=== PATIENT | male | born 1940 | race Caucasian/White ===

== ENCOUNTER 2016-05-30 20:07 | Inpatient (IN) | payer MEDICARE, MEDICAID ==
[~2016-05-30] VITALS: Ht 182.9 cm; Wt 91.2 kg
[~2016-05-30 20:07] MED LIST: ACHYD1T PO; ALPR.25T PO; ALPR0.25 PO; ASP81CT PO; ASP81TEC PO; ASPI-587 PO; ASPI-86; ATOR10TA66 PO; ATRV10T PO; Acetaminophen PO; Aspirin PO; Atorvastatin Calcium PO; BACL10TA PO; CILO100T PO; CLAR-19 PO; CLOP75TA; CLOP75TA PO; CLOP75TA28 PO; CLOP75TA69 PO; CLPD75T PO; DGX.125T PO; DICL100G13 TOP; DIGO-8 PO; DIGO125T PO; DIGO125T91 PO; DIGO250T PO; DIGO250T15 PO; DIGOX PO; ENAL10TA PO; ENAL20TA; ENAL20TA PO; ENAL5TAB PO; ENLP10T; ENLP5T PO; ESOM40SU; EZET10TA5; EZET10TA5 PO; FAMO20TA5 PO; FENO134C PO; FENO134C2 PO; FEXO180T PO; FLUT16SP22 NSEACH; Famotidine PO; GABA-488 PO; GBPN100C PO; GI COCKTAIL; GLIP10TA13 PO; GLIP5TAB13; GLIP5TAB13 PO; GLPZ5T; Glipizide PO; HYDR-1231 PO; HYDR-34 PO; HYDR-3714 PO; HYDR-3812 PO; HYDR-3816 PO; HYDR-707 PO; HYDR-757 PO; HYDR1TAB PO; HYDR1TAB85 PO; HYOS0.1216 PO; HYOS0.3710 PO; IBP800T PO; IBUP200C PO; INSR1U SC; INSU100I29 SQ; INSU100I5 SC; INSU100I5 SQ; INSU100V5 SQ; LEVE1U SQ; LORA10TA7 PO; LOSA25TA15; METF-380 PO; METF500T PO; METO-310 PO; METO-333 PO; METO25TA PO; METO25TA2 PO; METO25TA6 PO; MNTL10T PO; MONT10TA21 PO; MONT10TA24 PO; MTF500T; MTF500T PO; MTP25TSR; MTP25TSR PO; Montelukast Sodium PO; NAPR250T2 PO; NF-ESOM40C; NF-ESOM40C PO; NF-SKEL800 PO; NFPRILOC40 PO; NITR0.4T SL; NITR0.4T50; NTR.4SL; NTR.4SL PO; NTR.4SL SL; OMEG1CAP51 PO; OMEG1CAP74 PO; OMEP40CA36 PO; OMG1KC; ONDA4TAB11 PO; ONDA8TAB9 PO; Omega 3 Polyunsat Fatty Acids PO; PANT40SU PO; PANT40TA PO; PANT40TA2 PO; PANT40TA3 PO; PENT400T2 PO; PNT40TEC PO; PRAV80TA2 PO; PRD20T PO; PRED-501 PO; PROM25SU10 RC; PROP1TAB77 PO; ROPI1TAB PO; ROPI1TAB2 PO; RT-ALBUINH IH; SCR1T1 PO; SITA100T PO; SITA100T12 PO; SITAGLIPTIN PHOSPHATE PO; SUCR1ORA5 PO; TAMS0.4C2 PO; TICA90TA PO; TRAM50TA2 PO; TRAZ-28 PO; TRIA16.5 NS; TRM50T PO; [UNRECOGNIZED DRUG - REMARK]; [UNRECOGNIZED DRUG - REMARK] PO; aspirin
--- OUTSIDE RECORDS SUMMARY | 2016-05-30 20:13 | XMS REPORT | Continuity of Care Document ---
Author Author [facility] Organization [facility] Address Unknown Phone Unavailable Support Name Relationship Address Phone HERONLLUVIA KIM Gabe RIVERA Caregiver [address] [place] [address] DMITRY MEZA MD Caregiver [address] [facility] [place] [address] TYLER TOLENTINO Next Of Kin [address] [place] [address] Insurance Providers Payer Name Policy Number Subscriber Name Relationship Wps Medicare [id number] Castro Tolentino 20 Self / Same As Patient [facility] [employer] [id number] Castro Tolentino Self / Same As Patient Advance Directives Directive Response Recorded Date/Time Advance Directives No 03/19/14 7:42am Health Care Power of Creeler No 03/19/14 7:42am Organ Donor No 03/19/14 7:42am Resuscitation Status Full Code 03/19/14 7:42am Chief Complaint and Reason for Visit Chief Complaint PAD,CAD,DIABETES,HTN Reason for Visit PAD (peripheral artery disease) Problems Medical Problems Problem Onset Date Status Diarrhea Unknown Active Epigastric pain Unknown Active Reflux Unknown Active PAD (peripheral artery disease) Unknown Active Medications Medication Dose Route Sig Days/Qty Instructions Order Date Discontinued Date Status Nitroglycerin 08/14/08 06/17/09 Discontinued [aspirin] 08/14/08 06/17/09 Discontinued Clopidogrel Bisulfate 75 Mg PO SUNDAY, SUNDAY, Sunday08/14/08 Discontinued Metformin HCl 08/14/08 06/17/09 Discontinued Glipizide (Glucotrol) 08/14/08 06/17/09 Discontinued Enalapril Maleate 08/14/08 06/17/09 Discontinued Metoprolol Succinate 08/14/08 06/17/09 Discontinued Ezetimibe 08/14/08 06/17/09 Discontinued Esomeprazole Mag Trihydrate 08/14/08 07/03/09 Discontinued Tramadol HCl 50 - 100 Mg PO FOUR TIMES DAILY 40 Qty 08/14/08 06/17/09 Discontinued Metaxalone 800 Mg PO THREE TIMES A DAY 30 Qty 08/14/08 06/17/09 Discontinued Nitroglycerin 09/15/08 06/17/09 Discontinued Aspirin 09/15/08 06/17/09 Discontinued Clopidogrel Bisulfate 09/15/08 06/17/09 Discontinued Metformin HCl 09/15/08 06/17/09 Discontinued Glipizide 09/15/08 06/17/09 Discontinued Enalapril Maleate 09/15/08 06/17/09 Discontinued Metoprolol Succinate 09/15/08 06/17/09 Discontinued Ezetimibe 09/15/08 06/17/09 Discontinued Esomeprazole Magnesium 09/15/08 06/17/09 Discontinued Fish Oil 09/15/08 03/08/10 Discontinued Acetaminophen/Hydrocodone Bitart 1 - 2 Each PO Q4HR PRN 20 Qty 06/17/09 Discontinued Acetaminophen/Hydrocodone Bitart 1 Each PO Q 4 - 6 HR PRN 30 Qty 06/17/09 Discontinued Nitroglycerin 0.4 Mg PO NEEDED 11/12/08 05/31/10 Discontinued Aspirin 81 Mg PO DAILY 11/12/08 11/03/13 Discontinued Clopidogrel Bisulfate 11/12/08 06/17/09 Discontinued Metformin HCl (Glucophage) 500 Mg PO TWICE A DAY 11/12/08 12/18/12 Discontinued Glipizide (Glucotrol) 5 Mg PO DAILY 11/12/08 05/31/10 Discontinued Enalapril Maleate 20 Mg PO TWICE A DAY 11/12/08 11/03/13 Discontinued Metoprolol Succinate 11/12/08 03/08/10 Discontinued Ezetimibe 10 Mg PO BEDTIME 11/12/08 06/21/11 Discontinued Esomeprazole Magnesium 11/12/08 06/17/09 Discontinued Insulin Determir 25 Unit SQ BEDTIME 07/03/09 11/03/13 Discontinued Omeprazole 40 Mg PO DAILY 07/03/09 03/09/10 Discontinued Losartan Potassium 07/03/09 08/31/09 Discontinued Hyoscyamine Sulfate 1 Each PO GIVE EVERY 6 HR ON SCHEDULE 20 Qty 08/31/09 Discontinued Propoxyphene HCl/Acetaminophen 1 Each PO Q 4 - 6 HRS PRN 60 Qty 08/31/09 Discontinued Ibuprofen 800 Mg PO THREE TIMES A DAY 11/11/09 03/08/10 Discontinued Acetaminophen/Hydrocodone Bitart (Vicodin Hp) 1 Each PO Q 4 - 6 HRS PRN 11/11/09 03/08/10 Discontinued Gabapentin 100 Mg PO BID PRN 11/11/09 03/08/10 Discontinued Clarithromycin 1,000 Mg PO DAILY 02/16/10 03/08/10 Discontinued Fexofenadine HCl 180 Mg PO DAILY 02/16/10 03/08/10 Discontinued Promethazine HCl 1 Supp RC FOUR TIMES DAILY 6 Qty 02/17/10 03/08/10 Discontinued Acetaminophen/Hydrocodone Bitart 1 Each PO Q4HR PRN 20 Qty 02/17/10 Discontinued Ondansetron 4 Mg PO EVERY 6 HOURS PRN 14 Qty 02/18/10 03/08/10 Discontinued Mcfarland-3/Dha/Epa/Fish Oil 2,000 Mg PO TWICE A DAY 03/08/10 03/08/10 Discontinued Fenofibrate (Lofibra) 134 Mg PO DAILY 03/08/10 11/03/13 Discontinued Metoprolol Succinate (Toprol Xl) 1 Each PO DAILY 03/09/10 04/17/12 Discontinued Nitroglycerin 1 Tab PO NEEDED 05/27/10 12/18/12 Discontinued Clopidogrel Bisulfate 75 Mg PO DAILY 05/27/10 06/03/11 Discontinued Ezetimibe 10 Mg PO BEDTIME 05/27/10 06/03/11 Discontinued Alprazolam 0.5 Tab PO DAILY TAKES 1/2 (0.25MG) TABLET DAILY 05/27/10 04/23/13 Discontinued Acetaminophen/Hydrocodone Bitart 1 - 2 Each PO Q4HR PRN 10 Qty 06/21/11 Discontinued Glipizide (Glucotrol) 2.5 - 5 Mg PO DAILY PRN 06/21/11 12/24/12 Discontinued [Gi Cocktail] PRN 11/29/11 04/17/12 Discontinued Montelukast Sodium 10 Mg PO DAILY 30 Qty 03/15/12 12/18/12 Discontinued Triamcinolone Acetonide 16.5 Gm NS TWICE A DAY 03/15/12 12/18/12 Discontinued Pantoprazole Sodium 40 Mg PO DAILY 04/19/12 12/18/12 Discontinued Atorvastatin Calcium 10 Mg PO DAILY 04/19/12 12/18/12 Discontinued Clopidogrel Bisulfate 75 Mg PO DAILY 04/19/12 11/03/13 Discontinued Digoxin (Lanoxin) 250 Mcg PO DAILY 04/19/12 11/03/13 Discontinued Metoprolol Succinate 25 Mg PO DAILY 04/19/12 04/23/13 Discontinued Metformin HCl (Glucophage) 1,000 Mg PO TWICE A DAY TAKES 2 (500MG) TABLETS TWICE DAILY 12/18/12 09/28/13 Discontinued Nitroglycerin 0 SL NEEDED 12/18/12 03/19/14 Discontinued Esomeprazole Magnesium 40 Mg PO DAILY 12/18/12 12/24/12 Discontinued Fluticasone Propionate 1 Spr NSEACH TWICE A DAY 12/18/12 04/23/13 Discontinued [place]farland-3 Fatty Acids/Fish Oil 2,000 Mg PO TWICE A DAY TAKES 2 (1000MG) CAPSULES TWICE DAILY 12/18/12 03/20/14 Discontinued [Green Lizard] NEEDED 12/18/12 04/23/13 Discontinued Hydrocodone Bit/Acetaminophen 1 Tab PO EVERY 6 HOURS PRN PAIN NEEDED FOR PAIN 12/24/12 08/05/13 Discontinued Pantoprazole Sodium 40 Mg PO DAILY 04/23/13 08/05/13 Discontinued Sitagliptin Phosphate 100 Mg PO DAILY 04/23/13 09/28/13 Discontinued Atorvastatin Calcium 10 Mg PO BEDTIME 04/23/13 08/05/13 Discontinued Montelukast Sodium 10 Mg PO DAILY 04/23/13 08/05/13 Discontinued Glipizide (Glucotrol) 5 Mg PO TWICE A DAY 04/23/13 03/20/14 Discontinued Sucralfate 1 Gm PO BEFORE MEALS AND AT BEDTIME 04/23/13 08/05/13 Discontinued Pantoprazole Sodium 40 Mg PO 04/23/13 08/05/13 Discontinued Hyoscyamine Sulfate (Levbid) 1 Each PO THREE TIMES A DAY 04/23/13 Discontinued Famotidine (Pepcid) 1 Each PO TWICE A DAY 60 Qty 07/19/13 08/05/13 Discontinued Ondansetron HCl 8 Mg PO EVERY 6 HOURS PRN NAUSEA/VOMITING 10 Qty 08/05/13 Discontinued Alprazolam 0.125 Mg PO DAILY 08/05/13 11/03/13 Discontinued [Green Lizard] 15 Ml PO DAILY PRN HEARTBURN PRN HEARTBURN 08/05/13 Discontinued Metoprolol Succinate 25 Mg PO DAILY 08/05/13 11/03/13 Discontinued Acetaminophen/Hydrocodone Bitart 1 Each PO Q 4 - 6 HRS PRN 60 Qty CALLED IN TO [facility] 08/12/13 11/03/13 Discontinued Famotidine (Pepcid) 1 Each PO TWICE A DAY 30 Qty 09/14/13 11/03/13 Discontinued Omeprazole 40 Mg PO DAILY 30 Qty 09/14/13 11/03/13 Discontinued Prednisone 40 Mg PO DAILY 8 Qty 09/28/13 11/03/13 Discontinued Hydrocodone Bit/Acetaminophen 1 Tab PO EVERY 4HRS PRN PAIN 10 Qty 09/2811/03/13 Discontinued Famotidine (Pepcid) 20 Mg PO TWICE A DAY 11/03/13 03/20/14 Discontinued Pantoprazole Sodium 40 Mg PO DAILY 11/03/13 03/20/14 Discontinued Metformin HCl 1,000 Mg PO TWICE A DAY 11/03/13 03/19/14 Discontinued Ropinirole Hcl 2 Mg PO BEDTIME TAKES 2 (1MG) TABLETS AT BEDTIME 03/20/14 Discontinued Insulin Determir 27 Units SC BEDTIME 11/03/13 03/20/14 Discontinued Montelukast Sodium 10 Mg PO DAILY 11/03/13 03/20/14 Discontinued Fenofibrate,Micronized 134 Mg PO BEDTIME 11/03/13 03/20/14 Discontinued Digoxin 250 Mcg PO DAILY 11/03/13 02/26/14 Discontinued Atorvastatin Calcium 10 Mg PO DAILY 11/03/13 03/20/14 Discontinued Diclofenac Sod TOP TWICE A DAY PRN BACK PAIN 11/03/13 02/26/14 Discontinued Sitagliptin Phosphate 100 Mg PO DAILY 11/03/13 03/20/14 Discontinued Enalapril Maleate 5 Mg PO TWICE A DAY 11/03/13 03/20/14 Discontinued Metoprolol Tartrate 25 Mg PO DAILY 11/03/13 03/20/14 Discontinued Clopidogrel Bisulfate 75 Mg PO DAILY 11/03/13 11/03/13 Discontinued [digox] 125 Mcg PO DAILY 02/26/14 03/19/14 Discontinued Clopidogrel Bisulfate 75 Mg PO DAILY 02/26/14 03/20/14 Discontinued Aspirin 81 Mg PO DAILY 02/26/14 Active Ibuprofen (Motrin) 400 Mg PO EVERY 6 HOURS PRN PAIN 02/26/14 Active Nitroglycerin 0.4 Mg SL DIRECTED PRN CHEST PAIN TAKE 1 TABLET EVERY 5 MINUTES X 3 DOSES NEEDED FOR CHEST PAIN 03/19/14 03/20/14 Discontinued Digoxin (Lanoxin) 125 Mcg PO DAILY 03/19/14 03/20/14 Discontinued [Acetaminophen] 500 Mg PO FOUR TIMES DAILY PRN MILD PAIN 03/20/14 Active [Aspirin] 81 Mg PO DAILY 03/20/14 Active [Atorvastatin Calcium] 10 Mg PO DAILY@2100 03/20/14 Active Clopidogrel Bisulfate 75 Mg PO DAILY 30 Qty 03/20/14 Active Digoxin 0.125 Mg PO DAILY 30 Qty 03/20/14 Active Enalapril Maleate 5 Mg PO TWICE A DAY 60 Qty 03/20/14 Active [Famotidine] 20 Mg PO TWICE A DAY 03/20/14 Active Fenofibrate 134 Mg PO BEDTIME 30 Qty 03/20/14 Active [Glipizide] 5 Mg PO TWICE A DAY WITH MEALS 03/20/14 Active Insulin Human Regular 0 Unit SC BEFORE MEALS AND AT BEDTIME 1 Qty 03/20 Active Insulin Detemir 27 Unit SQ BEDTIME 1 Qty 03/20/14 Active Metoprolol Tartrate 25 Mg PO DAILY 30 Qty 03/20/14 Active [Montelukast Sodium] 10 Mg PO DAILY 03/20/14 Active Nitroglycerin 0.4 Mg SL DIRECTED PRN CHEST PAIN 20 Qty 03/20/14 Active [[place] 3 Polyunsat Fatty Acids] 2,000 Mg PO TWICE A DAY WITH MEALS Active Pantoprazole Sod 40 Mg PO DAILY 60 Qty 03/20/14 Active Ropinirole Hcl 2 Mg PO BEDTIME 30 Qty 03/20/14 Active [Sitagliptin Phosphate] 100 Mg PO DAILY 03/20/14 Active Social History Social History Problem Response Recorded Date/Time Alcohol Use Denies Use 11/03/2013 9:55am Recreational Drug Use No 11/03/2013 9:55am Recent Foreign Travel No 11/03/2013 9:55am Recent Infectious Disease Exposure No 11/03/2013 9:55am Hospitalization with Isolation Contact 11/24/2013 4:11pm Sexually Transmitted Disease No 11/03/2013 9:55am HIV/AIDS No 11/03/2013 9:55am Smoking Status Former Smoker 03/19/2014 7:42am Do you dip or chew tobacco? No 03/19/2014 7:42am Query Response Start Date Stop Date Smoking Status Former Smoker 03/19/1997 Hospital Discharge Instructions Patient Instructions Physician Instructions New, Converted or Re-Newed RX: Other Patient Instructions: follow-up with Dr. 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 Stiles Goal: turned to normal activities and usual health. Return to [facility]: if there is any bleeding from the groin Discharge Diet: ADA Diet, Cardiac Diet Drink 6-8 Glasses/Fluids/Day: Yes Activity as Tolerated: Yes Appt. to Start Cardiac Rehab: No Plan of Care Discharge Date 03/20/14 3:03pm Disposition 01 HOME, SELF-CARE Instructions/Education Provided CARDIAC CATH DISCHARGE INSTRUC Forms Provided Follow-Up Fax PDI Cardiac Cath Prescriptions See Medications Section Functional Status Query Response Date Recorded Patient Orientation Person Place Time Situation March 20, 2014 3:14pm Comprehension Ability Understands Concepts March 20, 2014 12:00pm Allergies, Adverse Reactions, Alerts Allergen Type Severity Reaction Status Last Updated Penicillins ([id number]) Allergy Unknown Active 08/03/05 morphine Allergy Unknown Active 08/03/05 naproxen ([id number]) Allergy Mild Active 08/14/08 Amoxicillin ([id number]) Allergy Unknown Active 08/03/05 Diclofenac ([id number]) Allergy Mild Active 09/15/08 celecoxib Allergy Mild Active 08/14/08 Rosuvastatin Allergy Mild Active 08/14/08 Immunizations Name Given Type Date of Pneumonia Vaccine 02/22/12 Historical Date of Influenza Vaccine 03/19/13 Historical Hepatitis A No Historical Hepatitis B No Historical Tetanus Booster (TDap) Less than 5yrs Historical pneumococcal polysaccharide PPV23 03/20/14 Administered influenza, split (incl. purified surface antigen) 03/20/14 Administered pneumococcal polysaccharide PPV23 03/20/14 Administered influenza, split (incl. purified surface antigen) 03/20/14 Administered Vital Signs Acute Vital Signs Vital Response Date/Time Temperature (Fahrenheit) 97.1 degrees F (97.6 - 99.5) Temperature (Calculated Celsius) 36.34183 degrees C (36.4 - 37.5) Temperature Source Tympanic Pulse Rate (adult) 66 bpm (60 - 90) Respiratory Rate 20 bpm (12 - 24) O2 Sat by Pulse Oximetry 98 % (88 - 100) Blood Pressure 172/82 mm Hg Pain Pain Intensity 1 Height (Feet) 6 feet Height (Inches) 2.00 inches Height (Calculated Centimeters) 187.632515 cm Weight (Pounds) 187 pounds Weight (Calculated Grams) 92260.774 gm Weight (Calculated Kilograms) 84.393823 kilograms Calculated BMI 24.01 Results Test Source Date Result Interp. Ref. Range Comments Acetaminophen Screen February 18, 2010 7:25am NEGATIVE - APAP= ACETAMINOPHEN/PARACETAMOL Activated Partial Thromboplast Time November 03, 2013 5:18am 24 SEC N 24-35 Has specimen been collected/obtained? Y Alanine Aminotransferase (ALT/SGPT) November 03, 2013 5:18am 44 U/L N 30-65 Has specimen been collected/obtained? Y Albumin November 03, 2013 5:18am 3.8 G/DL N 3.4-5.0 Has specimen been collected/obtained? Y Alkaline Phosphatase November 03, 2013 5:18am 86 U/L N 50-136 Has specimen been collected/obtained? Y Amylase Level September 14, 2013 5:00pm 59 U/L N 25-115 Anisocytosis October 06, 2008 1:49am SLIGHT - Aspartate Amino Transf (AST/SGOT) November 03, 2013 5:18am 24 U/L N 15-37 Has specimen been collected/obtained? Y B-Type Natriuretic Peptide December 18, 2011 5:36am 7.1 PG/ML N 5.0-100.0 BUN/Creatinine Ratio November 03, 2013 5:18am 6 - Has specimen been collected/obtained? Y Band Neutrophils June 17, 2009 2:10am 0 % - Basophils # (Auto) November 03, 2013 5:18am 0.1 10^3/uL N 0.0-0.1 Has specimen been collected/obtained? Y Basophils % (Manual) June 17, 2009 2:10am 0 % - Basophils (%) (Auto) November 03, 2013 5:18am 1 % N 0-10 Has specimen been collected/obtained? Y Blood Urea Nitrogen November 03, 2013 5:18am 9 MG/DL N 7-18 Has specimen been collected/obtained? Y Calcium Level November 03, 2013 5:18am 9.3 MG/DL N 8.5-10.1 Has specimen been collected/obtained? Y Carbon Dioxide Level November 03, 2013 5:18am 22 MMOL/L N 21-32 Has specimen been collected/obtained? Y Chloride Level November 03, 2013 5:18am 100 MMOL/L L 101-110 Has specimen been collected/obtained? Y Cholesterol Level November 04, 2013 5:19am 107 MG/DL N -200 Has specimen been collected/obtained? Y Creatine Kinase MB November 03, 2013 5:18am 0.9 NG/ML N 0.0-3.6 Has specimen been collected/obtained? Y Creatinine November 03, 2013 5:18am 1.6 MG/DL H 0.6-1.3 Has specimen been collected/obtained? Y Digoxin Level August 05, 2013 10:35am 1.1 NG/ML N 0.9-2.0 Direct Bilirubin April 17, 2011 11:55am 0.1 MG/DL N 0.0-0.30 Eosinophils # (Auto) November 03, 2013 5:18am 0.3 10^3/uL N 0.0-0.3 Has specimen been collected/obtained? Y Eosinophils % (Manual) June 17, 2009 2:10am 0 % - Eosinophils (%) (Auto) November 03, 2013 5:18am 3 % N 0-10 Has specimen been collected/obtained? Y Erythrocyte Sedimentation Rate August 26, 2010 12:40pm 6 MM/HR N 0-30 Gamma Glutamyl Transpeptidase October 15, 2005 8:53am 75 U/L N 5.0-85.0 Has specimen been collected/obtained? Y Glucose Level November 03, 2013 5:18am 327 MG/DL H 74-106 Has specimen been collected/obtained? Y HDL Cholesterol November 04, 2013 5:19am 23 MG/DL L 35-60 Has specimen been collected/obtained? Y Hematocrit November 03, 2013 5:18am 42 % N 40-54 Has specimen been collected/obtained? Y Hemoglobin November 03, 2013 5:18am 13.8 G/DL N 13.3-17.7 Has specimen been collected/obtained? Y Hemoglobin A1c November 12, 2008 4:35am 7.1 H % - Indirect Bilirubin April 17, 2011 11:55am 0.1 MG/DL - LDL Cholesterol November 04, 2013 5:19am 53 MG/DL N 0-129 Has specimen been collected/obtained? Y Lipase November 04, 2013 5:19am 405 U/L H 73-393 Lymphocytes # (Auto) November 03, 2013 5:18am 3.7 X 10^3 N 1.0-4.0 Has specimen been collected/obtained? Y Lymphocytes % (Manual) June 17, 2009 2:10am 11 % - Lymphocytes (%) (Auto) November 03, 2013 5:18am 36 % N 12-44 Has specimen been collected/obtained? Y Macrocytosis October 06, 2008 1:49am SLIGHT - Magnesium Level November 03, 2013 5:18am 1.8 MG/DL N 1.8-2.4 Has specimen been collected/obtained? Y Mean Corpuscular Hemoglobin November 03, 2013 5:18am 29 PG N 25-34 Has specimen been collected/obtained? Y Mean Corpuscular Hemoglobin Concent November 03, 2013 5:18am 33 G/DL N 32- 36 Has specimen been collected/obtained? Y Mean Corpuscular Volume November 03, 2013 5:18am 88 FL N 80-99 Has specimen been collected/obtained? Y Mean Platelet Volume November 03, 2013 5:18am 10.1 FL N 7.4-10.4 Has specimen been collected/obtained? Y Monocytes # (Auto) November 03, 2013 5:18am 0.7 X 10^3 N 0.0-1.0 Has specimen been collected/obtained? Y Monocytes % (Manual) June 17, 2009 2:10am 1 % - Monocytes (%) (Auto) November 03, 2013 5:18am 7 % N 0-12 Has specimen been collected/obtained? Y Myoglobin November 03, 2013 5:18am 44 UG/L N 10-92 Has specimen been collected/obtained? Y Neutrophils # (Auto) November 03, 2013 5:18am 5.6 X 10^3 N 1.8-7.8 Has specimen been collected/obtained? Y Neutrophils % (Manual) June 17, 2009 2:10am 88 % - Neutrophils (%) (Auto) November 03, 2013 5:18am 54 % N 42-75 Has specimen been collected/obtained? Y Platelet Count November 03, 2013 5:18am 312 10^3/uL N 130-400 Has specimen been collected/obtained? Y Potassium Level November 03, 2013 5:18am 3.8 MMOL/L N 3.6-5.0 Has specimen been collected/obtained? Y Prostate Specific Antigen July 11, 2007 11:48am 0.85 NG/ML - Prothromb Time International Ratio April 16, 2012 8:15pm 0.9 N 0.8- 1.4 INTERPRETIVE DATASUGGESTED THERAPEUTIC RANGE FOR INR'S : VENOUS THROMBOSIS, PULMONARY EMBOLISM, OR PREVENTION OF SYSTEMIC EMBOLISM (EG. IN ATRIAL FIBRILLATION): 2.0 - 3.0 MECHANICAL PROSTHETIC HEART VALVES: 2.5 - 3.5* *NOTE: INR'S UP TO 4.5 MAY BE NECESSARY IN SELECTED GROUPS OF HIGH RISK PATIENTS. [employer] CONSENSUS CONFERENCE ON ANTITHROMBOTIC THERAPY (2000). Prothrombin Time November 03, 2013 5:18am 13.3 SEC N 12.2-14.7 Has specimen been collected/obtained? Y Red Blood Count November 03, 2013 5:18am 4.73 10^6/uL N 4.35-5.85 Has specimen been collected/obtained? Y Red Cell Distribution Width November 03, 2013 5:18am 14.2 % N 10.0-14.5 Has specimen been collected/obtained? Y Sodium Level November 03, 2013 5:18am 136 MMOL/L N 135-145 Has specimen been collected/obtained? Y Thyroid Stimulating Hormone (TSH) February 18, 2010 7:10am 2.23 UIU/ML N 0.34-5.60 Thyroxine (T4) June 10, 2008 3:30pm 8.8 UG/DL - Total Bilirubin November 03, 2013 5:18am 0.2 MG/DL N 0.0-1.0 Has specimen been collected/obtained? Y Total Creatine Kinase November 03, 2013 5:18am 141 U/L N 1-205 Has specimen been collected/obtained? Y Total Protein November 03, 2013 5:18am 7.7 G/DL N 6.4-8.2 Has specimen been collected/obtained? Y Triglycerides Level November 04, 2013 5:19am 155 MG/DL H 30.0-150.0 Has specimen been collected/obtained? Y Troponin I November 03, 2013 5:18am < 0.10 NG/ML 0.00-0.10 Any elevation of troponin above the limit of the reference range is indicative of myocardial injury from any cause. Significant interval decrease or increase between elevated troponin values at 0 and 6 hours (> 20%) would, in the context of related clinical and EKG findings favor ischemic myocardial injury. Ur Tricyclic Antidepressants Screen February 18, 2010 7:25am NEGATIVE - Urine Amorphous Sediment May 28, 2010 11:13pm RARE DEYVI PHOSPHATE H - Has specimen been collected/obtained? YSpecimen Description CLEAN CATCH Urine Amphetamines Screen February 18, 2010 7:25am NEGATIVE - Urine Bacteria September 14, 2013 5:11pm NEGATIVE /HPF - Has specimen been collected/obtained? YSpecimen Description CLEAN CATCH Urine Barbiturates Screen February 18, 2010 7:25am NEGATIVE - Urine Benzodiazepines Screen February 18, 2010 7:25am NEGATIVE - Urine Bilirubin September 14, 2013 5:11pm NEGATIVE - Has specimen been collected/obtained? YSpecimen Description CLEAN CATCH Urine Casts September 14, 2013 5:11pm NONE /LPF - Has specimen been collected/obtained? YSpecimen Description CLEAN CATCH Urine Clarity September 14, 2013 5:11pm CLEAR - Has specimen been collected /obtained? YSpecimen Description CLEAN CATCH Urine Cocaine Screen February 18, 2010 7:25am NEGATIVE - Urine Color September 14, 2013 5:11pm YELLOW - Has specimen been collected/ obtained? YSpecimen Description CLEAN CATCH Urine Crystals September 14, 2013 5:11pm NONE /LPF - Has specimen been collected/obtained? YSpecimen Description CLEAN CATCH Urine Culture Indicated September 14, 2013 5:11pm NO - Has specimen been collected/obtained? YSpecimen Description CLEAN CATCH Urine Glucose (UA) September 14, 2013 5:11pm 3+ H - Has specimen been collected/obtained? YSpecimen Description CLEAN CATCH Urine Ketones September 14, 2013 5:11pm NEGATIVE - Has specimen been collected/obtained? YSpecimen Description CLEAN CATCH Urine Leukocyte Esterase September 14, 2013 5:11pm 1+ H - Has specimen been collected/obtained? YSpecimen Description CLEAN CATCH Urine Methamphetamines Screen February 18, 2010 7:25am NEGATIVE - Urine Mucus September 14, 2013 5:11pm NEGATIVE /LPF - Has specimen been collected/obtained? YSpecimen Description CLEAN CATCH Urine Nitrate February 18, 2007 2:55pm Negative - Has specimen been collected/obtained? YSpecimen Description CLEAN CATCH Urine Nitrite September 14, 2013 5:11pm NEGATIVE - Has specimen been collected/obtained? YSpecimen Description CLEAN CATCH Urine Opiates Screen February 18, 2010 7:25am NEGATIVE - Urine Phencyclidine Screen February 18, 2010 7:25am NEGATIVE - Phencyclidine testing by this method can showcross-reactivity with several common medications such as venlafaxine, dextromethorphan, and diphenhydramine. Submission of any positive sample for confirmatory testing is recommended. Urine Protein September 14, 2013 5:11pm NEGATIVE - Has specimen been collected/obtained? YSpecimen Description CLEAN CATCH Urine RBC September 14, 2013 5:11pm NONE /HPF - Has specimen been collected /obtained? YSpecimen Description CLEAN CATCH Urine Specific [place] September 14, 2013 5:11pm 1.010 L - Has specimen been collected/obtained? YSpecimen Description CLEAN CATCH Urine Squamous Epithelial Cells March 14, 2011 6:00pm RARE - Has specimen been collected/obtained? YSpecimen Description CLEAN CATCH Urine Urobilinogen September 14, 2013 5:11pm NORMAL MG/DL - Has specimen been collected/obtained? YSpecimen Description CLEAN CATCH Urine WBC September 14, 2013 5:11pm 0-2 /HPF - Has specimen been collected/ obtained? YSpecimen Description CLEAN CATCH Urine pH September 14, 2013 5:11pm 6 - Has specimen been collected/obtained ? YSpecimen Description CLEAN CATCH VLDL Cholesterol November 04, 2013 5:19am 31 MG/DL N 5-40 Has specimen been collected/obtained? Y White Blood Count November 03, 2013 5:18am 10.4 10^3/uL N 4.3-11.0 Has specimen been collected/obtained? Y Pathology Consult Specimen November 22, 2007 1:24pm See report - Has specimen been collected/obtained? YComments to Dispersion Mixer: Y Serum Alcohol February 18, 2010 7:10am < 5 MG/DL -5 Glucometer November 05, 2013 5:57am 130 MG/DL H 70-110 Lab Scanned Report April 16, 2012 9:07pm LAB Reports [id number] - Estimat Glomerular Filtration Rate November 03, 2013 5:18am 43 - GFR INTERPRETIVE DATA UNITS FOR ESTIMATED GFR (eGFR): mL/min/1.73 M2 REFERENCE RANGE FOR ESTIMATED GFR (eGFR) eGFR NORMAL eGFR >60 MODERATELY DECREASED eGFR 30-59 SEVERLY DECREASED eGFR 15-29 KIDNEY FAILURE <15 (OR DIALYSIS) Blood Morphology Comment June 17, 2009 2:10am NORMAL - Urine Methadone Screen February 18, 2010 7:25am NEGATIVE - Creatine Kinase April 17, 2012 7:28am 152 U/L N 1-205 Urine Cannabinoids Screen February 18, 2010 7:25am NEGATIVE - Cardiac Panel Pathologist Review April 16, 2012 8:15pm SEE CARDIAC PATH REV - Urine RBC (Auto) September 14, 2013 5:11pm NEGATIVE - Has specimen been collected/obtained? YSpecimen Description CLEAN CATCH INR Comment November 03, 2013 5:18am 1.0 N 0.8-1.4 INTERPRETIVE DATASUGGESTED THERAPEUTIC RANGE FOR INR'S: VENOUS THROMBOSIS, PULMONARY EMBOLISM, OR PREVENTION OF SYSTEMIC EMBOLISM (EG. IN ATRIAL FIBRILLATION): 2.0 - 3.0 MECHANICAL PROSTHETIC HEART VALVES: 2.5 - 3.5* *NOTE: INR'S UP TO 4.5 MAY BE NECESSARY IN SELECTED GROUPS OF HIGH RISK PATIENTS. [employer] CONSENSUS CONFERENCE ON ANTITHROMBOTIC THERAPY (2000). MRSA Screen Nasal August 05, 2013 10:35am Gram Stain Cyst/Abscess-Bursa September 28, 2013 6:45pm Procedures Procedure Status Date Provider(s) Tracing only of electrocardiogram completed 03/19/14 DMITRY MEZA MD Encounters Encounter Location Date/Time Discharged Inpatient Via [facility] 03/19/14 9:12am Registered Clinic Via [facility] 03/12/14 3:08pm Recent Diagnosis PAD (peripheral artery disease)
[2016-05-30] MEDS ORDERED: ASPIRIN 81 MG CHEW (CHILDREN'S ASA) PO ONE (20:30)
[2016-05-30] MEDS ORDERED: RX-NITROGLYCERIN 0.4 MG TAB BTL 25'S SL PRN (20:30)
[2016-05-30] MEDS ORDERED: NS IV 1000 ML 1,000 ML IV ONE ×2 (20:35→21:03)
[2016-05-30 20:39] LABS: BASOPHILS % (AUTO) 0 % (0-10); EOSINOPHILS # (AUTO) 0.1 10^3/uL (0.0-0.3); EOSINOPHILS % (AUTO) 1 % (0-10); LYMPHOCYTES # (AUTO) 1.4 X 10^3 (1.0-4.0); LYMPHOCYTES % (AUTO) 10 % (12-44); MEAN CORPUSCULAR HEMOGLOBIN 30 PG (25-34); MEAN CORPUSCULAR HGB CONC 34 G/DL (32-36); MEAN CORPUSCULAR VOLUME 89 FL (80-99); MEAN PLATELET VOLUME 10.4 FL (7.4-10.4); MONOCYTES # (AUTO) 0.8 X 10^3 (0.0-1.0); MONOCYTES % (AUTO) 6 % (0-12); NEUTROPHILS % (AUTO) 83 % (42-75); PLATELET COUNT 257 10^3/uL (130-400); RED CELL DISTRIBUTION WIDTH 13.5 % (10.0-14.5); WHITE BLOOD COUNT 13.2 10^3/uL (4.3-11.0)
[2016-05-30 20:50] LABS: INR 1.1 (0.8-1.4); PROTHROMBIN TIME PATIENT 13.6 SEC (12.2-14.7)
--- NOTE | 2016-05-30 20:56 | Diagnostic Imaging Report ---
INDICATION: Chest pain. Comparison with 03/22/2016. FINDINGS: Median sternotomy changes are present. The heart is not enlarged. There is mild obstructive interstitial lung disease. There are no acute infiltrates. No pleural effusion. No pulmonary edema. There is embedded cardiac monitor technician noted over the left chest. IMPRESSION: Postoperative residue with no changes to suggest congestive failure or pneumonia. Dictated by: Dictated on workstation # [id number]
[2016-05-30 21:01] LABS: ALANINE AMINOTRANSFERASE 20 U/L (0-55); ALBUMIN 4.1 G/DL (3.2-4.5); AMYLASE 100 U/L (25-125); ANION GAP 11 MMOL/L (5-14); ASPARTATE AMINO TRANSFERASE 17 U/L (5-34); BILIRUBIN,TOTAL 0.6 MG/DL (0.1-1.0); BLOOD UREA NITROGEN 24 MG/DL (7-18); BUN/CREATININE RATIO 10; CALCIUM 9.5 MG/DL (8.5-10.1); CARBON DIOXIDE 16 MMOL/L (21-32); CHLORIDE 108 MMOL/L (98-107); CREATINE KINASE 125 U/L (30-200); CREATININE SERUM 2.43 MG/DL (0.60-1.30); GFR ESTIMATED 26; LIPASE 162 U/L (8-78); MAGNESIUM 1.8 MG/DL (1.8-2.4); POTASSIUM 4.8 MMOL/L (3.6-5.0); SODIUM 135 MMOL/L (135-145)
[2016-05-30 21:03] LABS: GLUCOSE 486 MG/DL (70-105)
[2016-05-30 21:05] LABS: TROPONIN I < 0.30 NG/ML (<0.30)
[2016-05-30] MEDS ORDERED: inSUlin (REGULAR) HUMAN 1 UNIT/0.01 ML (CHARGE PER UNIT) IV ONE (21:15)
[2016-05-30 21:31] LABS: ABG BASE EXCESS -6.9 MMOL/L (-2.5-2.5); ABG HCO3 18 MMOL/L (23-27); ABG OXYGEN SATURATION 96 % (94-100); ABG PCO2 34 MMHG (35-45); ABG PO2 79 MMHG (79-93); ABG TCO2 19.1 MMOL/L (21.0-31.0)
[2016-05-30 21:32] LABS: ABG PH 7.34 (7.37-7.43)
[2016-05-30 21:33] LABS: ALLENS TEST YES-POS; PATIENT TEMP 97.8
[2016-05-30 22:33] VITALS: BP 123/73
[2016-05-30 22:45] VITALS: BP 105/78
[2016-05-30 23:00] VITALS: BP 111/79
[2016-05-30 23:15] VITALS: BP 122/78
[2016-05-30] MEDS: DEXTROSE 10% IV SOLUTION 1,000 ML IV SCH (23:15)
[2016-05-30] MEDS ORDERED: POTASSIUM CL 10MEQ/50ML IVPB X 4 (TOTAL 40 MEQ) IV SCH (23:15)
[2016-05-30] MEDS: 1/2 NS W/KCL 20 MEQ/L 1,000 ML IV SCH (23:15)
[2016-05-30] MEDS ORDERED: REGULAR inSUlin DRIP 250 UNITS/NS 250 ML IV SCH ×2 (23:15)
[2016-05-30] MEDS ORDERED: ONDANSETRON 4 MG/2 ML (SDV) Z0FRAN IV PRN (23:15)
[2016-05-30] MEDS: D5 1/2 NS W/KCL 20 MEQ/L 1,000 ML IV SCH (23:15)
[2016-05-30] MEDS ORDERED: NS IV 1000 ML X 1 WIDE OPEN IV ONE (23:15)
[2016-05-30] MEDS ORDERED: NITROGLYCERIN SUBLINGUAL 0.4 MG TAB (NITROSTAT) SL PRN (23:15)
[2016-05-30 23:30] VITALS: BP 133/86
[2016-05-30 23:34] LABS: CALCIUM 8.9 MG/DL (8.5-10.1); CREATININE SERUM 2.05 MG/DL (0.60-1.30); POTASSIUM 4.5 MMOL/L (3.6-5.0)
[2016-05-31] VITALS (20 sets, daily range): BP systolic 100–188; BP diastolic 61–102
[2016-05-31] MEDS ORDERED: inSUlin DETERMIR 1 UNIT/0.01 ML (LEVEMIR) CHARGE PER UNIT SQ ONE (00:45)
[2016-05-31 00:52] LABS: BILIRUBIN,URINE NEGATIVE (NEGATIVE); KETONES,URINE NEGATIVE (NEGATIVE); LEUKOCYTE ESTERASE ,URINE NEGATIVE (NEGATIVE); NITRITE,URINE NEGATIVE (NEGATIVE); PH,URINE 5 (5-9); PROTEIN,URINE NEGATIVE (NEGATIVE); UROBILINOGEN,URINE NORMAL (NORMAL)
[2016-05-31 02:28] LABS: BASOPHILS % (AUTO) 0 % (0-10); EOSINOPHILS # (AUTO) 0.2 10^3/uL (0.0-0.3); EOSINOPHILS % (AUTO) 2 % (0-10); LYMPHOCYTES # (AUTO) 1.8 X 10^3 (1.0-4.0); LYMPHOCYTES % (AUTO) 21 % (12-44); MEAN CORPUSCULAR HEMOGLOBIN 30 PG (25-34); MEAN CORPUSCULAR HGB CONC 33 G/DL (32-36); MEAN CORPUSCULAR VOLUME 90 FL (80-99); MEAN PLATELET VOLUME 10.2 FL (7.4-10.4); MONOCYTES # (AUTO) 0.8 X 10^3 (0.0-1.0); MONOCYTES % (AUTO) 9 % (0-12); NEUTROPHILS # (AUTO) 5.9 X 10^3 (1.8-7.8); NEUTROPHILS % (AUTO) 68 % (42-75); PLATELET COUNT 217 10^3/uL (130-400); RED BLOOD COUNT 4.47 10^6/uL (4.35-5.85); RED CELL DISTRIBUTION WIDTH 13.4 % (10.0-14.5); WHITE BLOOD COUNT 8.7 10^3/uL (4.3-11.0)
[2016-05-31 02:50] LABS: ALBUMIN 3.5 G/DL (3.2-4.5); BILIRUBIN,TOTAL 0.4 MG/DL (0.1-1.0); CALCIUM 8.5 MG/DL (8.5-10.1); CREATININE SERUM 1.97 MG/DL (0.60-1.30); MAGNESIUM 1.7 MG/DL (1.8-2.4); PHOSPHORUS 2.5 MG/DL (2.3-4.7); TOTAL PROTEIN 5.8 G/DL (6.4-8.2)
--- NOTE | 2016-05-31 02:52 | ED Chest Pain ---
General Chief Complaint: Chest Pain Stated Complaint: CHEST PAIN, DEHYDRATION W/ ACUTE ON CHRONIC RENAL Nursing Triage Note: PT C/O CP SINCE 1300 TODAY. HE DENIES ANY N/V OR SOA. Nursing Sepsis Screen: No Definite Risk Source: patient History of Present Illness Time seen by provider: 20:17 Initial Comments PT ARRIVES VIA POV FROM HOME PT C/O CHEST PAIN SINCE 1300 TODAY PAIN COMES AND GOES AND IS NOT PRESENT NOW HAS NTG AT HOME BUT HAS NOT TAKEN ANY TODAY NOTHING WORSENS OR IMPROVES PAIN HAS HAD SLIGHT SHORTNESS OF BREATH + SWEATS NO NAUSEA CHRONIC ANKLE SWELLING IS UNCHANGED. NO CALF PAIN HEART FELT LIKE IT WAS BEATING HARD, BUT NOT RACING OR SKIPPING PT HAS EXTENSIVE CARDIOVASCULAR HISTORY PT HAS HAD CA X 3 WITH CABG, CORONARY STENT X 1, BALLOON ANGIOPLASTY X 1 PT HAS PVD WITH RIGHT LEG STENT X 1 PT ALSO HAS A :"REVEAL" DEVICE/ RECORDER IN PLACE PT HAS BEEN ILL ALL DAY WITH DIARRHEA--STATES HE HAS HAD BETWEEN 5 AND 10 STOOLS TODAY. NO BLACK/BLOODY/TARRY STOOLS NO NAUSEA/VOMITING NO FEVER NO ABDOMINAL PAIN HAS HAD DIARRHEA FOR THE LAST 3 WEEKS NO SUSPICIOUS FOODS PCP: DR. ROUSE ACTUARIAL ANALYST: DR. GARCIA Allergies and Home Medications Allergies Coded Allergies: celecoxib (Unverified Allergy, Mild, TAKES ASPIRIN AT HOME, 12/21/14) diclofenac (Unverified Allergy, Mild, TAKES ASPIRIN AT HOME, 12/21/14) naproxen (Unverified Allergy, Mild, TAKES ASPIRIN AT HOME, 12/21/14) rosuvastatin (Unverified Allergy, Mild, 08/14/08) Penicillins (Verified Allergy, Unknown, 08/03/05) amoxicillin (Verified Allergy, Unknown, 08/03/05) morphine (Verified Allergy, Unknown, TAKES HYDROCODONE AT HOME, 07/17/14) Home Medications Albuterol Sulfate 8.5 Gm Hfa.aer.ad #1 1-2 PUFF IH Q4H PRN PRN SHORTNESS OF BREATH Prescribed by: CHARO SCHNEIDER on 03/09/16 180 Aspirin 81 Mg Tablet. 81 MG PO DAILY (Reported) Baclofen 10 Mg Tablet 10 MG PO TID PRN PRN MUSCLE SPASMS (Reported) Cilostazol 100 Mg Tablet 100 MG PO BID (Reported) Clopidogrel Bisulfate 75 Mg Tablet 75 MG PO DAILY (Reported) Digoxin 125 Mcg Tablet 125 MCG PO DAILY (Reported) Enalapril Maleate 10 Mg Tablet 10 MG PO BID (Reported) Fenofibrate,Micronized 134 Mg Capsule 134 MG PO DAILY (Reported) Gabapentin 300 Mg Capsule 300 MG PO HS (Reported) Glipizide 10 Mg Tablet 10 MG PO DAILY (Reported) Hydrocodone/Acetaminophen 1 Each Tablet 1 TAB PO TID PRN PRN PAIN (Reported) Insulin Detemir 100 Unit/1 Ml Insuln.pen 43 UNIT SQ HS (Reported) Metoprolol Tartrate 25 Mg Tablet 12.5 MG PO DAILY (Reported) TAKES 1/2 OF A (25 MG) Montelukast Sodium 10 Mg Tablet 10 MG PO DAILY (Reported) Naproxen 250 Mg Tablet 250 MG PO BID PRN PRN PAIN (Reported) Nitroglycerin 0.4 Mg Tab.subl 0.4 MG SL UD PRN PRN CHEST PAIN (Reported) [place]-3/Dha/Epa/Fish Oil 1,000 Mg Capsule 2,000 MG PO BID (Reported) TAKES 2 (1000MG) CAPSULE Pantoprazole Sodium 40 Mg Tablet.dr 40 MG PO DAILY (Reported) Pentoxifylline 400 Mg Tablet.er 400 MG PO TID (Reported) Pravastatin Sodium 80 Mg Tablet 80 MG PO HS (Reported) Sitagliptin Phosphate 100 Mg Tablet 100 MG PO DAILY (Reported) Tamsulosin HCl 0.4 Mg Cap.er.24h 0.4 MG PO 1730 (Reported) Trazodone HCl 50 Mg Tablet 50 MG PO HS (Reported) Review of Systems Constitutional: no symptoms reportedNo chills, diaphoresisNo dizziness, No fever, malaise EENTM: No Symptoms Reported Respiratory: See HPI Shortness of Air Cardiovascular: See HPI EdemaDenies Irregular Heart Rate, Denies Lightheadedness, PalpitationsDenies Syncope Gastrointestinal: See HPIDenies Abdominal Pain, DiarrheaDenies Nausea, Denies Poor Appetite, Denies Vomiting Genitourinary: No Symptoms Reported Musculoskeletal: no symptoms reported Skin: no symptoms reported Psychiatric/Neurological: No Symptoms Reported Endocrine: No Symptoms Reported Hematologic/Lymphatic: No Symptoms Reported Past Gyaszko-Abjwpk-Tvadkf Hx Patient Social History Alcohol Use: Denies Use Recreational Drug Use: No Smoking Status: Former Smoker (3 PPD, QUIT A FEW YEARS AGO) Type Used: Cigarettes Former Smoker/When Quit: May 31, 1999 Recent Foreign Travel: No Contact w/Someone Who Travel: No Recent Infectious Disease Expo: No Recent Hopitalizations: Yes (03/2016) Physical Abuse Screen: No Sexual Abuse: No Immunizations Up To Date Tetanus Booster (TDap): More than 5yrs PED Vaccines UTD: No Date of Pneumonia Vaccine: Jun 14, 2015 Date of Influenza Vaccine: Feb 12, 2016 Seasonal Allergies Seasonal Allergies: Yes Surgeries HX Surgeries: Yes (CARDIAC CATHS; 4 VESSEL CABG 1999; CORONARY STENT X1, CORONARY BALLOON ANGIOPLASTY X 2; RIGHT LEG STENT X 1 AND ANGIOPLASTY ; HERNIA REPAIR AND HIATAL HERNIA REPAIR; BACK SURGERY; LEFT SHOULDER SURGERY; BILATERAL CARPAL TUNNEL;COLONOSCOPY/POLYPECTOMY; CATARACTS; "REVEAL" DEVICE /RECORDER IMPLANTED ) Surgeries: Abdominal, Cardiac, CABG, Coronary Stent, Eye Surgery, Gallbladder, Open Heart Surgery, Orthopedic, Vascular Surgery Respiratory Hx Respiratory Disorders: Yes (CHRONIC DYSPNEA ON EXERTION) Respiratory Disorders: Sleep Apnea, COPD Cardiovascular Hx Cardiac Disorders: Yes (4 VESSEL CABG 1999, PLUS CORONARY STENT X 1 AND ANNGIOPLASTY X 2; RIGHT LEG STENT X 1 AND ANGIOPLASTY; CAROTID DISEASE-NO INTERVENTION) Cardiac Disorders: Atrial Fibrillation, Coronary Artery Disease, Heart Attack, High Cholesterol, Hypertension, Peripheral Vascular Neurological Hx Neurological Disorders: Yes (POSSIBLE STROKE/ TIA) Neurological Disorders: Stroke, TIA Reproductive System Hx Reproductive Disorders: No Sexually Transmitted Disease: No HIV/AIDS: No Genitourinary Hx Genitourinary Disorders: Yes (RENAL INSUFFICIENCY) Genitourinary Disorders: Benign Prostatic Hyperpl, Prostate Problems, Renal Failure Gastrointestinal Hx Gastrointestinal Disorders: Yes (GASTROPARESIS; GASTRITIS; DUODENITIS; COLON POLYPECTOMY) Gastrointestinal Disorders: Gastroesophageal Reflux, Pancreatitis, Polyps Musculoskeletal Hx Musculoskeletal Disorders: Yes (OLECRANON BURSITIS, CHRONIC NECK PAIN, DISH SYNDROME) Musculoskeletal Disorders: Arthritis, Chronic Back Pain Endocrine Hx Endocrine Disorders: Yes Endocrine Disorders: Diabetes, Insulin dep HEENT HX ENT Disorders: Yes (SINUS PROBLEMS) HEENT Disorders: Cataract Loss of Vision: Denies Hearing Impairment: Denies Cancer Hx Cancer: No Psychosocial Hx Psychiatric Problems: Yes Behavioral Health Disorders: Anxiety Integumentary HX Skin/Integumentary Disorder: No Blood Transfusions Hx Blood Disorders: No Adverse Reaction to a Blood Tr: No Family Medical History Family Medial History: Cancer G8 BROTHER Cataract 19 FATHER 19 MOTHER G8 BROTHER G8 BROTHER G8 SISTER Congestive heart failure 19 FATHER 19 MOTHER Family history: Arthritis 19 FATHER 19 MOTHER G8 BROTHER G8 BROTHER G8 SISTER G8 SISTER DAUGHTER SON Family history: Breast disease DAUGHTER Family history: Cardiovascular disease 19 FATHER Family history: Diabetes mellitus 19 FATHER G8 BROTHER G8 SISTER Family history: Hypertension 19 FATHER 19 MOTHER G8 BROTHER G8 BROTHER G8 SISTER G8 SISTER DAUGHTER SON Family history: Thyroid disorder DAUGHTER Heart disease 19 FATHER 19 MOTHER G8 BROTHER Hypercholesterolemia 19 FATHER 19 MOTHER G8 BROTHER G8 BROTHER G8 SISTER Myocardial infarction 19 FATHER 19 MOTHER G8 BROTHER No Family History of: Abdominal aortic aneurysm [place]'s disease Alcoholism Aphasia Cancer of colon Chest pain Congenital heart disease Cystic fibrosis Dementia Dysphagia Family history: Allergy Family history: Alzheimer's disease Family history: Asthma Family history: Coronary thrombosis Family history: Gastrointestinal disease Family history: Glaucoma Family history: Osteoporosis Headache Hearing loss Hereditary disease History of - anemia History of - disorder History of - respiratory disease History of drug abuse Human immunodeficiency virus (HIV) seropositivity Infertile Kidney disease Malignant neoplasm of lung Parkinson's disease Prostate cancer Psychotic disorder Seizure disorder Stroke Tuberculosis Visual impairment Physical Exam Vital Signs Vital Sign - Last 12Hours 05/30/16 20:20 Temp 98.1 Pulse 102 Resp 14 B/P 105/72 Pulse Ox 96 O2 Delivery Room Air Capillary Refill : Less Than 3 Seconds General Appearance: No Apparent Distress WD/WN Other (DOES NOT APPEAR TO BE IN ANY DISCOMFORT OR DISTRESS AND DOES NOT APPEAR ILL) HEENT: PERRL/EOMI Neck: Full Range of Motion Normal Inspection Non Tender Supple Respiratory: Chest Non Tender Normal Breath Sounds No Accessory Muscle Use No Respiratory Distress Cardiovascular: Regular Rate, Rhythm No Edema No JVD No Murmur Normal Peripheral Pulses Gastrointestinal: Normal Bowel Sounds No Organomegaly No Pulsatile Mass Non Tender Soft Extremity: Normal Capillary Refill Normal Inspection Normal Range of Motion Non Tender No Calf Tenderness No Pedal Edema Neurologic/Psychiatric: Alert Oriented x3 No Motor/Sensory Deficits Normal Mood/Affect 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 Norm as Tested Skin: Normal Color Warm/Dry Tattoos/Piercings (TATTOOS) Progress/Results/Core Measures Results/Orders Lab Results Laboratory Tests Test 05/30/16 00:07 05/30/16 20:34 Range/Units Lactic Acid Level 0.8 0.5-2.0 MMOL/L Activated Partial Thromboplast Time 26 24-35 SEC Alanine Aminotransferase (ALT/SGPT) 20 0-55 U/L Albumin 4.1 3.2-4.5 G/DL Alkaline Phosphatase 64 40-136 U/L Amylase Level 100 25-125 U/L Anion Gap 11 5-14 MMOL/L Aspartate Amino Transf (AST/SGOT) 17 5-34 U/L B-Type Natriuretic Peptide 26.2 <100.0 PG/ML BUN/Creatinine Ratio 10 Basophils # (Auto) 0.0 0.0-0.1 10^3/uL Basophils (%) (Auto) 0 0-10 % Blood Urea Nitrogen 24 H 7-18 MG/DL Calcium Level 9.5 8.5-10.1 MG/DL Carbon Dioxide Level 16 L 21-32 MMOL/L Chloride Level 108 H 98-107 MMOL/L Creatine Kinase MB 3.7 <6.6 NG/ML Creatinine 2.43 H 0.60-1.30 MG/DL Eosinophils # (Auto) 0.1 0.0-0.3 10^3/uL Eosinophils (%) (Auto) 1 0-10 % Estimat Glomerular Filtration Rate 26 Glucose Level 486 *H 70-105 MG/DL Hematocrit 45 40-54 % Hemoglobin 15.2 13.3-17.7 G/DL INR Comment 1.1 0.8-1.4 Lipase 162 H 8-78 U/L Lymphocytes # (Auto) 1.4 1.0-4.0 X 10^3 Lymphocytes (%) (Auto) 10 L 12-44 % Magnesium Level 1.8 1.8-2.4 MG/DL Mean Corpuscular Hemoglobin 30 25-34 PG Mean Corpuscular Hemoglobin Concent 34 32-36 G/DL Mean Corpuscular Volume 89 80-99 FL Mean Platelet Volume 10.4 7.4-10.4 FL Monocytes # (Auto) 0.8 0.0-1.0 X 10^3 Monocytes (%) (Auto) 6 0-12 % Neutrophils # (Auto) 11.0 H 1.8-7.8 X 10^3 Neutrophils (%) (Auto) 83 H 42-75 % Platelet Count 257 130-400 10^3/uL Potassium Level 4.8 3.6-5.0 MMOL/L Prothrombin Time 13.6 12.2-14.7 SEC Red Blood Count 5.10 4.35-5.85 10^6/uL Red Cell Distribution Width 13.5 10.0-14.5 % Sodium Level 135 135-145 MMOL/L Total Bilirubin 0.6 0.1-1.0 MG/DL Total Creatine Kinase 125 30-200 U/L Total Protein 7.0 6.4-8.2 G/DL Troponin I < 0.30 <0.30 NG/ML White Blood Count 13.2 H 4.3-11.0 10^3/uL My Orders Orders-ROMAIN KNIGHT DO Amylase (05/30/16 20:20) Cbc With Automated Diff (05/30/16 20:20) Comprehensive Metabolic Panel (05/30/16 20:20) Creatine Kinase (05/30/16 20:20) Creatine Kinase Mb (05/30/16 20:20) Lipase (05/30/16 20:20) Partial Thromboplastin Time (05/30/16 20:20) Protime With Inr (05/30/16 20:20) Troponin I (05/30/16 20:20) Chest 1 View, Ap/Pa Only (05/30/16 20:20) O2 (05/30/16 20:20) Ekg Tracing (05/30/16 20:20) Aspirin Chewable Tablet (Baby Aspirin Ch (05/30/16 20:30) Rx-Nitroglycerin Sl Tabs (Rx-Nitrostat S (05/30/16 20:30) BNP (05/30/16 20:20) Monitor-Rhythm Ecg Trace Only (05/30/16 20:20) Magnesium (05/30/16 20:20) Saline Lock/Iv-Start (05/30/16 20:35) Ns Iv 1000 Ml (Sodium Chloride 0.9%) (05/30/16 20:35) Ns Iv 1000 Ml (Sodium Chloride 0.9%) (05/30/16 21:03) Insulin (Regular) Human (Humulin R (Per (05/30/16 21:15) Medications Given in ED Current Medications Medications Dose Ordered Sig/Alka Route Start Time Stop Time Status Last Admin Dose Admin Aspirin 324 mg 324 mg ONCE ONCE PO 05/30/16 20:30 05/30/16 20:31 DC 05/30/16 20:43 324 MG Insulin Human Regular 20 unit ONCE ONCE IV 05/30/16 21:15 05/30/16 21:16 DC 05/30/16 21:20 20 UNIT Sodium Chloride 1,000 ml @ 0 mls/hr Q0M ONCE IV 05/30/16 20:35 05/30/16 20:36 DC 05/30/16 20:43 0 MLS/HR Sodium Chloride 1,000 ml @ 0 mls/hr Q0M ONCE IV 05/30/16 21:03 05/30/16 21:04 DC 05/30/16 21:20 0 MLS/HR Vital Signs/I&O Vital Sign - Last 12Hours 05/30/16 05/30/16 20:20 20:20 Temp 98.1 Pulse 102 Resp 14 B/P 105/72 Pulse Ox 96 O2 Delivery Room Air Room Air Blood Pressure Mean: 74 Point of Care Testing Finger Stick Blood Glucose: 170 Blood Glucose Action Taken: USED VALUE FROM LABS DRAWN Progress Note : Progress Note NO CHEST PAIN DURING ENTIRE ER STAY NO SHORTNESS OF BREATH DURING ER STAY NO SWEATS DURING ER STAY ECG Initial ECG Impression Time: 20:25 Initial ECG Rate: 103 Initial ECG Rhythm: S.Tach Initial ECG Comparisson: Unchanged Diagnostic Imaging Comments CXR--NO ACUTE PROCESS, PENDING RADIOLOGIST REVIEW Reviewed: Reviewed by Me Departure Communication Progress Notes 2109--SPOKE WITH DR. ROUSE, ACCEPTS PT FOR ADMIT. Impression Impression: Primary Impression: Chest pain Additional Impressions: DKA (diabetic ketoacidoses) IDDM (insulin dependent diabetes mellitus) Acute on chronic renal failure Dehydration Enteritis Hx of coronary artery disease Disposition: ADMITTED INPATIENT Condition: Improved Decision to Admit Reason: Admit from ER (General) Decision to Admit/Date: May 30, 2016 Time/Decision to Admit Time: 21:10 Departure-Patient Inst. Referrals: LLUVIA ROUSE DO (PCP) Primary Care Physician ROMAIN KNIGHT DO May 31, 2016 02:52
[2016-05-31 02:57] LABS: MYOGLOBIN SERUM 155.6 NG/ML (10.0-92.0)
[2016-05-31] MEDS: D5 1/2 NS W/KCL 20 MEQ/L 1,000 ML IV SCH ×3 (02:59→12:46)
[2016-05-31] MEDS: 1/2 NS W/KCL 20 MEQ/L 1,000 ML IV SCH ×3 (02:59→12:46)
[2016-05-31] MEDS: fentaNYL INJECTION 100 MCG/2 ML AMP IV PRN ×2 (04:04→11:48)
[2016-05-31] MEDS: MAGNESIUM 1 GM/100 ML IVPB 100 ML IV SCH ×2 (04:05→05:06)
[2016-05-31] MEDS: NS IV 1000 ML 1,000 ML IV SCH ×4 (05:07→15:56)
[2016-05-31] MEDS ORDERED: POTASSIUM CL 10MEQ/50ML IVPB 50 ML IV SCH (06:00)
[2016-05-31] MEDS ORDERED: KCL 20 MEQ TAB (K-DUR) PO SCH (06:00)
[2016-05-31] MEDS ORDERED: MAGNESIUM 1 GM/100 ML IVPB 100 ML IV SCH (06:00)
--- NOTE | 2016-05-31 07:42 | Progress Note (SOAP) ---
Subjective Subjective/Events-last exam patient came out to the emergency room. Patient said that just got sick. Patient states he had chest pain. Patient sees delivery associate Dr. Salazar. Patient also had diarrhea 10 times. Chest pain was for one hour no radiation. Patient recently had diarrhea when she was in hospital and had C. difficile. Patient diabetes out of control. Patient has renal insufficiency now. Patient has leukocytosis and hypomagnesemia. Family history has diabetes and heart disease Objective Exam Vital Signs Date Time Temp Pulse Resp B/P Pulse Ox O2 Delivery O2 Flow Rate FiO2 05/31/16 06:00 71 27 129/88 98 Room Air 05/31/16 05:00 69 8 104/64 94 Room Air 05/31/16 04:00 96 Room Air 05/31/16 04:00 96.8 66 12 107/71 94 Room Air 05/31/16 03:00 61 9 101/63 96 Room Air 05/31/16 02:00 78 10 101/61 96 Room Air 05/31/16 01:30 78 11 110/65 95 Room Air 05/31/16 01:00 76 8 113/68 97 Room Air 05/31/16 01:00 76 05/31/16 00:30 74 9 111/68 97 Room Air 05/31/16 00:00 96.9 74 18 100/69 97 Room Air 05/31/16 00:00 96 Room Air 05/30/16 23:30 72 11 133/86 97 Room Air 05/30/16 23:15 69 12 122/78 98 Room Air 05/30/16 23:13 69 05/30/16 23:00 72 35 111/79 96 Room Air 05/30/16 22:45 70 13 105/78 98 Room Air 05/30/16 22:33 96.8 76 13 123/73 98 Room Air 05/30/16 22:30 97 Room Air 05/30/16 22:25 98.1 90 14 96 Room Air 05/30/16 20:20 98.1 102 14 105/72 96 Room Air 05/30/16 20:20 Room Air I & O 05/31/16 07:00 Intake Total 3490 ml Balance 3490 ml Capillary Refill : Less Than 3 Seconds General Appearance: No Apparent Distress WD/WN HEENT: Normal ENT Inspection Neck: Full Range of Motion Normal Inspection Respiratory: Chest Non Tender Lungs Clear Normal Breath Sounds No Accessory Muscle Use No Respiratory Distress Cardiovascular: Regular Rate, Rhythm No Murmur Gastrointestinal: non tender soft Results Lab Laboratory Tests 05/30/16 20:34: Activated Partial Thromboplast Time 26, Alanine Aminotransferase (ALT/SGPT) 20, Albumin 4.1, Alkaline Phosphatase 64, Amylase Level 100, Anion Gap 11, Aspartate Amino Transf (AST/SGOT) 17, B-Type Natriuretic Peptide 26.2, BUN/ Creatinine Ratio 10, Basophils # (Auto) 0.0, Basophils (%) (Auto) 0, Blood Urea Nitrogen 24H, Calcium Level 9.5, Carbon Dioxide Level 16L, Chloride Level 108H, Creatine Kinase MB 3.7, Creatinine 2.43H, Eosinophils # (Auto) 0.1, Eosinophils (%) (Auto) 1, Estimat Glomerular Filtration Rate 26, Glucose Level 486*H, Hematocrit 45, Hemoglobin 15.2, INR Comment 1.1, Lipase 162H, Lymphocytes # ( Auto) 1.4, Lymphocytes (%) (Auto) 10L, Magnesium Level 1.8, Mean Corpuscular Hemoglobin 30, Mean Corpuscular Hemoglobin Concent 34, Mean Corpuscular Volume 89, Mean Platelet Volume 10.4, Monocytes # (Auto) 0.8, Monocytes (%) (Auto) 6, Neutrophils # (Auto) 11.0H, Neutrophils (%) (Auto) 83H, Platelet Count 257, Potassium Level 4.8, Prothrombin Time 13.6, Red Blood Count 5.10, Red Cell Distribution Width 13.5, Sodium Level 135, Total Bilirubin 0.6, Total Creatine Kinase 125, Total Protein 7.0, Troponin I < 0.30, White Blood Count 13.2H 05/30/16 21:20: Sujit Test YES-POS, Arterial Blood Base Excess -6.9L, Arterial Blood HCO3 18L, Arterial Blood Oxygen Saturation 96, Arterial Blood Partial Pressure CO2 34L, Arterial Blood Partial Pressure O2 79, Arterial Blood Total CO2 19.1L, Arterial Blood pH 7.34*L, Blood Gas Inspired Oxygen ROOM AIR, Blood Gas Patient Temperature 97.8, Blood Gas Puncture Site LT RAD, Blood Gas Ventilator Setting NO 05/30/16 22:38: Glucometer 275H 05/30/16 23:10: Anion Gap 9, BUN/Creatinine Ratio 12, Blood Urea Nitrogen 24H, Calcium Level 8.9 , Carbon Dioxide Level 19L, Chloride Level 110H, Creatinine 2.05H, Estimat Glomerular Filtration Rate 32, Glucose Level 231H, Potassium Level 4.5, Sodium Level 138 05/31/16 00:12: Glucometer 184H 05/31/16 00:47: Urine Bacteria NEGATIVE, Urine Bilirubin NEGATIVE, Urine Casts PRESENT, Urine Clarity CLEAR, Urine Color YELLOW, Urine Crystals NONE, Urine Culture Indicated NO, Urine Glucose (UA) 4+H, Urine Hyaline Casts 5-10H, Urine Ketones NEGATIVE, Urine Leukocyte Esterase NEGATIVE, Urine Mucus NEGATIVE, Urine Nitrite NEGATIVE , Urine Protein NEGATIVE, Urine RBC NONE, Urine RBC (Auto) NEGATIVE, Urine Specific [place] 1.015L, Urine Squamous Epithelial Cells 2-5, Urine Urobilinogen NORMAL, Urine WBC NONE, Urine pH 5 05/31/16 01:13: Glucometer 170H 05/31/16 02:18: Alanine Aminotransferase (ALT/SGPT) 15, Albumin 3.5, Alkaline Phosphatase 53, Amylase Level 65, Anion Gap 8, Aspartate Amino Transf (AST/SGOT) 15, BUN/ Creatinine Ratio 11, Basophils # (Auto) 0.0, Basophils (%) (Auto) 0, Blood Urea Nitrogen 22H, Calcium Level 8.5, Carbon Dioxide Level 18L, Chloride Level 113H, Cholesterol Level 103, Creatinine 1.97H, Eosinophils # (Auto) 0.2, Eosinophils ( %) (Auto) 2, Estimat Glomerular Filtration Rate 33, Glucose Level 180H, HDL Cholesterol 26L, Hematocrit 40, Hemoglobin 13.3, LDL Cholesterol Direct 62, Lipase 77, Lymphocytes # (Auto) 1.8, Lymphocytes (%) (Auto) 21, Magnesium Level 1.7L, Mean Corpuscular Hemoglobin 30, Mean Corpuscular Hemoglobin Concent 33, Mean Corpuscular Volume 90, Mean Platelet Volume 10.2, Monocytes # (Auto) 0.8, Monocytes (%) (Auto) 9, Myoglobin 155.6H, Neutrophils # (Auto) 5.9, Neutrophils (%) (Auto) 68, Phosphorus Level 2.5, Platelet Count 217, Potassium Level 5.0, Red Blood Count 4.47, Red Cell Distribution Width 13.4, Sodium Level 139, Total Bilirubin 0.4, Total Protein 5.8L, Triglycerides Level 126, Troponin I < 0.30, VLDL Cholesterol 25, White Blood Count 8.7 05/31/16 02:19: Glucometer 157H 05/31/16 03:45: Glucometer 139H 05/31/16 04:41: Glucometer 123H 05/31/16 06:24: Glucometer 124H Assessment/Plan Assessment/Plan Assess & Plan/Chief Complaint chest pain. Uncontrolled diabetes. Diarrhea. Dehydration. Acute and chronic renal insufficiency. Patient feeling better today. GFR getting better Diagnosis/Problems: Clinical Quality Measures AMI/AHF: ASA po Prior to arrival: No DVT/VTE Risk/Contraindication: Risk Factor Score Per Nursin RFS Level Per Nursing on Admit: 3=High LLUVIA ROUSE DO May 31, 2016 07:42
--- NOTE | 2016-05-31 08:32 | Diagnostic Imaging Report ---
INDICATION: Renal failure. Portable chest at 05:07 a.m. FINDINGS: Heart size and pulmonary vascularity are normal. Lungs are clear. There are no effusions or pneumothoraces. There are postop changes from CABG surgery. IMPRESSION: No acute abnormalities in the chest. Dictated by: Dictated on workstation # [id number]
--- NOTE | 2016-05-31 08:42 | Consultation-Cardiology ---
HPI-Cardiology Cardiology Consultation Date of Consultation 05/31/16 Date of Admission Indication: CP HPI Patient is a 76 y/o male with history of atrial flutter s/p LINq implantation, CAD, PVD. Presented to the ER with complaints of diarrhea x 3 days with 5-10 stools per day, CP, dyspnea. Patient report CP occurred prior to arrival to the ER and lasted approx 5 minutes. Denies any dizziness, lightheadedness, nausea or diaphoresis. Reports had recently been sick with diarrhea x 3 weeks after being on antibiotics. Denies any active CP at this time. Workup done in the ER revealed dehydration with acute on chronic renal failure and blood glucose >400. patient was seen and evaluated, he is a 76-year-old gentleman with history of atrial flutter, had history of Reveal implant, peripheral arterial disease. Has been having lower extremity cramps. Had abdominal pain and diarrhea. Had an episode of chest pain and palpitation where he felt irregular heartbeat or palpitation, came into the emergency room, no arrhythmia was detected, noted to be in acute renal failure and having hyperglycemia. Denied any syncope or near syncopal episodes. Has been feeling better. Home Medications & Allergies Allergies: Coded Allergies: celecoxib (Unverified Allergy, Mild, TAKES ASPIRIN AT HOME, 12/21/14) diclofenac (Unverified Allergy, Mild, TAKES ASPIRIN AT HOME, 12/21/14) naproxen (Unverified Allergy, Mild, TAKES ASPIRIN AT HOME, 12/21/14) rosuvastatin (Unverified Allergy, Mild, 08/14/08) Penicillins (Verified Allergy, Unknown, 08/03/05) amoxicillin (Verified Allergy, Unknown, 08/03/05) morphine (Verified Allergy, Unknown, TAKES HYDROCODONE AT HOME, 07/17/14) Home Medication List Reviewed: Yes [id number] Hx Patient Social History Marital Status: Employed/Student: retired Alcohol Use: Denies Use Recreational Drug Use: No Smoking Status: Former Smoker (3 PPD, QUIT A FEW YEARS AGO) Former smoker/When Quit: May 31, 1999 Type Used: Cigarettes Recent Foreign Travel: No Recent Infectious Disease Expo: No Recent Hopitalizations: Yes (03/2016) Physical Abuse Screen: No Sexual Abuse: No Immunizations Up To Date Tetanus Booster (TDap): More than 5yrs Date of Pneumonia Vaccine: Jun 14, 2015 Date of Influenza Vaccine: Feb 12, 2016 Past Medical History CAD, PVD, HTN, PAF Family Medical History Family History: Cancer G8 BROTHER Cataract 19 FATHER 19 MOTHER G8 BROTHER G8 BROTHER G8 SISTER Congestive heart failure 19 FATHER 19 MOTHER Family history: Arthritis 19 FATHER 19 MOTHER G8 BROTHER G8 BROTHER G8 SISTER G8 SISTER DAUGHTER SON Family history: Breast disease DAUGHTER Family history: Cardiovascular disease 19 FATHER Family history: Diabetes mellitus 19 FATHER G8 BROTHER G8 SISTER Family history: Hypertension 19 FATHER 19 MOTHER G8 BROTHER G8 BROTHER G8 SISTER G8 SISTER DAUGHTER SON Family history: Thyroid disorder DAUGHTER Heart disease 19 FATHER 19 MOTHER G8 BROTHER Hypercholesterolemia 19 FATHER 19 MOTHER G8 BROTHER G8 BROTHER G8 SISTER Myocardial infarction 19 FATHER 19 MOTHER G8 BROTHER No Family History of: Abdominal aortic aneurysm Fisher's disease Alcoholism Aphasia Cancer of colon Chest pain Congenital heart disease Cystic fibrosis Dementia Dysphagia Family history: Allergy Family history: Alzheimer's disease Family history: Asthma Family history: Coronary thrombosis Family history: Gastrointestinal disease Family history: Glaucoma Family history: Osteoporosis Headache Hearing loss Hereditary disease History of - anemia History of - disorder History of - respiratory disease History of drug abuse Human immunodeficiency virus (HIV) seropositivity Infertile Kidney disease Malignant neoplasm of lung Parkinson's disease Prostate cancer Psychotic disorder Seizure disorder Stroke Tuberculosis Visual impairment Constitutional: No chills, No diaphoresis, No fever, malaise weakness EENTM: No blurred vision, No double vision Respiratory: No cough, dyspnea on exertion Cardiovascular: chest pain edemaNo Hx of Intervention, No palpitations Gastrointestinal: abdominal pain diarrhea Genitourinary: No discharge, No dysuria, No frequency Musculoskeletal: No back pain, No joint pain Psychiatric/Neurological: Denies Anxiety, Denies Depressed Reviewed Test Results Reviewed Test Results Lab Laboratory Tests 05/30/16 20:34: Activated Partial Thromboplast Time 26, Alanine Aminotransferase (ALT/SGPT) 20, Albumin 4.1, Alkaline Phosphatase 64, Amylase Level 100, Anion Gap 11, Aspartate Amino Transf (AST/SGOT) 17, B-Type Natriuretic Peptide 26.2, BUN/ Creatinine Ratio 10, Basophils # (Auto) 0.0, Basophils (%) (Auto) 0, Blood Urea Nitrogen 24H, Calcium Level 9.5, Carbon Dioxide Level 16L, Chloride Level 108H, Creatine Kinase MB 3.7, Creatinine 2.43H, Eosinophils # (Auto) 0.1, Eosinophils (%) (Auto) 1, Estimat Glomerular Filtration Rate 26, Glucose Level 486*H, Hematocrit 45, Hemoglobin 15.2, INR Comment 1.1, Lipase 162H, Lymphocytes # ( Auto) 1.4, Lymphocytes (%) (Auto) 10L, Magnesium Level 1.8, Mean Corpuscular Hemoglobin 30, Mean Corpuscular Hemoglobin Concent 34, Mean Corpuscular Volume 89, Mean Platelet Volume 10.4, Monocytes # (Auto) 0.8, Monocytes (%) (Auto) 6, Neutrophils # (Auto) 11.0H, Neutrophils (%) (Auto) 83H, Platelet Count 257, Potassium Level 4.8, Prothrombin Time 13.6, Red Blood Count 5.10, Red Cell Distribution Width 13.5, Sodium Level 135, Total Bilirubin 0.6, Total Creatine Kinase 125, Total Protein 7.0, Troponin I < 0.30, White Blood Count 13.2H 05/30/16 21:20: Sujit Test YES-POS, Arterial Blood Base Excess -6.9L, Arterial Blood HCO3 18L, Arterial Blood Oxygen Saturation 96, Arterial Blood Partial Pressure CO2 34L, Arterial Blood Partial Pressure O2 79, Arterial Blood Total CO2 19.1L, Arterial Blood pH 7.34*L, Blood Gas Inspired Oxygen ROOM AIR, Blood Gas Patient Temperature 97.8, Blood Gas Puncture Site LT RAD, Blood Gas Ventilator Setting NO 05/30/16 22:38: Glucometer 275H 05/30/16 23:10: Anion Gap 9, BUN/Creatinine Ratio 12, Blood Urea Nitrogen 24H, Calcium Level 8.9 , Carbon Dioxide Level 19L, Chloride Level 110H, Creatinine 2.05H, Estimat Glomerular Filtration Rate 32, Glucose Level 231H, Potassium Level 4.5, Sodium Level 138 05/31/16 00:12: Glucometer 184H 05/31/16 00:47: Urine Bacteria NEGATIVE, Urine Bilirubin NEGATIVE, Urine Casts PRESENT, Urine Clarity CLEAR, Urine Color YELLOW, Urine Crystals NONE, Urine Culture Indicated NO, Urine Glucose (UA) 4+H, Urine Hyaline Casts 5-10H, Urine Ketones NEGATIVE, Urine Leukocyte Esterase NEGATIVE, Urine Mucus NEGATIVE, Urine Nitrite NEGATIVE , Urine Protein NEGATIVE, Urine RBC NONE, Urine RBC (Auto) NEGATIVE, Urine Specific [place] 1.015L, Urine Squamous Epithelial Cells 2-5, Urine Urobilinogen NORMAL, Urine WBC NONE, Urine pH 5 05/31/16 01:13: Glucometer 170H 05/31/16 02:18: Alanine Aminotransferase (ALT/SGPT) 15, Albumin 3.5, Alkaline Phosphatase 53, Amylase Level 65, Anion Gap 8, Aspartate Amino Transf (AST/SGOT) 15, BUN/ Creatinine Ratio 11, Basophils # (Auto) 0.0, Basophils (%) (Auto) 0, Blood Urea Nitrogen 22H, Calcium Level 8.5, Carbon Dioxide Level 18L, Chloride Level 113H, Cholesterol Level 103, Creatinine 1.97H, Eosinophils # (Auto) 0.2, Eosinophils ( %) (Auto) 2, Estimat Glomerular Filtration Rate 33, Glucose Level 180H, HDL Cholesterol 26L, Hematocrit 40, Hemoglobin 13.3, LDL Cholesterol Direct 62, Lipase 77, Lymphocytes # (Auto) 1.8, Lymphocytes (%) (Auto) 21, Magnesium Level 1.7L, Mean Corpuscular Hemoglobin 30, Mean Corpuscular Hemoglobin Concent 33, Mean Corpuscular Volume 90, Mean Platelet Volume 10.2, Monocytes # (Auto) 0.8, Monocytes (%) (Auto) 9, Myoglobin 155.6H, Neutrophils # (Auto) 5.9, Neutrophils (%) (Auto) 68, Phosphorus Level 2.5, Platelet Count 217, Potassium Level 5.0, Red Blood Count 4.47, Red Cell Distribution Width 13.4, Sodium Level 139, Total Bilirubin 0.4, Total Protein 5.8L, Triglycerides Level 126, Troponin I < 0.30, VLDL Cholesterol 25, White Blood Count 8.7 05/31/16 02:19: Glucometer 157H 05/31/16 03:45: Glucometer 139H 05/31/16 04:41: Glucometer 123H 05/31/16 06:24: Glucometer 124H ECG Impression ECG Initial ECG Rhythm: Normal Sinus Physical Exam Vital Signs Vital Sign - Last 12Hours 05/30/16 20:20 Temp 98.1 Pulse 102 Resp 14 B/P 105/72 Pulse Ox 96 O2 Delivery Room Air Capillary Refill : Less Than 3 Seconds General Appearance: No Apparent Distress WD/WN HEENT: PERRL/EOMI TMs Normal Normal ENT Inspection Neck: Full Range of Motion Normal Inspection Non Tender Respiratory: Chest Non Tender Lungs Clear Normal Breath Sounds No Accessory Muscle Use Cardiovascular: Regular Rate, Rhythm No Edema No Gallop No JVD No Murmur Gastrointestinal: Non Tender Soft Rectal: Deferred Back: No CVA Tenderness Extremity: No Calf Tenderness Neurologic/Psychiatric: Alert 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 Possibly related to tachycardia. Patient had brief episode of sinus tachycardia on LINq monitor. Cardiac enzymes are negative. No acute ST changes. Continue to monitor. Paroxysmal Atrial fibrillation/flutter- s/p LINq implantation. No recent episodes of afib/flutter. Restart home medications and continue to monitor telemetry. [id number] score of 3, yearly risk of stroke without oral anticoagulation is 3.2%. S/p LINq implantation. Will continue to monitor closely for any further episodes of atrial flutter. Coronary artery disease,2001 history of CABG x4 04/18/2012 PTCA and stent placement using bare-metal stent 4.0 x 18 mm integrity to the vein graft to the OM. 03/01/2016 cardiac catheterization showing severe instent restenosis in the vein graft to the obtuse marginal branch successful balloon angioplasty using 4.020 mm M or balloon expanded to 4.35 with excellent results. Patent vein graft to the right coronary artery, vein graft to the diagonal artery, AMANDA to the LAD with occluded [place] vessel proximally. Continue maximizing medical therapy Enteritis- patient complains of diarrhea for the last 3-4 days. Continue IVF and continue to monitor DKA- managed by PCP DM- managed by PCP Dehydration- continue IV fluids Acute on chronic renal failure- continue to monitor renal function closely. Dizziness/lightheadedness, reporting improvement. Continue to monitor. History of PAT History of carotid stenosis, last carotid ultrasound done in May 2015 revealed nonobstructive disease bilaterally. Continue to monitor. Hypertension, controlled. I will hold enalapril at this time secondary to renal function. Restart other home BP medications and continue to monitor BP/ HR. Hyperlipidemia,well controlled. Monitored as outpatient. Peripheral vascular disease- intervention in March [address] Mckeon, ABIs done May 2015 revealed mild left peripheral artery disease, severe right disease with LISA 0.48. Angiogram in February 2016 showed total occlusion of the posterior tibial artery and peroneal artery at the trifurcation level reconstructed by collateral down at the ankle with occlusion of the anterior tibial artery at the ankle level, moderate peripheral arterial disease on the left lower extremity down to the trifurcation. We discussed the management plan , I recommend maximizing medical therapy with conservative management unless patient has significant symptoms or nonhealing wound. History of pancreatitis Degenerative joint disease Thank you for allowing us to participate in the management of Mr. Tolentino. This is Varsha Guerrero PA-C as a scribe for Dr. Stiles. Patient was seen and evaluated with Varsha, I interviewed the patient perform physical examination, currently feeling better. Started receiving aggressive hydration. Monitoring renal function, reporting lower extremity cramps. Had peripheral arterial disease as described above. On examination lungs were clear to auscultation bilaterally, heart is regular rate and rhythm. Patient did not have any further episode of atrial fibrillation or flutter that justify the use of oral anticoagulation, I'll continue monitoring him at this time, regarding his peripheral arterial disease, patient had total occlusion of the posterior tibial artery and peroneal artery at the trifurcation reconstructed by collateral at the ankle. I recommended exercise program which will improve his collaterals. I'll continue maximizing medical therapy and monitoring him, I reviewed the note and agree with the current scribe, made few minor adjustment using Italic Font Clinical Quality Measures AMI/AHF: ASA po Prior to arrival: No DVT/VTE Risk/Contraindication: Risk Factor Score Per Nursin RFS Level Per Nursing on Admit: 3=High Contraindications-Pharm: Other *list below* VARSHA KAT May 31, 2016 08:42 BISI STILES MD May 31, 2016 17:16
[2016-05-31] MEDS ORDERED: ASPIRIN E.C. 325 MG (ECOTRIN) TABLET PO SCH (09:00)
[2016-05-31] MEDS: DEXTROSE 10% IV SOLUTION 1,000 ML IV SCH (09:15)
[2016-05-31] MEDS ORDERED: CALCIUM CARBONATE 500 MG (TUMS) TAB.CHEW PO PRN (11:45)
[2016-05-31 12:55] LABS: CALCIUM 8.7 MG/DL (8.5-10.1); CREATININE SERUM 1.64 MG/DL (0.60-1.30); POTASSIUM 5.2 MMOL/L (3.6-5.0)
[2016-05-31] MEDS ORDERED: PENT400T2 PO (13:33)
[2016-05-31] MEDS ORDERED: UMEC1BLS IH (13:33)
[2016-05-31] MEDS ORDERED: AMOX-358 PO (13:33)
[2016-05-31] MEDS ORDERED: LORA10TA7 PO (13:33)
[2016-05-31] MEDS ORDERED: CILO100T PO (13:33)
[2016-05-31] MEDS ORDERED: NITROGLYCERIN SUBLINGUAL 0.4 MG TAB (NITROSTAT) SL PRN (14:00)
--- NOTE | 2016-05-31 14:15 | Physician Query-General Query ---
Physician Query-General Query to Physician: Is this patient's diabetes type one or type two? PHYSICIAN RESPONSE: Based on the clinical findings in the record, please respond to the query above on this document as an addendum. Possible, probable, or questionable diagnosis can be coded for INPATIENTS ONLY. Physician Response: Physician Response 2 If you have questions please contact: Electrical Machine Builder:Suma Peterson [facility],CCDS Ext:[phone] Thank you for your time and cooperation. Clinical Retort Setter/Electrical Machine Builder This is a permanent part of the medical record SUMA PETERSON May 31, 2016 14:15 LLUVIA ROUSE DO Jun 01, 2016 07:13
[2016-05-31] MEDS: inSUlin (REGULAR) HUMAN 1 UNIT/0.01 ML (CHARGE PER UNIT) SC SCH ×2 (16:00→21:00)
[2016-05-31] MEDS: OMEGA 3 (FISH OIL) 1000 MG CAP PO SCH (17:00)
[2016-05-31] MEDS ORDERED: EPA PO SCH (21:00)
[2016-05-31] MEDS ORDERED: ENALAPRIL 10 MG (VASOTEC) TAB PO ONE (21:00)
[2016-05-31] MEDS ORDERED: traZODone 50 MG (DESYREL) TAB PO SCH (21:00)
[2016-05-31] MEDS ORDERED: OMEGA PO SCH (21:00)
[2016-05-31] MEDS ORDERED: DHA PO SCH (21:00)
[2016-05-31] MEDS ORDERED: NON-FORMULARY MEDICATION 1 EA EA (Cilostazol 100 MG) PO SCH (21:00)
[2016-05-31] MEDS ORDERED: ENALAPRIL 10 MG (VASOTEC) TAB PO SCH (21:00)
[2016-05-31] MEDS ORDERED: inSUlin DETERMIR 1 UNIT/0.01 ML (LEVEMIR) CHARGE PER UNIT SQ SCH (21:00)
[2016-05-31] MEDS ORDERED: FISH OIL PO SCH (21:00)
[2016-05-31] MEDS ORDERED: meTOprolol TARTRATE 25 MG (LOPRESSOR) TABLET PO ONE (21:00)
[2016-05-31] MEDS ORDERED: GABAPENTIN 300 MG (NEURONTIN) CAP PO SCH (21:00)
[2016-05-31] MEDS ORDERED: [UNRECOGNIZED DRUG - OTHER] PO SCH (21:00)
[2016-05-31] MEDS ORDERED: INSULIN DETEMIR SQ SCH (21:00)
[2016-05-31] MEDS: PENTOXIFYLLINE 400 MG (TRENtal) TAB PO SCH (21:23)
[2016-06-01] VITALS: BP 151/71
[2016-06-01 04:00] VITALS: BP 153/80
[2016-06-01] MEDS: NS IV 1000 ML 1,000 ML IV SCH (05:11)
[2016-06-01] MEDS: inSUlin (REGULAR) HUMAN 1 UNIT/0.01 ML (CHARGE PER UNIT) SC SCH ×2 (06:00→11:00)
[2016-06-01] MEDS: OMEGA 3 (FISH OIL) 1000 MG CAP PO SCH (06:42)
[2016-06-01 08:00] VITALS: BP 175/88
--- NOTE | 2016-06-01 08:10 | Progress Note (SOAP) ---
Subjective Subjective/Events-last exam she states she's feeling much better today. Patient would like to go home. Patient has no diarrhea. Patient having have a chest pain. Waiting for lab results. Nurse to call at 11 a.m. to see how patient is doing. Diagnosis diarrhea, chest pain. Dyspnea. Coronary artery disease. Dehydration. Renal insufficiency. Diabetic Objective Exam Vital Signs Date Time Temp Pulse Resp B/P Pulse Ox O2 Delivery O2 Flow Rate FiO2 06/01/16 04:00 97.9 56 18 153/80 96 Room Air 06/01/16 01:00 75 06/01/16 00:00 97.9 57 18 151/71 94 Room Air 05/31/16 21:00 Room Air 05/31/16 20:30 97.6 70 20 188/90 97 Room Air 05/31/16 19:00 67 05/31/16 18:43 Room Air 05/31/16 17:00 70 19 150/102 96 Room Air 05/31/16 16:00 77 11 174/86 96 Room Air 05/31/16 16:00 97.6 05/31/16 16:00 95 Room Air 05/31/16 15:00 70 8 148/89 98 Room Air 05/31/16 14:00 71 14 143/90 100 Room Air 05/31/16 13:00 66 05/31/16 13:00 73 96 Room Air 05/31/16 12:00 80 25 143/85 94 Room Air 05/31/16 12:00 97.2 05/31/16 12:00 97 Room Air 05/31/16 11:00 58 9 126/73 97 Room Air 05/31/16 10:00 72 13 152/85 97 Room Air 05/31/16 09:00 68 8 135/76 98 Room Air I & O 06/01/16 07:00 Intake Total 3860 ml Output Total 500 ml Balance 3360 ml Capillary Refill : Less Than 3 SecondsLess Than 3 Seconds General Appearance: No Apparent Distress WD/WN HEENT: Normal ENT Inspection Neck: Normal Inspection Non Tender Respiratory: Chest Non Tender Lungs Clear Normal Breath Sounds No Accessory Muscle Use No Respiratory Distress Cardiovascular: Regular Rate, Rhythm No Murmur Gastrointestinal: non tender soft Results Lab Laboratory Tests 05/31/16 08:40: Glucometer 95 05/31/16 11:51: Glucometer 92 05/31/16 12:34: Anion Gap 7, BUN/Creatinine Ratio 10, Blood Urea Nitrogen 16, Calcium Level 8.7 , Carbon Dioxide Level 20L, Chloride Level 113H, Creatinine 1.64H, Digoxin Level 0.41L, Estimat Glomerular Filtration Rate 41, Glucose Level 104, Potassium Level 5.2H, Sodium Level 140 05/31/16 16:51: Glucometer 109 05/31/16 20:41: Glucometer 140H 06/01/16 03:35: Glucometer 78 06/01/16 04:10: Glucometer 101 06/01/16 06:00: Glucometer 191H Assessment/Plan Assessment/Plan Assess & Plan/Chief Complaint chest pain. Uncontrolled diabetes. Diarrhea. Dehydration. Acute and chronic renal insufficiency. Patient feeling better today. GFR getting better. . 06/01/16 Diarrhea resolved. Chest pain resolved. Dyspnea better. Dehydration improved. Coronary artery disease. Diabetes. Patient states she's feeling better 100 percent the wants to go home. Waiting on blood tests. Nurse to call me at 11 a.m. Diagnosis/Problems: Clinical Quality Measures AMI/AHF: ASA po Prior to arrival: No DVT/VTE Risk/Contraindication: Risk Factor Score Per Nursin RFS Level Per Nursing on Admit: 3=High Contraindications-Pharm: Other *list below* LLUVIA ROUSE DO Jun 01, 2016 08:10
[2016-06-01 08:25] LABS: MEAN PLATELET VOLUME 10.3 FL (7.4-10.4); RED BLOOD COUNT 4.36 10^6/uL (4.35-5.85); RED CELL DISTRIBUTION WIDTH 13.4 % (10.0-14.5); WHITE BLOOD COUNT 6.4 10^3/uL (4.3-11.0)
--- NOTE | 2016-06-01 08:35 | Cardiology Progress Note ---
Subjective Subjective/Events-last exam Patient walking around in room. No new complaints. States he is ready to go home. Denies any CP or dyspnea. No further episode of diarrhea. Review of Systems General: No Night Sweats, No Fatigue, No Malaise HEENT: No Visual Changes, No Dysphasia Pulmonary: No Dyspnea, No Cough Cardiovascular: No: Chest Pain, Palpitations Gastrointestinal: No: Abdominal Pain, Nausea, Vomiting Genitourinary: No Dysuria, No Frequency Musculoskeletal: No: back pain, neck pain Neurological: No: Change in speech, Confusion, Numbness, Weakness Objective-Cardiology Exam Last Set of Vital Signs Vital Signs 06/01/16 06/01/16 08:00 14:15 Temp 97.6 Pulse 58 Resp 20 B/P 155/80 Pulse Ox 97 O2 Delivery Room Air Capillary Refill : Less Than 3 SecondsLess Than 3 Seconds I&O Intake and Output 06/01/16 00:00 Intake Total 5050 ml Balance 5050 ml Intake Oral 1850 ml IV Total 3200 ml # Voids 11 # Bowel Movements 2 General: Alert, Oriented X3, Cooperative HEENT: Atraumatic, PERRLA Neck: Supple, No JVD, No Thyromegaly Lungs: Clear to Auscultation, Normal Air Movement Heart: Regular Rate, Normal S1, Normal S2, No Murmurs Abdomen: Normal Bowel Sounds, Soft, No Tenderness, No Hepatosplenomegaly, No Masses Extremities: No Clubbing Skin: No Rashes, No Breakdown, No Significant Lesion Neuro: Normal Gait, Normal Speech, Strength at 5/5 X4 Ext, Normal Tone, Sensation Intact Psych/Mental Status: Mental Status NL, Mood NL Results Lab Laboratory Tests 06/01/16 08:15 A/P-Cardiology Admission Diagnosis CP CAD PAF Enteritis Assessment/Plan Chest pain, nonspecific etiology, reporting improvement at this time. Possibly related to tachycardia. Patient had brief episode of sinus tachycardia on LINq monitor. Cardiac enzymes are negative. No acute ST changes. Continue to monitor. Paroxysmal Atrial fibrillation/flutter- s/p LINq implantation. No recent episodes of afib/flutter. Restart home medications and continue to monitor telemetry. [id number] score of 3, yearly risk of stroke without oral anticoagulation is 3.2%. S/p LINq implantation. Will continue to monitor closely for any further episodes of atrial flutter. Coronary artery disease,2001 history of CABG x4 04/18/2012 PTCA and stent placement using bare-metal stent 4.0 x 18 mm integrity to the vein graft to the OM. 03/01/2016 cardiac catheterization showing severe in-stent restenosis in the vein graft to the obtuse marginal branch successful balloon angioplasty using 4.020 mm M or balloon expanded to 4.35 with excellent results. Patent vein graft to the right coronary artery, vein graft to the diagonal artery, AMANDA to the LAD with occluded [place] vessel proximally. Continue maximizing medical therapy Enteritis- patient complains of diarrhea for the last 3-4 days. Now resolved. DKA- managed by PCP. Improved. DM- managed by PCP Dehydration- improved. Acute on chronic renal failure- renal function improving. Continue to monitor. Dizziness/lightheadedness, reporting improvement. Continue to monitor. History of PAT History of carotid stenosis, last carotid ultrasound done in May 2015 revealed nonobstructive disease bilaterally. Continue to monitor. Hypertension, controlled. I will hold enalapril at this time secondary to renal function. Restart other home BP medications and continue to monitor BP/ HR. Hyperlipidemia,well controlled. Monitored as outpatient. Peripheral vascular disease- intervention in March [address] Mckeon, ABIs done May 2015 revealed mild left peripheral artery disease, severe right disease with LISA 0.48. Angiogram in February 2016 showed total occlusion of the posterior tibial artery and peroneal artery at the trifurcation level reconstructed by collateral down at the ankle with occlusion of the anterior tibial artery at the ankle level, moderate peripheral arterial disease on the left lower extremity down to the trifurcation. We discussed the management plan , I recommend maximizing medical therapy with conservative management unless patient has significant symptoms or nonhealing wound. History of pancreatitis Degenerative joint disease OK for discharge from cardiology standpoint. Follow up in our office in [address] Stiles, I have seen and evaluated the patient with Varsha, he is feeling better, being discharged home today. Denied any chest pain or shortness of breath. Denied any palpitation, I will continue monitoring him. Examination showed lungs were clear to auscultation bilaterally, heart is regular rate and rhythm Clinical Quality Measures AMI/AHF: ASA po Prior to arrival: No DVT/VTE Risk/Contraindication: Risk Factor Score Per Nursin RFS Level Per Nursing on Admit: 3=High Contraindications-Pharm: Other *list below* VARSHA KAT Jun 01, 2016 08:35 BISI STILES MD Jun 01, 2016 15:24
[2016-06-01 08:38] LABS: CALCIUM 9.3 MG/DL (8.5-10.1); CREATININE SERUM 1.55 MG/DL (0.60-1.30); POTASSIUM 4.3 MMOL/L (3.6-5.0)
[2016-06-01] MEDS ORDERED: ASPIRIN 81 MG CHEW (CHILDREN'S ASA) PO SCH (09:00)
[2016-06-01] MEDS ORDERED: DIGOXIN 0.125 MG (LANOXIN) TAB PO SCH (09:00)
[2016-06-01] MEDS ORDERED: MONTELUKAST 10 MG (SINGULAIR) TAB PO SCH (09:00)
[2016-06-01] MEDS ORDERED: LORATADINE (CLARITIN) 10 MG TAB PO SCH (09:00)
[2016-06-01] MEDS ORDERED: CLOPIDOGREL 75 MG (PLAVIX) TABLET PO SCH (09:00)
[2016-06-01] MEDS ORDERED: meTOprolol TARTRATE 25 MG (LOPRESSOR) TABLET PO SCH (09:00)
[2016-06-01] MEDS: PENTOXIFYLLINE 400 MG (TRENtal) TAB PO SCH (10:04)
[2016-06-01 14:15] VITALS: BP 155/80
--- NOTE | 2016-06-02 16:33 | Physician Query-Final Dx ---
ROCCO MARR 06/02/16 1633: Final Diagnosis Give Final Diagnosis Please give Final Diagnosis LLUVIA ROUSE DO 06/05/16 0831: Final Diagnosis Give Final Diagnosis i DID DISCHARGE SUMMARY THIS MORNING ALREADY DONE ROCCO MARR Jun 02, 2016 16:33 LLUVIA ROUSE DO Jun 05, 2016 08:31
--- NOTE | 2016-06-05 07:23 | Discharge Summary ---
Diagnosis/Chief Complaint Date of Admission May 30, 2016 at 21:15 Date of Discharge Jun 01, 2016 at 12:30 Discharge Date: Discharge Diagnosis acute kidney failure. Diabetes mellitus not controlled. Dehydration. Chest pain. Coronary artery disease. Previous myocardial infarction. Type II diabetes area Hypertension. History of atrial fibrillation. Acute gastroenteritis. COPD. GERD. Sleep apnea history Discharge Summary Consultations consult with cardiology Discharge Physical Examination Allergies: Coded Allergies: celecoxib (Unverified Allergy, Mild, TAKES ASPIRIN AT HOME, 12/21/14) diclofenac (Unverified Allergy, Mild, TAKES ASPIRIN AT HOME, 12/21/14) naproxen (Unverified Allergy, Mild, TAKES ASPIRIN AT HOME, 12/21/14) rosuvastatin (Unverified Allergy, Mild, 08/14/08) Penicillins (Verified Allergy, Unknown, 08/03/05) amoxicillin (Verified Allergy, Unknown, 08/03/05) morphine (Verified Allergy, Unknown, TAKES HYDROCODONE AT HOME, 07/17/14) Vitals & I&Os Vital Signs Date Time Temp Pulse Resp B/P Pulse Ox O2 Delivery O2 Flow Rate FiO2 06/01/16 14:15 58 20 155/80 97 Room Air 06/01/16 08:00 97.6 Hospital Course patient hospital felt better and wanted to go home. Kidney failure improved. Chest pain resolved. Diabetes under better control Gastroenteritis resolved Labs (last 24 hrs) Laboratory Tests 05/30/16 00:07: Lactic Acid Level 0.8 05/30/16 20:34: Activated Partial Thromboplast Time 26, Alanine Aminotransferase (ALT/SGPT) 20, Albumin 4.1, Alkaline Phosphatase 64, Amylase Level 100, Anion Gap 11, Aspartate Amino Transf (AST/SGOT) 17, B-Type Natriuretic Peptide 26.2, BUN/ Creatinine Ratio 10, Basophils # (Auto) 0.0, Basophils (%) (Auto) 0, Blood Urea Nitrogen 24H, Calcium Level 9.5, Carbon Dioxide Level 16L, Chloride Level 108H, Creatine Kinase MB 3.7, Creatinine 2.43H, Eosinophils # (Auto) 0.1, Eosinophils (%) (Auto) 1, Estimat Glomerular Filtration Rate 26, Glucose Level 486*H, Hematocrit 45, Hemoglobin 15.2, INR Comment 1.1, Lipase 162H, Lymphocytes # ( Auto) 1.4, Lymphocytes (%) (Auto) 10L, Magnesium Level 1.8, Mean Corpuscular Hemoglobin 30, Mean Corpuscular Hemoglobin Concent 34, Mean Corpuscular Volume 89, Mean Platelet Volume 10.4, Monocytes # (Auto) 0.8, Monocytes (%) (Auto) 6, Neutrophils # (Auto) 11.0H, Neutrophils (%) (Auto) 83H, Platelet Count 257, Potassium Level 4.8, Prothrombin Time 13.6, Red Blood Count 5.10, Red Cell Distribution Width 13.5, Sodium Level 135, Total Bilirubin 0.6, Total Creatine Kinase 125, Total Protein 7.0, Troponin I < 0.30, White Blood Count 13.2H 05/30/16 21:20: Sujit Test YES-POS, Arterial Blood Base Excess -6.9L, Arterial Blood HCO3 18L, Arterial Blood Oxygen Saturation 96, Arterial Blood Partial Pressure CO2 34L, Arterial Blood Partial Pressure O2 79, Arterial Blood Total CO2 19.1L, Arterial Blood pH 7.34*L, Blood Gas Inspired Oxygen ROOM AIR, Blood Gas Patient Temperature 97.8, Blood Gas Puncture Site LT RAD, Blood Gas Ventilator Setting NO 05/30/16 22:38: Glucometer 275H 05/30/16 23:10: Anion Gap 9, BUN/Creatinine Ratio 12, Blood Urea Nitrogen 24H, Calcium Level 8.9 , Carbon Dioxide Level 19L, Chloride Level 110H, Creatinine 2.05H, Estimat Glomerular Filtration Rate 32, Glucose Level 231H, Potassium Level 4.5, Sodium Level 138 05/31/16 00:12: Glucometer 184H 05/31/16 00:47: Urine Bacteria NEGATIVE, Urine Bilirubin NEGATIVE, Urine Casts PRESENT, Urine Clarity CLEAR, Urine Color YELLOW, Urine Crystals NONE, Urine Culture Indicated NO, Urine Glucose (UA) 4+H, Urine Hyaline Casts 5-10H, Urine Ketones NEGATIVE, Urine Leukocyte Esterase NEGATIVE, Urine Mucus NEGATIVE, Urine Nitrite NEGATIVE , Urine Protein NEGATIVE, Urine RBC NONE, Urine RBC (Auto) NEGATIVE, Urine Specific [place] 1.015L, Urine Squamous Epithelial Cells 2-5, Urine Urobilinogen NORMAL, Urine WBC NONE, Urine pH 5 05/31/16 01:13: Glucometer 170H 05/31/16 02:18: Alanine Aminotransferase (ALT/SGPT) 15, Albumin 3.5, Alkaline Phosphatase 53, Amylase Level 65, Anion Gap 8, Aspartate Amino Transf (AST/SGOT) 15, BUN/ Creatinine Ratio 11, Basophils # (Auto) 0.0, Basophils (%) (Auto) 0, Blood Urea Nitrogen 22H, Calcium Level 8.5, Carbon Dioxide Level 18L, Chloride Level 113H, Cholesterol Level 103, Creatinine 1.97H, Eosinophils # (Auto) 0.2, Eosinophils ( %) (Auto) 2, Estimat Glomerular Filtration Rate 33, Glucose Level 180H, HDL Cholesterol 26L, Hematocrit 40, Hemoglobin 13.3, LDL Cholesterol Direct 62, Lipase 77, Lymphocytes # (Auto) 1.8, Lymphocytes (%) (Auto) 21, Magnesium Level 1.7L, Mean Corpuscular Hemoglobin 30, Mean Corpuscular Hemoglobin Concent 33, Mean Corpuscular Volume 90, Mean Platelet Volume 10.2, Monocytes # (Auto) 0.8, Monocytes (%) (Auto) 9, Myoglobin 155.6H, Neutrophils # (Auto) 5.9, Neutrophils (%) (Auto) 68, Phosphorus Level 2.5, Platelet Count 217, Potassium Level 5.0, Red Blood Count 4.47, Red Cell Distribution Width 13.4, Sodium Level 139, Total Bilirubin 0.4, Total Protein 5.8L, Triglycerides Level 126, Troponin I < 0.30, VLDL Cholesterol 25, White Blood Count 8.7 05/31/16 02:19: Glucometer 157H 05/31/16 03:45: Glucometer 139H 05/31/16 04:41: Glucometer 123H 05/31/16 06:24: Glucometer 124H 05/31/16 08:40: Glucometer 95 05/31/16 11:51: Glucometer 92 05/31/16 12:34: Anion Gap 7, BUN/Creatinine Ratio 10, Blood Urea Nitrogen 16, Calcium Level 8.7 , Carbon Dioxide Level 20L, Chloride Level 113H, Creatinine 1.64H, Digoxin Level 0.41L, Estimat Glomerular Filtration Rate 41, Glucose Level 104, Potassium Level 5.2H, Sodium Level 140 05/31/16 16:51: Glucometer 109 05/31/16 20:41: Glucometer 140H 06/01/16 03:35: Glucometer 78 06/01/16 04:10: Glucometer 101 06/01/16 06:00: Glucometer 191H 06/01/16 08:15: Anion Gap 10, BUN/Creatinine Ratio 9, Blood Urea Nitrogen 14, Calcium Level 9.3 , Carbon Dioxide Level 19L, Chloride Level 112H, Creatinine 1.55H, Estimat Glomerular Filtration Rate 44, Glucose Level 210H, Hematocrit 39L, Hemoglobin 13.0L, Mean Corpuscular Hemoglobin 30, Mean Corpuscular Hemoglobin Concent 33, Mean Corpuscular Volume 90, Mean Platelet Volume 10.3, Platelet Count 214, Potassium Level 4.3, Red Blood Count 4.36, Red Cell Distribution Width 13.4, Sodium Level 141, White Blood Count 6.4 06/01/16 11:17: Glucometer 171H Microbiology 05/30/16 MRSA Screen - Final, Complete MRSA not isolated Laboratory Tests 05/30/16 20:34 05/30/16 23:10 05/31/16 02:18 05/31/16 12:34 06/01/16 08:15 Pending Labs Microbiology Date/Time Source Procedure Growth Status 05/30/16 23:05 Nasal MRSA Screen - Final MRSA not isolated Complete Laboratory Tests 05/30/16 00:07: Lactic Acid Level 0.8 05/30/16 20:34: Activated Partial Thromboplast Time 26, Alanine Aminotransferase (ALT/SGPT) 20, Albumin 4.1, Alkaline Phosphatase 64, Amylase Level 100, Anion Gap 11, Aspartate Amino Transf (AST/SGOT) 17, B-Type Natriuretic Peptide 26.2, BUN/ Creatinine Ratio 10, Basophils # (Auto) 0.0, Basophils (%) (Auto) 0, Blood Urea Nitrogen 24, Calcium Level 9.5, Carbon Dioxide Level 16, Chloride Level 108, Creatine Kinase MB 3.7, Creatinine 2.43, Eosinophils # (Auto) 0.1, Eosinophils ( %) (Auto) 1, Estimat Glomerular Filtration Rate 26, Glucose Level 486, Hematocrit 45, Hemoglobin 15.2, INR Comment 1.1, Lipase 162, Lymphocytes # (Auto ) 1.4, Lymphocytes (%) (Auto) 10, Magnesium Level 1.8, Mean Corpuscular Hemoglobin 30, Mean Corpuscular Hemoglobin Concent 34, Mean Corpuscular Volume 89, Mean Platelet Volume 10.4, Monocytes # (Auto) 0.8, Monocytes (%) (Auto) 6, Neutrophils # (Auto) 11.0, Neutrophils (%) (Auto) 83, Platelet Count 257, Potassium Level 4.8, Prothrombin Time 13.6, Red Blood Count 5.10, Red Cell Distribution Width 13.5, Sodium Level 135, Total Bilirubin 0.6, Total Creatine Kinase 125, Total Protein 7.0, Troponin I < 0.30, White Blood Count 13.2 05/30/16 21:20: Sujit Test YES-POS, Arterial Blood Base Excess -6.9, Arterial Blood HCO3 18, Arterial Blood Oxygen Saturation 96, Arterial Blood Partial Pressure CO2 34, Arterial Blood Partial Pressure O2 79, Arterial Blood Total CO2 19.1, Arterial Blood pH 7.34, Blood Gas Inspired Oxygen ROOM AIR, Blood Gas Patient Temperature 97.8, Blood Gas Puncture Site LT RAD, Blood Gas Ventilator Setting NO 05/30/16 22:38: Glucometer 275 05/30/16 23:10: Anion Gap 9, BUN/Creatinine Ratio 12, Blood Urea Nitrogen 24, Calcium Level 8.9 , Carbon Dioxide Level 19, Chloride Level 110, Creatinine 2.05, Estimat Glomerular Filtration Rate 32, Glucose Level 231, Potassium Level 4.5, Sodium Level 138 05/31/16 00:12: Glucometer 184 05/31/16 00:47: Urine Bacteria NEGATIVE, Urine Bilirubin NEGATIVE, Urine Casts PRESENT, Urine Clarity CLEAR, Urine Color YELLOW, Urine Crystals NONE, Urine Culture Indicated NO, Urine Glucose (UA) 4+, Urine Hyaline Casts 5-10, Urine Ketones NEGATIVE, Urine Leukocyte Esterase NEGATIVE, Urine Mucus NEGATIVE, Urine Nitrite NEGATIVE , Urine Protein NEGATIVE, Urine RBC NONE, Urine RBC (Auto) NEGATIVE, Urine Specific [place] 1.015, Urine Squamous Epithelial Cells 2-5, Urine Urobilinogen NORMAL, Urine WBC NONE, Urine pH 5 05/31/16 01:13: Glucometer 170 05/31/16 02:18: Alanine Aminotransferase (ALT/SGPT) 15, Albumin 3.5, Alkaline Phosphatase 53, Amylase Level 65, Anion Gap 8, Aspartate Amino Transf (AST/SGOT) 15, BUN/ Creatinine Ratio 11, Basophils # (Auto) 0.0, Basophils (%) (Auto) 0, Blood Urea Nitrogen 22, Calcium Level 8.5, Carbon Dioxide Level 18, Chloride Level 113, Cholesterol Level 103, Creatinine 1.97, Eosinophils # (Auto) 0.2, Eosinophils (% ) (Auto) 2, Estimat Glomerular Filtration Rate 33, Glucose Level 180, HDL Cholesterol 26, Hematocrit 40, Hemoglobin 13.3, LDL Cholesterol Direct 62, Lipase 77, Lymphocytes # (Auto) 1.8, Lymphocytes (%) (Auto) 21, Magnesium Level 1.7, Mean Corpuscular Hemoglobin 30, Mean Corpuscular Hemoglobin Concent 33, Mean Corpuscular Volume 90, Mean Platelet Volume 10.2, Monocytes # (Auto) 0.8, Monocytes (%) (Auto) 9, Myoglobin 155.6, Neutrophils # (Auto) 5.9, Neutrophils ( %) (Auto) 68, Phosphorus Level 2.5, Platelet Count 217, Potassium Level 5.0, Red Blood Count 4.47, Red Cell Distribution Width 13.4, Sodium Level 139, Total Bilirubin 0.4, Total Protein 5.8, Triglycerides Level 126, Troponin I < 0.30, VLDL Cholesterol 25, White Blood Count 8.7 05/31/16 02:19: Glucometer 157 05/31/16 03:45: Glucometer 139 05/31/16 04:41: Glucometer 123 05/31/16 06:24: Glucometer 124 05/31/16 08:40: Glucometer 95 05/31/16 11:51: Glucometer 92 05/31/16 12:34: Anion Gap 7, BUN/Creatinine Ratio 10, Blood Urea Nitrogen 16, Calcium Level 8.7 , Carbon Dioxide Level 20, Chloride Level 113, Creatinine 1.64, Digoxin Level 0.41, Estimat Glomerular Filtration Rate 41, Glucose Level 104, Potassium Level 5.2, Sodium Level 140 05/31/16 16:51: Glucometer 109 05/31/16 20:41: Glucometer 140 06/01/16 03:35: Glucometer 78 06/01/16 04:10: Glucometer 101 06/01/16 06:00: Glucometer 191 06/01/16 08:15: Anion Gap 10, BUN/Creatinine Ratio 9, Blood Urea Nitrogen 14, Calcium Level 9.3 , Carbon Dioxide Level 19, Chloride Level 112, Creatinine 1.55, Estimat Glomerular Filtration Rate 44, Glucose Level 210, Hematocrit 39, Hemoglobin 13.0 , Mean Corpuscular Hemoglobin 30, Mean Corpuscular Hemoglobin Concent 33, Mean Corpuscular Volume 90, Mean Platelet Volume 10.3, Platelet Count 214, Potassium Level 4.3, Red Blood Count 4.36, Red Cell Distribution Width 13.4, Sodium Level 141, White Blood Count 6.4 06/01/16 11:17: Glucometer 171 Radiology Reviewed chest x-ray no acute process Discharge Home Medications: Active Scripts Active Reported Anoro Ellipta 62.5-25 Mcg INH (Umeclidinium Brm/Vilanterol Tr) 1 Each Blst.w.dev 1 Puff IH DAILY Loratadine 10 Mg Tablet 10 Mg PO DAILY Pentoxifylline 400 Mg Tablet.er 400 Mg PO TID Cilostazol 100 Mg Tablet 100 Mg PO BID Nitrostat (Nitroglycerin) 0.4 Mg Tab.subl 0.4 Mg SL UD PRN Clopidogrel (Clopidogrel Bisulfate) 75 Mg Tablet 75 Mg PO DAILY Montelukast Sodium 10 Mg Tablet 10 Mg PO DAILY Metoprolol Tartrate 25 Mg Tablet 12.5 Mg PO DAILY TAKES 1/2 OF A (25 MG) Digoxin 125 Mcg Tablet 125 Mcg PO DAILY Glipizide 10 Mg Tablet 10 Mg PO DAILY Gabapentin 300 Mg Capsule 600 Mg PO HS TAKES 2 (300 MG) CAPSULES Trazodone HCl 50 Mg Tablet 50 Mg PO HS Enalapril Maleate 10 Mg Tablet 10 Mg PO BID Levemir Flextouch (Insulin Detemir) 100 Unit/1 Ml Insuln.pen 43 Unit SQ HS Fish Oil 1,000 Mg Softgel ([place]-3/Dha/Epa/Fish Oil) 1,000 Mg Capsule 1,000 Mg PO BID Aspir 81 (Aspirin) 81 Mg Tablet.dr 81 Mg PO DAILY Instructions to patient/family Please see electonic discharge instructions given to patient. Clinical Quality Measures AMI/AHF: ASA po Prior to arrival: No DVT/VTE Risk/Contraindication: Risk Factor Score Per Nursin RFS Level Per Nursing on Admit: 3=High Contraindications-Pharm: Other *list below* LLUVIA ROUSE DO Jun 05, 2016 07:23
--- NOTE | 2016-06-07 07:44 | Physician Query-General Query ---
Physician Query-General Query to Physician: 1) The diagnosis of DKA was given by the ER physician. Please clarify if you agree or disagree with this diagnosis 2) There is conflicting documentation regarding acute renal failure and acute renal insufficiency. Please clarify if the patient has acute renal failure or acute renal insufficiency thank you PHYSICIAN RESPONSE: Based on the clinical findings in the record, please respond to the query above on this document as an addendum. Possible, probable, or questionable diagnosis can be coded for INPATIENTS ONLY. Physician Response: Physician Response number 1 is no.. Acute renal insufficiency If you have questions please contact: Supervisor [employer]: Ext: Thank you for your time and cooperation. 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
[2016-09-22] MEDS ORDERED: DRON400T2 PO (10:13)
[2016-09-22] MEDS ORDERED: FLUT16SP22 NS (10:13)
[2016-09-22] MEDS ORDERED: METO-333 PO (10:13)
[2016-09-22] MEDS ORDERED: ENAL5TAB PO (10:13)
== END 2016-06-01 12:30 | disposition home or self-care (01) | DRG 641 ==
LOC: EDUNIT# 20:07 → ER 20:08 → ICU 21:15 → 4TH 05-31 19:47
PROVIDERS: ADMIT Family Medicine; ATTEND Family Medicine
DX: E86.0 Dehydration (principal); K52.9 Noninfective gastroenteritis and colitis, unspecified; E11.65 Type 2 diabetes mellitus with hyperglycemia; R07.9 Chest pain, unspecified; I25.10 Atherosclerotic heart disease of native coronary artery without angina pectoris; I25.2 Old myocardial infarction; E11.43 Type 2 diabetes mellitus with diabetic autonomic (poly)neuropathy; I12.9 Hypertensive chronic kidney disease with stage 1 through stage 4 chronic kidney disease, or unspecified chronic kidney disease; I48.91 Unspecified atrial fibrillation; J44.9 Chronic obstructive pulmonary disease, unspecified; I70.203 Unspecified atherosclerosis of native arteries of extremities, bilateral legs; G47.30 Sleep apnea, unspecified; K21.9 Gastro-esophageal reflux disease without esophagitis; Z79.4 Long term (current) use of insulin; Z95.1 Presence of aortocoronary bypass graft; Z95.5 Presence of coronary angioplasty implant and graft; Z95.820 Peripheral vascular angioplasty status with implants and grafts; Z87.891 Personal history of nicotine dependence
CPT/HCPCS: 36415; 71010; 80048; 80053; 80061; 80162; 81000; 82150; 82550; 82553; 82805; 82962; 83605; 83690; 83735; 83874; 83880; 84100; 84484; 85025; 85027; 85610; 85730; 87081; 93005; 93041; 96361; 96374

== ENCOUNTER 2016-06-05 11:39 | Emergency (ER) | payer MEDICARE, MEDICAID ==
[~2016-06-05] VITALS: Ht 182.9 cm; Wt 88.0 kg
[~2016-06-05 11:39] MED LIST changes: +AMOX-358 PO; +UMEC1BLS IH
--- OUTSIDE RECORDS SUMMARY | 2016-06-05 11:46 | XMS REPORT | Continuity of Care Document ---
Author Author [facility] Organization [facility] Address Unknown Phone Unavailable Support Name Relationship Address Phone HERONLLUVIA KIM Gabe RIVERA Caregiver [address] [place] [address] DMITRY MEZA MD Caregiver [address] [facility] [place] [address] TYLER TOLENTINO Next Of Kin [address] [place] [address] Insurance Providers Payer Name Policy Number Subscriber Name Relationship [employer] Medicare [id number] Castro Tolentino 20 Self / Same As Patient [facility] Amerigrp [id number] Castro Tolentino Self / Same As Patient Advance Directives Directive Response Recorded Date/Time Advance Directives No 03/19/14 7:42am Health Care Power of Server Developer No 03/19/14 7:42am Organ Donor No 03/19/14 [...] HOURS PRN 14 Qty 02/18/10 03/08/10 Discontinued [place]-3/Dha/Epa/Fish Oil 2,000 Mg PO TWICE A DAY [...] NSEACH TWICE A DAY 12/18/12 04/23/13 Discontinued [place]-3 Fatty Acids/Fish Oil 2,000 Mg PO TWICE [...] PRN CHEST PAIN 20 Qty 03/20/14 Active [[place] 3 Polyunsat Fatty Acids] 2,000 Mg PO [...] Instructions: 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 No heavy lifting for [...] Type Severity Reaction Status Last Updated Penicillins ([id number]) Allergy Unknown Active 08/03/05 morphine Allergy Unknown Active 08/03/05 naproxen ([id number]) Allergy Mild Active 08/14/08 Amoxicillin ([id number]) Allergy Unknown Active 08/03/05 Diclofenac ([id number]) Allergy Mild Active 09/15/08 celecoxib Allergy Mild [...] F (97.6 - 99.5) Temperature (Calculated Celsius) 36.54489 degrees C (36.4 - 37.5) Temperature Source Tympanic Pulse Rate (adult) 66 bpm (60 - 90) Respiratory Rate 20 bpm (12 - 24) O2 Sat by Pulse Oximetry 98 % (88 - 100) Blood Pressure 172/82 mm Hg Pain Pain Intensity 1 Height (Feet) 6 feet Height (Inches) 2.00 inches Height (Calculated Centimeters) 187.845846 cm Weight (Pounds) 187 pounds Weight (Calculated Grams) 99508.774 gm Weight (Calculated Kilograms) 84.773972 kilograms Calculated BMI 24.01 Results Test Source [...] SELECTED GROUPS OF HIGH RISK PATIENTS. [employer] CONSENSUS CONFERENCE ON [...] /obtained? YSpecimen Description CLEAN CATCH Urine Specific [place] September 14, 2013 5:11pm 1.010 L - [...] - Has specimen been collected/obtained? YComments to Hospital Pharmacy Technician: Y Serum Alcohol February 18, 2010 7:10am < 5 MG/DL -5 Glucometer November 05, 2013 5:57am 130 MG/DL H 70-110 Lab Scanned Report April 16, 2012 9:07pm LAB Reports [id number] - Estimat Glomerular Filtration Rate November 03, [...] SELECTED GROUPS OF HIGH RISK PATIENTS. [employer] CONSENSUS CONFERENCE ON ANTITHROMBOTIC THERAPY (2000). MRSA Screen Nasal August 05, 2013 10:35am Gram Stain Cyst/Abscess-Bursa September 28, 2013 6:45pm Procedures Procedure Status Date Provider(s) Tracing only of electrocardiogram completed 03/19/14 DMITRY MEZA MD Encounters Encounter Location Date/Time Discharged Inpatient [facility] 03/19/14 9:12am Registered Clinic [facility] 03/12/14 3:08pm Recent Diagnosis PAD (peripheral artery disease)
--- NOTE | 2016-06-05 12:22 | ED GU-Male ---
General Chief Complaint: -Male Stated Complaint: RIGHT SIDE PAIN/UNABLE TO URINATE Nursing Triage Note: PT REPORTS R SIDED PAIN X 1 MONTH. PT REPROTS WORSE TODAY AND RADIATES TO GROIN TODAY. PT ALSO REPORTS HE FEELS LIKE HE CANNOT COMPLETELY EMPTY HIS BLADDER. Source: patient Exam Limitations: no limitations History of Present Illness Time seen by provider: 12:20 Initial Comments To ER for Dr. Dr. Rouse's office with reports of right-sided abdominal pain and sensation of incomplete bladder emptying. Symptoms of the present intermittently for one month. No fevers or chills. Pain starts in the right flank and radiates to the right groin. No nausea vomiting or diarrhea. Last bowel movement was this morning and was normal. Timing/Duration: intermittent Severity/Quality: moderate Location: right flank Radiation: groin Activities at Onset: none Prior Genitourinary Problems: none Associated Symptoms: denies symptoms Allergies and Home Medications Allergies Coded Allergies: celecoxib (Unverified Allergy, Mild, TAKES ASPIRIN AT HOME, 12/21/14) diclofenac (Unverified Allergy, Mild, TAKES ASPIRIN AT HOME, 12/21/14) naproxen (Unverified Allergy, Mild, TAKES ASPIRIN AT HOME, 12/21/14) rosuvastatin (Unverified Allergy, Mild, 08/14/08) Penicillins (Verified Allergy, Unknown, 08/03/05) amoxicillin (Verified Allergy, Unknown, 08/03/05) fenofibrate (Unverified Allergy, Unknown, 06/05/16) morphine (Verified Allergy, Unknown, TAKES HYDROCODONE AT HOME, 07/17/14) simvastatin (Unverified Allergy, Unknown, 06/05/16) Uncoded Allergies: GEMIFIBOROZIL (Allergy, Unknown, 06/05/16) Home Medications Aspirin 81 Mg Tablet.dr 81 MG PO DAILY (Reported) Cilostazol 100 Mg Tablet 100 MG PO BID (Reported) Clopidogrel Bisulfate 75 Mg Tablet 75 MG PO DAILY (Reported) Digoxin 125 Mcg Tablet 125 MCG PO DAILY (Reported) Enalapril Maleate 10 Mg Tablet 10 MG PO BID (Reported) Gabapentin 300 Mg Capsule 600 MG PO HS (Reported) TAKES 2 (300 MG) CAPSULES Glipizide 10 Mg Tablet 10 MG PO DAILY (Reported) Insulin Detemir 100 Unit/1 Ml Insuln.pen 43 UNIT SQ HS (Reported) Loratadine 10 Mg Tablet 10 MG PO DAILY (Reported) Metoprolol Tartrate 25 Mg Tablet 12.5 MG PO DAILY (Reported) TAKES 1/2 OF A (25 MG) Montelukast Sodium 10 Mg Tablet 10 MG PO DAILY (Reported) Nitroglycerin 0.4 Mg Tab.subl 0.4 MG SL UD PRN PRN CHEST PAIN (Reported) [place]-3/Dha/Epa/Fish Oil 1,000 Mg Capsule 1,000 MG PO BID (Reported) Pentoxifylline 400 Mg Tablet.er 400 MG PO TID (Reported) Trazodone HCl 50 Mg Tablet 50 MG PO HS (Reported) Umeclidinium Brm/Vilanterol Tr 1 Each Blst.w.dev 1 PUFF IH DAILY (Reported) Constitutional: see HPINo chills, No fever EENTM: see HPI Respiratory: no symptoms reported Cardiovascular: no symptoms reported Genitourinary: see HPI dysuria Musculoskeletal: no symptoms reported Skin: no symptoms reported Psychiatric/Neurological: No Symptoms Reported Endocrine: No Symptoms Reported Past Ykowcwr-Ihcjug-Survch Hx Patient Social History Alcohol Use: Denies Use Recreational Drug Use: No Smoking Status: Former Smoker Type Used: Cigarettes Former Smoker/When Quit: May 31, 1999 Recent Foreign Travel: No Contact w/Someone Who Travel: No Recent Infectious Disease Expo: No Recent Hopitalizations: Yes (03/2016) Physical Abuse Screen: No Sexual Abuse: No Immunizations Up To Date Tetanus Booster (TDap): More than 5yrs PED Vaccines UTD: No Date of Pneumonia Vaccine: Jun 14, 2015 Date of Influenza Vaccine: Feb 12, 2016 Seasonal Allergies Seasonal Allergies: Yes Surgeries HX Surgeries: Yes (r knee, back surgery, CABGX4, ANGIO SEAL R LEG, HERNIA REPIAR, ) Surgeries: Abdominal, Cardiac, CABG, Coronary Stent, Eye Surgery, Gallbladder, Open Heart Surgery, Orthopedic, Vascular Surgery Respiratory Hx Respiratory Disorders: Yes (CHRONIC DYSPNEA ON EXERTION) Respiratory Disorders: Sleep Apnea, COPD Cardiovascular Hx Cardiac Disorders: Yes Cardiac Disorders: Atrial Fibrillation, Coronary Artery Disease, Heart Attack, High Cholesterol, Hypertension, Peripheral Vascular Neurological Hx Neurological Disorders: Yes (POSSIBLE STROKE/ TIA) Neurological Disorders: Stroke, TIA Reproductive System Hx Reproductive Disorders: No Sexually Transmitted Disease: No HIV/AIDS: No Genitourinary Hx Genitourinary Disorders: Yes (RENAL INSUFFICIENCY) Genitourinary Disorders: Benign Prostatic Hyperpl, Prostate Problems, Renal Failure Gastrointestinal Hx Gastrointestinal Disorders: Yes (GASTROPARESIS; GASTRITIS; DUODENITIS; COLON POLYPECTOMY) Gastrointestinal Disorders: Gastroesophageal Reflux, Pancreatitis, Polyps Musculoskeletal Hx Musculoskeletal Disorders: Yes (OLECRANON BURSITIS, CHRONIC NECK PAIN, DISH SYNDROME) Musculoskeletal Disorders: Arthritis, Chronic Back Pain Endocrine Hx Endocrine Disorders: Yes Endocrine Disorders: Diabetes, Insulin dep HEENT HX ENT Disorders: Yes (SINUS PROBLEMS) HEENT Disorders: Cataract Loss of Vision: Denies Hearing Impairment: Denies Cancer Hx Cancer: No Psychosocial Hx Psychiatric Problems: Yes Behavioral Health Disorders: Anxiety Integumentary HX Skin/Integumentary Disorder: No Blood Transfusions Hx Blood Disorders: No Adverse Reaction to a Blood Tr: No Family Medical History Family Medial History: Cancer G8 BROTHER Cataract 19 FATHER 19 MOTHER G8 BROTHER G8 BROTHER G8 SISTER Congestive heart failure 19 FATHER 19 MOTHER Family history: Arthritis 19 FATHER 19 MOTHER G8 BROTHER G8 BROTHER G8 SISTER G8 SISTER DAUGHTER SON Family history: Breast disease DAUGHTER Family history: Cardiovascular disease 19 FATHER Family history: Diabetes mellitus 19 FATHER G8 BROTHER G8 SISTER Family history: Hypertension 19 FATHER 19 MOTHER G8 BROTHER G8 BROTHER G8 SISTER G8 SISTER DAUGHTER SON Family history: Thyroid disorder DAUGHTER Heart disease 19 FATHER 19 MOTHER G8 BROTHER Hypercholesterolemia 19 FATHER 19 MOTHER G8 BROTHER G8 BROTHER G8 SISTER Myocardial infarction 19 FATHER 19 MOTHER G8 BROTHER No Family History of: Abdominal aortic aneurysm Lewis's disease Alcoholism Aphasia Cancer of colon Chest pain Congenital heart disease Cystic fibrosis Dementia Dysphagia Family history: Allergy Family history: Alzheimer's disease Family history: Asthma Family history: Coronary thrombosis Family history: Gastrointestinal disease Family history: Glaucoma Family history: Osteoporosis Headache Hearing loss Hereditary disease History of - anemia History of - disorder History of - respiratory disease History of drug abuse Human immunodeficiency virus (HIV) seropositivity Infertile Kidney disease Malignant neoplasm of lung Parkinson's disease Prostate cancer Psychotic disorder Seizure disorder Stroke Tuberculosis Visual impairment Physical Exam Vital Signs Vital Sign - Last 12Hours 06/05/16 12:04 Temp 98.2 Pulse 80 Resp 16 B/P 121/81 Pulse Ox 96 O2 Delivery Room Air Capillary Refill : Less Than 3 Seconds General Appearance: WD/WN no apparent distress HEENT: PERRL/EOMI normal ENT inspection Neck: non-tender full range of motion Respiratory: normal breath sounds no respiratory distress no accessory muscle use Gastrointestinal: normal bowel sounds non tender soft Neurologic/Psychiatric: alert normal mood/affect oriented x 3 Skin: normal color warm/dry Progress/Results/Core Measures Results/Orders Lab Results Laboratory Tests Test 06/05/16 12:11 06/05/16 12:21 Range/Units Urine Bacteria NEGATIVE /HPF Urine Bilirubin NEGATIVE NEGATIVE Urine Casts NONE /LPF Urine Clarity CLEAR Urine Color YELLOW Urine Crystals NONE /LPF Urine Culture Indicated NO Urine Glucose (UA) 1+ H NEGATIVE Urine Ketones NEGATIVE NEGATIVE Urine Leukocyte Esterase NEGATIVE NEGATIVE Urine Mucus NEGATIVE /LPF Urine Nitrite NEGATIVE NEGATIVE Urine Protein NEGATIVE NEGATIVE Urine RBC NONE /HPF Urine RBC (Auto) NEGATIVE NEGATIVE Urine Specific [place] 1.010 L 1.016-1.022 Urine Squamous Epithelial Cells 5-10 /HPF Urine Urobilinogen NORMAL NORMAL MG/DL Urine WBC NONE /HPF Urine pH 6 5-9 Anion Gap 9 5-14 MMOL/L BUN/Creatinine Ratio 10 Basophils # (Auto) 0.0 0.0-0.1 10^3/uL Basophils (%) (Auto) 0 0-10 % Blood Urea Nitrogen 16 7-18 MG/DL Calcium Level 10.2 H 8.5-10.1 MG/DL Carbon Dioxide Level 21 21-32 MMOL/L Chloride Level 103 98-107 MMOL/L Creatinine 1.59 H 0.60-1.30 MG/DL Eosinophils # (Auto) 0.3 0.0-0.3 10^3/uL Eosinophils (%) (Auto) 3 0-10 % Estimat Glomerular Filtration Rate 43 Glucose Level 204 H 70-105 MG/DL Hematocrit 46 40-54 % Hemoglobin 15.5 13.3-17.7 G/DL Lymphocytes # (Auto) 2.1 1.0-4.0 X 10^3 Lymphocytes (%) (Auto) 23 12-44 % Mean Corpuscular Hemoglobin 30 25-34 PG Mean Corpuscular Hemoglobin Concent 34 32-36 G/DL Mean Corpuscular Volume 88 80-99 FL Mean Platelet Volume 10.1 7.4-10.4 FL Monocytes # (Auto) 0.7 0.0-1.0 X 10^3 Monocytes (%) (Auto) 8 0-12 % Neutrophils # (Auto) 5.8 1.8-7.8 X 10^3 Neutrophils (%) (Auto) 65 42-75 % Platelet Count 279 130-400 10^3/uL Potassium Level 4.3 3.6-5.0 MMOL/L Red Blood Count 5.20 4.35-5.85 10^6/uL Red Cell Distribution Width 13.4 10.0-14.5 % Sodium Level 133 L 135-145 MMOL/L White Blood Count 8.9 4.3-11.0 10^3/uL My Orders Orders-LEONARDO SALGADO APRN Cbc With Automated Diff (06/05/16 12:11) Basic Metabolic Panel (06/05/16 12:11) Ua Culture If Indicated (06/05/16 12:11) Ct Abd/Pelvis Wo(Kidney Stone) (06/05/16 12:14) Vital Signs/I&O Vital Sign - Last 12Hours 06/05/16 12:04 Temp 98.2 Pulse 80 Resp 16 B/P 121/81 Pulse Ox 96 O2 Delivery Room Air Blood Pressure Mean: 94 Diagnostic Imaging Diagonstic Imaging: CT Comments NAME: CASTRO PADRON [facility] REC#: [id number] PT STATUS: REG ER : 1940 PHYSICIAN: LEONARDO SALGADO APRN ADMIT DATE: 06/05/16/ER Draft Date of Exam:06/05/16 CT ABD/PELVIS WO(KIDNEY STONE) PROCEDURE: CT urinary tract, rule out kidney stone. TECHNIQUE: Multiple contiguous axial images were obtained through the abdomen and pelvis without the use of intravenous contrast. INDICATION: Right-sided abdominal pain. COMPARISON: 01/08/2015. FINDINGS: Included views of the lung bases are clear. Note is made of bulky calcification of the mitral and aortic valves. CT ABDOMEN: Single punctate nonobstructive left renal calculus is noted (image 68, series 2). No renal calculi seen on the right. Additionally, no calculi are seen along the course of either ureter. There is no hydroureteronephrosis or other evidence of obstruction. No focal renal mass type lesions are identified on this noncontrast exam. The liver, spleen, pancreas, and adrenal glands have an unremarkable noncontrast CT appearance as well. There is no loculated fluid collection or free air. There is small amount of free fluid within the pelvis. No abnormal mesenteric or retroperitoneal adenopathy is seen. There is diffuse calcified aortic and arterial calcified atherosclerosis. Normal appendix is identified. There is colonic diverticulosis, but no CT evidence of acute diverticulitis. Multiple slightly prominent fluid filled loops of small bowel are noted in the right hemiabdomen. At its widest, the small bowel measures approximately 2.2 cm. This is considered within normal limits. Bony structures show age-related degenerative changes. No acute appearing bony abnormalities are seen. CT PELVIS: There is small amount of free fluid within the pelvis. There is no loculated fluid collection is or free air. No abnormal adenopathy is seen. Bony structures show no acute abnormalities. IMPRESSION: 1. Multiple prominent, yet nondistended fluid-filled loops of small bowel within the right hemiabdomen. The overall appearance is not diagnostic for obstruction, but does raise suspicion for possible underlying enteritis. Clinical correlation recommended. 2. Colonic diverticulosis, but no CT evidence of acute diverticulitis. 3. Normal appendix. 4. Small amount of free fluid within the lower pelvis. Exact etiology is indeterminate, but should be considered abnormal in the male patient. 5. Single nonobstructive punctate left renal calculus. Dictated on workstation # [id number] Dict: 06/05/16 1248 Trans: 06/05/16 1303 [facility] [id number] Interpreted by: FIDE CANTU Electronically signed by: Departure Impression Impression: Primary Impression: Right-sided abdominal pain of unknown cause Additional Impression: Enteritis Disposition: 01 HOME, SELF-CARE Condition: Stable Departure-Patient Inst. Decision time for Depature: 13:11 Referrals: MARLA COHN BRETT D DO GELLENDER, RICHARD A DO (PCP/Family) Primary Care Physician LEN SCHERER MD, TAKAAKI MD Patient Instructions: Acute Abdomen (Belly Pain), Adult (DC) Add. Discharge Instructions: 1. Follow-up with a surgeon of your choosing to further evaluate the cause of your abdominal pain. 2. Return to ER for any concerns 3. Clear liquids only for the next 24 hours All discharge instructions reviewed with patient and/or family. Voiced understanding. Copy Copies To 1: LLUVIA ROUSE DO Copies To 2: LEN SCHERER MD, PETER J APRN Jun 05, 2016 12:22
[2016-06-05 12:23] LABS: BILIRUBIN,URINE NEGATIVE (NEGATIVE); KETONES,URINE NEGATIVE (NEGATIVE); LEUKOCYTE ESTERASE ,URINE NEGATIVE (NEGATIVE); NITRITE,URINE NEGATIVE (NEGATIVE); PH,URINE 6 (5-9); PROTEIN,URINE NEGATIVE (NEGATIVE); UROBILINOGEN,URINE NORMAL (NORMAL)
[2016-06-05 12:29] LABS: BASOPHILS % (AUTO) 0 % (0-10); EOSINOPHILS # (AUTO) 0.3 10^3/uL (0.0-0.3); EOSINOPHILS % (AUTO) 3 % (0-10); LYMPHOCYTES # (AUTO) 2.1 X 10^3 (1.0-4.0); LYMPHOCYTES % (AUTO) 23 % (12-44); MEAN CORPUSCULAR HEMOGLOBIN 30 PG (25-34); MEAN CORPUSCULAR HGB CONC 34 G/DL (32-36); MEAN CORPUSCULAR VOLUME 88 FL (80-99); MEAN PLATELET VOLUME 10.1 FL (7.4-10.4); MONOCYTES # (AUTO) 0.7 X 10^3 (0.0-1.0); MONOCYTES % (AUTO) 8 % (0-12); NEUTROPHILS # (AUTO) 5.8 X 10^3 (1.8-7.8); NEUTROPHILS % (AUTO) 65 % (42-75); PLATELET COUNT 279 10^3/uL (130-400); RED CELL DISTRIBUTION WIDTH 13.4 % (10.0-14.5); WHITE BLOOD COUNT 8.9 10^3/uL (4.3-11.0)
[2016-06-05 12:46] LABS: CALCIUM 10.2 MG/DL (8.5-10.1); CREATININE SERUM 1.59 MG/DL (0.60-1.30); POTASSIUM 4.3 MMOL/L (3.6-5.0)
--- NOTE | 2016-06-05 13:04 | Diagnostic Imaging Report ---
PROCEDURE: CT urinary tract, rule out kidney stone. TECHNIQUE: Multiple contiguous axial images were obtained through the abdomen and pelvis without the use of intravenous contrast. INDICATION: Right-sided abdominal pain. COMPARISON: 01/08/2015. FINDINGS: Included views of the lung bases are clear. Note is made of bulky calcification of the mitral and aortic valves. CT ABDOMEN: Single punctate nonobstructive left renal calculus is noted (image 68, series 2). No renal calculi seen on the right. Additionally, no calculi are seen along the course of either ureter. There is no hydroureteronephrosis or other evidence of obstruction. No focal renal mass type lesions are identified on this noncontrast exam. The liver, spleen, pancreas, and adrenal glands have an unremarkable noncontrast CT appearance as well. There is no loculated fluid collection or free air. There is small amount of free fluid within the pelvis. No abnormal mesenteric or retroperitoneal adenopathy is seen. There is diffuse calcified aortic and arterial calcified atherosclerosis. Normal appendix is identified. There is colonic diverticulosis, but no CT evidence of acute diverticulitis. Multiple slightly prominent fluid filled loops of small bowel are noted in the right hemiabdomen. At its widest, the small bowel measures approximately 2.2 cm. This is considered within normal limits. Bony structures show age-related degenerative changes. No acute appearing bony abnormalities are seen. CT PELVIS: There is small amount of free fluid within the pelvis. There is no loculated fluid collection is or free air. No abnormal adenopathy is seen. Bony structures show no acute abnormalities. IMPRESSION: 1. Multiple prominent, yet nondistended fluid-filled loops of small bowel within the right hemiabdomen. The overall appearance is not diagnostic for obstruction, but does raise suspicion for possible underlying enteritis. Clinical correlation recommended. 2. Colonic diverticulosis, but no CT evidence of acute diverticulitis. 3. Normal appendix. 4. Small amount of free fluid within the lower pelvis. Exact etiology is indeterminate, but should be considered abnormal in the male patient. 5. Single nonobstructive punctate left renal calculus. Dictated by: Dictated on workstation # [id number]
[2016-06-05 13:25] VITALS: BP 122/84
[2016-09-22] MEDS ORDERED: METO-333 PO (10:13)
[2016-09-22] MEDS ORDERED: DRON400T2 PO (10:13)
[2016-09-22] MEDS ORDERED: FLUT16SP22 NS (10:13)
[2016-09-22] MEDS ORDERED: ENAL5TAB PO (10:13)
== END 2016-06-05 13:24 | disposition home or self-care (01) ==
LOC: EDUNIT# 11:39 → ER 11:41
DX: R10.31 Right lower quadrant pain (principal); K57.30 Diverticulosis of large intestine without perforation or abscess without bleeding; N20.0 Calculus of kidney; I10 Essential (primary) hypertension; J44.9 Chronic obstructive pulmonary disease, unspecified; E11.9 Type 2 diabetes mellitus without complications; Z79.84 Long term (current) use of oral hypoglycemic drugs; Z79.02 Long term (current) use of antithrombotics/antiplatelets; Z79.82 Long term (current) use of aspirin; Z79.899 Other long term (current) drug therapy; Z95.1 Presence of aortocoronary bypass graft; Z95.5 Presence of coronary angioplasty implant and graft
CPT/HCPCS: 36415; 74176; 80048; 81000; 85025

== ENCOUNTER 2016-06-20 14:40 | Emergency (ER) | payer MEDICARE, MEDICAID ==
[~2016-06-20] VITALS: Ht 182.9 cm; Wt 88.0 kg
--- OUTSIDE RECORDS SUMMARY | 2016-06-20 14:49 | XMS REPORT | Continuity of Care Document ---
Author Author [facility] Organization [facility] Address Unknown Phone Unavailable Support Name Relationship Address Phone HERONLLUVIA KIM Gabe RIVERA Caregiver [address] [place] [address] DMITRY MEZA MD Caregiver [address] [facility] [place] [address] TYLER TOLENTINO Next Of Kin [address] [place] [address] Insurance Providers Payer Name Policy Number Subscriber Name Relationship [employer]ps Medicare [id number] Castro Tolentino 20 Self / Same As Patient [facility] Amerigrp [id number] Castro Tolentino Self / Same As Patient Advance Directives Directive Response Recorded Date/Time Advance Directives No 03/19/14 7:42am Health Care Power of Engraver [place] No 03/19/14 7:42am Organ Donor No 03/19/14 [...] HOURS PRN 14 Qty 02/18/10 03/08/10 Discontinued [place]-3/Dha/Epa/Fish Oil 2,000 Mg PO TWICE A DAY [...] NSEACH TWICE A DAY 12/18/12 04/23/13 Discontinued [place]-3 Fatty Acids/Fish Oil 2,000 Mg PO TWICE [...] PRN CHEST PAIN 20 Qty 03/20/14 Active [[place] 3 Polyunsat Fatty Acids] 2,000 Mg PO [...] Instructions: follow-up with Dr. Stiles patient's primary fountain jerk for follow-up appointment No heavy lifting for [...] Type Severity Reaction Status Last Updated Penicillins ([id number]) Allergy Unknown Active 08/03/05 morphine Allergy Unknown Active 08/03/05 naproxen ([id number]) Allergy Mild Active 08/14/08 Amoxicillin ([id number]) Allergy Unknown Active 08/03/05 Diclofenac ([id number]) Allergy Mild Active 09/15/08 celecoxib Allergy Mild [...] F (97.6 - 99.5) Temperature (Calculated Celsius) 36.79340 degrees C (36.4 - 37.5) Temperature Source Tympanic Pulse Rate (adult) 66 bpm (60 - 90) Respiratory Rate 20 bpm (12 - 24) O2 Sat by Pulse Oximetry 98 % (88 - 100) Blood Pressure 172/82 mm Hg Pain Pain Intensity 1 Height (Feet) 6 feet Height (Inches) 2.00 inches Height (Calculated Centimeters) 187.548187 cm Weight (Pounds) 187 pounds Weight (Calculated Grams) 68118.774 gm Weight (Calculated Kilograms) 84.537505 kilograms Calculated BMI 24.01 Results Test Source [...] SELECTED GROUPS OF HIGH RISK PATIENTS. [employer] CONSENSUS CONFERENCE ON [...] /obtained? YSpecimen Description CLEAN CATCH Urine Specific [place] September 14, 2013 5:11pm 1.010 L - [...] - Has specimen been collected/obtained? YComments to Healthcare Facility Administrator: Y Serum Alcohol February 18, 2010 7:10am < 5 MG/DL -5 Glucometer November 05, 2013 5:57am 130 MG/DL H 70-110 Lab Scanned Report April 16, 2012 9:07pm LAB Reports [id number] - Estimat Glomerular Filtration Rate November 03, [...] SELECTED GROUPS OF HIGH RISK PATIENTS. [employer] CONSENSUS CONFERENCE ON ANTITHROMBOTIC THERAPY (2000). MRSA Screen Nasal August 05, 2013 10:35am Gram Stain Cyst/Abscess-Bursa September 28, 2013 6:45pm Procedures Procedure Status Date Provider(s) Tracing only of electrocardiogram completed 03/19/14 DMITRY MEZA MD Encounters Encounter Location Date/Time Discharged Inpatient Via [facility] 03/19/14 9:12am Registered Clinic [facility] 03/12/14 3:08pm Recent Diagnosis PAD (peripheral artery disease)
[2016-06-20] MEDS ORDERED: DRON400T2 (14:55)
--- NOTE | 2016-06-20 15:54 | ED Upper Extremity ---
General Chief Complaint: Laceration Stated Complaint: LEFT ARM LAC Nursing Triage Note: AMB TO ROOM REPORTS FELL ON L ARM ONTO LOG WHILE OUT [employer]. SKIN TEAR NOTED TO L UPPER ARM. Nursing Sepsis Screen: No Definite Risk Source: patient, spouse Exam Limitations: no limitations History of Present Illness Time seen by provider: 15:20 Initial Comments 76 yo male patient presents to the ED with c/o left arm skin tear. patient states he fell while out fishing. left arm landed on a log. denies headache, dizziness, LOC, confusion, neck pain or back pain. Onset: this afternoon Pain/Injury Location: left arm Method of Injury: fell, incised ((skin tear)) Modifying Factors: Worse With Other (palpation) Allergies and Home Medications Allergies Coded Allergies: celecoxib (Unverified Allergy, Mild, TAKES ASPIRIN AT HOME, 12/21/14) diclofenac (Unverified Allergy, Mild, TAKES ASPIRIN AT HOME, 12/21/14) naproxen (Unverified Allergy, Mild, TAKES ASPIRIN AT HOME, 12/21/14) rosuvastatin (Unverified Allergy, Mild, 08/14/08) Penicillins (Verified Allergy, Unknown, 08/03/05) amoxicillin (Verified Allergy, Unknown, 08/03/05) fenofibrate (Unverified Allergy, Unknown, 06/05/16) morphine (Verified Allergy, Unknown, TAKES HYDROCODONE AT HOME, 07/17/14) simvastatin (Unverified Allergy, Unknown, 06/05/16) Uncoded Allergies: GEMIFIBOROZIL (Allergy, Unknown, 06/05/16) Home Medications Aspirin 81 Mg Tablet.dr 81 MG PO DAILY (Reported) Clopidogrel Bisulfate 75 Mg Tablet 75 MG PO DAILY (Reported) Digoxin 125 Mcg Tablet 125 MCG PO DAILY (Reported) Dronedarone HCl 400 Mg Tablet #60 (Reported) Enalapril Maleate 10 Mg Tablet 10 MG PO BID (Reported) Gabapentin 300 Mg Capsule 600 MG PO HS (Reported) TAKES 2 (300 MG) CAPSULES Glipizide 10 Mg Tablet 10 MG PO DAILY (Reported) Insulin Detemir 100 Unit/1 Ml Insuln.pen 43 UNIT SQ HS (Reported) Loratadine 10 Mg Tablet 10 MG PO DAILY (Reported) Metoprolol Tartrate 25 Mg Tablet 12.5 MG PO DAILY (Reported) TAKES 1/2 OF A (25 MG) Montelukast Sodium 10 Mg Tablet 10 MG PO DAILY (Reported) Nitroglycerin 0.4 Mg Tab.subl 0.4 MG SL UD PRN PRN CHEST PAIN (Reported) [place]-3/Dha/Epa/Fish Oil 1,000 Mg Capsule 1,000 MG PO BID (Reported) Pentoxifylline 400 Mg Tablet.er 400 MG PO TID (Reported) Trazodone HCl 50 Mg Tablet 50 MG PO HS (Reported) Umeclidinium Brm/Vilanterol Tr 1 Each Blst.w.dev 1 PUFF IH DAILY (Reported) Constitutional: No diaphoresis, No dizziness, No weakness EENTM: no symptoms reported Respiratory: no symptoms reported Cardiovascular: no symptoms reported Gastrointestinal: no symptoms reported Musculoskeletal: No joint pain, No joint swelling Skin: see HPI other (skin tear of the left arm.) Psychiatric/Neurological: Denies Headache, Denies Numbness, Denies Paresthesia , Denies Seizure, Denies Tingling, Denies Weakness All Other Systems Reviewed Negative Unless Noted: Yes (Negative excepted noted.) Past [id number]-[id number] Hx Patient Social History Alcohol Use: Denies Use Recreational Drug Use: No Smoking Status: Never a Smoker Type Used: Cigarettes Former Smoker/When Quit: May 31, 1999 Recent Foreign Travel: No Contact w/Someone Who Travel: No Recent Infectious Disease Expo: No Recent Hopitalizations: Yes (03/2016) Immunizations Up To Date Tetanus Booster (TDap): Less than 5yrs (2 months ago.) PED Vaccines UTD: No Date of Pneumonia Vaccine: Jun 14, 2015 Date of Influenza Vaccine: Feb 12, 2016 Seasonal Allergies Seasonal Allergies: Yes Surgeries HX Surgeries: Yes (r knee, back surgery, CABGX4, ANGIO SEAL R LEG, HERNIA REPIAR, ) Surgeries: Abdominal, Cardiac, CABG, Coronary Stent, Eye Surgery, Gallbladder, Open Heart Surgery, Orthopedic, Vascular Surgery Respiratory Hx Respiratory Disorders: Yes (CHRONIC DYSPNEA ON EXERTION) Respiratory Disorders: Sleep Apnea, COPD Cardiovascular Hx Cardiac Disorders: Yes Cardiac Disorders: Atrial Fibrillation, Coronary Artery Disease, Heart Attack, High Cholesterol, Hypertension, Peripheral Vascular Neurological Hx Neurological Disorders: Yes (POSSIBLE STROKE/ TIA) Neurological Disorders: Stroke, TIA Reproductive System Hx Reproductive Disorders: No Sexually Transmitted Disease: No HIV/AIDS: No Genitourinary Hx Genitourinary Disorders: Yes (RENAL INSUFFICIENCY) Genitourinary Disorders: Benign Prostatic Hyperpl, Prostate Problems, Renal Failure Gastrointestinal Hx Gastrointestinal Disorders: Yes (GASTROPARESIS; GASTRITIS; DUODENITIS; COLON POLYPECTOMY) Gastrointestinal Disorders: Gastroesophageal Reflux, Pancreatitis, Polyps Musculoskeletal Hx Musculoskeletal Disorders: Yes (OLECRANON BURSITIS, CHRONIC NECK PAIN, DISH SYNDROME) Musculoskeletal Disorders: Arthritis, Chronic Back Pain Endocrine Hx Endocrine Disorders: Yes Endocrine Disorders: Diabetes, Insulin dep HEENT HX ENT Disorders: Yes (SINUS PROBLEMS) HEENT Disorders: Cataract Loss of Vision: Denies Hearing Impairment: Denies Cancer Hx Cancer: No Psychosocial Hx Psychiatric Problems: Yes Behavioral Health Disorders: Anxiety Integumentary HX Skin/Integumentary Disorder: No Blood Transfusions Hx Blood Disorders: No Adverse Reaction to a Blood Tr: No Reviewed Nursing Assessment Reviewed/Agree w Nursing PMH: Yes Family Medical History Significant Family History: No Pertinent Family Hx Family Medial History: Cancer G8 BROTHER Cataract 19 FATHER 19 MOTHER G8 BROTHER G8 BROTHER G8 SISTER Congestive heart failure 19 FATHER 19 MOTHER Family history: Arthritis 19 FATHER 19 MOTHER G8 BROTHER G8 BROTHER G8 SISTER G8 SISTER DAUGHTER SON Family history: Breast disease DAUGHTER Family history: Cardiovascular disease 19 FATHER Family history: Diabetes mellitus 19 FATHER G8 BROTHER G8 SISTER Family history: Hypertension 19 FATHER 19 MOTHER G8 BROTHER G8 BROTHER G8 SISTER G8 SISTER DAUGHTER SON Family history: Thyroid disorder DAUGHTER Heart disease 19 FATHER 19 MOTHER G8 BROTHER Hypercholesterolemia 19 FATHER 19 MOTHER G8 BROTHER G8 BROTHER G8 SISTER Myocardial infarction 19 FATHER 19 MOTHER G8 BROTHER No Family History of: Abdominal aortic aneurysm Robel's disease Alcoholism Aphasia Cancer of colon Chest pain Congenital heart disease Cystic fibrosis Dementia Dysphagia Family history: Allergy Family history: Alzheimer's disease Family history: Asthma Family history: Coronary thrombosis Family history: Gastrointestinal disease Family history: Glaucoma Family history: Osteoporosis Headache Hearing loss Hereditary disease History of - anemia History of - disorder History of - respiratory disease History of drug abuse Human immunodeficiency virus (HIV) seropositivity Infertile Kidney disease Malignant neoplasm of lung Parkinson's disease Prostate cancer Psychotic disorder Seizure disorder Stroke Tuberculosis Visual impairment Physical Exam Vital Signs Vital Sign - Last 12Hours 06/20/16 14:45 Temp 98.7 Pulse 75 Resp 18 B/P 111/75 Pulse Ox 95 O2 Delivery Room Air Capillary Refill : Less Than 3 Seconds General Appearance: WD/WN no apparent distress HEENT: PERRL/EOMI pharynx normal Neck: non-tender full range of motion supple normal inspection Cardiovascular: regular rate, rhythm no murmur Respiratory: lungs clear normal breath sounds no respiratory distress Shoulder: normal inspection non-tender no evidence of injury normal ROM Elbow/Forearm: non-tender (unable to reproduce tenderness on exam.), normal ROM , Left (6 cm partial thickness laceration/skin tear. no active bleeding or foreign body noted.) Wrist: Yes normal inspection, Yes non-tender, Yes no evidence of injury, Yes normal ROM Hand: normal inspection, non-tender, no evidence of injury, normal ROM, Left Neurologic/Tendon: normal sensation normal motor functions normal tendon functions responds to pain no evidence tendon injury Neurologic/Psychiatric: work counselor II-XII nml as tested no motor/sensory deficits alert normal mood/affect oriented x 3 Skin: normal color warm/dry other (6 cm partial thickness laceration/skin tear. no active bleeding or foreign body noted.) Laceration Repair : Wound Location: Upper Extremities (left lateral arm) Wound Length (cm): 6 Wound's Depth, Shape: superficial, irregular (partial thickness laceration/ skin tear) Wound Explored: clean Betadine Prep?: No (wound scrubbed with chlorhexadine and sterile saline. ) Other Closure Supply: Wound Adhesive Progress blood loss minimal. patient tolerated the procedure well. Progress/Results/Core Measures Results/Orders Vital Signs/I&O Vital Sign - Last 12Hours 06/20/16 06/20/16 14:45 16:45 Temp 98.7 Pulse 75 75 Resp 18 18 B/P 111/75 Pulse Ox 95 95 O2 Delivery Room Air Blood Pressure Mean: 87 Departure Communication Progress Notes Patient seen and evaluated. Wound repair performed. Patient refuses CT scan of the head. I discussed all risks, benefits, and possible complications associated with not to performing the CT scan versus proceeding with the diagnostic study. I have also discussed with the patient that he is at a much greater risk of head bleed due to plavix use. All questions answered at the time of exam. Patient voices understanding and continues to refuse CT scan of the head. Dr. Chandler notified of patient's refusal for CT head. Impression Impression: Primary Impression: Superficial laceration Additional Impression: Fall Disposition: 01 HOME, SELF-CARE Condition: Improved Departure-Patient Inst. Decision time for Depature: 15:52 Referrals: LLUVIA ROUSE DO (PCP/Family) Primary Care Physician Patient Instructions: Laceration Repair With Glue (DC) Add. Discharge Instructions: All discharge instructions reviewed with patient and/or family. Voiced understanding. Continue usual home medications. Tylenol Extra Strength over- the-counter as directed for pain. Ice pack for 20 minute intervals as needed for pain. Tomorrow morning you may begin showering with antibacterial soap. Follow-up with your family practitioner for recheck if needed. Return to the emergency department for worsened pain, redness, drainage, swelling, fever, or any other concerns. JENN WADE Jun 20, 2016 15:53
[2016-06-20 16:45] VITALS: BP 111/75
[2016-09-22] MEDS ORDERED: DRON400T2 PO (10:13)
[2016-09-22] MEDS ORDERED: ENAL5TAB PO (10:13)
[2016-09-22] MEDS ORDERED: METO-333 PO (10:13)
[2016-09-22] MEDS ORDERED: FLUT16SP22 NS (10:13)
== END 2016-06-20 16:45 | disposition home or self-care (01) ==
LOC: EDUNIT# 14:40 → ER 14:43
DX: S41.112A Laceration without foreign body of left upper arm, initial encounter (principal); I10 Essential (primary) hypertension; E11.9 Type 2 diabetes mellitus without complications; I48.2 Chronic atrial fibrillation; Z79.84 Long term (current) use of oral hypoglycemic drugs; Z79.4 Long term (current) use of insulin; Z79.82 Long term (current) use of aspirin; Z79.02 Long term (current) use of antithrombotics/antiplatelets; Z79.899 Other long term (current) drug therapy; Z95.1 Presence of aortocoronary bypass graft; Z95.5 Presence of coronary angioplasty implant and graft; W19.XXXA Unspecified fall, initial encounter; Y99.8 Other external cause status

== ENCOUNTER 2016-07-01 23:32 | Emergency (ER) | payer MEDICARE, MEDICAID ==
[~2016-07-01] VITALS: Ht 182.9 cm; Wt 88.0 kg
[~2016-07-01 23:32] MED LIST changes: +DRON400T2
--- OUTSIDE RECORDS SUMMARY | 2016-07-01 23:42 | XMS REPORT | Continuity of Care Document ---
Author Author [facility] Organization [facility] Address Unknown Phone Unavailable Care Team Providers Care Remote Sensing Scientist Name Role Phone LLUVIA ROUSE DO PCP Insurance Providers Payer Name Policy Number Subscriber Name Relationship s Medicare [id number] Castro Tolentino Self / Same As Patient [employer] [facility] [employer] [id number] Castro Tolentino Self / Same As Patient Advance Directives Directive Response Recorded Date/Time Advance Directives No 06/20/16 2:55pm Health Care Power of Blower Room Attendant No 06/20/16 2:55pm Organ Donor No 06/20/16 2:55pm Resuscitation Status Full Code 06/20/16 2:55pm Chief Complaint and Reason for Visit Chief Complaint Laceration Reason for Visit Superficial laceration Problems Active Problems Medical Problem Onset Date Status Abdominal bloating Unknown Acute Acute gastritis Unknown Acute Acute on chronic renal failure Unknown Acute Atrial flutter with rapid ventricular response Unknown Acute Chest pain Unknown Acute Chest wall contusion Unknown Acute Chronic hypertension Unknown Acute DISH (diffuse idiopathic skeletal hyperostosis) Unknown Acute DKA (diabetic ketoacidoses) Unknown Acute Dehydration Unknown Acute Diarrhea Unknown Acute Dyspnea Unknown Acute Enteritis Unknown Acute Epigastric abdominal pain Unknown Acute Epigastric pain Unknown Acute Exacerbation of chronic back pain Unknown Acute Hx of coronary artery disease Unknown Acute Hyperglycemia Unknown Acute IDDM (insulin dependent diabetes mellitus) Unknown Acute Lumbar radiculopathy Unknown Acute Myalgia Unknown Acute PAD (peripheral artery disease) Unknown Acute Paroxysmal atrial flutter Unknown Acute Partial small bowel obstruction Unknown Acute Reflux Unknown Acute Reflux esophagitis Unknown Acute Right-sided abdominal pain of unknown cause Unknown Acute Sprain of knee Unknown Acute Superficial laceration Unknown Acute Upper abdominal pain Unknown Acute Medications Current Home Medications Medication Dose Units Route Directions Days/Qty Instructions Start Date Aspirin 81 Mg 81 Mg Oral Daily 02/26/14 [place]-3/Dha/Epa/Fish Oil 1,000 Mg 1,000 Mg Oral Twice A Day 07/17/14 Insulin Detemir 100 Unit/1 Ml 43 Unit Sub-Q Bedtime 12/21/14 Enalapril Maleate 10 Mg 10 Mg Oral Twice A Day 06/30/15 Trazodone Hcl 50 Mg 50 Mg Oral Bedtime 09/08/15 Gabapentin 300 Mg 600 Mg Oral Bedtime TAKES 2 (300 MG) CAPSULES Glipizide 10 Mg 10 Mg Oral Daily 03/01/16 Digoxin 125 Mcg 125 Mcg Oral Daily 03/01/16 Metoprolol Tartrate 25 Mg 12.5 Mg Oral Daily TAKES 1/2 OF A (25 MG) Montelukast Sodium 10 Mg 10 Mg Oral Daily 03/01/16 Clopidogrel Bisulfate 75 Mg 75 Mg Oral Daily 03/22/16 Nitroglycerin 0.4 Mg 0.4 Mg Sublingual As Directed as needed for Chest Pain 03/22/16 Pentoxifylline 400 Mg 400 Mg Oral Three Times A Day 05/31/16 Loratadine 10 Mg 10 Mg Oral Daily 05/31/16 Umeclidinium Brm/Vilanterol Tr 1 Each 1 Puff Inhalation Daily Dronedarone Hcl 400 Mg 60 06/20/16 Past Home Medications Medication Directions Ordered Status Nitroglycerin 0.4 Mg Btl, 08/14/08 Discontinued [Aspirin] , 08/14/08 Discontinued Clopidogrel Bisulfate 75 Mg Tab, 75 Mg Oral 08/14/08 Discontinued Metformin Hcl 500 Mg Tab, 08/14/08 Discontinued Glipizide (Glucotrol) 5 Mg Tablet, 08/14/08 Discontinued Enalapril Maleate 10 Mg Tab, 08/14/08 Discontinued Metoprolol Succinate (Metoprolol Er 25MG) 25 Mg Tab, 08/14/08 Discontinued Ezetimibe 10 Mg Tablet, 08/14/08 Discontinued Esomeprazole Mag Trihydrate 40 Mg Suspdr.pkt, 08/14/08 Discontinued Tramadol Hcl 50 Mg Tab, 50 - 100 Mg Oral Four Times Daily 08/14/08 Discontinued Metaxalone 800 Mg Tab, 800 Mg Oral Three Times A Day 08/14/08 Discontinued Nitroglycerin 0.4 Mg Tab, 09/15/08 Discontinued Aspirin 81 Mg Tab.chew, 09/15/08 Discontinued Clopidogrel Bisulfate 75 Mg Tablet, 09/15/08 Discontinued Metformin Hcl 500 Mg Tab, 09/15/08 Discontinued Glipizide 5 Mg Tab, 09/15/08 Discontinued Enalapril Maleate 20 Mg Tablet, 09/15/08 Discontinued Metoprolol Succinate (Metoprolol Er 25MG) 25 Mg Tab, 09/15/08 Discontinued Ezetimibe 10 Mg Tablet, 09/15/08 Discontinued Esomeprazole Magnesium 40 Mg Capsule., 09/15/08 Discontinued Fish Oil 1,000 Mg Cap, 09/15/08 Discontinued Acetaminophen/Hydrocodone Bitart 1 Each Tablet, 1 - 2 Each Oral Q4hr Prn 09/19 Discontinued Acetaminophen/Hydrocodone Bitart 1 Each Tablet, 1 Each Oral Q 4 - 6 Hr Prn Discontinued Nitroglycerin 0.4 Mg Subl, 0.4 Mg Oral As Needed 11/12/08 Discontinued Aspirin 81 Mg Chew, 81 Mg Oral Daily 11/12/08 Discontinued Clopidogrel Bisulfate 75 Mg Tablet, 11/12/08 Discontinued Metformin Hcl (Glucophage) 1,000 Mg Tablet, 500 Mg Oral Twice A Day 11/12/08 Discontinued Glipizide (Glucotrol) 5 Mg Tablet, 5 Mg Oral Daily 11/12/08 Discontinued Enalapril Maleate 20 Mg Tablet, 20 Mg Oral Twice A Day 11/12/08 Discontinued Metoprolol Succinate (Metoprolol Er 25MG) 25 Mg Tab, 11/12/08 Discontinued Ezetimibe 10 Mg Tablet, 10 Mg Oral Bedtime 11/12/08 Discontinued Esomeprazole Magnesium 40 Mg Capsule., 11/12/08 Discontinued Insulin Determir 100 Unit/1 Ml Insuln.pen, 25 Unit Sub-Q Bedtime 07/03/09 Discontinued Omeprazole 40 Mg Capsule., 40 Mg Oral Daily 07/03/09 Discontinued Losartan Potassium 25 Mg Tablet, 07/03/09 Discontinued Hyoscyamine Sulfate 0.125 Mg Tab, 1 Each Oral Give Every 6 Hr On Schedule 02/03 Discontinued Propoxyphene Hcl/Acetaminophen 1 Tab Tablet, 1 Each Oral Q 4 - 6 Hrs Prn 05/03 Discontinued Ibuprofen 800 Mg Tab, 800 Mg Oral Three Times A Day 11/11/09 Discontinued Acetaminophen/Hydrocodone Bitart (Vicodin Hp) 1 Each Tablet, 1 Each Oral Q 4 - 6 Hrs Prn 11/11/09 Discontinued Gabapentin 100 Mg Cap, 100 Mg Oral Twice Daily And Prn 11/11/09 Discontinued Clarithromycin 500 Mg Tab, 1000 Mg Oral Daily 02/16/10 Discontinued Fexofenadine Hcl 180 Mg Tablet, 180 Mg Oral Daily 02/16/10 Discontinued Promethazine Hcl 25 Mg/Supp.rect Supp.rect, 1 Supp Rectal Four Times Daily Discontinued Acetaminophen/Hydrocodone Bitart 1 Each Tablet, 1 Each Oral Q4hr Prn Discontinued Ondansetron 4 Mg Tab.rapdis, 4 Mg Oral Every 6 Hours as needed 02/18/10 Discontinued [place]-3/Dha/Epa/Fish Oil 1,000 Mg Capsule, 2000 Mg Oral Twice A Day 03/08/10 Discontinued Fenofibrate (Lofibra) 134 Mg Capsule, 134 Mg Oral Daily 03/08/10 Discontinued Metoprolol Succinate (Toprol Xl) 25 Mg Tab.sr.24h, 1 Each Oral Daily Discontinued Nitroglycerin 0.4 Mg Subl, 1 Tab Oral As Needed 05/27/10 Discontinued Clopidogrel Bisulfate 75 Mg Tablet, 75 Mg Oral Daily 05/27/10 Discontinued Ezetimibe 10 Mg Tablet, 10 Mg Oral Bedtime 05/27/10 Discontinued Alprazolam 0.25 Mg Tablet, 0.5 Tab Oral Daily 05/27/10 Discontinued Acetaminophen/Hydrocodone Bitart 1 Each Tablet, 1 - 2 Each Oral Q4hr Prn 06/24 Discontinued Glipizide (Glucotrol) 5 Mg Tablet, 2.5 - 5 Mg Oral Daily as needed 06/21/11 Discontinued [Gi Cocktail] , as needed 11/29/11 Discontinued Montelukast Sodium 10 Mg Tablet, 10 Mg Oral Daily 03/15/12 Discontinued Triamcinolone Acetonide 16.5 Gm Fine, 16.5 Gm Nasal Twice A Day 11/02/12 Discontinued Pantoprazole Sodium 40 Mg Suspdr.pkt, 40 Mg Oral Daily 04/19/12 Discontinued Atorvastatin Calcium 10 Mg Tablet, 10 Mg Oral Daily 04/19/12 Discontinued Clopidogrel Bisulfate 75 Mg Tablet, 75 Mg Oral Daily 04/19/12 Discontinued Digoxin (Lanoxin) 250 Mcg Tablet, 250 Mcg Oral Daily 04/19/12 Discontinued Metoprolol Succinate (Metoprolol Er 25MG) 25 Mg Tab, 25 Mg Oral Daily Discontinued Metformin Hcl (Glucophage) 500 Mg Tablet, 1000 Mg Oral Twice A Day 12/18/12 Discontinued Nitroglycerin 0.4 Mg Tab, 0 Sublingual As Needed 12/18/12 Discontinued Esomeprazole Magnesium 40 Mg Capsule.dr, 40 Mg Oral Daily 12/18/12 Discontinued Fluticasone Propionate 16 Gm Naspr, 1 Spr Each Nostril Twice A Day 12/18/12 Discontinued [place]-3 Fatty Acids/Fish Oil 1 Each Capsule, 2000 Mg Oral Twice A Day Discontinued [Green Lizard] , As Needed 12/18/12 Discontinued Hydrocodone Bit/Acetaminophen 1 Ea Tab, 1 Tab Oral Every 6 Hours as needed for Pain 12/24/12 Discontinued Pantoprazole Sodium 40 Mg Tablet.dr, 40 Mg Oral Daily 04/23/13 Discontinued Sitagliptin Phosphate 100 Mg Tablet, 100 Mg Oral Daily 04/23/13 Discontinued Atorvastatin Calcium 10 Mg Tablet, 10 Mg Oral Bedtime 04/23/13 Discontinued Montelukast Sodium 10 Mg Tablet, 10 Mg Oral Daily 04/23/13 Discontinued Glipizide (Glucotrol) 5 Mg Tablet, 5 Mg Oral Twice A Day 04/23/13 Discontinued Sucralfate 1 Gm Tab, 1 Gm Oral Before Meals And At Bedtime 04/23/13 Discontinued Pantoprazole Sodium 40 Mg Tablet.dr, 40 Mg Oral 04/23/13 Discontinued Hyoscyamine Sulfate (Levbid) 0.375 Mg Tab.sr.12h, 1 Each Oral Three Times A Day 04/23/13 Discontinued Famotidine (Pepcid) 20 Mg Tablet, 1 Each Oral Twice A Day 07/19/13 Discontinued Ondansetron Hcl 8 Mg/Tab Tab.rapdis, 8 Mg Oral Every 6 Hours as needed for Nausea/Vomiting 07/19/13 Discontinued Alprazolam 0.25 Mg Tablet, 0.125 Mg Oral Daily 08/05/13 Discontinued [Green Lizard] , 15 Ml Oral Daily as needed for Heartburn 08/05/13 Discontinued Metoprolol Succinate (Metoprolol Er 25MG) 25 Mg Tab, 25 Mg Oral Daily Discontinued Acetaminophen/Hydrocodone Bitart 1 Each Tablet, 1 Each Oral Q 4 - 6 Hrs Prn 08/12/13 Discontinued Famotidine (Pepcid) 20 Mg Tablet, 1 Each Oral Twice A Day 09/14/13 Discontinued Omeprazole 40 Mg Capsule.dr, 40 Mg Oral Daily 09/14/13 Discontinued Prednisone 20 Mg Tab, 40 Mg Oral Daily 09/28/13 Discontinued Hydrocodone Bit/Acetaminophen 1 Tab Tablet, 1 Tab Oral Every 4HRS as needed for Pain 09/28/13 Discontinued Famotidine (Pepcid) 20 Mg Tablet, 20 Mg Oral Twice A Day 11/03/13 Discontinued Pantoprazole Sodium 40 Mg Tablet.dr, 40 Mg Oral Daily 11/03/13 Discontinued Metformin Hcl 500 Mg Tablet, 1000 Mg Oral Twice A Day 11/03/13 Discontinued Ropinirole Hcl 1 Mg Tablet, 2 Mg Oral Bedtime 11/03/13 Discontinued Insulin Determir 300 Units/3 Ml Soln, 27 Units Subcutaneously Bedtime Discontinued Montelukast Sodium 10 Mg Tablet, 10 Mg Oral Daily 11/03/13 Discontinued Fenofibrate,Micronized 134 Mg Capsule, 134 Mg Oral Bedtime 11/03/13 Discontinued Digoxin 250 Mcg Tablet, 250 Mcg Oral Daily 11/03/13 Discontinued Atorvastatin Calcium 10 Mg Tablet, 10 Mg Oral Daily 11/03/13 Discontinued Diclofenac Sod 100 Gm Gel, Topically Twice A Day as needed for Back Pain Discontinued Sitagliptin Phosphate 100 Mg Tablet, 100 Mg Oral Daily 11/03/13 Discontinued Enalapril Maleate 5 Mg Tablet, 5 Mg Oral Twice A Day 11/03/13 Discontinued Metoprolol Tartrate 25 Mg Tablet, 25 Mg Oral Daily 11/03/13 Discontinued Clopidogrel Bisulfate 75 Mg Tablet, 75 Mg Oral Daily 11/03/13 Discontinued [Digox] , 125 Mcg Oral Daily 02/26/14 Discontinued Clopidogrel Bisulfate 75 Mg Tablet, 75 Mg Oral Daily 02/26/14 Discontinued Ibuprofen (Motrin) 200 Mg Capsule, 400 Mg Oral Every 6 Hours as needed for Pain 02/26/14 Discontinued Nitroglycerin 0.4 Mg Tab.subl, 0.4 Mg Sublingual As Directed as needed for Chest Pain 03/19/14 Discontinued Digoxin (Lanoxin) 125 Mcg Tablet, 125 Mcg Oral Daily 03/19/14 Discontinued [Acetaminophen] 500 Mg Tab, 500 Mg Oral Four Times Daily as needed for Mild Pain 03/20/14 Discontinued [Aspirin] 81 Mg Tabec, 81 Mg Oral Daily 03/20/14 Discontinued [Atorvastatin Calcium] 10 Mg Tablet, 10 Mg Oral Daily@2100 03/20/14 Discontinued Clopidogrel Bisulfate 75 Mg Tab, 75 Mg Oral Daily 03/20/14 Discontinued Digoxin 0.125 Mg Tab, 0.125 Mg Oral Daily 03/20/14 Discontinued Enalapril Maleate 5 Mg Tab, 5 Mg Oral Twice A Day 03/20/14 Discontinued [Famotidine] 20 Mg Tablet, 20 Mg Oral Twice A Day 03/20/14 Discontinued Fenofibrate 134 Mg Capsule, 134 Mg Oral Bedtime 03/20/14 Discontinued [Glipizide] 5 Mg Tab, 5 Mg Oral Twice A Day With Meals 03/20/14 Discontinued Insulin Human Regular 1 Unit/0.01 Ml Soln, 0 Unit Subcutaneously Before Meals And At Bedtime 03/20/14 Discontinued Insulin Detemir 1 Unit/0.01 Ml Soln, 27 Unit Sub-Q Bedtime 03/20/14 Discontinued Metoprolol Tartrate 25 Mg Tablet, 25 Mg Oral Daily 03/20/14 Discontinued [Montelukast Sodium] 10 Mg Tab, 10 Mg Oral Daily 03/20/14 Discontinued Nitroglycerin 0.4 Mg Subl, 0.4 Mg Sublingual As Directed as needed for Chest Pain 03/20/14 Discontinued [[place] 3 Polyunsat Fatty Acids] 1,000 Mg Cap, 2000 Mg Oral Twice A Day With Meals 03/20/14 Discontinued Pantoprazole Sod 40 Mg Tab, 40 Mg Oral Daily 03/20/14 Discontinued Ropinirole Hcl 1 Mg Tablet, 2 Mg Oral Bedtime 03/20/14 Discontinued [Sitagliptin Phosphate] 50 Mg Tablet, 100 Mg Oral Daily 03/20/14 Discontinued Hydrocodone Bit/Acetaminophen 1 Tab Tablet, 1-2 Tab Oral Every 4HRS as needed for Pain 05/13/14 Discontinued Nitroglycerin 0.4 Mg Tab.subl, 0.4 Mg Sublingual Every 15 Minutes as needed for Chest Pain 07/17/14 Discontinued Atorvastatin Calcium 10 Mg Tablet, 10 Mg Oral Bedtime 07/17/14 Discontinued Clopidogrel Bisulfate 75 Mg Tablet, 75 Mg Oral Daily 07/17/14 Discontinued Digoxin 0.125 Mg Tab, 0.125 Mg Oral Daily 07/17/14 Discontinued Enalapril Maleate 5 Mg Tablet, 5 Mg Oral Twice A Day 07/17/14 Discontinued Famotidine (Pepcid) 20 Mg Tablet, 20 Mg Oral Twice A Day 07/17/14 Discontinued Insulin Detemir 100 U/Ml Insuln.pen, 27 Unit Sub-Q Bedtime 07/17/14 Discontinued Metoprolol Tartrate 25 Mg Tablet, 25 Mg Oral Daily 07/17/14 Discontinued Montelukast Sodium 10 Mg Tablet, 10 Mg Oral Daily as needed for Allergies 10/26 Discontinued Ropinirole Hcl 1 Mg Tablet, 2 Mg Oral Bedtime 07/17/14 Discontinued Glipizide (Glucotrol) 5 Mg Tablet, 10 Mg Oral Twice A Day 07/17/14 Discontinued Sitagliptin Phosphate 100 Mg Tablet, 100 Mg Oral Daily 07/17/14 Discontinued Pantoprazole Sodium 40 Mg Tablet.dr, 40 Mg Oral Daily 07/17/14 Discontinued Fenofibrate,Micronized 134 Mg Capsule, 134 Mg Oral Daily 07/17/14 Discontinued Acetaminophen/Hydrocodone Bitart 1 Each Tablet, 1-2 Tab Oral Q4 -6H as needed for Pain 07/17/14 Discontinued Gabapentin 300 Mg Capsule, 300 Mg Oral Twice A Day 07/17/14 Discontinued Glipizide (Glucotrol) 10 Mg Tablet, 20 Mg Oral Twice A Day 07/17/14 Discontinued Sucralfate 1 Gm Tab, 1 Gm Oral Before Meals And At Bedtime 12/14/14 Discontinued Pravastatin Sodium 80 Mg Tablet, 80 Mg Oral Bedtime 12/21/14 Discontinued Glipizide 10 Mg Tablet, 10 Mg Oral Daily 12/21/14 Discontinued Loratadine 10 Mg Tablet, 10 Mg Oral Daily as needed for Allergies 12/21/14 Discontinued Tamsulosin Hcl 0.4 Mg Cap.er.24h, 1 Cap Oral Daily 12/21/14 Discontinued Hydrocodone/Acetaminophen 1 Each Tablet, 1 Tab Oral Three Times A Day as needed for Pain 12/21/14 Discontinued Digoxin 125 Mcg Tablet, 125 Mcg Oral Daily 12/21/14 Discontinued Gabapentin 300 Mg Capsule, 300 Mg Oral Twice A Day 12/21/14 Discontinued Clopidogrel Bisulfate 75 Mg Tablet, 75 Mg Oral Daily 12/21/14 Discontinued Tamsulosin Hcl 0.4 Mg Cap.er.24h, 0.4 Mg Oral Daily 12/21/14 Discontinued Metoclopramide Hcl 10 Mg Tablet, 10 Mg Oral Before Meals 12/23/14 Discontinued Hydrocodone/Acetaminophen 1 Each Tablet, 1 Each Oral Every 4HRS 01/08/15 Discontinued Sucralfate 1 Gm/10 Ml Oral.susp, 1 Gm Oral Every 6 Hours 04/02/15 Discontinued Fenofibrate,Micronized 134 Mg Capsule, 134 Mg Oral Daily 06/30/15 Discontinued Baclofen 10 Mg Tablet, 10 Oral As Needed 06/30/15 Discontinued Sitagliptin Phosphate 100 Mg Tablet, 100 Mg Oral Daily 06/30/15 Discontinued Tramadol Hcl 50 Mg Tablet, 50 Mg Oral Every 6 Hours as needed for Pain Discontinued Prednisone 20 Mg Tablet, 20 Mg Oral Daily 08/14/15 Discontinued Hydrocodone/Acetaminophen 1 Each Tablet, 1-2 Each Oral Every 6 Hours as needed for Pain 08/14/15 Discontinued Glipizide 10 Mg Tablet, 10 Mg Oral Daily 09/08/15 Discontinued Sitagliptin Phosphate 100 Mg Tablet, 50 Mg Oral Daily 03/01/16 Discontinued Pravastatin Sodium 80 Mg Tablet, 80 Mg Oral Bedtime 03/01/16 Discontinued Hydrocodone/Acetaminophen 1 Each Tablet, 1 Tab Oral Three Times A Day as needed for Pain 03/01/16 Discontinued Naproxen 250 Mg Tablet, 250 Mg Oral Twice A Day as needed for Pain 03/01/16 Discontinued Baclofen 10 Mg Tablet, 10 Mg Oral Three Times A Day as needed for Muscle Spasms 03/01/16 Discontinued Tamsulosin Hcl 0.4 Mg Cap.er.24h, 0.4 Mg Oral 1730 03/01/16 Discontinued Pantoprazole Sodium 40 Mg Tablet.dr, 40 Mg Oral Daily 03/01/16 Discontinued Ticagrelor 90 Mg Tablet, 90 Mg Oral Twice A Day 03/02/16 Discontinued Cilostazol 100 Mg Tablet, 100 Mg Oral Twice A Day 03/02/16 Discontinued Pantoprazole Sodium 40 Mg Tablet.dr, 40 Mg Oral Daily 03/04/16 Discontinued Albuterol Sulfate 8.5 Gm Hfa.aer.ad, 1-2 Puff Inhalation Every 4HRS as needed for Shortness Of Breath 03/09/16 Discontinued Clopidogrel Bisulfate 75 Mg Tablet, 75 Mg Oral Daily 03/21/16 Discontinued Pentoxifylline 400 Mg Tablet.er, 400 Mg Oral Three Times A Day 03/22/16 Discontinued Cilostazol 100 Mg Tablet, 100 Mg Oral Twice A Day 03/22/16 Discontinued Hydrocodone/Acetaminophen 1 Each Tablet, 1 Tab Oral Three Times A Day as needed for Pain 03/22/16 Discontinued Cilostazol 100 Mg Tablet, 100 Mg Oral Twice A Day 05/31/16 Discontinued Amoxicillin/Potassium Clav 1 Each Tablet, 1 Tab Oral Twice A Day 05/31/16 Discontinued Social History Social History Problem Response Recorded Date/Time Alcohol Use Denies Use 11/08/2015 8:27pm Recreational Drug Use No 11/08/2015 8:27pm Recent Foreign Travel No 11/03/2013 9:55am Recent Infectious Disease Exposure No 11/03/2013 9:55am Hospitalization with Isolation Contact 11/24/2013 4:11pm Sexually Transmitted Disease No 06/20/2016 2:55pm HIV/AIDS No 06/20/2016 2:55pm Smoking Status Never a Smoker 06/20/2016 2:55pm Do you dip or chew tobacco? No 11/08/2015 8:27pm Type Used Cigarettes 06/20/2016 2:55pm Recent Hopitalizations Y 03/201606/20/2016 2:55pm Sexually Transmitted Disease No 06/20/2016 2:55pm Hospitalization with Isolation Contact 11/24/2013 4:11pm Query Response Start Date Stop Date Smoking Status Never a Smoker 05/31/1999 Hospital Discharge Instructions No hospital discharge instructions. Plan of Care Discharge Date 06/20/16 4:45pm Disposition 01 HOME, SELF-CARE Condition at Discharge Improved Instructions/Education Provided Laceration Repair With Glue (DC) Prescriptions See Medication Section Referrals LLUVIA ROUSE DO - Primary Care Physician Additional Instructions/Education All discharge instructions reviewed with patient and/or family. Voiced understanding. Continue usual home medications. Tylenol Extra Strength [id number] as directed for pain. Ice pack for 20 minute intervals as needed for pain. Tomorrow morning you may begin showering with antibacterial soap. Follow-up with your family practitioner for recheck if needed. Return to the emergency department for worsened pain, redness, drainage, swelling, fever, or any other concerns. Functional Status No functional status results. Allergies, Adverse Reactions, Alerts Allergen Type Severity Reaction Status Last Updated Penicillins ([id number]) Allergy Unknown Active 08/03/05 Morphine Allergy Unknown TAKES HYDROCODONE AT HOME Active 07/17/14 naproxen ([id number]) Allergy Mild TAKES ASPIRIN AT HOME Active 12/21/14 simvastatin ([id number]) Allergy Unknown Active 06/05/16 amoxicillin ([id number]) Allergy Unknown Active 08/03/05 fenofibrate ([id number]) Allergy Unknown Active 06/05/16 diclofenac ([id number]) Allergy Mild TAKES ASPIRIN AT HOME Active 12/21/14 Celecoxib Allergy Mild TAKES ASPIRIN AT HOME Active 12/21/14 Rosuvastatin Allergy Mild Active 08/14/08 GEMIFIBOROZIL Allergy Unknown Active 06/05/16 Immunizations No immunization records. Vital Signs Acute Vital Signs Vital Response Date/Time Temperature (Fahrenheit) 98.7 degrees F (97.6 - 99.5) 06/20/2016 2:45pm Temperature (Calculated Celsius) 37.38334 degrees C (36.4 - 37.5) 06/20/2016 2:45pm Temperature Source Temporal 06/20/2016 2:45pm Pulse Rate (adult) 75 bpm (60 - 90) 06/20/2016 2:45pm Respiratory Rate 18 bpm (12 - 24) 06/20/2016 2:45pm O2 Sat by Pulse Oximetry 95 % (88 - 100) 06/20/2016 2:45pm Blood Pressure 111/75 mm Hg 06/20/2016 2:45pm Blood Pressure Mean 87 mm Hg 06/20/2016 2:45pm Pain Numeric Pain Scale 7 06/20/2016 2:45pm Height (Feet) 6 feet 06/20/2016 2:45pm Height (Inches) 0.00 inches 05/30/2016 11:20pm Height (Calculated Centimeters) 182.709397 cm 06/20/2016 2:45pm Weight (Pounds) 194 pounds 06/20/2016 2:45pm Weight (Ounces) 1.0 oz 05/31/2016 6:00am Weight (Calculated Grams) 59810.417 gm 05/31/2016 6:00am Weight (Calculated Kilograms) 87.100788 kilograms 06/20/2016 2:45pm Calculated BMI 26.7 05/30/2016 11:20pm Capillary Refill Capillary Refill Less Than 3 Seconds 06/20/2016 2:45pm Results Laboratory Results Test Name Result Units Flags Reference Collection Date/Time Result Date/ Time Comments White Blood Count 6.4 10^3/uL 4.3-11.0 06/01/2016 8:15am 06/01/2016 8: 26am Red Blood Count 4.36 10^6/uL 4.35-5.85 06/01/2016 8:1506/01/2016 8: 26am Hemoglobin 13.0 G/DL L 13.3-17.7 06/01/2016 8:1506/01/2016 8:26am Hematocrit 39 % L 40-54 06/01/2016 8:1506/01/2016 8:26am Mean Corpuscular Volume 90 FL 80-99 06/01/2016 8:1506/01/2016 8: 26am Mean Corpuscular Hemoglobin 30 PG 25-34 06/01/2016 8:15am 06/01/2016 8: 26am Mean Corpuscular Hemoglobin Concent 33 G/DL 32-36 06/01/2016 8:15 8:26am Red Cell Distribution Width 13.4 % 10.0-14.5 06/01/2016 8:15am 2016 8:26am Platelet Count 214 10^3/uL 130-400 06/01/2016 8:1506/01/2016 8:26am Mean Platelet Volume 10.3 FL 7.4-10.4 06/01/2016 8:15am 06/01/2016 8: 26am Neutrophils (%) (Auto) 68 % 42-75 05/31/2016 2:05/31/2016 2:29am Lymphocytes (%) (Auto) 21 % 12-44 05/31/2016 2:am 05/31/2016 2:29am Monocytes (%) (Auto) 9 % 0-12 05/31/2016 2:am 05/31/2016 2:29am Eosinophils (%) (Auto) 2 % 0-10 05/31/2016 2:18am 05/31/2016 2:29am Basophils (%) (Auto) 0 % 0-10 05/31/2016 2:18am 05/31/2016 2:29am Neutrophils # (Auto) 5.9 X 10^3 1.8-7.8 05/31/2016 2:18am 05/31/2016 2: 29am Lymphocytes # (Auto) 1.8 X 10^3 1.0-4.0 05/31/2016 2:18am 05/31/2016 2: 29am Monocytes # (Auto) 0.8 X 10^3 0.0-1.0 05/31/2016 2:18am 05/31/2016 2: 29am Eosinophils # (Auto) 0.2 10^3/uL 0.0-0.3 05/31/2016 2:18am 05/31/2016 2 :29am Basophils # (Auto) 0.0 10^3/uL 0.0-0.1 05/31/2016 2:18am 05/31/2016 2: 29am Prothrombin Time 13.6 SEC 12.2-14.7 05/30/2016 8:34pm 05/30/2016 8: 54pm INR Comment 1.1 0.8-1.4 05/30/2016 8:34pm 05/30/2016 8:54pm INTERPRETIVE DATA SUGGESTED THERAPEUTIC RANGE FOR INR'S: VENOUS THROMBOSIS, PULMONARY EMBOLISM, OR PREVENTION OF SYSTEMIC EMBOLISM (EG. IN ATRIAL FIBRILLATION): 2.0 - 3.0 MECHANICAL PROSTHETIC HEART VALVES: 2.5 - 3.5* *NOTE: INR'S UP TO 4.5 MAY BE NECESSARY IN SELECTED GROUPS OF HIGH RISK PATIENTS. [employer] CONSENSUS CONFERENCE ON ANTITHROMBOTIC THERAPY (2000). Activated Partial Thromboplast Time 26 SEC 24-35 05/30/2016 8:34pm 8:54pm Urine Color YELLOW 05/31/2016 12:47am 05/31/2016 1:05am Urine Clarity CLEAR 05/31/2016 12:47am 05/31/2016 1:05am Urine pH 5 5-9 05/31/2016 12:47am 05/31/2016 1:05am Urine Specific [place] 1.015 * 1.016-1.022 05/31/2016 12:47am 2016 1:05am Urine Protein NEGATIVE NEGATIVE 05/31/2016 12:47am 05/31/2016 1:05am Urine Glucose (UA) 4+ * NEGATIVE 05/31/2016 12:47am 05/31/2016 1:05am Urine RBC (Auto) NEGATIVE NEGATIVE 05/31/2016 12:47am 05/31/2016 1: 05am Urine Ketones NEGATIVE NEGATIVE 05/31/2016 12:47am 05/31/2016 1:05am Urine Nitrite NEGATIVE NEGATIVE 05/31/2016 12:47am 05/31/2016 1:05am Urine Bilirubin NEGATIVE NEGATIVE 05/31/2016 12:47am 05/31/2016 1: 05am Urine Urobilinogen NORMAL MG/DL NORMAL 05/31/2016 12:47am 05/31/2016 1: 05am Urine Leukocyte Esterase NEGATIVE NEGATIVE 05/31/2016 12:47am 2016 1:05am Urine RBC NONE /HPF 05/31/2016 12:47am 05/31/2016 1:05am Urine WBC NONE /HPF 05/31/2016 12:47am 05/31/2016 1:05am Urine Bacteria NEGATIVE /HPF 05/31/2016 12:47am 05/31/2016 1:05am Urine Squamous Epithelial Cells 2-5 /HPF 05/31/2016 12:47am 2016 1:05am Urine Crystals NONE /LPF 05/31/2016 12:47am 05/31/2016 1:05am Urine Casts PRESENT /LPF 05/31/2016 12:47am 05/31/2016 1:05am Urine Hyaline Casts 5-10 /LPF * 05/31/2016 12:47am 05/31/2016 1:05am Urine Mucus NEGATIVE /LPF 05/31/2016 12:47am 05/31/2016 1:05am Urine Culture Indicated NO 05/31/2016 12:47am 05/31/2016 1:05am Sodium Level 141 MMOL/L 135-145 06/01/2016 8:15am 06/01/2016 8:42am Potassium Level 4.3 MMOL/L 3.6-5.0 06/01/2016 8:15am 06/01/2016 8:42am Chloride Level 112 MMOL/L H 98-107 06/01/2016 8:15am 06/01/2016 8:42am Carbon Dioxide Level 19 MMOL/L L 21-32 06/01/2016 8:15am 06/01/2016 8: 42am Anion Gap 10 MMOL/L 5-14 06/01/2016 8:1506/01/2016 8:42am Blood Urea Nitrogen 14 MG/DL 7-18 06/01/2016 8:1506/01/2016 8:42am Creatinine 1.55 MG/DL H 0.60-1.30 06/01/2016 8:1506/01/2016 8:42am BUN/Creatinine Ratio 9 06/01/2016 8:1506/01/2016 8:42am Estimat Glomerular Filtration Rate 44 06/01/2016 8:1506/01/2016 8:42am GFR INTERPRETIVE DATA UNITS FOR ESTIMATED GFR (eGFR): mL/min/1.73 M2 REFERENCE RANGE FOR ESTIMATED GFR (eGFR) eGFR NORMAL eGFR >60 MODERATELY DECREASED eGFR 30-59 SEVERLY DECREASED eGFR 15-29 KIDNEY FAILURE <15 (OR DIALYSIS) Glucose Level 210 MG/DL H 70-105 06/01/2016 8:1506/01/2016 8:42am Glucometer 171 MG/DL H 70-110 06/01/2016 11:17am 06/01/2016 11:26am Calcium Level 9.3 MG/DL 8.5-10.1 06/01/2016 8:1506/01/2016 8:42am Phosphorus Level 2.5 MG/DL 2.3-4.7 05/31/2016 2:1805/31/2016 2:52am Magnesium Level 1.7 MG/DL L 1.8-2.4 05/31/2016 2:1805/31/2016 2:52am Total Bilirubin 0.4 MG/DL 0.1-1.0 05/31/2016 2:1805/31/2016 2:52am Alkaline Phosphatase 53 U/L 40-136 05/31/2016 2:1805/31/2016 2:52am Aspartate Amino Transf (AST/SGOT) 15 U/L 5-34 05/31/2016 2:18am 2016 2:52am Alanine Aminotransferase (ALT/SGPT) 15 U/L 0-55 05/31/2016 2:18am 05/31 2:52am Total Creatine Kinase 125 U/L 30-200 05/30/2016 8:34pm 05/30/2016 9: 03pm Creatine Kinase MB 3.7 NG/ML <6.6 05/30/2016 8:34pm 05/30/2016 9:07pm Troponin I < 0.30 NG/ML <0.30 05/30/2016 8:34pm 05/30/2016 9:07pm Troponin I < 0.30 NG/ML <0.30 05/31/2016 2:1805/31/2016 3:09am Myoglobin 155.6 NG/ML H 10.0-92.0 05/31/2016 2:1805/31/2016 3:09am B-Type Natriuretic Peptide 26.2 PG/ML <100.0 05/30/2016 8:34pm 2016 9:14pm Total Protein 5.8 G/DL L 6.4-8.2 05/31/2016 2:1805/31/2016 2:52am Albumin 3.5 G/DL 3.2-4.5 05/31/2016 2:1805/31/2016 2:52am Triglycerides Level 126 MG/DL <150 05/31/2016 2:1805/31/2016 2:52am Cholesterol Level 103 MG/DL < 200 05/31/2016 2:1805/31/2016 2:52am HDL Cholesterol 26 MG/DL L 40-60 05/31/2016 2:1805/31/2016 2:52am LDL Cholesterol Direct 62 MG/DL 1-129 05/31/2016 2:1805/31/2016 2: 52am VLDL Cholesterol 25 MG/DL 5-40 05/31/2016 2:1805/31/2016 2:52am Amylase Level 65 U/L 25-125 05/31/2016 2:1805/31/2016 2:52am Lipase 77 U/L 8-78 05/31/2016 2:1805/31/2016 2:52am Lactic Acid Level 0.8 MMOL/L 0.5-2.0 05/30/2016 12:07am 05/31/2016 12: 29am Lactic acid levels can appear lower than actual values in patients receiving NAC (N-Acetyl Cysteine). Digoxin Level 0.41 NG/ML L 0.80-2.00 05/31/2016 12:34pm 05/31/2016 2: 35pm Arterial Blood pH 7.34 CL 7.37-7.43 05/30/2016 9:20pm 05/30/2016 9: 33pm RESULTS CALLED TO [id number] AT 2132. RESULTS READ BACK: YES. Arterial Blood Partial Pressure CO2 34 MMHG L 35-45 05/30/2016 9:20pm 9:33pm Arterial Blood Partial Pressure O2 79 MMHG 79-93 05/30/2016 9:20pm 9:33pm Arterial Blood HCO3 18 MMOL/L L 23-27 05/30/2016 9:20pm 05/30/2016 9: 33pm Arterial Blood Total CO2 19.1 MMOL/L L 21.0-31.0 05/30/2016 9:20pm 2016 9:33pm Arterial Blood Base Excess -6.9 MMOL/L L -2.5-2.5 05/30/2016 9:20pm 05/30 9:33pm Arterial Blood Oxygen Saturation 96 % 94-100 05/30/2016 9:20pm 2016 9:33pm Blood Gas Puncture Site LT RAD 05/30/2016 9:20pm 05/30/2016 9:33pm Sujit Test YES-POS 05/30/2016 9:20pm 05/30/2016 9:33pm Blood Gas Inspired Oxygen ROOM AIR 05/30/2016 9:20pm 05/30/2016 9: 33pm Blood Gas Ventilator Setting NO 05/30/2016 9:20pm 05/30/2016 9: 33pm Blood Gas Patient Temperature 97.8 05/30/2016 9:20pm 05/30/2016 9: 33pm Pending Laboratory Results Test Name Collection Date/Time Microbiology Results Procedure Source Result Collection Date/Time Result Date/Time MRSA Screen Nasal MRSA not isolated 05/30/2016 11:05pm 06/01/2016 1:18pm Procedures Procedure Status Date Provider(s) Tracing only of electrocardiogram Completed 05/30/16 ROMAIN KNIGHT DO Tracing only of electrocardiogram Completed 05/31/16 LLUVIA ROUSE DO Tracing only of electrocardiogram Completed 05/31/16 LLUVIA ROUSE DO Tracing only of electrocardiogram Completed 06/01/16 LLUVIA ROUSE DO Encounters Encounter Location Arrival/Admit Date Discharge/Depart Date Attending Provider Departed Emergency Room [facility] 06/20/16 2:43pm 06/20 4:45pm JENN WADE Departed Emergency Room [facility] 06/05/16 11:41am 1:24pm LEONARDO SALGADO APRN Discharged Inpatient [facility] 05/30/16 9:15pm 12:30pm LLUVIA ROUSE DO Recent Diagnosis
[2016-07-01] MEDS ORDERED: BACL10TA PO (23:44)
[2016-07-01] MEDS ORDERED: CILO100T PO (23:44)
[2016-07-02] MEDS ORDERED: NS IV 1000 ML 1,000 ML IV ONE
[2016-07-02 00:47] LABS: BASOPHILS % (AUTO) 1 % (0-10); EOSINOPHILS # (AUTO) 0.4 10^3/uL (0.0-0.3); EOSINOPHILS % (AUTO) 5 % (0-10); LYMPHOCYTES # (AUTO) 2.3 X 10^3 (1.0-4.0); LYMPHOCYTES % (AUTO) 29 % (12-44); MEAN CORPUSCULAR HEMOGLOBIN 29 PG (25-34); MEAN CORPUSCULAR HGB CONC 34 G/DL (32-36); MEAN CORPUSCULAR VOLUME 87 FL (80-99); MONOCYTES # (AUTO) 0.7 X 10^3 (0.0-1.0); MONOCYTES % (AUTO) 9 % (0-12); NEUTROPHILS # (AUTO) 4.5 X 10^3 (1.8-7.8); NEUTROPHILS % (AUTO) 57 % (42-75); PLATELET COUNT 226 10^3/uL (130-400); RED BLOOD COUNT 4.49 10^6/uL (4.35-5.85); RED CELL DISTRIBUTION WIDTH 13.3 % (10.0-14.5); WHITE BLOOD COUNT 7.9 10^3/uL (4.3-11.0)
[2016-07-02 01:02] LABS: ALANINE AMINOTRANSFERASE 19 U/L (0-55); ALBUMIN 3.9 G/DL (3.2-4.5); ANION GAP 11 MMOL/L (5-14); ASPARTATE AMINO TRANSFERASE 18 U/L (5-34); BILIRUBIN,TOTAL 0.3 MG/DL (0.1-1.0); BLOOD UREA NITROGEN 21 MG/DL (7-18); BUN/CREATININE RATIO 10; CALCIUM 9.6 MG/DL (8.5-10.1); CARBON DIOXIDE 21 MMOL/L (21-32); CHLORIDE 106 MMOL/L (98-107); CREATININE SERUM 2.05 MG/DL (0.60-1.30); GFR ESTIMATED 32; GLUCOSE 357 MG/DL (70-105); SODIUM 138 MMOL/L (135-145); TOTAL PROTEIN 6.7 G/DL (6.4-8.2)
[2016-07-02 01:08] LABS: TROPONIN I < 0.30 NG/ML (<0.30)
[2016-07-02 02:01] LABS: BILIRUBIN,URINE NEGATIVE (NEGATIVE); KETONES,URINE NEGATIVE (NEGATIVE); LEUKOCYTE ESTERASE ,URINE NEGATIVE (NEGATIVE); NITRITE,URINE NEGATIVE (NEGATIVE); PH,URINE 5 (5-9); PROTEIN,URINE 1+ (NEGATIVE); UROBILINOGEN,URINE NORMAL (NORMAL)
[2016-07-02 02:11] LABS: WBC,URINE 0-2 /HPF
[2016-07-02 02:12] LABS: HYALINE CASTS, URINE 0-2 /LPF; SQUAMOUS EPITHELIAL CELL,UR RARE /HPF
--- NOTE | 2016-07-02 02:30 | ED General ---
General Chief Complaint: Cardiac/General Problems Stated Complaint: HIGH BP DIZZY Nursing Triage Note: C/O LOW BLOOD PRESSURE AT HOME (94/60) WITH DIZZINESS Nursing Sepsis Screen: No Definite Risk Source of Information: Patient Exam Limitations: No Limitations History of Present Illness Time Seen by Provider: 00:00 Initial Comments This 76-year-old gentleman presents to the emergency room with complaints of dizziness described primarily as a lightheadedness. It seems to be worse upon rising. He denies any other significant symptoms such as cough, shortness of air, chest pain, nausea, vomiting, diarrhea, fever, etc. He is diabetic and hyperglycemic. He admits to poor diet management with high carb intake. He has history of atrial fibrillation but is dizziness despite being in sinus rhythm at present. He does have an orthostatic standing blood pressure. Allergies and Home Medications Allergies Coded Allergies: celecoxib (Unverified Allergy, Mild, TAKES ASPIRIN AT HOME, 12/21/14) diclofenac (Unverified Allergy, Mild, TAKES ASPIRIN AT HOME, 12/21/14) naproxen (Unverified Allergy, Mild, TAKES ASPIRIN AT HOME, 12/21/14) rosuvastatin (Unverified Allergy, Mild, 08/14/08) Penicillins (Verified Allergy, Unknown, 08/03/05) amoxicillin (Verified Allergy, Unknown, 08/03/05) fenofibrate (Unverified Allergy, Unknown, 06/05/16) morphine (Verified Allergy, Unknown, TAKES HYDROCODONE AT HOME, 07/17/14) simvastatin (Unverified Allergy, Unknown, 06/05/16) Uncoded Allergies: GEMIFIBOROZIL (Allergy, Unknown, 06/05/16) Home Medications Aspirin 81 Mg Tablet.dr 81 MG PO DAILY (Reported) Baclofen 10 Mg Tablet #270 1 TAB PO UD (Reported) Cilostazol 100 Mg Tablet #60 1 TAB PO UD (Reported) Clopidogrel Bisulfate 75 Mg Tablet 75 MG PO DAILY (Reported) Digoxin 125 Mcg Tablet 125 MCG PO DAILY (Reported) Dronedarone HCl 400 Mg Tablet #60 (Reported) Enalapril Maleate 10 Mg Tablet 10 MG PO BID (Reported) Gabapentin 300 Mg Capsule 600 MG PO HS (Reported) TAKES 2 (300 MG) CAPSULES Glipizide 10 Mg Tablet 10 MG PO DAILY (Reported) Insulin Detemir 100 Unit/1 Ml Insuln.pen 43 UNIT SQ HS (Reported) Loratadine 10 Mg Tablet 10 MG PO DAILY (Reported) Metoprolol Tartrate 25 Mg Tablet 12.5 MG PO DAILY (Reported) TAKES 1/2 OF A (25 MG) Montelukast Sodium 10 Mg Tablet 10 MG PO DAILY (Reported) Nitroglycerin 0.4 Mg Tab.subl 0.4 MG SL UD PRN PRN CHEST PAIN (Reported) [place]-3/Dha/Epa/Fish Oil 1,000 Mg Capsule 1,000 MG PO BID (Reported) Pentoxifylline 400 Mg Tablet.er 400 MG PO TID (Reported) Trazodone HCl 50 Mg Tablet 50 MG PO HS (Reported) Umeclidinium Brm/Vilanterol Tr 1 Each Blst.w.dev 1 PUFF IH DAILY (Reported) Constitutional: no symptoms reported EENTM: no symptoms reported Respiratory: no symptoms reported Cardiovascular: see HPI Gastrointestinal: no symptoms reported Genitourinary: no symptoms reported Musculoskeletal: no symptoms reported Skin: no symptoms reported Psychiatric/Neurological: See HPI Hematologic/Lymphatic: No Symptoms Reported Past Wnrxymw-Ewpdtm-Scfvju Hx Patient Social History Alcohol Use: Denies Use Recreational Drug Use: No Smoking Status: Former Smoker Type Used: Cigarettes Former Smoker/When Quit: May 31, 1999 2nd Hand Smoke Exposure: Yes Recent Foreign Travel: No Contact w/Someone Who Travel: No Recent Infectious Disease Expo: No Recent Hopitalizations: No Immunizations Up To Date Tetanus Booster (TDap): Less than 5yrs PED Vaccines UTD: No Date of Pneumonia Vaccine: Jun 14, 2015 Date of Influenza Vaccine: Feb 12, 2016 Seasonal Allergies Seasonal Allergies: Yes Surgeries HX Surgeries: Yes (r knee, back surgery, CABGX4, ANGIO SEAL R LEG, HERNIA REPIAR, ) Surgeries: Abdominal, Cardiac, CABG, Coronary Stent, Eye Surgery, Gallbladder, Open Heart Surgery, Orthopedic, Vascular Surgery Respiratory Hx Respiratory Disorders: Yes (CHRONIC DYSPNEA ON EXERTION) Respiratory Disorders: Sleep Apnea, COPD Cardiovascular Hx Cardiac Disorders: Yes Cardiac Disorders: Atrial Fibrillation, Coronary Artery Disease, Heart Attack, High Cholesterol, Hypertension, Peripheral Vascular Neurological Hx Neurological Disorders: Yes (POSSIBLE STROKE/ TIA) Neurological Disorders: Stroke, TIA Reproductive System Hx Reproductive Disorders: No Sexually Transmitted Disease: No HIV/AIDS: No Genitourinary Hx Genitourinary Disorders: Yes (RENAL INSUFFICIENCY) Genitourinary Disorders: Benign Prostatic Hyperpl, Prostate Problems, Renal Failure Gastrointestinal Hx Gastrointestinal Disorders: Yes (GASTROPARESIS; GASTRITIS; DUODENITIS; COLON POLYPECTOMY) Gastrointestinal Disorders: Gastroesophageal Reflux, Pancreatitis, Polyps Musculoskeletal Hx Musculoskeletal Disorders: Yes (OLECRANON BURSITIS, CHRONIC NECK PAIN, DISH SYNDROME) Musculoskeletal Disorders: Arthritis, Chronic Back Pain Endocrine Hx Endocrine Disorders: Yes Endocrine Disorders: Diabetes, Insulin dep HEENT HX ENT Disorders: Yes (SINUS PROBLEMS) HEENT Disorders: Cataract Loss of Vision: Denies Hearing Impairment: Denies Cancer Hx Cancer: No Psychosocial Hx Psychiatric Problems: Yes Behavioral Health Disorders: Anxiety Integumentary HX Skin/Integumentary Disorder: No Blood Transfusions Hx Blood Disorders: No Adverse Reaction to a Blood Tr: No Family Medical History Significant Family History: No Pertinent Family Hx Family Medial History: Cancer G8 BROTHER Cataract 19 FATHER 19 MOTHER G8 BROTHER G8 BROTHER G8 SISTER Congestive heart failure 19 FATHER 19 MOTHER Family history: Arthritis 19 FATHER 19 MOTHER G8 BROTHER G8 BROTHER G8 SISTER G8 SISTER DAUGHTER SON Family history: Breast disease DAUGHTER Family history: Cardiovascular disease 19 FATHER Family history: Diabetes mellitus 19 FATHER G8 BROTHER G8 SISTER Family history: Hypertension 19 FATHER 19 MOTHER G8 BROTHER G8 BROTHER G8 SISTER G8 SISTER DAUGHTER SON Family history: Thyroid disorder DAUGHTER Heart disease 19 FATHER 19 MOTHER G8 BROTHER Hypercholesterolemia 19 FATHER 19 MOTHER G8 BROTHER G8 BROTHER G8 SISTER Myocardial infarction 19 FATHER 19 MOTHER G8 BROTHER No Family History of: Abdominal aortic aneurysm Clallam's disease Alcoholism Aphasia Cancer of colon Chest pain Congenital heart disease Cystic fibrosis Dementia Dysphagia Family history: Allergy Family history: Alzheimer's disease Family history: Asthma Family history: Coronary thrombosis Family history: Gastrointestinal disease Family history: Glaucoma Family history: Osteoporosis Headache Hearing loss Hereditary disease History of - anemia History of - disorder History of - respiratory disease History of drug abuse Human immunodeficiency virus (HIV) seropositivity Infertile Kidney disease Malignant neoplasm of lung Parkinson's disease Prostate cancer Psychotic disorder Seizure disorder Stroke Tuberculosis Visual impairment Physical Exam Vital Signs Vital Sign - Last 12Hours 07/01/16 23:45 Temp 97.9 Pulse 88 Resp 15 B/P 130/68 Pulse Ox 95 O2 Delivery Room Air Capillary Refill : Less Than 3 Seconds General Appearance: No Apparent Distress WD/WN HEENT: PERRL/EOMI Normal ENT Inspection Neck: Normal Inspection Respiratory: Lungs Clear Normal Breath Sounds No Accessory Muscle Use No Respiratory Distress Cardiovascular: Regular Rate, Rhythm No Edema No Murmur Gastrointestinal: Non Tender Soft Extremity: Normal Inspection No Pedal Edema Neurologic/Psychiatric: Alert Oriented x3 No Motor/Sensory Deficits Normal Mood/Affect chart clerk II-XII Norm as Tested Skin: Normal Color Warm/Dry Progress/Results/Core Measures Results/Orders Lab Results My Orders Medications Given in ED Vital Signs/I&O Blood Pressure Mean: 88 Point of Care Testing Finger Stick Blood Glucose: 297 Progress Note : Progress Note Patient was found to have an orthostatic standing blood pressure. He was hydrated with 1 L of IV fluids. Blood sugar was checked again and improved. Patient was educated on the importance of tight blood sugar control to avoid diuresis. His digoxin level was also low and he was advised to discuss this with his prescribing provider. ECG Initial ECG Impression Date: Jul 01, 2016 Initial ECG Impression Time: 23:46 Initial ECG Rate: 87 Initial ECG Rhythm: Normal Sinus Comment Normal sinus rhythm with borderline QT prolongation. No ST elevation or depression. Diagnostic Imaging Diagonstic Imaging: Xray Plain Films/CT/US/NM/MRI: chest Comments Chest x-ray viewed by me. Report not yet available. No acute abnormalities appreciated. Departure Impression Impression: Primary Impression: Hypovolemia Additional Impressions: Orthostatic hypotension Hyperglycemia Lightheadedness Disposition: 01 HOME, SELF-CARE Condition: Improved Departure-Patient Inst. Decision time for Depature: 02:26 Referrals: LLUVIA ROUSE DO (PCP/Family) Primary Care Physician Patient Instructions: Orthostatic Hypotension Add. Discharge Instructions: Drink plenty of water. Try to drink at least 16 ounces of water before sleeping tonight/this morning. Use your insulin as prescribed. Monitor your blood sugars closely, preferably fasting in the morning and 2 hours after each meal. Record your blood sugars and bring them to your doctor for review. Eat a low sugar, low carbohydrate diet. Your symptoms today are likely due to elevated blood sugars causing you to become dry. Return to care if symptoms worsen. Please note your digoxin level is also low and your digoxin dosing may need to be adjusted. Discuss with the physician prescribing digoxin. Follow- up with your primary care provider as soon as possible. All discharge instructions reviewed with patient and/or family. Voiced understanding. Copy Copies To 1: LLUVIA ROUSE JOSHUA T MD Jul 02, 2016 02:29 Platelet Count 226 130-400 10^3/uL Potassium Level 4.0 3.6-5.0 MMOL/L Red Blood Count 4.49 4.35-5.85 10^6/uL Red Cell Distribution Width 13.3 10.0-14.5 % Sodium Level 138 135-145 MMOL/L Total Bilirubin 0.3 0.1-1.0 MG/DL Total Protein 6.7 6.4-8.2 G/DL Troponin I < 0.30 <0.30 NG/ML White Blood Count 7.9 4.3-11.0 10^3/uL Glucometer 297 H 70-110 MG/DL Urine Amorphous Sediment FEW DEYVI URATES H /LPF Urine Bacteria TRACE /HPF Urine Bilirubin NEGATIVE NEGATIVE Urine Casts PRESENT /LPF Urine Clarity CLEAR Urine Color YELLOW Urine Crystals PRESENT H /LPF Urine Culture Indicated NO Urine Glucose (UA) 4+ H NEGATIVE Urine Granular Casts 2-5 H /LPF Urine Hyaline Casts 0-2 H /LPF Urine Ketones NEGATIVE NEGATIVE Urine Leukocyte Esterase NEGATIVE NEGATIVE Urine Mucus SMALL H /LPF Urine Nitrite NEGATIVE NEGATIVE Urine Protein 1+ H NEGATIVE Urine RBC RARE /HPF Urine RBC (Auto) NEGATIVE NEGATIVE Urine Specific [place] 1.015 L 1.016-1.022 Urine Squamous Epithelial Cells RARE /HPF Urine Urobilinogen NORMAL NORMAL MG/DL Urine WBC 0-2 /HPF Urine pH 5 5-9 My Orders Orders-RODOLFO CUELLO MD Ns Iv 1000 Ml (Sodium Chloride 0.9%) (07/02/16 00:00) Orthostatic Vital Signs (07/02/16 00:00) Saline Lock/Iv-Start (07/02/16 00:00) Cbc With Automated Diff (07/02/16 00:31) Comprehensive Metabolic Panel (07/02/16 00:31) Troponin I (07/02/16 00:31) Ua Culture If Indicated (07/02/16 00:31) Chest 1 View, Ap/Pa Only (07/02/16 00:31) Ekg Tracing (07/02/16 00:31) Accucheck Stat ONCE (07/02/16 01:12) Digoxin (07/02/16 01:12) Medications Given in ED Current Medications Medications Dose Ordered Sig/Alka Route Start Time Stop Time Status Last Admin Dose Admin Sodium Chloride 1,000 ml @ 100 mls/hr Q10H ONCE IV 07/02/16 00:00 07/02/16 02:32 DC 07/02/16 00:09 100 MLS/HR Vital Signs/I&O Vital Sign - Last 12Hours 07/01/16 07/01/16 07/02/16 07/02/16 23:45 23:59 01:21 02:31 Temp 97.9 Pulse 88 84 94 71 93 101 Resp 15 15 B/P 130/68 Pulse Ox 95 95 O2 Delivery Room Air Blood Pressure Mean: 88 Point of Care Testing Finger Stick Blood Glucose: 297 ECG Initial ECG Impression Date: Jul 01, 2016 Initial ECG Impression Time: 23:46 Initial ECG Rate: 87 Initial ECG Rhythm: Normal Sinus Comment Normal sinus rhythm with borderline QT prolongation. No ST elevation or depression. Departure Impression Impression: Primary Impression: Hypovolemia Additional Impressions: Orthostatic hypotension Hyperglycemia Lightheadedness Disposition: 01 HOME, SELF-CARE Condition: Improved Departure-Patient Inst. Decision time for Depature: 02:26 Referrals: LLUVIA ROUSE DO (PCP/Family) Primary Care Physician Patient Instructions: Orthostatic Hypotension Add. Discharge Instructions: Drink plenty of water. Try to drink at least 16 ounces of water before sleeping tonight/this morning. Use your insulin as prescribed. Monitor your blood sugars closely, preferably fasting in the morning and 2 hours after each meal. Record your blood sugars and bring them to your doctor for review. Eat a low sugar, low carbohydrate diet. Your symptoms today are likely due to elevated blood sugars causing you to become dry. Return to care if symptoms worsen. Please note your digoxin level is also low and your digoxin dosing may need to be adjusted. Discuss with the physician prescribing digoxin. Follow- up with your primary care provider as soon as possible. All discharge instructions reviewed with patient and/or family. Voiced understanding. Copy Copies To 1: LLUVIA ROUSE JOSHUA T MD Jul 02, 2016 02:29
[2016-07-02 02:31] VITALS: BP 126/62
--- NOTE | 2016-07-02 07:21 | Diagnostic Imaging Report ---
INDICATION: Weakness. Comparison with 05/31/2016. FINDINGS: Lungs are well-aerated. There are no infiltrates present. The heart is not enlarged. Median sternotomy changes are present. lunchroom monitor noted overlying the left chest. No pneumothorax or pleural effusion. IMPRESSION: No acute changes when compared with previous exam. Dictated by: Dictated on workstation # [id number]
[2016-09-22] MEDS ORDERED: DRON400T2 PO (10:13)
[2016-09-22] MEDS ORDERED: FLUT16SP22 NS (10:13)
[2016-09-22] MEDS ORDERED: METO-333 PO (10:13)
[2016-09-22] MEDS ORDERED: ENAL5TAB PO (10:13)
== END 2016-07-02 02:32 | disposition home or self-care (01) ==
LOC: EDUNIT# 23:32 → ER 23:36
DX: E86.1 Hypovolemia (principal); I95.1 Orthostatic hypotension; E11.65 Type 2 diabetes mellitus with hyperglycemia; R42 Dizziness and giddiness; I10 Essential (primary) hypertension; I48.2 Chronic atrial fibrillation; I25.10 Atherosclerotic heart disease of native coronary artery without angina pectoris; Z79.82 Long term (current) use of aspirin; Z79.84 Long term (current) use of oral hypoglycemic drugs; Z79.4 Long term (current) use of insulin; Z79.899 Other long term (current) drug therapy; Z79.02 Long term (current) use of antithrombotics/antiplatelets; Z87.891 Personal history of nicotine dependence; Z95.1 Presence of aortocoronary bypass graft; Z95.5 Presence of coronary angioplasty implant and graft
CPT/HCPCS: 36415; 71010; 80053; 80162; 81000; 82962; 84484; 85025; 93005; 96360

== ENCOUNTER 2016-07-23 18:28 | Emergency (ER) | payer MEDICARE, MEDICAID ==
[~2016-07-23] VITALS: Ht 182.9 cm; Wt 88.0 kg
--- OUTSIDE RECORDS SUMMARY | 2016-07-23 18:36 | XMS REPORT | Continuity of Care Document ---
Author Author [facility] Organization [facility] Address Unknown Phone Unavailable Care Team Providers Care Child Care Attendant School Name Role Phone LLUVIA ROUSE DO PCP Insurance Providers Payer Name Policy Number Subscriber Name Relationship s Medicare [id number] Castro Tolentino Self / Same As Patient [facility] [employer] [id number] Castro Tolentino Self / Same As Patient Advance Directives Directive Response Recorded Date/Time Advance Directives No 06/20/16 2:55pm Health Care Power of Senior Java Programmer Analyst No 06/20/16 2:55pm Organ Donor No 06/20/16 [...] 81 Mg 81 Mg Oral Daily 02/26/14 [place]-3/Dha/Epa/Fish Oil 1,000 Mg 1,000 Mg Oral [...] Every 6 Hours as needed 02/18/10 Discontinued [place]-3/Dha/Epa/Fish Oil 1,000 Mg Capsule, 2000 Mg [...] Daily 03/15/12 Discontinued Triamcinolone Acetonide 16.5 Gm Volin, 16.5 Gm Nasal Twice A Day 11/02/12 [...] Each Nostril Twice A Day 12/18/12 Discontinued [place]-3 Fatty Acids/Fish Oil 1 Each Capsule, [...] as needed for Chest Pain 03/20/14 Discontinued [[place] 3 Polyunsat Fatty Acids] 1,000 Mg [...] Continue usual home medications. Tylenol Extra Strength [id number] as directed for pain. Ice pack for [...] Type Severity Reaction Status Last Updated Penicillins ([id number]) Allergy Unknown Active 08/03/05 Morphine Allergy Unknown TAKES HYDROCODONE AT HOME Active 07/17/14 naproxen ([id number]) Allergy Mild TAKES ASPIRIN AT HOME Active 12/21/14 simvastatin ([id number]) Allergy Unknown Active 06/05/16 amoxicillin ([id number]) Allergy Unknown Active 08/03/05 fenofibrate ([id number]) Allergy Unknown Active 06/05/16 diclofenac ([id number]) Allergy Mild TAKES ASPIRIN AT HOME Active 12/21/14 Celecoxib Allergy Mild TAKES ASPIRIN AT HOME Active 12/21/14 Rosuvastatin Allergy Mild Active 08/14/08 GEMIFIBOROZIL Allergy Unknown Active 06/05/16 Immunizations No immunization records. Vital Signs Acute Vital Signs Vital Response Date/Time Temperature (Fahrenheit) 98.7 degrees F (97.6 - 99.5) 06/20/2016 2:45pm Temperature (Calculated Celsius) 37.37123 degrees C (36.4 - 37.5) 06/20/2016 2:45pm [...] 0.00 inches 05/30/2016 11:20pm Height (Calculated Centimeters) 182.291344 cm 06/20/2016 2:45pm Weight (Pounds) 194 pounds 06/20/2016 2:45pm Weight (Ounces) 1.0 oz 05/31/2016 6:00am Weight (Calculated Grams) 20921.417 gm 05/31/2016 6:00am Weight (Calculated Kilograms) 87.638409 kilograms 06/20/2016 2:45pm Calculated BMI 26.7 05/30/2016 [...] SELECTED GROUPS OF HIGH RISK PATIENTS. [employer] [place] [employer] CONSENSUS CONFERENCE ON ANTITHROMBOTIC THERAPY (2000). Activated Partial Thromboplast Time 26 SEC 24-35 05/30/2016 8:34pm 8:54pm Urine Color YELLOW 05/31/2016 12:47am 05/31/2016 1:05am Urine Clarity CLEAR 05/31/2016 12:47am 05/31/2016 1:05am Urine pH 5 5-9 05/31/2016 12:47am 05/31/2016 1:05am Urine Specific [place] 1.015 * 1.016-1.022 05/31/2016 12:47am 2016 1:05am [...] 9:20pm 05/30/2016 9: 33pm RESULTS CALLED TO [id number] AT 2132. RESULTS READ BACK: YES. Arterial [...] Date Attending Provider Departed Emergency Room [facility] 06/20/16 2:43pm 06/20 4:45pm JENN WADE Departed Emergency Room [facility] 06/05/16 11:41am 1:24pm LEONARDO SALGADO APRN Discharged Inpatient [facility] 05/30/16 9:15pm 12:30pm LLUVIA ROUSE DO Recent Diagnosis
[2016-07-23] MEDS ORDERED: NS IV 1000 ML 1,000 ML IV SCH (18:45)
[2016-07-23] MEDS ORDERED: SITA100T12 PO (18:55)
[2016-07-23] MEDS ORDERED: APIX5TAB PO (18:55)
[2016-07-23] MEDS ORDERED: FENO134C PO (18:55)
[2016-07-23] MEDS ORDERED: PANT40TA3 PO (18:55)
[2016-07-23] MEDS ORDERED: TAMS0.4C2 PO (18:55)
[2016-07-23 19:05] LABS: BILIRUBIN,URINE NEGATIVE (NEGATIVE); KETONES,URINE NEGATIVE (NEGATIVE); LEUKOCYTE ESTERASE ,URINE NEGATIVE (NEGATIVE); NITRITE,URINE NEGATIVE (NEGATIVE); PH,URINE 6 (5-9); PROTEIN,URINE 2+ (NEGATIVE); UROBILINOGEN,URINE NORMAL (NORMAL)
[2016-07-23 19:17] LABS: BASOPHILS % (AUTO) 1 % (0-10); EOSINOPHILS # (AUTO) 0.2 10^3/uL (0.0-0.3); EOSINOPHILS % (AUTO) 2 % (0-10); LYMPHOCYTES # (AUTO) 1.8 X 10^3 (1.0-4.0); LYMPHOCYTES % (AUTO) 22 % (12-44); MEAN CORPUSCULAR HEMOGLOBIN 29 PG (25-34); MEAN CORPUSCULAR HGB CONC 34 G/DL (32-36); MEAN CORPUSCULAR VOLUME 86 FL (80-99); MEAN PLATELET VOLUME 10.6 FL (7.4-10.4); MONOCYTES # (AUTO) 0.5 X 10^3 (0.0-1.0); MONOCYTES % (AUTO) 6 % (0-12); NEUTROPHILS # (AUTO) 5.6 X 10^3 (1.8-7.8); NEUTROPHILS % (AUTO) 70 % (42-75); PLATELET COUNT 249 10^3/uL (130-400); RED BLOOD COUNT 4.93 10^6/uL (4.35-5.85); RED CELL DISTRIBUTION WIDTH 13.8 % (10.0-14.5); WHITE BLOOD COUNT 8.1 10^3/uL (4.3-11.0)
[2016-07-23 19:19] LABS: WBC,URINE 0-2 /HPF
--- NOTE | 2016-07-23 19:29 | ED General ---
General Chief Complaint: Cardiac/General Problems Stated Complaint: LOW BP Nursing Triage Note: C/O LABILE BP FOR MONTHS, INTERMITTANT DIZZINESS LAST "FEW"DAYS. Nursing Sepsis Screen: No Definite Risk Source of Information: Patient Exam Limitations: No Limitations History of Present Illness Time Seen by Provider: 19:25 Initial Comments Patient complains of intermittent lightheadedness and dizziness for the past 2 weeks to months. Symptoms are worse with upright position. He became dizzy after eating supper tonight and came here. He was in the emergency department last month for similar symptoms and was found to be orthostatic. Patient claims compliance with medication. Allergies and Home Medications Allergies Coded Allergies: celecoxib (Unverified Allergy, Mild, TAKES ASPIRIN AT HOME, 12/21/14) diclofenac (Unverified Allergy, Mild, TAKES ASPIRIN AT HOME, 12/21/14) naproxen (Unverified Allergy, Mild, TAKES ASPIRIN AT HOME, 12/21/14) rosuvastatin (Unverified Allergy, Mild, 08/14/08) Penicillins (Verified Allergy, Unknown, 08/03/05) amoxicillin (Verified Allergy, Unknown, 08/03/05) fenofibrate (Unverified Allergy, Unknown, 06/05/16) morphine (Verified Allergy, Unknown, TAKES HYDROCODONE AT HOME, 07/17/14) simvastatin (Unverified Allergy, Unknown, 06/05/16) Uncoded Allergies: GEMIFIBOROZIL (Allergy, Unknown, 06/05/16) Home Medications Apixaban 5 Mg Tablet #60 1 TAB PO BID (Reported) Aspirin 81 Mg Tablet.dr 81 MG PO DAILY (Reported) Baclofen 10 Mg Tablet #270 1 TAB PO UD (Reported) Cilostazol 100 Mg Tablet #60 1 TAB PO UD (Reported) Digoxin 125 Mcg Tablet 125 MCG PO DAILY (Reported) Enalapril Maleate 10 Mg Tablet 10 MG PO BID (Reported) Fenofibrate,Micronized 134 Mg Capsule 134 MG PO UD (Reported) Gabapentin 300 Mg Capsule 600 MG PO HS (Reported) TAKES 2 (300 MG) CAPSULES Glipizide 10 Mg Tablet 10 MG PO DAILY (Reported) Insulin Detemir 100 Unit/1 Ml Insuln.pen 43 UNIT SQ HS (Reported) Loratadine 10 Mg Tablet 10 MG PO DAILY (Reported) Metoprolol Tartrate 25 Mg Tablet 12.5 MG PO DAILY (Reported) TAKES 1/2 OF A (25 MG) Montelukast Sodium 10 Mg Tablet 10 MG PO DAILY (Reported) Nitroglycerin 0.4 Mg Tab.subl 0.4 MG SL UD PRN PRN CHEST PAIN (Reported) [place]-3/Dha/Epa/Fish Oil 1,000 Mg Capsule 1,000 MG PO BID (Reported) Pantoprazole Sodium 40 Mg Tablet.dr #90 1 TAB PC UD (Reported) Pentoxifylline 400 Mg Tablet.er 400 MG PO TID (Reported) Sitagliptin Phosphate 100 Mg Tablet #90 1 TAB PO UD (Reported) Tamsulosin HCl 0.4 Mg Cap.er.24h #90 1 TAB PO UD (Reported) Trazodone HCl 50 Mg Tablet 50 MG PO HS (Reported) Umeclidinium Brm/Vilanterol Tr 1 Each Blst.w.dev 1 PUFF IH DAILY (Reported) Constitutional: dizziness malaise weakness EENTM: no symptoms reported Respiratory: no symptoms reported Cardiovascular: no symptoms reportedNo chest pain Gastrointestinal: no symptoms reported Musculoskeletal: no symptoms reported see HPI Skin: no symptoms reported All Other Systems Reviewed Negative Unless Noted: Yes Past Djdibbe-Jmywgm-Gaweha Hx Patient Social History Alcohol Use: Denies Use Recreational Drug Use: No Smoking Status: Former Smoker Type Used: Cigarettes Former Smoker/When Quit: May 31, 1999 2nd Hand Smoke Exposure: Yes Recent Foreign Travel: No Contact w/Someone Who Travel: No Recent Infectious Disease Expo: No Recent Hopitalizations: No Immunizations Up To Date Tetanus Booster (TDap): Less than 5yrs PED Vaccines UTD: No Date of Pneumonia Vaccine: Jun 14, 2015 Date of Influenza Vaccine: Feb 12, 2016 Seasonal Allergies Seasonal Allergies: Yes Surgeries HX Surgeries: Yes (r knee, back surgery, CABGX4, ANGIO SEAL R LEG, HERNIA REPIAR, ) Surgeries: Abdominal, Cardiac, CABG, Coronary Stent, Eye Surgery, Gallbladder, Open Heart Surgery, Orthopedic, Vascular Surgery Respiratory Hx Respiratory Disorders: Yes (CHRONIC DYSPNEA ON EXERTION) Respiratory Disorders: Sleep Apnea, COPD Cardiovascular Hx Cardiac Disorders: Yes (LABILE BP) Cardiac Disorders: Atrial Fibrillation, Coronary Artery Disease, Heart Attack, High Cholesterol, Hypertension, Peripheral Vascular Neurological Hx Neurological Disorders: Yes (POSSIBLE STROKE/ TIA) Neurological Disorders: Stroke, TIA Reproductive System Hx Reproductive Disorders: No Sexually Transmitted Disease: No HIV/AIDS: No Genitourinary Hx Genitourinary Disorders: Yes (RENAL INSUFFICIENCY) Genitourinary Disorders: Benign Prostatic Hyperpl, Prostate Problems, Renal Failure Gastrointestinal Hx Gastrointestinal Disorders: Yes (GASTROPARESIS; GASTRITIS; DUODENITIS; COLON POLYPECTOMY) Gastrointestinal Disorders: Gastroesophageal Reflux, Pancreatitis, Polyps Musculoskeletal Hx Musculoskeletal Disorders: Yes (OLECRANON BURSITIS, CHRONIC NECK PAIN, DISH SYNDROME) Musculoskeletal Disorders: Arthritis, Chronic Back Pain Endocrine Hx Endocrine Disorders: Yes Endocrine Disorders: Diabetes, Insulin dep HEENT HX ENT Disorders: Yes (SINUS PROBLEMS) HEENT Disorders: Cataract Loss of Vision: Denies Hearing Impairment: Denies Cancer Hx Cancer: No Psychosocial Hx Psychiatric Problems: Yes Behavioral Health Disorders: Anxiety Integumentary HX Skin/Integumentary Disorder: No Blood Transfusions Hx Blood Disorders: No Adverse Reaction to a Blood Tr: No Reviewed Nursing Assessment Reviewed/Agree w Nursing PMH: Yes Family Medical History Significant Family History: No Pertinent Family Hx Family Medial History: Cancer G8 BROTHER Cataract 19 FATHER 19 MOTHER G8 BROTHER G8 BROTHER G8 SISTER Congestive heart failure 19 FATHER 19 MOTHER Family history: Arthritis 19 FATHER 19 MOTHER G8 BROTHER G8 BROTHER G8 SISTER G8 SISTER DAUGHTER SON Family history: Breast disease DAUGHTER Family history: Cardiovascular disease 19 FATHER Family history: Diabetes mellitus 19 FATHER G8 BROTHER G8 SISTER Family history: Hypertension 19 FATHER 19 MOTHER G8 BROTHER G8 BROTHER G8 SISTER G8 SISTER DAUGHTER SON Family history: Thyroid disorder DAUGHTER Heart disease 19 FATHER 19 MOTHER G8 BROTHER Hypercholesterolemia 19 FATHER 19 MOTHER G8 BROTHER G8 BROTHER G8 SISTER Myocardial infarction 19 FATHER 19 MOTHER G8 BROTHER No Family History of: Abdominal aortic aneurysm Robel's disease Alcoholism Aphasia Cancer of colon Chest pain Congenital heart disease Cystic fibrosis Dementia Dysphagia Family history: Allergy Family history: Alzheimer's disease Family history: Asthma Family history: Coronary thrombosis Family history: Gastrointestinal disease Family history: Glaucoma Family history: Osteoporosis Headache Hearing loss Hereditary disease History of - anemia History of - disorder History of - respiratory disease History of drug abuse Human immunodeficiency virus (HIV) seropositivity Infertile Kidney disease Malignant neoplasm of lung Parkinson's disease Prostate cancer Psychotic disorder Seizure disorder Stroke Tuberculosis Visual impairment Physical Exam Vital Signs Vital Sign - Last 12Hours 07/23/16 18:56 Temp 98.3 Pulse 93 Resp 18 B/P 104/65 Pulse Ox 95 O2 Delivery Room Air Capillary Refill : Less Than 3 Seconds General Appearance: No Apparent Distress WD/WN HEENT: PERRL/EOMI Pharynx Normal Neck: Supple Respiratory: Lungs Clear Normal Breath Sounds Cardiovascular: Regular Rate, Rhythm No Edema Gastrointestinal: Soft Extremity: Normal Inspection Normal Range of Motion No Pedal Edema Neurologic/Psychiatric: Alert No Motor/Sensory Deficits Skin: Normal Color Warm/Dry Progress/Results/Core Measures Results/Orders Lab Results Laboratory Tests Test 07/23/16 19:00 Range/Units Alanine Aminotransferase (ALT/SGPT) 27 0-55 U/L Albumin 4.3 3.2-4.5 G/DL Alkaline Phosphatase 64 40-136 U/L Anion Gap 13 5-14 MMOL/L Aspartate Amino Transf (AST/SGOT) 26 5-34 U/L BUN/Creatinine Ratio 10 Basophils # (Auto) 0.0 0.0-0.1 10^3/uL Basophils (%) (Auto) 1 0-10 % Blood Urea Nitrogen 22 H 7-18 MG/DL Calcium Level 9.8 8.5-10.1 MG/DL Carbon Dioxide Level 20 L 21-32 MMOL/L Chloride Level 103 98-107 MMOL/L Creatinine 2.29 H 0.60-1.30 MG/DL Eosinophils # (Auto) 0.2 0.0-0.3 10^3/uL Eosinophils (%) (Auto) 2 0-10 % Estimat Glomerular Filtration Rate 28 Glucose Level 379 H 70-105 MG/DL Hematocrit 42 40-54 % Hemoglobin 14.4 13.3-17.7 G/DL Lymphocytes # (Auto) 1.8 1.0-4.0 X 10^3 Lymphocytes (%) (Auto) 22 12-44 % Mean Corpuscular Hemoglobin 29 25-34 PG Mean Corpuscular Hemoglobin Concent 34 32-36 G/DL Mean Corpuscular Volume 86 80-99 FL Mean Platelet Volume 10.6 H 7.4-10.4 FL Monocytes # (Auto) 0.5 0.0-1.0 X 10^3 Monocytes (%) (Auto) 6 0-12 % Neutrophils # (Auto) 5.6 1.8-7.8 X 10^3 Neutrophils (%) (Auto) 70 42-75 % Platelet Count 249 130-400 10^3/uL Potassium Level 4.9 3.6-5.0 MMOL/L Red Blood Count 4.93 4.35-5.85 10^6/uL Red Cell Distribution Width 13.8 10.0-14.5 % Sodium Level 136 135-145 MMOL/L Total Bilirubin 0.5 0.1-1.0 MG/DL Total Protein 7.4 6.4-8.2 G/DL Urine Bacteria NEGATIVE /HPF Urine Bilirubin NEGATIVE NEGATIVE Urine Casts NONE /LPF Urine Clarity CLEAR Urine Color YELLOW Urine Crystals NONE /LPF Urine Culture Indicated NO Urine Glucose (UA) 4+ H NEGATIVE Urine Ketones NEGATIVE NEGATIVE Urine Leukocyte Esterase NEGATIVE NEGATIVE Urine Mucus NEGATIVE /LPF Urine Nitrite NEGATIVE NEGATIVE Urine Protein 2+ H NEGATIVE Urine RBC NONE /HPF Urine RBC (Auto) NEGATIVE NEGATIVE Urine Specific [place] 1.020 1.016-1.022 Urine Squamous Epithelial Cells 2-5 /HPF Urine Urobilinogen NORMAL NORMAL MG/DL Urine WBC 0-2 /HPF Urine pH 6 5-9 White Blood Count 8.1 4.3-11.0 10^3/uL My Orders Orders-TRELL STARKEY MD Cbc With Automated Diff (07/23/16 18:42) Comprehensive Metabolic Panel (07/23/16 18:42) Ua Culture If Indicated (07/23/16 18:42) Ns Iv 1000 Ml (Sodium Chloride 0.9%) (07/23/16 18:45) Saline Lock/Iv-Start (07/23/16 19:00) Orthostatic Vital Signs (07/23/16 19:03) Vital Signs/I&O Vital Sign - Last 12Hours 07/23/16 07/23/16 18:56 19:24 Temp 98.3 Pulse 93 74 81 86 Resp 18 B/P 104/65 Pulse Ox 95 O2 Delivery Room Air Blood Pressure Mean: 78 Progress Note : Time: 20:00 Progress Note Patient feels better after IV fluids. Tore findings specifically elevated creatinine and glucose discussed the patient. He states he is compliant with medications. I encouraged him to follow-up with his primary care physician for medication adjustment and that her control of diabetes. Departure Impression Impression: Primary Impression: Lightheadedness Additional Impressions: Orthostatic hypotension Hypovolemia Disposition: 01 HOME, SELF-CARE Condition: Stable Departure-Patient Inst. Decision time for Depature: 19:28 Referrals: LLUVIA ROUSE DO (PCP/Family) Primary Care Physician Patient Instructions: Orthostatic Hypotension TRELL STARKEY MD Jul 23, 2016 19:28
[2016-07-23 19:39] LABS: ALBUMIN 4.3 G/DL (3.2-4.5); BILIRUBIN,TOTAL 0.5 MG/DL (0.1-1.0); CALCIUM 9.8 MG/DL (8.5-10.1); CREATININE SERUM 2.29 MG/DL (0.60-1.30); POTASSIUM 4.9 MMOL/L (3.6-5.0); TOTAL PROTEIN 7.4 G/DL (6.4-8.2)
[2016-07-23 20:08] VITALS: BP 114/68
[2016-09-22] MEDS ORDERED: DRON400T2 PO (10:13)
[2016-09-22] MEDS ORDERED: FLUT16SP22 NS (10:13)
[2016-09-22] MEDS ORDERED: METO-333 PO (10:13)
[2016-09-22] MEDS ORDERED: ENAL5TAB PO (10:13)
== END 2016-07-23 20:07 | disposition home or self-care (01) ==
LOC: EDUNIT# 18:28 → ER 18:30
DX: I95.1 Orthostatic hypotension (principal); E86.1 Hypovolemia; I10 Essential (primary) hypertension; I25.10 Atherosclerotic heart disease of native coronary artery without angina pectoris; I48.2 Chronic atrial fibrillation; E11.9 Type 2 diabetes mellitus without complications; Z79.4 Long term (current) use of insulin; Z79.84 Long term (current) use of oral hypoglycemic drugs; Z79.899 Other long term (current) drug therapy; Z79.82 Long term (current) use of aspirin; Z95.1 Presence of aortocoronary bypass graft; Z95.5 Presence of coronary angioplasty implant and graft
CPT/HCPCS: 36415; 80053; 81000; 85025; 96360

== ENCOUNTER 2016-08-09 04:32 | Emergency (ER) | payer MEDICARE, MEDICAID ==
[~2016-08-09] VITALS: Ht 182.9 cm; Wt 88.0 kg
[~2016-08-09 04:32] MED LIST changes: +APIX5TAB PO
--- NOTE | 2016-08-09 04:49 | ED Fall/Injury ---
General Stated Complaint: FELL OUT OF CHAIR,NECK PAIN Source: patient, old records, spouse Exam Limitations: other (PT AND BOTH VERY DIFFICULT AND LIMITED HISTORIANS --NORMAL FOR THEM, THEY ARE WELL-KNOWN TO ER STAFF) History of Present Illness Time seen by provider: 04:37 Initial Comments PT ARRIVES VIA POV FROM HOME STATES THAT AROUND 1999 THIS EVENING HE WAS STARTING TO SIT DOWN IN A CHAIR ( HAD ROLLERS ON CHAIR) AND IT WENT OUT FROM UNDER HIM AND HE FELL--HAS NO IDEA HOW HE LANDED HAS NO IDEA IF HE HIT HIS HEAD OR NOT-- THINKS HE BUMPED THE BACK OF HIS HEAD ON A PLASTIC BIN, BUT IT WAS ALSO ON ROLLERS AND IT ROLLED BACK ALSO NO LOSS OF CONSCIOUSNESS PT C/O NECK AND UPPER BACK PAIN--ONLY WHEN HE MOVED HIS NECK. PT HAS CHRONIC NECK AND BACK PAIN PT HAS CHRONIC LOWER BACK PAIN AND HAS HAD PRIOR BACK SURGERY AND THIS PAIN IS NO DIFFERENT IN ANY WAY NO HIP/LEG, SHOULDER/ARM PAIN NO PARESTHESIAS OR MOTOR DEFICITS NO DIZZINESS NO VISION CHANGES NO NAUSEA/VOMITING STATES HE TOOK AN UNKNOWN PAIN PILL SOMETIME SINCE THIS HAPPENED, BUT HAS NO IDEA WHAT KIND OF PILL HE TOOK-OR EVEN IF IT WAS OVER THE COUNTER OR PRESCRIPTION PCP: DR. ROUSE Allergies and Home Medications Allergies Coded Allergies: celecoxib (Unverified Allergy, Mild, TAKES ASPIRIN AT HOME, 12/21/14) diclofenac (Unverified Allergy, Mild, TAKES ASPIRIN AT HOME, 12/21/14) naproxen (Unverified Allergy, Mild, TAKES ASPIRIN AT HOME, 12/21/14) rosuvastatin (Unverified Allergy, Mild, 08/14/08) Penicillins (Verified Allergy, Unknown, 08/03/05) amoxicillin (Verified Allergy, Unknown, 08/03/05) fenofibrate (Unverified Allergy, Unknown, 06/05/16) morphine (Verified Allergy, Unknown, TAKES HYDROCODONE AT HOME, 07/17/14) simvastatin (Unverified Allergy, Unknown, 06/05/16) Uncoded Allergies: GEMIFIBOROZIL (Allergy, Unknown, 06/05/16) Home Medications Apixaban 5 Mg Tablet, 1 TAB PO BID, #60 (Reported) Aspirin 81 Mg Tablet., 81 MG PO DAILY, (Reported) Baclofen 10 Mg Tablet, 1 TAB PO UD, #270 (Reported) Cilostazol 100 Mg Tablet, 1 TAB PO UD, #60 (Reported) Digoxin 125 Mcg Tablet, 125 MCG PO DAILY, (Reported) Enalapril Maleate 10 Mg Tablet, 10 MG PO BID, (Reported) Fenofibrate,Micronized 134 Mg Capsule, 134 MG PO UD, (Reported) Gabapentin 300 Mg Capsule, 600 MG PO HS, (Reported) TAKES 2 (300 MG) CAPSULES Glipizide 10 Mg Tablet, 10 MG PO DAILY, (Reported) Insulin Detemir 100 Unit/1 Ml Insuln.pen, 43 UNIT SQ HS, (Reported) Loratadine 10 Mg Tablet, 10 MG PO DAILY, (Reported) Metoprolol Tartrate 25 Mg Tablet, 12.5 MG PO DAILY, (Reported) TAKES 1/2 OF A (25 MG) Montelukast Sodium 10 Mg Tablet, 10 MG PO DAILY, (Reported) Nitroglycerin 0.4 Mg Tab.subl, 0.4 MG SL UD PRN for CHEST PAIN, (Reported) [place]-3/Dha/Epa/Fish Oil 1,000 Mg Capsule, 1,000 MG PO BID, (Reported) Pantoprazole Sodium 40 Mg Tablet.dr, 1 TAB PC UD, #90 (Reported) Pentoxifylline 400 Mg Tablet.er, 400 MG PO TID, (Reported) Pravastatin Sodium 80 Mg Tablet, #90 (Reported) Prednisolone Acetate 5 Ml Drops.susp, #10 (Reported) Sitagliptin Phosphate 100 Mg Tablet, 1 TAB PO UD, #90 (Reported) Tamsulosin HCl 0.4 Mg Cap.er.24h, 1 TAB PO UD, #90 (Reported) Trazodone HCl 50 Mg Tablet, 50 MG PO HS, (Reported) Umeclidinium Brm/Vilanterol Tr 1 Each Blst.w.dev, 1 PUFF IH DAILY, (Reported) Constitutional: no symptoms reported Eyes: No Symptoms Reported Ears, Nose, Mouth, Throat: no symptoms reported Respiratory: no symptoms reported Cardiovascular: no symptoms reported Gastrointestinal: no symptoms reported Genitourinary: no symptoms reported Musculoskeletal: see HPI, neck pain Skin: no symptoms reported Psychiatric/Neurological: No Symptoms Reported Past Hogqnda-Jbkhyl-Ujxknp Hx Patient Social History Alcohol Use: Rarely Uses Recreational Drug Use: No Smoking Status: Former Smoker (3 PPD, QUIT 200) Type Used: Cigarettes Former Smoker/When Quit: May 31, 1999 2nd Hand Smoke Exposure: Yes Recent Foreign Travel: No Contact w/Someone Who Travel: No Recent Hopitalizations: No Immunizations Up To Date Tetanus Booster (TDap): Less than 5yrs PED Vaccines UTD: No Date of Pneumonia Vaccine: Jun 14, 2015 Date of Influenza Vaccine: Feb 12, 2016 Seasonal Allergies Seasonal Allergies: Yes Surgeries HX Surgeries: Yes (RIGHT KNEE REPLACEMENT; ANGIO SEAL R LEG, HERNIA REPAIR, CARDIAC CATHS; 4 VESSEL CABG 1999; CORONARY STENT X 1; CORONARY BALLOON ANGIOPLASTY X 2; RIGHT LEG STENT X 1 AND ANGIOPLASTY; HERNIA REPAIR AND HIATAL HERNIA REPAIR; BACK SURGERY; LEFT SHOULDER SURGERY; BILATERAL CARPAL TUNNEL; COLONOSCOPY/POLYPECTOMY; CATARACTS; "REVEAL" DEVICE / RECORDER IMPLANTED) Surgeries: Abdominal, Cardiac, CABG, Coronary Stent, Eye Surgery, Gallbladder, Joint Replacement, Open Heart Surgery, Orthopedic, Vascular Surgery Respiratory Hx Respiratory Disorders: Yes (CHRONIC DYSPNEA ON EXERTION) Respiratory Disorders: Sleep Apnea, COPD Cardiovascular Hx Cardiac Disorders: Yes (LABILE BP; 4 VESSEL CABG 1999, CORONARY STENT X 1 AND ANGIOPLASTY X 2; RIGHT LEG STENT X 1 AND ANGIOPLASTY; CAROTID DISEASE--NO INTERVENTION) Cardiac Disorders: Atrial Fibrillation, Coronary Artery Disease, Heart Attack, High Cholesterol, Hypertension, Peripheral Vascular Neurological Hx Neurological Disorders: Yes (POSSIBLE STROKE/ TIA) Neurological Disorders: Stroke, TIA Reproductive System Hx Reproductive Disorders: No Sexually Transmitted Disease: No HIV/AIDS: No Genitourinary Hx Genitourinary Disorders: Yes (RENAL INSUFFICIENCY) Genitourinary Disorders: Benign Prostatic Hyperpl, Prostate Problems, Renal Failure Gastrointestinal Hx Gastrointestinal Disorders: Yes (GASTROPARESIS; GASTRITIS; DUODENITIS; COLON POLYPECTOMY) Gastrointestinal Disorders: Gastroesophageal Reflux, Pancreatitis, Polyps Musculoskeletal Hx Musculoskeletal Disorders: Yes (OLECRANON BURSITIS, CHRONIC NECK PAIN, DISH SYNDROME) Musculoskeletal Disorders: Degenerate Disk Disease, Arthritis, Chronic Back Pain Endocrine Hx Endocrine Disorders: Yes Endocrine Disorders: Diabetes, Insulin dep HEENT HX ENT Disorders: Yes (SINUS PROBLEMS) HEENT Disorders: Cataract Loss of Vision: Denies Hearing Impairment: Denies Cancer Hx Cancer: No Psychosocial Hx Psychiatric Problems: Yes Behavioral Health Disorders: Anxiety Integumentary HX Skin/Integumentary Disorder: No Blood Transfusions Hx Blood Disorders: No Adverse Reaction to a Blood Tr: No Family Medical History Significant Family History: No Pertinent Family Hx Family Medial History: Cancer G8 BROTHER Cataract 19 FATHER 19 MOTHER G8 BROTHER G8 BROTHER G8 SISTER Congestive heart failure 19 FATHER 19 MOTHER Family history: Arthritis 19 FATHER 19 MOTHER G8 BROTHER G8 BROTHER G8 SISTER G8 SISTER DAUGHTER SON Family history: Breast disease DAUGHTER Family history: Cardiovascular disease 19 FATHER Family history: Diabetes mellitus 19 FATHER G8 BROTHER G8 SISTER Family history: Hypertension 19 FATHER 19 MOTHER G8 BROTHER G8 BROTHER G8 SISTER G8 SISTER DAUGHTER SON Family history: Thyroid disorder DAUGHTER Heart disease 19 FATHER 19 MOTHER G8 BROTHER Hypercholesterolemia 19 FATHER 19 MOTHER G8 BROTHER G8 BROTHER G8 SISTER Myocardial infarction 19 FATHER 19 MOTHER G8 BROTHER No Family History of: Abdominal aortic aneurysm Otoe's disease Alcoholism Aphasia Cancer of colon Chest pain Congenital heart disease Cystic fibrosis Dementia Dysphagia Family history: Allergy Family history: Alzheimer's disease Family history: Asthma Family history: Coronary thrombosis Family history: Gastrointestinal disease Family history: Glaucoma Family history: Osteoporosis Headache Hearing loss Hereditary disease History of - anemia History of - disorder History of - respiratory disease History of drug abuse Human immunodeficiency virus (HIV) seropositivity Infertile Kidney disease Malignant neoplasm of lung Parkinson's disease Prostate cancer Psychotic disorder Seizure disorder Stroke Tuberculosis Visual impairment Physical Exam Vital Signs Vital Sign - Last 12Hours 08/09/16 04:36 Temp 98.0 Pulse 73 Resp 18 B/P (MAP) 148/75 Pulse Ox 97 O2 Delivery Room Air Capillary Refill : General Appearance: WD/WN, no apparent distress, other (DOES NOT APPEAR TO BE IN ANY DISCOMFORT, WALKS AND MOVES WITHOUT DIFFICULTY) HEENT: PERRL/EOMI Neck: non-tender, full range of motion, supple, normal inspection, other ( THERE IS NO TENDERNESS OF ANY KIND TO NECK, HAS FULL ROM WITHOUT DIFFICULTY, STATES IT JUST HURTS TO MOVE IT. 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, no motor/sensory deficits, alert, oriented x 3 Skin: normal color, warm/dry, tattoos/piercings (TATTOOS), other (NO EXTERNAL EVIDENCE OF TRAUMA ANYWHERE) [place] Coma Score Best Eye Response: (4) Open Spontaneously Best Verbal Response: (5) Oriented Best Motor Response: (6) Obeys Commands [place] Total: 15 Progress/Results/Core Measures Results/Orders My Orders Orders - ROMAIN KNIGHT DO Ct Head/Cervical Spine Wo (08/09/16 04:43) Ct Thoracic/Lumbar Spine Wo (08/09/16 04:43) Methylprednisolone Sod Succ (Solu-Medrol (08/09/16 06:00) Orphenadrine Injection (Norflex Injectio (08/09/16 06:00) Vital Signs/I&O Vital Sign - Last 12Hours 08/09/16 04:36 Temp 98.0 Pulse 73 Resp 18 B/P (MAP) 148/75 Pulse Ox 97 O2 Delivery Room Air Diagnostic Imaging Comments CT HEAD/ CERVICAL SPINE--CHRONIC CHANGES, NO ACUTE PROCESS PER [facility] VIA FAX @ 3907 CT THORACIC AND LUMBAR SPINE--CHRONIC CHANGES, NO ACUTE PROCESS, PER [facility] VIA FAX @ [id number] Reviewed: Reviewed by Me Departure Impression Impression: Primary Impression: Status post fall Additional Impression: EXACERBATION OF CHRONIC NECK AND BACK PAIN Disposition: HOME, SELF-CARE Condition: Stable Departure-Patient Inst. Referrals: LLUVIA ROUSE DO (PCP/Family) Primary Care Physician Patient Instructions: Cervical Muscle Strain (DC), Chronic Neck Pain (DC), Low Back Pain (DC), MANAGING YOUR CHRONIC PAIN, Upper Back Pain (DC) Add. Discharge Instructions: ALTERNATE ICE AND HEAT TO SORE AREAS AT 20 MINUTE INTERVALS CONTINUE YOUR CURRENT MEDICATIONS PRESCRIBED FOLLOW UP WITH DR. ROUSE IN 3-4 DAYS IF NO BETTER Scripts Methylprednisolone (Medrol) 4 Mg Tab.ds.pk 4 MG PO UD, #1 PKG Prov: ROMAIN KNIGHT DO 08/09/16 ROMAIN KNIGHT DO Aug 09, 2016 04:49
[2016-08-09] MEDS ORDERED: PRED5DRO17 (04:59)
[2016-08-09] MEDS ORDERED: PRAV80TA2 PO (04:59)
[2016-08-09] MEDS ORDERED: ORPHENADRINE 60 MG/2 ML (NORFLEX) AMP IM ONE (06:00)
[2016-08-09] MEDS ORDERED: methylPREDNISolone 125 MG (Solu-MEDROL) VIAL IM ONE (06:00)
[2016-08-09] MEDS ORDERED: METH4TAB PO (06:03)
[2016-08-09 06:11] VITALS: BP 148/75
--- NOTE | 2016-08-09 07:37 | Diagnostic Imaging Report ---
INDICATION: Fell backwards into a plastic bend complaining of back pain. Comparison studies: Lateral chest radiograph from March 21. Technique: Noncontrast CT scanning of the thoracic lumbar spine was obtained with sagittal and coronal reformats. Findings: CT imaging of the thoracic spine demonstrates mild compression defects of T3-T4 and T6 which are probably chronic. No subluxation is present. Visualized portions of the lungs are clear. No rib fractures are identified. Multiple anterior osteophytes are present. No osseous stenosis is seen. Lumbar spine: There is an L1 compression fracture which is probably old. L4-S1 laminectomies are present. No surrounding hematomas are identified. Spinal stenosis present at L3-4. IMPRESSION: 1. There are compression fractures at T3, T4, T6 and L1 which are probably old. 2. Diffuse degenerative changes are present. Findings agree with [facility] report. Dictated by: Dictated on workstation # [id number]
--- NOTE | 2016-08-09 09:32 | Diagnostic Imaging Report ---
PROCEDURE: CT head and CT cervical spine without contrast. TECHNIQUE: Multiple contiguous axial images were obtained through the brain and cervical spine without the use of intravenous contrast. Sagittal and coronal reformations through the cervical spine were then performed. INDICATION: Patient fell backwards into a plastic bend, complaining of posterior neck and upper back pain. Comparison study: CT of the head from 07/17-. FINDINGS: Noncontrast CT scan of the head demonstrates no mass effect, midline shift, hemorrhage or extra-axial fluid collections. No focal areas of ischemia are present. Atrophy and periventricular white matter disease is not significantly change. Bone windows demonstrate no evidence of a fracture. Paranasal sinuses and mastoid air cells are clear. CERVICAL SPINE: Diffuse degenerative changes are present. Anterior ankylosis is seen throughout the cervical spine. Small nodule is present in the right lobe of the thyroid. The lung apices are clear. The C3-4 level demonstrates mild osseous narrowing of the neural foramina bilaterally. C4-5 level demonstrates mild/moderate central stenosis and left foraminal stenosis. C5-6 level demonstrates mild central stenosis and moderate right foraminal stenosis. C6-7 level demonstrates moderate narrowing of the neural foramina bilaterally and mild central stenosis. IMPRESSION: 1. Atrophy and macrovascular disease with no acute intracranial findings appear stable. 2. Degenerative changes are seen in the cervical spine with no acute findings. Dictated by: Dictated on workstation # [id number]
--- OUTSIDE RECORDS SUMMARY | 2016-08-27 05:32 | XMS REPORT | Continuity of Care Document ---
Author Author [facility] Organization [facility] Address Unknown Phone Unavailable Allergies Active Description Code Type Severity Reaction Onset Reported/Identified Relationship to Patient Clinical Status Yes amoxicillin [id number] Drug Allergy Unknown N/A 08/03/2005 Yes morphine [id number] Drug Allergy Unknown N/A 08/03/2005 Yes Penicillins [id number] Drug Allergy Unknown N/A 08/03/2005 Yes celecoxib [id number] Drug Allergy Mild N/A 08/14/2008 Yes naproxen [id number] Drug Allergy Mild N/A 08/14/2008 Yes rosuvastatin [id number] Drug Allergy Mild N/A 08/14/2008 Yes diclofenac [id number] Drug Allergy Mild N/A 09/15/2008 Yes morphine [id number] Drug Allergy Unknown TAKES HYDROCODO 07/17/2014 Yes celecoxib [id number] Drug Allergy Mild TAKES ASPIRIN A 12/21/2014 Yes diclofenac [id number] Drug Allergy Mild TAKES ASPIRIN A 12/21/2014 Yes naproxen [id number] Drug Allergy Mild TAKES ASPIRIN A 12/21/2014 Yes fenofibrate [id number] Drug Allergy Unknown N/A 06/05/2016 Yes GEMIFIBOROZIL GEMIFIBOROZIL Unknown N/A 06/05/2016 Yes simvastatin [id number] Drug Allergy Unknown N/A 06/05/2016 Medications Problems Date Dx Coded Attending Type Code Diagnosis Diagnosed By 02/17/2010 Ot 401.9 02/17/2010 Ot 553.3 02/17/2010 Ot 789.06 02/17/2010 Ot V58.69 02/18/2010 Ot 250.00 02/18/2010 Ot 276.51 02/18/2010 Ot 298.9 02/18/2010 Ot 308.1 02/18/2010 Ot 401.9 02/18/2010 Ot 429.9 02/18/2010 Ot 780.79 02/18/2010 Ot 789.00 02/18/2010 Ot 791.9 03/09/2010 Ot 250.00 03/09/2010 Ot 272.4 03/09/2010 Ot 401.9 03/09/2010 Ot 414.00 03/09/2010 Ot 530.81 03/09/2010 Ot 715.90 03/09/2010 Ot 786.05 03/09/2010 Ot 786.50 03/09/2010 Ot V45.81 03/09/2010 Ot V58.63 03/09/2010 Ot V58.66 03/09/2010 Ot V58.69 04/25/2010 Ot 531.90 STOMACH ULCER NOS 05/27/2010 Ot 530.81 ESOPHAGEAL REFLUX 05/27/2010 Ot 789.06 ABDOMINAL PAIN, EPIGASTRIC 05/31/2010 Ot 250.00 DIAB NAIDA WO COMPL, TYPE II OR UNSPEC TY 05/31/2010 Ot 272.4 HYPERLIPIDEMIA NEC/NOS 05/31/2010 Ot 401.9 HYPERTENSION NOS 05/31/2010 Ot 414.00 CORON ATHEROSCLER NOS TYPE VESSEL, NATIV 05/31/2010 Ot 577.0 ACUTE PANCREATITIS 05/31/2010 Ot V45.81 AORTOCORONARY BYPASS 10/19/2010 Ot 989.5 TOXIC EFFECT VENOM 10/19/2010 Ot E000.8 OTHER EXTERNAL CAUSE STATUS 10/19/2010 Ot E849.0 ACCIDENT IN HOME 10/19/2010 Ot E905.3 HORNET/WASP/BEE STING 11/12/2010 Ot 250.00 DIAB NAIDA WO COMPL, TYPE II OR UNSPEC TY 11/12/2010 Ot 272.4 HYPERLIPIDEMIA NEC/NOS 11/12/2010 Ot 401.9 HYPERTENSION NOS 11/12/2010 Ot 727.05 TENOSYNOV HAND/WRIST NEC 11/12/2010 Ot 729.5 PAIN IN LIMB 03/14/2011 Ot 922.2 CONTUSION ABDOMINAL WALL 03/14/2011 Ot 959.12 OTH INJURY OF ABDOMEN 03/14/2011 Ot E000.8 OTHER EXTERNAL CAUSE STATUS 03/14/2011 Ot E029.9 OTHER ACTIVITY 03/14/2011 Ot E849.0 ACCIDENT IN HOME 03/14/2011 Ot E917.9 STRUCK BY OBJ/PERSON NEC 06/03/2011 Ot 518.0 PULMONARY COLLAPSE 06/03/2011 Ot 530.81 ESOPHAGEAL REFLUX 06/03/2011 Ot 789.06 ABDOMINAL PAIN, EPIGASTRIC 06/22/2011 Ot 530.11 REFLUX ESOPHAGITIS 06/22/2011 Ot 535.50 UNSP GASTRITIS GASTRODUODENITIS W/O ME 06/22/2011 Ot 553.3 DIAPHRAGMATIC HERNIA 11/29/2011 Ot 530.81 ESOPHAGEAL REFLUX 11/29/2011 Ot 789.00 ABDOMINAL PAIN, UNSPECIFIED SITE 12/18/2011 Ot 729.5 PAIN IN LIMB 12/18/2011 Ot 786.50 CHEST PAIN NOS 01/30/2012 Ot 530.81 ESOPHAGEAL REFLUX 01/30/2012 Ot 536.3 GASTROPARESIS 04/19/2012 Ot 250.00 DIAB NAIDA WO COMPL, TYPE II OR UNSPEC TY 04/19/2012 Ot 272.4 HYPERLIPIDEMIA NEC/NOS 04/19/2012 Ot 403.90 HYPTNSV CHR KID DIS, UNSPEC, W CHR KD ST 04/19/2012 Ot 410.71 AC MYOCARDIAL INFARCT,SUBENDO INFARCT,IN 04/19/2012 Ot 414.01 CORONARY ATHEROSCLEROSIS OF [place] CORON 04/19/2012 Ot 414.02 CORON ATHEROSCLEROSIS AUTOLOG VEIN BYPAS 04/19/2012 Ot 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 04/19/2012 Ot 427.32 ATRIAL FLUTTER 04/19/2012 Ot 530.81 ESOPHAGEAL REFLUX 04/19/2012 Ot 585.9 CHRONIC KIDNEY DISEASE, UNSPECIFIED 04/19/2012 Ot 715.90 OSTEOARTHROS NOS-UNSPEC 04/19/2012 Ot V15.82 HISTORY OF TOBACCO USE 10/26/2012 TRELL STARKEY MD Ot 536.8 STOMACH FUNCTION DIS NEC 10/26/2012 TRELL STARKEY MD Ot 789.06 ABDOMINAL PAIN, EPIGASTRIC 12/24/2012 ELENI VILLEDA DO Ot 715.31 LOC OSTEOARTH NOS-SHLDER 12/24/2012 ELENI VILLEDA DO Ot 726.12 BICIPITAL TENOSYNOVITIS 12/24/2012 ELENI VILLEDA DO Ot 726.13 PARTIAL TEAR OF ROTATOR CUFF 12/24/2012 ELENI VILLEDA DO Ot 727.89 SYNOV/TEND/BURSA DIS NEC 12/24/2012 ELENI VILLEDA DO Ot V58.69 OTH MED,LT,CURRENT USE 04/23/2013 SARAH CALLAWAY MD Ot 530.11 REFLUX ESOPHAGITIS 04/23/2013 KIDO MD, TAKAAKI Ot 535.50 UNSP GASTRITIS GASTRODUODENITIS W/O ME 07/19/2013 JENN CARBAJAL Ot 530.81 ESOPHAGEAL REFLUX 07/19/2013 JENN CARBAJAL Ot 787.91 DIARRHEA 07/19/2013 JENN CARBAJAL Ot 789.06 ABDOMINAL PAIN, EPIGASTRIC 08/12/2013 ELENI VILLEDA DO Ot 726.91 EXOSTOSIS, SITE NOS 09/13/2013 JAKY DOUGHERTY, TRELL Bernal Ot 577.0 ACUTE PANCREATITIS 09/13/2013 TRELL STARKEY MD Ot 786.50 CHEST PAIN NOS 09/14/2013 JENN CARBAJAL Ot 535.50 UNSP GASTRITIS GASTRODUODENITIS W/O ME 09/14/2013 JENN CARBAJAL Ot 577.0 ACUTE PANCREATITIS 09/14/2013 JENN CARBAJAL Ot 789.06 ABDOMINAL PAIN, EPIGASTRIC 09/28/2013 JENN CARBAJAL Ot 719.42 JOINT PAIN-UP/ARM 09/28/2013 JENN CARBAJAL Ot 726.33 OLECRANON BURSITIS 11/05/2013 PARIS DOUGHERTY, SONIA R Ot 250.00 DIAB NAIDA WO COMPL, TYPE II OR UNSPEC TY 11/05/2013 SONIA TOLEDO MD R Ot 272.0 PURE HYPERCHOLESTEROLEM 11/05/2013 PARIS DOUGHERTY, SONIA R Ot 403.90 HYPTNSV CHR KID DIS, UNSPEC, W CHR KD ST 11/05/2013 PARIS DOUGHERTY, SONIA R Ot 412 OLD MYOCARDIAL INFARCT 11/05/2013 PARIS DOUGHERTY, SONIA R Ot 414.00 CORON ATHEROSCLER NOS TYPE VESSEL, NATIV 11/05/2013 SONIA TOLEDO MD R Ot 427.31 ATRIAL FIBRILLATION 11/05/2013 SONIA TOLEDO MD R Ot 530.81 ESOPHAGEAL REFLUX 11/05/2013 SONIA TOLEDO MD R Ot 560.9 INTESTINAL OBSTRUCT NOS 11/05/2013 SONIA TOLEDO MD R Ot 577.0 ACUTE PANCREATITIS 11/05/2013 SONIA TOLEDO MD R Ot 585.9 CHRONIC KIDNEY DISEASE, UNSPECIFIED 11/05/2013 SONIA TOLEDO MD R Ot 715.90 OSTEOARTHROS NOS-UNSPEC 11/05/2013 SONIA TOLEDO MD Ot V15.82 HISTORY OF TOBACCO USE 11/05/2013 SONIA TOLEDO MD Ot V45.81 AORTOCORONARY BYPASS 11/05/2013 SONIA TOLEDO MD Ot V45.82 PERCUTANEOUS TRANSLUM CORON ANGIOPLASTY 11/24/2013 NIESHA DOUGHERTY, LEN Sanchez Ot 211.3 BENIGN NEOPLASM LG BOWEL 11/24/2013 NIESHA DOUGHERTY, LEN Sanchez Ot 562.10 DIVERTICULOSIS COLON (W/O MENT OF HEMORR 02/26/2014 DMITRY MEZA MD Ot 250.00 DIAB NAIDA WO COMPL, TYPE II OR UNSPEC TY 02/26/2014 DMITRY MEZA MD Ot 272.4 HYPERLIPIDEMIA NEC/NOS 02/26/2014 DMITRY MEZA MD Ot 401.9 HYPERTENSION NOS 02/26/2014 DMITRY MEZA MD Ot 414.00 CORON ATHEROSCLER NOS TYPE VESSEL, NATIV 02/26/2014 DMITRY MEZA MD Ot 440.21 ATHEROSCL [place] ARTER EXTREM W INTERMIT 02/26/2014 DMITRY MEZA MD Ot V58.61 ANTICOAGULANTS,LT,CURRENT USE 02/26/2014 DMITRY MEZA MD, Ot V58.69 OTH MED,LT,CURRENT USE 02/26/2014 DMITRY MEZA MD Ot V64.1 NO PROC/CONTRAINDICATION 03/20/2014 DMITRY MEZA MD Ot 250.00 DIAB NAIDA WO COMPL, TYPE II OR UNSPEC TY 03/20/2014 DMITRY MEZA MD Ot 272.4 HYPERLIPIDEMIA NEC/NOS 03/20/2014 DMITRY MEZA MD Ot 401.9 HYPERTENSION NOS 03/20/2014 DMITRY MEZA MD Ot 412 OLD MYOCARDIAL INFARCT 03/20/2014 DMITRY MEZA MD Ot 414.01 CORONARY ATHEROSCLEROSIS OF [place] CORON 03/20/2014 DMITRY MEZA MD Ot 433.10 CAROTID ARTERY OCCLUSION W O CEREBRAL IN 03/20/2014 DMITRY MEZA MD Ot 440.21 ATHEROSCL [place] ARTER EXTREM W INTERMIT 03/20/2014 DMITRY MEZA MD Ot 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 03/20/2014 DMITRY MEZA MD Ot V15.82 HISTORY OF TOBACCO USE 03/20/2014 DERRICK DOUGHERTY, DMITRY Dsouza Ot V45.81 AORTOCORONARY BYPASS 03/20/2014 DERRICK DOUGHERTY, DMITRY Dsouza Ot V58.69 OT MED,LT,CURRENT USE 04/08/2014 MICHAELLENDER LLUVIA RIVERA Ot 272.4 04/08/2014 GELLENDER , LLUVIA Bernal Ot 789.00 04/20/2014 GELLENDER , LLUVIA Bernal Ot 272.4 04/20/2014 GELLENDER , LLUVIA Bernal Ot 789.00 05/13/2014 JENN CARBAJAL Ot 719.46 JOINT PAIN-L/LEG 05/13/2014 JENN CARBAJAL Ot 844.9 SPRAIN OF KNEE LEG NOS 05/13/2014 JENN CARBAJAL Ot E000.8 OTHER EXTERNAL CAUSE STATUS 05/13/2014 JENN CARBAJAL Ot E849.6 ACCIDENT IN PUBLIC BLDG 05/13/2014 JENN CARBAJAL Ot E928.9 ACCIDENT NOS 06/12/2014 RONAL DO, ELENI F Ot 715.36 06/12/2014 RONAL DO, ELENI F Ot 717.3 06/12/2014 RONAL DO, ELENI F Ot 719.06 06/12/2014 RONAL DO, ELENI F Ot 726.65 07/07/2014 RONAL DO, ELENI F Ot 715.36 07/07/2014 RONAL DO, ELENI F Ot 717.3 07/07/2014 RONAL DO, ELENI F Ot 719.06 07/07/2014 RONAL DO, ELENI F Ot 726.65 07/07/2014 RONAL DO, ELENI F Ot 715.36 07/07/2014 RONAL DO, ELENI F Ot 717.3 07/07/2014 RONAL DO, ELENI F Ot 719.06 07/07/2014 RONAL DO, ELENI F Ot 726.65 07/18/2014 Ot 250.00 DIAB NAIDA WO COMPL, TYPE II OR UNSPEC TY 07/18/2014 Ot 272.4 HYPERLIPIDEMIA NEC/NOS 07/18/2014 Ot 401.9 HYPERTENSION NOS 07/18/2014 Ot 414.01 CORONARY ATHEROSCLEROSIS OF [place] CORON 07/18/2014 Ot 435.9 TRANS CEREB ISCHEMIA NOS 07/18/2014 Ot 477.9 ALLERGIC RHINITIS NOS 07/18/2014 Ot 530.81 ESOPHAGEAL REFLUX 07/18/2014 Ot V15.82 HISTORY OF TOBACCO USE 07/18/2014 Ot V45.81 AORTOCORONARY BYPASS 07/18/2014 Ot V58.67 LONG-TERM (CURRENT) USE OF INSULIN 12/14/2014 TRELL STARKEY MD Ot 530.11 REFLUX ESOPHAGITIS 12/14/2014 TRELL STARKEY MD Ot 789.06 ABDOMINAL PAIN, EPIGASTRIC 12/23/2014 GELLENDER DO, LLUVIA Bernal Ot 250.00 12/23/2014 GELLENDER DO, LLUVIA Bernal Ot 250.60 DIAB W NEURO MANIFEST, TYPE II OR UNSPEC 12/23/2014 GELLENDER DO, LLUIVA Bernal Ot 272.0 PURE HYPERCHOLESTEROLEM 12/23/2014 GELLENDER DO, LLUVIA Bernal Ot 338.29 OTHER CHRONIC PAIN 12/23/2014 GELLENDER DO, LLUVIA Bernal Ot 403.90 HYPTNSV CHR KID DIS, UNSPEC, W CHR KD ST 12/23/2014 GELLENDER DO, LLUVIA Bernal Ot 412 OLD MYOCARDIAL INFARCT 12/23/2014 GELLENDER DO, LLUVIA Bernal Ot 414.01 CORONARY ATHEROSCLEROSIS OF [place] CORON 12/23/2014 GELLENDER DO, LLUVIA Bernal Ot 427.31 ATRIAL FIBRILLATION 12/23/2014 GELLENDER DO, LLUVIA Bernal Ot 447.9 ARTERIAL DISEASE NOS 12/23/2014 GELLENDER DOLLUVIA Ot 477.9 ALLERGIC RHINITIS NOS 12/23/2014 GELLENDER DOLLUVIA Ot 530.81 ESOPHAGEAL REFLUX 12/23/2014 GELLENDER DOLLUVIA Ot 536.1 AC DILATION OF STOMACH 12/23/2014 GELLENDER DOLLUVIA Ot 536.3 GASTROPARESIS 12/23/2014 GELLENDER DOLLUVIA Ot 553.3 DIAPHRAGMATIC HERNIA 12/23/2014 GELLENDER DOLLUVIA Ot 560.9 12/23/2014 GELLENDER DOLLUVIA Ot 584.9 ACUTE RENAL FAILURE, UNSPECIFIED 12/23/2014 GELLENDER DOLLUVIA Ot 585.9 CHRONIC KIDNEY DISEASE, UNSPECIFIED 12/23/2014 GELLENDER DOLLUVIA Ot 602.9 PROSTATIC DISORDER NOS 12/23/2014 GELLENDER DOLLUVIA Ot 716.90 ARTHROPATHY NOS-UNSPEC 12/23/2014 GELLENDER DOLLUVIA Ot 724.5 BACKACHE NOS 12/23/2014 LLUVIA ROUSE DO Ot 786.59 CHEST PAIN NEC 12/23/2014 LLUVIA ROUSE DO Ot V12.54 PERSONAL HX OF TIA, CEREBRAL INFARCTION 12/23/2014 LLUVIA ROUSE DO Ot V45.81 AORTOCORONARY BYPASS 12/23/2014 LLUVIA ROUSE DO Ot V45.82 PERCUTANEOUS TRANSLUM CORON ANGIOPLASTY 01/08/2015 LEONARDO SALGADO APRN Ot 922.1 CONTUSION OF CHEST WALL 01/08/2015 LEONARDO SALGADO LEAFLET OR NEWSPAPER DELIVERER Ot 959.11 OTH INJURY OF CHEST WALL 01/08/2015 LEONARDO SALGADO LEAFLET OR NEWSPAPER DELIVERER Ot E000.8 OTHER EXTERNAL CAUSE STATUS 01/08/2015 LEONARDO SALGADO APRN Ot E029.9 OTHER ACTIVITY 01/08/2015 LEONARDO SALGADO APRN Ot E849.0 ACCIDENT IN HOME 01/08/2015 LEONARDO SALGADO APRN Ot E888.1 FALL STRIKING OBJECT NEC 01/12/2015 CHARO SCHNEIDER MD Ot 401.9 HYPERTENSION NOS 01/21/2015 RONAL DO, ELENI F Ot 715.36 01/21/2015 RONAL DO, ELENI F Ot 717.3 01/27/2015 RONAL DO, ELENI F Ot 715.36 01/27/2015 RONAL DO, ELENI F Ot 717.3 03/12/2015 RONAL DO, ELENI F Ot 715.36 03/12/2015 RONAL DO, ELENI F Ot 717.3 04/02/2015 JENN CARBAJAL Ot E11.9 TYPE 2 DIABETES MELLITUS WITHOUT COMPLIC 04/02/2015 JENN CARBAJAL Ot K29.00 ACUTE GASTRITIS WITHOUT BLEEDING 04/02/2015 JENN CARBAJAL Ot Z79.4 CARE HOME (CURRENT) USE OF INSULIN 04/02/2015 JENN CARBAJAL Ot Z79.82 CARE HOME (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 06/30/2015 CHARO SCHNEIDER MD Ot F17.210 NICOTINE DEPENDENCE, CIGARETTES, UNCOMPL 06/30/2015 CHARO SCHNEIDER MD Ot M79.1 MYALGIA 06/30/2015 CHARO SCHNEIDER MD Ot Z95.1 PRESENCE OF AORTOCORONARY BYPASS GRAFT 07/15/2015 JOSE DOUGHERTY, BISI Colon Ot E78.2 07/15/2015 JOSE DOUGHERTY, BISI Colon Ot I10 07/15/2015 JOSE DOUGHERTY, BISI Colon Ot I25.10 07/15/2015 JOSE DOUGHERTY, BISI Colon Ot I65.23 07/19/2015 JOSE DOUGHERTY, BISI Colon Ot E78.2 07/19/2015 JOSE DOUGHERTY, BISI Colon Ot I10 07/19/2015 JOSE DOUGHERTY, BISI Colon Ot I25.10 07/19/2015 JOSE DOUGHERTY, BISI Colon Ot I65.23 07/30/2015 Ot 562.10 07/30/2015 Ot 571.8 07/30/2015 Ot 789.00 07/30/2015 Ot 272.4 07/30/2015 Ot 401.9 07/30/2015 Ot 414.00 07/30/2015 Ot 272.4 07/30/2015 Ot V72.84 07/30/2015 Ot 397.0 07/30/2015 Ot 401.9 07/30/2015 Ot 414.00 07/30/2015 Ot 424.0 07/30/2015 Ot 429.3 07/30/2015 Ot 401.9 07/30/2015 Ot 414.00 07/30/2015 RONAL DO, ELENI F Ot 726.2 07/30/2015 RONAL DO, ELENI F Ot 727.61 07/30/2015 RONAL DO, ELENI F Ot V72.84 07/30/2015 RONAL DO, ELENI F Ot V74.8 07/30/2015 CESIA DOUGHERTY, SARAH Ot V72.84 07/30/2015 RONAL DO, ELENI F Ot 726.33 07/30/2015 RONAL DO, ELENI F Ot V72.63 07/30/2015 RONAL DO, ELENI F Ot V72.84 07/30/2015 RNOAL DO, ELENI F Ot V74.8 07/30/2015 JOSE DOUGHERTY, BISI Colon Ot 401.9 07/30/2015 JOSE DOUGHERTY, BISI Colon Ot 414.00 07/30/2015 JOSE DOUGHERTY, BISI Colon Ot 429.3 07/30/2015 JOSE DOUGHERTY, BISI Colon Ot V12.59 07/30/2015 NIESHA DOUGHERTY, LEN Sanchez Ot V72.84 07/30/2015 LLUVIA ROUSE DO Ot 272.4 07/30/2015 LLUVIA ROUSE DO Ot 789.00 07/30/2015 RONAL DO, ELENI Gonzalez Ot 715.36 07/30/2015 RONAL DO, ELENI Gonzalez Ot 717.3 07/30/2015 RONAL DO, ELENI Gonzalez Ot 719.06 07/30/2015 RONAL DO, ELENI Gonzalez Ot 726.65 07/30/2015 RONAL DO, ELENI Gonzalez Ot 715.36 07/30/2015 RONAL DO, ELENI Gonzalez Ot 717.3 07/30/2015 JOSE DOUGHERTY, BISI Colon Ot E78.2 07/30/2015 JOSE DOUGHERTY, BISI Colon Ot I10 07/30/2015 JOSE DOUGHERTY, BISI Colon Ot I25.10 07/30/2015 JOSE DOUGHERTY, BISI Colon Ot I65.23 07/30/2015 CHARO SCHNEIDER MD Ot E11.9 TYPE 2 DIABETES MELLITUS WITHOUT COMPLIC 07/30/2015 CHARO SCHNEIDER MD Ot R14.0 ABDOMINAL DISTENSION (GASEOUS) 08/14/2015 Ot G89.29 OTHER CHRONIC PAIN 08/14/2015 Ot M48.16 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], LUM 08/14/2015 Ot M54.16 RADICULOPATHY, LUMBAR REGION 08/14/2015 Ot Z87.891 PERSONAL HISTORY OF NICOTINE DEPENDENCE 09/02/2015 CHARO SCHNEIDER MD Ot R10.13 EPIGASTRIC PAIN 09/02/2015 CHARO SCHNEIDER MD Ot R14.0 ABDOMINAL DISTENSION (GASEOUS) 09/02/2015 CHARO SCHNEIDER MD Ot Z79.82 CARE HOME (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 09/02/2015 CHARO SCHNEIDER MD Ot Z79.899 OTHER MARKET RESEARCH COORDINATOR (CURRENT) DRUG THERAPY 09/02/2015 CHARO SCHNEIDER MD Ot Z87.891 PERSONAL HISTORY OF NICOTINE DEPENDENCE 09/04/2015 CHARO SCHNEIDER MD Ot R10.13 EPIGASTRIC PAIN 09/04/2015 CHARO SCHNEIDER MD Ot R14.0 ABDOMINAL DISTENSION (GASEOUS) 09/04/2015 CHARO SCHNEIDER MD Ot Z79.82 MARKET RESEARCH COORDINATOR (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 09/04/2015 JENNIE DOUGHERTY, CHARO Fletcher Ot Z79.899 OTHER MARKET RESEARCH COORDINATOR (CURRENT) DRUG THERAPY 09/04/2015 JENNIE DOUGHERTY, CHARO Fletcher Ot Z87.891 PERSONAL HISTORY OF NICOTINE DEPENDENCE 09/08/2015 NIESHA DOUGHERTY, LEN Sanchez Ot K29.70 GASTRITIS, UNSPECIFIED, WITHOUT BLEEDING 09/08/2015 NIESHA DOUGHERTY, LEN Sanchez Ot K29.80 DUODENITIS WITHOUT BLEEDING 09/09/2015 NIESHA DOUGHERTY, LEN Sanchez Ot K29.70 GASTRITIS, UNSPECIFIED, WITHOUT BLEEDING 09/09/2015 NIESHA DOUGHERTY, LEN Sanchez Ot K29.80 DUODENITIS WITHOUT BLEEDING 09/14/2015 Ot 562.10 DIVERTICULOSIS COLON (W/O MENT OF HEMORR 09/14/2015 Ot 571.8 CHRONIC LIVER DIS NEC 09/14/2015 Ot 789.00 ABDOMINAL PAIN, UNSPECIFIED SITE 09/14/2015 Ot 272.4 HYPERLIPIDEMIA NEC/NOS 09/14/2015 Ot 401.9 HYPERTENSION NOS 09/14/2015 Ot 414.00 CORON ATHEROSCLER NOS TYPE VESSEL, NATIV 09/14/2015 Ot 272.4 HYPERLIPIDEMIA NEC/NOS 09/14/2015 Ot V72.84 EXAM PRE-OPERATIVE NOS 09/14/2015 Ot 397.0 TRICUSPID VALVE DISEASE 09/14/2015 Ot 401.9 HYPERTENSION NOS 09/14/2015 Ot 414.00 CORON ATHEROSCLER NOS TYPE VESSEL, NATIV 09/14/2015 Ot 424.0 MITRAL VALVE DISORDER 09/14/2015 Ot 429.3 CARDIOMEGALY 09/14/2015 Ot 401.9 HYPERTENSION NOS 09/14/2015 Ot 414.00 CORON ATHEROSCLER NOS TYPE VESSEL, NATIV 09/14/2015 ELENI VILLEDA DO Ot 726.2 SHOULDER REGION DIS NEC 09/14/2015 ELENI VILLEDA DO Ot 727.61 ROTATOR CUFF RUPTURE 09/14/2015 ELENI VILLEDA DO Ot V72.84 EXAM PRE-OPERATIVE NOS 09/14/2015 ELENI VILLEDA DO Ot V74.8 SCREEN-BACTERIAL DIS NEC 09/14/2015 SARAH CALLAWAY MD Ot V72.84 EXAM PRE-OPERATIVE NOS 09/14/2015 ELENI VILLEDA DO Ot 726.33 OLECRANON BURSITIS 09/14/2015 ELENI VILLEDA DO Ot V72.63 PRE-PROCEDURAL LABORATORY EXAMINATION 09/14/2015 RONAL RIVERA ELENI Gonzalez Ot V72.84 EXAM PRE-OPERATIVE NOS 09/14/2015 RONAL RIVERA ELENI Carlos Ot V74.8 SCREEN-BACTERIAL DIS NEC 09/14/2015 BISI GARCIA MD Ot 401.9 HYPERTENSION NOS 09/14/2015 BISI GARCIA MD Ot 414.00 CORON ATHEROSCLER NOS TYPE VESSEL, NATIV 09/14/2015 BISI GARCIA MD Ot 429.3 CARDIOMEGALY 09/14/2015 BISI GARCIA MD Ot V12.59 HX-CIRCULATORY SYST DIS,NEC 09/14/2015 NIESHA DOUGHERTY, LEN Sanchez Ot V72.84 EXAM PRE-OPERATIVE NOS 09/14/2015 LLUVIA ROUSE DO Ot 272.4 HYPERLIPIDEMIA NEC/NOS 09/14/2015 HERONJULIO LLUVIA RIVERA Ot 789.00 ABDOMINAL PAIN, UNSPECIFIED SITE 09/14/2015 RONAL RIVERA ELENI Carlos Ot 715.36 LOC OSTEOARTH NOS-L/LEG 09/14/2015 ELENI VILLEDA DO Ot 717.3 DERANG MED MENISCUS NEC 09/14/2015 RONAL RIVERA ELENI Carlos Ot 719.06 JOINT EFFUSION-L/LEG 09/14/2015 RONAL RIVERA ELENI Carlos Ot 726.65 PREPATELLAR BURSITIS 09/14/2015 ELENI VILLEDA DO Ot 715.36 LOC OSTEOARTH NOS-L/LEG 09/14/2015 ELENI VILLEDA DO Ot 717.3 DERANG MED MENISCUS NEC 09/14/2015 BISI GARCIA MD Ot E78.2 MIXED HYPERLIPIDEMIA 09/14/2015 BISI GARCIA MD Ot I10 ESSENTIAL (PRIMARY) HYPERTENSION 09/14/2015 BISI GARCIA MD Ot I25.10 ATHSCL HEART DISEASE OF [place] CORONARY 09/14/2015 BISI GARCIA MD Ot I65.23 OCCLUSION AND STENOSIS OF BILATERAL [place] 09/14/2015 LEN SCHERER MD Ot R13.10 DYSPHAGIA, UNSPECIFIED 09/14/2015 LEN SCHERER MD Ot Z01.818 ENCOUNTER FOR OTHER PREPROCEDURAL EXAMIN 09/15/2015 LEN SCHERER MD Ot K29.80 DUODENITIS WITHOUT BLEEDING 09/15/2015 LEN SCHERER MD Ot K29.80 DUODENITIS WITHOUT BLEEDING 09/16/2015 NIESHA DOUGHERTY, LEN M Ot K29.70 GASTRITIS, UNSPECIFIED, WITHOUT BLEEDING 09/16/2015 NIESHA DOUGHERTY, LEN M Ot K29.80 DUODENITIS WITHOUT BLEEDING 09/24/2015 CHARO SCHNEIDER MD, Ot I48.92 UNSPECIFIED ATRIAL FLUTTER 09/24/2015 CHARO SCHNEIDER MD Ot R00.0 TACHYCARDIA, UNSPECIFIED 09/24/2015 CHARO SCHNEIDER MD Ot R42 DIZZINESS AND GIDDINESS 09/24/2015 CHARO SCHNEIDER MD, Ot Z79.82 CARE HOME (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 09/27/2015 CHARO SCHNEIDER MD Ot I48.92 UNSPECIFIED ATRIAL FLUTTER 09/27/2015 CHARO SCHNEIDER MD Ot R00.0 TACHYCARDIA, UNSPECIFIED 09/27/2015 CHARO SCHNEIDER MD, Ot R42 DIZZINESS AND GIDDINESS 09/27/2015 CHARO SCHNEIDER MD, Ot Z79.82 MARKET RESEARCH COORDINATOR (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 10/05/2015 NIESHA DOUGHERTY, LEN Sanchez Ot K29.80 DUODENITIS WITHOUT BLEEDING 10/12/2015 LEN SCHERER MD M Ot K29.80 DUODENITIS WITHOUT BLEEDING 10/23/2015 CHARO SCHNEIDER MD Ot I48.92 UNSPECIFIED ATRIAL FLUTTER 10/23/2015 CHARO SCHNEIDER MD Ot R00.0 TACHYCARDIA, UNSPECIFIED 10/23/2015 CHARO SCHNEIDER MD Ot R42 DIZZINESS AND GIDDINESS 10/23/2015 CHARO SCHNEIDER MD, Ot Z79.82 CARE HOME (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 11/08/2015 JUSTINE TABARES DO, Ot E11.65 TYPE 2 DIABETES MELLITUS WITH HYPERGLYCE 11/08/2015 JUSTINE TABARES DO, Ot I10 ESSENTIAL (PRIMARY) HYPERTENSION 11/08/2015 JUSTINE TABARES DO, Ot Z79.4 MARKET 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 COORDINATOR (CURRENT) USE OF INSULIN 11/08/2015 JUSTINE TABARES DO, Ot Z79.82 MARKET RESEARCH COORDINATOR (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 11/08/2015 JUSTINE TABAERS DO, Ot Z79.899 OTHER CARE HOME (CURRENT) DRUG THERAPY 11/09/2015 RAYSHAWN DO, JUSTINE D Ot E11.65 TYPE 2 DIABETES MELLITUS WITH HYPERGLYCE 11/09/2015 JUSTINE TABARES DO Ot I10 ESSENTIAL (PRIMARY) HYPERTENSION 11/09/2015 JUSTINE TABARES DO Ot Z79.4 CARE HOME (CURRENT) USE OF INSULIN 11/09/2015 JUSTINE TABARES DO Ot Z79.82 CARE HOME (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 11/09/2015 JUSTINE TABARES DO Ot Z79.899 OTHER CARE HOME (CURRENT) DRUG THERAPY 11/12/2015 Ot 530.81 ESOPHAGEAL REFLUX 11/12/2015 Ot 789.06 ABDOMINAL PAIN, EPIGASTRIC 11/30/2015 GELLENDER DO, LLUVIA A Ot M54.5 LOW BACK PAIN 12/02/2015 GELLENDER DO, LLUVIA Bernal Ot M54.5 LOW BACK PAIN 12/24/2015 GELLENDER DO, LLUVIA A Ot M54.5 LOW BACK PAIN 01/21/2016 GELLENDER DO, LLUVIA Bernal Ot M54.5 LOW BACK PAIN 03/01/2016 Ot 272.4 HYPERLIPIDEMIA NEC/NOS 03/01/2016 Ot 401.9 HYPERTENSION NOS 03/01/2016 Ot 414.00 CORON ATHEROSCLER NOS TYPE VESSEL, NATIV 03/01/2016 Ot 272.4 HYPERLIPIDEMIA NEC/NOS 03/01/2016 Ot V72.84 EXAM PRE-OPERATIVE NOS 03/01/2016 Ot 397.0 TRICUSPID VALVE DISEASE 03/01/2016 Ot 401.9 HYPERTENSION NOS 03/01/2016 Ot 414.00 CORON ATHEROSCLER NOS TYPE VESSEL, NATIV 03/01/2016 Ot 424.0 MITRAL VALVE DISORDER 03/01/2016 Ot 429.3 CARDIOMEGALY 03/01/2016 Ot 401.9 HYPERTENSION NOS 03/01/2016 Ot 414.00 CORON ATHEROSCLER NOS TYPE VESSEL, NATIV 03/01/2016 ELENI VILLEDA DO Ot 726.2 SHOULDER REGION DIS NEC 03/01/2016 ELENI VILLEDA DO Ot 727.61 ROTATOR CUFF RUPTURE 03/01/2016 ELENI VILLEDA DO Ot V72.84 EXAM PRE-OPERATIVE NOS 03/01/2016 ELENI VILLEDA DO Ot V74.8 SCREEN-BACTERIAL DIS NEC 03/01/2016 SARAH CALLAWAY MD Ot V72.84 EXAM PRE-OPERATIVE NOS 03/01/2016 ELENI VILLEDA DO Ot 726.33 OLECRANON BURSITIS 03/01/2016 ELENI VILLEDA DO Ot V72.63 PRE-PROCEDURAL LABORATORY EXAMINATION 03/01/2016 RONAL RIVERA ELENI Gonzalez Ot V72.84 EXAM PRE-OPERATIVE NOS 03/01/2016 RONAL RIVERA ELENI Gonzalez Ot V74.8 SCREEN-BACTERIAL DIS NEC 03/01/2016 BISI GARCIA MD Ot 401.9 HYPERTENSION NOS 03/01/2016 BISI GARCIA MD Ot 414.00 CORON ATHEROSCLER NOS TYPE VESSEL, NATIV 03/01/2016 BISI GARCIA MD Ot 429.3 CARDIOMEGALY 03/01/2016 BISI GARCIA MD Ot V12.59 HX-CIRCULATORY SYST DIS,NEC 03/01/2016 NIESHA DOUGHERTY, LEN Sanchez Ot V72.84 EXAM PRE-OPERATIVE NOS 03/01/2016 HERONJULIO DO LLUVIA Bernal Ot 272.4 HYPERLIPIDEMIA NEC/NOS 03/01/2016 PADMA RIVERA LLUVIA Bernal Ot 789.00 ABDOMINAL PAIN, UNSPECIFIED SITE 03/01/2016 RONAL DO ELENI Gonzalez Ot 715.36 LOC OSTEOARTH NOS-L/LEG 03/01/2016 RONAL DO ELENI Gonzalez Ot 717.3 DERANG MED MENISCUS NEC 03/01/2016 RONAL RIVERA ELENI Gonzalez Ot 719.06 JOINT EFFUSION-L/LEG 03/01/2016 RONAL RIVERA ELENI Gonzalez Ot 726.65 PREPATELLAR BURSITIS 03/01/2016 RONAL DO ELNEI Gonzalez Ot 715.36 LOC OSTEOARTH NOS-L/LEG 03/01/2016 RONAL RIVERA ELENI Gonzalez Ot 717.3 DERANG MED MENISCUS NEC 03/01/2016 BISI GARCIA MD Ot E78.2 MIXED HYPERLIPIDEMIA 03/01/2016 BISI GARCIA MD Ot I10 ESSENTIAL (PRIMARY) HYPERTENSION 03/01/2016 BISI GARCIA MD Ot I25.10 ATHSCL HEART DISEASE OF [place] CORONARY 03/01/2016 BISI GARCIA MD Ot I65.23 OCCLUSION AND STENOSIS OF BILATERAL [place] 03/01/2016 NIESHA DOUGHERTY, LEN Sanchez Ot R13.10 DYSPHAGIA, UNSPECIFIED 03/01/2016 NIESHA DOUGHERTY, LEN Sanchez Ot Z01.818 ENCOUNTER FOR OTHER PREPROCEDURAL EXAMIN 03/01/2016 NIESHA DOUGHERTY, LEN Sanchez Ot K29.80 DUODENITIS WITHOUT BLEEDING 03/01/2016 MICHAELSHARRONLLUVIA KIM DO Ot M54.5 LOW BACK PAIN 03/02/2016 BISI GARCIA MD Ot E11.9 TYPE 2 DIABETES MELLITUS WITHOUT COMPLIC 03/02/2016 BISI GARCIA MD, Ot E78.5 HYPERLIPIDEMIA, UNSPECIFIED 03/02/2016 BISI GARCIA MD, Ot I10 ESSENTIAL (PRIMARY) HYPERTENSION 03/02/2016 BISI GARCIA MD, Ot I25.10 ATHSCL HEART DISEASE OF [place] CORONARY 03/02/2016 BISI GARCIA MD, Ot 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 03/02/2016 BISI GARCIA MD, Ot I47.1 SUPRAVENTRICULAR TACHYCARDIA 03/02/2016 BISI GARCIA MD, Ot 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 03/02/2016 BISI GARCIA MD, Ot 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 03/02/2016 BISI GARCIA MD, Ot 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 03/04/2016 RODOLFO CUELLO MD, Ot E11.9 TYPE 2 DIABETES MELLITUS WITHOUT COMPLIC 03/04/2016 RODOLFO CUELLO MD, Ot I10 ESSENTIAL (PRIMARY) HYPERTENSION 03/04/2016 RODOLFO CUELLO MD Ot R10.13 EPIGASTRIC PAIN 03/04/2016 RODOLFO CUELLO MD, Ot Z79.4 CARE HOME (CURRENT) USE OF INSULIN 03/04/2016 RODOLFO CUELLO MD, Ot Z79.84 CARE HOME (CURRENT) USE OF ORAL HYPOGLYC 03/04/2016 RODOLFO CUELLO MD, Ot Z79.899 OTHER MARKET RESEARCH COORDINATOR (CURRENT) DRUG THERAPY 03/04/2016 RODOLFO CUELLO MD, Ot Z95.1 PRESENCE OF AORTOCORONARY BYPASS GRAFT 03/04/2016 RODOLFO CUELLO MD, Ot 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 IMPLANT 03/06/2016 RODOLFO CUELLO MD, Ot E11.9 TYPE 2 DIABETES MELLITUS WITHOUT COMPLIC 03/06/2016 RODOLFO CUELLO MD, Ot I10 ESSENTIAL (PRIMARY) HYPERTENSION 03/06/2016 RODOLFO CUELLO MD Ot R10.13 EPIGASTRIC PAIN 03/06/2016 RODOLFO CUELLO MD Ot Z79.4 MARKET RESEARCH COORDINATOR (CURRENT) USE OF INSULIN 03/06/2016 RODOLFO CUELLO MD Ot Z79.84 CARE HOME (CURRENT) USE OF ORAL HYPOGLYC 03/06/2016 RODOLFO CUELLO MD Ot Z79.899 OTHER CARE HOME (CURRENT) DRUG THERAPY 03/06/2016 RODOLFO CUELLO MD Ot Z95.1 PRESENCE OF AORTOCORONARY BYPASS GRAFT 03/06/2016 RODOLFO CUELLO MD Ot 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 IMPLANT 03/07/2016 RODOLFO CUELLO MD Ot E11.9 TYPE 2 DIABETES MELLITUS WITHOUT COMPLIC 03/07/2016 RODOLFO CUELLO MD Ot I10 ESSENTIAL (PRIMARY) HYPERTENSION 03/07/2016 RODOLFO CUELLO MD Ot R10.13 EPIGASTRIC PAIN 03/07/2016 RODOLFO CUELLO MD Ot Z79.4 MARKET RESEARCH COORDINATOR (CURRENT) USE OF INSULIN 03/07/2016 RODOLFO CUELLO MD Ot Z79.84 MARKET RESEARCH COORDINATOR (CURRENT) USE OF ORAL HYPOGLYC 03/07/2016 RODOLFO CUELLO MD Ot Z79.899 OTHER MARKET RESEARCH COORDINATOR (CURRENT) DRUG THERAPY 03/07/2016 RODOLFO CUELLO MD Ot Z95.1 PRESENCE OF AORTOCORONARY BYPASS GRAFT 03/07/2016 RODOLFO CUELLO MD Ot 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 IMPLANT 03/07/2016 LLUVIA ROUSE DO Ot R14.0 ABDOMINAL DISTENSION (GASEOUS) 03/09/2016 CHARO SCHNEIDER MD Ot E11.9 TYPE 2 DIABETES MELLITUS WITHOUT COMPLIC 03/09/2016 CHARO SCHNEIDER MD Ot I10 ESSENTIAL (PRIMARY) HYPERTENSION 03/09/2016 CHARO SCHNEIDER MD Ot J44.9 CHRONIC OBSTRUCTIVE PULMONARY DISEASE, U 03/09/2016 CHARO SCHNEIDER MD Ot R06.00 DYSPNEA, UNSPECIFIED 03/09/2016 CHARO SCHNEIDER MD Ot R06.02 SHORTNESS OF BREATH 03/09/2016 CHARO SCHNEIDER MD Ot Z79.4 MARKET RESEARCH COORDINATOR (CURRENT) USE OF INSULIN 03/09/2016 CHARO SCHNEIDER MD Ot Z79.84 MARKET RESEARCH COORDINATOR (CURRENT) USE OF ORAL HYPOGLYC 03/09/2016 CHARO SCHNEIDER MD Ot Z79.899 OTHER MARKET RESEARCH COORDINATOR (CURRENT) DRUG THERAPY 03/09/2016 CHARO SCHNEIDER MD Ot Z95.1 PRESENCE OF AORTOCORONARY BYPASS GRAFT 03/09/2016 CHARO SCHNEIDER MD Ot 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 IMPLANT 03/10/2016 CHARO SCHNEIDER MD Ot E11.9 TYPE 2 DIABETES MELLITUS WITHOUT COMPLIC 03/10/2016 CHARO SCHNEIDER MD Ot I10 ESSENTIAL (PRIMARY) HYPERTENSION 03/10/2016 CHARO SCHNEIDER MD, Ot J44.9 CHRONIC OBSTRUCTIVE PULMONARY DISEASE, U 03/10/2016 CHARO SCHNEIDER MD Ot R06.00 DYSPNEA, UNSPECIFIED 03/10/2016 CHARO SCHNEIDER MD Ot R06.02 SHORTNESS OF BREATH 03/10/2016 CHARO SCHNEIDER MD Ot Z79.4 CARE HOME (CURRENT) USE OF INSULIN 03/10/2016 CHARO SCHNEIDER MD Ot Z79.84 CARE HOME (CURRENT) USE OF ORAL HYPOGLYC 03/10/2016 CHARO SCHNEIDER MD Ot Z79.899 OTHER CARE HOME (CURRENT) DRUG THERAPY 03/10/2016 CHARO SCHNEIDER MD Ot Z95.1 PRESENCE OF AORTOCORONARY BYPASS GRAFT 03/10/2016 CHARO SCHNEIDER MD Ot 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 IMPLANT 03/10/2016 LLUVIA ROUSE DO Ot R14.0 ABDOMINAL DISTENSION (GASEOUS) 03/11/2016 CHARO SCHNEIDER MD Ot E11.9 TYPE 2 DIABETES MELLITUS WITHOUT COMPLIC 03/11/2016 CHARO SCHNEIDER MD Ot I10 ESSENTIAL (PRIMARY) HYPERTENSION 03/11/2016 CHARO SCHNEIDER MD, Ot J44.9 CHRONIC OBSTRUCTIVE PULMONARY DISEASE, U 03/11/2016 CHARO SCHNEIDER MD Ot R06.00 DYSPNEA, UNSPECIFIED 03/11/2016 CHARO SCHNEIDER MD Ot R06.02 SHORTNESS OF BREATH 03/11/2016 CHARO SCHNIEDER MD Ot Z79.4 MARKET RESEARCH COORDINATOR (CURRENT) USE OF INSULIN 03/11/2016 CHARO SCHNEIDER MD Ot Z79.84 MARKET RESEARCH COORDINATOR (CURRENT) USE OF ORAL HYPOGLYC 03/11/2016 CHARO SCHNEIDER MD Ot Z79.899 OTHER MARKET RESEARCH COORDINATOR (CURRENT) DRUG THERAPY 03/11/2016 CHARO SCHNEIDER MD, Ot Z95.1 PRESENCE OF AORTOCORONARY BYPASS GRAFT 03/11/2016 CHARO SCHNEIDER MD Ot 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 IMPLANT 03/14/2016 CHARO SCHNEIDER MD Ot E11.9 TYPE 2 DIABETES MELLITUS WITHOUT COMPLIC 03/14/2016 CHARO SCHNEIDER MD Ot I10 ESSENTIAL (PRIMARY) HYPERTENSION 03/14/2016 CHARO SCHENIDER MD, Ot J44.9 CHRONIC OBSTRUCTIVE PULMONARY DISEASE, U 03/14/2016 CHARO SCHNEIDER MD Ot R06.00 DYSPNEA, UNSPECIFIED 03/14/2016 CHARO SCHNEIDER MD Ot R06.02 SHORTNESS OF BREATH 03/14/2016 CHARO SCHNEIDER MD Ot Z79.4 CARE HOME (CURRENT) USE OF INSULIN 03/14/2016 CHARO SCHNEIDER MD Ot Z79.84 CARE HOME (CURRENT) USE OF ORAL HYPOGLYC 03/14/2016 CHARO SCHNEIDER MD, Ot Z79.899 OTHER MARKET RESEARCH COORDINATOR (CURRENT) DRUG THERAPY 03/14/2016 CHARO SCHNEIDER MD Ot Z95.1 PRESENCE OF AORTOCORONARY BYPASS GRAFT 03/14/2016 CHARO SCHNEIDER MD Ot 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 IMPLANT 03/22/2016 LLUVIA ROUSE DO Ot E11.43 TYPE 2 DIABETES W DIABETIC AUTONOMIC (PO 03/22/2016 LLUVIA ROUSE DO Ot E11.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 W DIABETIC PERIPHERAL AN 03/22/2016 LLUVIA ROUSE DO Ot E78.5 HYPERLIPIDEMIA, UNSPECIFIED 03/22/2016 LLUVIA ROUSE DO Ot I10 ESSENTIAL (PRIMARY) HYPERTENSION 03/22/2016 LLUVIA ROUSE DO Ot I25.10 ATHSCL HEART DISEASE OF [place] CORONARY 03/22/2016 PADMA RIVERALLUVIA Ot I25.2 OLD MYOCARDIAL INFARCTION 03/22/2016 PADMA LLUVIA RIVERA Ot I48.0 PAROXYSMAL ATRIAL FIBRILLATION 03/22/2016 MICHAELFRANKLYN LLUVIA RIVERA Ot J44.9 CHRONIC OBSTRUCTIVE PULMONARY DISEASE , U 03/22/2016 PADMA LLUVIA RIVERA Ot K21.9 GASTRO-ESOPHAGEAL REFLUX DISEASE WITHOUT 03/22/2016 MICHAELFRANKLYN LLUVIA RIVERA Ot M48.10 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], SIT 03/22/2016 PADMA RIVERALLUVIA Ot R07.9 CHEST PAIN, UNSPECIFIED 03/22/2016 PADMA RIVERALLUVIA Ot Z79.02 CARE HOME (CURRENT) USE OF ANTITHROMBOTI 03/22/2016 PADMA RIVERALLUVIA Ot Z79.4 CARE HOME (CURRENT) USE OF INSULIN 03/22/2016 PADMA RIVERALLUVIA Ot Z86.73 PRSNL HX OF TIA (TIA), AND CEREB INFRC W 03/22/2016 PADMA RIVERALLUVIA Ot Z87.891 PERSONAL HISTORY OF NICOTINE DEPENDENCE 03/22/2016 PADMA RIVERALLUVIA Ot Z95.1 PRESENCE OF AORTOCORONARY BYPASS GRAFT 03/22/2016 LLUVIA ROUSE DO Ot 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 IMPLANT 03/22/2016 BISI GARCIA MD Ot E11.9 TYPE 2 DIABETES MELLITUS WITHOUT COMPLIC 03/22/2016 BISI GARCIA MD, Ot E78.5 HYPERLIPIDEMIA, UNSPECIFIED 03/22/2016 BISI GARCIA MD Ot I10 ESSENTIAL (PRIMARY) HYPERTENSION 03/22/2016 BISI GARCIA MD, Ot I25.10 ATHSCL HEART DISEASE OF [place] CORONARY 03/22/2016 BISI GARCIA MD Ot 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 03/22/2016 BISI GARCIA MD Ot I47.1 SUPRAVENTRICULAR TACHYCARDIA 03/22/2016 BISI GARCIA MD, Ot 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 03/22/2016 BISI GARCIA MD, Ot 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 03/22/2016 BISI GARCIA MD Ot E11.9 TYPE 2 DIABETES MELLITUS WITHOUT COMPLIC 03/22/2016 BISI GARCIA MD, Ot E78.5 HYPERLIPIDEMIA, UNSPECIFIED 03/22/2016 BISI GARCIA MD Ot I10 ESSENTIAL (PRIMARY) HYPERTENSION 03/22/2016 BISI GARCIA MD, Ot I25.10 ATHSCL HEART DISEASE OF [place] CORONARY 03/22/2016 BISI GARCIA MD, Ot 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 03/22/2016 BISI GARCIA MD, Ot I47.1 SUPRAVENTRICULAR TACHYCARDIA 03/22/2016 BISI GARCIA MD Ot 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 03/22/2016 BISI GARCIA MD, Ot 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 03/22/2016 BISI GARCIA MD, Ot 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 03/28/2016 LLUVIA ROUSE DO Ot R14.0 ABDOMINAL DISTENSION (GASEOUS) 03/30/2016 LLUVIA ROUSE DO Ot R14.0 ABDOMINAL DISTENSION (GASEOUS) 05/31/2016 LLUVIA ROUSE DO Ot E11.43 TYPE 2 DIABETES W DIABETIC AUTONOMIC (PO 05/31/2016 LLUVIA ROUSE DO Ot E13.10 OTH DIABETES MELLITUS WITH KETOACIDOSIS 05/31/2016 LLUVIA ROUSE DO Ot E86.0 DEHYDRATION 05/31/2016 LLUVIA ROUSE DO Ot G47.30 SLEEP APNEA, UNSPECIFIED 05/31/2016 LLUVIA ROUSE DO, Ot I12.9 HYPERTENSIVE CHRONIC KIDNEY DISEASE W ST 05/31/2016 LLUVIA ROUSE DO, Ot I25.10 ATHSCL HEART DISEASE OF [place] CORONARY 05/31/2016 LLUVIA ROUSE DO Ot I25.2 OLD MYOCARDIAL INFARCTION 05/31/2016 LLUVIA ROUSE DO, Ot I48.91 UNSPECIFIED ATRIAL FIBRILLATION 05/31/2016 LLUVIA ROUSE DO, Ot I70.203 UNSP ATHSCL [place] ARTERIES OF EXTREMITI 05/31/2016 LLUVIA ROUSE DO, Ot J44.9 CHRONIC OBSTRUCTIVE PULMONARY DISEASE , U 05/31/2016 LLUVIA ROUSE DO, Ot K21.9 GASTRO-ESOPHAGEAL REFLUX DISEASE WITHOUT 05/31/2016 HERONDER LLUVIA Ot K52.9 NONINFECTIVE GASTROENTERITIS AND COLITIS 05/31/2016 PADMA LLUVIA RIVERA Ot N17.9 ACUTE KIDNEY FAILURE, UNSPECIFIED 05/31/2016 PADMA RIVERALLUVIA Ot N18.9 CHRONIC KIDNEY DISEASE, UNSPECIFIED 05/31/2016 PADMA RIVERALLUVIA Ot R07.9 CHEST PAIN, UNSPECIFIED 05/31/2016 PADMA RIVERALLUVIA Ot R19.7 DIARRHEA, UNSPECIFIED 05/31/2016 PADAM RIVERALLUVIA Ot Z79.4 CARE HOME (CURRENT) USE OF INSULIN 05/31/2016 PADMA RIVERALLUVIA Ot Z87.891 PERSONAL HISTORY OF NICOTINE DEPENDENCE 05/31/2016 PADMA RIVERALLUVIA Ot Z95.1 PRESENCE OF AORTOCORONARY BYPASS GRAFT 05/31/2016 PADMA RIVERALLUVIA Ot 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 IMPLANT 05/31/2016 PADMA RIVERALLUVIA Ot 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 05/31/2016 PADMA LLUVIA RIVERA Ot E11.43 TYPE 2 DIABETES W DIABETIC AUTONOMIC (PO 05/31/2016 PADMA RIVERALLUVIA Ot E13.10 OTH DIABETES MELLITUS WITH KETOACIDOSIS 05/31/2016 MICHAELFRANKLYN [place] Ot E86.0 DEHYDRATION 05/31/2016 PADMA RIVERALLUVIA Ot G47.30 SLEEP APNEA, UNSPECIFIED 05/31/2016 PADMA LLUVIA RIVERA Ot I12.9 HYPERTENSIVE CHRONIC KIDNEY DISEASE W ST 05/31/2016 MICHAELFRANKLYN [place] RIVERA Ot I25.10 ATHSCL HEART DISEASE OF [place] CORONARY 05/31/2016 PADMA RIVERALLUVIA Ot I25.2 OLD MYOCARDIAL INFARCTION 05/31/2016 PADMA LLUVIA RIVERA Ot I48.91 UNSPECIFIED ATRIAL FIBRILLATION 05/31/2016 PADMA LLUVIA RIVERA Ot I70.203 UNSP ATHSCL [place] ARTERIES OF EXTREMITI 05/31/2016 PADMA RIVERALLUVIA Ot J44.9 CHRONIC OBSTRUCTIVE PULMONARY DISEASE , U 05/31/2016 MICHAELFRANKLYN [place] Ot K21.9 GASTRO-ESOPHAGEAL REFLUX DISEASE WITHOUT 05/31/2016 PADMA RIVERALLUVIA Ot K52.9 NONINFECTIVE GASTROENTERITIS AND COLITIS 05/31/2016 PADMA RIVERA, LLUVIA Bernal Ot N17.9 ACUTE KIDNEY FAILURE, UNSPECIFIED 05/31/2016 PADMA RIVERALLUVIA Ot N18.9 CHRONIC KIDNEY DISEASE, UNSPECIFIED 05/31/2016 PADMA RIVERA, LLUVIA Bernal Ot R07.9 CHEST PAIN, UNSPECIFIED 05/31/2016 PADMA RIVERALLUVIA Ot R19.7 DIARRHEA, UNSPECIFIED 05/31/2016 PADMA RIVERA, LLUVIA Bernal Ot Z79.4 CARE HOME (CURRENT) USE OF INSULIN 05/31/2016 PADMA RIVERALLUVIA Ot Z87.891 PERSONAL HISTORY OF NICOTINE DEPENDENCE 05/31/2016 PADMA RIVERALLUVIA Ot Z95.1 PRESENCE OF AORTOCORONARY BYPASS GRAFT 05/31/2016 PADMA RIVERALLUVIA Ot 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 IMPLANT 05/31/2016 PADMA RIVERALLUVIA Ot 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 06/01/2016 PADMA RIVERALLUVIA Ot E11.43 TYPE 2 DIABETES W DIABETIC AUTONOMIC (PO 06/01/2016 PADMA RIVERALLUVIA Ot E11.65 TYPE 2 DIABETES MELLITUS WITH HYPERGLYCE 06/01/2016 PADMA RIVERALLUVIA Ot E13.10 OTH DIABETES MELLITUS WITH KETOACIDOSIS 06/01/2016 PADMA RIVERALLUVIA Ot E86.0 DEHYDRATION 06/01/2016 PADMA RIVERALLUVIA Ot G47.30 SLEEP APNEA, UNSPECIFIED 06/01/2016 PADMA LLUVIA RIVERA Ot I12.9 HYPERTENSIVE CHRONIC KIDNEY DISEASE W ST 06/01/2016 PADMA RIVERALLUVIA Ot I25.10 ATHSCL HEART DISEASE OF [place] CORONARY 06/01/2016 PADMA RIVERALLUVIA Ot I25.2 OLD MYOCARDIAL INFARCTION 06/01/2016 PADMA RIVERALLUVIA Ot I48.91 UNSPECIFIED ATRIAL FIBRILLATION 06/01/2016 PADMA RIVERALLUVIA Ot I70.203 UNSP ATHSCL [place] ARTERIES OF EXTREMITI 06/01/2016 MICHAELFRANKLYN RIVERALLUVIA Ot J44.9 CHRONIC OBSTRUCTIVE PULMONARY DISEASE , U 06/01/2016 MICHAELFRANKLYN [place]IA RIVERA Ot K21.9 GASTRO-ESOPHAGEAL REFLUX DISEASE WITHOUT 06/01/2016 PADMA RIVERALLUVIA Ot K52.9 NONINFECTIVE GASTROENTERITIS AND COLITIS 06/01/2016 LLUIVA ROUSE DO Gabe Ot N17.9 ACUTE KIDNEY FAILURE, UNSPECIFIED 06/01/2016 LLUVIA ROUSE DO Ot N18.9 CHRONIC KIDNEY DISEASE, UNSPECIFIED 06/01/2016 LLUVIA ROUSE DO Ot R07.9 CHEST PAIN, UNSPECIFIED 06/01/2016 PADMA RIVERALLUVIA Ot Z79.4 MARKET RESEARCH COORDINATOR (CURRENT) USE OF INSULIN 06/01/2016 PADMA RIVERA LLUVIA Bernal Ot Z87.891 PERSONAL HISTORY OF NICOTINE DEPENDENCE 06/01/2016 PADMA RIVERALLUVIA Ot Z95.1 PRESENCE OF AORTOCORONARY BYPASS GRAFT 06/01/2016 PADMA RIVERALLUVIA Ot 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 IMPLANT 06/01/2016 PADMA RIVERALLUVIA Ot 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 06/05/2016 LEONARDO SALGADO APRN Ot E11.9 TYPE 2 DIABETES MELLITUS WITHOUT COMPLIC 06/05/2016 LEONARDO SALGADO APRN Ot I10 ESSENTIAL (PRIMARY) HYPERTENSION 06/05/2016 LEONARDO SALGADO APRN Ot J44.9 CHRONIC OBSTRUCTIVE PULMONARY DISEASE, U 06/05/2016 LEONARDO SALGADO APRN Ot K57.30 DVRTCLOS OF LG INT W/O PERFORATION OR AB 06/05/2016 LEONARDO SALGADO APRN Ot N20.0 CALCULUS OF KIDNEY 06/05/2016 LEONARDO SALGADO APRN Ot R10.31 RIGHT LOWER QUADRANT PAIN 06/05/2016 LEONARDO SALGADO APRN Ot Z79.02 CARE HOME (CURRENT) USE OF ANTITHROMBOTI 06/05/2016 LEONARDO SALGADO APRN Ot Z79.82 CARE HOME (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 06/05/2016 LEONARDO SALGADO APRN Ot Z79.84 MARKET RESEARCH COORDINATOR (CURRENT) USE OF ORAL HYPOGLYC 06/05/2016 LEONARDO SALGADO APRN Ot Z79.899 OTHER CARE HOME (CURRENT) DRUG THERAPY 06/05/2016 LEONARDO SALGADO APRN Ot Z95.1 PRESENCE OF AORTOCORONARY BYPASS GRAFT 06/05/2016 LEONARDO SALGADO APRN Ot 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 IMPLANT 06/06/2016 LEONARDO SALGADO APRN Ot E11.9 TYPE 2 DIABETES MELLITUS WITHOUT COMPLIC 06/06/2016 LEONARDO SALGADO APRN Ot I10 ESSENTIAL (PRIMARY) HYPERTENSION 06/06/2016 LEONARDO SALGADO APRN Ot J44.9 CHRONIC OBSTRUCTIVE PULMONARY DISEASE, U 06/06/2016 LEONARDO SALGADO APRN Ot K57.30 DVRTCLOS OF LG INT W/O PERFORATION OR AB 06/06/2016 LEONARDO SALGADO APRN Ot N20.0 CALCULUS OF KIDNEY 06/06/2016 LEONARDO SALGADO APRN Ot R10.31 RIGHT LOWER QUADRANT PAIN 06/06/2016 LEONARDO SALGADO APRN Ot Z79.02 CARE HOME (CURRENT) USE OF ANTITHROMBOTI 06/06/2016 LEONARDO SALGADO APRN Ot Z79.82 CARE HOME (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 06/06/2016 LEONARDO SALGADO APRN Ot Z79.84 MARKET RESEARCH COORDINATOR (CURRENT) USE OF ORAL HYPOGLYC 06/06/2016 LEONARDO SALGADO APRN Ot Z79.899 OTHER CARE HOME (CURRENT) DRUG THERAPY 06/06/2016 LEONARDO SALGADO APRN Ot Z95.1 PRESENCE OF AORTOCORONARY BYPASS GRAFT 06/06/2016 LEONARDO SALGADO APRN Ot 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 IMPLANT 06/20/2016 JENN CARBAJAL Ot E11.9 TYPE 2 DIABETES MELLITUS WITHOUT COMPLIC 06/20/2016 JENN CARBAJAL Ot I10 ESSENTIAL (PRIMARY) HYPERTENSION 06/20/2016 JENN CARBAJAL Ot I48.2 CHRONIC ATRIAL FIBRILLATION 06/20/2016 JENN CARBAJAL Ot S41.112A LACERATION W/O FOREIGN BODY OF LEFT UPPE 06/20/2016 JENN CARBAJAL Ot W19.XXXA UNSPECIFIED FALL, INITIAL ENCOUNTER 06/20/2016 JENN CARBAJAL Ot Y99.8 OTHER EXTERNAL CAUSE STATUS 06/20/2016 JENN CARBAJAL Ot Z79.02 MARKET RESEARCH COORDINATOR (CURRENT) USE OF ANTITHROMBOTI 06/20/2016 JENN CARBAJAL Ot Z79.4 CARE HOME (CURRENT) USE OF INSULIN 06/20/2016 JENN CARBAJAL Ot Z79.82 CARE HOME (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 06/20/2016 JENN CARBAJAL Ot Z79.84 CARE HOME (CURRENT) USE OF ORAL HYPOGLYC 06/20/2016 JENN CARBAJAL Ot Z79.899 OTHER CARE HOME (CURRENT) DRUG THERAPY 06/20/2016 JENN CARBAJAL Ot Z95.1 PRESENCE OF AORTOCORONARY BYPASS GRAFT 06/20/2016 JENN CARBAJAL Ot 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 IMPLANT 06/21/2016 JENN CARBAJAL Ot E11.9 TYPE 2 DIABETES MELLITUS WITHOUT COMPLIC 06/21/2016 JENN CARBAJAL Ot I10 ESSENTIAL (PRIMARY) HYPERTENSION 06/21/2016 JENN CARBAJAL Ot I48.2 CHRONIC ATRIAL FIBRILLATION 06/21/2016 JENN CARBAJAL Ot S41.112A LACERATION W/O FOREIGN BODY OF LEFT UPPE 06/21/2016 JNEN CARBAJAL Ot W19.XXXA UNSPECIFIED FALL, INITIAL ENCOUNTER 06/21/2016 JENN CARBAJAL Ot Y99.8 OTHER EXTERNAL CAUSE STATUS 06/21/2016 JENN CARBAJAL Ot Z79.02 MARKET RESEARCH COORDINATOR (CURRENT) USE OF ANTITHROMBOTI 06/21/2016 JENN CARBAJAL Ot Z79.4 MARKET RESEARCH COORDINATOR (CURRENT) USE OF INSULIN 06/21/2016 JENN CARBAJAL Ot Z79.82 CARE HOME (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 06/21/2016 JENN CARBAJAL Ot Z79.84 CARE HOME (CURRENT) USE OF ORAL HYPOGLYC 06/21/2016 JENN CARBAJAL Ot Z79.899 OTHER MARKET RESEARCH COORDINATOR (CURRENT) DRUG THERAPY 06/21/2016 JENN CARBAJAL Ot Z95.1 PRESENCE OF AORTOCORONARY BYPASS GRAFT 06/21/2016 JENN CARBAJAL Ot 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 IMPLANT 07/02/2016 RODOLFO CUELLO MD Ot E11.65 TYPE 2 DIABETES MELLITUS WITH HYPERGLYCE 07/02/2016 RODOLFO CUELLO MD Ot E86.1 HYPOVOLEMIA 07/02/2016 RODOLFO CUELLO MD Ot I10 ESSENTIAL (PRIMARY) HYPERTENSION 07/02/2016 RODOLFO CUELLO MD Ot I25.10 ATHSCL HEART DISEASE OF [place] CORONARY 07/02/2016 RODOLFO CUELLO MD Ot I48.2 CHRONIC ATRIAL FIBRILLATION 07/02/2016 RODOLFO CUELLO MD Ot I95.1 ORTHOSTATIC HYPOTENSION 07/02/2016 RODOLFO CUELLO MD Ot R42 DIZZINESS AND GIDDINESS 07/02/2016 RODOLFO CUELLO MD Ot Z79.02 MARKET RESEARCH COORDINATOR (CURRENT) USE OF ANTITHROMBOTI 07/02/2016 RODOLFO CUELLO MD Ot Z79.4 MARKET RESEARCH COORDINATOR (CURRENT) USE OF INSULIN 07/02/2016 RODOLFO CUELLO MD Ot Z79.82 MARKET RESEARCH COORDINATOR (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 07/02/2016 RODOLFO CUELLO MD Ot Z79.84 CARE HOME (CURRENT) USE OF ORAL HYPOGLYC 07/02/2016 RODOLFO CUELLO MD Ot Z79.899 OTHER MARKET RESEARCH COORDINATOR (CURRENT) DRUG THERAPY 07/02/2016 RODOLFO CUELLO MD Ot Z87.891 PERSONAL HISTORY OF NICOTINE DEPENDENCE 07/02/2016 RODOLFO CUELLO MD Ot Z95.1 PRESENCE OF AORTOCORONARY BYPASS GRAFT 07/02/2016 RODOLFO CUELLO MD Ot 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 IMPLANT 07/23/2016 TRELL STARKEY MD Ot E11.9 TYPE 2 DIABETES MELLITUS WITHOUT COMPLIC 07/23/2016 TRELL STARKEY MD Ot E86.1 HYPOVOLEMIA 07/23/2016 TRELL STARKEY MD Ot I10 ESSENTIAL (PRIMARY) HYPERTENSION 07/23/2016 TRELL STARKEY MD Ot I25.10 ATHSCL HEART DISEASE OF [place] CORONARY 07/23/2016 TRELL STARKEY MD Ot I48.2 CHRONIC ATRIAL FIBRILLATION 07/23/2016 TRELL STARKEY MD Ot I95.1 ORTHOSTATIC HYPOTENSION 07/23/2016 TRELL STARKEY MD Ot R42 DIZZINESS AND GIDDINESS 07/23/2016 TRELL STARKEY MD Ot Z79.4 MARKET RESEARCH COORDINATOR (CURRENT) USE OF INSULIN 07/23/2016 TRELL STARKEY MD Ot Z79.82 MARKET RESEARCH COORDINATOR (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 07/23/2016 TRELL STARKEY MD A Ot Z79.84 CARE HOME (CURRENT) USE OF ORAL HYPOGLYC 07/23/2016 TRELL STARKEY MD A Ot Z79.899 OTHER CARE HOME (CURRENT) DRUG THERAPY 07/23/2016 TRELL STARKEY MD A Ot Z95.1 PRESENCE OF AORTOCORONARY BYPASS GRAFT 07/23/2016 TRELL STARKEY MD A Ot 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 IMPLANT 07/25/2016 TRELL STARKEY MD Ot E11.9 TYPE 2 DIABETES MELLITUS WITHOUT COMPLIC 07/25/2016 TRELL STARKEY MD Ot E86.1 HYPOVOLEMIA 07/25/2016 TRELL STARKEY MD Ot I10 ESSENTIAL (PRIMARY) HYPERTENSION 07/25/2016 TRELL STARKEY MD A Ot I25.10 ATHSCL HEART DISEASE OF [place] CORONARY 07/25/2016 TRELL STARKEY MD Ot I48.2 CHRONIC ATRIAL FIBRILLATION 07/25/2016 TRELL STARKEY MD Ot I95.1 ORTHOSTATIC HYPOTENSION 07/25/2016 TRELL STARKEY MD Ot R42 DIZZINESS AND GIDDINESS 07/25/2016 TRELL STARKEY MD A Ot Z79.4 MARKET RESEARCH COORDINATOR (CURRENT) USE OF INSULIN 07/25/2016 TRELL STARKEY MD A Ot Z79.82 CARE HOME (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 07/25/2016 TRELL STARKEY MD A Ot Z79.84 MARKET RESEARCH COORDINATOR (CURRENT) USE OF ORAL HYPOGLYC 07/25/2016 TRELL STARKEY MD A Ot Z79.899 OTHER CARE HOME (CURRENT) DRUG THERAPY 07/25/2016 TRELL STARKEY MD A Ot Z95.1 PRESENCE OF AORTOCORONARY BYPASS GRAFT 07/25/2016 TRELL STARKEY MD A Ot 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 IMPLANT 08/09/2016 EUGENE DO, ROMAIN K Ot E04.1 NONTOXIC SINGLE THYROID NODULE 08/09/2016 EUGENE DO, ROMAIN K Ot E11.9 TYPE 2 DIABETES MELLITUS WITHOUT COMPLIC 08/09/2016 EUGENE DO, ROMAIN K Ot F17.210 NICOTINE DEPENDENCE, CIGARETTES, UNCOMPL 08/09/2016 EUGENE DO, ROMAIN K Ot G89.29 OTHER CHRONIC PAIN 08/09/2016 EUGENE DO, ROMAIN K Ot I10 ESSENTIAL (PRIMARY) HYPERTENSION 08/09/2016 EUGENE DO, ROMAIN K Ot I25.10 ATHSCL HEART DISEASE OF [place] CORONARY 08/09/2016 ROMAIN KNIGHT DO Ot I48.2 CHRONIC ATRIAL FIBRILLATION 08/09/2016 ROMAIN KNIGHT DO Ot M43.22 FUSION OF SPINE, CERVICAL REGION 08/09/2016 ROMAIN KNIGHT DO Ot M47.812 SPONDYLOSIS W/O MYELOPATHY OR RADICULOPA 08/09/2016 ROMAIN KNIGHT DO Ot M47.814 SPONDYLOSIS W/O MYELOPATHY OR RADICULOPA 08/09/2016 ROMAIN KNIGHT DO Ot S19.9XXA UNSPECIFIED INJURY OF NECK, INITIAL ENCO 08/09/2016 ROMAIN KNIGHT DO Ot Z79.01 CARE HOME (CURRENT) USE OF ANTICOAGULANT 08/09/2016 ROMAIN KNIGHT DO Ot Z79.82 CARE HOME (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 08/09/2016 ROMAIN KNIGHT DO Ot Z79.899 OTHER MARKET 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 COORDINATOR (CURRENT) DRUG THERAPY 08/09/2016 ROMAIN KNIGHT DO Ot 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 IMPLANT 08/11/2016 ROMAIN KNIGHT DO Ot E04.1 NONTOXIC SINGLE THYROID NODULE 08/11/2016 ROMAIN KNIGHT DO Ot E11.9 TYPE 2 DIABETES MELLITUS WITHOUT COMPLIC 08/11/2016 ROMAIN KNIGHT DO Ot F17.210 NICOTINE DEPENDENCE, CIGARETTES, UNCOMPL 08/11/2016 ROMAIN KNIGHT DO Ot G89.29 OTHER CHRONIC PAIN 08/11/2016 ROMAIN KNIGHT DO Ot I10 ESSENTIAL (PRIMARY) HYPERTENSION 08/11/2016 ROMAIN KNIGHT DO Ot I25.10 ATHSCL HEART DISEASE OF [place] CORONARY 08/11/2016 ROMAIN KNIGHT DO Ot I48.2 CHRONIC ATRIAL FIBRILLATION 08/11/2016 ROMAIN KNIGHT DO Ot M43.22 FUSION OF SPINE, CERVICAL REGION 08/11/2016 ROMAIN KNIGHT DO Ot M47.812 SPONDYLOSIS W/O MYELOPATHY OR RADICULOPA 08/11/2016 ROMAIN KNIGHT DO Ot M47.814 SPONDYLOSIS W/O MYELOPATHY OR RADICULOPA 08/11/2016 ROMAIN KNIGHT DO Ot S19.9XXA UNSPECIFIED INJURY OF NECK, INITIAL ENCO 08/11/2016 ROMAIN KNIGHT DO Ot Z79.01 CARE HOME (CURRENT) USE OF ANTICOAGULANT 08/11/2016 ROMAIN KNIGHT DO Ot Z79.82 MARKET RESEARCH COORDINATOR (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 08/11/2016 ROMAIN KNIGHT DO Ot Z79.899 OTHER CARE HOME (CURRENT) DRUG THERAPY 08/11/2016 ROMAIN KNIGHT DO Ot 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 IMPLANT Procedures Code Description Performed By Performed On 00.40 04/18/2012 00.45 04/18/2012 00.66 04/18/2012 36.06 04/18/2012 37.22 04/18/2012 88.53 04/18/2012 88.56 04/18/2012 99.10 04/18/2012 [id number] INSERT OF MONITOR DEV INTO CHEST SUBCU/F 03/22/2016 Results Test Result Range Complete urinalysis with reflex to culture - 03/01/16 07:45 Urine color determination YELLOW NRG Urine clarity determination CLEAR NRG Urine pH measurement by test strip 6 5- 9 Specific gravity of urine by test strip 1.015 1.016-1.022 Urine protein assay by test strip, semi-quantitative NEGATIVE NEGATIVE Urine glucose detection by automated test strip NEGATIVE NEGATIVE Erythrocytes detection in urine sediment by light microscopy NEGATIVE NEGATIVE Urine ketones detection by automated test strip NEGATIVE NEGATIVE Urine nitrite detection by test strip NEGATIVE NEGATIVE Urine total bilirubin detection by test strip NEGATIVE NEGATIVE Urine urobilinogen measurement by automated test strip (mass/volume) NORMAL NORMAL Urine leukocyte esterase detection by dipstick 1+ NEGATIVE Automated urine sediment erythrocyte count by microscopy (number/high power field) NONE NRG Automated urine sediment leukocyte count by microscopy (number/high power field ) [HPF] NRG Bacteria detection in urine sediment by light microscopy NEGATIVE NRG Squamous epithelial cells detection in urine sediment by light microscopy RARE NRG Crystals detection in urine sediment by light microscopy NONE NRG Casts detection in urine sediment by light microscopy NONE NRG Mucus detection in urine sediment by light microscopy NEGATIVE NRG Complete urinalysis with reflex to culture NO NRG Automated blood complete blood count (hemogram) panel - 03/01/16 08:04 Blood leukocytes automated count (number/volume) 6.9 10*3/ uL 4.3-11.0 Blood erythrocytes automated count (number/volume) 4.77 10*6 /uL 4.35-5.85 Venous blood hemoglobin measurement (mass/volume) 14.4 g/dL 13.3-17.7 Blood hematocrit (volume fraction) 43 % 40-54 Automated erythrocyte mean corpuscular volume 90 [foz_us] 80-99 Automated erythrocyte mean corpuscular hemoglobin (mass per erythrocyte) 30 pg 25-34 Automated erythrocyte mean corpuscular hemoglobin concentration measurement ( mass/volume) 34 g/dL 32-36 Automated erythrocyte distribution width ratio 13.8 % 10.0-14.5 Automated blood platelet count (count/volume) 193 10*3/uL 130-400 Automated blood platelet mean volume measurement 11.1 [foz_ us] 7.4-10.4 PT panel in platelet poor plasma by coagulation assay - 03/01/16 08:04 Prothrombin time (PT) in platelet poor plasma by coagulation assay 13.5 s 12.2-14.7 INR in platelet poor plasma or blood by coagulation assay 1.1 0.8-1.4 Activated partial thromboplastin time (aPTT) in platelet poor plasma bycoagulation assay - 03/01/16 08:04 Activated partial thromboplastin time (aPTT) in platelet poor plasma bycoagulation assay 27 s 24-35 Comprehensive metabolic panel - 03/01/16 08:04 Serum or plasma sodium measurement (moles/volume) 141 mmol/ L 135-145 Serum or plasma potassium measurement (moles/volume) 4.3 mmol/L 3.6-5.0 Serum or plasma chloride measurement (moles/volume) 108 mmol /L 98-107 Carbon dioxide 26 mmol/L 21-32 Serum or plasma anion gap determination (moles/volume) 7 mmol/L 5-14 Serum or plasma urea nitrogen measurement (mass/volume) 24 mg/dL 7-18 Serum or plasma creatinine measurement (mass/volume) 1.76 mg /dL 0.60-1.30 Serum or plasma urea nitrogen/creatinine mass ratio 14 NRG Serum or plasma creatinine measurement with calculation of estimated glomerular filtration rate 38 NRG Serum or plasma glucose measurement (mass/volume) 179 mg/dL 70-105 Serum or plasma calcium measurement (mass/volume) 9.9 mg/dL 8.5-10.1 Serum or plasma total bilirubin measurement (mass/volume) 0.4 mg/dL 0.1-1.0 Serum or plasma alkaline phosphatase measurement (enzymatic activity/volume) 60 U/L 40-136 Serum or plasma aspartate aminotransferase measurement (enzymatic activity/ volume) 23 U/L 5-34 Serum or plasma alanine aminotransferase measurement (enzymatic activity/volume ) 26 U/L 0-55 Serum or plasma protein measurement (mass/volume) 7.3 g/dL 6.4-8.2 Serum or plasma albumin measurement (mass/volume) 4.3 g/dL 3.2-4.5 Lipid 1996 panel - 03/01/16 08:04 Serum or plasma triglyceride measurement (mass/volume) 213 mg/dL <150 Serum or plasma cholesterol measurement (mass/volume) 141 mg /dL < 200 Serum or plasma cholesterol in HDL measurement (mass/volume) 28 mg/dL 40-60 Cholesterol in LDL [mass/volume] in serum or plasma by direct assay 86 mg/dL 1-129 Serum or plasma cholesterol in VLDL measurement (mass/volume) 43 mg/dL 5-40 Methicillin resistant Staphylococcus aureus (MRSA) screening culture - 08:04 Methicillin resistant Staphylococcus aureus (MRSA) screening culture NEG NRG Capillary blood glucose measurement by glucometer (mass/volume) - 03/01/16 19: 40 Capillary blood glucose measurement by glucometer (mass/volume) 234 mg/dL 70-110 Whole blood basic metabolic panel - 03/02/16 03:49 Serum or plasma sodium measurement (moles/volume) 141 mmol/ L 135-145 Serum or plasma potassium measurement (moles/volume) 3.9 mmol/L 3.6-5.0 Serum or plasma chloride measurement (moles/volume) 111 mmol /L 98-107 Carbon dioxide 21 mmol/L 21-32 Serum or plasma anion gap determination (moles/volume) 9 mmol/L 5-14 Serum or plasma urea nitrogen measurement (mass/volume) 20 mg/dL 7-18 Serum or plasma creatinine measurement (mass/volume) 1.32 mg /dL 0.60-1.30 Serum or plasma urea nitrogen/creatinine mass ratio 15 NRG Serum or plasma creatinine measurement with calculation of estimated glomerular filtration rate 53 NRG Serum or plasma glucose measurement (mass/volume) 94 mg/dL 70-105 Serum or plasma calcium measurement (mass/volume) 9.1 mg/dL 8.5-10.1 Complete blood count (CBC) with automated white blood cell (WBC) differential - 03/04/16 21:30 Blood leukocytes automated count (number/volume) 8.3 10*3/ uL 4.3-11.0 Blood erythrocytes automated count (number/volume) 4.50 10*6 /uL 4.35-5.85 Venous blood hemoglobin measurement (mass/volume) 13.6 g/dL 13.3-17.7 Blood hematocrit (volume fraction) 40 % 40-54 Automated erythrocyte mean corpuscular volume 89 [foz_us] 80-99 Automated erythrocyte mean corpuscular hemoglobin (mass per erythrocyte) 30 pg 25-34 Automated erythrocyte mean corpuscular hemoglobin concentration measurement ( mass/volume) 34 g/dL 32-36 Automated erythrocyte distribution width ratio 13.8 % 10.0-14.5 Automated blood platelet count (count/volume) 217 10*3/uL 130-400 Automated blood platelet mean volume measurement 10.7 [foz_ us] 7.4-10.4 Automated blood neutrophils/100 leukocytes 72 % 42-75 Automated blood lymphocytes/100 leukocytes 19 % 12-44 Blood monocytes/100 leukocytes 6 % 0-12 Automated blood eosinophils/100 leukocytes 2 % 0-10 Automated blood basophils/100 leukocytes 0 % 0-10 Blood neutrophils automated count (number/volume) 6.0 10*3 1.8-7.8 Blood lymphocytes automated count (number/volume) 1.6 10*3 1.0-4.0 Blood monocytes automated count (number/volume) 0.5 10*3 0.0-1.0 Automated eosinophil count 0.2 10*3/uL 0.0-0.3 Automated blood basophil count (count/volume) 0.0 10*3/uL 0.0-0.1 Comprehensive metabolic panel - 03/04/16 21:30 Serum or plasma sodium measurement (moles/volume) 139 mmol/ L 135-145 Serum or plasma potassium measurement (moles/volume) 3.9 mmol/L 3.6-5.0 Serum or plasma chloride measurement (moles/volume) 105 mmol /L 98-107 Carbon dioxide 23 mmol/L 21-32 Serum or plasma anion gap determination (moles/volume) 11 mmol/L 5-14 Serum or plasma urea nitrogen measurement (mass/volume) 19 mg/dL 7-18 Serum or plasma creatinine measurement (mass/volume) 1.63 mg /dL 0.60-1.30 Serum or plasma urea nitrogen/creatinine mass ratio 12 NRG Serum or plasma creatinine measurement with calculation of estimated glomerular filtration rate 42 NRG Serum or plasma glucose measurement (mass/volume) 228 mg/dL 70-105 Serum or plasma calcium measurement (mass/volume) 9.8 mg/dL 8.5-10.1 Serum or plasma total bilirubin measurement (mass/volume) 0.5 mg/dL 0.1-1.0 Serum or plasma alkaline phosphatase measurement (enzymatic activity/volume) 67 U/L 40-136 Serum or plasma aspartate aminotransferase measurement (enzymatic activity/ volume) 19 U/L 5-34 Serum or plasma alanine aminotransferase measurement (enzymatic activity/volume ) 23 U/L 0-55 Serum or plasma protein measurement (mass/volume) 7.1 g/dL 6.4-8.2 Serum or plasma albumin measurement (mass/volume) 4.2 g/dL 3.2-4.5 Serum or plasma troponin i.cardiac measurement (mass/volume) - 03/04/16 21:30 Serum or plasma troponin i.cardiac measurement (mass/volume) < ng/mL <0.30 Lipase - 03/04/16 21:30 Lipase 60 U/L 8-78 Complete blood count (CBC) with automated white blood cell (WBC) differential - 03/09/16 17:10 Blood leukocytes automated count (number/volume) 7.0 10*3/ uL 4.3-11.0 Blood erythrocytes automated count (number/volume) 4.36 10*6 /uL 4.35-5.85 Venous blood hemoglobin measurement (mass/volume) 13.2 g/dL 13.3-17.7 Blood hematocrit (volume fraction) 39 % 40-54 Automated erythrocyte mean corpuscular volume 89 [foz_us] 80-99 Automated erythrocyte mean corpuscular hemoglobin (mass per erythrocyte) 30 pg 25-34 Automated erythrocyte mean corpuscular hemoglobin concentration measurement ( mass/volume) 34 g/dL 32-36 Automated erythrocyte distribution width ratio 13.6 % 10.0-14.5 Automated blood platelet count (count/volume) 223 10*3/uL 130-400 Automated blood platelet mean volume measurement 10.7 [foz_ us] 7.4-10.4 Automated blood neutrophils/100 leukocytes 73 % 42-75 Automated blood lymphocytes/100 leukocytes 17 % 12-44 Blood monocytes/100 leukocytes 8 % 0-12 Automated blood eosinophils/100 leukocytes 2 % 0-10 Automated blood basophils/100 leukocytes 0 % 0-10 Blood neutrophils automated count (number/volume) 5.1 10*3 1.8-7.8 Blood lymphocytes automated count (number/volume) 1.2 10*3 1.0-4.0 Blood monocytes automated count (number/volume) 0.5 10*3 0.0-1.0 Automated eosinophil count 0.2 10*3/uL 0.0-0.3 Automated blood basophil count (count/volume) 0.0 10*3/uL 0.0-0.1 Comprehensive metabolic panel - 03/09/16 17:10 Serum or plasma sodium measurement (moles/volume) 135 mmol/ L 135-145 Serum or plasma potassium measurement (moles/volume) 4.4 mmol/L 3.6-5.0 Serum or plasma chloride measurement (moles/volume) 104 mmol /L 98-107 Carbon dioxide 26 mmol/L 21-32 Serum or plasma anion gap determination (moles/volume) 5 mmol/L 5-14 Serum or plasma urea nitrogen measurement (mass/volume) 21 mg/dL 7-18 Serum or plasma creatinine measurement (mass/volume) 1.92 mg /dL 0.60-1.30 Serum or plasma urea nitrogen/creatinine mass ratio 11 NRG Serum or plasma creatinine measurement with calculation of estimated glomerular filtration rate 35 NRG Serum or plasma glucose measurement (mass/volume) 348 mg/dL 70-105 Serum or plasma calcium measurement (mass/volume) 9.6 mg/dL 8.5-10.1 Serum or plasma total bilirubin measurement (mass/volume) 0.6 mg/dL 0.1-1.0 Serum or plasma alkaline phosphatase measurement (enzymatic activity/volume) 58 U/L 40-136 Serum or plasma aspartate aminotransferase measurement (enzymatic activity/ volume) 28 U/L 5-34 Serum or plasma alanine aminotransferase measurement (enzymatic activity/volume ) 38 U/L 0-55 Serum or plasma protein measurement (mass/volume) 6.9 g/dL 6.4-8.2 Serum or plasma albumin measurement (mass/volume) 4.1 g/dL 3.2-4.5 Serum or plasma troponin i.cardiac measurement (mass/volume) - 03/09/16 17:10 Serum or plasma troponin i.cardiac measurement (mass/volume) < ng/mL <0.30 Complete blood count (CBC) with automated white blood cell (WBC) differential - 03/21/16 18:00 Blood leukocytes automated count (number/volume) 7.9 10*3/ uL 4.3-11.0 Blood erythrocytes automated count (number/volume) 4.54 10*6 /uL 4.35-5.85 Venous blood hemoglobin measurement (mass/volume) 13.5 g/dL 13.3-17.7 Blood hematocrit (volume fraction) 40 % 40-54 Automated erythrocyte mean corpuscular volume 88 [foz_us] 80-99 Automated erythrocyte mean corpuscular hemoglobin (mass per erythrocyte) 30 pg 25-34 Automated erythrocyte mean corpuscular hemoglobin concentration measurement ( mass/volume) 34 g/dL 32-36 Automated erythrocyte distribution width ratio 13.7 % 10.0-14.5 Automated blood platelet count (count/volume) 246 10*3/uL 130-400 Automated blood platelet mean volume measurement 10.6 [foz_ us] 7.4-10.4 Automated blood neutrophils/100 leukocytes 65 % 42-75 Automated blood lymphocytes/100 leukocytes 24 % 12-44 Blood monocytes/100 leukocytes 8 % 0-12 Automated blood eosinophils/100 leukocytes 3 % 0-10 Automated blood basophils/100 leukocytes 1 % 0-10 Blood neutrophils automated count (number/volume) 5.1 10*3 1.8-7.8 Blood lymphocytes automated count (number/volume) 1.9 10*3 1.0-4.0 Blood monocytes automated count (number/volume) 0.6 10*3 0.0-1.0 Automated eosinophil count 0.2 10*3/uL 0.0-0.3 Automated blood basophil count (count/volume) 0.0 10*3/uL 0.0-0.1 Serum or plasma troponin i.cardiac measurement (mass/volume) - 03/21/16 18:00 Serum or plasma troponin i.cardiac measurement (mass/volume) < ng/mL <0.30 PT panel in platelet poor plasma by coagulation assay - 03/21/16 18:00 Prothrombin time (PT) in platelet poor plasma by coagulation assay 13.2 s 12.2-14.7 INR in platelet poor plasma or blood by coagulation assay 1.0 0.8-1.4 Fibrin D-dimer FEU measurement in platelet poor plasma (mass/volume) - 18:00 Fibrin D-dimer FEU measurement in platelet poor plasma (mass/volume) 0.42 ug/mL 0.00-0.49 Comprehensive metabolic panel - 03/21/16 18:00 Serum or plasma sodium measurement (moles/volume) 137 mmol/ L 135-145 Serum or plasma potassium measurement (moles/volume) 4.6 mmol/L 3.6-5.0 Serum or plasma chloride measurement (moles/volume) 106 mmol /L 98-107 Carbon dioxide 20 mmol/L 21-32 Serum or plasma anion gap determination (moles/volume) 11 mmol/L 5-14 Serum or plasma urea nitrogen measurement (mass/volume) 19 mg/dL 7-18 Serum or plasma creatinine measurement (mass/volume) 1.83 mg /dL 0.60-1.30 Serum or plasma urea nitrogen/creatinine mass ratio 10 NRG Serum or plasma creatinine measurement with calculation of estimated glomerular filtration rate 36 NRG Serum or plasma glucose measurement (mass/volume) 316 mg/dL 70-105 Serum or plasma calcium measurement (mass/volume) 9.6 mg/dL 8.5-10.1 Serum or plasma total bilirubin measurement (mass/volume) 0.4 mg/dL 0.1-1.0 Serum or plasma alkaline phosphatase measurement (enzymatic activity/volume) 63 U/L 40-136 Serum or plasma aspartate aminotransferase measurement (enzymatic activity/ volume) 18 U/L 5-34 Serum or plasma alanine aminotransferase measurement (enzymatic activity/volume ) 30 U/L 0-55 Serum or plasma protein measurement (mass/volume) 6.9 g/dL 6.4-8.2 Serum or plasma albumin measurement (mass/volume) 4.2 g/dL 3.2-4.5 Magnesium - 03/21/16 18:00 Magnesium 1.9 mg/dL 1.8-2.4 Lipase - 03/21/16 18:00 Lipase 84 U/L 8-78 Methicillin resistant Staphylococcus aureus (MRSA) screening culture - 21:30 Methicillin resistant Staphylococcus aureus (MRSA) screening culture NEG NRG Blood lactic acid measurement (moles/volume) - 05/30/16 00:07 Blood lactic acid measurement (moles/volume) 0.8 mmol/L 0.5-2.0 Complete blood count (CBC) with automated white blood cell (WBC) differential - 05/30/16 20:34 Blood leukocytes automated count (number/volume) 13.2 10*3/ uL 4.3-11.0 Blood erythrocytes automated count (number/volume) 5.10 10*6 /uL 4.35-5.85 Venous blood hemoglobin measurement (mass/volume) 15.2 g/dL 13.3-17.7 Blood hematocrit (volume fraction) 45 % 40-54 Automated erythrocyte mean corpuscular volume 89 [foz_us] 80-99 Automated erythrocyte mean corpuscular hemoglobin (mass per erythrocyte) 30 pg 25-34 Automated erythrocyte mean corpuscular hemoglobin concentration measurement ( mass/volume) 34 g/dL 32-36 Automated erythrocyte distribution width ratio 13.5 % 10.0-14.5 Automated blood platelet count (count/volume) 257 10*3/uL 130-400 Automated blood platelet mean volume measurement 10.4 [foz_ us] 7.4-10.4 Automated blood neutrophils/100 leukocytes 83 % 42-75 Automated blood lymphocytes/100 leukocytes 10 % 12-44 Blood monocytes/100 leukocytes 6 % 0-12 Automated blood eosinophils/100 leukocytes 1 % 0-10 Automated blood basophils/100 leukocytes 0 % 0-10 Blood neutrophils automated count (number/volume) 11.0 10*3 1.8-7.8 Blood lymphocytes automated count (number/volume) 1.4 10*3 1.0-4.0 Blood monocytes automated count (number/volume) 0.8 10*3 0.0-1.0 Automated eosinophil count 0.1 10*3/uL 0.0-0.3 Automated blood basophil count (count/volume) 0.0 10*3/uL 0.0-0.1 PT panel in platelet poor plasma by coagulation assay - 05/30/16 20:34 Prothrombin time (PT) in platelet poor plasma by coagulation assay 13.6 s 12.2-14.7 INR in platelet poor plasma or blood by coagulation assay 1.1 0.8-1.4 Activated partial thromboplastin time (aPTT) in platelet poor plasma bycoagulation assay - 05/30/16 20:34 Activated partial thromboplastin time (aPTT) in platelet poor plasma bycoagulation assay 26 s 24-35 Comprehensive metabolic panel - 05/30/16 20:34 Serum or plasma sodium measurement (moles/volume) 135 mmol/ L 135-145 Serum or plasma potassium measurement (moles/volume) 4.8 mmol/L 3.6-5.0 Serum or plasma chloride measurement (moles/volume) 108 mmol /L 98-107 Carbon dioxide 16 mmol/L 21-32 Serum or plasma anion gap determination (moles/volume) 11 mmol/L 5-14 Serum or plasma urea nitrogen measurement (mass/volume) 24 mg/dL 7-18 Serum or plasma creatinine measurement (mass/volume) 2.43 mg /dL 0.60-1.30 Serum or plasma urea nitrogen/creatinine mass ratio 10 NRG Serum or plasma creatinine measurement with calculation of estimated glomerular filtration rate 26 NRG Serum or plasma glucose measurement (mass/volume) 486 mg/dL 70-105 Serum or plasma calcium measurement (mass/volume) 9.5 mg/dL 8.5-10.1 Serum or plasma total bilirubin measurement (mass/volume) 0.6 mg/dL 0.1-1.0 Serum or plasma alkaline phosphatase measurement (enzymatic activity/volume) 64 U/L 40-136 Serum or plasma aspartate aminotransferase measurement (enzymatic activity/ volume) 17 U/L 5-34 Serum or plasma alanine aminotransferase measurement (enzymatic activity/volume ) 20 U/L 0-55 Serum or plasma protein measurement (mass/volume) 7.0 g/dL 6.4-8.2 Serum or plasma albumin measurement (mass/volume) 4.1 g/dL 3.2-4.5 Magnesium - 05/30/16 20:34 Magnesium 1.8 mg/dL 1.8-2.4 Serum or plasma creatine kinase measurement (enzymatic activity/volume) - 05/30 20:34 Serum or plasma creatine kinase measurement (enzymatic activity/volume) 125 U/L 30-200 Serum or plasma creatine kinase MB measurement (enzymatic activity/volume) - 20:34 Serum or plasma creatine kinase MB measurement (enzymatic activity/volume) 3.7 ng/mL <6.6 Serum or plasma troponin i.cardiac measurement (mass/volume) - 05/30/16 20:34 Serum or plasma troponin i.cardiac measurement (mass/volume) < ng/mL <0.30 Serum or plasma amylase measurement (enzymatic activity/volume) - 05/30/16 20: 34 Serum or plasma amylase measurement (enzymatic activity/volume) 100 U/L 25-125 Lipase - 05/30/16 20:34 Lipase 162 U/L 8-78 Serum or plasma lithium measurement (moles/volume) - 05/30/16 20:34 BNP level 26.2 pg/mL <100.0 Arterial blood gas measurement - 05/30/16 21:20 Blood pCO2 34 mm[Hg] 35-45 Blood pO2 79 mm[Hg] 79-93 Arterial blood bicarbonate measurement (moles/volume) 18 mmol/L 23-27 Arterial blood base excess by calculation -6.9 mmol/L -2.5-2.5 Arterial blood oxygen saturation measurement 96 % 94-100 * Inhaled oxygen flow rate ROOM AIR NRG Arterial blood pH measurement with patient temperature correction 7.34 7.37-7.43 Arterial blood carbon dioxide, total measurement (moles/volume) 19.1 mmol/L 21.0-31.0 Body site LT RAD NRG Assessment of wrist artery patency prior to arterial puncture YES-POS NRG Setting of ventilation mode NO NRG Measurement of body temperature 97.8 NRG Capillary blood glucose measurement by glucometer (mass/volume) - 05/30/16 22: 38 Capillary blood glucose measurement by glucometer (mass/volume) 275 mg/dL 70-110 Methicillin resistant Staphylococcus aureus (MRSA) screening culture - 23:05 Methicillin resistant Staphylococcus aureus (MRSA) screening culture NEG NRG Whole blood basic metabolic panel - 05/30/16 23:10 Serum or plasma sodium measurement (moles/volume) 138 mmol/ L 135-145 Serum or plasma potassium measurement (moles/volume) 4.5 mmol/L 3.6-5.0 Serum or plasma chloride measurement (moles/volume) 110 mmol /L 98-107 Carbon dioxide 19 mmol/L 21-32 Serum or plasma anion gap determination (moles/volume) 9 mmol/L 5-14 Serum or plasma urea nitrogen measurement (mass/volume) 24 mg/dL 7-18 Serum or plasma creatinine measurement (mass/volume) 2.05 mg /dL 0.60-1.30 Serum or plasma urea nitrogen/creatinine mass ratio 12 NRG Serum or plasma creatinine measurement with calculation of estimated glomerular filtration rate 32 NRG Serum or plasma glucose measurement (mass/volume) 231 mg/dL 70-105 Serum or plasma calcium measurement (mass/volume) 8.9 mg/dL 8.5-10.1 Capillary blood glucose measurement by glucometer (mass/volume) - 05/31/16 00: 12 Capillary blood glucose measurement by glucometer (mass/volume) 184 mg/dL 70-110 Complete urinalysis with reflex to culture - 05/31/16 00:47 Urine color determination YELLOW NRG Urine clarity determination CLEAR NRG Urine pH measurement by test strip 5 5- 9 Specific gravity of urine by test strip 1.015 1.016-1.022 Urine protein assay by test strip, semi-quantitative NEGATIVE NEGATIVE Urine glucose detection by automated test strip 4+ NEGATIVE Erythrocytes detection in urine sediment by light microscopy NEGATIVE NEGATIVE Urine ketones detection by automated test strip NEGATIVE NEGATIVE Urine nitrite detection by test strip NEGATIVE NEGATIVE Urine total bilirubin detection by test strip NEGATIVE NEGATIVE Urine urobilinogen measurement by automated test strip (mass/volume) NORMAL NORMAL Urine leukocyte esterase detection by dipstick NEGATIVE NEGATIVE Automated urine sediment erythrocyte count by microscopy (number/high power field) NONE NRG Automated urine sediment leukocyte count by microscopy (number/high power field ) NONE NRG Bacteria detection in urine sediment by light microscopy NEGATIVE NRG Squamous epithelial cells detection in urine sediment by light microscopy 2-5 NRG Crystals detection in urine sediment by light microscopy NONE NRG Casts detection in urine sediment by light microscopy PRESENT NRG Mucus detection in urine sediment by light microscopy NEGATIVE NRG Complete urinalysis with reflex to culture NO NRG Hyaline casts detection in urine sediment by light microscopy 5-10 NRG Capillary blood glucose measurement by glucometer (mass/volume) - 05/31/16 01: 13 Capillary blood glucose measurement by glucometer (mass/volume) 170 mg/dL 70-110 Complete blood count (CBC) with automated white blood cell (WBC) differential - 05/31/16 02:18 Blood leukocytes automated count (number/volume) 8.7 10*3/ uL 4.3-11.0 Blood erythrocytes automated count (number/volume) 4.47 10*6 /uL 4.35-5.85 Venous blood hemoglobin measurement (mass/volume) 13.3 g/dL 13.3-17.7 Blood hematocrit (volume fraction) 40 % 40-54 Automated erythrocyte mean corpuscular volume 90 [foz_us] 80-99 Automated erythrocyte mean corpuscular hemoglobin (mass per erythrocyte) 30 pg 25-34 Automated erythrocyte mean corpuscular hemoglobin concentration measurement ( mass/volume) 33 g/dL 32-36 Automated erythrocyte distribution width ratio 13.4 % 10.0-14.5 Automated blood platelet count (count/volume) 217 10*3/uL 130-400 Automated blood platelet mean volume measurement 10.2 [foz_ us] 7.4-10.4 Automated blood neutrophils/100 leukocytes 68 % 42-75 Automated blood lymphocytes/100 leukocytes 21 % 12-44 Blood monocytes/100 leukocytes 9 % 0-12 Automated blood eosinophils/100 leukocytes 2 % 0-10 Automated blood basophils/100 leukocytes 0 % 0-10 Blood neutrophils automated count (number/volume) 5.9 10*3 1.8-7.8 Blood lymphocytes automated count (number/volume) 1.8 10*3 1.0-4.0 Blood monocytes automated count (number/volume) 0.8 10*3 0.0-1.0 Automated eosinophil count 0.2 10*3/uL 0.0-0.3 Automated blood basophil count (count/volume) 0.0 10*3/uL 0.0-0.1 Comprehensive metabolic panel - 05/31/16 02:18 Serum or plasma sodium measurement (moles/volume) 139 mmol/ L 135-145 Serum or plasma potassium measurement (moles/volume) 5.0 mmol/L 3.6-5.0 Serum or plasma chloride measurement (moles/volume) 113 mmol /L 98-107 Carbon dioxide 18 mmol/L 21-32 Serum or plasma anion gap determination (moles/volume) 8 mmol/L 5-14 Serum or plasma urea nitrogen measurement (mass/volume) 22 mg/dL 7-18 Serum or plasma creatinine measurement (mass/volume) 1.97 mg /dL 0.60-1.30 Serum or plasma urea nitrogen/creatinine mass ratio 11 NRG Serum or plasma creatinine measurement with calculation of estimated glomerular filtration rate 33 NRG Serum or plasma glucose measurement (mass/volume) 180 mg/dL 70-105 Serum or plasma calcium measurement (mass/volume) 8.5 mg/dL 8.5-10.1 Serum or plasma total bilirubin measurement (mass/volume) 0.4 mg/dL 0.1-1.0 Serum or plasma alkaline phosphatase measurement (enzymatic activity/volume) 53 U/L 40-136 Serum or plasma aspartate aminotransferase measurement (enzymatic activity/ volume) 15 U/L 5-34 Serum or plasma alanine aminotransferase measurement (enzymatic activity/volume ) 15 U/L 0-55 Serum or plasma protein measurement (mass/volume) 5.8 g/dL 6.4-8.2 Serum or plasma albumin measurement (mass/volume) 3.5 g/dL 3.2-4.5 Serum or plasma phosphate measurement (mass/volume) - 05/31/16 02:18 Serum or plasma phosphate measurement (mass/volume) 2.5 mg/ dL 2.3-4.7 Magnesium - 05/31/16 02:18 Magnesium 1.7 mg/dL 1.8-2.4 Lipid 1996 panel - 05/31/16 02:18 Serum or plasma triglyceride measurement (mass/volume) 126 mg/dL <150 Serum or plasma cholesterol measurement (mass/volume) 103 mg /dL < 200 Serum or plasma cholesterol in HDL measurement (mass/volume) 26 mg/dL 40-60 Cholesterol in LDL [mass/volume] in serum or plasma by direct assay 62 mg/dL 1-129 Serum or plasma cholesterol in VLDL measurement (mass/volume) 25 mg/dL 5-40 Serum or plasma amylase measurement (enzymatic activity/volume) - 05/31/16 02: 18 Serum or plasma amylase measurement (enzymatic activity/volume) 65 U/L 25-125 Lipase - 05/31/16 02:18 Lipase 77 U/L 8-78 Serum or plasma troponin i.cardiac measurement (mass/volume) - 05/31/16 02:18 Serum or plasma troponin i.cardiac measurement (mass/volume) < ng/mL <0.30 Myoglobin, serum - 05/31/16 02:18 Myoglobin, serum 155.6 ng/mL 10.0-92.0 Capillary blood glucose measurement by glucometer (mass/volume) - 05/31/16 02: 19 Capillary blood glucose measurement by glucometer (mass/volume) 157 mg/dL 70-110 Capillary blood glucose measurement by glucometer (mass/volume) - 05/31/16 03: 45 Capillary blood glucose measurement by glucometer (mass/volume) 139 mg/dL 70-110 Capillary blood glucose measurement by glucometer (mass/volume) - 05/31/16 04: 41 Capillary blood glucose measurement by glucometer (mass/volume) 123 mg/dL 70-110 Capillary blood glucose measurement by glucometer (mass/volume) - 05/31/16 06: 24 Capillary blood glucose measurement by glucometer (mass/volume) 124 mg/dL 70-110 Capillary blood glucose measurement by glucometer (mass/volume) - 05/31/16 08: 40 Capillary blood glucose measurement by glucometer (mass/volume) 95 mg/dL 70-110 Capillary blood glucose measurement by glucometer (mass/volume) - 05/31/16 11: 51 Capillary blood glucose measurement by glucometer (mass/volume) 92 mg/dL 70-110 Whole blood basic metabolic panel - 05/31/16 12:34 Serum or plasma sodium measurement (moles/volume) 140 mmol/ L 135-145 Serum or plasma potassium measurement (moles/volume) 5.2 mmol/L 3.6-5.0 Serum or plasma chloride measurement (moles/volume) 113 mmol /L 98-107 Carbon dioxide 20 mmol/L 21-32 Serum or plasma anion gap determination (moles/volume) 7 mmol/L 5-14 Serum or plasma urea nitrogen measurement (mass/volume) 16 mg/dL 7-18 Serum or plasma creatinine measurement (mass/volume) 1.64 mg /dL 0.60-1.30 Serum or plasma urea nitrogen/creatinine mass ratio 10 NRG Serum or plasma creatinine measurement with calculation of estimated glomerular filtration rate 41 NRG Serum or plasma glucose measurement (mass/volume) 104 mg/dL 70-105 Serum or plasma calcium measurement (mass/volume) 8.7 mg/dL 8.5-10.1 Digoxin - 05/31/16 12:34 Digoxin 0.41 ng/mL 0.80-2.00 Capillary blood glucose measurement by glucometer (mass/volume) - 05/31/16 16: 51 Capillary blood glucose measurement by glucometer (mass/volume) 109 mg/dL 70-110 Capillary blood glucose measurement by glucometer (mass/volume) - 05/31/16 20: 41 Capillary blood glucose measurement by glucometer (mass/volume) 140 mg/dL 70-110 Capillary blood glucose measurement by glucometer (mass/volume) - 06/01/16 03: 35 Capillary blood glucose measurement by glucometer (mass/volume) 78 mg/dL 70-110 Capillary blood glucose measurement by glucometer (mass/volume) - 06/01/16 04: 10 Capillary blood glucose measurement by glucometer (mass/volume) 101 mg/dL 70-110 Capillary blood glucose measurement by glucometer (mass/volume) - 06/01/16 06: 00 Capillary blood glucose measurement by glucometer (mass/volume) 191 mg/dL 70-110 Automated blood complete blood count (hemogram) panel - 06/01/16 08:15 Blood leukocytes automated count (number/volume) 6.4 10*3/ uL 4.3-11.0 Blood erythrocytes automated count (number/volume) 4.36 10*6 /uL 4.35-5.85 Venous blood hemoglobin measurement (mass/volume) 13.0 g/dL 13.3-17.7 Blood hematocrit (volume fraction) 39 % 40-54 Automated erythrocyte mean corpuscular volume 90 [foz_us] 80-99 Automated erythrocyte mean corpuscular hemoglobin (mass per erythrocyte) 30 pg 25-34 Automated erythrocyte mean corpuscular hemoglobin concentration measurement ( mass/volume) 33 g/dL 32-36 Automated erythrocyte distribution width ratio 13.4 % 10.0-14.5 Automated blood platelet count (count/volume) 214 10*3/uL 130-400 Automated blood platelet mean volume measurement 10.3 [foz_ us] 7.4-10.4 Whole blood basic metabolic panel - 06/01/16 08:15 Serum or plasma sodium measurement (moles/volume) 141 mmol/ L 135-145 Serum or plasma potassium measurement (moles/volume) 4.3 mmol/L 3.6-5.0 Serum or plasma chloride measurement (moles/volume) 112 mmol /L 98-107 Carbon dioxide 19 mmol/L 21-32 Serum or plasma anion gap determination (moles/volume) 10 mmol/L 5-14 Serum or plasma urea nitrogen measurement (mass/volume) 14 mg/dL 7-18 Serum or plasma creatinine measurement (mass/volume) 1.55 mg /dL 0.60-1.30 Serum or plasma urea nitrogen/creatinine mass ratio 9 NRG Serum or plasma creatinine measurement with calculation of estimated glomerular filtration rate 44 NRG Serum or plasma glucose measurement (mass/volume) 210 mg/dL 70-105 Serum or plasma calcium measurement (mass/volume) 9.3 mg/dL 8.5-10.1 Capillary blood glucose measurement by glucometer (mass/volume) - 06/01/16 11: 17 Capillary blood glucose measurement by glucometer (mass/volume) 171 mg/dL 70-110 Complete urinalysis with reflex to culture - 06/05/16 12:11 Urine color determination YELLOW NRG Urine clarity determination CLEAR NRG Urine pH measurement by test strip 6 5- 9 Specific gravity of urine by test strip 1.010 1.016-1.022 Urine protein assay by test strip, semi-quantitative NEGATIVE NEGATIVE Urine glucose detection by automated test strip 1+ NEGATIVE Erythrocytes detection in urine sediment by light microscopy NEGATIVE NEGATIVE Urine ketones detection by automated test strip NEGATIVE NEGATIVE Urine nitrite detection by test strip NEGATIVE NEGATIVE Urine total bilirubin detection by test strip NEGATIVE NEGATIVE Urine urobilinogen measurement by automated test strip (mass/volume) NORMAL NORMAL Urine leukocyte esterase detection by dipstick NEGATIVE NEGATIVE Automated urine sediment erythrocyte count by microscopy (number/high power field) NONE NRG Automated urine sediment leukocyte count by microscopy (number/high power field ) NONE NRG Bacteria detection in urine sediment by light microscopy NEGATIVE NRG Squamous epithelial cells detection in urine sediment by light microscopy 5-10 NRG Crystals detection in urine sediment by light microscopy NONE NRG Casts detection in urine sediment by light microscopy NONE NRG Mucus detection in urine sediment by light microscopy NEGATIVE NRG Complete urinalysis with reflex to culture NO NRG Complete blood count (CBC) with automated white blood cell (WBC) differential - 06/05/16 12:21 Blood leukocytes automated count (number/volume) 8.9 10*3/ uL 4.3-11.0 Blood erythrocytes automated count (number/volume) 5.20 10*6 /uL 4.35-5.85 Venous blood hemoglobin measurement (mass/volume) 15.5 g/dL 13.3-17.7 Blood hematocrit (volume fraction) 46 % 40-54 Automated erythrocyte mean corpuscular volume 88 [foz_us] 80-99 Automated erythrocyte mean corpuscular hemoglobin (mass per erythrocyte) 30 pg 25-34 Automated erythrocyte mean corpuscular hemoglobin concentration measurement ( mass/volume) 34 g/dL 32-36 Automated erythrocyte distribution width ratio 13.4 % 10.0-14.5 Automated blood platelet count (count/volume) 279 10*3/uL 130-400 Automated blood platelet mean volume measurement 10.1 [foz_ us] 7.4-10.4 Automated blood neutrophils/100 leukocytes 65 % 42-75 Automated blood lymphocytes/100 leukocytes 23 % 12-44 Blood monocytes/100 leukocytes 8 % 0-12 Automated blood eosinophils/100 leukocytes 3 % 0-10 Automated blood basophils/100 leukocytes 0 % 0-10 Blood neutrophils automated count (number/volume) 5.8 10*3 1.8-7.8 Blood lymphocytes automated count (number/volume) 2.1 10*3 1.0-4.0 Blood monocytes automated count (number/volume) 0.7 10*3 0.0-1.0 Automated eosinophil count 0.3 10*3/uL 0.0-0.3 Automated blood basophil count (count/volume) 0.0 10*3/uL 0.0-0.1 Whole blood basic metabolic panel - 06/05/16 12:21 Serum or plasma sodium measurement (moles/volume) 133 mmol/ L 135-145 Serum or plasma potassium measurement (moles/volume) 4.3 mmol/L 3.6-5.0 Serum or plasma chloride measurement (moles/volume) 103 mmol /L 98-107 Carbon dioxide 21 mmol/L 21-32 Serum or plasma anion gap determination (moles/volume) 9 mmol/L 5-14 Serum or plasma urea nitrogen measurement (mass/volume) 16 mg/dL 7-18 Serum or plasma creatinine measurement (mass/volume) 1.59 mg /dL 0.60-1.30 Serum or plasma urea nitrogen/creatinine mass ratio 10 NRG Serum or plasma creatinine measurement with calculation of estimated glomerular filtration rate 43 NRG Serum or plasma glucose measurement (mass/volume) 204 mg/dL 70-105 Serum or plasma calcium measurement (mass/volume) 10.2 mg/ dL 8.5-10.1 Complete blood count (CBC) with automated white blood cell (WBC) differential - 07/02/16 00:10 Blood leukocytes automated count (number/volume) 7.9 10*3/ uL 4.3-11.0 Blood erythrocytes automated count (number/volume) 4.49 10*6 /uL 4.35-5.85 Venous blood hemoglobin measurement (mass/volume) 13.1 g/dL 13.3-17.7 Blood hematocrit (volume fraction) 39 % 40-54 Automated erythrocyte mean corpuscular volume 87 [foz_us] 80-99 Automated erythrocyte mean corpuscular hemoglobin (mass per erythrocyte) 29 pg 25-34 Automated erythrocyte mean corpuscular hemoglobin concentration measurement ( mass/volume) 34 g/dL 32-36 Automated erythrocyte distribution width ratio 13.3 % 10.0-14.5 Automated blood platelet count (count/volume) 226 10*3/uL 130-400 Automated blood platelet mean volume measurement 11.0 [foz_ us] 7.4-10.4 Automated blood neutrophils/100 leukocytes 57 % 42-75 Automated blood lymphocytes/100 leukocytes 29 % 12-44 Blood monocytes/100 leukocytes 9 % 0-12 Automated blood eosinophils/100 leukocytes 5 % 0-10 Automated blood basophils/100 leukocytes 1 % 0-10 Blood neutrophils automated count (number/volume) 4.5 10*3 1.8-7.8 Blood lymphocytes automated count (number/volume) 2.3 10*3 1.0-4.0 Blood monocytes automated count (number/volume) 0.7 10*3 0.0-1.0 Automated eosinophil count 0.4 10*3/uL 0.0-0.3 Automated blood basophil count (count/volume) 0.0 10*3/uL 0.0-0.1 Comprehensive metabolic panel - 07/02/16 00:10 Serum or plasma sodium measurement (moles/volume) 138 mmol/ L 135-145 Serum or plasma potassium measurement (moles/volume) 4.0 mmol/L 3.6-5.0 Serum or plasma chloride measurement (moles/volume) 106 mmol /L 98-107 Carbon dioxide 21 mmol/L 21-32 Serum or plasma anion gap determination (moles/volume) 11 mmol/L 5-14 Serum or plasma urea nitrogen measurement (mass/volume) 21 mg/dL 7-18 Serum or plasma creatinine measurement (mass/volume) 2.05 mg /dL 0.60-1.30 Serum or plasma urea nitrogen/creatinine mass ratio 10 NRG Serum or plasma creatinine measurement with calculation of estimated glomerular filtration rate 32 NRG Serum or plasma glucose measurement (mass/volume) 357 mg/dL 70-105 Serum or plasma calcium measurement (mass/volume) 9.6 mg/dL 8.5-10.1 Serum or plasma total bilirubin measurement (mass/volume) 0.3 mg/dL 0.1-1.0 Serum or plasma alkaline phosphatase measurement (enzymatic activity/volume) 60 U/L 40-136 Serum or plasma aspartate aminotransferase measurement (enzymatic activity/ volume) 18 U/L 5-34 Serum or plasma alanine aminotransferase measurement (enzymatic activity/volume ) 19 U/L 0-55 Serum or plasma protein measurement (mass/volume) 6.7 g/dL 6.4-8.2 Serum or plasma albumin measurement (mass/volume) 3.9 g/dL 3.2-4.5 Serum or plasma troponin i.cardiac measurement (mass/volume) - 07/02/16 00:10 Serum or plasma troponin i.cardiac measurement (mass/volume) < ng/mL <0.30 Digoxin - 07/02/16 00:10 Digoxin 0.62 ng/mL 0.80-2.00 Capillary blood glucose measurement by glucometer (mass/volume) - 07/02/16 01: 19 Capillary blood glucose measurement by glucometer (mass/volume) 297 mg/dL 70-110 Complete urinalysis with reflex to culture - 07/02/16 01:55 Urine color determination YELLOW NRG Urine clarity determination CLEAR NRG Urine pH measurement by test strip 5 5- 9 Specific gravity of urine by test strip 1.015 1.016-1.022 Urine protein assay by test strip, semi-quantitative 1+ NEGATIVE Urine glucose detection by automated test strip 4+ NEGATIVE Erythrocytes detection in urine sediment by light microscopy NEGATIVE NEGATIVE Urine ketones detection by automated test strip NEGATIVE NEGATIVE Urine nitrite detection by test strip NEGATIVE NEGATIVE Urine total bilirubin detection by test strip NEGATIVE NEGATIVE Urine urobilinogen measurement by automated test strip (mass/volume) NORMAL NORMAL Urine leukocyte esterase detection by dipstick NEGATIVE NEGATIVE Automated urine sediment erythrocyte count by microscopy (number/high power field) RARE NRG Automated urine sediment leukocyte count by microscopy (number/high power field ) [HPF] NRG Bacteria detection in urine sediment by light microscopy TRACE NRG Squamous epithelial cells detection in urine sediment by light microscopy RARE NRG Crystals detection in urine sediment by light microscopy PRESENT NRG Casts detection in urine sediment by light microscopy PRESENT NRG Mucus detection in urine sediment by light microscopy SMALL NRG Complete urinalysis with reflex to culture NO NRG Amorphous sediment detection in urine sediment by light microscopy FEW DEYVI URATES NRG Hyaline casts detection in urine sediment by light microscopy 0-2 NRG Granular casts detection in urine sediment by light microscopy 2-5 NRG Complete urinalysis with reflex to culture - 07/23/16 19:00 Urine color determination YELLOW NRG Urine clarity determination CLEAR NRG Urine pH measurement by test strip 6 5- 9 Specific gravity of urine by test strip 1.020 1.016-1.022 Urine protein assay by test strip, semi-quantitative 2+ NEGATIVE Urine glucose detection by automated test strip 4+ NEGATIVE Erythrocytes detection in urine sediment by light microscopy NEGATIVE NEGATIVE Urine ketones detection by automated test strip NEGATIVE NEGATIVE Urine nitrite detection by test strip NEGATIVE NEGATIVE Urine total bilirubin detection by test strip NEGATIVE NEGATIVE Urine urobilinogen measurement by automated test strip (mass/volume) NORMAL NORMAL Urine leukocyte esterase detection by dipstick NEGATIVE NEGATIVE Automated urine sediment erythrocyte count by microscopy (number/high power field) NONE NRG Automated urine sediment leukocyte count by microscopy (number/high power field ) [HPF] NRG Bacteria detection in urine sediment by light microscopy NEGATIVE NRG Squamous epithelial cells detection in urine sediment by light microscopy 2-5 NRG Crystals detection in urine sediment by light microscopy NONE NRG Casts detection in urine sediment by light microscopy NONE NRG Mucus detection in urine sediment by light microscopy NEGATIVE NRG Complete urinalysis with reflex to culture NO NRG Complete blood count (CBC) with automated white blood cell (WBC) differential - 07/23/16 19:00 Blood leukocytes automated count (number/volume) 8.1 10*3/ uL 4.3-11.0 Blood erythrocytes automated count (number/volume) 4.93 10*6 /uL 4.35-5.85 Venous blood hemoglobin measurement (mass/volume) 14.4 g/dL 13.3-17.7 Blood hematocrit (volume fraction) 42 % 40-54 Automated erythrocyte mean corpuscular volume 86 [foz_us] 80-99 Automated erythrocyte mean corpuscular hemoglobin (mass per erythrocyte) 29 pg 25-34 Automated erythrocyte mean corpuscular hemoglobin concentration measurement ( mass/volume) 34 g/dL 32-36 Automated erythrocyte distribution width ratio 13.8 % 10.0-14.5 Automated blood platelet count (count/volume) 249 10*3/uL 130-400 Automated blood platelet mean volume measurement 10.6 [foz_ us] 7.4-10.4 Automated blood neutrophils/100 leukocytes 70 % 42-75 Automated blood lymphocytes/100 leukocytes 22 % 12-44 Blood monocytes/100 leukocytes 6 % 0-12 Automated blood eosinophils/100 leukocytes 2 % 0-10 Automated blood basophils/100 leukocytes 1 % 0-10 Blood neutrophils automated count (number/volume) 5.6 10*3 1.8-7.8 Blood lymphocytes automated count (number/volume) 1.8 10*3 1.0-4.0 Blood monocytes automated count (number/volume) 0.5 10*3 0.0-1.0 Automated eosinophil count 0.2 10*3/uL 0.0-0.3 Automated blood basophil count (count/volume) 0.0 10*3/uL 0.0-0.1 Comprehensive metabolic panel - 07/23/16 19:00 Serum or plasma sodium measurement (moles/volume) 136 mmol/ L 135-145 Serum or plasma potassium measurement (moles/volume) 4.9 mmol/L 3.6-5.0 Serum or plasma chloride measurement (moles/volume) 103 mmol /L 98-107 Carbon dioxide 20 mmol/L 21-32 Serum or plasma anion gap determination (moles/volume) 13 mmol/L 5-14 Serum or plasma urea nitrogen measurement (mass/volume) 22 mg/dL 7-18 Serum or plasma creatinine measurement (mass/volume) 2.29 mg /dL 0.60-1.30 Serum or plasma urea nitrogen/creatinine mass ratio 10 NRG Serum or plasma creatinine measurement with calculation of estimated glomerular filtration rate 28 NRG Serum or plasma glucose measurement (mass/volume) 379 mg/dL 70-105 Serum or plasma calcium measurement (mass/volume) 9.8 mg/dL 8.5-10.1 Serum or plasma total bilirubin measurement (mass/volume) 0.5 mg/dL 0.1-1.0 Serum or plasma alkaline phosphatase measurement (enzymatic activity/volume) 64 U/L 40-136 Serum or plasma aspartate aminotransferase measurement (enzymatic activity/ volume) 26 U/L 5-34 Serum or plasma alanine aminotransferase measurement (enzymatic activity/volume ) 27 U/L 0-55 Serum or plasma protein measurement (mass/volume) 7.4 g/dL 6.4-8.2 Serum or plasma albumin measurement (mass/volume) 4.3 g/dL 3.2-4.5 Encounters ACCT No. Visit Date/Time Discharge Status Pt. Type Provider Facility Loc./Unit Complaint [id number] 08/09/2016 04:34:00 2016 06:11:00 DIS Outpatient EUGENE DO, ROMAIN K [facility] ER FELL OUT OF CHAIR,NECK PAIN [id number] 07/23/2016 18:30:00 2016 20:07:00 DIS Emergency TRELL STARKEY MD [facility] ER LOW BP [id number] 07/01/2016 23:36:00 2016 02:32:00 DIS Emergency KHUSHBOO DOUGHERTY, RODOLFO Mendieta [facility] ER HIGH BP DIZZY [id number] 06/20/2016 14:43:00 2016 16:45:00 DIS Emergency JENN CARBAJAL [facility] ER LEFT ARM LAC [id number] 06/05/2016 11:41:00 2016 13:24:00 DIS Emergency LEONARDO SALGADO APRN [facility] ER RIGHT SIDE PAIN/UNABLE TO URINATE [id number] 05/30/2016 21:15:00 2016 12:30:00 DIS Inpatient LLUVIA ROUSE DO [facility] 4TH CHEST PAIN, DEHYDRATION W/ ACUTE ON CHRONIC RENAL [id number] 03/21/2016 19:47:00 2015 13:45:00 DIS Inpatient MICHAELLLUVIA ESTES DO [facility] ICU A-FLUTTER RVR [id number] 03/09/2016 16:19:00 2015 18:19:00 DIS Emergency CHARO SCHNEIDER MD [facility] ER SOA [id number] 03/04/2016 20:52:00 2015 23:05:00 DIS Emergency KHUSHBOO DOUGHERTY, RODOLFO Mendieta [facility] ER STOMACH PAIN [id number] 03/01/2016 07:22:00 2015 09:45:00 DIS Outpatient JOSE DOUGHERTY, BISI Colon [facility] CATH CP,DYSPNEA,CAD,PVD,CLAUDICATION [id number] 11/08/2015 20:08:00 2015 21:08:00 DIS Emergency JUSTINE TABARES DO [facility] ER ELEVATED BLOOD SUGAR [id number] 09/24/2015 18:07:00 2015 21:00:00 DIS Emergency CHARO SCHNEIDER MD [facility] ER DIZZINESS [id number] 09/08/2015 07:00:00 2015 09:05:00 DIS Outpatient LEN SCHERER MD [facility] SDC DYSPHAGIA, GERD, UPPER GASTRIC PAIN [id number] 09/02/2015 18:42:00 2015 19:17:00 DIS Emergency CHARO SCHNEIDER MD [facility] ER STOMACH PROBLEMS [id number] 07/30/2015 23:18:00 2015 23:52:00 DIS Emergency CHARO SCHNEIDER MD [facility] ER ABD PAIN,GASSY [id number] 06/30/2015 10:52:00 2015 12:37:00 DIS Emergency CHARO SCHNEIDER MD [facility] ER CHEST PAIN [id number] 04/02/2015 17:35:00 2014 20:18:00 DIS Emergency JENN CARBAJAL [facility] ER ABD PAIN [id number] 01/12/2015 11:08:00 2014 13:03:00 DIS Emergency CHARO SCHNEIDER MD [facility] ER ELEVATED BP, NAUSEA [id number] 01/08/2015 18:17:00 2014 21:39:00 DIS Emergency LEONARDO SALGADO APRN [facility] ER FELL [id number] 01/01/2015 14:49:00 2014 23:59:59 CLS Outpatient ELENI VILLEDA DO F [facility] RAD DJD,PAIN [id number] 12/25/2014 07:00:00 2014 07:00:00 CAN Preadmit LEN SCHERER MD [facility] CARD [id number] 12/21/2014 05:48:00 2014 14:35:00 DIS Inpatient LLUVIA ROUSE DO [facility] CSD SMALL BOWEL OBSTRUCTION, CP [id number] 12/14/2014 16:14:00 2014 16:37:00 DIS Emergency TRELL STARKEY MD [facility] ER ABD PAIN [id number] 06/11/2014 12:17:00 2014 23:59:59 CLS Outpatient ELENI VILLEDA DO [facility] RAD RT KNEE DJD [id number] 05/13/2014 12:35:00 2013 15:13:00 DIS Emergency JENN CARBAJAL [facility] ER RIGHT KNEE PAIN [id number] 03/19/2014 07:28:00 2013 15:03:00 DIS Outpatient DMITRY MEZA MD [facility] CATH PAD,CAD,DIABETES,HTN [id number] 03/12/2014 15:08:00 2013 23:59:59 CLS Outpatient LLUVIA ROUSE DO [facility] LAB ABD PAIN ONSET ONE WEEK AGO [id number] 02/26/2014 06:52:00 2013 14:02:00 DIS Outpatient DMITRY MEZA MD [facility] CATH PAD,CAD,DIABETES,HTN [id number] 11/24/2013 10:07:00 2013 13:20:00 DIS Outpatient LEN SCHERER MD [facility] SDC HISTORY OF POLYPS [id number] 11/19/2013 07:30:00 2013 23:59:59 CLS Outpatient LEN SCHERER MD [facility] PREOP HISTORY OF POLYPS [id number] 11/03/2013 07:17:00 2013 08:45:00 DIS Inpatient PARIS DOUGHERTY, SONIA Joseph [facility] 4TH ILEUS ATYPICAL CHEST PAIN N/V PANCREATITIS [id number] 09/28/2013 17:25:00 2013 19:05:00 DIS Emergency JENN CARBAJAL [facility] ER RIGHT ELBOW PAIN [id number] 09/22/2013 12:53:00 2013 23:59:59 CLS Outpatient BISI GARCIA MD [facility] CARD CAD [id number] 09/14/2013 16:46:00 2013 20:10:00 DIS Emergency JENN CARBAJAL [facility] ER ABD PAIN [id number] 09/13/2013 19:21:00 2013 20:35:00 DIS Emergency TRELL STARKEY MD [facility] ER CHEST PAIN [id number] 08/12/2013 11:35:00 2013 16:15:00 DIS Outpatient ELENI VILLEDA DO [facility] OLECRANON SURSITIS AND SPUR RIGHT ELBOW [id number] 08/05/2013 10:06:00 2013 23:59:59 CLS Outpatient ELENI VILLEDA DO [facility] PREOP OLECRANON SURSITIS AND SPUR RIGHT ELBOW [id number] 07/19/2013 13:03:00 2013 16:03:00 DIS Emergency JENN CARBAJAL [facility] ER ABD PAIN [id number] 04/23/2013 08:19:00 2012 13:25:00 DIS Outpatient SARAH CALLAWAY MD [facility] DYSPHAGIA [id number] 04/17/2013 07:26:00 2012 23:59:59 CLS Outpatient SARAH CALLAWAY MD [facility] PREOP DYSPHAGIA [id number] 12/24/2012 12:05:00 2012 17:25:00 DIS Outpatient ELENI VILLEDA DO [facility] RIGHT TORN ROTATOR CUFF [id number] 12/18/2012 11:40:00 2012 23:59:59 CLS Outpatient ELENI VILLEDA DO [facility] PREOP RIGHT TORN ROTATOR CUFF [id number] 10/29/2012 10:02:00 2012 23:59:59 CLS Outpatient ELENI VILLEDA DO [facility] RAD RT SHOULDER IMPINGMENT SYNDROME [id number] 10/26/2012 20:46:00 2012 22:12:00 DIS Emergency JAKY DOUGHERTY, TRELL Bernal [facility] ER INDIGESTION [id number] 03/06/2016 15:48:00 ACT Outpatient LLUVIA ROUSE DO [facility] RAD ABD DIST [id number] 11/29/2015 15:30:00 ACT Outpatient LLUVIA ROUSE DO [facility] RAD BACK PAIN 1 MONTH [id number] 09/14/2015 09:09:00 ACT Outpatient LEN SCHERER MD [facility] CARD GASTROPARESIS [id number] 09/07/2015 05:43:00 ACT Outpatient LEN SCHERER MD [facility] PREOP DYSPHAGIA, GERD, UPPER GASTRIC PAIN [id number] 08/14/2015 11:24:00 Document Registration [id number] 06/24/2015 12:53:00 ACT Outpatient JOSE DOUGHERTY, BISI Colon [facility] CARD CAD,GABI,HTN,HLP [id number] 12/21/2014 10:21:00 Document Registration [id number] 07/17/2014 10:49:00 Document Registration [id number] 04/16/2012 21:07:00 Document Registration [id number] 03/18/2012 06:44:00 Document Registration [id number] 03/14/2012 10:29:00 Document Registration [id number] 01/30/2012 06:19:00 Document Registration [id number] 01/29/2012 07:52:00 Document Registration [id number] 12/18/2011 05:25:00 Document Registration [id number] 11/29/2011 12:48:00 Document Registration [id number] 06/22/2011 10:47:00 Document Registration [id number] 06/03/2011 21:22:00 Document Registration [id number] 04/17/2011 11:44:00 Document Registration [id number] 03/14/2011 16:51:00 Document Registration [id number] 12/12/2010 14:47:00 Document Registration [id number] 11/12/2010 03:05:00 Document Registration [id number] 10/19/2010 13:21:00 Document Registration [id number] 08/26/2010 11:59:00 Document Registration [id number] 05/30/2010 12:31:00 Document Registration [id number] 05/27/2010 22:21:00 Document Registration [id number] 04/25/2010 05:48:00 Document Registration [id number] 03/08/2010 14:10:00 Document Registration [id number] 02/18/2010 07:02:00 Document Registration [id number] 02/16/2010 22:09:00 Document Registration
[2016-09-22] MEDS ORDERED: FLUT16SP22 NS (10:13)
[2016-09-22] MEDS ORDERED: ENAL5TAB PO (10:13)
[2016-09-22] MEDS ORDERED: DRON400T2 PO (10:13)
[2016-09-22] MEDS ORDERED: METO-333 PO (10:13)
== END 2016-08-09 06:11 | disposition home or self-care (01) ==
LOC: EDUNIT# 04:32 → ER 04:34
DX: M47.812 Spondylosis without myelopathy or radiculopathy, cervical region (principal); M47.814 Spondylosis without myelopathy or radiculopathy, thoracic region; G89.29 Other chronic pain; M43.22 Fusion of spine, cervical region; E04.1 Nontoxic single thyroid nodule; E11.9 Type 2 diabetes mellitus without complications; I10 Essential (primary) hypertension; I25.10 Atherosclerotic heart disease of native coronary artery without angina pectoris; I48.2 Chronic atrial fibrillation; F17.210 Nicotine dependence, cigarettes, uncomplicated; Z79.01 Long term (current) use of anticoagulants; Z79.82 Long term (current) use of aspirin; Z79.899 Other long term (current) drug therapy; Z95.5 Presence of coronary angioplasty implant and graft
CPT/HCPCS: 70450; 72125; 72128; 72131; 96372; 99285

== ENCOUNTER → 2016-08-29 | Outpatient (CLI) | payer MEDICARE, MEDICAID ==
[~2016-08-29] MED LIST changes: +CEPH-507 PO; +DRON400T2 PO; +FLUT16SP22 NS; +METH4TAB PO; +PRED5DRO17
--- NOTE | 2016-08-29 15:16 | Diagnostic Imaging Report ---
PROCEDURE: CT abdomen and pelvis without contrast. TECHNIQUE: Multiple contiguous axial images were obtained through the abdomen and pelvis without the use of intravenous contrast. INDICATION: Right flank pain. FINDINGS: The lung bases appear clear. The kidneys, ureters and bladder demonstrates no stones. There is no hydronephrosis. The urinary bladder however is moderately distended with mild diffuse wall thickening. This could be secondary to chronic obstructive changes from the prostate which is significantly enlarged with median lobe projecting into the base of the bladder. Transverse dimension of the prostate is 5.6 cm and demonstrates asymmetric calcifications prominent along the right posterolateral aspect. There is numerous diverticulosis within the sigmoid colon. No diverticulitis. There is moderate to large amounts of fecal material seen in the colon. The appendix is normal. No significant free fluid or fluid collection in the abdomen or pelvis is seen. The abdominal aorta demonstrates mild ectasia distally measuring 2.6 cm in caliber. There is mild ectasia of the common iliac arteries also bilaterally with prominent calcified atherosclerotic plaque. No para-aortic significantly enlarged lymph node is seen. The liver, spleen and adrenals appear unremarkable. There is mild stranding seen adjacent to the pancreas. Correlate for possible mild pancreatitis. No significant pseudocyst, free fluid or fluid collections however are seen. Alternatively, and perhaps more likely, inflammation from the adjacent duodenum and distal stomach potentially related to peptic ulcer disease could be the underlying abnormality. There is no free air seen. Also, a duodenal diverticulum appears to be present from the first portion of the duodenum that appears slightly thickened and could be involved in the inflammation. The osseous structures demonstrate prominent degenerative changes. IMPRESSION: 1. Inflammatory changes seen around the proximal duodenum and suggestion of a small duodenal diverticulum from the first part of the duodenum seen suggestive of duodenitis, such as peptic ulcer disease with no donte perforation. No abscess. The inflammation is also abutting the proximal aspects of the pancreas. Correlate with pancreatic enzymes to rule out pancreatitis. 2. Moderate to large amounts of fecal material in the colon. No bowel obstruction. 3. Mild dilatation of the urinary bladder with wall thickening probably related to obstructive changes from the enlarged prostate. Dr. Ward was called and informed about the findings at time of dictation. Dictated by: Dictated on workstation # [id number]
== END ==
LOC: RAD 12:45
PROVIDERS: ATTEND Family Medicine
DX: R10.9 Unspecified abdominal pain (principal)
CPT/HCPCS: 74176

== ENCOUNTER → 2016-08-30 | Outpatient (CLI) | payer MEDICARE, MEDICAID ==
[2016-08-30 16:43] LABS: AMYLASE 77 U/L (25-125); LIPASE 110 U/L (8-78)
== END ==
LOC: LAB 16:01
PROVIDERS: ATTEND Family Medicine
DX: K85.90 Acute pancreatitis without necrosis or infection, unspecified (principal); K29.80 Duodenitis without bleeding
CPT/HCPCS: 36415; 82150; 83690

== ENCOUNTER 2016-09-05 16:02 | Emergency (ER) | payer MEDICARE, MEDICAID ==
[~2016-09-05] VITALS: Ht 182.9 cm; Wt 86.6 kg
[~2016-09-05 16:02] MED LIST changes: -CEPH-507 PO; -DRON400T2 PO; -FLUT16SP22 NS
--- NOTE | 2016-09-05 16:37 | ED Cardiac General ---
History of Present Illness General Chief Complaint: Cardiac/General Problems Stated Complaint: LOW BP Nursing Triage Note: patient reports checking his BP and it was low. patient then began to feel dizzy Source: patient, RN notes reviewed Exam Limitations: no limitations History of Present Illness Time seen by provider: 16:30 Initial Comments As above and below. 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 Associated Systoms: Other (dizzy) Allergies and Home Medications Allergies Coded Allergies: celecoxib (Unverified Allergy, Mild, TAKES ASPIRIN AT HOME, 12/21/14) diclofenac (Unverified Allergy, Mild, TAKES ASPIRIN AT HOME, 12/21/14) naproxen (Unverified Allergy, Mild, TAKES ASPIRIN AT HOME, 12/21/14) rosuvastatin (Unverified Allergy, Mild, 08/14/08) Penicillins (Verified Allergy, Unknown, 08/03/05) amoxicillin (Verified Allergy, Unknown, 08/03/05) fenofibrate (Unverified Allergy, Unknown, 06/05/16) morphine (Verified Allergy, Unknown, TAKES HYDROCODONE AT HOME, 07/17/14) simvastatin (Unverified Allergy, Unknown, 06/05/16) Uncoded Allergies: GEMIFIBOROZIL (Allergy, Unknown, 06/05/16) Home Medications Apixaban 5 Mg Tablet, 1 TAB PO BID, #60 (Reported) Aspirin 81 Mg Tablet.dr, 81 MG PO DAILY, (Reported) Baclofen 10 Mg Tablet, 1 TAB PO UD, #270 (Reported) Cephalexin 500 Mg Capsule, 1,000 MG PO BID, #40 Ref 0 Prescribed by: JUSTINE TABARES on 09/05/16 1800 Cilostazol 100 Mg Tablet, 1 TAB PO UD, #60 (Reported) Digoxin 125 Mcg Tablet, 125 MCG PO DAILY, (Reported) Enalapril Maleate 10 Mg Tablet, 10 MG PO BID, (Reported) Fenofibrate,Micronized 134 Mg Capsule, 134 MG PO UD, (Reported) Gabapentin 300 Mg Capsule, 600 MG PO HS, (Reported) TAKES 2 (300 MG) CAPSULES Glipizide 10 Mg Tablet, 10 MG PO DAILY, (Reported) Insulin Detemir 100 Unit/1 Ml Insuln.pen, 43 UNIT SQ HS, (Reported) Loratadine 10 Mg Tablet, 10 MG PO DAILY, (Reported) Methylprednisolone 4 Mg Tab.ds.pk, 4 MG PO UD, #1 Prescribed by: ROMAIN KNIGHT on 08/09/16 0603 Metoprolol Tartrate 25 Mg Tablet, 12.5 MG PO DAILY, (Reported) TAKES 1/2 OF A (25 MG) Montelukast Sodium 10 Mg Tablet, 10 MG PO DAILY, (Reported) Nitroglycerin 0.4 Mg Tab.subl, 0.4 MG SL UD PRN for CHEST PAIN, (Reported) [place]-3/Dha/Epa/Fish Oil 1,000 Mg Capsule, 1,000 MG PO BID, (Reported) Pantoprazole Sodium 40 Mg Tablet.dr, 1 TAB PC UD, #90 (Reported) Pentoxifylline 400 Mg Tablet.er, 400 MG PO TID, (Reported) Pravastatin Sodium 80 Mg Tablet, #90 (Reported) Prednisolone Acetate 5 Ml Drops.susp, #10 (Reported) Sitagliptin Phosphate 100 Mg Tablet, 1 TAB PO UD, #90 (Reported) Tamsulosin HCl 0.4 Mg Cap.er.24h, 1 TAB PO UD, #90 (Reported) Trazodone HCl 50 Mg Tablet, 50 MG PO HS, (Reported) Umeclidinium Brm/Vilanterol Tr 1 Each Blst.w.dev, 1 PUFF IH DAILY, (Reported) Review of Systems Constitutional: see HPI, dizziness All Other Systems Reviewed Negative Unless Noted: Yes (Negative excepted noted.) Past Jdlkdnk-Xxpexv-Rhyepg Hx Patient Social History Alcohol Use: Denies Use Recreational Drug Use: No Smoking Status: Former Smoker Type Used: Cigarettes Former Smoker/When Quit: May 31, 1999 2nd Hand Smoke Exposure: Yes Recent Foreign Travel: No Contact w/Someone Who Travel: No Recent Infectious Disease Expo: No Recent Hopitalizations: No Immunizations Up To Date Tetanus Booster (TDap): Less than 5yrs PED Vaccines UTD: No Date of Pneumonia Vaccine: Jun 14, 2015 Date of Influenza Vaccine: Feb 12, 2016 Seasonal Allergies Seasonal Allergies: Yes Surgeries HX Surgeries: Yes Surgeries: Abdominal, Cardiac, CABG, Coronary Stent, Eye Surgery, Gallbladder, Joint Replacement, Open Heart Surgery, Orthopedic, Vascular Surgery Respiratory Hx Respiratory Disorders: Yes (CHRONIC DYSPNEA ON EXERTION) Respiratory Disorders: Sleep Apnea, COPD Cardiovascular Hx Cardiac Disorders: Yes Cardiac Disorders: Atrial Fibrillation, Coronary Artery Disease, Heart Attack, High Cholesterol, Hypertension, Peripheral Vascular Neurological Hx Neurological Disorders: Yes (POSSIBLE STROKE/ TIA) Neurological Disorders: Stroke, TIA Reproductive System Hx Reproductive Disorders: No Sexually Transmitted Disease: No HIV/AIDS: No Genitourinary Hx Genitourinary Disorders: Yes (RENAL INSUFFICIENCY) Genitourinary Disorders: Benign Prostatic Hyperpl, Prostate Problems, Renal Failure Gastrointestinal Hx Gastrointestinal Disorders: Yes (GASTROPARESIS; GASTRITIS; DUODENITIS; COLON POLYPECTOMY) Gastrointestinal Disorders: Gastroesophageal Reflux, Pancreatitis, Polyps Musculoskeletal Hx Musculoskeletal Disorders: Yes (OLECRANON BURSITIS, CHRONIC NECK PAIN, DISH SYNDROME) Musculoskeletal Disorders: Degenerate Disk Disease, Arthritis, Chronic Back Pain Endocrine Hx Endocrine Disorders: Yes Endocrine Disorders: Diabetes, Insulin dep HEENT HX ENT Disorders: Yes (SINUS PROBLEMS) HEENT Disorders: Cataract Loss of Vision: Denies Hearing Impairment: Denies Cancer Hx Cancer: No Psychosocial Hx Psychiatric Problems: Yes Behavioral Health Disorders: Anxiety Integumentary HX Skin/Integumentary Disorder: No Blood Transfusions Hx Blood Disorders: No Adverse Reaction to a Blood Tr: No Family Medical History Significant Family History: No Pertinent Family Hx Family Medial History: Cancer G8 BROTHER Cataract 19 FATHER 19 MOTHER G8 BROTHER G8 BROTHER G8 SISTER Congestive heart failure 19 FATHER 19 MOTHER Family history: Arthritis 19 FATHER 19 MOTHER G8 BROTHER G8 BROTHER G8 SISTER G8 SISTER DAUGHTER SON Family history: Breast disease DAUGHTER Family history: Cardiovascular disease 19 FATHER Family history: Diabetes mellitus 19 FATHER G8 BROTHER G8 SISTER Family history: Hypertension 19 FATHER 19 MOTHER G8 BROTHER G8 BROTHER G8 SISTER G8 SISTER DAUGHTER SON Family history: Thyroid disorder DAUGHTER Heart disease 19 FATHER 19 MOTHER G8 BROTHER Hypercholesterolemia 19 FATHER 19 MOTHER G8 BROTHER G8 BROTHER G8 SISTER Myocardial infarction 19 FATHER 19 MOTHER G8 BROTHER No Family History of: Abdominal aortic aneurysm Robel's disease Alcoholism Aphasia Cancer of colon Chest pain Congenital heart disease Cystic fibrosis Dementia Dysphagia Family history: Allergy Family history: Alzheimer's disease Family history: Asthma Family history: Coronary thrombosis Family history: Gastrointestinal disease Family history: Glaucoma Family history: Osteoporosis Headache Hearing loss Hereditary disease History of - anemia History of - disorder History of - respiratory disease History of drug abuse Human immunodeficiency virus (HIV) seropositivity Infertile Kidney disease Malignant neoplasm of lung Parkinson's disease Prostate cancer Psychotic disorder Seizure disorder Stroke Tuberculosis Visual impairment Physical Exam Vital Signs Capillary Refill : Less Than 3 Seconds General Appearance: No Apparent Distress, WD/WN HEENT: Normal ENT Inspection Neck: Normal Inspection Respiratory: No Respiratory Distress Cardiovascular: Regular Rate, Rhythm Rectal: Deferred Neurologic/Psychiatric: Alert, Oriented x3, No Motor/Sensory Deficits Skin: Warm/Dry Progress/Results/Core Measures Results/Orders Lab Results Laboratory Tests Test 09/05/16 16:55 09/05/16 17:50 Range/Units White Blood Count 7.8 4.3-11.0 10^3/uL Red Blood Count 4.32 L 4.35-5.85 10^6/uL Hemoglobin 12.7 L 13.3-17.7 G/DL Hematocrit 38 L 40-54 % Mean Corpuscular Volume 88 80-99 FL Mean Corpuscular Hemoglobin 29 25-34 PG Mean Corpuscular Hemoglobin Concent 33 32-36 G/DL Red Cell Distribution Width 14.6 H 10.0-14.5 % Platelet Count 253 130-400 10^3/uL Mean Platelet Volume 10.0 7.4-10.4 FL Neutrophils (%) (Auto) 66 42-75 % Lymphocytes (%) (Auto) 24 12-44 % Monocytes (%) (Auto) 8 0-12 % Eosinophils (%) (Auto) 2 0-10 % Basophils (%) (Auto) 1 0-10 % Neutrophils # (Auto) 5.2 1.8-7.8 X 10^3 Lymphocytes # (Auto) 1.8 1.0-4.0 X 10^3 Monocytes # (Auto) 0.6 0.0-1.0 X 10^3 Eosinophils # (Auto) 0.2 0.0-0.3 10^3/uL Basophils # (Auto) 0.0 0.0-0.1 10^3/uL Sodium Level 137 135-145 MMOL/L Potassium Level 4.2 3.6-5.0 MMOL/L Chloride Level 105 98-107 MMOL/L Carbon Dioxide Level 22 21-32 MMOL/L Anion Gap 10 5-14 MMOL/L Blood Urea Nitrogen 17 7-18 MG/DL Creatinine 1.83 H 0.60-1.30 MG/DL Estimat Glomerular Filtration Rate 36 BUN/Creatinine Ratio 9 Glucose Level 235 H 70-105 MG/DL Calcium Level 9.7 8.5-10.1 MG/DL Magnesium Level 1.7 L 1.8-2.4 MG/DL Total Bilirubin 0.3 0.1-1.0 MG/DL Aspartate Amino Transf (AST/SGOT) 17 5-34 U/L Alanine Aminotransferase (ALT/SGPT) 18 0-55 U/L Alkaline Phosphatase 51 40-136 U/L B-Type Natriuretic Peptide 24.1 <100.0 PG/ML Total Protein 6.5 6.4-8.2 G/DL Albumin 3.9 3.2-4.5 G/DL Digoxin Level 0.49 L 0.80-2.00 NG/ML Urine Color YELLOW Urine Clarity CLEAR Urine pH 5 5-9 Urine Specific Comfort 1.020 1.016-1.022 Urine Protein NEGATIVE NEGATIVE Urine Glucose (UA) 2+ H NEGATIVE Urine Ketones NEGATIVE NEGATIVE Urine Nitrite NEGATIVE NEGATIVE Urine Bilirubin NEGATIVE NEGATIVE Urine Urobilinogen NORMAL NORMAL MG/DL Urine Leukocyte Esterase 1+ H NEGATIVE Urine RBC (Auto) NEGATIVE NEGATIVE Urine RBC NONE /HPF Urine WBC 2-5 /HPF Urine Squamous Epithelial Cells 10-25 H /HPF Urine Crystals PRESENT H /LPF Urine Amorphous Sediment FEW DEYVI URATES H /LPF Urine Bacteria NONE /HPF Urine Casts NONE /LPF Urine Mucus NEGATIVE /LPF Urine Culture Indicated NO My Orders Orders - JUSTINE TABARES DO BNP (09/05/16 16:35) Cbc With Automated Diff (09/05/16 16:35) Comprehensive Metabolic Panel (09/05/16 16:35) Magnesium (09/05/16 16:35) Ua Culture If Indicated (09/05/16 16:35) Saline Lock/Iv-Start (09/05/16 16:35) Orthostatic Vital Signs (09/05/16 16:35) Ns Iv 1000 Ml (Sodium Chloride 0.9%) (09/05/16 16:57) Digoxin (09/05/16 17:06) Medications Given in ED Vital Signs/I&O Blood Pressure Mean: 81 Departure Impression Impression: Primary Impression: Orthostatic hypotension Additional Impressions: Dehydration Mild cellulitis RLE Disposition: 01 HOME, SELF-CARE Condition: Improved Departure-Patient Inst. Decision time for Depature: 17:57 Referrals: LLUVIA ROUSE DO (PCP/Family) Primary Care Physician Patient Instructions: Cellulitis (Skin Infection), Adult (DC), Dehydration, Adult (DC), Orthostatic Hypotension (DC) Add. Discharge Instructions: All discharge instructions reviewed with patient and/or family. Voiced understanding. NEED TO INCREASE YOUR DAILY WATER INTAKE! Scripts Cephalexin (Keflex) 500 Mg Capsule 1000 MG PO BID for CELLULITIS, #40 CAP 0 Refills Prov: JUSTINE TABARES DO 09/05/16 JUSTINE TABARES DO Sep 05, 2016 16:37
[2016-09-05] MEDS ORDERED: NS IV 1000 ML 1,000 ML IV ONE (16:57)
[2016-09-05 17:12] LABS: BASOPHILS % (AUTO) 1 % (0-10); EOSINOPHILS # (AUTO) 0.2 10^3/uL (0.0-0.3); EOSINOPHILS % (AUTO) 2 % (0-10); LYMPHOCYTES # (AUTO) 1.8 X 10^3 (1.0-4.0); LYMPHOCYTES % (AUTO) 24 % (12-44); MEAN CORPUSCULAR HEMOGLOBIN 29 PG (25-34); MEAN CORPUSCULAR HGB CONC 33 G/DL (32-36); MEAN CORPUSCULAR VOLUME 88 FL (80-99); MONOCYTES # (AUTO) 0.6 X 10^3 (0.0-1.0); MONOCYTES % (AUTO) 8 % (0-12); NEUTROPHILS # (AUTO) 5.2 X 10^3 (1.8-7.8); NEUTROPHILS % (AUTO) 66 % (42-75); PLATELET COUNT 253 10^3/uL (130-400); RED BLOOD COUNT 4.32 10^6/uL (4.35-5.85); RED CELL DISTRIBUTION WIDTH 14.6 % (10.0-14.5); WHITE BLOOD COUNT 7.8 10^3/uL (4.3-11.0)
[2016-09-05 17:37] LABS: ALBUMIN 3.9 G/DL (3.2-4.5); BILIRUBIN,TOTAL 0.3 MG/DL (0.1-1.0); CALCIUM 9.7 MG/DL (8.5-10.1); CREATININE SERUM 1.83 MG/DL (0.60-1.30); MAGNESIUM 1.7 MG/DL (1.8-2.4); POTASSIUM 4.2 MMOL/L (3.6-5.0); TOTAL PROTEIN 6.5 G/DL (6.4-8.2)
[2016-09-05 17:45] LABS: DIGOXIN 0.49 NG/ML (0.80-2.00)
[2016-09-05 17:59] LABS: BILIRUBIN,URINE NEGATIVE (NEGATIVE); KETONES,URINE NEGATIVE (NEGATIVE); LEUKOCYTE ESTERASE ,URINE 1+ (NEGATIVE); NITRITE,URINE NEGATIVE (NEGATIVE); PH,URINE 5 (5-9); PROTEIN,URINE NEGATIVE (NEGATIVE); UROBILINOGEN,URINE NORMAL (NORMAL)
[2016-09-05] MEDS ORDERED: CEPH-507 PO (18:00)
[2016-09-05 18:08] VITALS: BP 121/69
[2016-09-22] MEDS ORDERED: METO-333 PO (10:13)
[2016-09-22] MEDS ORDERED: DRON400T2 PO (10:13)
[2016-09-22] MEDS ORDERED: FLUT16SP22 NS (10:13)
[2016-09-22] MEDS ORDERED: ENAL5TAB PO (10:13)
== END 2016-09-05 18:08 | disposition home or self-care (01) ==
LOC: EDUNIT# 16:02 → ER 16:03
DX: I95.9 Hypotension, unspecified (principal); E86.0 Dehydration; E11.9 Type 2 diabetes mellitus without complications; J44.9 Chronic obstructive pulmonary disease, unspecified; I25.10 Atherosclerotic heart disease of native coronary artery without angina pectoris; I10 Essential (primary) hypertension; Z87.891 Personal history of nicotine dependence; Z79.899 Other long term (current) drug therapy; Z79.84 Long term (current) use of oral hypoglycemic drugs; Z95.1 Presence of aortocoronary bypass graft; Z95.5 Presence of coronary angioplasty implant and graft
CPT/HCPCS: 36415; 80053; 80162; 81000; 83735; 83880; 85025; 96360

== ENCOUNTER → 2016-09-17 | Emergency (ER) | payer MEDICARE, MEDICAID ==
[~2016-09-17] VITALS: Ht 182.9 cm; Wt 87.5 kg
[~2016-09-17] MED LIST changes: +ANTACID SUSP 30 ML UDC (MYLANTA) PO ONE; +CEPH-507 PO; +DRON400T2 PO; +FLUT16SP22 NS; +HYOSCYAMINE 0.125 MG (LEVSIN) TAB SL ONE; +LIDOCAINE 2% VISCOUS 15 ML UDC PO ONE
--- NOTE | 2016-09-17 22:16 | ED GI ---
General Chief Complaint: Abdominal/GI Problems Stated Complaint: STOMACH ISSUES Nursing Triage Note: ABD/EPIGASTRIC PAIN, RATES 8-9 ON 0-10 SCALE. STATES THIS HAPPENS ONCE A MONTH. TO SEE DR. MADISON THIS COMING SUNDAY. TOOK [facility] 1-2H BODY SANDER. Sepsis Screen: No Definite Risk Source of Information: Patient Exam Limitations: No Limitations History of Present Illness Time Seen By Provider: 22:05 Initial Comments here with complaint of his typical epigastric pain that has been going on for a few hours. Home therapy treatments did not help. He usually receives GI cocktail and this completely resolves his pain. Denies vomiting or black stools. Has endoscopy set up for Sunday in [place], [place]. Denies chest pain or breathing problems. Denies fever or chills. Timing/Duration: 4-6 Hours Severity/Quality: Moderate Location: Epigastric Radiation: No Radiation Activities at Onset: None Modifying Factors: Worsens With Eating Associated Symptoms: No Back Pain, No Chest Pain, No Fever/Chills, No Nausea/ Vomiting, No Shortness of Air, No Weakness Allergies and Home Medications Allergies Coded Allergies: celecoxib (Unverified Allergy, Mild, TAKES ASPIRIN AT HOME, 12/21/14) diclofenac (Unverified Allergy, Mild, TAKES ASPIRIN AT HOME, 12/21/14) naproxen (Unverified Allergy, Mild, TAKES ASPIRIN AT HOME, 12/21/14) rosuvastatin (Unverified Allergy, Mild, 08/14/08) Penicillins (Verified Allergy, Unknown, 08/03/05) amoxicillin (Verified Allergy, Unknown, 08/03/05) fenofibrate (Unverified Allergy, Unknown, 06/05/16) morphine (Verified Allergy, Unknown, TAKES HYDROCODONE AT HOME, 07/17/14) simvastatin (Unverified Allergy, Unknown, 06/05/16) Uncoded Allergies: GEMIFIBOROZIL (Allergy, Unknown, 06/05/16) Home Medications Apixaban 5 Mg Tablet, 1 TAB PO BID, #60 (Reported) Aspirin 81 Mg Tablet., 81 MG PO DAILY, (Reported) Baclofen 10 Mg Tablet, 1 TAB PO UD, #270 (Reported) Cephalexin 500 Mg Capsule, 1,000 MG PO BID, #40 Ref 0 Prescribed by: JUSTINE TABARES on 09/05/16 1800 Cilostazol 100 Mg Tablet, 1 TAB PO UD, #60 (Reported) Digoxin 125 Mcg Tablet, 125 MCG PO DAILY, (Reported) Enalapril Maleate 10 Mg Tablet, 10 MG PO BID, (Reported) Fenofibrate,Micronized 134 Mg Capsule, 134 MG PO UD, (Reported) Gabapentin 300 Mg Capsule, 600 MG PO HS, (Reported) TAKES 2 (300 MG) CAPSULES Glipizide 10 Mg Tablet, 10 MG PO DAILY, (Reported) Insulin Detemir 100 Unit/1 Ml Insuln.pen, 43 UNIT SQ HS, (Reported) Loratadine 10 Mg Tablet, 10 MG PO DAILY, (Reported) Methylprednisolone 4 Mg Tab.ds.pk, 4 MG PO UD, #1 Prescribed by: ROMAIN KNIGHT on 08/09/16 0603 Metoprolol Tartrate 25 Mg Tablet, 12.5 MG PO DAILY, (Reported) TAKES 1/2 OF A (25 MG) Montelukast Sodium 10 Mg Tablet, 10 MG PO DAILY, (Reported) Nitroglycerin 0.4 Mg Tab.subl, 0.4 MG SL UD PRN for CHEST PAIN, (Reported) [place]-3/Dha/Epa/Fish Oil 1,000 Mg Capsule, 1,000 MG PO BID, (Reported) Pantoprazole Sodium 40 Mg Tablet.dr, 1 TAB PC UD, #90 (Reported) Pentoxifylline 400 Mg Tablet.er, 400 MG PO TID, (Reported) Pravastatin Sodium 80 Mg Tablet, #90 (Reported) Prednisolone Acetate 5 Ml Drops.susp, #10 (Reported) Sitagliptin Phosphate 100 Mg Tablet, 1 TAB PO UD, #90 (Reported) Tamsulosin HCl 0.4 Mg Cap.er.24h, 1 TAB PO UD, #90 (Reported) Trazodone HCl 50 Mg Tablet, 50 MG PO HS, (Reported) Umeclidinium Brm/Vilanterol Tr 1 Each Blst.w.dev, 1 PUFF IH DAILY, (Reported) Review of Systems Constitutional: see HPI, No chills, No fever Respiratory: No Symptoms Reported, See HPI Cardiovascular: No Symptoms Reported, See HPI Gastrointestinal: See HPI, Abdominal Pain, Denies Diarrhea, Denies Nausea, Denies Vomiting Musculoskeletal: no symptoms reported Past Eniibhz-Ufrimz-Asmsjy Hx Patient Social History Alcohol Use: Rarely Uses Recreational Drug Use: No Type Used: Cigarettes Former Smoker/When Quit: May 31, 1999 2nd Hand Smoke Exposure: Yes Recent Foreign Travel: No Contact w/Someone Who Travel: No Recent Infectious Disease Expo: No Recent Hopitalizations: No Immunizations Up To Date Tetanus Booster (TDap): Less than 5yrs PED Vaccines UTD: No Date of Pneumonia Vaccine: Jun 14, 2015 Date of Influenza Vaccine: Feb 12, 2016 Seasonal Allergies Seasonal Allergies: Yes Surgeries HX Surgeries: Yes Surgeries: Abdominal, Cardiac, CABG, Coronary Stent, Eye Surgery, Gallbladder, Joint Replacement, Open Heart Surgery, Orthopedic, Vascular Surgery Respiratory Hx Respiratory Disorders: Yes (CHRONIC DYSPNEA ON EXERTION) Respiratory Disorders: Sleep Apnea, COPD Cardiovascular Hx Cardiac Disorders: Yes Cardiac Disorders: Atrial Fibrillation, Coronary Artery Disease, Heart Attack, High Cholesterol, Hypertension, Peripheral Vascular Neurological Hx Neurological Disorders: Yes (POSSIBLE STROKE/ TIA) Neurological Disorders: Stroke, TIA Reproductive System Hx Reproductive Disorders: No Sexually Transmitted Disease: No HIV/AIDS: No Genitourinary Hx Genitourinary Disorders: Yes (RENAL INSUFFICIENCY) Genitourinary Disorders: Benign Prostatic Hyperpl, Prostate Problems, Renal Failure Gastrointestinal Hx Gastrointestinal Disorders: Yes (GASTROPARESIS; GASTRITIS; DUODENITIS; COLON POLYPECTOMY) Gastrointestinal Disorders: Gastroesophageal Reflux, Pancreatitis, Polyps Musculoskeletal Hx Musculoskeletal Disorders: Yes (OLECRANON BURSITIS, CHRONIC NECK PAIN, DISH SYNDROME) Musculoskeletal Disorders: Degenerate Disk Disease, Arthritis, Chronic Back Pain Endocrine Hx Endocrine Disorders: Yes Endocrine Disorders: Diabetes, Insulin dep HEENT HX ENT Disorders: Yes (SINUS PROBLEMS) HEENT Disorders: Cataract Loss of Vision: Denies Hearing Impairment: Denies Psychosocial Hx Psychiatric Problems: Yes Behavioral Health Disorders: Anxiety Integumentary HX Skin/Integumentary Disorder: No Blood Transfusions Hx Blood Disorders: No Adverse Reaction to a Blood Tr: No Reviewed Nursing Assessment Reviewed/Agree w Nursing PMH: Yes Family Medical History Significant Family History: No Pertinent Family Hx Family Medial History: Cancer G8 BROTHER Cataract 19 FATHER 19 MOTHER G8 BROTHER G8 BROTHER G8 SISTER Congestive heart failure 19 FATHER 19 MOTHER Family history: Arthritis 19 FATHER 19 MOTHER G8 BROTHER G8 BROTHER G8 SISTER G8 SISTER DAUGHTER SON Family history: Breast disease DAUGHTER Family history: Cardiovascular disease 19 FATHER Family history: Diabetes mellitus 19 FATHER G8 BROTHER G8 SISTER Family history: Hypertension 19 FATHER 19 MOTHER G8 BROTHER G8 BROTHER G8 SISTER G8 SISTER DAUGHTER SON Family history: Thyroid disorder DAUGHTER Heart disease 19 FATHER 19 MOTHER G8 BROTHER Hypercholesterolemia 19 FATHER 19 MOTHER G8 BROTHER G8 BROTHER G8 SISTER Myocardial infarction 19 FATHER 19 MOTHER G8 BROTHER Physical Exam Vital Signs VS - Last 72 Hours, by Label 09/17/16 21:38 Temp 98.0 B/P (MAP) 114/78 O2 Delivery Room Air Capillary Refill : Less Than 3 Seconds General Appearance: WD/WN, no apparent distress HEENT: PERRL/EOMI, pharynx normal Neck: full range of motion, supple Respiratory: lungs clear, normal breath sounds Cardiovascular: regular rate, rhythm, no murmur Gastrointestinal: soft, No guarding, No rebound, tenderness (mild epigastric) Progress/Results/Core Measures Results/Orders My Orders Orders - CHARO SCHNEIDER MD Lidocaine 2% Viscous 15 Ml (Xylocaine Vi (09/17/16 22:15) Antacid Suspension (Mylanta Suspension (09/17/16 22:15) Hyoscyamine Sl Tablet (Levsin Sl Tablet) (09/17/16 22:15) Vital Signs/I&O Vital Sign - Last 12Hours 09/17/16 21:38 Temp 98.0 B/P (MAP) 114/78 O2 Delivery Room Air Blood Pressure Mean: 90 Progress Note : Progress Note seen and evaluated. GI cocktail and Levsin 0.125 mg by mouth. Monitor patient. Departure Impression Impression: Primary Impression: Epigastric abdominal pain Disposition: 01 HOME, SELF-CARE Condition: Improved Departure-Patient Inst. Decision time for Depature: 22:26 Referrals: LLUVIA ROUSE DO (PCP/Family) Primary Care Physician Patient Instructions: Acute Abdomen (Belly Pain), Adult (DC) Add. Discharge Instructions: All discharge instructions reviewed with patient and/or family. Voiced understanding. continue home medications as directed. Keep appointment as scheduled with the surgeon for endoscopy. Return for worse pain, fever, vomiting, weakness, breathing problems or other concerns as needed. CHARO SCHNEIDER MD September 17, 2016 22:15
[2016-09-17 22:47] VITALS: BP 114/78
== END | disposition home or self-care (01) ==
LOC: EDUNIT# 21:26 → ER 21:29
DX: R10.13 Epigastric pain (principal); E11.9 Type 2 diabetes mellitus without complications; I25.10 Atherosclerotic heart disease of native coronary artery without angina pectoris; J44.9 Chronic obstructive pulmonary disease, unspecified; I10 Essential (primary) hypertension; Z79.82 Long term (current) use of aspirin; Z79.4 Long term (current) use of insulin; Z79.84 Long term (current) use of oral hypoglycemic drugs; Z79.899 Other long term (current) drug therapy; Z95.5 Presence of coronary angioplasty implant and graft; Z95.1 Presence of aortocoronary bypass graft
CPT/HCPCS: 99285

== ENCOUNTER 2016-09-19 20:50 | Inpatient (IN) | payer MEDICARE, MEDICAID ==
[~2016-09-19] VITALS: Ht 182.9 cm; Wt 86.6 kg
[~2016-09-19 20:50] MED LIST changes: -ANTACID SUSP 30 ML UDC (MYLANTA) PO ONE; -DRON400T2 PO; -FLUT16SP22 NS; -HYOSCYAMINE 0.125 MG (LEVSIN) TAB SL ONE; -LIDOCAINE 2% VISCOUS 15 ML UDC PO ONE
[2016-09-19] MEDS ORDERED: ADENOSINE 6 MG/2 ML (ADENOCARD) VIAL IV ONE ×3 (20:59→21:00)
[2016-09-19] MEDS ORDERED: NS IV 1000 ML 1,000 ML IV ONE (21:04)
[2016-09-19 21:15] LABS: BASOPHILS % (AUTO) 1 % (0-10); EOSINOPHILS # (AUTO) 0.1 10^3/uL (0.0-0.3); EOSINOPHILS % (AUTO) 2 % (0-10); LYMPHOCYTES # (AUTO) 1.7 X 10^3 (1.0-4.0); LYMPHOCYTES % (AUTO) 21 % (12-44); MEAN CORPUSCULAR HEMOGLOBIN 29 PG (25-34); MEAN CORPUSCULAR HGB CONC 33 G/DL (32-36); MEAN CORPUSCULAR VOLUME 89 FL (80-99); MEAN PLATELET VOLUME 10.4 FL (7.4-10.4); MONOCYTES # (AUTO) 0.7 X 10^3 (0.0-1.0); MONOCYTES % (AUTO) 8 % (0-12); NEUTROPHILS # (AUTO) 5.7 X 10^3 (1.8-7.8); NEUTROPHILS % (AUTO) 69 % (42-75); PLATELET COUNT 264 10^3/uL (130-400); RED BLOOD COUNT 4.41 10^6/uL (4.35-5.85); RED CELL DISTRIBUTION WIDTH 14.4 % (10.0-14.5); WHITE BLOOD COUNT 8.2 10^3/uL (4.3-11.0)
[2016-09-19] MEDS ORDERED: DILTIAZEM 25 MG/5 ML INJ (CARDIZEM) VIAL ONE (21:21)
[2016-09-19] MEDS ORDERED: DILTIAZEM 100 MG/VIAL (CARDIZEM) ADD-VANTAGE IV ONE (21:21)
[2016-09-19] MEDS ORDERED: SODIUM CHLORIDE (ADD-VANTAGE) 100 ML IV ONE (21:21)
[2016-09-19 21:25] LABS: INR 1.4 (0.8-1.4); PROTHROMBIN TIME PATIENT 17.2 SEC (12.2-14.7)
[2016-09-19] MEDS ORDERED: DILTIAZEM 25 MG/5 ML INJ (CARDIZEM) VIAL IVP ONE (21:30)
[2016-09-19] MEDS ORDERED: DILTIAZEM DRIP 100 MG in SODIUM CHLORIDE (ADD-VANTAGE) 100 ML IV SCH (21:30)
[2016-09-19 21:39] LABS: ALANINE AMINOTRANSFERASE 19 U/L (0-55); ALBUMIN 4.2 G/DL (3.2-4.5); ANION GAP 12 MMOL/L (5-14); ASPARTATE AMINO TRANSFERASE 16 U/L (5-34); BILIRUBIN,TOTAL 0.4 MG/DL (0.1-1.0); BLOOD UREA NITROGEN 22 MG/DL (7-18); BUN/CREATININE RATIO 11; CALCIUM 9.8 MG/DL (8.5-10.1); CARBON DIOXIDE 21 MMOL/L (21-32); CHLORIDE 104 MMOL/L (98-107); CREATININE SERUM 1.94 MG/DL (0.60-1.30); GFR ESTIMATED 34; GLUCOSE 345 MG/DL (70-105); POTASSIUM 3.8 MMOL/L (3.6-5.0); SODIUM 137 MMOL/L (135-145); TOTAL PROTEIN 7.1 G/DL (6.4-8.2)
--- NOTE | 2016-09-19 21:39 | Diagnostic Imaging Report ---
INDICATION: Hypotension, tachycardia and chest pain. Comparison is made with prior examination 07/02/16. FINDINGS: There has been previous median sternotomy and coronary bypass graft. Heart size is normal. Lungs are clear. There is no pleural effusion or pneumothorax. Mediastinum is unremarkable. IMPRESSION: No acute cardiopulmonary abnormality. Dictated by: Dictated on workstation # [id number]
[2016-09-19 21:48] LABS: MYOGLOBIN SERUM 79.4 NG/ML (10.0-92.0)
--- NOTE | 2016-09-19 22:49 | ED Chest Pain ---
General Chief Complaint: Cardiac/General Problems Stated Complaint: CP/LOW BP/ELEV HR Nursing Triage Note: Pt. advised he began experiencing chest pain earlier this evening that became progressively worse. Nursing Sepsis Screen: No Definite Risk Source: patient Exam Limitations: no limitations History of Present Illness Time seen by provider: 20:55 Initial Comments This 76-year-old gentleman presents to the emergency room with complaints of chest pain. Pain started about one hour ago and has diminished somewhat no. Patient reports having upper endoscopy performed earlier in the day. He was instructed to return home and rest. However, he went out and planted his garden instead. He started feeling ill with the chest pain and went inside. There he found his blood pressure to be 80/60 and his blood sugar to be 62. He then presented to the emergency room. Patient is found to have a regular narrow complex tachycardia in the 130s. He does have a history of paroxysmal atrial fibrillation for which she is to be seen in [place] for possible ablation. Atrial flutter with rapid conduction was suspected. Blood pressure was stable. Fingerstick blood sugar was 314. Allergies and Home Medications Allergies Coded Allergies: celecoxib (Unverified Allergy, Mild, TAKES ASPIRIN AT HOME, 12/21/14) diclofenac (Unverified Allergy, Mild, TAKES ASPIRIN AT HOME, 12/21/14) naproxen (Unverified Allergy, Mild, TAKES ASPIRIN AT HOME, 12/21/14) rosuvastatin (Unverified Allergy, Mild, 08/14/08) Penicillins (Verified Allergy, Unknown, 08/03/05) amoxicillin (Verified Allergy, Unknown, 08/03/05) fenofibrate (Unverified Allergy, Unknown, 06/05/16) morphine (Verified Allergy, Unknown, TAKES HYDROCODONE AT HOME, 07/17/14) simvastatin (Unverified Allergy, Unknown, 06/05/16) Uncoded Allergies: GEMIFIBOROZIL (Allergy, Unknown, 06/05/16) Home Medications Apixaban 5 Mg Tablet, 1 TAB PO BID, #60 (Reported) Aspirin 81 Mg Tablet.dr, 81 MG PO DAILY, (Reported) Baclofen 10 Mg Tablet, 1 TAB PO UD, #270 (Reported) Cephalexin 500 Mg Capsule, 1,000 MG PO BID, #40 Ref 0 Prescribed by: JUSTINE TABARES on 09/05/16 1800 Cilostazol 100 Mg Tablet, 1 TAB PO UD, #60 (Reported) Digoxin 125 Mcg Tablet, 125 MCG PO DAILY, (Reported) Enalapril Maleate 10 Mg Tablet, 10 MG PO BID, (Reported) Fenofibrate,Micronized 134 Mg Capsule, 134 MG PO UD, (Reported) Gabapentin 300 Mg Capsule, 600 MG PO HS, (Reported) TAKES 2 (300 MG) CAPSULES Glipizide 10 Mg Tablet, 10 MG PO DAILY, (Reported) Insulin Detemir 100 Unit/1 Ml Insuln.pen, 43 UNIT SQ HS, (Reported) Loratadine 10 Mg Tablet, 10 MG PO DAILY, (Reported) Methylprednisolone 4 Mg Tab.ds.pk, 4 MG PO UD, #1 Prescribed by: ROMAIN KNIGHT on 08/09/16 0603 Metoprolol Tartrate 25 Mg Tablet, 12.5 MG PO DAILY, (Reported) TAKES 1/2 OF A (25 MG) Montelukast Sodium 10 Mg Tablet, 10 MG PO DAILY, (Reported) Nitroglycerin 0.4 Mg Tab.subl, 0.4 MG SL UD PRN for CHEST PAIN, (Reported) [place]-3/Dha/Epa/Fish Oil 1,000 Mg Capsule, 1,000 MG PO BID, (Reported) Pantoprazole Sodium 40 Mg Tablet.dr, 1 TAB PC UD, #90 (Reported) Pentoxifylline 400 Mg Tablet.er, 400 MG PO TID, (Reported) Pravastatin Sodium 80 Mg Tablet, #90 (Reported) Prednisolone Acetate 5 Ml Drops.susp, #10 (Reported) Sitagliptin Phosphate 100 Mg Tablet, 1 TAB PO UD, #90 (Reported) Tamsulosin HCl 0.4 Mg Cap.er.24h, 1 TAB PO UD, #90 (Reported) Trazodone HCl 50 Mg Tablet, 50 MG PO HS, (Reported) Umeclidinium Brm/Vilanterol Tr 1 Each Blst.w.dev, 1 PUFF IH DAILY, (Reported) Review of Systems Constitutional: no symptoms reported EENTM: No Symptoms Reported Respiratory: No Symptoms Reported Cardiovascular: See HPI Gastrointestinal: See HPI Genitourinary: No Symptoms Reported Musculoskeletal: no symptoms reported Skin: no symptoms reported Psychiatric/Neurological: No Symptoms Reported Endocrine: No Symptoms Reported Past Lazyahg-Npvlgt-Gsxxmy Hx Patient Social History Alcohol Use: Denies Use Recreational Drug Use: No Type Used: Cigarettes Former Smoker/When Quit: May 31, 1999 2nd Hand Smoke Exposure: Yes Recent Foreign Travel: No Contact w/Someone Who Travel: No Recent Infectious Disease Expo: No Recent Hopitalizations: No Immunizations Up To Date Tetanus Booster (TDap): Less than 5yrs PED Vaccines UTD: No Date of Pneumonia Vaccine: Jun 14, 2015 Date of Influenza Vaccine: Feb 12, 2016 Seasonal Allergies Seasonal Allergies: Yes Surgeries HX Surgeries: Yes Surgeries: Abdominal, Cardiac, CABG, Coronary Stent, Eye Surgery, Gallbladder, Joint Replacement, Open Heart Surgery, Orthopedic, Vascular Surgery Respiratory Hx Respiratory Disorders: Yes (CHRONIC DYSPNEA ON EXERTION) Respiratory Disorders: Sleep Apnea, COPD Cardiovascular Hx Cardiac Disorders: Yes Cardiac Disorders: Atrial Fibrillation, Coronary Artery Disease, Heart Attack, High Cholesterol, Hypertension, Peripheral Vascular Neurological Hx Neurological Disorders: Yes (POSSIBLE STROKE/ TIA) Neurological Disorders: Stroke, TIA Reproductive System Hx Reproductive Disorders: No Sexually Transmitted Disease: No HIV/AIDS: No Genitourinary Hx Genitourinary Disorders: Yes (RENAL INSUFFICIENCY) Genitourinary Disorders: Benign Prostatic Hyperpl, Prostate Problems, Renal Failure Gastrointestinal Hx Gastrointestinal Disorders: Yes (GASTROPARESIS; GASTRITIS; DUODENITIS; COLON POLYPECTOMY) Gastrointestinal Disorders: Gastroesophageal Reflux, Pancreatitis, Polyps Musculoskeletal Hx Musculoskeletal Disorders: Yes (OLECRANON BURSITIS, CHRONIC NECK PAIN, DISH SYNDROME) Musculoskeletal Disorders: Degenerate Disk Disease, Arthritis, Chronic Back Pain Endocrine Hx Endocrine Disorders: Yes Endocrine Disorders: Diabetes, Insulin dep HEENT HX ENT Disorders: Yes (SINUS PROBLEMS) HEENT Disorders: Cataract Loss of Vision: Denies Hearing Impairment: Denies Psychosocial Hx Psychiatric Problems: Yes Behavioral Health Disorders: Anxiety Integumentary HX Skin/Integumentary Disorder: No Blood Transfusions Hx Blood Disorders: No Adverse Reaction to a Blood Tr: No Family Medical History Significant Family History: No Pertinent Family Hx Family Medial History: Cancer G8 BROTHER Cataract 19 FATHER 19 MOTHER G8 BROTHER G8 BROTHER G8 SISTER Congestive heart failure 19 FATHER 19 MOTHER Family history: Arthritis 19 FATHER 19 MOTHER G8 BROTHER G8 BROTHER G8 SISTER G8 SISTER DAUGHTER SON Family history: Breast disease DAUGHTER Family history: Cardiovascular disease 19 FATHER Family history: Diabetes mellitus 19 FATHER G8 BROTHER G8 SISTER Family history: Hypertension 19 FATHER 19 MOTHER G8 BROTHER G8 BROTHER G8 SISTER G8 SISTER DAUGHTER SON Family history: Thyroid disorder DAUGHTER Heart disease 19 FATHER 19 MOTHER G8 BROTHER Hypercholesterolemia 19 FATHER 19 MOTHER G8 BROTHER G8 BROTHER G8 SISTER Myocardial infarction 19 FATHER 19 MOTHER G8 BROTHER No Family History of: Abdominal aortic aneurysm [place]'s disease Alcoholism Aphasia Cancer of colon Chest pain Congenital heart disease Cystic fibrosis Dementia Dysphagia Family history: Allergy Family history: Alzheimer's disease Family history: Asthma Family history: Coronary thrombosis Family history: Gastrointestinal disease Family history: Glaucoma Family history: Osteoporosis Headache Hearing loss Hereditary disease History of - anemia History of - disorder History of - respiratory disease History of drug abuse Human immunodeficiency virus (HIV) seropositivity Infertile Kidney disease Malignant neoplasm of lung Parkinson's disease Prostate cancer Psychotic disorder Seizure disorder Stroke Tuberculosis Visual impairment Physical Exam Vital Signs Vital Sign - Last 12Hours 09/19/16 20:52 Temp 98.6 Pulse 138 Resp 14 B/P (MAP) 120/81 Pulse Ox 99 O2 Delivery Nasal Cannula O2 Flow Rate 2.00 FiO2 100 Capillary Refill : Less Than 3 Seconds General Appearance: No Apparent Distress, WD/WN HEENT: PERRL/EOMI, Normal ENT Inspection, Pharynx Normal Neck: Normal Inspection Respiratory: Lungs Clear, Normal Breath Sounds, No Accessory Muscle Use, No Respiratory Distress Cardiovascular: No Edema, No Murmur, Tachycardia (regular) Gastrointestinal: Normal Bowel Sounds, Non Tender, Soft Extremity: Normal Inspection, No Pedal Edema Neurologic/Psychiatric: Alert, Oriented x3, No Motor/Sensory Deficits, Normal Mood/Affect, 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-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 Norm as Tested Skin: Normal Color, Warm/Dry Progress/Results/Core Measures Results/Orders Lab Results Laboratory Tests Test 09/19/16 21:08 09/19/16 21:12 Range/Units White Blood Count 8.2 4.3-11.0 10^3/uL Red Blood Count 4.41 4.35-5.85 10^6/uL Hemoglobin 12.9 L 13.3-17.7 G/DL Hematocrit 39 L 40-54 % Mean Corpuscular Volume 89 80-99 FL Mean Corpuscular Hemoglobin 29 25-34 PG Mean Corpuscular Hemoglobin Concent 33 32-36 G/DL Red Cell Distribution Width 14.4 10.0-14.5 % Platelet Count 264 130-400 10^3/uL Mean Platelet Volume 10.4 7.4-10.4 FL Neutrophils (%) (Auto) 69 42-75 % Lymphocytes (%) (Auto) 21 12-44 % Monocytes (%) (Auto) 8 0-12 % Eosinophils (%) (Auto) 2 0-10 % Basophils (%) (Auto) 1 0-10 % Neutrophils # (Auto) 5.7 1.8-7.8 X 10^3 Lymphocytes # (Auto) 1.7 1.0-4.0 X 10^3 Monocytes # (Auto) 0.7 0.0-1.0 X 10^3 Eosinophils # (Auto) 0.1 0.0-0.3 10^3/uL Basophils # (Auto) 0.0 0.0-0.1 10^3/uL Prothrombin Time 17.2 H 12.2-14.7 SEC INR Comment 1.4 0.8-1.4 Activated Partial Thromboplast Time 31 24-35 SEC Sodium Level 137 135-145 MMOL/L Potassium Level 3.8 3.6-5.0 MMOL/L Chloride Level 104 98-107 MMOL/L Carbon Dioxide Level 21 21-32 MMOL/L Anion Gap 12 5-14 MMOL/L Blood Urea Nitrogen 22 H 7-18 MG/DL Creatinine 1.94 H 0.60-1.30 MG/DL Estimat Glomerular Filtration Rate 34 BUN/Creatinine Ratio 11 Glucose Level 345 H 70-105 MG/DL Calcium Level 9.8 8.5-10.1 MG/DL Magnesium Level 2.0 1.8-2.4 MG/DL Total Bilirubin 0.4 0.1-1.0 MG/DL Aspartate Amino Transf (AST/SGOT) 16 5-34 U/L Alanine Aminotransferase (ALT/SGPT) 19 0-55 U/L Alkaline Phosphatase 57 40-136 U/L Myoglobin 79.4 10.0-92.0 NG/ML Troponin I < 0.30 <0.30 NG/ML Total Protein 7.1 6.4-8.2 G/DL Albumin 4.2 3.2-4.5 G/DL Digoxin Level 0.49 L 0.80-2.00 NG/ML Glucometer 314 H 70-110 MG/DL My Orders Orders - RODOLFO CUELLO MD Cbc With Automated Diff (09/19/16 21:00) Magnesium (09/19/16 21:00) Chest 1 View, Ap/Pa Only (09/19/16 21:00) Ekg Tracing (09/19/16 21:00) Cardiac Profile 1 (09/19/16 21:00) Comprehensive Metabolic Panel (09/19/16 21:00) Myoglobin Serum (09/19/16 21:00) Protime With Inr (09/19/16 21:00) Partial Thromboplastin Time (09/19/16 21:00) O2 (09/19/16 21:00) Monitor-Rhythm Ecg Trace Only (09/19/16 21:00) Lipid Panel (09/20/16 06:00) Saline Lock/Iv-Start (09/19/16 21:00) Adenosine Injection (Adenocard Injection (09/19/16 21:00) Adenosine Injection (Adenocard Injection (09/19/16 21:00) Adenosine Injection (Adenocard Injection (09/19/16 20:59) Accucheck Stat ONCE (09/19/16 21:04) Ns Iv 1000 Ml (Sodium Chloride 0.9%) (09/19/16 21:04) Diltiazem Injection (Cardizem Injection) (09/19/16 21:30) Sodium Chloride (Ad... W/Diltiazem Drip (09/19/16 21:30) Sodium Chloride (Add-[place]) (Ns (Add-V (09/19/16 21:21) Diltiazem Drip (Cardizem Drip) (09/19/16 21:21) Diltiazem Injection (Cardizem Injection) (09/19/16 21:21) Digoxin (09/19/16 22:37) Medications Given in ED Current Medications Medications Dose Ordered Sig/Alka Route Start Time Stop Time Status Last Admin Dose Admin Adenosine 6 mg STK-MED ONCE IV 09/19/16 20:59 09/19/16 21:03 DC 09/19/16 21:16 6 MG Diltiazem HCl 10 mg ONCE ONCE IVP 09/19/16 21:30 09/19/16 21:31 DC 09/19/16 21:29 10 MG Sodium Chloride 1,000 ml @ 0 mls/hr Q0M ONCE IV 09/19/16 21:04 09/19/16 21:05 DC 09/19/16 21:15 0 MLS/HR Vital Signs/I&O Vital Sign - Last 12Hours 09/19/16 09/19/16 09/19/16 20:52 20:52 21:31 Temp 98.6 Pulse 138 137 Resp 14 14 B/P (MAP) 120/81 123/99 Pulse Ox 99 99 100 O2 Delivery Nasal Cannula Nasal Cannula O2 Flow Rate 2.00 2.00 FiO2 100 Blood Pressure Mean: 94 Point of Care Testing Finger Stick Blood Glucose: 314 Progress Note #1: Time: 21:20 Progress Note Patient was given adenosine 6 mg IV push at 21:17. This slowed the ventricular rate to unmask a underlying atrial flutter. Cardizem drip was ordered. Progress Note #2: Time: 22:57 Progress Note EKG now shows sinus tachycardia with a rate of 100. ECG Initial ECG Impression Date: September 19, 2016 Initial ECG Impression Time: 20:56 Initial ECG Rate: 138 Initial ECG Rhythm: A Fib/Flutter Comment Atrial flutter with 2:[address] depression. EKG : EKG Time: 22:54 Rate: 100 Rhythm: S.Tach Intervals: Normal Comment Sinus tachycardia with no ST elevation or depression. No abnormal intervals or axis deviation. Diagnostic Imaging Diagonstic Imaging: Xray Plain Films/CT/US/NM/MRI: chest Comments Chest x-ray viewed by me and report reviewed. See report below: NAME: CASTRO PADRON [facility] REC#: [id number] PT STATUS: REG ER : 1940 PHYSICIAN: RODOLFO CUELLO MD ADMIT DATE: 09/19/16/ER Draft Date of Exam:09/19/16 CHEST 1 VIEW, AP/PA ONLY INDICATION: Hypotension, tachycardia and chest pain. Comparison is made with prior examination 07/02/16. FINDINGS: There has been previous median sternotomy and coronary bypass graft. Heart size is normal. Lungs are clear. There is no pleural effusion or pneumothorax. Mediastinum is unremarkable. IMPRESSION: No acute cardiopulmonary abnormality. Dict: 09/19/162134 Trans: [id number]/[id number] Interpreted by: MARCUS SUMMERS Communication Communication Dr. Rouse Communication/Consulting Dr. Khalid Impression Impression: Primary Impression: Atrial flutter with rapid ventricular response Additional Impressions: Chest pain Qualified Codes: R07.9 - Chest pain, unspecified Acute renal insufficiency Disposition: ADMITTED INPATIENT Condition: Improved Decision to Admit Reason: Admit from ER (General) Decision to Admit/Date: September 19, 2016 Time/Decision to Admit Time: 21:17 Departure-Patient Inst. Referrals: LLUVIA ROUSE DO (PCP/Family) Primary Care Physician RODOLFO CUELLO MD September 19, 2016 22:49
[2016-09-19 23:20] VITALS: BP 128/83
[2016-09-19] MEDS ORDERED: NS IV 1000 ML 1,000 ML ONE (23:24)
[2016-09-19 23:38] VITALS: BP 124/77
[2016-09-19 23:45] VITALS: BP 106/70
[2016-09-19] MEDS ORDERED: DILTIAZEM DRIP 100 MG/NS 100 ML IV SCH ×2 (23:45)
[2016-09-19] MEDS: NS IV 1000 ML 1,000 ML IV SCH (23:56)
[2016-09-20] VITALS (35 sets, daily range): BP systolic 85–143; BP diastolic 47–94
[2016-09-20 04:41] LABS: ALBUMIN 3.7 G/DL (3.2-4.5); BASOPHILS % (AUTO) 0 % (0-10); BILIRUBIN,TOTAL 0.4 MG/DL (0.1-1.0); CREATININE SERUM 1.58 MG/DL (0.60-1.30); EOSINOPHILS # (AUTO) 0.2 10^3/uL (0.0-0.3); EOSINOPHILS % (AUTO) 2 % (0-10); LYMPHOCYTES # (AUTO) 1.9 X 10^3 (1.0-4.0); LYMPHOCYTES % (AUTO) 25 % (12-44); MEAN CORPUSCULAR HEMOGLOBIN 30 PG (25-34); MEAN CORPUSCULAR HGB CONC 33 G/DL (32-36); MEAN CORPUSCULAR VOLUME 89 FL (80-99); MEAN PLATELET VOLUME 10.6 FL (7.4-10.4); MONOCYTES # (AUTO) 0.6 X 10^3 (0.0-1.0); MONOCYTES % (AUTO) 8 % (0-12); NEUTROPHILS # (AUTO) 4.9 X 10^3 (1.8-7.8); NEUTROPHILS % (AUTO) 65 % (42-75); PLATELET COUNT 250 10^3/uL (130-400); POTASSIUM 3.8 MMOL/L (3.6-5.0); RED BLOOD COUNT 4.12 10^6/uL (4.35-5.85); RED CELL DISTRIBUTION WIDTH 14.4 % (10.0-14.5); TOTAL PROTEIN 6.1 G/DL (6.4-8.2); WHITE BLOOD COUNT 7.6 10^3/uL (4.3-11.0)
[2016-09-20 04:42] LABS: CHOLESTEROL 107 MG/DL (< 200); DIRECT LDL 58 MG/DL (1-129); TRIGLYCERIDES 90 MG/DL (<150); VLDL CHOLESTEROL 18 MG/DL (5-40)
[2016-09-20] MEDS: inSUlin (REGULAR) HUMAN 1 UNIT/0.01 ML (CHARGE PER UNIT) SC SCH ×2 (06:15→11:19)
--- NOTE | 2016-09-20 06:42 | History & Physicial ---
History of Present Illness History of Present Illness Reason for visit/HPI chest pain, blood sugar 62, low blood pressure hypotensive, and heart racing. Patient had upper endoscopy done yesterday at the hospital. Patient told to go home and rest. Instead patient went into the garden and planted A Garden. In the ER EKG shows a flutter with RVR. Patient transferred to ICU. Patient and known diabetic with renal insufficiency area Surgeries back, hernia, and 2 coronary stents. Family history diabetes and heart disease Date of Admission September 19, 2016 at 22:45 I consulted on this patient on 09/20/16 06:37 Attending Physician Chance Ward DO Admitting Physician Chance Ward DO Consult Allergies and Home Medications Allergies Coded Allergies: celecoxib (Unverified Allergy, Mild, TAKES ASPIRIN AT HOME, 12/21/14) diclofenac (Unverified Allergy, Mild, TAKES ASPIRIN AT HOME, 12/21/14) naproxen (Unverified Allergy, Mild, TAKES ASPIRIN AT HOME, 12/21/14) rosuvastatin (Unverified Allergy, Mild, 08/14/08) Penicillins (Verified Allergy, Unknown, 08/03/05) amoxicillin (Verified Allergy, Unknown, 08/03/05) fenofibrate (Unverified Allergy, Unknown, 06/05/16) morphine (Verified Allergy, Unknown, TAKES HYDROCODONE AT HOME, 07/17/14) simvastatin (Unverified Allergy, Unknown, 06/05/16) Uncoded Allergies: GEMIFIBOROZIL (Allergy, Unknown, 06/05/16) Home Medications Apixaban 5 Mg Tablet, 1 TAB PO BID, #60 (Reported) Aspirin 81 Mg Tablet.dr, 81 MG PO DAILY, (Reported) Baclofen 10 Mg Tablet, 1 TAB PO UD, #270 (Reported) Cephalexin 500 Mg Capsule, 1,000 MG PO BID, #40 Ref 0 Prescribed by: JUSTINE TABARES on 09/05/16 1800 Cilostazol 100 Mg Tablet, 1 TAB PO UD, #60 (Reported) Digoxin 125 Mcg Tablet, 125 MCG PO DAILY, (Reported) Enalapril Maleate 10 Mg Tablet, 10 MG PO BID, (Reported) Fenofibrate,Micronized 134 Mg Capsule, 134 MG PO UD, (Reported) Gabapentin 300 Mg Capsule, 600 MG PO HS, (Reported) TAKES 2 (300 MG) CAPSULES Glipizide 10 Mg Tablet, 10 MG PO DAILY, (Reported) Insulin Detemir 100 Unit/1 Ml Insuln.pen, 43 UNIT SQ HS, (Reported) Loratadine 10 Mg Tablet, 10 MG PO DAILY, (Reported) Methylprednisolone 4 Mg Tab.ds.pk, 4 MG PO UD, #1 Prescribed by: ROMAIN KNIGHT on 08/09/16 0603 Metoprolol Tartrate 25 Mg Tablet, 12.5 MG PO DAILY, (Reported) TAKES 1/2 OF A (25 MG) Montelukast Sodium 10 Mg Tablet, 10 MG PO DAILY, (Reported) Nitroglycerin 0.4 Mg Tab.subl, 0.4 MG SL UD PRN for CHEST PAIN, (Reported) [place]-3/Dha/Epa/Fish Oil 1,000 Mg Capsule, 1,000 MG PO BID, (Reported) Pantoprazole Sodium 40 Mg Tablet.dr, 1 TAB PC UD, #90 (Reported) Pentoxifylline 400 Mg Tablet.er, 400 MG PO TID, (Reported) Pravastatin Sodium 80 Mg Tablet, #90 (Reported) Prednisolone Acetate 5 Ml Drops.susp, #10 (Reported) Sitagliptin Phosphate 100 Mg Tablet, 1 TAB PO UD, #90 (Reported) Tamsulosin HCl 0.4 Mg Cap.er.24h, 1 TAB PO UD, #90 (Reported) Trazodone HCl 50 Mg Tablet, 50 MG PO HS, (Reported) Umeclidinium Brm/Vilanterol Tr 1 Each Blst.w.dev, 1 PUFF IH DAILY, (Reported) Past Hbooxhw-Mwosva-Upfkft Hx Patient Social History Marrital Status: Employed/Student: unemployed Alcohol Use: Denies Use Recreational Drug Use: No Former smoker/When Quit: May 31, 1999 Type Used: Cigarettes 2nd Hand Smoke Exposure: Yes Physical Abuse Screen: No Sexual Abuse: No Recent Foreign Travel: No Contact w/other who traveled: No Recent Hopitalizations: No Recent Infectious Disease Expo: No Immunizations Up To Date Tetanus Booster (TDap): Less than 5yrs Date of Pneumonia Vaccine: Jun 14, 2015 Date of Influenza Vaccine: Feb 12, 2016 Seasonal Allergies Seasonal Allergies: Yes Surgeries HX Surgeries: Yes Surgeries: Abdominal, Cardiac, CABG, Coronary Stent, Eye Surgery, Gallbladder, Joint Replacement, Open Heart Surgery, Orthopedic, Vascular Surgery Respiratory Hx Respiratory Disorders: Yes (CHRONIC DYSPNEA ON EXERTION) Cardiovascular Hx Cardiovascular Disorders: Yes Cardiac Disorders: Atrial Fibrillation, Coronary Artery Disease, Heart Attack, High Cholesterol, Hypertension, Peripheral Vascular Neurological Hx Neurological Disorders: Yes (POSSIBLE STROKE/ TIA) Neurological Disorders: Stroke, TIA Reproductive System Hx Reproductive Disorders: No Sexually Transmitted Disease: No HIV/AIDS: No Genitourinary Hx Genitourinary Disorders: Yes (RENAL INSUFFICIENCY) Genitourinary Disorders: Benign Prostatic Hyperpl, Prostate Problems, Renal Failure Gastrointestinal Hx Gastrointestinal Disorders: Yes (GASTROPARESIS; GASTRITIS; DUODENITIS; COLON POLYPECTOMY) Gastrointestinal Disorders: Gastroesophageal Reflux, Pancreatitis, Polyps Musculoskeletal Hx Musculoskeletal Disorders: Yes (OLECRANON BURSITIS, CHRONIC NECK PAIN, DISH SYNDROME) Musculoskeletal Disorders: Degenerate Disk Disease, Arthritis, Chronic Back Pain Endocrine Hx Endocrine Disorders: Yes Endocrine Disorders: Diabetes, Insulin dep HEENT HX ENT Disorders: Yes (SINUS PROBLEMS) HEENT Disorders: Cataract Loss of Vision: Denies Hearing Impairment: Denies Psychosocial Hx Psychiatric Problems: Yes Behavioral Health Disorders: Anxiety Integumentary HX Skin/Integumentary Disorder: No Blood Transfusions Hx Blood Disorders: No Adverse Reaction to a Blood Tr: No Family Medical History Significant Family History: No Pertinent Family Hx Family Hx: Cancer G8 BROTHER Cataract 19 FATHER 19 MOTHER G8 BROTHER G8 BROTHER G8 SISTER Congestive heart failure 19 FATHER 19 MOTHER Family history: Arthritis 19 FATHER 19 MOTHER G8 BROTHER G8 BROTHER G8 SISTER G8 SISTER DAUGHTER SON Family history: Breast disease DAUGHTER Family history: Cardiovascular disease 19 FATHER Family history: Diabetes mellitus 19 FATHER G8 BROTHER G8 SISTER Family history: Hypertension 19 FATHER 19 MOTHER G8 BROTHER G8 BROTHER G8 SISTER G8 SISTER DAUGHTER SON Family history: Thyroid disorder DAUGHTER Heart disease 19 FATHER 19 MOTHER G8 BROTHER Hypercholesterolemia 19 FATHER 19 MOTHER G8 BROTHER G8 BROTHER G8 SISTER Myocardial infarction 19 FATHER 19 MOTHER G8 BROTHER No Family History of: Abdominal aortic aneurysm [place]'s disease Alcoholism Aphasia Cancer of colon Chest pain Congenital heart disease Cystic fibrosis Dementia Dysphagia Family history: Allergy Family history: Alzheimer's disease Family history: Asthma Family history: Coronary thrombosis Family history: Gastrointestinal disease Family history: Glaucoma Family history: Osteoporosis Headache Hearing loss Hereditary disease History of - anemia History of - disorder History of - respiratory disease History of drug abuse Human immunodeficiency virus (HIV) seropositivity Infertile Kidney disease Malignant neoplasm of lung Parkinson's disease Prostate cancer Psychotic disorder Seizure disorder Stroke Tuberculosis Visual impairment Constitutional: weakness EENTM: no symptoms reported Respiratory: no symptoms reported Cardiovascular: chest pain, palpitations Gastrointestinal: no symptoms reported Genitourinary: no symptoms reported Physical Exam Vital Signs Vital Sign - Last 12Hours 09/19/16 20:52 Temp 98.6 Pulse 138 Resp 14 B/P (MAP) 120/81 Pulse Ox 99 O2 Delivery Nasal Cannula O2 Flow Rate 2.00 FiO2 100 Capillary Refill : Less Than 3 Seconds General Appearance: No Apparent Distress, WD/WN Eyes: Bilateral Eye Normal Inspection HEENT: Normal ENT Inspection Neck: Full Range of Motion, Normal Inspection Respiratory: Chest Non Tender, Lungs Clear, Normal Breath Sounds, No Accessory Muscle Use, No Respiratory Distress, Decreased Breath Sounds Cardiovascular: Regular Rate, Rhythm, No Murmur Gastrointestinal: Non Tender, Soft Assessment/Plan Assessment and Plan a flutter with RVR. Hypoglycemia. Diabetes. Hypotension. Noncompliance. Coronary artery disease. Renal insufficiency. Hyperlipidemia Problems: Clinical Quality Measures DVT/VTE Risk/Contraindication: Risk Factor Score Per Nursin RFS Level Per Nursing on Admit: 4+=Very High CHANCE WARD DO September 20, 2016 06:42
[2016-09-20] MEDS ORDERED: meTOprolol TARTRATE 25 MG (LOPRESSOR) TABLET PO SCH (09:00)
[2016-09-20] MEDS ORDERED: APIXABAN 5 MG (ELIQUIS) TABLET PO SCH (09:00)
[2016-09-20] MEDS ORDERED: ASPIRIN 81 MG CHEW (CHILDREN'S ASA) PO SCH (09:00)
[2016-09-20] MEDS ORDERED: DIGOXIN 0.125 MG (LANOXIN) TAB PO SCH (09:00)
[2016-09-20] MEDS: NS IV 1000 ML 1,000 ML IV SCH (09:49)
[2016-09-20] MEDS ORDERED: meTOprolol TARTRATE 25 MG (LOPRESSOR) TABLET PO ONE (10:30)
--- NOTE | 2016-09-20 10:32 | Consultation-Cardiology ---
HPI-Cardiology Cardiology Consultation Date of Consultation 09/20/16 Date of Admission Indication: Aflutter with RVR HPI Patient is a very pleasant 76 y/o male who presented to the ER yesterday with complaints of increased dyspnea and palpitations. Noted his HR to be fast. Underwent EGD yesterday morning and worked in his garden in the afternoon. Began having dyspnea while gardening. Denies any CP. Has history of paroxysmal atrial flutter and has appt with Dr. Grover in in November to discuss possible ablation. Was started on Cardizem in the ER and currently in SR. States he feels better and is asking to go home. next Patient was seen and evaluated with Varsha, a 76-year-old gentleman who underwent EGD yesterday, return to the emergency room with palpitation was in atrial flutter with rapid ventricular response, started on Cardizem drip, by the time he arrived to the ICU he is rhythm was converted to sinus rhythm, has been doing well, feeling well, receiving IV fluid and maintain on low dose Cardizem. Denied any chest pain admit having fatigue and shortness of breath, he is scheduled for EP evaluation for mid-November, I discussed the management plan with Dr. Grover previously, we were able to make him an earlier appointment for this month. Home Medications & Allergies Allergies: Coded Allergies: celecoxib (Unverified Allergy, Mild, TAKES ASPIRIN AT HOME, 12/21/14) diclofenac (Unverified Allergy, Mild, TAKES ASPIRIN AT HOME, 12/21/14) naproxen (Unverified Allergy, Mild, TAKES ASPIRIN AT HOME, 12/21/14) rosuvastatin (Unverified Allergy, Mild, 08/14/08) Penicillins (Verified Allergy, Unknown, 08/03/05) amoxicillin (Verified Allergy, Unknown, 08/03/05) fenofibrate (Unverified Allergy, Unknown, 06/05/16) morphine (Verified Allergy, Unknown, TAKES HYDROCODONE AT HOME, 07/17/14) simvastatin (Unverified Allergy, Unknown, 06/05/16) Uncoded Allergies: GEMIFIBOROZIL (Allergy, Unknown, 06/05/16) Home Medication List Reviewed: Yes medication list reviewed QGJ-Fozcxo-Yajocn Hx Patient Social History Marital Status: Employed/Student: unemployed Alcohol Use: Denies Use Recreational Drug Use: No Former smoker/When Quit: May 31, 1999 Type Used: Cigarettes 2nd Hand Smoke Exposure: Yes Recent Foreign Travel: No Recent Infectious Disease Expo: No Recent Hopitalizations: No Physical Abuse Screen: No Sexual Abuse: No Immunizations Up To Date Tetanus Booster (TDap): Less than 5yrs Date of Pneumonia Vaccine: Jun 14, 2015 Date of Influenza Vaccine: Feb 12, 2016 Past Medical History CAD, PVD, PAF, HTN Family Medical History Significant Family History: No Pertinent Family Hx Family History: Cancer G8 BROTHER Cataract 19 FATHER 19 MOTHER G8 BROTHER G8 BROTHER G8 SISTER Congestive heart failure 19 FATHER 19 MOTHER Family history: Arthritis 19 FATHER 19 MOTHER G8 BROTHER G8 BROTHER G8 SISTER G8 SISTER DAUGHTER SON Family history: Breast disease DAUGHTER Family history: Cardiovascular disease 19 FATHER Family history: Diabetes mellitus 19 FATHER G8 BROTHER G8 SISTER Family history: Hypertension 19 FATHER 19 MOTHER G8 BROTHER G8 BROTHER G8 SISTER G8 SISTER DAUGHTER SON Family history: Thyroid disorder DAUGHTER Heart disease 19 FATHER 19 MOTHER G8 BROTHER Hypercholesterolemia 19 FATHER 19 MOTHER G8 BROTHER G8 BROTHER G8 SISTER Myocardial infarction 19 FATHER 19 MOTHER G8 BROTHER No Family History of: Abdominal aortic aneurysm Fulton's disease Alcoholism Aphasia Cancer of colon Chest pain Congenital heart disease Cystic fibrosis Dementia Dysphagia Family history: Allergy Family history: Alzheimer's disease Family history: Asthma Family history: Coronary thrombosis Family history: Gastrointestinal disease Family history: Glaucoma Family history: Osteoporosis Headache Hearing loss Hereditary disease History of - anemia History of - disorder History of - respiratory disease History of drug abuse Human immunodeficiency virus (HIV) seropositivity Infertile Kidney disease Malignant neoplasm of lung Parkinson's disease Prostate cancer Psychotic disorder Seizure disorder Stroke Tuberculosis Visual impairment Constitutional: No chills, No diaphoresis, No fever, No malaise, No weakness EENTM: No blurred vision, No double vision, No epistaxis, No hearing loss, No nose pain, No throat pain, No vision loss Respiratory: No cough, No dyspnea on exertion, short of breath Cardiovascular: No chest pain, No edema, Hx of Intervention, palpitations, No syncope, vascular heart diseas Gastrointestinal: No abdominal pain, No constipation, No diarrhea Genitourinary: No dysuria, No frequency Musculoskeletal: No back pain Skin: No lesions, No lumps Psychiatric/Neurological: Denies Anxiety, Denies Depressed Reviewed Test Results Reviewed Test Results Lab Laboratory Tests 09/19/16 21:08: White Blood Count 8.2, Red Blood Count 4.41, Hemoglobin 12.9L, Hematocrit 39L, Mean Corpuscular Volume 89, Mean Corpuscular Hemoglobin 29, Mean Corpuscular Hemoglobin Concent 33, Red Cell Distribution Width 14.4, Platelet Count 264, Mean Platelet Volume 10.4, Neutrophils (%) (Auto) 69, Lymphocytes (%) (Auto) 21 , Monocytes (%) (Auto) 8, Eosinophils (%) (Auto) 2, Basophils (%) (Auto) 1, Neutrophils # (Auto) 5.7, Lymphocytes # (Auto) 1.7, Monocytes # (Auto) 0.7, Eosinophils # (Auto) 0.1, Basophils # (Auto) 0.0, Prothrombin Time 17.2H, INR Comment 1.4, Activated Partial Thromboplast Time 31, Sodium Level 137, Potassium Level 3.8, Chloride Level 104, Carbon Dioxide Level 21, Anion Gap 12, Blood Urea Nitrogen 22H, Creatinine 1.94H, Estimat Glomerular Filtration Rate 34 , BUN/Creatinine Ratio 11, Glucose Level 345H, Calcium Level 9.8, Magnesium Level 2.0, Total Bilirubin 0.4, Aspartate Amino Transf (AST/SGOT) 16, Alanine Aminotransferase (ALT/SGPT) 19, Alkaline Phosphatase 57, Myoglobin 79.4, Troponin I < 0.30, Total Protein 7.1, Albumin 4.2, Digoxin Level 0.49L 09/19/16 21:12: Glucometer 314H 09/20/16 03:50: White Blood Count 7.6, Red Blood Count 4.12L, Hemoglobin 12.2L, Hematocrit 37L, Mean Corpuscular Volume 89, Mean Corpuscular Hemoglobin 30, Mean Corpuscular Hemoglobin Concent 33, Red Cell Distribution Width 14.4, Platelet Count 250, Mean Platelet Volume 10.6H, Neutrophils (%) (Auto) 65, Lymphocytes (%) (Auto) 25 , Monocytes (%) (Auto) 8, Eosinophils (%) (Auto) 2, Basophils (%) (Auto) 0, Neutrophils # (Auto) 4.9, Lymphocytes # (Auto) 1.9, Monocytes # (Auto) 0.6, Eosinophils # (Auto) 0.2, Basophils # (Auto) 0.0, Sodium Level 139, Potassium Level 3.8, Chloride Level 109H, Carbon Dioxide Level 21, Anion Gap 9, Blood Urea Nitrogen 19H, Creatinine 1.58H, Estimat Glomerular Filtration Rate 43, BUN/ Creatinine Ratio 12, Glucose Level 174H, Calcium Level 9.0, Total Bilirubin 0.4 , Aspartate Amino Transf (AST/SGOT) 12, Alanine Aminotransferase (ALT/SGPT) 15, Alkaline Phosphatase 50, Total Protein 6.1L, Albumin 3.7, Triglycerides Level 90 , Cholesterol Level 107, LDL Cholesterol Direct 58, VLDL Cholesterol 18, HDL Cholesterol 32L ECG Impression ECG Initial ECG Rhythm: A Fib/Flutter Physical Exam Vital Signs Vital Sign - Last 12Hours 09/19/16 20:52 Temp 98.6 Pulse 138 Resp 14 B/P (MAP) 120/81 Pulse Ox 99 O2 Delivery Nasal Cannula O2 Flow Rate 2.00 FiO2 100 Capillary Refill : Less Than 3 Seconds General Appearance: No Apparent Distress, WD/WN HEENT: PERRL/EOMI, TMs Normal, Pharynx Normal Neck: Full Range of Motion, Normal Inspection, Non Tender, Supple Respiratory: Chest Non Tender, Lungs Clear, Normal Breath Sounds, No Accessory Muscle Use, No Respiratory Distress Cardiovascular: Regular Rate, Rhythm, No Edema, No Gallop, No JVD, No Murmur Gastrointestinal: No Pulsatile Mass, Non Tender, Soft Rectal: Deferred Back: No CVA Tenderness Extremity: No Calf Tenderness Neurologic/Psychiatric: Alert, Oriented x3, registration specialist II-XII Norm as Tested Skin: Normal Color, Warm/Dry Lymphatic: No Adenopathy A/P-Cardiology Admission Diagnosis Paroxysmal atrial flutter CAD PVD HTN Assessment/Plan Paroxysmal atrial flutter-status post Linq implantation. Maintained on Lopressor, digoxin, Multaq, Eliquis. Came in to the ER with Aflutter with RVR. Started on Cardizem drip and converted to sinus rhythm. I will increase Lopressor and continue to monitor. Patient has an appointment with Dr. Grover in November 2016, we will try to get his appt moved to a closer date. Coronary artery disease-2001 history of CABG x4. 04/18/2012 PTCA and stent placement using bare-metal stent 4.0 x 18 mm integrity to the vein graft to the OM..03/01/2016 cardiac catheterization showing severe instent restenosis in the vein graft to the obtuse marginal branch successful balloon angioplasty using 4.020 mm M or balloon expanded to 4.35 with excellent results. Patent vein graft to the right coronary artery, vein graft to the diagonal artery, AMANDA to the LAD with occluded bad [place] band vessel proximally. Continue maximizing medical therapy. History of intolerance to Brilinta causing increased dyspnea. [id number] score of 5, yearly risk of stroke without oral anticoagulation is 6.7 percent. Maintained on Eliquis History of PAT History of carotid stenosis, monitored by heart and vascular. Hypertension, controlled. Continue to monitor blood pressure/heart rate. No changes medications recommended at this time. Hyperlipidemia, lipid profile showed total cholesterol 141, triglyceride 213, HDL 28, LDL 86. Continue on current medications and monitor. Peripheral vascular disease- intervention in March [address] Mckeon, ABIs done May 2015 revealed mild left peripheral artery disease, severe right disease with LISA 0.48. Angiogram in February 2016 showed total occlusion of the posterior tibial artery and peroneal artery at the trifurcation level reconstructed by collateral down at the ankle with occlusion of the anterior tibial artery at the ankle level, moderate peripheral arterial disease on the left lower extremity down to the trifurcation. Continue medical management. Maintained on [place]. History of pancreatitis Degenerative joint disease Diabetes mellitus, followed and managed by primary care physician Thank you for allowing us to participate in the management of Mr. Tolentino. This is Varsha Guerrero PA-C as a scribe for Dr. Stiles. Patient was seen and evaluated with Varsha, I interviewed the patient perform physical examination, and quick summary he is a 76-year-old gentleman with paroxysmal atrial fibrillation/flutter admitted with atrial flutter with rapid ventricular response, converted to sinus rhythm on Cardizem drip, he is feeling better, on examination lungs were clear to auscultation bilaterally, heart is regular rate and rhythm. I instructed him to increase metoprolol from 12.5 mg once a day to 25 mg twice a day, continue on all other medication, continue on oral anticoagulation, I was able to arrange an earlier appointment with EP for evaluation. I discussed with Wilma the management, agree with the current scribe , I made minor modification and use Italic Font Clinical Quality Measures DVT/VTE Risk/Contraindication: Risk Factor Score Per Nursin RFS Level Per Nursing on Admit: 4+=Very High Contraindications-Pharm: Other *list below* VARSHA KAT September 20, 2016 10:32 BISI STILES MD September 20, 2016 11:18
[2016-09-20] MEDS ORDERED: METO-333 PO (11:01)
[2016-09-20] MEDS ORDERED: inSUlin DETERMIR 1 UNIT/0.01 ML (LEVEMIR) CHARGE PER UNIT SQ SCH (21:00)
--- NOTE | 2016-09-22 06:57 | Discharge Summary ---
Diagnosis/Chief Complaint Date of Admission September 19, 2016 at 22:45 Date of Discharge September 20, 2016 at 12:02 Admission Diagnosis Admission Diagnosis a flutter with RVR. Hypoglycemia. Diabetes. Hypotension. Noncompliance. Coronary artery disease. Renal insufficiency. Hyperlipidemia Discharge Diagnosis Chest pain. A. fib flutter with RVR. Hypotension. Hypoglycemia. Diabetes. Noncompliance. Coronary artery disease. Renal insufficiency. Hyperlipidemia. Chronic obstructive pulmonary disease. Reason Hospital Visit chest pain, blood sugar 62, low blood pressure hypotensive, and heart racing. Patient had upper endoscopy done yesterday at the hospital. Patient told to go home and rest. Instead patient went into the garden and planted A Garden. In the ER EKG shows a flutter with RVR. Patient transferred to ICU. Patient and known diabetic with renal insufficiency area Surgeries back, hernia, and 2 coronary stents. Family history diabetes and heart disease Discharge Summary Consultations Cardiology Discharge Physical Examination Allergies: Coded Allergies: celecoxib (Unverified Allergy, Mild, TAKES ASPIRIN AT HOME, 12/21/14) diclofenac (Unverified Allergy, Mild, TAKES ASPIRIN AT HOME, 12/21/14) naproxen (Unverified Allergy, Mild, TAKES ASPIRIN AT HOME, 12/21/14) rosuvastatin (Unverified Allergy, Mild, 08/14/08) Penicillins (Verified Allergy, Unknown, 08/03/05) amoxicillin (Verified Allergy, Unknown, 08/03/05) fenofibrate (Unverified Allergy, Unknown, 06/05/16) morphine (Verified Allergy, Unknown, TAKES HYDROCODONE AT HOME, 07/17/14) simvastatin (Unverified Allergy, Unknown, 06/05/16) Uncoded Allergies: GEMIFIBOROZIL (Allergy, Unknown, 06/05/16) Vitals & I&Os Vital Signs Date Time Temp Pulse Resp B/P (MAP) Pulse Ox O2 Delivery O2 Flow Rate FiO2 09/20/16 12:02 57 10 130/86 97 95 09/20/16 11:30 Room Air 09/20/16 09:46 96.3 09/20/16 09:15 2.00 Hospital Course Patient consulted by cardiology. Patient converted to sinus rhythm. Okay with cardiology for discharge today Labs (last 24 hrs) Laboratory Tests 09/19/16 21:08: White Blood Count 8.2, Red Blood Count 4.41, Hemoglobin 12.9L, Hematocrit 39L, Mean Corpuscular Volume 89, Mean Corpuscular Hemoglobin 29, Mean Corpuscular Hemoglobin Concent 33, Red Cell Distribution Width 14.4, Platelet Count 264, Mean Platelet Volume 10.4, Neutrophils (%) (Auto) 69, Lymphocytes (%) (Auto) 21 , Monocytes (%) (Auto) 8, Eosinophils (%) (Auto) 2, Basophils (%) (Auto) 1, Neutrophils # (Auto) 5.7, Lymphocytes # (Auto) 1.7, Monocytes # (Auto) 0.7, Eosinophils # (Auto) 0.1, Basophils # (Auto) 0.0, Prothrombin Time 17.2H, INR Comment 1.4, Activated Partial Thromboplast Time 31, Sodium Level 137, Potassium Level 3.8, Chloride Level 104, Carbon Dioxide Level 21, Anion Gap 12, Blood Urea Nitrogen 22H, Creatinine 1.94H, Estimat Glomerular Filtration Rate 34 , BUN/Creatinine Ratio 11, Glucose Level 345H, Calcium Level 9.8, Magnesium Level 2.0, Total Bilirubin 0.4, Aspartate Amino Transf (AST/SGOT) 16, Alanine Aminotransferase (ALT/SGPT) 19, Alkaline Phosphatase 57, Myoglobin 79.4, Troponin I < 0.30, Total Protein 7.1, Albumin 4.2, Digoxin Level 0.49L 09/19/16 21:12: Glucometer 314H 09/20/16 03:50: White Blood Count 7.6, Red Blood Count 4.12L, Hemoglobin 12.2L, Hematocrit 37L, Mean Corpuscular Volume 89, Mean Corpuscular Hemoglobin 30, Mean Corpuscular Hemoglobin Concent 33, Red Cell Distribution Width 14.4, Platelet Count 250, Mean Platelet Volume 10.6H, Neutrophils (%) (Auto) 65, Lymphocytes (%) (Auto) 25 , Monocytes (%) (Auto) 8, Eosinophils (%) (Auto) 2, Basophils (%) (Auto) 0, Neutrophils # (Auto) 4.9, Lymphocytes # (Auto) 1.9, Monocytes # (Auto) 0.6, Eosinophils # (Auto) 0.2, Basophils # (Auto) 0.0, Sodium Level 139, Potassium Level 3.8, Chloride Level 109H, Carbon Dioxide Level 21, Anion Gap 9, Blood Urea Nitrogen 19H, Creatinine 1.58H, Estimat Glomerular Filtration Rate 43, BUN/ Creatinine Ratio 12, Glucose Level 174H, Calcium Level 9.0, Total Bilirubin 0.4 , Aspartate Amino Transf (AST/SGOT) 12, Alanine Aminotransferase (ALT/SGPT) 15, Alkaline Phosphatase 50, Total Protein 6.1L, Albumin 3.7, Triglycerides Level 90 , Cholesterol Level 107, LDL Cholesterol Direct 58, VLDL Cholesterol 18, HDL Cholesterol 32L Microbiology 09/19/16 MRSA Screen - Final, Complete MRSA not isolated Laboratory Tests 09/19/16 21:08 09/20/16 03:50 Pending Labs Microbiology Date/Time Source Procedure Growth Status 09/19/16 00:00 Nasal MRSA Screen - Final MRSA not isolated Complete Laboratory Tests 09/19/16 21:08: White Blood Count 8.2, Red Blood Count 4.41, Hemoglobin 12.9, Hematocrit 39, Mean Corpuscular Volume 89, Mean Corpuscular Hemoglobin 29, Mean Corpuscular Hemoglobin Concent 33, Red Cell Distribution Width 14.4, Platelet Count 264, Mean Platelet Volume 10.4, Neutrophils (%) (Auto) 69, Lymphocytes (%) (Auto) 21 , Monocytes (%) (Auto) 8, Eosinophils (%) (Auto) 2, Basophils (%) (Auto) 1, Neutrophils # (Auto) 5.7, Lymphocytes # (Auto) 1.7, Monocytes # (Auto) 0.7, Eosinophils # (Auto) 0.1, Basophils # (Auto) 0.0, Prothrombin Time 17.2, INR Comment 1.4, Activated Partial Thromboplast Time 31, Sodium Level 137, Potassium Level 3.8, Chloride Level 104, Carbon Dioxide Level 21, Anion Gap 12, Blood Urea Nitrogen 22, Creatinine 1.94, Estimat Glomerular Filtration Rate 34, BUN/Creatinine Ratio 11, Glucose Level 345, Calcium Level 9.8, Magnesium Level 2.0, Total Bilirubin 0.4, Aspartate Amino Transf (AST/SGOT) 16, Alanine Aminotransferase (ALT/SGPT) 19, Alkaline Phosphatase 57, Myoglobin 79.4, Troponin I < 0.30, Total Protein 7.1, Albumin 4.2, Digoxin Level 0.49 09/19/16 21:12: Glucometer 314 09/20/16 03:50: White Blood Count 7.6, Red Blood Count 4.12, Hemoglobin 12.2, Hematocrit 37, Mean Corpuscular Volume 89, Mean Corpuscular Hemoglobin 30, Mean Corpuscular Hemoglobin Concent 33, Red Cell Distribution Width 14.4, Platelet Count 250, Mean Platelet Volume 10.6, Neutrophils (%) (Auto) 65, Lymphocytes (%) (Auto) 25 , Monocytes (%) (Auto) 8, Eosinophils (%) (Auto) 2, Basophils (%) (Auto) 0, Neutrophils # (Auto) 4.9, Lymphocytes # (Auto) 1.9, Monocytes # (Auto) 0.6, Eosinophils # (Auto) 0.2, Basophils # (Auto) 0.0, Sodium Level 139, Potassium Level 3.8, Chloride Level 109, Carbon Dioxide Level 21, Anion Gap 9, Blood Urea Nitrogen 19, Creatinine 1.58, Estimat Glomerular Filtration Rate 43, BUN/ Creatinine Ratio 12, Glucose Level 174, Calcium Level 9.0, Total Bilirubin 0.4, Aspartate Amino Transf (AST/SGOT) 12, Alanine Aminotransferase (ALT/SGPT) 15, Alkaline Phosphatase 50, Total Protein 6.1, Albumin 3.7, Triglycerides Level 90 , Cholesterol Level 107, LDL Cholesterol Direct 58, VLDL Cholesterol 18, HDL Cholesterol 32 Radiology Reviewed Chest x-ray no acute cardiopulmonary disease Discharge Home Medications: Active Scripts Active Metoprolol Tartrate 25 Mg Tablet 25 Mg PO BID 30 Days Keflex (Cephalexin) 500 Mg Capsule 1,000 Mg PO BID Medrol (Methylprednisolone) 4 Mg Tab.ds.pk 4 Mg PO UD Reported Prednisolone Acetate 5 Ml Drops.susp Pravastatin Sodium 80 Mg Tablet Januvia (Sitagliptin Phosphate) 100 Mg Tablet 1 Tab PO UD Eliquis (Apixaban) 5 Mg Tablet 1 Tab PO BID Tamsulosin HCl 0.4 Mg Cap.er.24h 1 Tab PO UD Pantoprazole Sodium 40 Mg Tablet.dr 1 Tab PC UD Fenofibrate (Fenofibrate,Micronized) 134 Mg Capsule 134 Mg PO UD Baclofen 10 Mg Tablet 1 Tab PO UD Cilostazol 100 Mg Tablet 1 Tab PO UD Anoro Ellipta 62.5-25 Mcg INH (Umeclidinium Brm/Vilanterol Tr) 1 Each Blst.w.dev 1 Puff IH DAILY Loratadine 10 Mg Tablet 10 Mg PO DAILY Pentoxifylline 400 Mg Tablet.er 400 Mg PO TID Nitrostat (Nitroglycerin) 0.4 Mg Tab.subl 0.4 Mg SL UD PRN Montelukast Sodium 10 Mg Tablet 10 Mg PO DAILY Digoxin 125 Mcg Tablet 125 Mcg PO DAILY Glipizide 10 Mg Tablet 10 Mg PO DAILY Gabapentin 300 Mg Capsule 600 Mg PO HS TAKES 2 (300 MG) CAPSULES Trazodone HCl 50 Mg Tablet 50 Mg PO HS Enalapril Maleate 10 Mg Tablet 10 Mg PO BID Levemir Flextouch (Insulin Detemir) 100 Unit/1 Ml Insuln.pen 43 Unit SQ HS Fish Oil 1,000 Mg Softgel ([place]-3/Dha/Epa/Fish Oil) 1,000 Mg Capsule 1,000 Mg PO BID Aspir 81 (Aspirin) 81 Mg Tablet.dr 81 Mg PO DAILY Instructions to patient/family Please see electonic discharge instructions given to patient. Clinical Quality Measures DVT/VTE Risk/Contraindication: Risk Factor Score Per Nursin RFS Level Per Nursing on Admit: 4+=Very High Contraindications-Pharm: Other *list below* LLUVIA ROUSE DO September 22, 2016 06:57
[2016-09-22] MEDS ORDERED: ENAL5TAB PO (10:13)
[2016-09-22] MEDS ORDERED: METO-333 PO (10:13)
[2016-09-22] MEDS ORDERED: FLUT16SP22 NS (10:13)
[2016-09-22] MEDS ORDERED: DRON400T2 PO (10:13)
== END 2016-09-20 12:02 | disposition home or self-care (01) | DRG 310 ==
LOC: EDUNIT# 20:50 → ER 20:52 → ICU 22:45
PROVIDERS: ADMIT Family Medicine; ATTEND Family Medicine
DX: I48.92 Unspecified atrial flutter (principal); R07.9 Chest pain, unspecified; I48.0 Paroxysmal atrial fibrillation; E11.649 Type 2 diabetes mellitus with hypoglycemia without coma; I95.9 Hypotension, unspecified; I25.10 Atherosclerotic heart disease of native coronary artery without angina pectoris; N28.9 Disorder of kidney and ureter, unspecified; E78.5 Hyperlipidemia, unspecified; J44.9 Chronic obstructive pulmonary disease, unspecified; G47.30 Sleep apnea, unspecified; I10 Essential (primary) hypertension; E11.51 Type 2 diabetes mellitus with diabetic peripheral angiopathy without gangrene; F41.9 Anxiety disorder, unspecified; E11.43 Type 2 diabetes mellitus with diabetic autonomic (poly)neuropathy; M48.10 Ankylosing hyperostosis [Forestier], site unspecified; M19.91 Primary osteoarthritis, unspecified site; K21.9 Gastro-esophageal reflux disease without esophagitis; I73.9 Peripheral vascular disease, unspecified; I77.9 Disorder of arteries and arterioles, unspecified; I25.2 Old myocardial infarction; Z91.19 Patient's noncompliance with other medical treatment and regimen; Z98.890 Other specified postprocedural states; Z95.1 Presence of aortocoronary bypass graft; Z95.5 Presence of coronary angioplasty implant and graft; Z79.4 Long term (current) use of insulin; Z86.73 Personal history of transient ischemic attack (TIA), and cerebral infarction without residual deficits; Z87.891 Personal history of nicotine dependence
CPT/HCPCS: 36415; 71010; 80053; 80061; 80162; 82962; 83735; 83874; 84484; 85025; 85610; 85730; 87081; 93005; 93041

== ENCOUNTER 2016-09-22 05:16 | Day surgery (SDC) | payer MEDICARE, MEDICAID ==
[~2016-09-22] VITALS: Ht 182.9 cm; Wt 87.8 kg
[2016-09-22] VITALS (12 sets, daily range): BP systolic 99–180; BP diastolic 65–119
[2016-09-22 05:36] LABS: BASOPHILS % (AUTO) 0 % (0-10); EOSINOPHILS # (AUTO) 0.2 10^3/uL (0.0-0.3); EOSINOPHILS % (AUTO) 3 % (0-10); LYMPHOCYTES # (AUTO) 2.8 X 10^3 (1.0-4.0); LYMPHOCYTES % (AUTO) 34 % (12-44); MEAN CORPUSCULAR HEMOGLOBIN 29 PG (25-34); MEAN CORPUSCULAR HGB CONC 33 G/DL (32-36); MEAN CORPUSCULAR VOLUME 88 FL (80-99); MEAN PLATELET VOLUME 10.4 FL (7.4-10.4); MONOCYTES # (AUTO) 0.8 X 10^3 (0.0-1.0); MONOCYTES % (AUTO) 10 % (0-12); NEUTROPHILS # (AUTO) 4.3 X 10^3 (1.8-7.8); NEUTROPHILS % (AUTO) 53 % (42-75); PLATELET COUNT 273 10^3/uL (130-400); RED BLOOD COUNT 4.58 10^6/uL (4.35-5.85); RED CELL DISTRIBUTION WIDTH 14.3 % (10.0-14.5); WHITE BLOOD COUNT 8.1 10^3/uL (4.3-11.0)
[2016-09-22 05:53] LABS: INR 1.2 (0.8-1.4); PROTHROMBIN TIME PATIENT 14.4 SEC (12.2-14.7)
[2016-09-22 06:07] LABS: ALANINE AMINOTRANSFERASE 17 U/L (0-55); ALBUMIN 4.1 G/DL (3.2-4.5); ANION GAP 10 MMOL/L (5-14); ASPARTATE AMINO TRANSFERASE 14 U/L (5-34); BILIRUBIN,TOTAL 0.4 MG/DL (0.1-1.0); BLOOD UREA NITROGEN 18 MG/DL (7-18); BUN/CREATININE RATIO 11; CALCIUM 10.2 MG/DL (8.5-10.1); CARBON DIOXIDE 23 MMOL/L (21-32); CHLORIDE 105 MMOL/L (98-107); CREATININE SERUM 1.67 MG/DL (0.60-1.30); GFR ESTIMATED 40; GLUCOSE 209 MG/DL (70-105); MAGNESIUM 1.9 MG/DL (1.8-2.4); POTASSIUM 3.7 MMOL/L (3.6-5.0); SODIUM 138 MMOL/L (135-145)
--- NOTE | 2016-09-22 06:08 | ED Chest Pain ---
General Chief Complaint: Chest Pain Stated Complaint: CHEST PAIN Nursing Triage Note: woke up with substernal/epigastric pain approx. 0400. brought in by [facility]. Nursing Sepsis Screen: No Definite Risk Source: patient Exam Limitations: no limitations History of Present Illness Time seen by provider: 05:18 Initial Comments This 72 for a gentleman presents to the emergency room with complaints of chest pain and racing/fluttering heart that woke him at about 04:00. He reports pain is described as a chest pressure of about 7/10. EMS administered aspirin 324 mg and nitroglycerin 3. Patient appeared to have an irregular heart rhythm. He does have a history of atrial fibrillation and in fact was recently admitted for atrial flutter with rapid conduction and RVR. During that admission he rapidly converted to sinus rhythm on a Cardizem drip. He has a pending consultation with Dr. Clayton for possible ablation therapy. Patient reported pain improved to 2/10 with EMS interventions. By the time of arrival and my assessment, he was in sinus rhythm and had no complaints. Pain had completely resolved. ASA po DOLL WIG MAKER: Yes NTG SL DOLL WIG MAKER: Yes Allergies and Home Medications Allergies Coded Allergies: celecoxib (Unverified Allergy, Mild, TAKES ASPIRIN AT HOME, 12/21/14) diclofenac (Unverified Allergy, Mild, TAKES ASPIRIN AT HOME, 12/21/14) naproxen (Unverified Allergy, Mild, TAKES ASPIRIN AT HOME, 12/21/14) rosuvastatin (Unverified Allergy, Mild, 08/14/08) Penicillins (Verified Allergy, Unknown, 08/03/05) amoxicillin (Verified Allergy, Unknown, 08/03/05) fenofibrate (Unverified Allergy, Unknown, 06/05/16) morphine (Verified Allergy, Unknown, TAKES HYDROCODONE AT HOME, 07/17/14) simvastatin (Unverified Allergy, Unknown, 06/05/16) Uncoded Allergies: GEMIFIBOROZIL (Allergy, Unknown, 06/05/16) Home Medications Apixaban 5 Mg Tablet, 1 TAB PO BID, #60 (Reported) Aspirin 81 Mg Tablet., 81 MG PO DAILY, (Reported) Baclofen 10 Mg Tablet, 1 TAB PO UD, #270 (Reported) Cephalexin 500 Mg Capsule, 1,000 MG PO BID, #40 Ref 0 Prescribed by: JUSTINE TABARES on 09/05/16 1800 Cilostazol 100 Mg Tablet, 1 TAB PO UD, #60 (Reported) Digoxin 125 Mcg Tablet, 125 MCG PO DAILY, (Reported) Enalapril Maleate 10 Mg Tablet, 10 MG PO BID, (Reported) Fenofibrate,Micronized 134 Mg Capsule, 134 MG PO UD, (Reported) Gabapentin 300 Mg Capsule, 600 MG PO HS, (Reported) TAKES 2 (300 MG) CAPSULES Glipizide 10 Mg Tablet, 10 MG PO DAILY, (Reported) Insulin Detemir 100 Unit/1 Ml Insuln.pen, 43 UNIT SQ HS, (Reported) Loratadine 10 Mg Tablet, 10 MG PO DAILY, (Reported) Methylprednisolone 4 Mg Tab.ds.pk, 4 MG PO UD, #1 Prescribed by: ROMAIN KNIGHT on 08/09/16 0603 Metoprolol Tartrate 25 Mg Tablet, 25 MG PO BID for 30 Days, #60 Ref 5 Prescribed by: RADHA GARCÍA on 09/20/16 1101 Montelukast Sodium 10 Mg Tablet, 10 MG PO DAILY, (Reported) Nitroglycerin 0.4 Mg Tab.subl, 0.4 MG SL UD PRN for CHEST PAIN, (Reported) [place]-3/Dha/Epa/Fish Oil 1,000 Mg Capsule, 1,000 MG PO BID, (Reported) Pantoprazole Sodium 40 Mg Tablet.dr, 1 TAB PC UD, #90 (Reported) Pentoxifylline 400 Mg Tablet.er, 400 MG PO TID, (Reported) Pravastatin Sodium 80 Mg Tablet, #90 (Reported) Prednisolone Acetate 5 Ml Drops.susp, #10 (Reported) Sitagliptin Phosphate 100 Mg Tablet, 1 TAB PO UD, #90 (Reported) Tamsulosin HCl 0.4 Mg Cap.er.24h, 1 TAB PO UD, #90 (Reported) Trazodone HCl 50 Mg Tablet, 50 MG PO HS, (Reported) Umeclidinium Brm/Vilanterol Tr 1 Each Blst.w.dev, 1 PUFF IH DAILY, (Reported) Review of Systems Constitutional: no symptoms reported EENTM: No Symptoms Reported Respiratory: No Symptoms Reported Cardiovascular: See HPI Gastrointestinal: No Symptoms Reported Genitourinary: No Symptoms Reported Musculoskeletal: no symptoms reported Skin: no symptoms reported Psychiatric/Neurological: No Symptoms Reported Endocrine: No Symptoms Reported Hematologic/Lymphatic: No Symptoms Reported Past Wwiacmw-Ikgksy-Fjmhkb Hx Patient Social History Alcohol Use: Occasionally Uses Recreational Drug Use: No Smoking Status: Former Smoker Type Used: Cigarettes Former Smoker/When Quit: May 31, 1999 2nd Hand Smoke Exposure: Yes Recent Foreign Travel: No Contact w/Someone Who Travel: No Recent Infectious Disease Expo: No Recent Hopitalizations: No Immunizations Up To Date Tetanus Booster (TDap): Less than 5yrs PED Vaccines UTD: No Date of Pneumonia Vaccine: Jun 14, 2015 Date of Influenza Vaccine: Feb 12, 2016 Seasonal Allergies Seasonal Allergies: Yes Surgeries HX Surgeries: Yes Surgeries: Abdominal, Cardiac, CABG, Coronary Stent, Eye Surgery, Gallbladder, Joint Replacement, Open Heart Surgery, Orthopedic, Vascular Surgery Respiratory Hx Respiratory Disorders: Yes (CHRONIC DYSPNEA ON EXERTION) Respiratory Disorders: Sleep Apnea, COPD Cardiovascular Hx Cardiac Disorders: Yes Cardiac Disorders: Atrial Fibrillation, Coronary Artery Disease, Heart Attack, High Cholesterol, Hypertension, Peripheral Vascular Neurological Hx Neurological Disorders: Yes (POSSIBLE STROKE/ TIA) Neurological Disorders: Stroke, TIA Reproductive System Hx Reproductive Disorders: No Sexually Transmitted Disease: No HIV/AIDS: No Genitourinary Hx Genitourinary Disorders: Yes (RENAL INSUFFICIENCY) Genitourinary Disorders: Benign Prostatic Hyperpl, Prostate Problems, Renal Failure Gastrointestinal Hx Gastrointestinal Disorders: Yes (GASTROPARESIS; GASTRITIS; DUODENITIS; COLON POLYPECTOMY) Gastrointestinal Disorders: Gastroesophageal Reflux, Pancreatitis, Polyps Musculoskeletal Hx Musculoskeletal Disorders: Yes (OLECRANON BURSITIS, CHRONIC NECK PAIN, DISH SYNDROME) Musculoskeletal Disorders: Degenerate Disk Disease, Arthritis, Chronic Back Pain Endocrine Hx Endocrine Disorders: Yes Endocrine Disorders: Diabetes, Insulin dep HEENT HX ENT Disorders: Yes (SINUS PROBLEMS) HEENT Disorders: Cataract Loss of Vision: Denies Hearing Impairment: Denies Psychosocial Hx Psychiatric Problems: Yes Behavioral Health Disorders: Anxiety Integumentary HX Skin/Integumentary Disorder: No Blood Transfusions Hx Blood Disorders: No Adverse Reaction to a Blood Tr: No Family Medical History Significant Family History: No Pertinent Family Hx Family Medial History: Cancer G8 BROTHER Cataract 19 FATHER 19 MOTHER G8 BROTHER G8 BROTHER G8 SISTER Congestive heart failure 19 FATHER 19 MOTHER Family history: Arthritis 19 FATHER 19 MOTHER G8 BROTHER G8 BROTHER G8 SISTER G8 SISTER DAUGHTER SON Family history: Breast disease DAUGHTER Family history: Cardiovascular disease 19 FATHER Family history: Diabetes mellitus 19 FATHER G8 BROTHER G8 SISTER Family history: Hypertension 19 FATHER 19 MOTHER G8 BROTHER G8 BROTHER G8 SISTER G8 SISTER DAUGHTER SON Family history: Thyroid disorder DAUGHTER Heart disease 19 FATHER 19 MOTHER G8 BROTHER Hypercholesterolemia 19 FATHER 19 MOTHER G8 BROTHER G8 BROTHER G8 SISTER Myocardial infarction 19 FATHER 19 MOTHER G8 BROTHER No Family History of: Abdominal aortic aneurysm Robel's disease Alcoholism Aphasia Cancer of colon Chest pain Congenital heart disease Cystic fibrosis Dementia Dysphagia Family history: Allergy Family history: Alzheimer's disease Family history: Asthma Family history: Coronary thrombosis Family history: Gastrointestinal disease Family history: Glaucoma Family history: Osteoporosis Headache Hearing loss Hereditary disease History of - anemia History of - disorder History of - respiratory disease History of drug abuse Human immunodeficiency virus (HIV) seropositivity Infertile Kidney disease Malignant neoplasm of lung Parkinson's disease Prostate cancer Psychotic disorder Seizure disorder Stroke Tuberculosis Visual impairment Physical Exam Vital Signs Vital Sign - Last 12Hours Capillary Refill : Less Than 3 Seconds General Appearance: No Apparent Distress, WD/WN HEENT: PERRL/EOMI, Normal ENT Inspection Neck: Normal Inspection Respiratory: Lungs Clear, Normal Breath Sounds, No Accessory Muscle Use, No Respiratory Distress Cardiovascular: Regular Rate, Rhythm, No Edema, No Murmur Gastrointestinal: Normal Bowel Sounds, Non Tender, Soft Extremity: Normal Inspection, No Pedal Edema Neurologic/Psychiatric: Alert, Oriented x3, No Motor/Sensory Deficits, Normal Mood/Affect, porter bath II-XII Norm as Tested Skin: Normal Color, Warm/Dry Progress/Results/Core Measures Results/Orders Lab Results Laboratory Tests Test 09/22/16 05:20 Range/Units White Blood Count 8.1 4.3-11.0 10^3/uL Red Blood Count 4.58 4.35-5.85 10^6/uL Hemoglobin 13.4 13.3-17.7 G/DL Hematocrit 41 40-54 % Mean Corpuscular Volume 88 80-99 FL Mean Corpuscular Hemoglobin 29 25-34 PG Mean Corpuscular Hemoglobin Concent 33 32-36 G/DL Red Cell Distribution Width 14.3 10.0-14.5 % Platelet Count 273 130-400 10^3/uL Mean Platelet Volume 10.4 7.4-10.4 FL Neutrophils (%) (Auto) 53 42-75 % Lymphocytes (%) (Auto) 34 12-44 % Monocytes (%) (Auto) 10 0-12 % Eosinophils (%) (Auto) 3 0-10 % Basophils (%) (Auto) 0 0-10 % Neutrophils # (Auto) 4.3 1.8-7.8 X 10^3 Lymphocytes # (Auto) 2.8 1.0-4.0 X 10^3 Monocytes # (Auto) 0.8 0.0-1.0 X 10^3 Eosinophils # (Auto) 0.2 0.0-0.3 10^3/uL Basophils # (Auto) 0.0 0.0-0.1 10^3/uL Prothrombin Time 14.4 12.2-14.7 SEC INR Comment 1.2 0.8-1.4 Activated Partial Thromboplast Time 30 24-35 SEC Sodium Level 138 135-145 MMOL/L Potassium Level 3.7 3.6-5.0 MMOL/L Chloride Level 105 98-107 MMOL/L Carbon Dioxide Level 23 21-32 MMOL/L Anion Gap 10 5-14 MMOL/L Blood Urea Nitrogen 18 7-18 MG/DL Creatinine 1.67 H 0.60-1.30 MG/DL Estimat Glomerular Filtration Rate 40 BUN/Creatinine Ratio 11 Glucose Level 209 H 70-105 MG/DL Calcium Level 10.2 H 8.5-10.1 MG/DL Magnesium Level 1.9 1.8-2.4 MG/DL Total Bilirubin 0.4 0.1-1.0 MG/DL Aspartate Amino Transf (AST/SGOT) 14 5-34 U/L Alanine Aminotransferase (ALT/SGPT) 17 0-55 U/L Alkaline Phosphatase 59 40-136 U/L Myoglobin 57.0 10.0-92.0 NG/ML Troponin I < 0.30 <0.30 NG/ML Total Protein 7.0 6.4-8.2 G/DL Albumin 4.1 3.2-4.5 G/DL My Orders Orders - RODOLFO CUELLO MD Cbc With Automated Diff (09/22/16 05:26) Magnesium (09/22/16 05:26) Chest 1 View, Ap/Pa Only (09/22/16 05:26) Ekg Tracing (09/22/16 05:26) Cardiac Profile 1 (09/22/16 05:26) Comprehensive Metabolic Panel (09/22/16 05:26) Myoglobin Serum (09/22/16 05:26) Protime With Inr (09/22/16 05:26) Partial Thromboplastin Time (09/22/16 05:26) O2 (09/22/16 05:26) Monitor-Rhythm Ecg Trace Only (09/22/16 05:26) Lipid Panel (09/23/16 06:00) Saline Lock/Iv-Start (09/22/16 05:26) Vital Signs/I&O Vital Sign - Last 12Hours 09/22/16 09/22/16 09/22/16 09/22/16 05:29 05:29 05:29 06:23 Temp 97.9 Pulse 98 90 Resp 19 12 B/P (MAP) 113/68 99/68 Pulse Ox 93 95 95 O2 Delivery Room Air Nasal Cannula Room Air Room Air Blood Pressure Mean: 83 Progress Note : Time: 07:24 Progress Note Patient remained pain free. I discussed the case with Dr. Stiles. Although patient has had recurrent episodes of A. fib, this time he had arrhythmia with chest pain. This is concerning given the prior heart catheter he had in which angioplasty was required in the vein graft. Dr. Stiles requests that the patient be admitted for cardiac rule out and possibly repeat catheterization. Dr. Tilley was consulted and case reviewed. ECG Initial ECG Impression Date: September 22, 2016 Initial ECG Impression Time: 05:29 Initial ECG Rate: 93 Initial ECG Rhythm: Normal Sinus Comment Sinus rhythm with no ST elevation or depression. Pre-atrial complexes. No abnormal intervals or axis deviation. Departure Communication Time/Spoke to Admitting Phy: 07:[address] Rouse Time/Spoke to Consulting Physi: 07:10 Communication/Consulting Dr. Tilley Impression Impression: Primary Impression: Chest pain Qualified Codes: R07.9 - Chest pain, unspecified Additional Impression: Paroxysmal atrial fibrillation Disposition: ADMITTED INPATIENT Condition: Improved Time/Decision to Admit Time: 07:00 Departure-Patient Inst. Referrals: LLUVIA ROUSE DO (PCP/Family) Primary Care Physician RODOLFO CUELLO MD September 22, 2016 06:07
--- NOTE | 2016-09-22 06:31 | Diagnostic Imaging Report ---
INDICATION: Chest pain new onset 2 hours ago. COMPARISON STUDY: Chest from September 19. FINDINGS: Portable view of the chest demonstrates previous sternotomy changes with a cardiac rehabilitation program director in place. Heart size and vascularity are normal. The lungs are clear. IMPRESSION: There are no acute findings. Dictated by: Dictated on workstation # [id number]
--- NOTE | 2016-09-22 08:37 | History & Physicial ---
History of Present Illness History of Present Illness Reason for visit/HPI Patient woke up at 4 a.m. with chest pain. Patient felt his heart was fluttering. Patient was released yesterday from hospital in sinus rhythm. Patient yesterday had a flutter with RVR. When patient was discharged he felt good. Patient has a history of renal insufficiency and diabetes and coronary artery disease and stents. Patient admitted to ICU Date of Admission September 22, 2016 at 07:10 I consulted on this patient on 09/22/16 08:34 Attending Physician Lluvia Rouse DO Admitting Physician Lluvia Rouse DO Consult Allergies and Home Medications Allergies Coded Allergies: celecoxib (Unverified Allergy, Mild, TAKES ASPIRIN AT HOME, 12/21/14) diclofenac (Unverified Allergy, Mild, TAKES ASPIRIN AT HOME, 12/21/14) naproxen (Unverified Allergy, Mild, TAKES ASPIRIN AT HOME, 12/21/14) rosuvastatin (Unverified Allergy, Mild, 08/14/08) Penicillins (Verified Allergy, Unknown, 08/03/05) amoxicillin (Verified Allergy, Unknown, 08/03/05) fenofibrate (Unverified Allergy, Unknown, 06/05/16) morphine (Verified Allergy, Unknown, TAKES HYDROCODONE AT HOME, 07/17/14) simvastatin (Unverified Allergy, Unknown, 06/05/16) Uncoded Allergies: GEMIFIBOROZIL (Allergy, Unknown, 06/05/16) Home Medications Apixaban 5 Mg Tablet, 1 TAB PO BID, #60 (Reported) Aspirin 81 Mg Tablet.dr, 81 MG PO DAILY, (Reported) Baclofen 10 Mg Tablet, 1 TAB PO UD, #270 (Reported) Cephalexin 500 Mg Capsule, 1,000 MG PO BID, #40 Ref 0 Prescribed by: JUSTINE TABARES on 09/05/16 1800 Cilostazol 100 Mg Tablet, 1 TAB PO UD, #60 (Reported) Digoxin 125 Mcg Tablet, 125 MCG PO DAILY, (Reported) Enalapril Maleate 10 Mg Tablet, 10 MG PO BID, (Reported) Fenofibrate,Micronized 134 Mg Capsule, 134 MG PO UD, (Reported) Gabapentin 300 Mg Capsule, 600 MG PO HS, (Reported) TAKES 2 (300 MG) CAPSULES Glipizide 10 Mg Tablet, 10 MG PO DAILY, (Reported) Insulin Detemir 100 Unit/1 Ml Insuln.pen, 43 UNIT SQ HS, (Reported) Loratadine 10 Mg Tablet, 10 MG PO DAILY, (Reported) Methylprednisolone 4 Mg Tab.ds.pk, 4 MG PO UD, #1 Prescribed by: ROMAIN KNIGHT on 08/09/16 0603 Metoprolol Tartrate 25 Mg Tablet, 25 MG PO BID for 30 Days, #60 Ref 5 Prescribed by: RADHA GARCÍA on 09/20/16 1101 Montelukast Sodium 10 Mg Tablet, 10 MG PO DAILY, (Reported) Nitroglycerin 0.4 Mg Tab.subl, 0.4 MG SL UD PRN for CHEST PAIN, (Reported) [place]-3/Dha/Epa/Fish Oil 1,000 Mg Capsule, 1,000 MG PO BID, (Reported) Pantoprazole Sodium 40 Mg Tablet.dr, 1 TAB PC UD, #90 (Reported) Pentoxifylline 400 Mg Tablet.er, 400 MG PO TID, (Reported) Pravastatin Sodium 80 Mg Tablet, #90 (Reported) Prednisolone Acetate 5 Ml Drops.susp, #10 (Reported) Sitagliptin Phosphate 100 Mg Tablet, 1 TAB PO UD, #90 (Reported) Tamsulosin HCl 0.4 Mg Cap.er.24h, 1 TAB PO UD, #90 (Reported) Trazodone HCl 50 Mg Tablet, 50 MG PO HS, (Reported) Umeclidinium Brm/Vilanterol Tr 1 Each Blst.w.dev, 1 PUFF IH DAILY, (Reported) Past Gexeado-[id number] Hx Patient Social History Marrital Status: Employed/Student: unemployed Alcohol Use: Occasionally Uses Recreational Drug Use: No Smoking Status: Former Smoker Former smoker/When Quit: May 31, 1999 Type Used: Cigarettes 2nd Hand Smoke Exposure: Yes Recent Foreign Travel: No Contact w/other who traveled: No Recent Hopitalizations: No Recent Infectious Disease Expo: No Immunizations Up To Date Tetanus Booster (TDap): Less than 5yrs Date of Pneumonia Vaccine: Jun 14, 2015 Date of Influenza Vaccine: Feb 12, 2016 Seasonal Allergies Seasonal Allergies: Yes Surgeries HX Surgeries: Yes Surgeries: Abdominal, Cardiac, CABG, Coronary Stent, Eye Surgery, Gallbladder, Joint Replacement, Open Heart Surgery, Orthopedic, Vascular Surgery Respiratory Hx Respiratory Disorders: Yes (CHRONIC DYSPNEA ON EXERTION) Cardiovascular Hx Cardiovascular Disorders: Yes Cardiac Disorders: Atrial Fibrillation, Coronary Artery Disease, Heart Attack, High Cholesterol, Hypertension, Peripheral Vascular Neurological Hx Neurological Disorders: Yes (POSSIBLE STROKE/ TIA) Neurological Disorders: Stroke, TIA Reproductive System Hx Reproductive Disorders: No Sexually Transmitted Disease: No HIV/AIDS: No Genitourinary Hx Genitourinary Disorders: Yes (RENAL INSUFFICIENCY) Genitourinary Disorders: Benign Prostatic Hyperpl, Prostate Problems, Renal Failure Gastrointestinal Hx Gastrointestinal Disorders: Yes (GASTROPARESIS; GASTRITIS; DUODENITIS; COLON POLYPECTOMY) Gastrointestinal Disorders: Gastroesophageal Reflux, Pancreatitis, Polyps Musculoskeletal Hx Musculoskeletal Disorders: Yes (OLECRANON BURSITIS, CHRONIC NECK PAIN, DISH SYNDROME) Musculoskeletal Disorders: Degenerate Disk Disease, Arthritis, Chronic Back Pain Endocrine Hx Endocrine Disorders: Yes Endocrine Disorders: Diabetes, Insulin dep HEENT HX ENT Disorders: Yes (SINUS PROBLEMS) HEENT Disorders: Cataract Loss of Vision: Denies Hearing Impairment: Denies Psychosocial Hx Psychiatric Problems: Yes Behavioral Health Disorders: Anxiety Integumentary HX Skin/Integumentary Disorder: No Blood Transfusions Hx Blood Disorders: No Adverse Reaction to a Blood Tr: No Family Medical History Significant Family History: No Pertinent Family Hx Family Hx: Cancer G8 BROTHER Cataract 19 FATHER 19 MOTHER G8 BROTHER G8 BROTHER G8 SISTER Congestive heart failure 19 FATHER 19 MOTHER Family history: Arthritis 19 FATHER 19 MOTHER G8 BROTHER G8 BROTHER G8 SISTER G8 SISTER DAUGHTER SON Family history: Breast disease DAUGHTER Family history: Cardiovascular disease 19 FATHER Family history: Diabetes mellitus 19 FATHER G8 BROTHER G8 SISTER Family history: Hypertension 19 FATHER 19 MOTHER G8 BROTHER G8 BROTHER G8 SISTER G8 SISTER DAUGHTER SON Family history: Thyroid disorder DAUGHTER Heart disease 19 FATHER 19 MOTHER G8 BROTHER Hypercholesterolemia 19 FATHER 19 MOTHER G8 BROTHER G8 BROTHER G8 SISTER Myocardial infarction 19 FATHER 19 MOTHER G8 BROTHER No Family History of: Abdominal aortic aneurysm [place]'s disease Alcoholism Aphasia Cancer of colon Chest pain Congenital heart disease Cystic fibrosis Dementia Dysphagia Family history: Allergy Family history: Alzheimer's disease Family history: Asthma Family history: Coronary thrombosis Family history: Gastrointestinal disease Family history: Glaucoma Family history: Osteoporosis Headache Hearing loss Hereditary disease History of - anemia History of - disorder History of - respiratory disease History of drug abuse Human immunodeficiency virus (HIV) seropositivity Infertile Kidney disease Malignant neoplasm of lung Parkinson's disease Prostate cancer Psychotic disorder Seizure disorder Stroke Tuberculosis Visual impairment Constitutional: weakness EENTM: no symptoms reported Respiratory: no symptoms reported Cardiovascular: chest pain Gastrointestinal: no symptoms reported Genitourinary: no symptoms reported Physical Exam Vital Signs Vital Sign - Last 12Hours Capillary Refill : Less Than 3 Seconds General Appearance: No Apparent Distress, WD/WN Eyes: Bilateral Eye Normal Inspection HEENT: Normal ENT Inspection Neck: Full Range of Motion, Normal Inspection Respiratory: Chest Non Tender, No Accessory Muscle Use, No Respiratory Distress Cardiovascular: Irregularly Irregular Gastrointestinal: Non Tender, Soft Assessment/Plan Assessment and Plan Chest pain. Atrial fibrillation. Coronary artery disease. Diabetes. Renal insufficiency. Hyperlipidemia Problems: Clinical Quality Measures AMI/AHF: ASA po Prior to arrival: Yes LLUVIA ROUSE DO September 22, 2016 08:37
[2016-09-22] MEDS: morphine INJ 4 MG/ML 1 ML (VIAL/SYRINGE) IVP PRN ×2 (09:41→14:30)
[2016-09-22] MEDS: NITROGLYCERIN SUBLINGUAL 0.4 MG TAB (NITROSTAT) SL PRN ×3 (09:41→13:56)
[2016-09-22] MEDS ORDERED: FLUT16SP22 NS ×2 (10:13)
[2016-09-22] MEDS ORDERED: METO-333 PO ×2 (10:13)
[2016-09-22] MEDS ORDERED: DRON400T2 PO ×2 (10:13)
[2016-09-22] MEDS ORDERED: ENAL5TAB PO ×2 (10:13)
--- NOTE | 2016-09-22 14:35 | Consultation-Cardiology ---
HPI-Cardiology Cardiology Consultation: Date of Consultation 09/22/16 Date of Admission Attending Physician Chance Ward DO Admitting Physician Chance Ward DO Consulting Physician Daniel TILLEY MD HPI: Chief Complaint: chest pain This is a 76 year old male patient of Dr Stiles and Dr Ward who has history of CABG in 1999. He had a cath in 2011 and had a stent in the vein graft to OM. Another cath in 2015 resulted in balloon angioplasty of the same stent. previously patent AMANDA to the LAD and patent graft to the RCA. He presents with chest pain since 4am which is not resolving despite numerous NTG s/l and morphine. He is already on aspirin and on eliquis for AFib. Review of Systems-Cardiology Review of Systems Constitutional: No As described under HPI, No no symptoms reported, No chills, No fever, No lightheadedness, No malaise, No tiredness, No weight loss, No weight gain, No other Eyes: No As described under HPI, No no symptoms reported, No blindness, No blurred vision, No contact lenses, No drainage, No decreased acuity, No foreign body sensation, No glasses, No inflammation, No pain, No photophobia, No previous injury, No shadows, No tunnel vision, No other, No vision change Ears/Nose/Throat: No As described under HPI, No no symptoms reported, No chronic hearing loss, No epistaxis, No ear discharge, No ear pain, No loose teeth, No mouth pain, No mouth swelling, No nasal drainage, No nose pain, No recent hearing loss, No throat pain, No throat swelling, No ulcerations, No other Respiratory: No no symptoms reported, No As described under HPI, No cough, No orthopnea, No shortness of breath, No SOB with excertion, No SOB at rest, No stridor, No wheezing, No other Cardiovascular: chest pain Gastrointestinal: No no symptoms reported, No As described under HPI, No abdomen distended, No abdominal pain, No blood streaked bowels, No constipation , No diarrhea, No difficulty swallowing, No nausea, No poor appetite, No poor fluid intake, No rectal bleeding, No vomiting, No other, No nausea/vomiting/ diarrhea, No stool coloration changes Genitourinary: No no symptoms reported, No As described under HPI, No burning, No dysuria, No discharge, No frequency, No flank pain, No hematuria, No incontinence, No pain, No urgency, No other, No urine frequency changes, No urine coloration changes Musculoskeletal: No no symptoms reported, No As describe under HPI, No back pain, No gout, No joint pain, No joint swelling, No muscle pain, No muscle stiffness, No neck pain, No other Skin: No no symptoms reported, No As described under HPI, No change in color, No change in hair/nails, No dryness, No lesions, No lumps, No rash, No other, No skin related problems, No ulcerations, No rash on exposed areas, No ulcerations on exposed areas Psychiatric/Neurological: No As described under HPI, No anxiety, No depression , No emotional problems, No focal weakness, No headache, No no symptoms reported , No numbness, No other, No pre-existing deficit, No seizure, No syncope, No tingling, No tremors, No weakness Hematologic: No no symptoms reported, No As described under HPI, No anemia, No blood clots, No easy bleeding, No easy bruising, No swollen glands, No other, No bleeding abnormalities CHR-Druybu-Bxakxb Hx Patient Social History Marrital Status: Employed/Student: unemployed Alcohol Use: Occasionally Uses Recreational Drug Use: No Smoking Status: Former Smoker Former smoker/When Quit: May 31, 1999 Type Used: Cigarettes 2nd Hand Smoke Exposure: Yes Recent Foreign Travel: No Recent Infectious Disease Expo: No Hospitalization with Isolation: Denies Physical Abuse Screen: No Sexual Abuse: No Immunizations Up To Date Tetanus Booster (TDap): Less than 5yrs Date of Pneumonia Vaccine: Jun 14, 2015 Date of Influenza Vaccine: Feb 12, 2016 Past Medical History PMH As described under Assessment. Family Medical History Family History: Cancer G8 BROTHER Cataract 19 FATHER 19 MOTHER G8 BROTHER G8 BROTHER G8 SISTER Congestive heart failure 19 FATHER 19 MOTHER Family history: Arthritis 19 FATHER 19 MOTHER G8 BROTHER G8 BROTHER G8 SISTER G8 SISTER DAUGHTER SON Family history: Breast disease DAUGHTER Family history: Cardiovascular disease 19 FATHER Family history: Diabetes mellitus 19 FATHER G8 BROTHER G8 SISTER Family history: Hypertension 19 FATHER 19 MOTHER G8 BROTHER G8 BROTHER G8 SISTER G8 SISTER DAUGHTER SON Family history: Thyroid disorder DAUGHTER Heart disease 19 FATHER 19 MOTHER G8 BROTHER Hypercholesterolemia 19 FATHER 19 MOTHER G8 BROTHER G8 BROTHER G8 SISTER Myocardial infarction 19 FATHER 19 MOTHER G8 BROTHER No Family History of: Abdominal aortic aneurysm Oneida's disease Alcoholism Aphasia Cancer of colon Chest pain Congenital heart disease Cystic fibrosis Dementia Dysphagia Family history: Allergy Family history: Alzheimer's disease Family history: Asthma Family history: Coronary thrombosis Family history: Gastrointestinal disease Family history: Glaucoma Family history: Osteoporosis Headache Hearing loss Hereditary disease History of - anemia History of - disorder History of - respiratory disease History of drug abuse Human immunodeficiency virus (HIV) seropositivity Infertile Kidney disease Malignant neoplasm of lung Parkinson's disease Prostate cancer Psychotic disorder Seizure disorder Stroke Tuberculosis Visual impairment Allergies and Home Medications Allergies Coded Allergies: celecoxib (Unverified Allergy, Mild, TAKES ASPIRIN AT HOME, 12/21/14) diclofenac (Unverified Allergy, Mild, TAKES ASPIRIN AT HOME, 12/21/14) naproxen (Unverified Allergy, Mild, TAKES ASPIRIN AT HOME, 12/21/14) rosuvastatin (Unverified Allergy, Mild, 08/14/08) Penicillins (Verified Allergy, Unknown, 08/03/05) amoxicillin (Verified Allergy, Unknown, 08/03/05) fenofibrate (Unverified Allergy, Unknown, 06/05/16) morphine (Verified Allergy, Unknown, TAKES HYDROCODONE AT HOME, 07/17/14) simvastatin (Unverified Allergy, Unknown, 06/05/16) Uncoded Allergies: GEMIFIBOROZIL (Allergy, Unknown, 06/05/16) Home Medications Apixaban 5 Mg Tablet, 5 MG PO BID, (Reported) Aspirin 81 Mg Tablet.dr, 81 MG PO DAILY, (Reported) Baclofen 10 Mg Tablet, 10 MG PO TID PRN for MUSCLE SPASMS, (Reported) Cephalexin 500 Mg Capsule, 1,000 MG PO BID, #40 Ref 0 Prescribed by: JUSTINE TABARES on 09/05/16 1800 Cilostazol 100 Mg Tablet, 100 MG PO BID, (Reported) Digoxin 125 Mcg Tablet, 125 MCG PO DAILY, (Reported) Dronedarone HCl 400 Mg Tablet, 400 MG PO BID, (Reported) Enalapril Maleate 5 Mg Tablet, 5 MG PO DAILY, (Reported) Fenofibrate,Micronized 134 Mg Capsule, 134 MG PO DAILY, (Reported) Fluticasone Propionate 16 Gm [place].susp, 2 SPRAYS NS DAILY PRN for CONGESTION, ( Reported) Gabapentin 300 Mg Capsule, 600 MG PO HS, (Reported) TAKES 2 (300 MG) CAPSULES Glipizide 10 Mg Tablet, 10 MG PO DAILY, (Reported) Insulin Detemir 100 Unit/1 Ml Insuln.pen, 43 UNIT SQ HS, (Reported) Metoprolol Tartrate 25 Mg Tablet, 25 MG PO BID, (Reported) Montelukast Sodium 10 Mg Tablet, 10 MG PO DAILY, (Reported) Nitroglycerin 0.4 Mg Tab.subl, 0.4 MG SL UD PRN for CHEST PAIN, (Reported) Pantoprazole Sodium 40 Mg Tablet.dr, 40 MG PO BID, (Reported) Pentoxifylline 400 Mg Tablet.er, 400 MG PO TID, (Reported) Pravastatin Sodium 80 Mg Tablet, 80 MG PO HS, (Reported) Sitagliptin Phosphate 100 Mg Tablet, 100 MG PO DAILY, (Reported) Tamsulosin HCl 0.4 Mg Cap.er.24h, 0.4 MG PO 1730, (Reported) Trazodone HCl 50 Mg Tablet, 50 MG PO HS, (Reported) Umeclidinium Brm/Vilanterol Tr 1 Each Blst.w.dev, 1 PUFF IH DAILY, (Reported) Physical Exam-Cardiology Physical Exam Vital Signs/I&O Vital Sign - Last 12Hours 09/22/16 09/22/16 09/22/16 09/22/16 05:29 05:29 05:29 06:23 Temp 97.9 Pulse 98 90 Resp 19 12 B/P (MAP) 113/68 99/68 Pulse Ox 93 95 95 O2 Delivery Room Air Nasal Cannula Room Air Room Air 09/22/16 09/22/16 09/22/16 09/22/16 09:01 09:10 09:31 10:56 Temp 98.4 Pulse 78 79 74 Resp 11 20 B/P (MAP) 116/65 Pulse Ox 95 98 09/22/16 09/22/16 12:32 13:00 Temp 98.4 Pulse 84 80 Resp 18 B/P (MAP) 123/71 Pulse Ox 100 Capillary Refill : Less Than 3 SecondsLess Than 3 Seconds Constitutional: No appears stated age, No AAO x 3, No apparent distress, No PERRL, No well-developed, No well-nourished, No other HEENT: No PERRL, No normal ENT inspection, No TMs normal, No pharynx normal, No scleral icterus (R), No scleral icterus (L), No pale conjunctivae (R), No pale conjunctivae (L), No photophobia, No TM abnormal (R), No TM abnormal (L), No pharyngeal erythema, No tonsillar exudate, No other, No discharge, No EOMI, No hearing is well preserved, No hard of hearing, No oral hygience is good, No ulceration, No xanthelasmas are seen Neck: No non-tender, No full range of motion, No supple, No normal inspection, No carotid bruit, No limited range of motion, No lymphadenopathy (R), No lymphadenopathy (L), No tender lateral, No tender midline, No thyromegaly, No other, No carotid pulses are 2 + bilaterally, No with good upstrokes Respiratory: No accessory muscle use, No respiratory distress, No chest tender , chest expansion is symmetric, chest is bilaterally symmetric, lungs clear to percussion, lungs clear to auscultation, No crackles, No rhonchi, No rales, No stridor, No wheezing, No pleural rub, No other Cardiovascular: regular rate-rhythm, irregularly irregular, S1 and S2 Gastrointestinal: No tender, No soft, No round, No distended, No pulsatile mass , No organomegaly, No guarding, No rebound, No tenderness, No hernia, No mass, No audible bowel sounds, No abnormal bowel sounds, No abdominal bruits, No spleenomegaly, No other Rectal: deferred Extremities: No normal range of motion, No non-tender, No normal inspection, No pedal edema, No calf tenderness, No normal capillary refill, No pelvis stable , No calf tenderness, No inflammation, No pedal edema, No slow capillary refill , No swelling, No other, No abrasion, No clubbing, No cyanosis, No ecchymosis, No laceration, No no lower extremity edema bilateral, No significant edema, No tenderness, No wound Neurologic/Psychiatric: No director of advertising sales II-XII nml as tested, No no motor/sensory deficits, No alert, No normal mood/affect, No oriented x 3, No abnormal cerebellar tests, No abnormal director of advertising sales II-XII, No abnormal gait, No aphasia, No EOM palsy, No facial droop, No motor weakness, No sensory deficit, No depressed affect, No disoriented x 3, No other, No grossly intact, No power is 5/5 both on sides Skin: No normal color, No warm/dry, No cyanosis, No cool, No diaphoresis, No damp, No ecchymosis, No jaundice, No mottled, No pallor, No rash, No tattoos/ piercings, No ulcerations, No rash on exposed areas, No ulcerations on exposed areas, No other Data Review Labs Laboratory Tests 09/22/16 05:20: White Blood Count 8.1, Red Blood Count 4.58, Hemoglobin 13.4, Hematocrit 41, Mean Corpuscular Volume 88, Mean Corpuscular Hemoglobin 29, Mean Corpuscular Hemoglobin Concent 33, Red Cell Distribution Width 14.3, Platelet Count 273, Mean Platelet Volume 10.4, Neutrophils (%) (Auto) 53, Lymphocytes (%) (Auto) 34 , Monocytes (%) (Auto) 10, Eosinophils (%) (Auto) 3, Basophils (%) (Auto) 0, Neutrophils # (Auto) 4.3, Lymphocytes # (Auto) 2.8, Monocytes # (Auto) 0.8, Eosinophils # (Auto) 0.2, Basophils # (Auto) 0.0, Prothrombin Time 14.4, INR Comment 1.2, Activated Partial Thromboplast Time 30, Sodium Level 138, Potassium Level 3.7, Chloride Level 105, Carbon Dioxide Level 23, Anion Gap 10, Blood Urea Nitrogen 18, Creatinine 1.67H, Estimat Glomerular Filtration Rate 40 , BUN/Creatinine Ratio 11, Glucose Level 209H, Calcium Level 10.2H, Magnesium Level 1.9, Total Bilirubin 0.4, Aspartate Amino Transf (AST/SGOT) 14, Alanine Aminotransferase (ALT/SGPT) 17, Alkaline Phosphatase 59, Myoglobin 57.0, Troponin I < 0.30, Total Protein 7.0, Albumin 4.1 09/22/16 09:39: Troponin I < 0.30 09/22/16 13:25: Glucometer 154H ECG Impression ECG Initial ECG Rhythm: Normal Sinus Initial ECG Impression: Nonspecific Changes A/P-Cardiology Assessment/Admission Diagnosis Unstable angina, refractory to medical therapy. History of CABG, History of PCI and PTCA to vein graft to OM. DM. Plan Coronary angiography is recommended. all risks and complications explained in details including vascular damage, bleeding, stroke, [place] and even . Informed consent taken. CKD - IV fluids, will need renal referral as outpatient. AF: continue eliquis and multaq. Thank you for your consultation. Please call me if you have any questions. Lynda Tilley MD, FACP, FACC, FSCAI, FHRS, CCDS Interventional Cardiology Cardiac Electrophysiology Vascular Medicine and Endovascular Interventions Clinical Quality Measures AMI/AHF: ASA po Prior to arrival: Yes DVT/VTE Risk/Contraindication: Risk Factor Score Per Nursin RFS Level Per Nursing on Admit: 2=Moderate Daniel TILLEY MD September 22, 2016 2:35 pm
[2016-09-22] MEDS ORDERED: NS IV 1000 ML 1,000 ML ONE (14:55)
[2016-09-22] MEDS ORDERED: NS IV 1000 ML 1,000 ML IV SCH (15:00)
[2016-09-22] MEDS ORDERED: LIDOCAINE 1% INJ 20 ML (XYLOCAINE) VIAL ONE (15:05)
[2016-09-22] MEDS ORDERED: NS IV 1000 ML 0 ML ONE (15:05)
[2016-09-22] MEDS ORDERED: HEParin (CATH LAB) 2,000 ML IV ONE (15:05)
[2016-09-22] MEDS ORDERED: fentaNYL INJECTION 100 MCG/2 ML AMP ONE (15:10)
[2016-09-22] MEDS ORDERED: diphenhydrAMINE 50 MG/ML INJ (BENADRYL) ONE (15:10)
[2016-09-22] MEDS ORDERED: MIDAZOLAM 5 MG/5 ML (VERSED) VIAL ONE (15:10)
[2016-09-22] MEDS ORDERED: HEParin 1000 UNIT/ML (10ML VIAL) FOR BOLUS ONE ×2 (15:38→16:38)
[2016-09-22] MEDS ORDERED: VERAPAMIL 5 MG/2 ML (CALAN) VIAL IV ONE ×2 (15:38→16:38)
[2016-09-22] MEDS ORDERED: NITROGLYCERIN DRIP 25 MG/D5W 250 ML IV ONE (15:38)
--- NOTE | 2016-09-22 15:49 | Cardiac Procedure Note-CS/ASA ---
Pre-Procedure Note Pre-Op Procedure Note H&P Reviewed The H&P was reviewed, patient examined and no changes noted. Date H&P Reviewed: September 22, 2016 Time H&P Reviewed: 15:49 Conscious Sedation Pre-Proced Time Reviewed: 15:49 ASA Class: 3 Airway Mallampati Classification: (nightmute appropriate class) I. II. III, IV Lungs Heart ASA score ASA 1: a normal healthy patient ASA 2: a patient with a mild systemic disease (mid diabetes, controlled hypertension, obesity ASA 3: a patient with a severe systemic disease that limits activity (angina , COPD, prior Myocardial infarction) ASA 4: a patient with an incapacitating disease that is a constant threat to life (CHF, renal failure) ASA 5: a moribund patient not expected to survive 24 hrs. (ruptured aneurysm) ASA 6: a declared brain patient whose organs are being harvested. For emergent operations, add the letter E after the classification Grade 1 Sedation Plan: Analgesia, Amnesia, Plan communicated to team members, Discussed options with patient/fam, Discussed risks with patient/fam Note The patient is an appropriate candidate to undergo the planned procedure, sedation, and anesthesia. The patient immediately re-assessed prior to indication. Daniel CASTILLO MD September 22, 2016 3:49 pm
--- NOTE | 2016-09-22 17:07 | Cardiology Post Procedure Note ---
Post-Procedure Note Post-Op Procedure Note Procedure Start Date: September 22, 2016 Procedure Start Time: 15:30 Name of Procedure: Coronary angiography, LHC, Graft angiography, AMANDA angiography, aortic arch angiography Findings/Procedure Note Occluded LM and RCA. Patent SVG to RCA. Patent SVG to diagonal artery. The diagonal artery is small sized (<1.5mm) and has severe stenosis in the mid segment. Occluded SVG to OM. Patent AMANDA to the LAD, LAD after the distal anastomosis is diffusely diseased. Anesthesia Type: Conscious Sedation Estimated blood loss (mL): 20 ml Contrast Amount: 160 ml Post-Operative Diagnosis Post-operative diagnosis: Severe [place] disease. Occluded graft to OM. Other grafts are patent Daniel CASTILLO MD September 22, 2016 5:07 pm
[2016-09-22] MEDS ORDERED: PATIENT MAY USE OWN MEDS, ALL PO SCH (17:15)
[2016-09-22] MEDS: NS IV 1000 ML 1,000 ML IV SCH (17:49)
[2016-09-23] VITALS: BP 124/83
[2016-09-23] MEDS: NS IV 1000 ML 1,000 ML IV SCH (03:55)
[2016-09-23 04:00] VITALS: BP 102/65
[2016-09-23 04:40] LABS: MEAN PLATELET VOLUME 10.5 FL (7.4-10.4); RED BLOOD COUNT 4.39 10^6/uL (4.35-5.85); RED CELL DISTRIBUTION WIDTH 14.6 % (10.0-14.5); WHITE BLOOD COUNT 7.8 10^3/uL (4.3-11.0)
[2016-09-23 04:54] LABS: CHOLESTEROL 112 MG/DL (< 200); DIRECT LDL 62 MG/DL (1-129); TRIGLYCERIDES 139 MG/DL (<150); VLDL CHOLESTEROL 28 MG/DL (5-40)
[2016-09-23 05:00] LABS: CALCIUM 9.3 MG/DL (8.5-10.1); CREATININE SERUM 1.43 MG/DL (0.60-1.30); POTASSIUM 3.8 MMOL/L (3.6-5.0)
[2016-09-23 08:05] VITALS: BP 123/68
[2016-09-23] MEDS ORDERED: ASPIRIN E.C. 325 MG (ECOTRIN) TABLET PO SCH (09:00)
--- NOTE | 2016-09-23 11:25 | Cardiology Progress Note ---
Cardiology SOAP Progress Note Subjective: No chest pain Objective: I&O/Vital Signs Vital Sign - Last 12Hours 09/23/16 09/23/16 09/23/16 09/23/16 00:00 00:00 01:21 04:00 Temp 97.7 98.3 Pulse 73 59 75 Resp 16 16 B/P (MAP) 124/83 102/65 Pulse Ox 97 97 95 09/23/16 09/23/16 09/23/16 09/23/16 04:00 07:00 08:02 08:05 Temp 98.6 Pulse 80 81 Resp 20 B/P (MAP) 123/68 Pulse Ox 97 97 09/23/16 09:10 Pulse Ox 97 Intake and Output 09/23/16 00:00 Intake Total 330 ml Output Total 750 ml Balance -420 ml Weight (Pounds): 193 Weight (Ounces): 9.6 Weight (Calculated Kilograms): [id number] Constitutional: No appears stated age, No AAO x 3, No apparent distress, No PERRL, No well-developed, No well-nourished, No other Respiratory: No accessory muscle use, No respiratory distress, No chest tender , chest expansion is symmetric, chest is bilaterally symmetric, lungs clear to percussion, lungs clear to auscultation, No crackles, No rhonchi, No rales, No stridor, No wheezing, No pleural rub, No other Cardiovascular: regular rate-rhythm, S1 and S2 Gastrointestional: No tender, No soft, No round, No distended, No pulsatile mass, No organomegaly, No guarding, No rebound, No tenderness, No hernia, No mass, No audible bowel sounds, No abnormal bowel sounds, No abdominal bruits, No spleenomegaly, No other Extremities: No normal range of motion, No non-tender, No normal inspection, No pedal edema, No calf tenderness, No normal capillary refill, No pelvis stable , No calf tenderness, No inflammation, No pedal edema, No slow capillary refill , No swelling, other (Stable right groin with no bruit), No abrasion, No clubbing, No cyanosis, No ecchymosis, No laceration, No no lower extremity edema bilateral, No significant edema, No tenderness, No wound Neurologic/Psychiatric: No cardiac cath lab radiology technologist II-XII nml as tested, No no motor/sensory deficits, No alert, No normal mood/affect, No oriented x 3, No abnormal cerebellar tests, No abnormal cardiac cath lab radiology technologist II-XII, No abnormal gait, No aphasia, No EOM palsy, No facial droop, No motor weakness, No sensory deficit, No depressed affect, No disoriented x 3, No other, No grossly intact, No power is 5/5 both on sides Skin: No normal color, No warm/dry, No cyanosis, No cool, No diaphoresis, No damp, No ecchymosis, No jaundice, No mottled, No pallor, No rash, No tattoos/ piercings, No ulcerations, No rash on exposed areas, No ulcerations on exposed areas, No other Results/Procedures: Labs Laboratory Tests 09/22/16 13:25: Glucometer 154H 09/22/16 19:20: Troponin I < 0.30 09/22/16 22:50: Glucometer 161H 09/23/16 03:40: White Blood Count 7.8, Red Blood Count 4.39, Hemoglobin 13.0L, Hematocrit 39L, Mean Corpuscular Volume 88, Mean Corpuscular Hemoglobin 30, Mean Corpuscular Hemoglobin Concent 34, Red Cell Distribution Width 14.6H, Platelet Count 283, Mean Platelet Volume 10.5H, Sodium Level 141, Potassium Level 3.8, Chloride Level 108H, Carbon Dioxide Level 21, Anion Gap 12, Blood Urea Nitrogen 16, Creatinine 1.43H, Estimat Glomerular Filtration Rate 48, BUN/Creatinine Ratio 11 , Glucose Level 102, Calcium Level 9.3, Triglycerides Level 139, Cholesterol Level 112, LDL Cholesterol Direct 62, VLDL Cholesterol 28, HDL Cholesterol 28L A/P: Assessment/Dx: Unstable angina, refractory to medical therapy. History of CABG, History of PCI and PTCA to vein graft to OM. DM. Plan: Coronary angiography revealed patent AMANDA to the LAD, patent saphenous vein graft to the first diagonal artery, patent saphenous vein graft to the RCA. Even after numerous attempts we could not find the saphenous vein graft to the first obtuse marginal artery which was previously intervened on by Dr. Stiles in February 2016. There is a chance that it is occluded. However, the patient has 3 sets of troponin which are negative. EKG does not show any acute ST-T wave abnormalities. Therefore, the patient will be continued on medical therapy and follow-up with Dr. Stiles as an outpatient. CKD - IV fluids. Stable creatinine. Will need renal referral as an outpatient. AF: continue eliquis and multaq. Okay to discharge to follow-up with Dr. Stiles and nephrology as an outpatient. Thank you for your consultation. Please call me if you have any questions. Lynda Tilley MD, FACP, FACC, FSCAI, FHRS, CCDS Interventional Cardiology Cardiac Electrophysiology Vascular Medicine and Endovascular Interventions Clinical Quality Measures AMI/AHF: ASA po Prior to arrival: Yes Daniel TILLEY MD September 23, 2016 11:25 am
[2016-09-23 12:02] VITALS: BP 118/68
--- NOTE | 2016-09-23 16:39 | Progress Note (SOAP) ---
Subjective Subjective/Events-last exam Fwup CP with history of CAD, atrial fibrillation, chronic kidney disease. Feeling good. No further pain. Cardiac cath by Dr. Tilley yesterday and no interventions done. Objective Exam Vital Signs Date Time Temp Pulse Resp B/P (MAP) Pulse Ox O2 Delivery O2 Flow Rate FiO2 09/23/16 12:02 84 18 118/68 98 09/23/16 09:10 97 09/23/16 08:05 98.6 81 20 123/68 09/23/16 08:02 97 09/23/16 07:00 80 09/23/16 04:00 97 09/23/16 04:00 98.3 75 16 102/65 95 09/23/16 01:21 59 09/23/16 00:00 97.7 73 16 124/83 97 09/23/16 00:00 97 09/22/16 23:00 66 17 158/92 97 09/22/16 22:00 65 16 155/93 97 09/22/16 21:00 97 09/22/16 21:00 71 18 165/90 97 09/22/16 20:00 97.4 74 18 161/95 99 09/22/16 20:00 99 09/22/16 19:30 80 17 178/94 96 09/22/16 19:00 72 09/22/16 19:00 82 18 175/92 98 09/22/16 17:51 175/101 09/22/16 17:48 180/113 09/22/16 17:28 179/119 I & O 09/23/16 07:00 Intake Total 1400 ml Output Total 1250 ml Balance 150 ml Capillary Refill : Less Than 3 SecondsLess Than 3 Seconds General Appearance: No Apparent Distress Neck: Supple Respiratory: Lungs Clear Cardiovascular: Systolic Murmur, Irregularly Irregular Gastrointestinal: normal bowel sounds, non tender, soft Extremity: Non Tender, No Calf Tenderness, No Pedal Edema Neurologic/Psychiatric: Alert, Oriented x3 Skin: Other (right groin soft with no hematoma) Results Lab Laboratory Tests 09/22/16 19:20: Troponin I < 0.30 09/22/16 22:50: Glucometer 161H 09/23/16 03:40: White Blood Count 7.8, Red Blood Count 4.39, Hemoglobin 13.0L, Hematocrit 39L, Mean Corpuscular Volume 88, Mean Corpuscular Hemoglobin 30, Mean Corpuscular Hemoglobin Concent 34, Red Cell Distribution Width 14.6H, Platelet Count 283, Mean Platelet Volume 10.5H, Sodium Level 141, Potassium Level 3.8, Chloride Level 108H, Carbon Dioxide Level 21, Anion Gap 12, Blood Urea Nitrogen 16, Creatinine 1.43H, Estimat Glomerular Filtration Rate 48, BUN/Creatinine Ratio 11 , Glucose Level 102, Calcium Level 9.3, Triglycerides Level 139, Cholesterol Level 112, LDL Cholesterol Direct 62, VLDL Cholesterol 28, HDL Cholesterol 28L Assessment/Plan Assessment/Plan Assess & Plan/Chief Complaint 1. Chest Pain/CAD--S/P cardiac cath, continue medical management 2. Atrial Fibrillation--rate controlled 3. Chronic Kidney Disease--fwup with nephrology Clinical Quality Measures AMI/AHF: ASA po Prior to arrival: Yes DVT/VTE Risk/Contraindication: Risk Factor Score Per Nursin RFS Level Per Nursing on Admit: 2=Moderate NICOLE ZURITA DO September 23, 2016 4:39 pm
--- NOTE | 2016-09-24 07:14 | CARDIAC CATHETERIZATION ---
DATE OF SERVICE: 09/22/2016 CORONARY ANGIOGRAPHY REFERRING PHYSICIAN: Cari Stiles MD INDICATION: Unstable angina, previous history of CABG and PCI. PREOPERATIVE DIAGNOSES: Unstable angina, previous history of coronary artery bypass graft and percutaneous vein graft intervention. POSTOPERATIVE DIAGNOSES: Severe standing rock coronary artery disease, occluded graft to the obtuse marginal. HISTORY: The patient is a 76-year-old gentleman with history of diabetes. He had CABG in 1999. He had stent graft placed to the OM vessel in 2011. Another angiography was performed in 02/2016, which showed severely diseased graft to the OM with in-stent restenosis of the previous stent. Therefore, balloon angioplasty was performed successfully. He presents again with unresolving chest pain. Chest pain is refractory to frequent nitroglycerin as well as morphine. Two sets of troponin were negative. EKG did not reveal any significant ST-T wave abnormalities. The working diagnosis, unstable angina, therefore, he was consented for coronary angiography. PROCEDURE PERFORMED: 1. Coronary angiography. 2. Left heart catheterization. 3. Aortic arch angiography. 4. AMANDA angiography. 5. Saphenous vein graft angiography. COMPLICATIONS: None. SPECIMEN: None. ESTIMATED BLOOD LOSS: 20 mL. ANTICOAGULATION: None. CONTRAST DOSE: 160 mL of Omnipaque. FLUOROSCOPY TIME: 34.4 minutes. FLUOROSCOPY DOSE: 738 mGy. PROCEDURE DETAILS: The patient was brought to the mill labor supervisor after informed consent was taken. All the risks and complications were explained in detail. He was draped and prepped in the usual sterile fashion. Access was gained in the right femoral artery with a 5-Kiswahili sheath. The following catheters were used for graft and coronary angiography including JL4, JR4, AMANDA catheter, pigtail catheter. FINDINGS: 1. Left main: Occluded. Known from previous angiogram. 2. RCA: Occluded. Known from previous angiogram. 3. SVG to RCA is patent. anastomosis in the distal RCA with no significant disease distally. 4. Patent graft to the first diagonal artery. It has mild disease in the proximal and mid segment, which is no different from his previous angiogram. The mid segment of the diagonal artery has severe disease; however, this is a small vessel with diameter of less than 1.5 mm. 5. Occluded graft to the OM. This is the graft that was previously intervened on with the stent and balloon 8 months ago. We tried numerous catheters including arch aortogram, which did not reveal a patent graft. 6. AMANDA to the LAD: Very torturous arch, was difficult to get into the AMANDA; however, we were able to get into the subclavian vessel and performed AMANDA angiography, which showed patent proximal and distal anastomotic site. The LAD is diffusely diseased after the distal anastomotic site. There is no focal stenosis seen. 7. Arch aortogram was performed, which did not show any aneurysm or dissection. 8. Left heart catheterization: Aortic pressure 150/87 mmHg. LV pressure 153/2 mmHg. LVEDP 5 mmHg. No gradient across the aortic valve. LV gram was not performed due to elevated creatinine. IMPRESSION/CONCLUSION: 1. Severe standing rock disease. Patent graft to the right coronary artery, diagonal, left anterior descending. Probably occluded graft to obtuse marginal, which is the reason for his chest pain. 2. Aggressive IV hydration for renal insufficiency. 3. Continue aggressive medical therapy for coronary artery disease. Job ID: [id number] DocumentID: [id number] Dictated Date: 09/22/2016 17:20:00 Boiler Maker Date: 09/24/2016 03:53:47 Dictated By: DEANNE CASTILLO MD MTDD
--- NOTE | 2016-09-26 07:21 | Discharge Summary ---
Diagnosis/Chief Complaint Date of Admission Date of Discharge Admission Diagnosis Admission Diagnosis Chest pain. Atrial fibrillation. Coronary artery disease. Diabetes. Renal insufficiency. Hyperlipidemia Discharge Diagnosis Unstable angina refractory to medical therapy. history of CABG. Diabetes. Renal insufficiency. Atrial fibrillation Reason Hospital Visit Patient woke up at 4 a.m. with chest pain. Patient felt his heart was fluttering. Patient was released yesterday from hospital in sinus rhythm. Patient yesterday had a flutter with RVR. When patient was discharged he felt good. Patient has a history of renal insufficiency and diabetes and coronary artery disease and stents. Patient admitted to ICU Discharge Summary Procedures Coronary angiography Consultations Cardiology Discharge Physical Examination Allergies: Coded Allergies: celecoxib (Unverified Allergy, Mild, TAKES ASPIRIN AT HOME, 12/21/14) diclofenac (Unverified Allergy, Mild, TAKES ASPIRIN AT HOME, 12/21/14) naproxen (Unverified Allergy, Mild, TAKES ASPIRIN AT HOME, 12/21/14) rosuvastatin (Unverified Allergy, Mild, 08/14/08) Penicillins (Verified Allergy, Unknown, 08/03/05) amoxicillin (Verified Allergy, Unknown, 08/03/05) fenofibrate (Unverified Allergy, Unknown, 06/05/16) morphine (Verified Allergy, Unknown, TAKES HYDROCODONE AT HOME, 07/17/14) simvastatin (Unverified Allergy, Unknown, 06/05/16) Uncoded Allergies: GEMIFIBOROZIL (Allergy, Unknown, 06/05/16) Vitals & I&Os Vital Signs Date Time Temp Pulse Resp B/P (MAP) Pulse Ox O2 Delivery O2 Flow Rate FiO2 09/23/16 12:02 84 18 118/68 98 09/23/16 08:05 98.6 09/22/16 06:23 Room Air Hospital Course Patient had coronary artery angiography Labs (last 24 hrs) Laboratory Tests 09/22/16 05:20: White Blood Count 8.1, Red Blood Count 4.58, Hemoglobin 13.4, Hematocrit 41, Mean Corpuscular Volume 88, Mean Corpuscular Hemoglobin 29, Mean Corpuscular Hemoglobin Concent 33, Red Cell Distribution Width 14.3, Platelet Count 273, Mean Platelet Volume 10.4, Neutrophils (%) (Auto) 53, Lymphocytes (%) (Auto) 34 , Monocytes (%) (Auto) 10, Eosinophils (%) (Auto) 3, Basophils (%) (Auto) 0, Neutrophils # (Auto) 4.3, Lymphocytes # (Auto) 2.8, Monocytes # (Auto) 0.8, Eosinophils # (Auto) 0.2, Basophils # (Auto) 0.0, Prothrombin Time 14.4, INR Comment 1.2, Activated Partial Thromboplast Time 30, Sodium Level 138, Potassium Level 3.7, Chloride Level 105, Carbon Dioxide Level 23, Anion Gap 10, Blood Urea Nitrogen 18, Creatinine 1.67H, Estimat Glomerular Filtration Rate 40 , BUN/Creatinine Ratio 11, Glucose Level 209H, Calcium Level 10.2H, Magnesium Level 1.9, Total Bilirubin 0.4, Aspartate Amino Transf (AST/SGOT) 14, Alanine Aminotransferase (ALT/SGPT) 17, Alkaline Phosphatase 59, Myoglobin 57.0, Troponin I < 0.30, Total Protein 7.0, Albumin 4.1 09/22/16 09:39: Troponin I < 0.30 09/22/16 13:25: Glucometer 154H 09/22/16 19:20: Troponin I < 0.30 09/22/16 22:50: Glucometer 161H 09/23/16 03:40: White Blood Count 7.8, Red Blood Count 4.39, Hemoglobin 13.0L, Hematocrit 39L, Mean Corpuscular Volume 88, Mean Corpuscular Hemoglobin 30, Mean Corpuscular Hemoglobin Concent 34, Red Cell Distribution Width 14.6H, Platelet Count 283, Mean Platelet Volume 10.5H, Sodium Level 141, Potassium Level 3.8, Chloride Level 108H, Carbon Dioxide Level 21, Anion Gap 12, Blood Urea Nitrogen 16, Creatinine 1.43H, Estimat Glomerular Filtration Rate 48, BUN/Creatinine Ratio 11 , Glucose Level 102, Calcium Level 9.3, Triglycerides Level 139, Cholesterol Level 112, LDL Cholesterol Direct 62, VLDL Cholesterol 28, HDL Cholesterol 28L Laboratory Tests 09/22/16 05:20 09/23/16 03:40 Pending Labs Laboratory Tests 09/22/16 05:20: White Blood Count 8.1, Red Blood Count 4.58, Hemoglobin 13.4, Hematocrit 41, Mean Corpuscular Volume 88, Mean Corpuscular Hemoglobin 29, Mean Corpuscular Hemoglobin Concent 33, Red Cell Distribution Width 14.3, Platelet Count 273, Mean Platelet Volume 10.4, Neutrophils (%) (Auto) 53, Lymphocytes (%) (Auto) 34 , Monocytes (%) (Auto) 10, Eosinophils (%) (Auto) 3, Basophils (%) (Auto) 0, Neutrophils # (Auto) 4.3, Lymphocytes # (Auto) 2.8, Monocytes # (Auto) 0.8, Eosinophils # (Auto) 0.2, Basophils # (Auto) 0.0, Prothrombin Time 14.4, INR Comment 1.2, Activated Partial Thromboplast Time 30, Sodium Level 138, Potassium Level 3.7, Chloride Level 105, Carbon Dioxide Level 23, Anion Gap 10, Blood Urea Nitrogen 18, Creatinine 1.67, Estimat Glomerular Filtration Rate 40, BUN/Creatinine Ratio 11, Glucose Level 209, Calcium Level 10.2, Magnesium Level 1.9, Total Bilirubin 0.4, Aspartate Amino Transf (AST/SGOT) 14, Alanine Aminotransferase (ALT/SGPT) 17, Alkaline Phosphatase 59, Myoglobin 57.0, Troponin I < 0.30, Total Protein 7.0, Albumin 4.1 09/22/16 09:39: Troponin I < 0.30 09/22/16 13:25: Glucometer 154 09/22/16 19:20: Troponin I < 0.30 09/22/16 22:50: Glucometer 161 09/23/16 03:40: White Blood Count 7.8, Red Blood Count 4.39, Hemoglobin 13.0, Hematocrit 39, Mean Corpuscular Volume 88, Mean Corpuscular Hemoglobin 30, Mean Corpuscular Hemoglobin Concent 34, Red Cell Distribution Width 14.6, Platelet Count 283, Mean Platelet Volume 10.5, Sodium Level 141, Potassium Level 3.8, Chloride Level 108, Carbon Dioxide Level 21, Anion Gap 12, Blood Urea Nitrogen 16, Creatinine 1.43, Estimat Glomerular Filtration Rate 48, BUN/Creatinine Ratio 11 , Glucose Level 102, Calcium Level 9.3, Triglycerides Level 139, Cholesterol Level 112, LDL Cholesterol Direct 62, VLDL Cholesterol 28, HDL Cholesterol 28 Discharge Home Medications: Active Scripts Active Keflex (Cephalexin) 500 Mg Capsule 1,000 Mg PO BID Reported Enalapril Maleate 5 Mg Tablet 5 Mg PO DAILY Fluticasone Propionate 16 Gm [place].susp 2 Sprays NS DAILY PRN Multaq (Dronedarone HCl) 400 Mg Tablet 400 Mg PO BID Metoprolol Tartrate 25 Mg Tablet 25 Mg PO BID Pravastatin Sodium 80 Mg Tablet 80 Mg PO HS Januvia (Sitagliptin Phosphate) 100 Mg Tablet 100 Mg PO DAILY Eliquis (Apixaban) 5 Mg Tablet 5 Mg PO BID Tamsulosin HCl 0.4 Mg Cap.er.24h 0.4 Mg PO 1730 Pantoprazole Sodium 40 Mg Tablet.dr 40 Mg PO BID Fenofibrate (Fenofibrate,Micronized) 134 Mg Capsule 134 Mg PO DAILY Baclofen 10 Mg Tablet 10 Mg PO TID PRN Cilostazol 100 Mg Tablet 100 Mg PO BID Anoro Ellipta 62.5-25 Mcg INH (Umeclidinium Brm/Vilanterol Tr) 1 Each Blst.w.dev 1 Puff IH DAILY Pentoxifylline 400 Mg Tablet.er 400 Mg PO TID Nitrostat (Nitroglycerin) 0.4 Mg Tab.subl 0.4 Mg SL UD PRN Montelukast Sodium 10 Mg Tablet 10 Mg PO DAILY Digoxin 125 Mcg Tablet 125 Mcg PO DAILY Glipizide 10 Mg Tablet 10 Mg PO DAILY Gabapentin 300 Mg Capsule 600 Mg PO HS TAKES 2 (300 MG) CAPSULES Trazodone HCl 50 Mg Tablet 50 Mg PO HS Levemir Flextouch (Insulin Detemir) 100 Unit/1 Ml Insuln.pen 43 Unit SQ HS Aspir 81 (Aspirin) 81 Mg Tablet.dr 81 Mg PO DAILY Instructions to patient/family Please see electonic discharge instructions given to patient. Clinical Quality Measures AMI/AHF: ASA po Prior to arrival: Yes DVT/VTE Risk/Contraindication: Risk Factor Score Per Nursin RFS Level Per Nursing on Admit: 2=Moderate LLUVIA ROUSE DO September 26, 2016 07:21
== END 2016-09-23 11:50 | disposition home or self-care (01) ==
LOC: EDUNIT# 05:16 → ER 05:18 → UNDOADMOB 07:10 → ICU 07:10 → CATH 07:10 → ICU 09:10 → UNDODISOB 09-23 11:50 → CATH 09-23 11:50
PROVIDERS: ATTEND Internal Medicine Interventional Cardiology
DX: I25.110 Atherosclerotic heart disease of native coronary artery with unstable angina pectoris (principal); I25.82 Chronic total occlusion of coronary artery; T82.857D Stenosis of other cardiac prosthetic devices, implants and grafts, subsequent encounter; N18.9 Chronic kidney disease, unspecified; E11.22 Type 2 diabetes mellitus with diabetic chronic kidney disease; I48.91 Unspecified atrial fibrillation; Z95.5 Presence of coronary angioplasty implant and graft; Z79.899 Other long term (current) drug therapy; Z79.84 Long term (current) use of oral hypoglycemic drugs; Z87.891 Personal history of nicotine dependence; Z79.01 Long term (current) use of anticoagulants
CPT/HCPCS: 36221; 36415; 71010; 80048; 80053; 80061; 82962; 83735; 83874; 84484; 85025; 85027; 85610; 85730; 93005; 93041; 93459

== ENCOUNTER 2016-09-27 15:40 | Emergency (ER) | payer MEDICARE, MEDICAID ==
[~2016-09-27] VITALS: Ht 182.9 cm; Wt 90.7 kg
[~2016-09-27 15:40] MED LIST changes: +DRON400T2 PO; +FLUT16SP22 NS
[2016-09-27 16:06] VITALS: BP 114/76
--- NOTE | 2016-09-27 16:17 | ED Cardiac General ---
History of Present Illness General Chief Complaint: Cardiac/General Problems Stated Complaint: LOW BLOOD PRESSURE Nursing Triage Note: AMB TO ROOM WITH REPORTS THAT HIS TOOK HIS BLOOD PRESSUE GUARD IMMIGRATION AND IT WAS IN THE 70'S NO C/O ON ADMIT REPORTS HE DROVE TO HOSPITAL. 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 HEART RATE WAS IN MID 50'S DID NOT ATTEMPT TO CONTACT DR. GARCIA PRIOR TO COMING TO ER PT HAS HISTORY OF A FIB WITH RVR AND WAS JUST DISMISSED FROM HOSPITAL ON Sunday09/23/16 FOR ANOTHER FLARE UP, ALONG WITH CHEST PAIN CARDIAC CATH WAS DONE AND NO INTERVENTION WAS REQUIRED ONLY MEDICATION CHANGE WAS THAT METOPROLOL 25 MG WAS INCREASED FROM 1/2 PILL BID TO A FULL PILL BID PT HAS NOT HAD ANY PROBLEMS BEFORE TODAY WITH LOW BLOOD PRESSURE PT HAS AN APPOINTMENT AT IN OCTOBER FOR CARDIAC ABLATION SAND ANALYST: DR. GARCIA Allergies and Home Medications Allergies Coded Allergies: celecoxib (Unverified Allergy, Mild, TAKES ASPIRIN AT HOME, 12/21/14) diclofenac (Unverified Allergy, Mild, TAKES ASPIRIN AT HOME, 12/21/14) naproxen (Unverified Allergy, Mild, TAKES ASPIRIN AT HOME, 12/21/14) rosuvastatin (Unverified Allergy, Mild, 08/14/08) Penicillins (Verified Allergy, Unknown, 08/03/05) amoxicillin (Verified Allergy, Unknown, 08/03/05) fenofibrate (Unverified Allergy, Unknown, 06/05/16) morphine (Verified Allergy, Unknown, TAKES HYDROCODONE AT HOME, 07/17/14) simvastatin (Unverified Allergy, Unknown, 06/05/16) Uncoded Allergies: GEMIFIBOROZIL (Allergy, Unknown, 06/05/16) Home Medications Apixaban 5 Mg Tablet, 5 MG PO BID, (Reported) Aspirin 81 Mg Tablet.dr, 81 MG PO DAILY, (Reported) Baclofen 10 Mg Tablet, 10 MG PO TID PRN for MUSCLE SPASMS, (Reported) Cilostazol 100 Mg Tablet, 100 MG PO BID, (Reported) Digoxin 125 Mcg Tablet, 125 MCG PO DAILY, (Reported) Dronedarone HCl 400 Mg Tablet, 400 MG PO BID, (Reported) Enalapril Maleate 5 Mg Tablet, 5 MG PO DAILY, (Reported) Fenofibrate,Micronized 134 Mg Capsule, 134 MG PO DAILY, (Reported) Fluticasone Propionate 16 Gm [place].susp, 2 SPRAYS NS DAILY PRN for CONGESTION, ( Reported) Gabapentin 300 Mg Capsule, 600 MG PO HS, (Reported) TAKES 2 (300 MG) CAPSULES Glipizide 10 Mg Tablet, 10 MG PO DAILY, (Reported) Insulin Detemir 100 Unit/1 Ml Insuln.pen, 43 UNIT SQ HS, (Reported) Metoprolol Tartrate 25 Mg Tablet, 25 MG PO BID, (Reported) Montelukast Sodium 10 Mg Tablet, 10 MG PO DAILY, (Reported) Nitroglycerin 0.4 Mg Tab.subl, 0.4 MG SL UD PRN for CHEST PAIN, (Reported) Pantoprazole Sodium 40 Mg Tablet.dr, 40 MG PO BID, (Reported) Pentoxifylline 400 Mg Tablet.er, 400 MG PO TID, (Reported) Pravastatin Sodium 80 Mg Tablet, 80 MG PO HS, (Reported) Sitagliptin Phosphate 100 Mg Tablet, 100 MG PO DAILY, (Reported) Tamsulosin HCl 0.4 Mg Cap.er.24h, 0.4 MG PO 1730, (Reported) Trazodone HCl 50 Mg Tablet, 50 MG PO HS, (Reported) Umeclidinium Brm/Vilanterol Tr 1 Each Blst.w.dev, 1 PUFF IH DAILY, (Reported) Review of Systems Constitutional: no symptoms reported, No diaphoresis, No dizziness, No malaise , No weakness EENTM: No Symptoms Reported Respiratory: No Symptoms Reported, Denies Shortness of Air Cardiovascular: See HPI, Denies Chest Pain, Denies Edema, Denies Irregular Heart Rate, Denies Lightheadedness, Denies Palpitations, Denies Syncope Gastrointestinal: No Symptoms Reported Genitourinary: No Symptoms Reported Musculoskeletal: no symptoms reported Skin: no symptoms reported Psychiatric/Neurological: No Symptoms Reported Endocrine: No Symptoms Reported Hematologic/Lymphatic: No Symptoms Reported Past [id number] Hx Patient Social History Alcohol Use: Denies Use Recreational Drug Use: No Smoking Status: Former Smoker Type Used: Cigarettes Former Smoker/When Quit: May 31, 1999 2nd Hand Smoke Exposure: Yes Recent Foreign Travel: No Contact w/Someone Who Travel: No Recent Infectious Disease Expo: No Recent Hopitalizations: No Immunizations Up To Date Tetanus Booster (TDap): Less than 5yrs PED Vaccines UTD: No Date of Pneumonia Vaccine: Jun 14, 2015 Date of Influenza Vaccine: Feb 12, 2016 Seasonal Allergies Seasonal Allergies: Yes Surgeries HX Surgeries: Yes Surgeries: Abdominal, Cardiac, CABG, Coronary Stent, Eye Surgery, Gallbladder, Joint Replacement, Open Heart Surgery, Orthopedic, Vascular Surgery Respiratory Hx Respiratory Disorders: Yes (CHRONIC DYSPNEA ON EXERTION) Respiratory Disorders: Sleep Apnea, COPD Cardiovascular Hx Cardiac Disorders: Yes Cardiac Disorders: Atrial Fibrillation, Coronary Artery Disease, Heart Attack, High Cholesterol, Hypertension, Peripheral Vascular Neurological Hx Neurological Disorders: Yes (POSSIBLE STROKE/ TIA) Neurological Disorders: Stroke, TIA Reproductive System Hx Reproductive Disorders: No Sexually Transmitted Disease: No HIV/AIDS: No Genitourinary Hx Genitourinary Disorders: Yes (RENAL INSUFFICIENCY) Genitourinary Disorders: Benign Prostatic Hyperpl, Prostate Problems, Renal Failure Gastrointestinal Hx Gastrointestinal Disorders: Yes (GASTROPARESIS; GASTRITIS; DUODENITIS; COLON POLYPECTOMY) Gastrointestinal Disorders: Gastroesophageal Reflux, Pancreatitis, Polyps Musculoskeletal Hx Musculoskeletal Disorders: Yes (OLECRANON BURSITIS, CHRONIC NECK PAIN, DISH SYNDROME) Musculoskeletal Disorders: Degenerate Disk Disease, Arthritis, Chronic Back Pain Endocrine Hx Endocrine Disorders: Yes Endocrine Disorders: Diabetes, Insulin dep HEENT HX ENT Disorders: Yes (SINUS PROBLEMS) HEENT Disorders: Cataract Loss of Vision: Denies Hearing Impairment: Denies Psychosocial Hx Psychiatric Problems: Yes Behavioral Health Disorders: Anxiety Integumentary HX Skin/Integumentary Disorder: No Blood Transfusions Hx Blood Disorders: No Adverse Reaction to a Blood Tr: No Family Medical History Significant Family History: No Pertinent Family Hx Family Medial History: Cancer G8 BROTHER Cataract 19 FATHER 19 MOTHER G8 BROTHER G8 BROTHER G8 SISTER Congestive heart failure 19 FATHER 19 MOTHER Family history: Arthritis 19 FATHER 19 MOTHER G8 BROTHER G8 BROTHER G8 SISTER G8 SISTER DAUGHTER SON Family history: Breast disease DAUGHTER Family history: Cardiovascular disease 19 FATHER Family history: Diabetes mellitus 19 FATHER G8 BROTHER G8 SISTER Family history: Hypertension 19 FATHER 19 MOTHER G8 BROTHER G8 BROTHER G8 SISTER G8 SISTER DAUGHTER SON Family history: Thyroid disorder DAUGHTER Heart disease 19 FATHER 19 MOTHER G8 BROTHER Hypercholesterolemia 19 FATHER 19 MOTHER G8 BROTHER G8 BROTHER G8 SISTER Myocardial infarction 19 FATHER 19 MOTHER G8 BROTHER No Family History of: Abdominal aortic aneurysm Holt's disease Alcoholism Aphasia Cancer of colon Chest pain Congenital heart disease Cystic fibrosis Dementia Dysphagia Family history: Allergy Family history: Alzheimer's disease Family history: Asthma Family history: Coronary thrombosis Family history: Gastrointestinal disease Family history: Glaucoma Family history: Osteoporosis Headache Hearing loss Hereditary disease History of - anemia History of - disorder History of - respiratory disease History of drug abuse Human immunodeficiency virus (HIV) seropositivity Infertile Kidney disease Malignant neoplasm of lung Parkinson's disease Prostate cancer Psychotic disorder Seizure disorder Stroke Tuberculosis Visual impairment Physical Exam Vital Signs Vital Sign - Last 12Hours 09/27/16 09/27/16 15:44 16:06 Temp 98.2 Pulse 76 Resp 18 B/P (MAP) 122/70 Pulse Ox 95 O2 Delivery Room Air Capillary Refill : Less Than 3 Seconds General Appearance: No Apparent Distress, WD/WN, Other (FREQUENT MOUTH AND FOOT MOVEMENTS) HEENT: PERRL/EOMI, Other (EDENTULOUS, FREQUENT MOUTH MOVEMENTS/LIP LICKING) Respiratory: Normal Breath Sounds, No Accessory Muscle Use, No Respiratory Distress Cardiovascular: Regular Rate, Rhythm, No Edema, No JVD, No Murmur, Normal Peripheral Pulses Extremity: Normal Inspection, No Calf Tenderness, No Pedal Edema Neurologic/Psychiatric: Alert, Oriented x3, No Motor/Sensory Deficits, Normal Mood/Affect, field marketing manager II-XII Norm as Tested Skin: Normal Color, Warm/Dry Progress/Results/Core Measures Results/Orders Vital Signs/I&O Vital Sign - Last 12Hours 09/27/16 09/27/16 09/27/16 15:44 16:06 17:03 Temp 98.2 Pulse 76 72 73 Resp 18 18 18 B/P (MAP) 122/70 114/76 Pulse Ox 95 95 O2 Delivery Room Air Blood Pressure Mean: 89 Progress Note : Progress Note MONITOR SHOWS NSR RATE IN 60'S -70'S BP REMAINED STABLE, AND PT AMBULATED ALL AROUND ER AND VITALS IMMEDIATELY AFTERWARD WERE STABLE PT REMAINED ASYMPTOMATIC DURING ENTIRE ER STAY Departure Impression Impression: Primary Impression: REPORTED EPISODE OF HYPOTENSION Disposition: 01 HOME, SELF-CARE Condition: Stable Departure-Patient Inst. Referrals: LLUVIA ROUSE DO (PCP/Family) Primary Care Physician BISI GARCIA MD Patient Instructions: Orthostatic Hypotension (DC) Add. Discharge Instructions: CONTINUE YOUR MEDICATIONS PRESCRIBED FOLLOW UP WITH DR. GARCIA TOMORROW FOR FURTHER CARE RETURN TO ER IF SYMPTOMS WORSEN All discharge instructions reviewed with patient and/or family. Voiced understanding. ROMAIN KNIGHT DO September 27, 2016 16:17
[2016-09-27 17:03] VITALS: BP 105/69
== END 2016-09-27 17:02 | disposition home or self-care (01) ==
LOC: EDUNIT# 15:40 → ER 15:42
DX: I95.9 Hypotension, unspecified (principal); J44.9 Chronic obstructive pulmonary disease, unspecified; E11.9 Type 2 diabetes mellitus without complications; I48.2 Chronic atrial fibrillation; Z79.82 Long term (current) use of aspirin; Z79.01 Long term (current) use of anticoagulants; Z79.4 Long term (current) use of insulin; Z79.899 Other long term (current) drug therapy; Z98.890 Other specified postprocedural states; Z95.5 Presence of coronary angioplasty implant and graft; Z95.1 Presence of aortocoronary bypass graft; Z87.891 Personal history of nicotine dependence
CPT/HCPCS: 99283

== ENCOUNTER 2016-11-27 17:42 | Emergency (ER) | payer MEDICARE, MEDICAID ==
[~2016-11-27] VITALS: Ht 182.9 cm; Wt 86.6 kg
[~2016-11-27 17:42] MED LIST changes: -NAPR250T2 PO; +NAPR250T6 PO
[2016-11-27] MEDS ORDERED: NS IV 1000 ML 1,000 ML IV ONE ×2 (18:06→19:38)
--- NOTE | 2016-11-27 18:06 | ED Cardiac General ---
History of Present Illness General Chief Complaint: Cardiac/General Problems Stated Complaint: LOW BLOOD PRESSURE Source: patient, spouse Exam Limitations: no limitations History of Present Illness Time seen by provider: 18:00 Initial Comments patient presents with his to the [facility] conveyance with a chief complaint of low blood pressure. He states that he checks his blood pressure and his blood sugar anytime she feels off. For the past few days he has felt a little dizzy at times motion afternoon and when he checks his blood pressure get down in the 80s over 60s. he saw Dr. Stiles, cardiology Sunday and they stop the enalapril 5 mg. Since that time has continued to have the symptoms. He states his sugars never been low however use to they run in the mid 100s. The last few days to weeks they have actually been running high in the 2 to 300s range. This afternoon they were 325. He states he has noted the increased frequency but no burning or discharge. 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 He's had no falls. No syncope. Allergies and Home Medications Allergies Coded Allergies: celecoxib (Unverified Allergy, Mild, TAKES ASPIRIN AT HOME, 12/21/14) diclofenac (Unverified Allergy, Mild, TAKES ASPIRIN AT HOME, 12/21/14) naproxen (Unverified Allergy, Mild, TAKES ASPIRIN AT HOME, 12/21/14) rosuvastatin (Unverified Allergy, Mild, 08/14/08) Penicillins (Verified Allergy, Unknown, 08/03/05) amoxicillin (Verified Allergy, Unknown, 08/03/05) fenofibrate (Unverified Allergy, Unknown, 06/05/16) morphine (Verified Allergy, Unknown, TAKES HYDROCODONE AT HOME, 07/17/14) simvastatin (Unverified Allergy, Unknown, 06/05/16) Uncoded Allergies: GEMIFIBOROZIL (Allergy, Unknown, 06/05/16) Home Medications Apixaban 5 Mg Tablet, 5 MG PO BID, (Reported) Aspirin 81 Mg Tablet.dr 81 MG PO DAILY, (Reported) Baclofen 10 Mg Tablet, 10 MG PO TID PRN for MUSCLE SPASMS, (Reported) Cilostazol 100 Mg Tablet, 100 MG PO BID, (Reported) Digoxin 125 Mcg Tablet, 125 MCG PO DAILY, (Reported) Dronedarone HCl 400 Mg Tablet, 400 MG PO BID, (Reported) Fenofibrate,Micronized 134 Mg Capsule, 134 MG PO DAILY, (Reported) Fluticasone Propionate 16 Gm [place].susp, 2 SPRAYS NS DAILY PRN for CONGESTION, ( Reported) Gabapentin 300 Mg Capsule, 600 MG PO HS, (Reported) TAKES 2 (300 MG) CAPSULES Glipizide 10 Mg Tablet, 10 MG PO DAILY, (Reported) Insulin Detemir 100 Unit/1 Ml Insuln.pen, 43 UNIT SQ HS, (Reported) Metoprolol Tartrate 25 Mg Tablet, 25 MG PO BID, (Reported) Montelukast Sodium 10 Mg Tablet, 10 MG PO DAILY, (Reported) Nitroglycerin 0.4 Mg Tab.subl, 0.4 MG SL UD PRN for CHEST PAIN, (Reported) Pantoprazole Sodium 40 Mg Tablet.dr, 40 MG PO BID, (Reported) Pentoxifylline 400 Mg Tablet.er, 400 MG PO TID, (Reported) Pravastatin Sodium 80 Mg Tablet, 80 MG PO HS, (Reported) Sitagliptin Phosphate 100 Mg Tablet, 100 MG PO DAILY, (Reported) Tamsulosin HCl 0.4 Mg Cap.er.24h, 0.4 MG PO 1730, (Reported) Trazodone HCl 50 Mg Tablet, 50 MG PO HS, (Reported) Umeclidinium Brm/Vilanterol Tr 1 Each Blst.w.dev, 1 PUFF IH DAILY, (Reported) Review of Systems Constitutional: No chills, No diaphoresis, dizziness, No fever, No malaise, No weakness EENTM: No Blurred Vision, No Double Vision Respiratory: Denies Cough, Denies Shortness of Air Cardiovascular: Denies Chest Pain, Denies Edema, Irregular Heart Rate (history of atrial fibrillation), Denies Palpitations, Denies Syncope Gastrointestinal: Denies Abdominal Pain, Denies Constipated, Denies Diarrhea, Denies Nausea Genitourinary: Denies Burning, Denies Discharge, Frequency, Denies Flank Pain Musculoskeletal: No back pain, No joint pain Skin: No pruritus, No rash Psychiatric/Neurological: Denies Headache, Denies Numbness Endocrine: Increased Thrist, Increased Urine Past Gincxae-Mrfiff-Xmgtxr Hx Patient Social History Alcohol Use: Denies Use Recreational Drug Use: No Smoking Status: Current Everyday Smoker Type Used: Cigarettes Former Smoker/When Quit: May 31, 1999 2nd Hand Smoke Exposure: Yes Recent Foreign Travel: No Contact w/Someone Who Travel: No Recent Hopitalizations: No Immunizations Up To Date Tetanus Booster (TDap): Less than 5yrs PED Vaccines UTD: No Date of Pneumonia Vaccine: Jun 14, 2015 Date of Influenza Vaccine: Feb 12, 2016 Seasonal Allergies Seasonal Allergies: Yes Surgeries HX Surgeries: Yes Surgeries: Abdominal, Cardiac, CABG, Coronary Stent, Eye Surgery, Gallbladder, Joint Replacement, Open Heart Surgery, Orthopedic, Vascular Surgery Respiratory Hx Respiratory Disorders: Yes (CHRONIC DYSPNEA ON EXERTION) Respiratory Disorders: Sleep Apnea, COPD Cardiovascular Hx Cardiac Disorders: Yes Cardiac Disorders: Atrial Fibrillation, Coronary Artery Disease, Heart Attack, High Cholesterol, Hypertension, Peripheral Vascular Neurological Hx Neurological Disorders: Yes (POSSIBLE STROKE/ TIA) Neurological Disorders: Stroke, TIA Reproductive System Hx Reproductive Disorders: No Sexually Transmitted Disease: No HIV/AIDS: No Genitourinary Hx Genitourinary Disorders: Yes (RENAL INSUFFICIENCY) Genitourinary Disorders: Benign Prostatic Hyperpl, Prostate Problems, Renal Failure Gastrointestinal Hx Gastrointestinal Disorders: Yes (GASTROPARESIS; GASTRITIS; DUODENITIS; COLON POLYPECTOMY) Gastrointestinal Disorders: Gastroesophageal Reflux, Pancreatitis, Polyps Musculoskeletal Hx Musculoskeletal Disorders: Yes (OLECRANON BURSITIS, CHRONIC NECK PAIN, DISH SYNDROME) Musculoskeletal Disorders: Degenerate Disk Disease, Arthritis, Chronic Back Pain Endocrine Hx Endocrine Disorders: Yes Endocrine Disorders: Diabetes, Insulin dep HEENT HX ENT Disorders: Yes (SINUS PROBLEMS) HEENT Disorders: Cataract Loss of Vision: Denies Hearing Impairment: Denies Psychosocial Hx Psychiatric Problems: Yes Behavioral Health Disorders: Anxiety Integumentary HX Skin/Integumentary Disorder: No Blood Transfusions Hx Blood Disorders: No Adverse Reaction to a Blood Tr: No Family Medical History Significant Family History: No Pertinent Family Hx Family Medial History: Cancer G8 BROTHER Cataract 19 FATHER 19 MOTHER G8 BROTHER G8 BROTHER G8 SISTER Congestive heart failure 19 FATHER 19 MOTHER Family history: Arthritis 19 FATHER 19 MOTHER G8 BROTHER G8 BROTHER G8 SISTER G8 SISTER DAUGHTER SON Family history: Breast disease DAUGHTER Family history: Cardiovascular disease 19 FATHER Family history: Diabetes mellitus 19 FATHER G8 BROTHER G8 SISTER Family history: Hypertension 19 FATHER 19 MOTHER G8 BROTHER G8 BROTHER G8 SISTER G8 SISTER DAUGHTER SON Family history: Thyroid disorder DAUGHTER Heart disease 19 FATHER 19 MOTHER G8 BROTHER Hypercholesterolemia 19 FATHER 19 MOTHER G8 BROTHER G8 BROTHER G8 SISTER Myocardial infarction 19 FATHER 19 MOTHER G8 BROTHER No Family History of: Abdominal aortic aneurysm Robel's disease Alcoholism Aphasia Cancer of colon Chest pain Congenital heart disease Cystic fibrosis Dementia Dysphagia Family history: Allergy Family history: Alzheimer's disease Family history: Asthma Family history: Coronary thrombosis Family history: Gastrointestinal disease Family history: Glaucoma Family history: Osteoporosis Headache Hearing loss Hereditary disease History of - anemia History of - disorder History of - respiratory disease History of drug abuse Human immunodeficiency virus (HIV) seropositivity Infertile Kidney disease Malignant neoplasm of lung Parkinson's disease Prostate cancer Psychotic disorder Seizure disorder Stroke Tuberculosis Visual impairment Physical Exam Vital Signs Vital Sign - Last 12Hours 11/27/16 17:55 Temp 98.6 Pulse 76 Resp 18 B/P (MAP) 105/63 Pulse Ox 96 Capillary Refill : General Appearance: No Apparent Distress, WD/WN HEENT: PERRL/EOMI, Pharynx Normal Neck: Normal Inspection, Supple Respiratory: Lungs Clear, Normal Breath Sounds Cardiovascular: No Edema, No Gallop, No JVD, Normal Peripheral Pulses, Irregularly Irregular Gastrointestinal: Normal Bowel Sounds, Non Tender, Soft Extremity: Normal Capillary Refill, No Pedal Edema Neurologic/Psychiatric: Alert, Oriented x3 Skin: Normal Color, Warm/Dry Lymphatic: No Adenopathy Progress/Results/Core Measures Results/Orders Lab Results Laboratory Tests Test 11/27/16 18:10 11/27/16 18:32 Range/Units White Blood Count 8.7 4.3-11.0 10^3/uL Red Blood Count 4.58 4.35-5.85 10^6/uL Hemoglobin 13.6 13.3-17.7 G/DL Hematocrit 41 40-54 % Mean Corpuscular Volume 89 80-99 FL Mean Corpuscular Hemoglobin 30 25-34 PG Mean Corpuscular Hemoglobin Concent 34 32-36 G/DL Red Cell Distribution Width 13.4 10.0-14.5 % Platelet Count 300 130-400 10^3/uL Mean Platelet Volume 10.2 7.4-10.4 FL Neutrophils (%) (Auto) 65 42-75 % Lymphocytes (%) (Auto) 25 12-44 % Monocytes (%) (Auto) 8 0-12 % Eosinophils (%) (Auto) 2 0-10 % Basophils (%) (Auto) 0 0-10 % Neutrophils # (Auto) 5.6 1.8-7.8 X 10^3 Lymphocytes # (Auto) 2.2 1.0-4.0 X 10^3 Monocytes # (Auto) 0.7 0.0-1.0 X 10^3 Eosinophils # (Auto) 0.2 0.0-0.3 10^3/uL Basophils # (Auto) 0.0 0.0-0.1 10^3/uL Sodium Level 133 L 135-145 MMOL/L Potassium Level 4.5 3.6-5.0 MMOL/L Chloride Level 103 98-107 MMOL/L Carbon Dioxide Level 22 21-32 MMOL/L Anion Gap 8 5-14 MMOL/L Blood Urea Nitrogen 14 7-18 MG/DL Creatinine 2.11 H 0.60-1.30 MG/DL Estimat Glomerular Filtration Rate 31 BUN/Creatinine Ratio 7 Glucose Level 192 H 70-105 MG/DL Calcium Level 9.8 8.5-10.1 MG/DL Magnesium Level 1.7 L 1.8-2.4 MG/DL Total Bilirubin 0.6 0.1-1.0 MG/DL Aspartate Amino Transf (AST/SGOT) 15 5-34 U/L Alanine Aminotransferase (ALT/SGPT) 18 0-55 U/L Alkaline Phosphatase 58 40-136 U/L Troponin I < 0.30 <0.30 NG/ML B-Type Natriuretic Peptide 22.0 <100.0 PG/ML Total Protein 7.5 6.4-8.2 GM/DL Albumin 4.3 3.2-4.5 GM/DL Urine Color YELLOW Urine Clarity CLEAR Urine pH 5 5-9 Urine Specific [place] 1.020 1.016-1.022 Urine Protein 1+ H NEGATIVE Urine Glucose (UA) 3+ H NEGATIVE Urine Ketones NEGATIVE NEGATIVE Urine Nitrite NEGATIVE NEGATIVE Urine Bilirubin NEGATIVE NEGATIVE Urine Urobilinogen NORMAL NORMAL MG/DL Urine Leukocyte Esterase NEGATIVE NEGATIVE Urine RBC (Auto) NEGATIVE NEGATIVE Urine RBC NONE /HPF Urine WBC NONE /HPF Urine Crystals NONE /LPF Urine Bacteria NONE /HPF Urine Casts PRESENT /LPF Urine Hyaline Casts 5-10 H /LPF Urine Granular Casts 0-2 H /LPF Urine Mucus NEGATIVE /LPF Urine Culture Indicated NO My Orders Orders - WENDY SARMIENTO BNP (11/27/16 18:06) Cbc With Automated Diff (11/27/16 18:06) Comprehensive Metabolic Panel (11/27/16 18:06) Magnesium (11/27/16 18:06) Troponin I (11/27/16 18:06) Ua Culture If Indicated (11/27/16 18:06) Saline Lock/Iv-Start (11/27/16 18:06) Ns Iv 1000 Ml (Sodium Chloride 0.9%) (11/27/16 18:06) Ns Iv 1000 Ml (Sodium Chloride 0.9%) (11/27/16 19:38) Medications Given in ED Current Medications Medications Dose Ordered Sig/Alka Route Start Time Stop Time Status Last Admin Dose Admin Sodium Chloride 1,000 ml @ 0 mls/hr Q0M ONCE IV 11/27/16 18:06 11/27/16 18:09 DC 11/27/16 18:28 1,000 MLS/HR Sodium Chloride 1,000 ml @ 0 mls/hr Q0M ONCE IV 11/27/16 19:38 11/27/16 19:39 DC 11/27/16 19:45 1,000 MLS/HR Vital Signs/I&O Vital Sign - Last 12Hours 11/27/16 11/27/16 17:55 18:45 Temp 98.6 Pulse 76 62 71 78 Resp 18 B/P (MAP) 105/63 Pulse Ox 96 Progress Note #1: Time: 19:19 Progress Note Orthostatics were definitely positive with a systolic 75 on standing. His creatinine is also elevated which could've been from the recent enalapril as well as dehydration which could be secondary to blood sugars being out of control. We'll get some fluids back and him and reevaluate his orthostatics as well as His beta blockers severely down. He will then probably be okay to follow up outpatient. Progress Note #2: Time: 20:39 Progress Note Repeat orthostatics were much improved however on standing he still had a drop of 19 mmHg still given a second liter fluids and allow him to go home and follow up with his PCP. We will cut his Toprol in half. Departure Impression Impression: Primary Impression: Orthostatic hypotension Additional Impression: Hyperglycemia Disposition: 01 HOME, SELF-CARE Condition: Improved Departure-Patient Inst. Decision time for Depature: 20:39 Referrals: LLUVIA ROUES DO (PCP/Family) Primary Care Physician Patient Instructions: Orthostatic Hypotension (DC) Add. Discharge Instructions: Cut your metoprolol tablets in half until you see your primary doctor or your consumer credit counselor. Take your blood pressure daily in the morning minimally or if you start feeling dizzy or lightheaded. You should also check your blood sugar at that time. Drink plenty of fluids and make sure you're slow to get up from a laying down position with your legs dangling over the side of the bed for 15-20 seconds. Then when you stand up and spray stainer place for 5-10 seconds before taking off. This will reduce your chances of a fall. If you have any new or worrisome symptoms such as chest pain or shortness of breath he should return to the ER immediately. Otherwise follow up this week with your primary care physician. All discharge instructions reviewed with patient and/or family. Voiced understanding. Copy Copies To 1: LLUVIA ROUSE DO Copies To 2: BISI STILES MD, TITUS J Nov 27, 2016 18:06
[2016-11-27 18:14] LABS: BASOPHILS % (AUTO) 0 % (0-10); EOSINOPHILS # (AUTO) 0.2 10^3/uL (0.0-0.3); EOSINOPHILS % (AUTO) 2 % (0-10); LYMPHOCYTES # (AUTO) 2.2 X 10^3 (1.0-4.0); LYMPHOCYTES % (AUTO) 25 % (12-44); MEAN CORPUSCULAR HEMOGLOBIN 30 PG (25-34); MEAN CORPUSCULAR HGB CONC 34 G/DL (32-36); MEAN CORPUSCULAR VOLUME 89 FL (80-99); MEAN PLATELET VOLUME 10.2 FL (7.4-10.4); MONOCYTES # (AUTO) 0.7 X 10^3 (0.0-1.0); MONOCYTES % (AUTO) 8 % (0-12); NEUTROPHILS # (AUTO) 5.6 X 10^3 (1.8-7.8); NEUTROPHILS % (AUTO) 65 % (42-75); PLATELET COUNT 300 10^3/uL (130-400); RED BLOOD COUNT 4.58 10^6/uL (4.35-5.85); RED CELL DISTRIBUTION WIDTH 13.4 % (10.0-14.5); WHITE BLOOD COUNT 8.7 10^3/uL (4.3-11.0)
[2016-11-27 18:34] LABS: ALANINE AMINOTRANSFERASE 18 U/L (0-55); ALBUMIN 4.3 GM/DL (3.2-4.5); ANION GAP 8 MMOL/L (5-14); ASPARTATE AMINO TRANSFERASE 15 U/L (5-34); BILIRUBIN,TOTAL 0.6 MG/DL (0.1-1.0); BLOOD UREA NITROGEN 14 MG/DL (7-18); BUN/CREATININE RATIO 7; CALCIUM 9.8 MG/DL (8.5-10.1); CARBON DIOXIDE 22 MMOL/L (21-32); CHLORIDE 103 MMOL/L (98-107); CREATININE SERUM 2.11 MG/DL (0.60-1.30); GFR ESTIMATED 31; GLUCOSE 192 MG/DL (70-105); MAGNESIUM 1.7 MG/DL (1.8-2.4); POTASSIUM 4.5 MMOL/L (3.6-5.0); SODIUM 133 MMOL/L (135-145); TOTAL PROTEIN 7.5 GM/DL (6.4-8.2)
[2016-11-27 18:38] LABS: BILIRUBIN,URINE NEGATIVE (NEGATIVE); KETONES,URINE NEGATIVE (NEGATIVE); LEUKOCYTE ESTERASE ,URINE NEGATIVE (NEGATIVE); NITRITE,URINE NEGATIVE (NEGATIVE); PH,URINE 5 (5-9); PROTEIN,URINE 1+ (NEGATIVE); UROBILINOGEN,URINE NORMAL (NORMAL)
[2016-11-27 18:40] LABS: TROPONIN I < 0.30 NG/ML (<0.30)
[2016-11-27 18:45] LABS: GRANULAR CASTS,URINE 0-2 /LPF
[2016-11-27 21:06] VITALS: BP 136/86
--- OUTSIDE RECORDS SUMMARY | 2016-12-06 18:40 | XMS REPORT | Clinical Summary ---
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 If you do not see the information that you expected, contact Release of Information in the Health Information Management department at [phone] for further assistance in locating additional records.[facility] Allergies Not on File Current Medications Prescription Sig. Disp. Refills Start End Date Status Date pravastatin (PRAVACHOL) Take 80 mg by mouth at Active 80 mg tablet bedtime daily. pentoxifylline ER Take 400 mg by mouth Active (TRENTAL) 400 mg tablet three times daily. Take with food. montelukast (SINGULAIR) Take 10 mg by mouth at Active 10 mg tablet bedtime daily. cilostazol(+) (PLETAL) Take 100 mg by mouth Active 100 mg tablet twice daily. Take on an empty stomach at least 30 minutes before or 2 hours after food. aspirin EC 81 mg tablet Take 81 mg by mouth Active daily. Take with food. apixaban (ELIQUIS) 5 mg Take 5 mg by mouth twice Active tablet daily. enalapril (VASOTEC) 5 mg Take 5 mg by mouth daily. Active tablet fenofibrate (FENOGLIDE) Take 134 mg by mouth Active 120 mg tablet daily. Take with food. metoprolol tartrate Take 25 mg by mouth twice Active (LOPRESSOR) 25 mg tablet daily. dronedarone (MULTAQ) 400 Take 400 mg by mouth Active mg tablet twice daily with meals. glipiZIDE (GLUCOTROL) 10 Take 10 mg by mouth Active mg tablet daily. digoxin (LANOXIN) 125 mcg Take 125 mcg by mouth Active tablet daily. traZODone (DESYREL) 50 mg Take 50 mg by mouth at Active tablet bedtime as needed for Sleep. naproxen (NAPROSYN) 250 Take 250 mg by mouth Active mg tablet twice daily with meals. Take with food. baclofen (LIORESAL) 10 mg Take 10 mg by mouth three Active tablet times daily. nitroglycerin (NITRODUR) Apply 1 Patch to top of Active 0.1 mg/hr patch skin as directed daily. nitroglycerin (NITROSTAT) Place 0.4 mg under tongue Active 0.4 mg tablet every 5 minutes as needed for Chest Pain. Max of 3 tablets, call 911. gabapentin (NEURONTIN) Take 300 mg by mouth Active 300 mg capsule every 8 hours. insulin aspart (NOVOLOG) Inject 5 Units under the Active 100 unit/mL injection skin three times daily with meals. Active Problems Problem Noted Date Coronary artery disease involving [place] coronary artery 10/24/2016 Overview: 2000 CABG x 4 02/17/12 PTCA BMS to vein graft to the OM 03/02/16 severe in-stent restenosis in the SVG to the OM with successful PCI, no residual stenosis, patent VG to RCA VG to the diag artery and AMANDA to the LAD occluded [place] vessels proximally, small vessel disease distally 09/25/16 [facility] - severe [place] disease, patent graft to RCA, diagonal LAD, probably occluded graft to OM - felt to be reason for chest pain in stent severe restenosis in the SVG to OM with successfull PCI, no residual disease PVD (peripheral vascular disease) ([facility]) 10/24/2016 Overview: 03/02/16 peripheral angio: severe PAD with total occlusion of the post tibial and peroneal artery at the trifurcation, level reconstructed by collateral down at the ankle with occlusion at the ant tibial artery at the ankle level. Mod PAD on LLE down to the trifurcation Carotid artery disease ([facility]) 10/24/2016 Overview: 10/19/16 carotid US - mild stenosis, nonobstructive disease bilaterally PAF (paroxysmal atrial fibrillation) ([facility]) 10/24/2016 Overview: 03/24/16 LINQ implantation Essential hypertension 10/24/2016 Hyperlipidemia 10/24/2016 DJD (degenerative joint disease) 10/24/2016 Cardiac device in situ 10/24/2016 Encounters Date Type Specialty Care Team Description 10/24/2016 Hospital Cardiology Ricardo Grover MD Encounter 10/24/2016 Office Visit Cardiology Ricardo Grover MD New Patient ( Atrial Fibrillation) 10/24/2016 Ancillary Cardiology Ricarod Grover MD Palpitations ( Primary Dx) Orders 09/25/2016 Telephone Cardiology Devang Anaya Records Request ( Called Dr. Chance Ward MD clinic and spoke with Pooja. She told me that their office does not have the information I need and I should request records from the pts administrator health care facility Dr. Cari Stiles MD. Records have been received from administrator health care facility.) 09/22/2016 Documentation Cardiology Devang Anaya Records Request (2nd attempt Chance Ward DO) 09/20/2016 Patient Profile Cardiology Devang Anaya New Patient ( req. MPE for EP eval and poss ablation ) 09/20/2016 Documentation Cardiology Devang Anaya Records Request (Cari Stiles MD/ [address] [place], [place] (f) [phone]) 09/20/2016 Documentation Cardiology Devang Anaya Records Request (Chance Ward DO) from Last 3 Months Social History Tobacco Use Types Packs/Day Years Used Date Former Smoker 3 Quit: 10/25/1999 Alcohol Use Drinks/Week oz/Week Comments No Sex Assigned at Date Recorded Not on file Last Filed Vital Signs Vital Sign Reading Time Taken Blood Pressure 106/60 10/24/2016 1:05 PM CDT Pulse 60 10/24/2016 1:05 PM CDT Temperature - - Respiratory Rate - - Oxygen Saturation - - Inhaled Oxygen - - Concentration Weight 90.3 kg (199 lb) 10/24/2016 1:05 PM CDT Height 182.9 cm (6') 10/24/2016 1:05 PM CDT Body Mass Index 26.99 10/24/2016 1:05 PM CDT Plan of Treatment Health Maintenance Due Date Last Done Comments PHYSICAL (COMPREHENSIVE) 1947 EXAM PERTUSSIS VACCINE 1953 TETANUS VACCINE 1959 COLORECTAL CANCER 1992 SCREENING SHINGLES VACCINE 2002 ABDOMINAL AORTIC ANEURYSM 2007 SCREENING PREVNAR/PNEUMOVAX (#1) 2007 INFLUENZA VACCINE 01/12/2017 Results * DEVICE EVALUATION - ILR (10/24/2016 2:18 PM) Component Value Ref Range ILR Current Monitoring Period ILR Date of Last Daily Connection Permanent Comments Permanent Comments 2 ILR History of Afib ILR Date AF Diagnosed On AntiCoag Date 10/2016 Generator Implnat Date 04/01/16 Generator Model # Device Implanted By Dr Stiles Generator Serial # [id number] EP Device Followed by Dr Sampson Name Device [place] Transmitter ILR Lifetime Events as of 10/24/16 Datetion ILR Symptom Events Since 0 Last Interrogation ILR Symptom Lifetime 0 Events as of ILR Symptom Duration ILR Tachy Events Since 0 Last Interrogation ILR Tachy Lifetime Events 0 as of ILR Tachy Rate ILR Tachy Duration ILR Pause Events Since 0 Last Interrogation ILR Pause Lifetime Events 0 as of ILR Pause Duration ILR Viral Events Since 0 Last Interrogation ILR Viral Lifetime Events 0 as of ILR Viral Rate ILR Viral Duration ILR AT Events Since Last 0 Interrogation ILR AT Lifetime Events as 0 of ILR AT Rate ILR AT Duration ILR AF Events Since Last 110 Interrogation ILR AF Lifetime Events as 0.5% of ILR Percent Time in AT/AF Events Since Last Interrogation ILR Percent Time in AT/AF Lifetime of Events as of ILR Percent Time in AT/AF Duration ILR Battery Status good ILR Presenting ECG Strip SR 70bpm 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 Interrogated to evaluate for AT/ AFLutter. Report/strips to MPE in clinic. brief but relatively frequent episodes of AFIB, although some of the recordings suggest potential small flutter waves. 2 min to 34 min since 10-05-16 events. 110 total events. Max HR 88-143bpm, ave 77-128bpm. Longest by episode list1 hr 4minOn August 31 ave HR 98bpm, MHR 154bpm. Routed MPE for co sign- review. from Last 3 Months
[2017-03-18] MEDS ORDERED: PRD20T PO (19:17)
[2017-03-18] MEDS ORDERED: BACL20TA PO (19:17)
== END 2016-11-27 21:06 | disposition home or self-care (01) ==
LOC: EDUNIT# 17:42 → ER 17:44
DX: I95.1 Orthostatic hypotension (principal); E11.65 Type 2 diabetes mellitus with hyperglycemia; F41.9 Anxiety disorder, unspecified; M47.9 Spondylosis, unspecified; K21.9 Gastro-esophageal reflux disease without esophagitis; I10 Essential (primary) hypertension; N28.9 Disorder of kidney and ureter, unspecified; N40.0 Benign prostatic hyperplasia without lower urinary tract symptoms; I48.91 Unspecified atrial fibrillation; I25.10 Atherosclerotic heart disease of native coronary artery without angina pectoris; I25.2 Old myocardial infarction; E78.00 Pure hypercholesterolemia, unspecified; F17.210 Nicotine dependence, cigarettes, uncomplicated; Z79.82 Long term (current) use of aspirin; Z79.84 Long term (current) use of oral hypoglycemic drugs; Z79.4 Long term (current) use of insulin; Z95.5 Presence of coronary angioplasty implant and graft; Z95.1 Presence of aortocoronary bypass graft
CPT/HCPCS: 36415; 80053; 81000; 83735; 83880; 84484; 85025; 96360; 96361

== ENCOUNTER 2016-12-05 03:32 | Observation (INO) | payer MEDICARE, MEDICAID ==
[~2016-12-05] VITALS: Ht 182.9 cm; Wt 87.4 kg
[2016-12-05] MEDS ORDERED: fentaNYL INJECTION 100 MCG/2 ML AMP IVP STA (03:50)
[2016-12-05] MEDS ORDERED: NS IV 500 ML 500 ML IV ONE (03:50)
--- NOTE | 2016-12-05 03:50 | ED Chest Pain ---
General Chief Complaint: Chest Wall/Rib Pain Stated Complaint: CP Source: patient, EMS Exam Limitations: no limitations History of Present Illness Time seen by provider: 03:43 Initial Comments Patient presents by EMS to the ER with chief complaint of 3 days chest pain substernal and midline but feels like pain all over 5 out of 10 right now. He is received aspirin 324 mg by EMS. He has a history of four-vessel bypass in early and a few years ago he had a catheter by Dr. Stiles. He does not have any thyroid problems any still smokes about half pack a day. He does have blood pressure problems and is not aware of what all meds he takes. He is an incomplete historian. He denies any nausea, chills, fevers, sweats, weakness, numbness, paresthesia. The pain is progressively gotten worse when he can stand day and has taken 2 nitroglycerin himself and EMS is given him 3 nitroglycerin en route. Patient points to his epigastric region and indicates the pain wraps around both sides towards his back. He has not drank in many decades however he does have diabetes and he feels that the last to 3 weeks his sugars have been extremely hard to get under control. Allergies and Home Medications Allergies Coded Allergies: celecoxib (Unverified Allergy, Mild, TAKES ASPIRIN AT HOME, 12/21/14) diclofenac (Unverified Allergy, Mild, TAKES ASPIRIN AT HOME, 12/21/14) naproxen (Unverified Allergy, Mild, TAKES ASPIRIN AT HOME, 12/21/14) rosuvastatin (Unverified Allergy, Mild, 08/14/08) Penicillins (Verified Allergy, Unknown, 08/03/05) amoxicillin (Verified Allergy, Unknown, 08/03/05) fenofibrate (Unverified Allergy, Unknown, 06/05/16) morphine (Verified Allergy, Unknown, TAKES HYDROCODONE AT HOME, 07/17/14) simvastatin (Unverified Allergy, Unknown, 06/05/16) Uncoded Allergies: GEMIFIBOROZIL (Allergy, Unknown, 06/05/16) Home Medications Apixaban 5 Mg Tablet, 5 MG PO BID, (Reported) Aspirin 81 Mg Tablet.dr, 81 MG PO DAILY, (Reported) Baclofen 10 Mg Tablet, 10 MG PO TID PRN for MUSCLE SPASMS, (Reported) Cilostazol 100 Mg Tablet, 100 MG PO BID, (Reported) Digoxin 125 Mcg Tablet, 125 MCG PO DAILY, (Reported) Dronedarone HCl 400 Mg Tablet, 400 MG PO BID, (Reported) Fenofibrate,Micronized 134 Mg Capsule, 134 MG PO DAILY, (Reported) Fluticasone Propionate 16 Gm [place].susp, 2 SPRAYS NS DAILY PRN for CONGESTION, ( Reported) Gabapentin 300 Mg Capsule, 600 MG PO HS, (Reported) TAKES 2 (300 MG) CAPSULES Glipizide 10 Mg Tablet, 10 MG PO DAILY, (Reported) Insulin Detemir 100 Unit/1 Ml Insuln.pen, 43 UNIT SQ HS, (Reported) Metoprolol Tartrate 25 Mg Tablet, 25 MG PO BID, (Reported) Montelukast Sodium 10 Mg Tablet, 10 MG PO DAILY, (Reported) Nitroglycerin 0.4 Mg Tab.subl, 0.4 MG SL UD PRN for CHEST PAIN, (Reported) Pantoprazole Sodium 40 Mg Tablet.dr, 40 MG PO BID, (Reported) Pentoxifylline 400 Mg Tablet.er, 400 MG PO TID, (Reported) Pravastatin Sodium 80 Mg Tablet, 80 MG PO HS, (Reported) Sitagliptin Phosphate 100 Mg Tablet, 100 MG PO DAILY, (Reported) Tamsulosin HCl 0.4 Mg Cap.er.24h, 0.4 MG PO 1730, (Reported) Trazodone HCl 50 Mg Tablet, 50 MG PO HS, (Reported) Umeclidinium Brm/Vilanterol Tr 1 Each Blst.w.dev, 1 PUFF IH DAILY, (Reported) Review of Systems Constitutional: No chills, No diaphoresis, No fever, No malaise EENTM: No Blurred Vision, No Eye Pain Respiratory: Denies Cough, Shortness of Air Cardiovascular: See HPI, Chest Pain, Denies Edema, Denies Irregular Heart Rate , Denies Syncope Gastrointestinal: Denies Constipated, Denies Diarrhea, Denies Nausea Genitourinary: Denies Burning, Denies Discharge Musculoskeletal: No back pain, No joint pain Skin: No pruritus, No rash Psychiatric/Neurological: Denies Numbness, Denies Paresthesia Past Ywrrchr-Ttcyoa-Sueqco Hx Patient Social History Alcohol Use: Denies Use Recreational Drug Use: No Smoking Status: Current Everyday Smoker Type Used: Cigarettes Former Smoker/When Quit: May 31, 1999 2nd Hand Smoke Exposure: Yes Recent Foreign Travel: No Contact w/Someone Who Travel: No Recent Hopitalizations: No Immunizations Up To Date Tetanus Booster (TDap): Less than 5yrs PED Vaccines UTD: No Date of Pneumonia Vaccine: Jun 14, 2015 Date of Influenza Vaccine: Feb 12, 2016 Seasonal Allergies Seasonal Allergies: Yes Surgeries HX Surgeries: Yes Surgeries: Abdominal, Cardiac, CABG, Coronary Stent, Eye Surgery, Gallbladder, Joint Replacement, Open Heart Surgery, Orthopedic, Vascular Surgery Respiratory Hx Respiratory Disorders: Yes (CHRONIC DYSPNEA ON EXERTION) Respiratory Disorders: Sleep Apnea, COPD Cardiovascular Hx Cardiac Disorders: Yes Cardiac Disorders: Atrial Fibrillation, Coronary Artery Disease, Heart Attack, High Cholesterol, Hypertension, Peripheral Vascular Neurological Hx Neurological Disorders: Yes (POSSIBLE STROKE/ TIA) Neurological Disorders: Stroke, TIA Reproductive System Hx Reproductive Disorders: No Sexually Transmitted Disease: No HIV/AIDS: No Genitourinary Hx Genitourinary Disorders: Yes (RENAL INSUFFICIENCY) Genitourinary Disorders: Benign Prostatic Hyperpl, Prostate Problems, Renal Failure Gastrointestinal Hx Gastrointestinal Disorders: Yes (GASTROPARESIS; GASTRITIS; DUODENITIS; COLON POLYPECTOMY) Gastrointestinal Disorders: Gastroesophageal Reflux, Pancreatitis, Polyps Musculoskeletal Hx Musculoskeletal Disorders: Yes (OLECRANON BURSITIS, CHRONIC NECK PAIN, DISH SYNDROME) Musculoskeletal Disorders: Degenerate Disk Disease, Arthritis, Chronic Back Pain Endocrine Hx Endocrine Disorders: Yes Endocrine Disorders: Diabetes, Insulin dep HEENT HX ENT Disorders: Yes (SINUS PROBLEMS) HEENT Disorders: Cataract Loss of Vision: Denies Hearing Impairment: Denies Psychosocial Hx Psychiatric Problems: Yes Behavioral Health Disorders: Anxiety Integumentary HX Skin/Integumentary Disorder: No Blood Transfusions Hx Blood Disorders: No Adverse Reaction to a Blood Tr: No Family Medical History Significant Family History: No Pertinent Family Hx Family Medial History: Cancer G8 BROTHER Cataract 19 FATHER 19 MOTHER G8 BROTHER G8 BROTHER G8 SISTER Congestive heart failure 19 FATHER 19 MOTHER Family history: Arthritis 19 FATHER 19 MOTHER G8 BROTHER G8 BROTHER G8 SISTER G8 SISTER DAUGHTER SON Family history: Breast disease DAUGHTER Family history: Cardiovascular disease 19 FATHER Family history: Diabetes mellitus 19 FATHER G8 BROTHER G8 SISTER Family history: Hypertension 19 FATHER 19 MOTHER G8 BROTHER G8 BROTHER G8 SISTER G8 SISTER DAUGHTER SON Family history: Thyroid disorder DAUGHTER Heart disease 19 FATHER 19 MOTHER G8 BROTHER Hypercholesterolemia 19 FATHER 19 MOTHER G8 BROTHER G8 BROTHER G8 SISTER Myocardial infarction 19 FATHER 19 MOTHER G8 BROTHER No Family History of: Abdominal aortic aneurysm Sargent's disease Alcoholism Aphasia Cancer of colon Chest pain Congenital heart disease Cystic fibrosis Dementia Dysphagia Family history: Allergy Family history: Alzheimer's disease Family history: Asthma Family history: Coronary thrombosis Family history: Gastrointestinal disease Family history: Glaucoma Family history: Osteoporosis Headache Hearing loss Hereditary disease History of - anemia History of - disorder History of - respiratory disease History of drug abuse Human immunodeficiency virus (HIV) seropositivity Infertile Kidney disease Malignant neoplasm of lung Parkinson's disease Prostate cancer Psychotic disorder Seizure disorder Stroke Tuberculosis Visual impairment Physical Exam Vital Signs Vital Sign - Last 12Hours 12/05/16 12/05/16 03:43 03:47 Temp 98.5 Pulse 77 Resp 16 B/P (MAP) 122/74 Pulse Ox 97 O2 Delivery Nasal Cannula O2 Flow Rate 2.00 Capillary Refill : General Appearance: WD/WN, Anxious, Mild Distress HEENT: PERRL/EOMI, Pharynx Normal Neck: Normal Inspection, Supple Respiratory: Chest Non Tender, Lungs Clear, Normal Breath Sounds, No Respiratory Distress Cardiovascular: Regular Rate, Rhythm, No Edema, No JVD, Normal Peripheral Pulses Gastrointestinal: Normal Bowel Sounds, Non Tender, Soft Extremity: Normal Capillary Refill, Normal Inspection, No Pedal Edema Neurologic/Psychiatric: Alert, Oriented x3 Skin: Normal Color, Warm/Dry Progress/Results/Core Measures Results/Orders Lab Results Laboratory Tests Test 12/05/16 03:46 Range/Units White Blood Count 6.7 4.3-11.0 10^3/uL Red Blood Count 4.24 L 4.35-5.85 10^6/uL Hemoglobin 12.4 L 13.3-17.7 G/DL Hematocrit 37 L 40-54 % Mean Corpuscular Volume 88 80-99 FL Mean Corpuscular Hemoglobin 29 25-34 PG Mean Corpuscular Hemoglobin Concent 33 32-36 G/DL Red Cell Distribution Width 13.5 10.0-14.5 % Platelet Count 256 130-400 10^3/uL Mean Platelet Volume 10.1 7.4-10.4 FL Neutrophils (%) (Auto) 57 42-75 % Lymphocytes (%) (Auto) 31 12-44 % Monocytes (%) (Auto) 10 0-12 % Eosinophils (%) (Auto) 2 0-10 % Basophils (%) (Auto) 0 0-10 % Neutrophils # (Auto) 3.8 1.8-7.8 X 10^3 Lymphocytes # (Auto) 2.1 1.0-4.0 X 10^3 Monocytes # (Auto) 0.7 0.0-1.0 X 10^3 Eosinophils # (Auto) 0.2 0.0-0.3 10^3/uL Basophils # (Auto) 0.0 0.0-0.1 10^3/uL Prothrombin Time 15.6 H 12.2-14.7 SEC INR Comment 1.3 0.8-1.4 Activated Partial Thromboplast Time 30 24-35 SEC Sodium Level 141 135-145 MMOL/L Potassium Level 3.6 3.6-5.0 MMOL/L Chloride Level 105 98-107 MMOL/L Carbon Dioxide Level 23 21-32 MMOL/L Anion Gap 13 5-14 MMOL/L Blood Urea Nitrogen 12 7-18 MG/DL Creatinine 1.54 H 0.60-1.30 MG/DL Estimat Glomerular Filtration Rate 44 BUN/Creatinine Ratio 8 Glucose Level 161 H 70-105 MG/DL Calcium Level 9.4 8.5-10.1 MG/DL Magnesium Level 2.2 1.8-2.4 MG/DL Total Bilirubin 0.4 0.1-1.0 MG/DL Aspartate Amino Transf (AST/SGOT) 14 5-34 U/L Alanine Aminotransferase (ALT/SGPT) 18 0-55 U/L Alkaline Phosphatase 53 40-136 U/L Myoglobin 56.1 10.0-92.0 NG/ML Troponin I < 0.30 <0.30 NG/ML B-Type Natriuretic Peptide 19.1 <100.0 PG/ML Total Protein 6.8 6.4-8.2 GM/DL Albumin 3.9 3.2-4.5 GM/DL Amylase Level 188 H 25-125 U/L Lipase 535 H 8-78 U/L My Orders Orders - WENDY SARMIENTO Cbc With Automated Diff (12/05/16 03:50) Magnesium (12/05/16 03:50) Chest 1 View, Ap/Pa Only (12/05/16 03:50) Ekg Tracing (12/05/16 03:50) Cardiac Profile 1 (12/05/16 03:50) Comprehensive Metabolic Panel (12/05/16 03:50) Myoglobin Serum (12/05/16 03:50) Protime With Inr (12/05/16 03:50) Partial Thromboplastin Time (12/05/16 03:50) O2 (12/05/16 03:50) Monitor-Rhythm Ecg Trace Only (12/05/16 03:50) Lipid Panel (12/06/16 06:00) Saline Lock/Iv-Start (12/05/16 03:50) Amylase (12/05/16 03:50) BNP (12/05/16 03:50) Saline Lock/Iv-Start (12/05/16 03:50) Ns Iv 500 Ml (Sodium Chloride 0.9%) (12/05/16 03:50) Fentanyl Injection (Sublimaze Injection (12/05/16 03:50) Ondansetron Injection (Zofran Injectio (12/05/16 04:00) Amylase (12/05/16 04:44) Us Pancreas [id number] (12/05/16 04:52) Lipase (12/05/16 04:53) Fentanyl Injection (Sublimaze Injection (12/05/16 05:00) Medications Given in ED Current Medications Medications Dose Ordered Sig/Alka Route Start Time Stop Time Status Last Admin Dose Admin Fentanyl Citrate 50 mcg ONCE ONCE IVP 12/05/16 05:00 12/05/16 05:01 DC 12/05/16 05:13 50 MCG Ondansetron HCl 4 mg ONCE ONCE IVP 12/05/16 04:00 12/05/16 04:01 DC 12/05/16 03:58 4 MG Sodium Chloride 500 ml @ 0 mls/hr Q0M ONCE IV 12/05/16 03:50 12/05/16 03:53 DC 12/05/16 05:14 0 MLS/HR Vital Signs/I&O Vital Sign - Last 12Hours 12/05/16 12/05/16 03:43 03:47 Temp 98.5 Pulse 77 Resp 16 B/P (MAP) 122/74 Pulse Ox 97 96 O2 Delivery Nasal Cannula Nasal Cannula O2 Flow Rate 2.00 2.00 Progress Note #1: Time: 04:11 Progress Note Chest pain with significant heart history. He's gotten several doses nitroglycerin with minimal improvement. He started gotten aspirin will start working him up and he'll probably need to stay on observation. Progress Note #2: Time: 04:34 Progress Note Patient's pain is better with some fluids he's received a liter from the time EMS got him and has another 500 bolus to follow after the BNP is back. His amylase is elevated which goes along with his epigastric pain. He states he has not drank in 30 years however he has had pancreatitis in the past. We'll go ahead and get a CT scan of his belly without contrast given he has CKD. Progress Note #3: Time: 04:54 Progress Note Review the CT scan from August 2016 when the patient was noted to have inflammation in the area of the duodenum and pancreas. It was duodenitis versus diverticulitis versus pancreatitis. I would opt for a CT scan with contrast but his GFR of low 40s is not making this a very safe option today so instead we will get an ultrasound of the pancreas and add a lipase. ECG Initial ECG Impression Date: Dec 05, 2016 Initial ECG Impression Time: 03:43 Initial ECG Rate: 78 Initial ECG Rhythm: Normal Sinus Initial ECG Intervals: Normal Initial ECG Impression: Normal, Nonspecific Changes Initial ECG Comparisson: Unchanged Comment No ST elevation or depression. Diagnostic Imaging Diagonstic Imaging: Xray Plain Films/CT/US/NM/MRI: chest Comments No acute cardiopulmonary processes noted. Reviewed: Reviewed by Me Diagonstic Imaging: Ultrasound Plain Films/CT/US/NM/MRI: abdomen (pancreas) Comments Unable to identify pancreas Reviewed: Reviewed [facility] Study, Reviewed by Me Departure Impression Impression: Primary Impression: Chest pain Qualified Codes: R07.9 - Chest pain, unspecified Additional Impression: ACS (acute coronary syndrome) Disposition: ADMITTED INPATIENT (obs) Condition: Stable Decision to Admit Reason: Admit from ER (General) Decision to Admit/Date: Dec 05, 2016 Time/Decision to Admit Time: 05:28 Departure-Patient Inst. Referrals: LLUVIA ROUSE DO (PCP/Family) Primary Care Physician Copy Copies To 1: LLUVIA ROUSE TITUS J Dec 05, 2016 03:49
[2016-12-05] MEDS ORDERED: ONDANSETRON 4 MG/2 ML (SDV) Z0FRAN IVP ONE (04:00)
[2016-12-05 04:01] LABS: BASOPHILS % (AUTO) 0 % (0-10); EOSINOPHILS # (AUTO) 0.2 10^3/uL (0.0-0.3); EOSINOPHILS % (AUTO) 2 % (0-10); LYMPHOCYTES # (AUTO) 2.1 X 10^3 (1.0-4.0); LYMPHOCYTES % (AUTO) 31 % (12-44); MEAN CORPUSCULAR HEMOGLOBIN 29 PG (25-34); MEAN CORPUSCULAR HGB CONC 33 G/DL (32-36); MEAN CORPUSCULAR VOLUME 88 FL (80-99); MEAN PLATELET VOLUME 10.1 FL (7.4-10.4); MONOCYTES # (AUTO) 0.7 X 10^3 (0.0-1.0); MONOCYTES % (AUTO) 10 % (0-12); NEUTROPHILS # (AUTO) 3.8 X 10^3 (1.8-7.8); NEUTROPHILS % (AUTO) 57 % (42-75); PLATELET COUNT 256 10^3/uL (130-400); RED BLOOD COUNT 4.24 10^6/uL (4.35-5.85); RED CELL DISTRIBUTION WIDTH 13.5 % (10.0-14.5); WHITE BLOOD COUNT 6.7 10^3/uL (4.3-11.0)
[2016-12-05 04:15] LABS: INR 1.3 (0.8-1.4); PROTHROMBIN TIME PATIENT 15.6 SEC (12.2-14.7)
[2016-12-05 04:27] LABS: ALANINE AMINOTRANSFERASE 18 U/L (0-55); ALBUMIN 3.9 GM/DL (3.2-4.5); AMYLASE 188 U/L (25-125); ANION GAP 13 MMOL/L (5-14); ASPARTATE AMINO TRANSFERASE 14 U/L (5-34); BILIRUBIN,TOTAL 0.4 MG/DL (0.1-1.0); BLOOD UREA NITROGEN 12 MG/DL (7-18); BUN/CREATININE RATIO 8; CALCIUM 9.4 MG/DL (8.5-10.1); CARBON DIOXIDE 23 MMOL/L (21-32); CHLORIDE 105 MMOL/L (98-107); CREATININE SERUM 1.54 MG/DL (0.60-1.30); GFR ESTIMATED 44; GLUCOSE 161 MG/DL (70-105); MAGNESIUM 2.2 MG/DL (1.8-2.4); POTASSIUM 3.6 MMOL/L (3.6-5.0); SODIUM 141 MMOL/L (135-145); TOTAL PROTEIN 6.8 GM/DL (6.4-8.2)
[2016-12-05 04:40] LABS: MYOGLOBIN SERUM 56.1 NG/ML (10.0-92.0)
[2016-12-05] MEDS ORDERED: fentaNYL INJECTION 100 MCG/2 ML AMP IVP ONE (05:00)
[2016-12-05 06:00] VITALS: BP 153/82
[2016-12-05] MEDS: NS IV 1000 ML 1,000 ML IV SCH ×2 (06:27→17:06)
--- NOTE | 2016-12-05 07:07 | History & Physicial ---
History of Present Illness History of Present Illness Reason for visit/HPI chief complaint chest pain started 3 days ago. Patient went around the back. No sweating. Patient had history of pancreatitis before and feels like this. Patient did receive nitroglycerin and helped the pain. Patient has history of heart disease with CABG. Patient has history of pancreatitis previously. Surgeries heart, back, elbow,. Family history of diabetes and heart disease. Denies asthma TB lung disease cancer Date of Admission Dec 05, 2016 at 05:30 Time Seen by Provider: 06:50 I consulted on this patient on 12/05/16 07:03 Attending Physician Chance Rouse DO Admitting Physician Chance Rouse DO Consult Allergies and Home Medications Allergies Coded Allergies: celecoxib (Unverified Allergy, Mild, TAKES ASPIRIN AT HOME, 12/21/14) diclofenac (Unverified Allergy, Mild, TAKES ASPIRIN AT HOME, 12/21/14) naproxen (Unverified Allergy, Mild, TAKES ASPIRIN AT HOME, 12/21/14) rosuvastatin (Unverified Allergy, Mild, 08/14/08) Penicillins (Verified Allergy, Unknown, 08/03/05) amoxicillin (Verified Allergy, Unknown, 08/03/05) fenofibrate (Unverified Allergy, Unknown, 06/05/16) morphine (Verified Allergy, Unknown, TAKES HYDROCODONE AT HOME, 07/17/14) simvastatin (Unverified Allergy, Unknown, 06/05/16) Uncoded Allergies: GEMIFIBOROZIL (Allergy, Unknown, 06/05/16) Home Medications Apixaban 5 Mg Tablet, 5 MG PO BID, (Reported) Aspirin 81 Mg Tablet.dr, 81 MG PO DAILY, (Reported) Baclofen 10 Mg Tablet, 10 MG PO TID PRN for MUSCLE SPASMS, (Reported) Cilostazol 100 Mg Tablet, 100 MG PO BID, (Reported) Digoxin 125 Mcg Tablet, 125 MCG PO DAILY, (Reported) Dronedarone HCl 400 Mg Tablet, 400 MG PO BID, (Reported) Fenofibrate,Micronized 134 Mg Capsule, 134 MG PO DAILY, (Reported) Fluticasone Propionate 16 Gm [place].susp, 2 SPRAYS NS DAILY PRN for CONGESTION, ( Reported) Gabapentin 300 Mg Capsule, 600 MG PO HS, (Reported) TAKES 2 (300 MG) CAPSULES Glipizide 10 Mg Tablet, 10 MG PO DAILY, (Reported) Insulin Detemir 100 Unit/1 Ml Insul[place].pen, 43 UNIT SQ HS, (Reported) Metoprolol Tartrate 25 Mg Tablet, 25 MG PO BID, (Reported) Montelukast Sodium 10 Mg Tablet, 10 MG PO DAILY, (Reported) Nitroglycerin 0.4 Mg Tab.subl, 0.4 MG SL UD PRN for CHEST PAIN, (Reported) Pantoprazole Sodium 40 Mg Tablet.dr, 40 MG PO BID, (Reported) Pentoxifylline 400 Mg Tablet.er, 400 MG PO TID, (Reported) Pravastatin Sodium 80 Mg Tablet, 80 MG PO HS, (Reported) Sitagliptin Phosphate 100 Mg Tablet, 100 MG PO DAILY, (Reported) Tamsulosin HCl 0.4 Mg Cap.er.24h, 0.4 MG PO 1730, (Reported) Trazodone HCl 50 Mg Tablet, 50 MG PO HS, (Reported) Umeclidinium Brm/Vilanterol Tr 1 Each Blst.w.dev, 1 PUFF IH DAILY, (Reported) Past Lbrxwji-Vurizd-Dacxph Hx Patient Social History Marrital Status: Employed/Student: unemployed Alcohol Use: Denies Use Recreational Drug Use: No Smoking Status: Former Smoker Former smoker/When Quit: May 31, 1999 Type Used: Cigarettes 2nd Hand Smoke Exposure: Yes Physical Abuse Screen: No Sexual Abuse: No Recent Foreign Travel: No Contact w/other who traveled: No Recent Hopitalizations: No Recent Infectious Disease Expo: No Immunizations Up To Date Tetanus Booster (TDap): Less than 5yrs Date of Pneumonia Vaccine: Jun 14, 2015 Date of Influenza Vaccine: Feb 12, 2016 Seasonal Allergies Seasonal Allergies: Yes Surgeries HX Surgeries: Yes Surgeries: Abdominal, Cardiac, CABG, Coronary Stent, Eye Surgery, Gallbladder, Joint Replacement, Open Heart Surgery, Orthopedic, Vascular Surgery Respiratory Hx Respiratory Disorders: Yes (CHRONIC DYSPNEA ON EXERTION) Respiratory Disorders: COPD Cardiovascular Hx Cardiovascular Disorders: Yes Cardiac Disorders: Atrial Fibrillation, Coronary Artery Disease, Heart Attack, High Cholesterol, Hypertension, Peripheral Vascular Neurological Hx Neurological Disorders: Yes (POSSIBLE STROKE/ TIA) Neurological Disorders: Stroke, TIA Reproductive System Hx Reproductive Disorders: No Sexually Transmitted Disease: No HIV/AIDS: No Genitourinary Hx Genitourinary Disorders: Yes (RENAL INSUFFICIENCY) Genitourinary Disorders: Benign Prostatic Hyperpl, Prostate Problems, Renal Failure Gastrointestinal Hx Gastrointestinal Disorders: Yes (GASTROPARESIS; GASTRITIS; DUODENITIS; COLON POLYPECTOMY) Gastrointestinal Disorders: Gastroesophageal Reflux, Pancreatitis, Polyps Musculoskeletal Hx Musculoskeletal Disorders: Yes (OLECRANON BURSITIS, CHRONIC NECK PAIN, DISH SYNDROME) Musculoskeletal Disorders: Degenerate Disk Disease, Arthritis, Chronic Back Pain Endocrine Hx Endocrine Disorders: Yes Endocrine Disorders: Diabetes, Insulin dep HEENT HX ENT Disorders: Yes (SINUS PROBLEMS) HEENT Disorders: Cataract Loss of Vision: Denies Hearing Impairment: Denies Psychosocial Hx Psychiatric Problems: Yes Behavioral Health Disorders: Anxiety Integumentary HX Skin/Integumentary Disorder: No Blood Transfusions Hx Blood Disorders: No Adverse Reaction to a Blood Tr: No Family Medical History Significant Family History: No Pertinent Family Hx Family Hx: Cancer G8 BROTHER Cataract 19 FATHER 19 MOTHER G8 BROTHER G8 BROTHER G8 SISTER Congestive heart failure 19 FATHER 19 MOTHER Family history: Arthritis 19 FATHER 19 MOTHER G8 BROTHER G8 BROTHER G8 SISTER G8 SISTER DAUGHTER SON Family history: Breast disease DAUGHTER Family history: Cardiovascular disease 19 FATHER Family history: Diabetes mellitus 19 FATHER G8 BROTHER G8 SISTER Family history: Hypertension 19 FATHER 19 MOTHER G8 BROTHER G8 BROTHER G8 SISTER G8 SISTER DAUGHTER SON Family history: Thyroid disorder DAUGHTER Heart disease 19 FATHER 19 MOTHER G8 BROTHER Hypercholesterolemia 19 FATHER 19 MOTHER G8 BROTHER G8 BROTHER G8 SISTER Myocardial infarction 19 FATHER 19 MOTHER G8 BROTHER No Family History of: Abdominal aortic aneurysm [place]'s disease Alcoholism Aphasia Cancer of colon Chest pain Congenital heart disease Cystic fibrosis Dementia Dysphagia Family history: Allergy Family history: Alzheimer's disease Family history: Asthma Family history: Coronary thrombosis Family history: Gastrointestinal disease Family history: Glaucoma Family history: Osteoporosis Headache Hearing loss Hereditary disease History of - anemia History of - disorder History of - respiratory disease History of drug abuse Human immunodeficiency virus (HIV) seropositivity Infertile Kidney disease Malignant neoplasm of lung Parkinson's disease Prostate cancer Psychotic disorder Seizure disorder Stroke Tuberculosis Visual impairment Constitutional: no symptoms reported EENTM: no symptoms reported Respiratory: no symptoms reported Cardiovascular: chest pain Gastrointestinal: abdominal pain (LUQ) Genitourinary: no symptoms reported Physical Exam Vital Signs Vital Sign - Last 12Hours 12/05/16 12/05/16 03:43 03:47 Temp 98.5 Pulse 77 Resp 16 B/P (MAP) 122/74 Pulse Ox 97 O2 Delivery Nasal Cannula O2 Flow Rate 2.00 Capillary Refill : Less Than 3 Seconds General Appearance: No Apparent Distress, WD/WN Eyes: Bilateral Eye Normal Inspection HEENT: Normal ENT Inspection Neck: Full Range of Motion, Normal Inspection, Non Tender Respiratory: Chest Non Tender, No Accessory Muscle Use, No Respiratory Distress , Decreased Breath Sounds Cardiovascular: Regular Rate, Rhythm, No Murmur Gastrointestinal: Non Tender, Soft Assessment/Plan Assessment and Plan chest pain. Acute pancreatitis. Coronary artery disease. Diabetes. Hyperlipidemia. Renal insufficiency Problems: Clinical Quality Measures DVT/VTE Risk/Contraindication: Risk Factor Score Per Nursin RFS Level Per Nursing on Admit: 2=Moderate CHANCE ROUSE DO Dec 05, 2016 07:07
[2016-12-05] MEDS ORDERED: fentaNYL INJECTION 100 MCG/2 ML AMP IV PRN (07:15)
[2016-12-05] MEDS ORDERED: ONDANSETRON 4 MG/2 ML (SDV) Z0FRAN IVP PRN (07:15)
[2016-12-05] MEDS ORDERED: ONDANSETRON 4 MG/2 ML (SDV) Z0FRAN IV PRN (07:15)
[2016-12-05 08:00] VITALS: BP 140/68
--- NOTE | 2016-12-05 08:29 | Consultation ---
History of Present Illness History of Present Illness Patient Consulted On(alberto/time) 12/05/16 08:26 Date Seen by Provider: Dec 05, 2016 Time Seen by Provider: 08:26 Reason for Visit: chest pain and upper abdominal pain History of Present Illness Acute onset of right-sided abdominal pain and substernal discomfort with nausea and vomiting. Cardiac event being ruled out by serial troponin assay and monitoring. Amylase and lipase are elevated, raising the possibility of recurrent, idiopathic pancreatitis. Previous cholecystectomy more than 10 years ago. Allergies and Home Medications Allergies Coded Allergies: celecoxib (Unverified Allergy, Mild, TAKES ASPIRIN AT HOME, 12/21/14) diclofenac (Unverified Allergy, Mild, TAKES ASPIRIN AT HOME, 12/21/14) naproxen (Unverified Allergy, Mild, TAKES ASPIRIN AT HOME, 12/21/14) rosuvastatin (Unverified Allergy, Mild, 08/14/08) Penicillins (Verified Allergy, Unknown, 08/03/05) amoxicillin (Verified Allergy, Unknown, 08/03/05) fenofibrate (Unverified Allergy, Unknown, 06/05/16) morphine (Verified Allergy, Unknown, TAKES HYDROCODONE AT HOME, 07/17/14) simvastatin (Unverified Allergy, Unknown, 06/05/16) Uncoded Allergies: GEMIFIBOROZIL (Allergy, Unknown, 06/05/16) Home Medications Apixaban 5 Mg Tablet, 5 MG PO BID, (Reported) Aspirin 81 Mg Tablet.dr, 81 MG PO DAILY, (Reported) Baclofen 10 Mg Tablet, 10 MG PO TID PRN for MUSCLE SPASMS, (Reported) Cilostazol 100 Mg Tablet, 100 MG PO BID, (Reported) Digoxin 125 Mcg Tablet, 125 MCG PO DAILY, (Reported) Dronedarone HCl 400 Mg Tablet, 400 MG PO BID, (Reported) Fenofibrate,Micronized 134 Mg Capsule, 134 MG PO DAILY, (Reported) Fluticasone Propionate 16 Gm [place].susp, 2 SPRAYS NS DAILY PRN for CONGESTION, ( Reported) Gabapentin 300 Mg Capsule, 600 MG PO HS, (Reported) TAKES 2 (300 MG) CAPSULES Glipizide 10 Mg Tablet, 10 MG PO DAILY, (Reported) Insulin Detemir 100 Unit/1 Ml Insuln.pen, 43 UNIT SQ HS, (Reported) Metoprolol Tartrate 25 Mg Tablet, 25 MG PO BID, (Reported) Montelukast Sodium 10 Mg Tablet, 10 MG PO DAILY, (Reported) Nitroglycerin 0.4 Mg Tab.subl, 0.4 MG SL UD PRN for CHEST PAIN, (Reported) Pantoprazole Sodium 40 Mg Tablet.dr, 40 MG PO BID, (Reported) Pentoxifylline 400 Mg Tablet.er, 400 MG PO TID, (Reported) Pravastatin Sodium 80 Mg Tablet, 80 MG PO HS, (Reported) Sitagliptin Phosphate 100 Mg Tablet, 100 MG PO DAILY, (Reported) Tamsulosin HCl 0.4 Mg Cap.er.24h, 0.4 MG PO 1730, (Reported) Trazodone HCl 50 Mg Tablet, 50 MG PO HS, (Reported) Umeclidinium Brm/Vilanterol Tr 1 Each Blst.w.dev, 1 PUFF IH DAILY, (Reported) Past Borjvbz-Snhnua-Bbzufv Hx Patient Social History Alcohol Use: Denies Use Recreational Drug Use: No Smoking Status: Former Smoker Type Used: Cigarettes Former Smoker/When Quit: May 31, 1999 2nd Hand Smoke Exposure: Yes Recent Foreign Travel: No Contact w/Someone Who Travel: No Recent Infectious Disease Expo: No Recent Hopitalizations: No Physical Abuse Screen: No Sexual Abuse: No Immunizations Up To Date Tetanus Booster (TDap): Less than 5yrs PED Vaccines UTD: No Date of Pneumonia Vaccine: Jun 14, 2015 Date of Influenza Vaccine: Feb 12, 2016 Seasonal Allergies Seasonal Allergies: Yes Surgeries HX Surgeries: Yes Surgeries: Abdominal, Cardiac, CABG, Coronary Stent, Eye Surgery, Gallbladder, Joint Replacement, Open Heart Surgery, Orthopedic, Vascular Surgery Respiratory Hx Respiratory Disorders: Yes (CHRONIC DYSPNEA ON EXERTION) Respiratory Disorders: Sleep Apnea, COPD Cardiovascular Hx Cardiac Disorders: Yes Cardiac Disorders: Atrial Fibrillation, Coronary Artery Disease, Heart Attack, High Cholesterol, Hypertension, Peripheral Vascular Neurological Hx Neurological Disorders: Yes (POSSIBLE STROKE/ TIA) Neurological Disorders: Stroke, TIA Reproductive System Hx Reproductive Disorders: No Sexually Transmitted Disease: No HIV/AIDS: No Genitourinary Hx Genitourinary Disorders: Yes (RENAL INSUFFICIENCY) Genitourinary Disorders: Benign Prostatic Hyperpl, Prostate Problems, Renal Failure Gastrointestinal Hx Gastrointestinal Disorders: Yes (GASTROPARESIS; GASTRITIS; DUODENITIS; COLON POLYPECTOMY) Gastrointestinal Disorders: Gastroesophageal Reflux, Pancreatitis, Polyps Musculoskeletal Hx Musculoskeletal Disorders: Yes (OLECRANON BURSITIS, CHRONIC NECK PAIN, DISH SYNDROME) Musculoskeletal Disorders: Degenerate Disk Disease, Arthritis, Chronic Back Pain Endocrine Hx Endocrine Disorders: Yes Endocrine Disorders: Diabetes, Insulin dep HEENT HX ENT Disorders: Yes (SINUS PROBLEMS) HEENT Disorders: Cataract Loss of Vision: Denies Hearing Impairment: Denies Psychosocial Hx Psychiatric Problems: Yes Behavioral Health Disorders: Anxiety Integumentary HX Skin/Integumentary Disorder: No Blood Transfusions Hx Blood Disorders: No Adverse Reaction to a Blood Tr: No Family Medical History Significant Family History: No Pertinent Family Hx Family Medial History: Cancer G8 BROTHER Cataract 19 FATHER 19 MOTHER G8 BROTHER G8 BROTHER G8 SISTER Congestive heart failure 19 FATHER 19 MOTHER Family history: Arthritis 19 FATHER 19 MOTHER G8 BROTHER G8 BROTHER G8 SISTER G8 SISTER DAUGHTER SON Family history: Breast disease DAUGHTER Family history: Cardiovascular disease 19 FATHER Family history: Diabetes mellitus 19 FATHER G8 BROTHER G8 SISTER Family history: Hypertension 19 FATHER 19 MOTHER G8 BROTHER G8 BROTHER G8 SISTER G8 SISTER DAUGHTER SON Family history: Thyroid disorder DAUGHTER Heart disease 19 FATHER 19 MOTHER G8 BROTHER Hypercholesterolemia 19 FATHER 19 MOTHER G8 BROTHER G8 BROTHER G8 SISTER Myocardial infarction 19 FATHER 19 MOTHER G8 BROTHER No Family History of: Abdominal aortic aneurysm Dowling's disease Alcoholism Aphasia Cancer of colon Chest pain Congenital heart disease Cystic fibrosis Dementia Dysphagia Family history: Allergy Family history: Alzheimer's disease Family history: Asthma Family history: Coronary thrombosis Family history: Gastrointestinal disease Family history: Glaucoma Family history: Osteoporosis Headache Hearing loss Hereditary disease History of - anemia History of - disorder History of - respiratory disease History of drug abuse Human immunodeficiency virus (HIV) seropositivity Infertile Kidney disease Malignant neoplasm of lung Parkinson's disease Prostate cancer Psychotic disorder Seizure disorder Stroke Tuberculosis Visual impairment Review of Systems-General Constitutional: malaise, weakness EENTM: no symptoms reported Respiratory: no symptoms reported Cardiovascular: chest pain Gastrointestinal: RUQ, abdominal pain (RUQ) Genitourinary: no symptoms reported Musculoskeletal: back pain Skin: no symptoms reported Psychiatric/Neurological: No Symptoms Reported Physical Exam-General Problems Physical Exam Vital Signs Vital Sign - Last 12Hours 12/05/16 12/05/16 03:43 03:47 Temp 98.5 Pulse 77 Resp 16 B/P (MAP) 122/74 Pulse Ox 97 O2 Delivery Nasal Cannula O2 Flow Rate 2.00 Capillary Refill : Less Than 3 Seconds General Appearance: mild distress HEENT: normal ENT inspection Neck: normal inspection Respiratory: lungs clear Cardiovascular: no JVD, no murmur Gastrointestinal: non tender, soft Back: normal inspection Neurologic/Psychiatric: alert Skin: warm/dry Assessment/Plan Assessment/Plan Admission Diagnosis/Plan gentleman with recurrent idiopathic pancreatitis. Coronary artery disease. We' ll continue monitoring. Reasonable to allow clear liquids. Clinical Quality Measures DVT/VTE Risk/Contraindication: Risk Factor Score Per Nursin RFS Level Per Nursing on Admit: 2=Moderate Contraindications-Pharm: Other *list below* LEN SCHERER MD Dec 05, 2016 8:29 am
--- NOTE | 2016-12-05 08:42 | Diagnostic Imaging Report ---
INDICATION: Epigastric pain. COMPARISON: 09/22/2016. FINDINGS: The lungs are well-aerated. There are no infiltrates or masses. The heart is not enlarged. Median sternotomy changes are present. The implanted cardiac monitor technician is again noted over the left chest. No pleural effusion or pericardial effusion. IMPRESSION: Post operative residue with no acute changes. Dictated by: Dictated on workstation # [id number]
[2016-12-05] MEDS ORDERED: DOCU100C37 PO (09:48)
--- NOTE | 2016-12-05 11:30 | Diagnostic Imaging Report ---
INDICATION: Pancreatitis. TECHNIQUE: Limited Real-time grayscale images were obtained over the abdomen in various projections. FINDINGS: Limited evaluation of the upper abdomen with attention to the pancreas was performed upon request of the ordering physician. The region of the pancreas is completely obscured by bowel gas. There is no obvious ascites or abnormal fluid collection. IMPRESSION: Markedly limited exam due to extensive bowel gas. The pancreas is obscured. There is no evidence of ascites or abnormal fluid collection. Dictated by: Dictated on workstation # [id number]
[2016-12-05 12:00] VITALS: BP 136/80
--- NOTE | 2016-12-05 13:15 | Diagnostic Imaging Report ---
PROCEDURE: CT abdomen and pelvis without contrast. TECHNIQUE: Multiple contiguous axial images were obtained through the abdomen and pelvis without the use of intravenous contrast. INDICATION: Pancreatitis with renal insufficiency. Previous hernia repair and appendectomy. COMPARISON: Comparison with 08/29/2016. FINDINGS: The edema within the mesentery surrounding the pancreatic head and duodenum has resolved. Pancreas appears normal. Liver appears normal. The gallbladder is absent. Bile ducts are not dilated. The spleen is normal. The adrenal glands are normal. The kidneys show no evidence of obstruction or calculi. Aorta again shows atherosclerosis with mild dilatation of the aorta unchanged since the previous study. The stomach, small bowel and colon are all fluid-filled suggesting generalized adynamic ileus. There is diverticulosis of the descending and sigmoid colon without evidence of acute diverticulitis. There is no free air or free fluid. The lung bases are clear. IMPRESSION: 1. Fluid-filled loops of small and large bowel consistent with generalized adynamic ileus. 2. There has been clearing of peripancreatic edema with normal-appearing pancreas now. 3. Diffuse diverticulosis of the sigmoid colon without findings to indicate acute diverticulitis at this time. Dictated by: Dictated on workstation # [id number]
--- NOTE | 2016-12-05 13:20 | Consultation-Cardiology ---
HPI-Cardiology Cardiology Consultation: Date of Consultation 12/05/16 Date of Admission Attending Physician Chance Ward DO Admitting Physician Chance Ward DO Consulting Physician Daniel TILLEY MD HPI: Time Seen by Provider: 09:45 Chief Complaint: Chest pain, abdominal pain This is a 76-year-old gentleman who has history of active smoking. He presents with abdominal pain and was diagnosed with pancreatitis. He also complained of an episode of chest discomfort. On my interview he does not have any significant chest pain. He denies other cardiac symptoms including shortness of breath, palpitations, lower extremity swelling, syncope or near syncope. Review of Systems-Cardiology Review of Systems Constitutional: No As described under HPI, No no symptoms reported, No chills, No fever, No lightheadedness, No malaise, No tiredness, No weight loss, No weight gain, No other Eyes: No As described under HPI, No no symptoms reported, No blindness, No blurred vision, No contact lenses, No drainage, No decreased acuity, No foreign body sensation, No glasses, No inflammation, No pain, No photophobia, No previous injury, No shadows, No tunnel vision, No other, No vision change Ears/Nose/Throat: No As described under HPI, No no symptoms reported, No chronic hearing loss, No epistaxis, No ear discharge, No ear pain, No loose teeth, No mouth pain, No mouth swelling, No nasal drainage, No nose pain, No recent hearing loss, No throat pain, No throat swelling, No ulcerations, No other Respiratory: No no symptoms reported, No As described under HPI, No cough, No orthopnea, No shortness of breath, No SOB with excertion, No SOB at rest, No stridor, No wheezing, No other Cardiovascular: chest pain Gastrointestinal: abdominal pain Genitourinary: No no symptoms reported, No As described under HPI, No burning, No dysuria, No discharge, No frequency, No flank pain, No hematuria, No incontinence, No pain, No urgency, No other, No urine frequency changes, No urine coloration changes Musculoskeletal: No no symptoms reported, No As describe under HPI, No back pain, No gout, No joint pain, No joint swelling, No muscle pain, No muscle stiffness, No neck pain, No other Skin: No no symptoms reported, No As described under HPI, No change in color, No change in hair/nails, No dryness, No lesions, No lumps, No rash, No other, No skin related problems, No ulcerations, No rash on exposed areas, No ulcerations on exposed areas Psychiatric/Neurological: No As described under HPI, No anxiety, No depression , No emotional problems, No focal weakness, No headache, No no symptoms reported , No numbness, No other, No pre-existing deficit, No seizure, No syncope, No tingling, No tremors, No weakness Hematologic: No no symptoms reported, No As described under HPI, No anemia, No blood clots, No easy bleeding, No easy bruising, No swollen glands, No other, No bleeding abnormalities SXU-[id number]-Apafxq Hx Patient Social History Marrital Status: Employed/Student: unemployed Alcohol Use: Denies Use Recreational Drug Use: No Smoking Status: Former Smoker Former smoker/When Quit: May 31, 1999 Type Used: Cigarettes 2nd Hand Smoke Exposure: Yes Recent Foreign Travel: No Recent Infectious Disease Expo: No Physical Abuse Screen: No Sexual Abuse: No Immunizations Up To Date Tetanus Booster (TDap): Less than 5yrs Date of Pneumonia Vaccine: Jun 14, 2015 Date of Influenza Vaccine: Feb 12, 2016 Past Medical History PMH As described under Assessment. Family Medical History Family History: Cancer G8 BROTHER Cataract 19 FATHER 19 MOTHER G8 BROTHER G8 BROTHER G8 SISTER Congestive heart failure 19 FATHER 19 MOTHER Family history: Arthritis 19 FATHER 19 MOTHER G8 BROTHER G8 BROTHER G8 SISTER G8 SISTER DAUGHTER SON Family history: Breast disease DAUGHTER Family history: Cardiovascular disease 19 FATHER Family history: Diabetes mellitus 19 FATHER G8 BROTHER G8 SISTER Family history: Hypertension 19 FATHER 19 MOTHER G8 BROTHER G8 BROTHER G8 SISTER G8 SISTER DAUGHTER SON Family history: Thyroid disorder DAUGHTER Heart disease 19 FATHER 19 MOTHER G8 BROTHER Hypercholesterolemia 19 FATHER 19 MOTHER G8 BROTHER G8 BROTHER G8 SISTER Myocardial infarction 19 FATHER 19 MOTHER G8 BROTHER No Family History of: Abdominal aortic aneurysm Robel's disease Alcoholism Aphasia Cancer of colon Chest pain Congenital heart disease Cystic fibrosis Dementia Dysphagia Family history: Allergy Family history: Alzheimer's disease Family history: Asthma Family history: Coronary thrombosis Family history: Gastrointestinal disease Family history: Glaucoma Family history: Osteoporosis Headache Hearing loss Hereditary disease History of - anemia History of - disorder History of - respiratory disease History of drug abuse Human immunodeficiency virus (HIV) seropositivity Infertile Kidney disease Malignant neoplasm of lung Parkinson's disease Prostate cancer Psychotic disorder Seizure disorder Stroke Tuberculosis Visual impairment Allergies and Home Medications Allergies Coded Allergies: celecoxib (Unverified Allergy, Mild, TAKES ASPIRIN AT HOME, 12/21/14) diclofenac (Unverified Allergy, Mild, TAKES ASPIRIN AT HOME, 12/21/14) naproxen (Unverified Allergy, Mild, TAKES ASPIRIN AT HOME, 12/21/14) rosuvastatin (Unverified Allergy, Mild, 08/14/08) Penicillins (Verified Allergy, Unknown, 08/03/05) amoxicillin (Verified Allergy, Unknown, 08/03/05) fenofibrate (Unverified Allergy, Unknown, 06/05/16) morphine (Verified Allergy, Unknown, TAKES HYDROCODONE AT HOME, 07/17/14) simvastatin (Unverified Allergy, Unknown, 06/05/16) Uncoded Allergies: GEMIFIBOROZIL (Allergy, Unknown, 06/05/16) Home Medications Apixaban 5 Mg Tablet, 5 MG PO BID, (Reported) Aspirin 81 Mg Tablet.dr, 81 MG PO DAILY, (Reported) Baclofen 10 Mg Tablet, 10 MG PO TID PRN for MUSCLE SPASMS, (Reported) Cilostazol 100 Mg Tablet, 100 MG PO BID, (Reported) Digoxin 125 Mcg Tablet, 125 MCG PO DAILY, (Reported) Docusate Sodium 100 Mg Capsule, 100 MG PO DAILY PRN for CONSTIPATION-1ST LINE, ( Reported) Dronedarone HCl 400 Mg Tablet, 400 MG PO BID, (Reported) Fenofibrate,Micronized 134 Mg Capsule, 134 MG PO DAILY, (Reported) Gabapentin 300 Mg Capsule, 600 MG PO HS, (Reported) TAKES 2 (300 MG) CAPSULES Glipizide 10 Mg Tablet, 10 MG PO DAILY, (Reported) Insulin Detemir 100 Unit/1 Ml Insuln.pen, 43 UNIT SQ HS, (Reported) Metoprolol Tartrate 25 Mg Tablet, 12.5 MG PO BID, (Reported) TAKES 1/2 OF A (25 MG) TABLET Montelukast Sodium 10 Mg Tablet, 10 MG PO DAILY, (Reported) Nitroglycerin 0.4 Mg Tab.subl, 0.4 MG SL UD PRN for CHEST PAIN, (Reported) MAX OF 3 TABS IN 15 MINUTES / CALL 911 IF PAIN REMAINS AFTER 5 MINUTES Pentoxifylline 400 Mg Tablet.er, 400 MG PO BID, (Reported) Pravastatin Sodium 80 Mg Tablet, 80 MG PO HS, (Reported) Trazodone HCl 50 Mg Tablet, 50 MG PO HS, (Reported) Umeclidinium Brm/Vilanterol Tr 1 Each Blst.w.dev, 1 PUFF IH DAILY, (Reported) Physical Exam-Cardiology Physical Exam Vital Signs/I&O Vital Sign - Last 12Hours 12/05/16 12/05/16 12/05/16 12/05/16 03:43 03:47 04:20 05:45 Temp 98.5 98.5 Pulse 77 74 Resp 16 16 B/P (MAP) 122/74 Pulse Ox 97 96 95 95 O2 Delivery Nasal Cannula Nasal Cannula Room Air Room Air O2 Flow Rate 2.00 2.00 12/05/16 12/05/16 12/05/16 12/05/16 06:00 07:00 08:00 08:00 Temp 97.1 97.4 Pulse 66 58 58 Resp 18 16 B/P (MAP) 153/82 140/68 Pulse Ox 95 96 O2 Delivery Room Air Room Air Room Air Capillary Refill : Less Than 3 Seconds Constitutional: No appears stated age, No AAO x 3, No apparent distress, No PERRL, No well-developed, No well-nourished, No other HEENT: No PERRL, No normal ENT inspection, No TMs normal, No pharynx normal, No scleral icterus (R), No scleral icterus (L), No pale conjunctivae (R), No pale conjunctivae (L), No photophobia, No TM abnormal (R), No TM abnormal (L), No pharyngeal erythema, No tonsillar exudate, No other, No discharge, No EOMI, No hearing is well preserved, No hard of hearing, No oral hygience is good, No ulceration, No xanthelasmas are seen Neck: No non-tender, No full range of motion, No supple, No normal inspection, No carotid bruit, No limited range of motion, No lymphadenopathy (R), No lymphadenopathy (L), No tender lateral, No tender midline, No thyromegaly, No other, No carotid pulses are 2 + bilaterally, No with good upstrokes Respiratory: No accessory muscle use, No respiratory distress, No chest tender , No chest expansion is symmetric, No chest is bilaterally symmetric, No lungs clear to percussion, No lungs clear to auscultation, No crackles, No rhonchi, No rales, No stridor, No wheezing, No pleural rub, No other Cardiovascular: No regular rate-rhythm, No irregularly irregular, No extra beats, No parasternal heave is noted, No JVD, No edema, No bradycardia, No tachycardia, No point of maximal impulse, No cardiac thrills are palpable, No S1 and S2, No gallop/S3, No gallop/S4, No diastolic murmur, No systolic murmur, No friction rub, No click, No other Gastrointestinal: tender Rectal: deferred Extremities: No normal range of motion, No non-tender, No normal inspection, No pedal edema, No calf tenderness, No normal capillary refill, No pelvis stable , No calf tenderness, No inflammation, No pedal edema, No slow capillary refill , No swelling, No other, No abrasion, No clubbing, No cyanosis, No ecchymosis, No laceration, No no lower extremity edema bilateral, No significant edema, No tenderness, No wound Neurologic/Psychiatric: No asbestos wire finisher II-XII nml as tested, No no motor/sensory deficits, No alert, No normal mood/affect, No oriented x 3, No abnormal cerebellar tests, No abnormal asbestos wire finisher II-XII, No abnormal gait, No aphasia, No EOM palsy, No facial droop, No motor weakness, No sensory deficit, No depressed affect, No disoriented x 3, No other, No grossly intact, No power is 5/5 both on sides Skin: No normal color, No warm/dry, No cyanosis, No cool, No diaphoresis, No damp, No ecchymosis, No jaundice, No mottled, No pallor, No rash, No tattoos/ piercings, No ulcerations, No rash on exposed areas, No ulcerations on exposed areas, No other Data Review Labs Laboratory Tests 12/05/16 03:46: White Blood Count 6.7, Red Blood Count 4.24L, Hemoglobin 12.4L, Hematocrit 37L, Mean Corpuscular Volume 88, Mean Corpuscular Hemoglobin 29, Mean Corpuscular Hemoglobin Concent 33, Red Cell Distribution Width 13.5, Platelet Count 256, Mean Platelet Volume 10.1, Neutrophils (%) (Auto) 57, Lymphocytes (%) (Auto) 31 , Monocytes (%) (Auto) 10, Eosinophils (%) (Auto) 2, Basophils (%) (Auto) 0, Neutrophils # (Auto) 3.8, Lymphocytes # (Auto) 2.1, Monocytes # (Auto) 0.7, Eosinophils # (Auto) 0.2, Basophils # (Auto) 0.0, Prothrombin Time 15.6H, INR Comment 1.3, Activated Partial Thromboplast Time 30, Sodium Level 141, Potassium Level 3.6, Chloride Level 105, Carbon Dioxide Level 23, Anion Gap 13, Blood Urea Nitrogen 12, Creatinine 1.54H, Estimat Glomerular Filtration Rate 44 , BUN/Creatinine Ratio 8, Glucose Level 161H, Calcium Level 9.4, Magnesium Level 2.2, Total Bilirubin 0.4, Aspartate Amino Transf (AST/SGOT) 14, Alanine Aminotransferase (ALT/SGPT) 18, Alkaline Phosphatase 53, Myoglobin 56.1, Troponin I < 0.30, B-Type Natriuretic Peptide 19.1, Total Protein 6.8, Albumin 3.9, Amylase Level 188H, Lipase 535H 12/05/16 09:40: Troponin I < 0.30 ECG Impression ECG Initial ECG Rhythm: Normal Sinus A/P-Cardiology Assessment/Admission Diagnosis Pancreatitis, chest pain Plan Pancreatitis: Deferred treatment to the primary team. Chest pain: Serial troponin is negative. EKG is negative for any acute ST-T wave abnormalities. Chest pain could be secondary to pericarditis associated with pancreatitis. However he may be a candidate for a stress test as an outpatient. Dr. Olivares is covering for me from tomorrow. Thank you for your consultation. Please call me if you have any questions. Lynda Tilley MD, FACP, FACC, FSCAI, FHRS, CCDS Interventional Cardiology Cardiac Electrophysiology Vascular Medicine and Endovascular Interventions Clinical Quality Measures DVT/VTE Risk/Contraindication: Risk Factor Score Per Nursin RFS Level Per Nursing on Admit: 2=Moderate Contraindications-Pharm: Other *list below* Daniel TILLEY MD Dec 05, 2016 13:20
[2016-12-05 16:00] VITALS: BP 145/70
--- NOTE | 2016-12-07 07:07 | Clinic Account Progress/Dx ---
Clinic Account Progress/Dx DIAGNOSIS: Time Seen by Provider: 07:05 Diagnosis acute pancreatitis without necrosis or infection. Coronary artery disease. Chest pain. Chronic kidney disease. COPD. Hyperlipidemia. Hypertension. Nicotine dependence. Diabetes. Renal insufficiency. Patient left LLUVIA HAYNES DO Dec 07, 2016 07:07
[2017-03-18] MEDS ORDERED: PRD20T PO (19:17)
[2017-03-18] MEDS ORDERED: BACL20TA PO (19:17)
== END 2016-12-05 17:35 | disposition left against medical advice (07) ==
LOC: EDUNIT# 03:32 → ER 03:34 → ICU 05:30 → UNDOADMOB 05:30 → ICU 06:00 → UNDODISOB 17:35
PROVIDERS: ADMIT Family Medicine; ATTEND Family Medicine
DX: R07.9 Chest pain, unspecified (principal); K85.90 Acute pancreatitis without necrosis or infection, unspecified; I25.10 Atherosclerotic heart disease of native coronary artery without angina pectoris; E11.9 Type 2 diabetes mellitus without complications; E78.5 Hyperlipidemia, unspecified; I12.9 Hypertensive chronic kidney disease with stage 1 through stage 4 chronic kidney disease, or unspecified chronic kidney disease; N18.9 Chronic kidney disease, unspecified; I48.1 Persistent atrial fibrillation; J44.9 Chronic obstructive pulmonary disease, unspecified; F17.210 Nicotine dependence, cigarettes, uncomplicated; Z79.4 Long term (current) use of insulin; Z79.82 Long term (current) use of aspirin; Z79.84 Long term (current) use of oral hypoglycemic drugs; Z79.899 Other long term (current) drug therapy; Z95.1 Presence of aortocoronary bypass graft; Z95.5 Presence of coronary angioplasty implant and graft
CPT/HCPCS: 36415; 71010; 74176; 76705; 80053; 82150; 83690; 83735; 83874; 83880; 84484; 85025; 85610; 85730; 93005; 93041; 96361; 96374; 96375; 96376

== ENCOUNTER 2016-12-16 16:38 | Emergency (ER) | payer MEDICARE, MEDICAID ==
[~2016-12-16] VITALS: Ht 182.9 cm; Wt 87.4 kg
[~2016-12-16 16:38] MED LIST changes: +DOCU100C37 PO; +NAPR250T2 PO; -NAPR250T6 PO
--- NOTE | 2016-12-16 17:16 | ED Abdominal Pain ---
General Chief Complaint: Abdominal/GI Problems Stated Complaint: STOMACH PAIN Nursing Triage Note: pt reports chronic abdominal pain that is worse the past three days. pt denies n/v/d. Sepsis Screen: No Definite Risk Source of Information: Patient, Spouse Exam Limitations: No Limitations History of Present Illness Time Seen By Provider: 17:01 Initial Comments Patient and spouse present c/ c/o worsening chronic abdominal pain and bloating x 3 days. Denies any N/V/D, or constipation. No symptoms. No fever. States he has been told his stomach empties slowly. Is diabetic. Timing/Duration: 2-3 Days, Constant, Getting Worse Severity/Quality: Moderate (7/10), Full Location: Generalized Abdomen Radiation: No Radiation Activities at Onset: None Modifying Factors: Improves With Other (nothing) Associated Symptoms: Swelling/Mass in Abdomen Allergies and Home Medications Allergies Coded Allergies: celecoxib (Unverified Allergy, Mild, TAKES ASPIRIN AT HOME, 12/21/14) diclofenac (Unverified Allergy, Mild, TAKES ASPIRIN AT HOME, 12/21/14) naproxen (Unverified Allergy, Mild, TAKES ASPIRIN AT HOME, 12/21/14) rosuvastatin (Unverified Allergy, Mild, 08/14/08) Penicillins (Verified Allergy, Unknown, 08/03/05) amoxicillin (Verified Allergy, Unknown, 08/03/05) fenofibrate (Unverified Allergy, Unknown, 06/05/16) morphine (Verified Allergy, Unknown, TAKES HYDROCODONE AT HOME, 07/17/14) simvastatin (Unverified Allergy, Unknown, 06/05/16) Uncoded Allergies: GEMIFIBOROZIL (Allergy, Unknown, 06/05/16) Home Medications Apixaban 5 Mg Tablet, 5 MG PO BID, (Reported) Aspirin 81 Mg Tablet.dr, 81 MG PO DAILY, (Reported) Baclofen 10 Mg Tablet, 10 MG PO TID PRN for MUSCLE SPASMS, (Reported) Cilostazol 100 Mg Tablet, 100 MG PO BID, (Reported) Digoxin 125 Mcg Tablet, 125 MCG PO DAILY, (Reported) Docusate Sodium 100 Mg Capsule, 100 MG PO DAILY PRN for CONSTIPATION-1ST LINE, ( Reported) Dronedarone HCl 400 Mg Tablet, 400 MG PO BID, (Reported) Fenofibrate,Micronized 134 Mg Capsule, 134 MG PO DAILY, (Reported) Gabapentin 300 Mg Capsule, 600 MG PO HS, (Reported) TAKES 2 (300 MG) CAPSULES Glipizide 10 Mg Tablet, 10 MG PO DAILY, (Reported) Insulin Detemir 100 Unit/1 Ml Insuln.pen, 43 UNIT SQ HS, (Reported) Metoclopramide HCl 5 Mg Tablet, 5 MG PO ACHS, #120 Ref 0 Prescribed by: JUSTINE TABARES on 12/16/16 1831 Metoprolol Tartrate 25 Mg Tablet, 12.5 MG PO BID, (Reported) TAKES 1/2 OF A (25 MG) TABLET Montelukast Sodium 10 Mg Tablet, 10 MG PO DAILY, (Reported) Nitroglycerin 0.4 Mg Tab.subl, 0.4 MG SL UD PRN for CHEST PAIN, (Reported) MAX OF 3 TABS IN 15 MINUTES / CALL 911 IF PAIN REMAINS AFTER 5 MINUTES Pentoxifylline 400 Mg Tablet.er, 400 MG PO BID, (Reported) Pravastatin Sodium 80 Mg Tablet, 80 MG PO HS, (Reported) Trazodone HCl 50 Mg Tablet, 50 MG PO HS, (Reported) Umeclidinium Brm/Vilanterol Tr 1 Each Blst.w.dev, 1 PUFF IH DAILY, (Reported) Review of Systems Constitutional: see HPI Gastrointestinal: See HPI, Abdomen Distended, Abdominal Pain, Denies Constipated, Denies Diarrhea, Denies Nausea, Denies Vomiting All Other Systems Reviewed Negative Unless Noted: Yes Past Mbzpwqg-Nelrld-Rpxpwi Hx Patient Social History Alcohol Use: Denies Use Recreational Drug Use: No Smoking Status: Former Smoker Type Used: Cigarettes Former Smoker/When Quit: May 31, 1999 2nd Hand Smoke Exposure: Yes Recent Foreign Travel: No Contact w/Someone Who Travel: No Recent Infectious Disease Expo: No Recent Hopitalizations: No Immunizations Up To Date Tetanus Booster (TDap): Less than 5yrs PED Vaccines UTD: No Date of Pneumonia Vaccine: Jun 14, 2015 Date of Influenza Vaccine: Feb 12, 2016 Seasonal Allergies Seasonal Allergies: Yes Surgeries HX Surgeries: Yes Surgeries: Abdominal, Cardiac, CABG, Coronary Stent, Eye Surgery, Gallbladder, Joint Replacement, Open Heart Surgery, Orthopedic, Vascular Surgery Respiratory Hx Respiratory Disorders: Yes (CHRONIC DYSPNEA ON EXERTION) Respiratory Disorders: Sleep Apnea, COPD Cardiovascular Hx Cardiac Disorders: Yes Cardiac Disorders: Atrial Fibrillation, Coronary Artery Disease, Heart Attack, High Cholesterol, Hypertension, Peripheral Vascular Neurological Hx Neurological Disorders: Yes (POSSIBLE STROKE/ TIA) Neurological Disorders: Stroke, TIA Reproductive System Hx Reproductive Disorders: No Sexually Transmitted Disease: No HIV/AIDS: No Genitourinary Hx Genitourinary Disorders: Yes (RENAL INSUFFICIENCY) Genitourinary Disorders: Benign Prostatic Hyperpl, Prostate Problems, Renal Failure Gastrointestinal Hx Gastrointestinal Disorders: Yes (GASTROPARESIS; GASTRITIS; DUODENITIS; COLON POLYPECTOMY) Gastrointestinal Disorders: Gastroesophageal Reflux, Pancreatitis, Polyps Musculoskeletal Hx Musculoskeletal Disorders: Yes (OLECRANON BURSITIS, CHRONIC NECK PAIN, DISH SYNDROME) Musculoskeletal Disorders: Degenerate Disk Disease, Arthritis, Chronic Back Pain Endocrine Hx Endocrine Disorders: Yes Endocrine Disorders: Diabetes, Insulin dep HEENT HX ENT Disorders: Yes (SINUS PROBLEMS) HEENT Disorders: Cataract Loss of Vision: Denies Hearing Impairment: Denies Psychosocial Hx Psychiatric Problems: Yes Behavioral Health Disorders: Anxiety Integumentary HX Skin/Integumentary Disorder: No Blood Transfusions Hx Blood Disorders: No Adverse Reaction to a Blood Tr: No Family Medical History Significant Family History: No Pertinent Family Hx Family Medial History: Cancer G8 BROTHER Cataract 19 FATHER 19 MOTHER G8 BROTHER G8 BROTHER G8 SISTER Congestive heart failure 19 FATHER 19 MOTHER Family history: Arthritis 19 FATHER 19 MOTHER G8 BROTHER G8 BROTHER G8 SISTER G8 SISTER DAUGHTER SON Family history: Breast disease DAUGHTER Family history: Cardiovascular disease 19 FATHER Family history: Diabetes mellitus 19 FATHER G8 BROTHER G8 SISTER Family history: Hypertension 19 FATHER 19 MOTHER G8 BROTHER G8 BROTHER G8 SISTER G8 SISTER DAUGHTER SON Family history: Thyroid disorder DAUGHTER Heart disease 19 FATHER 19 MOTHER G8 BROTHER Hypercholesterolemia 19 FATHER 19 MOTHER G8 BROTHER G8 BROTHER G8 SISTER Myocardial infarction 19 FATHER 19 MOTHER G8 BROTHER No Family History of: Abdominal aortic aneurysm [place]'s disease Alcoholism Aphasia Cancer of colon Chest pain Congenital heart disease Cystic fibrosis Dementia Dysphagia Family history: Allergy Family history: Alzheimer's disease Family history: Asthma Family history: Coronary thrombosis Family history: Gastrointestinal disease Family history: Glaucoma Family history: Osteoporosis Headache Hearing loss Hereditary disease History of - anemia History of - disorder History of - respiratory disease History of drug abuse Human immunodeficiency virus (HIV) seropositivity Infertile Kidney disease Malignant neoplasm of lung Parkinson's disease Prostate cancer Psychotic disorder Seizure disorder Stroke Tuberculosis Visual impairment Physical Exam Vital Signs VS - Last 72 Hours, by Label 12/16/16 12/16/16 17:02 18:53 Temp 98.0 98.0 Pulse 70 70 Resp 18 18 B/P (MAP) 151/93 Pulse Ox 97 95 O2 Delivery Room Air Capillary Refill : Less Than 3 Seconds General Appearance: WD/WN, no apparent distress HEENT: normal ENT inspection Neck: normal inspection Respiratory: no respiratory distress Cardiovascular: regular rate, rhythm Gastrointestinal: distended, No guarding, No rebound, tenderness Rectal: deferred Neurologic/Psychiatric: no motor/sensory deficits, alert, oriented x 3 Skin: warm/dry Progress/Results/Core Measures Results/Orders Lab Results Laboratory Tests Test 12/16/16 17:26 12/16/16 17:41 12/16/16 18:05 Range/Units White Blood Count 7.7 4.3-11.0 10^3/uL Red Blood Count 4.90 4.35-5.85 10^6/uL Hemoglobin 14.3 13.3-17.7 G/DL Hematocrit 43 40-54 % Mean Corpuscular Volume 88 80-99 FL Mean Corpuscular Hemoglobin 29 25-34 PG Mean Corpuscular Hemoglobin Concent 33 32-36 G/DL Red Cell Distribution Width 13.7 10.0-14.5 % Platelet Count 303 130-400 10^3/uL Mean Platelet Volume 9.8 7.4-10.4 FL Neutrophils (%) (Auto) 57 42-75 % Lymphocytes (%) (Auto) 32 12-44 % Monocytes (%) (Auto) 9 0-12 % Eosinophils (%) (Auto) 2 0-10 % Basophils (%) (Auto) 0 0-10 % Neutrophils # (Auto) 4.4 1.8-7.8 X 10^3 Lymphocytes # (Auto) 2.4 1.0-4.0 X 10^3 Monocytes # (Auto) 0.7 0.0-1.0 X 10^3 Eosinophils # (Auto) 0.1 0.0-0.3 10^3/uL Basophils # (Auto) 0.0 0.0-0.1 10^3/uL Sodium Level 139 135-145 MMOL/L Potassium Level 4.1 3.6-5.0 MMOL/L Chloride Level 108 H 98-107 MMOL/L Carbon Dioxide Level 21 21-32 MMOL/L Anion Gap 10 5-14 MMOL/L Blood Urea Nitrogen 15 7-18 MG/DL Creatinine 1.47 H 0.60-1.30 MG/DL Estimat Glomerular Filtration Rate 47 BUN/Creatinine Ratio 10 Glucose Level 83 70-105 MG/DL Calcium Level 10.1 8.5-10.1 MG/DL Magnesium Level 2.0 1.8-2.4 MG/DL Total Bilirubin 0.6 0.1-1.0 MG/DL Aspartate Amino Transf (AST/SGOT) 19 5-34 U/L Alanine Aminotransferase (ALT/SGPT) 20 0-55 U/L Alkaline Phosphatase 73 40-136 U/L Troponin I < 0.30 <0.30 NG/ML Total Protein 7.8 6.4-8.2 GM/DL Albumin 4.4 3.2-4.5 GM/DL Lipase 114 H 8-78 U/L Digoxin Level 0.55 L 0.80-2.00 NG/ML Urine Color YELLOW Urine Clarity CLEAR Urine pH 6 5-9 Urine Specific [place] 1.015 L 1.016-1.022 Urine Protein 1+ H NEGATIVE Urine Glucose (UA) 2+ H NEGATIVE Urine Ketones NEGATIVE NEGATIVE Urine Nitrite NEGATIVE NEGATIVE Urine Bilirubin NEGATIVE NEGATIVE Urine Urobilinogen NORMAL NORMAL MG/DL Urine Leukocyte Esterase NEGATIVE NEGATIVE Urine RBC (Auto) NEGATIVE NEGATIVE Urine RBC NONE /HPF Urine WBC NONE /HPF Urine Squamous Epithelial Cells NONE /HPF Urine Crystals NONE /LPF Urine Bacteria NEGATIVE /HPF Urine Casts NONE /LPF Urine Mucus NEGATIVE /LPF Urine Culture Indicated NO Glucometer 60 *L 70-110 MG/DL My Orders Orders - JUSTINE TABARES DO Cbc With Automated Diff (12/16/16 17:13) Comprehensive Metabolic Panel (12/16/16 17:13) Lipase (12/16/16 17:13) Magnesium (12/16/16 17:13) Troponin I (12/16/16 17:13) Ua Culture If Indicated (12/16/16 17:13) Digoxin (12/16/16 17:13) Acute Abd Series (12/16/16 17:15) Vital Signs/I&O Vital Sign - Last 12Hours 12/16/16 12/16/16 17:02 18:53 Temp 98.0 98.0 Pulse 70 70 Resp 18 18 B/P (MAP) 151/93 Pulse Ox 97 95 O2 Delivery Room Air Blood Pressure Mean: 112 Diagnostic Imaging Diagonstic Imaging: CT Plain Films/CT/US/NM/MRI: abdomen, pelvis Reviewed: Reviewed [place] Hawk Study (nothing acute ) Departure Impression Impression: Primary Impression: Abdominal bloating Additional Impression: NIDDM Disposition: HOME, SELF-CARE Condition: Stable Departure-Patient Inst. Decision time for Depature: 18:29 Referrals: NO,LOCAL PHYSICIAN (PCP/Family) Primary Care Physician Patient Instructions: Gastroparesis (Delayed Gastric Emptying) (DC) Scripts Metoclopramide HCl (Reglan) 5 Mg Tablet 5 MG PO ACHS, #120 TAB 0 Refills Prov: JUSTINE TABARES DO 12/16/16 JUSTINE TABARES DO Dec 16, 2016 17:16
[2016-12-16 17:42] LABS: BASOPHILS % (AUTO) 0 % (0-10); EOSINOPHILS # (AUTO) 0.1 10^3/uL (0.0-0.3); EOSINOPHILS % (AUTO) 2 % (0-10); LYMPHOCYTES # (AUTO) 2.4 X 10^3 (1.0-4.0); LYMPHOCYTES % (AUTO) 32 % (12-44); MEAN CORPUSCULAR HEMOGLOBIN 29 PG (25-34); MEAN CORPUSCULAR HGB CONC 33 G/DL (32-36); MEAN CORPUSCULAR VOLUME 88 FL (80-99); MEAN PLATELET VOLUME 9.8 FL (7.4-10.4); MONOCYTES # (AUTO) 0.7 X 10^3 (0.0-1.0); MONOCYTES % (AUTO) 9 % (0-12); NEUTROPHILS # (AUTO) 4.4 X 10^3 (1.8-7.8); NEUTROPHILS % (AUTO) 57 % (42-75); PLATELET COUNT 303 10^3/uL (130-400); RED CELL DISTRIBUTION WIDTH 13.7 % (10.0-14.5); WHITE BLOOD COUNT 7.7 10^3/uL (4.3-11.0)
[2016-12-16 17:50] LABS: BILIRUBIN,URINE NEGATIVE (NEGATIVE); KETONES,URINE NEGATIVE (NEGATIVE); LEUKOCYTE ESTERASE ,URINE NEGATIVE (NEGATIVE); NITRITE,URINE NEGATIVE (NEGATIVE); PH,URINE 6 (5-9); PROTEIN,URINE 1+ (NEGATIVE); UROBILINOGEN,URINE NORMAL (NORMAL)
[2016-12-16 18:03] LABS: ALANINE AMINOTRANSFERASE 20 U/L (0-55); ALBUMIN 4.4 GM/DL (3.2-4.5); ANION GAP 10 MMOL/L (5-14); ASPARTATE AMINO TRANSFERASE 19 U/L (5-34); BILIRUBIN,TOTAL 0.6 MG/DL (0.1-1.0); BLOOD UREA NITROGEN 15 MG/DL (7-18); BUN/CREATININE RATIO 10; CALCIUM 10.1 MG/DL (8.5-10.1); CARBON DIOXIDE 21 MMOL/L (21-32); CHLORIDE 108 MMOL/L (98-107); CREATININE SERUM 1.47 MG/DL (0.60-1.30); GFR ESTIMATED 47; GLUCOSE 83 MG/DL (70-105); LIPASE 114 U/L (8-78); POTASSIUM 4.1 MMOL/L (3.6-5.0); SODIUM 139 MMOL/L (135-145); TOTAL PROTEIN 7.8 GM/DL (6.4-8.2)
--- NOTE | 2016-12-16 18:04 | Diagnostic Imaging Report ---
INDICATION: Difficulty digesting food. EXAMINATION: Acute abdomen series. FINDINGS: The upright chest shows no acute abnormality. Supine and upright views of the abdomen show the bowel gas pattern to be within normal limits with no obstruction or perforation evident. No mass or calculus is seen. There are degenerative changes of the spine with no acute bony abnormality seen. IMPRESSION: No acute abnormality is seen. Dictated by: Dictated on workstation # [id number]
[2016-12-16 18:09] LABS: DIGOXIN 0.55 NG/ML (0.80-2.00); TROPONIN I < 0.30 NG/ML (<0.30)
[2016-12-16] MEDS ORDERED: METO5TAB75 PO (18:31)
[2016-12-16 18:53] VITALS: BP 149/99
== END 2016-12-16 18:53 | disposition home or self-care (01) ==
LOC: EDUNIT# 16:38 → ER 16:40
DX: R14.0 Abdominal distension (gaseous) (principal); E11.9 Type 2 diabetes mellitus without complications; J44.9 Chronic obstructive pulmonary disease, unspecified; I25.10 Atherosclerotic heart disease of native coronary artery without angina pectoris; I25.2 Old myocardial infarction; E78.00 Pure hypercholesterolemia, unspecified; I10 Essential (primary) hypertension; N40.0 Benign prostatic hyperplasia without lower urinary tract symptoms; K21.9 Gastro-esophageal reflux disease without esophagitis; M47.9 Spondylosis, unspecified; I48.91 Unspecified atrial fibrillation; Z79.82 Long term (current) use of aspirin; Z79.4 Long term (current) use of insulin; Z87.891 Personal history of nicotine dependence; Z95.5 Presence of coronary angioplasty implant and graft; Z95.1 Presence of aortocoronary bypass graft; Z96.60 Presence of unspecified orthopedic joint implant; Z86.73 Personal history of transient ischemic attack (TIA), and cerebral infarction without residual deficits; Z82.49 Family history of ischemic heart disease and other diseases of the circulatory system
CPT/HCPCS: 36415; 74022; 80053; 80162; 81000; 82962; 83690; 83735; 84484; 85025; 99283

== ENCOUNTER 2017-01-14 01:20 | Emergency (ER) | payer MEDICARE, MEDICAID ==
[~2017-01-14] VITALS: Ht 182.9 cm; Wt 88.3 kg
[~2017-01-14 01:20] MED LIST changes: +METO5TAB75 PO
[2017-01-14] MEDS ORDERED: ONDANSETRON 4 MG/2 ML (SDV) Z0FRAN IVP ONE (01:30)
[2017-01-14] MEDS ORDERED: ACETAMINOPHEN 500 MG TAB (TYLENOL) PO ONE (01:30)
--- OUTSIDE RECORDS SUMMARY | 2017-01-14 01:31 | XMS REPORT | Encounter Summary ---
Author Author [facility] Organization [facility] Address Unknown Phone Unavailable Care Team Providers Care Room Maid Name Role Phone PCP Unavailable Encounter Details Date Type Department Care Team Description 10/24/2016 [facility] Cardiology Ricardo Grover MD Encounter [id number] [place] [address] [address] [place], [place] [id number] Social History Tobacco Use Types Packs/Day Years Used Date Former Smoker 3 Quit: 10/25/1999 Alcohol Use Drinks/Week oz/Week Comments No Sex Assigned at Date Recorded Not on file as of this encounter Medications at Time of Discharge Medication Sig. Disp. Refills Start Date End Date apixaban (ELIQUIS) 5 mg Take 5 mg by mouth twice tablet daily. aspirin EC 81 mg tablet Take 81 mg by mouth daily. Take with food. baclofen (LIORESAL) 10 mg Take 10 mg by mouth three tablet times daily. cilostazol(+) (PLETAL) Take 100 mg by mouth 100 mg tablet twice daily. Take on an empty stomach at least 30 minutes before or 2 hours after food. digoxin (LANOXIN) 125 mcg Take 125 mcg by mouth tablet daily. dronedarone (MULTAQ) 400 Take 400 mg by mouth mg tablet twice daily with meals. enalapril (VASOTEC) 5 mg Take 5 mg by mouth daily. tablet fenofibrate (FENOGLIDE) Take 134 mg by mouth 120 mg tablet daily. Take with food. gabapentin (NEURONTIN) Take 300 mg by mouth 300 mg capsule every 8 hours. glipiZIDE (GLUCOTROL) 10 Take 10 mg by mouth mg tablet daily. insulin aspart (NOVOLOG) Inject 5 Units under the 100 unit/mL injection skin three times daily with meals. metoprolol tartrate Take 25 mg by mouth twice (LOPRESSOR) 25 mg tablet daily. montelukast (SINGULAIR) Take 10 mg by mouth at 10 mg tablet bedtime daily. naproxen (NAPROSYN) 250 Take 250 mg by mouth mg tablet twice daily with meals. Take with food. nitroglycerin (NITRODUR) Apply 1 Patch to top of 0.1 mg/hr patch skin as directed daily. nitroglycerin (NITROSTAT) Place 0.4 mg under tongue 0.4 mg tablet every 5 minutes as needed for Chest Pain. Max of 3 tablets, call 911. pentoxifylline ER Take 400 mg by mouth (TRENTAL) 400 mg tablet three times daily. Take with food. pravastatin (PRAVACHOL) Take 80 mg by mouth at 80 mg tablet bedtime daily. traZODone (DESYREL) 50 mg Take 50 mg by mouth at tablet bedtime as needed for Sleep. 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 Routed MPE for co sign- review. in this encounter Visit Diagnoses Diagnosis Palpitations in this encounter
--- OUTSIDE RECORDS SUMMARY | 2017-01-14 01:31 | XMS REPORT | Encounter Summary ---
Author Author [facility] Organization [facility] Address Unknown Phone Unavailable Care Team Providers Care Validation Specialist Name Role Phone PCP Unavailable Encounter Details Date Type Department Care Team Description 10/24/2016 Ancillary [facility] Cardiology Ricardo Grover MD Palpitations (Primary Dx) Orders [address] [place] [address] [place] [address] [phone] Social History Tobacco Use Types Packs/Day Years Used Date Former Smoker 3 Quit: 10/25/1999 Alcohol Use Drinks/Week oz/Week Comments No Sex Assigned at Date Recorded Not on file as of this encounter Plan of Treatment [...] Implanted By Dr Stiles Generator Serial # [id number] EP Device Followed by Dr Sampson Name Device Adin Transmitter ILR Lifetime Events as of 10/24/16 [...] ILR Presenting ECG Strip SR 70bpm Generator Length Control Tester Other Remote Monitor Serial# Generator Location Other Research Comments Research Comments 2 Generator Length Control Tester Medtronic Generator Investigational Generator Location Precordial Wireless Generator Yes Device Type ILR EP Device Followed By Other ILR AF Rate AF only ILR AF Duration Device Adin [employer] Express Transmitter Compatible Adin Transmitter Check Known Diagnosed AFib Yes On Anticoagulation Yes Specimen Performing Laboratory OTHER OUTSIDE LAB Narrative clinic [10/24/2016 4:16:54 PM - LEILA DRISCOLL] [facility] Interrogated to evaluate for AT/ AFLutter. Report/strips to MPE in clinic. brief but relatively frequent episodes of AFIB, although some of the recordings suggest potential small flutter waves. 2 min to 34 min since 5-25-17 events. 110 total events. Max HR 88-143bpm, ave 77-128bpm. Longest by episode list1 hr 4minOn August 31 ave HR 98bpm, MHR 154bpm. Routed MPE for co sign- review. in this encounter Visit Diagnoses Diagnosis Palpitations - Primary in this encounter
--- OUTSIDE RECORDS SUMMARY | 2017-01-14 01:31 | XMS REPORT | Encounter Summary ---
Author Author [facility] Organization [facility] Address Unknown Phone Unavailable Care Team Providers Care Internet Application Developer Name Role Phone PCP Unavailable Reason for Visit * Reason Comments New Patient Atrial Fibrillation Encounter Details Date Type Department Care Team Description 10/24/2016 Office Visit [facility] Cardiology Ricardo Grover MD New Patient (Atrial [address] Fibrillation) [address] [place] [address] [place] [address] [phone] Social History Tobacco Use Types Packs/Day Years Used Date Former Smoker 3 Quit: 10/25/1999 Alcohol Use Drinks/Week oz/Week Comments No Sex Assigned at Date Recorded Not on file as of this encounter Last Filed Vital Signs Vital Sign Reading Time Taken Blood Pressure 106/60 10/24/2016 1:05 PM CDT Pulse 60 10/24/2016 1:05 PM CDT Temperature - - Respiratory Rate - - Oxygen Saturation - - Inhaled Oxygen - - Concentration Weight 90.3 kg (199 lb) 10/24/2016 1:05 PM CDT Height 182.9 cm (6') 10/24/2016 1:05 PM CDT Body Mass Index 26.99 10/24/2016 1:05 PM CDT in this encounter Instructions * Patient Instructions - Wandy Blanco RN - 10/24/2016 2:45 PM CDT Call with decision about the procedure or different medication EP nurse triage nurse - [phone] Grover with device check in 2 months in this encounter Progress Notes * Ricardo Grover MD - 10/24/2016 1:29 PM CDT Formatting of this note may be different from the original. Date of Service: 10/24/2016 Amos Tolentino is a 76 y.o. male. HPI I had the pleasure of seeing your patient Amos Tolentino ("reannamaria eugenia") in the [facility] as a part of the [facility] Cardiology [facility] office today for initial Electrophysiolgy Consultation regarding his Atrial Arrhythmias. He was referred by my friend and colleague, Dr. Cari Stiles, his Primary Diagnostics Sales Developer. Mr. Tolentino is an exceptionally pleasant 76 y.o. male, who is accompanied by his equally pleasant spouse. All data in this note, including the past medical history, was newly collected today. His PMHx briefly includes: Paroxysmal Atrial Arrhythmias S/P Medtronic Reveal LinQ Implantable Looping Monitor (03/2016, Dr. Stiles); First-Degree AV Block; CAD with Prior CABG x4 (~2000) --> PCI(s) of Grafts (2011, 2015) --> Severe [place] Disease, Patent Grafts to RCA, Diagonal, LAD, with "Nearly Occluded SVG to OM" --> Successful PCI at time of Cardiac Cath (09/25/16, Dr. Stiles); PVD; Mild Carotid Artery Disease; Hypertension; Hyperlipidemia; DM-2; GERD. He has a [id number] score of 5: Age, HTN, DM, CAD/PVD. NOTE: Intolerance to Brilinta causing increasing dyspnea. ~08/2015: Initiated Multaq 400 mg BID for atrial arrhythmias documented via his Medtronic Reveal LinQ Implantable Looping Monitor. His ILR has continued to document recurrent atrial arrhythmias and so he was referred for EP Consultation. He STATES he "feels great" today because he is not in AFIB. But other days he has tachypalpitations with associated dyspnea on exertion and fatigue. He denies any bleeding issues on Anticoagulation. He denies any chest discomfort, lightheadedness, dizziness, near syncope or syncope, PND or orthopnea. FHx, SHx and ROS documented and I have reviewed, with some pertinent features to include: FHx is Non-Contributory. He is a Former-Smoker (Quit 1999). Most pertinent ROS is included/discussed throughout the note, e.g. HPI and A/P. ASSESSMENT AND PLAN: -- Paroxysmal Atrial Arrhythmias-- AFIB/AFL: His Medtronic Reveal LinQ Implantable Looping Monitor has documented brief but relatively frequent episodes of AFIB, although some of the recordings suggest potential small flutter waves. We had a lengthy discussion regarding Atrial Fibrillation and Atrial Flutter, their respective pathophysiologies, mechanisms, and therapeutic options. We discussed what I call the 3 R's: The Rhythm being abnormal; the Rate being Rapid; and the Risk of stroke. Regarding Risk of Stroke: He remains on Eliquis without bleeding issues-- I recommended he continue this indefinitely given his [id number] score of 4. Regarding Rate: We will continue Lopressor 25 mg BID without change for now since he appears to have reasonable V-rate control. Regarding Rhythm: He states he has been on Multaq 400 mg BID for the past 1- 2 months-- over the past 1-2 months, his AFIB burden appears to be only slightly less. Therefore, we discussed alternative rhythm control strategies includin) Continuing Multaq 400 mg BID without change (which I did not recommend) 2) Changing Antiarrhythmic Therapy to Tikosyn, Sotalol, or Amiodarone. 3) Pursuing an AFIB Ablation procedure, recognizing the 5-year cure rate for him is approximately ~50-60% at best given his age, although likelihood for better rhythm control is ~70%. We discussed the procedure and risks of an AFIB Ablation procedure to include, but not limited to, , [place], stroke, cardiac perforation, PV stenosis, diaphragmatic paralysis via phrenic nerve injury, catheter entrapment in the mitral valve or other location, bleeding, infection, DVT, vascular injury, or worsening atrial arrhythmias. There is also a low risk of possible esophageal ulceration, atrial esophageal fistula or atrial bronchial fistula or even possible need for major surgery to address a complication. After extensive discussion regarding all of the above options, he wishes to go home and "think it over." He will contact our office to let us know what he wants to do. -- S/P Kaesu Reveal LinQ Implantable Looping Monitor (03/2016, Dr. Stiles): His device is functioning well. We have not made any programming changes at today's visit. -- CAD with Prior CABG x4 (~2000) and PCI(s) of Grafts (2011, 2015, 2016): He denies any symptoms suggestive of angina. The results from his Cardiac Cath on via Dr. Stiles's office results are noted above. -- PVD: Remains asymptomatic. Followed by Dr. Stiles -- Mild Carotid Artery Disease: Followed by Dr. Stiles. -- Hypertension: His blood pressure is under good control. -- Hyperlipidemia: Followed by Dr. Stiles and his Primary Care Physician. -- DM-2: Followed by his Primary Care Physician. Mr. Tolentino was educated regarding plan of care. He was instructed to call our office with any questions or concerns, as well as to notify us of any new or worsening symptoms. He verbalized understanding. I appreciate the opportunity to participate in the care of your patient. Please do not hesitate to contact me directly if you have any questions or further insights into his care. I have scheduled his follow-up with me in 2 month(s). Filed Vitals: 10/24/16 1305 BP: 106/60 Pulse: 60 Height: 1.829 m (6') Weight: 90.266 kg (199 lb) Body mass index is 26.98 kg/(m^2). Past Medical History Patient Active Problem List Diagnosis Date Noted Coronary artery disease involving [place] coronary artery 10/24/20162000 CABG x 4 02/17/12 PTCA BMS to vein graft to the OM 03/02/16 severe in-stent restenosis in the SVG to the OM with successful PCI, no residual stenosis, patent VG to RCA VG to the diag artery and AMANDA to the LAD occluded [place] vessels proximally, small vessel disease distally 09/25/16 [facility] - severe [place] disease, patent graft to RCA, diagonal LAD, probably occluded graft to OM - felt to be reason for chest pain in stent severe restenosis in the SVG to OM with successfull PCI, no residual disease PVD (peripheral vascular disease) ([facility]) 10/24/2016 03/02/16 peripheral angio: severe PAD with total occlusion of the post tibial and peroneal artery at the trifurcation, level reconstructed by collateral down at the ankle with occlusion at the ant tibial artery at the ankle level. Mod PAD on LLE down to the trifurcation Carotid artery disease ([facility]) 10/24/2016 10/19/16 carotid US - mild stenosis, nonobstructive disease bilaterally PAF (paroxysmal atrial fibrillation) ([facility]) 10/24/2016 03/24/16 LINQ implantation Essential hypertension 10/24/2016 Hyperlipidemia 10/24/2016 DJD (degenerative joint disease) 10/24/2016 Cardiac device in situ 10/24/2016 Review of Systems Constitution: Positive for weight loss. HENT: Negative. Eyes: Positive for photophobia. Cardiovascular: Positive for claudication, irregular heartbeat and leg swelling. Respiratory: Positive for wheezing. Endocrine: Negative. Hematologic/Lymphatic: Negative. Skin: Negative. Musculoskeletal: Positive for arthritis, back pain, joint pain, joint swelling, muscle cramps, muscle weakness, myalgias, neck pain and stiffness. Gastrointestinal: Positive for abdominal pain and flatus. Genitourinary: Positive for decreased libido. Neurological: Negative. Psychiatric/Behavioral: Negative. Allergic/Immunologic: Positive for environmental allergies. Physical Exam Constitutional: He is in no acute distress, resting comfortably. Skin/Integument: Warm and dry Eyes: PERRL, sclera are non-icteric and no xanthelasmas noted. ENT : Hearing is intact, Oropharynx is clear and moist. Heme/Lym/Immun: Supple neck, without thyromegaly Respiratory-Pulmonary/Chest: Effort normal and breath sounds normal. No respiratory distress or accessory muscle use. No obvious tracheal deviation. Clear to auscultation bilaterally. Cardiovascular: No evidence of increased jugular venous pressure, carotids are 2+/4+ equal bilaterally, without obvious bruit. Regular rhythm, S1, S2. Soft 1 -2/6 systolic murmur noted at the apex. No heaves, thrills or rubs. GI: + Bowel sounds, soft and non-tender Musc/Skeletal-Extremities: Without significant peripheral edema and with what appears to be full ROM. Device Site: Medtronic Reveal LinQ Implantable Looping Monitor site well- healed. Neuro: Patient is alert and oriented to person, place, and time. Psych: Patient does not appear anxious, he appears appropriate, with normal non -pressured speech and what appears to be appropriate judgement. Cardiovascular Studies ECG today demonstrates sinus rhythm at 60 bpm with sinus arrhythmia and First- Degree AV Block at 216 msec. Medtronic Reveal LinQ Implantable Looping Monitor Full device check performed with reprogramming which I have extensively reviewed. Changes, if done, as discussed below and is detailed in other dictation/note. Since 03/22/16, 110 AFIB events for a burden of 0.5%. Longest episode appears to be 1 hour. 78 of the episodes are 2-10 minutes in duration. Most recent episode was 10/16/16, lasting 4 minutes. Some of the event recordings suggest potential P- waves or flutter waves present, albeit small, while others appear to be more clearly AFIB. There are some transmission that document sinus rhythm with short bursts of PACs or atrial bigeminy. Problems Addressed Today Encounter Diagnoses Name Primary? PAF (paroxysmal atrial fibrillation) (HCC) Yes Cardiac device in situ Current Medications (including today's revisions) apixaban (ELIQUIS) 5 mg tablet Take 5 mg by mouth twice daily. aspirin EC 81 mg tablet Take 81 mg by mouth daily. Take with food. baclofen (LIORESAL) 10 mg tablet Take 10 mg by mouth three times daily. cilostazol(+) (PLETAL) 100 mg tablet Take 100 mg by mouth twice daily. Take on an empty stomach at least 30 minutes before or 2 hours after food. digoxin (LANOXIN) 125 mcg tablet Take 125 mcg by mouth daily. dronedarone (MULTAQ) 400 mg tablet Take 400 mg by mouth twice daily with meals. enalapril (VASOTEC) 5 mg tablet Take 5 mg by mouth daily. fenofibrate (FENOGLIDE) 120 mg tablet Take 134 mg by mouth daily. Take with food. gabapentin (NEURONTIN) 300 mg capsule Take 300 mg by mouth every 8 hours. glipiZIDE (GLUCOTROL) 10 mg tablet Take 10 mg by mouth daily. insulin aspart (NOVOLOG) 100 unit/mL injection Inject 5 Units under the skin three times daily with meals. metoprolol tartrate (LOPRESSOR) 25 mg tablet Take 25 mg by mouth twice daily. montelukast (SINGULAIR) 10 mg tablet Take 10 mg by mouth at bedtime daily. naproxen (NAPROSYN) 250 mg tablet Take 250 mg by mouth twice daily with meals. Take with food. nitroglycerin (NITRODUR) 0.1 mg/hr patch Apply 1 Patch to top of skin as directed daily. nitroglycerin (NITROSTAT) 0.[address] 0.4 mg under tongue every 5 minutes as needed for Chest Pain. Max of 3 tablets, call 911. pentoxifylline ER (TRENTAL) 400 mg tablet Take 400 mg by mouth three times daily. Take with food. pravastatin (PRAVACHOL) 80 mg tablet Take 80 mg by mouth at bedtime daily. traZODone (DESYREL) 50 mg tablet Take 50 mg by mouth at bedtime as needed for Sleep. Documentation recorded by Chantel Stiles, acting as scribe for Ricardo Grover M.D. in this encounter Plan of Treatment Name Priority Associated Diagnoses Order Schedule ECG 12-LEAD Routine PAF (paroxysmal atrial Ordered: 10/24/2016 fibrillation) ([facility]) Cardiac device in situ as of this encounter Visit Diagnoses Diagnosis PAF (paroxysmal atrial fibrillation) ([facility]) - Primary Atrial fibrillation Cardiac device in situ Unspecified cardiac device in situ in this encounter
--- OUTSIDE RECORDS SUMMARY | 2017-01-14 01:31 | XMS REPORT | Clinical Summary ---
Author Author [facility] Organization [facility] Address Unknown Phone Unavailable Care Team Providers Care Outside Repairer Special Name Role Phone PCP Unavailable Source Comments Some departments are not documenting in the electronic medical record. If you do not see the information that you expected, contact Release of Information in the Health Information Management department at [phone] for further assistance in locating additional records.[facility] Allergies Not on File Current Medications [...] Problem Noted Date Coronary artery disease involving [place] coronary artery 10/24/2016 Overview: 2000 CABG x 4 02/17/12 PTCA BMS to vein graft to the OM 03/02/16 severe in-stent restenosis in the SVG to the OM with successful PCI, no residual stenosis, patent VG to RCA VG to the diag artery and AMANDA to the LAD occluded [place] vessels proximally, small vessel disease distally 09/25/16 [facility] - severe [place] disease, patent graft to RCA, diagonal LAD, probably occluded graft to OM - felt to be reason for chest pain in stent severe restenosis in the SVG to OM with successfull PCI, no residual disease PVD (peripheral vascular disease) ([facility]) 10/24/2016 Overview: 03/02/16 peripheral angio: severe PAD with total occlusion of the post tibial and peroneal artery at the trifurcation, level reconstructed by collateral down at the ankle with occlusion at the ant tibial artery at the ankle level. Mod PAD on LLE down to the trifurcation Carotid artery disease ([facility]) 10/24/2016 Overview: 10/19/16 carotid US - mild stenosis, nonobstructive disease bilaterally PAF (paroxysmal atrial fibrillation) ([facility]) 10/24/2016 Overview: 03/24/16 LINQ implantation Essential hypertension 10/24/2016 Hyperlipidemia 10/24/2016 DJD (degenerative joint disease) 10/24/2016 Cardiac device in situ 10/24/2016 Encounters Date Type Specialty Care Team Description 10/24/2016 Hospital Cardiology Ricardo Grover MD Encounter 10/24/2016 Office Visit Cardiology Ricardo Grover MD New Patient ( Atrial Fibrillation) 10/24/2016 Ancillary Cardiology Ricardo Grover MD Palpitations ( Primary Dx) Orders from Last 3 Months Social History Tobacco [...] Implanted By Dr Stiles Generator Serial # [id number] EP Device Followed by Dr Sampson Name Device [place] Transmitter ILR Lifetime Events as of 10/24/16 [...] ILR Presenting ECG Strip SR 70bpm Generator Car Mechanic Helper Other Remote Monitor Serial# Generator Location Other Research Comments Research Comments 2 Generator Car Mechanic Helper Medtronic Generator Investigational Generator Location Precordial Wireless Generator Yes Device Type ILR EP Device Followed By Other ILR AF Rate AF only ILR AF Duration Device [place] Care[employer] Express Transmitter Compatible [place] Transmitter Check Known Diagnosed AFib Yes On [...]
--- NOTE | 2017-01-14 01:36 | ED General ---
General Stated Complaint: N/D/ FLU Source of Information: Patient, EMS Exam Limitations: No Limitations History of Present Illness Time Seen by Provider: 01:26 Initial Comments Patient presents to ER with a chief complaint of body aches, fatigue, nausea without vomiting, loose stools starting this evening. He says he was out about all day shopping with the who was sick just 2 days ago with similar symptoms and diagnosed with a virus. This evening he started feeling poorly and EMS reports they gave him 4 mg Zofran on route. He has no sore throat or nasal congestion or ear popping however he feels that he cannot vomit because she's had a hernia surgery in the past. He took Motrin 3 or 4 hours ago. He feels these Aches all over his body. He does have an occasional dry cough but no shortness of breath. No rash. Allergies and Home Medications Allergies Coded Allergies: celecoxib (Unverified Allergy, Mild, TAKES ASPIRIN AT HOME, 12/21/14) diclofenac (Unverified Allergy, Mild, TAKES ASPIRIN AT HOME, 12/21/14) naproxen (Unverified Allergy, Mild, TAKES ASPIRIN AT HOME, 12/21/14) rosuvastatin (Unverified Allergy, Mild, 08/14/08) Penicillins (Verified Allergy, Unknown, 08/03/05) amoxicillin (Verified Allergy, Unknown, 08/03/05) fenofibrate (Unverified Allergy, Unknown, 06/05/16) morphine (Verified Allergy, Unknown, TAKES HYDROCODONE AT HOME, 07/17/14) simvastatin (Unverified Allergy, Unknown, 06/05/16) Uncoded Allergies: GEMIFIBOROZIL (Allergy, Unknown, 06/05/16) Home Medications Apixaban 5 Mg Tablet, 5 MG PO BID, (Reported) Aspirin 81 Mg Tablet.dr, 81 MG PO DAILY, (Reported) Baclofen 10 Mg Tablet, 10 MG PO TID PRN for MUSCLE SPASMS, (Reported) Cilostazol 100 Mg Tablet, 100 MG PO BID, (Reported) Digoxin 125 Mcg Tablet, 125 MCG PO DAILY, (Reported) Docusate Sodium 100 Mg Capsule, 100 MG PO DAILY PRN for CONSTIPATION-1ST LINE, ( Reported) Dronedarone HCl 400 Mg Tablet, 400 MG PO BID, (Reported) Fenofibrate,Micronized 134 Mg Capsule, 134 MG PO DAILY, (Reported) Gabapentin 300 Mg Capsule, 600 MG PO HS, (Reported) TAKES 2 (300 MG) CAPSULES Glipizide 10 Mg Tablet, 10 MG PO DAILY, (Reported) Insulin Detemir 100 Unit/1 Ml Insuln.pen, 43 UNIT SQ HS, (Reported) Metoclopramide HCl 5 Mg Tablet, 5 MG PO ACHS, #120 Ref 0 Prescribed by: JUSTINE TABARES on 12/16/16 1831 Metoprolol Tartrate 25 Mg Tablet, 12.5 MG PO BID, (Reported) TAKES 1/2 OF A (25 MG) TABLET Montelukast Sodium 10 Mg Tablet, 10 MG PO DAILY, (Reported) Nitroglycerin 0.4 Mg Tab.subl, 0.4 MG SL UD PRN for CHEST PAIN, (Reported) MAX OF 3 TABS IN 15 MINUTES / CALL 911 IF PAIN REMAINS AFTER 5 MINUTES Ondansetron 4 Mg Tab.rapdis, 4 MG PO Q6H PRN for NAUSEA/VOMITING, #8 Ref 0 Prescribed by: WENDY SARMIENTO on 01/14/17 0140 Pentoxifylline 400 Mg Tablet.er, 400 MG PO BID, (Reported) Pravastatin Sodium 80 Mg Tablet, 80 MG PO HS, (Reported) Trazodone HCl 50 Mg Tablet, 50 MG PO HS, (Reported) Umeclidinium Brm/Vilanterol Tr 1 Each Blst.w.dev, 1 PUFF IH DAILY, (Reported) Constitutional: No chills, No diaphoresis, No fever, malaise, weakness EENTM: No ear discharge, No ear pain, No eye pain Respiratory: cough, No hemoptysis, No phlegm, No short of breath, No wheezing Cardiovascular: No chest pain, Hx of Intervention, No palpitations, No syncope , vascular heart diseas Gastrointestinal: No abdominal pain, No constipation, No diarrhea, nausea, No vomiting, other (distended) Genitourinary: No discharge, No dysuria Musculoskeletal: No back pain, No joint pain, No joint swelling Skin: No pruritus, No rash Psychiatric/Neurological: Denies Headache, Denies Numbness, Denies Paresthesia Hematologic/Lymphatic: Denies Blood Clots, Easy Bleeding, Easy Bruising ( Eliquis) Past Vkezzkn-Znovcr-Yyfoyv Hx Patient Social History Alcohol Use: Denies Use Alcohol Beverage of Choice: Beer Recreational Drug Use: No Smoking Status: Current Everyday Smoker Type Used: Cigarettes Former Smoker, Quit: Mar 01, 2000 2nd Hand Smoke Exposure: Yes Recent Foreign Travel: No Contact w/Someone Who Travel: No Recent Hopitalizations: No Immunizations Up To Date Tetanus Booster (TDap): Less than 5yrs PED Vaccines UTD: No Date of Pneumonia Vaccine: Jun 14, 2015 Date of Influenza Vaccine: Feb 12, 2016 Seasonal Allergies Seasonal Allergies: Yes Surgeries History of Surgeries: Yes (GALL BLADDER, HERNIA, OPEN HEART, BACK) Surgeries: Abdominal, Cardiac, CABG, Coronary Stent, Eye Surgery, Gallbladder, Joint Replacement, Open Heart Surgery, Orthopedic, Vascular Surgery Respiratory History of Respiratory Disorde: Yes (CHRONIC DYSPNEA ON EXERTION) Respiratory Disorders: Sleep Apnea, COPD Currently Using CPAP: No Currently Using BIPAP: No Cardiovascular History of Cardiac Disorders: Yes Cardiac Disorders: Atrial Fibrillation, Coronary Artery Disease, Heart Attack, High Cholesterol, Hypertension, Peripheral Vascular Neurological History of Neurological Disord: Yes (POSSIBLE STROKE/ TIA) Neurological Disorders: Stroke, TIA Reproductive System Hx Reproductive Disorders: No Sexually Transmitted Disease: No HIV/AIDS: No Genitourinary History of Genitourinary Disor: Yes Genitourinary Disorders: Benign Prostatic Hyperpl, Prostate Problems, Renal Failure Gastrointestinal History of Gastrointestinal Di: Yes (GASTROPARESIS; GASTRITIS; DUODENITIS; COLON POLYPECTOMY) Gastrointestinal Disorders: Gastroesophageal Reflux, Pancreatitis, Polyps Musculoskeletal History of Musculoskeletal Dis: Yes (OLECRANON BURSITIS, CHRONIC NECK PAIN, DISH SYNDROME) Musculoskeletal Disorders: Degenerate Disk Disease, Arthritis, Chronic Back Pain Endocrine History of Endocrine Disorders: Yes Endocrine Disorders: Diabetes, Insulin dep HEENT History of HEENT Disorders: Yes HEENT Disorders: Cataract Loss of Vision: Denies Hearing Impairment: Denies Cancer History of Cancer: No Psychosocial History of Psychiatric Problem: Yes Behavioral Health Disorders: Anxiety Integumentary History of Skin or Integumenta: No Blood Transfusions History of Blood Disorders: No Adverse Reaction to a Blood Tr: No Family Medical History Significant Family History: No Pertinent Family Hx Family Medial History: Cancer G8 BROTHER Cataract 19 FATHER 19 MOTHER G8 BROTHER G8 BROTHER G8 SISTER Congestive heart failure 19 FATHER 19 MOTHER Family history: Arthritis 19 FATHER 19 MOTHER G8 BROTHER G8 BROTHER G8 SISTER G8 SISTER DAUGHTER SON Family history: Breast disease DAUGHTER Family history: Cardiovascular disease 19 FATHER Family history: Diabetes mellitus 19 FATHER G8 BROTHER G8 SISTER Family history: Hypertension 19 FATHER 19 MOTHER G8 BROTHER G8 BROTHER G8 SISTER G8 SISTER DAUGHTER SON Family history: Thyroid disorder DAUGHTER Heart disease 19 FATHER 19 MOTHER G8 BROTHER Hypercholesterolemia 19 FATHER 19 MOTHER G8 BROTHER G8 BROTHER G8 SISTER Myocardial infarction 19 FATHER 19 MOTHER G8 BROTHER No Family History of: Abdominal aortic aneurysm Ranger's disease Alcoholism Aphasia Cancer of colon Chest pain Congenital heart disease Cystic fibrosis Dementia Dysphagia Family history: Allergy Family history: Alzheimer's disease Family history: Asthma Family history: Coronary thrombosis Family history: Gastrointestinal disease Family history: Glaucoma Family history: Osteoporosis Headache Hearing loss Hereditary disease History of - anemia History of - disorder History of - respiratory disease History of drug abuse Human immunodeficiency virus (HIV) seropositivity Infertile Kidney disease Malignant neoplasm of lung Parkinson's disease Prostate cancer Psychotic disorder Seizure disorder Stroke Tuberculosis Visual impairment Physical Exam Vital Signs Vital Sign - Last 12Hours 01/14/17 01:20 Temp 99.0 Pulse 93 Resp 22 B/P (MAP) 133/92 Pulse Ox 99 O2 Delivery Room Air Capillary Refill : General Appearance: WD/WN, Mild Distress Eyes: Bilateral Eye Normal Inspection, Bilateral Eye PERRL, Bilateral Eye EOMI HEENT: PERRL/EOMI, Normal ENT Inspection, Pharynx Normal Neck: Full Range of Motion, Non Tender, Supple Respiratory: Chest Non Tender, Lungs Clear, Normal Breath Sounds Cardiovascular: Regular Rate, Rhythm, No Edema, No Murmur, Normal Peripheral Pulses Gastrointestinal: Normal Bowel Sounds, No Organomegaly, Non Tender, Soft, Distended, No Guarding Back: Normal Inspection, CVA Tenderness (L) (mild) Extremity: Normal Capillary Refill, No Pedal Edema Neurologic/Psychiatric: Alert, Oriented x3, No Motor/Sensory Deficits Skin: Normal Color, Warm/Dry Lymphatic: No Adenopathy Progress/Results/Core Measures Results/Orders Lab Results Laboratory Tests Test 01/14/17 01:25 01/14/17 01:55 Range/Units White Blood Count 12.3 H 4.3-11.0 10^3/uL Red Blood Count 4.44 4.35-5.85 10^6/uL Hemoglobin 12.8 L 13.3-17.7 G/DL Hematocrit 40 40-54 % Mean Corpuscular Volume 89 80-99 FL Mean Corpuscular Hemoglobin 29 25-34 PG Mean Corpuscular Hemoglobin Concent 32 32-36 G/DL Red Cell Distribution Width 14.0 10.0-14.5 % Platelet Count 305 130-400 10^3/uL Mean Platelet Volume 10.2 7.4-10.4 FL Neutrophils (%) (Auto) 86 H 42-75 % Lymphocytes (%) (Auto) 4 L 12-44 % Monocytes (%) (Auto) 8 0-12 % Eosinophils (%) (Auto) 2 0-10 % Basophils (%) (Auto) 0 0-10 % Neutrophils # (Auto) 10.6 H 1.8-7.8 X 10^3 Lymphocytes # (Auto) 0.5 L 1.0-4.0 X 10^3 Monocytes # (Auto) 0.9 0.0-1.0 X 10^3 Eosinophils # (Auto) 0.2 0.0-0.3 10^3/uL Basophils # (Auto) 0.0 0.0-0.1 10^3/uL Neutrophils % (Manual) 91 % Lymphocytes % (Manual) 3 % Monocytes % (Manual) 6 % Eosinophils % (Manual) 0 % Basophils % (Manual) 0 % Band Neutrophils 0 % Anisocytosis SLIGHT Sodium Level 141 135-145 MMOL/L Potassium Level 4.2 3.6-5.0 MMOL/L Chloride Level 104 98-107 MMOL/L Carbon Dioxide Level 23 21-32 MMOL/L Anion Gap 14 5-14 MMOL/L Blood Urea Nitrogen 18 7-18 MG/DL Creatinine 1.64 H 0.60-1.30 MG/DL Estimat Glomerular Filtration Rate 41 BUN/Creatinine Ratio 11 Glucose Level 93 70-105 MG/DL Calcium Level 10.0 8.5-10.1 MG/DL Total Bilirubin 0.5 0.1-1.0 MG/DL Aspartate Amino Transf (AST/SGOT) 24 5-34 U/L Alanine Aminotransferase (ALT/SGPT) 20 0-55 U/L Alkaline Phosphatase 68 40-136 U/L B-Type Natriuretic Peptide 35.1 <100.0 PG/ML Total Protein 7.8 6.4-8.2 GM/DL Albumin 4.2 3.2-4.5 GM/DL Urine Color YELLOW Urine Clarity CLEAR Urine pH 7 5-9 Urine Specific [place] 1.010 L 1.016-1.022 Urine Protein NEGATIVE NEGATIVE Urine Glucose (UA) NEGATIVE NEGATIVE Urine Ketones NEGATIVE NEGATIVE Urine Nitrite NEGATIVE NEGATIVE Urine Bilirubin NEGATIVE NEGATIVE Urine Urobilinogen NORMAL NORMAL MG/DL Urine Leukocyte Esterase 1+ H NEGATIVE Urine RBC (Auto) NEGATIVE NEGATIVE Urine RBC NONE /HPF Urine WBC RARE /HPF Urine Squamous Epithelial Cells RARE /HPF Urine Crystals NONE /LPF Urine Bacteria NEGATIVE /HPF Urine Casts PRESENT /LPF Urine Hyaline Casts RARE /LPF Urine Mucus NEGATIVE /LPF Urine Culture Indicated NO My Orders Orders - WENDY SARMIENTO BNP (01/14/17 01:27) Cbc With Automated Diff (01/14/17 01:27) Comprehensive Metabolic Panel (01/14/17 01:27) Ua Culture If Indicated (01/14/17 01:27) Chest 1 View, Ap/Pa Only (01/14/17 01:27) Ondansetron Injection (Zofran Injectio (01/14/17 01:30) Acetaminophen Tablet (Tylenol Tablet) (01/14/17 01:30) Manual Differential (01/14/17 01:25) Promethazine Injection (Phenergan Injec (01/14/17 02:00) Medications Given in ED Current Medications Medications Dose Ordered Sig/Alka Route Start Time Stop Time Status Last Admin Dose Admin Acetaminophen 1,000 mg ONCE ONCE PO 01/14/17 01:30 01/14/17 01:31 DC 01/14/17 01:37 1,000 MG Ondansetron HCl 4 mg ONCE ONCE IVP 01/14/17 01:30 01/14/17 01:31 DC 01/14/17 01:36 4 MG Promethazine HCl 25 mg ONCE ONCE IM 01/14/17 02:00 01/14/17 02:01 DC 01/14/17 02:06 25 MG Vital Signs/I&O Vital Sign - Last 12Hours 01/14/17 01/14/17 01:20 02:06 Temp 99.0 99.0 Pulse 93 Resp 22 B/P (MAP) 133/92 Pulse Ox 99 O2 Delivery Room Air Progress Note #1: Time: 01:35 Progress Note Recent exposure to viral gastroenteritis. Patient has bodyaches which would be consistent with a virus. We'll do some lab and urine to rule out other common maladies. He is not short of breath nor is he having any wheezing or other respiratory compromise. However since she's having a cough we will get a chest x -ray to compare the last x-rays. Progress Note #2: Time: 02:17 Progress Note Patient's feeling marginally better after some Zofran, Phenergan and Tylenol. His labs are consistent with his clinical history of exposure to viral gastroenteritis. His is here now and she looks much better than she did a few days ago. We will allow him to go home with conservative care. Diagnostic Imaging Diagonstic Imaging: Xray Plain Films/CT/US/NM/MRI: chest Comments No acute cardiopulmonary processes noted. Reviewed: Reviewed by Me Departure Impression Impression: Primary Impression: Gastroenteritis and colitis, viral Disposition: HOME, SELF-CARE Condition: Stable Departure-Patient Inst. Decision time for Depature: 02:17 Referrals: IRAJ HERRERA MD (PCP/Family) Primary Care Physician Patient Instructions: Viral Gastroenteritis, Adult (DC) Add. Discharge Instructions: Place one tablet of Zofran under your tongue and allowed to dissolve and absorb or your mouth every 6 hours as needed to control the nausea. Get plenty of fluids down. Eating is not so important however if you're having loose stools you can eat foods that are high in fiber such as bananas, rice, applesauce and toast. A fever is not unusual with a viral gastroenteritis and can typically be treated with Tylenol 1000 mg every 8 hours. You may also use cool washcloths. If you're having body aches is also reasonable use Tylenol. Because of your use of Eliquis you should avoid using ibuprofen very often. 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 If you have new or worrisome symptoms or is lasting longer than that should present yourself to your primary care physician. Scripts Ondansetron (Ondansetron Odt) 4 Mg Tab.rapdis 4 MG PO Q6H Y for NAUSEA/VOMITING, #8 TAB 0 Refills Prov: WENDY SARMIENTO 01/14/17 Copy Copies To 1: IRAJ HERRERA MD, TITUS J Jan 14, 2017 01:36
[2017-01-14 01:38] LABS: BASOPHILS % (AUTO) 0 % (0-10); EOSINOPHILS # (AUTO) 0.2 10^3/uL (0.0-0.3); EOSINOPHILS % (AUTO) 2 % (0-10); LYMPHOCYTES # (AUTO) 0.5 X 10^3 (1.0-4.0); LYMPHOCYTES % (AUTO) 4 % (12-44); MEAN CORPUSCULAR HEMOGLOBIN 29 PG (25-34); MEAN CORPUSCULAR HGB CONC 32 G/DL (32-36); MEAN CORPUSCULAR VOLUME 89 FL (80-99); MEAN PLATELET VOLUME 10.2 FL (7.4-10.4); MONOCYTES # (AUTO) 0.9 X 10^3 (0.0-1.0); MONOCYTES % (AUTO) 8 % (0-12); NEUTROPHILS # (AUTO) 10.6 X 10^3 (1.8-7.8); NEUTROPHILS % (AUTO) 86 % (42-75); PLATELET COUNT 305 10^3/uL (130-400); RED BLOOD COUNT 4.44 10^6/uL (4.35-5.85); WHITE BLOOD COUNT 12.3 10^3/uL (4.3-11.0)
[2017-01-14] MEDS ORDERED: ONDA4TAB11 PO (01:40)
[2017-01-14 01:55] LABS: ANISOCYTOSIS SLIGHT; BAND NEUTROPHILS 0 %; BASOPHILS % (MANUAL) 0 %; EOSINOPHILS % (MANUAL) 0 %; LYMPHOCYTES % (MANUAL) 3 %; NEUTROPHILS % (MANUAL) 91 %
[2017-01-14] MEDS ORDERED: PROMETHAZINE INJ 25 MG/ML (PHENERGAN) AMP IM ONE (02:00)
[2017-01-14 02:02] LABS: BILIRUBIN,URINE NEGATIVE (NEGATIVE); KETONES,URINE NEGATIVE (NEGATIVE); LEUKOCYTE ESTERASE ,URINE 1+ (NEGATIVE); NITRITE,URINE NEGATIVE (NEGATIVE); PH,URINE 7 (5-9); PROTEIN,URINE NEGATIVE (NEGATIVE); UROBILINOGEN,URINE NORMAL (NORMAL)
[2017-01-14 02:04] LABS: ALBUMIN 4.2 GM/DL (3.2-4.5); BILIRUBIN,TOTAL 0.5 MG/DL (0.1-1.0); CREATININE SERUM 1.64 MG/DL (0.60-1.30); POTASSIUM 4.2 MMOL/L (3.6-5.0); TOTAL PROTEIN 7.8 GM/DL (6.4-8.2)
[2017-01-14 02:09] LABS: HYALINE CASTS, URINE RARE /LPF; SQUAMOUS EPITHELIAL CELL,UR RARE /HPF; WBC,URINE RARE /HPF
[2017-01-14] MEDS ORDERED: RX-ONDANSETRON 4 MG ODT (ZOFRAN) PPK #4 PO STA (02:18)
[2017-01-14 02:28] VITALS: BP 117/60
--- NOTE | 2017-01-14 06:52 | Diagnostic Imaging Report ---
Clinical indication: Patient complains of weakness, nausea, and diarrhea. Exam: Portable chest x-ray upright view. Comparisons: Chest x-ray dated 12/05/2016. Findings: Lungs/pleura: There is mild bibasilar atelectasis. Otherwise, the lungs are clear. There is no pneumothorax. There is no pleural effusion. Mediastinum: Unremarkable. Pulmonary vasculature: Unremarkable. Heart: Heart size within normal limits. Again seen electronic device overlying the left chest region. Postop changes consistent with CABG with sternotomy wires and mediastinal clips are seen. Bones/extrathoracic soft tissue: There are degenerative spurs seen throughout the thoracic spine. Impression: There is mild bibasilar atelectasis. Otherwise, stable chest x-ray exam with no interval radiographic evidence of acute cardiopulmonary process. Dictated by: Dictated on workstation # [id number]
== END 2017-01-14 02:28 | disposition home or self-care (01) ==
LOC: EDUNIT# 01:23 → ER 01:26
DX: A08.4 Viral intestinal infection, unspecified (principal); G47.30 Sleep apnea, unspecified; J44.9 Chronic obstructive pulmonary disease, unspecified; I48.91 Unspecified atrial fibrillation; I25.10 Atherosclerotic heart disease of native coronary artery without angina pectoris; I25.2 Old myocardial infarction; E78.00 Pure hypercholesterolemia, unspecified; I10 Essential (primary) hypertension; K21.9 Gastro-esophageal reflux disease without esophagitis; F41.9 Anxiety disorder, unspecified; N40.0 Benign prostatic hyperplasia without lower urinary tract symptoms; E11.51 Type 2 diabetes mellitus with diabetic peripheral angiopathy without gangrene; I73.9 Peripheral vascular disease, unspecified; F17.210 Nicotine dependence, cigarettes, uncomplicated; Z86.73 Personal history of transient ischemic attack (TIA), and cerebral infarction without residual deficits; Z87.19 Personal history of other diseases of the digestive system; Z86.010 Personal history of colon polyps; Z82.49 Family history of ischemic heart disease and other diseases of the circulatory system; Z95.1 Presence of aortocoronary bypass graft; Z95.5 Presence of coronary angioplasty implant and graft; Z79.82 Long term (current) use of aspirin; Z79.84 Long term (current) use of oral hypoglycemic drugs; Z79.4 Long term (current) use of insulin
CPT/HCPCS: 36415; 71010; 80053; 81000; 83880; 85007; 85027; 96372; 96374

== ENCOUNTER 2017-02-03 13:39 | Emergency (ER) | payer MEDICARE, MEDICAID ==
[~2017-02-03] VITALS: Ht 182.9 cm; Wt 88.0 kg
--- OUTSIDE RECORDS SUMMARY | 2017-02-03 13:56 | XMS REPORT | Clinical Summary ---
Author Author [facility] Organization [facility] Address Unknown Phone Unavailable Care Team Providers Care Director [facility] Name Role Phone PCP Unavailable Source Comments Some departments are not documenting in the electronic medical record. If you do not see the information that you expected, contact Release of Information in the Health Information Management department at [phone] for further assistance in locating additional records.[facility] Allergies Not on File Current Medications [...] Problem Noted Date Coronary artery disease involving [place] coronary artery 10/24/2016 Overview: 2000 CABG x 4 02/17/12 PTCA BMS to vein graft to the OM 03/02/16 severe in-stent restenosis in the SVG to the OM with successful PCI, no residual stenosis, patent VG to RCA VG to the diag artery and AMANDA to the LAD occluded [place] vessels proximally, small vessel disease distally 09/25/16 [facility] - severe [place] disease, patent graft to RCA, diagonal LAD, probably occluded graft to OM - felt to be reason for chest pain in stent severe restenosis in the SVG to OM with successfull PCI, no residual disease PVD (peripheral vascular disease) ([facility]) 10/24/2016 Overview: 03/02/16 peripheral angio: severe PAD with total occlusion of the post tibial and peroneal artery at the trifurcation, level reconstructed by collateral down at the ankle with occlusion at the ant tibial artery at the ankle level. Mod PAD on LLE down to the trifurcation Carotid artery disease ([facility]) 10/24/2016 Overview: 10/19/16 carotid US - mild stenosis, nonobstructive disease bilaterally PAF (paroxysmal atrial fibrillation) ([facility]) 10/24/2016 Overview: 03/24/16 LINQ implantation Essential hypertension 10/24/2016 Hyperlipidemia 10/24/2016 DJD (degenerative joint disease) 10/24/2016 Cardiac device in situ 10/24/2016 Social History Tobacco Use Types Packs/Day Years [...] 2007 SCREENING PREVNAR/PNEUMOVAX (#1) 2007 INFLUENZA VACCINE 02/11/2017 Results Not on filefrom Last 3 Months
[2017-02-03 15:33] VITALS: BP 168/90
== END 2017-02-03 16:04 | disposition left against medical advice (07) ==
LOC: EDUNIT# 13:39 → ER 13:40
DX: M79.89 Other specified soft tissue disorders (principal)
CPT/HCPCS: 99281

== ENCOUNTER → 2017-03-12 | Outpatient (CLI) | payer MEDICARE, MEDICAID ==
--- NOTE | 2017-03-12 19:48 | Diagnostic Imaging Report ---
Three views of the thoracic spine. INDICATION: Back pain. FINDINGS: There are prominent anterior osteophytes and ossification of the anterior longitudinal ligament around mid thoracic spine levels. The alignment of the posterior spinal line is satisfactory. No compression fracture. The disc heights appear also preserved. The paraspinal soft tissues demonstrate post CABG changes and sternotomy wires. IMPRESSION: Prominent anterior longitudinal ligament ossification and anterior osteophytes around the midthoracic spine levels. Dictated by: Dictated on workstation # [id number]
--- NOTE | 2017-03-12 19:51 | Diagnostic Imaging Report ---
Three views of lumbar spine. INDICATION: Back pain. FINDINGS: There is satisfactory alignment of the lumbar spine at the posterior spinal line. There is a 40% compression fracture of L1 vertebral body. This is stable from 08/09/16 CT scan. No acute compression fracture is identified. Prominent anterior osteophytes at multiple levels seen. There is prominent facet arthropathy at the lower lumbar spine. Surgical clips in the upper right abdomen seen. IMPRESSION: Chronic compression fracture of L1 vertebral body. Degenerative changes. Dictated by: Dictated on workstation # [id number]
== END ==
LOC: RAD 14:34
PROVIDERS: ATTEND Family Medicine
DX: M47.814 Spondylosis without myelopathy or radiculopathy, thoracic region (principal); M47.816 Spondylosis without myelopathy or radiculopathy, lumbar region; M48.56XA Collapsed vertebra, not elsewhere classified, lumbar region, initial encounter for fracture
CPT/HCPCS: 72072; 72100

== ENCOUNTER 2017-04-22 21:18 | Emergency (ER) | payer MEDICARE, MEDICAID ==
[~2017-04-22] VITALS: Ht 182.9 cm; Wt 88.5 kg
[~2017-04-22 21:18] MED LIST changes: +BACL20TA PO; -NAPR250T2 PO; +NAPR250T6 PO
--- OUTSIDE RECORDS SUMMARY | 2017-04-22 21:24 | XMS REPORT | Clinical Summary ---
Author Author [facility] Organization [facility] Address Unknown Phone Unavailable Care Team Providers Care Signal Worker Name Role Phone PCP Unavailable Source Comments Some departments are not documenting in the electronic medical record. If you do not see the information that you expected, contact Release of Information in the Health Information Management department at [phone] for further assistance in locating additional records.[facility] Allergies Not on File Current Medications Prescription [...] Problem Noted Date Coronary artery disease involving [place] coronary artery 10/24/2016 Overview: 2000 CABG x 4 02/17/12 PTCA BMS to vein graft to the OM 03/02/16 severe in-stent restenosis in the SVG to the OM with successful PCI, no residual stenosis, patent VG to RCA VG to the diag artery and AMANDA to the LAD occluded [place] vessels proximally, small vessel disease distally 09/25/16 [facility] - severe [place] disease, patent graft to RCA, diagonal LAD, probably occluded graft to OM - felt to be reason for chest pain in stent severe restenosis in the SVG to OM with successfull PCI, no residual disease PVD (peripheral vascular disease) ([facility]) 10/24/2016 Overview: 03/02/16 peripheral angio: severe PAD with total occlusion of the post tibial and peroneal artery at the trifurcation, level reconstructed by collateral down at the ankle with occlusion at the ant tibial artery at the ankle level. Mod PAD on LLE down to the trifurcation Carotid artery disease ([facility]) 10/24/2016 Overview: 10/19/16 carotid US - mild stenosis, nonobstructive disease bilaterally PAF (paroxysmal atrial fibrillation) ([facility]) 10/24/2016 Overview: 03/24/16 LINQ implantation Essential [...] 2007 SCREENING PREVNAR/PNEUMOVAX (#1) 2007 INFLUENZA VACCINE 12/12/2016 Results Not on filefrom Last 3 Months
[2017-04-22] MEDS ORDERED: ENAL5TAB (21:34)
[2017-04-22] MEDS ORDERED: SITA100T12 (21:34)
[2017-04-22] MEDS ORDERED: PANT40TA3 (21:34)
[2017-04-22] MEDS ORDERED: NS IV 1000 ML 1,000 ML IV ONE (22:01)
--- NOTE | 2017-04-22 22:07 | ED Cardiac General ---
History of Present Illness General Chief Complaint: Cardiac/General Problems Stated Complaint: BLOOD PRESSURE Nursing Triage Note: C/O ANXIETY, HIGH BLOOD PRESSURE, HAS NOT TAKEN PM MEDICATIONS Source: patient, spouse Exam Limitations: no limitations History of Present Illness Time seen by provider: 21:56 Initial Comments Patient presents ER by private conveyance with chief complaint of high blood pressure. He has a history of about 10 years ago a CABG and since then been followed by Dr. Stiles, cardiology and has had a stent placed but is not sure when the last one was done. He says he has been having no trouble tonight except he was sitting in his chair doing his routine blood pressure check was machine and the blood pressure was 160- systolic over 110. He's had no chest pain, chills, sweats, nausea, arm pain, neck pain, jaw pain, numbness, tingling , shortness of breath, cough him a weakness, palpitations. He says he has a history of atrial fibrillation for which she uses Eliquis, digoxin, metoprolol tartrate, enalapril, and multiple back. He has not taken his evening pills as he usually takes was about 9:30 at night. He says his atrial fibrillation comes and goes. He has not had his blood pressure cuff validated at the clinic. Quit smoking in 1999. Allergies and Home Medications Allergies Coded Allergies: celecoxib (Unverified Allergy, Mild, TAKES ASPIRIN AT HOME, 12/21/14) diclofenac (Unverified Allergy, Mild, TAKES ASPIRIN AT HOME, 12/21/14) naproxen (Unverified Allergy, Mild, TAKES ASPIRIN AT HOME, 12/21/14) rosuvastatin (Unverified Allergy, Mild, 08/14/08) Penicillins (Verified Allergy, Unknown, 08/03/05) amoxicillin (Verified Allergy, Unknown, 08/03/05) fenofibrate (Unverified Allergy, Unknown, 06/05/16) morphine (Verified Allergy, Unknown, TAKES HYDROCODONE AT HOME, 07/17/14) simvastatin (Unverified Allergy, Unknown, 06/05/16) Uncoded Allergies: GEMIFIBOROZIL (Allergy, Unknown, 06/05/16) Home Medications Apixaban 5 Mg Tablet, 5 MG PO BID, (Reported) Aspirin 81 Mg Tablet., 81 MG PO DAILY, (Reported) Baclofen 10 Mg Tablet, 10 MG PO TID PRN for MUSCLE SPASMS, (Reported) Baclofen 20 Mg Tablet, 20 MG PO TID PRN for SPASMS, #12 Ref 0 Prescribed by: JENN WADE on 03/18/171916 Cilostazol 100 Mg Tablet, 100 MG PO BID, (Reported) Digoxin 125 Mcg Tablet, 125 MCG PO DAILY, (Reported) Docusate Sodium 100 Mg Capsule, 100 MG PO DAILY PRN for CONSTIPATION-1ST LINE, ( Reported) Dronedarone HCl 400 Mg Tablet, 400 MG PO BID, (Reported) Enalapril Maleate 5 Mg Tablet, (Reported) Fenofibrate,Micronized 134 Mg Capsule, 134 MG PO DAILY, (Reported) Gabapentin 300 Mg Capsule, 600 MG PO HS, (Reported) TAKES 2 (300 MG) CAPSULES Glipizide 10 Mg Tablet, 10 MG PO DAILY, (Reported) Insulin Detemir 100 Unit/1 Ml Insuln.pen, 43 UNIT SQ HS, (Reported) Metoclopramide HCl 5 Mg Tablet, 5 MG PO ACHS, #120 Ref 0 Prescribed by: JUSTINE TABARES on 12/16/161830 Metoprolol Tartrate 25 Mg Tablet, 12.5 MG PO BID, (Reported) TAKES 1/2 OF A (25 MG) TABLET Montelukast Sodium 10 Mg Tablet, 10 MG PO DAILY, (Reported) Nitroglycerin 0.4 Mg Tab.subl, 0.4 MG SL UD PRN for CHEST PAIN, (Reported) MAX OF 3 TABS IN 15 MINUTES / CALL 911 IF PAIN REMAINS AFTER 5 MINUTES Ondansetron 4 Mg Tab.rapdis, 4 MG PO Q6H PRN for NAUSEA/VOMITING, #8 Ref 0 Prescribed by: WENDY SARMIENTO on 01/14/17 0140 Pantoprazole Sodium 40 Mg Tablet., (Reported) Pentoxifylline 400 Mg Tablet.er, 400 MG PO BID, (Reported) Pravastatin Sodium 80 Mg Tablet, 80 MG PO HS, (Reported) Prednisone 20 Mg Tab, 40 MG PO DAILY, #10 Ref 0 Prescribed by: JENN WADE on 03/18/171916 Sitagliptin Phosphate 100 Mg Tablet, (Reported) Trazodone HCl 50 Mg Tablet, 50 MG PO HS, (Reported) Umeclidinium Brm/Vilanterol Tr 1 Each Blst.w.dev, 1 PUFF IH DAILY, (Reported) Review of Systems Constitutional: No chills, No diaphoresis, No fever, No malaise EENTM: No Symptoms Reported Respiratory: Denies Cough, Denies Shortness of Air Cardiovascular: Denies Edema, Irregular Heart Rate, Palpitations Gastrointestinal: Denies Abdomen Distended, Denies Abdominal Pain, Denies Diarrhea, Denies Nausea Genitourinary: Denies Burning, Denies Discharge Musculoskeletal: No back pain, No joint pain Psychiatric/Neurological: Denies Headache, Denies Numbness, Denies Paresthesia Past Gtjkvjj-Irpewr-Fedoog Hx Patient Social History Alcohol Use: Occasionally Uses Number of Drinks Today: AA Alcohol Beverage of Choice: Beer Recreational Drug Use: No Smoking Status: Former Smoker Type Used: Cigarettes Former Smoker, Quit: Mar 01, 2000 2nd Hand Smoke Exposure: Yes Recent Foreign Travel: No Contact w/Someone Who Travel: No Recent Infectious Disease Expo: No Recent Hopitalizations: No Immunizations Up To Date Tetanus Booster (TDap): Less than 5yrs PED Vaccines UTD: No Date of Pneumonia Vaccine: Jun 14, 2015 Date of Influenza Vaccine: Feb 12, 2016 Seasonal Allergies Seasonal Allergies: Yes Surgeries History of Surgeries: Yes (GALL BLADDER, HERNIA, OPEN HEART, BACK) Surgeries: Abdominal, Cardiac, CABG, Coronary Stent, Eye Surgery, Gallbladder, Joint Replacement, Open Heart Surgery, Orthopedic, Vascular Surgery Respiratory History of Respiratory Disorde: Yes (CHRONIC DYSPNEA ON EXERTION) Respiratory Disorders: Sleep Apnea, COPD Currently Using CPAP: No Currently Using BIPAP: No Cardiovascular History of Cardiac Disorders: Yes Cardiac Disorders: Atrial Fibrillation, Coronary Artery Disease, Heart Attack, High Cholesterol, Hypertension, Peripheral Vascular Neurological History of Neurological Disord: Yes (POSSIBLE STROKE/ TIA) Neurological Disorders: Stroke, TIA Reproductive System Hx Reproductive Disorders: No Sexually Transmitted Disease: No HIV/AIDS: No Genitourinary History of Genitourinary Disor: Yes Genitourinary Disorders: Benign Prostatic Hyperpl, Prostate Problems, Renal Failure Gastrointestinal History of Gastrointestinal Di: Yes (GASTROPARESIS; GASTRITIS; DUODENITIS; COLON POLYPECTOMY) Gastrointestinal Disorders: Gastroesophageal Reflux, Pancreatitis, Polyps Musculoskeletal History of Musculoskeletal Dis: Yes (OLECRANON BURSITIS, CHRONIC NECK PAIN, DISH SYNDROME) Musculoskeletal Disorders: Degenerate Disk Disease, Arthritis, Chronic Back Pain Endocrine History of Endocrine Disorders: Yes Endocrine Disorders: Diabetes, Insulin dep HEENT History of HEENT Disorders: Yes HEENT Disorders: Cataract Loss of Vision: Denies Hearing Impairment: Denies Cancer History of Cancer: No Psychosocial History of Psychiatric Problem: Yes Behavioral Health Disorders: Anxiety Integumentary History of Skin or Integumenta: No Blood Transfusions History of Blood Disorders: No Adverse Reaction to a Blood Tr: No Family Medical History Significant Family History: No Pertinent Family Hx Family Medial History: Cancer G8 BROTHER Cataract 19 FATHER 19 MOTHER G8 BROTHER G8 BROTHER G8 SISTER Congestive heart failure 19 FATHER 19 MOTHER Family history: Arthritis 19 FATHER 19 MOTHER G8 BROTHER G8 BROTHER G8 SISTER G8 SISTER DAUGHTER SON Family history: Breast disease DAUGHTER Family history: Cardiovascular disease 19 FATHER Family history: Diabetes mellitus 19 FATHER G8 BROTHER G8 SISTER Family history: Hypertension 19 FATHER 19 MOTHER G8 BROTHER G8 BROTHER G8 SISTER G8 SISTER DAUGHTER SON Family history: Thyroid disorder DAUGHTER Heart disease 19 FATHER 19 MOTHER G8 BROTHER Hypercholesterolemia 19 FATHER 19 MOTHER G8 BROTHER G8 BROTHER G8 SISTER Myocardial infarction 19 FATHER 19 MOTHER G8 BROTHER No Family History of: Abdominal aortic aneurysm Greenup's disease Alcoholism Aphasia Cancer of colon Chest pain Congenital heart disease Cystic fibrosis Dementia Dysphagia Family history: Allergy Family history: Alzheimer's disease Family history: Asthma Family history: Coronary thrombosis Family history: Gastrointestinal disease Family history: Glaucoma Family history: Osteoporosis Headache Hearing loss Hereditary disease History of - anemia History of - disorder History of - respiratory disease History of drug abuse Human immunodeficiency virus (HIV) seropositivity Infertile Kidney disease Malignant neoplasm of lung Parkinson's disease Prostate cancer Psychotic disorder Seizure disorder Stroke Tuberculosis Visual impairment Physical Exam Vital Signs Vital Sign - Last 12Hours 04/22/17 21:34 Temp 97.1 Pulse 132 Resp 20 B/P (MAP) 141/108 (119) Pulse Ox 96 O2 Delivery Room Air Capillary Refill : Less Than 3 Seconds General Appearance: No Apparent Distress, WD/WN HEENT: PERRL/EOMI, Pharynx Normal Neck: Full Range of Motion, Non Tender, Supple Respiratory: Chest Non Tender, Lungs Clear, Normal Breath Sounds Cardiovascular: No Edema, No JVD, Normal Peripheral Pulses, Irregularly Irregular, Tachycardia Gastrointestinal: Non Tender, Soft Extremity: Normal Capillary Refill, Normal Inspection, Non Tender, No Calf Tenderness Neurologic/Psychiatric: Alert, Oriented x3, Normal Mood/Affect Skin: Normal Color, Warm/Dry Progress/Results/Core Measures Results/Orders Lab Results Laboratory Tests Test 04/22/17 21:20 Range/Units White Blood Count 6.6 4.3-11.0 10^3/uL Red Blood Count 4.75 4.35-5.85 10^6/uL Hemoglobin 13.8 13.3-17.7 G/DL Hematocrit 41 40-54 % Mean Corpuscular Volume 86 80-99 FL Mean Corpuscular Hemoglobin 29 25-34 PG Mean Corpuscular Hemoglobin Concent 34 32-36 G/DL Red Cell Distribution Width 14.6 H 10.0-14.5 % Platelet Count 254 130-400 10^3/uL Mean Platelet Volume 10.8 H 7.4-10.4 FL Neutrophils (%) (Auto) 59 42-75 % Lymphocytes (%) (Auto) 30 12-44 % Monocytes (%) (Auto) 8 0-12 % Eosinophils (%) (Auto) 2 0-10 % Basophils (%) (Auto) 1 0-10 % Neutrophils # (Auto) 3.9 1.8-7.8 X 10^3 Lymphocytes # (Auto) 2.0 1.0-4.0 X 10^3 Monocytes # (Auto) 0.5 0.0-1.0 X 10^3 Eosinophils # (Auto) 0.2 0.0-0.3 10^3/uL Basophils # (Auto) 0.0 0.0-0.1 10^3/uL Sodium Level 138 135-145 MMOL/L Potassium Level 4.5 3.6-5.0 MMOL/L Chloride Level 105 98-107 MMOL/L Carbon Dioxide Level 21 21-32 MMOL/L Anion Gap 12 5-14 MMOL/L Blood Urea Nitrogen 16 7-18 MG/DL Creatinine 1.42 H 0.60-1.30 MG/DL Estimat Glomerular Filtration Rate 49 BUN/Creatinine Ratio 11 Glucose Level 310 H 70-105 MG/DL Calcium Level 9.7 8.5-10.1 MG/DL Total Bilirubin 0.3 0.1-1.0 MG/DL Aspartate Amino Transf (AST/SGOT) 18 5-34 U/L Alanine Aminotransferase (ALT/SGPT) 19 0-55 U/L Alkaline Phosphatase 66 40-136 U/L Troponin I < 0.30 <0.30 NG/ML Total Protein 7.5 6.4-8.2 GM/DL Albumin 4.2 3.2-4.5 GM/DL Digoxin Level 0.46 L 0.80-2.00 NG/ML My Orders Orders - WENDY SARMIENTO Chest Pa/Lat (2 View) (04/22/17 22:01) Troponin I (04/22/17 22:01) Ekg Tracing (04/22/17 22:) Saline Lock/Iv-Start (04/22/17 22:) Monitor-Rhythm Ecg Trace Only (04/22/17 22:) Ns Iv 1000 Ml (Sodium Chloride 0.9%) (04/22/17 22:) Digoxin (04/22/17 22:) Metoprolol Tartrate (Ir) Tab (Lopressor (04/22/17 22:15) Cbc With Automated Diff (04/22/17 22:38) Comprehensive Metabolic Panel (04/22/17 22:38) Medications Given in ED Current Medications Medications Dose Ordered Sig/Alka Route Start Time Stop Time Status Last Admin Dose Admin Metoprolol Tartrate 50 mg ONCE ONCE PO 04/22/17 22:15 04/22/17 22:16 DC 04/22/17 22:25 50 MG Sodium Chloride 1,000 ml @ 0 mls/hr Q0M ONCE IV 04/22/17 22:01 04/22/17 22:05 DC 04/22/17 22:25 0 MLS/HR Vital Signs/I&O Vital Sign - Last 12Hours 04/22/17 04/22/17 21:34 22:41 Temp 97.1 Pulse 132 92 Resp 20 21 B/P (MAP) 141/108 (119) 138/83 (101) Pulse Ox 96 97 O2 Delivery Room Air Room Air Intake and Output 04/23/17 00:00 Intake Total 1000 ml Balance 1000 ml Blood Pressure Mean: 119 Progress Note #1: Time: 22:35 Progress Note Patient is asymptomatic and not in any distress at probably be treated by orals. We'll check his digoxin level check a chest x-ray and a troponin just to make sure there is not a occult issues going on that could be pushing him into A. fib with RVR. We'll give him some fluids IV. Probably initially give him a larger dose of 50 mg metoprolol by mouth. Progress Note #2: Time: 23:37 Progress Note After the 50 mg of metoprolol and liter fluids the patient's back in sinus rhythm with a heart rate of 80s. He is also noted to be low on his digoxin level. 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 Stiles outpatient. ECG Initial ECG Impression Date: Apr 22, 2017 Initial ECG Impression Time: 22:01 Initial ECG Rate: 136 Initial ECG Rhythm: A Fib/Flutter Initial ECG Impression: Atrial Fibrillation w/RVR Initial ECG Comparisson: Unchanged Comment No significant T-wave elevation or depression. A. fib with RVR. Diagnostic Imaging Diagonstic Imaging: Xray Plain Films/CT/US/NM/MRI: chest (2v) Comments No acute cardiopulmonary processes noted. Reviewed: Reviewed by Me Departure Impression Impression: Primary Impression: Paroxysmal atrial fibrillation with RVR Additional Impressions: Asymptomatic hypertension Encounter for monitoring digoxin therapy Disposition: HOME, SELF-CARE Condition: Improved Departure-Patient Inst. Decision time for Depature: 23:39 Referrals: IRAJ HERRERA MD (PCP/Family) Primary Care Physician Patient Instructions: Digoxin Add. Discharge Instructions: Go home and resume your normal medications tomorrow morning. If you have high blood pressure like this again you might take an extra dose of metoprolol 1. Please call and follow-up with either your primary care physician or your die casting machine maintainer to manage your subtherapeutic digoxin levels. All discharge instructions reviewed with patient and/or family. Voiced understanding. Copy Copies To 1: IRAJ HERRERA MD Copies To 2: BISI STILES MD, TITUS J Apr 22, 2017 22:07
[2017-04-22] MEDS ORDERED: meTOprolol TARTRATE 50 MG (LOPRESSOR) TAB PO ONE (22:15)
[2017-04-22 22:41] VITALS: BP 138/83
[2017-04-22 23:35] LABS: BASOPHILS % (AUTO) 1 % (0-10); EOSINOPHILS # (AUTO) 0.2 10^3/uL (0.0-0.3); EOSINOPHILS % (AUTO) 2 % (0-10); LYMPHOCYTES % (AUTO) 30 % (12-44); MEAN CORPUSCULAR HEMOGLOBIN 29 PG (25-34); MEAN CORPUSCULAR HGB CONC 34 G/DL (32-36); MEAN CORPUSCULAR VOLUME 86 FL (80-99); MEAN PLATELET VOLUME 10.8 FL (7.4-10.4); MONOCYTES # (AUTO) 0.5 X 10^3 (0.0-1.0); MONOCYTES % (AUTO) 8 % (0-12); NEUTROPHILS # (AUTO) 3.9 X 10^3 (1.8-7.8); NEUTROPHILS % (AUTO) 59 % (42-75); PLATELET COUNT 254 10^3/uL (130-400); RED BLOOD COUNT 4.75 10^6/uL (4.35-5.85); RED CELL DISTRIBUTION WIDTH 14.6 % (10.0-14.5); WHITE BLOOD COUNT 6.6 10^3/uL (4.3-11.0)
[2017-04-22 23:49] LABS: ALBUMIN 4.2 GM/DL (3.2-4.5); BILIRUBIN,TOTAL 0.3 MG/DL (0.1-1.0); CALCIUM 9.7 MG/DL (8.5-10.1); CREATININE SERUM 1.42 MG/DL (0.60-1.30); POTASSIUM 4.5 MMOL/L (3.6-5.0); TOTAL PROTEIN 7.5 GM/DL (6.4-8.2)
[2017-04-23 01:21] VITALS: BP 151/94
--- NOTE | 2017-04-23 06:55 | Diagnostic Imaging Report ---
INDICATION: Weakness, nausea, diarrhea. FINDINGS: Loop recorder and post sternotomy changes stable. Lungs clear. The heart and vessels within normal limits. Air trapping and COPD chronic. IMPRESSION: Stable chronic findings. Dictated by: Dictated on workstation # [id number]
== END 2017-04-23 01:21 | disposition home or self-care (01) ==
LOC: EDUNIT# 21:18 → ER 21:20
DX: I48.0 Paroxysmal atrial fibrillation (principal); I10 Essential (primary) hypertension; G47.30 Sleep apnea, unspecified; J44.9 Chronic obstructive pulmonary disease, unspecified; I25.10 Atherosclerotic heart disease of native coronary artery without angina pectoris; I25.2 Old myocardial infarction; E78.00 Pure hypercholesterolemia, unspecified; I73.9 Peripheral vascular disease, unspecified; N40.0 Benign prostatic hyperplasia without lower urinary tract symptoms; K21.9 Gastro-esophageal reflux disease without esophagitis; E11.9 Type 2 diabetes mellitus without complications; F41.9 Anxiety disorder, unspecified; Z82.49 Family history of ischemic heart disease and other diseases of the circulatory system; Z79.899 Other long term (current) drug therapy; Z86.010 Personal history of colon polyps; Z87.19 Personal history of other diseases of the digestive system; Z87.891 Personal history of nicotine dependence; Z86.73 Personal history of transient ischemic attack (TIA), and cerebral infarction without residual deficits; Z95.5 Presence of coronary angioplasty implant and graft; Z79.01 Long term (current) use of anticoagulants; Z95.1 Presence of aortocoronary bypass graft; Z79.82 Long term (current) use of aspirin; Z79.4 Long term (current) use of insulin
CPT/HCPCS: 36415; 71020; 80053; 80162; 84484; 85025; 93005; 93041

== ENCOUNTER 2017-06-21 20:50 | Emergency (ER) | payer MEDICARE, MEDICAID ==
[~2017-06-21] VITALS: Ht 182.9 cm; Wt 87.5 kg
[~2017-06-21 20:50] MED LIST changes: +ACHD5005 PO; +ENAL5TAB; -HYDR-3812 PO; -HYDR-3816 PO; +PANT40TA3; +SITA100T12
[2017-06-21] MEDS ORDERED: APIX5TAB PO (21:33)
[2017-06-21] MEDS ORDERED: TAMS0.4C2 PO (21:33)
--- NOTE | 2017-06-21 21:58 | Diagnostic Imaging Report ---
PROCEDURE: CT head and CT cervical spine without contrast. TECHNIQUE: Multiple contiguous axial images were obtained through the brain and cervical spine without the use of intravenous contrast. Sagittal and coronal reformations through the cervical spine were then performed. INDICATION: Fall with head injury and neck pain CT head: Comparison is made to the study of 08/09/2016. Ventricles and sulci remain prominent. There is no evidence of hemorrhage. There is no abnormal mass effect or shift of midline structures. There is atherosclerotic calcination present within distal internal carotid arteries, bilaterally. The calvarium is intact and the visualized paranasal sinuses are clear. IMPRESSION: Senescent findings in the brain without CT evidence of acute intracranial abnormality. CT cervical spine: Comparison is made to study of 08/09/2016. Cervical spinal curvature and alignment are stable when compared to previous study. Extensive anterior bridging osteophytes extend throughout the cervical spine similar to the previous study. This does limit evaluation, however, no acute fracture or subluxation is identified. There is no evidence of paraspinous hematoma. There is mild bilateral carotid atherosclerotic calcification present. 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 There is no CT evidence of acute cervical spinal abnormality. Dictated by: Dictated on workstation # [id number]
--- NOTE | 2017-06-21 22:03 | ED Fall/Injury ---
General Chief Complaint: Trauma-Non Activation Stated Complaint: FALL - HIT HEAD ON BLOOD THINNERS Nursing Triage Note: PT REPORTS FALLING OVER LIMB AT HOME APPROX 2-3 HRS AGO. HIT RIGHT FOREHEAD AND NOW C/O NECK PAIN. C-COLLAR APPLIED AT 2121. PT AMB TO EXAM ROOM WITHOUT ASSISTANCE. Source: patient Exam Limitations: no limitations History of Present Illness Date Seen by Provider: Jun 21, 2017 Time Seen by Provider: 21:10 Initial Comments This 77-year-old gentleman presents to the emergency room after tripping over a tree limb in his yard and striking his right forehead and face. He complains of right posterior neck pain. He denies loss of consciousness or any symptoms of concussion. He is also concerned because he takes Eliquis. c-collar was staff during initial assessment. Allergies and Home Medications Allergies Coded Allergies: celecoxib (Unverified Allergy, Mild, TAKES ASPIRIN AT HOME, 12/21/14) diclofenac (Unverified Allergy, Mild, TAKES ASPIRIN AT HOME, 12/21/14) naproxen (Unverified Allergy, Mild, TAKES ASPIRIN AT HOME, 12/21/14) rosuvastatin (Unverified Allergy, Mild, 08/14/08) Penicillins (Verified Allergy, Unknown, 08/03/05) amoxicillin (Verified Allergy, Unknown, 08/03/05) fenofibrate (Unverified Allergy, Unknown, 06/05/16) morphine (Verified Allergy, Unknown, TAKES HYDROCODONE AT HOME, 07/17/14) simvastatin (Unverified Allergy, Unknown, 06/05/16) Uncoded Allergies: GEMIFIBOROZIL (Allergy, Unknown, 06/05/16) Home Medications Apixaban 5 Mg Tablet, 5 MG PO BID, (Reported) Apixaban 5 Mg Tablet, 5 MG PO BID, (Reported) Aspirin 81 Mg Tablet.dr, 81 MG PO DAILY, (Reported) Baclofen 10 Mg Tablet, 10 MG PO TID PRN for MUSCLE SPASMS, (Reported) Baclofen 20 Mg Tablet, 20 MG PO TID PRN for SPASMS, #12 Ref 0 Prescribed by: JENN WADE on 03/18/171916 Cilostazol 100 Mg Tablet, 100 MG PO BID, (Reported) Digoxin 125 Mcg Tablet, 125 MCG PO DAILY, (Reported) Docusate Sodium 100 Mg Capsule, 100 MG PO DAILY PRN for CONSTIPATION-1ST LINE, ( Reported) Dronedarone HCl 400 Mg Tablet, 400 MG PO BID, (Reported) Enalapril Maleate 5 Mg Tablet, (Reported) Fenofibrate,Micronized 134 Mg Capsule, 134 MG PO DAILY, (Reported) Gabapentin 300 Mg Capsule, 600 MG PO HS, (Reported) TAKES 2 (300 MG) CAPSULES Glipizide 10 Mg Tablet, 10 MG PO DAILY, (Reported) Insulin Detemir 100 Unit/1 Ml Insuln.pen, 25 UNIT SQ BID, (Reported) Metoclopramide HCl 5 Mg Tablet, 5 MG PO ACHS, #120 Ref 0 Prescribed by: JUSTINE TABARES on 12/16/16 1831 Metoprolol Tartrate 25 Mg Tablet, 12.5 MG PO BID, (Reported) TAKES 1/2 OF A (25 MG) TABLET Montelukast Sodium 10 Mg Tablet, 10 MG PO DAILY, (Reported) Nitroglycerin 0.4 Mg Tab.subl, 0.4 MG SL UD PRN for CHEST PAIN, (Reported) MAX OF 3 TABS IN 15 MINUTES / CALL 911 IF PAIN REMAINS AFTER 5 MINUTES Ondansetron 4 Mg Tab.rapdis, 4 MG PO Q6H PRN for NAUSEA/VOMITING, #8 Ref 0 Prescribed by: WENDY SARMIENTO on 01/14/17 0140 Pantoprazole Sodium 40 Mg Tablet., (Reported) Pentoxifylline 400 Mg Tablet.er, 400 MG PO BID, (Reported) Pravastatin Sodium 80 Mg Tablet, 80 MG PO HS, (Reported) Tamsulosin HCl 0.4 Mg Cap.er.24h, 0.4 MG PO DAILY, (Reported) Trazodone HCl 50 Mg Tablet, 50 MG PO HS, (Reported) Constitutional: no symptoms reported Eyes: No Symptoms Reported Ears, Nose, Mouth, Throat: no symptoms reported Respiratory: no symptoms reported Cardiovascular: no symptoms reported Gastrointestinal: no symptoms reported Genitourinary: no symptoms reported Musculoskeletal: no symptoms reported Skin: see HPI Psychiatric/Neurological: No Symptoms Reported Past Nobgits-Nknflq-Pjyezf Hx Patient Social History Alcohol Beverage of Choice: Beer Type Used: Cigarettes Former Smoker, Quit: Mar 01, 2000 2nd Hand Smoke Exposure: Yes Recent Foreign Travel: No Contact w/Someone Who Travel: No Recent Infectious Disease Expo: No Recent Hopitalizations: No Immunizations Up To Date Tetanus Booster (TDap): Less than 5yrs PED Vaccines UTD: No Date of Pneumonia Vaccine: Jun 14, 2015 Date of Influenza Vaccine: Feb 12, 2016 Seasonal Allergies Seasonal Allergies: Yes Surgeries History of Surgeries: Yes (GALL BLADDER, HERNIA, OPEN HEART, BACK) Surgeries: Abdominal, Cardiac, CABG, Coronary Stent, Eye Surgery, Gallbladder, Joint Replacement, Open Heart Surgery, Orthopedic, Vascular Surgery Respiratory History of Respiratory Disorde: Yes (CHRONIC DYSPNEA ON EXERTION) Respiratory Disorders: Sleep Apnea, COPD Currently Using CPAP: No Currently Using BIPAP: No Cardiovascular History of Cardiac Disorders: Yes Cardiac Disorders: Atrial Fibrillation, Coronary Artery Disease, Heart Attack, High Cholesterol, Hypertension, Peripheral Vascular Neurological History of Neurological Disord: Yes (POSSIBLE STROKE/ TIA) Neurological Disorders: Stroke, TIA Reproductive System Hx Reproductive Disorders: No Sexually Transmitted Disease: No HIV/AIDS: No Genitourinary History of Genitourinary Disor: Yes Genitourinary Disorders: Benign Prostatic Hyperpl, Prostate Problems, Renal Failure Gastrointestinal History of Gastrointestinal Di: Yes (GASTROPARESIS; GASTRITIS; DUODENITIS; COLON POLYPECTOMY) Gastrointestinal Disorders: Gastroesophageal Reflux, Pancreatitis, Polyps Musculoskeletal History of Musculoskeletal Dis: Yes (OLECRANON BURSITIS, CHRONIC NECK PAIN, DISH SYNDROME) Musculoskeletal Disorders: Degenerate Disk Disease, Arthritis, Chronic Back Pain Endocrine History of Endocrine Disorders: Yes Endocrine Disorders: Diabetes, Insulin dep HEENT History of HEENT Disorders: Yes HEENT Disorders: Cataract Loss of Vision: Denies Hearing Impairment: Denies Cancer History of Cancer: No Psychosocial History of Psychiatric Problem: Yes Behavioral Health Disorders: Anxiety Integumentary History of Skin or Integumenta: No Blood Transfusions History of Blood Disorders: No Adverse Reaction to a Blood Tr: No Family Medical History Significant Family History: No Pertinent Family Hx Family Medial History: Cancer G8 BROTHER Cataract 19 FATHER 19 MOTHER G8 BROTHER G8 BROTHER G8 SISTER Congestive heart failure 19 FATHER 19 MOTHER Family history: Arthritis 19 FATHER 19 MOTHER G8 BROTHER G8 BROTHER G8 SISTER G8 SISTER DAUGHTER SON Family history: Breast disease DAUGHTER Family history: Cardiovascular disease 19 FATHER Family history: Diabetes mellitus 19 FATHER G8 BROTHER G8 SISTER Family history: Hypertension 19 FATHER 19 MOTHER G8 BROTHER G8 BROTHER G8 SISTER G8 SISTER DAUGHTER SON Family history: Thyroid disorder DAUGHTER Heart disease 19 FATHER 19 MOTHER G8 BROTHER Hypercholesterolemia 19 FATHER 19 MOTHER G8 BROTHER G8 BROTHER G8 SISTER Myocardial infarction 19 FATHER 19 MOTHER G8 BROTHER No Family History of: Abdominal aortic aneurysm Robel's disease Alcoholism Aphasia Cancer of colon Chest pain Congenital heart disease Cystic fibrosis Dementia Dysphagia Family history: Allergy Family history: Alzheimer's disease Family history: Asthma Family history: Coronary thrombosis Family history: Gastrointestinal disease Family history: Glaucoma Family history: Osteoporosis Headache Hearing loss Hereditary disease History of - anemia History of - disorder History of - respiratory disease History of drug abuse Human immunodeficiency virus (HIV) seropositivity Infertile Kidney disease Malignant neoplasm of lung Parkinson's disease Prostate cancer Psychotic disorder Seizure disorder Stroke Tuberculosis Visual impairment Physical Exam Vital Signs Vital Signs - First Documented 06/21/17 21:22 Pulse 69 Resp 18 B/P (MAP) 170/95 (120) Pulse Ox 96 Capillary Refill : Less Than 3 Seconds General Appearance: WD/WN, no apparent distress HEENT: PERRL/EOMI, pharynx normal, other (Minor abrasions and contusions to the right brow and face) Neck: normal inspection, other (Minor tenderness on the right posterior neck) Cardiovascular: regular rate, rhythm, no edema, no murmur Respiratory: lungs clear, normal breath sounds, no respiratory distress, no accessory muscle use Gastrointestinal: normal bowel sounds, non tender, soft Extremities: normal inspection, no pedal edema 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, no motor/sensory deficits, alert, normal mood/affect, oriented x 3 Skin: normal color, warm/dry, other (Mild contusion/abrasion on the right brow and face) [place] Coma Score Best Eye Response: (4) Open Spontaneously Best Verbal Response: (5) Oriented Best Motor Response: (6) Obeys Commands [place] Total: 15 Progress/Results/Core Measures Results/Orders My Orders Orders - RODOLFO CUELLO MD Ct Head/Cervical Spine Wo (06/21/17 21:10) Vital Signs/I&O Vital Sign - Last 12Hours 06/21/17 06/21/17 21:22 22:50 Pulse 69 69 Resp 18 18 B/P (MAP) 170/95 (120) Pulse Ox 96 96 Blood Pressure Mean: 120 Progress Note : Progress Note c-collar was removed after review of imaging. Imaging revealed no acute injuries. Diagnostic Imaging Diagonstic Imaging: CT Plain Films/CT/US/NM/MRI: c-spine, head Comments CT head and cervical spine viewed by me and report reviewed. See report below: NAME: CASTRO PADRON [facility] REC#: [id number] PT STATUS: REG ER : 1940 PHYSICIAN: RODOLFO CUELLO MD ADMIT DATE: 06/21/17/ER Signed Date of Exam: 06/21/17 CT HEAD/CERVICAL SPINE WO PROCEDURE: CT head and CT cervical spine without contrast. TECHNIQUE: Multiple contiguous axial images were obtained through the brain and cervical spine without the use of intravenous contrast. Sagittal and coronal reformations through the cervical spine were then performed. INDICATION: Fall with head injury and neck pain CT head: Comparison is made to the study of 08/09/2016. Ventricles and sulci remain prominent. There is no evidence of hemorrhage. There is no abnormal mass effect or shift of midline structures. There is atherosclerotic calcination present within distal internal carotid arteries, bilaterally. The calvarium is intact and the visualized paranasal sinuses are clear. IMPRESSION: Senescent findings in the brain without CT evidence of acute intracranial abnormality. CT cervical spine: Comparison is made to study of 08/09/2016. Cervical spinal curvature and alignment are stable when compared to previous study. Extensive anterior bridging osteophytes extend throughout the cervical spine similar to the previous study. This does limit evaluation, however, no acute fracture or subluxation is identified. There is no evidence of paraspinous hematoma. There is mild bilateral carotid atherosclerotic calcification present. 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 There is no CT evidence of acute cervical spinal abnormality. Dictated by: Dictated on workstation # [id number] Dict: 06/21/172149 Trans: 06/21/172157 Interpreted by: PRINCESS CARRERA MD Electronically signed by: PRINCESS CARRERA MD 06/21/172157 Departure Impression Impression: Primary Impression: Fall on same level from tripping as cause of accidental injury Additional Impressions: Facial contusion Qualified Codes: S00.83XA - Contusion of other part of head, initial encounter Neck pain Anticoagulated Disposition: 01 HOME, SELF-CARE Condition: Improved Departure-Patient Inst. Decision time for Depature: 22:41 Referrals: IRAJ HERRERA MD (PCP/Family) Primary Care Physician Patient Instructions: Minor Head Injury Add. Discharge Instructions: If you have any worsening of symptoms or development of new symptoms such as confusion, changes in vision, headache, numbness or weakness of any part of the body, difficulty with speech, etc. please return to the emergency room immediately. All discharge instructions reviewed with patient and/or family. Voiced understanding. RODOLFO CUELLO MD Jun 21, 2017 22:03
[2017-06-21 22:50] VITALS: BP 170/95
--- OUTSIDE RECORDS SUMMARY | 2017-06-24 07:25 | XMS REPORT | Clinical Summary ---
Author Author [facility] Organization [facility] Address Unknown Phone Unavailable Care Team Providers Care Latex Dipper Name Role Phone Chance Ward PCP Source Comments Some departments are not documenting in the electronic medical record. If you do not see the information that you expected, contact Release of Information in the Health Information Management department at [phone] for further assistance in locating additional records.[facility] Allergies Not on File Current Medications [...] Problem Noted Date Coronary artery disease involving [place] coronary artery 10/24/2016 Overview: 2000 CABG x 4 02/17/12 PTCA BMS to vein graft to the OM 03/02/16 severe in-stent restenosis in the SVG to the OM with successful PCI, no residual stenosis, patent VG to RCA VG to the diag artery and AMANDA to the LAD occluded [place] vessels proximally, small vessel disease distally 09/25/[address] [facility] - severe karuk disease, patent graft to RCA, diagonal LAD, probably occluded graft to OM - felt to be reason for chest pain in stent severe restenosis in the SVG to OM with successfull PCI, no residual disease PVD (peripheral vascular disease) ([facility]) 10/24/2016 Overview: 03/02/16 peripheral angio: severe PAD with total occlusion of the post tibial and peroneal artery at the trifurcation, level reconstructed by collateral down at the ankle with occlusion at the ant tibial artery at the ankle level. Mod PAD on LLE down to the trifurcation Carotid artery disease ([facility]) 10/24/2016 Overview: 10/19/16 carotid US - mild stenosis, nonobstructive disease bilaterally PAF (paroxysmal atrial fibrillation) ([facility]) 10/24/2016 Overview: 03/24/16 LINQ implantation Essential hypertension [...]
== END 2017-06-21 22:50 | disposition home or self-care (01) ==
LOC: EDUNIT# 20:50 → ER 20:51
DX: S00.83XA Contusion of other part of head, initial encounter (principal); M54.2 Cervicalgia; J44.9 Chronic obstructive pulmonary disease, unspecified; G47.30 Sleep apnea, unspecified; I48.91 Unspecified atrial fibrillation; I25.10 Atherosclerotic heart disease of native coronary artery without angina pectoris; I25.2 Old myocardial infarction; I10 Essential (primary) hypertension; I73.9 Peripheral vascular disease, unspecified; N40.0 Benign prostatic hyperplasia without lower urinary tract symptoms; K21.9 Gastro-esophageal reflux disease without esophagitis; E11.9 Type 2 diabetes mellitus without complications; F41.9 Anxiety disorder, unspecified; Z82.49 Family history of ischemic heart disease and other diseases of the circulatory system; Z86.010 Personal history of colon polyps; Z87.19 Personal history of other diseases of the digestive system; Z88.0 Allergy status to penicillin; Z88.1 Allergy status to other antibiotic agents; Z86.73 Personal history of transient ischemic attack (TIA), and cerebral infarction without residual deficits; Z88.8 Allergy status to other drugs, medicaments and biological substances; Z88.5 Allergy status to narcotic agent; Z79.01 Long term (current) use of anticoagulants; Z79.52 Long term (current) use of systemic steroids; Z79.4 Long term (current) use of insulin; Z77.22 Contact with and (suspected) exposure to environmental tobacco smoke (acute) (chronic); Z95.5 Presence of coronary angioplasty implant and graft; Z95.1 Presence of aortocoronary bypass graft; W01.198A Fall on same level from slipping, tripping and stumbling with subsequent striking against other object, initial encounter
CPT/HCPCS: 70450; 72125; 99282

== ENCOUNTER 2017-07-15 12:42 | Emergency (ER) | payer MEDICARE, MEDICAID ==
[~2017-07-15] VITALS: Ht 182.9 cm; Wt 95.3 kg
--- OUTSIDE RECORDS SUMMARY | 2017-07-15 12:48 | XMS REPORT | Clinical Summary ---
Author Author [facility] Organization [facility] Address Unknown Phone Unavailable Care Team Providers Care Hr Consultant Name Role Phone Chance Ward PCP Source Comments Some departments are not documenting in the electronic medical record. If you do not see the information that you expected, contact Release of Information in the Health Information Management department at [phone] for further assistance in locating additional records.[facility] Allergies Not on File Current Medications [...] Problem Noted Date Coronary artery disease involving [place] coronary artery 10/24/2016 Overview: 2000 CABG x 4 02/17/12 PTCA BMS to vein graft to the OM 03/02/16 severe in-stent restenosis in the SVG to the OM with successful PCI, no residual stenosis, patent VG to RCA VG to the diag artery and AMANDA to the LAD occluded [place] vessels proximally, small vessel disease distally 09/25/16 [facility] - severe apache disease, patent graft to RCA, diagonal LAD, probably occluded graft to OM - felt to be reason for chest pain in stent severe restenosis in the SVG to OM with successfull PCI, no residual disease PVD (peripheral vascular disease) ([facility]) 10/24/2016 Overview: 03/02/16 peripheral angio: severe PAD with total occlusion of the post tibial and peroneal artery at the trifurcation, level reconstructed by collateral down at the ankle with occlusion at the ant tibial artery at the ankle level. Mod PAD on LLE down to the trifurcation Carotid artery disease ([facility]) 10/24/2016 Overview: 10/19/16 carotid US - mild stenosis, nonobstructive disease bilaterally PAF (paroxysmal atrial fibrillation) ([facility]) 10/24/2016 Overview: 03/24/16 LINQ implantation Essential [...] 2007 SCREENING PREVNAR/PNEUMOVAX (#1) 2007 INFLUENZA VACCINE 12/12/2017 Results Not on filefrom Last 3 Months
--- NOTE | 2017-07-15 13:49 | ED Cough/URI ---
General Chief Complaint: Cough/Cold/Flu Symptoms Stated Complaint: COLD SYMPTOMS/CHEST CONGESTION Nursing Triage Note: AMB TO ROOM REPORTS HAS HAD COUGH CONGESTION FOR ALMOST 2 MONTHS. WAS SEEEN BY CHERYL HYDE ON FRI STARTED ON 2 INHALERS VENTOLIN,BEVESP REPORTS NOT ANY BETTER. History of Present Illness Date Seen by Provider: Jul 15, 2017 Time Seen by Provider: 13:25 Initial Comments 77-year-old male reports several weeks of coughing and congestion. He was evaluated [address] Herrera and started on doxycycline, taking Bevespi as directed 2 puffs twice daily, and using Ventolin twice daily, 1 puff. Timing/Duration: intermittent Severity/Quality: productive cough Prior Episodes/Possible Cause: frequent episodes Associated Symptoms: cough, nasal congestion, nasal drainage, sinus infection Allergies and Home Medications Allergies Coded Allergies: celecoxib (Unverified Allergy, Mild, TAKES ASPIRIN AT HOME, 12/21/14) diclofenac (Unverified Allergy, Mild, TAKES ASPIRIN AT HOME, 12/21/14) naproxen (Unverified Allergy, Mild, TAKES ASPIRIN AT HOME, 12/21/14) rosuvastatin (Unverified Allergy, Mild, 08/14/08) Penicillins (Verified Allergy, Unknown, 08/03/05) amoxicillin (Verified Allergy, Unknown, 08/03/05) fenofibrate (Unverified Allergy, Unknown, 06/05/16) morphine (Verified Allergy, Unknown, TAKES HYDROCODONE AT HOME, 07/17/14) simvastatin (Unverified Allergy, Unknown, 06/05/16) Uncoded Allergies: GEMIFIBOROZIL (Allergy, Unknown, 06/05/16) Home Medications Apixaban 5 Mg Tablet, 5 MG PO BID, (Reported) Apixaban 5 Mg Tablet, 5 MG PO BID, (Reported) Aspirin 81 Mg Tablet., 81 MG PO DAILY, (Reported) Baclofen 10 Mg Tablet, 10 MG PO TID PRN for MUSCLE SPASMS, (Reported) Baclofen 20 Mg Tablet, 20 MG PO TID PRN for SPASMS Prescribed by: JENN WADE on 03/18/171916 Cilostazol 100 Mg Tablet, 100 MG PO BID, (Reported) Digoxin 125 Mcg Tablet, 125 MCG PO DAILY, (Reported) Docusate Sodium 100 Mg Capsule, 100 MG PO DAILY PRN for CONSTIPATION-1ST LINE, ( Reported) Dronedarone HCl 400 Mg Tablet, 400 MG PO BID, (Reported) Fenofibrate,Micronized 134 Mg Capsule, 134 MG PO DAILY, (Reported) Gabapentin 300 Mg Capsule, 600 MG PO HS, (Reported) TAKES 2 (300 MG) CAPSULES Glipizide 10 Mg Tablet, 10 MG PO DAILY, (Reported) Insulin Detemir 100 Unit/1 Ml Insuln.pen, 25 UNIT SQ BID, (Reported) Metoclopramide HCl 5 Mg Tablet, 5 MG PO ACHS Prescribed by: JUSTINE TABARES on 12/16/16 1831 Metoprolol Tartrate 25 Mg Tablet, 12.5 MG PO BID, (Reported) TAKES 1/2 OF A (25 MG) TABLET Montelukast Sodium 10 Mg Tablet, 10 MG PO DAILY, (Reported) Nitroglycerin 0.4 Mg Tab.subl, 0.4 MG SL UD PRN for CHEST PAIN, (Reported) MAX OF 3 TABS IN 15 MINUTES / CALL 911 IF PAIN REMAINS AFTER 5 MINUTES Ondansetron 4 Mg Tab.rapdis, 4 MG PO Q6H PRN for NAUSEA/VOMITING Prescribed by: WENDY SARMIENTO on 01/14/17 0140 Pentoxifylline 400 Mg Tablet.er, 400 MG PO BID, (Reported) Pravastatin Sodium 80 Mg Tablet, 80 MG PO HS, (Reported) Tamsulosin HCl 0.4 Mg Cap.er.24h, 0.4 MG PO DAILY, (Reported) Trazodone HCl 50 Mg Tablet, 50 MG PO HS, (Reported) Patient Home Medication List Home Medication List Reviewed: Yes Constitutional: no symptoms reported, see HPI EENTM: see HPI, no symptoms reported Respiratory: see HPI, cough, phlegm Cardiovascular: no symptoms reported, see HPI Gastrointestinal: no symptoms reported, see HPI Genitourinary: no symptoms reported, see HPI Musculoskeletal: no symptoms reported, see HPI Skin: no symptoms reported, see HPI All Other Systems Reviewed Negative Unless Noted: Yes Past Tjjgsoa-Hkussz-Txokco Hx Patient Social History Alcohol Use: Denies Use Number of Drinks Today: AA Alcohol Beverage of Choice: Beer Recreational Drug Use: No Smoking Status: Former Smoker Type Used: Cigarettes Former Smoker, Quit: Mar 01, 2000 2nd Hand Smoke Exposure: Yes Recent Foreign Travel: No Contact w/Someone Who Travel: No Recent Infectious Disease Expo: No Recent Hopitalizations: No Immunizations Up To Date Tetanus Booster (TDap): Less than 5yrs PED Vaccines UTD: No Date of Pneumonia Vaccine: Jun 14, 2015 Date of Influenza Vaccine: Feb 12, 2016 Seasonal Allergies Seasonal Allergies: Yes Surgeries History of Surgeries: Yes (GALL BLADDER, HERNIA, OPEN HEART, BACK) Surgeries: Abdominal, Cardiac, CABG, Coronary Stent, Eye Surgery, Gallbladder, Joint Replacement, Open Heart Surgery, Orthopedic, Vascular Surgery Respiratory History of Respiratory Disorde: Yes (CHRONIC DYSPNEA ON EXERTION) Respiratory Disorders: Sleep Apnea, COPD Currently Using CPAP: No Currently Using BIPAP: No Cardiovascular History of Cardiac Disorders: Yes Cardiac Disorders: Atrial Fibrillation, Coronary Artery Disease, Heart Attack, High Cholesterol, Hypertension, Peripheral Vascular Neurological History of Neurological Disord: Yes (POSSIBLE STROKE/ TIA) Neurological Disorders: Stroke, TIA Reproductive System Hx Reproductive Disorders: No Sexually Transmitted Disease: No HIV/AIDS: No Genitourinary History of Genitourinary Disor: Yes Genitourinary Disorders: Benign Prostatic Hyperpl, Prostate Problems, Renal Failure Gastrointestinal History of Gastrointestinal Di: Yes (GASTROPARESIS; GASTRITIS; DUODENITIS; COLON POLYPECTOMY) Gastrointestinal Disorders: Gastroesophageal Reflux, Pancreatitis, Polyps Musculoskeletal History of Musculoskeletal Dis: Yes (OLECRANON BURSITIS, CHRONIC NECK PAIN, DISH SYNDROME) Musculoskeletal Disorders: Degenerate Disk Disease, Arthritis, Chronic Back Pain Endocrine History of Endocrine Disorders: Yes Endocrine Disorders: Diabetes, Insulin dep HEENT History of HEENT Disorders: Yes HEENT Disorders: Cataract Loss of Vision: Denies Hearing Impairment: Denies Cancer History of Cancer: No Psychosocial History of Psychiatric Problem: Yes Behavioral Health Disorders: Anxiety Integumentary History of Skin or Integumenta: No Blood Transfusions History of Blood Disorders: No Adverse Reaction to a Blood Tr: No Reviewed Nursing Assessment Reviewed/Agree w Nursing PMH: Yes Family Medical History Significant Family History: No Pertinent Family Hx Family Medial History: Cancer G8 BROTHER Cataract 19 FATHER 19 MOTHER G8 BROTHER G8 BROTHER G8 SISTER Congestive heart failure 19 FATHER 19 MOTHER Family history: Arthritis 19 FATHER 19 MOTHER G8 BROTHER G8 BROTHER G8 SISTER G8 SISTER DAUGHTER SON Family history: Breast disease DAUGHTER Family history: Cardiovascular disease 19 FATHER Family history: Diabetes mellitus 19 FATHER G8 BROTHER G8 SISTER Family history: Hypertension 19 FATHER 19 MOTHER G8 BROTHER G8 BROTHER G8 SISTER G8 SISTER DAUGHTER SON Family history: Thyroid disorder DAUGHTER Heart disease 19 FATHER 19 MOTHER G8 BROTHER Hypercholesterolemia 19 FATHER 19 MOTHER G8 BROTHER G8 BROTHER G8 SISTER Myocardial infarction 19 FATHER 19 MOTHER G8 BROTHER No Family History of: Abdominal aortic aneurysm Robel's disease Alcoholism Aphasia Cancer of colon Chest pain Congenital heart disease Cystic fibrosis Dementia Dysphagia Family history: Allergy Family history: Alzheimer's disease Family history: Asthma Family history: Coronary thrombosis Family history: Gastrointestinal disease Family history: Glaucoma Family history: Osteoporosis Headache Hearing loss Hereditary disease History of - anemia History of - disorder History of - respiratory disease History of drug abuse Human immunodeficiency virus (HIV) seropositivity Infertile Kidney disease Malignant neoplasm of lung Parkinson's disease Prostate cancer Psychotic disorder Seizure disorder Stroke Tuberculosis Visual impairment Physical Exam Vital Signs Vital Signs - First Documented 07/15/17 12:47 Temp 98.0 Pulse 48 Resp 18 B/P (MAP) 148/75 (99) Pulse Ox 98 O2 Delivery Room Air Capillary Refill : Less Than 3 Seconds General Appearance: WD/WN, no apparent distress Eyes: Bilateral Eye Normal Inspection, Bilateral Eye PERRL, Bilateral Eye EOMI HEENT: PERRL/EOMI, normal ENT inspection, TMs normal, pharynx normal Neck: non-tender, full range of motion, supple, normal inspection Respiratory: chest non-tender, lungs clear, normal breath sounds Cardiovascular: normal peripheral pulses, regular rate, rhythm Gastrointestinal: normal bowel sounds, non tender, soft Extremities: normal range of motion, non-tender, normal inspection, no calf tenderness, normal capillary refill, pedal edema (1+) Neurologic/Psychiatric: no motor/sensory deficits, alert, normal mood/affect, oriented x 3 Skin: normal color, warm/dry, other (skin turgor less than 2 seconds) Progress/Results/Core Measures Suspected Sepsis Recent Fever Within 48 Hours: No Infection Criteria Present: None New/Unexplained Altered Menta: No Sepsis Screen: No Definite Risk Sepsis Diagnosis: SIRS Temperature:98.0 Pulse: 48 Respiratory Rate: 18 Blood Pressure 148 /75 Mean: 99 Results/Orders My Orders Orders - MARY MENDEZ Chest Pa/Lat (2 View) (07/15/17 13:35) Vital Signs/I&O Vital Sign - Last 12Hours 07/15/17 07/15/17 12:47 14:29 Temp 98.0 98.0 Pulse 48 48 Resp 18 18 B/P (MAP) 148/75 (99) 148/75 (99) Pulse Ox 98 98 O2 Delivery Room Air Capillary Refill : Less Than 3 Seconds Blood Pressure Mean: 99 Diagnostic Imaging Diagonstic Imaging: Xray Plain Films/CT/US/NM/MRI: chest Comments NAME: CASTRO PADRON [facility] REC#: [id number] PT STATUS: REG ER : 1940 PHYSICIAN: MARY MENDEZ ADMIT DATE: 07/15/17/ER Draft Date of Exam:07/15/17 CHEST PA/LAT (2 VIEW) INDICATION: Productive cough. Chest pain and wheezing. COMPARISON: 04/22/2017. FINDINGS: PA and lateral chest shows mild obstructive pulmonary disease. There are no acute infiltrates. Heart is not enlarged. No pulmonary edema. No hilar adenopathy. No pneumothorax or pleural effusion. Median sternotomy changes are noted. IMPRESSION: 1. Postoperative residue without acute changes. 2. Obstructive interstitial lung disease. Dictated on workstation # [id number] Dict: 07/15/17 1351 Trans: 07/15/17 1353 [id number] Interpreted by: MARLA HENDERSON MD Electronically signed by: Departure Impression Impression: Primary Impression: Cough Additional Impression: COPD (chronic obstructive pulmonary disease) Qualified Codes: J41.0 - Simple chronic bronchitis Disposition: 01 HOME, SELF-CARE Condition: Stable Departure-Patient Inst. Decision time for Depature: 14:15 Referrals: IRAJ HERRERA MD (PCP/Family) Primary Care Physician Patient Instructions: Cough, Adult (DC), Exacerbation of COPD (DC) Add. Discharge Instructions: Increase water intake. Continue to use the new inhalers, Bevespi 2 puffs twice daily. Ventolin 2 puffs , 5 min between puffs, every 4 hours. Use cool mist vaporizer in the bedroom. Follow-up with Dr. Herrera if symptoms are not improving in 2-3 days. Return to emergency department for shortness of breath, fever greater than 101 , new problems or concerns. All discharge instructions reviewed with patient and/or family. Voiced understanding. Copy Copies To 1: IRAJ HERRERA MD, AMY ARNP Jul 15, 2017 13:49
--- NOTE | 2017-07-15 13:54 | Diagnostic Imaging Report ---
INDICATION: Productive cough. Chest pain and wheezing. COMPARISON: 04/22/2017. FINDINGS: PA and lateral chest shows mild obstructive pulmonary disease. There are no acute infiltrates. Heart is not enlarged. No pulmonary edema. No hilar adenopathy. No pneumothorax or pleural effusion. Median sternotomy changes are noted. IMPRESSION: 1. Postoperative residue without acute changes. 2. Obstructive interstitial lung disease. Dictated by: Dictated on workstation # [id number]
[2017-07-15 14:29] VITALS: BP 148/75
== END 2017-07-15 14:25 | disposition home or self-care (01) ==
LOC: EDUNIT# 12:42 → ER 12:44
DX: J44.9 Chronic obstructive pulmonary disease, unspecified (principal); G47.30 Sleep apnea, unspecified; I48.91 Unspecified atrial fibrillation; I25.10 Atherosclerotic heart disease of native coronary artery without angina pectoris; I25.2 Old myocardial infarction; E78.00 Pure hypercholesterolemia, unspecified; I10 Essential (primary) hypertension; E11.59 Type 2 diabetes mellitus with other circulatory complications; I73.9 Peripheral vascular disease, unspecified; K21.9 Gastro-esophageal reflux disease without esophagitis; F41.9 Anxiety disorder, unspecified; Z82.49 Family history of ischemic heart disease and other diseases of the circulatory system; Z86.010 Personal history of colon polyps; Z86.73 Personal history of transient ischemic attack (TIA), and cerebral infarction without residual deficits; Z88.0 Allergy status to penicillin; Z88.5 Allergy status to narcotic agent; Z88.1 Allergy status to other antibiotic agents; Z88.8 Allergy status to other drugs, medicaments and biological substances; Z79.01 Long term (current) use of anticoagulants; Z79.52 Long term (current) use of systemic steroids; Z79.4 Long term (current) use of insulin; Z87.891 Personal history of nicotine dependence; Z87.19 Personal history of other diseases of the digestive system; Z95.1 Presence of aortocoronary bypass graft; Z95.5 Presence of coronary angioplasty implant and graft
CPT/HCPCS: 71046

== ENCOUNTER 2017-07-19 03:45 | Emergency (ER) | payer MEDICARE, MEDICAID ==
[~2017-07-19] VITALS: Ht 182.9 cm; Wt 83.9 kg
--- OUTSIDE RECORDS SUMMARY | 2017-07-19 03:51 | XMS REPORT | Clinical Summary ---
Author Author [facility] Organization [facility] Address Unknown Phone Unavailable Care Team Providers Care Rag Washer Name Role Phone Chance Ward PCP Source Comments Some departments are not documenting in the electronic medical record. If you do not see the information that you expected, contact Release of Information in the Health Information Management department at [phone] for further assistance in locating additional records.[facility] Allergies Not on File Current [...] Problem Noted Date Coronary artery disease involving duckwater coronary artery 10/24/2016 Overview: 2000 CABG x 4 02/17/12 PTCA BMS to vein graft to the OM 03/02/16 severe in-stent restenosis in the SVG to the OM with successful PCI, no residual stenosis, patent VG to RCA VG to the diag artery and AMANDA to the LAD occluded duckwater vessels proximally, small vessel disease distally 09/25/16 [facility] - severe duckwater disease, patent graft to RCA, diagonal LAD, probably occluded graft to OM - felt to be reason for chest pain in stent severe restenosis in the SVG to OM with successfull PCI, no residual disease PVD (peripheral vascular disease) ([facility]) 10/24/2016 Overview: 03/02/16 peripheral angio: severe PAD with total occlusion of the post tibial and peroneal artery at the trifurcation, level reconstructed by collateral down at the ankle with occlusion at the ant tibial artery at the ankle level. Mod PAD on LLE down to the trifurcation Carotid artery disease ([facility]) 10/24/2016 Overview: 10/19/16 carotid US - mild stenosis, nonobstructive disease bilaterally PAF (paroxysmal atrial fibrillation) ([facility]) 10/24/2016 Overview: 03/24/16 LINQ implantation Essential hypertension [...]
[2017-07-19 04:03] LABS: BASOPHILS % (AUTO) 1 % (0-10); EOSINOPHILS # (AUTO) 0.1 10^3/uL (0.0-0.3); EOSINOPHILS % (AUTO) 2 % (0-10); HEMATOCRIT 33 % (40-54); HEMOGLOBIN 10.7 G/DL (13.3-17.7); LYMPHOCYTES # (AUTO) 1.9 X 10^3 (1.0-4.0); LYMPHOCYTES % (AUTO) 30 % (12-44); MEAN CORPUSCULAR HEMOGLOBIN 27 PG (25-34); MEAN CORPUSCULAR HGB CONC 32 G/DL (32-36); MEAN CORPUSCULAR VOLUME 85 FL (80-99); MEAN PLATELET VOLUME 10.8 FL (7.4-10.4); MONOCYTES # (AUTO) 0.6 X 10^3 (0.0-1.0); MONOCYTES % (AUTO) 9 % (0-12); NEUTROPHILS # (AUTO) 3.6 X 10^3 (1.8-7.8); NEUTROPHILS % (AUTO) 58 % (42-75); PLATELET COUNT 279 10^3/uL (130-400); RED BLOOD COUNT 3.91 10^6/uL (4.35-5.85); WHITE BLOOD COUNT 6.2 10^3/uL (4.3-11.0)
[2017-07-19 04:07] LABS: INR 1.2 (0.8-1.4); PROTHROMBIN TIME PATIENT 15.6 SEC (12.2-14.7)
[2017-07-19 04:27] LABS: ALANINE AMINOTRANSFERASE 16 U/L (0-55); ALBUMIN 3.9 GM/DL (3.2-4.5); ALKALINE PHOSPHATASE 53 U/L (40-136); AMYLASE 70 U/L (25-125); BILIRUBIN,TOTAL 0.3 MG/DL (0.1-1.0); BUN/CREATININE RATIO 11; CALCIUM 9.6 MG/DL (8.5-10.1); CARBON DIOXIDE 26 MMOL/L (21-32); CHLORIDE 102 MMOL/L (98-107); CREATINE KINASE 188 U/L (30-200); CREATININE SERUM 1.87 MG/DL (0.60-1.30); GFR ESTIMATED 35; GLUCOSE 252 MG/DL (70-105); LIPASE 87 U/L (8-78); MAGNESIUM 2.4 MG/DL (1.8-2.4); POTASSIUM 3.9 MMOL/L (3.6-5.0); SODIUM 138 MMOL/L (135-145)
[2017-07-19 04:34] LABS: CREATINE KINASE MB 1.2 NG/ML (<6.6); DIGOXIN 0.43 NG/ML (0.80-2.00)
[2017-07-19] MEDS ORDERED: morphine INJ 10 MG/ML 1ML (SYR OR VIAL) IVP STA (04:51)
--- NOTE | 2017-07-19 05:05 | ED Chest Pain ---
General Chief Complaint: Chest Pain Stated Complaint: CP Nursing Triage Note: pt reports he was awakened with chest pain at 0145. denies other symptoms. he took 2 nitro at home with no relief. he was given asa 324mg et nitro x 1 by ems. Nursing Sepsis Screen: No Definite Risk Source: patient, EMS, old records History of Present Illness Date Seen by Provider: Jul 19, 2017 Time Seen by Provider: 03:40 Initial Comments PT ARRIVES VIA EMS FROM HOME. PT STATES HE WOKE UP WITH CHEST PAIN AT 0145 THIS AM STATES PAIN WAS 10/10 AND IS IN CENTER OF CHEST PT TOOK NTG X 2 AT HOME WITHOUT RELIEF EMS GAVE NTG X 1, WHICH PT REPORTED CAUSED INCREASE IN CHEST PAIN NTG ALSO DROPPED BP TO 94/66. INITIAL VITALS FOR EMS WERE 130/78, PULSE 68, O2 SATS 91-93 ON ROOM AIR-UP TO 97 % ON 2L/NC. GIVEN A FLUID BOLUS AFTER NTG. AND BP UP TO 111/57 PAIN IS WORSE WITH WALKING AND IMPROVED WITH REST PT HAS COPD AND DENIES ANY INCREASE IN CHRONIC SHORTNESS OF BREATH NO SWEATS NO NAUSEA/VOMITING PT HAS CHRONIC RIGHT LEG SWELLING POST-CABG AND IS NO DIFFERENT TODAY. NO CALF PAIN PT HAS HISTORY OF CAD AND HAS HAD 4 VESSEL CABG, PLUS STENTS X 2 AND ANGIOPLASTY. LAST CARDIAC CATH WAS 09/22/16-NO INTERVENTION, PATENT STENTS, AND PROBABLE OCCLUDED OBTUSE MARGINAL GRAFT. PT WITH MULTITUDE OF VISITS FOR VARIOUS COMPLAINTS 21 VISITS SINCE 05/30/16 LAST VISIT HERE WAS 07/15/17 FOR COUGH AND CONGESTION X 2 MONTHS. HAD REPORTED AT THAT TIME THAT HE HAD JUST SEEN DR. Kamari HERRERA ON 07/13/17 FOR SAME AND WAS PRESCRIBED DOXYCYCLINE ( PT DID NOT RELATE THIS INFORMATION TO ME, AND HAS NO COMPLAINTS OF RESPIRATORY ILLNESS TO ME ) PT ALSO SEEN BY DR. GARCIA YESTERDAY , AND ALSO DOES NOT RELATE THIS INFORMATION TO ME. LATER VERIFIES THAT PT WAS SEEN BY DR. GARCIA ON 07/17/17 AND ONLY MEDICATION CHANGE WAS THAT HIS METOPROLOL WAS INCREASED BACK UP TO 1 PILL BID, HE HAD PREVIOUSLY BEEN ON ( HAD BEEN DECREASED TO 1/2 PILL BID AT SOME POINT- -THIS MEDICATION HAS BEEN ADJUSTED UP AND DOWN SEVERAL TIMES) PCP: DR. Kamari HERRERA NEUROLOGY PHYSICIAN: DR. GARCIA Allergies and Home Medications Allergies Coded Allergies: celecoxib (Unverified Allergy, Mild, TAKES ASPIRIN AT HOME, 12/21/14) diclofenac (Unverified Allergy, Mild, TAKES ASPIRIN AT HOME, 12/21/14) naproxen (Unverified Allergy, Mild, TAKES ASPIRIN AT HOME, 12/21/14) rosuvastatin (Unverified Allergy, Mild, 08/14/08) Penicillins (Verified Allergy, Unknown, 08/03/05) amoxicillin (Verified Allergy, Unknown, 08/03/05) fenofibrate (Unverified Allergy, Unknown, 06/05/16) simvastatin (Unverified Allergy, Unknown, 06/05/16) Uncoded Allergies: GEMIFIBOROZIL (Allergy, Unknown, 06/05/16) Home Medications Apixaban 5 Mg Tablet, 5 MG PO BID, (Reported) Apixaban 5 Mg Tablet, 5 MG PO BID, (Reported) Aspirin 81 Mg Tablet.dr, 81 MG PO DAILY, (Reported) Baclofen 10 Mg Tablet, 10 MG PO TID PRN for MUSCLE SPASMS, (Reported) Cilostazol 100 Mg Tablet, 100 MG PO BID, (Reported) Digoxin 125 Mcg Tablet, 125 MCG PO DAILY, (Reported) Dronedarone HCl 400 Mg Tablet, 400 MG PO BID, (Reported) Fenofibrate,Micronized 134 Mg Capsule, 134 MG PO DAILY, (Reported) Gabapentin 300 Mg Capsule, 600 MG PO HS, (Reported) TAKES 2 (300 MG) CAPSULES Insulin Detemir 100 Unit/1 Ml Insuln.pen, 25 UNIT SQ BID, (Reported) Metoprolol Tartrate 25 Mg Tablet, 12.5 MG PO BID, (Reported) TAKES 1/2 OF A (25 MG) TABLET Montelukast Sodium 10 Mg Tablet, 10 MG PO DAILY, (Reported) Nitroglycerin 0.4 Mg Tab.subl, 0.4 MG SL UD PRN for CHEST PAIN, (Reported) MAX OF 3 TABS IN 15 MINUTES / CALL 911 IF PAIN REMAINS AFTER 5 MINUTES Pentoxifylline 400 Mg Tablet.er, 400 MG PO BID, (Reported) Pravastatin Sodium 80 Mg Tablet, 80 MG PO HS, (Reported) Tamsulosin HCl 0.4 Mg Cap.er.24h, 0.4 MG PO DAILY, (Reported) Trazodone HCl 50 Mg Tablet, 50 MG PO HS, (Reported) Patient Home Medication List Home Medication List Reviewed: Yes Review of Systems Constitutional: no symptoms reported Respiratory: See HPI Cardiovascular: See HPI, Chest Pain, Edema, Irregular Heart Rate, Denies Lightheadedness, Denies Palpitations, Denies Syncope Gastrointestinal: No Symptoms Reported Genitourinary: No Symptoms Reported Musculoskeletal: no symptoms reported Skin: no symptoms reported Psychiatric/Neurological: No Symptoms Reported Endocrine: No Symptoms Reported Hematologic/Lymphatic: No Symptoms Reported Past Ldgiszv-Vevkov-Nbliat Hx Patient Social History Alcohol Use: Occasionally Uses Number of Drinks Today: AA Alcohol Beverage of Choice: Beer Recreational Drug Use: No Smoking Status: Former Smoker (05/15 PPD--QUIT IN 1999) Type Used: Cigarettes Former Smoker, Quit: Mar 01, 2000 2nd Hand Smoke Exposure: Yes Recent Foreign Travel: No Contact w/Someone Who Travel: No Recent Infectious Disease Expo: No Recent Hopitalizations: No Immunizations Up To Date Tetanus Booster (TDap): Less than 5yrs PED Vaccines UTD: No Date of Pneumonia Vaccine: Jun 14, 2015 Date of Influenza Vaccine: Feb 12, 2016 Seasonal Allergies Seasonal Allergies: Yes Surgeries History of Surgeries: Yes ( HERNIA, BACK SURGERY; 4 VESSEL CABG; CARDIAC CATHS- -STENTS X 2. PLUS ANGIOPLASTY; LAST CATH 09/22/16--NO INTERVENTION; EGD'S/ COLOLONSCOPIES/POLYPECTOMY; CATARACTS) Surgeries: Abdominal, Cardiac, CABG, Coronary Stent, Eye Surgery, Gallbladder, Joint Replacement, Open Heart Surgery, Orthopedic, Vascular Surgery Respiratory History of Respiratory Disorde: Yes (CHRONIC DYSPNEA ON EXERTION) Respiratory Disorders: Sleep Apnea, COPD Currently Using CPAP: No Currently Using BIPAP: No Cardiovascular History of Cardiac Disorders: Yes (LAST CARDIAC CATH 09/22/16--NO INTERVENTION , PATENT STENTS, PROBABLE OCCLUDED GRAFT TO OBTUSE MARGINAL. CHRONIC MILD RIGHT LOWER LEG SWELLING POST CABG) Cardiac Disorders: Atrial Fibrillation, Chronic Edema/Swelling, Coronary Artery Disease, Heart Attack, High Cholesterol, Hypertension, Peripheral Vascular Neurological History of Neurological Disord: Yes (POSSIBLE STROKE/ TIA) Neurological Disorders: Stroke, TIA Reproductive System Hx Reproductive Disorders: No Sexually Transmitted Disease: No HIV/AIDS: No Genitourinary History of Genitourinary Disor: Yes (RENAL INSUFFICIENCY) Genitourinary Disorders: Benign Prostatic Hyperpl, Prostate Problems, Renal Failure Gastrointestinal History of Gastrointestinal Di: Yes (GASTROPARESIS; GASTRITIS; DUODENITIS; COLON POLYPECTOMY; S/P ROSA AND HERNIA REPAIR) Gastrointestinal Disorders: Abdominal Hernia, Gastroesophageal Reflux, Pancreatitis, Polyps, Gall Bladder Disease Musculoskeletal History of Musculoskeletal Dis: Yes (OLECRANON BURSITIS, CHRONIC NECK PAIN, DISH SYNDROME) Musculoskeletal Disorders: Degenerate Disk Disease, Arthritis, Chronic Back Pain Endocrine History of Endocrine Disorders: Yes Endocrine Disorders: Diabetes, Insulin dep HEENT History of HEENT Disorders: Yes HEENT Disorders: Cataract Loss of Vision: Denies Hearing Impairment: Denies Cancer History of Cancer: No Psychosocial History of Psychiatric Problem: Yes Behavioral Health Disorders: Anxiety Integumentary History of Skin or Integumenta: No Blood Transfusions History of Blood Disorders: No Adverse Reaction to a Blood Tr: No Family Medical History Family Medial History: Cancer G8 BROTHER Cataract 19 FATHER 19 MOTHER G8 BROTHER G8 BROTHER G8 SISTER Congestive heart failure 19 FATHER 19 MOTHER Family history: Arthritis 19 FATHER 19 MOTHER G8 BROTHER G8 BROTHER G8 SISTER G8 SISTER DAUGHTER SON Family history: Breast disease DAUGHTER Family history: Cardiovascular disease 19 FATHER Family history: Diabetes mellitus 19 FATHER G8 BROTHER G8 SISTER Family history: Hypertension 19 FATHER 19 MOTHER G8 BROTHER G8 BROTHER G8 SISTER G8 SISTER DAUGHTER SON Family history: Thyroid disorder DAUGHTER Heart disease 19 FATHER 19 MOTHER G8 BROTHER Hypercholesterolemia 19 FATHER 19 MOTHER G8 BROTHER G8 BROTHER G8 SISTER Myocardial infarction 19 FATHER 19 MOTHER G8 BROTHER No Family History of: Abdominal aortic aneurysm Pembina's disease Alcoholism Aphasia Cancer of colon Chest pain Congenital heart disease Cystic fibrosis Dementia Dysphagia Family history: Allergy Family history: Alzheimer's disease Family history: Asthma Family history: Coronary thrombosis Family history: Gastrointestinal disease Family history: Glaucoma Family history: Osteoporosis Headache Hearing loss Hereditary disease History of - anemia History of - disorder History of - respiratory disease History of drug abuse Human immunodeficiency virus (HIV) seropositivity Infertile Kidney disease Malignant neoplasm of lung Parkinson's disease Prostate cancer Psychotic disorder Seizure disorder Stroke Tuberculosis Visual impairment Physical Exam Vital Signs Vital Signs - First Documented 07/19/17 07/19/17 03:45 03:52 Temp 97.4 Pulse 67 Resp 16 B/P (MAP) 124/74 (91) Pulse Ox 97 O2 Delivery Room Air O2 Flow Rate 2.00 Capillary Refill : Less Than 3 Seconds General Appearance: No Apparent Distress, WD/WN HEENT: PERRL/EOMI, Other (EDENTULOUS. CONSTANT LIP LICKING AND MOUTH MOVEMENTS. DOES NOT APPEAR TO BE IN ANY DISCOMFORT OR DISTRESS WHATSOEVER) Neck: Full Range of Motion, Normal Inspection, Non Tender, Supple, No Carotid Bruit, No JVD Respiratory: Chest Non Tender, Normal Breath Sounds, No Accessory Muscle Use, No Respiratory Distress Cardiovascular: Regular Rate, Rhythm, No JVD, Normal Peripheral Pulses, Systolic Murmur (1-2/6) Gastrointestinal: Normal Bowel Sounds, No Organomegaly, No Pulsatile Mass, Non Tender, Soft Extremity: Normal Capillary Refill, Normal Range of Motion, Non Tender, No Calf Tenderness, Pedal Edema (TRACE EDEMA TO RIGHT ANKLE) Neurologic/Psychiatric: Alert, Oriented x3, No Motor/Sensory Deficits, Normal Mood/Affect, lining ironer II-XII Norm as Tested Skin: Normal Color, Warm/Dry, Tattoos/Piercings (TATTOOS) Progress/Results/Core Measures Results/Orders Lab Results Laboratory Tests Test 07/19/17 03:50 07/19/17 06:34 Range/Units White Blood Count 6.2 4.3-11.0 10^3/uL Red Blood Count 3.91 L 4.35-5.85 10^6/uL Hemoglobin 10.7 L 13.3-17.7 G/DL Hematocrit 33 L 40-54 % Mean Corpuscular Volume 85 80-99 FL Mean Corpuscular Hemoglobin 27 25-34 PG Mean Corpuscular Hemoglobin Concent 32 32-36 G/DL Red Cell Distribution Width 14.0 10.0-14.5 % Platelet Count 279 130-400 10^3/uL Mean Platelet Volume 10.8 H 7.4-10.4 FL Neutrophils (%) (Auto) 58 42-75 % Lymphocytes (%) (Auto) 30 12-44 % Monocytes (%) (Auto) 9 0-12 % Eosinophils (%) (Auto) 2 0-10 % Basophils (%) (Auto) 1 0-10 % Neutrophils # (Auto) 3.6 1.8-7.8 X 10^3 Lymphocytes # (Auto) 1.9 1.0-4.0 X 10^3 Monocytes # (Auto) 0.6 0.0-1.0 X 10^3 Eosinophils # (Auto) 0.1 0.0-0.3 10^3/uL Basophils # (Auto) 0.0 0.0-0.1 10^3/uL Prothrombin Time 15.6 H 12.2-14.7 SEC INR Comment 1.2 0.8-1.4 Activated Partial Thromboplast Time 31 24-35 SEC Sodium Level 138 135-145 MMOL/L Potassium Level 3.9 3.6-5.0 MMOL/L Chloride Level 102 98-107 MMOL/L Carbon Dioxide Level 26 21-32 MMOL/L Anion Gap 10 5-14 MMOL/L Blood Urea Nitrogen 20 H 7-18 MG/DL Creatinine 1.87 H 0.60-1.30 MG/DL Estimat Glomerular Filtration Rate 35 BUN/Creatinine Ratio 11 Glucose Level 252 H 70-105 MG/DL Calcium Level 9.6 8.5-10.1 MG/DL Magnesium Level 2.4 1.8-2.4 MG/DL Total Bilirubin 0.3 0.1-1.0 MG/DL Aspartate Amino Transf (AST/SGOT) 17 5-34 U/L Alanine Aminotransferase (ALT/SGPT) 16 0-55 U/L Alkaline Phosphatase 53 40-136 U/L Total Creatine Kinase 188 30-200 U/L Creatine Kinase MB 1.2 <6.6 NG/ML Troponin I < 0.30 < 0.30 <0.30 NG/ML B-Type Natriuretic Peptide 37.9 <100.0 PG/ML Total Protein 7.0 6.4-8.2 GM/DL Albumin 3.9 3.2-4.5 GM/DL Amylase Level 70 25-125 U/L Lipase 87 H 8-78 U/L Digoxin Level 0.43 L 0.80-2.00 NG/ML My Orders Orders - ROMAIN KNIGHT DO Amylase (07/19/17 03:56) Cbc With Automated Diff (07/19/17 03:56) Comprehensive Metabolic Panel (07/19/17 03:56) Creatine Kinase (07/19/17 03:56) Creatine Kinase Mb (07/19/17 03:56) Lipase (07/19/17 03:56) Partial Thromboplastin Time (07/19/17 03:56) Protime With Inr (07/19/17 03:56) Troponin I (07/19/17 03:56) Chest 1 View, Ap/Pa Only (07/19/17 03:56) O2 (07/19/17 03:56) Ekg Tracing (07/19/17 03:56) BNP (07/19/17 03:56) Monitor-Rhythm Ecg Trace Only (07/19/17 03:56) Digoxin (07/19/17 03:56) Magnesium (07/19/17 03:56) Morphine Injection (Morphine Injection (07/19/17 04:51) Troponin I (07/19/17 06:25) Ekg Tracing (07/19/17 06:37) Vital Signs/I&O Vital Sign - Last 12Hours 07/19/17 07/19/17 07/19/17 03:45 03:52 04:08 Temp 97.4 Pulse 67 Resp 16 B/P (MAP) 124/74 (91) Pulse Ox 97 97 O2 Delivery Room Air Nasal Cannula Nasal Cannula O2 Flow Rate 2.00 2.0 Blood Pressure Mean: 91 Progress Note : Progress Note PT SLEPT THROUGH MOST OF ER STAY AT 0500, PT STILL RATES PAIN 6/10, YET HAD TO WAKE PT UP FROM SOUND SLEEP. DOES NOT APPEAR TO BE IN ANY DISCOMFORT WHATSOEVER. WILL GIVE MORPHINE AND RE-ASSESS. PT BACK TO SLEEP AND SLEPT FOR REMAINDER OF ER STAY PAIN EASED AT DISMISSAL ECG Initial ECG Impression Date: Jul 19, 2017 Initial ECG Impression Time: 03:52 Initial ECG Rate: 66 Initial ECG Rhythm: Normal Sinus Initial ECG Impression: 1st Degree AV Block Initial ECG Comparisson: Unchanged EKG : EKG Time: 06:39 Rate: 65 Rhythm: Normal Sinus (PAC'S) ECG Comparisson: Unchanged ECG Impression: 1st Degree AV Block Diagnostic Imaging Comments CXR--NO ACUTE PROCESS, PENDING RADIOLOGIST REVIEW Reviewed: Reviewed by Me Departure Communication (Admissions) Progress Notes 8780--SPOKE WITH DR. Kamari HERRERA, HE IS VERY FAMILIAR WITH PT AND STATES THAT HE HAS AN APPOINTMENT TODAY, AND JUST SAW DR. GARCIA YESTERDAY. WILL REPEAT TROPONIN AT 3 HOURS, AND IF NEGATIVE WILL SEND HOME AND HE WILL SEE PT IN OFFICE TODAY. PT AND AGREEABLE TO THIS PLAN WELL Impression Impression: Primary Impression: Chest pain Disposition: 01 HOME, SELF-CARE Condition: Improved Departure-Patient Inst. Referrals: BISI GARCIA MD, CHAD C MD (PCP/Family) Primary Care Physician Patient Instructions: Chest Pain (DC), Heart Healthy Diet Add. Discharge Instructions: HOME, REST TAKE YOUR MEDICATIONS PRESCRIBED FOLLOW UP WITH DR. HERRERA TODAY FOR FURTHER CARE, RETURN TO ER IF WORSE All discharge instructions reviewed with patient and/or family. Voiced understanding. ROMAIN KNIGHT DO Jul 19, 2017 05:05
--- NOTE | 2017-07-19 05:17 | Diagnostic Imaging Report ---
INDICATION: Chest pain COMPARISON: 07/15/2017 FINDINGS: Single frontal view of the chest demonstrates normal heart size and pulmonary vascularity. The lungs are well aerated and clear. No large pleural effusion or pneumothorax is seen. The visualized osseous structures show no acute abnormalities. Sternotomy wires are noted. IMPRESSION: 1. No acute cardiopulmonary process. Dictated by: Dictated on workstation # [id number]
[2017-07-19 07:22] VITALS: BP 124/74
== END 2017-07-19 07:23 | disposition home or self-care (01) ==
LOC: EDUNIT# 03:45 → ER 03:47
DX: R07.89 Other chest pain (principal); G47.30 Sleep apnea, unspecified; I48.91 Unspecified atrial fibrillation; I25.10 Atherosclerotic heart disease of native coronary artery without angina pectoris; I25.2 Old myocardial infarction; E78.00 Pure hypercholesterolemia, unspecified; I10 Essential (primary) hypertension; I73.9 Peripheral vascular disease, unspecified; E11.9 Type 2 diabetes mellitus without complications; F41.9 Anxiety disorder, unspecified; J44.9 Chronic obstructive pulmonary disease, unspecified; K21.9 Gastro-esophageal reflux disease without esophagitis; Z86.010 Personal history of colon polyps; Z88.0 Allergy status to penicillin; Z82.49 Family history of ischemic heart disease and other diseases of the circulatory system; Z86.73 Personal history of transient ischemic attack (TIA), and cerebral infarction without residual deficits; Z88.8 Allergy status to other drugs, medicaments and biological substances; Z88.6 Allergy status to analgesic agent; Z88.1 Allergy status to other antibiotic agents; Z79.01 Long term (current) use of anticoagulants; Z79.82 Long term (current) use of aspirin; Z79.4 Long term (current) use of insulin; Z87.891 Personal history of nicotine dependence; Z87.19 Personal history of other diseases of the digestive system; Z95.1 Presence of aortocoronary bypass graft; Z95.5 Presence of coronary angioplasty implant and graft
CPT/HCPCS: 36415; 71045; 80053; 80162; 82150; 82550; 82553; 83690; 83735; 83880; 84484; 85025; 85610; 85730; 93005; 93041; 96374

== ENCOUNTER 2017-07-28 14:12 | Emergency (ER) | payer MEDICARE, MEDICAID ==
[~2017-07-28] VITALS: Ht 177.8 cm; Wt 77.1 kg
--- OUTSIDE RECORDS SUMMARY | 2017-07-28 14:17 | XMS REPORT | Clinical Summary ---
Author Author [facility] Organization [facility] Address Unknown Phone Unavailable Care Team Providers Care Tooth Inspector Name Role Phone Chance Ward PCP Source Comments Some departments are not documenting in the electronic medical record. If you do not see the information that you expected, contact Release of Information in the Health Information Management department at [phone] for further assistance in locating additional records.[facility] Allergies Not on File Current Medications [...] Problem Noted Date Coronary artery disease involving [place] coronary artery 10/24/2016 Overview: 2000 CABG x 4 02/17/12 PTCA BMS to vein graft to the OM 03/02/16 severe in-stent restenosis in the SVG to the OM with successful PCI, no residual stenosis, patent VG to RCA VG to the diag artery and AMANDA to the LAD occluded [place] vessels proximally, small vessel disease distally 09/25/16 [facility] - severe [place] disease, patent graft to RCA, diagonal LAD, probably occluded graft to OM - felt to be reason for chest pain in stent severe restenosis in the SVG to OM with successfull PCI, no residual disease PVD (peripheral vascular disease) ([facility]) 10/24/2016 Overview: 03/02/16 peripheral angio: severe PAD with total occlusion of the post tibial and peroneal artery at the trifurcation, level reconstructed by collateral down at the ankle with occlusion at the ant tibial artery at the ankle level. Mod PAD on LLE down to the trifurcation Carotid artery disease ([facility]) 10/24/2016 Overview: 10/19/16 carotid US - mild stenosis, nonobstructive disease bilaterally PAF (paroxysmal atrial fibrillation) ([facility]) 10/24/2016 Overview: 03/24/16 LINQ implantation [...] 2007 SCREENING PREVNAR/PNEUMOVAX (#1) 2007 INFLUENZA VACCINE 02/11/2018 Results Not on filefrom Last 3 Months
--- NOTE | 2017-07-28 14:52 | ED Back Pain ---
General Chief Complaint: Back Problems Stated Complaint: BACK PAIN Nursing Triage Note: ARRIVED VIA AMB TO ROOM 10. STATES HE STEPPED IN A HOLE YESTERDAY CAUSING LOW BACK PAIN THAT IS RADIATING UP THE RIGHT SIDE OF HIS NECK. Nursing Sepsis Screen: No Definite Risk Source of Information: Patient Exam Limitations: No Limitations History of Present Illness Date Seen by Provider: Jul 28, 2017 Time Seen by Provider: 14:51 Initial Comments To ER with reports of low back pain that radiates up the back into the right side of the base of his neck. He was fishing yesterday when he stepped in a hole. He did not actually fall but this did caused him to twist Location: Lumbar Spine, Paraspinous Muscles Timing/Duration: 1-2 Days Severity: Moderate Allergies and Home Medications Allergies Coded Allergies: celecoxib (Unverified Allergy, Mild, TAKES ASPIRIN AT HOME, 12/21/14) diclofenac (Unverified Allergy, Mild, TAKES ASPIRIN AT HOME, 12/21/14) naproxen (Unverified Allergy, Mild, TAKES ASPIRIN AT HOME, 12/21/14) rosuvastatin (Unverified Allergy, Mild, 08/14/08) Penicillins (Verified Allergy, Unknown, 08/03/05) amoxicillin (Verified Allergy, Unknown, 08/03/05) fenofibrate (Unverified Allergy, Unknown, 06/05/16) simvastatin (Unverified Allergy, Unknown, 06/05/16) Uncoded Allergies: GEMIFIBOROZIL (Allergy, Unknown, 06/05/16) Home Medications Apixaban 5 Mg Tablet, 5 MG PO BID, (Reported) Apixaban 5 Mg Tablet, 5 MG PO BID, (Reported) Aspirin 81 Mg Tablet.dr, 81 MG PO DAILY, (Reported) Baclofen 10 Mg Tablet, 10 MG PO TID PRN for MUSCLE SPASMS, (Reported) Cilostazol 100 Mg Tablet, 100 MG PO BID, (Reported) Cyclobenzaprine HCl 5 Mg Tablet, 5 MG PO TID PRN for PAIN-MODERATE TO SEVERE Prescribed by: LEONARDO SALGADO on 07/28/17 1500 Digoxin 125 Mcg Tablet, 125 MCG PO DAILY, (Reported) Dronedarone HCl 400 Mg Tablet, 400 MG PO BID, (Reported) Fenofibrate,Micronized 134 Mg Capsule, 134 MG PO DAILY, (Reported) Gabapentin 300 Mg Capsule, 600 MG PO HS, (Reported) TAKES 2 (300 MG) CAPSULES Insulin Detemir 100 Unit/1 Ml Insuln.pen, 25 UNIT SQ BID, (Reported) Metoprolol Tartrate 25 Mg Tablet, 12.5 MG PO BID, (Reported) TAKES 1/2 OF A (25 MG) TABLET Montelukast Sodium 10 Mg Tablet, 10 MG PO DAILY, (Reported) Nitroglycerin 0.4 Mg Tab.subl, 0.4 MG SL UD PRN for CHEST PAIN, (Reported) MAX OF 3 TABS IN 15 MINUTES / CALL 911 IF PAIN REMAINS AFTER 5 MINUTES Pentoxifylline 400 Mg Tablet.er, 400 MG PO BID, (Reported) Pravastatin Sodium 80 Mg Tablet, 80 MG PO HS, (Reported) Tamsulosin HCl 0.4 Mg Cap.er.24h, 0.4 MG PO DAILY, (Reported) Trazodone HCl 50 Mg Tablet, 50 MG PO HS, (Reported) Patient Home Medication List Home Medication List Reviewed: Yes Constitutional: see HPI EENTM: see HPI Respiratory: no symptoms reported Cardiovascular: no symptoms reported Genitourinary: no symptoms reported Musculoskeletal: see HPI, back pain Skin: no symptoms reported Psychiatric/Neurological: No Symptoms Reported Past [id number] Hx Patient Social History Alcohol Use: Occasionally Uses Number of Drinks Today: AA Alcohol Beverage of Choice: Beer Recreational Drug Use: No Type Used: Cigarettes Former Smoker, Quit: Mar 01, 2000 2nd Hand Smoke Exposure: Yes Recent Foreign Travel: No Contact w/Someone Who Travel: No Recent Infectious Disease Expo: No Recent Hopitalizations: No Immunizations Up To Date Tetanus Booster (TDap): Less than 5yrs PED Vaccines UTD: No Date of Pneumonia Vaccine: Jun 14, 2015 Date of Influenza Vaccine: Feb 12, 2016 Seasonal Allergies Seasonal Allergies: Yes Surgeries History of Surgeries: Yes Surgeries: Abdominal, Cardiac, CABG, Coronary Stent, Eye Surgery, Gallbladder, Joint Replacement, Open Heart Surgery, Orthopedic, Vascular Surgery Respiratory History of Respiratory Disorde: Yes (CHRONIC DYSPNEA ON EXERTION) Respiratory Disorders: Sleep Apnea, COPD Currently Using CPAP: No Currently Using BIPAP: No Cardiovascular History of Cardiac Disorders: Yes Cardiac Disorders: Atrial Fibrillation, Chronic Edema/Swelling, Coronary Artery Disease, Heart Attack, High Cholesterol, Hypertension, Peripheral Vascular Neurological History of Neurological Disord: Yes (POSSIBLE STROKE/ TIA) Neurological Disorders: Stroke, TIA Reproductive System Hx Reproductive Disorders: No Sexually Transmitted Disease: No HIV/AIDS: No Genitourinary History of Genitourinary Disor: Yes (RENAL INSUFFICIENCY) Genitourinary Disorders: Benign Prostatic Hyperpl, Prostate Problems, Renal Failure Gastrointestinal History of Gastrointestinal Di: Yes Gastrointestinal Disorders: Abdominal Hernia, Gastroesophageal Reflux, Pancreatitis, Polyps, Gall Bladder Disease Musculoskeletal History of Musculoskeletal Dis: Yes (OLECRANON BURSITIS, CHRONIC NECK PAIN, DISH SYNDROME) Musculoskeletal Disorders: Degenerate Disk Disease, Arthritis, Chronic Back Pain Endocrine History of Endocrine Disorders: Yes Endocrine Disorders: Diabetes, Insulin dep HEENT History of HEENT Disorders: Yes HEENT Disorders: Cataract Loss of Vision: Denies Hearing Impairment: Denies Cancer History of Cancer: No Psychosocial History of Psychiatric Problem: Yes Behavioral Health Disorders: Anxiety Integumentary History of Skin or Integumenta: No Blood Transfusions History of Blood Disorders: No Adverse Reaction to a Blood Tr: No Family Medical History Family Medial History: Cancer G8 BROTHER Cataract 19 FATHER 19 MOTHER G8 BROTHER G8 BROTHER G8 SISTER Congestive heart failure 19 FATHER 19 MOTHER Family history: Arthritis 19 FATHER 19 MOTHER G8 BROTHER G8 BROTHER G8 SISTER G8 SISTER DAUGHTER SON Family history: Breast disease DAUGHTER Family history: Cardiovascular disease 19 FATHER Family history: Diabetes mellitus 19 FATHER G8 BROTHER G8 SISTER Family history: Hypertension 19 FATHER 19 MOTHER G8 BROTHER G8 BROTHER G8 SISTER G8 SISTER DAUGHTER SON Family history: Thyroid disorder DAUGHTER Heart disease 19 FATHER 19 MOTHER G8 BROTHER Hypercholesterolemia 19 FATHER 19 MOTHER G8 BROTHER G8 BROTHER G8 SISTER Myocardial infarction 19 FATHER 19 MOTHER G8 BROTHER No Family History of: Abdominal aortic aneurysm Randall's disease Alcoholism Aphasia Cancer of colon Chest pain Congenital heart disease Cystic fibrosis Dementia Dysphagia Family history: Allergy Family history: Alzheimer's disease Family history: Asthma Family history: Coronary thrombosis Family history: Gastrointestinal disease Family history: Glaucoma Family history: Osteoporosis Headache Hearing loss Hereditary disease History of - anemia History of - disorder History of - respiratory disease History of drug abuse Human immunodeficiency virus (HIV) seropositivity Infertile Kidney disease Malignant neoplasm of lung Parkinson's disease Prostate cancer Psychotic disorder Seizure disorder Stroke Tuberculosis Visual impairment Physical Exam Vital Signs Vital Signs - First Documented 07/28/17 14:30 Temp 96.1 Pulse 59 Resp 18 B/P (MAP) 107/81 (90) Pulse Ox 96 Capillary Refill : Less Than 3 Seconds General Appearance: No Apparent Distress, WD/WN HEENT: PERRL/EOMI, TMs Normal Neck: Full Range of Motion, Normal Inspection Respiratory: No Accessory Muscle Use, No Respiratory Distress Gastrointestinal: Normal Bowel Sounds, Non Tender, Soft Extremity: Normal Capillary Refill, Normal Inspection Neurologic/Psychiatric: Alert, Oriented x3 Skin: Normal Color, Warm/Dry Progress/Results/Core Measures Results/Orders My Orders Orders - LEONARDO SALGADO APRN Orphenadrine Injection (Norflex Injectio (07/28/17 15:00) Lumbar Spine - 2-3 Views (07/28/17 14:46) Medications Given in ED Current Medications Medications Dose Ordered Sig/Alka Route Start Time Stop Time Status Last Admin Dose Admin Orphenadrine Citrate 60 mg ONCE ONCE IM 07/28/17 15:00 07/28/17 15:01 DC 07/28/17 14:56 60 MG Vital Signs/I&O Vital Sign - Last 12Hours 07/28/17 07/28/17 14:30 15:46 Temp 96.1 Pulse 59 78 Resp 18 18 B/P (MAP) 107/81 (90) 111/48 Pulse Ox 96 98 Blood Pressure Mean: 90 Departure Impression Impression: Primary Impression: Muscle strain Disposition: 01 HOME, SELF-CARE Condition: Stable Departure-Patient Inst. Decision time for Depature: 14:59 Referrals: IRAJ HERRERA MD (PCP/Family) Primary Care Physician Patient Instructions: Lumbar Muscle Strain (DC) Add. Discharge Instructions: 1. Use heat to your back being careful not to burn yourself. Return to the emergency room for worsening pain. Scripts Cyclobenzaprine HCl (Cyclobenzaprine HCl) 5 Mg Tablet 5 MG PO TID Y for PAIN-MODERATE TO SEVERE, #9 TAB Prov: LEONARDO SALGADO APRN 07/28/17 LEONARDO SALGADO APRN Jul 28, 2017 14:52
[2017-07-28] MEDS ORDERED: ORPHENADRINE 60 MG/2 ML (NORFLEX) AMP IM ONE (15:00)
[2017-07-28] MEDS ORDERED: CYCL5TAB PO (15:00)
--- NOTE | 2017-07-28 15:23 | Diagnostic Imaging Report ---
INDICATION: Back pain following a fall. The exam compared with study performed 03/12/2017. FINDINGS: A mild wedging anteriorly owing to mid to anterior third superior endplate concavity at the L1 level is identical in appearance to the previous, stable and chronic. L2-L5 maintain a normal stature and showed no acute or suspicious endplate irregularity. There is apparent laminectomy of the lower lumbar spine stable. There is a hypertrophic facet arthrosis most notably at the L4-L5 and L5-S1 level stable. Bulky endplate osteophytes anteriorly are present with disc space narrowing greatest at the L5-S1 level and the L1-L2 level stable. No acute-appearing abnormality and no appreciable change is found. There are aortoiliac atherosclerotic vascular calcifications chronic. IMPRESSION: Stable old L1 endplate compression. Stable spondylosis, facet arthrosis and postoperative sequelae. Stable atherosclerosis. No acute finding or change can be identified. Dictated by: Dictated on workstation # [id number]
[2017-07-28 15:46] VITALS: BP 111/48
== END 2017-07-28 15:46 | disposition home or self-care (01) ==
LOC: EDUNIT# 14:12 → ER 14:13
DX: S39.012A Strain of muscle, fascia and tendon of lower back, initial encounter (principal); J44.9 Chronic obstructive pulmonary disease, unspecified; G47.30 Sleep apnea, unspecified; I48.91 Unspecified atrial fibrillation; I25.2 Old myocardial infarction; E78.00 Pure hypercholesterolemia, unspecified; I25.10 Atherosclerotic heart disease of native coronary artery without angina pectoris; I10 Essential (primary) hypertension; E11.59 Type 2 diabetes mellitus with other circulatory complications; I73.9 Peripheral vascular disease, unspecified; F41.9 Anxiety disorder, unspecified; K21.9 Gastro-esophageal reflux disease without esophagitis; Z86.73 Personal history of transient ischemic attack (TIA), and cerebral infarction without residual deficits; Z82.49 Family history of ischemic heart disease and other diseases of the circulatory system; Z88.0 Allergy status to penicillin; Z87.19 Personal history of other diseases of the digestive system; Z88.1 Allergy status to other antibiotic agents; Z88.6 Allergy status to analgesic agent; Z88.8 Allergy status to other drugs, medicaments and biological substances; Z79.82 Long term (current) use of aspirin; Z79.01 Long term (current) use of anticoagulants; Z79.4 Long term (current) use of insulin; Z87.891 Personal history of nicotine dependence; Z95.1 Presence of aortocoronary bypass graft; Z95.5 Presence of coronary angioplasty implant and graft; X50.0XXA Overexertion from strenuous movement or load, initial encounter
CPT/HCPCS: 72100; 96372

== ENCOUNTER 2017-07-29 01:03 | Emergency (ER) | payer MEDICARE, MEDICAID ==
[~2017-07-29] VITALS: Ht 177.8 cm; Wt 77.4 kg
[~2017-07-29 01:03] MED LIST changes: +CYCL5TAB PO
--- OUTSIDE RECORDS SUMMARY | 2017-07-29 01:08 | XMS REPORT | Clinical Summary ---
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 If you do not see the information that you expected, contact Release of Information in the Health Information Management department at [phone] for further assistance in locating additional records.[facility] Allergies Not on File Current Medications [...] Problem Noted Date Coronary artery disease involving [place] coronary artery 10/24/2016 Overview: 2000 CABG x 4 02/17/12 PTCA BMS to vein graft to the OM 03/02/16 severe in-stent restenosis in the SVG to the OM with successful PCI, no residual stenosis, patent VG to RCA VG to the diag artery and AMANDA to the LAD occluded [place] vessels proximally, small vessel disease distally 09/25/16 [facility] - severe [place] disease, patent graft to RCA, diagonal LAD, probably occluded graft to OM - felt to be reason for chest pain in stent severe restenosis in the SVG to OM with successfull PCI, no residual disease PVD (peripheral vascular disease) ([facility]) 10/24/2016 Overview: 03/02/16 peripheral angio: severe PAD with total occlusion of the post tibial and peroneal artery at the trifurcation, level reconstructed by collateral down at the ankle with occlusion at the ant tibial artery at the ankle level. Mod PAD on LLE down to the trifurcation Carotid artery disease ([facility]) 10/24/2016 Overview: 10/19/16 carotid US - mild stenosis, nonobstructive disease bilaterally PAF (paroxysmal atrial fibrillation) ([facility]) 10/24/2016 Overview: 03/24/16 LINQ implantation [...]
[2017-07-29] MEDS ORDERED: NS IV 1000 ML 1,000 ML IV ONE ×2 (01:15→02:44)
[2017-07-29 01:26] LABS: BASOPHILS % (AUTO) 1 % (0-10); EOSINOPHILS # (AUTO) 0.1 10^3/uL (0.0-0.3); EOSINOPHILS % (AUTO) 2 % (0-10); HEMATOCRIT 30 % (40-54); HEMOGLOBIN 10.2 G/DL (13.3-17.7); LYMPHOCYTES % (AUTO) 28 % (12-44); MEAN CORPUSCULAR HEMOGLOBIN 27 PG (25-34); MEAN CORPUSCULAR HGB CONC 34 G/DL (32-36); MEAN CORPUSCULAR VOLUME 81 FL (80-99); MEAN PLATELET VOLUME 9.7 FL (7.4-10.4); MONOCYTES # (AUTO) 0.7 X 10^3 (0.0-1.0); MONOCYTES % (AUTO) 10 % (0-12); NEUTROPHILS # (AUTO) 4.1 X 10^3 (1.8-7.8); NEUTROPHILS % (AUTO) 59 % (42-75); PLATELET COUNT 245 10^3/uL (130-400); RED BLOOD COUNT 3.75 10^6/uL (4.35-5.85); RED CELL DISTRIBUTION WIDTH 14.1 % (10.0-14.5); WHITE BLOOD COUNT 6.9 10^3/uL (4.3-11.0)
--- NOTE | 2017-07-29 01:28 | ED General ---
General Chief Complaint: Cardiac/General Problems Stated Complaint: DIZZY Nursing Triage Note: PATIENT REPORTS HYPOTENSION Nursing Sepsis Screen: No Definite Risk Source of Information: Patient (VERY LIMITED HISTORIAN--HAS NO IDEA WHAT MEDICATIONS HE TAKES, WHAT HE TAKES THEM FOR, OR ANY OF HIS DIAGNOSES. ), EMS, Old Records History of Present Illness Date Seen by Provider: Jul 29, 2017 Time Seen by Provider: 01:03 Initial Comments PT ARRIVES VIA EMS FROM HOME PT STATES HE HAS BEEN DIZZY SINCE 1600 TODAY HAS BEEN CHECKING HIS BP MULTIPLE TIMES A DAY--STATES "DOCTOR TOLD ME TO" TOLD EMS THAT LOWEST BP WAS 80/40. EMS REPORT BP READINGS 98/59 UP TO 120 SYSTOLIC ACCUCHECK 165 FOR EMS PT THINKS HIS BLOOD SUGARS RUN 160-180 NO CHEST PAIN NO SHORTNESS OF BREATH NO SWEATS NO PALPITATIONS THIS IS A FREQUENT COMPLAINT FOR PT--HAS BEEN IN ER MULTIPLE TIMES FOR SAME PT STATES HE SAW DR. GARCIA 2 DAYS AGO 07/26/17 FOR ROUTINE EXAM DOES NOT KNOW IF MEDICATIONS WERE CHANGED OR NOT--THINKS HE IS ON A NEW MEDICATION, AND/OR HAD OTHER MEDICATIONS ADJUSTED UP AND DOWN, BUT HAS NO IDEA WHAT MEDICATIONS, OR HOW THEY WERE ADJUSTED PT STATES HE TOOK MORNING MEDICATIONS BUT HAS NOT TAKEN ANY EVENING / NIGHTTIME MEDICATIONS STATES HE HAD EGGS AND TOAST FOR BREAKFAST AND HAMBURGER FOR LUNCH, NO SUPPER. DRANK "1/2 GALLON" OF WATER TODAY PT WITH MULTITUDE OF VISITS--5 IN 2017, 23 SINCE MAY 2016-VARIOUS COMPLAINTS WAS IN ER THIS AFTER NOON AROUND 1500 FOR C/O BACK PAIN --TWISTED HIS BACK THE DAY BEFORE--GOT SHOT OF NORFLEX AND RX FOR FLEXERIL 5 MG--PT DOES NOT KNOW IF HE HAS TAKEN ANY OR NOT. ARRIVES LATER, SHE STATES THAT PT SAW DR. GARCIA OVER A WEEK AGO, AND SAW DR. CASTILLO THIS PAST WEEK--? SUSPECT VISIT WAS FOR HISTORY OF ATRIAL FIBRILLATION ? ALSO STATES PT DOES NOT DRINK VERY MUCH WATER, BUT DRINKS AT LEAST 2 POTS OF COFFEE A DAY, AND LITTLE ELSE TO DRINK PCP: DR. Kamari HERRERA CARDIOLOGY: DR. GARCIA Allergies and Home Medications Allergies Coded Allergies: celecoxib (Unverified Allergy, Mild, TAKES ASPIRIN AT HOME, 12/21/14) diclofenac (Unverified Allergy, Mild, TAKES ASPIRIN AT HOME, 12/21/14) naproxen (Unverified Allergy, Mild, TAKES ASPIRIN AT HOME, 12/21/14) rosuvastatin (Unverified Allergy, Mild, 08/14/08) Penicillins (Verified Allergy, Unknown, 08/03/05) amoxicillin (Verified Allergy, Unknown, 08/03/05) fenofibrate (Unverified Allergy, Unknown, 06/05/16) simvastatin (Unverified Allergy, Unknown, 06/05/16) Uncoded Allergies: GEMIFIBOROZIL (Allergy, Unknown, 06/05/16) Home Medications Apixaban 5 Mg Tablet, 5 MG PO BID, (Reported) Apixaban 5 Mg Tablet, 5 MG PO BID, (Reported) Aspirin 81 Mg Tablet.dr, 81 MG PO DAILY, (Reported) Baclofen 10 Mg Tablet, 10 MG PO TID PRN for MUSCLE SPASMS, (Reported) Cilostazol 100 Mg Tablet, 100 MG PO BID, (Reported) Cyclobenzaprine HCl 5 Mg Tablet, 5 MG PO TID PRN for PAIN-MODERATE TO SEVERE Prescribed by: LEONARDO SALGADO on 07/28/17 1500 Digoxin 125 Mcg Tablet, 125 MCG PO DAILY, (Reported) Dronedarone HCl 400 Mg Tablet, 400 MG PO BID, (Reported) Fenofibrate,Micronized 134 Mg Capsule, 134 MG PO DAILY, (Reported) Gabapentin 300 Mg Capsule, 600 MG PO HS, (Reported) TAKES 2 (300 MG) CAPSULES Insulin Detemir 100 Unit/1 Ml Insuln.pen, 25 UNIT SQ BID, (Reported) Metoprolol Tartrate 25 Mg Tablet, 12.5 MG PO BID, (Reported) TAKES 1/2 OF A (25 MG) TABLET Montelukast Sodium 10 Mg Tablet, 10 MG PO DAILY, (Reported) Nitroglycerin 0.4 Mg Tab.subl, 0.4 MG SL UD PRN for CHEST PAIN, (Reported) MAX OF 3 TABS IN 15 MINUTES / CALL 911 IF PAIN REMAINS AFTER 5 MINUTES Pentoxifylline 400 Mg Tablet.er, 400 MG PO BID, (Reported) Pravastatin Sodium 80 Mg Tablet, 80 MG PO HS, (Reported) Tamsulosin HCl 0.4 Mg Cap.er.24h, 0.4 MG PO DAILY, (Reported) Trazodone HCl 50 Mg Tablet, 50 MG PO HS, (Reported) Patient Home Medication List Home Medication List Reviewed: Yes Constitutional: see HPI, dizziness EENTM: no symptoms reported Respiratory: no symptoms reported Cardiovascular: see HPI, No chest pain, edema (CHRONIC RIGHT LEG SWELLING POST CABG AND IS NO DIFFERENT TODAY), No palpitations, No syncope Gastrointestinal: no symptoms reported, No abdominal pain, No diarrhea, No hematemesis, No melena, No nausea, No vomiting, other (NO BLACK/BLOODY/TARRY STOOLS) Genitourinary: no symptoms reported Musculoskeletal: see HPI, back pain Skin: no symptoms reported Psychiatric/Neurological: No Symptoms Reported Hematologic/Lymphatic: No Symptoms Reported Immunological/Allergic: no symptoms reported Past [id number]-[id number]-Nbriwl Hx Patient Social History Alcohol Use: Occasionally Uses Number of Drinks Today: AA Alcohol Beverage of Choice: Beer Recreational Drug Use: No Smoking Status: Former Smoker (05/15--QUIT IN 1999) Type Used: Cigarettes Former Smoker, Quit: Mar 01, 2000 2nd Hand Smoke Exposure: Yes Recent Foreign Travel: No Contact w/Someone Who Travel: No Recent Infectious Disease Expo: No Recent Hopitalizations: No Immunizations Up To Date Tetanus Booster (TDap): Less than 5yrs PED Vaccines UTD: No Date of Pneumonia Vaccine: Jun 14, 2015 Date of Influenza Vaccine: Feb 12, 2016 Seasonal Allergies Seasonal Allergies: Yes Surgeries History of Surgeries: Yes (HERNIA REPAIR; BACK SURGERY: 4 VESSEL CABG; CARDIAC CATHS--STENTS X 2 PLUS ANGIOPLASTY; LAST CATH 09/22/16--NO INTERVENTION; EGD'S/ COLONOSCOPIES/POLYPECTOMY; CATARACTS) Surgeries: Abdominal, Angioplasty, Cardiac, CABG, Coronary Stent, Eye Surgery, Gallbladder, Joint Replacement, Open Heart Surgery, Orthopedic, Vascular Surgery Respiratory History of Respiratory Disorde: Yes (CHRONIC DYSPNEA ON EXERTION) Respiratory Disorders: Sleep Apnea, COPD Currently Using CPAP: No Currently Using BIPAP: No Cardiovascular History of Cardiac Disorders: Yes (LAST CARDIAC CATH 09/22/16--NO INTERVENTION , PATENT STENTS, PROBABLE OCCLUDED GRAFT TO OBTUSE MARGINAL; CHRONIC RIGHT LOWER LEG SWELLING POST CABG) Cardiac Disorders: Atrial Fibrillation, Chronic Edema/Swelling, Coronary Artery Disease, Heart Attack, High Cholesterol, Hypertension, Peripheral Vascular Neurological History of Neurological Disord: Yes (POSSIBLE STROKE/ TIA) Neurological Disorders: Stroke, TIA Reproductive System Hx Reproductive Disorders: No Sexually Transmitted Disease: No HIV/AIDS: No Genitourinary History of Genitourinary Disor: Yes (RENAL INSUFFICIENCY) Genitourinary Disorders: Benign Prostatic Hyperpl, Prostate Problems, Renal Failure Gastrointestinal History of Gastrointestinal Di: Yes (GASTROPARESIS; GASTRITIS; DUODENITIS; COLON POLYPECTOMY; S/P ROSA AND HERNIA REPAIR) Gastrointestinal Disorders: Abdominal Hernia, Gastroesophageal Reflux, Pancreatitis, Polyps, Gall Bladder Disease Musculoskeletal History of Musculoskeletal Dis: Yes (OLECRANON BURSITIS, CHRONIC NECK PAIN, DISH SYNDROME) Musculoskeletal Disorders: Degenerate Disk Disease, Arthritis, Chronic Back Pain Endocrine History of Endocrine Disorders: Yes Endocrine Disorders: Diabetes, Insulin dep HEENT History of HEENT Disorders: Yes HEENT Disorders: Cataract Loss of Vision: Denies Hearing Impairment: Denies Cancer History of Cancer: No Psychosocial History of Psychiatric Problem: Yes Behavioral Health Disorders: Anxiety Integumentary History of Skin or Integumenta: No Blood Transfusions History of Blood Disorders: No Adverse Reaction to a Blood Tr: No Family Medical History Family Medial History: Cancer G8 BROTHER Cataract 19 FATHER 19 MOTHER G8 BROTHER G8 BROTHER G8 SISTER Congestive heart failure 19 FATHER 19 MOTHER Family history: Arthritis 19 FATHER 19 MOTHER G8 BROTHER G8 BROTHER G8 SISTER G8 SISTER DAUGHTER SON Family history: Breast disease DAUGHTER Family history: Cardiovascular disease 19 FATHER Family history: Diabetes mellitus 19 FATHER G8 BROTHER G8 SISTER Family history: Hypertension 19 FATHER 19 MOTHER G8 BROTHER G8 BROTHER G8 SISTER G8 SISTER DAUGHTER SON Family history: Thyroid disorder DAUGHTER Heart disease 19 FATHER 19 MOTHER G8 BROTHER Hypercholesterolemia 19 FATHER 19 MOTHER G8 BROTHER G8 BROTHER G8 SISTER Myocardial infarction 19 FATHER 19 MOTHER G8 BROTHER No Family History of: Abdominal aortic aneurysm Borger's disease Alcoholism Aphasia Cancer of colon Chest pain Congenital heart disease Cystic fibrosis Dementia Dysphagia Family history: Allergy Family history: Alzheimer's disease Family history: Asthma Family history: Coronary thrombosis Family history: Gastrointestinal disease Family history: Glaucoma Family history: Osteoporosis Headache Hearing loss Hereditary disease History of - anemia History of - disorder History of - respiratory disease History of drug abuse Human immunodeficiency virus (HIV) seropositivity Infertile Kidney disease Malignant neoplasm of lung Parkinson's disease Prostate cancer Psychotic disorder Seizure disorder Stroke Tuberculosis Visual impairment Physical Exam Vital Signs Vital Signs - First Documented 07/29/17 01:13 Temp 98.2 Pulse 65 Resp 15 B/P (MAP) 115/66 (82) Pulse Ox 95 Capillary Refill : Less Than 3 Seconds General Appearance: No Apparent Distress, WD/WN HEENT: PERRL/EOMI, Other (EDENTULOUS. CONSTANT LIP LICKING; DOES NOT APPEAR TO BE IN ANY DISCOMFORT OR DISTRESS) Neck: Full Range of Motion, Normal Inspection, Non Tender, Supple Respiratory: Normal Breath Sounds, No Accessory Muscle Use, No Respiratory Distress Cardiovascular: Regular Rate, Rhythm, No JVD, Normal Peripheral Pulses, Systolic Murmur (05/19) Gastrointestinal: Non Tender, Soft Back: Normal Inspection, No CVA Tenderness, No Vertebral Tenderness Extremity: Normal Capillary Refill, Normal Range of Motion, Non Tender, No Calf Tenderness, Pedal Edema (TRACE EDEMA TO RIGHT ANKLE) Neurologic/Psychiatric: Alert, Oriented x3 (BUT POOR HISTORIAN), No Motor/ Sensory Deficits, Normal Mood/Affect, 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 Norm as Tested Skin: Normal Color, Warm/Dry, Tattoos/Piercings (TATTOOS) Progress/Results/Core Measures Suspected Sepsis Recent Fever Within 48 Hours: No Infection Criteria Present: None New/Unexplained Altered Menta: No Sepsis Screen: No Definite Risk Sepsis Diagnosis: SIRS Temperature:98.2 Pulse: 65 Respiratory Rate: 15 Laboratory Tests 07/29/17 01:15: White Blood Count 6.9 Blood Pressure 115 /66 Mean: 82 Laboratory Tests 07/29/17 01:15: Creatinine 2.67H, INR Comment 1.6H, Platelet Count 245, Total Bilirubin 0.2 Results/Orders Lab Results Laboratory Tests Test 07/29/17 01:15 07/29/17 03:00 Range/Units White Blood Count 6.9 4.3-11.0 10^3/uL Red Blood Count 3.75 L 4.35-5.85 10^6/uL Hemoglobin 10.2 L 13.3-17.7 G/DL Hematocrit 30 L 40-54 % Mean Corpuscular Volume 81 80-99 FL Mean Corpuscular Hemoglobin 27 25-34 PG Mean Corpuscular Hemoglobin Concent 34 32-36 G/DL Red Cell Distribution Width 14.1 10.0-14.5 % Platelet Count 245 130-400 10^3/uL Mean Platelet Volume 9.7 7.4-10.4 FL Neutrophils (%) (Auto) 59 42-75 % Lymphocytes (%) (Auto) 28 12-44 % Monocytes (%) (Auto) 10 0-12 % Eosinophils (%) (Auto) 2 0-10 % Basophils (%) (Auto) 1 0-10 % Neutrophils # (Auto) 4.1 1.8-7.8 X 10^3 Lymphocytes # (Auto) 2.0 1.0-4.0 X 10^3 Monocytes # (Auto) 0.7 0.0-1.0 X 10^3 Eosinophils # (Auto) 0.1 0.0-0.3 10^3/uL Basophils # (Auto) 0.0 0.0-0.1 10^3/uL Prothrombin Time 18.9 H 12.2-14.7 SEC INR Comment 1.6 H 0.8-1.4 Activated Partial Thromboplast Time 32 24-35 SEC Sodium Level 138 135-145 MMOL/L Potassium Level 4.0 3.6-5.0 MMOL/L Chloride Level 106 98-107 MMOL/L Carbon Dioxide Level 21 21-32 MMOL/L Anion Gap 11 5-14 MMOL/L Blood Urea Nitrogen 29 H 7-18 MG/DL Creatinine 2.67 H 0.60-1.30 MG/DL Estimat Glomerular Filtration Rate 23 BUN/Creatinine Ratio 11 Glucose Level 209 H 70-105 MG/DL Calcium Level 9.5 8.5-10.1 MG/DL Magnesium Level 1.8 1.8-2.4 MG/DL Total Bilirubin 0.2 0.1-1.0 MG/DL Aspartate Amino Transf (AST/SGOT) 32 5-34 U/L Alanine Aminotransferase (ALT/SGPT) 20 0-55 U/L Alkaline Phosphatase 53 40-136 U/L Troponin I < 0.30 <0.30 NG/ML Total Protein 6.3 L 6.4-8.2 GM/DL Albumin 3.8 3.2-4.5 GM/DL Digoxin Level 0.41 L 0.80-2.00 NG/ML Urine Color YELLOW Urine Clarity CLEAR Urine pH 5 5-9 Urine Specific [place] 1.020 1.016-1.022 Urine Protein NEGATIVE NEGATIVE Urine Glucose (UA) NEGATIVE NEGATIVE Urine Ketones NEGATIVE NEGATIVE Urine Nitrite NEGATIVE NEGATIVE Urine Bilirubin NEGATIVE NEGATIVE Urine Urobilinogen NORMAL NORMAL MG/DL Urine Leukocyte Esterase 1+ H NEGATIVE Urine RBC (Auto) NEGATIVE NEGATIVE Urine RBC NONE /HPF Urine WBC RARE /HPF Urine Squamous Epithelial Cells 0-2 /HPF Urine Crystals NONE /LPF Urine Bacteria NEGATIVE /HPF Urine Casts PRESENT /LPF Urine Hyaline Casts 10-25 H /LPF Urine Mucus NEGATIVE /LPF Urine Culture Indicated NO My Orders Orders - ROMAIN KINGHT DO Accucheck Stat ONCE (07/29/17 01:09) Ekg Tracing (07/29/17 01:09) Monitor-Rhythm Ecg Trace Only (07/29/17 01:09) Cbc With Automated Diff (07/29/17 01:09) Comprehensive Metabolic Panel (07/29/17 01:09) Magnesium (07/29/17 01:09) Protime With Inr (07/29/17 01:09) Partial Thromboplastin Time (07/29/17 01:09) Troponin I (07/29/17 01:09) Ua Culture If Indicated (07/29/17 01:09) Saline Lock/Iv-Start (07/29/17 01:09) Saline Lock/Iv-Start (07/29/17 01:15) Ns Iv 1000 Ml (Sodium Chloride 0.9%) (07/29/17 01:15) Digoxin (07/29/17 01:20) Acetaminophen Tablet (Tylenol Tablet) (07/29/17 02:15) Saline Lock/Iv-Start (07/29/17 02:44) Ns Iv 1000 Ml (Sodium Chloride 0.9%) (07/29/17 02:44) Acetaminophen Tablet (Tylenol Tablet) (07/29/17 02:11) Medications Given in ED Current Medications Medications Dose Ordered Sig/Alka Route Start Time Stop Time Status Last Admin Dose Admin Acetaminophen 1,000 mg ONCE ONCE PO 07/29/17 02:15 07/29/17 03:55 DC 07/29/17 02:22 1,000 MG Sodium Chloride 1,000 ml @ 0 mls/hr Q0M ONCE IV 07/29/17 01:15 07/29/17 01:16 DC 07/29/17 01:48 0 MLS/HR Sodium Chloride 1,000 ml @ 0 mls/hr Q0M ONCE IV 07/29/17 02:44 07/29/17 02:45 DC 07/29/17 03:06 0 MLS/HR Vital Signs/I&O Vital Sign - Last 12Hours 07/29/17 07/29/17 01:13 03:47 Temp 98.2 Pulse 65 62 Resp 15 12 B/P (MAP) 115/66 (82) 115/70 Pulse Ox 95 96 Capillary Refill : Less Than 3 Seconds Blood Pressure Mean: 82 Progress Note : Progress Note ARRIVES SOMETIME AFTER PT ARRIVES VIA EMS, AND IS CONSTANTLY WRITING DOWN EVERY SINGLE VITAL SIGN THAT IS TAKEN FOR ENTIRE ER STAY NO DETERIORATION IN PT'S CONDITION DURING ER STAY BP HIGH 137/86 DURING ER STAY, AND 115/70 AT TIME OF DISMISSAL PT HAD NO COMPLAINTS OF DIZZINESS OR ANY OTHER SYMPTOMS OTHER THAN HIS CHRONIC BACK PAIN, GIVEN TYLENOL AND PT HAD NO MORE COMPLAINTS OF PAIN PT AMBULATED OUT OF ER WITHOUT DIFFICULTY STRESSED IMPORTANCE OF FOLLOW UP WITH DR. HERRERA IN 1-2 DAYS FOR FOLLOW UP / FURTHER EVALUATION OF ANEMIA AND RECHECK OF LAB/RENAL FUNCTION AND BLOOD PRESSURE ECG Initial ECG Impression Date: Jul 29, 2017 Initial ECG Impression Time: 01:24 Initial ECG Rate: 64 Initial ECG Rhythm: Normal Sinus Initial ECG Impression: Nonspecific Changes, 1st Degree AV Block Initial ECG Comparisson: Unchanged Departure Impression Impression: Primary Impression: Dehydration Additional Impressions: Acute on chronic renal insufficiency Hypotension Mild anemia ANTICOAGULATION THERAPY Disposition: HOME, SELF-CARE Condition: Improved Departure-Patient Inst. Referrals: IRAJ HERRERA MD (PCP/Family) Primary Care Physician Patient Instructions: Chronic Kidney Disease (DC), Dehydration, Adult (DC), Low Blood Pressure (DC), Normocytic Normochromic Anemia (DC) Add. Discharge Instructions: HOME, REST TAKE YOUR MEDICATIONS PRESCRIBED INCREASE YOUR FLUID INTAKE, DECREASE YOUR COFFEE INTAKE FOLLOW UP WITH DR. HERRERA IN 1-2 DAYS FOR FURTHER CARE RETURN TO ER IF WORSE All discharge instructions reviewed with patient and/or family. Voiced understanding. ROMAIN KNIGHT DO Jul 29, 2017 01:28
[2017-07-29 01:34] LABS: INR 1.6 (0.8-1.4); PROTHROMBIN TIME PATIENT 18.9 SEC (12.2-14.7)
[2017-07-29 01:45] LABS: ALANINE AMINOTRANSFERASE 20 U/L (0-55); ALBUMIN 3.8 GM/DL (3.2-4.5); ALKALINE PHOSPHATASE 53 U/L (40-136); BILIRUBIN,TOTAL 0.2 MG/DL (0.1-1.0); BUN/CREATININE RATIO 11; CALCIUM 9.5 MG/DL (8.5-10.1); CARBON DIOXIDE 21 MMOL/L (21-32); CHLORIDE 106 MMOL/L (98-107); CREATININE SERUM 2.67 MG/DL (0.60-1.30); GFR ESTIMATED 23; GLUCOSE 209 MG/DL (70-105); MAGNESIUM 1.8 MG/DL (1.8-2.4); SODIUM 138 MMOL/L (135-145); TOTAL PROTEIN 6.3 GM/DL (6.4-8.2)
[2017-07-29 01:51] LABS: DIGOXIN 0.41 NG/ML (0.80-2.00)
[2017-07-29] MEDS ORDERED: ACETAMINOPHEN 500 MG TAB (TYLENOL) ONE (02:11)
[2017-07-29] MEDS ORDERED: ACETAMINOPHEN 500 MG TAB (TYLENOL) PO ONE (02:15)
[2017-07-29 03:10] LABS: BILIRUBIN,URINE NEGATIVE (NEGATIVE); CLARITY,URINE CLEAR; COLOR,URINE YELLOW; GLUCOSE, URINE (UA) NEGATIVE (NEGATIVE); KETONES,URINE NEGATIVE (NEGATIVE); LEUKOCYTE ESTERASE ,URINE 1+ (NEGATIVE); NITRITE,URINE NEGATIVE (NEGATIVE); PH,URINE 5 (5-9); PROTEIN,URINE NEGATIVE (NEGATIVE); UROBILINOGEN,URINE NORMAL (NORMAL)
[2017-07-29 03:18] LABS: BACTERIA,URINE NEGATIVE /HPF; SQUAMOUS EPITHELIAL CELL,UR 0-2 /HPF; WBC,URINE RARE /HPF
[2017-07-29 03:47] VITALS: BP 115/70
== END 2017-07-29 03:55 | disposition home or self-care (01) ==
LOC: EDUNIT# 01:03 → ER 01:04
DX: E86.0 Dehydration (principal); N17.9 Acute kidney failure, unspecified; E11.22 Type 2 diabetes mellitus with diabetic chronic kidney disease; I12.9 Hypertensive chronic kidney disease with stage 1 through stage 4 chronic kidney disease, or unspecified chronic kidney disease; N18.9 Chronic kidney disease, unspecified; I73.9 Peripheral vascular disease, unspecified; I48.91 Unspecified atrial fibrillation; I95.9 Hypotension, unspecified; R60.0 Localized edema; D64.9 Anemia, unspecified; K21.9 Gastro-esophageal reflux disease without esophagitis; N40.1 Benign prostatic hyperplasia with lower urinary tract symptoms; I25.10 Atherosclerotic heart disease of native coronary artery without angina pectoris; I25.2 Old myocardial infarction; F41.9 Anxiety disorder, unspecified; Z87.891 Personal history of nicotine dependence; Z79.01 Long term (current) use of anticoagulants; Z90.49 Acquired absence of other specified parts of digestive tract; Z86.73 Personal history of transient ischemic attack (TIA), and cerebral infarction without residual deficits; Z95.1 Presence of aortocoronary bypass graft; Z95.5 Presence of coronary angioplasty implant and graft; Z98.890 Other specified postprocedural states; Z96.659 Presence of unspecified artificial knee joint; Z79.82 Long term (current) use of aspirin; Z79.4 Long term (current) use of insulin; Z88.0 Allergy status to penicillin; Z88.1 Allergy status to other antibiotic agents; Z88.6 Allergy status to analgesic agent; Z88.8 Allergy status to other drugs, medicaments and biological substances
CPT/HCPCS: 36415; 80053; 80162; 81000; 83735; 84484; 85025; 85610; 85730; 93005; 93041; 96360; 96361

== ENCOUNTER 2017-08-31 14:57 | Emergency (ER) | payer MEDICARE, MEDICAID ==
[~2017-08-31] VITALS: Ht 182.9 cm; Wt 87.5 kg
[~2017-08-31 14:57] MED LIST changes: -PENT400T2 PO; +PENT400T9 PO
--- NOTE | 2017-08-31 15:48 | ED GU-Male ---
General Chief Complaint: -Male Stated Complaint: PAIN IN SCROTUM Nursing Triage Note: PT AMBULATED TO RM 6 W/O DIFFICULTIES. PT IS ACCOMPANIED BY . PT STATES HIS L TESTICLE HAS BEEN SWOLLEN FOR APPROXIMATELY 1 MONTH, BUT STARTED HURTING MORE RECENTLY. PT C/O LOWER PELVIC PAIN WITH PALPATION. Source: patient Exam Limitations: no limitations History of Present Illness Date Seen by Provider: Aug 31, 2017 Time Seen by Provider: 15:07 Initial Comments Here with report of left scrotal swelling onset over the last month that worsened today. Not exactly sure what happened. Denies any recent injury. Denies dysuria or fever. Never has had anything like this before. Timing/Duration: getting worse Severity/Quality: mild, moderate, aching, other (swelling) Location: scrotal (left) Radiation: suprapubic Activities at Onset: none Prior Genitourinary Problems: none Associated Symptoms: No dysuria, No fever/chills, No nausea/vomiting; swelling ; No urinary frequency Allergies and Home Medications Allergies Coded Allergies: celecoxib (Unverified Allergy, Mild, TAKES ASPIRIN AT HOME, 12/21/14) diclofenac (Unverified Allergy, Mild, TAKES ASPIRIN AT HOME, 12/21/14) naproxen (Unverified Allergy, Mild, TAKES ASPIRIN AT HOME, 12/21/14) rosuvastatin (Unverified Allergy, Mild, 08/14/08) Penicillins (Verified Allergy, Unknown, 08/03/05) amoxicillin (Verified Allergy, Unknown, 08/03/05) fenofibrate (Unverified Allergy, Unknown, 06/05/16) simvastatin (Unverified Allergy, Unknown, 06/05/16) Uncoded Allergies: GEMIFIBOROZIL (Allergy, Unknown, 06/05/16) Home Medications Apixaban 5 Mg Tablet, 5 MG PO BID, (Reported) Apixaban 5 Mg Tablet, 5 MG PO BID, (Reported) Aspirin 81 Mg Tablet.dr, 81 MG PO DAILY, (Reported) Baclofen 10 Mg Tablet, 10 MG PO TID PRN for MUSCLE SPASMS, (Reported) Cilostazol 100 Mg Tablet, 100 MG PO BID, (Reported) Cyclobenzaprine HCl 5 Mg Tablet, 5 MG PO TID PRN for PAIN-MODERATE TO SEVERE Prescribed by: LEONARDO SALGADO on 07/28/17 1500 Digoxin 125 Mcg Tablet, 125 MCG PO DAILY, (Reported) Dronedarone HCl 400 Mg Tablet, 400 MG PO BID, (Reported) Fenofibrate,Micronized 134 Mg Capsule, 134 MG PO DAILY, (Reported) Gabapentin 300 Mg Capsule, 600 MG PO HS, (Reported) TAKES 2 (300 MG) CAPSULES Insulin Detemir 100 Unit/1 Ml Insuln.pen, 25 UNIT SQ BID, (Reported) Metoprolol Tartrate 25 Mg Tablet, 12.5 MG PO BID, (Reported) TAKES 1/2 OF A (25 MG) TABLET Montelukast Sodium 10 Mg Tablet, 10 MG PO DAILY, (Reported) Nitroglycerin 0.4 Mg Tab.subl, 0.4 MG SL UD PRN for CHEST PAIN, (Reported) MAX OF 3 TABS IN 15 MINUTES / CALL 911 IF PAIN REMAINS AFTER 5 MINUTES Pentoxifylline 400 Mg Tablet.er, 400 MG PO BID, (Reported) Pravastatin Sodium 80 Mg Tablet, 80 MG PO HS, (Reported) Tamsulosin HCl 0.4 Mg Cap.er.24h, 0.4 MG PO DAILY, (Reported) Trazodone HCl 50 Mg Tablet, 50 MG PO HS, (Reported) Patient Home Medication List Home Medication List Reviewed: Yes Review of Systems Constitutional: see HPI; No chills, No fever Respiratory: no symptoms reported Cardiovascular: no symptoms reported Gastrointestinal: No abdominal pain, No nausea, No vomiting Genitourinary: see HPI, pain Musculoskeletal: No back pain, No muscle pain Skin: no symptoms reported Past Xagnvfx-Wizqnj-Oiwnqa Hx Past Med/Social Hx: Reviewed Nursing Past Med/Soc Hx Patient Social History Alcohol Use: Occasionally Uses Number of Drinks Today: AA Alcohol Beverage of Choice: Beer Recreational Drug Use: No Type Used: Cigarettes Former Smoker, Quit: Mar 01, 2000 2nd Hand Smoke Exposure: Yes Recent Foreign Travel: No Contact w/Someone Who Travel: No Recent Infectious Disease Expo: No Recent Hopitalizations: No Physical Abuse: No Sexual Abuse: No Immunizations Up To Date Tetanus Booster (TDap): Less than 5yrs PED Vaccines UTD: No Date of Pneumonia Vaccine: Jun 14, 2015 Date of Influenza Vaccine: Feb 12, 2016 Seasonal Allergies Seasonal Allergies: Yes Past Medical History Surgeries: Yes Abdominal, Angioplasty, Cardiac, CABG, Coronary Stent, Eye Surgery, Gallbladder , Joint Replacement, Open Heart Surgery, Orthopedic, Vascular Surgery Respiratory: Yes (CHRONIC DYSPNEA ON EXERTION) Sleep Apnea, COPD Currently Using CPAP: No Currently Using BIPAP: No Cardiac: Yes Atrial Fibrillation, Chronic Edema/Swelling, Coronary Artery Disease, Heart Attack, High Cholesterol, Hypertension, Peripheral Vascular Neurological: Yes (POSSIBLE STROKE/ TIA) Stroke, TIA Reproductive Disorders: No Sexually Transmitted Disease: No HIV/AIDS: No Genitourinary: Yes (RENAL INSUFFICIENCY) Benign Prostatic Hyperpl, Prostate Problems, Renal Failure Gastrointestinal: Yes Abdominal Hernia, Gastroesophageal Reflux, Pancreatitis, Polyps, Gall Bladder Disease Musculoskeletal: Yes (OLECRANON BURSITIS, CHRONIC NECK PAIN, DISH SYNDROME) Degenerate Disk Disease, Arthritis, Chronic Back Pain Endocrine: Yes Diabetes, Insulin dep HEENT: Yes Cataract Loss of Vision: Denies Hearing Impairment: Denies Cancer: No Psychosocial: Yes Anxiety Nursing Suicide Risk Score: 0 Integumentary: No Blood Disorders: No Adverse Reaction/Blood Tranf: No Family Medical History Reviewed Nursing Family Hx Cancer G8 BROTHER Cataract 19 FATHER 19 MOTHER G8 BROTHER G8 BROTHER G8 SISTER Congestive heart failure 19 FATHER 19 MOTHER Family history: Arthritis 19 FATHER 19 MOTHER G8 BROTHER G8 BROTHER G8 SISTER G8 SISTER DAUGHTER SON Family history: Breast disease DAUGHTER Family history: Cardiovascular disease 19 FATHER Family history: Diabetes mellitus 19 FATHER G8 BROTHER G8 SISTER Family history: Hypertension 19 FATHER 19 MOTHER G8 BROTHER G8 BROTHER G8 SISTER G8 SISTER DAUGHTER SON Family history: Thyroid disorder DAUGHTER Heart disease 19 FATHER 19 MOTHER G8 BROTHER Hypercholesterolemia 19 FATHER 19 MOTHER G8 BROTHER G8 BROTHER G8 SISTER Myocardial infarction 19 FATHER 19 MOTHER G8 BROTHER No Family History of: Abdominal aortic aneurysm Robel's disease Alcoholism Aphasia Cancer of colon Chest pain Congenital heart disease Cystic fibrosis Dementia Dysphagia Family history: Allergy Family history: Alzheimer's disease Family history: Asthma Family history: Coronary thrombosis Family history: Gastrointestinal disease Family history: Glaucoma Family history: Osteoporosis Headache Hearing loss Hereditary disease History of - anemia History of - disorder History of - respiratory disease History of drug abuse Human immunodeficiency virus (HIV) seropositivity Infertile Kidney disease Malignant neoplasm of lung Parkinson's disease Prostate cancer Psychotic disorder Seizure disorder Stroke Tuberculosis Visual impairment Physical Exam Vital Signs Vital Signs - First Documented 08/31/17 15:01 Temp 99.1 Pulse 90 Resp 14 B/P (MAP) 157/85 (109) O2 Delivery Room Air Capillary Refill : Less Than 3 Seconds General Appearance: WD/WN, no apparent distress Cardiovascular: regular rate, rhythm, no murmur Respiratory: lungs clear, normal breath sounds Gastrointestinal: non tender, soft Male: inguinal tenderness (left greater than right), testicular tenderness ( left-sided), other (noted swelling within the left scrotal area that appears to be proximal to the testicle.) Extremities: normal range of motion, non-tender, pedal edema (1+ bilateral to the level of mid tibia) Neurologic/Psychiatric: alert, oriented x 3 Skin: normal color, warm/dry Progress/Results/Core Measures Suspected Sepsis Recent Fever Within 48 Hours: No Infection Criteria Present: None New/Unexplained Altered Menta: No Sepsis Screen: No Definite Risk SIRS Temperature:99.1 Pulse: 90 Respiratory Rate: 14 Blood Pressure 157 /85 Mean: 109 Results/Orders Lab Results Laboratory Tests Test 08/31/17 15:50 Range/Units Urine Color YELLOW Urine Clarity CLEAR Urine pH 7 5-9 Urine Specific [place] 1.010 L 1.016-1.022 Urine Protein 1+ H NEGATIVE Urine Glucose (UA) 4+ H NEGATIVE Urine Ketones NEGATIVE NEGATIVE Urine Nitrite NEGATIVE NEGATIVE Urine Bilirubin NEGATIVE NEGATIVE Urine Urobilinogen NORMAL NORMAL MG/DL Urine Leukocyte Esterase NEGATIVE NEGATIVE Urine RBC (Auto) NEGATIVE NEGATIVE Urine RBC NONE /HPF Urine WBC RARE /HPF Urine Crystals NONE /LPF Urine Bacteria NEGATIVE /HPF Urine Casts NONE /LPF Urine Mucus NEGATIVE /LPF Urine Culture Indicated NO My Orders Orders - CHARO SCHNEIDER MD Us Scrotum (Testicle) [id number] (08/31/17 15:11) Ua Culture If Indicated (08/31/17 15:11) Vital Signs/I&O 08/31/17 15:01 Temp 99.1 Pulse 90 Resp 14 B/P (MAP) 157/85 (109) O2 Delivery Room Air Capillary Refill : Less Than 3 Seconds Blood Pressure Mean: 109 Progress Note : Progress Note Seen and evaluated. Ultrasound scrotum ordered. UA ordered. Monitor patient. Ultrasound completed. Results reviewed with the patient. UA complete as well. We will try a course of antibiotics and have him follow-up with his primary doctor on Sunday for referral to urology as needed. Discharged home with return precautions. Patient verbalize understanding instructions and agreement with plan. Diagnostic Imaging Diagonstic Imaging: Ultrasound Plain Films/CT/US/NM/MRI: other Comments NAME: CASTRO PADRON [facility] REC#: [id number] PT STATUS: REG ER : 1940 PHYSICIAN: CHARO SCHNEIDER MD ADMIT DATE: 08/31/17/ER Signed Date of Exam: 08/31/17 US SCROTUM (Testicle) [id number] INDICATION: Testicular pain and lump. FINDINGS: The right testicle measures 3.5 x 1.9 x 2.5 cm, and the left testicle measures 3.4 x 1.5 x 2.1 cm. Both testes demonstrate a homogeneous echotexture. No discrete testicular mass is seen. There is blood flow to both testes. There is a large extratesticular cyst on the left side located cephalad and lateral to the testicle, perhaps epididymal in location. This measures 6.1 x 2.8 x 3.4 cm. There is also a hydrocele on the left side. Right epididymis is unremarkable. No right hydrocele is seen. IMPRESSION: 1. No evidence of testicular mass or vascular compromise. 2. Large left scrotal cyst, likely an epididymal cyst. There is also a small left hydrocele. Dictated by: Dictated on workstation # [id number] Dict: 08/31/171551 Trans: 08/31/171556 Interpreted by: DANIELLE MARR MD Electronically signed by: DANIELLE MARR MD 08/31/171556 Departure Impression Primary Impression: Epididymal cyst Additional Impression: Hydrocele in adult Disposition: 01 HOME, SELF-CARE Condition: Stable Departure-Patient Inst. Decision time for Depature: 16:33 Referrals: IRAJ HERRERA MD (PCP/Family) Primary Care Physician Patient Instructions: Epididymitis (DC), Hydrocele Add. Discharge Instructions: All discharge instructions reviewed with patient and/or family. Voiced understanding. Take medications as directed. Follow-up with your doctor on Sunday for recheck and further evaluation including referral to urology as needed. Return for worse pain, fever, vomiting, weakness, breathing problems or other concerns as needed. Scripts Doxycycline Hyclate (Doxycycline Hyclate) 100 Mg Tablet 100 MG PO BID, #20 TAB 0 Refills Prov: CHARO SCHNEIDER MD 08/31/17 Copy Copies To 1: IRAJ HERRERA MD, TIMOTHY D MD Aug 31, 2017 15:48
--- NOTE | 2017-08-31 15:56 | Diagnostic Imaging Report ---
INDICATION: Testicular pain and lump. FINDINGS: The right testicle measures 3.5 x 1.9 x 2.5 cm, and the left testicle measures 3.4 x 1.5 x 2.1 cm. Both testes demonstrate a homogeneous echotexture. No discrete testicular mass is seen. There is blood flow to both testes. There is a large extratesticular cyst on the left side located cephalad and lateral to the testicle, perhaps epididymal in location. This measures 6.1 x 2.8 x 3.4 cm. There is also a hydrocele on the left side. Right epididymis is unremarkable. No right hydrocele is seen. IMPRESSION: 1. No evidence of testicular mass or vascular compromise. 2. Large left scrotal cyst, likely an epididymal cyst. There is also a small left hydrocele. Dictated by: Dictated on workstation # [id number]
[2017-08-31 16:04] LABS: BILIRUBIN,URINE NEGATIVE (NEGATIVE); CLARITY,URINE CLEAR; COLOR,URINE YELLOW; GLUCOSE, URINE (UA) 4+ (NEGATIVE); KETONES,URINE NEGATIVE (NEGATIVE); LEUKOCYTE ESTERASE ,URINE NEGATIVE (NEGATIVE); NITRITE,URINE NEGATIVE (NEGATIVE); PH,URINE 7 (5-9); PROTEIN,URINE 1+ (NEGATIVE); UROBILINOGEN,URINE NORMAL (NORMAL)
[2017-08-31 16:19] LABS: BACTERIA,URINE NEGATIVE /HPF; WBC,URINE RARE /HPF
[2017-08-31] MEDS ORDERED: DOXY100T2 PO (16:35)
[2017-08-31 16:39] VITALS: BP 135/88
== END 2017-08-31 16:39 | disposition home or self-care (01) ==
LOC: EDUNIT# 14:57 → ER 14:59
DX: N50.3 Cyst of epididymis (principal); N43.3 Hydrocele, unspecified; J44.9 Chronic obstructive pulmonary disease, unspecified; G47.30 Sleep apnea, unspecified; I48.91 Unspecified atrial fibrillation; R60.0 Localized edema; I25.10 Atherosclerotic heart disease of native coronary artery without angina pectoris; I25.2 Old myocardial infarction; E78.00 Pure hypercholesterolemia, unspecified; I10 Essential (primary) hypertension; I73.9 Peripheral vascular disease, unspecified; N40.0 Benign prostatic hyperplasia without lower urinary tract symptoms; K21.9 Gastro-esophageal reflux disease without esophagitis; E11.9 Type 2 diabetes mellitus without complications; F41.9 Anxiety disorder, unspecified; Z98.890 Other specified postprocedural states; Z87.19 Personal history of other diseases of the digestive system; Z86.73 Personal history of transient ischemic attack (TIA), and cerebral infarction without residual deficits; Z95.5 Presence of coronary angioplasty implant and graft; Z95.1 Presence of aortocoronary bypass graft; Z87.891 Personal history of nicotine dependence; Z87.448 Personal history of other diseases of urinary system; Z79.82 Long term (current) use of aspirin; Z79.4 Long term (current) use of insulin; Z82.49 Family history of ischemic heart disease and other diseases of the circulatory system; Z88.0 Allergy status to penicillin; Z88.1 Allergy status to other antibiotic agents; Z88.6 Allergy status to analgesic agent; Z88.8 Allergy status to other drugs, medicaments and biological substances
CPT/HCPCS: 76870; 81000

== ENCOUNTER 2017-09-06 14:47 | Emergency (ER) | payer MEDICARE, MEDICAID ==
[~2017-09-06] VITALS: Ht 182.9 cm; Wt 88.0 kg
[~2017-09-06 14:47] MED LIST changes: +DOXY100T2 PO
--- OUTSIDE RECORDS SUMMARY | 2017-09-06 14:53 | XMS REPORT | Clinical Summary ---
Author Author [facility] Organization [facility] Address Unknown Phone Unavailable Care Team Providers Care [facility] Name Role Phone Chance aWrd PCP Source Comments Some departments are not documenting in the electronic medical record. If you do not see the information that you expected, contact Release of Information in the Health Information Management department at [phone] for further assistance in locating additional records.[facility] Allergies Not on File Current [...] Problem Noted Date Coronary artery disease involving [place] coronary artery 10/24/2016 Overview: 2000 CABG x 4 02/17/12 PTCA BMS to vein graft to the OM 03/02/16 severe in-stent restenosis in the SVG to the OM with successful PCI, no residual stenosis, patent VG to RCA VG to the diag artery and AMANDA to the LAD occluded [place] vessels proximally, small vessel disease distally 09/25/16 [facility] - severe [place] disease, patent graft to RCA, diagonal LAD, [...]
[2017-09-06 15:40] LABS: BASOPHILS % (AUTO) 0 % (0-10); EOSINOPHILS # (AUTO) 0.1 10^3/uL (0.0-0.3); EOSINOPHILS % (AUTO) 1 % (0-10); HEMATOCRIT 40 % (40-54); HEMOGLOBIN 12.9 G/DL (13.3-17.7); LYMPHOCYTES # (AUTO) 1.2 X 10^3 (1.0-4.0); LYMPHOCYTES % (AUTO) 23 % (12-44); MEAN CORPUSCULAR HEMOGLOBIN 26 PG (25-34); MEAN CORPUSCULAR HGB CONC 32 G/DL (32-36); MEAN CORPUSCULAR VOLUME 82 FL (80-99); MEAN PLATELET VOLUME 9.6 FL (7.4-10.4); MONOCYTES # (AUTO) 0.4 X 10^3 (0.0-1.0); MONOCYTES % (AUTO) 8 % (0-12); NEUTROPHILS # (AUTO) 3.6 X 10^3 (1.8-7.8); NEUTROPHILS % (AUTO) 68 % (42-75); PLATELET COUNT 321 10^3/uL (130-400); RED BLOOD COUNT 4.87 10^6/uL (4.35-5.85); RED CELL DISTRIBUTION WIDTH 15.7 % (10.0-14.5); WHITE BLOOD COUNT 5.3 10^3/uL (4.3-11.0)
[2017-09-06 15:53] LABS: ALBUMIN 4.6 GM/DL (3.2-4.5); BILIRUBIN,TOTAL 0.5 MG/DL (0.1-1.0); CALCIUM 10.5 MG/DL (8.5-10.1); CREATININE SERUM 1.56 MG/DL (0.60-1.30); POTASSIUM 4.1 MMOL/L (3.6-5.0); TOTAL PROTEIN 8.4 GM/DL (6.4-8.2)
[2017-09-06 15:56] LABS: BILIRUBIN,URINE NEGATIVE (NEGATIVE); CLARITY,URINE CLEAR; COLOR,URINE YELLOW; GLUCOSE, URINE (UA) NEGATIVE (NEGATIVE); KETONES,URINE NEGATIVE (NEGATIVE); LEUKOCYTE ESTERASE ,URINE NEGATIVE (NEGATIVE); NITRITE,URINE NEGATIVE (NEGATIVE); PH,URINE 6 (5-9); PROTEIN,URINE 2+ (NEGATIVE); UROBILINOGEN,URINE NORMAL (NORMAL)
[2017-09-06 16:05] LABS: BACTERIA,URINE NEGATIVE /HPF; WBC,URINE RARE /HPF
--- NOTE | 2017-09-06 17:00 | Diagnostic Imaging Report ---
PROCEDURE: CT abdomen and pelvis without contrast. TECHNIQUE: Multiple contiguous axial images were obtained through the abdomen and pelvis without the use of intravenous contrast. INDICATION: Epigastric pain. FINDINGS: The previous CT abdomen/pelvis on 12/05/2016 noted fluid-filled segments of small bowel suggesting an adynamic ileus. There is also extensive diverticulosis of the sigmoid and descending colon but there is no sign of acute diverticulitis. On this study, the fluid-filled segments of small bowel seen previously are not nearly as conspicuous. There is no sign of an ileus at this time. There are still numerous diverticuli involving the sigmoid and descending colon but there is no evidence for acute diverticulitis. A fair amount of fecal material has developed in the rectosigmoid portion of the colon, however. There is no pelvic mass or free fluid collection noted. The urinary bladder and prostate gland are similar in appearance to the prior study. The appendix was visualized and is not abnormally thickened. The liver, spleen, pancreas, adrenals, kidneys, aorta, and inferior vena cava are unremarkable for an acute abnormality. As noted on the prior exam, the gallbladder is surgically absent. The stomach is partially filled with gas and fluid and consequently difficult to assess. The lung bases are clear. The bone windows show no evidence for a fracture or for a destructive lesion. There is fairly severe degenerative disease involving the lower thoracic and lower lumbar spine, however. IMPRESSION: 1. There is no acute abnormality in the abdomen or pelvis. 2. There is diverticulosis of the sigmoid and descending colon but there is no sign of acute diverticulitis. 3. There is a fair amount of fecal material in the rectosigmoid portion of the colon. Dictated by: Dictated on workstation # [id number]
--- NOTE | 2017-09-06 17:31 | ED Abdominal Pain ---
General Chief Complaint: Abdominal/GI Problems Stated Complaint: ABD PAIN Nursing Triage Note: PT CO OF UPPER ABD PAIN POINTS TO EPIGASTRIC AREA Sepsis Screen: No Definite Risk Source of Information: Patient, Family Exam Limitations: No Limitations History of Present Illness Date Seen by Provider: Sep 06, 2017 Time Seen by Provider: 16:00 Initial Comments The patient is a 77-year-old white male known to me for many years. This is his sixth ER visit since July 12. He was here on 08/31 with the concerns about what proved to be a an apparent epididymal cyst on a testicle. Today he reports that today he developed epigastric discomfort at about noon. He reports he had a bowel movement yesterday. He has not vomited. There has been no fever Timing/Duration: 4-6 Hours Severity/Quality: Moderate Location: Epigastric Radiation: No Radiation Modifying Factors: Improves With Analgesics Associated Symptoms: Denies Symptoms Allergies and Home Medications Allergies Coded Allergies: celecoxib (Unverified Allergy, Mild, TAKES ASPIRIN AT HOME, 12/21/14) diclofenac (Unverified Allergy, Mild, TAKES ASPIRIN AT HOME, 12/21/14) naproxen (Unverified Allergy, Mild, TAKES ASPIRIN AT HOME, 12/21/14) rosuvastatin (Unverified Allergy, Mild, 08/14/08) Penicillins (Verified Allergy, Unknown, 08/03/05) amoxicillin (Verified Allergy, Unknown, 08/03/05) fenofibrate (Unverified Allergy, Unknown, 06/05/16) simvastatin (Unverified Allergy, Unknown, 06/05/16) Uncoded Allergies: GEMIFIBOROZIL (Allergy, Unknown, 06/05/16) Home Medications Apixaban 5 Mg Tablet, 5 MG PO BID, (Reported) Apixaban 5 Mg Tablet, 5 MG PO BID, (Reported) Aspirin 81 Mg Tablet.dr, 81 MG PO DAILY, (Reported) Baclofen 10 Mg Tablet, 10 MG PO TID PRN for MUSCLE SPASMS, (Reported) Cilostazol 100 Mg Tablet, 100 MG PO BID, (Reported) Cyclobenzaprine HCl 5 Mg Tablet, 5 MG PO TID PRN for PAIN-MODERATE TO SEVERE Prescribed by: LEONARDO SALGADO on 07/28/17 1500 Digoxin 125 Mcg Tablet, 125 MCG PO DAILY, (Reported) Doxycycline Hyclate 100 Mg Tablet, 100 MG PO BID Prescribed by: CHARO SCHNEIDER on 08/31/17 1635 Dronedarone HCl 400 Mg Tablet, 400 MG PO BID, (Reported) Fenofibrate,Micronized 134 Mg Capsule, 134 MG PO DAILY, (Reported) Gabapentin 300 Mg Capsule, 600 MG PO HS, (Reported) TAKES 2 (300 MG) CAPSULES Insulin Detemir 100 Unit/1 Ml Insuln.pen, 25 UNIT SQ BID, (Reported) Metoprolol Tartrate 25 Mg Tablet, 12.5 MG PO BID, (Reported) TAKES 1/2 OF A (25 MG) TABLET Montelukast Sodium 10 Mg Tablet, 10 MG PO DAILY, (Reported) Nitroglycerin 0.4 Mg Tab.subl, 0.4 MG SL UD PRN for CHEST PAIN, (Reported) MAX OF 3 TABS IN 15 MINUTES / CALL 911 IF PAIN REMAINS AFTER 5 MINUTES Pentoxifylline 400 Mg Tablet.er, 400 MG PO BID, (Reported) Pravastatin Sodium 80 Mg Tablet, 80 MG PO HS, (Reported) Tamsulosin HCl 0.4 Mg Cap.er.24h, 0.4 MG PO DAILY, (Reported) Trazodone HCl 50 Mg Tablet, 50 MG PO HS, (Reported) Patient Home Medication List Home Medication List Reviewed: Yes Review of Systems Constitutional: see HPI EENTM: No Symptoms Reported Respiratory: No Symptoms Reported Cardiovascular: No Symptoms Reported Gastrointestinal: See HPI, Abdomen Distended Genitourinary: No Symptoms Reported Musculoskeletal: no symptoms reported Skin: no symptoms reported Psychiatric/Neurological: No Symptoms Reported Endocrine: No Symptoms Reported Hematologic/Lymphatic: No Symptoms Reported Past Prmcpsr-Saderd-Esedkb Hx Patient Social History Alcohol Use: Denies Use Number of Drinks Today: AA Alcohol Beverage of Choice: Beer Recreational Drug Use: No Smoking Status: Former Smoker Type Used: Cigarettes Former Smoker, Quit: Mar 01, 2000 2nd Hand Smoke Exposure: Yes Recent Foreign Travel: No Contact w/Someone Who Travel: No Recent Infectious Disease Expo: No Recent Hopitalizations: No Physical Abuse: No Sexual Abuse: No Immunizations Up To Date Tetanus Booster (TDap): Less than 5yrs PED Vaccines UTD: No Date of Pneumonia Vaccine: Jun 14, 2015 Date of Influenza Vaccine: Feb 12, 2016 Seasonal Allergies Seasonal Allergies: Yes Past Medical History Surgeries: Yes Abdominal, Angioplasty, Cardiac, CABG, Coronary Stent, Eye Surgery, Gallbladder , Joint Replacement, Open Heart Surgery, Orthopedic, Vascular Surgery Respiratory: Yes (CHRONIC DYSPNEA ON EXERTION) Sleep Apnea, COPD Currently Using CPAP: No Currently Using BIPAP: No Cardiac: Yes Atrial Fibrillation, Chronic Edema/Swelling, Coronary Artery Disease, Heart Attack, High Cholesterol, Hypertension, Peripheral Vascular Neurological: Yes (POSSIBLE STROKE/ TIA) Stroke, TIA Reproductive Disorders: No Sexually Transmitted Disease: No HIV/AIDS: No Genitourinary: Yes (RENAL INSUFFICIENCY) Benign Prostatic Hyperpl, Prostate Problems, Renal Failure Gastrointestinal: Yes Abdominal Hernia, Gastroesophageal Reflux, Pancreatitis, Polyps, Gall Bladder Disease Musculoskeletal: Yes (OLECRANON BURSITIS, CHRONIC NECK PAIN, DISH SYNDROME) Degenerate Disk Disease, Arthritis, Chronic Back Pain Endocrine: Yes Diabetes, Insulin dep HEENT: Yes Cataract Loss of Vision: Denies Hearing Impairment: Denies Cancer: No Psychosocial: Yes Anxiety Nursing Suicide Risk Score: 0 Integumentary: No Blood Disorders: No Adverse Reaction/Blood Tranf: No Family Medical History Cancer G8 BROTHER Cataract 19 FATHER 19 MOTHER G8 BROTHER G8 BROTHER G8 SISTER Congestive heart failure 19 FATHER 19 MOTHER Family history: Arthritis 19 FATHER 19 MOTHER G8 BROTHER G8 BROTHER G8 SISTER G8 SISTER DAUGHTER SON Family history: Breast disease DAUGHTER Family history: Cardiovascular disease 19 FATHER Family history: Diabetes mellitus 19 FATHER G8 BROTHER G8 SISTER Family history: Hypertension 19 FATHER 19 MOTHER G8 BROTHER G8 BROTHER G8 SISTER G8 SISTER DAUGHTER SON Family history: Thyroid disorder DAUGHTER Heart disease 19 FATHER 19 MOTHER G8 BROTHER Hypercholesterolemia 19 FATHER 19 MOTHER G8 BROTHER G8 BROTHER G8 SISTER Myocardial infarction 19 FATHER 19 MOTHER G8 BROTHER No Family History of: Abdominal aortic aneurysm [place]'s disease Alcoholism Aphasia Cancer of colon Chest pain Congenital heart disease Cystic fibrosis Dementia Dysphagia Family history: Allergy Family history: Alzheimer's disease Family history: Asthma Family history: Coronary thrombosis Family history: Gastrointestinal disease Family history: Glaucoma Family history: Osteoporosis Headache Hearing loss Hereditary disease History of - anemia History of - disorder History of - respiratory disease History of drug abuse Human immunodeficiency virus (HIV) seropositivity Infertile Kidney disease Malignant neoplasm of lung Parkinson's disease Prostate cancer Psychotic disorder Seizure disorder Stroke Tuberculosis Visual impairment Physical Exam Vital Signs Vital Signs - First Documented 09/06/17 15:04 Temp 97.4 Pulse 81 Resp 18 B/P (MAP) 169/104 (125) Pulse Ox 96 Capillary Refill : Less Than 3 Seconds General Appearance: mild distress HEENT: normal ENT inspection Neck: full range of motion Respiratory: chest non-tender, lungs clear, normal breath sounds, no respiratory distress, no accessory muscle use Cardiovascular: normal peripheral pulses, regular rate, rhythm, no edema, no gallop, no JVD, no murmur Gastrointestinal: abnormal bowel sounds (hypoactive bowel sounds), distended Extremities: normal range of motion, non-tender, normal inspection, no pedal edema, no calf tenderness, normal capillary refill, pelvis stable Progress/Results/Core Measures Lab Results Laboratory Tests Test 09/06/17 15:00 09/06/17 15:48 Range/Units White Blood Count 5.3 4.3-11.0 10^3/uL Red Blood Count 4.87 4.35-5.85 10^6/uL Hemoglobin 12.9 L 13.3-17.7 G/DL Hematocrit 40 40-54 % Mean Corpuscular Volume 82 80-99 FL Mean Corpuscular Hemoglobin 26 25-34 PG Mean Corpuscular Hemoglobin Concent 32 32-36 G/DL Red Cell Distribution Width 15.7 H 10.0-14.5 % Platelet Count 321 130-400 10^3/uL Mean Platelet Volume 9.6 7.4-10.4 FL Neutrophils (%) (Auto) 68 42-75 % Lymphocytes (%) (Auto) 23 12-44 % Monocytes (%) (Auto) 8 0-12 % Eosinophils (%) (Auto) 1 0-10 % Basophils (%) (Auto) 0 0-10 % Neutrophils # (Auto) 3.6 1.8-7.8 X 10^3 Lymphocytes # (Auto) 1.2 1.0-4.0 X 10^3 Monocytes # (Auto) 0.4 0.0-1.0 X 10^3 Eosinophils # (Auto) 0.1 0.0-0.3 10^3/uL Basophils # (Auto) 0.0 0.0-0.1 10^3/uL Sodium Level 138 135-145 MMOL/L Potassium Level 4.1 3.6-5.0 MMOL/L Chloride Level 105 98-107 MMOL/L Carbon Dioxide Level 26 21-32 MMOL/L Anion Gap 7 5-14 MMOL/L Blood Urea Nitrogen 15 7-18 MG/DL Creatinine 1.56 H 0.60-1.30 MG/DL Estimat Glomerular Filtration Rate 44 BUN/Creatinine Ratio 10 Glucose Level 191 H 70-105 MG/DL Calcium Level 10.5 H 8.5-10.1 MG/DL Total Bilirubin 0.5 0.1-1.0 MG/DL Aspartate Amino Transf (AST/SGOT) 35 H 5-34 U/L Alanine Aminotransferase (ALT/SGPT) 36 0-55 U/L Alkaline Phosphatase 59 40-136 U/L Total Protein 8.4 H 6.4-8.2 GM/DL Albumin 4.6 H 3.2-4.5 GM/DL Lipase 68 8-78 U/L Urine Color YELLOW Urine Clarity CLEAR Urine pH 6 5-9 Urine Specific [place] 1.015 L 1.016-1.022 Urine Protein 2+ H NEGATIVE Urine Glucose (UA) NEGATIVE NEGATIVE Urine Ketones NEGATIVE NEGATIVE Urine Nitrite NEGATIVE NEGATIVE Urine Bilirubin NEGATIVE NEGATIVE Urine Urobilinogen NORMAL NORMAL MG/DL Urine Leukocyte Esterase NEGATIVE NEGATIVE Urine RBC (Auto) 2+ H NEGATIVE Urine RBC 2-5 H /HPF Urine WBC RARE /HPF Urine Crystals NONE /LPF Urine Bacteria NEGATIVE /HPF Urine Casts NONE /LPF Urine Mucus NEGATIVE /LPF Urine Culture Indicated NO My Orders Orders - DEEDEE CUBA MD Cbc With Automated Diff (09/06/17 15:31) Comprehensive Metabolic Panel (09/06/17 15:31) Lipase (09/06/17 15:31) Ua Culture If Indicated (09/06/17 15:31) Ct Abdomen/Pelvis Wo (09/06/17 16:21) Vital Signs/I&O 09/06/17 15:04 Temp 97.4 Pulse 81 Resp 18 B/P (MAP) 169/104 (125) Pulse Ox 96 Blood Pressure Mean: 125 Departure Communication (Admissions) CT scan shows stool throughout the small and large intestine. Impression Primary Impression: Epigastric abdominal pain Additional Impression: constipation Disposition: 01 HOME, SELF-CARE Condition: Stable/Unchanged Departure-Patient Inst. Decision time for Depature: 17:29 Referrals: IRAJ HERRERA MD (PCP/Family) Primary Care Physician Patient Instructions: No Instuctions Given Add. Discharge Instructions: All discharge instructions reviewed with patient and/or family. Voiced understanding. Acquire MiraLAX and take 17 g after supper. If no bowel movement in the morning and repeat the dose. DEEDEE CUBA MD Sep 06, 2017 17:31
[2017-09-06 17:37] VITALS: BP 169/104
== END 2017-09-06 17:37 | disposition home or self-care (01) ==
LOC: EDUNIT# 14:47 → ER 14:48
DX: K59.00 Constipation, unspecified (principal); J44.9 Chronic obstructive pulmonary disease, unspecified; G47.30 Sleep apnea, unspecified; I25.10 Atherosclerotic heart disease of native coronary artery without angina pectoris; E78.00 Pure hypercholesterolemia, unspecified; I10 Essential (primary) hypertension; I73.9 Peripheral vascular disease, unspecified; I25.2 Old myocardial infarction; I48.91 Unspecified atrial fibrillation; E11.9 Type 2 diabetes mellitus without complications; F41.9 Anxiety disorder, unspecified; K21.9 Gastro-esophageal reflux disease without esophagitis; Z86.010 Personal history of colon polyps; Z88.0 Allergy status to penicillin; Z88.8 Allergy status to other drugs, medicaments and biological substances; Z82.49 Family history of ischemic heart disease and other diseases of the circulatory system; Z88.6 Allergy status to analgesic agent; Z86.73 Personal history of transient ischemic attack (TIA), and cerebral infarction without residual deficits; Z87.19 Personal history of other diseases of the digestive system; Z79.01 Long term (current) use of anticoagulants; Z79.82 Long term (current) use of aspirin; Z79.4 Long term (current) use of insulin; Z87.891 Personal history of nicotine dependence; Z95.1 Presence of aortocoronary bypass graft; Z95.5 Presence of coronary angioplasty implant and graft
CPT/HCPCS: 36415; 74176; 80053; 81000; 83690; 85025

== ENCOUNTER 2017-10-12 14:55 | Emergency (ER) | payer MEDICARE, MEDICAID ==
[~2017-10-12] VITALS: Ht 182.9 cm; Wt 87.5 kg
--- OUTSIDE RECORDS SUMMARY | 2017-10-12 15:00 | XMS REPORT | Clinical Summary ---
Author Author [facility] Organization [facility] Address Unknown Phone Unavailable Care Team Providers Care Circuit Recorder Name Role Phone Chance Ward PCP Source Comments Some departments are not documenting in the electronic medical record. If you do not see the information that you expected, contact Release of Information in the Health Information Management department at [phone] for further assistance in locating additional records.[employer] [...] Problem Noted Date Coronary artery disease involving [place] coronary artery 10/24/2016 Overview: 2000 CABG x 4 02/17/12 PTCA BMS to vein graft to the OM 03/02/16 severe in-stent restenosis in the SVG to the OM with successful PCI, no residual stenosis, patent VG to RCA VG to the diag artery and AMANDA to the LAD occluded [place] vessels proximally, small vessel disease distally 09/25/16 [facility] - severe skull valley disease, patent graft to RCA, diagonal LAD, probably occluded graft to OM - felt to be reason for chest pain in stent severe restenosis in the SVG to OM with successfull PCI, no residual disease PVD (peripheral vascular disease) ([facility]) 10/24/2016 Overview: 03/02/16 peripheral angio: severe PAD with total occlusion of the post tibial and peroneal artery at the trifurcation, level reconstructed by collateral down at the ankle with occlusion at the ant tibial artery at the ankle level. Mod PAD on LLE down to the trifurcation Carotid artery disease ([facility]) 10/24/2016 Overview: 10/19/16 carotid US - mild stenosis, nonobstructive disease bilaterally PAF (paroxysmal atrial fibrillation) ([facility]) 10/24/2016 Overview: 03/24/16 LINQ implantation Essential [...] VACCINE 2002 ABDOMINAL AORTIC ANEURYSM 2007 SCREENING PNEUMONIA (PCV13/PPSV23) 2007 VACCINES (1 of 2 - PCV13) INFLUENZA VACCINE 02/11/2018 Results Not on filefrom Last 3 Months
[2017-10-12] MEDS ORDERED: LIDOCAINE 2% VISCOUS 15 ML UDC PO ONE (15:15)
[2017-10-12] MEDS ORDERED: ANTACID SUSP 30 ML UDC (MYLANTA) PO ONE (15:15)
[2017-10-12 15:25] LABS: BASOPHILS % (AUTO) 0 % (0-10); BILIRUBIN,URINE NEGATIVE (NEGATIVE); CLARITY,URINE SLIGHTLY CLOUDY; COLOR,URINE YELLOW; EOSINOPHILS # (AUTO) 0.1 10^3/uL (0.0-0.3); EOSINOPHILS % (AUTO) 2 % (0-10); GLUCOSE, URINE (UA) 2+ (NEGATIVE); HEMATOCRIT 35 % (40-54); KETONES,URINE NEGATIVE (NEGATIVE); LEUKOCYTE ESTERASE ,URINE 1+ (NEGATIVE); LYMPHOCYTES # (AUTO) 1.4 X 10^3 (1.0-4.0); LYMPHOCYTES % (AUTO) 30 % (12-44); MEAN CORPUSCULAR HEMOGLOBIN 27 PG (25-34); MEAN CORPUSCULAR HGB CONC 32 G/DL (32-36); MEAN CORPUSCULAR VOLUME 85 FL (80-99); MEAN PLATELET VOLUME 10.2 FL (7.4-10.4); MONOCYTES # (AUTO) 0.4 X 10^3 (0.0-1.0); MONOCYTES % (AUTO) 8 % (0-12); NEUTROPHILS # (AUTO) 2.9 X 10^3 (1.8-7.8); NEUTROPHILS % (AUTO) 61 % (42-75); NITRITE,URINE NEGATIVE (NEGATIVE); PH,URINE 8 (5-9); PLATELET COUNT 255 10^3/uL (130-400); PROTEIN,URINE 1+ (NEGATIVE); RED BLOOD COUNT 4.12 10^6/uL (4.35-5.85); RED CELL DISTRIBUTION WIDTH 16.3 % (10.0-14.5); UROBILINOGEN,URINE NORMAL (NORMAL); WHITE BLOOD COUNT 4.7 10^3/uL (4.3-11.0)
--- NOTE | 2017-10-12 15:25 | ED GI ---
General Chief Complaint: Abdominal/GI Problems Stated Complaint: ABD PAIN Nursing Triage Note: PATIENT STATES THAT HE IS HAVING "STOMACH PAINS." POINTS TO EPIGASTRIC REGION. STATES THAT HE HAS THIS A FEW TIMES A YEAR AND NEEDS HIS GI COCKTAIL. Sepsis Screen: No Definite Risk Source of Information: Patient Exam Limitations: No Limitations History of Present Illness Date Seen by Provider: Oct 12, 2017 Time Seen by Provider: 15:24 Initial Comments to ER with complaints of epigastric abdominal pain, nausea without vomiting, loose stools for about 3 days. States that he gets this a few times a year. No fevers or chills. Timing/Duration: 1-2 Days Severity/Quality: Moderate Location: Epigastric Radiation: No Radiation Activities at Onset: None Associated Symptoms: Nausea/Vomiting Allergies and Home Medications Allergies Coded Allergies: celecoxib (Unverified Allergy, Mild, TAKES ASPIRIN AT HOME, 12/21/14) diclofenac (Unverified Allergy, Mild, TAKES ASPIRIN AT HOME, 12/21/14) naproxen (Unverified Allergy, Mild, TAKES ASPIRIN AT HOME, 12/21/14) rosuvastatin (Unverified Allergy, Mild, 08/14/08) Penicillins (Verified Allergy, Unknown, 08/03/05) amoxicillin (Verified Allergy, Unknown, 08/03/05) fenofibrate (Unverified Allergy, Unknown, 06/05/16) simvastatin (Unverified Allergy, Unknown, 06/05/16) Uncoded Allergies: GEMIFIBOROZIL (Allergy, Unknown, 06/05/16) Home Medications Apixaban 5 Mg Tablet, 5 MG PO BID, (Reported) Apixaban 5 Mg Tablet, 5 MG PO BID, (Reported) Aspirin 81 Mg Tablet.dr, 81 MG PO DAILY, (Reported) Baclofen 10 Mg Tablet, 10 MG PO TID PRN for MUSCLE SPASMS, (Reported) Cilostazol 100 Mg Tablet, 100 MG PO BID, (Reported) Cyclobenzaprine HCl 5 Mg Tablet, 5 MG PO TID PRN for PAIN-MODERATE TO SEVERE Prescribed by: LEONARDO SALGADO on 07/28/17 1500 Digoxin 125 Mcg Tablet, 125 MCG PO DAILY, (Reported) Doxycycline Hyclate 100 Mg Tablet, 100 MG PO BID Prescribed by: CHARO SCHNEIDER on 08/31/17 1635 Dronedarone HCl 400 Mg Tablet, 400 MG PO BID, (Reported) Fenofibrate,Micronized 134 Mg Capsule, 134 MG PO DAILY, (Reported) Gabapentin 300 Mg Capsule, 600 MG PO HS, (Reported) TAKES 2 (300 MG) CAPSULES Insulin Detemir 100 Unit/1 Ml Insuln.pen, 25 UNIT SQ BID, (Reported) Metoprolol Tartrate 25 Mg Tablet, 12.5 MG PO BID, (Reported) TAKES 1/2 OF A (25 MG) TABLET Montelukast Sodium 10 Mg Tablet, 10 MG PO DAILY, (Reported) Nitroglycerin 0.4 Mg Tab.subl, 0.4 MG SL UD PRN for CHEST PAIN, (Reported) MAX OF 3 TABS IN 15 MINUTES / CALL 911 IF PAIN REMAINS AFTER 5 MINUTES Pentoxifylline 400 Mg Tablet.er, 400 MG PO BID, (Reported) Pravastatin Sodium 80 Mg Tablet, 80 MG PO HS, (Reported) Tamsulosin HCl 0.4 Mg Cap.er.24h, 0.4 MG PO DAILY, (Reported) Trazodone HCl 50 Mg Tablet, 50 MG PO HS, (Reported) Patient Home Medication List Home Medication List Reviewed: Yes Review of Systems Constitutional: see HPI EENTM: No Symptoms Reported Respiratory: No Symptoms Reported Cardiovascular: No Symptoms Reported Gastrointestinal: See HPI, Abdominal Pain; Denies Diarrhea; Nausea; Denies Vomiting Genitourinary: No Symptoms Reported Musculoskeletal: no symptoms reported Skin: no symptoms reported Psychiatric/Neurological: No Symptoms Reported Endocrine: No Symptoms Reported Past Rldhrlw-Xeucvr-Kowygl Hx Patient Social History Alcohol Use: Denies Use Alcohol Beverage of Choice: Beer Recreational Drug Use: No Smoking Status: Never a Smoker Type Used: Cigarettes Former Smoker, Quit: Mar 01, 2000 2nd Hand Smoke Exposure: No Recent Foreign Travel: No Contact w/Someone Who Travel: No Recent Infectious Disease Expo: No Recent Hopitalizations: No Immunizations Up To Date Tetanus Booster (TDap): Less than 5yrs PED Vaccines UTD: No Date of Pneumonia Vaccine: Jun 14, 2015 Date of Influenza Vaccine: Feb 12, 2016 Seasonal Allergies Seasonal Allergies: Yes Past Medical History Surgeries: Yes Abdominal, Angioplasty, Cardiac, CABG, Coronary Stent, Eye Surgery, Gallbladder , Joint Replacement, Open Heart Surgery, Orthopedic, Vascular Surgery Respiratory: Yes (CHRONIC DYSPNEA ON EXERTION) Sleep Apnea, COPD Currently Using CPAP: No Currently Using BIPAP: No Cardiac: Yes Atrial Fibrillation, Chronic Edema/Swelling, Coronary Artery Disease, Heart Attack, High Cholesterol, Hypertension, Peripheral Vascular Neurological: Yes (POSSIBLE STROKE/ TIA) Stroke, TIA Reproductive Disorders: No Sexually Transmitted Disease: No HIV/AIDS: No Genitourinary: Yes (RENAL INSUFFICIENCY) Benign Prostatic Hyperpl, Prostate Problems, Renal Failure Gastrointestinal: Yes Abdominal Hernia, Gastroesophageal Reflux, Pancreatitis, Polyps, Gall Bladder Disease Musculoskeletal: Yes (OLECRANON BURSITIS, CHRONIC NECK PAIN, DISH SYNDROME) Degenerate Disk Disease, Arthritis, Chronic Back Pain Endocrine: Yes Diabetes, Insulin dep HEENT: Yes Cataract Loss of Vision: Denies Hearing Impairment: Denies Cancer: No Psychosocial: Yes Anxiety Integumentary: No Blood Disorders: No Adverse Reaction/Blood Tranf: No Family Medical History Cancer G8 BROTHER Cataract 19 FATHER 19 MOTHER G8 BROTHER G8 BROTHER G8 SISTER Congestive heart failure 19 FATHER 19 MOTHER Family history: Arthritis 19 FATHER 19 MOTHER G8 BROTHER G8 BROTHER G8 SISTER G8 SISTER DAUGHTER SON Family history: Breast disease DAUGHTER Family history: Cardiovascular disease 19 FATHER Family history: Diabetes mellitus 19 FATHER G8 BROTHER G8 SISTER Family history: Hypertension 19 FATHER 19 MOTHER G8 BROTHER G8 BROTHER G8 SISTER G8 SISTER DAUGHTER SON Family history: Thyroid disorder DAUGHTER Heart disease 19 FATHER 19 MOTHER G8 BROTHER Hypercholesterolemia 19 FATHER 19 MOTHER G8 BROTHER G8 BROTHER G8 SISTER Myocardial infarction 19 FATHER 19 MOTHER G8 BROTHER No Family History of: Abdominal aortic aneurysm [place]'s disease Alcoholism Aphasia Cancer of colon Chest pain Congenital heart disease Cystic fibrosis Dementia Dysphagia Family history: Allergy Family history: Alzheimer's disease Family history: Asthma Family history: Coronary thrombosis Family history: Gastrointestinal disease Family history: Glaucoma Family history: Osteoporosis Headache Hearing loss Hereditary disease History of - anemia History of - disorder History of - respiratory disease History of drug abuse Human immunodeficiency virus (HIV) seropositivity Infertile Kidney disease Malignant neoplasm of lung Parkinson's disease Prostate cancer Psychotic disorder Seizure disorder Stroke Tuberculosis Visual impairment Physical Exam Vital Signs Vital Signs - First Documented 10/12/17 15:05 Temp 96.8 Pulse 56 Resp 18 B/P (MAP) 103/66 (78) Pulse Ox 98 Capillary Refill : Less Than 3 Seconds General Appearance: WD/WN, no apparent distress HEENT: PERRL/EOMI, normal ENT inspection Neck: non-tender, full range of motion Respiratory: no respiratory distress, no accessory muscle use Cardiovascular: regular rate, rhythm, no murmur Gastrointestinal: normal bowel sounds, soft, tenderness (epigastric) Extremities: normal range of motion, non-tender Neurologic/Psychiatric: alert, normal mood/affect Skin: normal color, warm/dry Progress/Results/Core Measures Results/Orders Lab Results Laboratory Tests Test 10/12/17 15:15 Range/Units White Blood Count 4.7 4.3-11.0 10^3/uL Red Blood Count 4.12 L 4.35-5.85 10^6/uL Hemoglobin 11.0 L 13.3-17.7 G/DL Hematocrit 35 L 40-54 % Mean Corpuscular Volume 85 80-99 FL Mean Corpuscular Hemoglobin 27 25-34 PG Mean Corpuscular Hemoglobin Concent 32 32-36 G/DL Red Cell Distribution Width 16.3 H 10.0-14.5 % Platelet Count 255 130-400 10^3/uL Mean Platelet Volume 10.2 7.4-10.4 FL Neutrophils (%) (Auto) 61 42-75 % Lymphocytes (%) (Auto) 30 12-44 % Monocytes (%) (Auto) 8 0-12 % Eosinophils (%) (Auto) 2 0-10 % Basophils (%) (Auto) 0 0-10 % Neutrophils # (Auto) 2.9 1.8-7.8 X 10^3 Lymphocytes # (Auto) 1.4 1.0-4.0 X 10^3 Monocytes # (Auto) 0.4 0.0-1.0 X 10^3 Eosinophils # (Auto) 0.1 0.0-0.3 10^3/uL Basophils # (Auto) 0.0 0.0-0.1 10^3/uL Urine Color YELLOW Urine Clarity SLIGHTLY CLOUDY Urine pH 8 5-9 Urine Specific [place] 1.010 L 1.016-1.022 Urine Protein 1+ H NEGATIVE Urine Glucose (UA) 2+ H NEGATIVE Urine Ketones NEGATIVE NEGATIVE Urine Nitrite NEGATIVE NEGATIVE Urine Bilirubin NEGATIVE NEGATIVE Urine Urobilinogen NORMAL NORMAL MG/DL Urine Leukocyte Esterase 1+ H NEGATIVE Urine RBC (Auto) NEGATIVE NEGATIVE Urine RBC NONE /HPF Urine WBC 0-2 /HPF Urine Squamous Epithelial Cells 0-2 /HPF Urine Crystals PRESENT H /LPF Urine Amorphous Sediment LARGE DEYVI PHOSPHATE H /LPF Urine Bacteria NEGATIVE /HPF Urine Casts NONE /LPF Urine Mucus SMALL H /LPF Urine Culture Indicated NO Sodium Level 142 135-145 MMOL/L Potassium Level 4.5 3.6-5.0 MMOL/L Chloride Level 110 H 98-107 MMOL/L Carbon Dioxide Level 24 21-32 MMOL/L Anion Gap 8 5-14 MMOL/L Blood Urea Nitrogen 9 7-18 MG/DL Creatinine 1.41 H 0.60-1.30 MG/DL Estimat Glomerular Filtration Rate 49 BUN/Creatinine Ratio 6 Glucose Level 133 H 70-105 MG/DL Calcium Level 9.4 8.5-10.1 MG/DL Total Bilirubin 0.4 0.1-1.0 MG/DL Aspartate Amino Transf (AST/SGOT) 30 5-34 U/L Alanine Aminotransferase (ALT/SGPT) 30 0-55 U/L Alkaline Phosphatase 45 40-136 U/L Total Protein 6.7 6.4-8.2 GM/DL Albumin 4.0 3.2-4.5 GM/DL Lipase 60 8-78 U/L My Orders Orders - LEONARDO SALGADO APRN Cbc With Automated Diff (10/12/17 14:57) Ua Culture If Indicated (10/12/17 14:57) Comprehensive Metabolic Panel (10/12/17 14:57) Lipase (10/12/17 14:57) Iv Heplock-Insert (Order) (10/12/17 14:57) Lidocaine 2% Viscous 15 Ml (Xylocaine Vi (10/12/17 15:15) Antacid Suspension (Mylanta Suspension (10/12/17 15:15) Acute Abd Series (10/12/17 15:25) Medications Given in ED Current Medications Medications Dose Ordered Sig/Alka Route Start Time Stop Time Status Last Admin Dose Admin Al Hydrox/Mg Hydrox/Simethicone 30 ml ONCE ONCE PO 10/12/17 15:15 10/12/17 15:16 DC 10/12/17 15:29 30 ML Lidocaine HCl 15 ml ONCE ONCE PO 10/12/17 15:15 10/12/17 15:16 DC 10/12/17 15:29 15 ML Vital Signs/I&O 10/12/17 15:05 Temp 96.8 Pulse 56 Resp 18 B/P (MAP) 103/66 (78) Pulse Ox 98 Blood Pressure Mean: 78 Departure Communication (Admissions) 1619- his epigastric abdominal pain has completely resolved after the GI cocktail. We will discharge to home. I'll give him a prescription for Carafate Impression Primary Impression: Epigastric abdominal pain Disposition: HOME, SELF-CARE Condition: Improved Departure-Patient Inst. Decision time for Depature: 16:19 Referrals: IRAJ HERRERA MD (PCP/Family) Primary Care Physician Patient Instructions: No Instuctions Given Add. Discharge Instructions: 1. Dissolve the new pills in a medicine cup full of water take this 30 minutes before meals 3 times a day and once again at bedtime.All discharge instructions reviewed with patient and/or family. Voiced understanding. Scripts Sucralfate (Sucralfate) 1 Gm Tablet 1 GM PO ACHS, #40 TAB Prov: LEONARDO SALGADO APRN 10/12/17 LEONARDO SALGADO APRN Oct 12, 2017 15:25
[2017-10-12 15:43] LABS: BACTERIA,URINE NEGATIVE /HPF; SQUAMOUS EPITHELIAL CELL,UR 0-2 /HPF; WBC,URINE 0-2 /HPF
[2017-10-12 15:44] LABS: AMORPHOUS SEDIMENT,UR LARGE AMOR PHOSPHATE /LPF
[2017-10-12 15:48] LABS: BILIRUBIN,TOTAL 0.4 MG/DL (0.1-1.0); CALCIUM 9.4 MG/DL (8.5-10.1); CREATININE SERUM 1.41 MG/DL (0.60-1.30); POTASSIUM 4.5 MMOL/L (3.6-5.0); TOTAL PROTEIN 6.7 GM/DL (6.4-8.2)
--- NOTE | 2017-10-12 16:05 | Diagnostic Imaging Report ---
PATIENT HISTORY: Pain in the upper abdomen. TECHNIQUE: Frontal view of the chest, supine and upright frontal views of the abdomen. COMPARISON: CT from 09/06/2017. FINDINGS: Lung volumes are normal. No focal consolidation is seen. There is no pleural effusion or pneumothorax. The cardiac silhouette is normal in size. Sternotomy wires and post CABG changes are noted. The laboratory monitor device is seen. Gas is seen in both large and small bowel, with no significant distention to suggest obstruction. No large collection of free air seen. Advanced degenerative changes are seen at multiple levels in the lumbar spine. IMPRESSION: 1. No evidence of bowel obstruction or large collection of free air. 2. No acute pulmonary abnormality. Dictated by: Dictated on workstation # [id number]
[2017-10-12] MEDS ORDERED: SUCR1TAB PO (16:22)
[2017-10-12 16:36] VITALS: BP 103/66
== END 2017-10-12 16:40 | disposition home or self-care (01) ==
LOC: EDUNIT# 14:55 → ER 14:56
DX: R10.13 Epigastric pain (principal); G47.30 Sleep apnea, unspecified; J44.9 Chronic obstructive pulmonary disease, unspecified; I48.91 Unspecified atrial fibrillation; I10 Essential (primary) hypertension; I73.9 Peripheral vascular disease, unspecified; E78.00 Pure hypercholesterolemia, unspecified; E11.9 Type 2 diabetes mellitus without complications; F41.9 Anxiety disorder, unspecified; I25.2 Old myocardial infarction; K21.9 Gastro-esophageal reflux disease without esophagitis; I25.10 Atherosclerotic heart disease of native coronary artery without angina pectoris; Z87.19 Personal history of other diseases of the digestive system; Z86.010 Personal history of colon polyps; Z88.0 Allergy status to penicillin; Z82.49 Family history of ischemic heart disease and other diseases of the circulatory system; Z88.1 Allergy status to other antibiotic agents; Z88.8 Allergy status to other drugs, medicaments and biological substances; Z86.73 Personal history of transient ischemic attack (TIA), and cerebral infarction without residual deficits; Z79.01 Long term (current) use of anticoagulants; Z79.82 Long term (current) use of aspirin; Z79.4 Long term (current) use of insulin; Z87.891 Personal history of nicotine dependence; Z95.1 Presence of aortocoronary bypass graft; Z95.5 Presence of coronary angioplasty implant and graft
CPT/HCPCS: 36415; 74022; 80053; 81000; 83690; 85025

== ENCOUNTER 2017-11-11 14:42 | Emergency (ER) | payer MEDICARE, MEDICAID ==
[~2017-11-11] VITALS: Ht 182.9 cm; Wt 85.7 kg
[~2017-11-11 14:42] MED LIST changes: +SUCR1TAB PO; +TRAZ-189 PO; -TRAZ-28 PO
[2017-11-11] MEDS ORDERED: DOXY100C2 (15:25)
--- NOTE | 2017-11-11 16:49 | Diagnostic Imaging Report ---
INDICATION: Cough and congestion x1 week. TECHNIQUE: Two view chest at 4:48 PM CORRELATION STUDY: 10/12/2017 FINDINGS: Poststernotomy and coronary artery bypass changes. Heart size, mediastinum and vasculature within normal limits. Loop recorder over the left heart border. Chronic-type change about the lung parenchyma. No focal infiltrate. Lungs are somewhat hyperinflated. Degenerative changes of bridging osteophytes of the thoracic spine. IMPRESSION: 1. Negative for acute abnormality of the chest. Chronic-type change about the lung parenchyma. Dictated by: Dictated on workstation # [id number]
--- NOTE | 2017-11-11 17:05 | ED Cough/URI ---
General Chief Complaint: Cough/Cold/Flu Symptoms Stated Complaint: CHEST CONGESTION,COUGH,FEVER Nursing Triage Note: AMBULATED TO ROOM 01 WITH COMPLAINTS OF COUGH AND CONGESTION X1 WEEK. WENT TO [facility] ON SUNDAY AND GIVEN DOXY AND GUAIFENESIN. Source: patient Exam Limitations: no limitations History of Present Illness Date Seen by Provider: Nov 11, 2017 Time Seen by Provider: 17:03 Initial Comments cough and congestion for 1 week. Went to [facility] and given doxycyclineand guaifenesin. Timing/Duration: just prior to arrival Severity/Quality: productive cough Associated Symptoms: cough, nasal congestion Allergies and Home Medications Allergies Coded Allergies: celecoxib (Unverified Allergy, Mild, TAKES ASPIRIN AT HOME, 12/21/14) diclofenac (Unverified Allergy, Mild, TAKES ASPIRIN AT HOME, 12/21/14) naproxen (Unverified Allergy, Mild, TAKES ASPIRIN AT HOME, 12/21/14) rosuvastatin (Unverified Allergy, Mild, 08/14/08) Penicillins (Verified Allergy, Unknown, 08/03/05) amoxicillin (Verified Allergy, Unknown, 08/03/05) fenofibrate (Unverified Allergy, Unknown, 06/05/16) simvastatin (Unverified Allergy, Unknown, 06/05/16) Uncoded Allergies: GEMIFIBOROZIL (Allergy, Unknown, 06/05/16) Home Medications Apixaban 5 Mg Tablet, 5 MG PO BID, (Reported) Apixaban 5 Mg Tablet, 5 MG PO BID, (Reported) Aspirin 81 Mg Tablet.dr, 81 MG PO DAILY, (Reported) Baclofen 10 Mg Tablet, 10 MG PO TID PRN for MUSCLE SPASMS, (Reported) Cilostazol 100 Mg Tablet, 100 MG PO BID, (Reported) Cyclobenzaprine HCl 5 Mg Tablet, 5 MG PO TID PRN for PAIN-MODERATE TO SEVERE Prescribed by: LEONARDO SALGADO on 07/28/17 1500 Digoxin 125 Mcg Tablet, 125 MCG PO DAILY, (Reported) Doxycycline Hyclate 100 Mg Tablet, 100 MG PO BID Prescribed by: CHARO SCHNEIDER on 08/31/17 1635 Dronedarone HCl 400 Mg Tablet, 400 MG PO BID, (Reported) Fenofibrate,Micronized 134 Mg Capsule, 134 MG PO DAILY, (Reported) Gabapentin 300 Mg Capsule, 600 MG PO HS, (Reported) TAKES 2 (300 MG) CAPSULES Insulin Detemir 100 Unit/1 Ml Insuln.pen, 25 UNIT SQ BID, (Reported) Metoprolol Tartrate 25 Mg Tablet, 12.5 MG PO BID, (Reported) TAKES 1/2 OF A (25 MG) TABLET Montelukast Sodium 10 Mg Tablet, 10 MG PO DAILY, (Reported) Nitroglycerin 0.4 Mg Tab.subl, 0.4 MG SL UD PRN for CHEST PAIN, (Reported) MAX OF 3 TABS IN 15 MINUTES / CALL 911 IF PAIN REMAINS AFTER 5 MINUTES Pentoxifylline 400 Mg Tablet.er, 400 MG PO BID, (Reported) Pravastatin Sodium 80 Mg Tablet, 80 MG PO HS, (Reported) Sucralfate 1 Gm Tablet, 1 GM PO ACHS Prescribed by: LEONARDO SALGADO on 10/12/17 1622 Tamsulosin HCl 0.4 Mg Cap.er.24h, 0.4 MG PO DAILY, (Reported) Trazodone HCl 50 Mg Tablet, 50 MG PO HS, (Reported) Patient Home Medication List Home Medication List Reviewed: Yes Review of Systems Constitutional: see HPI; No chills, No fever EENTM: see HPI Respiratory: see HPI, cough Cardiovascular: no symptoms reported Genitourinary: no symptoms reported Musculoskeletal: no symptoms reported Skin: no symptoms reported Psychiatric/Neurological: No Symptoms Reported Hematologic/Lymphatic: No Symptoms Reported Past Rtfimje-Kgewkv-Wismsr Hx Patient Social History Alcohol Beverage of Choice: Beer Type Used: Cigarettes Former Smoker, Quit: Mar 01, 2000 2nd Hand Smoke Exposure: No Recent Foreign Travel: No Contact w/Someone Who Travel: No Recent Infectious Disease Expo: No Recent Hopitalizations: No Immunizations Up To Date Tetanus Booster (TDap): Less than 5yrs PED Vaccines UTD: No Date of Pneumonia Vaccine: Jun 14, 2015 Date of Influenza Vaccine: Feb 12, 2016 Seasonal Allergies Seasonal Allergies: Yes Past Medical History Surgeries: Yes Abdominal, Angioplasty, Cardiac, CABG, Coronary Stent, Eye Surgery, Gallbladder , Joint Replacement, Open Heart Surgery, Orthopedic, Vascular Surgery Respiratory: Yes (CHRONIC DYSPNEA ON EXERTION) Sleep Apnea, COPD Currently Using CPAP: No Currently Using BIPAP: No Cardiac: Yes Atrial Fibrillation, Chronic Edema/Swelling, Coronary Artery Disease, Heart Attack, High Cholesterol, Hypertension, Peripheral Vascular Neurological: Yes (POSSIBLE STROKE/ TIA) Stroke, TIA Reproductive Disorders: No Sexually Transmitted Disease: No HIV/AIDS: No Genitourinary: Yes (RENAL INSUFFICIENCY) Benign Prostatic Hyperpl, Prostate Problems, Renal Failure Gastrointestinal: Yes Abdominal Hernia, Gastroesophageal Reflux, Pancreatitis, Polyps, Gall Bladder Disease Musculoskeletal: Yes (OLECRANON BURSITIS, CHRONIC NECK PAIN, DISH SYNDROME) Degenerate Disk Disease, Arthritis, Chronic Back Pain Endocrine: Yes Diabetes, Insulin dep HEENT: Yes Cataract Loss of Vision: Denies Hearing Impairment: Denies Cancer: No Psychosocial: Yes Anxiety Integumentary: No Blood Disorders: No Adverse Reaction/Blood Tranf: No Family Medical History Cancer G8 BROTHER Cataract 19 FATHER 19 MOTHER G8 BROTHER G8 BROTHER G8 SISTER Congestive heart failure 19 FATHER 19 MOTHER Family history: Arthritis 19 FATHER 19 MOTHER G8 BROTHER G8 BROTHER G8 SISTER G8 SISTER DAUGHTER SON Family history: Breast disease DAUGHTER Family history: Cardiovascular disease 19 FATHER Family history: Diabetes mellitus 19 FATHER G8 BROTHER G8 SISTER Family history: Hypertension 19 FATHER 19 MOTHER G8 BROTHER G8 BROTHER G8 SISTER G8 SISTER DAUGHTER SON Family history: Thyroid disorder DAUGHTER Heart disease 19 FATHER 19 MOTHER G8 BROTHER Hypercholesterolemia 19 FATHER 19 MOTHER G8 BROTHER G8 BROTHER G8 SISTER Myocardial infarction 19 FATHER 19 MOTHER G8 BROTHER No Family History of: Abdominal aortic aneurysm Robel's disease Alcoholism Aphasia Cancer of colon Chest pain Congenital heart disease Cystic fibrosis Dementia Dysphagia Family history: Allergy Family history: Alzheimer's disease Family history: Asthma Family history: Coronary thrombosis Family history: Gastrointestinal disease Family history: Glaucoma Family history: Osteoporosis Headache Hearing loss Hereditary disease History of - anemia History of - disorder History of - respiratory disease History of drug abuse Human immunodeficiency virus (HIV) seropositivity Infertile Kidney disease Malignant neoplasm of lung Parkinson's disease Prostate cancer Psychotic disorder Seizure disorder Stroke Tuberculosis Visual impairment Physical Exam Vital Signs Vital Signs - First Documented 11/11/17 15:12 Temp 97.5 Pulse 70 Resp 16 B/P (MAP) 94/71 (79) Pulse Ox 97 O2 Delivery Room Air Capillary Refill : Less Than 3 Seconds General Appearance: WD/WN, no apparent distress Eyes: Bilateral Eye Normal Inspection, Bilateral Eye PERRL, Bilateral Eye EOMI HEENT: PERRL/EOMI, normal ENT inspection Neck: non-tender, full range of motion Respiratory: lungs clear, normal breath sounds, no respiratory distress, no accessory muscle use Cardiovascular: regular rate, rhythm, no murmur Gastrointestinal: normal bowel sounds, non tender, soft Neurologic/Psychiatric: alert, normal mood/affect, oriented x 3 Skin: normal color, warm/dry Progress/Results/Core Measures Suspected Sepsis Recent Fever Within 48 Hours: No Infection Criteria Present: Documented Infection New/Unexplained Altered Menta: No Sepsis Screen: No Definite Risk SIRS Temperature:97.5 Pulse: 70 Respiratory Rate: 16 Blood Pressure 94 /71 Mean: 79 Results/Orders My Orders Orders - LEONARDO SALGADO APRN Ekg Tracing (11/11/17 16:08) Chest Pa/Lat (2 View) (11/11/17 16:15) Vital Signs/I&O 11/11/17 15:12 Temp 97.5 Pulse 70 Resp 16 B/P (MAP) 94/71 (79) Pulse Ox 97 O2 Delivery Room Air Capillary Refill : Less Than 3 Seconds Blood Pressure Mean: 79 Departure Impression Primary Impression: Upper respiratory infection Disposition: 01 HOME, SELF-CARE Condition: Stable Departure-Patient Inst. Decision time for Depature: 17:05 Referrals: IRAJ HERRERA MD (PCP/Family) Primary Care Physician Patient Instructions: Cough, Adult (DC) Add. Discharge Instructions: All discharge instructions reviewed with patient and/or family. Voiced understanding. Scripts Methylprednisolone (Medrol) 4 Mg Tab.ds.pk 4 MG PO UD, #1 PKG Prov: LEONARDO SALGADO APRN 11/11/17 LEONARDO SALGADO APRN Nov 11, 2017 17:05
[2017-11-11 17:10] VITALS: BP 94/71
[2017-11-11] MEDS ORDERED: METH4TAB PO (17:13)
== END 2017-11-11 17:10 | disposition home or self-care (01) ==
LOC: EDUNIT# 14:42 → ER 14:44
DX: J06.9 Acute upper respiratory infection, unspecified (principal); G47.30 Sleep apnea, unspecified; J44.9 Chronic obstructive pulmonary disease, unspecified; E11.59 Type 2 diabetes mellitus with other circulatory complications; I73.9 Peripheral vascular disease, unspecified; I10 Essential (primary) hypertension; E78.00 Pure hypercholesterolemia, unspecified; I25.2 Old myocardial infarction; I25.10 Atherosclerotic heart disease of native coronary artery without angina pectoris; F41.9 Anxiety disorder, unspecified; I48.91 Unspecified atrial fibrillation; Z88.0 Allergy status to penicillin; Z88.8 Allergy status to other drugs, medicaments and biological substances; Z88.1 Allergy status to other antibiotic agents; Z86.73 Personal history of transient ischemic attack (TIA), and cerebral infarction without residual deficits; Z82.49 Family history of ischemic heart disease and other diseases of the circulatory system; Z87.448 Personal history of other diseases of urinary system; Z79.01 Long term (current) use of anticoagulants; Z79.82 Long term (current) use of aspirin; Z79.4 Long term (current) use of insulin; Z87.891 Personal history of nicotine dependence; Z95.1 Presence of aortocoronary bypass graft; Z95.5 Presence of coronary angioplasty implant and graft
CPT/HCPCS: 71046; 93005

== ENCOUNTER → 2017-12-21 | Outpatient (CLI) | payer MEDICARE, MEDICAID ==
[~2017-12-21] MED LIST changes: +CEFU250T80 PO; +DOXY100C2; +RT-ALBUTEROL SULF 2.5 MG/3 ML PRE-MIX VIAL INH ONE; +RT-ALBUTEROL SULF 2.5 MG/3 ML PRE-MIX VIAL INH SCH
--- NOTE | 2017-12-21 15:19 | Diagnostic Imaging Report ---
PROCEDURE: CT chest without contrast. TECHNIQUE: Multiple contiguous axial images were obtained through the chest without the use of intravenous contrast. INDICATION: Shortness of air and cough for three months. COMPARISON: No prior CT chest study is available for comparison. FINDINGS: Changes of median sternotomy are noted. No axillary lymphadenopathy is identified. No definite hilar or mediastinal lymphadenopathy is detected. There are coronary arterial calcifications present. No pericardial or pleural fluid is identified. The central airways are patent. The lungs are clear. No pulmonary nodules, infiltrates or masses are seen. Bony structures are nonacute. The upper abdomen is unremarkable. IMPRESSION: Unremarkable noncontrast CT of the chest. Dictated by: Dictated on workstation # [id number]
== END ==
LOC: RT 13:33
PROVIDERS: ATTEND Family Medicine
DX: R05 Cough (principal)
CPT/HCPCS: 71250; 94060; 94726; 94729

== ENCOUNTER 2017-12-27 17:39 | Emergency (ER) | payer MEDICARE, MEDICAID ==
[~2017-12-27] VITALS: Ht 180.3 cm; Wt 85.3 kg
[~2017-12-27 17:39] MED LIST changes: -CEFU250T80 PO; -RT-ALBUTEROL SULF 2.5 MG/3 ML PRE-MIX VIAL INH ONE; -RT-ALBUTEROL SULF 2.5 MG/3 ML PRE-MIX VIAL INH SCH
--- NOTE | 2017-12-27 17:50 | ED Chest Pain ---
General Stated Complaint: R SHOULDER PAIN Source: patient Exam Limitations: no limitations History of Present Illness Date Seen by Provider: Dec 27, 2017 Time Seen by Provider: 17:48 Initial Comments To ER with reports of right lateral upper abdominal pain radiating to the right shoulder and across to the left shoulder. He denies any shortness of breath. He has had a cough for about 2 months. No fevers or chills. This particular pain is been present for 3-4 days. No known preceding injury Timing/Duration: 3-4 days Severity/Quality: moderate Radiation: no radiation Activities at Onset: none ASA po TECHNICAL SUPPORT SPECIALIST: No NTG SL TECHNICAL SUPPORT SPECIALIST: No Allergies and Home Medications Allergies Coded Allergies: celecoxib (Unverified Allergy, Mild, TAKES ASPIRIN AT HOME, 12/21/14) diclofenac (Unverified Allergy, Mild, TAKES ASPIRIN AT HOME, 12/21/14) naproxen (Unverified Allergy, Mild, TAKES ASPIRIN AT HOME, 12/21/14) rosuvastatin (Unverified Allergy, Mild, 08/14/08) Penicillins (Verified Allergy, Unknown, 08/03/05) amoxicillin (Verified Allergy, Unknown, 08/03/05) fenofibrate (Unverified Allergy, Unknown, 06/05/16) simvastatin (Unverified Allergy, Unknown, 06/05/16) Uncoded Allergies: GEMIFIBOROZIL (Allergy, Unknown, 06/05/16) Home Medications Apixaban 5 Mg Tablet, 5 MG PO BID, (Reported) Apixaban 5 Mg Tablet, 5 MG PO BID, (Reported) Aspirin 81 Mg Tablet.dr, 81 MG PO DAILY, (Reported) Baclofen 10 Mg Tablet, 10 MG PO TID PRN for MUSCLE SPASMS, (Reported) Cilostazol 100 Mg Tablet, 100 MG PO BID, (Reported) Cyclobenzaprine HCl 5 Mg Tablet, 5 MG PO TID PRN for PAIN-MODERATE TO SEVERE Prescribed by: LEONARDO SALGADO on 07/28/17 1500 Digoxin 125 Mcg Tablet, 125 MCG PO DAILY, (Reported) Doxycycline Hyclate 100 Mg Tablet, 100 MG PO BID Prescribed by: CHARO SCHNEIDER on 08/31/17 1635 Dronedarone HCl 400 Mg Tablet, 400 MG PO BID, (Reported) Fenofibrate,Micronized 134 Mg Capsule, 134 MG PO DAILY, (Reported) Gabapentin 300 Mg Capsule, 600 MG PO HS, (Reported) TAKES 2 (300 MG) CAPSULES Insulin Detemir 100 Unit/1 Ml Insuln.pen, 25 UNIT SQ BID, (Reported) Methylprednisolone 4 Mg Tab.ds.pk, 4 MG PO UD Prescribed by: LEONARDO SALGADO on 11/11/17 1713 Metoprolol Tartrate 25 Mg Tablet, 12.5 MG PO BID, (Reported) TAKES 1/2 OF A (25 MG) TABLET Montelukast Sodium 10 Mg Tablet, 10 MG PO DAILY, (Reported) Nitroglycerin 0.4 Mg Tab.subl, 0.4 MG SL UD PRN for CHEST PAIN, (Reported) MAX OF 3 TABS IN 15 MINUTES / CALL 911 IF PAIN REMAINS AFTER 5 MINUTES Pentoxifylline 400 Mg Tablet.er, 400 MG PO BID, (Reported) Pravastatin Sodium 80 Mg Tablet, 80 MG PO HS, (Reported) Sucralfate 1 Gm Tablet, 1 GM PO ACHS Prescribed by: LEONARDO SALGADO on 10/12/17 1622 Tamsulosin HCl 0.4 Mg Cap.er.24h, 0.4 MG PO DAILY, (Reported) Trazodone HCl 50 Mg Tablet, 50 MG PO HS, (Reported) Patient Home Medication List Home Medication List Reviewed: Yes Review of Systems Constitutional: see HPI; No chills, No fever EENTM: No Symptoms Reported Respiratory: See HPI, Cough Cardiovascular: See HPI, Chest Pain Gastrointestinal: See HPI Genitourinary: No Symptoms Reported Musculoskeletal: no symptoms reported Skin: no symptoms reported Psychiatric/Neurological: No Symptoms Reported Endocrine: No Symptoms Reported Past Mdbmnmw-Dgzvmr-Afrhfh Hx Patient Social History Alcohol Beverage of Choice: Beer Type Used: Cigarettes Former Smoker, Quit: Mar 01, 2000 2nd Hand Smoke Exposure: No Recent Hopitalizations: No Immunizations Up To Date Tetanus Booster (TDap): Less than 5yrs PED Vaccines UTD: No Date of Pneumonia Vaccine: Jun 14, 2015 Date of Influenza Vaccine: Feb 12, 2016 Seasonal Allergies Seasonal Allergies: Yes Past Medical History Surgeries: Yes Abdominal, Angioplasty, Cardiac, CABG, Coronary Stent, Eye Surgery, Gallbladder , Joint Replacement, Open Heart Surgery, Orthopedic, Vascular Surgery Respiratory: Yes (CHRONIC DYSPNEA ON EXERTION) Sleep Apnea, COPD Currently Using CPAP: No Currently Using BIPAP: No Cardiac: Yes Atrial Fibrillation, Chronic Edema/Swelling, Coronary Artery Disease, Heart Attack, High Cholesterol, Hypertension, Peripheral Vascular Neurological: Yes (POSSIBLE STROKE/ TIA) Stroke, TIA Reproductive Disorders: No Sexually Transmitted Disease: No HIV/AIDS: No Genitourinary: Yes (RENAL INSUFFICIENCY) Benign Prostatic Hyperpl, Prostate Problems, Renal Failure Gastrointestinal: Yes Abdominal Hernia, Gastroesophageal Reflux, Pancreatitis, Polyps, Gall Bladder Disease Musculoskeletal: Yes (OLECRANON BURSITIS, CHRONIC NECK PAIN, DISH SYNDROME) Degenerate Disk Disease, Arthritis, Chronic Back Pain Endocrine: Yes Diabetes, Insulin dep HEENT: Yes Cataract Loss of Vision: Denies Hearing Impairment: Denies Cancer: No Psychosocial: Yes Anxiety Integumentary: No Blood Disorders: No Adverse Reaction/Blood Tranf: No Family Medical History Cancer G8 BROTHER Cataract 19 FATHER 19 MOTHER G8 BROTHER G8 BROTHER G8 SISTER Congestive heart failure 19 FATHER 19 MOTHER Family history: Arthritis 19 FATHER 19 MOTHER G8 BROTHER G8 BROTHER G8 SISTER G8 SISTER DAUGHTER SON Family history: Breast disease DAUGHTER Family history: Cardiovascular disease 19 FATHER Family history: Diabetes mellitus 19 FATHER G8 BROTHER G8 SISTER Family history: Hypertension 19 FATHER 19 MOTHER G8 BROTHER G8 BROTHER G8 SISTER G8 SISTER DAUGHTER SON Family history: Thyroid disorder DAUGHTER Heart disease 19 FATHER 19 MOTHER G8 BROTHER Hypercholesterolemia 19 FATHER 19 MOTHER G8 BROTHER G8 BROTHER G8 SISTER Myocardial infarction 19 FATHER 19 MOTHER G8 BROTHER No Family History of: Abdominal aortic aneurysm Patillas's disease Alcoholism Aphasia Cancer of colon Chest pain Congenital heart disease Cystic fibrosis Dementia Dysphagia Family history: Allergy Family history: Alzheimer's disease Family history: Asthma Family history: Coronary thrombosis Family history: Gastrointestinal disease Family history: Glaucoma Family history: Osteoporosis Headache Hearing loss Hereditary disease History of - anemia History of - disorder History of - respiratory disease History of drug abuse Human immunodeficiency virus (HIV) seropositivity Infertile Kidney disease Malignant neoplasm of lung Parkinson's disease Prostate cancer Psychotic disorder Seizure disorder Stroke Tuberculosis Visual impairment Physical Exam Vital Signs Vital Signs - First Documented 12/27/17 17:57 Temp 97.4 Pulse 67 Resp 20 B/P (MAP) 128/64 (85) Pulse Ox 97 Capillary Refill : Height, Weight, BMI Height: 6'0" Weight: 189lbs. 0oz. 85.398471hb; 26.1 BMI Method:Stated General Appearance: No Apparent Distress, WD/WN HEENT: PERRL/EOMI, TMs Normal Neck: Full Range of Motion, Normal Inspection Respiratory: Lungs Clear, Normal Breath Sounds, No Accessory Muscle Use, No Respiratory Distress Cardiovascular: Regular Rate, Rhythm, No Edema Gastrointestinal: Non Tender, Soft Extremity: Normal Capillary Refill, Normal Inspection Neurologic/Psychiatric: Alert, Oriented x3 Skin: Normal Color, Warm/Dry Progress/Results/Core Measures Results/Orders Lab Results Laboratory Tests Test 12/27/17 17:53 Range/Units White Blood Count 6.5 4.3-11.0 10^3/uL Red Blood Count 3.78 L 4.35-5.85 10^6/uL Hemoglobin 10.6 L 13.3-17.7 G/DL Hematocrit 33 L 40-54 % Mean Corpuscular Volume 88 80-99 FL Mean Corpuscular Hemoglobin 28 25-34 PG Mean Corpuscular Hemoglobin Concent 32 32-36 G/DL Red Cell Distribution Width 14.9 H 10.0-14.5 % Platelet Count 303 130-400 10^3/uL Mean Platelet Volume 9.5 7.4-10.4 FL Neutrophils (%) (Auto) 69 42-75 % Lymphocytes (%) (Auto) 22 12-44 % Monocytes (%) (Auto) 8 0-12 % Eosinophils (%) (Auto) 1 0-10 % Basophils (%) (Auto) 0 0-10 % Neutrophils # (Auto) 4.5 1.8-7.8 X 10^3 Lymphocytes # (Auto) 1.4 1.0-4.0 X 10^3 Monocytes # (Auto) 0.5 0.0-1.0 X 10^3 Eosinophils # (Auto) 0.1 0.0-0.3 10^3/uL Basophils # (Auto) 0.0 0.0-0.1 10^3/uL Sodium Level 139 135-145 MMOL/L Potassium Level 4.0 3.6-5.0 MMOL/L Chloride Level 109 H 98-107 MMOL/L Carbon Dioxide Level 23 21-32 MMOL/L Anion Gap 7 5-14 MMOL/L Blood Urea Nitrogen 12 7-18 MG/DL Creatinine 1.63 H 0.60-1.30 MG/DL Estimat Glomerular Filtration Rate 41 BUN/Creatinine Ratio 7 Glucose Level 97 70-105 MG/DL Calcium Level 9.8 8.5-10.1 MG/DL Corrected Calcium 9.6 8.5-10.1 MG/DL Total Bilirubin 0.5 0.1-1.0 MG/DL Aspartate Amino Transf (AST/SGOT) 29 5-34 U/L Alanine Aminotransferase (ALT/SGPT) 24 0-55 U/L Alkaline Phosphatase 50 40-136 U/L Troponin I < 0.30 <0.30 NG/ML Total Protein 7.2 6.4-8.2 GM/DL Albumin 4.3 3.2-4.5 GM/DL Lipase 43 8-78 U/L My Orders Orders - LEONARDO SALGADO APRN Cbc With Automated Diff (12/27/17 17:47) Troponin I (12/27/17 17:47) Chest Pa/Lat (2 View) (12/27/17 17:47) Comprehensive Metabolic Panel (12/27/17 17:47) Ekg Tracing (12/27/17 17:47) Iv Heplock-Insert (Order) (12/27/17 17:47) Lipase (12/27/17 17:47) Vital Signs/I&O 12/27/17 17:57 Temp 97.4 Pulse 67 Resp 20 B/P (MAP) 128/64 (85) Pulse Ox 97 Departure Communication (Admissions) Family Conversation 1846- despite 3-4 days of constant pain in his troponin remains negative. There are no ischemic changes on EKG. His cough of 2 months duration with smoking history up with him on a course of Ceftin antibiotics. NAME: CASTRO PADRON [facility] REC#: [id number] PT STATUS: REG ER : 1940 PHYSICIAN: LEONARDO SALGADO APRN ADMIT DATE: 12/27/17/ER Draft Date of Exam:12/27/17 CHEST PA/LAT (2 VIEW) INDICATION: Chest and shoulder pain. COMPARISON: 11/11/2017. EXAMINATION: Two views of the chest were obtained. FINDINGS: PA and lateral views of the chest show the lungs to be well-aerated with mild air trapping. Median sternotomy changes are present. Heart is not enlarged. There are no infiltrates or masses. No evidence of pneumothorax or pleural effusion. No bony abnormality. child monitor again noted overlying the chest. IMPRESSION: Mild obstructive pulmonary disease with postoperative changes. No acute abnormality. Dictated on workstation # [id number] Dict: 12/27/17 1833 Trans: 12/27/17 1841 [facility] [id number] Interpreted by: MARLA HENDERSON MD Electronically signed by: Impression Primary Impression: Chest wall pain Disposition: 01 HOME, SELF-CARE Condition: Stable Departure-Patient Inst. Decision time for Depature: 18:45 Referrals: IRAJ HERRERA MD (PCP/Family) Primary Care Physician Patient Instructions: Chest Pain (DC) Add. Discharge Instructions: 1. Return to ER for any concerns 2. Follow-up with your doctor next week 3. Scripts Cefuroxime Axetil (Cefuroxime) 250 Mg Tablet 250 MG PO BID, #10 TAB Prov: LEONARDO SALGADO APRN 12/27/17 Images Torso/Trunk 1 - Other-See Progress Note 2 - Other-See Progress Note LEONARDO SALGADO APRN Dec 27, 2017 17:50
[2017-12-27 18:00] LABS: BASOPHILS % (AUTO) 0 % (0-10); EOSINOPHILS # (AUTO) 0.1 10^3/uL (0.0-0.3); EOSINOPHILS % (AUTO) 1 % (0-10); HEMATOCRIT 33 % (40-54); HEMOGLOBIN 10.6 G/DL (13.3-17.7); LYMPHOCYTES # (AUTO) 1.4 X 10^3 (1.0-4.0); LYMPHOCYTES % (AUTO) 22 % (12-44); MEAN CORPUSCULAR HEMOGLOBIN 28 PG (25-34); MEAN CORPUSCULAR HGB CONC 32 G/DL (32-36); MEAN CORPUSCULAR VOLUME 88 FL (80-99); MEAN PLATELET VOLUME 9.5 FL (7.4-10.4); MONOCYTES # (AUTO) 0.5 X 10^3 (0.0-1.0); MONOCYTES % (AUTO) 8 % (0-12); NEUTROPHILS # (AUTO) 4.5 X 10^3 (1.8-7.8); NEUTROPHILS % (AUTO) 69 % (42-75); PLATELET COUNT 303 10^3/uL (130-400); RED BLOOD COUNT 3.78 10^6/uL (4.35-5.85); RED CELL DISTRIBUTION WIDTH 14.9 % (10.0-14.5); WHITE BLOOD COUNT 6.5 10^3/uL (4.3-11.0)
[2017-12-27 18:21] LABS: ALANINE AMINOTRANSFERASE 24 U/L (0-55); ALBUMIN 4.3 GM/DL (3.2-4.5); ALKALINE PHOSPHATASE 50 U/L (40-136); BILIRUBIN,TOTAL 0.5 MG/DL (0.1-1.0); BUN/CREATININE RATIO 7; CALCIUM 9.8 MG/DL (8.5-10.1); CARBON DIOXIDE 23 MMOL/L (21-32); CHLORIDE 109 MMOL/L (98-107); CREATININE SERUM 1.63 MG/DL (0.60-1.30); GFR ESTIMATED 41; GLUCOSE 97 MG/DL (70-105); LIPASE 43 U/L (8-78); SODIUM 139 MMOL/L (135-145); TOTAL PROTEIN 7.2 GM/DL (6.4-8.2)
--- NOTE | 2017-12-27 18:42 | Diagnostic Imaging Report ---
INDICATION: Chest and shoulder pain. COMPARISON: 11/11/2017. EXAMINATION: Two views of the chest were obtained. FINDINGS: PA and lateral views of the chest show the lungs to be well-aerated with mild air trapping. Median sternotomy changes are present. Heart is not enlarged. There are no infiltrates or masses. No evidence of pneumothorax or pleural effusion. No bony abnormality. clinical research monitor again noted overlying the chest. IMPRESSION: Mild obstructive pulmonary disease with postoperative changes. No acute abnormality. Dictated by: Dictated on workstation # [id number]
[2017-12-27] MEDS ORDERED: CEFU250T80 PO (18:46)
[2017-12-27 18:59] VITALS: BP 121/84
--- OUTSIDE RECORDS SUMMARY | 2017-12-28 11:39 | XMS REPORT | Clinical Summary ---
Author Author [facility] Organization [facility] Address Unknown Phone Unavailable Care Team Providers Care Chemistry Intern Name Role Phone Chance Ward PCP Source Comments Some departments are not documenting in the electronic medical record. If you do not see the information that you expected, contact Release of Information in the Health Information Management department at [phone] for further assistance in locating additional records.[facility] Allergies Not on File Current Medications [...] Problem Noted Date Coronary artery disease involving knik coronary artery 10/24/2016 Overview: 2000 CABG x 4 02/17/12 PTCA BMS to vein graft to the OM 03/02/16 severe in-stent restenosis in the SVG to the OM with successful PCI, no residual stenosis, patent VG to RCA VG to the diag artery and AMANDA to the LAD occluded knik vessels proximally, small vessel disease distally 09/25/16 [facility] - severe knik disease, patent graft to RCA, diagonal LAD, probably occluded graft to OM - felt to be reason for chest pain in stent severe restenosis in the SVG to OM with successfull PCI, no residual disease PVD (peripheral vascular disease) ([facility]) 10/24/2016 Overview: 03/02/16 peripheral angio: severe PAD with total occlusion of the post tibial and peroneal artery at the trifurcation, level reconstructed by collateral down at the ankle with occlusion at the ant tibial artery at the ankle level. Mod PAD on LLE down to the trifurcation Carotid artery disease ([facility]) 10/24/2016 Overview: 10/19/16 carotid US - mild stenosis, nonobstructive disease bilaterally PAF (paroxysmal atrial fibrillation) ([facility]) 10/24/2016 Overview: 03/24/16 LINQ implantation Essential [...] VACCINE 1959 COLORECTAL CANCER 1992 SCREENING SHINGLES RECOMBINANT 1992 VACCINE (1 of 2) ABDOMINAL AORTIC ANEURYSM 2007 SCREENING PNEUMONIA (PCV13/PPSV23) 2007 VACCINES (1 of 2 - PCV13) INFLUENZA VACCINE 02/11/2018 Results Not on filefrom Last 3 Months
== END 2017-12-27 18:59 | disposition home or self-care (01) ==
LOC: EDUNIT# 17:39 → ER 17:41
DX: R07.89 Other chest pain (principal); G47.30 Sleep apnea, unspecified; J44.9 Chronic obstructive pulmonary disease, unspecified; I48.91 Unspecified atrial fibrillation; I25.10 Atherosclerotic heart disease of native coronary artery without angina pectoris; I25.2 Old myocardial infarction; E78.00 Pure hypercholesterolemia, unspecified; I10 Essential (primary) hypertension; E11.51 Type 2 diabetes mellitus with diabetic peripheral angiopathy without gangrene; I73.9 Peripheral vascular disease, unspecified; F41.9 Anxiety disorder, unspecified; K21.9 Gastro-esophageal reflux disease without esophagitis; Z87.19 Personal history of other diseases of the digestive system; Z86.73 Personal history of transient ischemic attack (TIA), and cerebral infarction without residual deficits; Z82.49 Family history of ischemic heart disease and other diseases of the circulatory system; Z98.61 Coronary angioplasty status; Z95.1 Presence of aortocoronary bypass graft; Z95.5 Presence of coronary angioplasty implant and graft; Z88.1 Allergy status to other antibiotic agents; Z88.0 Allergy status to penicillin; Z88.8 Allergy status to other drugs, medicaments and biological substances; Z79.01 Long term (current) use of anticoagulants; Z79.82 Long term (current) use of aspirin; Z79.4 Long term (current) use of insulin; Z87.891 Personal history of nicotine dependence
CPT/HCPCS: 36415; 71046; 80053; 83690; 84484; 85025; 93005

== ENCOUNTER 2018-01-13 21:51 | Emergency (ER) | payer MEDICARE, MEDICAID ==
[~2018-01-13] VITALS: Ht 182.9 cm; Wt 85.3 kg
[~2018-01-13 21:51] MED LIST changes: +CEFU250T80 PO; +HYDR-4226 PO; -HYDR-757 PO
--- OUTSIDE RECORDS SUMMARY | 2018-01-13 22:01 | XMS REPORT | Clinical Summary ---
Author Author [facility] Organization [facility] Address Unknown Phone Unavailable Care Team Providers Care Infrastructure Manager Name Role Phone Chance Ward PCP Source Comments Some departments are not documenting in the electronic medical record. If you do not see the information that you expected, contact Release of Information in the Health Information Management department at [phone] for further assistance in locating additional records.[facility] Allergies Not on File Current [...] Problem Noted Date Coronary artery disease involving [place] coronary artery 10/24/2016 Overview: 2000 CABG x 4 02/17/12 PTCA BMS to vein graft to the OM 03/02/16 severe in-stent restenosis in the SVG to the OM with successful PCI, no residual stenosis, patent VG to RCA VG to the diag artery and AMANDA to the LAD occluded [place] vessels proximally, small vessel disease distally 09/25/16 [facility] - severe [place] disease, patent graft to RCA, diagonal LAD, probably occluded graft to OM - felt to be reason for chest pain in stent severe restenosis in the SVG to OM with successfull PCI, no residual disease PVD (peripheral vascular disease) ([facility]) 10/24/2016 Overview: 03/02/16 peripheral angio: severe PAD with total occlusion of the post tibial and peroneal artery at the trifurcation, level reconstructed by collateral down at the ankle with occlusion at the ant tibial artery at the ankle level. Mod PAD on LLE down to the trifurcation Carotid artery disease ([facility]) 10/24/2016 Overview: 10/19/16 carotid US - mild stenosis, nonobstructive disease bilaterally PAF (paroxysmal atrial fibrillation) ([facility]) 10/24/2016 Overview: 03/24/16 LINQ implantation Essential [...]
--- NOTE | 2018-01-13 22:18 | ED Cough/URI ---
General Chief Complaint: Cough/Cold/Flu Symptoms Stated Complaint: UPPER ABD PAIN Source: patient Exam Limitations: no limitations History of Present Illness Date Seen by Provider: Jan 13, 2018 Time Seen by Provider: 22:16 Initial Comments Patient is a 77-year-old male who presents to the emergency room with his with complaints of a productive cough for 3 months. He reports seeing his primary care provider Dr. 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 He is in no acute distress tonight he just was looking for answers and would like some relief coughing. Denies shortness of breath, chest pain, dizziness, fevers. Timing/Duration: other (3 months) Severity/Quality: productive cough, sputum Prior Episodes/Possible Cause: chronic episodes Modifying Factors: Worse With Albuterol Inhaler, Worse With Albuterol Nebulizer , Worse With Antibiotics; Improves With Coughing Associated Symptoms: cough Allergies and Home Medications Allergies Coded Allergies: celecoxib (Unverified Allergy, Mild, TAKES ASPIRIN AT HOME, 12/21/14) diclofenac (Unverified Allergy, Mild, TAKES ASPIRIN AT HOME, 12/21/14) naproxen (Unverified Allergy, Mild, TAKES ASPIRIN AT HOME, 12/21/14) rosuvastatin (Unverified Allergy, Mild, 08/14/08) Penicillins (Verified Allergy, Unknown, 08/03/05) amoxicillin (Verified Allergy, Unknown, 08/03/05) fenofibrate (Unverified Allergy, Unknown, 06/05/16) simvastatin (Unverified Allergy, Unknown, 06/05/16) Uncoded Allergies: GEMIFIBOROZIL (Allergy, Unknown, 06/05/16) Home Medications Apixaban 5 Mg Tablet, 5 MG PO BID, (Reported) Apixaban 5 Mg Tablet, 5 MG PO BID, (Reported) Aspirin 81 Mg Tablet.dr, 81 MG PO DAILY, (Reported) Baclofen 10 Mg Tablet, 10 MG PO TID PRN for MUSCLE SPASMS, (Reported) Benzonatate 100 Mg Capsule, 100 MG PO Q8H Prescribed by: JOSEE REICH on 01/13/182257 Cefuroxime Axetil 250 Mg Tablet, 250 MG PO BID Prescribed by: LEONARDO SALGADO on 12/27/17 184 Cilostazol 100 Mg Tablet, 100 MG PO BID, (Reported) Cyclobenzaprine HCl 5 Mg Tablet, 5 MG PO TID PRN for PAIN-MODERATE TO SEVERE Prescribed by: LEONARDO SALGADO on 07/28/17 1500 Digoxin 125 Mcg Tablet, 125 MCG PO DAILY, (Reported) Doxycycline Hyclate 100 Mg Tablet, 100 MG PO BID Prescribed by: CHARO SCHNEIDER on 08/31/17 1635 Dronedarone HCl 400 Mg Tablet, 400 MG PO BID, (Reported) Fenofibrate,Micronized 134 Mg Capsule, 134 MG PO DAILY, (Reported) Gabapentin 300 Mg Capsule, 600 MG PO HS, (Reported) TAKES 2 (300 MG) CAPSULES Insulin Detemir 100 Unit/1 Ml Insuln.pen, 25 UNIT SQ BID, (Reported) Methylprednisolone 4 Mg Tab.ds.pk, 4 MG PO UD Prescribed by: LEONARDO SALGADO on 11/11/17 1713 Metoprolol Tartrate 25 Mg Tablet, 12.5 MG PO BID, (Reported) TAKES 1/2 OF A (25 MG) TABLET Montelukast Sodium 10 Mg Tablet, 10 MG PO DAILY, (Reported) Nitroglycerin 0.4 Mg Tab.subl, 0.4 MG SL UD PRN for CHEST PAIN, (Reported) MAX OF 3 TABS IN 15 MINUTES / CALL 911 IF PAIN REMAINS AFTER 5 MINUTES Pentoxifylline 400 Mg Tablet.er, 400 MG PO BID, (Reported) Pravastatin Sodium 80 Mg Tablet, 80 MG PO HS, (Reported) Sucralfate 1 Gm Tablet, 1 GM PO ACHS Prescribed by: LEONARDO SALGADO on 10/12/17 1622 Tamsulosin HCl 0.4 Mg Cap.er.24h, 0.4 MG PO DAILY, (Reported) Trazodone HCl 50 Mg Tablet, 50 MG PO HS, (Reported) Patient Home Medication List Home Medication List Reviewed: Yes Review of Systems Review of Systems Constitutional: see HPI; No chills, No fever Respiratory: see HPI, cough, phlegm All Other Systems Reviewed Negative Unless Noted: Yes Past Zrhmxpr-Qemzzf-Fovmgh Hx Past Med/Social Hx: Reviewed Nursing Past Med/Soc Hx Patient Social History Alcohol Beverage of Choice: Beer Type Used: Cigarettes Former Smoker, Quit: Mar 01, 2000 2nd Hand Smoke Exposure: No Recent Foreign Travel: No Contact w/Someone Who Travel: No Recent Hopitalizations: No Immunizations Up To Date Tetanus Booster (TDap): Less than 5yrs PED Vaccines UTD: No Date of Pneumonia Vaccine: Jun 14, 2015 Date of Influenza Vaccine: Feb 12, 2016 Seasonal Allergies Seasonal Allergies: Yes Past Medical History Surgeries: Yes Abdominal, Angioplasty, Cardiac, CABG, Coronary Stent, Eye Surgery, Gallbladder , Joint Replacement, Open Heart Surgery, Orthopedic, Vascular Surgery Respiratory: Yes (CHRONIC DYSPNEA ON EXERTION) Sleep Apnea, COPD Currently Using CPAP: No Currently Using BIPAP: No Cardiac: Yes Atrial Fibrillation, Chronic Edema/Swelling, Coronary Artery Disease, Heart Attack, High Cholesterol, Hypertension, Peripheral Vascular Neurological: Yes (POSSIBLE STROKE/ TIA) Stroke, TIA Reproductive Disorders: No Sexually Transmitted Disease: No HIV/AIDS: No Genitourinary: Yes (RENAL INSUFFICIENCY) Benign Prostatic Hyperpl, Prostate Problems, Renal Failure Gastrointestinal: Yes Abdominal Hernia, Gastroesophageal Reflux, Pancreatitis, Polyps, Gall Bladder Disease Musculoskeletal: Yes (OLECRANON BURSITIS, CHRONIC NECK PAIN, DISH SYNDROME) Degenerate Disk Disease, Arthritis, Chronic Back Pain Endocrine: Yes Diabetes, Insulin dep HEENT: Yes Cataract Loss of Vision: Denies Hearing Impairment: Denies Cancer: No Psychosocial: Yes Anxiety Integumentary: No Blood Disorders: No Adverse Reaction/Blood Tranf: No Family Medical History Reviewed Nursing Family Hx Cancer G8 BROTHER Cataract 19 FATHER 19 MOTHER G8 BROTHER G8 BROTHER G8 SISTER Congestive heart failure 19 FATHER 19 MOTHER Family history: Arthritis 19 FATHER 19 MOTHER G8 BROTHER G8 BROTHER G8 SISTER G8 SISTER DAUGHTER SON Family history: Breast disease DAUGHTER Family history: Cardiovascular disease 19 FATHER Family history: Diabetes mellitus 19 FATHER G8 BROTHER G8 SISTER Family history: Hypertension 19 FATHER 19 MOTHER G8 BROTHER G8 BROTHER G8 SISTER G8 SISTER DAUGHTER SON Family history: Thyroid disorder DAUGHTER Heart disease 19 FATHER 19 MOTHER G8 BROTHER Hypercholesterolemia 19 FATHER 19 MOTHER G8 BROTHER G8 BROTHER G8 SISTER Myocardial infarction 19 FATHER 19 MOTHER G8 BROTHER No Family History of: Abdominal aortic aneurysm Grafton's disease Alcoholism Aphasia Cancer of colon Chest pain Congenital heart disease Cystic fibrosis Dementia Dysphagia Family history: Allergy Family history: Alzheimer's disease Family history: Asthma Family history: Coronary thrombosis Family history: Gastrointestinal disease Family history: Glaucoma Family history: Osteoporosis Headache Hearing loss Hereditary disease History of - anemia History of - disorder History of - respiratory disease History of drug abuse Human immunodeficiency virus (HIV) seropositivity Infertile Kidney disease Malignant neoplasm of lung Parkinson's disease Prostate cancer Psychotic disorder Seizure disorder Stroke Tuberculosis Visual impairment Physical Exam Vital Signs - First Documented 01/13/18 22:20 Temp 98.5 Pulse 76 Resp 14 B/P (MAP) 103/68 (80) Pulse Ox 96 O2 Delivery Room Air O2 Flow Rate 2.00 100.00 Capillary Refill : Height: 5'11.00" Weight: 188lbs. 0oz. [id number]; 26.1 BMI Method:Stated General Appearance: WD/WN, no apparent distress HEENT: PERRL/EOMI, normal ENT inspection, TMs normal, pharynx normal Neck: non-tender, full range of motion, supple, normal inspection, carotid bruit Respiratory: chest non-tender, lungs clear, normal breath sounds, no respiratory distress, no accessory muscle use Cardiovascular: normal peripheral pulses, regular rate, rhythm, no edema, no gallop, no JVD, no murmur Gastrointestinal: normal bowel sounds, non tender, soft, no organomegaly, no pulsatile mass Neurologic/Psychiatric: alert, normal mood/affect, oriented x 3 Skin: normal color, warm/dry Progress/Results/Core Measures Suspected Sepsis SIRS Temperature: Pulse: Respiratory Rate: Laboratory Tests 01/13/18 22:49: White Blood Count 6.9 Blood Pressure / Mean: Laboratory Tests 01/13/18 22:49: Creatinine 1.92H, Platelet Count 336, Total Bilirubin 0.3 Results/Orders Lab Results Laboratory Tests Test 01/13/18 22:49 Range/Units White Blood Count 6.9 4.3-11.0 10^3/uL Red Blood Count 3.89 L 4.35-5.85 10^6/uL Hemoglobin 10.9 L 13.3-17.7 G/DL Hematocrit 33 L 40-54 % Mean Corpuscular Volume 85 80-99 FL Mean Corpuscular Hemoglobin 28 25-34 PG Mean Corpuscular Hemoglobin Concent 33 32-36 G/DL Red Cell Distribution Width 14.2 10.0-14.5 % Platelet Count 336 130-400 10^3/uL Mean Platelet Volume 9.2 7.4-10.4 FL Neutrophils (%) (Auto) 62 42-75 % Lymphocytes (%) (Auto) 29 12-44 % Monocytes (%) (Auto) 8 0-12 % Eosinophils (%) (Auto) 1 0-10 % Basophils (%) (Auto) 0 0-10 % Neutrophils # (Auto) 4.2 1.8-7.8 X 10^3 Lymphocytes # (Auto) 2.0 1.0-4.0 X 10^3 Monocytes # (Auto) 0.5 0.0-1.0 X 10^3 Eosinophils # (Auto) 0.1 0.0-0.3 10^3/uL Basophils # (Auto) 0.0 0.0-0.1 10^3/uL Sodium Level 141 135-145 MMOL/L Potassium Level 3.9 3.6-5.0 MMOL/L Chloride Level 108 H 98-107 MMOL/L Carbon Dioxide Level 21 21-32 MMOL/L Anion Gap 12 5-14 MMOL/L Blood Urea Nitrogen 12 7-18 MG/DL Creatinine 1.92 H 0.60-1.30 MG/DL Estimat Glomerular Filtration Rate 34 BUN/Creatinine Ratio 6 Glucose Level 74 70-105 MG/DL Calcium Level 10.3 H 8.5-10.1 MG/DL Corrected Calcium 9.9 8.5-10.1 MG/DL Total Bilirubin 0.3 0.1-1.0 MG/DL Aspartate Amino Transf (AST/SGOT) 24 5-34 U/L Alanine Aminotransferase (ALT/SGPT) 21 0-55 U/L Alkaline Phosphatase 54 40-136 U/L Total Protein 7.5 6.4-8.2 GM/DL Albumin 4.5 3.2-4.5 GM/DL Micro Results Microbiology 01/13/18 Gram Stain - Final, Complete 01/13/18 Sputum Culture - Final, Complete Usual upper respiratory cathie My Orders Orders - JOSEE REICH Comprehensive Metabolic Panel (01/13/18 22:09) Saline Lock/Iv-Start (01/13/18 22:09) Cbc With Automated Diff (01/13/18 22:09) Chest Pa/Lat (2 View) (01/13/18 22:11) Sputum Culture (01/13/18 22:19) Benzonatate Capsule (Tessalon Perles) (01/14/18 09:00) Benzonatate Capsule (Tessalon Perles) (01/13/18 23:04) Vital Signs/I&O 9/07/0101/13/18 01/13/18 22:20 22:20 23:15 Temp 98.5 Pulse 76 80 Resp 14 14 B/P (MAP) 103/68 (80) 103/68 Pulse Ox 96 96 O2 Delivery Room Air Room Air Room Air O2 Flow Rate 2.00 100.00 Capillary Refill : Progress Note : Time: 22:50 Progress Note I have seen and evaluated the patient. I have informed him of normal laboratory studies and x-ray report. I will be prescribing a cough suppressant. He agrees with plan of care and close follow up with primary care provider. Return precautions were given. Diagnostic Imaging Diagonstic Imaging: Xray Plain Films/CT/US/NM/MRI: chest Comments [facility] report: no acute cardiopulmonary process Reviewed: Reviewed by Me Departure Impression Primary Impression: Cough Disposition: HOME, SELF-CARE Condition: Stable/Unchanged Departure-Patient Inst. Decision time for Depature: 23:00 Referrals: IRAJ HERRERA MD (PCP/Family) Primary Care Physician Patient Instructions: Cough, Adult (DC) Add. Discharge Instructions: Take medications as previously prescribed. He may use the Tessalon Perles as directed for cough suppressant. Return back to the emergency room for any shortness of breath, wheezing, fevers, worsening symptoms, or any other concerns as needed. Follow-up with Dr. Herrera within 1 week for recheck. All discharge instructions reviewed with patient and/or family. Voiced understanding. Scripts Benzonatate (Tessalon Perle) 100 Mg Capsule 100 MG PO Q8H, #14 CAP Prov: JOSEE REICH 01/13/18 JOSEE REICH Jan 13, 2018 22:18
[2018-01-13 22:56] LABS: BASOPHILS % (AUTO) 0 % (0-10); EOSINOPHILS # (AUTO) 0.1 10^3/uL (0.0-0.3); EOSINOPHILS % (AUTO) 1 % (0-10); HEMATOCRIT 33 % (40-54); HEMOGLOBIN 10.9 G/DL (13.3-17.7); LYMPHOCYTES % (AUTO) 29 % (12-44); MEAN CORPUSCULAR HEMOGLOBIN 28 PG (25-34); MEAN CORPUSCULAR HGB CONC 33 G/DL (32-36); MEAN CORPUSCULAR VOLUME 85 FL (80-99); MEAN PLATELET VOLUME 9.2 FL (7.4-10.4); MONOCYTES # (AUTO) 0.5 X 10^3 (0.0-1.0); MONOCYTES % (AUTO) 8 % (0-12); NEUTROPHILS # (AUTO) 4.2 X 10^3 (1.8-7.8); NEUTROPHILS % (AUTO) 62 % (42-75); PLATELET COUNT 336 10^3/uL (130-400); RED BLOOD COUNT 3.89 10^6/uL (4.35-5.85); RED CELL DISTRIBUTION WIDTH 14.2 % (10.0-14.5); WHITE BLOOD COUNT 6.9 10^3/uL (4.3-11.0)
[2018-01-13] MEDS ORDERED: BENZ100C18 PO (22:58)
[2018-01-13] MEDS ORDERED: BENZONATATE 100 MG (TESSALON) CAPSULE PO ONE (23:04)
[2018-01-13 23:14] LABS: ALBUMIN 4.5 GM/DL (3.2-4.5); BILIRUBIN,TOTAL 0.3 MG/DL (0.1-1.0); CALCIUM 10.3 MG/DL (8.5-10.1); CREATININE SERUM 1.92 MG/DL (0.60-1.30); POTASSIUM 3.9 MMOL/L (3.6-5.0); TOTAL PROTEIN 7.5 GM/DL (6.4-8.2)
[2018-01-13 23:15] VITALS: BP 103/68
--- NOTE | 2018-01-14 07:30 | Diagnostic Imaging Report ---
INDICATION: Cough and congestion. Comparison with 12/27/2017. FINDINGS: PA and lateral chest shows median sternotomy changes. The cardiac implanted monitor overlies the left chest. The heart is not enlarged. There is no evidence of pulmonary edema. No hilar adenopathy. No pneumothorax or pleural effusion. There is mild hyperaeration noted with some flattening of the diaphragm. Hypertrophic degenerative changes noted throughout the thoracic spine. IMPRESSION: Postoperative residue with mild hyperaeration. No acute changes are demonstrated. Dictated by: Dictated on workstation # [id number]
[2018-01-14] MEDS ORDERED: BENZONATATE 100 MG (TESSALON) CAPSULE PO SCH (09:00)
== END 2018-01-13 23:37 | disposition home or self-care (01) ==
LOC: EDUNIT# 21:51 → ER 21:53
DX: R05 Cough (principal); G47.30 Sleep apnea, unspecified; J44.9 Chronic obstructive pulmonary disease, unspecified; I48.91 Unspecified atrial fibrillation; I25.10 Atherosclerotic heart disease of native coronary artery without angina pectoris; I25.2 Old myocardial infarction; E78.00 Pure hypercholesterolemia, unspecified; I10 Essential (primary) hypertension; I73.9 Peripheral vascular disease, unspecified; K21.9 Gastro-esophageal reflux disease without esophagitis; E11.9 Type 2 diabetes mellitus without complications; F41.9 Anxiety disorder, unspecified; Z82.49 Family history of ischemic heart disease and other diseases of the circulatory system; Z86.73 Personal history of transient ischemic attack (TIA), and cerebral infarction without residual deficits; Z87.19 Personal history of other diseases of the digestive system; Z86.010 Personal history of colon polyps; Z88.0 Allergy status to penicillin; Z88.8 Allergy status to other drugs, medicaments and biological substances; Z79.01 Long term (current) use of anticoagulants; Z79.82 Long term (current) use of aspirin; Z79.4 Long term (current) use of insulin; Z87.891 Personal history of nicotine dependence; Z95.1 Presence of aortocoronary bypass graft; Z95.5 Presence of coronary angioplasty implant and graft; Z98.61 Coronary angioplasty status
CPT/HCPCS: 36415; 71046; 80053; 85025; 87070; 87205

== ENCOUNTER 2018-01-24 17:00 | Emergency (ER) | payer MEDICARE, MEDICAID ==
[~2018-01-24] VITALS: Ht 180.3 cm; Wt 83.5 kg
[~2018-01-24 17:00] MED LIST changes: +BENZ100C18 PO
[2018-01-24 18:25] LABS: BASOPHILS % (AUTO) 1 % (0-10); EOSINOPHILS # (AUTO) 0.1 10^3/uL (0.0-0.3); EOSINOPHILS % (AUTO) 1 % (0-10); HEMATOCRIT 33 % (40-54); HEMOGLOBIN 10.8 G/DL (13.3-17.7); LYMPHOCYTES # (AUTO) 1.4 X 10^3 (1.0-4.0); LYMPHOCYTES % (AUTO) 25 % (12-44); MEAN CORPUSCULAR HEMOGLOBIN 28 PG (25-34); MEAN CORPUSCULAR HGB CONC 32 G/DL (32-36); MEAN CORPUSCULAR VOLUME 85 FL (80-99); MEAN PLATELET VOLUME 9.6 FL (7.4-10.4); MONOCYTES # (AUTO) 0.5 X 10^3 (0.0-1.0); MONOCYTES % (AUTO) 9 % (0-12); NEUTROPHILS # (AUTO) 3.8 X 10^3 (1.8-7.8); NEUTROPHILS % (AUTO) 65 % (42-75); PLATELET COUNT 346 10^3/uL (130-400); RED CELL DISTRIBUTION WIDTH 14.2 % (10.0-14.5); WHITE BLOOD COUNT 5.9 10^3/uL (4.3-11.0)
--- NOTE | 2018-01-24 18:25 | ED General ---
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 Pt reports feeling dizzy for past couple hours. Pt reports cough x3 months. Nursing Sepsis Screen: No Definite Risk Source of Information: Patient ( LIMITED HISTORIAN), Family ( GIVES MOST INFORMATION) History of Present Illness Date Seen by Provider: Jan 24, 2018 Time Seen by Provider: 18:00 Initial Comments PT ARRIVES VIA POV FROM HOME-- AMBULATES INTO ER WITH OUT DIFFICULTY PT STATES " BLOOD PRESSURE" --PT STATES "UP AND DOWN" -- STATES IS HERE BECAUSE HIS BLOOD PRESSURE IS LOW PT CHECKS BLOOD PRESSURE MULTIPLE TIMES A DAY TODAY READINGS HAVE BEEN: BP 90/60, HR 78 BP 194/61, HR 86 BP 74/54, HR 94 BP ON 01/13 WITH 73/43 OTHER READINGS: ON 12/24--BP 101/59, 119/76 ON 12/25--BP 240/238, 205/72, 197/97, 107/57, 99/53 ON 12/27--BP 100/56, 97/53 HEART RATE ANYWHERE FROM 50-100 THIS IS A CHRONIC/ONGOING PROBLEM FOR PT--MULTIPLE ER VISITS FOR THESE SAME COMPLAINTS STATES HE HAS BEEN DIZZY THE LAST COUPLE OF HOURS, OTHERWISE HAS BEEN ASYMPTOMATIC, AND IS NOT DIZZY NOW. NO CHEST PAIN NO SHORTNESS OF BREATH NO SWEATS NO PALPITATIONS NO SYNCOPE PT HAS BEEN ON MULTIPLE BP MEDICATIONS CALLED DR. GARCIA'S OFFICE TODAY AND WAS TOLD TO HOLD HIS METOPROLOL TODAY PT WAS SEEN BY DR. Kamari HERRERA ON Sunday01/22/18 FOR ROUTINE EXAM HAS NO IDEA WHAT BP AND HR READINGS WERE AT THAT TIME PT WAS STARTED ON LISINOPRIL 5 MG DAILY PT WAS ALSO TOLD TO STOP GLIPIZIDE PT STARTED ON CEFDINIR FOR EAR PAIN, NECK PAIN, HEADACHE AND COUGH X 3 MONTHS-- HAS BEEN SEEN MULTIPLE TIMES FOR COUGH--WORK UP'S NEGATIVE. LATER PT STATES HIS COUGH IS GETTING BETTER--"NOT DEEP" PT WITH MULTITUDE OF ER VISITS--12 VISITS IN 2018, VARIOUS COMPLAINTS PT HAD CT OF CHEST 12/21/17, WHICH WAS READ NO ACUTE PROCESS PT HAS HAD MULTIPLE CXR'S--LAST ONE 12/27/17--READ NO ACUTE PROCESS PT HAS HAD MULTIPLE CT'S OF ABDOMEN AND PELVIS--LAST ONE 08/2017--NO ACUTE PROCESS, DIVERTICULAR DISEASE PT HAS HAD A MULTITUDE OF CT SCANS OF VARIOUS AREAS OVER THE YEARS PCP: DR. 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 GARCIA Allergies and Home Medications Allergies Coded Allergies: celecoxib (Unverified Allergy, Mild, TAKES ASPIRIN AT HOME, 12/21/14) diclofenac (Unverified Allergy, Mild, TAKES ASPIRIN AT HOME, 12/21/14) naproxen (Unverified Allergy, Mild, TAKES ASPIRIN AT HOME, 12/21/14) rosuvastatin (Unverified Allergy, Mild, 08/14/08) Penicillins (Verified Allergy, Unknown, 08/03/05) amoxicillin (Verified Allergy, Unknown, 08/03/05) fenofibrate (Unverified Allergy, Unknown, 06/05/16) simvastatin (Unverified Allergy, Unknown, 06/05/16) Uncoded Allergies: GEMIFIBOROZIL (Allergy, Unknown, 06/05/16) Home Medications Apixaban 5 Mg Tablet, 5 MG PO BID, (Reported) Apixaban 5 Mg Tablet, 5 MG PO BID, (Reported) Aspirin 81 Mg Tablet.dr, 81 MG PO DAILY, (Reported) Baclofen 10 Mg Tablet, 10 MG PO TID PRN for MUSCLE SPASMS, (Reported) Benzonatate 100 Mg Capsule, 100 MG PO Q8H Prescribed by: JOSEE REICH on 01/13/18 225 Cefuroxime Axetil 250 Mg Tablet, 250 MG PO BID Prescribed by: LEONARDO SALGADO on 12/27/17 1846 Cilostazol 100 Mg Tablet, 100 MG PO BID, (Reported) Cyclobenzaprine HCl 5 Mg Tablet, 5 MG PO TID PRN for PAIN-MODERATE TO SEVERE Prescribed by: LEONARDO SALGADO on 07/28/17 1500 Digoxin 125 Mcg Tablet, 125 MCG PO DAILY, (Reported) Doxycycline Hyclate 100 Mg Tablet, 100 MG PO BID Prescribed by: CHARO SCHNEIDER on 08/31/17 1635 Dronedarone HCl 400 Mg Tablet, 400 MG PO BID, (Reported) Fenofibrate,Micronized 134 Mg Capsule, 134 MG PO DAILY, (Reported) Gabapentin 300 Mg Capsule, 600 MG PO HS, (Reported) TAKES 2 (300 MG) CAPSULES Insulin Detemir 100 Unit/1 Ml Insuln.pen, 25 UNIT SQ BID, (Reported) Methylprednisolone 4 Mg Tab.ds.pk, 4 MG PO UD Prescribed by: LEONARDO SALGADO on 11/11/17 1713 Metoprolol Tartrate 25 Mg Tablet, 12.5 MG PO BID, (Reported) TAKES 1/2 OF A (25 MG) TABLET Montelukast Sodium 10 Mg Tablet, 10 MG PO DAILY, (Reported) Nitroglycerin 0.4 Mg Tab.subl, 0.4 MG SL UD PRN for CHEST PAIN, (Reported) MAX OF 3 TABS IN 15 MINUTES / CALL 911 IF PAIN REMAINS AFTER 5 MINUTES Pentoxifylline 400 Mg Tablet.er, 400 MG PO BID, (Reported) Pravastatin Sodium 80 Mg Tablet, 80 MG PO HS, (Reported) Sucralfate 1 Gm Tablet, 1 GM PO ACHS Prescribed by: LEONARDO SALGADO on 10/12/17 1622 Tamsulosin HCl 0.4 Mg Cap.er.24h, 0.4 MG PO DAILY, (Reported) Trazodone HCl 50 Mg Tablet, 50 MG PO HS, (Reported) Patient Home Medication List Home Medication List Reviewed: Yes Review of Systems Review of Systems Constitutional: see HPI, dizziness EENTM: ear pain Respiratory: cough, phlegm (OCCASIONAL COLORED SPUTUM,); No short of breath, No wheezing Cardiovascular: see HPI; No chest pain, No edema, No palpitations, No syncope Gastrointestinal: no symptoms reported; No loss of appetite, No nausea, No vomiting Genitourinary: no symptoms reported Musculoskeletal: see HPI, neck pain (CHRONIC) Skin: no symptoms reported Psychiatric/Neurological: See HPI, Headache (NOT NOW); Denies Numbness, Denies Paresthesia, Denies Tingling, Denies Weakness Hematologic/Lymphatic: No Symptoms Reported Immunological/Allergic: no symptoms reported Past Hewmimp-Cgskxl-Rpvdtq Hx Patient Social History Alcohol Use: Denies Use Number of Drinks Today: AA Alcohol Beverage of Choice: Beer Recreational Drug Use: No Smoking Status: Former Smoker Type Used: Cigarettes Former Smoker, Quit: Mar 01, 2000 2nd Hand Smoke Exposure: No Recent Foreign Travel: No Contact w/Someone Who Travel: No Recent Infectious Disease Expo: No Recent Hopitalizations: No Immunizations Up To Date Tetanus Booster (TDap): Less than 5yrs PED Vaccines UTD: No Date of Pneumonia Vaccine: Jun 14, 2015 Date of Influenza Vaccine: Feb 12, 2016 Seasonal Allergies Seasonal Allergies: No Past Medical History Surgeries: Yes (HERNIA REPAIR; BACK SURGERY; 4 VESSEL CABG; CARDIAC CATHS-- STENTS X 2 PLUS ANGIOPLASTY; LAST CATH 09/22/16--NO INTERVENTION; EGD/ COLONOSCOPIES/POLYPECTOMY; CATARACTS. ) Abdominal, Angioplasty, Cardiac, CABG, Coronary Stent, Eye Surgery, Gallbladder , Joint Replacement, Open Heart Surgery, Orthopedic, Vascular Surgery Respiratory: Yes (CHRONIC DYSPNEA ON EXERTION) Sleep Apnea, COPD Currently Using CPAP: No Currently Using BIPAP: No Cardiac: Yes (CHRONIC EDEMA RIGHT LEG POST CABG; LAST CARDIAC CATH 09/22/16-NO INTERVENTION, PATENT STENTS. PROBABLE OCCLUDED GRAFT TO OBTUSE MARGINAL ) Atrial Fibrillation, Chronic Edema/Swelling, Coronary Artery Disease, Heart Attack, High Cholesterol, Hypertension, Peripheral Vascular Neurological: Yes (POSSIBLE STROKE/ TIA) Stroke, TIA Reproductive Disorders: No Sexually Transmitted Disease: No HIV/AIDS: No Genitourinary: Yes (RENAL INSUFFICIENCY) Benign Prostatic Hyperpl, Prostate Problems, Renal Failure Gastrointestinal: Yes (GASTROPARESIS; GASTRITIS; DUODENITIS; COLON POLYPECTOMY ; S/P ROSA AND HERNIA REPAIR) Abdominal Hernia, Gastroesophageal Reflux, Pancreatitis, Polyps, Gall Bladder Disease Musculoskeletal: Yes (OLECRANON BURSITIS, CHRONIC NECK PAIN, DISH SYNDROME) Degenerate Disk Disease, Arthritis, Chronic Back Pain Endocrine: Yes Diabetes, Insulin dep HEENT: Yes Cataract Loss of Vision: Denies Hearing Impairment: Denies Cancer: No Psychosocial: Yes Anxiety Integumentary: No Blood Disorders: No Adverse Reaction/Blood Tranf: No Family Medical History Cancer G8 BROTHER Cataract 19 FATHER 19 MOTHER G8 BROTHER G8 BROTHER G8 SISTER Congestive heart failure 19 FATHER 19 MOTHER Family history: Arthritis 19 FATHER 19 MOTHER G8 BROTHER G8 BROTHER G8 SISTER G8 SISTER DAUGHTER SON Family history: Breast disease DAUGHTER Family history: Cardiovascular disease 19 FATHER Family history: Diabetes mellitus 19 FATHER G8 BROTHER G8 SISTER Family history: Hypertension 19 FATHER 19 MOTHER G8 BROTHER G8 BROTHER G8 SISTER G8 SISTER DAUGHTER SON Family history: Thyroid disorder DAUGHTER Heart disease 19 FATHER 19 MOTHER G8 BROTHER Hypercholesterolemia 19 FATHER 19 MOTHER G8 BROTHER G8 BROTHER G8 SISTER Myocardial infarction 19 FATHER 19 MOTHER G8 BROTHER No Family History of: Abdominal aortic aneurysm [place]'s disease Alcoholism Aphasia Cancer of colon Chest pain Congenital heart disease Cystic fibrosis Dementia Dysphagia Family history: Allergy Family history: Alzheimer's disease Family history: Asthma Family history: Coronary thrombosis Family history: Gastrointestinal disease Family history: Glaucoma Family history: Osteoporosis Headache Hearing loss Hereditary disease History of - anemia History of - disorder History of - respiratory disease History of drug abuse Human immunodeficiency virus (HIV) seropositivity Infertile Kidney disease Malignant neoplasm of lung Parkinson's disease Prostate cancer Psychotic disorder Seizure disorder Stroke Tuberculosis Visual impairment Physical Exam Vital Signs Vital Signs - First Documented 01/24/18 17:24 Temp 98.0 Pulse 88 Resp 18 B/P (MAP) 91/60 (70) Pulse Ox 98 O2 Delivery Room Air Capillary Refill : Less Than 3 Seconds Height, Weight, BMI Height: 5'11.00" Weight: 184lbs. 0oz. 83.591861ip; 26.1 BMI Method:Stated General Appearance: No Apparent Distress, WD/WN HEENT: Other (CLEAR POST NASAL DRAINAGE, EDENTULOUS. CONSTANT LIP LICKING) Neck: No JVD Respiratory: Normal Breath Sounds, No Accessory Muscle Use, No Respiratory Distress Cardiovascular: Regular Rate, Rhythm, No JVD, Normal Peripheral Pulses, Systolic Murmur (1/6) Gastrointestinal: Non Tender, Soft Extremity: Normal Capillary Refill, Normal Range of Motion, Non Tender, No Calf Tenderness, Pedal Edema (TRACE EDEMA TO RIGHT ANKLE) Neurologic/Psychiatric: Alert, Oriented x3 (BUT POOR HISTORIAN), No Motor/ Sensory Deficits, Normal Mood/Affect, skimmer reverberatory II-XII Norm as Tested Skin: Tattoos/Piercings (TATTOOS) Progress/Results/Core Measures Suspected Sepsis Recent Fever Within 48 Hours: No Infection Criteria Present: Suspected New Infection New/Unexplained Altered Menta: No Sepsis Screen: No Definite Risk SIRS Temperature:98.0 Pulse: 88 Respiratory Rate: 18 Laboratory Tests 01/24/18 17:42: White Blood Count 5.9 Blood Pressure 91 /60 Mean: 70 Laboratory Tests 01/24/18 17:42: Creatinine 1.95H, INR Comment 1.5H, Platelet Count 346, Total Bilirubin 0.5 Results/Orders Lab Results Laboratory Tests Test 01/24/18 17:42 01/24/18 18:44 Range/Units White Blood Count 5.9 4.3-11.0 10^3/uL Red Blood Count 3.90 L 4.35-5.85 10^6/uL Hemoglobin 10.8 L 13.3-17.7 G/DL Hematocrit 33 L 40-54 % Mean Corpuscular Volume 85 80-99 FL Mean Corpuscular Hemoglobin 28 25-34 PG Mean Corpuscular Hemoglobin Concent 32 32-36 G/DL Red Cell Distribution Width 14.2 10.0-14.5 % Platelet Count 346 130-400 10^3/uL Mean Platelet Volume 9.6 7.4-10.4 FL Neutrophils (%) (Auto) 65 42-75 % Lymphocytes (%) (Auto) 25 12-44 % Monocytes (%) (Auto) 9 0-12 % Eosinophils (%) (Auto) 1 0-10 % Basophils (%) (Auto) 1 0-10 % Neutrophils # (Auto) 3.8 1.8-7.8 X 10^3 Lymphocytes # (Auto) 1.4 1.0-4.0 X 10^3 Monocytes # (Auto) 0.5 0.0-1.0 X 10^3 Eosinophils # (Auto) 0.1 0.0-0.3 10^3/uL Basophils # (Auto) 0.0 0.0-0.1 10^3/uL Prothrombin Time 17.9 H 12.2-14.7 SEC INR Comment 1.5 H 0.8-1.4 Activated Partial Thromboplast Time 34 24-35 SEC Sodium Level 135 135-145 MMOL/L Potassium Level 3.9 3.6-5.0 MMOL/L Chloride Level 106 98-107 MMOL/L Carbon Dioxide Level 19 L 21-32 MMOL/L Anion Gap 10 5-14 MMOL/L Blood Urea Nitrogen 15 7-18 MG/DL Creatinine 1.95 H 0.60-1.30 MG/DL Estimat Glomerular Filtration Rate 34 BUN/Creatinine Ratio 8 Glucose Level 149 H 70-105 MG/DL Calcium Level 9.8 8.5-10.1 MG/DL Corrected Calcium 9.6 8.5-10.1 MG/DL Magnesium Level 2.2 1.8-2.4 MG/DL Total Bilirubin 0.5 0.1-1.0 MG/DL Aspartate Amino Transf (AST/SGOT) 40 H 5-34 U/L Alanine Aminotransferase (ALT/SGPT) 26 0-55 U/L Alkaline Phosphatase 50 40-136 U/L Troponin I < 0.30 <0.30 NG/ML Total Protein 7.0 6.4-8.2 GM/DL Albumin 4.3 3.2-4.5 GM/DL TSH [place] Testing 3.22 0.35-4.94 UIU/ML Digoxin Level 1.13 0.80-2.00 NG/ML Urine Color YELLOW Urine Clarity CLEAR Urine pH 6 5-9 Urine Specific [place] 1.010 L 1.016-1.022 Urine Protein NEGATIVE NEGATIVE Urine Glucose (UA) NEGATIVE NEGATIVE Urine Ketones NEGATIVE NEGATIVE Urine Nitrite NEGATIVE NEGATIVE Urine Bilirubin NEGATIVE NEGATIVE Urine Urobilinogen NORMAL NORMAL MG/DL Urine Leukocyte Esterase 1+ H NEGATIVE Urine RBC (Auto) NEGATIVE NEGATIVE Urine RBC NONE /HPF Urine WBC 0-2 /HPF Urine Crystals NONE /LPF Urine Bacteria TRACE /HPF Urine Casts NONE /LPF Urine Mucus NEGATIVE /LPF Urine Culture Indicated NO My Orders Orders - ROMAIN KNIGHT DO Saline Lock/Iv-Start (01/24/18 18:15) Ekg Tracing (01/24/18 18:15) Monitor-Rhythm Ecg Trace Only (01/24/18 18:15) Orthostatic Vital Signs (Adult (01/24/18 18:15) Cbc With Automated Diff (01/24/18 18:15) Comprehensive Metabolic Panel (01/24/18 18:15) Magnesium (01/24/18 18:15) Protime With Inr (01/24/18 18:15) Partial Thromboplastin Time (01/24/18 18:15) Thyroid Analyzer (01/24/18 18:15) Troponin I (01/24/18 18:15) Ua Culture If Indicated (01/24/18 18:15) Chest Pa/Lat (2 View) (01/24/18 18:34) Saline Lock/Iv-Start (01/24/18 18:53) Ns Iv 1000 Ml (Sodium Chloride 0.9%) (01/24/18 18:53) Digoxin (01/24/18 19:03) Medications Given in ED Vital Signs/I&O 01/24/18 20:08 Temp 97.9 Pulse 76 Resp 16 B/P (MAP) 105/79 (63) Pulse Ox 100 O2 Delivery Room Air 01/25/18 00:00 Intake Total 1000 ml Balance 1000 ml Capillary Refill : Less Than 3 Seconds Blood Pressure Mean: 70 Progress Note : Progress Note ORTHOSTATICS + ON ARRIVAL--SEE NURSING NOTES/VITALS SIGNS FOR READINGS. PT COMPLETELY ASYMPTOMATIC DURING ENTIRE ER STAY BP > 100 SYSTOLIC FOR MOST OF ER STAY AND AT DISMISSAL AND PT IS SITTING UP ON SIDE OF BED, AND PRESSURE IS STILL > 100 SYSTOLIC, AND HR IN 70'S ECG Initial ECG Impression Date: Jan 24, 2018 Initial ECG Impression Time: 18:24 Initial ECG Rate: 77 Initial ECG Rhythm: Normal Sinus Initial ECG Comparisson: Unchanged Diagnostic Imaging Comments CXR--NO ACUTE PROCESS, CHRONIC / STABLE INTERSTITIAL CHANGES--PER RADIOLOGIST REPORT @ 1958 Reviewed: Reviewed by Me Departure Communication (Admissions) 1929--SPOKE WITH DR. Kamari HERRERA --WILL HYDRATE, AND HE WILL SEE PT IN OFFICE TOMORROW OR SUNDAY FOR FURTHER CARE ( CURRENTLY NO BEDS IN HOSPITAL/ON COMPLETE DIVERSION FOR ADMITS AT THIS TIME) THIS IS NOT A NEW PROBLEM FOR PT. DR. HERRERA HAS ALSO RECENTLY BEEN MADE AWARE THAT PT IS CONSTANTLY SELF-MEDICATING WITH A NUMBER OF HIS MEDICATIONS--WILL TAKE HIS GLIPIZIDE 5 OR 6 TIMES A DAY BECAUSE HE HAD AN ELEVATED BLOOD GLUCOSE READING, AND THEN HE WILL BECOME HYPOGLYCEMIC AND THEN HE WILL DRINK LARGE AMOUNTS OF [place] WITH LARGE AMOUNTS OF SUGAR TO GET HIS BLOOD SUGAR BACK UP, AND THEN WILL HOLD HIS GLIPIZIDE, THEN BLOOD GLUCOSE GOES UP AGAIN--AND THE CYCLE CONTINUES.. IT APPEARS THAT PT IS DOING THE SAME THING WITH HIS BLOOD PRESSURE MEDICATIONS, ADVISES TO HOLD METOPROLOL AND CONTINUE LISINOPRIL ( WAS PRESCRIBED TO HELP WITH RENAL FUNCTION ) Impression Primary Impression: Orthostatic hypotension Additional Impressions: Chronic renal insufficiency Mild anemia Chronic cough HX OF HTN AND A FIB--ON MULTIPLE MEDICATIONS Chronic anticoagulation IDDM (insulin dependent diabetes mellitus) History of medication noncompliance Disposition: HOME, SELF-CARE Condition: Improved Departure-Patient Inst. Referrals: IRAJ HERRERA MD (PCP/Family) Primary Care Physician Patient Instructions: Blood Glucose Monitoring, Controlling Your Blood Pressure Through Lifestyle, DIABETES, Diabetes Diet , Diabetes Type 2 (DC), High Blood Pressure (DC), Low Blood Pressure (DC) Add. Discharge Instructions: TAKE ALL OF YOUR MEDICATIONS EXACTLY PRESCRIBED BY YOUR DR. HOLD METOPROLOL UNTIL YOU ARE RECHECKED BY YOUR DR CONTINUE LISINOPRIL FOLLOW UP WITH DR. HERRERA TOMORROW OR SUNDAY FOR FURTHER CARE All discharge instructions reviewed with patient and/or family. Voiced understanding. ROMAIN KNIGHT DO Jan 24, 2018 18:25
[2018-01-24 18:37] LABS: ALANINE AMINOTRANSFERASE 26 U/L (0-55); ALBUMIN 4.3 GM/DL (3.2-4.5); ALKALINE PHOSPHATASE 50 U/L (40-136); BILIRUBIN,TOTAL 0.5 MG/DL (0.1-1.0); BUN/CREATININE RATIO 8; CALCIUM 9.8 MG/DL (8.5-10.1); CARBON DIOXIDE 19 MMOL/L (21-32); CHLORIDE 106 MMOL/L (98-107); CREATININE SERUM 1.95 MG/DL (0.60-1.30); GFR ESTIMATED 34; GLUCOSE 149 MG/DL (70-105); MAGNESIUM 2.2 MG/DL (1.8-2.4); POTASSIUM 3.9 MMOL/L (3.6-5.0); SODIUM 135 MMOL/L (135-145)
[2018-01-24 18:40] LABS: INR 1.5 (0.8-1.4); PROTHROMBIN TIME PATIENT 17.9 SEC (12.2-14.7)
[2018-01-24 18:52] VITALS: BP_SYST 74; BP_SYST 85; BP_SYST 98; BP_DIAS 58; BP_DIAS 63; BP_DIAS 64
[2018-01-24] MEDS ORDERED: NS IV 1000 ML 1,000 ML IV ONE (18:53)
[2018-01-24 18:54] LABS: BILIRUBIN,URINE NEGATIVE (NEGATIVE); CLARITY,URINE CLEAR; COLOR,URINE YELLOW; GLUCOSE, URINE (UA) NEGATIVE (NEGATIVE); KETONES,URINE NEGATIVE (NEGATIVE); LEUKOCYTE ESTERASE ,URINE 1+ (NEGATIVE); NITRITE,URINE NEGATIVE (NEGATIVE); PH,URINE 6 (5-9); PROTEIN,URINE NEGATIVE (NEGATIVE); UROBILINOGEN,URINE NORMAL (NORMAL)
[2018-01-24 18:57] LABS: TSH (THYROID ANALYZER) 3.22 UIU/ML (0.35-4.94)
[2018-01-24 19:08] LABS: BACTERIA,URINE TRACE /HPF; WBC,URINE 0-2 /HPF
--- NOTE | 2018-01-24 19:53 | Diagnostic Imaging Report ---
EXAMINATION: PA and lateral chest compared to prior study from January 13, 2018. INDICATION: Low blood pressure with productive cough. FINDINGS: Appearance of the chest is stable. There are chronic interstitial changes within the lungs with pulmonary hyperinflation. Heart size is stable. Pulmonary vascularity appears normal without evidence of failure. There is no focal alveolar consolidation or effusion. There is no pneumothorax. Patient is status post previous bypass grafting. A subcutaneous vehicle monitor technician also noted. IMPRESSION: 1. Stable appearance of the chest. Interstitial changes with pulmonary hyperinflation present suggesting underlying COPD. No new superimposed process evident. Dictated by: Dictated on workstation # [id number]
[2018-01-24 20:08] VITALS: BP 105/79
== END 2018-01-24 20:09 | disposition home or self-care (01) ==
LOC: EDUNIT# 17:00 → ER 17:01
DX: I95.1 Orthostatic hypotension (principal); E11.22 Type 2 diabetes mellitus with diabetic chronic kidney disease; I12.9 Hypertensive chronic kidney disease with stage 1 through stage 4 chronic kidney disease, or unspecified chronic kidney disease; N18.9 Chronic kidney disease, unspecified; D64.9 Anemia, unspecified; G47.30 Sleep apnea, unspecified; J44.9 Chronic obstructive pulmonary disease, unspecified; I48.91 Unspecified atrial fibrillation; I25.10 Atherosclerotic heart disease of native coronary artery without angina pectoris; E11.51 Type 2 diabetes mellitus with diabetic peripheral angiopathy without gangrene; I73.9 Peripheral vascular disease, unspecified; E78.00 Pure hypercholesterolemia, unspecified; F41.9 Anxiety disorder, unspecified; I25.2 Old myocardial infarction; Z88.0 Allergy status to penicillin; Z87.19 Personal history of other diseases of the digestive system; Z86.010 Personal history of colon polyps; Z91.19 Patient's noncompliance with other medical treatment and regimen; Z88.8 Allergy status to other drugs, medicaments and biological substances; Z82.49 Family history of ischemic heart disease and other diseases of the circulatory system; Z86.73 Personal history of transient ischemic attack (TIA), and cerebral infarction without residual deficits; Z88.6 Allergy status to analgesic agent; Z79.01 Long term (current) use of anticoagulants; Z79.82 Long term (current) use of aspirin; Z79.4 Long term (current) use of insulin; Z79.52 Long term (current) use of systemic steroids; Z87.891 Personal history of nicotine dependence; Z98.890 Other specified postprocedural states; Z95.5 Presence of coronary angioplasty implant and graft; Z95.1 Presence of aortocoronary bypass graft
CPT/HCPCS: 36415; 71046; 80053; 80162; 81000; 83735; 84443; 84484; 85025; 85610; 85730; 93005; 93041; 96360

== ENCOUNTER 2018-01-25 14:26 | Outpatient (RCR) | payer MEDICARE, MEDICAID ==
[~2018-01-25] VITALS: Ht 180.3 cm; Wt 83.5 kg
[2018-01-25 14:40] VITALS: BP 86/64
[2018-01-25] MEDS ORDERED: IRON SUCROSE 200 MG/10 ML (VENOFER) VIAL IV ONE (15:00)
== END 2018-01-25 15:50 | disposition home or self-care (01) ==
LOC: SDC 14:26
PROVIDERS: ATTEND Family Medicine
DX: D50.8 Other iron deficiency anemias (principal); R53.83 Other fatigue; I95.89 Other hypotension
CPT/HCPCS: 96365

== ENCOUNTER → 2018-02-14 | Outpatient (CLI) | payer MEDICARE, MEDICAID ==
--- NOTE | 2018-02-14 16:11 | Diagnostic Imaging Report ---
INDICATION: Neck pain. COMPARISON: None available. TECHNIQUE: 3 views of cervical spine were obtained. FINDINGS: There are large flowing and bridging osteophytes throughout the entire cervical spine. Intervertebral disc space heights are not substantially decreased. No fracture through the ankylosed vertebral bodies by radiography. No abnormal widening of the facets. No spondylolisthesis. IMPRESSION: Diffuse idiopathic skeletal hyperostosis (DISH) of the cervical spine with solid osseous bridging along the anterior aspect of all the cervical vertebrae. Dictated by: Dictated on workstation # [id number]
== END ==
LOC: RAD 12:15
PROVIDERS: ATTEND Family Medicine
DX: M48.12 Ankylosing hyperostosis [Forestier], cervical region (principal); M89.9 Disorder of bone, unspecified
CPT/HCPCS: 72040

== ENCOUNTER 2018-03-08 20:24 | Emergency (ER) | payer MEDICARE, MEDICAID ==
[~2018-03-08] VITALS: Ht 180.3 cm; Wt 82.1 kg
--- OUTSIDE RECORDS SUMMARY | 2018-03-08 20:29 | XMS REPORT | Clinical Summary ---
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 If you do not see the information that you expected, contact Release of Information in the Health Information Management department at [phone] for further assistance in locating additional records.[facility] Allergies Not on File Current Medications Prescription [...] Problem Noted Date Coronary artery disease involving venetie coronary artery 10/24/2016 Overview: 2000 CABG x 4 02/17/12 PTCA BMS to vein graft to the OM 03/02/16 severe in-stent restenosis in the SVG to the OM with successful PCI, no residual stenosis, patent VG to RCA VG to the diag artery and AMANDA to the LAD occluded venetie vessels proximally, small vessel disease distally 09/25/16 [facility] - severe venetie disease, patent graft to RCA, diagonal LAD, probably occluded graft to OM - felt to be reason for chest pain in stent severe restenosis in the SVG to OM with successfull PCI, no residual disease PVD (peripheral vascular disease) ([facility]) 10/24/2016 Overview: 03/02/16 peripheral angio: severe PAD with total occlusion of the post tibial and peroneal artery at the trifurcation, level reconstructed by collateral down at the ankle with occlusion at the ant tibial artery at the ankle level. Mod PAD on LLE down to the trifurcation Carotid artery disease ([facility]) 10/24/2016 Overview: 10/19/16 carotid US - mild stenosis, nonobstructive disease bilaterally PAF (paroxysmal atrial fibrillation) ([facility]) 10/24/2016 Overview: 03/24/16 LINQ implantation Essential hypertension [...] (1 of 2 - PCV13) INFLUENZA VACCINE 12/12/2017 Results Not on filefrom Last 3 Months
[2018-03-08] MEDS ORDERED: NS IV 1000 ML 1,000 ML IV SCH (20:45)
[2018-03-08 20:51] VITALS: BP_SYST 100; BP_SYST 104; BP_SYST 72; BP_DIAS 54; BP_DIAS 58; BP_DIAS 66
[2018-03-08 20:52] LABS: BASOPHILS % (AUTO) 1 % (0-10); EOSINOPHILS # (AUTO) 0.1 10^3/uL (0.0-0.3); EOSINOPHILS % (AUTO) 2 % (0-10); HEMATOCRIT 35 % (40-54); HEMOGLOBIN 11.1 G/DL (13.3-17.7); LYMPHOCYTES # (AUTO) 1.5 X 10^3 (1.0-4.0); LYMPHOCYTES % (AUTO) 24 % (12-44); MEAN CORPUSCULAR HEMOGLOBIN 27 PG (25-34); MEAN CORPUSCULAR HGB CONC 32 G/DL (32-36); MEAN CORPUSCULAR VOLUME 84 FL (80-99); MEAN PLATELET VOLUME 9.1 FL (7.4-10.4); MONOCYTES # (AUTO) 0.4 X 10^3 (0.0-1.0); MONOCYTES % (AUTO) 7 % (0-12); NEUTROPHILS % (AUTO) 67 % (42-75); PLATELET COUNT 358 10^3/uL (130-400); RED BLOOD COUNT 4.18 10^6/uL (4.35-5.85); RED CELL DISTRIBUTION WIDTH 14.8 % (10.0-14.5)
--- NOTE | 2018-03-08 20:58 | ED Cardiac General ---
History of Present Illness General Chief Complaint: Cardiac/General Problems Stated Complaint: BACK PAIN Nursing Triage Note: PATIENT STATES THAT HE IS HERE BECAUSE HE IS HAVING PROBLEMS WITH LOW BP. THIS STARTED TODAY AT 1600. PATIENT HAS ALREADY BEEN TAKEN OFF ALL BP MEDS. STATES HE WAS DIZZY BUT CURRENTLY ASYMPTOMATIC. Source: patient Exam Limitations: no limitations History of Present Illness Date Seen by Provider: Mar 08, 2018 Time Seen by Provider: 20:28 Initial Comments Patient is a 77-year-old male who presents to emergency room with reports of low blood pressure. He has had low blood pressure over the past couple of months and has been taken off blood pressure medication but he reports that today at 1600 and became low with systolic pressure getting into the 80s and becoming dizzy when it was low. He is no longer on any of his blood pressure medications. He denies shortness of breath, nausea, chest pain. Timing/Duration: 4-6 hours, changing over time Modifying Factors: worse with other (standing) Associated Systoms: Syncope Allergies and Home Medications Allergies Coded Allergies: celecoxib (Unverified Allergy, Mild, TAKES ASPIRIN AT HOME, 12/21/14) diclofenac (Unverified Allergy, Mild, TAKES ASPIRIN AT HOME, 12/21/14) naproxen (Unverified Allergy, Mild, TAKES ASPIRIN AT HOME, 12/21/14) rosuvastatin (Unverified Allergy, Mild, 08/14/08) Penicillins (Verified Allergy, Unknown, 08/03/05) amoxicillin (Verified Allergy, Unknown, 08/03/05) fenofibrate (Unverified Allergy, Unknown, 06/05/16) simvastatin (Unverified Allergy, Unknown, 06/05/16) Uncoded Allergies: GEMIFIBOROZIL (Allergy, Unknown, 06/05/16) Home Medications Apixaban 5 Mg Tablet, 5 MG PO BID, (Reported) Aspirin 81 Mg Tablet.dr, 81 MG PO DAILY, (Reported) Baclofen 10 Mg Tablet, 10 MG PO TID PRN for MUSCLE SPASMS, (Reported) Benzonatate 100 Mg Capsule, 100 MG PO Q8H Prescribed by: JOSEE REICH on 01/13/182257 Cefuroxime Axetil 250 Mg Tablet, 250 MG PO BID Prescribed by: LEONARDO SALGADO on 12/27/171845 Cilostazol 100 Mg Tablet, 100 MG PO BID, (Reported) Cyclobenzaprine HCl 5 Mg Tablet, 5 MG PO TID PRN for PAIN-MODERATE TO SEVERE Prescribed by: LEONARDO SALGADO on 07/28/17 1500 Digoxin 125 Mcg Tablet, 125 MCG PO DAILY, (Reported) Doxycycline Hyclate 100 Mg Tablet, 100 MG PO BID Prescribed by: CHARO SCHNEIDER on 08/31/17 1635 Fenofibrate,Micronized 134 Mg Capsule, 134 MG PO DAILY, (Reported) Gabapentin 300 Mg Capsule, 600 MG PO HS, (Reported) TAKES 2 (300 MG) CAPSULES Insulin Detemir 100 Unit/1 Ml Insuln.pen, 25 UNIT SQ BID, (Reported) Methylprednisolone 4 Mg Tab.ds.pk, 4 MG PO UD Prescribed by: LEONARDO SALGADO on 11/11/17 1713 Montelukast Sodium 10 Mg Tablet, 10 MG PO DAILY, (Reported) Nitroglycerin 0.4 Mg Tab.subl, 0.4 MG SL UD PRN for CHEST PAIN, (Reported) MAX OF 3 TABS IN 15 MINUTES / CALL 911 IF PAIN REMAINS AFTER 5 MINUTES Pentoxifylline 400 Mg Tablet.er, 400 MG PO BID, (Reported) Pravastatin Sodium 80 Mg Tablet, 80 MG PO HS, (Reported) Sucralfate 1 Gm Tablet, 1 GM PO ACHS Prescribed by: LEONARDO SALGADO on 10/12/17 1622 Tamsulosin HCl 0.4 Mg Cap.er.24h, 0.4 MG PO DAILY, (Reported) Trazodone HCl 50 Mg Tablet, 50 MG PO HS, (Reported) Patient Home Medication List Home Medication List Reviewed: Yes Review of Systems Review of Systems Constitutional: see HPI, dizziness Cardiovascular: See HPI, Lightheadedness, Other (hypertension) All Other Systems Reviewed Negative Unless Noted: Yes Past [place]-Jeonwf-Sdnrls Hx Past Med/Social Hx: Reviewed Nursing Past Med/Soc Hx Patient Social History Alcohol Beverage of Choice: Beer Type Used: Cigarettes Former Smoker, Quit: Mar 01, 2000 2nd Hand Smoke Exposure: No Recent Foreign Travel: No Contact w/Someone Who Travel: No Recent Infectious Disease Expo: No Recent Hopitalizations: No Immunizations Up To Date Tetanus Booster (TDap): Less than 5yrs PED Vaccines UTD: No Date of Pneumonia Vaccine: Jun 14, 2015 Date of Influenza Vaccine: Feb 12, 2016 Seasonal Allergies Seasonal Allergies: No Past Medical History Surgeries: Yes Abdominal, Angioplasty, Cardiac, CABG, Coronary Stent, Eye Surgery, Gallbladder , Joint Replacement, Open Heart Surgery, Orthopedic, Vascular Surgery Respiratory: Yes (CHRONIC DYSPNEA ON EXERTION) Sleep Apnea, COPD Currently Using CPAP: No Currently Using BIPAP: No Cardiac: Yes Atrial Fibrillation, Chronic Edema/Swelling, Coronary Artery Disease, Heart Attack, High Cholesterol, Hypertension, Peripheral Vascular Neurological: Yes (POSSIBLE STROKE/ TIA) Stroke, TIA Reproductive Disorders: No Sexually Transmitted Disease: No HIV/AIDS: No Genitourinary: Yes (RENAL INSUFFICIENCY) Benign Prostatic Hyperpl, Prostate Problems, Renal Failure Gastrointestinal: Yes Abdominal Hernia, Gastroesophageal Reflux, Pancreatitis, Polyps, Gall Bladder Disease Musculoskeletal: Yes (OLECRANON BURSITIS, CHRONIC NECK PAIN, DISH SYNDROME) Degenerate Disk Disease, Arthritis, Chronic Back Pain Endocrine: Yes Diabetes, Insulin dep HEENT: Yes Cataract Loss of Vision: Denies Hearing Impairment: Denies Cancer: No Psychosocial: Yes Anxiety Integumentary: No Blood Disorders: No Adverse Reaction/Blood Tranf: No Family Medical History Reviewed Nursing Family Hx Cancer G8 BROTHER Cataract 19 FATHER 19 MOTHER G8 BROTHER G8 BROTHER G8 SISTER Congestive heart failure 19 FATHER 19 MOTHER Family history: Arthritis 19 FATHER 19 MOTHER G8 BROTHER G8 BROTHER G8 SISTER G8 SISTER DAUGHTER SON Family history: Breast disease DAUGHTER Family history: Cardiovascular disease 19 FATHER Family history: Diabetes mellitus 19 FATHER G8 BROTHER G8 SISTER Family history: Hypertension 19 FATHER 19 MOTHER G8 BROTHER G8 BROTHER G8 SISTER G8 SISTER DAUGHTER SON Family history: Thyroid disorder DAUGHTER Heart disease 19 FATHER 19 MOTHER G8 BROTHER Hypercholesterolemia 19 FATHER 19 MOTHER G8 BROTHER G8 BROTHER G8 SISTER Myocardial infarction 19 FATHER 19 MOTHER G8 BROTHER No Family History of: Abdominal aortic aneurysm [place]oshone's disease Alcoholism Aphasia Cancer of colon Chest pain Congenital heart disease Cystic fibrosis Dementia Dysphagia Family history: Allergy Family history: Alzheimer's disease Family history: Asthma Family history: Coronary thrombosis Family history: Gastrointestinal disease Family history: Glaucoma Family history: Osteoporosis Headache Hearing loss Hereditary disease History of - anemia History of - disorder History of - respiratory disease History of drug abuse Human immunodeficiency virus (HIV) seropositivity Infertile Kidney disease Malignant neoplasm of lung Parkinson's disease Prostate cancer Psychotic disorder Seizure disorder Stroke Tuberculosis Visual impairment Physical Exam Vital Signs Vital Signs - First Documented 03/08/18 20:28 Temp 97.0 Pulse 110 Resp 20 B/P (MAP) 118/82 (94) Pulse Ox 99 O2 Delivery Room Air Capillary Refill : Less Than 3 Seconds Height, Weight, BMI Height: 5'11.00" Weight: 181lbs. 0oz. 82.037439bl; 26.1 BMI Method:Stated General Appearance: No Apparent Distress, WD/WN Neck: Full Range of Motion, Normal Inspection, Non Tender Respiratory: Chest Non Tender, Lungs Clear, Normal Breath Sounds, No Accessory Muscle Use, No Respiratory Distress Cardiovascular: Regular Rate, Rhythm, No Edema, No Gallop, No JVD, No Murmur, Normal Peripheral Pulses Neurologic/Psychiatric: Alert, Oriented x3, Normal Mood/Affect Skin: Normal Color, Warm/Dry Progress/Results/Core Measures Results/Orders Lab Results Laboratory Tests Test 03/08/18 20:45 03/08/18 20:50 Range/Units White Blood Count 6.0 4.3-11.0 10^3/uL Red Blood Count 4.18 L 4.35-5.85 10^6/uL Hemoglobin 11.1 L 13.3-17.7 G/DL Hematocrit 35 L 40-54 % Mean Corpuscular Volume 84 80-99 FL Mean Corpuscular Hemoglobin 27 25-34 PG Mean Corpuscular Hemoglobin Concent 32 32-36 G/DL Red Cell Distribution Width 14.8 H 10.0-14.5 % Platelet Count 358 130-400 10^3/uL Mean Platelet Volume 9.1 7.4-10.4 FL Neutrophils (%) (Auto) 67 42-75 % Lymphocytes (%) (Auto) 24 12-44 % Monocytes (%) (Auto) 7 0-12 % Eosinophils (%) (Auto) 2 0-10 % Basophils (%) (Auto) 1 0-10 % Neutrophils # (Auto) 4.0 1.8-7.8 X 10^3 Lymphocytes # (Auto) 1.5 1.0-4.0 X 10^3 Monocytes # (Auto) 0.4 0.0-1.0 X 10^3 Eosinophils # (Auto) 0.1 0.0-0.3 10^3/uL Basophils # (Auto) 0.0 0.0-0.1 10^3/uL Sodium Level 137 135-145 MMOL/L Potassium Level 4.1 3.6-5.0 MMOL/L Chloride Level 108 H 98-107 MMOL/L Carbon Dioxide Level 17 L 21-32 MMOL/L Anion Gap 12 5-14 MMOL/L Blood Urea Nitrogen 12 7-18 MG/DL Creatinine 1.90 H 0.60-1.30 MG/DL Estimat Glomerular Filtration Rate 35 BUN/Creatinine Ratio 6 Glucose Level 313 H 70-105 MG/DL Calcium Level 9.7 8.5-10.1 MG/DL Corrected Calcium 9.3 8.5-10.1 MG/DL Total Bilirubin 0.3 0.1-1.0 MG/DL Aspartate Amino Transf (AST/SGOT) 19 5-34 U/L Alanine Aminotransferase (ALT/SGPT) 15 0-55 U/L Alkaline Phosphatase 62 40-136 U/L Total Protein 7.8 6.4-8.2 GM/DL Albumin 4.5 3.2-4.5 GM/DL Troponin I < 0.30 <0.30 NG/ML My Orders Orders - JOSEE REICH Iv 1000 Ml (Sodium Chloride 0.9%) (03/08/18 20:45) Saline Lock/Iv-Start (03/08/18 20:35) Cbc With Automated Diff (03/08/18 20:35) Comprehensive Metabolic Panel (03/08/18 20:35) Orthostatic Vital Signs (Adult (03/08/18 20:40) Troponin I (03/08/18 21:02) Ekg Tracing (03/08/18 21:02) Vital Signs/I&O 03/08/18 03/08/18 03/08/18 20:28 20:51 22:10 Temp 97.0 97.0 Pulse 110 88 Resp 20 20 B/P (MAP) 118/82 (94) 104/66 (79) 135/81 (99) 100/58 (72) 72/54 (60) Pulse Ox 99 99 O2 Delivery Room Air Blood Pressure Mean: 60 Progress Progress Note : Time: 19:50 Progress Note I have seen and evaluated the patient. His IV fluids are complete at this time. He was reevaluated for orthostatic hypotension and his blood pressure remained greater that 120 systolic at all time. He agrees with plans for discharge, plans for follow up, return precautions were given. Voices no questions or concerns. EKG : EKG Time: 21:04 Rate: 91 Rhythm: Normal Sinus Intervals: Normal ECG Comparisson: Unchanged ECG Impression: Normal Departure Impression Primary Impression: Orthostatic hypotension Disposition: HOME, SELF-CARE Condition: Stable/Unchanged Departure-Patient Inst. Decision time for Depature: 22:00 Referrals: IRAJ HERRERA MD (PCP/Family) Primary Care Physician Patient Instructions: Orthostatic Hypotension (DC) Add. Discharge Instructions: Monitor blood pressure at home should you becomes symptomatic such as lightheaded, dizziness, feeling like you're going to pass out. Drink plenty of fluids like water at home. Call Dr. Herrera's office first thing Sunday for an appointment time. Return back to the emergency room for any worsening symptoms or concerns as needed. All discharge instructions reviewed with patient and/or family. Voiced understanding. JOSEE REICH Mar 08, 2018 20:57
[2018-03-08 21:08] LABS: ALBUMIN 4.5 GM/DL (3.2-4.5); BILIRUBIN,TOTAL 0.3 MG/DL (0.1-1.0); CALCIUM 9.7 MG/DL (8.5-10.1); CREATININE SERUM 1.9 MG/DL (0.60-1.30); POTASSIUM 4.1 MMOL/L (3.6-5.0); TOTAL PROTEIN 7.8 GM/DL (6.4-8.2)
[2018-03-08 22:10] VITALS: BP 135/81
== END 2018-03-08 22:05 | disposition home or self-care (01) ==
LOC: EDUNIT# 20:24 → ER 20:25
DX: I95.1 Orthostatic hypotension (principal); G47.30 Sleep apnea, unspecified; J44.9 Chronic obstructive pulmonary disease, unspecified; I48.91 Unspecified atrial fibrillation; I25.10 Atherosclerotic heart disease of native coronary artery without angina pectoris; I25.2 Old myocardial infarction; E78.00 Pure hypercholesterolemia, unspecified; I10 Essential (primary) hypertension; E11.9 Type 2 diabetes mellitus without complications; F41.9 Anxiety disorder, unspecified; I73.9 Peripheral vascular disease, unspecified; Z86.010 Personal history of colon polyps; Z87.19 Personal history of other diseases of the digestive system; Z82.49 Family history of ischemic heart disease and other diseases of the circulatory system; Z87.448 Personal history of other diseases of urinary system; Z86.73 Personal history of transient ischemic attack (TIA), and cerebral infarction without residual deficits; Z88.8 Allergy status to other drugs, medicaments and biological substances; Z88.0 Allergy status to penicillin; Z88.6 Allergy status to analgesic agent; Z79.01 Long term (current) use of anticoagulants; Z79.82 Long term (current) use of aspirin; Z79.4 Long term (current) use of insulin; Z87.891 Personal history of nicotine dependence; Z95.1 Presence of aortocoronary bypass graft; Z95.5 Presence of coronary angioplasty implant and graft; Z98.890 Other specified postprocedural states
CPT/HCPCS: 36415; 80053; 84484; 85025; 93005; 96360

== ENCOUNTER 2018-03-17 19:43 | Emergency (ER) | payer MEDICARE, MEDICAID ==
[~2018-03-17] VITALS: Ht 180.3 cm; Wt 82.1 kg
--- OUTSIDE RECORDS SUMMARY | 2018-03-17 19:48 | XMS REPORT | Clinical Summary ---
Author Author [facility] Organization [facility] Address Unknown Phone Unavailable Care Team Providers Care Carbon Rod Inserter Name Role Phone Chance Ward PCP Source Comments Some departments are not documenting in the electronic medical record. If you do not see the information that you expected, contact Release of Information in the Health Information Management department at [phone] for further assistance in locating additional records.[facility] Allergies Not on File Current Medications [...] Problem Noted Date Coronary artery disease involving [place] coronary artery 10/24/2016 Overview: 2000 CABG x 4 02/17/12 PTCA BMS to vein graft to the OM 03/02/16 severe in-stent restenosis in the SVG to the OM with successful PCI, no residual stenosis, patent VG to RCA VG to the diag artery and AMANDA to the LAD occluded [place] vessels proximally, small vessel disease distally 09/25/16 [facility] - severe [place] disease, patent graft to RCA, diagonal LAD, probably occluded graft to OM - felt to be reason for chest pain in stent severe restenosis in the SVG to OM with successfull PCI, no residual disease PVD (peripheral vascular disease) ([facility]) 10/24/2016 Overview: 03/02/16 peripheral angio: severe PAD with total occlusion of the post tibial and peroneal artery at the trifurcation, level reconstructed by collateral down at the ankle with occlusion at the ant tibial artery at the ankle level. Mod PAD on LLE down to the trifurcation Carotid artery disease ([facility]) 10/24/2016 Overview: 10/19/16 carotid US - mild stenosis, nonobstructive disease bilaterally PAF (paroxysmal atrial fibrillation) ([facility]) 10/24/2016 Overview: 03/24/16 LINQ implantation [...] of 2 - PCV13) INFLUENZA VACCINE 12/12/2017 Implants Implanted Type Area Sustainability Director Device Expiration Model / Identifier Date Serial / Lot Loop Recorder Loop Recorder Results Not on filefrom Last 3 Months
--- NOTE | 2018-03-17 20:02 | ED Cardiac General ---
History of Present Illness General Chief Complaint: Cardiac/General Problems Stated Complaint: LOW B/P Source: patient Exam Limitations: no limitations History of Present Illness Date Seen by Provider: Mar 17, 2018 Time Seen by Provider: 19:59 Initial Comments To ER per EMS from his home in [place] with reports of hypotension. He states that he stood up and immediately felt very lightheaded as if he was going to fall forward. Blood pressure was checked and found to be 84 over 50s. He's had several episodes of hypotension over the past several months. In fact, all of his blood pressure medications have been stopped. Despite stopping his antihypertensives the hypotensive episodes persist frequently. He states "I just don't want to do nothin'" EMS administered 350 mL bolus of normal saline and rechecked his blood pressure and found him to be 114/50 and much better at this time.. Timing/Duration: changing over time Severity: moderate Activities at Onset: none Prior CP/Workup: no prior chest pain NTG SL FIRE OPERATIONS FORESTER: No ASA po FIRE OPERATIONS FORESTER: No Associated Systoms: No Headaches, No Nausea/Vomiting Allergies and Home Medications Allergies Coded Allergies: celecoxib (Unverified Allergy, Mild, TAKES ASPIRIN AT HOME, 12/21/14) diclofenac (Unverified Allergy, Mild, TAKES ASPIRIN AT HOME, 12/21/14) naproxen (Unverified Allergy, Mild, TAKES ASPIRIN AT HOME, 12/21/14) rosuvastatin (Unverified Allergy, Mild, 08/14/08) Penicillins (Verified Allergy, Unknown, 08/03/05) amoxicillin (Verified Allergy, Unknown, 08/03/05) fenofibrate (Unverified Allergy, Unknown, 06/05/16) simvastatin (Unverified Allergy, Unknown, 06/05/16) Uncoded Allergies: GEMIFIBOROZIL (Allergy, Unknown, 06/05/16) Home Medications Amiodarone HCl 200 Mg Tablet, 200 MG PO BID, (Reported) Apixaban 5 Mg Tablet, 5 MG PO BID, (Reported) Baclofen 10 Mg Tablet, 10 MG PO TID PRN for MUSCLE SPASMS, (Reported) Benzonatate 100 Mg Capsule, 100 MG PO Q8H Prescribed by: JOSEE REICH on 01/13/18 0495 Digoxin 125 Mcg Tablet, 125 MCG PO DAILY, (Reported) Fenofibrate,Micronized 134 Mg Capsule, 134 MG PO DAILY, (Reported) Gabapentin 300 Mg Capsule, 600 MG PO HS, (Reported) TAKES 2 (300 MG) CAPSULES Insulin Detemir 100 Unit/1 Ml Insuln.pen, 25 UNIT SQ BID, (Reported) Metoclopramide HCl 5 Mg Tab.rapdis, 5 MG PO ACHS, (Reported) Nitroglycerin 0.4 Mg Tab.subl, 0.4 MG SL UD PRN for CHEST PAIN, (Reported) MAX OF 3 TABS IN 15 MINUTES / CALL 911 IF PAIN REMAINS AFTER 5 MINUTES Pentoxifylline 400 Mg Tablet.er, 400 MG PO BID, (Reported) Pravastatin Sodium 80 Mg Tablet, 80 MG PO HS, (Reported) Tamsulosin HCl 0.4 Mg Cap.er.24h, 0.4 MG PO DAILY, (Reported) Trazodone HCl 50 Mg Tablet, 50 MG PO HS, (Reported) Patient Home Medication List Home Medication List Reviewed: Yes Review of Systems Review of Systems Constitutional: see HPI EENTM: No Symptoms Reported Respiratory: No Symptoms Reported Cardiovascular: See HPI; Denies Chest Pain; Lightheadedness Gastrointestinal: No Symptoms Reported Genitourinary: No Symptoms Reported Musculoskeletal: no symptoms reported Skin: no symptoms reported Psychiatric/Neurological: No Symptoms Reported Endocrine: No Symptoms Reported Hematologic/Lymphatic: No Symptoms Reported Past Mleelvs-Xmpvgs-Nlulnq Hx Patient Social History Alcohol Beverage of Choice: Beer Type Used: Cigarettes Former Smoker, Quit: Mar 01, 2000 2nd Hand Smoke Exposure: No Recent Foreign Travel: No Contact w/Someone Who Travel: No Recent Hopitalizations: No Immunizations Up To Date Tetanus Booster (TDap): Less than 5yrs PED Vaccines UTD: No Date of Pneumonia Vaccine: Jun 14, 2015 Date of Influenza Vaccine: Feb 12, 2016 Seasonal Allergies Seasonal Allergies: No Past Medical History Surgeries: Yes Abdominal, Angioplasty, Cardiac, CABG, Coronary Stent, Eye Surgery, Gallbladder , Joint Replacement, Open Heart Surgery, Orthopedic, Vascular Surgery Respiratory: Yes (CHRONIC DYSPNEA ON EXERTION) Sleep Apnea, COPD Currently Using CPAP: No Currently Using BIPAP: No Cardiac: Yes Atrial Fibrillation, Chronic Edema/Swelling, Coronary Artery Disease, Heart Attack, High Cholesterol, Hypertension, Peripheral Vascular Neurological: Yes (POSSIBLE STROKE/ TIA) Stroke, TIA Reproductive Disorders: No Sexually Transmitted Disease: No HIV/AIDS: No Genitourinary: Yes (RENAL INSUFFICIENCY) Benign Prostatic Hyperpl, Prostate Problems, Renal Failure Gastrointestinal: Yes Abdominal Hernia, Gastroesophageal Reflux, Pancreatitis, Polyps, Gall Bladder Disease Musculoskeletal: Yes (OLECRANON BURSITIS, CHRONIC NECK PAIN, DISH SYNDROME) Degenerate Disk Disease, Arthritis, Chronic Back Pain Endocrine: Yes Diabetes, Insulin dep HEENT: Yes Cataract Loss of Vision: Denies Hearing Impairment: Denies Cancer: No Psychosocial: Yes Anxiety Integumentary: No Blood Disorders: No Adverse Reaction/Blood Tranf: No Family Medical History Cancer G8 BROTHER Cataract 19 FATHER 19 MOTHER G8 BROTHER G8 BROTHER G8 SISTER Congestive heart failure 19 FATHER 19 MOTHER Family history: Arthritis 19 FATHER 19 MOTHER G8 BROTHER G8 BROTHER G8 SISTER G8 SISTER DAUGHTER SON Family history: Breast disease DAUGHTER Family history: Cardiovascular disease 19 FATHER Family history: Diabetes mellitus 19 FATHER G8 BROTHER G8 SISTER Family history: Hypertension 19 FATHER 19 MOTHER G8 BROTHER G8 BROTHER G8 SISTER G8 SISTER DAUGHTER SON Family history: Thyroid disorder DAUGHTER Heart disease 19 FATHER 19 MOTHER G8 BROTHER Hypercholesterolemia 19 FATHER 19 MOTHER G8 BROTHER G8 BROTHER G8 SISTER Myocardial infarction 19 FATHER 19 MOTHER G8 BROTHER No Family History of: Abdominal aortic aneurysm [place]'s disease Alcoholism Aphasia Cancer of colon Chest pain Congenital heart disease Cystic fibrosis Dementia Dysphagia Family history: Allergy Family history: Alzheimer's disease Family history: Asthma Family history: Coronary thrombosis Family history: Gastrointestinal disease Family history: Glaucoma Family history: Osteoporosis Headache Hearing loss Hereditary disease History of - anemia History of - disorder History of - respiratory disease History of drug abuse Human immunodeficiency virus (HIV) seropositivity Infertile Kidney disease Malignant neoplasm of lung Parkinson's disease Prostate cancer Psychotic disorder Seizure disorder Stroke Tuberculosis Visual impairment Physical Exam Vital Signs Vital Signs - First Documented 03/17/18 19:45 Temp 97.7 Pulse 99 Resp 16 B/P (MAP) 122/87 (99) Capillary Refill : Height, Weight, BMI Height: 5'11.00" Weight: 181lbs. 0oz. 82.587713yv; 26.1 BMI Method:Stated General Appearance: No Apparent Distress, WD/WN HEENT: PERRL/EOMI, TMs Normal Neck: Full Range of Motion, Normal Inspection Respiratory: Lungs Clear, Normal Breath Sounds, No Accessory Muscle Use, No Respiratory Distress Cardiovascular: Regular Rate, Rhythm, Normal Peripheral Pulses Gastrointestinal: Normal Bowel Sounds, Non Tender, Soft Neurologic/Psychiatric: Alert, Oriented x3, No Motor/Sensory Deficits Skin: Normal Color, Warm/Dry Progress/Results/Core Measures Results/Orders Lab Results Laboratory Tests Test 03/17/18 19:54 Range/Units White Blood Count 4.8 4.3-11.0 10^3/uL Red Blood Count 3.74 L 4.35-5.85 10^6/uL Hemoglobin 9.8 L 13.3-17.7 G/DL Hematocrit 31 L 40-54 % Mean Corpuscular Volume 84 80-99 FL Mean Corpuscular Hemoglobin 26 25-34 PG Mean Corpuscular Hemoglobin Concent 31 L 32-36 G/DL Red Cell Distribution Width 14.3 10.0-14.5 % Platelet Count 295 130-400 10^3/uL Mean Platelet Volume 9.4 7.4-10.4 FL Neutrophils (%) (Auto) 58 42-75 % Lymphocytes (%) (Auto) 29 12-44 % Monocytes (%) (Auto) 11 0-12 % Eosinophils (%) (Auto) 3 0-10 % Basophils (%) (Auto) 1 0-10 % Neutrophils # (Auto) 2.8 1.8-7.8 X 10^3 Lymphocytes # (Auto) 1.4 1.0-4.0 X 10^3 Monocytes # (Auto) 0.5 0.0-1.0 X 10^3 Eosinophils # (Auto) 0.1 0.0-0.3 10^3/uL Basophils # (Auto) 0.0 0.0-0.1 10^3/uL Sodium Level 139 135-145 MMOL/L Potassium Level 3.6 3.6-5.0 MMOL/L Chloride Level 110 H 98-107 MMOL/L Carbon Dioxide Level 19 L 21-32 MMOL/L Anion Gap 10 5-14 MMOL/L Blood Urea Nitrogen 13 7-18 MG/DL Creatinine 1.67 H 0.60-1.30 MG/DL Estimat Glomerular Filtration Rate 40 BUN/Creatinine Ratio 8 Glucose Level 251 H 70-105 MG/DL Calcium Level 9.3 8.5-10.1 MG/DL Corrected Calcium 9.4 8.5-10.1 MG/DL Total Bilirubin 0.3 0.1-1.0 MG/DL Aspartate Amino Transf (AST/SGOT) 17 5-34 U/L Alanine Aminotransferase (ALT/SGPT) 10 0-55 U/L Alkaline Phosphatase 58 40-136 U/L Troponin I < 0.30 <0.30 NG/ML B-Type Natriuretic Peptide 13.1 <100.0 PG/ML Total Protein 6.6 6.4-8.2 GM/DL Albumin 3.9 3.2-4.5 GM/DL My Orders Orders - LEONARDO SALGADO APRN Cbc With Automated Diff (03/17/18 19:53) Comprehensive Metabolic Panel (03/17/18 19:53) Ua Culture If Indicated (03/17/18 19:53) Ekg Tracing (03/17/18 19:53) Troponin I (03/17/18 19:53) BNP (03/17/18 19:53) Vital Signs/I&O 03/17/18 19:45 Temp 97.7 Pulse 99 Resp 16 B/P (MAP) 122/87 (99) Departure Communication (Admissions) He may benefit from Gertrudef but he is diabetic so that would create some potential issues with glucose control. Impression Primary Impression: Orthostatic hypotension Disposition: HOME, SELF-CARE Condition: Stable Departure-Patient Inst. Decision time for Depature: 20:48 Referrals: IRAJ CULP MD (PCP/Family) Primary Care Physician Patient Instructions: Orthostatic Hypotension Add. Discharge Instructions: 1. Try to increase the salt intake in your diet to help retain fluids. If this fails you may discuss medication called Tanya with Dr. Culp. All discharge instructions reviewed with patient and/or family. Voiced understanding. Copy Copies To 1: IRAJ CULP MD, PETER J APRN Mar 17, 2018 20:02
[2018-03-17 20:04] LABS: BASOPHILS % (AUTO) 1 % (0-10); EOSINOPHILS # (AUTO) 0.1 10^3/uL (0.0-0.3); EOSINOPHILS % (AUTO) 3 % (0-10); HEMATOCRIT 31 % (40-54); HEMOGLOBIN 9.8 G/DL (13.3-17.7); LYMPHOCYTES # (AUTO) 1.4 X 10^3 (1.0-4.0); LYMPHOCYTES % (AUTO) 29 % (12-44); MEAN CORPUSCULAR HEMOGLOBIN 26 PG (25-34); MEAN CORPUSCULAR HGB CONC 31 G/DL (32-36); MEAN CORPUSCULAR VOLUME 84 FL (80-99); MEAN PLATELET VOLUME 9.4 FL (7.4-10.4); MONOCYTES # (AUTO) 0.5 X 10^3 (0.0-1.0); MONOCYTES % (AUTO) 11 % (0-12); NEUTROPHILS # (AUTO) 2.8 X 10^3 (1.8-7.8); NEUTROPHILS % (AUTO) 58 % (42-75); PLATELET COUNT 295 10^3/uL (130-400); RED BLOOD COUNT 3.74 10^6/uL (4.35-5.85); RED CELL DISTRIBUTION WIDTH 14.3 % (10.0-14.5); WHITE BLOOD COUNT 4.8 10^3/uL (4.3-11.0)
[2018-03-17 20:26] LABS: ALANINE AMINOTRANSFERASE 10 U/L (0-55); ALBUMIN 3.9 GM/DL (3.2-4.5); ALKALINE PHOSPHATASE 58 U/L (40-136); BILIRUBIN,TOTAL 0.3 MG/DL (0.1-1.0); BUN/CREATININE RATIO 8; CALCIUM 9.3 MG/DL (8.5-10.1); CARBON DIOXIDE 19 MMOL/L (21-32); CHLORIDE 110 MMOL/L (98-107); CREATININE SERUM 1.67 MG/DL (0.60-1.30); GFR ESTIMATED 40; GLUCOSE 251 MG/DL (70-105); POTASSIUM 3.6 MMOL/L (3.6-5.0); SODIUM 139 MMOL/L (135-145); TOTAL PROTEIN 6.6 GM/DL (6.4-8.2)
[2018-03-17] MEDS ORDERED: TOPI25TA10 (20:29)
[2018-03-17] MEDS ORDERED: FLUT16SP22 (20:29)
[2018-03-17] MEDS ORDERED: METO5TAB PO (20:31)
[2018-03-17] MEDS ORDERED: AMIO200T4 PO (20:32)
[2018-03-17 21:09] VITALS: BP 119/73
== END 2018-03-17 21:13 | disposition home or self-care (01) ==
LOC: EDUNIT# 19:43 → ER 19:44
DX: I95.1 Orthostatic hypotension (principal); J44.9 Chronic obstructive pulmonary disease, unspecified; I48.91 Unspecified atrial fibrillation; I25.10 Atherosclerotic heart disease of native coronary artery without angina pectoris; I25.2 Old myocardial infarction; E78.00 Pure hypercholesterolemia, unspecified; K21.9 Gastro-esophageal reflux disease without esophagitis; E11.9 Type 2 diabetes mellitus without complications; F41.9 Anxiety disorder, unspecified; N40.1 Benign prostatic hyperplasia with lower urinary tract symptoms; I10 Essential (primary) hypertension; Z86.73 Personal history of transient ischemic attack (TIA), and cerebral infarction without residual deficits; Z88.6 Allergy status to analgesic agent; Z88.0 Allergy status to penicillin; Z88.1 Allergy status to other antibiotic agents; Z88.8 Allergy status to other drugs, medicaments and biological substances; Z79.4 Long term (current) use of insulin; Z95.1 Presence of aortocoronary bypass graft
CPT/HCPCS: 36415; 80053; 83880; 84484; 85025; 93005

== ENCOUNTER → 2018-05-20 | Outpatient (CLI) | payer MEDICARE, MEDICAID ==
[~2018-05-20] MED LIST changes: +AMIO200T4 PO; +FLUT16SP22; +METO5TAB PO; +TOPI25TA10
--- NOTE | 2018-05-20 10:21 | Diagnostic Imaging Report ---
INDICATION: Chronic renal disease. Bilateral renal sonography performed in the routine fashion. FINDINGS: The right kidney measured 10.9 x 6.0 x 5.1 cm. The left kidney measured 11.7 x 5.9 x 5.6 cm. Both kidneys showed normal cortical echogenicity and thickness with no hydronephrosis or mass. The urinary bladder was partially filled and therefore its evaluation is limited. There are bilateral ureteral jets visualized. There is some questionable bladder wall thickening versus artifact underdistention. IMPRESSION: Normal size kidneys bilaterally with no hydronephrosis or mass. Bladder evaluation is limited because the bladder is not fully distended, there is questionable bladder wall thickening versus artifact from under distention. There are bilateral ureteral jets. Dictated by: Dictated on workstation # [id number]
== END ==
LOC: RAD 08:53
PROVIDERS: ATTEND Internal Medicine Nephrology
DX: I12.9 Hypertensive chronic kidney disease with stage 1 through stage 4 chronic kidney disease, or unspecified chronic kidney disease (principal); N18.3 Chronic kidney disease, stage 3 (moderate)
CPT/HCPCS: 76770

== ENCOUNTER → 2018-05-22 | Outpatient (CLI) | payer MEDICARE, MEDICAID ==
--- NOTE | 2018-05-22 17:47 | Diagnostic Imaging Report ---
INDICATION: Low back pain. Lumbar spine. FINDINGS: AP and lateral views of the lumbar spine show ossification of L5-S1 disc. There are large anterior osteophytes at each level of the lumbar spine. There is slight narrowing of the L4-5 disc space posteriorly. There is some anterior wedging of the L1 vertebral body. IMPRESSION: Severe spondylosis deformans. No acute abnormality seen. Dictated by: Dictated on workstation # [id number]
--- NOTE | 2018-05-22 19:10 | Diagnostic Imaging Report ---
INDICATION: Back pain. Thoracic spine. FINDINGS: AP and lateral views of the thoracic spine show spondylosis with large bridging osteophytes forming at multiple levels. There are no compression fractures seen in the thoracic spine. There appears to be some anterior wedging of L1. IMPRESSION: [id number] spondylosis deformans. No acute abnormalities seen. Dictated by: Dictated on workstation # [id number]
== END ==
LOC: RAD 16:09
PROVIDERS: ATTEND Family Medicine
DX: M47.816 Spondylosis without myelopathy or radiculopathy, lumbar region (principal); M47.814 Spondylosis without myelopathy or radiculopathy, thoracic region; Z87.81 Personal history of (healed) traumatic fracture
CPT/HCPCS: 72072; 72100

== ENCOUNTER 2018-06-07 12:43 | Outpatient (RCR) | payer MEDICARE, MEDICAID ==
[2018-05-24 12:58] VITALS: BP 115/73
--- NOTE | 2018-05-27 13:01 | NUR ---
PATIENT ARRIVED FOR VENOFER INJECTION TODAY AND NOT SCHEDULED UNTIL SUNDAY.THIS RN PHONED DR. HERRERA AND INFORMED AND HE SAID MAY GET INFUSION TODAY BUT AFTER THAT THEN WEEKLY. THIS RN INFORMED JUST RECEIVED ON May AND HE SAID TO GIVE TODAY
[2018-05-27] MEDS: IRON SUCROSE 200 MG/10 ML (VENOFER) VIAL IV SCH (13:15)
[2018-05-27 13:16] VITALS: BP 137/86
[~2018-06-07] VITALS: Ht 180.3 cm; Wt 82.1 kg
[~2018-06-07 12:43] MED LIST changes: +IRON SUCROSE 200 MG/10 ML (VENOFER) VIAL IV SCH
[2018-06-07] MEDS: IRON SUCROSE 200 MG/10 ML (VENOFER) VIAL IV SCH ×2 (12:54→12:55)
[2018-06-07 13:20] VITALS: BP 139/86
[2018-07-24] MEDS ORDERED: PANT40TA2 PO (18:43)
[2018-07-31] MEDS ORDERED: HYOS0.1283 SL (04:11)
== END 2018-08-22 | disposition home or self-care (01) ==
LOC: SDC 12:43
PROVIDERS: ATTEND Family Medicine
DX: D50.8 Other iron deficiency anemias (principal); R53.83 Other fatigue; I95.89 Other hypotension
CPT/HCPCS: 96365

== ENCOUNTER 2018-06-23 09:29 | Emergency (ER) | payer MEDICARE, MEDICAID ==
[~2018-06-23] VITALS: Ht 182.9 cm; Wt 83.5 kg
[~2018-06-23 09:29] MED LIST changes: -IRON SUCROSE 200 MG/10 ML (VENOFER) VIAL IV SCH
[2018-06-23 10:59] LABS: ALANINE AMINOTRANSFERASE 16 U/L (0-55); ALBUMIN 4.1 GM/DL (3.2-4.5); ALKALINE PHOSPHATASE 64 U/L (40-136); BILIRUBIN,TOTAL 0.4 MG/DL (0.1-1.0); BUN/CREATININE RATIO 7; CALCIUM 9.9 MG/DL (8.5-10.1); CARBON DIOXIDE 24 MMOL/L (21-32); CHLORIDE 109 MMOL/L (98-107); GFR ESTIMATED 46; GLUCOSE 129 MG/DL (70-105); POTASSIUM 3.7 MMOL/L (3.6-5.0); SODIUM 141 MMOL/L (135-145); TOTAL PROTEIN 7.1 GM/DL (6.4-8.2)
--- NOTE | 2018-06-23 11:08 | ED Cardiac General ---
History of Present Illness General Chief Complaint: Cardiac/General Problems Stated Complaint: HIGH BLOOD PRESSURE, SOA Nursing Triage Note: PT AMBULATES TO ROOM 4 PT CO OF HAVING DIZZINESS EARLIER TODAY DENIES DIZZINESS AT THIS X, AND HAVING HTN, PT STATES DR TOOK HIM OFF OF HTN MEDS. STATES HAS HAD COLD FOR A COUPLE WEEKS Source: patient, family Exam Limitations: no limitations History of Present Illness Date Seen by Provider: Jun 23, 2018 Time Seen by Provider: 10:30 Initial Comments This 78-year-old white male presents with a complaint of headache that began last night dizziness, and a concern that he has elevated blood pressure. Patient has a history of cardiac disease. He is in the care of Dr. Salazar. At this juncture patient is complaining of a headache that Tylenol does not relieve last night. He has no dizziness. He has no associated chest pain or palpitations. He's had no shortness of breath, fever, or chill. The patient is primarily concerned that he may be at risk for stroke or heart attack. Allergies and Home Medications Allergies Coded Allergies: celecoxib (Unverified Allergy, Mild, TAKES ASPIRIN AT HOME, 12/21/14) diclofenac (Unverified Allergy, Mild, TAKES ASPIRIN AT HOME, 12/21/14) naproxen (Unverified Allergy, Mild, TAKES ASPIRIN AT HOME, 12/21/14) rosuvastatin (Unverified Allergy, Mild, 08/14/08) Penicillins (Verified Allergy, Unknown, 08/03/05) amoxicillin (Verified Allergy, Unknown, 08/03/05) fenofibrate (Unverified Allergy, Unknown, 06/05/16) simvastatin (Unverified Allergy, Unknown, 06/05/16) Uncoded Allergies: GEMIFIBOROZIL (Allergy, Unknown, 06/05/16) Home Medications Amiodarone HCl 200 Mg Tablet, 200 MG PO BID, (Reported) Apixaban 5 Mg Tablet, 5 MG PO BID, (Reported) Baclofen 10 Mg Tablet, 10 MG PO TID PRN for MUSCLE SPASMS, (Reported) Benzonatate 100 Mg Capsule, 100 MG PO Q8H Prescribed by: JOSEE REICH on 01/13/18 3398 Digoxin 125 Mcg Tablet, 125 MCG PO DAILY, (Reported) Fenofibrate,Micronized 134 Mg Capsule, 134 MG PO DAILY, (Reported) Gabapentin 300 Mg Capsule, 600 MG PO HS, (Reported) TAKES 2 (300 MG) CAPSULES Insulin Detemir 100 Unit/1 Ml Insuln.pen, 25 UNIT SQ BID, (Reported) Metoclopramide HCl 5 Mg Tab.rapdis, 5 MG PO ACHS, (Reported) Nitroglycerin 0.4 Mg Tab.subl, 0.4 MG SL UD PRN for CHEST PAIN, (Reported) MAX OF 3 TABS IN 15 MINUTES / CALL 911 IF PAIN REMAINS AFTER 5 MINUTES Pentoxifylline 400 Mg Tablet.er, 400 MG PO BID, (Reported) Pravastatin Sodium 80 Mg Tablet, 80 MG PO HS, (Reported) Tamsulosin HCl 0.4 Mg Cap.er.24h, 0.4 MG PO DAILY, (Reported) Trazodone HCl 50 Mg Tablet, 50 MG PO HS, (Reported) Patient Home Medication List Home Medication List Reviewed: Yes Review of Systems Review of Systems Constitutional: No chills; dizziness; No fever EENTM: No Blurred Vision; Other Respiratory: Denies Cough Gastrointestinal: Denies Abdominal Pain, Denies Difficulty Swallowing Genitourinary: Denies Burning, Denies Frequency Musculoskeletal: No back pain Skin: No change in color, No rash Psychiatric/Neurological: No Symptoms Reported Endocrine: No Symptoms Reported Hematologic/Lymphatic: No Symptoms Reported Past [id number] Hx Patient Social History Alcohol Use: Denies Use Alcohol Beverage of Choice: Beer Recreational Drug Use: No Smoking Status: Former Smoker Type Used: Cigarettes Former Smoker, Quit: Apr 12, 2000 2nd Hand Smoke Exposure: No Recent Foreign Travel: No Contact w/Someone Who Travel: No Recent Infectious Disease Expo: No Recent Hopitalizations: No Immunizations Up To Date Tetanus Booster (TDap): Less than 5yrs PED Vaccines UTD: No Date of Pneumonia Vaccine: Mar 08, 2018 Date of Influenza Vaccine: Mar 08, 2018 Seasonal Allergies Seasonal Allergies: No Past Medical History Surgeries: Yes Abdominal, Angioplasty, Cardiac, CABG, Coronary Stent, Eye Surgery, Gallbladder , Joint Replacement, Open Heart Surgery, Orthopedic, Vascular Surgery Respiratory: Yes (CHRONIC DYSPNEA ON EXERTION) Sleep Apnea, COPD Currently Using CPAP: No Currently Using BIPAP: No Cardiac: Yes Atrial Fibrillation, Chronic Edema/Swelling, Coronary Artery Disease, Heart Attack, High Cholesterol, Hypertension, Peripheral Vascular Neurological: Yes (POSSIBLE STROKE/ TIA) Stroke, TIA Reproductive Disorders: No Sexually Transmitted Disease: No HIV/AIDS: No Genitourinary: Yes (RENAL INSUFFICIENCY) Benign Prostatic Hyperpl, Prostate Problems, Renal Failure Gastrointestinal: Yes Abdominal Hernia, Gastroesophageal Reflux, Pancreatitis, Polyps, Gall Bladder Disease Musculoskeletal: Yes (OLECRANON BURSITIS, CHRONIC NECK PAIN, DISH SYNDROME) Degenerate Disk Disease, Arthritis, Chronic Back Pain Endocrine: Yes Diabetes, Insulin dep HEENT: Yes Cataract Loss of Vision: Denies Hearing Impairment: Denies Cancer: No Psychosocial: Yes Anxiety Integumentary: No Blood Disorders: No Adverse Reaction/Blood Tranf: No Family Medical History Cancer G8 BROTHER Cataract 19 FATHER 19 MOTHER G8 BROTHER G8 BROTHER G8 SISTER Congestive heart failure 19 FATHER 19 MOTHER Family history: Arthritis 19 FATHER 19 MOTHER G8 BROTHER G8 BROTHER G8 SISTER G8 SISTER DAUGHTER SON Family history: Breast disease DAUGHTER Family history: Cardiovascular disease 19 FATHER Family history: Diabetes mellitus 19 FATHER G8 BROTHER G8 SISTER Family history: Hypertension 19 FATHER 19 MOTHER G8 BROTHER G8 BROTHER G8 SISTER G8 SISTER DAUGHTER SON Family history: Thyroid disorder DAUGHTER Heart disease 19 FATHER 19 MOTHER G8 BROTHER Hypercholesterolemia 19 FATHER 19 MOTHER G8 BROTHER G8 BROTHER G8 SISTER Myocardial infarction 19 FATHER 19 MOTHER G8 BROTHER No Family History of: Abdominal aortic aneurysm Pickaway's disease Alcoholism Aphasia Cancer of colon Chest pain Congenital heart disease Cystic fibrosis Dementia Dysphagia Family history: Allergy Family history: Alzheimer's disease Family history: Asthma Family history: Coronary thrombosis Family history: Gastrointestinal disease Family history: Glaucoma Family history: Osteoporosis Headache Hearing loss Hereditary disease History of - anemia History of - disorder History of - respiratory disease History of drug abuse Human immunodeficiency virus (HIV) seropositivity Infertile Kidney disease Malignant neoplasm of lung Parkinson's disease Prostate cancer Psychotic disorder Seizure disorder Stroke Tuberculosis Visual impairment Physical Exam Vital Signs Vital Signs - First Documented 06/23/18 09:46 Temp 97.6 Pulse 86 Resp 12 B/P (MAP) 167/91 (116) Pulse Ox 98 O2 Delivery Room Air Capillary Refill : Less Than 3 Seconds Height, Weight, BMI Height: 6'0" Weight: 184lbs. 0.0oz. 83.840965ux; 26.1 BMI Method:Stated General Appearance: No Apparent Distress, WD/WN HEENT: Normal ENT Inspection Neck: Normal Inspection Respiratory: Lungs Clear Cardiovascular: Regular Rate, Rhythm Gastrointestinal: Normal Bowel Sounds Extremity: Normal Inspection Neurologic/Psychiatric: Alert, Oriented x3, No Motor/Sensory Deficits Skin: Normal Color, Warm/Dry Progress/Results/Core Measures Results/Orders Lab Results Laboratory Tests Test 06/23/18 09:40 Range/Units Sodium Level 141 135-145 MMOL/L Potassium Level 3.7 3.6-5.0 MMOL/L Chloride Level 109 H 98-107 MMOL/L Carbon Dioxide Level 24 21-32 MMOL/L Anion Gap 8 5-14 MMOL/L Blood Urea Nitrogen 10 7-18 MG/DL Creatinine 1.50 H 0.60-1.30 MG/DL Estimat Glomerular Filtration Rate 46 BUN/Creatinine Ratio 7 Glucose Level 129 H 70-105 MG/DL Calcium Level 9.9 8.5-10.1 MG/DL Corrected Calcium 9.8 8.5-10.1 MG/DL Total Bilirubin 0.4 0.1-1.0 MG/DL Aspartate Amino Transf (AST/SGOT) 21 5-34 U/L Alanine Aminotransferase (ALT/SGPT) 16 0-55 U/L Alkaline Phosphatase 64 40-136 U/L Troponin I < 0.028 <0.028 NG/ML B-Type Natriuretic Peptide 21.8 <100.0 PG/ML Total Protein 7.1 6.4-8.2 GM/DL Albumin 4.1 3.2-4.5 GM/DL My Orders Orders - FAMILIA JIMENES MD Ct Head Wo (06/23/18 10:36) Ekg Tracing (06/23/18 10:36) Troponin I (06/23/18 10:36) Comprehensive Metabolic Panel (06/23/18 10:36) BNP (06/23/18 10:36) Hydrocodone/Apap 5/325 Tablet (Lortab 5 (06/23/18 11:15) Medications Given in ED Current Medications Medications Dose Ordered Sig/Alka Route Start Time Stop Time Status Last Admin Dose Admin Acetaminophen/ Hydrocodone Bitart 1 tab ONCE ONCE PO 06/23/18 11:15 06/23/18 11:16 DC 06/23/18 11:12 1 TAB Vital Signs/I&O 06/23/18 09:46 Temp 97.6 Pulse 86 Resp 12 B/P (MAP) 167/91 (116) Pulse Ox 98 O2 Delivery Room Air Blood Pressure Mean: 116 Progress Progress Note : Time: 11:56 Progress Note The patient's EKG demonstrated normal sinus rhythm without any acute current of injury or dysrhythmia. The patient's laboratory evaluation was similarly benign with a normal troponin and d-dimer. The patient's CT of the head demonstrated evidence of no acute pathology. The patient's headache abated while he was in the emergency department and he was ready to be discharged. Next I discussed the findings with the patient and his . They will follow up with her primary care physician tomorrow. I sent a small prescription for Vicodin should the patient have further headache. I see return if any problems or questions. Departure Impression Primary Impression: Head ache Qualified Codes: R51 - Headache Disposition: 01 HOME, SELF-CARE Condition: Improved Departure-Patient Inst. Decision time for Depature: 11:59 Referrals: IRAJ HERRERA MD (PCP/Family) Primary Care Physician Patient Instructions: HEADACHE Add. Discharge Instructions: Vicodin should your headache recur. Follow up with your doctor tomorrow. Return of any problems or questions. All discharge instructions reviewed with patient and/or family. Voiced understanding. FAMILIA JIMENES MD Jun 23, 2018 11:07
[2018-06-23] MEDS ORDERED: HYDROcodone/APAP 5 MG/325 MG (LORTAB) TAB PO ONE (11:15)
--- NOTE | 2018-06-23 11:51 | Diagnostic Imaging Report ---
PROCEDURE: CT head without contrast. TECHNIQUE: Multiple contiguous axial images were obtained through the brain without the use of intravenous contrast. INDICATION: Dizziness and hypertension. Comparison is made with prior head CT from 06/21/2017. FINDINGS: Ventricles and sulci are stable in appearance. There is no sulcal effacement. There is no midline shift. No acute intra-axial or extra-axial hemorrhage is detected. Cisterns are patent. Visualized paranasal sinuses are clear. IMPRESSION: No acute intracranial process is detected. Dictated by: Dictated on workstation # [id number]
[2018-06-23 12:13] VITALS: BP 157/99
== END 2018-06-23 12:12 | disposition home or self-care (01) ==
LOC: EDUNIT# 09:29 → ER 09:31
DX: R51 Headache (principal); G47.30 Sleep apnea, unspecified; J44.9 Chronic obstructive pulmonary disease, unspecified; I48.91 Unspecified atrial fibrillation; I25.10 Atherosclerotic heart disease of native coronary artery without angina pectoris; I25.2 Old myocardial infarction; E78.00 Pure hypercholesterolemia, unspecified; I10 Essential (primary) hypertension; I73.9 Peripheral vascular disease, unspecified; K21.9 Gastro-esophageal reflux disease without esophagitis; E11.9 Type 2 diabetes mellitus without complications; F41.9 Anxiety disorder, unspecified; Z82.49 Family history of ischemic heart disease and other diseases of the circulatory system; Z86.010 Personal history of colon polyps; Z87.448 Personal history of other diseases of urinary system; Z86.73 Personal history of transient ischemic attack (TIA), and cerebral infarction without residual deficits; Z88.8 Allergy status to other drugs, medicaments and biological substances; Z88.0 Allergy status to penicillin; Z88.6 Allergy status to analgesic agent; Z79.01 Long term (current) use of anticoagulants; Z79.4 Long term (current) use of insulin; Z87.891 Personal history of nicotine dependence; Z98.61 Coronary angioplasty status; Z95.5 Presence of coronary angioplasty implant and graft; Z95.1 Presence of aortocoronary bypass graft; Z98.890 Other specified postprocedural states
CPT/HCPCS: 36415; 70450; 80053; 83880; 84484; 93005

== ENCOUNTER → 2018-07-17 | Outpatient (CLI) | payer MEDICARE, MEDICAID | LOC: CARD 12:42 | PROVIDERS: ATTEND Internal Medicine Cardiovascular Disease | DX: I25.10 Atherosclerotic heart disease of native coronary artery without angina pectoris (principal); I73.9 Peripheral vascular disease, unspecified; E78.5 Hyperlipidemia, unspecified; I48.0 Paroxysmal atrial fibrillation; K21.9 Gastro-esophageal reflux disease without esophagitis; I07.1 Rheumatic tricuspid insufficiency | CPT/HCPCS: 93306 ==

== ENCOUNTER 2018-07-24 16:36 | Emergency (ER) | payer MEDICARE, MEDICAID ==
[~2018-07-24] VITALS: Ht 193 cm; Wt 83.5 kg
--- OUTSIDE RECORDS SUMMARY | 2018-07-24 16:42 | XMS REPORT | Clinical Summary ---
Author Author [facility] Organization [facility] Address Unknown Phone Unavailable Care Team Providers Care Knocker Off Name Role Phone Chance Ward PCP Source Comments Some departments are not documenting in the electronic medical record. If you do not see the information that you expected, contact Release of Information in the Health Information Management department at [phone] for further assistance in locating additional records.[facility] Allergies Not on File Medications End Date Status Medication Sig Dispensed Refills Start Date Active pravastatin (PRAVACHOL) Take 80 mg by 0 80 mg tablet mouth at bedtime daily. Active pentoxifylline ER Take 400 mg 0 (TRENTAL) 400 mg tablet by mouth three times daily. Take with food. Active montelukast (SINGULAIR) Take 10 mg by 0 10 mg tablet mouth at bedtime daily. Active cilostazol(+) (PLETAL) Take 100 mg 0 100 mg tablet by mouth twice daily. Take on an empty stomach at least 30 minutes before or 2 hours after food. Active aspirin EC 81 mg tablet Take 81 mg by 0 mouth daily. Take with food. Active apixaban (ELIQUIS) 5 mg Take 5 mg by 0 tablet mouth twice daily. Active enalapril (VASOTEC) 5 mg Take 5 mg by 0 tablet mouth daily. Active fenofibrate (FENOGLIDE) Take 134 mg 0 120 mg tablet by mouth daily. Take with food. Active metoprolol tartrate Take 25 mg by 0 (LOPRESSOR) 25 mg tablet mouth twice daily. Active dronedarone (MULTAQ) 400 Take 400 mg 0 mg tablet by mouth twice daily with meals. Active glipiZIDE (GLUCOTROL) 10 Take 10 mg by 0 mg tablet mouth daily. Active digoxin (LANOXIN) 125 mcg Take 125 mcg 0 tablet by mouth daily. Active traZODone (DESYREL) 50 mg Take 50 mg by 0 tablet mouth at bedtime as needed for Sleep. Active naproxen (NAPROSYN) 250 Take 250 mg 0 mg tablet by mouth twice daily with meals. Take with food. Active baclofen (LIORESAL) 10 mg Take 10 mg by 0 tablet mouth three times daily. Active nitroglycerin (NITRODUR) Apply 1 Patch 0 0.1 mg/hr patch to top of skin as directed daily. Active nitroglycerin (NITROSTAT) Place 0.4 mg 0 0.4 mg tablet under tongue every 5 minutes as needed for Chest Pain. Max of 3 tablets, call 911. Active gabapentin (NEURONTIN) Take 300 mg 0 300 mg capsule by mouth every 8 hours. Active insulin aspart (NOVOLOG) Inject 5 0 100 unit/mL injection Units under the skin three times daily with meals. Active Problems Problem Noted Date Coronary artery disease involving [place] coronary artery 10/24/2016 Overview: 2000 CABG x 4 02/17/12 PTCA BMS to vein graft to the OM 03/02/16 severe in-stent restenosis in the SVG to the OM with successful PCI, no residual stenosis, patent VG to RCA VG to the diag artery and AMANDA to the LAD occluded [place] vessels proximally, small vessel disease distally 09/25/16 [facility] - severe [place] disease, patent graft to RCA, diagonal LAD, probably occluded graft to OM - felt to be reason for chest pain in stent severe restenosis in the SVG to OM with successfull PCI, no residual disease PVD (peripheral vascular disease) 10/24/2016 Overview: 03/02/16 peripheral angio: severe PAD with total occlusion of the post tibial and peroneal artery at the trifurcation, level reconstructed by collateral down at the ankle with occlusion at the ant tibial artery at the ankle level. Mod PAD on LLE down to the trifurcation Carotid artery disease 10/24/2016 Overview: 10/19/16 carotid US - mild stenosis, nonobstructive disease bilaterally PAF (paroxysmal atrial fibrillation) 10/24/2016 Overview: 03/24/16 LINQ implantation Essential hypertension 10/24/2016 Hyperlipidemia 10/24/2016 DJD (degenerative joint disease) 10/24/2016 Cardiac device in situ 10/24/2016 Social History Date Tobacco Use Types Packs/Day Years Used Quit: 10/25/1999 Former Smoker 3 Alcohol Use Drinks/Week oz/Week Comments No Sex Assigned at Date Recorded Not on file Industry Job Start Date Occupation Not on file Not on file Not on file Travel End Travel History Travel Start No recent travel history available. Last Filed Vital Signs Time Taken Vital Sign Reading 10/24/2016 1:05 PM CDT Blood Pressure 106/60 10/24/2016 1:05 PM CDT Pulse 60 - Temperature - - Respiratory Rate - - Oxygen Saturation - - Inhaled Oxygen - Concentration 10/24/2016 1:05 PM CDT Weight 90.3 kg (199 lb) 10/24/2016 1:05 PM CDT Height 182.9 cm (6') 10/24/2016 1:05 PM CDT Body Mass Index 26.99 Plan of Treatment Health Maintenance Due Date Last Done Comments PHYSICAL (COMPREHENSIVE) 1949 EXAM DTAP/TDAP VACCINES (1 - 1960 Tdap) SHINGLES RECOMBINANT 1992 VACCINE (1 of 2) PNEUMONIA (PCV13/PPSV23) 2007 VACCINES (1 of 2 - PCV13) INFLUENZA VACCINE 12/12/2017 Implants Device Identifier Shelf Expiration Date Model / Serial / Lot Implanted Type Area Manufactur er Loop Recorder Loop Recorder Results Not on filefrom Last 3 Months Insurance Payer Benefit Subscriber ID Type Phone Address Plan / Group MEDICARE MEDICARE xxxxxxxxxx Medicare PART A AND B Advance Directives Patient has advance care planning documents on file. For more information, please contact: [facility] [address] [place] [address]
[2018-07-24] MEDS ORDERED: NS IV 1000 ML 1,000 ML IV ONE (17:37)
[2018-07-24] MEDS ORDERED: ANTACID SUSP 30 ML UDC (MYLANTA) PO ONE (17:45)
[2018-07-24] MEDS ORDERED: LIDOCAINE 2% VISCOUS 15 ML UDC PO ONE (17:45)
[2018-07-24 17:48] LABS: BASOPHILS % (AUTO) 0 % (0-10); EOSINOPHILS # (AUTO) 0.1 10^3/uL (0.0-0.3); EOSINOPHILS % (AUTO) 2 % (0-10); HEMATOCRIT 36 % (40-54); HEMOGLOBIN 11.7 G/DL (13.3-17.7); LYMPHOCYTES # (AUTO) 1.7 X 10^3 (1.0-4.0); LYMPHOCYTES % (AUTO) 24 % (12-44); MEAN CORPUSCULAR HEMOGLOBIN 26 PG (25-34); MEAN CORPUSCULAR HGB CONC 32 G/DL (32-36); MEAN CORPUSCULAR VOLUME 82 FL (80-99); MEAN PLATELET VOLUME 10.5 FL (7.4-10.4); MONOCYTES # (AUTO) 0.5 X 10^3 (0.0-1.0); MONOCYTES % (AUTO) 8 % (0-12); NEUTROPHILS # (AUTO) 4.6 X 10^3 (1.8-7.8); NEUTROPHILS % (AUTO) 67 % (42-75); PLATELET COUNT 264 10^3/uL (130-400); RED CELL DISTRIBUTION WIDTH 18.2 % (10.0-14.5); WHITE BLOOD COUNT 6.9 10^3/uL (4.3-11.0)
[2018-07-24 18:02] LABS: ALBUMIN 4.1 GM/DL (3.2-4.5); BILIRUBIN,TOTAL 0.4 MG/DL (0.1-1.0); CALCIUM 9.5 MG/DL (8.5-10.1); CREATININE SERUM 1.37 MG/DL (0.60-1.30); MAGNESIUM 1.7 MG/DL (1.8-2.4); POTASSIUM 3.8 MMOL/L (3.6-5.0); TOTAL PROTEIN 6.9 GM/DL (6.4-8.2)
[2018-07-24] MEDS ORDERED: PANT40TA2 PO (18:43)
--- NOTE | 2018-07-24 18:44 | ED Abdominal Pain ---
General Chief Complaint: Abdominal/GI Problems Stated Complaint: ABD PAIN,BLOOD PRESSURE HIGH Nursing Triage Note: PT REPORTS ABDOMINAL PAIN THAT STARTED THIS AFTERNOON. PT TOOK BLOOD PRESSURE AND REPORTS THAT BLOOD PRESSURE WAS HIGH AND HIS PULSE WAS HIGH IN THE 140'S. Sepsis Screen: Possible Sepsis Risk Source of Information: Patient, Family Exam Limitations: No Limitations History of Present Illness Date Seen by Provider: Jul 24, 2018 Time Seen by Provider: 17:27 Initial Comments This 78 gentleman presents to the emergency room with complaints of epigastric pain and tachycardia. He developed the symptoms this afternoon. Patient does have a history of paroxysmal atrial fibrillation. He is presently on Eliquis and digoxin. Pain is in the epigastrium and not his chest. During my assessment, atrial fibrillation with tachycardia spontaneously converted into sinus rhythm. Patient reports he does have a history of stomach problems and has been treated with GI cocktail in the past with success. He is not presently on an antacid medication. Allergies and Home Medications Allergies Coded Allergies: celecoxib (Unverified Allergy, Mild, TAKES ASPIRIN AT HOME, 12/21/14) diclofenac (Unverified Allergy, Mild, TAKES ASPIRIN AT HOME, 12/21/14) naproxen (Unverified Allergy, Mild, TAKES ASPIRIN AT HOME, 12/21/14) rosuvastatin (Unverified Allergy, Mild, 08/14/08) Penicillins (Verified Allergy, Unknown, 08/03/05) amoxicillin (Verified Allergy, Unknown, 08/03/05) fenofibrate (Unverified Allergy, Unknown, 06/05/16) simvastatin (Unverified Allergy, Unknown, 06/05/16) Uncoded Allergies: GEMIFIBOROZIL (Allergy, Unknown, 06/05/16) Home Medications Amiodarone HCl 200 Mg Tablet, 200 MG PO BID, (Reported) Apixaban 5 Mg Tablet, 5 MG PO BID, (Reported) Baclofen 10 Mg Tablet, 10 MG PO TID PRN for MUSCLE SPASMS, (Reported) Benzonatate 100 Mg Capsule, 100 MG PO Q8H Prescribed by: JOSEE REICH on 01/13/18 3840 Digoxin 125 Mcg Tablet, 125 MCG PO DAILY, (Reported) Fenofibrate,Micronized 134 Mg Capsule, 134 MG PO DAILY, (Reported) Gabapentin 300 Mg Capsule, 600 MG PO HS, (Reported) TAKES 2 (300 MG) CAPSULES Insulin Detemir 100 Unit/1 Ml Insuln.pen, 25 UNIT SQ BID, (Reported) Metoclopramide HCl 5 Mg Tab.rapdis, 5 MG PO ACHS, (Reported) Nitroglycerin 0.4 Mg Tab.subl, 0.4 MG SL UD PRN for CHEST PAIN, (Reported) MAX OF 3 TABS IN 15 MINUTES / CALL 911 IF PAIN REMAINS AFTER 5 MINUTES Pantoprazole Sodium 40 Mg Tablet.dr, 40 MG PO DAILY Prescribed by: RODOLFO GODWIN on 07/24/18 3362 Pentoxifylline 400 Mg Tablet.er, 400 MG PO BID, (Reported) Pravastatin Sodium 80 Mg Tablet, 80 MG PO HS, (Reported) Tamsulosin HCl 0.4 Mg Cap.er.24h, 0.4 MG PO DAILY, (Reported) Trazodone HCl 50 Mg Tablet, 50 MG PO HS, (Reported) Patient Home Medication List Home Medication List Reviewed: Yes Review of Systems Review of Systems Constitutional: no symptoms reported EENTM: No Symptoms Reported Respiratory: No Symptoms Reported Cardiovascular: See HPI Gastrointestinal: See HPI Genitourinary: No Symptoms Reported Musculoskeletal: no symptoms reported Skin: no symptoms reported Psychiatric/Neurological: No Symptoms Reported Endocrine: No Symptoms Reported Past Ecjitnl-Eckqrp-Pfnxun Hx Patient Social History Alcohol Use: Denies Use Alcohol Beverage of Choice: Beer Recreational Drug Use: No Smoking Status: Never a Smoker Type Used: Cigarettes Former Smoker, Quit: Apr 12, 2000 2nd Hand Smoke Exposure: No Recent Foreign Travel: No Contact w/Someone Who Travel: No Recent Infectious Disease Expo: No Recent Hopitalizations: No Immunizations Up To Date Tetanus Booster (TDap): Less than 5yrs PED Vaccines UTD: No Date of Pneumonia Vaccine: Mar 08, 2018 Date of Influenza Vaccine: Mar 08, 2018 Seasonal Allergies Seasonal Allergies: No Past Medical History Surgeries: Yes Abdominal, Angioplasty, Cardiac, CABG, Coronary Stent, Eye Surgery, Gallbladder , Joint Replacement, Open Heart Surgery, Orthopedic, Vascular Surgery Respiratory: Yes (CHRONIC DYSPNEA ON EXERTION) Sleep Apnea, COPD Currently Using CPAP: No Currently Using BIPAP: No Cardiac: Yes Atrial Fibrillation, Chronic Edema/Swelling, Coronary Artery Disease, Heart Attack, High Cholesterol, Hypertension, Peripheral Vascular Neurological: Yes (POSSIBLE STROKE/ TIA) Stroke, TIA Reproductive Disorders: No Sexually Transmitted Disease: No HIV/AIDS: No Genitourinary: Yes (RENAL INSUFFICIENCY) Benign Prostatic Hyperpl, Prostate Problems, Renal Failure Gastrointestinal: Yes Abdominal Hernia, Gastroesophageal Reflux, Pancreatitis, Polyps, Gall Bladder Disease Musculoskeletal: Yes (OLECRANON BURSITIS, CHRONIC NECK PAIN, DISH SYNDROME) Degenerate Disk Disease, Arthritis, Chronic Back Pain Endocrine: Yes Diabetes, Insulin dep HEENT: Yes Cataract Loss of Vision: Denies Hearing Impairment: Denies Cancer: No Psychosocial: Yes Anxiety Integumentary: No Blood Disorders: No Adverse Reaction/Blood Tranf: No Family Medical History Cancer G8 BROTHER Cataract 19 FATHER 19 MOTHER G8 BROTHER G8 BROTHER G8 SISTER Congestive heart failure 19 FATHER 19 MOTHER Family history: Arthritis 19 FATHER 19 MOTHER G8 BROTHER G8 BROTHER G8 SISTER G8 SISTER DAUGHTER SON Family history: Breast disease DAUGHTER Family history: Cardiovascular disease 19 FATHER Family history: Diabetes mellitus 19 FATHER G8 BROTHER G8 SISTER Family history: Hypertension 19 FATHER 19 MOTHER G8 BROTHER G8 BROTHER G8 SISTER G8 SISTER DAUGHTER SON Family history: Thyroid disorder DAUGHTER Heart disease 19 FATHER 19 MOTHER G8 BROTHER Hypercholesterolemia 19 FATHER 19 MOTHER G8 BROTHER G8 BROTHER G8 SISTER Myocardial infarction 19 FATHER 19 MOTHER G8 BROTHER No Family History of: Abdominal aortic aneurysm Tyler's disease Alcoholism Aphasia Cancer of colon Chest pain Congenital heart disease Cystic fibrosis Dementia Dysphagia Family history: Allergy Family history: Alzheimer's disease Family history: Asthma Family history: Coronary thrombosis Family history: Gastrointestinal disease Family history: Glaucoma Family history: Osteoporosis Headache Hearing loss Hereditary disease History of - anemia History of - disorder History of - respiratory disease History of drug abuse Human immunodeficiency virus (HIV) seropositivity Infertile Kidney disease Malignant neoplasm of lung Parkinson's disease Prostate cancer Psychotic disorder Seizure disorder Stroke Tuberculosis Visual impairment Physical Exam Vital Signs Vital Signs - First Documented 07/24/18 07/24/18 17:04 18:49 Temp 99.3 Pulse 151 Resp 20 B/P (MAP) 134/101 (112) Pulse Ox 97 O2 Delivery Room Air Capillary Refill : Less Than 3 Seconds Height/Weight/BMI Height: 6'4.00" Weight: 184lbs. 0.0oz. 83.225329ln; 26.1 BMI Method:Stated General Appearance: WD/WN, no apparent distress HEENT: PERRL/EOMI, normal ENT inspection Neck: normal inspection Respiratory: lungs clear, normal breath sounds, no respiratory distress, no accessory muscle use Cardiovascular: no edema, tachycardia, systolic murmur, irregularly irregular Gastrointestinal: normal bowel sounds, soft, tenderness (Epigastrium) Extremities: normal inspection, no pedal edema Neurologic/Psychiatric: glue maker II-XII nml as tested, no motor/sensory deficits, alert, normal mood/affect, oriented x 3 Skin: normal color, warm/dry Progress/Results/Core Measures Results/Orders Lab Results Laboratory Tests Test 07/24/18 17:16 Range/Units White Blood Count 6.9 4.3-11.0 10^3/uL Red Blood Count 4.44 4.35-5.85 10^6/uL Hemoglobin 11.7 L 13.3-17.7 G/DL Hematocrit 36 L 40-54 % Mean Corpuscular Volume 82 80-99 FL Mean Corpuscular Hemoglobin 26 25-34 PG Mean Corpuscular Hemoglobin Concent 32 32-36 G/DL Red Cell Distribution Width 18.2 H 10.0-14.5 % Platelet Count 264 130-400 10^3/uL Mean Platelet Volume 10.5 H 7.4-10.4 FL Neutrophils (%) (Auto) 67 42-75 % Lymphocytes (%) (Auto) 24 12-44 % Monocytes (%) (Auto) 8 0-12 % Eosinophils (%) (Auto) 2 0-10 % Basophils (%) (Auto) 0 0-10 % Neutrophils # (Auto) 4.6 1.8-7.8 X 10^3 Lymphocytes # (Auto) 1.7 1.0-4.0 X 10^3 Monocytes # (Auto) 0.5 0.0-1.0 X 10^3 Eosinophils # (Auto) 0.1 0.0-0.3 10^3/uL Basophils # (Auto) 0.0 0.0-0.1 10^3/uL Sodium Level 139 135-145 MMOL/L Potassium Level 3.8 3.6-5.0 MMOL/L Chloride Level 108 H 98-107 MMOL/L Carbon Dioxide Level 24 21-32 MMOL/L Anion Gap 7 5-14 MMOL/L Blood Urea Nitrogen 9 7-18 MG/DL Creatinine 1.37 H 0.60-1.30 MG/DL Estimat Glomerular Filtration Rate 51 BUN/Creatinine Ratio 7 Glucose Level 212 H 70-105 MG/DL Calcium Level 9.5 8.5-10.1 MG/DL Corrected Calcium 9.4 8.5-10.1 MG/DL Magnesium Level 1.7 L 1.8-2.4 MG/DL Total Bilirubin 0.4 0.1-1.0 MG/DL Aspartate Amino Transf (AST/SGOT) 19 5-34 U/L Alanine Aminotransferase (ALT/SGPT) 12 0-55 U/L Alkaline Phosphatase 64 40-136 U/L Total Protein 6.9 6.4-8.2 GM/DL Albumin 4.1 3.2-4.5 GM/DL Lipase 64 8-78 U/L Digoxin Level 0.53 L 0.80-2.00 NG/ML My Orders Orders - RODOLFO CUELLO MD Cbc With Automated Diff (07/24/18 17:37) Comprehensive Metabolic Panel (07/24/18 17:37) Magnesium (07/24/18 17:37) Saline Lock/Iv-Start (07/24/18 17:37) Ns Iv 1000 Ml (Sodium Chloride 0.9%) (07/24/18 17:37) Lidocaine 2% Viscous 15 Ml (Xylocaine Vi (07/24/18 17:45) Antacid Suspension (Mylanta Suspension (07/24/18 17:45) Lipase (07/24/18 17:38) Digoxin (07/24/18 17:44) Ekg Tracing (07/24/18 19:25) Monitor-Rhythm Ecg Trace Only (07/24/18 19:25) Medications Given in ED Current Medications Medications Dose Ordered Sig/Alka Route Start Time Stop Time Status Last Admin Dose Admin Al Hydrox/Mg Hydrox/Simethicone 30 ml ONCE ONCE PO 07/24/18 17:45 07/24/18 17:46 DC 07/24/18 17:59 30 ML Lidocaine HCl 15 ml ONCE ONCE PO 07/24/18 17:45 07/24/18 17:46 DC 07/24/18 17:59 15 ML Sodium Chloride 1,000 ml @ 0 mls/hr Q0M ONCE IV 07/24/18 17:37 07/24/18 17:39 DC 07/24/18 17:58 1,000 MLS/HR Vital Signs/I&O 07/24/18 07/24/18 17:04 18:49 Temp 99.3 Pulse 151 92 Resp 20 16 B/P (MAP) 134/101 (112) 150/109 (123) Pulse Ox 97 97 O2 Delivery Room Air Blood Pressure Mean: 112 Progress Progress Note : Progress Note During assessment atrial fibrillation with RVR spontaneously converted to sinus rhythm with no intervention. Rhythm remained normal sinus throughout the remainder of his ER stay. GI cocktail resolved his epigastric pain and tenderness on reexamination. Labs were unremarkable. Patient was started on Protonix and dismissed to outpatient follow-up. Digoxin level was obtained. A liter of IV fluid was administered. Initial ECG Impression Date: Jul 24, 2018 Initial ECG Impression Time: 17:27 Initial ECG Rate: 116 Initial ECG Rhythm: A Fib/Flutter Initial ECG Impression: Atrial Fibrillation w/RVR Comment Atrial fibrillation with rapid response. No ST elevation or depression. Departure Impression Primary Impression: Epigastric abdominal pain Additional Impression: Paroxysmal atrial fibrillation Disposition: HOME, SELF-CARE Condition: Improved Departure-Patient Inst. Decision time for Depature: 18:42 Referrals: IRAJ HERRERA MD (PCP/Family) Primary Care Physician Patient Instructions: Acute Abdomen (Belly Pain), Adult (DC), Gastritis (DC) Add. Discharge Instructions: Start Protonix and continue until instructed otherwise. Follow-up with your primary care provider and her filler in as soon as possible. Avoid the following: Eating large meals, eating close to bedtime, caffeine, carbonation, citrus fruits and juices, chocolate, alcohol, tobacco, tomato products, spicy foods, and some medications such as ibuprofen or naproxen, mints , or anything else you know irritates your stomach. All discharge instructions reviewed with patient and/or family. Voiced understanding. Scripts Pantoprazole Sodium (Protonix) 40 Mg Tablet. 40 MG PO DAILY, #30 TAB Prov: RODOLFO CUELLO MD 07/24/18 Copy Copies To 1: ISIDRO HOANG MD [facility] CCDS Copies To 2: IRAJ HERRERA MD, JOSHUA T MD Jul 24, 2018 18:44
[2018-07-24 18:49] VITALS: BP 150/109
== END 2018-07-24 18:54 | disposition home or self-care (01) ==
LOC: EDUNIT# 16:36 → ER 16:38
DX: R10.13 Epigastric pain (principal); I48.0 Paroxysmal atrial fibrillation; G47.30 Sleep apnea, unspecified; J44.9 Chronic obstructive pulmonary disease, unspecified; I25.10 Atherosclerotic heart disease of native coronary artery without angina pectoris; E78.00 Pure hypercholesterolemia, unspecified; I25.2 Old myocardial infarction; I10 Essential (primary) hypertension; E11.51 Type 2 diabetes mellitus with diabetic peripheral angiopathy without gangrene; I73.9 Peripheral vascular disease, unspecified; F41.9 Anxiety disorder, unspecified; K21.9 Gastro-esophageal reflux disease without esophagitis; Z87.19 Personal history of other diseases of the digestive system; Z86.010 Personal history of colon polyps; Z87.448 Personal history of other diseases of urinary system; Z82.49 Family history of ischemic heart disease and other diseases of the circulatory system; Z80.3 Family history of malignant neoplasm of breast; Z86.73 Personal history of transient ischemic attack (TIA), and cerebral infarction without residual deficits; Z88.8 Allergy status to other drugs, medicaments and biological substances; Z88.0 Allergy status to penicillin; Z79.01 Long term (current) use of anticoagulants; Z79.4 Long term (current) use of insulin; Z87.891 Personal history of nicotine dependence; Z95.5 Presence of coronary angioplasty implant and graft; Z95.1 Presence of aortocoronary bypass graft; Z98.890 Other specified postprocedural states
CPT/HCPCS: 36415; 80053; 80162; 83690; 83735; 85025; 93005

== ENCOUNTER 2018-07-31 00:40 | Emergency (ER) | payer MEDICARE, MEDICAID ==
[~2018-07-31] VITALS: Ht 182.9 cm; Wt 83.5 kg
--- OUTSIDE RECORDS SUMMARY | 2018-07-31 00:46 | XMS REPORT | Clinical Summary ---
Author Author [facility] Organization [facility] Address Unknown Phone Unavailable Care Team Providers Care Berry Planter Name Role Phone Chance Ward PCP Source Comments Some departments are not documenting in the electronic medical record. If you do not see the information that you expected, contact Release of Information in the Health Information Management department at [phone] for further assistance in locating additional records.[facility] Allergies Not on File Medications End Date [...] Problem Noted Date Coronary artery disease involving chinik coronary artery 10/24/2016 Overview: 2000 CABG x 4 02/17/12 PTCA BMS to vein graft to the OM 03/02/16 severe in-stent restenosis in the SVG to the OM with successful PCI, no residual stenosis, patent VG to RCA VG to the diag artery and AMANDA to the LAD occluded chinik vessels proximally, small vessel disease distally 09/25/16 [facility] - severe chinik disease, patent graft to RCA, diagonal LAD, [...] on file. For more information, please contact: [facility] [address] [place] [address]
[2018-07-31] MEDS ORDERED: PANTOPRAZOLE 40 MG (PROTONIX) VIAL IV STA (00:48)
[2018-07-31] MEDS ORDERED: NS IV 1000 ML 1,000 ML IV ONE (00:48)
[2018-07-31 00:55] LABS: BASOPHILS % (AUTO) 0 % (0-10); EOSINOPHILS # (AUTO) 0.2 10^3/uL (0.0-0.3); EOSINOPHILS % (AUTO) 2 % (0-10); HEMATOCRIT 35 % (40-54); HEMOGLOBIN 11.2 G/DL (13.3-17.7); LYMPHOCYTES # (AUTO) 2.6 X 10^3 (1.0-4.0); LYMPHOCYTES % (AUTO) 36 % (12-44); MEAN CORPUSCULAR HEMOGLOBIN 26 PG (25-34); MEAN CORPUSCULAR HGB CONC 32 G/DL (32-36); MEAN CORPUSCULAR VOLUME 83 FL (80-99); MEAN PLATELET VOLUME 9.9 FL (7.4-10.4); MONOCYTES # (AUTO) 0.6 X 10^3 (0.0-1.0); MONOCYTES % (AUTO) 8 % (0-12); NEUTROPHILS % (AUTO) 54 % (42-75); PLATELET COUNT 296 10^3/uL (130-400); WHITE BLOOD COUNT 7.4 10^3/uL (4.3-11.0)
[2018-07-31] MEDS ORDERED: HYOSCYAMINE 0.125 MG (LEVSIN) TAB PO ONE (01:00)
[2018-07-31 01:03] LABS: INR 1.3 (0.8-1.4)
[2018-07-31 01:14] LABS: ALBUMIN 4.1 GM/DL (3.2-4.5); BILIRUBIN,TOTAL 0.3 MG/DL (0.1-1.0); CALCIUM 9.6 MG/DL (8.5-10.1); CREATININE SERUM 1.61 MG/DL (0.60-1.30); POTASSIUM 3.3 MMOL/L (3.6-5.0)
[2018-07-31 02:21] LABS: BILIRUBIN,URINE NEGATIVE (NEGATIVE); CLARITY,URINE CLEAR; COLOR,URINE YELLOW; GLUCOSE, URINE (UA) NEGATIVE (NEGATIVE); KETONES,URINE NEGATIVE (NEGATIVE); LEUKOCYTE ESTERASE ,URINE NEGATIVE (NEGATIVE); NITRITE,URINE NEGATIVE (NEGATIVE); PH,URINE 7 (5-9); PROTEIN,URINE 1+ (NEGATIVE); UROBILINOGEN,URINE NORMAL (NORMAL)
[2018-07-31 02:28] LABS: AMORPHOUS SEDIMENT,UR FEW AMOR PHOSPHATE /LPF; BACTERIA,URINE TRACE /HPF; RBC,URINE 25-50 /HPF; SQUAMOUS EPITHELIAL CELL,UR RARE /HPF
[2018-07-31] MEDS ORDERED: HURRICAINE EXT TUBE (BENZOCAINE) ONE (02:49)
[2018-07-31] MEDS ORDERED: LIDOCAINE 2% VISCOUS 15 ML UDC PO ONE (03:30)
--- NOTE | 2018-07-31 04:00 | NUR ---
AFTER MULTIPLE ATTEMPTS BY MULTIPLE RN'S AND DR. KNIGHT, UNABLE TO OBTAIN NG TUBE PLACEMENT.
[2018-07-31] MEDS ORDERED: HYOS0.1283 SL (04:11)
--- NOTE | 2018-07-31 04:11 | ED Abdominal Pain ---
General Chief Complaint: Abdominal/GI Problems Stated Complaint: ILLNESS Nursing Triage Note: PT TO ROOM #6 [facility]IA [facility] CART FROM HOME WITH C/O ABD PAIN AND CONSTIPATION. [facility] ACCESSED 18G IV TO LT AC STEEL HANGER. UPON ARRIVAL PT A&OX4. PT REPORTS MEDIAL ABD PAIN THAT BEGAN YESTERAY AFTERNOON. PT REPORTS HE HAS NOT PASSED A BOWEL MOVEMENT IN APPROX X1 WK. REPORTS HX GASTROPERESIS. DENIES NAUSEA OR VOMITING. Sepsis Screen: No Definite Risk Allergies and Home Medications Allergies Coded Allergies: celecoxib (Unverified Allergy, Mild, TAKES ASPIRIN AT HOME, 12/21/14) diclofenac (Unverified Allergy, Mild, TAKES ASPIRIN AT HOME, 12/21/14) naproxen (Unverified Allergy, Mild, TAKES ASPIRIN AT HOME, 12/21/14) rosuvastatin (Unverified Allergy, Mild, 08/14/08) Penicillins (Verified Allergy, Unknown, 08/03/05) amoxicillin (Verified Allergy, Unknown, 08/03/05) fenofibrate (Unverified Allergy, Unknown, 06/05/16) simvastatin (Unverified Allergy, Unknown, 06/05/16) Uncoded Allergies: GEMIFIBOROZIL (Allergy, Unknown, 06/05/16) Home Medications Amiodarone HCl 200 Mg Tablet, 200 MG PO BID, (Reported) Apixaban 5 Mg Tablet, 5 MG PO BID, (Reported) Baclofen 10 Mg Tablet, 10 MG PO TID PRN for MUSCLE SPASMS, (Reported) Benzonatate 100 Mg Capsule, 100 MG PO Q8H Prescribed by: JOSEE REICH on 01/13/18 2655 Digoxin 125 Mcg Tablet, 125 MCG PO DAILY, (Reported) Fenofibrate,Micronized 134 Mg Capsule, 134 MG PO DAILY, (Reported) Gabapentin 300 Mg Capsule, 600 MG PO HS, (Reported) TAKES 2 (300 MG) CAPSULES Insulin Detemir 100 Unit/1 Ml Insuln.pen, 25 UNIT SQ BID, (Reported) Metoclopramide HCl 5 Mg Tab.rapdis, 5 MG PO ACHS, (Reported) Nitroglycerin 0.4 Mg Tab.subl, 0.4 MG SL UD PRN for CHEST PAIN, (Reported) MAX OF 3 TABS IN 15 MINUTES / CALL 911 IF PAIN REMAINS AFTER 5 MINUTES Pantoprazole Sodium 40 Mg Tablet.dr, 40 MG PO DAILY Prescribed by: RODOLFO GODWIN on 07/24/18 1843 Pentoxifylline 400 Mg Tablet.er, 400 MG PO BID, (Reported) Pravastatin Sodium 80 Mg Tablet, 80 MG PO HS, (Reported) Tamsulosin HCl 0.4 Mg Cap.er.24h, 0.4 MG PO DAILY, (Reported) Trazodone HCl 50 Mg Tablet, 50 MG PO HS, (Reported) Past Mtifkzq-Sfoman-Kiqthb Hx Patient Social History Alcohol Use: Rarely Uses Number of Drinks Today: AA Alcohol Beverage of Choice: Beer Recreational Drug Use: No Smoking Status: Former Smoker Type Used: Cigarettes Former Smoker, Quit: Apr 12, 2000 2nd Hand Smoke Exposure: No Recent Foreign Travel: No Contact w/Someone Who Travel: No Recent Infectious Disease Expo: No Recent Hopitalizations: No Immunizations Up To Date Tetanus Booster (TDap): Less than 5yrs PED Vaccines UTD: No Date of Pneumonia Vaccine: Mar 08, 2018 Date of Influenza Vaccine: Mar 08, 2018 Seasonal Allergies Seasonal Allergies: No Past Medical History Surgeries: Yes Abdominal, Angioplasty, Cardiac, CABG, Coronary Stent, Eye Surgery, Gallbladder , Joint Replacement, Open Heart Surgery, Orthopedic, Vascular Surgery Respiratory: Yes (CHRONIC DYSPNEA ON EXERTION) Sleep Apnea, COPD Currently Using CPAP: No Currently Using BIPAP: No Cardiac: Yes Atrial Fibrillation, Chronic Edema/Swelling, Coronary Artery Disease, Heart Attack, High Cholesterol, Hypertension, Peripheral Vascular Neurological: Yes (POSSIBLE STROKE/ TIA) Stroke, TIA Reproductive Disorders: No Sexually Transmitted Disease: No HIV/AIDS: No Genitourinary: Yes (RENAL INSUFFICIENCY) Benign Prostatic Hyperpl, Prostate Problems, Renal Failure Gastrointestinal: Yes Abdominal Hernia, Gastroesophageal Reflux, Pancreatitis, Polyps, Gall Bladder Disease Musculoskeletal: Yes (OLECRANON BURSITIS, CHRONIC NECK PAIN, DISH SYNDROME) Degenerate Disk Disease, Arthritis, Chronic Back Pain Endocrine: Yes Diabetes, Insulin dep HEENT: Yes Cataract Loss of Vision: Denies Hearing Impairment: Denies Cancer: No Psychosocial: Yes Anxiety Integumentary: No Blood Disorders: No Adverse Reaction/Blood Tranf: No Family Medical History Cancer G8 BROTHER Cataract 19 FATHER 19 MOTHER G8 BROTHER G8 BROTHER G8 SISTER Congestive heart failure 19 FATHER 19 MOTHER Family history: Arthritis 19 FATHER 19 MOTHER G8 BROTHER G8 BROTHER G8 SISTER G8 SISTER DAUGHTER SON Family history: Breast disease DAUGHTER Family history: Cardiovascular disease 19 FATHER Family history: Diabetes mellitus 19 FATHER G8 BROTHER G8 SISTER Family history: Hypertension 19 FATHER 19 MOTHER G8 BROTHER G8 BROTHER G8 SISTER G8 SISTER DAUGHTER SON Family history: Thyroid disorder DAUGHTER Heart disease 19 FATHER 19 MOTHER G8 BROTHER Hypercholesterolemia 19 FATHER 19 MOTHER G8 BROTHER G8 BROTHER G8 SISTER Myocardial infarction 19 FATHER 19 MOTHER G8 BROTHER No Family History of: Abdominal aortic aneurysm Robel's disease Alcoholism Aphasia Cancer of colon Chest pain Congenital heart disease Cystic fibrosis Dementia Dysphagia Family history: Allergy Family history: Alzheimer's disease Family history: Asthma Family history: Coronary thrombosis Family history: Gastrointestinal disease Family history: Glaucoma Family history: Osteoporosis Headache Hearing loss Hereditary disease History of - anemia History of - disorder History of - respiratory disease History of drug abuse Human immunodeficiency virus (HIV) seropositivity Infertile Kidney disease Malignant neoplasm of lung Parkinson's disease Prostate cancer Psychotic disorder Seizure disorder Stroke Tuberculosis Visual impairment Physical Exam Vital Signs Vital Signs - First Documented 07/31/18 00:45 Temp 98.0 Pulse 75 Resp 16 B/P (MAP) 140/96 (111) Pulse Ox 96 O2 Delivery Room Air Capillary Refill : Less Than 3 Seconds Height/Weight/BMI Height: 6'0" Weight: 184lbs. 0.0oz. 83.374767ov; 26.1 BMI Method:Stated Progress/Results/Core Measures Results/Orders Lab Results Laboratory Tests Test 07/31/18 00:45 07/31/18 02:17 Range/Units White Blood Count 7.4 4.3-11.0 10^3/uL Red Blood Count 4.24 L 4.35-5.85 10^6/uL Hemoglobin 11.2 L 13.3-17.7 G/DL Hematocrit 35 L 40-54 % Mean Corpuscular Volume 83 80-99 FL Mean Corpuscular Hemoglobin 26 25-34 PG Mean Corpuscular Hemoglobin Concent 32 32-36 G/DL Red Cell Distribution Width 17.0 H 10.0-14.5 % Platelet Count 296 130-400 10^3/uL Mean Platelet Volume 9.9 7.4-10.4 FL Neutrophils (%) (Auto) 54 42-75 % Lymphocytes (%) (Auto) 36 12-44 % Monocytes (%) (Auto) 8 0-12 % Eosinophils (%) (Auto) 2 0-10 % Basophils (%) (Auto) 0 0-10 % Neutrophils # (Auto) 4.0 1.8-7.8 X 10^3 Lymphocytes # (Auto) 2.6 1.0-4.0 X 10^3 Monocytes # (Auto) 0.6 0.0-1.0 X 10^3 Eosinophils # (Auto) 0.2 0.0-0.3 10^3/uL Basophils # (Auto) 0.0 0.0-0.1 10^3/uL Prothrombin Time 16.0 H 12.2-14.7 SEC INR Comment 1.3 0.8-1.4 Activated Partial Thromboplast Time 34 24-35 SEC Sodium Level 143 135-145 MMOL/L Potassium Level 3.3 L 3.6-5.0 MMOL/L Chloride Level 106 98-107 MMOL/L Carbon Dioxide Level 24 21-32 MMOL/L Anion Gap 13 5-14 MMOL/L Blood Urea Nitrogen 11 7-18 MG/DL Creatinine 1.61 H 0.60-1.30 MG/DL Estimat Glomerular Filtration Rate 42 BUN/Creatinine Ratio 7 Glucose Level 153 H 70-105 MG/DL Calcium Level 9.6 8.5-10.1 MG/DL Corrected Calcium 9.5 8.5-10.1 MG/DL Total Bilirubin 0.3 0.1-1.0 MG/DL Aspartate Amino Transf (AST/SGOT) 14 5-34 U/L Alanine Aminotransferase (ALT/SGPT) 9 0-55 U/L Alkaline Phosphatase 65 40-136 U/L Total Protein 7.0 6.4-8.2 GM/DL Albumin 4.1 3.2-4.5 GM/DL Amylase Level 52 25-125 U/L Lipase 55 8-78 U/L Urine Color YELLOW Urine Clarity CLEAR Urine pH 7 5-9 Urine Specific [place] 1.010 L 1.016-1.022 Urine Protein 1+ H NEGATIVE Urine Glucose (UA) NEGATIVE NEGATIVE Urine Ketones NEGATIVE NEGATIVE Urine Nitrite NEGATIVE NEGATIVE Urine Bilirubin NEGATIVE NEGATIVE Urine Urobilinogen NORMAL NORMAL MG/DL Urine Leukocyte Esterase NEGATIVE NEGATIVE Urine RBC (Auto) 5+ H NEGATIVE Urine RBC 25-50 H /HPF Urine WBC NONE /HPF Urine Squamous Epithelial Cells RARE /HPF Urine Crystals PRESENT H /LPF Urine Amorphous Sediment FEW DEYVI PHOSPHATE H /LPF Urine Bacteria TRACE /HPF Urine Casts NONE /LPF Urine Mucus NEGATIVE /LPF Urine Culture Indicated NO My Orders Orders - ROMAIN KNIGHT DO Saline Lock/Iv-Start (07/31/18 00:48) Monitor-Rhythm Ecg Trace Only (07/31/18 00:48) Ct Abd/Pelvis Wo(Kidney Stone) (07/31/18 00:48) Amylase (07/31/18 00:48) Cbc With Automated Diff (07/31/18 00:48) Comprehensive Metabolic Panel (07/31/18 00:48) Lipase (07/31/18 00:48) Protime With Inr (07/31/18 00:48) Partial Thromboplastin Time (07/31/18 00:48) Ua Culture If Indicated (07/31/18 00:48) Acute Abd Series (07/31/18 00:48) Saline Lock/Iv-Start (07/31/18 00:48) Ns Iv 1000 Ml (Sodium Chloride 0.9%) (07/31/18 00:48) Pantoprazole Injection (Protonix Injecti (07/31/18 00:48) Hyoscyamine Sl Tablet (Levsin Sl Tablet) (07/31/18 01:00) Ng Tube Insert & Assessment (07/31/18 02:45) Benzocaine Extension Tube (Hurricaine Ex (07/31/18 02:49) Lidocaine 2% Viscous 15 Ml (Xylocaine Vi (07/31/18 03:30) Medications Given in ED Current Medications Medications Dose Ordered Sig/Alka Route Start Time Stop Time Status Last Admin Dose Admin Benzocaine 1 ea STK-MED ONCE .ROUTE 07/31/18 02:49 07/31/18 02:51 DC 07/31/18 03:00 1 EA Hyoscyamine Sulfate 0.25 mg ONCE ONCE PO 07/31/18 01:00 07/31/18 01:01 DC 07/31/18 00:58 0.25 MG Sodium Chloride 1,000 ml @ 0 mls/hr Q0M ONCE IV 07/31/18 00:48 07/31/18 00:51 DC 07/31/18 00:58 0 MLS/HR Vital Signs/I&O 07/31/18 00:45 Temp 98.0 Pulse 75 Resp 16 B/P (MAP) 140/96 (111) Pulse Ox 96 O2 Delivery Room Air Blood Pressure Mean: 111 Departure Impression Primary Impression: Gastroparesis Additional Impression: Gastric dilatation Disposition: HOME, SELF-CARE Condition: Stable Departure-Patient Inst. Referrals: IRAJ HERRERA MD (PCP/Family) Primary Care Physician GRICELDA Patient Instructions: Gastroparesis (Delayed Gastric Emptying) (DC) Add. Discharge Instructions: CONTINUE YOUR MEDICATIONS PRESCRIBED FOLLOW UP WITH DR. MADISON FOR GI THIS WEEK FOR FURTHER CARE RETURN TO ER IF WORSE All discharge instructions reviewed with patient and/or family. Voiced understanding. Scripts Hyoscyamine Sulfate (Levsin-Sl) 0.125 Mg Tab.subl 1-2 TAB SL Q4H for Abdominal Pain, #15 TAB Prov: ROMAIN KNIGHT DO 07/31/18 ROMAIN KNIGHT DO Jul 31, 2018 04:11
[2018-07-31 04:25] VITALS: BP 179/98
--- NOTE | 2018-07-31 04:25 | NUR ---
@ TIME OF DC, PT VERBALIZED UNDERSTANDING OF IMPORTANCE REGARDING FOLLOW UP CARE.
--- NOTE | 2018-07-31 07:38 | Diagnostic Imaging Report ---
INDICATION: Constipation. Abdominal distention. Comparison with 01/24/2018. FINDINGS: There is again noted obstructive interstitial lung disease with flattening of the diaphragm. Heart is mildly enlarged without evidence of pulmonary edema. Median sternotomy changes again noted. No pneumothorax or pleural effusion. Upright and supine abdomen shows distended stomach with air-fluid levels scattered throughout the small bowel and colon. There is gas to the rectum. There does appear to be only a small amount of stool within the colon. No evidence of impacted stool. IMPRESSION: 1. Distended stomach small bowel and colon with air-fluid levels most likely representing adynamic ileus. Dictated by: Dictated on workstation # [id number]
--- NOTE | 2018-07-31 07:42 | Diagnostic Imaging Report ---
PROCEDURE: CT urinary tract, rule out kidney stone. TECHNIQUE: Multiple contiguous axial images were obtained through the abdomen and pelvis without the use of intravenous contrast. Elevated lab values. INDICATION: Abdominal pain and constipation. History of hernia repair, cholecystectomy and appendectomy. FINDINGS: There is hyperaeration of the lungs with some interstitial lung disease. There is marked distention of the stomach with air-fluid level. The small bowel is not dilated. The colon shows normal stool and gas pattern. There does appear to be a normal-appearing appendix. There is diverticulosis of the sigmoid colon without diverticulitis. The bladder is nondistended. There are no pelvic masses. Liver appears normal. Bile ducts are not dilated. Gallbladder absent. Pancreas and spleen are normal. Adrenal glands and kidneys appear normal without contrast. No blastic or lytic bony lesion. IMPRESSION: 1. Rather marked distention of the stomach containing a large amount of fluid and food. 2. Normal-appearing small bowel and colon as well as appendix. Diverticulosis without evidence of diverticulitis. Dictated by: Dictated on workstation # [id number]
== END 2018-07-31 04:25 | disposition home or self-care (01) ==
LOC: EDUNIT# 00:40 → ER 00:41
DX: E11.43 Type 2 diabetes mellitus with diabetic autonomic (poly)neuropathy (principal); K31.84 Gastroparesis; K31.89 Other diseases of stomach and duodenum; G47.30 Sleep apnea, unspecified; J44.9 Chronic obstructive pulmonary disease, unspecified; I48.91 Unspecified atrial fibrillation; I25.10 Atherosclerotic heart disease of native coronary artery without angina pectoris; I25.2 Old myocardial infarction; E78.00 Pure hypercholesterolemia, unspecified; I10 Essential (primary) hypertension; E11.51 Type 2 diabetes mellitus with diabetic peripheral angiopathy without gangrene; I73.9 Peripheral vascular disease, unspecified; K21.9 Gastro-esophageal reflux disease without esophagitis; F41.9 Anxiety disorder, unspecified; Z87.19 Personal history of other diseases of the digestive system; Z86.010 Personal history of colon polyps; Z82.49 Family history of ischemic heart disease and other diseases of the circulatory system; Z87.448 Personal history of other diseases of urinary system; Z86.73 Personal history of transient ischemic attack (TIA), and cerebral infarction without residual deficits; Z88.1 Allergy status to other antibiotic agents; Z88.0 Allergy status to penicillin; Z88.8 Allergy status to other drugs, medicaments and biological substances; Z79.01 Long term (current) use of anticoagulants; Z79.4 Long term (current) use of insulin; Z87.891 Personal history of nicotine dependence; Z95.1 Presence of aortocoronary bypass graft; Z95.5 Presence of coronary angioplasty implant and graft; Z98.890 Other specified postprocedural states
CPT/HCPCS: 36415; 74022; 74176; 80053; 81000; 82150; 83690; 85025; 85610; 85730; 93041; 96361; 96374

== ENCOUNTER 2018-08-13 14:41 | Emergency (ER) | payer MEDICARE, MEDICAID ==
[~2018-08-13] VITALS: Ht 182.9 cm; Wt 83.5 kg
[~2018-08-13 14:41] MED LIST changes: +HYOS0.1283 SL
--- NOTE | 2018-08-13 15:56 | ED General ---
General Chief Complaint: General Problems/Pain Stated Complaint: LOW BP Nursing Triage Note: AMB TO ROOM WITH PATIENT REPORTS THAT THIS AM IT TOOK HIS B/P LIKE HE IS SUPPOSE TO . IF IT IS HIGH HE IS SUPPOSE TO TAKE B/P UNSURE OF NAME. THIS AFTERNOON BECAME CONCERN BECAUSE HIS SYSTOLIC WAS 70. NO C/O PAIN Nursing Sepsis Screen: No Definite Risk History of Present Illness Date Seen by Provider: Aug 13, 2018 Time Seen by Provider: 15:05 Initial Comments Here with report of low blood pressure at home. Apparently he had blood pressure at 160 systolic this morning and took his pill that he is supposed to take when his blood pressure is high. He had no symptoms at the time but took the pill. He is unsure what that is although it appears it may have been clonidine. A few hours later he had blood pressure that was low and noted that it went from the 90s to the 80s to the 70s systolic. Arrives with a pressure 121 systolic. Throughout this time he denies any weakness, dizziness, chest pressure, pain or other concerns. Timing/Duration: 1-3 Hours Severity: Mild Associated Systoms: No Chest Pain, No Nausea/Vomiting, No Shortness of Air, No Weakness Allergies and Home Medications Allergies Coded Allergies: celecoxib (Unverified Allergy, Mild, TAKES ASPIRIN AT HOME, 12/21/14) diclofenac (Unverified Allergy, Mild, TAKES ASPIRIN AT HOME, 12/21/14) naproxen (Unverified Allergy, Mild, TAKES ASPIRIN AT HOME, 12/21/14) rosuvastatin (Unverified Allergy, Mild, 08/14/08) Penicillins (Verified Allergy, Unknown, 08/03/05) amoxicillin (Verified Allergy, Unknown, 08/03/05) fenofibrate (Unverified Allergy, Unknown, 06/05/16) simvastatin (Unverified Allergy, Unknown, 06/05/16) Uncoded Allergies: GEMIFIBOROZIL (Allergy, Unknown, 06/05/16) Home Medications Amiodarone HCl 200 Mg Tablet, 200 MG PO BID, (Reported) Apixaban 5 Mg Tablet, 5 MG PO BID, (Reported) Baclofen 10 Mg Tablet, 10 MG PO TID PRN for MUSCLE SPASMS, (Reported) Benzonatate 100 Mg Capsule, 100 MG PO Q8H Prescribed by: JOSEE REICH on 9/07/01 2257 Digoxin 125 Mcg Tablet, 125 MCG PO DAILY, (Reported) Fenofibrate,Micronized 134 Mg Capsule, 134 MG PO DAILY, (Reported) Gabapentin 300 Mg Capsule, 600 MG PO HS, (Reported) TAKES 2 (300 MG) CAPSULES Hyoscyamine Sulfate 0.125 Mg Tab.subl, 1-2 TAB SL Q4H Prescribed by: ROMAIN KNIGHT on 07/31/18 0411 Insulin Detemir 100 Unit/1 Ml Insuln.pen, 25 UNIT SQ BID, (Reported) Metoclopramide HCl 5 Mg Tab.rapdis, 5 MG PO ACHS, (Reported) Nitroglycerin 0.4 Mg Tab.subl, 0.4 MG SL UD PRN for CHEST PAIN, (Reported) MAX OF 3 TABS IN 15 MINUTES / CALL 911 IF PAIN REMAINS AFTER 5 MINUTES Pantoprazole Sodium 40 Mg Tablet.dr, 40 MG PO DAILY Prescribed by: RODOLFO GODWIN on 07/24/18 1843 Pentoxifylline 400 Mg Tablet.er, 400 MG PO BID, (Reported) Pravastatin Sodium 80 Mg Tablet, 80 MG PO HS, (Reported) Tamsulosin HCl 0.4 Mg Cap.er.24h, 0.4 MG PO DAILY, (Reported) Trazodone HCl 50 Mg Tablet, 50 MG PO HS, (Reported) Patient Home Medication List Home Medication List Reviewed: Yes Review of Systems Review of Systems Constitutional: no symptoms reported Respiratory: no symptoms reported Cardiovascular: no symptoms reported Gastrointestinal: no symptoms reported Psychiatric/Neurological: No Symptoms Reported All Other Systems Reviewed Negative Unless Noted: Yes Past Oacfmlg-Irsuyi-Yehnov Hx Past Med/Social Hx: Reviewed Nursing Past Med/Soc Hx Patient Social History Alcohol Use: Denies Use Number of Drinks Today: AA Alcohol Beverage of Choice: Beer Recreational Drug Use: No Smoking Status: Former Smoker Type Used: Cigarettes Former Smoker, Quit: Apr 12, 2000 2nd Hand Smoke Exposure: No Recent Foreign Travel: No Contact w/Someone Who Travel: No Recent Infectious Disease Expo: No Recent Hopitalizations: No Immunizations Up To Date Tetanus Booster (TDap): Less than 5yrs PED Vaccines UTD: No Date of Pneumonia Vaccine: Mar 08, 2018 Date of Influenza Vaccine: Mar 08, 2018 Seasonal Allergies Seasonal Allergies: No Past Medical History Surgeries: Yes (LUMBAR LAMINECTOMY) Abdominal, Angioplasty, Cardiac, CABG, Coronary Stent, Eye Surgery, Gallbladder , Joint Replacement, Open Heart Surgery, Orthopedic, Vascular Surgery Respiratory: Yes (CHRONIC DYSPNEA ON EXERTION) Sleep Apnea, COPD Currently Using CPAP: No Currently Using BIPAP: No Cardiac: Yes Atrial Fibrillation, Chronic Edema/Swelling, Coronary Artery Disease, Heart Attack, High Cholesterol, Hypertension, Peripheral Vascular Neurological: Yes (POSSIBLE STROKE/ TIA) Stroke, TIA Reproductive Disorders: No Sexually Transmitted Disease: No HIV/AIDS: No Genitourinary: Yes (RENAL INSUFFICIENCY) Benign Prostatic Hyperpl, Prostate Problems, Renal Failure Gastrointestinal: Yes (GASTROPARESIS) Abdominal Hernia, Gastroesophageal Reflux, Chronic Constipation, Diverticulosis , Pancreatitis, Polyps, Gall Bladder Disease Musculoskeletal: Yes (OLECRANON BURSITIS, CHRONIC NECK PAIN, DISH SYNDROME) Degenerate Disk Disease, Arthritis, Chronic Back Pain Endocrine: Yes Diabetes, Insulin dep HEENT: Yes Cataract Loss of Vision: Denies Hearing Impairment: Denies Cancer: No Psychosocial: Yes Anxiety Integumentary: No Blood Disorders: No Adverse Reaction/Blood Tranf: No Family Medical History Reviewed Nursing Family Hx Cancer G8 BROTHER Cataract 19 FATHER 19 MOTHER G8 BROTHER G8 BROTHER G8 SISTER Congestive heart failure 19 FATHER 19 MOTHER Family history: Arthritis 19 FATHER 19 MOTHER G8 BROTHER G8 BROTHER G8 SISTER G8 SISTER DAUGHTER SON Family history: Breast disease DAUGHTER Family history: Cardiovascular disease 19 FATHER Family history: Diabetes mellitus 19 FATHER G8 BROTHER G8 SISTER Family history: Hypertension 19 FATHER 19 MOTHER G8 BROTHER G8 BROTHER G8 SISTER G8 SISTER DAUGHTER SON Family history: Thyroid disorder DAUGHTER Heart disease 19 FATHER 19 MOTHER G8 BROTHER Hypercholesterolemia 19 FATHER 19 MOTHER G8 BROTHER G8 BROTHER G8 SISTER Myocardial infarction 19 FATHER 19 MOTHER G8 BROTHER No Family History of: Abdominal aortic aneurysm Robel's disease Alcoholism Aphasia Cancer of colon Chest pain Congenital heart disease Cystic fibrosis Dementia Dysphagia Family history: Allergy Family history: Alzheimer's disease Family history: Asthma Family history: Coronary thrombosis Family history: Gastrointestinal disease Family history: Glaucoma Family history: Osteoporosis Headache Hearing loss Hereditary disease History of - anemia History of - disorder History of - respiratory disease History of drug abuse Human immunodeficiency virus (HIV) seropositivity Infertile Kidney disease Malignant neoplasm of lung Parkinson's disease Prostate cancer Psychotic disorder Seizure disorder Stroke Tuberculosis Visual impairment Physical Exam Vital Signs Vital Signs - First Documented 08/13/18 14:54 Temp 97.8 Pulse 92 Resp 18 B/P (MAP) 121/79 (93) Pulse Ox 97 O2 Delivery Room Air Capillary Refill : Less Than 3 Seconds Height, Weight, BMI Height: 6'0" Weight: 184lbs. 0.0oz. [id number]; 26.1 BMI Method:Stated General Appearance: No Apparent Distress, WD/WN HEENT: PERRL/EOMI, Pharynx Normal Neck: Non Tender, Supple Respiratory: Lungs Clear, Normal Breath Sounds Cardiovascular: Regular Rate, Rhythm, No Murmur Neurologic/Psychiatric: Alert, Oriented x3 Skin: Normal Color, Warm/Dry Progress/Results/Core Measures Suspected Sepsis Recent Fever Within 48 Hours: No Infection Criteria Present: None New/Unexplained Altered Menta: No Sepsis Screen: No Definite Risk SIRS Temperature:97.8 Pulse: 92 Respiratory Rate: 18 Blood Pressure 121 /79 Mean: 93 Results/Orders Vital Signs/I&O 08/13/18 14:54 Temp 97.8 Pulse 92 Resp 18 B/P (MAP) 121/79 (93) Pulse Ox 97 O2 Delivery Room Air Capillary Refill : Less Than 3 Seconds Blood Pressure Mean: 93 Progress Note : Progress Note Seen and evaluated. Blood pressure monitored and noted to be mid 90s systolic to 121 systolic. His son happened to come by and he also visited with the patient. We do believe that the clonidine is what he is taking although the patient does have some confusion about his meds. I did discuss with him about taking his clonidine and only take it if his systolic blood pressure greater than 180 areas haven't symptoms. He and his agree that they can do that. 1554: Overall is feeling better right now on blood pressure is 118/80 with heart rate of 85 and O2 sat at 95% on room air. At this point patient to be discharged home with return precautions. Patient and family verbalize understanding instructions and agreement with plan. Departure Impression Primary Impression: Labile blood pressure Disposition: 01 HOME, SELF-CARE Condition: Improved Departure-Patient Inst. Decision time for Depature: 15:56 Referrals: IRAJ HERRERA MD (PCP/Family) Primary Care Physician Patient Instructions: High Blood Pressure (DC), Low Blood Pressure (DC) Add. Discharge Instructions: All discharge instructions reviewed with patient and/or family. Voiced understanding. You may check your blood pressure in the morning and take the clonidine if your blood pressure is greater than 180 systolic (top number. Do not take it if is less and that unless you're having symptoms such as chest pain, headache or breathing problems. Follow-up with your doctor this week for recheck and further evaluation. Return for worse pain, fever, vomiting, weakness, breathing problems or other concerns as needed. CHARO SCHNEIDER MD Aug 13, 2018 15:56
[2018-08-13 16:03] VITALS: BP 118/80
== END 2018-08-13 16:03 | disposition home or self-care (01) ==
LOC: EDUNIT# 14:41 → ER 14:43
DX: I10 Essential (primary) hypertension (principal); J44.9 Chronic obstructive pulmonary disease, unspecified; G47.30 Sleep apnea, unspecified; I48.91 Unspecified atrial fibrillation; I25.10 Atherosclerotic heart disease of native coronary artery without angina pectoris; E78.00 Pure hypercholesterolemia, unspecified; E11.43 Type 2 diabetes mellitus with diabetic autonomic (poly)neuropathy; K31.84 Gastroparesis; K21.9 Gastro-esophageal reflux disease without esophagitis; F41.9 Anxiety disorder, unspecified; I73.9 Peripheral vascular disease, unspecified; I25.2 Old myocardial infarction; Z88.1 Allergy status to other antibiotic agents; Z88.0 Allergy status to penicillin; Z82.49 Family history of ischemic heart disease and other diseases of the circulatory system; Z87.448 Personal history of other diseases of urinary system; Z86.73 Personal history of transient ischemic attack (TIA), and cerebral infarction without residual deficits; Z86.010 Personal history of colon polyps; Z87.19 Personal history of other diseases of the digestive system; Z88.8 Allergy status to other drugs, medicaments and biological substances; Z79.01 Long term (current) use of anticoagulants; Z79.4 Long term (current) use of insulin; Z87.891 Personal history of nicotine dependence; Z98.1 Arthrodesis status; Z95.5 Presence of coronary angioplasty implant and graft; Z95.1 Presence of aortocoronary bypass graft; Z98.890 Other specified postprocedural states
CPT/HCPCS: 99281

== ENCOUNTER 2018-09-21 20:56 | Emergency (ER) | payer MEDICARE, MEDICAID ==
--- OUTSIDE RECORDS SUMMARY | 2018-09-21 21:01 | XMS REPORT | Clinical Summary ---
Author Author [facility] Organization [facility] Address Unknown Phone Unavailable Care Team Providers Care Director Of Marketing [employer] Name Role Phone Chance Ward PCP Source Comments Some departments are not documenting in the electronic medical record. If you do not see the information that you expected, contact Release of Information in the Health Information Management department at [phone] for further assistance in locating additional records.[facility] Allergies Not on File Medications End Date [...] Problem Noted Date Coronary artery disease involving [place] coronary artery 10/24/2016 Overview: 2000 CABG x 4 02/17/12 PTCA BMS to vein graft to the OM 03/02/16 severe in-stent restenosis in the SVG to the OM with successful PCI, no residual stenosis, patent VG to RCA VG to the diag artery and AMANDA to the LAD occluded [place] vessels proximally, small vessel disease distally 09/25/16 [facility] - severe [place] disease, patent graft to RCA, diagonal LAD, [...] (1 of 2 - PCV13) INFLUENZA VACCINE 02/11/2019 Implants Device Identifier Shelf Expiration Date Model / Serial / Lot Implanted Type Area Manufactur er Loop Recorder Loop Recorder Results Not on filefrom Last 3 Months Insurance Type Payer Benefit Subscriber ID Effective Phone Address Plan / Dates Group Medicare MEDICARE MEDICARE xxxxxxxxxx 1995- PART A AND Present B Advance Directives Patient has advance care planning documents on file. For more information, please contact: [facility] [address] [place] [address]
--- NOTE | 2018-09-21 21:15 | NUR ---
PT'S NAME CALLED THREE TIMES IN WAITING ROOM, CHECKED BATHROOM, CHECKED OUTSIDE, PT ABSENT IN THE ED. REGISTRAITION STAFF ADVISE THIS NURSE THAT THE PT BECAME UPSET AND GATHERED HIS THINGS AND LEFT AMBULATORY 2-3 MINUTES EARLIER.
== END 2018-09-21 21:15 | disposition left against medical advice (07) ==
LOC: EDUNIT# 20:56 → ER 20:57
DX: R69 Illness, unspecified (principal)

== ENCOUNTER 2018-10-27 20:40 | Emergency (ER) | payer MEDICAID, MEDICARE ==
[~2018-10-27] VITALS: Ht 182.9 cm; Wt 80.7 kg
[~2018-10-27 20:40] MED LIST changes: -TRAZ-189 PO; +TRAZ-222 PO
[2018-10-27 21:03] LABS: BASOPHILS % (AUTO) 1 % (0-10); EOSINOPHILS # (AUTO) 0.1 10^3/uL (0.0-0.3); EOSINOPHILS % (AUTO) 2 % (0-10); HEMATOCRIT 36 % (40-54); HEMOGLOBIN 11.4 G/DL (13.3-17.7); LYMPHOCYTES # (AUTO) 1.7 X 10^3 (1.0-4.0); LYMPHOCYTES % (AUTO) 27 % (12-44); MEAN CORPUSCULAR HEMOGLOBIN 26 PG (25-34); MEAN CORPUSCULAR HGB CONC 32 G/DL (32-36); MEAN CORPUSCULAR VOLUME 82 FL (80-99); MEAN PLATELET VOLUME 10.2 FL (7.4-10.4); MONOCYTES # (AUTO) 0.6 X 10^3 (0.0-1.0); MONOCYTES % (AUTO) 9 % (0-12); NEUTROPHILS # (AUTO) 3.9 X 10^3 (1.8-7.8); NEUTROPHILS % (AUTO) 61 % (42-75); PLATELET COUNT 284 10^3/uL (130-400); RED CELL DISTRIBUTION WIDTH 15.1 % (10.0-14.5); WHITE BLOOD COUNT 6.3 10^3/uL (4.3-11.0)
[2018-10-27] MEDS ORDERED: cilostazol (21:06)
[2018-10-27] MEDS ORDERED: clonidine (21:06)
--- NOTE | 2018-10-27 21:06 | ED Chest Pain ---
General Chief Complaint: Chest Pain Stated Complaint: CHEST PAIN Nursing Triage Note: Patient activated EMS this evening secondary to c/o chest pain rating at a 6/10 that began around 0. Patient self administered 1 nitro prior to EMS arrival and has been chest pain free since. Patient is resting comfortably at this time. Nursing Sepsis Screen: No Definite Risk History of Present Illness Date Seen by Provider: Oct 27, 2018 Time Seen by Provider: 20:55 Initial Comments 78-year-old male presents for chest pain. Patient reports he was walking his dog at approximately 7:15 this evening, he began having chest pain and was able to return home and take a nitroglycerin. He called EMS and when they presented 10 minutes later his pain was gone. He denies any diaphoresis or nausea at the time of this chest pain. He currently reports no chest pain. He takes Eliquis but no aspirin. He denies any other complaints at this time. Timing/Duration: 1 hour Severity/Quality: mild Location: substernal Radiation: no radiation Activities at Onset: activity Prior CP/Workup: angina, cardiac cath, echocardiography ASA po ROAD SERVICE LOCKSMITH: No NTG SL ROAD SERVICE LOCKSMITH: Yes Associated Symptoms: denies symptoms Allergies and Home Medications Allergies Coded Allergies: celecoxib (Unverified Allergy, Mild, TAKES ASPIRIN AT HOME, 12/21/14) diclofenac (Unverified Allergy, Mild, TAKES ASPIRIN AT HOME, 12/21/14) naproxen (Unverified Allergy, Mild, TAKES ASPIRIN AT HOME, 12/21/14) rosuvastatin (Unverified Allergy, Mild, 08/14/08) Penicillins (Verified Allergy, Unknown, 08/03/05) amoxicillin (Verified Allergy, Unknown, 08/03/05) fenofibrate (Unverified Allergy, Unknown, 06/05/16) simvastatin (Unverified Allergy, Unknown, 06/05/16) Uncoded Allergies: GEMIFIBOROZIL (Allergy, Unknown, 06/05/16) Home Medications Amiodarone HCl 200 Mg Tablet, 200 MG PO BID, (Reported) Apixaban 5 Mg Tablet, 5 MG PO BID, (Reported) Baclofen 10 Mg Tablet, 10 MG PO TID PRN for MUSCLE SPASMS, (Reported) Benzonatate 100 Mg Capsule, 100 MG PO Q8H Prescribed by: JOSEE REICH on 01/13/18 4003 Digoxin 125 Mcg Tablet, 125 MCG PO DAILY, (Reported) Fenofibrate,Micronized 134 Mg Capsule, 134 MG PO DAILY, (Reported) Gabapentin 300 Mg Capsule, 600 MG PO HS, (Reported) TAKES 2 (300 MG) CAPSULES Hyoscyamine Sulfate 0.125 Mg Tab.subl, 1-2 TAB SL Q4H Prescribed by: ROMAIN KNIGHT on 07/31/18 0411 Insulin Detemir 100 Unit/1 Ml Insuln.pen, 25 UNIT SQ BID, (Reported) Metoclopramide HCl 5 Mg Tab.rapdis, 5 MG PO ACHS, (Reported) Nitroglycerin 0.4 Mg Tab.subl, 0.4 MG SL UD PRN for CHEST PAIN, (Reported) MAX OF 3 TABS IN 15 MINUTES / CALL 911 IF PAIN REMAINS AFTER 5 MINUTES Pantoprazole Sodium 40 Mg Tablet.dr, 40 MG PO DAILY Prescribed by: RODOLFO GODWIN on 07/24/18 1843 Pentoxifylline 400 Mg Tablet.er, 400 MG PO BID, (Reported) Pravastatin Sodium 80 Mg Tablet, 80 MG PO HS, (Reported) Tamsulosin HCl 0.4 Mg Cap.er.24h, 0.4 MG PO DAILY, (Reported) Trazodone HCl 50 Mg Tablet, 50 MG PO HS, (Reported) Patient Home Medication List Home Medication List Reviewed: Yes Review of Systems Review of Systems Constitutional: no symptoms reported, see HPI Respiratory: No Symptoms Reported, See HPI; Denies Cough Cardiovascular: See HPI, Chest Pain (resolved after 1 dose of nitroglycerin) Gastrointestinal: No Symptoms Reported, See HPI All Other Systems Reviewed Negative Unless Noted: Yes Past Dlufsbg-Njjfmg-Txgtbj Hx Past Med/Social Hx: Reviewed Nursing Past Med/Soc Hx Patient Social History Alcohol Use: Denies Use Number of Drinks Today: AA Alcohol Beverage of Choice: Beer Recreational Drug Use: No Smoking Status: Former Smoker Type Used: Cigarettes Former Smoker, Quit: Apr 12, 2000 2nd Hand Smoke Exposure: No Recent Foreign Travel: No Contact w/Someone Who Travel: No Recent Infectious Disease Expo: No Recent Hopitalizations: No Immunizations Up To Date Tetanus Booster (TDap): Less than 5yrs PED Vaccines UTD: No Date of Pneumonia Vaccine: Mar 08, 2018 Date of Influenza Vaccine: Mar 08, 2018 Seasonal Allergies Seasonal Allergies: No Past Medical History Surgeries: Yes (LUMBAR LAMINECTOMY) Abdominal, Angioplasty, Cardiac, CABG, Coronary Stent, Eye Surgery, Gallbladder, Joint Replacement, Open Heart Surgery, Orthopedic, Vascular Surgery Respiratory: Yes (CHRONIC DYSPNEA ON EXERTION) Sleep Apnea, COPD Currently Using CPAP: No Currently Using BIPAP: No Cardiac: Yes Atrial Fibrillation, Chronic Edema/Swelling, Coronary Artery Disease, Heart Attack, High Cholesterol, Hypertension, Peripheral Vascular Neurological: Yes (POSSIBLE STROKE/ TIA) Stroke, TIA Reproductive Disorders: No Sexually Transmitted Disease: No HIV/AIDS: No Genitourinary: Yes (RENAL INSUFFICIENCY) Benign Prostatic Hyperpl, Prostate Problems, Renal Failure Gastrointestinal: Yes (GASTROPARESIS) Abdominal Hernia, Gastroesophageal Reflux, Chronic Constipation, Diverticulosis, Pancreatitis, Polyps, Gall Bladder Disease Musculoskeletal: Yes (OLECRANON BURSITIS, CHRONIC NECK PAIN, DISH SYNDROME) Degenerate Disk Disease, Arthritis, Chronic Back Pain Endocrine: Yes Diabetes, Insulin dep HEENT: Yes Cataract Loss of Vision: Denies Hearing Impairment: Denies Cancer: No Psychosocial: Yes Anxiety Integumentary: No Blood Disorders: No Adverse Reaction/Blood Tranf: No Family Medical History Cancer G8 BROTHER Cataract 19 FATHER 19 MOTHER G8 BROTHER G8 BROTHER G8 SISTER Congestive heart failure 19 FATHER 19 MOTHER Family history: Arthritis 19 FATHER 19 MOTHER G8 BROTHER G8 BROTHER G8 SISTER G8 SISTER DAUGHTER SON Family history: Breast disease DAUGHTER Family history: Cardiovascular disease 19 FATHER Family history: Diabetes mellitus 19 FATHER G8 BROTHER G8 SISTER Family history: Hypertension 19 FATHER 19 MOTHER G8 BROTHER G8 BROTHER G8 SISTER G8 SISTER DAUGHTER SON Family history: Thyroid disorder DAUGHTER Heart disease 19 FATHER 19 MOTHER G8 BROTHER Hypercholesterolemia 19 FATHER 19 MOTHER G8 BROTHER G8 BROTHER G8 SISTER Myocardial infarction 19 FATHER 19 MOTHER G8 BROTHER No Family History of: Abdominal aortic aneurysm [place]'s disease Alcoholism Aphasia Cancer of colon Chest pain Congenital heart disease Cystic fibrosis Dementia Dysphagia Family history: Allergy Family history: Alzheimer's disease Family history: Asthma Family history: Coronary thrombosis Family history: Gastrointestinal disease Family history: Glaucoma Family history: Osteoporosis Headache Hearing loss Hereditary disease History of - anemia History of - disorder History of - respiratory disease History of drug abuse Human immunodeficiency virus (HIV) seropositivity Infertile Kidney disease Malignant neoplasm of lung Parkinson's disease Prostate cancer Psychotic disorder Seizure disorder Stroke Tuberculosis Visual impairment Physical Exam Vital Signs Vital Signs - First Documented 10/27/18 20:54 Pulse 94 Resp 14 B/P (MAP) 139/92 (108) Pulse Ox 94 O2 Delivery Room Air Capillary Refill : Less Than 3 Seconds Height, Weight, BMI Height: 6'0" Weight: 178lbs. 0.0oz. 80.952933tz; 26.1 BMI Method:Stated General Appearance: No Apparent Distress HEENT: PERRL/EOMI, TMs Normal, Normal ENT Inspection, Pharynx Normal Neck: Full Range of Motion, Normal Inspection, Non Tender, Supple Respiratory: Chest Non Tender, Lungs Clear, Normal Breath Sounds Cardiovascular: Regular Rate, Rhythm, No Edema, Normal Peripheral Pulses Gastrointestinal: Normal Bowel Sounds, Non Tender, Soft Neurologic/Psychiatric: Alert, Oriented x3, No Motor/Sensory Deficits, Normal Mood/Affect Skin: Normal Color, Warm/Dry Progress/Results/Core Measures Results/Orders Lab Results Laboratory Tests Test 10/27/18 20:52 Range/Units White Blood Count 6.3 4.3-11.0 10^3/uL Red Blood Count 4.33 L 4.35-5.85 10^6/uL Hemoglobin 11.4 L 13.3-17.7 G/DL Hematocrit 36 L 40-54 % Mean Corpuscular Volume 82 80-99 FL Mean Corpuscular Hemoglobin 26 25-34 PG Mean Corpuscular Hemoglobin Concent 32 32-36 G/DL Red Cell Distribution Width 15.1 H 10.0-14.5 % Platelet Count 284 130-400 10^3/uL Mean Platelet Volume 10.2 7.4-10.4 FL Neutrophils (%) (Auto) 61 42-75 % Lymphocytes (%) (Auto) 27 12-44 % Monocytes (%) (Auto) 9 0-12 % Eosinophils (%) (Auto) 2 0-10 % Basophils (%) (Auto) 1 0-10 % Neutrophils # (Auto) 3.9 1.8-7.8 X 10^3 Lymphocytes # (Auto) 1.7 1.0-4.0 X 10^3 Monocytes # (Auto) 0.6 0.0-1.0 X 10^3 Eosinophils # (Auto) 0.1 0.0-0.3 10^3/uL Basophils # (Auto) 0.0 0.0-0.1 10^3/uL Prothrombin Time 15.3 H 12.2-14.7 SEC INR Comment 1.2 0.8-1.4 Activated Partial Thromboplast Time 36 H 24-35 SEC Sodium Level 138 135-145 MMOL/L Potassium Level 4.0 3.6-5.0 MMOL/L Chloride Level 111 H 98-107 MMOL/L Carbon Dioxide Level 15 L 21-32 MMOL/L Anion Gap 12 5-14 MMOL/L Blood Urea Nitrogen 11 7-18 MG/DL Creatinine 1.55 H 0.60-1.30 MG/DL Estimat Glomerular Filtration Rate 44 BUN/Creatinine Ratio 7 Glucose Level 312 H 70-105 MG/DL Calcium Level 9.1 8.5-10.1 MG/DL Corrected Calcium 9.3 8.5-10.1 MG/DL Magnesium Level 2.0 1.8-2.4 MG/DL Total Bilirubin 0.2 0.1-1.0 MG/DL Aspartate Amino Transf (AST/SGOT) 18 5-34 U/L Alanine Aminotransferase (ALT/SGPT) 14 0-55 U/L Alkaline Phosphatase 63 40-136 U/L Myoglobin 53.6 10.0-92.0 NG/ML Troponin I < 0.028 <0.028 NG/ML Total Protein 6.7 6.4-8.2 GM/DL Albumin 3.8 3.2-4.5 GM/DL My Orders Orders - MARY MENDEZ Cbc With Automated Diff (10/27/18 20:56) Magnesium (10/27/18 20:56) Chest 1 View, Ap/Pa Only (10/27/18 20:56) Cardiac Profile 1 (10/27/18 20:56) Comprehensive Metabolic Panel (10/27/18 20:56) Myoglobin Serum (10/27/18 20:56) Protime With Inr (10/27/18 20:56) Partial Thromboplastin Time (10/27/18 20:56) O2 (10/27/18 20:56) Ed Iv/Invasive Line Start (10/27/18 20:56) Aspirin Chewable Tablet (Baby Aspirin Ch (10/27/18 21:15) Medications Given in ED Current Medications Medications Dose Ordered Sig/Alka Route Start Time Stop Time Status Last Admin Dose Admin Aspirin 324 mg ONCE ONCE PO 10/27/18 21:15 6/16/19 21:16 DC 10/27/18 21:17 324 MG Vital Signs/I&O 10/27/18 10/27/18 10/27/18 10/27/18 20:54 20:54 21:01 22:00 Pulse 94 76 Resp 14 14 B/P (MAP) 139/92 (108) 131/101 (111) Pulse Ox 94 94 98 O2 Delivery Room Air Room Air Room Air Room Air Blood Pressure Mean: 108 Progress Progress Note : Time: 20:55 Progress Note Patient seen and evaluated, will start chest pain workup including EKG, chest x- ray, labs and aspirin. Will continue to monitor. 2129 labs all essentially normal, chest x-ray normal. Glucose elevated at 325. Discussed this with the patient. He takes his Levemir at night. He does report eating biscuits and gravy for dinner approximately 3 hours ago. Offered to give regular insulin and recheck Accu-Chek, patient prefers to return home and use his home insulin. Encouraged she track is glucose and follow-up with Dr. Herrera if he continues to be elevated. His reports it's very labile as he does not adhere to a low-carb diet. Discussed with a negative troponin and normal chest x-ray, his symptoms were probably angina, especially with the improvement after Nitro. 2200 discharge instructions and return precautions reviewed with the patient. A ll questions answered. Initial ECG Impression Date: Oct 27, 2018 Initial ECG Impression Time: 20:51 Initial ECG Rate: 99 Initial ECG Rhythm: Normal Sinus Initial ECG Intervals: Normal Initial ECG Intervals RI 188, QRSD 92, QT 368, QTC 473. [place] P 58, QRS -16, T 45. Initial ECG Impression: Normal Initial ECG Comparisson: Unchanged Comment Review reviewed with Dr. Regalado along with previous EKG, agreed with interpretation. Diagnostic Imaging Diagonstic Imaging: Xray Plain Films/CT/US/NM/MRI: chest Comments NAME: CASTRO PADRON [place] MED REC#: [id number] PT STATUS: REG ER : 1940 PHYSICIAN: MARY MENDEZ ADMIT DATE: 10/27/18/ER Draft Date of Exam:10/27/18 CHEST 1 VIEW, AP/PA ONLY INDICATION: Chest pain, coronary artery disease Portable chest 9:06 PM There are postop changes from CABG surgery. There is a loop recorder projecting over the left side of the chest. Heart size and pulmonary vascularity are normal. Lungs are clear. IMPRESSION: Postsurgical changes. No acute abnormality seen. Dictated on workstation # [id number] Dict: 10/27/182118 Trans: 10/27/182122 EDA [id number] Interpreted by: CHARO SOTO MD Electronically signed by: Reviewed: Reviewed by Me Departure Impression Primary Impression: Stable angina Additional Impression: Hyperglycemia Disposition: HOME, SELF-CARE Condition: Improved Departure-Patient Inst. Decision time for Depature: 21:40 Referrals: BISI STILES MD, CHAD C MD (PCP/Family) Primary Care Physician Patient Instructions: Angina (DC), Chest Pain That Is Not Caused by the Heart (DC) Add. Discharge Instructions: Continue to take her home medication as directed. Monitor your glucose 2-3 times daily and document to take to Dr. Herrera next appointment. Check your glucose at approximately 9 PM for the next few evenings. Take your Levemir as soon as she returned home. Increase water intake and decreased carb loads. Using her nitroglycerin as soon issue have any angina. Schedule follow-up appointment with Dr. Stiles. Return to emergency department for chest pain not relieved by nitroglycerin, difficulty breathing, or new concerns. All discharge instructions reviewed with patient and/or family. Voiced understanding. Copy Copies To 1: IRAJ HERRERA MD Copies To 2: BISI STILES MD, AMY ARNP Oct 27, 2018 21:06
[2018-10-27 21:10] LABS: INR 1.2 (0.8-1.4); PROTHROMBIN TIME PATIENT 15.3 SEC (12.2-14.7)
[2018-10-27] MEDS ORDERED: ASPIRIN 81 MG CHEW (CHILDREN'S ASA) PO ONE (21:15)
[2018-10-27 21:18] LABS: ALANINE AMINOTRANSFERASE 14 U/L (0-55); ALBUMIN 3.8 GM/DL (3.2-4.5); ALKALINE PHOSPHATASE 63 U/L (40-136); BILIRUBIN,TOTAL 0.2 MG/DL (0.1-1.0); BUN/CREATININE RATIO 7; CALCIUM 9.1 MG/DL (8.5-10.1); CARBON DIOXIDE 15 MMOL/L (21-32); CHLORIDE 111 MMOL/L (98-107); CREATININE SERUM 1.55 MG/DL (0.60-1.30); GFR ESTIMATED 44; GLUCOSE 312 MG/DL (70-105); SODIUM 138 MMOL/L (135-145); TOTAL PROTEIN 6.7 GM/DL (6.4-8.2)
--- NOTE | 2018-10-27 21:24 | Diagnostic Imaging Report ---
INDICATION: Chest pain, coronary artery disease Portable chest 9:06 PM There are postop changes from CABG surgery. There is a loop recorder projecting over the left side of the chest. Heart size and pulmonary vascularity are normal. Lungs are clear. IMPRESSION: Postsurgical changes. No acute abnormality seen. Dictated by: Dictated on workstation # [id number]
[2018-10-27 22:00] VITALS: BP 131/101
== END 2018-10-27 21:59 | disposition home or self-care (01) ==
LOC: EDUNIT# 20:40 → ER 20:42
DX: I20.8 Other forms of angina pectoris (principal); E11.65 Type 2 diabetes mellitus with hyperglycemia; G47.30 Sleep apnea, unspecified; J44.9 Chronic obstructive pulmonary disease, unspecified; I48.91 Unspecified atrial fibrillation; I25.10 Atherosclerotic heart disease of native coronary artery without angina pectoris; I25.2 Old myocardial infarction; E78.00 Pure hypercholesterolemia, unspecified; E11.51 Type 2 diabetes mellitus with diabetic peripheral angiopathy without gangrene; I73.9 Peripheral vascular disease, unspecified; I10 Essential (primary) hypertension; F41.9 Anxiety disorder, unspecified; K21.9 Gastro-esophageal reflux disease without esophagitis; Z86.010 Personal history of colon polyps; Z87.448 Personal history of other diseases of urinary system; Z82.49 Family history of ischemic heart disease and other diseases of the circulatory system; Z86.73 Personal history of transient ischemic attack (TIA), and cerebral infarction without residual deficits; Z88.1 Allergy status to other antibiotic agents; Z88.8 Allergy status to other drugs, medicaments and biological substances; Z88.0 Allergy status to penicillin; Z79.01 Long term (current) use of anticoagulants; Z79.4 Long term (current) use of insulin; Z87.891 Personal history of nicotine dependence; Z95.1 Presence of aortocoronary bypass graft; Z98.1 Arthrodesis status; Z95.5 Presence of coronary angioplasty implant and graft; Z98.890 Other specified postprocedural states
CPT/HCPCS: 36415; 71045; 80053; 83735; 83874; 84484; 85025; 85610; 85730; 93005

== ENCOUNTER 2018-11-05 17:35 | Emergency (ER) | payer MEDICARE ==
[~2018-11-05] VITALS: Ht 182.9 cm; Wt 80.7 kg
[~2018-11-05 17:35] MED LIST changes: +cilostazol; +clonidine
--- NOTE | 2018-11-05 18:07 | NUR ---
TO ROOM NO CHANGE FROM TRIAGE. Addendum: 11/05/18 at 1824 by PMCCLURE PATIENT STATES THAT HE WAS STARTED ON MULTAQ 2 DAYS AGO HAS HAD DIARRHEA SINCE.
[2018-11-05] MEDS ORDERED: NS IV 1000 ML 1,000 ML IV ONE (18:10)
[2018-11-05 18:25] LABS: BASOPHILS % (AUTO) 1 % (0-10); EOSINOPHILS % (AUTO) 1 % (0-10); HEMATOCRIT 38 % (40-54); LYMPHOCYTES # (AUTO) 1.3 X 10^3 (1.0-4.0); LYMPHOCYTES % (AUTO) 24 % (12-44); MEAN CORPUSCULAR HEMOGLOBIN 26 PG (25-34); MEAN CORPUSCULAR HGB CONC 32 G/DL (32-36); MEAN CORPUSCULAR VOLUME 82 FL (80-99); MEAN PLATELET VOLUME 9.5 FL (7.4-10.4); MONOCYTES # (AUTO) 0.4 X 10^3 (0.0-1.0); MONOCYTES % (AUTO) 8 % (0-12); NEUTROPHILS # (AUTO) 3.7 X 10^3 (1.8-7.8); NEUTROPHILS % (AUTO) 67 % (42-75); PLATELET COUNT 287 10^3/uL (130-400); RED CELL DISTRIBUTION WIDTH 15.5 % (10.0-14.5); WHITE BLOOD COUNT 5.5 10^3/uL (4.3-11.0)
--- NOTE | 2018-11-05 18:47 | NUR ---
REPORT TO MALU VELASCO
[2018-11-05 18:48] LABS: ALANINE AMINOTRANSFERASE 12 U/L (0-55); ALBUMIN 4.2 GM/DL (3.2-4.5); ALKALINE PHOSPHATASE 68 U/L (40-136); BILIRUBIN,TOTAL 0.4 MG/DL (0.1-1.0); BUN/CREATININE RATIO 10; CALCIUM 9.5 MG/DL (8.5-10.1); CARBON DIOXIDE 17 MMOL/L (21-32); CHLORIDE 112 MMOL/L (98-107); CREATININE SERUM 1.55 MG/DL (0.60-1.30); GFR ESTIMATED 44; GLUCOSE 239 MG/DL (70-105); POTASSIUM 3.7 MMOL/L (3.6-5.0); SODIUM 141 MMOL/L (135-145); TOTAL PROTEIN 7.3 GM/DL (6.4-8.2)
[2018-11-05] MEDS ORDERED: LACTATED RINGERS 1,000 ML IV ONE (19:01)
[2018-11-05 20:48] VITALS: BP 111/90
--- NOTE | 2018-11-06 06:11 | ED General ---
General Chief Complaint: Abdominal/GI Problems Stated Complaint: DIARRHEA,HYPOTENSION Nursing Triage Note: PT HAS HISTORY OF AFIB. PT STATES HAVING DIARRHEA FOR 2 DAYS. PT STATES PRIOR TO ARRIVAL HE HAD HYPOTENSION. PT DENIES DARK TARRY STOOLS. PT DENIES N/V/FEVER Nursing Sepsis Screen: No Definite Risk Source of Information: Patient, Old Records Exam Limitations: No Limitations History of Present Illness Date Seen by Provider: Nov 05, 2018 Time Seen by Provider: 18:10 Initial Comments This 78-year-old gentleman presents to the emergency room complaining of rather intense diarrhea for the past 2 days. It is watery in nature and associated with mild cramping. He has felt lightheaded and short of breath associated with this. He is noted to be tachycardic with a heart rate around 150. Patient states he started Multaq 3 days ago and the diarrhea started the day after. He believes the diarrhea may be associated with the Multaq. Allergies and Home Medications Allergies Coded Allergies: celecoxib (Unverified Allergy, Mild, TAKES ASPIRIN AT HOME, 12/21/14) diclofenac (Unverified Allergy, Mild, TAKES ASPIRIN AT HOME, 12/21/14) naproxen (Unverified Allergy, Mild, TAKES ASPIRIN AT HOME, 12/21/14) rosuvastatin (Unverified Allergy, Mild, 08/14/08) Penicillins (Verified Allergy, Unknown, 08/03/05) amoxicillin (Verified Allergy, Unknown, 08/03/05) fenofibrate (Unverified Allergy, Unknown, 06/05/16) simvastatin (Unverified Allergy, Unknown, 06/05/16) Uncoded Allergies: GEMIFIBOROZIL (Allergy, Unknown, 06/05/16) Home Medications Amiodarone HCl 200 Mg Tablet, 200 MG PO BID, (Reported) Apixaban 5 Mg Tablet, 5 MG PO BID, (Reported) Baclofen 10 Mg Tablet, 10 MG PO TID PRN for MUSCLE SPASMS, (Reported) Benzonatate 100 Mg Capsule, 100 MG PO Q8H Prescribed by: JOSEE REICH on 01/13/18 5038 Digoxin 125 Mcg Tablet, 125 MCG PO DAILY, (Reported) Fenofibrate,Micronized 134 Mg Capsule, 134 MG PO DAILY, (Reported) Gabapentin 300 Mg Capsule, 600 MG PO HS, (Reported) TAKES 2 (300 MG) CAPSULES Hyoscyamine Sulfate 0.125 Mg Tab.subl, 1-2 TAB SL Q4H Prescribed by: ROMAIN KNIGHT on 07/31/18 0411 Insulin Detemir 100 Unit/1 Ml Insuln.pen, 25 UNIT SQ BID, (Reported) Metoclopramide HCl 5 Mg Tab.rapdis, 5 MG PO ACHS, (Reported) Nitroglycerin 0.4 Mg Tab.subl, 0.4 MG SL UD PRN for CHEST PAIN, (Reported) MAX OF 3 TABS IN 15 MINUTES / CALL 911 IF PAIN REMAINS AFTER 5 MINUTES Pantoprazole Sodium 40 Mg Tablet.dr, 40 MG PO DAILY Prescribed by: RODOLFO GODWIN on 07/24/18 1843 Pentoxifylline 400 Mg Tablet.er, 400 MG PO BID, (Reported) Pravastatin Sodium 80 Mg Tablet, 80 MG PO HS, (Reported) Tamsulosin HCl 0.4 Mg Cap.er.24h, 0.4 MG PO DAILY, (Reported) Trazodone HCl 50 Mg Tablet, 50 MG PO HS, (Reported) Patient Home Medication List Home Medication List Reviewed: Yes Review of Systems Review of Systems Constitutional: no symptoms reported EENTM: no symptoms reported Respiratory: no symptoms reported Cardiovascular: see HPI Gastrointestinal: see HPI Genitourinary: no symptoms reported Musculoskeletal: no symptoms reported Skin: no symptoms reported Psychiatric/Neurological: No Symptoms Reported Hematologic/Lymphatic: No Symptoms Reported Immunological/Allergic: no symptoms reported Past Pdkgumn-Fkhcxf-Pwslqj Hx Past Med/Social Hx: Reviewed Nursing Past Med/Soc Hx Patient Social History Alcohol Use: Denies Use Alcohol Beverage of Choice: Beer Recreational Drug Use: No Type Used: Cigarettes Former Smoker, Quit: Apr 12, 2000 2nd Hand Smoke Exposure: No Recent Foreign Travel: No Contact w/Someone Who Travel: No Recent Infectious Disease Expo: No Recent Hopitalizations: No Immunizations Up To Date Tetanus Booster (TDap): Less than 5yrs PED Vaccines UTD: No Date of Pneumonia Vaccine: Mar 08, 2018 Date of Influenza Vaccine: Mar 08, 2018 Seasonal Allergies Seasonal Allergies: No Past Medical History Surgeries: Yes (LUMBAR LAMINECTOMY) Abdominal, Angioplasty, Cardiac, CABG, Coronary Stent, Eye Surgery, Gallbladder, Joint Replacement, Open Heart Surgery, Orthopedic, Vascular Surgery Respiratory: Yes (CHRONIC DYSPNEA ON EXERTION) Sleep Apnea, COPD Currently Using CPAP: No Currently Using BIPAP: No Cardiac: Yes Atrial Fibrillation, Chronic Edema/Swelling, Coronary Artery Disease, Heart Attack, High Cholesterol, Hypertension, Peripheral Vascular Neurological: Yes (POSSIBLE STROKE/ TIA) Stroke, TIA Reproductive Disorders: No Sexually Transmitted Disease: No HIV/AIDS: No Genitourinary: Yes (RENAL INSUFFICIENCY) Benign Prostatic Hyperpl, Prostate Problems, Renal Failure Gastrointestinal: Yes (GASTROPARESIS) Abdominal Hernia, Gastroesophageal Reflux, Chronic Constipation, Diverticulosis, Pancreatitis, Polyps, Gall Bladder Disease Musculoskeletal: Yes (OLECRANON BURSITIS, CHRONIC NECK PAIN, DISH SYNDROME) Degenerate Disk Disease, Arthritis, Chronic Back Pain Endocrine: Yes Diabetes, Insulin dep HEENT: Yes Cataract Loss of Vision: Denies Hearing Impairment: Denies Cancer: No Psychosocial: Yes Anxiety Integumentary: No Blood Disorders: No Adverse Reaction/Blood Tranf: No Family Medical History Cancer G8 BROTHER Cataract 19 FATHER 19 MOTHER G8 BROTHER G8 BROTHER G8 SISTER Congestive heart failure 19 FATHER 19 MOTHER Family history: Arthritis 19 FATHER 19 MOTHER G8 BROTHER G8 BROTHER G8 SISTER G8 SISTER DAUGHTER SON Family history: Breast disease DAUGHTER Family history: Cardiovascular disease 19 FATHER Family history: Diabetes mellitus 19 FATHER G8 BROTHER G8 SISTER Family history: Hypertension 19 FATHER 19 MOTHER G8 BROTHER G8 BROTHER G8 SISTER G8 SISTER DAUGHTER SON Family history: Thyroid disorder DAUGHTER Heart disease 19 FATHER 19 MOTHER G8 BROTHER Hypercholesterolemia 19 FATHER 19 MOTHER G8 BROTHER G8 BROTHER G8 SISTER Myocardial infarction 19 FATHER 19 MOTHER G8 BROTHER No Family History of: Abdominal aortic aneurysm Natick's disease Alcoholism Aphasia Cancer of colon Chest pain Congenital heart disease Cystic fibrosis Dementia Dysphagia Family history: Allergy Family history: Alzheimer's disease Family history: Asthma Family history: Coronary thrombosis Family history: Gastrointestinal disease Family history: Glaucoma Family history: Osteoporosis Headache Hearing loss Hereditary disease History of - anemia History of - disorder History of - respiratory disease History of drug abuse Human immunodeficiency virus (HIV) seropositivity Infertile Kidney disease Malignant neoplasm of lung Parkinson's disease Prostate cancer Psychotic disorder Seizure disorder Stroke Tuberculosis Visual impairment Physical Exam Vital Signs Vital Signs - First Documented 11/05/18 17:47 Temp 97.6 Pulse 151 Resp 18 B/P (MAP) 111/90 (97) Pulse Ox 98 Capillary Refill : Less Than 3 Seconds Height, Weight, BMI Height: 6'0" Weight: 178lbs. 0.0oz. 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 Norm as Tested Reflexes: 0 Ankle (R) Skin: Normal Color, Warm/Dry Progress/Results/Core Measures Suspected Sepsis Recent Fever Within 48 Hours: No Infection Criteria Present: None New/Unexplained Altered Menta: No Sepsis Screen: No Definite Risk SIRS Temperature:97.6 Pulse: 151 Respiratory Rate: 18 Laboratory Tests 11/05/18 18:17: White Blood Count 5.5 Blood Pressure 111 /90 Mean: 97 Laboratory Tests 11/05/18 18:17: Creatinine 1.55H, Platelet Count 287, Total Bilirubin 0.4 Results/Orders Lab Results Laboratory Tests Test 11/05/18 18:17 Range/Units White Blood Count 5.5 4.3-11.0 10^3/uL Red Blood Count 4.65 4.35-5.85 10^6/uL Hemoglobin 12.0 L 13.3-17.7 G/DL Hematocrit 38 L 40-54 % Mean Corpuscular Volume 82 80-99 FL Mean Corpuscular Hemoglobin 26 25-34 PG Mean Corpuscular Hemoglobin Concent 32 32-36 G/DL Red Cell Distribution Width 15.5 H 10.0-14.5 % Platelet Count 287 130-400 10^3/uL Mean Platelet Volume 9.5 7.4-10.4 FL Neutrophils (%) (Auto) 67 42-75 % Lymphocytes (%) (Auto) 24 12-44 % Monocytes (%) (Auto) 8 0-12 % Eosinophils (%) (Auto) 1 0-10 % Basophils (%) (Auto) 1 0-10 % Neutrophils # (Auto) 3.7 1.8-7.8 X 10^3 Lymphocytes # (Auto) 1.3 1.0-4.0 X 10^3 Monocytes # (Auto) 0.4 0.0-1.0 X 10^3 Eosinophils # (Auto) 0.0 0.0-0.3 10^3/uL Basophils # (Auto) 0.0 0.0-0.1 10^3/uL Sodium Level 141 135-145 MMOL/L Potassium Level 3.7 3.6-5.0 MMOL/L Chloride Level 112 H 98-107 MMOL/L Carbon Dioxide Level 17 L 21-32 MMOL/L Anion Gap 12 5-14 MMOL/L Blood Urea Nitrogen 16 7-18 MG/DL Creatinine 1.55 H 0.60-1.30 MG/DL Estimat Glomerular Filtration Rate 44 BUN/Creatinine Ratio 10 Glucose Level 239 H 70-105 MG/DL Calcium Level 9.5 8.5-10.1 MG/DL Corrected Calcium 9.3 8.5-10.1 MG/DL Magnesium Level 2.0 1.8-2.4 MG/DL Total Bilirubin 0.4 0.1-1.0 MG/DL Aspartate Amino Transf (AST/SGOT) 11 5-34 U/L Alanine Aminotransferase (ALT/SGPT) 12 0-55 U/L Alkaline Phosphatase 68 40-136 U/L Total Protein 7.3 6.4-8.2 GM/DL Albumin 4.2 3.2-4.5 GM/DL Digoxin Level < 0.30 L 0.80-2.00 NG/ML My Orders Orders - RODOLFO CUELLO MD Cbc With Automated Diff (11/05/18 18:10) Comprehensive Metabolic Panel (11/05/18 18:10) Ed Iv/Invasive Line Start (11/05/18 18:10) Ns Iv 1000 Ml (Sodium Chloride 0.9%) (11/05/18 18:10) Ekg Tracing (11/05/18 18:10) Monitor-Rhythm Ecg Trace Only (11/05/18 18:10) Digoxin (11/05/18 18:17) Magnesium (11/05/18 18:17) Lactated Ringers (Lr 1000 Ml Iv Solution (11/05/18 19:01) Medications Given in ED Current Medications Medications Dose Ordered Sig/Alka Route Start Time Stop Time Status Last Admin Dose Admin Lactated Ringer's 1,000 ml @ 0 mls/hr Q0M ONCE IV 11/05/18 19:01 11/05/18 19:02 DC 11/05/18 19:45 1,000 MLS/HR Sodium Chloride 1,000 ml @ 0 mls/hr Q0M ONCE IV 11/05/18 18:10 11/05/18 18:12 DC 11/05/18 19:10 1,000 MLS/HR Vital Signs/I&O 11/05/18 20:48 Temp 97.6 Pulse 151 Resp 18 B/P (MAP) 111/90 (97) Pulse Ox 98 Capillary Refill : Less Than 3 Seconds Blood Pressure Mean: 97 Progress Note : Progress Note Patient's heart rate dropped down into the 80s after 1 L of IV fluid. He was in sinus rhythm. His initial rhythm could have been atrial flutter or extreme sinus tachycardia. The EKG machine read it as a wide complex tachycardia which does not seem correct by my interpretation. Orthostatic measurements were negative. Case was discussed with Dr. Olivares who recommended the patient be admitted for observation and for review of medications by Dr. Stiles. Patient declined admission stating he had a very important business meeting in the morning he could not miss. He elected to leave AGAINST MEDICAL ADVICE. ECG Initial ECG Impression Date: Nov 05, 2018 Initial ECG Impression Time: 18:26 Initial ECG Rate: 154 Initial ECG Rhythm: S.Tach Comment Regular tachycardic rhythm, possibly extreme sinus tachycardia versus atrial flutter. Departure Impression Primary Impression: Diarrhea Qualified Codes: R19.7 - Diarrhea, unspecified Additional Impression: Tachycardia Disposition: 07 AGAINST MEDICAL ADVICE Condition: Improved Departure-Patient Inst. Referrals: IRAJ HERRERA MD (PCP) Primary Care Physician Copy Copies To 1: BISI STILES MD Copies To 2: IRAJ HERRERA MD, JOSHUA T MD Nov 06, 2018 06:10
== END 2018-11-05 20:48 | disposition left against medical advice (07) ==
LOC: EDUNIT# 17:35 → ER 17:36
DX: R19.7 Diarrhea, unspecified (principal); R00.0 Tachycardia, unspecified; I48.91 Unspecified atrial fibrillation; J44.9 Chronic obstructive pulmonary disease, unspecified; G47.30 Sleep apnea, unspecified; I25.10 Atherosclerotic heart disease of native coronary artery without angina pectoris; I25.2 Old myocardial infarction; E78.00 Pure hypercholesterolemia, unspecified; I10 Essential (primary) hypertension; E11.51 Type 2 diabetes mellitus with diabetic peripheral angiopathy without gangrene; F41.9 Anxiety disorder, unspecified; N40.0 Benign prostatic hyperplasia without lower urinary tract symptoms; Z86.73 Personal history of transient ischemic attack (TIA), and cerebral infarction without residual deficits; Z88.1 Allergy status to other antibiotic agents; Z88.5 Allergy status to narcotic agent; Z88.0 Allergy status to penicillin; Z88.8 Allergy status to other drugs, medicaments and biological substances; Z79.4 Long term (current) use of insulin; Z87.891 Personal history of nicotine dependence; Z95.1 Presence of aortocoronary bypass graft; Z87.19 Personal history of other diseases of the digestive system; Z82.49 Family history of ischemic heart disease and other diseases of the circulatory system
CPT/HCPCS: 36415; 80053; 80162; 83735; 85025; 93005; 93041; 96360

== ENCOUNTER 2018-11-08 14:45 | Emergency (ER) | payer MEDICARE ==
[~2018-11-08] VITALS: Ht 182.9 cm; Wt 80.7 kg
--- OUTSIDE RECORDS SUMMARY | 2018-11-08 14:52 | XMS REPORT | Clinical Summary ---
Author Author [facility] Organization [facility] Address Unknown Phone Unavailable Care Team Providers Care Security Supervisor Name Role Phone Chance Ward PCP Source Comments Some departments are not documenting in the electronic medical record. If you d o not see the information that you expected, contact Release of Information in [facility] [employer] Information Management department at [phone] for further assistan ce in locating additional records.[facility] Allergies Not on File Medications End [...] Problem Noted Date Coronary artery disease involving [place] coronary artery 10/24/2016 Overview: 2000 CABG x 4 02/17/12 PTCA BMS to vein graft to the OM 03/02/16 severe in-stent restenosis in the SVG to the OM with successful PCI, no residual stenosis, patent VG to RCA VG to the diag artery and AMANDA to the LAD occluded [place] vessels proximally, small vessel disease distally 09/25/16 [facility] - severe [place] disease, patent graft to RCA, diagonal LAD, [...] Years Used Quit: 10/25/1999 Former Smoker 3 Drinks/Week oz/Week Comments Alcohol Use No Sex Assigned at Date Recorded Not on file Industry Job Start Date Occupation Not on file Not on file Not on file Travel End Travel History Travel Start No recent travel history available. 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
[2018-11-08] MEDS ORDERED: meTOprolol 5 MG/5 ML (LOPRESSOR) VIAL IV ONE (15:15)
[2018-11-08] MEDS ORDERED: meTOproloL SUCCINATE 50 MG (TOPROL XL) TAB PO SCH (15:15)
[2018-11-08 15:17] LABS: BASOPHILS % (AUTO) 1 % (0-10); EOSINOPHILS # (AUTO) 0.1 10^3/uL (0.0-0.3); EOSINOPHILS % (AUTO) 1 % (0-10); HEMATOCRIT 37 % (40-54); HEMOGLOBIN 11.8 G/DL (13.3-17.7); LYMPHOCYTES # (AUTO) 1.4 X 10^3 (1.0-4.0); LYMPHOCYTES % (AUTO) 25 % (12-44); MEAN CORPUSCULAR HEMOGLOBIN 26 PG (25-34); MEAN CORPUSCULAR HGB CONC 32 G/DL (32-36); MEAN CORPUSCULAR VOLUME 81 FL (80-99); MEAN PLATELET VOLUME 9.8 FL (7.4-10.4); MONOCYTES # (AUTO) 0.4 X 10^3 (0.0-1.0); MONOCYTES % (AUTO) 6 % (0-12); NEUTROPHILS # (AUTO) 3.9 X 10^3 (1.8-7.8); NEUTROPHILS % (AUTO) 68 % (42-75); PLATELET COUNT 313 10^3/uL (130-400); RED CELL DISTRIBUTION WIDTH 15.4 % (10.0-14.5); WHITE BLOOD COUNT 5.8 10^3/uL (4.3-11.0)
--- NOTE | 2018-11-08 15:26 | ED Cardiac General ---
History of Present Illness General Chief Complaint: Cardiac/General Problems Stated Complaint: A-FIB Nursing Triage Note: PT BROUGHT IN BY EMS WITH COMPLAINT OF AFIB. PT HAS HX OF AFIB, CONTROLLED WITH DIGOXIN, STATES PRIOR TO CALLING EMS, PT BEGAN TO FEEL HEART JUMPING, WEAKNESS, SOA, AND FULL EARS. PT WAS SINUS TACH FOR EMS ON ARRIVAL. DENIES CHEST PAIN. Source: patient Exam Limitations: no limitations (SHASHANK VILLALBA MEDICAL STUDENT) History of Present Illness Date Seen by Provider: Nov 08, 2018 Time Seen by Provider: 03:00 Initial Comments Pt presents to ED by EMS after experiencing racing heart and palpitations x1hr. He reports that four days ago he stopped his new A-fib medication, [place]z, due to an allergic reaction that made him itchy. He then restarted his old A-fib medication, Digoxin. Pt is no longer having palpitations or SOB, but his heart is still racing. Denies chest pain. Admits to new onset diarrhea since coming to the ED. Pt sees Dr. Stiles for his care. Timing/Duration: 1 hour Severity: moderate Activities at Onset: none Associated Systoms: No Chest Pain; Shortness of Air (SHASHANK VILLALBA MEDICAL STUDENT) Prior CP/Workup: cardiac cath, echocardiography, stress test Modifying Factors: improves with rest NTG SL MEDICAL SERVICES MANAGER: No ASA po MEDICAL SERVICES MANAGER: No (CHARO SCHNEIDER MD) Allergies and Home Medications Allergies Coded Allergies: celecoxib (Unverified Allergy, Mild, TAKES ASPIRIN AT HOME, 12/21/14) diclofenac (Unverified Allergy, Mild, TAKES ASPIRIN AT HOME, 12/21/14) naproxen (Unverified Allergy, Mild, TAKES ASPIRIN AT HOME, 12/21/14) rosuvastatin (Unverified Allergy, Mild, 08/14/08) Penicillins (Verified Allergy, Unknown, 08/03/05) amoxicillin (Verified Allergy, Unknown, 08/03/05) fenofibrate (Unverified Allergy, Unknown, 06/05/16) simvastatin (Unverified Allergy, Unknown, 06/05/16) Uncoded Allergies: GEMIFIBOROZIL (Allergy, Unknown, 06/05/16) Home Medications Amiodarone HCl 200 Mg Tablet, 200 MG PO BID, (Reported) Apixaban 5 Mg Tablet, 5 MG PO BID, (Reported) Baclofen 10 Mg Tablet, 10 MG PO TID PRN for MUSCLE SPASMS, (Reported) Benzonatate 100 Mg Capsule, 100 MG PO Q8H Prescribed by: JOSEE REICH on 01/13/182257 Digoxin 125 Mcg Tablet, 125 MCG PO DAILY, (Reported) Fenofibrate,Micronized 134 Mg Capsule, 134 MG PO DAILY, (Reported) Gabapentin 300 Mg Capsule, 600 MG PO HS, (Reported) TAKES 2 (300 MG) CAPSULES Hyoscyamine Sulfate 0.125 Mg Tab.subl, 1-2 TAB SL Q4H Prescribed by: ROMAIN KNIGHT on 07/31/18 0411 Insulin Detemir 100 Unit/1 Ml Insuln.pen, 25 UNIT SQ BID, (Reported) Metoclopramide HCl 5 Mg Tab.rapdis, 5 MG PO ACHS, (Reported) Nitroglycerin 0.4 Mg Tab.subl, 0.4 MG SL UD PRN for CHEST PAIN, (Reported) MAX OF 3 TABS IN 15 MINUTES / CALL 911 IF PAIN REMAINS AFTER 5 MINUTES Pantoprazole Sodium 40 Mg Tablet.dr, 40 MG PO DAILY Prescribed by: RODOLFO GODWIN on 07/24/18 1843 Pentoxifylline 400 Mg Tablet.er, 400 MG PO BID, (Reported) Pravastatin Sodium 80 Mg Tablet, 80 MG PO HS, (Reported) Tamsulosin HCl 0.4 Mg Cap.er.24h, 0.4 MG PO DAILY, (Reported) Trazodone HCl 50 Mg Tablet, 50 MG PO HS, (Reported) Patient Home Medication List Home Medication List Reviewed: Yes (SHASHANK VILLALBA MEDICAL STUDENT) Home Medication List Reviewed: Yes (CHARO SCHNEIDER MD) Review of Systems Review of Systems Constitutional: weakness EENTM: Other (ear fullness) Respiratory: No Symptoms Reported Cardiovascular: Denies Chest Pain; Irregular Heart Rate, Palpitations Gastrointestinal: Diarrhea Genitourinary: No Symptoms Reported Musculoskeletal: no symptoms reported Skin: no symptoms reported Psychiatric/Neurological: No Symptoms Reported Endocrine: No Symptoms Reported Hematologic/Lymphatic: No Symptoms Reported (SHASHANK VILLALBA MEDICAL STUDENT) All Other Systems Reviewed Negative Unless Noted: Yes (CHARO SCHNEIDER MD) Past Xrraqvn-[id number]-Znbbgd Hx Past Med/Social Hx: Reviewed Nursing Past Med/Soc Hx (CHARO SCHNEIDER MD) Patient Social History Alcohol Use: Denies Use Number of Drinks Today: AA Alcohol Beverage of Choice: Beer Recreational Drug Use: No Smoking Status: Former Smoker Type Used: Cigarettes Former Smoker, Quit: Apr 12, 2000 2nd Hand Smoke Exposure: No Recent Foreign Travel: No Contact w/Someone Who Travel: No Recent Infectious Disease Expo: No Recent Hopitalizations: No (SHASAHNK VILLALBA MEDICAL STUDENT) Immunizations Up To Date Tetanus Booster (TDap): Less than 5yrs PED Vaccines UTD: No Date of Pneumonia Vaccine: Mar 08, 2018 Date of Influenza Vaccine: Mar 08, 2018 (SHASHANK VILLALBA MEDICAL STUDENT) Seasonal Allergies Seasonal Allergies: No (SHASHANK VILLALBA MEDICAL STUDENT) Past Medical History Surgeries: Yes (LUMBAR LAMINECTOMY) Abdominal, Angioplasty, Cardiac, CABG, Coronary Stent, Eye Surgery, Gallbladder, Joint Replacement, Open Heart Surgery, Orthopedic, Vascular Surgery Respiratory: Yes (CHRONIC DYSPNEA ON EXERTION) Sleep Apnea, COPD Currently Using CPAP: No Currently Using BIPAP: No Cardiac: Yes Atrial Fibrillation, Chronic Edema/Swelling, Coronary Artery Disease, Heart Attack, High Cholesterol, Hypertension, Peripheral Vascular Neurological: Yes (POSSIBLE STROKE/ TIA) Stroke, TIA Reproductive Disorders: No Sexually Transmitted Disease: No HIV/AIDS: No Genitourinary: Yes (RENAL INSUFFICIENCY) Benign Prostatic Hyperpl, Prostate Problems, Renal Failure Gastrointestinal: Yes (GASTROPARESIS) Abdominal Hernia, Gastroesophageal Reflux, Chronic Constipation, Diverticulosis, Pancreatitis, Polyps, Gall Bladder Disease Musculoskeletal: Yes (OLECRANON BURSITIS, CHRONIC NECK PAIN, DISH SYNDROME) Degenerate Disk Disease, Arthritis, Chronic Back Pain Endocrine: Yes Diabetes, Insulin dep HEENT: Yes Cataract Loss of Vision: Denies Hearing Impairment: Denies Cancer: No Psychosocial: Yes Anxiety Integumentary: No Blood Disorders: No Adverse Reaction/Blood Tranf: No (SHASHANK VILLALBA MEDICAL STUDENT) Family Medical History Reviewed Nursing Family Hx (CHARO SCHNEIDER MD) Cancer G8 BROTHER Cataract 19 FATHER 19 MOTHER G8 BROTHER G8 BROTHER G8 SISTER Congestive heart failure 19 FATHER 19 MOTHER Family history: Arthritis 19 FATHER 19 MOTHER G8 BROTHER G8 BROTHER G8 SISTER G8 SISTER DAUGHTER SON Family history: Breast disease DAUGHTER Family history: Cardiovascular disease 19 FATHER Family history: Diabetes mellitus 19 FATHER G8 BROTHER G8 SISTER Family history: Hypertension 19 FATHER 19 MOTHER G8 BROTHER G8 BROTHER G8 SISTER G8 SISTER DAUGHTER SON Family history: Thyroid disorder DAUGHTER Heart disease 19 FATHER 19 MOTHER G8 BROTHER Hypercholesterolemia 19 FATHER 19 MOTHER G8 BROTHER G8 BROTHER G8 SISTER Myocardial infarction 19 FATHER 19 MOTHER G8 BROTHER No Family History of: Abdominal aortic aneurysm [place]'s disease Alcoholism Aphasia Cancer of colon Chest pain Congenital heart disease Cystic fibrosis Dementia Dysphagia Family history: Allergy Family history: Alzheimer's disease Family history: Asthma Family history: Coronary thrombosis Family history: Gastrointestinal disease Family history: Glaucoma Family history: Osteoporosis Headache Hearing loss Hereditary disease History of - anemia History of - disorder History of - respiratory disease History of drug abuse Human immunodeficiency virus (HIV) seropositivity Infertile Kidney disease Malignant neoplasm of lung Parkinson's disease Prostate cancer Psychotic disorder Seizure disorder Stroke Tuberculosis Visual impairment Physical Exam Vital Signs Vital Signs - First Documented 11/08/18 14:45 Pulse 107 Resp 13 B/P (MAP) 168/105 (126) Pulse Ox 99 O2 Delivery Room Air (CHARO SCHNEIDER MD) Vital Signs Capillary Refill : Less Than 3 Seconds (SHASHANK VILLALBA MEDICAL STUDENT) Height, Weight, BMI Height: 6'0" Weight: 178lbs. 0.0oz. [id number]; 26.1 BMI Method:Stated General Appearance: No Apparent Distress, WD/WN HEENT: PERRL/EOMI, Pharynx Normal Neck: Full Range of Motion, Normal Inspection Respiratory: Lungs Clear, No Respiratory Distress Cardiovascular: Systolic Murmur (mitral regurgitation), Tachycardia, Other (regular rhythm) Gastrointestinal: Non Tender, Soft Extremity: Non Tender, No Pedal Edema Neurologic/Psychiatric: Alert, Oriented x3 Skin: Normal Color, Warm/Dry (SHASHANK VILLALBA MEDICAL STUDENT) General Appearance: No Apparent Distress, WD/WN Neck: Full Range of Motion, Normal Inspection Respiratory: Lungs Clear, No Respiratory Distress Cardiovascular: Systolic Murmur (mitral regurgitation), Tachycardia Extremity: Normal Range of Motion, Non Tender, No Pedal Edema Neurologic/Psychiatric: Alert, Oriented x3 Skin: Normal Color, Warm/Dry (CHARO SCHNEIDER MD) Progress/Results/Core Measures Results/Orders Lab Results Laboratory Tests Test 11/08/18 14:53 Range/Units White Blood Count 5.8 4.3-11.0 10^3/uL Red Blood Count 4.57 4.35-5.85 10^6/uL Hemoglobin 11.8 L 13.3-17.7 G/DL Hematocrit 37 L 40-54 % Mean Corpuscular Volume 81 80-99 FL Mean Corpuscular Hemoglobin 26 25-34 PG Mean Corpuscular Hemoglobin Concent 32 32-36 G/DL Red Cell Distribution Width 15.4 H 10.0-14.5 % Platelet Count 313 130-400 10^3/uL Mean Platelet Volume 9.8 7.4-10.4 FL Neutrophils (%) (Auto) 68 42-75 % Lymphocytes (%) (Auto) 25 12-44 % Monocytes (%) (Auto) 6 0-12 % Eosinophils (%) (Auto) 1 0-10 % Basophils (%) (Auto) 1 0-10 % Neutrophils # (Auto) 3.9 1.8-7.8 X 10^3 Lymphocytes # (Auto) 1.4 1.0-4.0 X 10^3 Monocytes # (Auto) 0.4 0.0-1.0 X 10^3 Eosinophils # (Auto) 0.1 0.0-0.3 10^3/uL Basophils # (Auto) 0.0 0.0-0.1 10^3/uL Sodium Level 142 135-145 MMOL/L Potassium Level 3.9 3.6-5.0 MMOL/L Chloride Level 114 H 98-107 MMOL/L Carbon Dioxide Level 21 21-32 MMOL/L Anion Gap 7 5-14 MMOL/L Blood Urea Nitrogen 12 7-18 MG/DL Creatinine 1.55 H 0.60-1.30 MG/DL Estimat Glomerular Filtration Rate 44 BUN/Creatinine Ratio 8 Glucose Level 183 H 70-105 MG/DL Calcium Level 9.9 8.5-10.1 MG/DL Corrected Calcium 9.7 8.5-10.1 MG/DL Total Bilirubin 0.4 0.1-1.0 MG/DL Aspartate Amino Transf (AST/SGOT) 10 5-34 U/L Alanine Aminotransferase (ALT/SGPT) 12 0-55 U/L Alkaline Phosphatase 76 40-136 U/L Troponin I < 0.028 <0.028 NG/ML Total Protein 7.3 6.4-8.2 GM/DL Albumin 4.3 3.2-4.5 GM/DL Digoxin Level 0.37 L 0.80-2.00 NG/ML (CHARO SCHNEIDER MD) My Orders Orders - CHARO SCHNEIDER MD Metoprolol Succinate (Xl) Tab (Toprol Xl (11/08/18 15:15) Metoprolol Tartrate Injection (Lopressor (11/08/18 15:15) Cbc With Automated Diff (11/08/18 15:04) Comprehensive Metabolic Panel (11/08/18 15:04) Digoxin (11/08/18 15:04) Troponin I (11/08/18 15:04) Ekg Tracing (11/08/18 15:08) (CHARO SCHNEIDER MD) Medications Given in ED Current Medications Medications Dose Ordered Sig/Alka Route Start Time Stop Time Status Last Admin Dose Admin Metoprolol Tartrate 5 mg ONCE ONCE IV 11/08/18 15:15 11/08/18 15:16 DC 11/08/18 15:39 5 MG (CHARO SCHNEIDER MD) Vital Signs/I&O 11/08/18 14:45 Pulse 107 Resp 13 B/P (MAP) 168/105 (126) Pulse Ox 99 O2 Delivery Room Air (CHARO SCHNEIDER MD) Blood Pressure Mean: 126 Progress Progress Note : Progress Note Seen and evaluated the patient and agree with above except as indicated. Have directed the plan of care. Patient is here with tachycardia palpitations this morning that has improved when EMS was called. Noted to be in sinus tachycardia for EMS. Blood pressure elevated but not excessive and common for him. Lungs are clear to auscultation bilateral. Heart is regular but tachycardia and rate with systolic murmur. Abdomen is soft and nontender. Plan is for IV Lopressor 5 mg and Toprol-XL 50 mg by mouth. We will check labs and digoxin level as he recent ly stopped his multac and restarted digoxin. 1645: Digoxin level low. I did discuss the case with Dr. Stiles. He is reviewed his chart from clinic. He has failed multiple other medications and is excluded from procainamide etc. due to unstable angina. We will initiate Cardizem CD 120 mg daily and continue digoxin. He was this or admission and patient would prefer outpatient attempt at oral medications. Heart rate has resolved nicely currently and is in the 70s and sinus. Discharged home with return precautions. Patient and family verbalize understanding instructions and agreement with plan. (CHARO SCHNEIDER MD) Initial ECG Impression Date: Nov 08, 2018 Initial ECG Impression Time: 14:56 Initial ECG Rate: 103 Initial ECG Rhythm: S.Tach Comment Sinus tachycardia with left axis deviation. No evidence of ST elevation HI. Similar to previous but more left axis than 10/27/18. Interpreted by me. (CHARO SCHNEIDER MD) Departure Impression Primary Impression: Atrial fibrillation Qualified Codes: I48.0 - Paroxysmal atrial fibrillation Disposition: 01 HOME, SELF-CARE Condition: Improved Departure-Patient Inst. Decision time for Depature: 17:02 (CHARO SCHNEIDER MD) Referrals: IRAJ HERRERA MD (PCP/Family) Primary Care Physician Patient Instructions: Paroxysmal Supraventricular Tachycardia (DC) Add. Discharge Instructions: All discharge instructions reviewed with patient and/or family. Voiced underst anding. You will start taking the Cardizem tonight and continue nightly. Continue digoxin each morning. Follow-up with Dr. Castillo next week for recheck and further evaluation. Return for worse pain, fever, vomiting, weakness, rhythm problems, uncontrolled heart rate or other concerns as needed. Scripts Diltiazem HCl (Cartia Xt) 120 Mg Cap.er.24h 120 MG PO DAILY, #30 CAP Prov: CHARO SCHNEIDER MD 11/08/18 Copy Copies To 1: Daniel CASTILLO MD Copies To 2: BISI STILES MD, KAT MEDICAL STUDENT Nov 08, 2018 15:26 CHARO SCHNEIDER MD Nov 08, 2018 17:02
[2018-11-08 15:28] LABS: ALANINE AMINOTRANSFERASE 12 U/L (0-55); ALBUMIN 4.3 GM/DL (3.2-4.5); ALKALINE PHOSPHATASE 76 U/L (40-136); BILIRUBIN,TOTAL 0.4 MG/DL (0.1-1.0); BUN/CREATININE RATIO 8; CALCIUM 9.9 MG/DL (8.5-10.1); CARBON DIOXIDE 21 MMOL/L (21-32); CHLORIDE 114 MMOL/L (98-107); CREATININE SERUM 1.55 MG/DL (0.60-1.30); GFR ESTIMATED 44; GLUCOSE 183 MG/DL (70-105); POTASSIUM 3.9 MMOL/L (3.6-5.0); SODIUM 142 MMOL/L (135-145); TOTAL PROTEIN 7.3 GM/DL (6.4-8.2)
--- NOTE | 2018-11-08 17:02 | Consultation-Cardiology ---
HPI-Cardiology Cardiology Consultation Date of Consultation 11/08/18 Date of Admission Time Seen by Provider: 16:56 Indication: atrial fibrillation with ventricular response HPI 78 years old gentleman with history of paroxysmal atrial fibrillation/flutter, coronary artery disease, chest pain, has been having multiple episode of atrial fibrillation, he was started on Multaq and unable to tolerate the medication due to diarrhea. Previously was unable to tolerate amiodarone. Came into the emergency room by ambulance for episode of atrial fibrillation with a heart rate around 200, currently heart rate is back to normal with sinus rhythm. Denied any active chest pain but has been having episodes of chest pain. Denied any syncope or near syncopal episodes. Denied any claudications. Home Medications & Allergies Allergies: Coded Allergies: celecoxib (Unverified Allergy, Mild, TAKES ASPIRIN AT HOME, 12/21/14) diclofenac (Unverified Allergy, Mild, TAKES ASPIRIN AT HOME, 12/21/14) naproxen (Unverified Allergy, Mild, TAKES ASPIRIN AT HOME, 12/21/14) rosuvastatin (Unverified Allergy, Mild, 08/14/08) Penicillins (Verified Allergy, Unknown, 08/03/05) amoxicillin (Verified Allergy, Unknown, 08/03/05) fenofibrate (Unverified Allergy, Unknown, 06/05/16) simvastatin (Unverified Allergy, Unknown, 06/05/16) Uncoded Allergies: GEMIFIBOROZIL (Allergy, Unknown, 06/05/16) Home Medication List Reviewed: Yes [id number]-[id number]-Ojvspn Hx Patient Social History Marital Status: Employed/Student: retired Alcohol Use: Denies Use Recreational Drug Use: No Smoking Status: Former Smoker Former smoker/When Quit: May 31, 1999 Type Used: Cigarettes 2nd Hand Smoke Exposure: No Recent Foreign Travel: No Recent Infectious Disease Expo: No Recent Hopitalizations: No Immunizations Up To Date Tetanus Booster (TDap): Less than 5yrs Date of Pneumonia Vaccine: Mar 08, 2018 Date of Influenza Vaccine: Mar 08, 2018 Past Medical History Discussed below Family Medical History Family History: Cancer G8 BROTHER Cataract 19 FATHER 19 MOTHER G8 BROTHER G8 BROTHER G8 SISTER Congestive heart failure 19 FATHER 19 MOTHER Family history: Arthritis 19 FATHER 19 MOTHER G8 BROTHER G8 BROTHER G8 SISTER G8 SISTER DAUGHTER SON Family history: Breast disease DAUGHTER Family history: Cardiovascular disease 19 FATHER Family history: Diabetes mellitus 19 FATHER G8 BROTHER G8 SISTER Family history: Hypertension 19 FATHER 19 MOTHER G8 BROTHER G8 BROTHER G8 SISTER G8 SISTER DAUGHTER SON Family history: Thyroid disorder DAUGHTER Heart disease 19 FATHER 19 MOTHER G8 BROTHER Hypercholesterolemia 19 FATHER 19 MOTHER G8 BROTHER G8 BROTHER G8 SISTER Myocardial infarction 19 FATHER 19 MOTHER G8 BROTHER No Family History of: Abdominal aortic aneurysm [place]'s disease Alcoholism Aphasia Cancer of colon Chest pain Congenital heart disease Cystic fibrosis Dementia Dysphagia Family history: Allergy Family history: Alzheimer's disease Family history: Asthma Family history: Coronary thrombosis Family history: Gastrointestinal disease Family history: Glaucoma Family history: Osteoporosis Headache Hearing loss Hereditary disease History of - anemia History of - disorder History of - respiratory disease History of drug abuse Human immunodeficiency virus (HIV) seropositivity Infertile Kidney disease Malignant neoplasm of lung Parkinson's disease Prostate cancer Psychotic disorder Seizure disorder Stroke Tuberculosis Visual impairment Review of Systems-General Review of Systems Constitutional: see HPI, malaise, weakness EENTM: see HPI, no symptoms reported Respiratory: see HPI; No cough; dyspnea on exertion; No hemoptysis, No orthopnea, No phlegm, No short of breath, No stridor, No wheezing, No other Cardiovascular: see HPI, chest pain; No edema, No Hx of Intervention; palpitations; No syncope, No vascular heart diseas, No other Gastrointestinal: no symptoms reported, see HPI Genitourinary: no symptoms reported, see HPI Musculoskeletal: no symptoms reported, see HPI Skin: no symptoms reported, see HPI Psychiatric/Neurological: No Symptoms Reported, See HPI Reviewed Test Results Reviewed Test Results Lab Laboratory Tests Test 11/08/18 14:53 Range/Units White Blood Count 5.8 4.3-11.0 10^3/uL Red Blood Count 4.57 4.35-5.85 10^6/uL Hemoglobin 11.8 L 13.3-17.7 G/DL Hematocrit 37 L 40-54 % Mean Corpuscular Volume 81 80-99 FL Mean Corpuscular Hemoglobin 26 25-34 PG Mean Corpuscular Hemoglobin Concent 32 32-36 G/DL Red Cell Distribution Width 15.4 H 10.0-14.5 % Platelet Count 313 130-400 10^3/uL Mean Platelet Volume 9.8 7.4-10.4 FL Neutrophils (%) (Auto) 68 42-75 % Lymphocytes (%) (Auto) 25 12-44 % Monocytes (%) (Auto) 6 0-12 % Eosinophils (%) (Auto) 1 0-10 % Basophils (%) (Auto) 1 0-10 % Neutrophils # (Auto) 3.9 1.8-7.8 X 10^3 Lymphocytes # (Auto) 1.4 1.0-4.0 X 10^3 Monocytes # (Auto) 0.4 0.0-1.0 X 10^3 Eosinophils # (Auto) 0.1 0.0-0.3 10^3/uL Basophils # (Auto) 0.0 0.0-0.1 10^3/uL Sodium Level 142 135-145 MMOL/L Potassium Level 3.9 3.6-5.0 MMOL/L Chloride Level 114 H 98-107 MMOL/L Carbon Dioxide Level 21 21-32 MMOL/L Anion Gap 7 5-14 MMOL/L Blood Urea Nitrogen 12 7-18 MG/DL Creatinine 1.55 H 0.60-1.30 MG/DL Estimat Glomerular Filtration Rate 44 BUN/Creatinine Ratio 8 Glucose Level 183 H 70-105 MG/DL Calcium Level 9.9 8.5-10.1 MG/DL Corrected Calcium 9.7 8.5-10.1 MG/DL Total Bilirubin 0.4 0.1-1.0 MG/DL Aspartate Amino Transf (AST/SGOT) 10 5-34 U/L Alanine Aminotransferase (ALT/SGPT) 12 0-55 U/L Alkaline Phosphatase 76 40-136 U/L Troponin I < 0.028 <0.028 NG/ML Total Protein 7.3 6.4-8.2 GM/DL Albumin 4.3 3.2-4.5 GM/DL Digoxin Level 0.37 L 0.80-2.00 NG/ML Physical Exam Physical Exam Vital Signs Vital Signs - First Documented 11/08/18 14:45 Pulse 107 Resp 13 B/P (MAP) 168/105 (126) Pulse Ox 99 O2 Delivery Room Air Capillary Refill : Less Than 3 Seconds Height, Weight, BMI Height: 6'0" Weight: 178lbs. 0.0oz. [id number]; 26.1 BMI Method:Stated General Appearance: No Apparent Distress, WD/WN Eyes: Bilateral Eye Normal Inspection, Bilateral Eye PERRL, Bilateral Eye EOMI HEENT: PERRL/EOMI, Pharynx Normal Neck: Full Range of Motion, Normal Inspection Respiratory: Lungs Clear, Normal Breath Sounds, No Respiratory Distress Cardiovascular: Regular Rate, Rhythm, No Edema, No JVD, Normal Peripheral Pulses, Systolic Murmur (mitral regurgitation), Tachycardia, Other (regular rhythm) Gastrointestinal: Non Tender, Soft Back: Normal Inspection, No CVA Tenderness, No Vertebral Tenderness Extremity: Non Tender, No Pedal Edema Neurologic/Psychiatric: Alert, Oriented x3 Skin: Normal Color, Warm/Dry Lymphatic: No Adenopathy A/P-Cardiology Admission Diagnosis Paroxysmal atrial flutter with tachycardia Chest pain Coronary artery disease Hypertension Hyperlipidemia Assessment/Plan Paroxysmal atrial flutter, history of Linq implant, has been maintained on digoxin and Eliquis. Had multiple breakthrough atrial flutter, has seen Dr. Grover and Treva in the past, was intolerant to amiodarone, cannot tolerate class IC antiarrhythmic medication due to unstable angina. I discussed with him the use of sotalol and admitting him to the hospital patient preferred to be treated as an outpatient. I'll start him on Cardizem in addition to the digoxin and Eliquis and follow him as an outpatient and refer him back for EP evaluation and possible ablation Chest pain, recurrent episode of chest pain with tachycardia, he was scheduled for stress test earlier this week and did not show up for the test. We will try to reschedule it in the future Coronary artery disease, multiple cardiac catheterization in the past, last cardiac catheterization September 2016 showing severe [place] disease with patent vein graft to the right coronary artery, diagonal artery, LAD and occluded vein graft to the obtuse marginal branch which is probably the reason of his chest pain. Medical therapy is recommended Intolerance to Brilinta causing increased dyspnea Sinus node dysfunction with episode of bradycardia. Intolerant to beta blockers, intolerant to amiodarone. History of mild carotid stenosis Hypertension with episode of hypotension and dizziness and syncope. Monitor blood pressure Hyperlipidemia, monitor lipids Peripheral arterial disease Degenerative joint disease Diabetes mellitus History of pancreatitis BISI GARCIA MD Nov 08, 2018 17:02
[2018-11-08] MEDS ORDERED: DILT120C53 PO (17:04)
[2018-11-08 17:11] VITALS: BP 133/95
== END 2018-11-08 17:13 | disposition home or self-care (01) ==
LOC: EDUNIT# 14:45 → ER 14:48
DX: I48.91 Unspecified atrial fibrillation (principal); J44.9 Chronic obstructive pulmonary disease, unspecified; G47.30 Sleep apnea, unspecified; I25.10 Atherosclerotic heart disease of native coronary artery without angina pectoris; I10 Essential (primary) hypertension; I25.2 Old myocardial infarction; E78.00 Pure hypercholesterolemia, unspecified; E11.51 Type 2 diabetes mellitus with diabetic peripheral angiopathy without gangrene; E11.43 Type 2 diabetes mellitus with diabetic autonomic (poly)neuropathy; K31.84 Gastroparesis; N40.0 Benign prostatic hyperplasia without lower urinary tract symptoms; K21.9 Gastro-esophageal reflux disease without esophagitis; F41.9 Anxiety disorder, unspecified; Z86.010 Personal history of colon polyps; Z87.19 Personal history of other diseases of the digestive system; Z86.73 Personal history of transient ischemic attack (TIA), and cerebral infarction without residual deficits; Z88.5 Allergy status to narcotic agent; Z88.0 Allergy status to penicillin; Z88.8 Allergy status to other drugs, medicaments and biological substances; Z79.4 Long term (current) use of insulin; Z87.891 Personal history of nicotine dependence; Z95.1 Presence of aortocoronary bypass graft; Z95.5 Presence of coronary angioplasty implant and graft; Z82.49 Family history of ischemic heart disease and other diseases of the circulatory system
CPT/HCPCS: 36415; 80053; 80162; 84484; 85025; 93005

== ENCOUNTER 2018-11-09 04:55 | Emergency (ER) | payer MEDICARE ==
[~2018-11-09] VITALS: Ht 182.9 cm; Wt 80.7 kg
[~2018-11-09 04:55] MED LIST changes: +DILT120C53 PO
[2018-11-09] MEDS ORDERED: ASPIRIN 81 MG CHEW (CHILDREN'S ASA) PO ONE (05:00)
[2018-11-09 05:11] LABS: BASOPHILS % (AUTO) 1 % (0-10); EOSINOPHILS # (AUTO) 0.2 10^3/uL (0.0-0.3); EOSINOPHILS % (AUTO) 2 % (0-10); HEMATOCRIT 36 % (40-54); HEMOGLOBIN 11.4 G/DL (13.3-17.7); LYMPHOCYTES # (AUTO) 1.6 X 10^3 (1.0-4.0); LYMPHOCYTES % (AUTO) 25 % (12-44); MEAN CORPUSCULAR HEMOGLOBIN 26 PG (25-34); MEAN CORPUSCULAR HGB CONC 32 G/DL (32-36); MEAN CORPUSCULAR VOLUME 82 FL (80-99); MEAN PLATELET VOLUME 9.9 FL (7.4-10.4); MONOCYTES # (AUTO) 0.6 X 10^3 (0.0-1.0); MONOCYTES % (AUTO) 9 % (0-12); NEUTROPHILS % (AUTO) 63 % (42-75); PLATELET COUNT 299 10^3/uL (130-400); RED CELL DISTRIBUTION WIDTH 15.3 % (10.0-14.5); WHITE BLOOD COUNT 6.3 10^3/uL (4.3-11.0)
--- NOTE | 2018-11-09 05:15 | ED Cardiac General ---
History of Present Illness General Chief Complaint: Chest Pain Stated Complaint: CP & SOB Source: patient, EMS, old records History of Present Illness Date Seen by Provider: Nov 09, 2018 Time Seen by Provider: 04:56 Initial Comments PT ARRIVES VIA EMS FROM HOME CALLED EMS FOR CHEST PAIN AND SHORTNESS OF BREATH STAES HE BEGAN HAVING CHEST PAIN AROUND 0230, LASTED 30 SECONDS OR LESS, THEN STARTED GETTING SHORT OF BREATH--LASTED ABOUT 10 MINUTES THOSE SYMPTOMS HAVE NOT RETURNED, AND WERE COMPLETELY RESOLVED BEFORE HE CALLED EMS PT STATES HE CHECKED HIS BLOOD SUGAR AT 0200 AND IT WAS 60, SO ATE PEANUT BUTTER AND PUT SUGAR IN SOME JUICE, AND RECHECKED BLOOD SUGAR AND IT WAS UP TO 188 AND ALL SYMPTOMS WENT AWAY NO SWEATS NO PALPITATIONS NO NAUSEA/VOMITING PT STATES "WHEN MY BLOOD SUGAR GETS BELOW 80, I ALWAYS GET THIS CHEST PAIN AND I GET SHORT OF BREATH" --POINTS TO EPIGASTRIC AREA AREA OF CHEST PAIN STATES THEN HE GETS REAL ANXIOUS AND THEN HE HAS A HARD TIME BREATHING, WHICH GOES AWAY WHEN HE CALMS DOWN PT WITH A MULTITUDE OF VISITS, AND THIS IS HIS 4TH VISIT SINCE 10/27/18 10/27/18--ANGINA SYMPTOMS 11/05/18--DIARRHEA AND HYPOTENSION--FELT TO BE DUE TO STARTING NEW MEDICATION, MULTAQ LAST WEEK. 11/08/18--CHRONIC INTERMITTENT ATRIAL FIBRILLATION. PT IS ALREADY ON DIGOXIN AND ELIQUIS, AND WAS STARTED ON CARTIA XT 120 MG, TOOK A DOSE AT 2200 TONIGHT. SEEN IN ER BY DR. GARCIA--PT REFUSED ADMIT PT WAS SCHEDULED FOR OUTPATIENT STRESS TEST EARLIER THIS WEEK, BUT DID NOT SHOW UP LAST CARDIAC CATH WAS 2016--NO INTERVENTION AT THAT TIME, BUT HAD OCCLUDED GRAFTS FROM PREVIOUS CABG. NONE OF TODAY'S SYMPTOMS ARE NEW OR ANY DIFFERENT THAN HIS CHRONIC ISSUES WITH CHEST PAIN, PAROXYSMAL ATRIAL FIBRILLATION, FREQUENT EPISODES OF HYPOGLYCEMIA. PCP: DR. Kamari HERRERA GENERATION TECHNICIAN: DR. GARCIA Allergies and Home Medications Allergies Coded Allergies: celecoxib (Unverified Allergy, Mild, TAKES ASPIRIN AT HOME, 11/09/18) diclofenac (Unverified Allergy, Mild, TAKES ASPIRIN AT HOME, 11/09/18) naproxen (Unverified Allergy, Mild, TAKES ASPIRIN AT HOME, 11/09/18) rosuvastatin (Unverified Allergy, Mild, 11/09/18) Penicillins (Verified Allergy, Unknown, 11/09/18) amoxicillin (Verified Allergy, Unknown, 11/09/18) fenofibrate (Unverified Allergy, Unknown, 11/09/18) simvastatin (Unverified Allergy, Unknown, 11/09/18) Uncoded Allergies: GEMIFIBOROZIL (Allergy, Unknown, 06/05/16) Home Medications Amiodarone HCl 200 Mg Tablet, 200 MG PO BID, (Reported) Apixaban 5 Mg Tablet, 5 MG PO BID, (Reported) Baclofen 10 Mg Tablet, 10 MG PO TID PRN for MUSCLE SPASMS, (Reported) Benzonatate 100 Mg Capsule, 100 MG PO Q8H Prescribed by: JOSEE REICH on 01/13/18 8398 Digoxin 125 Mcg Tablet, 125 MCG PO DAILY, (Reported) Diltiazem HCl 120 Mg Cap.er.24h, 120 MG PO DAILY Prescribed by: CHARO SCHNEIDER on 11/08/18 1704 Fenofibrate,Micronized 134 Mg Capsule, 134 MG PO DAILY, (Reported) Gabapentin 300 Mg Capsule, 600 MG PO HS, (Reported) TAKES 2 (300 MG) CAPSULES Hyoscyamine Sulfate 0.125 Mg Tab.subl, 1-2 TAB SL Q4H Prescribed by: ROMAIN KNIGHT on 07/31/18 0411 Insulin Detemir 100 Unit/1 Ml Insuln.pen, 25 UNIT SQ BID, (Reported) Metoclopramide HCl 5 Mg Tab.rapdis, 5 MG PO ACHS, (Reported) Nitroglycerin 0.4 Mg Tab.subl, 0.4 MG SL UD PRN for CHEST PAIN, (Reported) MAX OF 3 TABS IN 15 MINUTES / CALL 911 IF PAIN REMAINS AFTER 5 MINUTES Pantoprazole Sodium 40 Mg Tablet.dr, 40 MG PO DAILY Prescribed by: RODOLFO GODWIN on 07/24/18 1843 Pentoxifylline 400 Mg Tablet.er, 400 MG PO BID, (Reported) Pravastatin Sodium 80 Mg Tablet, 80 MG PO HS, (Reported) Tamsulosin HCl 0.4 Mg Cap.er.24h, 0.4 MG PO DAILY, (Reported) Trazodone HCl 50 Mg Tablet, 50 MG PO HS, (Reported) Patient Home Medication List Home Medication List Reviewed: Yes Review of Systems Review of Systems Constitutional: No diaphoresis, No dizziness Respiratory: See HPI; Denies Cough; Shortness of Air Cardiovascular: See HPI, Chest Pain; Denies Edema, Denies Irregular Heart Rate, Denies Lightheadedness, Denies Palpitations, Denies Syncope Gastrointestinal: No Symptoms Reported Musculoskeletal: no symptoms reported Psychiatric/Neurological: No Symptoms Reported Past Wziojct-Wbopxf-Mtbjpb Hx Patient Social History Alcohol Use: Rarely Uses Alcohol Beverage of Choice: Beer Recreational Drug Use: No Smoking Status: Former Smoker (QUIT SMOKING IN 1999) Type Used: Cigarettes Former Smoker, Quit: Apr 12, 2000 2nd Hand Smoke Exposure: No Recent Foreign Travel: No Contact w/Someone Who Travel: No Recent Hopitalizations: No Immunizations Up To Date Tetanus Booster (TDap): Less than 5yrs PED Vaccines UTD: No Date of Pneumonia Vaccine: Mar 08, 2018 Date of Influenza Vaccine: Mar 08, 2018 Seasonal Allergies Seasonal Allergies: No Past Medical History Surgeries: Yes (LUMBAR LAMINECTOMY; CARDIAC CATHS WITH STENTS; CABG; LINQ 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/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) Abdominal, Angioplasty, Cardiac, CABG, Coronary Stent, Eye Surgery, Gallbladder, Joint Replacement, Open Heart Surgery, Orthopedic, Vascular Surgery Respiratory: Yes (CHRONIC DYSPNEA ON EXERTION) Sleep Apnea, COPD Currently Using CPAP: No Currently Using BIPAP: No Cardiac: Yes Atrial Fibrillation, Chronic Edema/Swelling, Coronary Artery Disease, Heart Attack, High Cholesterol, Hypertension, Peripheral Vascular Neurological: Yes (POSSIBLE STROKE/ TIA) Stroke, TIA Reproductive Disorders: No Sexually Transmitted Disease: No HIV/AIDS: No Genitourinary: Yes (RENAL INSUFFICIENCY) Benign Prostatic Hyperpl, Prostate Problems, Renal Failure Gastrointestinal: Yes (GASTROPARESIS) Abdominal Hernia, Gastroesophageal Reflux, Chronic Constipation, Diverticulosis, Pancreatitis, Polyps, Gall Bladder Disease Musculoskeletal: Yes (OLECRANON BURSITIS, CHRONIC NECK PAIN, DISH SYNDROME) Degenerate Disk Disease, Arthritis, Chronic Back Pain Endocrine: Yes Diabetes, Insulin dep HEENT: Yes Cataract Loss of Vision: Denies Hearing Impairment: Denies Cancer: No Psychosocial: Yes Anxiety Integumentary: No Blood Disorders: No Adverse Reaction/Blood Tranf: No Family Medical History Cancer G8 BROTHER Cataract 19 FATHER 19 MOTHER G8 BROTHER G8 BROTHER G8 SISTER Congestive heart failure 19 FATHER 19 MOTHER Family history: Arthritis 19 FATHER 19 MOTHER G8 BROTHER G8 BROTHER G8 SISTER G8 SISTER DAUGHTER SON Family history: Breast disease DAUGHTER Family history: Cardiovascular disease 19 FATHER Family history: Diabetes mellitus 19 FATHER G8 BROTHER G8 SISTER Family history: Hypertension 19 FATHER 19 MOTHER G8 BROTHER G8 BROTHER G8 SISTER G8 SISTER DAUGHTER SON Family history: Thyroid disorder DAUGHTER Heart disease 19 FATHER 19 MOTHER G8 BROTHER Hypercholesterolemia 19 FATHER 19 MOTHER G8 BROTHER G8 BROTHER G8 SISTER Myocardial infarction 19 FATHER 19 MOTHER G8 BROTHER No Family History of: Abdominal aortic aneurysm Robel's disease Alcoholism Aphasia Cancer of colon Chest pain Congenital heart disease Cystic fibrosis Dementia Dysphagia Family history: Allergy Family history: Alzheimer's disease Family history: Asthma Family history: Coronary thrombosis Family history: Gastrointestinal disease Family history: Glaucoma Family history: Osteoporosis Headache Hearing loss Hereditary disease History of - anemia History of - disorder History of - respiratory disease History of drug abuse Human immunodeficiency virus (HIV) seropositivity Infertile Kidney disease Malignant neoplasm of lung Parkinson's disease Prostate cancer Psychotic disorder Seizure disorder Stroke Tuberculosis Visual impairment Physical Exam Vital Signs Vital Signs - First Documented 11/09/18 04:55 Temp 97.6 Pulse 84 Resp 20 B/P (MAP) 167/113 (131) Pulse Ox 100 O2 Delivery Nasal Cannula O2 Flow Rate 3.0 Capillary Refill : Height, Weight, BMI Height: 6'0" Weight: 178lbs. 0.0oz. [id number]; 26.1 BMI Method:Stated General Appearance: No Apparent Distress, WD/WN Respiratory: Normal Breath Sounds, No Accessory Muscle Use, No Respiratory Distress Cardiovascular: Regular Rate, Rhythm, No Edema, No JVD, Systolic Murmur (FAINT) Gastrointestinal: Non Tender, Soft Extremity: Normal Range of Motion, No Calf Tenderness, No Pedal Edema Neurologic/Psychiatric: Alert, Oriented x3, No Motor/Sensory Deficits, Normal Mood/Affect, yardage caller II-XII Norm as Tested Skin: Normal Color, Warm/Dry Progress/Results/Core Measures Results/Orders Lab Results Laboratory Tests Test 11/09/18 05:02 11/09/18 05:04 11/09/18 05:32 11/09/18 05:58 Range/Units White Blood Count 6.3 4.3-11.0 10^3/uL Red Blood Count 4.34 L 4.35-5.85 10^6/uL Hemoglobin 11.4 L 13.3-17.7 G/DL Hematocrit 36 L 40-54 % Mean Corpuscular Volume 82 80-99 FL Mean Corpuscular Hemoglobin 26 25-34 PG Mean Corpuscular Hemoglobin Concent 32 32-36 G/DL Red Cell Distribution Width 15.3 H 10.0-14.5 % Platelet Count 299 130-400 10^3/uL Mean Platelet Volume 9.9 7.4-10.4 FL Neutrophils (%) (Auto) 63 42-75 % Lymphocytes (%) (Auto) 25 12-44 % Monocytes (%) (Auto) 9 0-12 % Eosinophils (%) (Auto) 2 0-10 % Basophils (%) (Auto) 1 0-10 % Neutrophils # (Auto) 4.0 1.8-7.8 X 10^3 Lymphocytes # (Auto) 1.6 1.0-4.0 X 10^3 Monocytes # (Auto) 0.6 0.0-1.0 X 10^3 Eosinophils # (Auto) 0.2 0.0-0.3 10^3/uL Basophils # (Auto) 0.0 0.0-0.1 10^3/uL Prothrombin Time 15.8 H 12.2-14.7 SEC INR Comment 1.2 0.8-1.4 Activated Partial Thromboplast Time 35 24-35 SEC Sodium Level 139 135-145 MMOL/L Potassium Level 3.6 3.6-5.0 MMOL/L Chloride Level 110 H 98-107 MMOL/L Carbon Dioxide Level 20 L 21-32 MMOL/L Anion Gap 9 5-14 MMOL/L Blood Urea Nitrogen 11 7-18 MG/DL Creatinine 1.50 H 0.60-1.30 MG/DL Estimat Glomerular Filtration Rate 46 BUN/Creatinine Ratio 7 Glucose Level 213 H 70-105 MG/DL Calcium Level 9.8 8.5-10.1 MG/DL Corrected Calcium 9.6 8.5-10.1 MG/DL Magnesium Level 2.0 1.8-2.4 MG/DL Total Bilirubin 0.2 0.1-1.0 MG/DL Aspartate Amino Transf (AST/SGOT) 12 5-34 U/L Alanine Aminotransferase (ALT/SGPT) 11 0-55 U/L Alkaline Phosphatase 73 40-136 U/L Myoglobin 119.2 H 10.0-92.0 NG/ML Troponin I < 0.028 <0.028 NG/ML B-Type Natriuretic Peptide 28.4 <100.0 PG/ML Total Protein 7.2 6.4-8.2 GM/DL Albumin 4.2 3.2-4.5 GM/DL Amylase Level 71 25-125 U/L Lipase 107 H 8-78 U/L Digoxin Level < 0.30 L 0.80-2.00 NG/ML Glucometer 209 H 189 H 70-110 MG/DL Urine Color YELLOW Urine Clarity CLEAR Urine pH 6.5 5-9 Urine Specific [place] 1.010 L 1.016-1.022 Urine Protein NEGATIVE NEGATIVE Urine Glucose (UA) 2+ H NEGATIVE Urine Ketones NEGATIVE NEGATIVE Urine Nitrite NEGATIVE NEGATIVE Urine Bilirubin NEGATIVE NEGATIVE Urine Urobilinogen NORMAL NORMAL MG/DL Urine Leukocyte Esterase NEGATIVE NEGATIVE Urine RBC (Auto) NEGATIVE NEGATIVE Urine RBC NONE /HPF Urine WBC NONE /HPF Urine Squamous Epithelial Cells 2-5 /HPF Urine Crystals NONE /LPF Urine Bacteria NEGATIVE /HPF Urine Casts NONE /LPF Urine Mucus SMALL H /LPF Urine Culture Indicated NO My Orders Orders - ROMAIN KNIGHT DO Cbc With Automated Diff (11/09/18 04:57) Magnesium (11/09/18 04:57) Chest 1 View, Ap/Pa Only (11/09/18 04:57) Ekg Tracing (11/09/18 04:57) Cardiac Profile 1 (11/09/18 04:57) Comprehensive Metabolic Panel (11/09/18 04:57) Myoglobin Serum (11/09/18 04:57) Protime With Inr (11/09/18 04:57) Partial Thromboplastin Time (11/09/18 04:57) O2 (11/09/18 04:57) Monitor-Rhythm Ecg Trace Only (11/09/18 04:57) Lipid Panel (11/10/18 06:00) Ed Iv/Invasive Line Start (11/09/18 04:57) Lipase (11/09/18 04:57) Amylase (11/09/18 04:57) BNP (11/09/18 04:57) Aspirin Chewable Tablet (Baby Aspirin Ch (11/09/18 05:00) Digoxin (11/09/18 05:15) Ua Culture If Indicated (11/09/18 05:31) Accucheck Stat ONCE (11/09/18 05:56) Medications Given in ED Current Medications Medications Dose Ordered Sig/Alka Route Start Time Stop Time Status Last Admin Dose Admin Aspirin 324 mg ONCE ONCE PO 11/09/18 05:00 11/09/18 05:01 DC 11/09/18 05:17 324 MG Vital Signs/I&O 11/09/18 11/09/18 11/09/18 04:55 04:55 04:55 Temp 97.6 Pulse 84 Resp 20 B/P (MAP) 167/113 (131) Pulse Ox 100 100 O2 Delivery Nasal Cannula Nasal Cannula Nasal Cannula O2 Flow Rate 3.0 3.00 3.00 Progress Progress Note : Progress Note NO SYMPTOMS OF ANY KIND DURING ENTIRE ER STAY ACCUCHECK 209 ON ARRIVAL 0555--PT WANTS BLOOD SUGAR RECHECKED--189 0600--DISCUSSED WITH DR. SCHNEIDER, WHO CARED FOR THE PT YESTERDAY, AND HE ALSO AGREES THAT PT CAN GO HOME AND FOLLOW UP WITH DR. GARCIA PLANNED Initial ECG Impression Date: Nov 09, 2018 Initial ECG Impression Time: 04:59 Initial ECG Rate: 77 Initial ECG Rhythm: Normal Sinus Diagnostic Imaging Comments CXR--CHRONIC LUNG CHANGES, NO ACUTE PROCESS, PENDING RADIOLOGIST REVIEW Reviewed: Reviewed by Me Departure Impression Primary Impression: BRIEF EPISODE OF CHEST PAIN AND SHORTNESS OF BREATH Additional Impressions: CHRONIC ANGINA Anxiety SELF REPORTED EPISODE OF HYPOGLYCEMIA Disposition: 01 HOME, SELF-CARE Condition: Stable Departure-Patient Inst. Referrals: IRAJ HERRERA MD (PCP/Family) Primary Care Physician Patient Instructions: Angina (DC), Anxiety, Adult (DC), Chest Pain (DC) Add. Discharge Instructions: TAKE YOUR MEDICATIONS PRESCRIBED FOLLOW UP WITH DR. GARCIA ON SUNDAY FOR FURTHER CARE RETURN TO ER IF SYMPTOMS WORSEN All discharge instructions reviewed with patient and/or family. Voiced understanding. ROMAIN KNIGHT DO Nov 09, 2018 05:15
[2018-11-09 05:30] LABS: INR 1.2 (0.8-1.4); PROTHROMBIN TIME PATIENT 15.8 SEC (12.2-14.7)
[2018-11-09 05:38] LABS: ALANINE AMINOTRANSFERASE 11 U/L (0-55); ALBUMIN 4.2 GM/DL (3.2-4.5); ALKALINE PHOSPHATASE 73 U/L (40-136); AMYLASE 71 U/L (25-125); BILIRUBIN,TOTAL 0.2 MG/DL (0.1-1.0); BUN/CREATININE RATIO 7; CALCIUM 9.8 MG/DL (8.5-10.1); CARBON DIOXIDE 20 MMOL/L (21-32); CHLORIDE 110 MMOL/L (98-107); GFR ESTIMATED 46; GLUCOSE 213 MG/DL (70-105); LIPASE 107 U/L (8-78); POTASSIUM 3.6 MMOL/L (3.6-5.0); SODIUM 139 MMOL/L (135-145); TOTAL PROTEIN 7.2 GM/DL (6.4-8.2)
[2018-11-09 05:39] LABS: BILIRUBIN,URINE NEGATIVE (NEGATIVE); CLARITY,URINE CLEAR; COLOR,URINE YELLOW; GLUCOSE, URINE (UA) 2+ (NEGATIVE); KETONES,URINE NEGATIVE (NEGATIVE); LEUKOCYTE ESTERASE ,URINE NEGATIVE (NEGATIVE); NITRITE,URINE NEGATIVE (NEGATIVE); PH,URINE 6.5 (5-9); PROTEIN,URINE NEGATIVE (NEGATIVE); UROBILINOGEN,URINE NORMAL (NORMAL)
[2018-11-09 05:47] LABS: BACTERIA,URINE NEGATIVE /HPF
[2018-11-09 06:19] VITALS: BP 163/102
--- NOTE | 2018-11-09 07:38 | Diagnostic Imaging Report ---
EXAMINATION: Chest radiograph, portable AP view. DATE: November 09, 2018 at 0509 hours. INDICATION: 78-year-old male, chest pain. COMPARISON: October 27, 2018. FINDINGS: There are median sternotomy wires. Stable overall appearance of the cardiomediastinal silhouette. There is no identified pneumothorax. There is no large pleural effusion. There is no identified focal airspace consolidation. There are degenerative changes of the spine. IMPRESSION: No identified acute cardiopulmonary abnormality. Dictated by: Dictated on workstation # [id number]
== END 2018-11-09 06:27 | disposition home or self-care (01) ==
LOC: EDUNIT# 04:55 → ER 04:56
DX: I25.119 Atherosclerotic heart disease of native coronary artery with unspecified angina pectoris (principal); E11.649 Type 2 diabetes mellitus with hypoglycemia without coma; F41.9 Anxiety disorder, unspecified; J44.9 Chronic obstructive pulmonary disease, unspecified; G47.30 Sleep apnea, unspecified; I10 Essential (primary) hypertension; E78.00 Pure hypercholesterolemia, unspecified; I25.2 Old myocardial infarction; E11.51 Type 2 diabetes mellitus with diabetic peripheral angiopathy without gangrene; N40.0 Benign prostatic hyperplasia without lower urinary tract symptoms; E11.43 Type 2 diabetes mellitus with diabetic autonomic (poly)neuropathy; K31.84 Gastroparesis; K21.9 Gastro-esophageal reflux disease without esophagitis; Z86.010 Personal history of colon polyps; Z87.19 Personal history of other diseases of the digestive system; Z86.73 Personal history of transient ischemic attack (TIA), and cerebral infarction without residual deficits; Z88.1 Allergy status to other antibiotic agents; Z88.5 Allergy status to narcotic agent; Z88.0 Allergy status to penicillin; Z88.8 Allergy status to other drugs, medicaments and biological substances; Z79.4 Long term (current) use of insulin; Z87.891 Personal history of nicotine dependence; Z98.1 Arthrodesis status; Z95.5 Presence of coronary angioplasty implant and graft; Z95.1 Presence of aortocoronary bypass graft; Z82.49 Family history of ischemic heart disease and other diseases of the circulatory system
CPT/HCPCS: 36415; 71045; 80053; 80162; 81000; 82150; 82962; 83690; 83735; 83874; 83880; 84484; 85025; 85610; 85730; 93005; 93041

== ENCOUNTER 2018-12-20 20:15 | Observation (INO) | payer MEDICARE ==
[~2018-12-20] VITALS: Ht 365.8 cm; Wt 79.9 kg
[~2018-12-20 20:15] MED LIST changes: -PENT400T9 PO; +PNT400TCR PO; -TOPI25TA10; +TOPI25TA10 PO
[2018-12-20 20:27] VITALS: BP 167/112
[2018-12-20] MEDS ORDERED: NS IV 1000 ML 1,000 ML IV SCH (20:35)
[2018-12-20] MEDS ORDERED: metroNIDAZOLE 500MG/100ML IVPB 100 ML IV ONE (20:45)
[2018-12-20] MEDS ORDERED: DILTIAZEM IV FOR DRIP 125 MG in NS (IVPB) 100 ML IV SCH (20:45)
[2018-12-20] MEDS ORDERED: DILTIAZEM 25 MG/5 ML INJ (CARDIZEM) VIAL IVP ONE (20:45)
[2018-12-20] MEDS ORDERED: ASPIRIN 81 MG CHEW (CHILDREN'S ASA) PO ONE (20:45)
[2018-12-20] MEDS ORDERED: cefTRIAXone FOR IV USE 1,000 MG in WATER (STERILE) FOR INJECTION 10 ML IV ONE (20:45)
--- NOTE | 2018-12-20 20:48 | ED Cardiac General ---
History of Present Illness General Chief Complaint: General Problems/Pain Stated Complaint: NECK PAIN/MULTIPLE COMPLAINTS Source: patient Exam Limitations: no limitations History of Present Illness Date Seen by Provider: Dec 20, 2018 Time Seen by Provider: 20:27 Initial Comments Patient presents to ER by private conveyance with his spouse and chief complaint that therefore days she's had some nausea but no vomiting but frequent nonbloody diarrhea. He has a history of atrial fibrillationor having some pain in his left neck. The past been related to degenerative disc disease. He's had CABG and stents placed in the past. Is known to Dr. Michele Herrera and Dr. Stiles for urology. He is not having any chest pain or shortness of breath today. His has been forcing him to drink lots of fluids. He takes Eliquis, Cardizem, digoxin residual fibrillation. He's been taking his medications routinely. Allergies and Home Medications Allergies Coded Allergies: celecoxib (Unverified Allergy, Mild, TAKES ASPIRIN AT HOME, 11/09/18) diclofenac (Unverified Allergy, Mild, TAKES ASPIRIN AT HOME, 11/09/18) naproxen (Unverified Allergy, Mild, TAKES ASPIRIN AT HOME, 11/09/18) rosuvastatin (Unverified Allergy, Mild, 11/09/18) Penicillins (Verified Allergy, Unknown, 11/09/18) amoxicillin (Verified Allergy, Unknown, 11/09/18) fenofibrate (Unverified Allergy, Unknown, 11/09/18) simvastatin (Unverified Allergy, Unknown, 11/09/18) Uncoded Allergies: GEMIFIBOROZIL (Allergy, Unknown, 06/05/16) Home Medications Amiodarone HCl 200 Mg Tablet, 200 MG PO BID, (Reported) Apixaban 5 Mg Tablet, 5 MG PO BID, (Reported) Baclofen 10 Mg Tablet, 10 MG PO TID PRN for MUSCLE SPASMS, (Reported) Benzonatate 100 Mg Capsule, 100 MG PO Q8H Prescribed by: JOSEE REICH on 01/13/189 Digoxin 125 Mcg Tablet, 125 MCG PO DAILY, (Reported) Diltiazem HCl 120 Mg Cap.er.24h, 120 MG PO DAILY Prescribed by: CHARO SCHNEIDER on 11/08/18 1704 Fenofibrate,Micronized 134 Mg Capsule, 134 MG PO DAILY, (Reported) Gabapentin 300 Mg Capsule, 600 MG PO HS, (Reported) TAKES 2 (300 MG) CAPSULES Hyoscyamine Sulfate 0.125 Mg Tab.subl, 1-2 TAB SL Q4H Prescribed by: ROMAIN KNIGHT on 07/31/18 0411 Insulin Detemir 100 Unit/1 Ml Insuln.pen, 25 UNIT SQ BID, (Reported) Metoclopramide HCl 5 Mg Tab.rapdis, 5 MG PO ACHS, (Reported) Nitroglycerin 0.4 Mg Tab.subl, 0.4 MG SL UD PRN for CHEST PAIN, (Reported) MAX OF 3 TABS IN 15 MINUTES / CALL 911 IF PAIN REMAINS AFTER 5 MINUTES Pantoprazole Sodium 40 Mg Tablet.dr, 40 MG PO DAILY Prescribed by: RODOLFO GODWIN on 07/24/18 184 Pentoxifylline 400 Mg Tablet.er, 400 MG PO BID, (Reported) Pravastatin Sodium 80 Mg Tablet, 80 MG PO HS, (Reported) Tamsulosin HCl 0.4 Mg Cap.er.24h, 0.4 MG PO DAILY, (Reported) Trazodone HCl 50 Mg Tablet, 50 MG PO HS, (Reported) Patient Home Medication List Home Medication List Reviewed: Yes Review of Systems Review of Systems Constitutional: No chills, No diaphoresis EENTM: No Blurred Vision, No Double Vision Respiratory: Denies Cough, Denies Shortness of Air Cardiovascular: Denies Chest Pain, Denies Edema Gastrointestinal: Denies Abdomen Distended, Denies Abdominal Pain, Denies Constipated; Diarrhea, Nausea, Poor Fluid Intake; Denies Vomiting Genitourinary: Denies Burning, Denies Discharge Musculoskeletal: No back pain, No joint pain Skin: No pruritus, No rash Psychiatric/Neurological: Denies Headache, Denies Numbness Past Phblvgp-[id number]-Myzpsh Hx Patient Social History Alcohol Use: Regular Use Alcohol Beverage of Choice: Beer Recreational Drug Use: No Smoking Status: Former Smoker Type Used: Cigarettes Former Smoker, Quit: Apr 12, 2000 2nd Hand Smoke Exposure: No Recent Foreign Travel: No Contact w/Someone Who Travel: No Recent Hopitalizations: No Immunizations Up To Date Tetanus Booster (TDap): Less than 5yrs PED Vaccines UTD: No Date of Pneumonia Vaccine: Mar 08, 2018 Date of Influenza Vaccine: Mar 08, 2018 Seasonal Allergies Seasonal Allergies: No Past Medical History Surgeries: Yes Abdominal, Angioplasty, Cardiac, CABG, Coronary Stent, Eye Surgery, Gallbladder, Joint Replacement, Open Heart Surgery, Orthopedic, Vascular Surgery Respiratory: Yes (CHRONIC DYSPNEA ON EXERTION) Sleep Apnea, COPD Currently Using CPAP: No Currently Using BIPAP: No Cardiac: Yes Atrial Fibrillation, Chronic Edema/Swelling, Coronary Artery Disease, Heart Attack, High Cholesterol, Hypertension, Peripheral Vascular Neurological: Yes (POSSIBLE STROKE/ TIA) Stroke, TIA Reproductive Disorders: No Sexually Transmitted Disease: No HIV/AIDS: No Genitourinary: Yes (RENAL INSUFFICIENCY) Benign Prostatic Hyperpl, Prostate Problems, Renal Failure Gastrointestinal: Yes (GASTROPARESIS) Abdominal Hernia, Gastroesophageal Reflux, Chronic Constipation, Diverticulosis, Pancreatitis, Polyps, Gall Bladder Disease Musculoskeletal: Yes (OLECRANON BURSITIS, CHRONIC NECK PAIN, DISH SYNDROME) Degenerate Disk Disease, Arthritis, Chronic Back Pain Endocrine: Yes Diabetes, Insulin dep HEENT: Yes Cataract Loss of Vision: Denies Hearing Impairment: Denies Cancer: No Psychosocial: Yes Anxiety Integumentary: No Blood Disorders: No Adverse Reaction/Blood Tranf: No Family Medical History Cancer G8 BROTHER Cataract 19 FATHER 19 MOTHER G8 BROTHER G8 BROTHER G8 SISTER Congestive heart failure 19 FATHER 19 MOTHER Family history: Arthritis 19 FATHER 19 MOTHER G8 BROTHER G8 BROTHER G8 SISTER G8 SISTER DAUGHTER SON Family history: Breast disease DAUGHTER Family history: Cardiovascular disease 19 FATHER Family history: Diabetes mellitus 19 FATHER G8 BROTHER G8 SISTER Family history: Hypertension 19 FATHER 19 MOTHER G8 BROTHER G8 BROTHER G8 SISTER G8 SISTER DAUGHTER SON Family history: Thyroid disorder DAUGHTER Heart disease 19 FATHER 19 MOTHER G8 BROTHER Hypercholesterolemia 19 FATHER 19 MOTHER G8 BROTHER G8 BROTHER G8 SISTER Myocardial infarction 19 FATHER 19 MOTHER G8 BROTHER No Family History of: Abdominal aortic aneurysm Robel's disease Alcoholism Aphasia Cancer of colon Chest pain Congenital heart disease Cystic fibrosis Dementia Dysphagia Family history: Allergy Family history: Alzheimer's disease Family history: Asthma Family history: Coronary thrombosis Family history: Gastrointestinal disease Family history: Glaucoma Family history: Osteoporosis Headache Hearing loss Hereditary disease History of - anemia History of - disorder History of - respiratory disease History of drug abuse Human immunodeficiency virus (HIV) seropositivity Infertile Kidney disease Malignant neoplasm of lung Parkinson's disease Prostate cancer Psychotic disorder Seizure disorder Stroke Tuberculosis Visual impairment Physical Exam Vital Signs Vital Signs - First Documented Capillary Refill : Height, Weight, BMI Height: 6'0" Weight: 178lbs. 0.0oz. [id number]; 26.1 BMI Method:Stated General Appearance: No Apparent Distress, WD/WN HEENT: PERRL/EOMI, TMs Normal, Normal ENT Inspection, Pharynx Normal, Moist Mucous Membranes Neck: Full Range of Motion, Normal Inspection Respiratory: Chest Non Tender, Lungs Clear, Normal Breath Sounds, No Accessory Muscle Use, No Respiratory Distress Cardiovascular: No Edema, No JVD, Normal Peripheral Pulses, Tachycardia Gastrointestinal: Normal Bowel Sounds, No Organomegaly, Non Tender, Soft Extremity: Normal Capillary Refill, Normal Inspection, No Pedal Edema Neurologic/Psychiatric: Alert, Oriented x3, No Motor/Sensory Deficits Skin: Normal Color, Warm/Dry Focused Exam Lactate Level 12/20/18 20:40: Lactic Acid Level 1.38 Lactic Acid Level Laboratory Tests Test 12/20/18 20:40 Lactic Acid Level 1.38 MMOL/L (0.50-2.00) Progress/Results/Core Measures Results/Orders Lab Results Laboratory Tests Test 12/20/18 20:40 Range/Units White Blood Count 8.0 4.3-11.0 10^3/uL Red Blood Count 4.60 4.35-5.85 10^6/uL Hemoglobin 12.0 L 13.3-17.7 G/DL Hematocrit 37 L 40-54 % Mean Corpuscular Volume 81 80-99 FL Mean Corpuscular Hemoglobin 26 25-34 PG Mean Corpuscular Hemoglobin Concent 32 32-36 G/DL Red Cell Distribution Width 15.5 H 10.0-14.5 % Platelet Count 312 130-400 10^3/uL Mean Platelet Volume 10.4 7.4-10.4 FL Neutrophils (%) (Auto) 60 42-75 % Lymphocytes (%) (Auto) 31 12-44 % Monocytes (%) (Auto) 7 0-12 % Eosinophils (%) (Auto) 2 0-10 % Basophils (%) (Auto) 0 0-10 % Neutrophils # (Auto) 4.8 1.8-7.8 X 10^3 Lymphocytes # (Auto) 2.5 1.0-4.0 X 10^3 Monocytes # (Auto) 0.5 0.0-1.0 X 10^3 Eosinophils # (Auto) 0.1 0.0-0.3 10^3/uL Basophils # (Auto) 0.0 0.0-0.1 10^3/uL Prothrombin Time 15.5 H 12.2-14.7 SEC INR Comment 1.2 0.8-1.4 Activated Partial Thromboplast Time 33 24-35 SEC Sodium Level 140 135-145 MMOL/L Potassium Level 4.0 3.6-5.0 MMOL/L Chloride Level 109 H 98-107 MMOL/L Carbon Dioxide Level 19 L 21-32 MMOL/L Anion Gap 12 5-14 MMOL/L Blood Urea Nitrogen 11 7-18 MG/DL Creatinine 1.66 H 0.60-1.30 MG/DL Estimat Glomerular Filtration Rate 40 BUN/Creatinine Ratio 7 Glucose Level 210 H 70-105 MG/DL Lactic Acid Level 1.38 0.50-2.00 MMOL/L Calcium Level 10.3 H 8.5-10.1 MG/DL Corrected Calcium 10.0 8.5-10.1 MG/DL Magnesium Level 1.8 1.8-2.4 MG/DL Total Bilirubin 0.4 0.1-1.0 MG/DL Aspartate Amino Transf (AST/SGOT) 14 5-34 U/L Alanine Aminotransferase (ALT/SGPT) 17 0-55 U/L Alkaline Phosphatase 75 40-136 U/L Myoglobin 110.9 H 10.0-92.0 NG/ML Troponin I < 0.028 <0.028 NG/ML B-Type Natriuretic Peptide 32.2 <100.0 PG/ML Total Protein 7.8 6.4-8.2 GM/DL Albumin 4.4 3.2-4.5 GM/DL Lipase 53 8-78 U/L My Orders Orders - TORSTENWENDY J Ekg Tracing (12/20/18 20:28) Continuous Ekg Monitoring (12/20/18 20:28) Cbc With Automated Diff (12/20/18 20:35) Magnesium (12/20/18 20:35) Chest 1 View, Ap/Pa Only (12/20/18 20:35) Cardiac Profile 1 (12/20/18 20:35) Comprehensive Metabolic Panel (12/20/18 20:35) Myoglobin Serum (12/20/18 20:35) Protime With Inr (12/20/18 20:35) Partial Thromboplastin Time (12/20/18 20:35) O2 (12/20/18 20:35) Lipid Panel (12/21/18 06:00) Ed Iv/Invasive Line Start (12/20/18 20:35) BNP (12/20/18 20:35) Aspirin Chewable Tablet (Baby Aspirin Ch (12/20/18 20:45) Blood Culture (12/20/18 20:35) Sputum Culture (12/20/18 20:35) Urinalysis (12/20/18 20:35) Urine Culture (12/20/18 20:35) Ed Iv/Invasive Line Start (12/20/18 20:35) Ed Iv/Invasive Line Start (12/20/18 20:35) Vital Signs Adult Sepsis Patie Q15M (12/20/18 20:35) O2 (12/20/18 20:35) Remove Rings In Anticipation O (12/20/18 20:35) Lactic Acid Analyzer (12/20/18 20:35) Ns Iv 1000 Ml (Sodium Chloride 0.9%) (12/20/18 20:35) Ceftriaxone For Iv Use (Rocephin For I (12/20/18 20:45) Lipase (12/20/18 20:35) Metronidazole 500mg/100ml Ivpb (Flagyl 5 (12/20/18 20:45) Ed Iv/Invasive Line Start (12/20/18 20:35) Ns (Ivpb) (Sodium C... W/Diltiazem Iv Fo (12/20/18 20:45) Diltiazem Injection (Cardizem Injection) (12/20/18 20:45) Ekg Tracing (12/20/18 21:13) Medications Given in ED Current Medications Medications Dose Ordered Sig/Alka Route Start Time Stop Time Status Last Admin Dose Admin Aspirin 324 mg ONCE ONCE PO 12/20/18 20:45 12/20/18 20:46 DC 12/20/18 20:59 324 MG Ceftriaxone Sodium 1000 mg/ Sterile Water 10 ml @ 200 mls/hr ONCE ONCE IV 12/20/18 20:45 12/20/18 20:47 DC 12/20/18 20:59 200 MLS/HR Diltiazem HCl 20 mg ONCE ONCE IVP 12/20/18 20:45 12/20/18 20:46 DC 12/20/18 20:58 20 MG Metronidazole 100 ml @ 100 mls/hr ONCE ONCE IV 12/20/18 20:45 12/20/18 21:44 12/20/18 21:01 100 MLS/HR Vital Signs/I&O 12/20/18 12/20/18 12/20/18 12/20/18 20:27 20:27 20:27 20:58 Temp 97.8 97.8 Pulse 151 151 152 Resp 18 18 B/P (MAP) 167/112 (130) 167/112 (130) Pulse Ox 99 99 99 O2 Delivery Room Air Room Air Room Air Progress Progress Note : Time: 20:46 Progress Note Tylenol, Zofran, aspirin, liter of normal saline, labs and a bolus of Cardizem 20 mg followed by Cardizem drip initiated at 5 mg per hour. Because of his tachycardia possible rule out sepsis given his diarrhea so we will obtain blood cultures and lactate. Stated allergy to penicillin was admitting him feel weird. I will give him Rocephin and Flagyl for the unlikely event of a bacterial GI event.+ Plan to interrogate the implanted loop monitor. Initial ECG Impression Date: Dec 20, 2018 Initial ECG Impression Time: 20:27 Initial ECG Rate: 152 Initial ECG Rhythm: SVT Initial ECG Intervals: QT (541) Initial ECG Impression: SVT Initial ECG Comparisson: Changed Comment Tachycardia. Narrow complex QRS. Regular intervals EKG : EKG Time: 21:09 Rate: 93 Rhythm: A Fib/Flutter Intervals: QT (453) ECG Comparisson: Changed ECG Impression: Atrial Fibrillation Comment Atrial fibrillation without rapid ventricular response. No clinically significant ST elevation or depression. Diagnostic Imaging Diagonstic Imaging: Xray Plain Films/CT/US/NM/MRI: chest (1v) Comments No acute cardiopulmonary process noted on one view chest x-ray. Reviewed: Reviewed by Me Departure Communication (Admissions) Time/Spoke to Admitting Phy: 21:30 Discussed the case and she agrees with observing the patient. She would like IV fluids, urinalysis and agrees with holding the antibiotics at this time. Time/Spoke to Consulting Phy: 21:25 Discussed the case with Dr. Stiles, cardiology and he agrees with keeping the patient on the Cardizem drip overnight with some IV fluids and he will consult. Impression Primary Impression: Atrial fibrillation with RVR Additional Impressions: Neck pain Gastroenteritis and colitis, viral Disposition: HOME, SELF-CARE Condition: Stable Admissions Decision to Admit Reason: Admit from ER (General) Decision to Admit/Date: Dec 20, 2018 Time/Decision to Admit Time: 21:30 Departure-Patient Inst. Referrals: MICHELE HERRERA MD (PCP/Family) Primary Care Physician WENDY SARMIENTO Dec 20, 2018 20:48
[2018-12-20 20:50] LABS: BASOPHILS % (AUTO) 0 % (0-10); EOSINOPHILS # (AUTO) 0.1 10^3/uL (0.0-0.3); EOSINOPHILS % (AUTO) 2 % (0-10); HEMATOCRIT 37 % (40-54); LYMPHOCYTES # (AUTO) 2.5 X 10^3 (1.0-4.0); LYMPHOCYTES % (AUTO) 31 % (12-44); MEAN CORPUSCULAR HEMOGLOBIN 26 PG (25-34); MEAN CORPUSCULAR HGB CONC 32 G/DL (32-36); MEAN CORPUSCULAR VOLUME 81 FL (80-99); MEAN PLATELET VOLUME 10.4 FL (7.4-10.4); MONOCYTES # (AUTO) 0.5 X 10^3 (0.0-1.0); MONOCYTES % (AUTO) 7 % (0-12); NEUTROPHILS # (AUTO) 4.8 X 10^3 (1.8-7.8); NEUTROPHILS % (AUTO) 60 % (42-75); PLATELET COUNT 312 10^3/uL (130-400); RED CELL DISTRIBUTION WIDTH 15.5 % (10.0-14.5)
[2018-12-20 21:00] LABS: INR 1.2 (0.8-1.4); PROTHROMBIN TIME PATIENT 15.5 SEC (12.2-14.7)
[2018-12-20 21:08] LABS: ALANINE AMINOTRANSFERASE 17 U/L (0-55); ALBUMIN 4.4 GM/DL (3.2-4.5); ALKALINE PHOSPHATASE 75 U/L (40-136); BILIRUBIN,TOTAL 0.4 MG/DL (0.1-1.0); BUN/CREATININE RATIO 7; CALCIUM 10.3 MG/DL (8.5-10.1); CARBON DIOXIDE 19 MMOL/L (21-32); CHLORIDE 109 MMOL/L (98-107); CREATININE SERUM 1.66 MG/DL (0.60-1.30); GFR ESTIMATED 40; GLUCOSE 210 MG/DL (70-105); MAGNESIUM 1.8 MG/DL (1.8-2.4); SODIUM 140 MMOL/L (135-145); TOTAL PROTEIN 7.8 GM/DL (6.4-8.2)
[2018-12-20] MEDS ORDERED: ACETAMINOPHEN 500 MG TAB (TYLENOL) PO ONE (21:30)
--- NOTE | 2018-12-20 21:58 | Diagnostic Imaging Report ---
INDICATION: Neck pain COMPARISON: 11/09/2018 FINDINGS: Single frontal view of the chest demonstrates normal heart size and pulmonary vascularity. Sternotomy wires are noted. Lungs are hyperinflated, but are otherwise clear. No large pleural effusion or pneumothorax is seen. The visualized osseous structures show no acute abnormalities. IMPRESSION: 1. No acute cardiopulmonary process. 2. Background COPD changes. Dictated by: Dictated on workstation # [id number]
[2018-12-20 22:20] LABS: BILIRUBIN,URINE NEGATIVE (NEGATIVE); CLARITY,URINE CLEAR; COLOR,URINE YELLOW; GLUCOSE, URINE (UA) NEGATIVE (NEGATIVE); KETONES,URINE NEGATIVE (NEGATIVE); LEUKOCYTE ESTERASE ,URINE NEGATIVE (NEGATIVE); NITRITE,URINE NEGATIVE (NEGATIVE); PH,URINE 7 (5-9); PROTEIN,URINE NEGATIVE (NEGATIVE); UROBILINOGEN,URINE NORMAL (NORMAL)
[2018-12-20 22:27] LABS: BACTERIA,URINE NEGATIVE /HPF; SQUAMOUS EPITHELIAL CELL,UR 0-2 /HPF
[2018-12-20 22:45] VITALS: BP 170/95
[2018-12-20 23:00] VITALS: BP 153/90
[2018-12-20] MEDS ORDERED: ACETAMINOPHEN 325 MG TABLET PO PRN (23:00)
[2018-12-20] MEDS ORDERED: ANTACID SUSP 30 ML UDC (MYLANTA) PO PRN (23:00)
[2018-12-20] MEDS ORDERED: HYDROcodone/APAP 5 MG/325 MG (LORTAB) TAB PO PRN (23:00)
[2018-12-20] MEDS ORDERED: DILTIAZEM 125 MG/NS 100 ML IV SCH ×2 (23:00)
--- OUTSIDE RECORDS SUMMARY | 2018-12-20 23:16 | XMS REPORT | Clinical Summary ---
Author Author [facility] Organization [facility] Address Unknown Phone Unavailable Care Team Providers Care Piece Hand Name Role Phone Chance Ward PCP Source Comments Some departments are not documenting in the electronic medical record. If you d o not see the information that you expected, contact Release of Information in [facility] [employer] Information Management department at [phone] for further assistan ce in locating additional records.[facility] Allergies Not on File Medications End [...] Problem Noted Date Coronary artery disease involving jackson coronary artery 10/24/2016 Overview: 2000 CABG x 4 02/17/12 PTCA BMS to vein graft to the OM 03/02/16 severe in-stent restenosis in the SVG to the OM with successful PCI, no residual stenosis, patent VG to RCA VG to the diag artery and AMANDA to the LAD occluded jackson vessels proximally, small vessel disease distally 09/25/16 [facility] - severe jackson disease, patent graft to RCA, diagonal LAD, [...] A AND Present B Advance Directives 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
[2018-12-20] MEDS: NS IV 1000 ML 1,000 ML IV SCH (23:35)
[2018-12-21] VITALS (10 sets, daily range): BP systolic 145–184; BP diastolic 74–98
[2018-12-21 04:12] LABS: BASOPHILS % (AUTO) 1 % (0-10); EOSINOPHILS # (AUTO) 0.1 10^3/uL (0.0-0.3); EOSINOPHILS % (AUTO) 2 % (0-10); HEMATOCRIT 36 % (40-54); HEMOGLOBIN 11.3 G/DL (13.3-17.7); LYMPHOCYTES % (AUTO) 32 % (12-44); MEAN CORPUSCULAR HEMOGLOBIN 26 PG (25-34); MEAN CORPUSCULAR HGB CONC 32 G/DL (32-36); MEAN CORPUSCULAR VOLUME 82 FL (80-99); MEAN PLATELET VOLUME 10.1 FL (7.4-10.4); MONOCYTES # (AUTO) 0.5 X 10^3 (0.0-1.0); MONOCYTES % (AUTO) 8 % (0-12); NEUTROPHILS # (AUTO) 3.7 X 10^3 (1.8-7.8); NEUTROPHILS % (AUTO) 59 % (42-75); PLATELET COUNT 279 10^3/uL (130-400); RED CELL DISTRIBUTION WIDTH 15.6 % (10.0-14.5); WHITE BLOOD COUNT 6.3 10^3/uL (4.3-11.0)
[2018-12-21 04:52] LABS: ALANINE AMINOTRANSFERASE 15 U/L (0-55); ALBUMIN 4.1 GM/DL (3.2-4.5); ALKALINE PHOSPHATASE 68 U/L (40-136); BILIRUBIN,TOTAL 0.4 MG/DL (0.1-1.0); BUN/CREATININE RATIO 7; CALCIUM 9.8 MG/DL (8.5-10.1); CARBON DIOXIDE 20 MMOL/L (21-32); CHLORIDE 110 MMOL/L (98-107); CHOLESTEROL 151 MG/DL (< 200); CREATININE SERUM 1.41 MG/DL (0.60-1.30); GFR ESTIMATED 49; GLUCOSE 178 MG/DL (70-105); HDL CHOLESTEROL 34 MG/DL (40-60); MAGNESIUM 1.7 MG/DL (1.8-2.4); PHOSPHORUS 2.4 MG/DL (2.3-4.7); POTASSIUM 3.7 MMOL/L (3.6-5.0); SODIUM 140 MMOL/L (135-145); TOTAL PROTEIN 7.2 GM/DL (6.4-8.2); TRIGLYCERIDES 132 MG/DL (<150); VLDL CHOLESTEROL 26 MG/DL (5-40)
[2018-12-21] MEDS ORDERED: MAGNESIUM 1 GM/100 ML IVPB 100 ML IV ONE (05:00)
[2018-12-21] MEDS: NS IV 1000 ML 1,000 ML IV SCH (05:01)
[2018-12-21] MEDS ORDERED: POTASSIUM CL 10MEQ/50ML IVPB 50 ML IV SCH (06:00)
[2018-12-21] MEDS ORDERED: inSUlin ASPART (NovoLOG) 1 UNIT/0.01 ML (CHARGE PER UNIT) SC SCH (06:00)
[2018-12-21] MEDS ORDERED: KCL 20 MEQ TAB (K-DUR) PO SCH (06:00)
[2018-12-21] MEDS ORDERED: MAGNESIUM 1 GM/100 ML IVPB 100 ML IV SCH (06:00)
--- NOTE | 2018-12-21 06:30 | NUR ---
Paged Dr. Keller and Dr. Stiles patient's HR in 60s and had converted to Sinus rhythm at 22:45 12/20. Rec'd order from Dr. Keller to give Cardizem 60 mg tab PO now and DC Cardizem gtt in 1 hour.
[2018-12-21] MEDS ORDERED: DILTIAZEM 60 MG (CARDIZEM) TAB PO ONE (06:45)
--- NOTE | 2018-12-21 08:12 | Short Stay Summary ---
History of Present Illness History of Present Illness Reason for visit/HPI 78 years old gentleman with history of coronary artery disease, paroxysmal atrial fibrillation, was having gastroenteritis with diarrhea for a few days, planning of neck pain, came into the emergency room and noted to be in atrial fibrillation with rapid ventricular response. He was started on Cardizem drip, achieve adequate response, converted to sinus rhythm later at night. Has been doing well. Asymptomatic at this time. Denied any chest pain or shortness of breath. No palpitation Date of Admission Dec 20, 2018 at 21:30 Date of Discharge December 21, 2018 Time Seen by Provider: 08:00 Attending Physician Nat Keller MD Admitting Physician Michele Culp MD Consult Allergies and Home Medications Allergies Coded Allergies: celecoxib (Unverified Allergy, Mild, TAKES ASPIRIN AT HOME, 11/09/18) diclofenac (Unverified Allergy, Mild, TAKES ASPIRIN AT HOME, 11/09/18) naproxen (Unverified Allergy, Mild, TAKES ASPIRIN AT HOME, 11/09/18) rosuvastatin (Unverified Allergy, Mild, 11/09/18) Penicillins (Verified Allergy, Unknown, 11/09/18) amoxicillin (Verified Allergy, Unknown, 11/09/18) fenofibrate (Unverified Allergy, Unknown, 11/09/18) simvastatin (Unverified Allergy, Unknown, 11/09/18) Uncoded Allergies: GEMIFIBOROZIL (Allergy, Unknown, 06/05/16) Home Medications Amiodarone HCl 200 Mg Tablet, 200 MG PO BID, (Reported) Apixaban 5 Mg Tablet, 5 MG PO BID, (Reported) Baclofen 10 Mg Tablet, 10 MG PO TID PRN for MUSCLE SPASMS, (Reported) Cholecalciferol (Vitamin D3) 2,000 Unit Capsule, 2,000 UNIT PO DAILY, (Reported) Clonidine HCl 0.1 Mg Tablet, 0.1 MG PO DAILY PRN for SYSTOLIC BLOOD PRESSURE, (Reported) Digoxin 125 Mcg Tablet, 125 MCG PO DAILY, (Reported) Diltiazem HCl 120 Mg Cap.er.24h, 120 MG PO DAILY Prescribed by: CHARO SCHNEIDER on 11/08/18 1704 Fenofibrate,Micronized 134 Mg Capsule, 134 MG PO DAILY, (Reported) Gabapentin 300 Mg Capsule, 600 MG PO HS, (Reported) TAKES 2 (300 MG) CAPSULES Hyoscyamine Sulfate 0.125 Mg Tab.subl, 1-2 TAB SL Q4H Prescribed by: ROMAIN KNIGHT on 07/31/18 0411 Insulin Detemir 100 Unit/1 Ml Insuln.pen, 25 UNIT SQ BID, (Reported) Montelukast Sodium 10 Mg Tablet, 10 MG PO HS, (Reported) Nitroglycerin 0.4 Mg Tab.subl, 0.4 MG SL UD PRN for CHEST PAIN, (Reported) MAX OF 3 TABS IN 15 MINUTES / CALL 911 IF PAIN REMAINS AFTER 5 MINUTES Pantoprazole Sodium 40 Mg Tablet.dr, 40 MG PO DAILY Prescribed by: RODOLFO GODWIN on 07/24/18 1843 Pentoxifylline 400 Mg Tablet.er, 400 MG PO TID, (Reported) Pravastatin Sodium 80 Mg Tablet, 80 MG PO HS, (Reported) Tamsulosin HCl 0.4 Mg Cap.er.24h, 0.4 MG PO DAILY, (Reported) Topiramate 25 Mg Tablet, 25 MG PO DAILY, (Reported) Trazodone HCl 50 Mg Tablet, 50 MG PO HS, (Reported) Zolpidem Tartrate 10 Mg Tablet, 10 MG PO HS, (Reported) Patient Home Medication List Home Medication List Reviewed: Yes Past Ssvchjk-Sococu-Skztez Hx Patient Social History Marrital Status: Employed/Student: retired Alcohol Use: Regular Use Number of Drinks Today: AA Alcohol Beverage of Choice: Beer Recreational Drug Use: No Smoking Status: Former Smoker Former Smoker, Quit: Apr 12, 2000 Type Used: Cigarettes 2nd Hand Smoke Exposure: No Recent Foreign Travel: No Contact w/other who traveled: No Recent Hopitalizations: No Recent Infectious Disease Expo: No Immunizations Up To Date Tetanus Booster (TDap): Less than 5yrs Pediatric: No Date of Pneumonia Vaccine: May 22, 2017 Date of Influenza Vaccine: Mar 08, 2018 Seasonal Allergies Seasonal Allergies: No Surgeries Yes Abdominal, Angioplasty, Cardiac, CABG, Coronary Stent, Eye Surgery, Gallbladder, Joint Replacement, Open Heart Surgery, Orthopedic, Vascular Surgery Respiratory Yes (CHRONIC DYSPNEA ON EXERTION) COPD Currently Using CPAP: No Currently Using BIPAP: No Cardiovascular Yes Atrial Fibrillation, Chronic Edema/Swelling, Coronary Artery Disease, Heart Attack, High Cholesterol, Hypertension, Peripheral Vascular Neurological Yes (POSSIBLE STROKE/ TIA) Stroke, TIA Reproductive System Hx Reproductive Disorders: No Sexually Transmitted Disease: No HIV/AIDS: No Genitourinary Yes (RENAL INSUFFICIENCY) Benign Prostatic Hyperpl, Prostate Problems, Renal Failure Gastrointestinal Yes (GASTROPARESIS) Abdominal Hernia, Gastroesophageal Reflux, Chronic Constipation, Diverticulosis, Pancreatitis, Polyps, Gall Bladder Disease Musculoskeletal Yes (OLECRANON BURSITIS, CHRONIC NECK PAIN, DISH SYNDROME) Degenerate Disk Disease, Arthritis, Chronic Back Pain Endocrine History of Endocrine Disorders: Yes Endocrine Disorders: Diabetes, Insulin dep HEENT History of HEENT Disorders: Yes HEENT Disorders: Cataract Loss of Vision: Denies Hearing Impairment: Denies Cancer No Psychosocial History of Psychiatric Problem: Yes Behavioral Health Disorders: Anxiety Integumentary History of Skin or Integumenta: No Blood Transfusions History of Blood Disorders: No Adverse Reaction to a Blood Tr: No Family Medical History Family Hx: Cancer G8 BROTHER Cataract 19 FATHER 19 MOTHER G8 BROTHER G8 BROTHER G8 SISTER Congestive heart failure 19 FATHER 19 MOTHER Family history: Arthritis 19 FATHER 19 MOTHER G8 BROTHER G8 BROTHER G8 SISTER G8 SISTER DAUGHTER SON Family history: Breast disease DAUGHTER Family history: Cardiovascular disease 19 FATHER Family history: Diabetes mellitus 19 FATHER G8 BROTHER G8 SISTER Family history: Hypertension 19 FATHER 19 MOTHER G8 BROTHER G8 BROTHER G8 SISTER G8 SISTER DAUGHTER SON Family history: Thyroid disorder DAUGHTER Heart disease 19 FATHER 19 MOTHER G8 BROTHER Hypercholesterolemia 19 FATHER 19 MOTHER G8 BROTHER G8 BROTHER G8 SISTER Myocardial infarction 19 FATHER 19 MOTHER G8 BROTHER No Family History of: Abdominal aortic aneurysm Van Zandt's disease Alcoholism Aphasia Cancer of colon Chest pain Congenital heart disease Cystic fibrosis Dementia Dysphagia Family history: Allergy Family history: Alzheimer's disease Family history: Asthma Family history: Coronary thrombosis Family history: Gastrointestinal disease Family history: Glaucoma Family history: Osteoporosis Headache Hearing loss Hereditary disease History of - anemia History of - disorder History of - respiratory disease History of drug abuse Human immunodeficiency virus (HIV) seropositivity Infertile Kidney disease Malignant neoplasm of lung Parkinson's disease Prostate cancer Psychotic disorder Seizure disorder Stroke Tuberculosis Visual impairment Review of Systems Constitutional: see HPI, malaise EENTM: see HPI, no symptoms reported Respiratory: see HPI; No cough; dyspnea on exertion; No hemoptysis, No orthopnea, No phlegm, No short of breath, No stridor, No wheezing, No other Cardiovascular: no symptoms reported, see HPI; No chest pain, No edema, No Hx of Intervention; palpitations; No syncope, No vascular heart diseas, No other Gastrointestinal: see HPI, diarrhea Genitourinary: see HPI Musculoskeletal: see HPI, back pain, neck pain Skin: no symptoms reported, see HPI Psychiatric/Neurological: No Symptoms Reported, See HPI Physical Exam Vital Signs Vital Signs - First Documented Capillary Refill : Less Than 3 Seconds Height, Weight, BMI Height: 6'72.00" Weight: 176lbs. 4.0oz. 79.487022in; 6.0 BMI Method:Stated General Appearance: No Apparent Distress, WD/WN Eyes: Bilateral Eye Normal Inspection, Bilateral Eye PERRL, Bilateral Eye EOMI HEENT: PERRL/EOMI, TMs Normal, Normal ENT Inspection, Pharynx Normal Neck: Full Range of Motion, Normal Inspection, Non Tender, Supple, Carotid Bruit Respiratory: Chest Non Tender, Lungs Clear, Normal Breath Sounds, No Accessory Muscle Use, No Respiratory Distress Cardiovascular: Regular Rate, Rhythm, No Edema, No Gallop, No JVD, No Murmur, Normal Peripheral Pulses Gastrointestinal: Normal Bowel Sounds, No Organomegaly, No Pulsatile Mass, Non Tender, Soft Back: Normal Inspection, No CVA Tenderness, No Vertebral Tenderness Extremity: Normal Capillary Refill, Normal Inspection, Normal Range of Motion, Non Tender, No Calf Tenderness, No Pedal Edema Neurologic/Psychiatric: Alert, Oriented x3, No Motor/Sensory Deficits, Normal Mood/Affect Skin: Normal Color, Warm/Dry Lymphatic: No Adenopathy Clinical Quality Measures End of Life/Advance Care Plan: Advance Care discuss with: patient Admission Status Admission Status: Observation DVT/VTE Risk/Contraindication: Risk Factor Score Per Nursin RFS Level Per Nursing on Admit: 4+=Very High Short Stay Diagnosis Discharge Diagnosis-Short Stay Admission Diagnosis: paroxysmal atrial fibrillation Diarrhea Coronary artery disease Hypertension Final Discharge Diagnosis: paroxysmal atrial fibrillation Diarrhea Coronary artery disease Hypertension Conclusion Labs Laboratory Tests 12/20/18 20:40: White Blood Count 8.0, Red Blood Count 4.60, Hemoglobin 12.0L, Hematocrit 37L, Mean Corpuscular Volume 81, Mean Corpuscular Hemoglobin 26, Mean Corpuscular Hemoglobin Concent 32, Red Cell Distribution Width 15.5H, Platelet Count 312, Mean Platelet Volume 10.4, Neutrophils (%) (Auto) 60, Lymphocytes (%) (Auto) 31, Monocytes (%) (Auto) 7, Eosinophils (%) (Auto) 2, Basophils (%) (Auto) 0, Neutrophils # (Auto) 4.8, Lymphocytes # (Auto) 2.5, Monocytes # (Auto) 0.5, Eosinophils # (Auto) 0.1, Basophils # (Auto) 0.0, Prothrombin Time 15.5H, INR Comment 1.2, Activated Partial Thromboplast Time 33, Sodium Level 140, Potassium Level 4.0, Chloride Level 109H, Carbon Dioxide Level 19L, Anion Gap 12, Blood Urea Nitrogen 11, Creatinine 1.66H, Estimat Glomerular Filtration Rate 40, BUN/Creatinine Ratio 7, Glucose Level 210H, Lactic Acid Level 1.38, Calcium Level 10.3H, Corrected Calcium 10.0, Magnesium Level 1.8, Total Bilirubin 0.4, Aspartate Amino Transf (AST/SGOT) 14, Alanine Aminotransferase (ALT/SGPT) 17, Alkaline Phosphatase 75, Myoglobin 110.9H, Troponin I < 0.028, B-Type Natriuretic Peptide 32.2, Total Protein 7.8, Albumin 4.4, Lipase 53 12/20/18 22:13: Urine Color YELLOW, Urine Clarity CLEAR, Urine pH 7, Urine Specific [place] 1.005L, Urine Protein NEGATIVE, Urine Glucose (UA) NEGATIVE, Urine Ketones NEGATIVE, Urine Nitrite NEGATIVE, Urine Bilirubin NEGATIVE, Urine Urobilinogen NORMAL, Urine Leukocyte Esterase NEGATIVE, Urine RBC (Auto) NEGATIVE, Urine RBC NONE, Urine WBC NONE, Urine Squamous Epithelial Cells 0-2, Urine Crystals NONE, Urine Bacteria NEGATIVE, Urine Casts NONE, Urine Mucus NEGATIVE, Urine Culture Indicated NO 12/20/18 22:54: Glucometer 141H 12/21/18 04:01: White Blood Count 6.3, Red Blood Count 4.35, Hemoglobin 11.3L, Hematocrit 36L, Mean Corpuscular Volume 82, Mean Corpuscular Hemoglobin 26, Mean Corpuscular Hemoglobin Concent 32, Red Cell Distribution Width 15.6H, Platelet Count 279, Mean Platelet Volume 10.1, Neutrophils (%) (Auto) 59, Lymphocytes (%) (Auto) 32, Monocytes (%) (Auto) 8, Eosinophils (%) (Auto) 2, Basophils (%) (Auto) 1, Neutrophils # (Auto) 3.7, Lymphocytes # (Auto) 2.0, Monocytes # (Auto) 0.5, Eosinophils # (Auto) 0.1, Basophils # (Auto) 0.0, Sodium Level 140, Potassium Level 3.7, Chloride Level 110H, Carbon Dioxide Level 20L, Anion Gap 10, Blood Urea Nitrogen 10, Creatinine 1.41H, Estimat Glomerular Filtration Rate 49, BU N/Creatinine Ratio 7, Glucose Level 178H, Calcium Level 9.8, Corrected Calcium 9.7, Magnesium Level 1.7L, Total Bilirubin 0.4, Aspartate Amino Transf (AST/SGOT) 13, Alanine Aminotransferase (ALT/SGPT) 15, Alkaline Phosphatase 68, Troponin I < 0.028, Total Protein 7.2, Albumin 4.1, Phosphorus Level 2.4, Triglycerides Level 132, Cholesterol Level 151, LDL Cholesterol Direct 109, VLDL Cholesterol 26, HDL Cholesterol 34L 12/21/18 05:08: Glucometer 156H Conclusion/Plan Paroxysmal atrial flutter, history of Linq implantation. Maintained on digoxin, Kimberli. Was seen once in the past by Dr. Grover who discussed medical management versus ablation. Patient opted for medical management. We had long discussion discussing possible need for ablation in future, patient requested to continue with medical management. History of intolerance to amiodarone, seen by Dr. Tilley. Has had increased episodes atrial fibrillation recently on his loop recorder, converted to sinus rhythm on Cardizem, restarted oral Cardizem and planning to discharge home Gastric enteritis, diarrhea, improved, received IV fluid. Feeling better. History of chest pain, has been having neck pain, planning to evaluate stress test. Coronary artery disease-2000 history of CABG x4. 04/18/2012 PTCA and stent placement using bare-metal stent 4.0 x 18 mm integrity to the vein graft to the OM..03/01/2016 cardiac catheterization showing severe instent restenosis in the vein graft to the obtuse marginal branch successful balloon angioplasty using 4.020 mm M or balloon expanded to 4.35 with excellent results. Patent vein graft to the right coronary artery, vein graft to the diagonal artery, AMANDA to the LAD with occluded pauma vessel proximally. Underwent repeat cardiac catheterization on September 22, 2016 after having unstable angina, revealing severe pauma disease, patent graft to the RCA, diagonal, LAD, occluded vein graft to the obtuse marginal branch which was probably the reason for his chest pain. Medical therapy is recommended no intervention was needed. History of intolerance to Brilinta causing increased dyspnea. Sick sinus syndrome, bradycardia at this time, asymptomatic, intolerant to amiodarone and metoprolol. Continue to monitor [id number] score of 5, yearly risk of stroke without oral anticoagulation is 6.7 percent. Maintained on Eliquis History of carotid stenosis, monitored by heart and vascular. Hypertension, had history of episodes of hypotension and dizziness and fatigue, reporting improvement at this time. Continue to monitor Hyperlipidemia, continue to monitor lipids Peripheral vascular disease- intervention in March [address] Mckeon, Angiogram in February 2016 showed total occlusion of the posterior tibial artery and peroneal artery at the trifurcation level reconstructed by collateral down at the ankle with occlusion of the anterior tibial artery at the ankle level, moderate peripheral arterial disease on the left lower extremity down to the trifurcation. Maintained on [place]. Still having claudication but overall expressed that it is not limiting his exercise ability, he is fairly active. He is LISA is significantly abnormal but I am hesitant to proceed with percutaneous intervention for his small vessel disease unless he is symptomatic or having foot ulcers. He was seen by heart and vascular care, repeated LISA on March 15, 2017 and reported to be abnormal but no change from baseline. Continue to monitor Mild bilateral carotid stenosis, nonobstructive disease, ultrasound was done in February 2018, continue to monitor Chronic renal insufficiency, seen by Dr. Tilley, continue to monitor Renal ultrasound was done in May 2018 reported normal kidney sizes bilaterally. History of pancreatitis, another admission in November 2016. Currently feeling better. Continue to monitor Degenerative joint disease Diabetes mellitus, followed and managed by primary care physician BISI GARCIA MD Dec 21, 2018 08:12
[2018-12-21] MEDS ORDERED: CHOL20002 PO (08:22)
[2018-12-21] MEDS ORDERED: CLON0.1T PO (08:22)
[2018-12-21] MEDS ORDERED: ZOLP10TA5 PO (08:22)
[2018-12-21] MEDS ORDERED: TRAZ-222 PO (08:22)
[2018-12-21] MEDS ORDERED: MONT10TA24 PO (08:22)
[2018-12-21] MEDS ORDERED: cloNIDine 0.1 MG (CATAPRES) TAB PO PRN (08:45)
[2018-12-21] MEDS ORDERED: APIXABAN 5 MG (ELIQUIS) TABLET PO SCH (09:00)
[2018-12-21] MEDS ORDERED: DIGOXIN 0.125 MG (LANOXIN) TAB PO SCH (09:00)
[2018-12-21] MEDS ORDERED: DILTIAZEM 120 MG (CARDIZEM CD) CAP PO SCH (09:00)
[2018-12-21] MEDS ORDERED: AMIODARONE 200 MG (CORDARONE) TAB PO SCH ×2 (09:00)
--- NOTE | 2018-12-21 09:30 | NUR ---
CASTRO PADRON demonstrates understanding of discharge instructions and accurately returns instructions upon questioning. Copy of Post-Discharge Instructions and Medication Discharge Instructions given to pt. CASTRO PADRON is able to manage continuing needs after discharge. Patients belongings returned to pt. Skin dry and intact; no breakdown noted. Patient discharged from [facility] on 12/21/18 at 0930. CASTRO PADRON left floor via wc, accompanied by staff/so.
--- NOTE | 2018-12-21 09:51 | Physical Therapy Progress Note ---
Therapy Progress Note PT order received but patient discharged from facility before physical therapy could evaluate him. REN DOCKERY PT Dec 21, 2018 09:51
[2018-12-21] MEDS ORDERED: GABAPENTIN 300 MG (NEURONTIN) CAP PO SCH (21:00)
== END 2018-12-21 08:50 | disposition home or self-care (01) ==
LOC: EDUNIT# 20:15 → ER 20:17 → UNDOADMOB 21:30 → 4TH 21:30 → ICU 22:48 → UNDODISOB 12-21 09:30
PROVIDERS: ADMIT Internal Medicine; ATTEND Internal Medicine
DX: I48.0 Paroxysmal atrial fibrillation (principal); I25.10 Atherosclerotic heart disease of native coronary artery without angina pectoris; E11.9 Type 2 diabetes mellitus without complications; M54.2 Cervicalgia; K52.9 Noninfective gastroenteritis and colitis, unspecified; I10 Essential (primary) hypertension; I73.9 Peripheral vascular disease, unspecified; J44.9 Chronic obstructive pulmonary disease, unspecified; E78.00 Pure hypercholesterolemia, unspecified; I65.29 Occlusion and stenosis of unspecified carotid artery; N18.9 Chronic kidney disease, unspecified; I49.5 Sick sinus syndrome; N40.0 Benign prostatic hyperplasia without lower urinary tract symptoms; K59.09 Other constipation; K21.9 Gastro-esophageal reflux disease without esophagitis; I25.2 Old myocardial infarction; M19.91 Primary osteoarthritis, unspecified site; Z88.0 Allergy status to penicillin; Z88.1 Allergy status to other antibiotic agents; Z79.899 Other long term (current) drug therapy; Z79.4 Long term (current) use of insulin; Z87.891 Personal history of nicotine dependence; Z95.5 Presence of coronary angioplasty implant and graft; Z96.9 Presence of functional implant, unspecified; Z86.010 Personal history of colon polyps; Z79.01 Long term (current) use of anticoagulants; Z87.19 Personal history of other diseases of the digestive system
CPT/HCPCS: 36415; 71045; 80053; 80061; 81000; 82962; 83605; 83690; 83735; 83874; 83880; 84100; 84484; 85025; 85610; 85730; 87040; 87081; 87088; 93005; 96361; 96365; 96375

== ENCOUNTER 2018-12-30 20:35 | Emergency (ER) | payer MEDICARE, MEDICAID ==
[~2018-12-30] VITALS: Ht 185.4 cm; Wt 79.4 kg
[~2018-12-30 20:35] MED LIST changes: +CHOL20002 PO; +CLON0.1T PO; +ZOLP10TA5 PO
[2018-12-30] MEDS ORDERED: ASPIRIN 81 MG CHEW (CHILDREN'S ASA) PO ONE (20:45)
[2018-12-30 21:03] LABS: BASOPHILS % (AUTO) 0 % (0-10); EOSINOPHILS # (AUTO) 0.1 10^3/uL (0.0-0.3); EOSINOPHILS % (AUTO) 1 % (0-10); HEMATOCRIT 35 % (40-54); LYMPHOCYTES # (AUTO) 1.8 X 10^3 (1.0-4.0); LYMPHOCYTES % (AUTO) 31 % (12-44); MEAN CORPUSCULAR HEMOGLOBIN 26 PG (25-34); MEAN CORPUSCULAR HGB CONC 32 G/DL (32-36); MEAN CORPUSCULAR VOLUME 82 FL (80-99); MEAN PLATELET VOLUME 9.8 FL (7.4-10.4); MONOCYTES # (AUTO) 0.4 X 10^3 (0.0-1.0); MONOCYTES % (AUTO) 6 % (0-12); NEUTROPHILS # (AUTO) 3.5 X 10^3 (1.8-7.8); NEUTROPHILS % (AUTO) 61 % (42-75); PLATELET COUNT 297 10^3/uL (130-400); WHITE BLOOD COUNT 5.7 10^3/uL (4.3-11.0)
[2018-12-30 21:20] LABS: INR 1.3 (0.8-1.4)
[2018-12-30 21:24] LABS: ALANINE AMINOTRANSFERASE 13 U/L (0-55); ALBUMIN 4.2 GM/DL (3.2-4.5); ALKALINE PHOSPHATASE 75 U/L (40-136); BILIRUBIN,TOTAL 0.5 MG/DL (0.1-1.0); BUN/CREATININE RATIO 8; CALCIUM 9.6 MG/DL (8.5-10.1); CARBON DIOXIDE 21 MMOL/L (21-32); CHLORIDE 110 MMOL/L (98-107); GFR ESTIMATED 49; GLUCOSE 144 MG/DL (70-105); LIPASE 39 U/L (8-78); POTASSIUM 3.7 MMOL/L (3.6-5.0); SODIUM 141 MMOL/L (135-145); TOTAL PROTEIN 7.4 GM/DL (6.4-8.2)
[2018-12-30] MEDS ORDERED: ANTACID SUSP 30 ML UDC (MYLANTA) ONE (21:35)
[2018-12-30] MEDS ORDERED: LIDOCAINE 2% VISCOUS 15 ML UDC ONE (21:35)
--- NOTE | 2018-12-30 21:37 | Diagnostic Imaging Report ---
INDICATION: Chest pain. Coronary artery disease. COMPARISON: 12/20/2018 FINDINGS: A single view of the chest demonstrates minimal cardiac enlargement. The lungs are clear. Sternal wires are midline. There is no pneumothorax. Cardiac monitoring device is seen on the left. Osseous structures are stable. IMPRESSION: No acute cardiopulmonary findings. Dictated by: Dictated on workstation # [id number]
--- NOTE | 2018-12-30 21:37 | ED Chest Pain ---
General Chief Complaint: Chest Pain Stated Complaint: CHEST PAIN Nursing Triage Note: Pt amb to room #5 w/o difficulty. a&ox4. C/o medical chest discomfort radiating distally to medial abd. Pt reports onset to be approx 2300 on 01/29/19 after reaching to [employer]. Pt states, "its chest pain, but its not really chest pain." Pt states, "My Dr. tells me I shouldn't be reaching like that, but I do it anyway." Nursing Sepsis Screen: No Definite Risk Source: patient Exam Limitations: no limitations History of Present Illness Date Seen by Provider: Dec 30, 2018 Time Seen by Provider: 21:35 Initial Comments To ER with chest pain that began 11 PM last night. He states it's worse with movement, began when reaching to [employer]. 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 NTG SL CRUSHER MACHINE OPERATOR: No Associated Symptoms: denies symptoms Allergies and Home Medications Allergies Coded Allergies: celecoxib (Unverified Allergy, Mild, TAKES ASPIRIN AT HOME, 11/09/18) diclofenac (Unverified Allergy, Mild, TAKES ASPIRIN AT HOME, 11/09/18) naproxen (Unverified Allergy, Mild, TAKES ASPIRIN AT HOME, 11/09/18) rosuvastatin (Unverified Allergy, Mild, 11/09/18) Penicillins (Verified Allergy, Unknown, 11/09/18) amoxicillin (Verified Allergy, Unknown, 11/09/18) fenofibrate (Unverified Allergy, Unknown, 11/09/18) simvastatin (Unverified Allergy, Unknown, 11/09/18) Uncoded Allergies: GEMIFIBOROZIL (Allergy, Unknown, 06/05/16) Home Medications Amiodarone HCl 200 Mg Tablet, 200 MG PO BID, (Reported) Apixaban 5 Mg Tablet, 5 MG PO BID, (Reported) Baclofen 10 Mg Tablet, 10 MG PO TID PRN for MUSCLE SPASMS, (Reported) Cholecalciferol (Vitamin D3) 2,000 Unit Capsule, 2,000 UNIT PO DAILY, (Reported) Clonidine HCl 0.1 Mg Tablet, 0.1 MG PO DAILY PRN for SYSTOLIC BLOOD PRESSURE, (Reported) Digoxin 125 Mcg Tablet, 125 MCG PO DAILY, (Reported) Diltiazem HCl 120 Mg Cap.er.24h, 120 MG PO DAILY Prescribed by: CHARO SCHNEIDER on 11/08/18 1704 Fenofibrate,Micronized 134 Mg Capsule, 134 MG PO DAILY, (Reported) Gabapentin 300 Mg Capsule, 600 MG PO HS, (Reported) TAKES 2 (300 MG) CAPSULES Hyoscyamine Sulfate 0.125 Mg Tab.subl, 1-2 TAB SL Q4H Prescribed by: ROMAIN KNIGHT on 07/31/18 0411 Insulin Detemir 100 Unit/1 Ml Insuln.pen, 25 UNIT SQ BID, (Reported) Montelukast Sodium 10 Mg Tablet, 10 MG PO HS, (Reported) Nitroglycerin 0.4 Mg Tab.subl, 0.4 MG SL UD PRN for CHEST PAIN, (Reported) MAX OF 3 TABS IN 15 MINUTES / CALL 911 IF PAIN REMAINS AFTER 5 MINUTES Pantoprazole Sodium 40 Mg Tablet.dr, 40 MG PO DAILY Prescribed by: RODOLFO GODWIN on 07/24/18 1843 Pentoxifylline 400 Mg Tablet.er, 400 MG PO TID, (Reported) Pravastatin Sodium 80 Mg Tablet, 80 MG PO HS, (Reported) Tamsulosin HCl 0.4 Mg Cap.er.24h, 0.4 MG PO DAILY, (Reported) Topiramate 25 Mg Tablet, 25 MG PO DAILY, (Reported) Trazodone HCl 50 Mg Tablet, 50 MG PO HS, (Reported) Zolpidem Tartrate 10 Mg Tablet, 10 MG PO HS, (Reported) Patient Home Medication List Home Medication List Reviewed: Yes Review of Systems Review of Systems Constitutional: see HPI EENTM: No Symptoms Reported Respiratory: No Symptoms Reported Cardiovascular: See HPI, Chest Pain Gastrointestinal: No Symptoms Reported Genitourinary: No Symptoms Reported Musculoskeletal: no symptoms reported Skin: no symptoms reported Psychiatric/Neurological: No Symptoms Reported Endocrine: No Symptoms Reported (A) Past Catvwen-Tdwmsj-Cgopdw Hx Patient Social History Alcohol Use: Rarely Uses Number of Drinks Today: AA Alcohol Beverage of Choice: Beer Recreational Drug Use: No Smoking Status: Former Smoker Type Used: Cigarettes Former Smoker, Quit: Apr 12, 2000 2nd Hand Smoke Exposure: No Recent Foreign Travel: No Contact w/Someone Who Travel: No Recent Infectious Disease Expo: No Recent Hopitalizations: No Immunizations Up To Date Tetanus Booster (TDap): Less than 5yrs PED Vaccines UTD: No Date of Pneumonia Vaccine: May 22, 2017 Date of Influenza Vaccine: Mar 08, 2018 Seasonal Allergies Seasonal Allergies: No Past Medical History Surgeries: Yes Abdominal, Angioplasty, Cardiac, CABG, Coronary Stent, Eye Surgery, Gallbladder, Joint Replacement, Open Heart Surgery, Orthopedic, Vascular Surgery Respiratory: Yes (CHRONIC DYSPNEA ON EXERTION) Sleep Apnea, COPD Currently Using CPAP: No Currently Using BIPAP: No Cardiac: Yes Atrial Fibrillation, Chronic Edema/Swelling, Coronary Artery Disease, Heart Attack, High Cholesterol, Hypertension, Peripheral Vascular Neurological: Yes (POSSIBLE STROKE/ TIA) Stroke, TIA Reproductive Disorders: No Sexually Transmitted Disease: No HIV/AIDS: No Genitourinary: Yes (RENAL INSUFFICIENCY) Benign Prostatic Hyperpl, Prostate Problems, Renal Failure Gastrointestinal: Yes (GASTROPARESIS) Abdominal Hernia, Gastroesophageal Reflux, Chronic Constipation, Diverticulosis, Pancreatitis, Polyps, Gall Bladder Disease Musculoskeletal: Yes (OLECRANON BURSITIS, CHRONIC NECK PAIN, DISH SYNDROME) Degenerate Disk Disease, Arthritis, Chronic Back Pain Endocrine: Yes Diabetes, Insulin dep HEENT: Yes Cataract Loss of Vision: Denies Hearing Impairment: Denies Cancer: No Psychosocial: Yes Anxiety Integumentary: No Blood Disorders: No Adverse Reaction/Blood Tranf: No Family Medical History Cancer G8 BROTHER Cataract 19 FATHER 19 MOTHER G8 BROTHER G8 BROTHER G8 SISTER Congestive heart failure 19 FATHER 19 MOTHER Family history: Arthritis 19 FATHER 19 MOTHER G8 BROTHER G8 BROTHER G8 SISTER G8 SISTER DAUGHTER SON Family history: Breast disease DAUGHTER Family history: Cardiovascular disease 19 FATHER Family history: Diabetes mellitus 19 FATHER G8 BROTHER G8 SISTER Family history: Hypertension 19 FATHER 19 MOTHER G8 BROTHER G8 BROTHER G8 SISTER G8 SISTER DAUGHTER SON Family history: Thyroid disorder DAUGHTER Heart disease 19 FATHER 19 MOTHER G8 BROTHER Hypercholesterolemia 19 FATHER 19 MOTHER G8 BROTHER G8 BROTHER G8 SISTER Myocardial infarction 19 FATHER 19 MOTHER G8 BROTHER No Family History of: Abdominal aortic aneurysm [place]'s disease Alcoholism Aphasia Cancer of colon Chest pain Congenital heart disease Cystic fibrosis Dementia Dysphagia Family history: Allergy Family history: Alzheimer's disease Family history: Asthma Family history: Coronary thrombosis Family history: Gastrointestinal disease Family history: Glaucoma Family history: Osteoporosis Headache Hearing loss Hereditary disease History of - anemia History of - disorder History of - respiratory disease History of drug abuse Human immunodeficiency virus (HIV) seropositivity Infertile Kidney disease Malignant neoplasm of lung Parkinson's disease Prostate cancer Psychotic disorder Seizure disorder Stroke Tuberculosis Visual impairment Physical Exam Vital Signs Vital Signs - First Documented 12/30/18 20:44 Temp 97.6 Pulse 73 Resp 17 B/P (MAP) 167/95 (119) Pulse Ox 99 O2 Delivery Room Air Capillary Refill : Less Than 3 Seconds Height, Weight, BMI Height: 6'1.00" Weight: 175lbs. 4.0oz. 79.155081yh; 6.0 BMI Method:Stated General Appearance: No Apparent Distress, WD/WN Respiratory: No Accessory Muscle Use, No Respiratory Distress Cardiovascular: Regular Rate, Rhythm, Normal Peripheral Pulses Gastrointestinal: Normal Bowel Sounds, Non Tender, Soft Extremity: Normal Capillary Refill, Normal Inspection Neurologic/Psychiatric: Alert, Oriented x3 Skin: Normal Color, Warm/Dry Progress/Results/Core Measures Results/Orders Lab Results Laboratory Tests Test 12/30/18 20:51 Range/Units White Blood Count 5.7 4.3-11.0 10^3/uL Red Blood Count 4.24 L 4.35-5.85 10^6/uL Hemoglobin 11.0 L 13.3-17.7 G/DL Hematocrit 35 L 40-54 % Mean Corpuscular Volume 82 80-99 FL Mean Corpuscular Hemoglobin 26 25-34 PG Mean Corpuscular Hemoglobin Concent 32 32-36 G/DL Red Cell Distribution Width 15.0 H 10.0-14.5 % Platelet Count 297 130-400 10^3/uL Mean Platelet Volume 9.8 7.4-10.4 FL Neutrophils (%) (Auto) 61 42-75 % Lymphocytes (%) (Auto) 31 12-44 % Monocytes (%) (Auto) 6 0-12 % Eosinophils (%) (Auto) 1 0-10 % Basophils (%) (Auto) 0 0-10 % Neutrophils # (Auto) 3.5 1.8-7.8 X 10^3 Lymphocytes # (Auto) 1.8 1.0-4.0 X 10^3 Monocytes # (Auto) 0.4 0.0-1.0 X 10^3 Eosinophils # (Auto) 0.1 0.0-0.3 10^3/uL Basophils # (Auto) 0.0 0.0-0.1 10^3/uL Prothrombin Time 17.0 H 12.2-14.7 SEC INR Comment 1.3 0.8-1.4 Activated Partial Thromboplast Time 32 24-35 SEC Sodium Level 141 135-145 MMOL/L Potassium Level 3.7 3.6-5.0 MMOL/L Chloride Level 110 H 98-107 MMOL/L Carbon Dioxide Level 21 21-32 MMOL/L Anion Gap 10 5-14 MMOL/L Blood Urea Nitrogen 11 7-18 MG/DL Creatinine 1.40 H 0.60-1.30 MG/DL Estimat Glomerular Filtration Rate 49 BUN/Creatinine Ratio 8 Glucose Level 144 H 70-105 MG/DL Calcium Level 9.6 8.5-10.1 MG/DL Corrected Calcium 9.4 8.5-10.1 MG/DL Magnesium Level 2.0 1.6-2.4 MG/DL Total Bilirubin 0.5 0.1-1.0 MG/DL Aspartate Amino Transf (AST/SGOT) 19 5-34 U/L Alanine Aminotransferase (ALT/SGPT) 13 0-55 U/L Alkaline Phosphatase 75 40-136 U/L Myoglobin 117.4 H 10.0-92.0 NG/ML Troponin I < 0.028 <0.028 NG/ML B-Type Natriuretic Peptide 46.3 <100.0 PG/ML Total Protein 7.4 6.4-8.2 GM/DL Albumin 4.2 3.2-4.5 GM/DL Lipase 39 8-78 U/L My Orders Orders - LEONARDO SALGADO CORRECTIONS SERGEANT Cbc With Automated Diff (12/30/18 20:43) Magnesium (12/30/18 20:43) Chest 1 View, Ap/Pa Only (12/30/18 20:43) Ekg Tracing (12/30/18 20:43) Cardiac Profile 1 (12/30/18 20:43) Comprehensive Metabolic Panel (12/30/18 20:43) Myoglobin Serum (12/30/18 20:43) Protime With Inr (12/30/18 20:43) Partial Thromboplastin Time (12/30/18 20:43) O2 (12/30/18 20:43) Monitor-Rhythm Ecg Trace Only (12/30/18 20:43) Lipid Panel (12/31/18 06:00) Ed Iv/Invasive Line Start (12/30/18 20:43) Lipase (12/30/18 20:43) BNP (12/30/18 20:43) Aspirin Chewable Tablet (Baby Aspirin Ch (12/30/18 20:45) Antacid Suspension (Mylanta Suspension (12/30/18 21:45) Lidocaine 2% Viscous 15 Ml (Xylocaine Vi (12/30/18 21:45) Antacid Suspension (Mylanta Suspension (12/30/18 21:35) Lidocaine 2% Viscous 15 Ml (Xylocaine Vi (12/30/18 21:35) Medications Given in ED Current Medications Medications Dose Ordered Sig/Alka Route Start Time Stop Time Status Last Admin Dose Admin Al Hydrox/Mg Hydrox/Simethicone 30 ml ONCE ONCE PO 12/30/18 21:45 12/30/18 21:46 DC 12/30/18 21:43 30 ML Aspirin 324 mg ONCE ONCE PO 12/30/18 20:45 12/30/18 20:46 DC 12/30/18 20:56 324 MG Lidocaine HCl 15 ml ONCE ONCE PO 12/30/18 21:45 12/30/18 21:46 DC 12/30/18 21:43 15 ML Vital Signs/I&O 12/30/18 12/30/18 20:44 20:44 Temp 97.6 Pulse 73 Resp 17 B/P (MAP) 167/95 (119) Pulse Ox 99 O2 Delivery Room Air Room Air Blood Pressure Mean: 119 Departure Communication (Admissions) 8364-pain completely gone with a GI cocktail Impression Primary Impression: Chest wall pain Disposition: HOME, SELF-CARE (ERASED) Condition: Stable Departure-Patient Inst. Decision time for Depature: 21:37 Referrals: IRAJ HERRERA MD (PCP/Family) Primary Care Physician Patient Instructions: Chest Pain (DC) LEONARDO SALGADO CORRECTIONS SERGEANT Dec 30, 2018 21:37
[2018-12-30] MEDS ORDERED: ANTACID SUSP 30 ML UDC (MYLANTA) PO ONE (21:45)
[2018-12-30] MEDS ORDERED: LIDOCAINE 2% VISCOUS 15 ML UDC PO ONE (21:45)
[2018-12-30 22:12] VITALS: BP 139/84
== END 2018-12-30 22:12 | disposition home or self-care (01) ==
LOC: EDUNIT# 20:35 → ER 20:36
DX: R07.89 Other chest pain (principal); J44.9 Chronic obstructive pulmonary disease, unspecified; G47.30 Sleep apnea, unspecified; E11.65 Type 2 diabetes mellitus with hyperglycemia; I10 Essential (primary) hypertension; E78.00 Pure hypercholesterolemia, unspecified; I25.2 Old myocardial infarction; I25.10 Atherosclerotic heart disease of native coronary artery without angina pectoris; I48.91 Unspecified atrial fibrillation; N40.0 Benign prostatic hyperplasia without lower urinary tract symptoms; K21.9 Gastro-esophageal reflux disease without esophagitis; E11.43 Type 2 diabetes mellitus with diabetic autonomic (poly)neuropathy; K31.84 Gastroparesis; F41.9 Anxiety disorder, unspecified; Z87.19 Personal history of other diseases of the digestive system; Z86.010 Personal history of colon polyps; Z86.73 Personal history of transient ischemic attack (TIA), and cerebral infarction without residual deficits; Z88.1 Allergy status to other antibiotic agents; Z88.5 Allergy status to narcotic agent; Z88.0 Allergy status to penicillin; Z88.8 Allergy status to other drugs, medicaments and biological substances; Z79.4 Long term (current) use of insulin; Z87.891 Personal history of nicotine dependence; Z95.5 Presence of coronary angioplasty implant and graft; Z95.1 Presence of aortocoronary bypass graft; Z82.49 Family history of ischemic heart disease and other diseases of the circulatory system
CPT/HCPCS: 36415; 71045; 80053; 83690; 83735; 83874; 83880; 84484; 85025; 85610; 85730; 93005; 93041

== ENCOUNTER 2019-01-12 16:40 | Emergency (ER) | payer MEDICARE, MEDICAID ==
[~2019-01-12] VITALS: Ht 182.9 cm; Wt 81.6 kg
[2019-01-12] MEDS ORDERED: ASPIRIN 81 MG CHEW (CHILDREN'S ASA) PO ONE (17:00)
[2019-01-12] MEDS ORDERED: DILTIAZEM 25 MG/5 ML INJ (CARDIZEM) VIAL IVP ONE (17:00)
[2019-01-12] MEDS: DILTIAZEM 25 MG/5 ML INJ (CARDIZEM) VIAL ONE ×2 (17:05→17:08)
[2019-01-12] MEDS ORDERED: DILTIAZEM 120 MG (CARDIZEM CD) CAP PO SCH (17:15)
[2019-01-12 17:16] LABS: BASOPHILS % (AUTO) 1 % (0-10); EOSINOPHILS # (AUTO) 0.1 10^3/uL (0.0-0.3); EOSINOPHILS % (AUTO) 2 % (0-10); HEMATOCRIT 36 % (40-54); HEMOGLOBIN 11.1 G/DL (13.3-17.7); LYMPHOCYTES # (AUTO) 1.9 X 10^3 (1.0-4.0); LYMPHOCYTES % (AUTO) 27 % (12-44); MEAN CORPUSCULAR HEMOGLOBIN 25 PG (25-34); MEAN CORPUSCULAR HGB CONC 31 G/DL (32-36); MEAN CORPUSCULAR VOLUME 81 FL (80-99); MEAN PLATELET VOLUME 9.8 FL (7.4-10.4); MONOCYTES # (AUTO) 0.5 X 10^3 (0.0-1.0); MONOCYTES % (AUTO) 8 % (0-12); NEUTROPHILS # (AUTO) 4.2 X 10^3 (1.8-7.8); NEUTROPHILS % (AUTO) 62 % (42-75); PLATELET COUNT 343 10^3/uL (130-400); RED CELL DISTRIBUTION WIDTH 15.1 % (10.0-14.5); WHITE BLOOD COUNT 6.8 10^3/uL (4.3-11.0)
--- NOTE | 2019-01-12 17:17 | ED Cardiac General ---
History of Present Illness General Chief Complaint: Cardiac/General Problems Stated Complaint: FEELS LIKE IN A-FIB AGAIN/HEART RACING Nursing Triage Note: PT AMB TO RM 4 WITH COMPLAINT OF A FIB. Source: patient Exam Limitations: no limitations History of Present Illness Date Seen by Provider: Jan 12, 2019 Time Seen by Provider: 17:15 Initial Comments To ER with reports of A. fib. He has a history of this, is on digoxin, Cartia 120 mg daily, Eliquis. This began earlier this morning after a bowel movement, stated that he developed sensation of palpitations. Timing/Duration: constant Severity: moderate NTG SL PUNCH OUT CREW MEMBER: No ASA po PUNCH OUT CREW MEMBER: No Allergies and Home Medications Allergies Coded Allergies: celecoxib (Unverified Allergy, Mild, TAKES ASPIRIN AT HOME, 11/09/18) diclofenac (Unverified Allergy, Mild, TAKES ASPIRIN AT HOME, 11/09/18) naproxen (Unverified Allergy, Mild, TAKES ASPIRIN AT HOME, 11/09/18) rosuvastatin (Unverified Allergy, Mild, 11/09/18) Penicillins (Verified Allergy, Unknown, 11/09/18) amoxicillin (Verified Allergy, Unknown, 11/09/18) fenofibrate (Unverified Allergy, Unknown, 11/09/18) simvastatin (Unverified Allergy, Unknown, 11/09/18) Uncoded Allergies: GEMIFIBOROZIL (Allergy, Unknown, 06/05/16) Home Medications Amiodarone HCl 200 Mg Tablet, 200 MG PO BID, (Reported) Apixaban 5 Mg Tablet, 5 MG PO BID, (Reported) Baclofen 10 Mg Tablet, 10 MG PO TID PRN for MUSCLE SPASMS, (Reported) Cholecalciferol (Vitamin D3) 2,000 Unit Capsule, 2,000 UNIT PO DAILY, (Reported) Clonidine HCl 0.1 Mg Tablet, 0.1 MG PO DAILY PRN for SYSTOLIC BLOOD PRESSURE, (Reported) Digoxin 125 Mcg Tablet, 125 MCG PO DAILY, (Reported) Diltiazem HCl 120 Mg Cap.er.24h, 120 MG PO DAILY Prescribed by: CHARO SCHNEIDER on 11/08/18 1626 Fenofibrate,Micronized 134 Mg Capsule, 134 MG PO DAILY, (Reported) Gabapentin 300 Mg Capsule, 600 MG PO HS, (Reported) TAKES 2 (300 MG) CAPSULES Hyoscyamine Sulfate 0.125 Mg Tab.subl, 1-2 TAB SL Q4H Prescribed by: ROMAIN KNIGHT on 07/31/18 0411 Insulin Detemir 100 Unit/1 Ml Insuln.pen, 25 UNIT SQ BID, (Reported) Montelukast Sodium 10 Mg Tablet, 10 MG PO HS, (Reported) Nitroglycerin 0.4 Mg Tab.subl, 0.4 MG SL UD PRN for CHEST PAIN, (Reported) MAX OF 3 TABS IN 15 MINUTES / CALL 911 IF PAIN REMAINS AFTER 5 MINUTES Pantoprazole Sodium 40 Mg Tablet.dr, 40 MG PO DAILY Prescribed by: RODOLFO GODWIN on 07/24/18 1843 Pentoxifylline 400 Mg Tablet.er, 400 MG PO TID, (Reported) Pravastatin Sodium 80 Mg Tablet, 80 MG PO HS, (Reported) Tamsulosin HCl 0.4 Mg Cap.er.24h, 0.4 MG PO DAILY, (Reported) Topiramate 25 Mg Tablet, 25 MG PO DAILY, (Reported) Trazodone HCl 50 Mg Tablet, 50 MG PO HS, (Reported) Zolpidem Tartrate 10 Mg Tablet, 10 MG PO HS, (Reported) Patient Home Medication List Home Medication List Reviewed: Yes Review of Systems Review of Systems Constitutional: see HPI EENTM: No Symptoms Reported Respiratory: No Symptoms Reported Cardiovascular: See HPI, Chest Pain Gastrointestinal: See HPI Genitourinary: No Symptoms Reported Musculoskeletal: no symptoms reported Skin: no symptoms reported Psychiatric/Neurological: No Symptoms Reported Endocrine: No Symptoms Reported Hematologic/Lymphatic: No Symptoms Reported Past Wohuqyn-Fjeayx-Wyjzlw Hx Patient Social History Alcohol Use: Occasionally Uses Number of Drinks Today: AA Alcohol Beverage of Choice: Beer Recreational Drug Use: No Smoking Status: Former Smoker Type Used: Cigarettes Former Smoker, Quit: Apr 12, 2000 2nd Hand Smoke Exposure: No Recent Foreign Travel: No Contact w/Someone Who Travel: No Recent Infectious Disease Expo: No Recent Hopitalizations: No Physical Abuse: No Sexual Abuse: No Mistreated: No Fear: No Immunizations Up To Date Tetanus Booster (TDap): Less than 5yrs PED Vaccines UTD: No Date of Pneumonia Vaccine: May 22, 2017 Date of Influenza Vaccine: Mar 08, 2018 Seasonal Allergies Seasonal Allergies: No Past Medical History Surgeries: Yes Abdominal, Angioplasty, Cardiac, CABG, Coronary Stent, Eye Surgery, Gallbladder, Joint Replacement, Open Heart Surgery, Orthopedic, Vascular Surgery Respiratory: Yes (CHRONIC DYSPNEA ON EXERTION) Sleep Apnea, COPD Currently Using CPAP: No Currently Using BIPAP: No Cardiac: Yes Atrial Fibrillation, Chronic Edema/Swelling, Coronary Artery Disease, Heart Attack, High Cholesterol, Hypertension, Peripheral Vascular Neurological: Yes (POSSIBLE STROKE/ TIA) Stroke, TIA Reproductive Disorders: No Sexually Transmitted Disease: No HIV/AIDS: No Genitourinary: Yes (RENAL INSUFFICIENCY) Benign Prostatic Hyperpl, Prostate Problems, Renal Failure Gastrointestinal: Yes (GASTROPARESIS) Abdominal Hernia, Gastroesophageal Reflux, Chronic Constipation, Diverticulosis, Pancreatitis, Polyps, Gall Bladder Disease Musculoskeletal: Yes (OLECRANON BURSITIS, CHRONIC NECK PAIN, DISH SYNDROME) Degenerate Disk Disease, Arthritis, Chronic Back Pain Endocrine: Yes Diabetes, Insulin dep HEENT: Yes Cataract Loss of Vision: Denies Hearing Impairment: Denies Cancer: No Psychosocial: Yes Anxiety Integumentary: No Blood Disorders: No Adverse Reaction/Blood Tranf: No Family Medical History Cancer G8 BROTHER Cataract 19 FATHER 19 MOTHER G8 BROTHER G8 BROTHER G8 SISTER Congestive heart failure 19 FATHER 19 MOTHER Family history: Arthritis 19 FATHER 19 MOTHER G8 BROTHER G8 BROTHER G8 SISTER G8 SISTER DAUGHTER SON Family history: Breast disease DAUGHTER Family history: Cardiovascular disease 19 FATHER Family history: Diabetes mellitus 19 FATHER G8 BROTHER G8 SISTER Family history: Hypertension 19 FATHER 19 MOTHER G8 BROTHER G8 BROTHER G8 SISTER G8 SISTER DAUGHTER SON Family history: Thyroid disorder DAUGHTER Heart disease 19 FATHER 19 MOTHER G8 BROTHER Hypercholesterolemia 19 FATHER 19 MOTHER G8 BROTHER G8 BROTHER G8 SISTER Myocardial infarction 19 FATHER 19 MOTHER G8 BROTHER No Family History of: Abdominal aortic aneurysm [place]'s disease Alcoholism Aphasia Cancer of colon Chest pain Congenital heart disease Cystic fibrosis Dementia Dysphagia Family history: Allergy Family history: Alzheimer's disease Family history: Asthma Family history: Coronary thrombosis Family history: Gastrointestinal disease Family history: Glaucoma Family history: Osteoporosis Headache Hearing loss Hereditary disease History of - anemia History of - disorder History of - respiratory disease History of drug abuse Human immunodeficiency virus (HIV) seropositivity Infertile Kidney disease Malignant neoplasm of lung Parkinson's disease Prostate cancer Psychotic disorder Seizure disorder Stroke Tuberculosis Visual impairment Physical Exam Vital Signs Vital Signs - First Documented 01/12/19 16:50 Pulse 152 Resp 21 B/P (MAP) 139/92 (108) Pulse Ox 98 O2 Delivery Room Air Capillary Refill : Less Than 3 Seconds Height, Weight, BMI Height: 6'0" Weight: 180lbs. 4.0oz. 81.576008sr; 6.0 BMI Method:Stated General Appearance: No Apparent Distress, WD/WN HEENT: PERRL/EOMI, TMs Normal, Normal ENT Inspection Neck: Full Range of Motion, Normal Inspection Respiratory: Normal Breath Sounds, No Accessory Muscle Use, No Respiratory Distress Cardiovascular: Normal Peripheral Pulses, Tachycardia (rate of 150 narrow complex) Gastrointestinal: Non Tender, Soft Neurologic/Psychiatric: Alert, Oriented x3 Skin: Normal Color, Warm/Dry Progress/Results/Core Measures Results/Orders Lab Results Laboratory Tests Test 01/12/19 16:58 Range/Units White Blood Count 6.8 4.3-11.0 10^3/uL Red Blood Count 4.38 4.35-5.85 10^6/uL Hemoglobin 11.1 L 13.3-17.7 G/DL Hematocrit 36 L 40-54 % Mean Corpuscular Volume 81 80-99 FL Mean Corpuscular Hemoglobin 25 25-34 PG Mean Corpuscular Hemoglobin Concent 31 L 32-36 G/DL Red Cell Distribution Width 15.1 H 10.0-14.5 % Platelet Count 343 130-400 10^3/uL Mean Platelet Volume 9.8 7.4-10.4 FL Neutrophils (%) (Auto) 62 42-75 % Lymphocytes (%) (Auto) 27 12-44 % Monocytes (%) (Auto) 8 0-12 % Eosinophils (%) (Auto) 2 0-10 % Basophils (%) (Auto) 1 0-10 % Neutrophils # (Auto) 4.2 1.8-7.8 X 10^3 Lymphocytes # (Auto) 1.9 1.0-4.0 X 10^3 Monocytes # (Auto) 0.5 0.0-1.0 X 10^3 Eosinophils # (Auto) 0.1 0.0-0.3 10^3/uL Basophils # (Auto) 0.0 0.0-0.1 10^3/uL Prothrombin Time 16.5 H 12.2-14.7 SEC INR Comment 1.3 0.8-1.4 Activated Partial Thromboplast Time 33 24-35 SEC Sodium Level 141 135-145 MMOL/L Potassium Level 4.0 3.6-5.0 MMOL/L Chloride Level 111 H 98-107 MMOL/L Carbon Dioxide Level 20 L 21-32 MMOL/L Anion Gap 10 5-14 MMOL/L Blood Urea Nitrogen 11 7-18 MG/DL Creatinine 1.35 H 0.60-1.30 MG/DL Estimat Glomerular Filtration Rate 51 BUN/Creatinine Ratio 8 Glucose Level 147 H 70-105 MG/DL Calcium Level 9.7 8.5-10.1 MG/DL Corrected Calcium 9.5 8.5-10.1 MG/DL Magnesium Level 1.8 1.6-2.4 MG/DL Total Bilirubin 0.4 0.1-1.0 MG/DL Aspartate Amino Transf (AST/SGOT) 11 5-34 U/L Alanine Aminotransferase (ALT/SGPT) 10 0-55 U/L Alkaline Phosphatase 70 40-136 U/L Myoglobin 88.3 10.0-92.0 NG/ML Troponin I < 0.028 <0.028 NG/ML Total Protein 7.1 6.4-8.2 GM/DL Albumin 4.2 3.2-4.5 GM/DL Digoxin Level 0.48 L 0.80-2.00 NG/ML My Orders Orders - LEONARDO SALGADO APRN Diltiazem Injection (Cardizem Injection) (01/12/19 17:00) Cbc With Automated Diff (01/12/19 16:58) Magnesium (01/12/19 16:58) Chest 1 View, Ap/Pa Only (01/12/19 16:58) Ekg Tracing (01/12/19 16:58) Cardiac Profile 1 (01/12/19 16:58) Comprehensive Metabolic Panel (01/12/19 16:58) Myoglobin Serum (01/12/19 16:58) Protime With Inr (01/12/19 16:58) Partial Thromboplastin Time (01/12/19 16:58) O2 (01/12/19 16:58) Monitor-Rhythm Ecg Trace Only (01/12/19 16:58) Lipid Panel (01/13/19 06:00) Ed Iv/Invasive Line Start (01/12/19 16:58) Aspirin Chewable Tablet (Baby Aspirin Ch (01/12/19 17:00) Diltiazem Injection (Cardizem Injection) (01/12/19 16:52) Diltiazem Cd 24 Hr Capsule (Cardizem Cd (01/12/19 17:15) Digoxin (01/12/19 17:09) Medications Given in ED Current Medications Medications Dose Ordered Sig/Alka Route Start Time Stop Time Status Last Admin Dose Admin Aspirin 324 mg ONCE ONCE PO 01/12/19 17:00 01/12/19 17:01 DC 01/12/19 17:08 324 MG Diltiazem HCl 10 mg ONCE ONCE IVP 01/12/19 17:00 01/12/19 17:01 DC 01/12/19 17:00 10 MG Vital Signs/I&O 01/12/19 16:50 Pulse 152 Resp 21 B/P (MAP) 139/92 (108) Pulse Ox 98 O2 Delivery Room Air Blood Pressure Mean: 108 Departure Communication (Admissions) Patient reports he will not stay in the hospital. Fortunately, after 10 mg of Cardizem IV. Heart rate reduced from 154 down to about 100 still atrial fibrillation. 1814- heart rate 75 sinus blood pressure 105/73. Discussed with Dr. Stiles, we will send home. Impression Primary Impression: Atrial flutter with rapid ventricular response Additional Impression: Atrial fibrillation Disposition: HOME, SELF-CARE Condition: Stable Departure-Patient Inst. Decision time for Depature: 17:23 Referrals: IRAJ HERRERA MD (PCP/Family) Primary Care Physician Patient Instructions: Atrial Fibrillation (DC) LEONARDO SALGADO APRN Jan 12, 2019 17:17
[2019-01-12 17:26] LABS: INR 1.3 (0.8-1.4); PROTHROMBIN TIME PATIENT 16.5 SEC (12.2-14.7)
[2019-01-12 17:37] LABS: ALANINE AMINOTRANSFERASE 10 U/L (0-55); ALBUMIN 4.2 GM/DL (3.2-4.5); ALKALINE PHOSPHATASE 70 U/L (40-136); BILIRUBIN,TOTAL 0.4 MG/DL (0.1-1.0); BUN/CREATININE RATIO 8; CALCIUM 9.7 MG/DL (8.5-10.1); CARBON DIOXIDE 20 MMOL/L (21-32); CHLORIDE 111 MMOL/L (98-107); CREATININE SERUM 1.35 MG/DL (0.60-1.30); GFR ESTIMATED 51; GLUCOSE 147 MG/DL (70-105); MAGNESIUM 1.8 MG/DL (1.6-2.4); SODIUM 141 MMOL/L (135-145); TOTAL PROTEIN 7.1 GM/DL (6.4-8.2)
--- NOTE | 2019-01-12 17:42 | Diagnostic Imaging Report ---
INDICATION: Atrial fibrillation. EXAMINATION: Upright chest was obtained. FINDINGS: Normal heart size and vascularity. The lungs are clear. There is no effusion or pneumothorax. There is no acute bony abnormality. Cardiac monitoring device is present. There are changes of prior CABG. IMPRESSION: No acute abnormality is seen with no change from 12/30/2018. Dictated by: Dictated on workstation # [id number]
[2019-01-12 18:45] VITALS: BP 119/76
== END 2019-01-12 18:45 | disposition home or self-care (01) ==
LOC: EDUNIT# 16:40 → ER 16:41
DX: I48.92 Unspecified atrial flutter (principal); I48.91 Unspecified atrial fibrillation; J44.9 Chronic obstructive pulmonary disease, unspecified; G47.30 Sleep apnea, unspecified; I25.10 Atherosclerotic heart disease of native coronary artery without angina pectoris; I25.2 Old myocardial infarction; E78.00 Pure hypercholesterolemia, unspecified; I10 Essential (primary) hypertension; E11.51 Type 2 diabetes mellitus with diabetic peripheral angiopathy without gangrene; N40.0 Benign prostatic hyperplasia without lower urinary tract symptoms; E11.43 Type 2 diabetes mellitus with diabetic autonomic (poly)neuropathy; K31.84 Gastroparesis; K21.9 Gastro-esophageal reflux disease without esophagitis; F41.9 Anxiety disorder, unspecified; Z86.010 Personal history of colon polyps; Z87.19 Personal history of other diseases of the digestive system; Z86.73 Personal history of transient ischemic attack (TIA), and cerebral infarction without residual deficits; Z79.01 Long term (current) use of anticoagulants; Z88.1 Allergy status to other antibiotic agents; Z88.5 Allergy status to narcotic agent; Z88.0 Allergy status to penicillin; Z79.4 Long term (current) use of insulin; Z95.1 Presence of aortocoronary bypass graft; Z95.5 Presence of coronary angioplasty implant and graft; Z82.49 Family history of ischemic heart disease and other diseases of the circulatory system
CPT/HCPCS: 36415; 71045; 80053; 80162; 83735; 83874; 84484; 85025; 85610; 85730; 93005; 93041

== ENCOUNTER 2019-01-23 08:43 | Emergency (ER) | payer MEDICARE, MEDICAID ==
[~2019-01-23] VITALS: Ht 182 cm; Wt 73.0 kg
[2019-01-23] MEDS ORDERED: fentaNYL INJECTION 100 MCG/2 ML AMP IVP ONE ×2 (09:00→10:45)
[2019-01-23 09:17] LABS: BASOPHILS % (AUTO) 1 % (0-10); EOSINOPHILS # (AUTO) 0.1 10^3/uL (0.0-0.3); EOSINOPHILS % (AUTO) 3 % (0-10); HEMATOCRIT 32 % (40-54); HEMOGLOBIN 10.3 G/DL (13.3-17.7); LYMPHOCYTES # (AUTO) 1.6 X 10^3 (1.0-4.0); LYMPHOCYTES % (AUTO) 29 % (12-44); MEAN CORPUSCULAR HEMOGLOBIN 26 PG (25-34); MEAN CORPUSCULAR HGB CONC 32 G/DL (32-36); MEAN CORPUSCULAR VOLUME 81 FL (80-99); MEAN PLATELET VOLUME 9.7 FL (7.4-10.4); MONOCYTES # (AUTO) 0.4 X 10^3 (0.0-1.0); MONOCYTES % (AUTO) 8 % (0-12); NEUTROPHILS # (AUTO) 3.2 X 10^3 (1.8-7.8); NEUTROPHILS % (AUTO) 59 % (42-75); PLATELET COUNT 351 10^3/uL (130-400); RED CELL DISTRIBUTION WIDTH 15.2 % (10.0-14.5); WHITE BLOOD COUNT 5.4 10^3/uL (4.3-11.0)
[2019-01-23 09:29] LABS: ALBUMIN 4.2 GM/DL (3.2-4.5); BILIRUBIN,TOTAL 0.5 MG/DL (0.1-1.0); CREATININE SERUM 1.42 MG/DL (0.60-1.30); MAGNESIUM 1.8 MG/DL (1.6-2.4); POTASSIUM 3.8 MMOL/L (3.6-5.0); TOTAL PROTEIN 7.2 GM/DL (6.4-8.2)
[2019-01-23] MEDS ORDERED: NS IV 1000 ML 1,000 ML IV ONE (09:31)
[2019-01-23] MEDS ORDERED: HOLD METFORMIN - RECEIVED CONTRAST 20 ML VIAL IV SCH (09:45)
[2019-01-23] MEDS ORDERED: IOHEXOL 350 MG/ML 100 ML (OMNIPAQUE 350) VIAL IV ONE (09:45)
[2019-01-23] MEDS ORDERED: CATHETER FLUSH 10 ML SYR IV PRN (09:45)
[2019-01-23] MEDS ORDERED: NS 100 ML (IVPB) BAG IV ONE (09:45)
--- NOTE | 2019-01-23 10:11 | Diagnostic Imaging Report ---
INDICATION: Left-sided neck pain. Generalized weakness. TECHNIQUE: Routine non contrast-enhanced axial images were obtained from the skull base to the vertex. Auto Exposure Controls were utilized during the CT exam to meet ALARA standards for radiation dose reduction COMPARISON: 06/23/2018 FINDINGS: The ventricles and cortical sulci are diffusely prominent, compatible with age-related volume loss. There are confluent areas of abnormal, low attenuation in the periventricular white matter. This is consistent with chronic small vessel ischemic changes. There is no midline shift or mass-effect. No acute intra-axial hemorrhage is seen. There are no abnormal areas of increased or decreased density to suggest acute hemorrhage or edema. No extra-axial masses or collections are present. The bony calvarium is intact. The visualized paranasal sinuses are unremarkable. The mastoid air cells are clear. IMPRESSION: 1. No acute intracranial abnormality. No CT evidence of mass, acute infarct or intracranial hemorrhage. 2. Chronic small vessel ischemic changes in the deep white matter. Dictated by: Dictated on workstation # [id number]
--- NOTE | 2019-01-23 10:24 | Diagnostic Imaging Report ---
PROCEDURE: CT neck soft tissue with contrast. TECHNIQUE: Multiple contiguous axial images were obtained through the neck after the administration of contrast. Auto Exposure Controls were utilized during the CT exam to meet ALARA standards for radiation dose reduction. INDICATION: Headache, left-sided neck pain. There are no prior CT neck examinations available for comparison. There is no mass or adenopathy involving the neck. The submandibular glands and the parotid gland seems symmetrical. The thyroid gland is homogeneous and not enlarged. There is heavy atherosclerotic plaque involving the carotid bifurcation on the right. This does seem somewhat more conspicuous than on the prior CT neck exam of 06/21/2017. There may be hemodynamically significant stenosis in this area. A carotid Doppler exam would be recommended for further study. The atherosclerotic disease involving the left carotid bifurcation is less prominent than on the right. As noted on the previous CT cervical spine exam, there is extensive calcification of the anterior longitudinal ligament. There is no acute bony abnormality. The lung apices are clear. The intracranial contents were visualized and unremarkable. IMPRESSION: 1. There is no mass or adenopathy identified. There is no sign of acute abnormality. 2. There is dense atherosclerotic plaque involving the carotid bifurcation on the right and there may be a hemodynamically significant stenosis in this area. A carotid Doppler exam would be recommended for further study. 3. There is extensive calcification of the anterior longitudinal ligament. There is no acute bony abnormality evident. Dictated by: Dictated on workstation # [id number]
[2019-01-23] MEDS ORDERED: CYCL10TA9 PO (10:43)
[2019-01-23] MEDS ORDERED: TRAM-42 PO (10:43)
--- NOTE | 2019-01-23 10:44 | ED Neck-Back Pain/Injury ---
General Chief Complaint: Head/Cervical Problems Stated Complaint: WEAKNESS;NECK PAIN Nursing Triage Note: PT PRESENTS TO ED VIA EMS FROM HOME WITH COMPLAINTS OF NECK PAIN THAT WOKE HIM FROM HIS SLEEP THIS AM. PT REPORTS PT IS MORE LETHARGIC THAN NORMAL AND HAS SOME GENERAL WEAKNESS. Nursing Sepsis Screen: No Definite Risk Source of Information: Patient Exam Limitations: No Limitations History of Present Illness Date Seen by Provider: Jan 23, 2019 Time Seen by Provider: 08:45 Initial Comments This 78-year-old gentleman presents to the emergency room via EMS after developing severe left posterior neck pain. There was also concerned about altered mental status. reported he seemed lethargic. Patient is technically alert and oriented but seems very distracted by his pain. He denies any injury. Patient also reports he has had some discomfort in the anterior neck with some difficulty swallowing. He is following with Dr. Bee to have this assessed. He denies any drug or alcohol use. Allergies and Home Medications Allergies Coded Allergies: celecoxib (Unverified Allergy, Mild, TAKES ASPIRIN AT HOME, 11/09/18) diclofenac (Unverified Allergy, Mild, TAKES ASPIRIN AT HOME, 11/09/18) naproxen (Unverified Allergy, Mild, TAKES ASPIRIN AT HOME, 11/09/18) rosuvastatin (Unverified Allergy, Mild, 11/09/18) Penicillins (Verified Allergy, Unknown, 11/09/18) amoxicillin (Verified Allergy, Unknown, 11/09/18) fenofibrate (Unverified Allergy, Unknown, 11/09/18) simvastatin (Unverified Allergy, Unknown, 11/09/18) Uncoded Allergies: GEMIFIBOROZIL (Allergy, Unknown, 06/05/16) Home Medications Amiodarone HCl 200 Mg Tablet, 200 MG PO BID, (Reported) Apixaban 5 Mg Tablet, 5 MG PO BID, (Reported) Baclofen 10 Mg Tablet, 10 MG PO TID PRN for MUSCLE SPASMS, (Reported) Cholecalciferol (Vitamin D3) 2,000 Unit Capsule, 2,000 UNIT PO DAILY, (Reported) Clonidine HCl 0.1 Mg Tablet, 0.1 MG PO DAILY PRN for SYSTOLIC BLOOD PRESSURE, (Reported) Cyclobenzaprine HCl 10 Mg Tablet, 10 MG PO TID PRN for SPASMS Prescribed by: RODOLFO GODWIN on 01/23/19 1043 Digoxin 125 Mcg Tablet, 125 MCG PO DAILY, (Reported) Diltiazem HCl 120 Mg Cap.er.24h, 120 MG PO DAILY Prescribed by: CHARO SCHNEIDER on 11/08/18 1704 Fenofibrate,Micronized 134 Mg Capsule, 134 MG PO DAILY, (Reported) Gabapentin 300 Mg Capsule, 600 MG PO HS, (Reported) TAKES 2 (300 MG) CAPSULES Hyoscyamine Sulfate 0.125 Mg Tab.subl, 1-2 TAB SL Q4H Prescribed by: ROMAIN KNIGHT on 07/31/18 0411 Insulin Detemir 100 Unit/1 Ml Insuln.pen, 25 UNIT SQ BID, (Reported) Montelukast Sodium 10 Mg Tablet, 10 MG PO HS, (Reported) Nitroglycerin 0.4 Mg Tab.subl, 0.4 MG SL UD PRN for CHEST PAIN, (Reported) MAX OF 3 TABS IN 15 MINUTES / CALL 911 IF PAIN REMAINS AFTER 5 MINUTES Pantoprazole Sodium 40 Mg Tablet.dr, 40 MG PO DAILY Prescribed by: RODOLFO GODWIN on 07/24/18 1843 Pentoxifylline 400 Mg Tablet.er, 400 MG PO TID, (Reported) Pravastatin Sodium 80 Mg Tablet, 80 MG PO HS, (Reported) Tamsulosin HCl 0.4 Mg Cap.er.24h, 0.4 MG PO DAILY, (Reported) Topiramate 25 Mg Tablet, 25 MG PO DAILY, (Reported) Tramadol HCl 50 Mg Tablet, 25-50 MG PO Q6H PRN for PAIN-MODERATE Prescribed by: RODOLFO GODWIN on 01/23/19 1043 Trazodone HCl 50 Mg Tablet, 50 MG PO HS, (Reported) Zolpidem Tartrate 10 Mg Tablet, 10 MG PO HS, (Reported) Patient Home Medication List Home Medication List Reviewed: Yes Review of Systems Constitutional: no symptoms reported EENTM: no symptoms reported Respiratory: no symptoms reported Cardiovascular: no symptoms reported Gastrointestinal: no symptoms reported Genitourinary: no symptoms reported Musculoskeletal: see HPI Skin: no symptoms reported Psychiatric/Neurological: See HPI Past Uwgeiqk-Judhho-Iaqwrf Hx Past Med/Social Hx: Reviewed Nursing Past Med/Soc Hx Patient Social History Alcohol Use: Denies Use Number of Drinks Today: AA Alcohol Beverage of Choice: Beer Recreational Drug Use: No Type Used: Cigarettes Former Smoker, Quit: Apr 12, 2000 2nd Hand Smoke Exposure: No Recent Foreign Travel: No Contact w/Someone Who Travel: No Recent Infectious Disease Expo: No Recent Hopitalizations: No Physical Abuse: No Sexual Abuse: No Mistreated: No Fear: No Immunizations Up To Date Tetanus Booster (TDap): Less than 5yrs PED Vaccines UTD: No Date of Pneumonia Vaccine: May 22, 2017 Date of Influenza Vaccine: Mar 08, 2018 Seasonal Allergies Seasonal Allergies: No Past Medical History Surgeries: Yes Abdominal, Angioplasty, Cardiac, CABG, Coronary Stent, Eye Surgery, Gallbladder, Joint Replacement, Open Heart Surgery, Orthopedic, Vascular Surgery Respiratory: Yes (CHRONIC DYSPNEA ON EXERTION) Sleep Apnea, COPD Currently Using CPAP: No Currently Using BIPAP: No Cardiac: Yes Atrial Fibrillation, Chronic Edema/Swelling, Coronary Artery Disease, Heart Attack, High Cholesterol, Hypertension, Peripheral Vascular Neurological: Yes (POSSIBLE STROKE/ TIA) Stroke, TIA Reproductive Disorders: No Sexually Transmitted Disease: No HIV/AIDS: No Genitourinary: Yes (RENAL INSUFFICIENCY) Benign Prostatic Hyperpl, Prostate Problems, Renal Failure Gastrointestinal: Yes (GASTROPARESIS) Abdominal Hernia, Gastroesophageal Reflux, Chronic Constipation, Diverticulosis, Pancreatitis, Polyps, Gall Bladder Disease Musculoskeletal: Yes (OLECRANON BURSITIS, CHRONIC NECK PAIN, DISH SYNDROME) Degenerate Disk Disease, Arthritis, Chronic Back Pain Endocrine: Yes Diabetes, Insulin dep HEENT: Yes Cataract Loss of Vision: Denies Hearing Impairment: Denies Cancer: No Psychosocial: Yes Anxiety Integumentary: No Blood Disorders: No Adverse Reaction/Blood Tranf: No Family Medical History Cancer G8 BROTHER Cataract 19 FATHER 19 MOTHER G8 BROTHER G8 BROTHER G8 SISTER Congestive heart failure 19 FATHER 19 MOTHER Family history: Arthritis 19 FATHER 19 MOTHER G8 BROTHER G8 BROTHER G8 SISTER G8 SISTER DAUGHTER SON Family history: Breast disease DAUGHTER Family history: Cardiovascular disease 19 FATHER Family history: Diabetes mellitus 19 FATHER G8 BROTHER G8 SISTER Family history: Hypertension 19 FATHER 19 MOTHER G8 BROTHER G8 BROTHER G8 SISTER G8 SISTER DAUGHTER SON Family history: Thyroid disorder DAUGHTER Heart disease 19 FATHER 19 MOTHER G8 BROTHER Hypercholesterolemia 19 FATHER 19 MOTHER G8 BROTHER G8 BROTHER G8 SISTER Myocardial infarction 19 FATHER 19 MOTHER G8 BROTHER No Family History of: Abdominal aortic aneurysm Castro's disease Alcoholism Aphasia Cancer of colon Chest pain Congenital heart disease Cystic fibrosis Dementia Dysphagia Family history: Allergy Family history: Alzheimer's disease Family history: Asthma Family history: Coronary thrombosis Family history: Gastrointestinal disease Family history: Glaucoma Family history: Osteoporosis Headache Hearing loss Hereditary disease History of - anemia History of - disorder History of - respiratory disease History of drug abuse Human immunodeficiency virus (HIV) seropositivity Infertile Kidney disease Malignant neoplasm of lung Parkinson's disease Prostate cancer Psychotic disorder Seizure disorder Stroke Tuberculosis Visual impairment Physical Exam Vital Signs Vital Signs - First Documented 01/23/19 08:53 Temp 36.1 Pulse 93 Resp 16 B/P (MAP) 161/100 (120) Pulse Ox 98 Capillary Refill : Less Than 3 Seconds Height, Weight, BMI Height: 6'0" Weight: 180lbs. 4.0oz. 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 Norm as Tested Skin: Normal Color, Warm/Dry Progress/Results/Core Measures Results/Orders Lab Results Laboratory Tests Test 01/23/19 08:59 01/23/19 10:59 Range/Units White Blood Count 5.4 4.3-11.0 10^3/uL Red Blood Count 3.98 L 4.35-5.85 10^6/uL Hemoglobin 10.3 L 13.3-17.7 G/DL Hematocrit 32 L 40-54 % Mean Corpuscular Volume 81 80-99 FL Mean Corpuscular Hemoglobin 26 25-34 PG Mean Corpuscular Hemoglobin Concent 32 32-36 G/DL Red Cell Distribution Width 15.2 H 10.0-14.5 % Platelet Count 351 130-400 10^3/uL Mean Platelet Volume 9.7 7.4-10.4 FL Neutrophils (%) (Auto) 59 42-75 % Lymphocytes (%) (Auto) 29 12-44 % Monocytes (%) (Auto) 8 0-12 % Eosinophils (%) (Auto) 3 0-10 % Basophils (%) (Auto) 1 0-10 % Neutrophils # (Auto) 3.2 1.8-7.8 X 10^3 Lymphocytes # (Auto) 1.6 1.0-4.0 X 10^3 Monocytes # (Auto) 0.4 0.0-1.0 X 10^3 Eosinophils # (Auto) 0.1 0.0-0.3 10^3/uL Basophils # (Auto) 0.0 0.0-0.1 10^3/uL Sodium Level 139 135-145 MMOL/L Potassium Level 3.8 3.6-5.0 MMOL/L Chloride Level 110 H 98-107 MMOL/L Carbon Dioxide Level 22 21-32 MMOL/L Anion Gap 7 5-14 MMOL/L Blood Urea Nitrogen 10 7-18 MG/DL Creatinine 1.42 H 0.60-1.30 MG/DL Estimat Glomerular Filtration Rate 48 BUN/Creatinine Ratio 7 Glucose Level 166 H 70-105 MG/DL Calcium Level 10.0 8.5-10.1 MG/DL Corrected Calcium 9.8 8.5-10.1 MG/DL Magnesium Level 1.8 1.6-2.4 MG/DL Total Bilirubin 0.5 0.1-1.0 MG/DL Aspartate Amino Transf (AST/SGOT) 14 5-34 U/L Alanine Aminotransferase (ALT/SGPT) 9 0-55 U/L Alkaline Phosphatase 76 40-136 U/L Total Protein 7.2 6.4-8.2 GM/DL Albumin 4.2 3.2-4.5 GM/DL Digoxin Level 0.90 0.80-2.00 NG/ML Urine Color YELLOW Urine Clarity CLEAR Urine pH 8 5-9 Urine Specific Corder 1.010 L 1.016-1.022 Urine Protein 1+ H NEGATIVE Urine Glucose (UA) NEGATIVE NEGATIVE Urine Ketones NEGATIVE NEGATIVE Urine Nitrite NEGATIVE NEGATIVE Urine Bilirubin NEGATIVE NEGATIVE Urine Urobilinogen NORMAL NORMAL MG/DL Urine Leukocyte Esterase NEGATIVE NEGATIVE Urine RBC (Auto) NEGATIVE NEGATIVE Urine RBC NONE /HPF Urine WBC NONE /HPF Urine Crystals NONE /LPF Urine Bacteria NEGATIVE /HPF Urine Casts NONE /LPF Urine Mucus NEGATIVE /LPF Urine Culture Indicated NO My Orders Orders - RODOLFO CUELLO MD Cbc With Automated Diff (01/23/19 08:56) Comprehensive Metabolic Panel (01/23/19 08:56) Digoxin (01/23/19 08:56) Magnesium (01/23/19 08:56) Ua Culture If Indicated (01/23/19 08:56) Ed Iv/Invasive Line Start (01/23/19 08:56) Fentanyl Injection (Sublimaze Injection (01/23/19 09:00) Ct Head Wo (01/23/19 09:06) Ct Neck (Soft Tissue) W (01/23/19 09:06) Ns Iv 1000 Ml (Sodium Chloride 0.9%) (01/23/19 09:31) Iohexol Injection (Omnipaque 350 Mg/Ml 1 (01/23/19 09:45) Received Contrast (Hold Metformin- Contr (01/23/19 09:45) Sodium Chloride Flush (Catheter Flush Sy (01/23/19 09:45) Ns (Ivpb) (Sodium Chloride 0.9% Ivpb Bag (01/23/19 09:45) Fentanyl Injection (Sublimaze Injection (01/23/19 10:45) Medications Given in ED Current Medications Medications Dose Ordered Sig/Alka Route Start Time Stop Time Status Last Admin Dose Admin Fentanyl Citrate 25 mcg ONCE ONCE IVP 01/23/19 09:00 01/23/19 09:01 DC 01/23/19 09:04 25 MCG Fentanyl Citrate 50 mcg ONCE ONCE IVP 01/23/19 10:45 01/23/19 10:46 DC 01/23/19 10:57 50 MCG Iohexol 75 ml ONCE ONCE IV 01/23/19 09:45 01/23/19 09:47 DC 01/23/19 09:48 60 ML Sodium Chloride 10 ml NEEDED PRN IV 01/23/19 09:45 01/23/19 11:24 DC 01/23/19 09:48 10 ML Sodium Chloride 100 ml ONCE ONCE IV 01/23/19 09:45 01/23/19 09:47 DC 01/23/19 09:48 80 ML Sodium Chloride 1,000 ml @ 0 mls/hr Q0M ONCE IV 01/23/19 09:31 01/23/19 09:33 DC 01/23/19 10:20 0 MLS/HR Vital Signs/I&O 01/23/19 01/23/19 08:53 11:24 Temp 36.1 Pulse 93 85 Resp 16 16 B/P (MAP) 161/100 (120) 150/84 Pulse Ox 98 98 Blood Pressure Mean: 120 Progress Progress Note : Progress Note Patient's pain was treated with fentanyl. NSAIDs were not used due to anticoagulant use. Because of his complaints of dysphagia and had severe pain CT scan was ordered. His creatinine was mildly elevated so he was therefore hydrated with IV fluids. CT demonstrated chronic changes but no acute abnormalities. There is incidental right-sided carotid stenosis noted. Patient states he has ultrasound studies of the carotids performed by Dr. St[facility] clinic on a routine basis. He will follow-up there. Diagnostic Imaging Diagonstic Imaging: CT Plain Films/CT/US/NM/MRI: head Comments CT head viewed by me and report reviewed. See report below: NAME: CASTRO PADRON [facility] REC#: [id number] PT STATUS: DEP ER : 1940 PHYSICIAN: RODOLFO CUELLO MD ADMIT DATE: 01/23/19/ER Signed Date of Exam: 01/23/19 CT HEAD WO INDICATION: Left-sided neck pain. Generalized weakness. TECHNIQUE: Routine non contrast-enhanced axial images were obtained from the skull base to the vertex. Auto Exposure Controls were utilized during the CT exam to meet ALARA standards for radiation dose reduction COMPARISON: 06/23/2018 FINDINGS: The ventricles and cortical sulci are diffusely prominent, compatible with age-related volume loss. There are confluent areas of abnormal, low attenuation in the periventricular white matter. This is consistent with chronic small vessel ischemic changes. There is no midline shift or mass-effect. No acute intra-axial hemorrhage is seen. There are no abnormal areas of increased or decreased density to suggest acute hemorrhage or edema. No extra-axial masses or collections are present. The bony calvarium is intact. The visualized paranasal sinuses are unremarkable. The mastoid air cells are clear. IMPRESSION: 1. No acute intracranial abnormality. No CT evidence of mass, acute infarct or intracranial hemorrhage. 2. Chronic small vessel ischemic changes in the deep white matter. Dictated by: Dictated on workstation # [id number] Dict: 01/23/19 0958 Trans: 01/23/191629 Interpreted by: FIDE CANTU MD Electronically signed by: FIDE CANTU MD 01/23/19 163 Diagonstic Imaging: CT Plain Films/CT/US/NM/MRI: other (Soft tissues neck) Comments CT soft tissues neck viewed by me and report reviewed. See report below: NAME: CASTRO PADRON [facility] REC#: [id number] PT STATUS: REG ER : 1940 PHYSICIAN: RODOLFO CUELLO MD ADMIT DATE: 01/23/19/ER Draft Date of Exam:01/23/19 CT NECK (SOFT TISSUE) W PROCEDURE: CT neck soft tissue with contrast. TECHNIQUE: Multiple contiguous axial images were obtained through the neck after the administration of contrast. Auto Exposure Controls were utilized during the CT exam to meet ALARA standards for radiation dose reduction. INDICATION: Headache, left-sided neck pain. There are no prior CT neck examinations available for comparison. There is no mass or adenopathy involving the neck. The submandibular glands and the parotid gland seems symmetrical. The thyroid gland is homogeneous and not enlarged. There is heavy atherosclerotic plaque involving the carotid bifurcation on the right. This does seem somewhat more conspicuous than on the prior CT neck exam of 06/21/2017. There may be hemodynamically significant stenosis in this area. A carotid Doppler exam would be recommended for further study. The atherosclerotic disease involving the left carotid bifurcation is less prominent than on the right. As noted on the previous CT cervical spine exam, there is extensive calcification of the anterior longitudinal ligament. There is no acute bony abnormality. The lung apices are clear. The intracranial contents were visualized and unremarkable. IMPRESSION: 1. There is no mass or adenopathy identified. There is no sign of acute abnormality. 2. There is dense atherosclerotic plaque involving the carotid bifurcation on the right and there may be a hemodynamically significant stenosis in this area. A carotid Doppler exam would be recommended for further study. 3. There is extensive calcification of the anterior longitudinal ligament. There is no acute bony abnormality evident. Dictated on workstation # [id number] Dict: 01/23/1956 Trans: 01/23/19 1023 [facility] [id number] Interpreted by: ARIAS SHEPHERD MD Departure Impression Primary Impression: Neck pain Additional Impressions: Dysphagia Qualified Codes: R13.10 - Dysphagia, unspecified Altered mental status Qualified Codes: R41.82 - Altered mental status, unspecified Carotid stenosis, right Disposition: 01 HOME, SELF-CARE Condition: Improved Departure-Patient Inst. Decision time for Depature: 10:40 Referrals: IRAJ HERRERA MD (PCP/Family) Primary Care Physician Patient Instructions: Carotid Artery Stenosis (DC) Add. Discharge Instructions: For mild pain you may take Tylenol (acetaminophen) (up to 1000 mg every 6 hours as needed. Add Ultram (tramadol) as prescribed for more severe pain. Gentle heat such as a heating pad on a low setting may also be helpful to relax muscles in your neck. If you have muscle spasms, use cyclobenzaprine as prescribed. Use Ultram and cyclobenzaprine with caution as they may cause drowsiness. Follow-up with your primary care provider soon as possible. Please also follow-up with Dr. Stiles regarding your carotid stenosis. This needs to be followed with regular ultrasounds and a referral to vascular surgeon should be made if it becomes severe. Return to the emergency room if you have worsening symptoms. All discharge instructions reviewed with patient and/or family. Voiced understanding. Scripts Cyclobenzaprine HCl (Cyclobenzaprine HCl) 10 Mg Tablet 10 MG PO TID PRN for SPASMS, #10 TAB Prov: RODOLFO CUELLO MD 01/23/19 Tramadol HCl (Ultram) 50 Mg Tablet 25-50 MG PO Q6H PRN for PAIN-MODERATE, #10 TAB Prov: RODOLFO CUELLO MD 01/23/19 Copy Copies To 1: SARAH BEE MD Copies To 2: BISI STILES MD, JOSHUA T MD Jan 23, 2019 10:43
[2019-01-23 11:04] LABS: BILIRUBIN,URINE NEGATIVE (NEGATIVE); CLARITY,URINE CLEAR; COLOR,URINE YELLOW; GLUCOSE, URINE (UA) NEGATIVE (NEGATIVE); KETONES,URINE NEGATIVE (NEGATIVE); LEUKOCYTE ESTERASE ,URINE NEGATIVE (NEGATIVE); NITRITE,URINE NEGATIVE (NEGATIVE); PH,URINE 8 (5-9); PROTEIN,URINE 1+ (NEGATIVE); UROBILINOGEN,URINE NORMAL (NORMAL)
[2019-01-23 11:12] LABS: BACTERIA,URINE NEGATIVE /HPF
[2019-01-23 11:24] VITALS: BP 150/84
== END 2019-01-23 11:24 | disposition home or self-care (01) ==
LOC: EDUNIT# 08:43 → ER 08:45
DX: I65.21 Occlusion and stenosis of right carotid artery (principal); M54.2 Cervicalgia; R13.10 Dysphagia, unspecified; R41.82 Altered mental status, unspecified; J44.9 Chronic obstructive pulmonary disease, unspecified; G47.30 Sleep apnea, unspecified; I48.91 Unspecified atrial fibrillation; I25.10 Atherosclerotic heart disease of native coronary artery without angina pectoris; I25.2 Old myocardial infarction; E78.00 Pure hypercholesterolemia, unspecified; I10 Essential (primary) hypertension; E11.51 Type 2 diabetes mellitus with diabetic peripheral angiopathy without gangrene; E11.43 Type 2 diabetes mellitus with diabetic autonomic (poly)neuropathy; K31.84 Gastroparesis; N40.0 Benign prostatic hyperplasia without lower urinary tract symptoms; K21.9 Gastro-esophageal reflux disease without esophagitis; F41.9 Anxiety disorder, unspecified; Z87.19 Personal history of other diseases of the digestive system; Z86.010 Personal history of colon polyps; Z86.73 Personal history of transient ischemic attack (TIA), and cerebral infarction without residual deficits; Z88.1 Allergy status to other antibiotic agents; Z88.5 Allergy status to narcotic agent; Z88.0 Allergy status to penicillin; Z88.8 Allergy status to other drugs, medicaments and biological substances; Z79.4 Long term (current) use of insulin; Z87.891 Personal history of nicotine dependence; Z95.5 Presence of coronary angioplasty implant and graft; Z95.1 Presence of aortocoronary bypass graft; Z82.49 Family history of ischemic heart disease and other diseases of the circulatory system
CPT/HCPCS: 36415; 70450; 70491; 80053; 80162; 81000; 83735; 85025

== ENCOUNTER 2019-01-28 11:30 | Outpatient (CLI) | payer MEDICARE, MEDICAID ==
[~2019-01-28] VITALS: Ht 182 cm; Wt 80.9 kg
[~2019-01-28 11:30] MED LIST changes: +CYCL10TA9 PO; +TRAM-42 PO
[2019-01-28] MEDS ORDERED: TAMS0.4C98 PO (11:55)
== END 2019-01-28 14:17 | disposition home or self-care (01) ==
LOC: PREOP 11:30
PROVIDERS: ATTEND Surgery
DX: Z01.818 Encounter for other preprocedural examination (principal)

== ENCOUNTER 2019-01-29 09:06 | Day surgery (SDC) | payer MEDICARE, MEDICAID ==
[2019-01-29] VITALS (17 sets, daily range): BP systolic 130–181; BP diastolic 75–98
[~2019-01-29 09:06] MED LIST changes: +NS IV 500 ML 500 ML ONE; +TAMS0.4C98 PO
[2019-01-29] MEDS ORDERED: fentaNYL INJECTION 100 MCG/2 ML AMP IVP ONE (09:15)
[2019-01-29] MEDS ORDERED: NS IV 500 ML 500 ML IV PRN (09:15)
[2019-01-29] MEDS ORDERED: LIDOCAINE JELLY 2% 6 ML SYRINGE MM PRN (09:15)
[2019-01-29] MEDS ORDERED: MIDAZOLAM 2 MG/2 ML (VERSED) VIAL IVP ONE (09:15)
[2019-01-29] MEDS ORDERED: HURRICAINE EXT TUBE (BENZOCAINE) XX PRN (09:15)
[2019-01-29] MEDS ORDERED: HURRICAINE EXT TUBE (BENZOCAINE) ONE (10:39)
[2019-01-29] MEDS ORDERED: LIDOCAINE JELLY 2% 6 ML SYRINGE ONE (10:40)
[2019-01-29] MEDS ORDERED: MIDAZOLAM 2 MG/2 ML (VERSED) VIAL ONE ×3 (10:40)
[2019-01-29] MEDS ORDERED: fentaNYL INJECTION 100 MCG/2 ML AMP ONE (10:40)
--- NOTE | 2019-01-29 11:24 | Conscious Sedation/ASA ---
Conscious Sedation Pre-Proced Time 10:00 ASA Score 2 For ASA 3 and 4: Consider anesthesia and medical clearance. Also, for patients with a history of failed moderate sedation consider anesthesia. Airway Lungs Heart ASA score ASA 1: a normal healthy patient ASA 2: a patient with a mild systemic disease (mid diabetes, controlled hypertension, obesity ASA 3: a patient with a severe systemic disease that limits activity (angina, COPD, prior Myocardial infarction) ASA 4: a patient with an incapacitating disease that is a constant threat to life (CHF, renal failure) ASA 5: a moribund patient not expected to survive 24 hrs. (ruptured aneurysm) ASA 6: a declared brain- patient whose organs are being harvested. For emergent operations, add the letter E after the classification Mallampati Classification Grade 2 Sedation Plan Analgesia, Amnesia, Plan communicated to team members, Discussed options with patient/fam, Discussed risks with patient/fam The patient is an appropriate candidate to undergo the planned procedure, sedation, and anesthesia. The patient immediately re-assessed prior to indication. SARAH CALLAWAY MD Jan 29, 2019 11:24
--- NOTE | 2019-01-29 11:25 | Progress Note-Pre Operative ---
Pre-Operative Progress Note H&P Reviewed The H&P was reviewed, patient examined and no changes noted. Date Seen by Provider: Jan 29, 2019 Time Seen by Provider: 10:00 Date H&P Reviewed: Jan 29, 2019 Time H&P Reviewed: 10:00 Pre-Operative Diagnosis: dysphagia, GERD SARAH CALLAWAY MD Jan 29, 2019 11:25
--- NOTE | 2019-01-29 11:27 | Discharge Inst-Surgical ---
D/C Lap Instructions-CESIA Follow Up Activity as tolerated High Fiber Diet 25g or more per day Avoid Alcohol, Caffeine, Spicy [place]ovey and Acid foods. Drink 64 fluid oz or more of fluids per day. Symptoms to Report: Fever over 101 degree F, Nausea/Vomiting If any problems/questions: Contact your physician or go to Emergency Room SARAH CALLAWAY MD Jan 29, 2019 11:27
[2019-01-29] MEDS ORDERED: HYDROcodone/APAP 5 MG/325 MG (LORTAB) TAB PO PRN (11:30)
[2019-01-29] MEDS ORDERED: ACETAMINOPHEN 325 MG TABLET PO PRN (11:30)
[2019-01-29] MEDS ORDERED: ONDANSETRON 4 MG/2 ML (SDV) Z0FRAN IVP PRN (11:30)
[2019-01-29] MEDS ORDERED: morphine INJ 10 MG/ML 1ML (SYR OR VIAL) IVP PRN ×2 (11:30)
--- NOTE | 2019-01-29 13:12 | Progress Note-Post Operative ---
Post-Operative Progess Note Surgeon (s)/Movie Shot Camera Operator (s) Surgeon SARAH CALLAWAY MD Movie Shot Camera Operator: none Pre-Operative Diagnosis dysphagia, GERD Post-Operative Diagnosis reflux esophagitis(stage 2), mild distal esophageal stricture, no recurrent HH, mild gastritis. Procedure & Operative Findings Date of Procedure 01/29/19 Procedure Performed/Findings EGD with bx and balloon dilatation. Anesthesia Type cs Estimated Blood Loss Estimated blood loss (mL): minimal Specimens/Packing Specimens Removed ge jxn, antrum. SARAH CALLAWAY MD Jan 29, 2019 13:12
--- NOTE | 2019-01-29 20:21 | OPERATIVE REPORT ---
DATE OF SERVICE: 01/29/2019 ATTENDING PRIMARY CARE PHYSICIAN: Dr. Michele Culp. PREOPERATIVE DIAGNOSES: Dysphagia, history of gastroesophageal reflux disease. POSTOPERATIVE DIAGNOSES: Reflux esophagitis stage II, mild distal esophageal stricture, intact wrap, no recurrent hiatal hernia, mild gastritis. PROCEDURE: EGD with biopsy and balloon dilatation. SURGEON: Sarah Callaway MD ANESTHESIA: Conscious sedation. ESTIMATED BLOOD LOSS: Minimal. FINDINGS: Reflux esophagitis stage II, mild distal esophageal stricture, intact wrap, no recurrent hiatal hernia, mild gastritis. DISPOSITION: The patient tolerated the procedure well. INDICATIONS: The patient is a 78-year-old male with a 6-month history of dysphagia. He has had a history of gastroesophageal reflux disease and is status post hiatal hernia repair and Jarret fundoplication in 2004. He reports that after eating a food bolus he will feel substernal pressure sensation as well as intermittent coughing. He also does have reflux and regurgitation as well. He has had a previous stricture and a balloon dilatation in the past. DESCRIPTION OF PROCEDURE: The patient was brought to the endoscopy suite, laid in left lateral decubitus position with the head slightly elevated. After adequate IV pain and sedative medications and conscious sedation anesthesia, the mouthpiece was applied. The endoscope was placed in the mouth, visualizing the pharynx and hypopharyngeal region. Vocal cords, epiglottis and vallecula identified and appeared to be normal. The endoscope was then gently intubated into the esophageal opening and esophagus insufflated. The endoscope was then advanced through the first, second and third portions of the esophagus at the level of the GE junction, reflux esophagitis stage II identified. A mild distal esophageal stricture was also identified. A biopsy was taken using forceps with visualization of good hemostasis. A mild distal esophageal stricture was also identified. The endoscope was able to pass through this without any resistance and then endoscope retroflexed again visualizing a distal esophageal stricture as well as an intact previous hiatal hernia repair and wrapped with no recurrent hiatal hernia. Mild gastritis was noted. A biopsy was taken to rule out H. pylori with visualization of good hemostasis. The endoscope was then advanced to the pylorus and first and second portion of the duodenum, which appeared normal and no distal obstructions. We then proceeded with balloon dilatation and the balloon was placed in the stomach and pulled back into the esophagus. We first proceeded to 2 atmospheres of pressure with no resistance. At 4 atmospheres, there was again no resistance. At 6 atmospheres of pressure or 20 mm in luminal diameter, there was mild to moderate resistance and we left this in place for 60 seconds. The balloon was then desufflated and removed with visualization of good hemostasis as well as no mucosal tears. The endoscope was then slowly withdrawn while taking a second look and suctioning of residual air with no additional findings. The patient tolerated the procedure well. We will recommend continued medical management with the necessary lifestyle and diabetic diet accommodation including avoidance of caffeinated beverages, spicy, greasy and acidic foods. We also recommend small and more frequent meals, avoidance of eating at night as well as head elevation while lying supine. He also needs to chew thoroughly and eat slowly and avoid foods that do tend to cause dysphagia which are lean meats, breads, crackers and dry starches as well as raw leafy vegetables. Job ID: [id number] DocumentID: [id number] Dictated Date: 01/29/2019 12:03:05 Regional Operations Director Date: 01/29/2019 20:20:20 Dictated By: SARAH CALLAWAY MD
== END 2019-01-29 12:55 | disposition home or self-care (01) ==
LOC: ENDO 09:06
PROVIDERS: ATTEND Surgery
DX: K29.50 Unspecified chronic gastritis without bleeding (principal); K21.0 Gastro-esophageal reflux disease with esophagitis; K22.2 Esophageal obstruction; K44.9 Diaphragmatic hernia without obstruction or gangrene; I10 Essential (primary) hypertension; E78.00 Pure hypercholesterolemia, unspecified; I25.10 Atherosclerotic heart disease of native coronary artery without angina pectoris; E11.9 Type 2 diabetes mellitus without complications; N40.0 Benign prostatic hyperplasia without lower urinary tract symptoms; I48.91 Unspecified atrial fibrillation; I25.2 Old myocardial infarction; Z95.1 Presence of aortocoronary bypass graft; Z96.651 Presence of right artificial knee joint; Z88.1 Allergy status to other antibiotic agents; Z90.49 Acquired absence of other specified parts of digestive tract; Z87.11 Personal history of peptic ulcer disease; Z88.8 Allergy status to other drugs, medicaments and biological substances; Z88.5 Allergy status to narcotic agent; Z88.0 Allergy status to penicillin; Z79.899 Other long term (current) drug therapy; Z79.84 Long term (current) use of oral hypoglycemic drugs; Z79.01 Long term (current) use of anticoagulants; Z82.49 Family history of ischemic heart disease and other diseases of the circulatory system; Z83.3 Family history of diabetes mellitus; Z82.3 Family history of stroke
CPT/HCPCS: 82962; 88305

== ENCOUNTER 2019-02-18 12:01 | Emergency (ER) | payer MEDICARE, MEDICAID ==
[~2019-02-18] VITALS: Ht 182 cm; Wt 80.0 kg
[~2019-02-18 12:01] MED LIST changes: -NS IV 500 ML 500 ML ONE
[2019-02-18] MEDS ORDERED: NS IV 1000 ML 1,000 ML IV SCH (12:38)
--- NOTE | 2019-02-18 12:44 | ED GI ---
General Chief Complaint: General Problems/Pain Stated Complaint: DIARRHEA HIGH BLOOD SUGAR Nursing Triage Note: TO TRIAGE WITH COMPLAINTS OF N/V, HEADACHE, HIGH BLOOD SUGAR AND HIGH BP. STATES HE CALLED HIS DR'S OFFICE WHO TOLD HIM TO COME TO THE ER. Sepsis Screen: No Definite Risk Source of Information: Patient, Family Exam Limitations: No Limitations History of Present Illness Date Seen by Provider: Feb 18, 2019 Time Seen by Provider: 12:30 Initial Comments The patient presents to the ER with his spouse and chief complaint of nausea vomiting and diarrhea since about midnight this morning. He's not had a cough shortness of breath or fever. He is diabetic and has not checked his sugar this morning but didn't take his usual 25 mg Levemir twice a day this morning. He's not been able to eat or drink today. He has not taken any antipyretics or anti- emetics. He is followed by Michele Herrera. Allergies and Home Medications Allergies Coded Allergies: celecoxib (Unverified Allergy, Mild, TAKES ASPIRIN AT HOME, 01/28/19) diclofenac (Unverified Allergy, Mild, TAKES ASPIRIN AT HOME, 01/28/19) naproxen (Unverified Allergy, Mild, TAKES ASPIRIN AT HOME, 01/28/19) rosuvastatin (Unverified Allergy, Mild, 01/28/19) Penicillins (Verified Allergy, Unknown, 01/28/19) amoxicillin (Verified Allergy, Unknown, 01/28/19) fenofibrate (Unverified Allergy, Unknown, 01/28/19) simvastatin (Unverified Allergy, Unknown, 01/28/19) Uncoded Allergies: GEMIFIBOROZIL (Allergy, Unknown, 06/05/16) Home Medications Amiodarone HCl 200 Mg Tablet, 200 MG PO BID, (Reported) Apixaban 5 Mg Tablet, 5 MG PO BID, (Reported) Baclofen 10 Mg Tablet, 10 MG PO TID PRN for MUSCLE SPASMS, (Reported) Cholecalciferol (Vitamin D3) 2,000 Unit Capsule, 2,000 UNIT PO DAILY, (Reported) Clonidine HCl 0.1 Mg Tablet, 0.1 MG PO DAILY PRN for SYSTOLIC BLOOD PRESSURE, (Reported) Cyclobenzaprine HCl 10 Mg Tablet, 10 MG PO TID PRN for SPASMS Prescribed by: RODOLFO GODWIN on 01/23/19 1043 Digoxin 125 Mcg Tablet, 125 MCG PO DAILY, (Reported) Diltiazem HCl 120 Mg Cap.er.24h, 120 MG PO DAILY Prescribed by: CHARO SCHNEIDER on 11/08/18 1704 Fenofibrate,Micronized 134 Mg Capsule, 134 MG PO DAILY, (Reported) Gabapentin 300 Mg Capsule, 600 MG PO HS, (Reported) TAKES 2 (300 MG) CAPSULES Hyoscyamine Sulfate 0.125 Mg Tab.subl, 1-2 TAB SL Q4H Prescribed by: ROMAIN KNIGHT on 07/31/18 0411 Insulin Detemir 100 Unit/1 Ml Insuln.pen, 25 UNIT SQ BID, (Reported) Montelukast Sodium 10 Mg Tablet, 10 MG PO HS, (Reported) Nitroglycerin 0.4 Mg Tab.subl, 0.4 MG SL UD PRN for CHEST PAIN, (Reported) MAX OF 3 TABS IN 15 MINUTES / CALL 911 IF PAIN REMAINS AFTER 5 MINUTES Ondansetron 4 Mg Tab.rapdis, 4 MG PO Q6H PRN for NAUSEA/VOMITING Prescribed by: WENDY SARMIENTO on 02/18/19 1308 Pantoprazole Sodium 40 Mg Tablet.dr, 40 MG PO DAILY Prescribed by: RODOLFO GODWIN on 07/24/18 1843 Pentoxifylline 400 Mg Tablet.er, 400 MG PO TID, (Reported) Pravastatin Sodium 80 Mg Tablet, 80 MG PO HS, (Reported) Tamsulosin HCl 0.4 Mg Cap, 0.4 MG PO DAILY, (Reported) Topiramate 25 Mg Tablet, 25 MG PO DAILY, (Reported) Tramadol HCl 50 Mg Tablet, 25-50 MG PO Q6H PRN for PAIN-MODERATE Prescribed by: RODOLFO GODWIN on 01/23/19 1043 Trazodone HCl 50 Mg Tablet, 50 MG PO HS, (Reported) Zolpidem Tartrate 10 Mg Tablet, 10 MG PO HS, (Reported) Patient Home Medication List Home Medication List Reviewed: Yes Review of Systems Review of Systems Constitutional: No chills, No diaphoresis, No fever; malaise EENTM: No Blurred Vision, No Double Vision Respiratory: Denies Cough, Denies Shortness of Air Cardiovascular: Denies Chest Pain, Denies Lightheadedness Gastrointestinal: Denies Abdomen Distended, Denies Abdominal Pain, Denies Constipated; Diarrhea, Nausea, Poor Appetite, Poor Fluid Intake, Vomiting Genitourinary: Denies Burning, Denies Discharge Musculoskeletal: No back pain, No joint pain Past [place]-Djbgom-Xmcywh Hx Patient Social History Alcohol Use: Denies Use Alcohol Beverage of Choice: Beer Recreational Drug Use: No Smoking Status: Former Smoker Type Used: Cigarettes Former Smoker, Quit: Apr 12, 2000 2nd Hand Smoke Exposure: No Recent Foreign Travel: No Contact w/Someone Who Travel: No Recent Infectious Disease Expo: No Recent Hopitalizations: No Immunizations Up To Date Tetanus Booster (TDap): Less than 5yrs PED Vaccines UTD: No Date of Pneumonia Vaccine: May 22, 2017 Date of Influenza Vaccine: Mar 08, 2018 Seasonal Allergies Seasonal Allergies: No Past Medical History Surgeries: Yes (CORONARY BYPASS X4, BILAT TKR, STENTS IN LEGS) Abdominal, Angioplasty, Cardiac, CABG, Coronary Stent, Eye Surgery, Gallbladder, Joint Replacement, Open Heart Surgery, Orthopedic, Vascular Surgery Respiratory: Yes (CHRONIC DYSPNEA ON EXERTION) Sleep Apnea, COPD Currently Using CPAP: No Currently Using BIPAP: No Cardiac: Yes Atrial Fibrillation, Chronic Edema/Swelling, Coronary Artery Disease, Heart Attack, High Cholesterol, Hypertension, Peripheral Vascular Neurological: Yes (POSSIBLE STROKE/ TIA) Stroke, TIA Reproductive Disorders: No Sexually Transmitted Disease: No HIV/AIDS: No Genitourinary: Yes (RENAL INSUFFICIENCY) Benign Prostatic Hyperpl, Prostate Problems, Renal Failure Gastrointestinal: Yes (GASTROPARESIS) Abdominal Hernia, Gastroesophageal Reflux, Chronic Constipation, Diverticulosis, Pancreatitis, Polyps, Gall Bladder Disease Musculoskeletal: Yes (OLECRANON BURSITIS, CHRONIC NECK PAIN, DISH SYNDROME) Degenerate Disk Disease, Arthritis, Chronic Back Pain Endocrine: Yes Diabetes, Insulin dep HEENT: Yes Cataract Loss of Vision: Denies Hearing Impairment: Denies Cancer: No Psychosocial: Yes Anxiety Integumentary: No Blood Disorders: No Adverse Reaction/Blood Tranf: No (N/A) Family Medical History Cancer G8 BROTHER Cataract 19 FATHER 19 MOTHER G8 BROTHER G8 BROTHER G8 SISTER Congestive heart failure 19 FATHER 19 MOTHER Family history: Arthritis 19 FATHER 19 MOTHER G8 BROTHER G8 BROTHER G8 SISTER G8 SISTER DAUGHTER SON Family history: Breast disease DAUGHTER Family history: Cardiovascular disease 19 FATHER Family history: Diabetes mellitus 19 FATHER G8 BROTHER G8 SISTER Family history: Hypertension 19 FATHER 19 MOTHER G8 BROTHER G8 BROTHER G8 SISTER G8 SISTER DAUGHTER SON Family history: Thyroid disorder DAUGHTER Heart disease 19 FATHER 19 MOTHER G8 BROTHER Hypercholesterolemia 19 FATHER 19 MOTHER G8 BROTHER G8 BROTHER G8 SISTER Myocardial infarction 19 FATHER 19 MOTHER G8 BROTHER No Family History of: Abdominal aortic aneurysm Johnson's disease Alcoholism Aphasia Cancer of colon Chest pain Congenital heart disease Cystic fibrosis Dementia Dysphagia Family history: Allergy Family history: Alzheimer's disease Family history: Asthma Family history: Coronary thrombosis Family history: Gastrointestinal disease Family history: Glaucoma Family history: Osteoporosis Headache Hearing loss Hereditary disease History of - anemia History of - disorder History of - respiratory disease History of drug abuse Human immunodeficiency virus (HIV) seropositivity Infertile Kidney disease Malignant neoplasm of lung Parkinson's disease Prostate cancer Psychotic disorder Seizure disorder Stroke Tuberculosis Visual impairment Physical Exam Vital Signs Vital Signs - First Documented 02/18/19 12:05 Temp 36.6 Pulse 102 Resp 16 B/P (MAP) 150/77 (101) Pulse Ox 98 O2 Delivery Room Air Capillary Refill : Less Than 3 Seconds Height/Weight/BMI Height: 6'0" Weight: 180lbs. 4.0oz. 81.173876cn; 24.00 BMI Method:Stated General Appearance: WD/WN, mild distress HEENT: PERRL/EOMI, normal ENT inspection, pharynx normal Neck: full range of motion, normal inspection Respiratory: lungs clear, normal breath sounds, no respiratory distress, no accessory muscle use Cardiovascular: normal peripheral pulses, regular rate, rhythm, no edema Peripheral Pulses: 2+ Radial Pulses (R), 2+ Radial Pulses (L) Gastrointestinal: normal bowel sounds, non tender, soft, no organomegaly Neurologic/Psychiatric: alert, normal mood/affect, oriented x 3 Skin: normal color, warm/dry Progress/Results/Core Measures Results/Orders Lab Results Laboratory Tests Test 02/18/19 12:10 02/18/19 12:30 Range/Units Glucometer 209 H 70-110 MG/DL White Blood Count 9.5 4.3-11.0 10^3/uL Red Blood Count 4.39 4.35-5.85 10^6/uL Hemoglobin 10.9 L 13.3-17.7 G/DL Hematocrit 35 L 40-54 % Mean Corpuscular Volume 80 80-99 FL Mean Corpuscular Hemoglobin 25 25-34 PG Mean Corpuscular Hemoglobin Concent 31 L 32-36 G/DL Red Cell Distribution Width 14.9 H 10.0-14.5 % Platelet Count 378 130-400 10^3/uL Mean Platelet Volume 9.6 7.4-10.4 FL Neutrophils (%) (Auto) 86 H 42-75 % Lymphocytes (%) (Auto) 7 L 12-44 % Monocytes (%) (Auto) 5 0-12 % Eosinophils (%) (Auto) 2 0-10 % Basophils (%) (Auto) 0 0-10 % Neutrophils # (Auto) 8.2 H 1.8-7.8 X 10^3 Lymphocytes # (Auto) 0.7 L 1.0-4.0 X 10^3 Monocytes # (Auto) 0.5 0.0-1.0 X 10^3 Eosinophils # (Auto) 0.1 0.0-0.3 10^3/uL Basophils # (Auto) 0.0 0.0-0.1 10^3/uL Sodium Level 139 135-145 MMOL/L Potassium Level 3.8 3.6-5.0 MMOL/L Chloride Level 107 98-107 MMOL/L Carbon Dioxide Level 21 21-32 MMOL/L Anion Gap 11 5-14 MMOL/L Blood Urea Nitrogen 14 7-18 MG/DL Creatinine 1.47 H 0.60-1.30 MG/DL Estimat Glomerular Filtration Rate 47 BUN/Creatinine Ratio 10 Glucose Level 213 H 70-105 MG/DL Calcium Level 9.6 8.5-10.1 MG/DL Corrected Calcium 9.4 8.5-10.1 MG/DL Total Bilirubin 0.4 0.1-1.0 MG/DL Aspartate Amino Transf (AST/SGOT) 12 5-34 U/L Alanine Aminotransferase (ALT/SGPT) 13 0-55 U/L Alkaline Phosphatase 74 40-136 U/L C-Reactive Protein High Sensitivity 0.47 0.00-0.50 MG/DL Total Protein 7.3 6.4-8.2 GM/DL Albumin 4.2 3.2-4.5 GM/DL My Orders Orders - WENDY SARMIENTO Ondansetron Injection (Zofran Injectio (02/18/19 12:45) Ed Iv/Invasive Line Start (02/18/19 12:38) Ns Iv 1000 Ml (Sodium Chloride 0.9%) (02/18/19 12:38) Cbc With Automated Diff (02/18/19 12:38) Comprehensive Metabolic Panel (02/18/19 12:38) Hs C Reactive Protein (02/18/19 12:38) Accucheck Stat ONCE (02/18/19 12:44) Manual Differential (02/18/19 12:30) Medications Given in ED Current Medications Medications Dose Ordered Sig/Alka Route Start Time Stop Time Status Last Admin Dose Admin Ondansetron HCl 8 mg ONCE ONCE IVP 02/18/19 12:45 02/18/19 12:46 DC 02/18/19 12:50 8 MG Vital Signs/I&O 02/18/19 12:05 Temp 36.6 Pulse 102 Resp 16 B/P (MAP) 150/77 (101) Pulse Ox 98 O2 Delivery Room Air Blood Pressure Mean: 101 FSBG Bedside Testing Finger Stick Blood Glucose: 209 Progress Progress Note #1: Time: 12:44 Progress Note The patient is tachycardic with a heart rate in the 102. Plan to start with a liter of fluid. Fingerstick Accu-Chek is 209 presently. We'll check some basic labs and urinalysis but it sounds like viral gastroenteritis most likely. He has a benign, nonsurgical abdomen. Progress Note #2: Time: 13:04 Progress Note The patient is feeling much better without any nausea. His labs are okay. He's having no urinary symptoms. Plan to send him out with Zofran after his fluids and concluded. He and his agree with this plan. Imodium as necessary for diarrhea. Follow-up with primary care if not seeing improvement by next week. Departure Impression Primary Impression: Gastroenteritis and colitis, viral Additional Impression: Mild dehydration Disposition: 01 HOME, SELF-CARE Condition: Improved Departure-Patient Inst. Decision time for Depature: 13:10 Referrals: MICHELE HERRERA MD (PCP/Family) Primary Care Physician Patient Instructions: Viral Gastroenteritis, Adult (DC) Add. Discharge Instructions: Continue to drink lots of fluids. Zofran 1 tablet under the tongue every 6 hours as needed for nausea. If your diarrhea persists for more than one to 2 days or if you are unable to keep up with your fluid intake then you may take loperamide 2 tablets followed by one tablet every 4 hours that you're still having watery loose stools. Plan to follow up with primary care if not seeing resolution of symptoms in the next 5 days. Return to the ER. Having intractable nausea, vomiting, diarrhea, dehydration or other worrisome symptoms such as abdominal pain. All discharge instructions reviewed with patient and/or family. Voiced unders tanding. Scripts Ondansetron (Ondansetron Odt) 4 Mg Tab.rapdis 4 MG PO Q6H PRN for NAUSEA/VOMITING, #12 TAB 0 Refills Prov: WENDY SARMIENTO 02/18/19 WENDY SARMIENTO Feb 18, 2019 12:44
[2019-02-18] MEDS ORDERED: ONDANSETRON 4 MG/2 ML (SDV) Z0FRAN IVP ONE (12:45)
[2019-02-18 12:50] LABS: BASOPHILS % (AUTO) 0 % (0-10); EOSINOPHILS # (AUTO) 0.1 10^3/uL (0.0-0.3); EOSINOPHILS % (AUTO) 2 % (0-10); HEMATOCRIT 35 % (40-54); HEMOGLOBIN 10.9 G/DL (13.3-17.7); LYMPHOCYTES # (AUTO) 0.7 X 10^3 (1.0-4.0); LYMPHOCYTES % (AUTO) 7 % (12-44); MEAN CORPUSCULAR HEMOGLOBIN 25 PG (25-34); MEAN CORPUSCULAR HGB CONC 31 G/DL (32-36); MEAN CORPUSCULAR VOLUME 80 FL (80-99); MEAN PLATELET VOLUME 9.6 FL (7.4-10.4); MONOCYTES # (AUTO) 0.5 X 10^3 (0.0-1.0); MONOCYTES % (AUTO) 5 % (0-12); NEUTROPHILS # (AUTO) 8.2 X 10^3 (1.8-7.8); NEUTROPHILS % (AUTO) 86 % (42-75); PLATELET COUNT 378 10^3/uL (130-400); RED CELL DISTRIBUTION WIDTH 14.9 % (10.0-14.5); WHITE BLOOD COUNT 9.5 10^3/uL (4.3-11.0)
[2019-02-18 13:00] LABS: ALBUMIN 4.2 GM/DL (3.2-4.5); BILIRUBIN,TOTAL 0.4 MG/DL (0.1-1.0); CALCIUM 9.6 MG/DL (8.5-10.1); CREATININE SERUM 1.47 MG/DL (0.60-1.30); POTASSIUM 3.8 MMOL/L (3.6-5.0); TOTAL PROTEIN 7.3 GM/DL (6.4-8.2)
[2019-02-18] MEDS ORDERED: ONDA4TAB11 PO (13:08)
[2019-02-18 13:48] VITALS: BP 116/74
[2019-02-18 14:04] LABS: BAND NEUTROPHILS 0 %; BASOPHILS % (MANUAL) 0 %; EOSINOPHILS % (MANUAL) 1 %; LYMPHOCYTES % (MANUAL) 6 %; MONOCYTES % (MANUAL) 4 %; NEUTROPHILS % (MANUAL) 89 %; RBC MORPH NORMAL
== END 2019-02-18 13:48 | disposition home or self-care (01) ==
LOC: EDUNIT# 12:01 → ER 12:03
DX: A08.4 Viral intestinal infection, unspecified (principal); E86.0 Dehydration; J44.9 Chronic obstructive pulmonary disease, unspecified; G47.30 Sleep apnea, unspecified; I48.91 Unspecified atrial fibrillation; I25.10 Atherosclerotic heart disease of native coronary artery without angina pectoris; I25.2 Old myocardial infarction; E78.00 Pure hypercholesterolemia, unspecified; I10 Essential (primary) hypertension; E11.51 Type 2 diabetes mellitus with diabetic peripheral angiopathy without gangrene; E11.43 Type 2 diabetes mellitus with diabetic autonomic (poly)neuropathy; K31.84 Gastroparesis; N40.0 Benign prostatic hyperplasia without lower urinary tract symptoms; K21.9 Gastro-esophageal reflux disease without esophagitis; F41.9 Anxiety disorder, unspecified; Z86.010 Personal history of colon polyps; Z86.73 Personal history of transient ischemic attack (TIA), and cerebral infarction without residual deficits; Z88.6 Allergy status to analgesic agent; Z88.5 Allergy status to narcotic agent; Z88.0 Allergy status to penicillin; Z79.4 Long term (current) use of insulin; Z87.891 Personal history of nicotine dependence; Z95.1 Presence of aortocoronary bypass graft; Z96.653 Presence of artificial knee joint, bilateral; Z95.5 Presence of coronary angioplasty implant and graft; Z82.49 Family history of ischemic heart disease and other diseases of the circulatory system
CPT/HCPCS: 36415; 80053; 82962; 85007; 85027; 86141; 96361; 96374

== ENCOUNTER 2019-03-15 04:12 | Emergency (ER) | payer MEDICARE, MEDICAID ==
[~2019-03-15] VITALS: Ht 182.9 cm; Wt 79.5 kg
[~2019-03-15 04:12] MED LIST changes: +DIGO125T3 PO; -ENAL5TAB; +ENLP5T; -TAMS0.4C98 PO; +TMSL.4C PO; -TRAM50TA2 PO; -TRAZ-222 PO; +TRZ50T PO
[2019-03-15 04:45] LABS: BASOPHILS % (AUTO) 1 % (0-10); EOSINOPHILS # (AUTO) 0.2 10^3/uL (0.0-0.3); EOSINOPHILS % (AUTO) 3 % (0-10); HEMATOCRIT 35 % (40-54); HEMOGLOBIN 10.8 G/DL (13.3-17.7); LYMPHOCYTES # (AUTO) 1.8 X 10^3 (1.0-4.0); LYMPHOCYTES % (AUTO) 24 % (12-44); MEAN CORPUSCULAR HEMOGLOBIN 25 PG (25-34); MEAN CORPUSCULAR HGB CONC 31 G/DL (32-36); MEAN CORPUSCULAR VOLUME 78 FL (80-99); MEAN PLATELET VOLUME 9.6 FL (7.4-10.4); MONOCYTES # (AUTO) 0.7 X 10^3 (0.0-1.0); MONOCYTES % (AUTO) 10 % (0-12); NEUTROPHILS # (AUTO) 4.6 X 10^3 (1.8-7.8); NEUTROPHILS % (AUTO) 63 % (42-75); PLATELET COUNT 342 10^3/uL (130-400); RED CELL DISTRIBUTION WIDTH 14.6 % (10.0-14.5); WHITE BLOOD COUNT 7.3 10^3/uL (4.3-11.0)
[2019-03-15] MEDS ORDERED: DILTIAZEM IV FOR DRIP 125 MG in NS (IVPB) 100 ML IV SCH (04:45)
[2019-03-15] MEDS ORDERED: DILTIAZEM 25 MG/5 ML INJ (CARDIZEM) VIAL IVP ONE (04:45)
[2019-03-15 04:56] LABS: INR 1.2 (0.8-1.4); PROTHROMBIN TIME PATIENT 15.3 SEC (12.2-14.7)
[2019-03-15 05:05] LABS: ALANINE AMINOTRANSFERASE 9 U/L (0-55); ALBUMIN 4.2 GM/DL (3.2-4.5); ALKALINE PHOSPHATASE 71 U/L (40-136); BILIRUBIN,TOTAL 0.2 MG/DL (0.1-1.0); BUN/CREATININE RATIO 10; CALCIUM 9.9 MG/DL (8.5-10.1); CARBON DIOXIDE 22 MMOL/L (21-32); CHLORIDE 108 MMOL/L (98-107); CREATININE SERUM 1.57 MG/DL (0.60-1.30); GFR ESTIMATED 43; GLUCOSE 180 MG/DL (70-105); MAGNESIUM 2.2 MG/DL (1.6-2.4); POTASSIUM 3.6 MMOL/L (3.6-5.0); SODIUM 141 MMOL/L (135-145); TOTAL PROTEIN 7.5 GM/DL (6.4-8.2)
[2019-03-15] MEDS ORDERED: DILT240C53 PO (05:44)
[2019-03-15] MEDS ORDERED: DILTIAZEM 240 MG (CARDIZEM CD) CAP PO ONE (05:45)
--- NOTE | 2019-03-15 05:47 | ED Cardiac General ---
History of Present Illness General Chief Complaint: Cardiac/General Problems Stated Complaint: A-FIB Nursing Triage Note: Pt amb to room #5 with c/o A fib. Pt reports symptoms of heart palpitations. Pt states, "it feels like my heart is racing." Reports onset of symptoms to be 03/14/19. Denies chest pain, SOA, or dizziness. Source: patient, old records Exam Limitations: no limitations History of Present Illness Date Seen by Provider: Mar 15, 2019 Time Seen by Provider: 04:29 Initial Comments This 78 her old man presents to the emergency room with complaint of tachycardia. He has history of paroxysmal atrial fibrillation and flutter. He has not felt well for a couple of days and states he thinks he has been in RVR since yesterday afternoon. He denies any chest pain. He is anticoagulated with a Eliquis. Allergies and Home Medications Allergies Coded Allergies: celecoxib (Unverified Allergy, Mild, TAKES ASPIRIN AT HOME, 01/28/19) diclofenac (Unverified Allergy, Mild, TAKES ASPIRIN AT HOME, 01/28/19) naproxen (Unverified Allergy, Mild, TAKES ASPIRIN AT HOME, 01/28/19) rosuvastatin (Unverified Allergy, Mild, 01/28/19) Penicillins (Verified Allergy, Unknown, 01/28/19) amoxicillin (Verified Allergy, Unknown, 01/28/19) fenofibrate (Unverified Allergy, Unknown, 01/28/19) simvastatin (Unverified Allergy, Unknown, 01/28/19) Uncoded Allergies: GEMIFIBOROZIL (Allergy, Unknown, 06/05/16) Home Medications Amiodarone HCl 200 Mg Tablet, 200 MG PO BID, (Reported) Apixaban 5 Mg Tablet, 5 MG PO BID, (Reported) Baclofen 10 Mg Tablet, 10 MG PO TID PRN for MUSCLE SPASMS, (Reported) Cholecalciferol (Vitamin D3) 2,000 Unit Capsule, 2,000 UNIT PO DAILY, (Reported) Clonidine HCl 0.1 Mg Tablet, 0.1 MG PO DAILY PRN for SYSTOLIC BLOOD PRESSURE, (Reported) Cyclobenzaprine HCl 10 Mg Tablet, 10 MG PO TID PRN for SPASMS Prescribed by: RODOLFO GODWIN on 01/23/19 1043 Digoxin 125 Mcg Tablet, 125 MCG PO DAILY, (Reported) Diltiazem HCl 120 Mg Cap.er.24h, 120 MG PO DAILY Prescribed by: CHARO SCHNEIDER on 11/08/18 1704 Diltiazem HCl 240 Mg Cap.er.24h, 240 MG PO DAILY Prescribed by: RODOLFO GODWIN on 03/15/19 0544 Fenofibrate,Micronized 134 Mg Capsule, 134 MG PO DAILY, (Reported) Gabapentin 300 Mg Capsule, 600 MG PO HS, (Reported) TAKES 2 (300 MG) CAPSULES Hyoscyamine Sulfate 0.125 Mg Tab.subl, 1-2 TAB SL Q4H Prescribed by: ROMAIN KNIGHT on 07/31/18 0411 Insulin Detemir 100 Unit/1 Ml Insuln.pen, 25 UNIT SQ BID, (Reported) Montelukast Sodium 10 Mg Tablet, 10 MG PO HS, (Reported) Nitroglycerin 0.4 Mg Tab.subl, 0.4 MG SL UD PRN for CHEST PAIN, (Reported) MAX OF 3 TABS IN 15 MINUTES / CALL 911 IF PAIN REMAINS AFTER 5 MINUTES Ondansetron 4 Mg Tab.rapdis, 4 MG PO Q6H PRN for NAUSEA/VOMITING Prescribed by: WENDY SARMIENTO on 02/18/19 1308 Pantoprazole Sodium 40 Mg Tablet.dr, 40 MG PO DAILY Prescribed by: RODOLFO GODWIN on 07/24/18 1843 Pentoxifylline 400 Mg Tablet.er, 400 MG PO TID, (Reported) Pravastatin Sodium 80 Mg Tablet, 80 MG PO HS, (Reported) Tamsulosin HCl 0.4 Mg Cap, 0.4 MG PO DAILY, (Reported) Topiramate 25 Mg Tablet, 25 MG PO DAILY, (Reported) Tramadol HCl 50 Mg Tablet, 25-50 MG PO Q6H PRN for PAIN-MODERATE Prescribed by: RODOLFO GODWIN on 01/23/19 1043 Trazodone HCl 50 Mg Tablet, 50 MG PO HS, (Reported) Zolpidem Tartrate 10 Mg Tablet, 10 MG PO HS, (Reported) Patient Home Medication List Home Medication List Reviewed: Yes Review of Systems Review of Systems Constitutional: see HPI EENTM: No Symptoms Reported Respiratory: No Symptoms Reported Cardiovascular: See HPI Gastrointestinal: No Symptoms Reported Genitourinary: No Symptoms Reported Musculoskeletal: no symptoms reported Skin: no symptoms reported Psychiatric/Neurological: No Symptoms Reported Endocrine: No Symptoms Reported Past Menztyr-Jxqtlq-Qcxzxl Hx Past Med/Social Hx: Reviewed Nursing Past Med/Soc Hx Patient Social History Alcohol Use: Rarely Uses Number of Drinks Today: AA Alcohol Beverage of Choice: Beer Recreational Drug Use: No Smoking Status: Former Smoker Type Used: Cigarettes Former Smoker, Quit: Apr 12, 2000 2nd Hand Smoke Exposure: No Recent Foreign Travel: No Contact w/Someone Who Travel: No Recent Infectious Disease Expo: No Recent Hopitalizations: No Immunizations Up To Date Tetanus Booster (TDap): Less than 5yrs PED Vaccines UTD: No Date of Pneumonia Vaccine: May 22, 2017 Date of Influenza Vaccine: Mar 08, 2018 Seasonal Allergies Seasonal Allergies: No Past Medical History Surgeries: Yes (CORONARY BYPASS X4, BILAT TKR, STENTS IN LEGS) Abdominal, Angioplasty, Cardiac, CABG, Coronary Stent, Eye Surgery, Gallbladder, Joint Replacement, Open Heart Surgery, Orthopedic, Vascular Surgery Respiratory: Yes (CHRONIC DYSPNEA ON EXERTION) Sleep Apnea, COPD Currently Using CPAP: No Currently Using BIPAP: No Cardiac: Yes Atrial Fibrillation, Chronic Edema/Swelling, Coronary Artery Disease, Heart Attack, High Cholesterol, Hypertension, Peripheral Vascular Neurological: Yes (POSSIBLE STROKE/ TIA) Stroke, TIA Reproductive Disorders: No Sexually Transmitted Disease: No HIV/AIDS: No Genitourinary: Yes (RENAL INSUFFICIENCY) Benign Prostatic Hyperpl, Prostate Problems, Renal Failure Gastrointestinal: Yes (GASTROPARESIS) Abdominal Hernia, Gastroesophageal Reflux, Chronic Constipation, Diverticulosis, Pancreatitis, Polyps, Gall Bladder Disease Musculoskeletal: Yes (OLECRANON BURSITIS, CHRONIC NECK PAIN, DISH SYNDROME) Degenerate Disk Disease, Arthritis, Chronic Back Pain Endocrine: Yes Diabetes, Insulin dep HEENT: Yes Cataract Loss of Vision: Denies Hearing Impairment: Denies Cancer: No Psychosocial: Yes Anxiety Integumentary: No Blood Disorders: No Adverse Reaction/Blood Tranf: No (N/A) Family Medical History Reviewed Nursing Family Hx Cancer G8 BROTHER Cataract 19 FATHER 19 MOTHER G8 BROTHER G8 BROTHER G8 SISTER Congestive heart failure 19 FATHER 19 MOTHER Family history: Arthritis 19 FATHER 19 MOTHER G8 BROTHER G8 BROTHER G8 SISTER G8 SISTER DAUGHTER SON Family history: Breast disease DAUGHTER Family history: Cardiovascular disease 19 FATHER Family history: Diabetes mellitus 19 FATHER G8 BROTHER G8 SISTER Family history: Hypertension 19 FATHER 19 MOTHER G8 BROTHER G8 BROTHER G8 SISTER G8 SISTER DAUGHTER SON Family history: Thyroid disorder DAUGHTER Heart disease 19 FATHER 19 MOTHER G8 BROTHER Hypercholesterolemia 19 FATHER 19 MOTHER G8 BROTHER G8 BROTHER G8 SISTER Myocardial infarction 19 FATHER 19 MOTHER G8 BROTHER No Family History of: Abdominal aortic aneurysm [place]wall's disease Alcoholism Aphasia Cancer of colon Chest pain Congenital heart disease Cystic fibrosis Dementia Dysphagia Family history: Allergy Family history: Alzheimer's disease Family history: Asthma Family history: Coronary thrombosis Family history: Gastrointestinal disease Family history: Glaucoma Family history: Osteoporosis Headache Hearing loss Hereditary disease History of - anemia History of - disorder History of - respiratory disease History of drug abuse Human immunodeficiency virus (HIV) seropositivity Infertile Kidney disease Malignant neoplasm of lung Parkinson's disease Prostate cancer Psychotic disorder Seizure disorder Stroke Tuberculosis Visual impairment Physical Exam Vital Signs Vital Signs - First Documented 03/15/19 04:25 Temp 36.5 Pulse 151 Resp 17 B/P (MAP) 176/103 (127) Pulse Ox 98 O2 Delivery Room Air Capillary Refill : NONE Height, Weight, BMI Height: 6'0" Weight: 180lbs. 4.0oz. [id number]; 23.00 BMI Method:Stated General Appearance: No Apparent Distress, WD/WN HEENT: PERRL/EOMI, Normal ENT Inspection Neck: Normal Inspection Respiratory: Lungs Clear, Normal Breath Sounds, No Accessory Muscle Use, No Respiratory Distress Cardiovascular: No Edema, No Murmur, Irregularly Irregular, Tachycardia Gastrointestinal: Normal Bowel Sounds, Non Tender, Soft Extremity: Normal Inspection, No Pedal Edema Neurologic/Psychiatric: Alert, Oriented x3, No Motor/Sensory Deficits, Normal Mood/Affect, heel seat laster II-XII Norm as Tested Skin: Normal Color, Warm/Dry Progress/Results/Core Measures Results/Orders Lab Results Laboratory Tests Test 03/15/19 04:33 Range/Units White Blood Count 7.3 4.3-11.0 10^3/uL Red Blood Count 4.41 4.35-5.85 10^6/uL Hemoglobin 10.8 L 13.3-17.7 G/DL Hematocrit 35 L 40-54 % Mean Corpuscular Volume 78 L 80-99 FL Mean Corpuscular Hemoglobin 25 25-34 PG Mean Corpuscular Hemoglobin Concent 31 L 32-36 G/DL Red Cell Distribution Width 14.6 H 10.0-14.5 % Platelet Count 342 130-400 10^3/uL Mean Platelet Volume 9.6 7.4-10.4 FL Neutrophils (%) (Auto) 63 42-75 % Lymphocytes (%) (Auto) 24 12-44 % Monocytes (%) (Auto) 10 0-12 % Eosinophils (%) (Auto) 3 0-10 % Basophils (%) (Auto) 1 0-10 % Neutrophils # (Auto) 4.6 1.8-7.8 X 10^3 Lymphocytes # (Auto) 1.8 1.0-4.0 X 10^3 Monocytes # (Auto) 0.7 0.0-1.0 X 10^3 Eosinophils # (Auto) 0.2 0.0-0.3 10^3/uL Basophils # (Auto) 0.0 0.0-0.1 10^3/uL Prothrombin Time 15.3 H 12.2-14.7 SEC INR Comment 1.2 0.8-1.4 Activated Partial Thromboplast Time 33 24-35 SEC Sodium Level 141 135-145 MMOL/L Potassium Level 3.6 3.6-5.0 MMOL/L Chloride Level 108 H 98-107 MMOL/L Carbon Dioxide Level 22 21-32 MMOL/L Anion Gap 11 5-14 MMOL/L Blood Urea Nitrogen 16 7-18 MG/DL Creatinine 1.57 H 0.60-1.30 MG/DL Estimat Glomerular Filtration Rate 43 BUN/Creatinine Ratio 10 Glucose Level 180 H 70-105 MG/DL Calcium Level 9.9 8.5-10.1 MG/DL Corrected Calcium 9.7 8.5-10.1 MG/DL Magnesium Level 2.2 1.6-2.4 MG/DL Total Bilirubin 0.2 0.1-1.0 MG/DL Aspartate Amino Transf (AST/SGOT) 15 5-34 U/L Alanine Aminotransferase (ALT/SGPT) 9 0-55 U/L Alkaline Phosphatase 71 40-136 U/L Myoglobin 94.6 H 10.0-92.0 NG/ML Troponin I < 0.028 <0.028 NG/ML Total Protein 7.5 6.4-8.2 GM/DL Albumin 4.2 3.2-4.5 GM/DL My Orders Orders - RODOLFO CUELLO MD Cbc With Automated Diff (03/15/19 04:33) Magnesium (03/15/19 04:33) Chest 1 View, Ap/Pa Only (03/15/19 04:33) Ekg Tracing (03/15/19 04:33) Cardiac Profile 1 (03/15/19 04:33) Comprehensive Metabolic Panel (03/15/19 04:33) Myoglobin Serum (03/15/19 04:33) Protime With Inr (03/15/19 04:33) Partial Thromboplastin Time (03/15/19 04:33) O2 (03/15/19 04:33) Monitor-Rhythm Ecg Trace Only (03/15/19 04:33) Lipid Panel (03/16/19 06:00) Ed Iv/Invasive Line Start (03/15/19 04:33) Diltiazem Injection (Cardizem Injection) (03/15/19 04:45) Ns (Ivpb) (Sodium C... W/Diltiazem Iv Fo (03/15/19 04:45) Diltiazem Cd 24 Hr Capsule (Cardizem Cd (03/15/19 05:45) Medications Given in ED Current Medications Medications Dose Ordered Sig/Alka Route Start Time Stop Time Status Last Admin Dose Admin Diltiazem HCl 10 mg ONCE ONCE IVP 03/15/19 04:45 03/15/19 04:46 DC 03/15/19 04:52 10 MG Vital Signs/I&O 03/15/19 03/15/19 04:25 04:53 Temp 36.5 Pulse 151 135 Resp 17 B/P (MAP) 176/103 (127) 137/85 Pulse Ox 98 O2 Delivery Room Air Blood Pressure Mean: 102 POS Progress Progress Note : Progress Note Patient was started on a Cardizem drip. Labs were unremarkable near baseline. Rhythm converted from atrial flutter with RVR to rate controlled A. fib. Case was discussed with Dr. Olivares. Patient's oral dose of Cartia will be increased to 240 mg from 120 mg. He is being discharged to outpatient follow-up. Initial ECG Impression Date: Mar 15, 2019 Initial ECG Impression Time: 04:33 Initial ECG Rate: 131 Initial ECG Rhythm: A Fib/Flutter Comment Atrial flutter with RVR. No ischemic changes. Diagnostic Imaging Diagonstic Imaging: Xray Plain Films/CT/US/NM/MRI: chest Comments Chest x-ray viewed by me. Report not yet available. No acute abnormalities appreciated. Departure Impression Primary Impression: Atrial flutter with rapid ventricular response Additional Impression: Atrial fibrillation Qualified Codes: I48.0 - Paroxysmal atrial fibrillation Disposition: HOME, SELF-CARE Condition: Improved Departure-Patient Inst. Referrals: IRAJ HERRERA MD (PCP/Family) Primary Care Physician Patient Instructions: Atrial Fibrillation Add. Discharge Instructions: We are increasing your Cartia XT dose from 120 mg daily to 240 mg daily. You have already received 10 days to this. Please change to the new prescription tomorrow. Follow-up with Dr. Stiles next week. Call Sunday for an appointment. Return to the emergency room if you have worsening symptoms or sustained rapid heart rate despite changing the dose. It is important to continue Eliquis. All discharge instructions reviewed with patient and/or family. Voiced understanding. Scripts Diltiazem HCl (Cartia Xt) 240 Mg Cap.er.24h 240 MG PO DAILY, #30 CAP Prov: RODOLFO CUELLO MD 03/15/19 Copy Copies To 1: BISI STILES MD, JOSHUA T MD Mar 15, 2019 05:47 POS
[2019-03-15 06:25] VITALS: BP 109/83
--- NOTE | 2019-03-15 06:30 | Diagnostic Imaging Report ---
INDICATION: Coronary disease, atrial fib COMPARISON: 01/12/2019 FINDINGS: Single view of the chest demonstrates stable cardiac enlargement. Sternal wires midline. Lungs are clear. There is no pneumothorax. Osseous structures normal. IMPRESSION: No acute cardiopulmonary findings. Dictated by: Dictated on workstation # [id number]
--- OUTSIDE RECORDS SUMMARY | 2019-04-07 22:01 | XMS REPORT | Clinical Summary ---
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 If you d o not see the information that you expected, contact Release of Information in [facility] [employer] Information Management department at [phone] for further assistan ce in locating additional records.[facility] Allergies Not on File Medications End Date Status POS Medication Sig Dispensed Refills Start SP Date SP Active SP pravastatin (PRAVACHOL) Take 80 mg by 0 SP 80 mg tablet mouth at SP bedtime SP daily. SP Active SP pentoxifylline ER Take 400 mg 0 SP (TRENTAL) 400 mg tablet by mouth SP three times SP daily. Take SP with food. SP Active SP montelukast (SINGULAIR) Take 10 mg by 0 SP 10 mg tablet mouth at SP bedtime SP daily. SP Active SP cilostazol(+) (PLETAL) Take 100 mg 0 SP 100 mg tablet by mouth SP twice daily. SP Take on an SP empty stomach SP at least 30 SP minutes SP before or 2 SP hours after SP food. SP Active SP aspirin EC 81 mg tablet Take 81 mg by 0 SP mouth daily. SP Take with SP food. SP Active SP apixaban (ELIQUIS) 5 mg Take 5 mg by 0 SP tablet mouth twice SP daily. SP Active SP enalapril (VASOTEC) 5 mg Take 5 mg by 0 SP tablet mouth daily. SP Active SP fenofibrate (FENOGLIDE) Take 134 mg 0 SP 120 mg tablet by mouth SP daily. Take SP with food. SP Active SP metoprolol tartrate Take 25 mg by 0 SP (LOPRESSOR) 25 mg tablet mouth twice SP daily. SP Active SP dronedarone (MULTAQ) 400 Take 400 mg 0 SP mg tablet by mouth SP twice daily SP with meals. SP Active SP glipiZIDE (GLUCOTROL) 10 Take 10 mg by 0 SP mg tablet mouth daily. SP Active SP digoxin (LANOXIN) 125 mcg Take 125 mcg 0 SP tablet by mouth SP daily. SP Active SP traZODone (DESYREL) 50 mg Take 50 mg by 0 SP tablet mouth at SP bedtime as SP needed for SP Sleep. SP Active SP naproxen (NAPROSYN) 250 Take 250 mg 0 SP mg tablet by mouth SP twice daily SP with meals. SP Take with SP food. SP Active SP baclofen (LIORESAL) 10 mg Take 10 mg by 0 SP tablet mouth three SP times daily. SP Active SP nitroglycerin (NITRODUR) Apply 1 Patch 0 SP 0.1 mg/hr patch to top of SP skin as SP directed SP daily. SP Active SP nitroglycerin (NITROSTAT) Place 0.4 mg 0 SP 0.4 mg tablet under tongue SP every 5 SP minutes as SP needed for SP Chest Pain. SP Max of 3 SP tablets, call SP 911. SP Active SP gabapentin (NEURONTIN) Take 300 mg 0 SP 300 mg capsule by mouth SP every 8 SP hours. SP Active SP insulin aspart (NOVOLOG) Inject 5 0 SP 100 unit/mL injection Units under SP the skin SP three times SP daily with SP meals. SP Active Problems Problem Noted Date POS Coronary artery disease involving [place] coronary art tierney 10/24/2016 SP Overview: SP 2000 CABG x 4 SP 02/17/12 PTCA BMS to vein graft to the O M SP 03/02/16 severe in-stent restenosis in the SVG to the OM with successful SP PCI, no residual stenosis, patent VG to RCA VG to the diag artery and AMANDA SP to the LAD SP occluded [place] vessels proximally, sma ll vessel disease distally SP 09/25/16 LHC - severe [place] disease, p atent graft to RCA, diagonal LAD, SP probably occluded graft to OM - felt to be reason for chest pain SP in stent severe restenosis in the SVG t o OM with successfull PCI, no SP residual disease SP PVD (peripheral vascular disease) 10/24/2016 SP Overview: SP 03/02/16 peripheral angio: severe PAD with total occlusion of the post SP tibial and peroneal artery at the trifu rcation, SP level reconstructed by collateral down at the ankle with occlusion at the SP ant tibial artery at the ankle level. SP Mod PAD on LLE down to the trifurcation SP Carotid artery disease 10/24/2016 SP Overview: SP 10/19/16 carotid US - mild stenosis, nono bstructive disease bilaterally SP PAF (paroxysmal atrial fibrillation) 10/24/2016 SP Overview: SP 03/24/16 LINQ implantation SP Essential hypertension 10/24/2016 SP Hyperlipidemia 10/24/2016 SP DJD (degenerative joint disease) 10/24/2016 SP Cardiac device in situ 10/24/2016 SP Social History Date POS Tobacco Use Types Packs/Day Years Used SP Quit: 10/25/1999 SP Former Smoker 3 SP Drinks/Week oz/Week Comments POS Alcohol Use SP SP No SP Sex Assigned at Date Recorded SP Not on file SP Industry POS Job Start Date Occupation SP Not on file SP Not on file Not on file SP Travel End POS Travel History Travel Start SP No recent travel history available. SP Last Filed Vital Signs Reading Time Taken Comments POS Vital Sign SP 106/60 10/24/2016 1:05 PM CDT SP Blood Pressure SP 60 10/24/2016 1:05 PM CDT SP Pulse SP - - SP Temperature SP - - SP Respiratory Rate SP - - SP Oxygen Saturation SP - - SP Inhaled Oxygen SP Concentration SP 90.3 kg (199 lb) 10/24/2016 1:05 PM CDT SP Weight SP 182.9 cm (6') 10/24/2016 1:05 PM CDT SP Height SP 26.99 10/24/2016 1:05 PM CDT SP Body Mass Index SP Plan of Treatment Health Maintenance Due Date Last Done Comments POS MEDICARE ANNUAL WELLNESS 1942 SP VISIT SP DTAP/TDAP VACCINES (1 - 1960 SP Tdap) SP PHYSICAL (COMPREHENSIVE) 1960 SP EXAM SP SHINGLES RECOMBINANT 1992 SP VACCINE (1 of 2) SP PNEUMONIA (PCV13/PPSV23) 2007 SP VACCINES (1 of 2 - PCV13) SP INFLUENZA VACCINE 12/12/2018 SP Implants Device Identifier Shelf Expiration Date Model / Serial / L ot POS Implanted Type Area Manufactur SP er SP SP Loop Recorder Loop SP Recorder SP Results Not on filefrom Last 3 Months Insurance Type POS Payer Benefit Subscriber ID Effective Phone Address SP Plan / Dates SP Group SP Medicare SP MEDICARE MEDICARE xxxxxxxxxx 1995- [place] [id number] SP Advance Directives 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
== END 2019-03-15 06:25 | disposition home or self-care (01) ==
LOC: EDUNIT# 04:12 → ER 04:13
DX: I48.92 Unspecified atrial flutter (principal); I48.91 Unspecified atrial fibrillation; J44.9 Chronic obstructive pulmonary disease, unspecified; I10 Essential (primary) hypertension; E11.9 Type 2 diabetes mellitus without complications; F41.9 Anxiety disorder, unspecified; E78.00 Pure hypercholesterolemia, unspecified; I25.2 Old myocardial infarction; I25.10 Atherosclerotic heart disease of native coronary artery without angina pectoris; K21.9 Gastro-esophageal reflux disease without esophagitis; Z86.73 Personal history of transient ischemic attack (TIA), and cerebral infarction without residual deficits; Z79.01 Long term (current) use of anticoagulants; Z88.6 Allergy status to analgesic agent; Z88.0 Allergy status to penicillin; Z88.8 Allergy status to other drugs, medicaments and biological substances; Z79.4 Long term (current) use of insulin; Z87.891 Personal history of nicotine dependence; Z95.1 Presence of aortocoronary bypass graft; Z95.5 Presence of coronary angioplasty implant and graft; Z96.653 Presence of artificial knee joint, bilateral; Z82.49 Family history of ischemic heart disease and other diseases of the circulatory system
CPT/HCPCS: 36415; 71045; 80053; 82962; 83735; 83874; 84484; 85025; 85610; 85730; 93005; 93041; 96365

== ENCOUNTER 2019-04-06 15:50 | Emergency (ER) | payer MEDICARE, MEDICAID ==
[~2019-04-06] VITALS: Ht 180.7 cm; Wt 81.2 kg
[~2019-04-06 15:50] MED LIST changes: -DIGO125T3 PO; +DILT240C53 PO; +ENAL5TAB; -ENLP5T; +TAMS0.4C98 PO; -TMSL.4C PO; +TRAM50TA2 PO; +TRAZ-222 PO; -TRZ50T PO
[2019-04-06] MEDS ORDERED: HYDR-4226 PO (16:14)
[2019-04-06] MEDS ORDERED: PRD20T PO (16:14)
--- NOTE | 2019-04-06 16:14 | ED Lower Extremity ---
General Chief Complaint: Lower Extremity Stated Complaint: L LEG HEAVINESS/PAIN Source: patient Exam Limitations: no limitations History of Present Illness Date Seen by Provider: Apr 06, 2019 Time Seen by Provider: 16:09 Initial Comments Awakened with left leg heaviness this morning. History of "bad back". Pain starts in her back and goes all the way down the leg and foot. No fever no chills no injury. Onset: just prior to arrival Severity: moderate Pain/Injury Location: left leg Method of Injury: unknown Modifying Factors: Worse With Movement Allergies and Home Medications Allergies Coded Allergies: celecoxib (Unverified Allergy, Mild, TAKES ASPIRIN AT HOME, 01/28/19) diclofenac (Unverified Allergy, Mild, TAKES ASPIRIN AT HOME, 01/28/19) naproxen (Unverified Allergy, Mild, TAKES ASPIRIN AT HOME, 01/28/19) rosuvastatin (Unverified Allergy, Mild, 01/28/19) Penicillins (Verified Allergy, Unknown, 01/28/19) amoxicillin (Verified Allergy, Unknown, 01/28/19) fenofibrate (Unverified Allergy, Unknown, 01/28/19) simvastatin (Unverified Allergy, Unknown, 01/28/19) Uncoded Allergies: GEMIFIBOROZIL (Allergy, Unknown, 06/05/16) Home Medications Amiodarone HCl 200 Mg Tablet, 200 MG PO BID, (Reported) Apixaban 5 Mg Tablet, 5 MG PO BID, (Reported) Baclofen 10 Mg Tablet, 10 MG PO TID PRN for MUSCLE SPASMS, (Reported) Cholecalciferol (Vitamin D3) 2,000 Unit Capsule, 2,000 UNIT PO DAILY, (Reported) Clonidine HCl 0.1 Mg Tablet, 0.1 MG PO DAILY PRN for SYSTOLIC BLOOD PRESSURE, (Reported) Cyclobenzaprine HCl 10 Mg Tablet, 10 MG PO TID PRN for SPASMS Prescribed by: RODOLFO GODWIN on 01/23/19 1043 Digoxin 125 Mcg Tablet, 125 MCG PO DAILY, (Reported) Diltiazem HCl 120 Mg Cap.er.24h, 120 MG PO DAILY Prescribed by: CHARO SCHNEIDER on 11/08/18 1704 Diltiazem HCl 240 Mg Cap.er.24h, 240 MG PO DAILY Prescribed by: RODOLFO GODWIN on 03/15/19 0544 Fenofibrate,Micronized 134 Mg Capsule, 134 MG PO DAILY, (Reported) Gabapentin 300 Mg Capsule, 600 MG PO HS, (Reported) TAKES 2 (300 MG) CAPSULES Hyoscyamine Sulfate 0.125 Mg Tab.subl, 1-2 TAB SL Q4H Prescribed by: ROMAIN KNIGHT on 07/31/18 0411 Insulin Detemir 100 Unit/1 Ml Insuln.pen, 25 UNIT SQ BID, (Reported) Montelukast Sodium 10 Mg Tablet, 10 MG PO HS, (Reported) Nitroglycerin 0.4 Mg Tab.subl, 0.4 MG SL UD PRN for CHEST PAIN, (Reported) MAX OF 3 TABS IN 15 MINUTES / CALL 911 IF PAIN REMAINS AFTER 5 MINUTES Ondansetron 4 Mg Tab.rapdis, 4 MG PO Q6H PRN for NAUSEA/VOMITING Prescribed by: WENDY SARMIENTO on 02/18/19 1308 Pantoprazole Sodium 40 Mg Tablet.dr, 40 MG PO DAILY Prescribed by: RODOLFO GODWIN on 07/24/18 1843 Pentoxifylline 400 Mg Tablet.er, 400 MG PO TID, (Reported) Pravastatin Sodium 80 Mg Tablet, 80 MG PO HS, (Reported) Tamsulosin HCl 0.4 Mg Cap, 0.4 MG PO DAILY, (Reported) Topiramate 25 Mg Tablet, 25 MG PO DAILY, (Reported) Tramadol HCl 50 Mg Tablet, 25-50 MG PO Q6H PRN for PAIN-MODERATE Prescribed by: RODOLFO GODWIN on 01/23/19 1043 Trazodone HCl 50 Mg Tablet, 50 MG PO HS, (Reported) Zolpidem Tartrate 10 Mg Tablet, 10 MG PO HS, (Reported) Patient Home Medication List Home Medication List Reviewed: Yes Review of Systems Constitutional: see HPI EENTM: see HPI Respiratory: no symptoms reported Cardiovascular: no symptoms reported Genitourinary: no symptoms reported Musculoskeletal: see HPI, back pain Skin: no symptoms reported Psychiatric/Neurological: No Symptoms Reported Past Wsxpsah-Talsac-Tsrfdc Hx Patient Social History Alcohol Use: Denies Use Number of Drinks Today: AA Alcohol Beverage of Choice: Beer Recreational Drug Use: No Smoking Status: Former Smoker Type Used: Cigarettes Former Smoker, Quit: Apr 12, 2000 2nd Hand Smoke Exposure: No Recent Foreign Travel: No Contact w/Someone Who Travel: No Recent Hopitalizations: No Physical Abuse: No Sexual Abuse: No Mistreated: No Fear: No Immunizations Up To Date Tetanus Booster (TDap): Less than 5yrs PED Vaccines UTD: No Date of Pneumonia Vaccine: May 22, 2017 Date of Influenza Vaccine: Mar 08, 2018 Seasonal Allergies Seasonal Allergies: No Past Medical History Surgeries: Yes (CORONARY BYPASS X4, BILAT TKR, STENTS IN LEGS) Abdominal, Angioplasty, Cardiac, CABG, Coronary Stent, Eye Surgery, Gallbladder, Joint Replacement, Open Heart Surgery, Orthopedic, Vascular Surgery Respiratory: Yes (CHRONIC DYSPNEA ON EXERTION) Sleep Apnea, COPD Currently Using CPAP: No Currently Using BIPAP: No Cardiac: Yes Atrial Fibrillation, Chronic Edema/Swelling, Coronary Artery Disease, Heart Attack, High Cholesterol, Hypertension, Peripheral Vascular Neurological: Yes (POSSIBLE STROKE/ TIA) Stroke, TIA Reproductive Disorders: No Sexually Transmitted Disease: No HIV/AIDS: No Genitourinary: Yes (RENAL INSUFFICIENCY) Benign Prostatic Hyperpl, Prostate Problems, Renal Failure Gastrointestinal: Yes (GASTROPARESIS) Abdominal Hernia, Gastroesophageal Reflux, Chronic Constipation, Diverticulosis, Pancreatitis, Polyps, Gall Bladder Disease Musculoskeletal: Yes (OLECRANON BURSITIS, CHRONIC NECK PAIN, DISH SYNDROME) Degenerate Disk Disease, Arthritis, Chronic Back Pain Endocrine: Yes Diabetes, Insulin dep HEENT: Yes Cataract Loss of Vision: Denies Hearing Impairment: Denies Cancer: No Psychosocial: Yes Anxiety Integumentary: No Blood Disorders: No Adverse Reaction/Blood Tranf: No (N/A) Family Medical History Cancer G8 BROTHER Cataract 19 FATHER 19 MOTHER G8 BROTHER G8 BROTHER G8 SISTER Congestive heart failure 19 FATHER 19 MOTHER Family history: Arthritis 19 FATHER 19 MOTHER G8 BROTHER G8 BROTHER G8 SISTER G8 SISTER DAUGHTER SON Family history: Breast disease DAUGHTER Family history: Cardiovascular disease 19 FATHER Family history: Diabetes mellitus 19 FATHER G8 BROTHER G8 SISTER Family history: Hypertension 19 FATHER 19 MOTHER G8 BROTHER G8 BROTHER G8 SISTER G8 SISTER DAUGHTER SON Family history: Thyroid disorder DAUGHTER Heart disease 19 FATHER 19 MOTHER G8 BROTHER Hypercholesterolemia 19 FATHER 19 MOTHER G8 BROTHER G8 BROTHER G8 SISTER Myocardial infarction 19 FATHER 19 MOTHER G8 BROTHER No Family History of: Abdominal aortic aneurysm Robel's disease Alcoholism Aphasia Cancer of colon Chest pain Congenital heart disease Cystic fibrosis Dementia Dysphagia Family history: Allergy Family history: Alzheimer's disease Family history: Asthma Family history: Coronary thrombosis Family history: Gastrointestinal disease Family history: Glaucoma Family history: Osteoporosis Headache Hearing loss Hereditary disease History of - anemia History of - disorder History of - respiratory disease History of drug abuse Human immunodeficiency virus (HIV) seropositivity Infertile Kidney disease Malignant neoplasm of lung Parkinson's disease Prostate cancer Psychotic disorder Seizure disorder Stroke Tuberculosis Visual impairment Physical Exam Vital Signs Capillary Refill : Height, Weight, BMI Height: 6'0" Weight: 180lbs. 4.0oz. 81.424677wq; 23.00 BMI Method:Stated General Appearance: WD/WN, no apparent distress HEENT: PERRL/EOMI, normal ENT inspection Neck: non-tender, full range of motion Respiratory: no respiratory distress, no accessory muscle use Gastrointestinal: normal bowel sounds, non tender Hips: bilateral hip non-tender, bilateral hip normal inspection, bilateral hip normal range of motion Legs: left leg pain, left leg other (no soft tissue tenderness no swelling, no ecchymosis or erythema strong dorsalis pedis pulse. He is already on Eliquis for atrial fibrillation.) Knees: bilateral knee non-tender, bilateral knee normal inspection, bilateral knee normal range of motion Ankles: bilateral ankle non-tender, bilateral ankle normal inspection, b ilateral ankle normal range of motion Feet: bilateral foot non-tender, bilateral foot normal inspection, bilateral foot normal range of motion Neurologic/Psychiatric: alert, normal mood/affect, oriented x 3 Skin: normal color, warm/dry Normal dorsiflexion of the foot and great toe. Departure Impression Primary Impression: Lumbar radiculopathy Disposition: 01 HOME, SELF-CARE Condition: Stable Departure-Patient Inst. Decision time for Depature: 16:12 Referrals: IRAJ HERRERA MD (PCP/Family) Primary Care Physician Patient Instructions: Sciatica (DC), Sciatica Exercises Add. Discharge Instructions: 1. Medication as directed 2. Return to ER for any concerns 3. All discharge instructions reviewed with patient and/or family. Voiced understanding. Scripts Hydrocodone/Acetaminophen ([place] 5-325 Tablet) 1 Each Tablet 1 TAB PO Q6H for Pain MDD 10 TABS for 7 Days, #10 TAB Prov: LEONARDO SALGADO APRN 04/06/19 Prednisone (Prednisone) 20 Mg Tab 40 MG PO DAILY, #6 TAB 0 Refills Prov: LEONARDO SALGADO APRN 04/06/19 LEONARDO SALGADO APRN Apr 06, 2019 16:14 POS
[2019-04-06 16:30] VITALS: BP 167/82
== END 2019-04-06 16:30 | disposition home or self-care (01) ==
LOC: EDUNIT# 15:50 → ER 15:51
DX: M54.16 Radiculopathy, lumbar region (principal); J44.9 Chronic obstructive pulmonary disease, unspecified; I10 Essential (primary) hypertension; E11.43 Type 2 diabetes mellitus with diabetic autonomic (poly)neuropathy; K31.84 Gastroparesis; I48.91 Unspecified atrial fibrillation; I25.2 Old myocardial infarction; E78.00 Pure hypercholesterolemia, unspecified; I25.10 Atherosclerotic heart disease of native coronary artery without angina pectoris; F41.9 Anxiety disorder, unspecified; K21.9 Gastro-esophageal reflux disease without esophagitis; Z86.73 Personal history of transient ischemic attack (TIA), and cerebral infarction without residual deficits; Z79.01 Long term (current) use of anticoagulants; Z79.4 Long term (current) use of insulin; Z87.891 Personal history of nicotine dependence; Z95.5 Presence of coronary angioplasty implant and graft; Z95.1 Presence of aortocoronary bypass graft; Z88.6 Allergy status to analgesic agent; Z88.0 Allergy status to penicillin; Z88.8 Allergy status to other drugs, medicaments and biological substances; Z82.49 Family history of ischemic heart disease and other diseases of the circulatory system
CPT/HCPCS: 99283

== ENCOUNTER 2019-07-18 15:09 | Emergency (ER) | payer MEDICARE, MEDICAID ==
[~2019-07-18] VITALS: Ht 182 cm; Wt 86.0 kg
[~2019-07-18 15:09] MED LIST changes: +DIGO125T3 PO; -ENAL5TAB; +ENLP5T; +MONT10TA26 PO; -TAMS0.4C98 PO; +TMSL.4C PO; -TRAM50TA2 PO; -TRAZ-222 PO; +TRZ50T PO
[2019-07-18 15:13] VITALS: BP 152/80
[2019-07-18] MEDS ORDERED: ORPHENADRINE 60 MG/2 ML (NORFLEX) AMP IM ONE (15:15)
[2019-07-18] MEDS ORDERED: KETOROLAC 60 MG/2 ML VIAL IM ONE (15:15)
--- NOTE | 2019-07-18 15:22 | ED Back Pain ---
General Chief Complaint: Back Problems Stated Complaint: BACK PAIN Nursing Triage Note: ARRIVED VIA AMB TO TRIAGE WITH COMPLAINTS OF BACK PAIN. STATES HIS BACK WENT OUT WHEN HE WAS MOWING LEAVES. 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 He would like an x-ray. Location: Lumbar Spine Timing/Duration: 1-3 Hours Pain/Injury Location: Back Radiation: Other Method of Injury: Unknown Associated Symptoms: lower back pain Allergies and Home Medications Allergies Coded Allergies: celecoxib (Unverified Allergy, Mild, TAKES ASPIRIN AT HOME, 01/28/19) diclofenac (Unverified Allergy, Mild, TAKES ASPIRIN AT HOME, 01/28/19) naproxen (Unverified Allergy, Mild, TAKES ASPIRIN AT HOME, 01/28/19) rosuvastatin (Unverified Allergy, Mild, 01/28/19) Penicillins (Verified Allergy, Unknown, 01/28/19) amoxicillin (Verified Allergy, Unknown, 01/28/19) fenofibrate (Unverified Allergy, Unknown, 01/28/19) simvastatin (Unverified Allergy, Unknown, 01/28/19) Uncoded Allergies: GEMIFIBOROZIL (Allergy, Unknown, 06/05/16) Home Medications Amiodarone HCl 200 Mg Tablet, 200 MG PO BID, (Reported) Apixaban 5 Mg Tablet, 5 MG PO BID, (Reported) Baclofen 10 Mg Tablet, 10 MG PO TID PRN for MUSCLE SPASMS, (Reported) Cholecalciferol (Vitamin D3) 2,000 Unit Capsule, 2,000 UNIT PO DAILY, (Reported) Clonidine HCl 0.1 Mg Tablet, 0.1 MG PO DAILY PRN for SYSTOLIC BLOOD PRESSURE, (Reported) Cyclobenzaprine HCl 10 Mg Tablet, 10 MG PO TID PRN for SPASMS Prescribed by: RODOLFO GODWIN on 01/23/19 1043 Digoxin 125 Mcg Tablet, 125 MCG PO DAILY, (Reported) Diltiazem HCl 120 Mg Cap.er.24h, 120 MG PO DAILY Prescribed by: CHARO SCHNEIDER on 11/08/18 1704 Diltiazem HCl 240 Mg Cap.er.24h, 240 MG PO DAILY Prescribed by: RODOLFO GODWIN on 03/15/19 0544 Fenofibrate,Micronized 134 Mg Capsule, 134 MG PO DAILY, (Reported) Gabapentin 300 Mg Capsule, 600 MG PO HS, (Reported) TAKES 2 (300 MG) CAPSULES Hydrocodone/Acetaminophen 1 Each Tablet, 1 TAB PO Q6H Prescribed by: LEONARDO SALGADO on 04/06/19 1614 Hyoscyamine Sulfate 0.125 Mg Tab.subl, 1-2 TAB SL Q4H Prescribed by: ROMAIN KNIGHT on 07/31/18 0411 Insulin Detemir 100 Unit/1 Ml Insuln.pen, 25 UNIT SQ BID, (Reported) Montelukast Sodium 10 Mg Tablet, 10 MG PO HS, (Reported) Nitroglycerin 0.4 Mg Tab.subl, 0.4 MG SL UD PRN for CHEST PAIN, (Reported) MAX OF 3 TABS IN 15 MINUTES / CALL 911 IF PAIN REMAINS AFTER 5 MINUTES Ondansetron 4 Mg Tab.rapdis, 4 MG PO Q6H PRN for NAUSEA/VOMITING Prescribed by: WENDY SARMIENTO on 02/18/19 1308 Pantoprazole Sodium 40 Mg Tablet.dr, 40 MG PO DAILY Prescribed by: RODOLFO GODWIN on 07/24/18 1843 Pentoxifylline 400 Mg Tablet.er, 400 MG PO TID, (Reported) Pravastatin Sodium 80 Mg Tablet, 80 MG PO HS, (Reported) Prednisone 20 Mg Tab, 40 MG PO DAILY Prescribed by: LEONARDO SALGADO on 04/06/19 1614 Tamsulosin HCl 0.4 Mg Cap, 0.4 MG PO DAILY, (Reported) Topiramate 25 Mg Tablet, 25 MG PO DAILY, (Reported) Tramadol HCl 50 Mg Tablet, 25-50 MG PO Q6H PRN for PAIN-MODERATE Prescribed by: RODOLFO GODWIN on 01/23/19 1043 Trazodone HCl 50 Mg Tablet, 50 MG PO HS, (Reported) Zolpidem Tartrate 10 Mg Tablet, 10 MG PO HS, (Reported) Patient Home Medication List Home Medication List Reviewed: Yes Review of Systems Constitutional: see HPI EENTM: see HPI Respiratory: no symptoms reported Cardiovascular: no symptoms reported Genitourinary: no symptoms reported Musculoskeletal: see HPI, back pain Skin: no symptoms reported Psychiatric/Neurological: No Symptoms Reported Past Ulmeing-Mmpnxr-Dbqzvu Hx Patient Social History Alcohol Use: Occasionally Uses Number of Drinks Today: AA Alcohol Beverage of Choice: Beer Recreational Drug Use: No Type Used: Cigarettes Former Smoker, Quit: Apr 12, 2000 2nd Hand Smoke Exposure: No Recent Foreign Travel: No Contact w/Someone Who Travel: No Recent Infectious Disease Expo: No Recent Hopitalizations: No Immunizations Up To Date Tetanus Booster (TDap): Less than 5yrs PED Vaccines UTD: No Date of Pneumonia Vaccine: May 22, 2017 Date of Influenza Vaccine: Mar 08, 2018 Seasonal Allergies Seasonal Allergies: No Past Medical History Surgeries: Yes (CORONARY BYPASS X4, BILAT TKR, STENTS IN LEGS) Abdominal, Angioplasty, Cardiac, CABG, Coronary Stent, Eye Surgery, Gallbladder, Joint Replacement, Open Heart Surgery, Orthopedic, Vascular Surgery Respiratory: Yes (CHRONIC DYSPNEA ON EXERTION) Sleep Apnea, COPD Currently Using CPAP: No Currently Using BIPAP: No Cardiac: Yes Atrial Fibrillation, Chronic Edema/Swelling, Coronary Artery Disease, Heart Attack, High Cholesterol, Hypertension, Peripheral Vascular Neurological: Yes (POSSIBLE STROKE/ TIA) Stroke, TIA Reproductive Disorders: No Sexually Transmitted Disease: No HIV/AIDS: No Genitourinary: Yes (RENAL INSUFFICIENCY) Benign Prostatic Hyperpl, Prostate Problems, Renal Failure Gastrointestinal: Yes (GASTROPARESIS) Abdominal Hernia, Gastroesophageal Reflux, Chronic Constipation, Diverticulosis, Pancreatitis, Polyps, Gall Bladder Disease Musculoskeletal: Yes (OLECRANON BURSITIS, CHRONIC NECK PAIN, DISH SYNDROME) Degenerate Disk Disease, Arthritis, Chronic Back Pain Endocrine: Yes Diabetes, Insulin dep HEENT: Yes Cataract Loss of Vision: Denies Hearing Impairment: Denies Cancer: No Psychosocial: Yes Anxiety Integumentary: No Blood Disorders: No Adverse Reaction/Blood Tranf: No (N/A) Family Medical History Cancer G8 BROTHER Cataract 19 FATHER 19 MOTHER G8 BROTHER G8 BROTHER G8 SISTER Congestive heart failure 19 FATHER 19 MOTHER Family history: Arthritis 19 FATHER 19 MOTHER G8 BROTHER G8 BROTHER G8 SISTER G8 SISTER DAUGHTER SON Family history: Breast disease DAUGHTER Family history: Cardiovascular disease 19 FATHER Family history: Diabetes mellitus 19 FATHER G8 BROTHER G8 SISTER Family history: Hypertension 19 FATHER 19 MOTHER G8 BROTHER G8 BROTHER G8 SISTER G8 SISTER DAUGHTER SON Family history: Thyroid disorder DAUGHTER Heart disease 19 FATHER 19 MOTHER G8 BROTHER Hypercholesterolemia 19 FATHER 19 MOTHER G8 BROTHER G8 BROTHER G8 SISTER Myocardial infarction 19 FATHER 19 MOTHER G8 BROTHER No Family History of: Abdominal aortic aneurysm Marblehead's disease Alcoholism Aphasia Cancer of colon Chest pain Congenital heart disease Cystic fibrosis Dementia Dysphagia Family history: Allergy Family history: Alzheimer's disease Family history: Asthma Family history: Coronary thrombosis Family history: Gastrointestinal disease Family history: Glaucoma Family history: Osteoporosis Headache Hearing loss Hereditary disease History of - anemia History of - disorder History of - respiratory disease History of drug abuse Human immunodeficiency virus (HIV) seropositivity Infertile Kidney disease Malignant neoplasm of lung Parkinson's disease Prostate cancer Psychotic disorder Seizure disorder Stroke Tuberculosis Visual impairment Physical Exam Vital Signs Vital Signs - First Documented 07/18/19 15:13 Temp 37.0 Pulse 69 Resp 16 B/P (MAP) 152/80 (104) Pulse Ox 99 O2 Delivery Room Air Capillary Refill : Less Than 3 Seconds Height, Weight, BMI Height: 6'0" Weight: 180lbs. 4.0oz. 81.344405tk; 25.00 BMI Method:Stated General Appearance: No Apparent Distress, WD/WN HEENT: PERRL/EOMI, TMs Normal Neck: Full Range of Motion, Normal Inspection Respiratory: No Accessory Muscle Use, No Respiratory Distress Gastrointestinal: Non Tender, Soft Back: Normal Inspection Extremity: Normal Capillary Refill, Normal Inspection Neurologic/Psychiatric: Alert, Oriented x3 Skin: Normal Color, Warm/Dry Progress/Results/Core Measures Results/Orders My Orders Orders - LEONARDO SALGADO APRN Ketorolac Injection (Toradol Injection) (07/18/19 15:15) Orphenadrine Injection (Norflex Injectio (07/18/19 15:15) Lumbar Spine - 2-3 Views (07/18/19 15:29) Medications Given in ED Current Medications Medications Dose Ordered Sig/Alka Route Start Time Stop Time Status Last Admin Dose Admin Ketorolac Tromethamine 30 mg ONCE ONCE IM 07/18/19 15:15 07/18/19 15:16 DC 07/18/19 15:27 30 MG Orphenadrine Citrate 60 mg ONCE ONCE IM 07/18/19 15:15 07/18/19 15:16 DC 07/18/19 15:26 60 MG Vital Signs/I&O 07/18/19 15:13 Temp 37.0 Pulse 69 Resp 16 B/P (MAP) 152/80 (104) Pulse Ox 99 O2 Delivery Room Air Blood Pressure Mean: 104 Departure Impression Primary Impression: Back strain Qualified Codes: S39.012A - Strain of muscle, fascia and tendon of lower back, initial encounter Disposition: HOME, SELF-CARE Condition: Stable Departure-Patient Inst. Decision time for Depature: 15:21 Referrals: IRAJ HERRERA MD (PCP/Family) Primary Care Physician Patient Instructions: Lumbar Muscle Strain (DC) LEONARDO SALGADO BEVELER Jul 18, 2019 15:22
--- NOTE | 2019-07-18 16:03 | Diagnostic Imaging Report ---
INDICATION: Back pain. TIME OF EXAM: 3:42 PM FINDINGS: Curvature and alignment is normal. There is a chronic compression fracture deformity involving L1 vertebral body. This is similar to CT study performed on 07/31/2018. Remaining lumbar vertebrae show normal stature. There is generalized spondylosis with variable disc space narrowing and marginal osteophyte formation. Aorta is heavily calcified. Multilevel facet arthropathy is seen. IMPRESSION: Chronic changes, as described. No acute compression fracture is detected. Dictated by: Dictated on workstation # [id number]
--- OUTSIDE RECORDS SUMMARY | 2019-07-22 15:49 | XMS REPORT | Clinical Summary ---
Author Author [facility] Organization [facility] Address Unknown Phone Unavailable Care Team Providers Care Guest Advisor Name Role Phone Chance Ward PCP Source Comments Some departments are not documenting in the electronic medical record. 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 10/24/2016 Overview: 2000 CABG x 4 02/17/12 PTCA BMS to vein graft to the O M 03/02/16 severe in-stent restenosis in the SVG to the OM with successful PCI, no residual stenosis, patent VG to RCA VG to the diag artery and AMANDA to the LAD occluded [place] vessels proximally, sma ll vessel disease distally 09/25/16 [facility] - severe [place] disease, p atent graft to RCA, diagonal LAD, probably occluded graft to OM - felt to be reason for chest pain in stent severe restenosis in the SVG t o OM with successfull PCI, no residual disease PVD (peripheral vascular disease) 10/24/2016 Overview: 03/02/16 peripheral angio: severe PAD with total occlusion of the post tibial and peroneal artery at the trifu rcation, level reconstructed by collateral down at the ankle with occlusion at the ant tibial artery at the ankle level. Mod PAD on LLE down to the trifurcation Carotid artery disease 10/24/2016 Overview: 10/19/16 carotid US - mild stenosis, nono bstructive disease bilaterally PAF (paroxysmal atrial fibrillation) 10/24/2016 [...] Health Maintenance Due Date Last Done Comments MEDICARE ANNUAL WELLNESS 1942 VISIT DTAP/TDAP VACCINES (1 - 1953 Tdap) PHYSICAL (COMPREHENSIVE) 1960 EXAM SHINGLES RECOMBINANT 1992 VACCINE (1 of 2) PNEUMONIA (PCV13/PPSV23) 2007 VACCINES (1 of 2 - PCV13) INFLUENZA VACCINE 12/12/2018 Implants Device Identifier Shelf Expiration Date Model / Serial / L ot Implanted Type Area Manufactur er Loop Recorder Loop Recorder Results Not on filefrom Last 3 Months Insurance Type Payer Benefit Subscriber ID Effective Phone Address Plan / Dates Group Medicare MEDICARE MEDICARE xxxxxxxxxx 1995- PART A AND Present B [id number] Advance Directives Patient Physician Assistant Explanation Type Date Recorded Advance Directive/DPOA
--- OUTSIDE RECORDS SUMMARY | 2019-07-22 16:07 | XMS REPORT | Continuity of Care Document ---
Author Organization Unknown Address Unknown Phone Unavailable Allergies Active Description Code Type Severity Reaction Onset Reported/Identified Relationship to Patient Clinical Status Yes NO KNOWN DRUG ALLERGIES UNKNOWN UNKNOWN Yes morphine [id number] Drug Allergy Unknown N/A 08/03/2005 Yes celecoxib [id number] Drug Allergy Mild N/A 08/14/2008 Yes naproxen [id number] Drug Allergy Mild N/A 08/14/2008 Yes diclofenac [id number] Drug Allerg y Mild N/A 09/15/2008 Yes morphine [id number] Drug Allergy Unknown TAKES HYDROCODO 07/17/2014 Yes GEMIFIBOROZIL GEMIFIBOROZIL Unknown N/A 06/05/2016 Yes celecoxib [id number] Drug Allergy Mild TAKES ASPIRIN A 01/28/2019 Yes diclofenac [id number] Drug Allerg y Mild TAKES ASPIRIN A 01/28/2019 Yes naproxen [id number] Drug Allergy Mild TAKES ASPIRIN A 01/28/2019 Yes rosuvastatin [id number] Drug Allergy Mild N/A 01/28/2019 Yes amoxicillin [id number] Drug Aller gy Unknown N/A 01/28/2019 Yes fenofibrate [id number] Drug Aller gy Unknown N/A 01/28/2019 Yes Penicillins [id number] Drug Aller gy Unknown N/A 01/28/2019 Yes simvastatin [id number] Drug Aller gy Unknown N/A 01/28/2019 Medications Medication Packaging Start Date St op Date Route Dosage Sig NEOSYNEPHRINE NASAL SPRAY LI Q 1 % (PHENYLEPHRINE NS) spray 06/16/2019 06/16/2019 ONCE&1415 COCAINE 4% SOLUTION LIQ 4 % wilils 06/16/2019 06/16/2019 ONCE&1415 HYDROCODONE/APAP 5MG/325MG T AB 5 MG/325MG (ISABEL-TAB 5/325) TAB 06/16/2019 06/16/2019 ONCE&1535 Problems Date Dx Coded Attending Type Code Diagnosis Diagnosed By 04/12/1549 SHARON DOUGHERTY, IRAJ Law Ot D50. 8 OTHER IRON DEFICIENCY ANEMIAS 04/12/1549 SHARON DOUGHERTY, IRAJ Law Ot I95. 89 OTHER HYPOTENSION 04/12/1549 IRAJ HERRERA MD Ot R53. 83 OTHER FATIGUE 02/17/2010 Ot 401.9 02/17/2010 Ot 553.3 02/17/2010 [...] V58.66 03/09/2010 Ot V58.69 04/25/2010 Ot 531.90 STO MACH ULCER NOS 05/27/2010 Ot 530.81 ESO PHAGEAL REFLUX 05/27/2010 Ot 789.06 ABD OMINAL PAIN, EPIGASTRIC 05/31/2010 Ot 250.00 CASTRO B NAIDA WO COMPL, TYPE II OR UNSPEC TY 05/31/2010 Ot 272.4 HYPE RLIPIDEMIA NEC/NOS 05/31/2010 Ot 401.9 HYPE RTENSION NOS 05/31/2010 Ot 414.00 COR ON ATHEROSCLER NOS TYPE VESSEL, NATIV 05/31/2010 Ot 577.0 ACUT E PANCREATITIS 05/31/2010 Ot V45.81 AOR TOCORONARY BYPASS 10/19/2010 Ot 989.5 TOXI C EFFECT VENOM 10/19/2010 Ot E000.8 OTH ER EXTERNAL CAUSE STATUS 10/19/2010 Ot E849.0 ACC IDENT IN HOME 10/19/2010 Ot E905.3 HOR NET/WASP/BEE STING 11/12/2010 Ot 250.00 CASTRO B NAIDA WO COMPL, TYPE II OR UNSPEC TY 11/12/2010 Ot 272.4 HYPE RLIPIDEMIA NEC/NOS 11/12/2010 Ot 401.9 HYPE RTENSION NOS 11/12/2010 Ot 727.05 TEN OSYNOV HAND/WRIST NEC 11/12/2010 Ot 729.5 PAIN IN LIMB 03/14/2011 Ot 922.2 CONT USION ABDOMINAL WALL 03/14/2011 Ot 959.12 OTH INJURY OF ABDOMEN 03/14/2011 Ot E000.8 OT ER EXTERNAL CAUSE STATUS 03/14/2011 Ot E029.9 OT ER ACTIVITY 03/14/2011 Ot E849.0 ACC IDENT IN HOME 03/14/2011 Ot E917.9 STR UCK BY OBJ/PERSON NEC 06/03/2011 Ot 518.0 PULM ONARY COLLAPSE 06/03/2011 Ot 530.81 ESO PHAGEAL REFLUX 06/03/2011 Ot 789.06 ABD OMINAL PAIN, EPIGASTRIC 06/22/2011 Ot 530.11 REF LUX ESOPHAGITIS 06/22/2011 Ot 535.50 UNS P GASTRITIS GASTRODUODENITIS W/O ME 06/22/2011 Ot 553.3 DIAP HRAGMATIC HERNIA 11/29/2011 Ot 530.81 ESO PHAGEAL REFLUX 11/29/2011 Ot 789.00 ABD OMINAL PAIN, UNSPECIFIED SITE 12/18/2011 Ot 729.5 PAIN IN LIMB 12/18/[address] PAIN NOS 01/30/2012 Ot 530.81 ESO PHAGEAL REFLUX 01/30/2012 Ot 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 04/19/2012 Ot 250.00 CASTRO B NAIDA WO COMPL, TYPE II OR UNSPEC TY 04/19/2012 Ot 272.4 HYPE RLIPIDEMIA NEC/NOS 04/19/2012 Ot 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 8 STOMACH FUNCTION DIS NEC 10/26/2012 TRELL STARKEY MD Ot 789. 06 ABDOMINAL PAIN, EPIGASTRIC 12/24/2012 RONAL RIVERA ELENI Carlos Ot 715.31 LOC OSTEOARTH NOS-SHLDER 12/24/2012 RONAL RIVERA ELENI Gonzalez Ot 726.12 BICIPITAL TENOSYNOVITIS 12/24/2012 RONAL RIVERA ELENI Carlos Ot 726.13 PARTIAL TEAR OF ROTATOR CUFF 12/24/2012 ELENI VILLEDA DO Ot 727.89 SYNOV/TEND/BURSA DIS NEC 12/24/2012 RONAL RIVERA ELENI Gonzalez Ot V58.69 OTH MED,LT,CURRENT USE 04/23/2013 SARAH CALLAWAY MD Ot 530.11 REFLUX ESOPHAGITIS 04/23/2013 SARAH CALLAWAY MD Ot 535.50 UNSP GASTRITIS GASTRODUODENITIS W/O ME 07/19/2013 JENN CARBAJAL Ot 530.81 ESOPHAGEAL REFLUX 07/19/2013 JENN CARBAJAL Ot 787.91 DIARRHEA 07/19/2013 JENN CARBAJAL Ot 789.06 ABDOMINAL PAIN, EPIGASTRIC 08/12/2013 ELENI VILLEDA DO Ot 726.91 EXOSTOSIS, SITE NOS 09/13/2013 TRELL STARKEY MD Ot 577. 0 ACUTE PANCREATITIS 09/13/2013 TRELL STARKEY MD Ot 786. 50 CHEST PAIN NOS 09/14/2013 JENN CARBAJAL Ot 535.50 UNSP GASTRITIS GASTRODUODENITIS W/O ME 09/14/2013 JENN CARBAJAL Ot 577.0 ACUTE PANCREATITIS 09/14/2013 JENN CARBAJAL Ot 789.06 ABDOMINAL PAIN, EPIGASTRIC 09/28/2013 JENN CARBAJAL Ot 719.42 JOINT PAIN-UP/ARM 09/28/2013 JENN CARBAJAL Ot 726.33 OLECRANON BURSITIS 11/05/2013 PARIS DOUGHERTY, SONIA R Ot 250. 00 DIAB NAIDA WO COMPL, TYPE II OR UNSPEC TY 11/05/2013 PARIS DOUGHERTY, SONIA Joseph Ot 272. 0 PURE HYPERCHOLESTEROLEM 11/05/2013 PARIS DOUGHERTY, SONIA R Ot 403. 90 HYPTNSV CHR KID DIS, UNSPEC, W CHR KD ST 11/05/2013 PARIS DOUGHERTY, SONIA R Ot 412 OLD MYOCARDIAL INFARCT 11/05/2013 SONIA TOLEDO MD Ot 414. 00 CORON ATHEROSCLER NOS TYPE VESSEL, NATIV 11/05/2013 SONIA TOLEDO MD R Ot 427. 31 ATRIAL FIBRILLATION 11/05/2013 SONIA TOLEDO MD R Ot 530. 81 ESOPHAGEAL REFLUX 11/05/2013 SONIA TOLEDO MD R Ot 560. 9 INTESTINAL OBSTRUCT NOS 11/05/2013 SONIA TOLEDO MD R Ot 577. 0 ACUTE PANCREATITIS 11/05/2013 SONIA TOLEDO MD R Ot 585. 9 CHRONIC KIDNEY DISEASE, UNSPECIFIED 11/05/2013 SNOIA TOLEDO MD R Ot 715. 90 OSTEOARTHROS NOS-UNSPEC 11/05/2013 SONIA TOLEDO MD R Ot V15. 82 HISTORY OF TOBACCO USE 11/05/2013 SONIA TOLEDO MD R Ot V45. 81 AORTOCORONARY BYPASS 11/05/2013 SOINA TOLEDO MD R Ot V45. 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 03/20/2014 DMITRY MEZA MD Ot V15.82 HISTORY OF TOBACCO USE 03/20/2014 DMITRY MEZA MD Ot V45.81 AORTOCORONARY BYPASS 03/20/2014 DMITRY MEZA MD, Ot V58.69 OTH MED,LT,CURRENT USE 04/08/2014 LLUVIA ROUSE DO Ot 272.4 04/08/2014 LLUVIA ROUSE DO Ot 789.00 04/20/2014 LLUVIA ROUSE DO Ot 272.4 04/20/2014 LLUVIA ROUSE DO Ot 789.00 05/13/2014 JENN CARBAJAL Ot 719.46 JOINT PAIN-L/LEG 05/13/2014 JENN CARBAJAL Ot 844.9 SPRAIN OF KNEE LEG NOS 05/13/2014 JENN CARBAJAL Ot E000.8 OTHER EXTERNAL CAUSE STATUS 05/13/2014 JENN CARBAJAL Ot E849.6 ACCIDENT IN PUBLIC BLDG 05/13/2014 JENN CARBAJAL Ot E928.9 ACCIDENT NOS 06/12/2014 ELENI VILLEDA DO Ot 715.36 06/12/2014 ELENI VILLEDA DO Ot 717.3 06/12/2014 RONAL DO, ELENI Gonzalez Ot 719.06 06/12/2014 RONAL DO, ELENI Gonzalez Ot 726.65 07/07/2014 RONAL DO, ELENI Gonzalez Ot 715.36 07/07/2014 RONAL DO, ELENI Gonzalez Ot 717.3 07/07/2014 RONAL DO, ELENI Gonzalez Ot 719.06 07/07/2014 RONAL DO, ELENI Gonzalez Ot 726.65 07/07/2014 RONAL DO, ELENI Gonzalez Ot 715.36 07/07/2014 RONAL DO, ELENI Gonzalez Ot 717.3 07/07/2014 RONAL DO, ELENI Gonzalez Ot 719.06 07/07/2014 RONAL DO, ELENI Gonzalez Ot 726.65 07/18/2014 Ot 250.00 CASTRO B NAIDA WO COMPL, TYPE II OR UNSPEC TY 07/18/2014 Ot 272.4 HYPE RLIPIDEMIA NEC/NOS 07/18/2014 Ot 401.9 HYPE RTENSION NOS 07/18/2014 Ot 414.01 COR ONARY ATHEROSCLEROSIS OF [place] CORON 07/18/2014 Ot 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 11 REFLUX ESOPHAGITIS 12/14/2014 TRELL STARKEY MD Ot 789. 06 ABDOMINAL PAIN, EPIGASTRIC 12/23/2014 GELLENDER LLUVIA RIVERA Ot 250.00 12/23/2014 GELLENDER LLUVIA RIVERA Ot 250.60 DIAB W NEURO MANIFEST, TYPE II OR UNSPEC 12/23/2014 LLUVIA ROUSE DO Ot 272.0 PURE HYPERCHOLESTEROLEM 12/23/2014 LLUVIA ROUSE DO Ot 338.29 OTHER CHRONIC PAIN 12/23/2014 LLUVIA ROUSE DO Ot 403.90 HYPTNSV CHR KID DIS, UNSPEC, W CHR KD ST 12/23/2014 LLUVIA ROUSE DO Ot 412 OLD MYOCARDIAL INFARCT 12/23/2014 LLUVIA ROUSE DO Ot 414.01 CORONARY ATHEROSCLEROSIS OF [place] CORON 12/23/2014 GELLENDER DO, LLUVIA Bernal Ot 427.31 ATRIAL FIBRILLATION 12/23/2014 GELLENDER DO, LLUVIA Bernal Ot 447.9 ARTERIAL DISEASE NOS 12/23/2014 GELLENDER DO, LLUVIA Bernal Ot 477.9 ALLERGIC RHINITIS NOS 12/23/2014 GELLENDER DO, LLUVIA Bernal Ot 530.81 ESOPHAGEAL REFLUX 12/23/2014 GELLENDER DO, LLUVIA Bernal Ot 536.1 AC DILATION OF STOMACH 12/23/2014 GELLENDER DO, LLUVIA Bernal Ot 536.3 GASTROPARESIS 12/23/2014 GELLENDER DO, LLUVIA Bernal Ot 553.3 DIAPHRAGMATIC HERNIA 12/23/2014 GELLENDER DO, LLUVIA Bernal Ot 560.9 12/23/2014 GELLENDER DO, LLUVIA Bernal Ot 584.9 ACUTE RENAL FAILURE, UNSPECIFIED 12/23/2014 GELLENDER DO, LLUVIA Bernal Ot 585.9 CHRONIC KIDNEY DISEASE, UNSPECIFIED 12/23/2014 GELLENDER DO, LLUVIA Bernal Ot 602.9 PROSTATIC DISORDER NOS 12/23/2014 GELLENDER DOLLUVIA Ot 716.90 ARTHROPATHY NOS-UNSPEC 12/23/2014 GELLENDER DOLLUVIA Ot 724.5 BACKACHE NOS 12/23/2014 GELLENDER DOLLUVIA Ot 786.59 CHEST PAIN NEC 12/23/2014 [facility] Ot V12.54 PERSONAL HX OF TIA, CEREBRAL INFARCTION 12/23/2014 [facility] V45.81 AORTOCORONARY BYPASS 12/23/2014 [facility] Ot V45.82 PERCUTANEOUS TRANSLUM CORON ANGIOPLASTY 01/08/2015 LEONARDO SALGADO APRN Ot 922 .1 CONTUSION OF CHEST WALL 01/08/2015 LEONARDO SALGADO APRN Ot 959.11 OTH INJURY OF CHEST WALL 01/08/2015 LEONARDO SALGADO APRN Ot E000.8 OTHER EXTERNAL CAUSE STATUS 01/08/2015 LEONARDO SALGADO APRN Ot E029.9 OTHER ACTIVITY 01/08/2015 LEONARDO SALGADO APRN Ot E849.0 ACCIDENT IN HOME 01/08/2015 LEONARDO SALGADO APRN Ot E888.1 FALL STRIKING OBJECT NEC 01/12/2015 JENNIE DOUGHERTY, CHARO Fletcher Ot 401.9 HYPERTENSION NOS 01/21/2015 RONAL DO, ELENI Gonzalez Ot 715.36 01/21/2015 RONAL DO, ELENI Gonzalez Ot 717.3 01/27/2015 RONAL DO, ELENI Gonzalez Ot 715.36 01/27/2015 RONAL DO, ELENI Gonzalez Ot 717.3 03/12/2015 RONAL DO, ELENI Gonzalez Ot 715.36 03/12/2015 RONAL DO, ELENI Gonzalez Ot 717.3 04/02/2015 JENN CARBAJAL Ot E11.9 TYPE 2 DIABETES MELLITUS WITHOUT COMPLIC 04/02/2015 JENN CARBAJAL Ot K29.00 ACUTE GASTRITIS WITHOUT BLEEDING 04/02/2015 JENN CARBAJAL Ot Z79.4 SKILLED NURSING (CURRENT) USE OF INSULIN 04/02/2015 JENN CARBAJAL Ot 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 06/30/2015 CHARO SCHNEIDER MD Ot F17.210 NICOTINE DEPENDENCE, CIGARETTES, UNCOMPL 06/30/2015 CHARO SCHNEIDER MD Ot M79.1 MYALGIA 06/30/2015 CHARO SCHNEIDER MD Ot Z95.1 PRESENCE OF AORTOCORONARY BYPASS GRAFT 07/15/2015 BISI GARCIA MD Ot E78. 2 07/15/2015 BISI GARCIA MD Ot I10 07/15/2015 BISI GARCIA MD Ot I25. 10 07/15/2015 BISI GARCIA MD Ot I65. 23 07/19/2015 BISI GARCIA MD Ot E78. 2 07/19/2015 BISI GACRIA MD Ot I10 07/19/2015 BISI GARCIA MD Ot I25. 10 07/19/2015 BISI GARCIA MD Ot I65. 23 07/30/2015 Ot 562.10 07/30/2015 Ot 571.8 07/30/2015 Ot 789.00 07/30/2015 Ot 272.4 07/30/2015 Ot 401.9 07/30/2015 Ot 414.00 07/30/2015 Ot 272.4 07/30/2015 Ot V72.84 07/30/2015 Ot 397.0 07/30/2015 Ot 401.9 07/30/2015 Ot 414.00 07/30/2015 Ot 424.0 07/30/2015 Ot 429.3 07/30/2015 Ot 401.9 07/30/2015 Ot 414.00 07/30/2015 RONAL DO, ELENI F Ot 726.2 07/30/2015 RONAL DO, ELENI F Ot 727.61 07/30/2015 ORNAL DO, ELENI F Ot V72.84 07/30/2015 RONAL DO, ELENI F Ot V74.8 07/30/2015 CESIA DOUGHERTY, ELIANAAARAMAKRISHNA Ot V72.84 07/30/2015 RONAL DO, ELENI F Ot 726.33 07/30/2015 RONAL DO, ELENI F Ot V72.63 07/30/2015 RONAL DO, ELENI F Ot V72.84 07/30/2015 RONAL DO, ELENI F Ot V74.8 07/30/2015 JOSE DOUGHERTY, BISI Colon Ot 401. 9 07/30/2015 JOSE DOUGHERTY, BISI Colon Ot 414. 00 07/30/2015 JOSE DOUGHERTY, BISI Colon Ot 429. 3 07/30/2015 JOSE DOUGHERTY, BISI Colon Ot V12. 59 07/30/2015 NIESHA DOUGHERTY, LEN Sanchez Ot V72.84 07/30/2015 GELLENDER DO, LLUVIA A Ot 272.4 07/30/2015 GELLENDER DO, LLUVIA A Ot 789.00 07/30/2015 RONAL DO, ELENI F Ot 715.36 07/30/2015 RONAL DO, ELENI F Ot 717.3 07/30/2015 RONAL DO, ELENI F Ot 719.06 07/30/2015 RONAL DO, ELENI F Ot 726.65 07/30/2015 RONAL DO, ELENI F Ot 715.36 07/30/2015 RONAL DO, ELENI F Ot 717.3 07/30/2015 JOSE DOUGHERTY, BISI Colon Ot E78. 2 07/30/2015 JOSE DOUGHERTY, BISI Colon Ot I10 07/30/2015 JOSE DOUGHERTY, BISI Colon Ot I25. 10 07/30/2015 BISI GARCIA MD Ot I65. 23 07/30/2015 JENNIE DOUGHERTY, CHARO Fletcher Ot E11.9 TYPE 2 DIABETES MELLITUS WITHOUT COMPLIC 07/30/2015 JENNIE DOUGHERTY, CHARO Fletcher Ot R14.0 ABDOMINAL DISTENSION (GASEOUS) 08/14/2015 Ot G89.29 OTH ER CHRONIC PAIN 08/14/2015 Ot M48.16 ANK YLOSING 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], LUM 08/14/2015 Ot M54.16 RAD ICULOPATHY, LUMBAR REGION 08/14/2015 Ot Z87.891 PE RSONAL HISTORY OF NICOTINE DEPENDENCE 09/02/2015 CHARO SCHNEIDER MD Ot R10.13 EPIGASTRIC PAIN 09/02/2015 CHARO SCHNEIDER MD Ot R14.0 ABDOMINAL DISTENSION (GASEOUS) 09/02/2015 CHARO SCHNEIDER MD, Ot Z79.82 SKILLED NURSING (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 09/02/2015 CHARO SCHNEIDER MD, Ot Z79.899 OTHER SKILLED NURSING (CURRENT) DRUG THERAPY 09/02/2015 CHARO SCHNEIDER MD, Ot Z87.891 PERSONAL HISTORY OF NICOTINE DEPENDENCE 09/04/2015 CHARO SCHNEIDER MD, Ot R10.13 EPIGASTRIC PAIN 09/04/2015 CHARO SCHNEIDER MD Ot R14.0 ABDOMINAL DISTENSION (GASEOUS) 09/04/2015 CHARO SCHNEIDER MD Ot 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 09/04/2015 CHARO SCHNEIDER MD, Ot Z79.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 09/04/2015 CHARO SCHNEIDER MD, Ot Z87.891 PERSONAL HISTORY OF NICOTINE DEPENDENCE 09/08/2015 LEN SCHERER MD Ot K29.70 GASTRITIS, UNSPECIFIED, WITHOUT BLEEDING 09/08/2015 LEN SCHERER MD Ot K29.80 DUODENITIS WITHOUT BLEEDING 09/09/2015 LEN SCHERER MD Ot K29.70 GASTRITIS, UNSPECIFIED, WITHOUT BLEEDING 09/09/2015 LEN SCHERER MD Ot K29.80 DUODENITIS WITHOUT BLEEDING 09/14/2015 Ot 562.10 DIV ERTICULOSIS COLON (W/O MENT OF HEMORR 09/14/2015 Ot 571.8 REPAIR CAMERAMAN RONEL LIVER DIS NEC 09/14/2015 Ot 789.00 ABD OMINAL PAIN, UNSPECIFIED SITE 09/14/2015 Ot 272.4 HYPE RLIPIDEMIA NEC/NOS 09/14/2015 Ot 401.9 HYPE RTENSION NOS 09/14/2015 Ot 414.00 COR ON ATHEROSCLER NOS TYPE VESSEL, NATIV 09/14/2015 Ot 272.4 HYPE RLIPIDEMIA NEC/NOS 09/14/2015 Ot V72.84 EXA M PRE- OPERATIVE NOS 09/14/2015 Ot 397.0 TRIC USPID VALVE DISEASE 09/14/2015 Ot 401.9 HYPE RTENSION NOS 09/14/2015 Ot 414.00 COR ON ATHEROSCLER NOS TYPE VESSEL, NATIV 09/14/2015 Ot 424.0 MITR AL VALVE DISORDER 09/14/2015 Ot 429.3 CARD IOMEGALY 09/14/2015 Ot 401.9 HYPE RTENSION NOS 09/14/2015 Ot 414.00 COR ON ATHEROSCLER NOS TYPE VESSEL, NATIV 09/14/2015 ELENI VILLEDA DO Ot 726.2 SHOULDER REGION DIS NEC 09/14/2015 ELENI VILLEDA DO Ot 727.61 ROTATOR CUFF RUPTURE 09/14/2015 ELENI VILLEDA DO Ot V72.84 EXAM PRE-OPERATIVE NOS 09/14/2015 ELENI VILLEDA DO Ot V74.8 SCREEN-BACTERIAL DIS NEC 09/14/2015 CESIA DOUGHERTY, SARAH Ot V72.84 EXAM PRE-OPERATIVE NOS 09/14/2015 RONAL RIVERA ELENI Carlos Ot 726.33 OLECRANON BURSITIS 09/14/2015 ELENI VILLEDA DO Ot V72.63 PRE-PROCEDURAL LABORATORY EXAMINATION 09/14/2015 ELENI VILLEDA DO Ot V72.84 EXAM PRE-OPERATIVE NOS 09/14/2015 ELENI VILLEDA DO Ot V74.8 SCREEN-BACTERIAL DIS NEC 09/14/2015 JOSE DOUGHERTY, BISI Colon Ot 401. 9 HYPERTENSION NOS 09/14/2015 JOSE DOUGHERTY, BISI Colon Ot 414. 00 CORON ATHEROSCLER NOS TYPE VESSEL, NATIV 09/14/2015 BISI GARCIA MD Ot 429. 3 CARDIOMEGALY 09/14/2015 BISI GARCIA MD Ot V12. 59 HX-CIRCULATORY SYST DIS,NEC 09/14/2015 NIESHA DOUGHERTY, LEN Sanchez Ot V72.84 EXAM PRE-OPERATIVE NOS 09/14/2015 LLUVIA ROUSE DO Ot 272.4 HYPERLIPIDEMIA NEC/NOS 09/14/2015 LLUVIA ROUSE DO Ot 789.00 ABDOMINAL PAIN, UNSPECIFIED SITE 09/14/2015 ELENI VILLEDA DO Ot 715.36 LOC OSTEOARTH NOS-L/LEG 09/14/2015 RONAL DO ELENI Gonzalez Ot 717.3 DERANG MED MENISCUS NEC 09/14/2015 RONAL DO ELENI Gonzalez Ot 719.06 JOINT EFFUSION-L/LEG 09/14/2015 RONAL DO ELENI Gonzalez Ot 726.65 PREPATELLAR BURSITIS 09/14/2015 RONAL DO ELENI Gonzalez Ot 715.36 LOC OSTEOARTH NOS-L/LEG 09/14/2015 RONAL DO ELENI Gonzalez Ot 717.3 DERANG MED MENISCUS NEC 09/14/2015 JOSE DOUGHERTY, BISI Colon Ot E78. 2 MIXED HYPERLIPIDEMIA 09/14/2015 BISI GARCIA MD Ot I10 ESSENTIAL (PRIMARY) HYPERTENSION 09/14/2015 BISI GARCIA MD Ot I25. 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 09/14/2015 NIESHA DOUGHERTY, LEN Sanchez Ot R13.10 DYSPHAGIA, UNSPECIFIED 09/14/2015 NIESHA DOUGHERTY, LEN Sanchez Ot Z01.818 ENCOUNTER FOR OTHER PREPROCEDURAL EXAMIN 09/15/2015 NIESHA DOUGHERTY, LEN Sanchez Ot K29.80 DUODENITIS WITHOUT BLEEDING 09/15/2015 NIESHA DOUGHERTY, LEN Sanchez Ot K29.80 DUODENITIS WITHOUT BLEEDING 09/16/2015 NIESHA DOUGHERTY, LEN Sanchez Ot K29.70 GASTRITIS, UNSPECIFIED, WITHOUT BLEEDING 09/16/2015 NIESHA DOUGHERTY, LEN Sanchez Ot K29.80 DUODENITIS WITHOUT BLEEDING 09/24/2015 CHARO SCHNEIDER MD Ot I48.92 UNSPECIFIED ATRIAL FLUTTER 09/24/2015 CHARO SCHNEIDER MD Ot R00.0 TACHYCARDIA, UNSPECIFIED 09/24/2015 CHARO SCHNEIDER MD Ot R42 DIZZINESS AND GIDDINESS 09/24/2015 CHARO SCHNEIDER MD Ot Z79.82 SKILLED NURSING (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 09/27/2015 CHARO SCHNEIDER MD Ot I48.92 UNSPECIFIED ATRIAL FLUTTER 09/27/2015 CHARO SCHNEIDER MD Ot R00.0 TACHYCARDIA, UNSPECIFIED 09/27/2015 CHARO SCHNEIDER MD, Ot R42 DIZZINESS AND GIDDINESS 09/27/2015 CHARO SCHNEIDER MD, Ot Z79.82 SKILLED NURSING (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 10/05/2015 NIESHA DOUGHERTY, LEN Sanchez Ot K29.80 DUODENITIS WITHOUT BLEEDING 10/12/2015 NIESHA DOUGHERTY, LEN Sanchez Ot K29.80 DUODENITIS WITHOUT BLEEDING 10/23/2015 CHARO SCHNEIDER MD Ot I48.92 UNSPECIFIED ATRIAL FLUTTER 10/23/2015 CHARO SCHNEIDER MD Ot R00.0 TACHYCARDIA, UNSPECIFIED 10/23/2015 CHARO SCHNEIDER MD, Ot R42 DIZZINESS AND GIDDINESS 10/23/2015 CHARO SCHNEIDER MD, Ot 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 11/08/2015 JUSTINE TABARES DO, Ot E11.65 TYPE 2 DIABETES MELLITUS WITH HYPERGLYCE 11/08/2015 JUSTINE TABARES DO Ot I1 0 ESSENTIAL (PRIMARY) HYPERTENSION 11/08/2015 JUSTINE TABARES DO Ot Z79.4 SKILLED NURSING (CURRENT) USE OF INSULIN 11/08/2015 JUSTINE TABARES DO, Ot Z79.82 SKILLED NURSING (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 11/08/2015 JUSTINE TABARES DO, Ot Z79.899 OTHER SKILLED NURSING (CURRENT) DRUG THERAPY 11/09/2015 JUSTINE TABARES DO, Ot E11.65 TYPE 2 DIABETES MELLITUS WITH HYPERGLYCE 11/09/2015 JUSTINE TABARES DO, Ot I1 0 ESSENTIAL (PRIMARY) HYPERTENSION 11/09/2015 JUSTINE TABARES DO, Ot Z79.4 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) USE OF INSULIN 11/09/2015 JUSTINE TABARES DO, Ot 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 11/09/2015 JUSTINE TABARES DO, Ot 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.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 11/12/2015 Ot 530.81 ESO PHAGEAL REFLUX 11/12/2015 Ot 789.06 ABD OMINAL PAIN, EPIGASTRIC 11/30/2015 LLUVIA ROUSE DO Ot M54.5 LOW BACK PAIN 12/02/2015 GELLENDER DOLLUVIA Ot M54.5 LOW BACK PAIN 12/24/2015 GELLENDER LLUVIA RIVERA Ot M54.5 LOW BACK PAIN 01/21/2016 LLUVIA ROUSE DO Ot M54.5 LOW BACK PAIN 03/01/2016 Ot 272.4 HYPE RLIPIDEMIA NEC/NOS 03/01/2016 Ot 401.9 HYPE RTENSION NOS 03/01/2016 Ot 414.00 COR ON ATHEROSCLER NOS TYPE VESSEL, NATIV 03/01/2016 Ot 272.4 HYPE RLIPIDEMIA NEC/NOS 03/01/2016 Ot V72.84 EXA M PRE- OPERATIVE NOS 03/01/2016 Ot 397.0 TRIC USPID VALVE DISEASE 03/01/2016 Ot 401.9 HYPE RTENSION NOS 03/01/2016 Ot 414.00 COR ON ATHEROSCLER NOS TYPE VESSEL, NATIV 03/01/2016 Ot 424.0 MITR AL VALVE DISORDER 03/01/2016 Ot 429.3 CARD IOMEGALY 03/01/2016 Ot 401.9 HYPE RTENSION NOS 03/01/2016 Ot 414.00 COR ON ATHEROSCLER NOS TYPE VESSEL, NATIV 03/01/2016 ELENI [...] DO Ot V72.63 PRE-PROCEDURAL LABORATORY EXAMINATION 03/01/2016 ELENI VILLEDA DO Ot V72.84 EXAM PRE-OPERATIVE NOS 03/01/2016 ELENI VILLEDA DO Ot V74.8 SCREEN-BACTERIAL DIS NEC 03/01/2016 JOSE DOUGHERTY, BISI Colon Ot 401. 9 HYPERTENSION NOS 03/01/2016 JOSE DOUGHERTY, BISI Colon Ot 414. 00 CORON ATHEROSCLER NOS TYPE VESSEL, NATIV 03/01/2016 BISI GARCIA MD Ot 429. 3 CARDIOMEGALY 03/01/2016 BISI GARCIA MD Ot V12. 59 HX-CIRCULATORY SYST DIS,NEC 03/01/2016 NIESHA DOUGHERTY, LEN Sanchez Ot V72.84 EXAM PRE-OPERATIVE NOS 03/01/2016 PADMA RIVERA LLUVIA Bernal Ot 272.4 HYPERLIPIDEMIA NEC/NOS 03/01/2016 LLUVIA ROUSE DO Ot 789.00 ABDOMINAL PAIN, UNSPECIFIED SITE 03/01/2016 RONAL RIVERA ELENI Gonzalez Ot 715.36 LOC OSTEOARTH NOS-L/LEG 03/01/2016 RONAL , ELENI Gonzalez Ot 717.3 DERANG MED MENISCUS NEC 03/01/2016 RONAL , ELENI Gonzalez Ot 719.06 JOINT EFFUSION-L/LEG 03/01/2016 RONAL DO, ELENI F Ot 726.65 PREPATELLAR BURSITIS 03/01/2016 RONAL DO, ELENI Carlos Ot 715.36 LOC OSTEOARTH NOS-L/LEG 03/01/2016 RONAL , ELENI Carlos Ot 717.3 DERANG MED MENISCUS NEC 03/01/2016 BISI GARCIA MD Ot E78. 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 23 OCCLUSION AND STENOSIS OF BILATERAL [place] 03/01/2016 NIESHA DOUGHERTY, LEN Sanchez Ot R13.10 DYSPHAGIA, UNSPECIFIED 03/01/2016 NIESHA DOUGHERTY, LEN Sanchez Ot Z01.818 ENCOUNTER FOR OTHER PREPROCEDURAL EXAMIN 03/01/2016 NIESHA DOUGHERTY, LEN Sanchez Ot K29.80 DUODENITIS WITHOUT BLEEDING 03/01/2016 HERONJULIO DO LLUVIA Gabe Ot M54.5 LOW BACK PAIN 03/02/2016 BISI GARCIA MD Ot E11. 9 TYPE 2 DIABETES MELLITUS WITHOUT COMPLIC 03/02/2016 BISI GARCIA MD Ot E78. 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 92 CHRONIC TOTAL OCCLUSION OF ARTERY OF THE 03/02/2016 JOSE DOUGHERTY, BISI Colon Ot T82.857D STENOSIS OF OTHER CARDIAC PROSTH DEV/GRF 03/04/2016 RODOLFO CUELLO MD Ot E11.9 TYPE 2 DIABETES MELLITUS WITHOUT COMPLIC 03/04/2016 RODOLFO CUELLO MD Ot I10 ESSENTIAL (PRIMARY) HYPERTENSION 03/04/2016 RODOLFO CUELLO MD Ot R10.13 EPIGASTRIC PAIN 03/04/2016 RODOLFO CUELLO MD Ot Z79.4 SKILLED NURSING (CURRENT) USE OF INSULIN 03/04/2016 RODOLFO CUELLO MD Ot Z79.84 SKILLED NURSING (CURRENT) USE OF ORAL HYPOGLYC 03/04/2016 RODOLFO CUELLO MD Ot Z79.899 OTHER SKILLED NURSING (CURRENT) DRUG THERAPY 03/04/2016 RODOLFO CUELLO MD Ot Z95.1 PRESENCE OF AORTOCORONARY BYPASS GRAFT 03/04/2016 RODOLFO CUELLO MD Ot 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 IMPLANT 03/06/2016 RODOLFO CUELLO MD Ot E11.9 TYPE 2 DIABETES MELLITUS WITHOUT COMPLIC 03/06/2016 RODOLFO CUELLO MD Ot I10 ESSENTIAL (PRIMARY) HYPERTENSION 03/06/2016 RODOLFO CUELLO MD Ot R10.13 EPIGASTRIC PAIN 03/06/2016 RODOLFO CUELLO MD Ot Z79.4 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) USE OF INSULIN 03/06/2016 RODOLFO CUELLO MD Ot Z79.84 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) USE OF ORAL HYPOGLYC 03/06/2016 RODOLFO CUELLO MD T Ot Z79.899 OTHER SKILLED NURSING (CURRENT) DRUG THERAPY 03/06/2016 RODOLFO CUELLO MD Ot Z95.1 PRESENCE OF AORTOCORONARY BYPASS GRAFT 03/06/2016 RODOLFO CUELLO MD Ot 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 IMPLANT 03/07/2016 RODOLFO CUELLO MD Ot E11.9 TYPE 2 DIABETES MELLITUS WITHOUT COMPLIC 03/07/2016 RODOLFO CUELLO MD Ot I10 ESSENTIAL (PRIMARY) HYPERTENSION 03/07/2016 RODOLFO CUELLO MD Ot R10.13 EPIGASTRIC PAIN 03/07/2016 RODOLFO CUELLO MD Ot Z79.4 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) USE OF INSULIN 03/07/2016 RODOLFO CUELLO MD Ot Z79.84 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) USE OF ORAL HYPOGLYC 03/07/2016 RODOLFO CUELLO MD Ot Z79.899 OTHER SKILLED NURSING (CURRENT) DRUG THERAPY 03/07/2016 RODOLFO CUELLO MD Ot Z95.1 PRESENCE OF AORTOCORONARY BYPASS GRAFT 03/07/2016 RODOLFO UCELLO MD Ot 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 IMPLANT 03/07/2016 LLUVIA ROUSE DO Ot R14.0 ABDOMINAL DISTENSION (GASEOUS) 03/09/2016 CHARO SCHNEIDER MD, Ot E11.9 TYPE 2 DIABETES MELLITUS WITHOUT COMPLIC 03/09/2016 CHARO SCHNEIDER MD Ot I10 ESSENTIAL (PRIMARY) HYPERTENSION 03/09/2016 CHARO SCHNEIDER MD Ot J44.9 CHRONIC OBSTRUCTIVE PULMONARY DISEASE, U 03/09/2016 CHARO SCHNEIDER MD Ot R06.00 DYSPNEA, UNSPECIFIED 03/09/2016 CHARO SCHNEIDER MD Ot R06.02 SHORTNESS OF BREATH 03/09/2016 CHARO SCHNEIDER MD Ot Z79.4 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) USE OF INSULIN 03/09/2016 CHARO SCHNEIDER MD Ot Z79.84 SKILLED NURSING (CURRENT) USE OF ORAL HYPOGLYC 03/09/2016 CHARO SCHNEIDER MD Ot Z79.899 OTHER SKILLED NURSING (CURRENT) DRUG THERAPY 03/09/2016 CHARO SCHNEIDER MD Ot Z95.1 PRESENCE OF AORTOCORONARY BYPASS GRAFT 03/09/2016 CHARO SCHNEIDER MD Ot 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 IMPLANT 03/10/2016 CHARO SCHNEIDER MD Ot E11.9 TYPE 2 DIABETES MELLITUS WITHOUT COMPLIC 03/10/2016 JENNIE MD, CHARO D Ot I10 ESSENTIAL (PRIMARY) HYPERTENSION 03/10/2016 CHARO SCHNEIDER MD Ot J44.9 CHRONIC OBSTRUCTIVE PULMONARY DISEASE, U 03/10/2016 CHARO SCHNEIDER MD Ot R06.00 DYSPNEA, UNSPECIFIED 03/10/2016 CHARO SCHNEIDER MD Ot R06.02 SHORTNESS OF BREATH 03/10/2016 CHARO SCHNEIDER MD Ot Z79.4 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) USE OF INSULIN 03/10/2016 CHARO SCHNEIDER MD Ot Z79.84 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) USE OF ORAL HYPOGLYC 03/10/2016 CHARO SCHNEIDER MD Ot Z79.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 03/10/2016 CHARO SCHNEIDER MD [...] Ot R06.02 SHORTNESS OF BREATH 03/11/2016 CHARO SCHNEIDER MD Ot Z79.4 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) USE OF INSULIN 03/11/2016 CHARO SCHNEIDER MD Ot Z79.84 SKILLED NURSING (CURRENT) USE OF ORAL HYPOGLYC 03/11/2016 CHARO SCHNEIDER MD Ot Z79.899 OTHER SKILLED NURSING (CURRENT) DRUG THERAPY 03/11/2016 CHARO SCHNEIDER MD Ot Z95.1 PRESENCE OF AORTOCORONARY BYPASS GRAFT 03/11/2016 CHARO SCHNEIDER MD Ot 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 IMPLANT 03/14/2016 CHARO SCHNEIDER MD Ot E11.9 TYPE 2 DIABETES MELLITUS WITHOUT COMPLIC 03/14/2016 CHARO SCHNEIDER MD Ot I10 ESSENTIAL (PRIMARY) HYPERTENSION 03/14/2016 CHARO SCHNEIDER MD, Ot J44.9 CHRONIC OBSTRUCTIVE PULMONARY DISEASE, U 03/14/2016 CHARO SCHNEIDER MD Ot R06.00 DYSPNEA, UNSPECIFIED 03/14/2016 CHARO SCHNEIDER MD Ot R06.02 SHORTNESS OF BREATH 03/14/2016 CHARO SCHNEIDER MD Ot Z79.4 SKILLED NURSING (CURRENT) USE OF INSULIN 03/14/2016 CHARO SCHNEIDER MD Ot Z79.84 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) USE OF ORAL HYPOGLYC 03/14/2016 CHARO SCHNEIDER MD, Ot Z79.899 OTHER SKILLED NURSING (CURRENT) DRUG THERAPY 03/14/2016 CHARO SCHNEIDER MD, Ot Z95.1 PRESENCE OF [...] DO Ot I25.10 ATHSCL HEART DISEASE OF [place] CORONARY 03/22/2016 LLUVIA ROUSE DO Ot I25.2 OLD MYOCARDIAL INFARCTION 03/22/2016 LLUVIA ROUSE DO Ot I48.0 PAROXYSMAL ATRIAL FIBRILLATION 03/22/2016 LLUVIA ROUSE DO, Ot J44.9 CHRONIC OBSTRUCTIVE PULMONARY DISEASE, U 03/22/2016 LLUVIA ROUSE DO Ot K21.9 GASTRO-ESOPHAGEAL REFLUX DISEASE WITHOUT 03/22/2016 LLUVIA ROUSE DO Ot M48.10 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], SIT 03/22/2016 LLUVIA ROUSE DO Ot R07.9 CHEST PAIN, UNSPECIFIED 03/22/2016 LLUVIA ROUSE DO Ot Z79.02 SKILLED NURSING (CURRENT) USE OF ANTITHROMBOTI 03/22/2016 LLUVIA ROUSE DO A Ot Z79.4 SKILLED NURSING (CURRENT) USE OF INSULIN 03/22/2016 LLUVIA ROUSE DO Ot Z86.73 PRSNL HX OF TIA (TIA), AND CEREB INFRC W 03/22/2016 PADMA RIVERALLUVIA Ot Z87.891 PERSONAL HISTORY OF NICOTINE DEPENDENCE 03/22/2016 PADMA RIVERALLUVIA Ot Z95.1 PRESENCE OF AORTOCORONARY BYPASS GRAFT 03/22/2016 PADMA RIVERALLUVIA Ot 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 IMPLANT 03/22/2016 BISI GARCIA MD Ot E11. 9 TYPE 2 DIABETES MELLITUS WITHOUT COMPLIC 03/22/2016 BISI GARCIA MD Ot E78. 5 HYPERLIPIDEMIA, UNSPECIFIED 03/22/2016 BISI GARCIA MD Ot I10 ESSENTIAL (PRIMARY) HYPERTENSION 03/22/2016 BISI GARCIA MD Ot I25. 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 9 TYPE 2 DIABETES MELLITUS WITHOUT COMPLIC 03/22/2016 BISI GARCIA MD Ot E78. 5 HYPERLIPIDEMIA, UNSPECIFIED 03/22/2016 BISI GARCIA MD Ot I10 ESSENTIAL (PRIMARY) HYPERTENSION 03/22/2016 BISI GARCIA MD Ot I25. 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 1 SUPRAVENTRICULAR TACHYCARDIA 03/22/2016 BISI GARCIA MD Ot I70.211 ATHSCL [place] ARTERIES OF EXTRM W INTRMT 03/22/2016 BISI GARCIA MD Ot I70. 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 STENOSIS OF OTHER CARDIAC PROSTH DEV/GRF 03/28/2016 HERONJULIO LLUVIA RIVERA Ot R14.0 ABDOMINAL DISTENSION (GASEOUS) 03/30/2016 PADMA LLUVIA RIVERA Ot R14.0 ABDOMINAL DISTENSION (GASEOUS) 05/31/2016 LLUVIA ROUSE DO Ot E11.43 TYPE 2 DIABETES W DIABETIC AUTONOMIC (PO 05/31/2016 LLUVIA ROUSE DO Ot E13.10 OTH DIABETES MELLITUS WITH KETOACIDOSIS 05/31/2016 LLUVIA ROUSE DO Ot E86.0 DEHYDRATION 05/31/2016 LLUVIA ROUSE DO Ot G47.30 SLEEP APNEA, UNSPECIFIED 05/31/2016 LLUVIA ROUSE DO Ot I12.9 HYPERTENSIVE CHRONIC KIDNEY DISEASE W ST 05/31/2016 LLUVIA ROUSE DO Ot I25.10 ATHSCL HEART DISEASE OF [place] CORONARY 05/31/2016 LLUVIA ROUSE DO Ot I25.2 OLD MYOCARDIAL INFARCTION 05/31/2016 LLUVIA ROUSE DO Ot I48.91 UNSPECIFIED ATRIAL FIBRILLATION 05/31/2016 LLUVIA ROUSE DO Ot I70.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 05/31/2016 LLUVIA ROUSE DO Ot J44.9 CHRONIC OBSTRUCTIVE PULMONARY DISEASE, U 05/31/2016 LLUVIA ROUSE DO Ot K21.9 GASTRO-ESOPHAGEAL REFLUX DISEASE WITHOUT 05/31/2016 LLUVIA ROUSE DO Ot K52.9 NONINFECTIVE GASTROENTERITIS AND COLITIS 05/31/2016 LLUVIA ROUSE DO Ot N17.9 ACUTE KIDNEY FAILURE, UNSPECIFIED 05/31/2016 LLUVIA ROUSE DO Ot N18.9 CHRONIC KIDNEY DISEASE, UNSPECIFIED 05/31/2016 LLUVIA ROUSE DO Ot R07.9 CHEST PAIN, UNSPECIFIED 05/31/2016 LLUVIA ROUSE DO Ot R19.7 DIARRHEA, UNSPECIFIED 05/31/2016 LLUVIA ROUSE DO Ot Z79.4 SKILLED NURSING (CURRENT) USE OF INSULIN 05/31/2016 LLUVIA ROUSE DO Ot Z87.891 PERSONAL HISTORY OF NICOTINE DEPENDENCE 05/31/2016 PADMA RIVERALLUVIA Ot Z95.1 PRESENCE OF AORTOCORONARY BYPASS GRAFT 05/31/2016 LLUVIA ROUSE DO Ot 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 IMPLANT 05/31/2016 MICHAELFRANKYLN LLUVIA RIVERA Ot 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 05/31/2016 PADMA LLUVIA RIVERA Ot E11.43 TYPE 2 DIABETES W DIABETIC AUTONOMIC (PO 05/31/2016 PADMA RIVERALLUVIA Ot E13.10 OTH DIABETES MELLITUS WITH KETOACIDOSIS 05/31/2016 PADMA LLUVIA RIVERA Ot E86.0 DEHYDRATION 05/31/2016 PADMA RIVERALLUVIA Ot G47.30 SLEEP APNEA, UNSPECIFIED 05/31/2016 LLUVIA ROUSE DO Ot I12.9 HYPERTENSIVE CHRONIC KIDNEY DISEASE W ST 05/31/2016 MICHAELFRANKLYN LLUVIA RIVERA Ot I25.10 ATHSCL HEART DISEASE OF [place] CORONARY 05/31/2016 HERONJULIO LLUVIA RIVERA Ot I25.2 OLD MYOCARDIAL INFARCTION 05/31/2016 LLUVIA ROUSE DO Ot I48.91 UNSPECIFIED ATRIAL FIBRILLATION 05/31/2016 PADMA LLUVIA RIVERA Ot I70.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 05/31/2016 MICHAELFRANKLYN LLUVIA RIVERA Ot J44.9 CHRONIC OBSTRUCTIVE PULMONARY DISEASE, U 05/31/2016 PADMA LLUVIA RIVERA Ot K21.9 GASTRO-ESOPHAGEAL REFLUX DISEASE WITHOUT 05/31/2016 PADMA RIVERALLUVIA Ot K52.9 NONINFECTIVE GASTROENTERITIS AND COLITIS 05/31/2016 PADMA LLUVIA RIVERA Ot N17.9 ACUTE KIDNEY FAILURE, UNSPECIFIED 05/31/2016 PADMA LLUVIA RIVERA Ot N18.9 CHRONIC KIDNEY DISEASE, UNSPECIFIED 05/31/2016 PADMA LLUVIA RIVERA Ot R07.9 CHEST PAIN, UNSPECIFIED 05/31/2016 PADMA LLUVIA RIVERA Ot R19.7 DIARRHEA, UNSPECIFIED 05/31/2016 PADMA LLUVIA RIVERA Ot Z79.4 SKILLED NURSING (CURRENT) USE OF INSULIN 05/31/2016 MICHAELSHARRONJULIO LLUVIA RIVERA Ot Z87.891 PERSONAL HISTORY OF NICOTINE DEPENDENCE 05/31/2016 LLUVIA ROUSE DO Ot Z95.1 PRESENCE OF AORTOCORONARY BYPASS GRAFT 05/31/2016 PADMA RIVERALLUVIA Ot 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 IMPLANT 05/31/2016 PADMA LLUVIA RIVERA Ot 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 [...] RIVERALLUVIA Ot I25.10 ATHSCL HEART DISEASE OF [place] CORONARY 06/01/2016 PADMA RIVERALLUVIA Ot I25.2 OLD MYOCARDIAL INFARCTION 06/01/2016 PADMA LLUVIA RIVERA Ot I48.91 UNSPECIFIED ATRIAL FIBRILLATION 06/01/2016 PADMA RIVERALLUVIA Ot I70.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 06/01/2016 PADMA LLUVIA RIVERA Ot J44.9 CHRONIC OBSTRUCTIVE PULMONARY DISEASE, U 06/01/2016 PADMA RIVERALLUVIA Ot K21.9 GASTRO-ESOPHAGEAL REFLUX DISEASE WITHOUT 06/01/2016 PADMA RIVERALLUVIA Ot K52.9 NONINFECTIVE GASTROENTERITIS AND COLITIS 06/01/2016 PADMA RIVERALLUVIA Ot N17.9 ACUTE KIDNEY FAILURE, UNSPECIFIED 06/01/2016 PADMA RIVERALLUVIA Ot N18.9 CHRONIC KIDNEY DISEASE, UNSPECIFIED 06/01/2016 PADMA LLUVIA RIVERA Ot R07.9 CHEST PAIN, UNSPECIFIED 06/01/2016 PADMA LLUVIA RIVERA Ot Z79.4 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) USE OF INSULIN 06/01/2016 PADMA RIVERALLUVIA Ot Z87.891 PERSONAL HISTORY OF NICOTINE DEPENDENCE 06/01/2016 MICHAELFRANKLYN LLUVIA Ot Z95.1 PRESENCE OF AORTOCORONARY BYPASS GRAFT 06/01/2016 LLUVIA ROUSE DO Ot 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 IMPLANT 06/01/2016 PADMA RIVERALLUVIA Ot 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 06/05/2016 LEONARDO SALGADO APRN Ot E11 .9 TYPE 2 DIABETES MELLITUS WITHOUT COMPLIC 06/05/2016 LEONARDO SALGADO APRN Ot I10 ESSENTIAL (PRIMARY) HYPERTENSION 06/05/2016 LEONARDO SALGADO APRN Ot J44 .9 CHRONIC OBSTRUCTIVE PULMONARY DISEASE, U 06/05/2016 LEONARDO SALGADO APRN Ot K57.30 DVRTCLOS OF LG INT W/O PERFORATION OR AB 06/05/2016 LEONARDO SALGADO APRN Ot N20 .0 CALCULUS OF KIDNEY 06/05/2016 LEONARDO SALGADO APRN Ot R10.31 RIGHT LOWER QUADRANT PAIN 06/05/2016 LEONARDO SALGADO APRN Ot Z79.02 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) USE OF ANTITHROMBOTI 06/05/2016 LEONARDO SALGADO APRN Ot Z79.82 SKILLED NURSING (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 06/05/2016 LEONARDO SALGADO APRN Ot Z79.84 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) USE OF ORAL HYPOGLYC 06/05/2016 LEONARDO SALGADO APRN Ot Z79.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 06/05/2016 LEONARDO SALGADO APRN Ot 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 06/05/2016 LEONARDO SALGADO APRN Ot Z95 .5 PRESENCE OF CORONARY ANGIOPLASTY IMPLANT 06/06/2016 LEONARDO SALGADO APRN Ot E11 .9 TYPE 2 DIABETES MELLITUS WITHOUT COMPLIC 06/06/2016 LEONARDO SALGADO APRN Ot I10 ESSENTIAL (PRIMARY) HYPERTENSION 06/06/2016 LEONARDO SALGADO APRN Ot J44 .9 CHRONIC OBSTRUCTIVE PULMONARY DISEASE, U 06/06/2016 LEONARDO SALGADO APRN Ot K57.30 DVRTCLOS OF LG INT W/O PERFORATION OR AB 06/06/2016 LEONARDO SALGADO APRN Ot N20 .0 CALCULUS OF KIDNEY 06/06/2016 LEONARDO SALGADO APRN Ot R10.31 RIGHT LOWER QUADRANT PAIN 06/06/2016 LEONARDO SALGADO APRN Ot Z79.02 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) USE OF ANTITHROMBOTI 06/06/2016 LEONARDO SALGADO APRN Ot Z79.82 SKILLED NURSING (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 06/06/2016 LEONARDO SALGADO AUTOMOTIVE REFINISH TECHNICIAN Ot Z79.84 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) USE OF ORAL HYPOGLYC 06/06/2016 LEONARDO SALGADO APRN Ot Z79.899 OTHER SKILLED NURSING (CURRENT) DRUG THERAPY 06/06/2016 LEONARDO SALGADO APRN Ot 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 06/06/2016 LEONARDO SALGADO APRN Ot Z95 .5 PRESENCE OF CORONARY ANGIOPLASTY IMPLANT 06/20/2016 JENN CARBAJAL Ot E11.9 TYPE 2 DIABETES MELLITUS WITHOUT COMPLIC 06/20/2016 JNEN CARBAJAL Ot I 10 ESSENTIAL (PRIMARY) HYPERTENSION 06/20/2016 JENN CARBAJAL Ot I48.2 CHRONIC ATRIAL FIBRILLATION 06/20/2016 JENN CARBAJAL Ot S41.112A LACERATION W/O FOREIGN BODY OF LEFT UPPE 06/20/2016 JENN CARBAJAL Ot W19.XXXA UNSPECIFIED FALL, INITIAL ENCOUNTER 06/20/2016 JENN CARBAJAL Ot Y99.8 OTHER EXTERNAL CAUSE STATUS 06/20/2016 JENN CARBAJAL Ot Z79.02 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) USE OF ANTITHROMBOTI 06/20/2016 JENN CARBAJAL Ot Z79.4 SKILLED NURSING (CURRENT) USE OF INSULIN 06/20/2016 JENN CARBAJAL Ot 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 06/20/2016 JENN CARBAJAL Ot Z79.84 SKILLED NURSING (CURRENT) USE OF ORAL HYPOGLYC 06/20/2016 JENN CARBAJAL Ot Z79.899 OTHER SKILLED NURSING (CURRENT) DRUG THERAPY 06/20/2016 JENN CARBAJAL Ot Z95.1 PRESENCE OF AORTOCORONARY BYPASS GRAFT 06/20/2016 JENN CARBAJAL Ot 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 IMPLANT 06/21/2016 JENN CARBAJAL Ot E11.9 TYPE 2 DIABETES MELLITUS WITHOUT COMPLIC 06/21/2016 JENN CARBAJAL Ot I 10 ESSENTIAL (PRIMARY) HYPERTENSION 06/21/2016 JENN CARBAJAL Ot I48.2 CHRONIC ATRIAL FIBRILLATION 06/21/2016 JENN CARBAJAL Ot S41.112A LACERATION W/O FOREIGN BODY OF LEFT UPPE 06/21/2016 JENN CARBAJAL Ot W19.XXXA UNSPECIFIED FALL, INITIAL ENCOUNTER 06/21/2016 JENN CARBAJAL Ot Y99.8 OTHER EXTERNAL CAUSE STATUS 06/21/2016 JENN CARBAJAL Ot Z79.02 SKILLED NURSING (CURRENT) USE OF ANTITHROMBOTI 06/21/2016 JENN CARBAJAL Ot Z79.4 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) USE OF INSULIN 06/21/2016 JENN CARBAJAL Ot 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 06/21/2016 JENN CARBAJAL Ot Z79.84 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) USE OF ORAL HYPOGLYC 06/21/2016 JENN CARBAJAL Ot Z79.899 OTHER SKILLED NURSING (CURRENT) DRUG THERAPY 06/21/2016 JENN CARBAJAL Ot Z95.1 PRESENCE OF AORTOCORONARY BYPASS GRAFT 06/21/2016 JENN CARBAJAL Ot 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 IMPLANT 07/02/2016 RODOLFO CUELLO MD Ot E11.65 TYPE 2 DIABETES MELLITUS WITH HYPERGLYCE 07/02/2016 RODOLFO CUELLO MD Ot E86.1 HYPOVOLEMIA 07/02/2016 RODOLFO CUELLO MD Ot I10 ESSENTIAL (PRIMARY) HYPERTENSION 07/02/2016 RODOLFO CUELLO MD Ot I25.10 ATHSCL HEART DISEASE OF [place] CORONARY 07/02/2016 RODOLFO CUELLO MD Ot I48.2 CHRONIC ATRIAL FIBRILLATION 07/02/2016 RODOLFO CUELLO MD Ot I95.1 ORTHOSTATIC HYPOTENSION 07/02/2016 RODOLFO CUELLO MD Ot R42 DIZZINESS AND GIDDINESS 07/02/2016 RODOLFO CUELLO MD Ot Z79.02 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) USE OF ANTITHROMBOTI 07/02/2016 RODOLFO CUELLO MD Ot Z79.4 SKILLED NURSING (CURRENT) USE OF INSULIN 07/02/2016 RODOLFO CUELLO MD Ot 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 07/02/2016 RODOLFO CUELLO MD T Ot Z79.84 SKILLED NURSING (CURRENT) USE OF ORAL HYPOGLYC 07/02/2016 RODOLFO CUELLO MD T Ot Z79.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 07/02/2016 RODOLFO CUELLO MD Ot Z87.891 PERSONAL HISTORY OF NICOTINE DEPENDENCE 07/02/2016 RODOLFO CUELLO MD Ot Z95.1 PRESENCE OF AORTOCORONARY BYPASS GRAFT 07/02/2016 RODOLFO CUELLO MD Ot 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 IMPLANT 07/23/2016 TRELL STARKEY MD A Ot E11. 9 TYPE 2 DIABETES MELLITUS WITHOUT COMPLIC 07/23/2016 TRELL STARKEY MD A Ot E86. 1 HYPOVOLEMIA 07/23/2016 TRELL STARKEY MD A Ot I10 ESSENTIAL (PRIMARY) HYPERTENSION 07/23/2016 TRELL STARKEY MD A Ot I25. 10 ATHSCL HEART DISEASE OF [place] CORONARY 07/23/2016 TRELL STARKEY MD A Ot I48. 2 CHRONIC ATRIAL FIBRILLATION 07/23/2016 TRELL STARKEY MD A Ot I95. 1 ORTHOSTATIC HYPOTENSION 07/23/2016 TRELL STARKEY MD Ot R42 DIZZINESS AND GIDDINESS 07/23/2016 TRELL STARKEY MD A Ot Z79. 4 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) USE OF INSULIN 07/23/2016 TRELL STARKEY MD A Ot Z79. 82 SKILLED NURSING (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 07/23/2016 TRELL STARKEY MD A Ot Z79. 84 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) USE OF ORAL HYPOGLYC 07/23/2016 TRELL STARKEY MD A Ot Z79.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 07/23/2016 TRELL STARKEY MD A Ot Z95. 1 PRESENCE OF AORTOCORONARY BYPASS GRAFT 07/23/2016 TRELL STARKEY MD A Ot Z95. 5 PRESENCE OF CORONARY ANGIOPLASTY IMPLANT 07/25/2016 TRELL STARKEY MD A Ot E11. 9 TYPE 2 DIABETES MELLITUS WITHOUT COMPLIC 07/25/2016 TRELL STARKEY MD A Ot E86. 1 HYPOVOLEMIA 07/25/2016 TRELL STARKEY MD A Ot I10 ESSENTIAL (PRIMARY) HYPERTENSION 07/25/2016 ANISHA STARKEY MDNT A Ot I25. 10 ATHSCL HEART DISEASE OF [place] CORONARY 07/25/2016 TRELL STARKEY MD Ot I48. 2 CHRONIC ATRIAL FIBRILLATION 07/25/2016 TRELL STARKEY MD Ot I95. 1 ORTHOSTATIC HYPOTENSION 07/25/2016 TRELL STARKEY MD, Ot R42 DIZZINESS AND GIDDINESS 07/25/2016 TRELL STARKEY MD, Ot Z79. 4 SKILLED NURSING (CURRENT) USE OF INSULIN 07/25/2016 TRELL STARKEY MD, Ot Z79. 82 SKILLED NURSING (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 07/25/2016 TRELL STARKEY MD Ot Z79. 84 SKILLED NURSING (CURRENT) USE OF ORAL HYPOGLYC 07/25/2016 TRELL STARKEY MD, Ot Z79.899 OTHER SKILLED NURSING (CURRENT) DRUG THERAPY 07/25/2016 TRELL STARKEY MD Ot Z95. 1 PRESENCE OF AORTOCORONARY BYPASS GRAFT 07/25/2016 TRELL STARKEY MD Ot Z95. 5 PRESENCE OF CORONARY ANGIOPLASTY IMPLANT 08/09/2016 ROMAIN KNIGHT DO Ot E04.1 NONTOXIC SINGLE THYROID NODULE 08/09/2016 ROMAIN KNIGHT DO Ot E11.9 TYPE 2 DIABETES MELLITUS WITHOUT COMPLIC 08/09/2016 ROMAIN KNIGHT DO Ot F17.210 NICOTINE DEPENDENCE, CIGARETTES, UNCOMPL 08/09/2016 ROMAIN KNIGHT DO Ot G89.29 OTHER CHRONIC PAIN 08/09/2016 ROMAIN KNIGHT DO Ot I10 ESSENTIAL (PRIMARY) HYPERTENSION 08/09/2016 ROMAIN KNIGHT DO Ot I25.10 ATHSCL HEART DISEASE OF [place] CORONARY 08/09/2016 ROMAIN KNIGHT DO Ot I48.2 CHRONIC ATRIAL FIBRILLATION 08/09/2016 ROMAIN KNIGHT DO Ot M43.22 FUSION OF SPINE, CERVICAL REGION 08/09/2016 ROMAIN KNIGHT DO Ot M47.812 SPONDYLOSIS W/O MYELOPATHY OR RADICULOPA 08/09/2016 ROMAIN KNIGHT DO Ot M47.814 SPONDYLOSIS W/O MYELOPATHY OR RADICULOPA 08/09/2016 ROMAIN KNIGHT DO Ot S19.9XX A UNSPECIFIED INJURY OF NECK, INITIAL ENCO 08/09/2016 ROMAIN KNIGHT DO Ot 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 08/09/2016 ROMAIN KNIGHT DO Ot 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 08/09/2016 ROMAIN KNIHGT DO Ot Z79.899 OTHER SKILLED NURSING (CURRENT) DRUG THERAPY 08/09/2016 ROMAIN KNIGHT DO Ot 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 IMPLANT 08/09/2016 ROMAIN KNIGHT DO Ot E04.1 NONTOXIC SINGLE THYROID NODULE 08/09/2016 ROMAIN KNIGHT DO Ot E11.9 TYPE 2 DIABETES MELLITUS WITHOUT COMPLIC 08/09/2016 ROMAIN KNIGHT DO Ot F17.210 NICOTINE DEPENDENCE, CIGARETTES, UNCOMPL 08/09/2016 ROMAIN KNIGHT DO Ot G89.29 OTHER CHRONIC PAIN 08/09/2016 ROMAIN KNIGHT DO Ot I10 ESSENTIAL (PRIMARY) HYPERTENSION 08/09/2016 ROMAIN KNIGHT DO Ot I25.10 ATHSCL HEART DISEASE OF [place] CORONARY 08/09/2016 ROMAIN KNIGHT DO Ot I48.2 CHRONIC ATRIAL FIBRILLATION 08/09/2016 ROMAIN KNIGHT DO Ot M43.22 FUSION OF SPINE, CERVICAL REGION 08/09/2016 ROMAIN KNIGHT DO Ot M47.812 SPONDYLOSIS W/O MYELOPATHY OR RADICULOPA 08/09/2016 ROMAIN KNIGHT DO Ot M47.814 SPONDYLOSIS W/O MYELOPATHY OR RADICULOPA 08/09/2016 ROMAIN KNIGHT DO Ot S19.9XX A UNSPECIFIED INJURY OF NECK, INITIAL ENCO 08/09/2016 ROMAIN KNIGHT DO Ot Z79.01 SKILLED NURSING (CURRENT) USE OF ANTICOAGULANT 08/09/2016 ROMAIN KNIGHT DO Ot Z79.82 SKILLED NURSING (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 08/09/2016 ROMAIN KNIGHT DO Ot Z79.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 08/09/2016 ROMAIN KNIGHT DO [...] DO Ot I25.10 ATHSCL HEART DISEASE OF [place] CORONARY 08/11/2016 ROMAIN KNIGHT DO Ot I48.2 CHRONIC ATRIAL FIBRILLATION 08/11/2016 ROMAIN KNIGHT DO Ot M43.22 FUSION OF SPINE, CERVICAL REGION 08/11/2016 ROMAIN KNIGHT DO Ot M47.812 SPONDYLOSIS W/O MYELOPATHY OR RADICULOPA 08/11/2016 ROMAIN KNIGHT DO Ot M47.814 SPONDYLOSIS W/O MYELOPATHY OR RADICULOPA 08/11/2016 ROMAIN KNIGHT DO Ot S19.9XX A UNSPECIFIED INJURY OF NECK, INITIAL ENCO 08/11/2016 ROMAIN KNIGHT DO Ot 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 08/11/2016 ROMAIN KNIGHT DO Ot 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 08/11/2016 ROMAIN KNIGHT DO Ot Z79.899 OTHER SKILLED NURSING (CURRENT) DRUG THERAPY 08/11/2016 ROMAIN KNIGHT DO Ot 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 IMPLANT 08/31/2016 LLUVIA ROUSE DO Ot K29.80 DUODENITIS WITHOUT BLEEDING 08/31/2016 LLUVIA ROUSE DO Ot K85.90 ACUTE PANCREATITIS WITHOUT NECROSIS OR I 09/05/2016 LLUVIA ROUSE DO Ot K29.80 DUODENITIS WITHOUT BLEEDING 09/05/2016 [facility] K85.90 ACUTE PANCREATITIS WITHOUT NECROSIS OR I 09/05/2016 JUSTINE TABARES DO Ot E11.9 TYPE 2 DIABETES MELLITUS WITHOUT COMPLIC 09/05/2016 JUSTINE TABARES DO Ot E86.0 DEHYDRATION 09/05/2016 JUSTINE TABARES DO Ot I1 0 ESSENTIAL (PRIMARY) HYPERTENSION 09/05/2016 JUSTINE TABARES DO Ot I25.10 ATHSCL HEART DISEASE OF [place] CORONARY 09/05/2016 JUSTINE TABARES DO Ot I95.9 HYPOTENSION, UNSPECIFIED 09/05/2016 JUSTINE TABARES DO Ot J44.9 CHRONIC OBSTRUCTIVE PULMONARY DISEASE, U 09/05/2016 JUSTINE TABARES DO, Ot Z79.84 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) USE OF ORAL HYPOGLYC 09/05/2016 JUSTINE TABARES DO Ot Z79.899 OTHER SKILLED NURSING (CURRENT) DRUG THERAPY 09/05/2016 JUSTINE TABARES DO, Ot Z87.891 PERSONAL HISTORY OF NICOTINE DEPENDENCE 09/05/2016 JUSTINE TABARES DO, Ot Z95.1 PRESENCE OF AORTOCORONARY BYPASS GRAFT 09/05/2016 JUSTINE TABARES DO Ot 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 IMPLANT 09/06/2016 JUSTINE TABARES DO Ot E11.9 TYPE 2 DIABETES MELLITUS WITHOUT COMPLIC 09/06/2016 JUSTINE TABARES DO Ot E86.0 DEHYDRATION 09/06/2016 JUSTINE TABARES DO Ot I1 0 ESSENTIAL (PRIMARY) HYPERTENSION 09/06/2016 JUSTINE TABARES DO Ot I25.10 ATHSCL HEART DISEASE OF [place] CORONARY 09/06/2016 JUSTINE TABARES DO Ot I95.9 HYPOTENSION, UNSPECIFIED 09/06/2016 JUSTINE TABARES DO, Ot J44.9 CHRONIC OBSTRUCTIVE PULMONARY DISEASE, U 09/06/2016 JUSTINE TABARES DO, Ot Z79.84 SKILLED NURSING (CURRENT) USE OF ORAL HYPOGLYC 09/06/2016 JUSTINE TABARES DO, Ot Z79.899 OTHER SKILLED NURSING (CURRENT) DRUG THERAPY 09/06/2016 JUSTINE TABARES DO, Ot Z87.891 PERSONAL HISTORY OF NICOTINE DEPENDENCE 09/06/2016 JUSTINE TABARES DO, Ot Z95.1 PRESENCE OF AORTOCORONARY BYPASS GRAFT 09/06/2016 JUSTINE TABARES DO Ot 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 IMPLANT 09/07/2016 JUSTINE TABARES DO Ot E11.9 TYPE 2 DIABETES MELLITUS WITHOUT COMPLIC 09/07/2016 JUSTINE TABARES DO Ot E86.0 DEHYDRATION 09/07/2016 JUSTINE TABARES DO Ot I1 0 ESSENTIAL (PRIMARY) HYPERTENSION 09/07/2016 JUSTINE TABARES DO Ot I25.10 ATHSCL HEART DISEASE OF [place] CORONARY 09/07/2016 JUSTINE TABARES DO Ot I95.9 HYPOTENSION, UNSPECIFIED 09/07/2016 JUSTINE TABARES DO, Ot J44.9 CHRONIC OBSTRUCTIVE PULMONARY DISEASE, U 09/07/2016 JUSTINE TABARES DO, Ot Z79.84 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) USE OF ORAL HYPOGLYC 09/07/2016 JUSTINE TABARES DO Ot Z79.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 09/07/2016 JUSTINE TABARES DO, Ot Z87.891 PERSONAL HISTORY OF NICOTINE DEPENDENCE 09/07/2016 JUSTINE TABARES DO Ot Z95.1 PRESENCE OF AORTOCORONARY BYPASS GRAFT 09/07/2016 JUSTINE TABARES DO Ot 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 IMPLANT 09/17/2016 CHARO SCHNEIDER MD Ot E11.9 TYPE 2 DIABETES MELLITUS WITHOUT COMPLIC 09/17/2016 CHARO SCHNEIDER MD Ot I10 ESSENTIAL (PRIMARY) HYPERTENSION 09/17/2016 CHARO SCHNEIDER MD, Ot I25.10 ATHSCL HEART DISEASE OF [place] CORONARY 09/17/2016 CHARO SCHNEIDER MD, Ot J44.9 CHRONIC OBSTRUCTIVE PULMONARY DISEASE, U 09/17/2016 CHARO SCHNEIDER MD Ot R10.13 EPIGASTRIC PAIN 09/17/2016 CHARO SCHNEIDER MD Ot Z79.4 SKILLED NURSING (CURRENT) USE OF INSULIN 09/17/2016 CHARO SCHNEIDER MD Ot Z79.82 SKILLED NURSING (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 09/17/2016 CHARO SCHNEIDER MD Ot Z79.84 SKILLED NURSING (CURRENT) USE OF ORAL HYPOGLYC 09/17/2016 CHARO SCHNEIDER MD Ot Z79.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 09/17/2016 CHARO SCHNEIDER MD Ot Z95.1 PRESENCE OF AORTOCORONARY BYPASS GRAFT 09/17/2016 CHARO SCHNEIDER MD Ot 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 IMPLANT 09/20/2016 CHARO SCHNEIDER MD Ot E11.9 TYPE 2 DIABETES MELLITUS WITHOUT COMPLIC 09/20/2016 CHARO SCHNEIDER MD Ot I10 ESSENTIAL (PRIMARY) HYPERTENSION 09/20/2016 CHARO SCHNEIDER MD Ot I25.10 ATHSCL HEART DISEASE OF [place] CORONARY 09/20/2016 CHARO SCHNEIDER MD Ot J44.9 CHRONIC OBSTRUCTIVE PULMONARY DISEASE, U 09/20/2016 CHARO SCHNEIDER MD Ot R10.13 EPIGASTRIC PAIN 09/20/2016 CHARO SCHNEIDER MD Ot Z79.4 SKILLED NURSING (CURRENT) USE OF INSULIN 09/20/2016 CHARO SCHNEIDER MD Ot 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 09/20/2016 CHARO SCHNEIDER MD, Ot Z79.84 SKILLED NURSING (CURRENT) USE OF ORAL HYPOGLYC 09/20/2016 CHARO SCHNEIDER MD, Ot Z79.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 09/20/2016 CHARO SCHNEIDER MD, Ot Z95.1 PRESENCE OF AORTOCORONARY BYPASS GRAFT 09/20/2016 CHARO SCHNEIDER MD, Ot 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 IMPLANT 09/20/2016 LLUVIA ROUSE DO Ot E11.43 TYPE 2 DIABETES W DIABETIC AUTONOMIC (PO 09/20/2016 LLUVIA ROUSE DO Ot E11.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 W DIABETIC PERIPHERAL AN 09/20/2016 LLUVIA ROUSE DO Ot E11.649 TYPE 2 DIABETES MELLITUS WITH HYPOGLYCEM 09/20/2016 LLUVIA ROUSE DO Ot E78.5 HYPERLIPIDEMIA, UNSPECIFIED 09/20/2016 LLUVIA ROUSE DO Ot F41.9 ANXIETY DISORDER, UNSPECIFIED 09/20/2016 LLUVIA ROUSE DO Ot G47.30 SLEEP APNEA, UNSPECIFIED 09/20/2016 LLUVIA ROUSE DO Ot I10 ESSENTIAL (PRIMARY) HYPERTENSION 09/20/2016 LLUVIA ROUSE DO Ot I25.10 ATHSCL HEART DISEASE OF [place] CORONARY 09/20/2016 LLUVIA ROUSE DO Ot I25.2 OLD MYOCARDIAL INFARCTION 09/20/2016 LLUVIA ROUSE DO Ot I48.0 PAROXYSMAL ATRIAL FIBRILLATION 09/20/2016 LLUVIA ROUSE DO Ot I48.92 UNSPECIFIED ATRIAL FLUTTER 09/20/2016 LLUVIA ROUSE DO Ot I73.9 PERIPHERAL VASCULAR DISEASE, UNSPECIFIED 09/20/2016 LLUVIA ROUSE DO Ot I77.9 DISORDER OF ARTERIES AND ARTERIOLES, UNS 09/20/2016 LLUVIA ROUSE DO Ot I95.9 HYPOTENSION, UNSPECIFIED 09/20/2016 LLUVIA ROUSE DO Ot J44.9 CHRONIC OBSTRUCTIVE PULMONARY DISEASE, U 09/20/2016 LLUVIA ROUSE DO Ot K21.9 GASTRO-ESOPHAGEAL REFLUX DISEASE WITHOUT 09/20/2016 PADMA RIVERALLUVIA Ot M19.91 PRIMARY OSTEOARTHRITIS, UNSPECIFIED SITE 09/20/2016 PADMA RIVERALLUVIA Ot M48.10 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], SIT 09/20/2016 PADMA RIVERALLUVIA Ot N28.9 DISORDER OF KIDNEY AND URETER, UNSPECIFI 09/20/2016 PADMA RIVERALLUVIA Ot R07.9 CHEST PAIN, UNSPECIFIED 09/20/2016 PADMA RIVERALLUVIA Ot Z79.4 SKILLED NURSING (CURRENT) USE OF INSULIN 09/20/2016 PADMA RIVERALLUVIA Ot Z86.73 PRSNL HX OF TIA (TIA), AND CEREB INFRC W 09/20/2016 PADMA RIVERALLUVIA Ot Z87.891 PERSONAL HISTORY OF NICOTINE DEPENDENCE 09/20/2016 PADMA RIVERALLUVIA Ot Z91.19 PATIENT'S NONCOMPLIANCE W [facility] MEDICAL TR 09/20/2016 PADMA RIVERALLUVIA Ot Z95.1 PRESENCE OF AORTOCORONARY BYPASS GRAFT 09/20/2016 PADMA RIVERALLUVIA Ot 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 IMPLANT 09/20/2016 PADMA RIVREALLUVIA Ot Z98.890 OTHER SPECIFIED POSTPROCEDURAL STATES 09/20/2016 PADMA RIVERALLUVIA Ot K29.80 DUODENITIS WITHOUT BLEEDING 09/20/2016 PADMA RIVERALLUVIA Ot K85.90 ACUTE PANCREATITIS WITHOUT NECROSIS OR I 09/23/2016 JONATHAN DOUGHERTY, Daniel MONSALVE Ot 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 DIABETIC REPAIR CAMERAMAN 09/23/2016 JONATHAN DOUGHERTY, Daniel MONSALVE Ot I25.110 ATHSCL HEART DISEASE OF [place] COR ART W 09/23/2016 Daniel CASTILLO MD Ot 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 09/23/2016 Daniel CASTILLO MD Ot I48.91 UNSPECIFIED ATRIAL FIBRILLATION 09/23/2016 Daniel CASTILLO MD Ot N18 .9 CHRONIC KIDNEY DISEASE, UNSPECIFIED 09/23/2016 Daniel CASTILLO MD Ot T82.857D STENOSIS OF OTHER CARDIAC PROSTH DEV/GRF 09/23/2016 Daniel CASTILLO MD Ot Z79.01 SKILLED NURSING (CURRENT) USE OF ANTICOAGULANT 09/23/2016 Daniel CASTILLO MD Ot Z79.84 SKILLED NURSING (CURRENT) USE OF ORAL HYPOGLYC 09/23/2016 Daniel CASTILLO MD Ot Z79.899 OTHER SKILLED NURSING (CURRENT) DRUG THERAPY 09/23/2016 Daniel CASTILLO MD, Ot Z87.891 PERSONAL HISTORY OF NICOTINE DEPENDENCE 09/23/2016 Daniel CASTILLO MD Ot Z95 .5 PRESENCE OF CORONARY ANGIOPLASTY IMPLANT 09/25/2016 LLUVIA ROUSE DO Ot K29.80 DUODENITIS WITHOUT BLEEDING 09/25/2016 LLUVIA ROUSE DO Ot K85.90 ACUTE PANCREATITIS WITHOUT NECROSIS OR I 09/25/2016 LLUVIA ROUSE DO Ot R10.9 UNSPECIFIED ABDOMINAL PAIN 09/27/2016 GHANSHYAM KNIGHT DOA K Ot E11.9 TYPE 2 DIABETES MELLITUS WITHOUT COMPLIC 09/27/2016 GHANSHYAM KNIGHT DOA K Ot I48.2 CHRONIC ATRIAL FIBRILLATION 09/27/2016 EUGENE RIVERA ROMAIN K Ot I95.9 HYPOTENSION, UNSPECIFIED 09/27/2016 EUGENE RIVERA ROMAIN K Ot J44.9 CHRONIC OBSTRUCTIVE PULMONARY DISEASE, U 09/27/2016 EUGENE RIVERA ROMAIN K Ot 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 09/27/2016 EUGENE RIVERA ROMAIN K Ot Z79.4 SKILLED NURSING (CURRENT) USE OF INSULIN 09/27/2016 GHANSHYAM KNIGHT DOA K Ot 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 09/27/2016 EUGENE RIVERA ROMAIN K Ot Z79.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 09/27/2016 GHANSHYAM KNIGHT DOA K Ot Z87.891 PERSONAL HISTORY OF NICOTINE DEPENDENCE 09/27/2016 ROMAIN KNIGHT DO K Ot Z95.1 PRESENCE OF AORTOCORONARY BYPASS GRAFT 09/27/2016 ROMAIN KNIGHT DO Ot 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 IMPLANT 09/27/2016 ROMAIN KNIGHT DO Ot Z98.890 OTHER SPECIFIED POSTPROCEDURAL STATES 09/28/2016 Daniel CASTILLO MD Ot 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 DIABETIC REPAIR CAMERAMAN 09/28/2016 Daniel CASTILLO MD Ot I25.110 ATHSCL HEART DISEASE OF [place] COR ART W 09/28/2016 Daniel CASTILLO MD Ot 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 09/28/2016 Daniel CASTILLO MD Ot I48.91 UNSPECIFIED ATRIAL FIBRILLATION 09/28/2016 Daniel CASTILLO MD, Ot N18 .9 CHRONIC KIDNEY DISEASE, UNSPECIFIED 09/28/2016 Daniel CASTILLO MD, Ot T82.857D STENOSIS OF OTHER CARDIAC PROSTH DEV/GRF 09/28/2016 Daniel CASTILLO MD, Ot 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 09/28/2016 Daniel CASTILLO MD Ot Z79.84 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) USE OF ORAL HYPOGLYC 09/28/2016 Daniel CASTILLO MD Ot Z79.899 OTHER SKILLED NURSING (CURRENT) DRUG THERAPY 09/28/2016 Daniel CASTILLO MD, Ot Z87.891 PERSONAL HISTORY OF NICOTINE DEPENDENCE 09/28/2016 Daniel CASTILLO MD Ot Z95 .5 PRESENCE OF CORONARY ANGIOPLASTY IMPLANT 09/30/2016 Daniel CASTILLO MD Ot 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 DIABETIC REPAIR CAMERAMAN 09/30/2016 Daniel CASTILLO MD Ot I25.110 ATHSCL HEART DISEASE OF [place] COR ART W 09/30/2016 Daniel CASTILLO MD Ot 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 09/30/2016 Daniel CASTILLO MD Ot I48.91 UNSPECIFIED ATRIAL FIBRILLATION 09/30/2016 Daniel CASTILLO MD, Ot N18 .9 CHRONIC KIDNEY DISEASE, UNSPECIFIED 09/30/2016 Daniel CASTILLO MD, Ot T82.857D STENOSIS OF OTHER CARDIAC PROSTH DEV/GRF 09/30/2016 Daniel CASTILLO MD Ot Z79.01 SKILLED NURSING (CURRENT) USE OF ANTICOAGULANT 09/30/2016 Daniel CASTILLO MD Ot Z79.84 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) USE OF ORAL HYPOGLYC 09/30/2016 Daniel CASTILLO MD Ot Z79.899 OTHER SKILLED NURSING (CURRENT) DRUG THERAPY 09/30/2016 Daniel CASTILLO MD Ot Z87.891 PERSONAL HISTORY OF NICOTINE DEPENDENCE 09/30/2016 Daniel CASTILLO MD Ot Z95 .5 PRESENCE OF CORONARY ANGIOPLASTY IMPLANT 10/02/2016 MICHAELLLUVIA ESTES DO Ot R10.9 UNSPECIFIED ABDOMINAL PAIN 10/17/2016 CHARO SCHNEIDER MD Ot E11.9 TYPE 2 DIABETES MELLITUS WITHOUT COMPLIC 10/17/2016 CHARO SCHNEIDER MD Ot I10 ESSENTIAL (PRIMARY) HYPERTENSION 10/17/2016 CHARO SCHNEIDER MD Ot I25.10 ATHSCL HEART DISEASE OF [place] CORONARY 10/17/2016 CHARO SCHNEIDER MD Ot J44.9 CHRONIC OBSTRUCTIVE PULMONARY DISEASE, U 10/17/2016 CHARO SCHNEIDER MD Ot R10.13 EPIGASTRIC PAIN 10/17/2016 CHARO SCHNEIDER MD Ot Z79.4 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) USE OF INSULIN 10/17/2016 CHARO SCHNEIDER MD Ot 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 10/17/2016 CHARO SCHNEIDER MD Ot Z79.84 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) USE OF ORAL HYPOGLYC 10/17/2016 CHARO SCHNEIDER MD Ot Z79.899 OTHER SKILLED NURSING (CURRENT) DRUG THERAPY 10/17/2016 CHARO SCHNEIDER MD Ot Z95.1 PRESENCE OF AORTOCORONARY BYPASS GRAFT 10/17/2016 CHARO SCHNEIDER MD Ot 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 IMPLANT 10/23/2016 CHARO SCHNEIDER MD Ot E11.9 TYPE 2 DIABETES MELLITUS WITHOUT COMPLIC 10/23/2016 CHARO SCHNEIDER MD Ot I10 ESSENTIAL (PRIMARY) HYPERTENSION 10/23/2016 CHARO SCHNEIDER MD Ot I25.10 ATHSCL HEART DISEASE OF [place] CORONARY 10/23/2016 CHARO SCHNEIDER MD Ot J44.9 CHRONIC OBSTRUCTIVE PULMONARY DISEASE, U 10/23/2016 CHARO SCHNEIDER MD Ot R10.13 EPIGASTRIC PAIN 10/23/2016 CHARO SCHNEIDER MD Ot Z79.4 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) USE OF INSULIN 10/23/2016 CHARO SCHNEIDER MD Ot 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 10/23/2016 CHARO SCHNEIDER MD Ot Z79.84 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) USE OF ORAL HYPOGLYC 10/23/2016 CHARO SCHNEIDER MD, Ot Z79.899 OTHER SKILLED NURSING (CURRENT) DRUG THERAPY 10/23/2016 CHARO SCHNEIDER MD Ot Z95.1 PRESENCE OF AORTOCORONARY BYPASS GRAFT 10/23/2016 CHARO SCHNEIDER MD Ot 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 IMPLANT 11/27/2016 WENDY SARMIENTO MD Ot E11. 65 TYPE 2 DIABETES MELLITUS WITH HYPERGLYCE 11/27/2016 WENDY SARMIENTO MD Ot E78. 00 PURE HYPERCHOLESTEROLEMIA, UNSPECIFIED 11/27/2016 WENDY SARMIENTO MD Ot F17.210 NICOTINE DEPENDENCE, CIGARETTES, UNCOMPL 11/27/2016 WENDY SARMIENTO MD Ot F41. 9 ANXIETY DISORDER, UNSPECIFIED 11/27/2016 WENDY SARMIENTO MD Ot I10 ESSENTIAL (PRIMARY) HYPERTENSION 11/27/2016 WENDY SARMIENTO MD Ot I25. 10 ATHSCL HEART DISEASE OF [place] CORONARY 11/27/2016 WENDY SARMIENTO MD Ot I25. 2 OLD MYOCARDIAL INFARCTION 11/27/2016 WENDY SARMIENTO MD Ot I48. 91 UNSPECIFIED ATRIAL FIBRILLATION 11/27/2016 WENDY SARMIENTO MD Ot I95. 1 ORTHOSTATIC HYPOTENSION 11/27/2016 WENDY SARMIENTO MD Ot K21. 9 GASTRO-ESOPHAGEAL REFLUX DISEASE WITHOUT 11/27/2016 WENDY SARMIENTO MD Ot M47. 9 SPONDYLOSIS, UNSPECIFIED 11/27/2016 WENDY SARMIENTO MD Ot N28. 9 DISORDER OF KIDNEY AND URETER, UNSPECIFI 11/27/2016 WENDY SARMIENTO MD Ot N40. 0 BENIGN PROSTATIC HYPERPLASIA WITHOUT LOW 11/27/2016 WENDY SARMIENTO MD Ot R03. 1 NONSPECIFIC LOW BLOOD-PRESSURE READING 11/27/2016 WENDY SARMIENTO MD Ot Z79. 4 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) USE OF INSULIN 11/27/2016 WENDY SARMIENTO MD Ot Z79. 82 SKILLED NURSING (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 11/27/2016 WENDY SARMIENTO MD Ot Z79. 84 SKILLED NURSING (CURRENT) USE OF ORAL HYPOGLYC 11/27/2016 WENDY SARMIENTO MD Ot Z95. 1 PRESENCE OF AORTOCORONARY BYPASS GRAFT 11/27/2016 WENDY SARMIENTO MD Ot Z95. 5 PRESENCE OF CORONARY ANGIOPLASTY IMPLANT 11/29/2016 WENDY SARMIENTO MD Ot E11. 65 TYPE 2 DIABETES MELLITUS WITH HYPERGLYCE 11/29/2016 WENDY SARMIENTO MD Ot E78. 00 PURE HYPERCHOLESTEROLEMIA, UNSPECIFIED 11/29/2016 WENDY SARMIENTO MD Ot F17.210 NICOTINE DEPENDENCE, CIGARETTES, UNCOMPL 11/29/2016 WENDY SARMIENTO MD Ot F41. 9 ANXIETY DISORDER, UNSPECIFIED 11/29/2016 WENDY SARMIENTO MD Ot I10 ESSENTIAL (PRIMARY) HYPERTENSION 11/29/2016 WENDY SARMIENTO MD Ot I25. 10 ATHSCL HEART DISEASE OF [place] CORONARY 11/29/2016 WENDY SARMIENTO MD Ot I25. 2 OLD MYOCARDIAL INFARCTION 11/29/2016 WENDY SARMIENTO MD Ot I48. 91 UNSPECIFIED ATRIAL FIBRILLATION 11/29/2016 WENDY SARMIENTO MD Ot I95. 1 ORTHOSTATIC HYPOTENSION 11/29/2016 WENDY SARMIENTO MD Ot K21. 9 GASTRO-ESOPHAGEAL REFLUX DISEASE WITHOUT 11/29/2016 WENDY SARMIENTO MD Ot M47. 9 SPONDYLOSIS, UNSPECIFIED 11/29/2016 WENDY SARMIENTO MD Ot N28. 9 DISORDER OF KIDNEY AND URETER, UNSPECIFI 11/29/2016 WENDY SARMIENTO MD Ot N40. 0 BENIGN PROSTATIC HYPERPLASIA WITHOUT LOW 11/29/2016 WENDY SARMIENTO MD Ot R03. 1 NONSPECIFIC LOW BLOOD-PRESSURE READING 11/29/2016 WENDY SARMIENTO MD Ot Z79. 4 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) USE OF INSULIN 11/29/2016 WENDY SARMIENTO MD Ot Z79. 82 SKILLED NURSING (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 11/29/2016 WENDY SARMIENTO MD Ot Z79. 84 SKILLED NURSING (CURRENT) USE OF ORAL HYPOGLYC 11/29/2016 WENDY SARMIENTO MD Ot Z95. 1 PRESENCE OF AORTOCORONARY BYPASS GRAFT 11/29/2016 WENDY SARMIENTO MD Ot Z95. 5 PRESENCE OF CORONARY ANGIOPLASTY IMPLANT 11/29/2016 WENDY SARMIENTO MD Ot E11. 65 TYPE 2 DIABETES MELLITUS WITH HYPERGLYCE 11/29/2016 WENDY SARMIENTO MD Ot E78. 00 PURE HYPERCHOLESTEROLEMIA, UNSPECIFIED 11/29/2016 WENDY SARMIENTO MD Ot F17.210 NICOTINE DEPENDENCE, CIGARETTES, UNCOMPL 11/29/2016 WENDY SARMIENTO MD Ot F41. 9 ANXIETY DISORDER, UNSPECIFIED 11/29/2016 WENDY SARMIENTO MD Ot I10 ESSENTIAL (PRIMARY) HYPERTENSION 11/29/2016 WENDY SARMIENTO MD Ot I25. 10 ATHSCL HEART DISEASE OF [place] CORONARY 11/29/2016 WENDY SARMIENTO MD Ot I25. 2 OLD MYOCARDIAL INFARCTION 11/29/2016 WENDY SARMIENTO MD Ot I48. 91 UNSPECIFIED ATRIAL FIBRILLATION 11/29/2016 WENDY SARMIENTO MD Ot I95. 1 ORTHOSTATIC HYPOTENSION 11/29/2016 WENDY SARMIENTO MD Ot K21. 9 GASTRO-ESOPHAGEAL REFLUX DISEASE WITHOUT 11/29/2016 WENDY SARMIENTO MD Ot M47. 9 SPONDYLOSIS, UNSPECIFIED 11/29/2016 WENDY SARMIENTO MD Ot N28. 9 DISORDER OF KIDNEY AND URETER, UNSPECIFI 11/29/2016 WENDY SARMIENTO MD Ot N40. 0 BENIGN PROSTATIC HYPERPLASIA WITHOUT LOW 11/29/2016 WENDY SARMIENTO MD Ot R03. 1 NONSPECIFIC LOW BLOOD-PRESSURE READING 11/29/2016 WENDY SARMIENTO MD Ot Z79. 4 SKILLED NURSING (CURRENT) USE OF INSULIN 11/29/2016 WENDY SARMIENTO MD Ot Z79. 82 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 11/29/2016 WENDY SARMIENTO MD Ot Z79. 84 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) USE OF ORAL HYPOGLYC 11/29/2016 WENDY SARMIENTO MD Ot Z95. 1 PRESENCE OF AORTOCORONARY BYPASS GRAFT 11/29/2016 WENDY SARMIENTO MD Ot Z95. 5 PRESENCE OF CORONARY ANGIOPLASTY IMPLANT 12/05/2016 LLUVIA ROUSE DO Ot E11.9 TYPE 2 DIABETES MELLITUS WITHOUT COMPLIC 12/05/2016 LLUVIA ROUSE DO Ot E78.5 HYPERLIPIDEMIA, UNSPECIFIED 12/05/2016 HERONJULIO LLUVIA RIVERA Ot F17.210 NICOTINE DEPENDENCE, CIGARETTES, UNCOMPL 12/05/2016 LLUVIA ROUSE DO Ot I12.9 HYPERTENSIVE CHRONIC KIDNEY DISEASE W ST 12/05/2016 HERONJULIO LLUVIA RIVERA Ot I25.10 ATHSCL HEART DISEASE OF [place] CORONARY 12/05/2016 LLUVIA ROUSE DO Ot I48.1 PERSISTENT ATRIAL FIBRILLATION 12/05/2016 LLUVIA ROUSE DO Ot J44.9 CHRONIC OBSTRUCTIVE PULMONARY DISEASE, U 12/05/2016 HERONJULIO LLUVIA RIVERA Ot K85.90 ACUTE PANCREATITIS WITHOUT NECROSIS OR I 12/05/2016 LLUVIA ROUSE DO Ot N18.9 CHRONIC KIDNEY DISEASE, UNSPECIFIED 12/05/2016 LLUVIA ROUSE DO Ot R07.9 CHEST PAIN, UNSPECIFIED 12/05/2016 LLUVIA ROUSE DO Ot Z79.4 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) USE OF INSULIN 12/05/2016 LLUVIA ROUSE DO Ot 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 12/05/2016 LLUVIA ROUSE DO Ot Z79.84 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) USE OF ORAL HYPOGLYC 12/05/2016 LLUVIA ROUSE DO Ot Z79.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 12/05/2016 LLUVIA ROUSE DO Ot Z95.1 PRESENCE OF AORTOCORONARY BYPASS GRAFT 12/05/2016 LLUVIA ROUSE DO Ot 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 IMPLANT 12/16/2016 JUSTINE TABARES DO Ot E11.9 TYPE 2 DIABETES MELLITUS WITHOUT COMPLIC 12/16/2016 JUSTINE TABARES DO Ot E78.00 PURE HYPERCHOLESTEROLEMIA, UNSPECIFIED 12/16/2016 JUSTINE TABARES DO Ot I1 0 ESSENTIAL (PRIMARY) HYPERTENSION 12/16/2016 JUSTINE TABARES DO Ot I25.10 ATHSCL HEART DISEASE OF [place] CORONARY 12/16/2016 JUSTINE TABARES DO Ot I25.2 OLD MYOCARDIAL INFARCTION 12/16/2016 JUSTINE TABARES DO Ot I48.91 UNSPECIFIED ATRIAL FIBRILLATION 12/16/2016 JUSTINE TABARES DO, Ot J44.9 CHRONIC OBSTRUCTIVE PULMONARY DISEASE, U 12/16/2016 JUSTINE TABARES DO, Ot K21.9 GASTRO-ESOPHAGEAL REFLUX DISEASE WITHOUT 12/16/2016 JUSTINE TABARES DO, Ot M47.9 SPONDYLOSIS, UNSPECIFIED 12/16/2016 JUSTINE TABARES DO, Ot N40.0 BENIGN PROSTATIC HYPERPLASIA WITHOUT LOW 12/16/2016 JUSTINE TABARES DO, Ot R10.9 UNSPECIFIED ABDOMINAL PAIN 12/16/2016 JUSTINE TABARES DO, Ot R14.0 ABDOMINAL DISTENSION (GASEOUS) 12/16/2016 JUSTINE TABARES DO, Ot Z79.4 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) USE OF INSULIN 12/16/2016 JUSTINE TABARES DO, Ot Z79.82 SKILLED NURSING (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 12/16/2016 JUSTINE TABARES DO, Ot Z82.49 FAMILY HX OF ISCHEM HEART DIS AND OTH DI 12/16/2016 JUSTINE TABARES DO, Ot Z86.73 PRSNL HX OF TIA (TIA), AND CEREB INFRC W 12/16/2016 JUSTINE TABARES DO, Ot Z87.891 PERSONAL HISTORY OF NICOTINE DEPENDENCE 12/16/2016 JUSTINE TABARES DO, Ot Z95.1 PRESENCE OF AORTOCORONARY BYPASS GRAFT 12/16/2016 JUSTINE TABARES DO, Ot 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 IMPLANT 12/16/2016 JUSTINE TABARES DO, Ot Z96.60 PRESENCE OF UNSPECIFIED ORTHOPEDIC JOINT 12/18/2016 JUSTINE TABARES DO, Ot E11.9 TYPE 2 DIABETES MELLITUS WITHOUT COMPLIC 12/18/2016 JUSTINE TABARES DO, Ot E78.00 PURE HYPERCHOLESTEROLEMIA, UNSPECIFIED 12/18/2016 JUSTINE TABARES DO, Ot I1 0 ESSENTIAL (PRIMARY) HYPERTENSION 12/18/2016 JUSTINE TABARES DO, Ot I25.10 ATHSCL HEART DISEASE OF [place] CORONARY 12/18/2016 JUSTINE TABARES DO, Ot I25.2 OLD MYOCARDIAL INFARCTION 12/18/2016 JUSTINE TABARES DO, Ot I48.91 UNSPECIFIED ATRIAL FIBRILLATION 12/18/2016 JUSTINE TABARES DO, Ot J44.9 CHRONIC OBSTRUCTIVE PULMONARY DISEASE, U 12/18/2016 JUSTINE TABARES DO, Ot K21.9 GASTRO-ESOPHAGEAL REFLUX DISEASE WITHOUT 12/18/2016 JUSTINE TABARES DO, Ot M47.9 SPONDYLOSIS, UNSPECIFIED 12/18/2016 JUSTINE TABARES DO, Ot N40.0 BENIGN PROSTATIC HYPERPLASIA WITHOUT LOW 12/18/2016 JUSTINE TABARES DO, Ot R10.9 UNSPECIFIED ABDOMINAL PAIN 12/18/2016 JUSTINE TABARES DO, Ot R14.0 ABDOMINAL DISTENSION (GASEOUS) 12/18/2016 JUSTINE TABARES DO, Ot Z79.4 SKILLED NURSING (CURRENT) USE OF INSULIN 12/18/2016 JUSTINE TABARES DO, Ot 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 12/18/2016 JUSTINE TABARES DO, Ot Z82.49 FAMILY HX OF ISCHEM HEART DIS AND OTH DI 12/18/2016 JUSTINE TABARES DO, Ot Z86.73 PRSNL HX OF TIA (TIA), AND CEREB INFRC W 12/18/2016 JUSTINE TABARES DO, Ot Z87.891 PERSONAL HISTORY OF NICOTINE DEPENDENCE 12/18/2016 JUSTINE TABARES DO, Ot Z95.1 PRESENCE OF AORTOCORONARY BYPASS GRAFT 12/18/2016 JUSTINE TABARES DO, Ot 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 IMPLANT 12/18/2016 JUSTINE TABARES DO, Ot Z96.60 PRESENCE OF UNSPECIFIED ORTHOPEDIC JOINT 12/22/2016 JUSTINE TABARES DO, Ot E11.9 TYPE 2 DIABETES MELLITUS WITHOUT COMPLIC 12/22/2016 JUSTINE TABARES DO, Ot E78.00 PURE HYPERCHOLESTEROLEMIA, UNSPECIFIED 12/22/2016 JUSTINE TABARES DO, Ot I1 0 ESSENTIAL (PRIMARY) HYPERTENSION 12/22/2016 JUSTINE TABARES DO, Ot I25.10 ATHSCL HEART DISEASE OF [place] CORONARY 12/22/2016 JUSTINE TABARES DO, Ot I25.2 OLD MYOCARDIAL INFARCTION 12/22/2016 JUSTINE TABARES DO, Ot I48.91 UNSPECIFIED ATRIAL FIBRILLATION 12/22/2016 JUSTINE TABARES DO, Ot J44.9 CHRONIC OBSTRUCTIVE PULMONARY DISEASE, U 12/22/2016 JUSTINE TABARES DO, Ot K21.9 GASTRO-ESOPHAGEAL REFLUX DISEASE WITHOUT 12/22/2016 JUSTINE TABARES DO, Ot M47.9 SPONDYLOSIS, UNSPECIFIED 12/22/2016 JUSTINE TABARES DO, Ot N40.0 BENIGN PROSTATIC HYPERPLASIA WITHOUT LOW 12/22/2016 JUSTINE TABARES DO, Ot R10.9 UNSPECIFIED ABDOMINAL PAIN 12/22/2016 JUSTINE TABARES DO, Ot R14.0 ABDOMINAL DISTENSION (GASEOUS) 12/22/2016 RAYSHAWN DO, JUSTINE D Ot Z79.4 SKILLED NURSING (CURRENT) USE OF INSULIN 12/22/2016 JUSTINE TABARES DO, Ot Z79.82 SKILLED NURSING (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 12/22/2016 JUSTINE TABARES DO, Ot Z82.49 FAMILY HX OF ISCHEM HEART DIS AND OTH DI 12/22/2016 JUSTINE TABARES DO, Ot Z86.73 PRSNL HX OF TIA (TIA), AND CEREB INFRC W 12/22/2016 JUSTINE TABARES DO, Ot Z87.891 PERSONAL HISTORY OF NICOTINE DEPENDENCE 12/22/2016 JUSTINE TABARES DO, Ot Z95.1 PRESENCE OF AORTOCORONARY BYPASS GRAFT 12/22/2016 JUSTINE TABARES DO, Ot 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 IMPLANT 12/22/2016 JUSTINE TABARES DO, Ot Z96.60 PRESENCE OF UNSPECIFIED ORTHOPEDIC JOINT 01/05/2017 Daniel CASTILLO MD Ot 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 DIABETIC REPAIR CAMERAMAN 01/05/2017 Daniel CASTILLO MD, Ot I25.110 ATHSCL HEART DISEASE OF [place] COR ART W 01/05/2017 Daniel CASTILLO MD, Ot 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 01/05/2017 Daniel CASTILLO MD Ot I48.91 UNSPECIFIED ATRIAL FIBRILLATION 01/05/2017 Daniel CASTILLO MD, Ot N18 .9 CHRONIC KIDNEY DISEASE, UNSPECIFIED 01/05/2017 Daniel CASTILLO MD, Ot T82.857D STENOSIS OF OTHER CARDIAC PROSTH DEV/GRF 01/05/2017 Daniel CASTILLO MD Ot 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 01/05/2017 Daniel CASTILLO MD Ot Z79.84 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) USE OF ORAL HYPOGLYC 01/05/2017 Daniel CASTILLO MD, Ot Z79.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 01/05/2017 Daniel CASTILLO MD, Ot Z87.891 PERSONAL HISTORY OF NICOTINE DEPENDENCE 01/05/2017 Daniel CASTILLO MD Ot Z95 .5 PRESENCE OF CORONARY ANGIOPLASTY IMPLANT 01/14/2017 TORSTEN DOUGHERTY, WENDY Colon Ot A08. 4 VIRAL INTESTINAL INFECTION, UNSPECIFIED 01/14/2017 WENDY SARMIENTO MD Ot E11. 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 W DIABETIC PERIPHERAL AN 01/14/2017 WENDY SARMIENTO MD Ot E78. 00 PURE HYPERCHOLESTEROLEMIA, UNSPECIFIED 01/14/2017 WENDY SARMIENTO MD Ot F17.210 NICOTINE DEPENDENCE, CIGARETTES, UNCOMPL 01/14/2017 WENDY SARMIENTO MD Ot F41. 9 ANXIETY DISORDER, UNSPECIFIED 01/14/2017 WENDY SARMIENTO MD Ot G47. 30 SLEEP APNEA, UNSPECIFIED 01/14/2017 WENDY SARMIENTO MD Ot I10 ESSENTIAL (PRIMARY) HYPERTENSION 01/14/2017 WENDY SARMIENTO MD Ot I25. 10 ATHSCL HEART DISEASE OF [place] CORONARY 01/14/2017 WENDY SARMIENTO MD Ot I25. 2 OLD MYOCARDIAL INFARCTION 01/14/2017 WENDY SARMIENTO MD Ot I48. 91 UNSPECIFIED ATRIAL FIBRILLATION 01/14/2017 WENDY SARMIENTO MD Ot I73. 9 PERIPHERAL VASCULAR DISEASE, UNSPECIFIED 01/14/2017 WENDY SARMIENTO MD Ot J44. 9 CHRONIC OBSTRUCTIVE PULMONARY DISEASE, U 01/14/2017 WENDY SARMIENTO MD Ot K21. 9 GASTRO-ESOPHAGEAL REFLUX DISEASE WITHOUT 01/14/2017 WENDY SARMIENTO MD Ot N40. 0 BENIGN PROSTATIC HYPERPLASIA WITHOUT LOW 01/14/2017 WENDY SARMIENTO MD Ot R53. 83 OTHER FATIGUE 01/14/2017 WENDY SARMIENTO MD Ot Z79. 4 SKILLED NURSING (CURRENT) USE OF INSULIN 01/14/2017 WENDY SARMIENTO MD Ot Z79. 82 SKILLED NURSING (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 01/14/2017 WENDY SARMIENTO MD Ot Z79. 84 SKILLED NURSING (CURRENT) USE OF ORAL HYPOGLYC 01/14/2017 WENDY SARMIENTO MD Ot Z82. 49 FAMILY HX OF ISCHEM HEART DIS AND OTH DI 01/14/2017 WENDY SARMIENTO MD Ot Z86.010 PERSONAL HISTORY OF COLONIC POLYPS 01/14/2017 WENDY SARMIENTO MD Ot Z86. 73 PRSNL HX OF TIA (TIA), AND CEREB INFRC W 01/14/2017 WENDY SARMIENTO MD Ot Z87. 19 PERSONAL HISTORY OF OTHER DISEASES OF TH 01/14/2017 WENDY SARMIENTO MD Ot Z95. 1 PRESENCE OF AORTOCORONARY BYPASS GRAFT 01/14/2017 WENDY SARMIENTO MD Ot Z95. 5 PRESENCE OF CORONARY ANGIOPLASTY IMPLANT 01/16/2017 WENDY SARMIENTO MD Ot A08. 4 VIRAL INTESTINAL INFECTION, UNSPECIFIED 01/16/2017 WENDY SARMIENTO MD Ot E11. 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 W DIABETIC PERIPHERAL AN 01/16/2017 WENDY SARMIENTO MD Ot E78. 00 PURE HYPERCHOLESTEROLEMIA, UNSPECIFIED 01/16/2017 WENDY SARMIENTO MD Ot F17.210 NICOTINE DEPENDENCE, CIGARETTES, UNCOMPL 01/16/2017 WENDY SARMIENTO MD Ot F41. 9 ANXIETY DISORDER, UNSPECIFIED 01/16/2017 WENDY SARMIENTO MD Ot G47. 30 SLEEP APNEA, UNSPECIFIED 01/16/2017 WENDY SARMIENTO MD Ot I10 ESSENTIAL (PRIMARY) HYPERTENSION 01/16/2017 WENDY SARMIENTO MD Ot I25. 10 ATHSCL HEART DISEASE OF [place] CORONARY 01/16/2017 WENDY SARMIENTO MD Ot I25. 2 OLD MYOCARDIAL INFARCTION 01/16/2017 WENDY SARMIENTO MD Ot I48. 91 UNSPECIFIED ATRIAL FIBRILLATION 01/16/2017 WENDY SARMIENTO MD Ot I73. 9 PERIPHERAL VASCULAR DISEASE, UNSPECIFIED 01/16/2017 WENDY SARMIENTO MD Ot J44. 9 CHRONIC OBSTRUCTIVE PULMONARY DISEASE, U 01/16/2017 WENDY SARMIENTO MD Ot K21. 9 GASTRO-ESOPHAGEAL REFLUX DISEASE WITHOUT 01/16/2017 WENDY SARMIENTO MD Ot N40. 0 BENIGN PROSTATIC HYPERPLASIA WITHOUT LOW 01/16/2017 WENDY SARMIENTO MD Ot R53. 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 84 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) USE OF ORAL HYPOGLYC 01/16/2017 WENDY SARMIENTO MD Ot Z82. 49 FAMILY HX OF ISCHEM HEART DIS AND OTH DI 01/16/2017 WENDY SARMIENTO MD Ot Z86.010 PERSONAL HISTORY OF COLONIC POLYPS 01/16/2017 WENDY SARMIENTO MD Ot Z86. 73 PRSNL HX OF TIA (TIA), AND CEREB INFRC W 01/16/2017 WENDY SARMIENTO MD Ot Z87. 19 PERSONAL HISTORY OF OTHER DISEASES OF TH 01/16/2017 WENDY SARMIENTO MD Ot Z95. 1 PRESENCE OF AORTOCORONARY BYPASS GRAFT 01/16/2017 WENDY SARMIENTO MD Ot Z95. 5 PRESENCE OF CORONARY ANGIOPLASTY IMPLANT 01/16/2017 WENDY SARMIENTO MD Ot A08. 4 VIRAL INTESTINAL INFECTION, UNSPECIFIED 01/16/2017 WENDY SARMIENTO MD Ot E11. 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 W DIABETIC PERIPHERAL AN 01/16/2017 WENDY SARMIENTO MD Ot E78. 00 PURE HYPERCHOLESTEROLEMIA, UNSPECIFIED 01/16/2017 WENDY SARMIENTO MD Ot F17.210 NICOTINE DEPENDENCE, CIGARETTES, UNCOMPL 01/16/2017 WENDY SARMIENTO MD Ot F41. 9 ANXIETY DISORDER, UNSPECIFIED 01/16/2017 WENDY SARMIENTO MD Ot G47. 30 SLEEP APNEA, UNSPECIFIED 01/16/2017 WENDY SARMIENTO MD Ot I10 ESSENTIAL (PRIMARY) HYPERTENSION 01/16/2017 WENDY SARMIENTO MD Ot I25. 10 ATHSCL HEART DISEASE OF [place] CORONARY 01/16/2017 WENDY SAMRIENTO MD Ot I25. 2 OLD MYOCARDIAL INFARCTION 01/16/2017 WENDY SARMIENTO MD Ot I48. 91 UNSPECIFIED ATRIAL FIBRILLATION 01/16/2017 WENDY SARMIENTO MD Ot I73. 9 PERIPHERAL VASCULAR DISEASE, UNSPECIFIED 01/16/2017 WENDY SARMIENTO MD Ot J44. 9 CHRONIC OBSTRUCTIVE PULMONARY DISEASE, U 01/16/2017 WENDY SARMIENTO MD Ot K21. 9 GASTRO-ESOPHAGEAL REFLUX DISEASE WITHOUT 01/16/2017 WENDY SARMIENTO MD Ot N40. 0 BENIGN PROSTATIC HYPERPLASIA WITHOUT LOW 01/16/2017 WENDY SARMIENTO MD Ot R53. 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 82 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 01/16/2017 WENDY SARMIENTO MD, Ot Z79. 84 SKILLED NURSING (CURRENT) USE OF ORAL HYPOGLYC 01/16/2017 WENDY SARMIENTO MD, Ot Z82. 49 FAMILY HX OF ISCHEM HEART DIS AND OTH DI 01/16/2017 WENDY SARMIENTO MD, Ot Z86.010 PERSONAL HISTORY OF COLONIC POLYPS 01/16/2017 WENDY SARMIENTO MD, Ot Z86. 73 PRSNL HX OF TIA (TIA), AND CEREB INFRC W 01/16/2017 WENDY SARMIENTO MD Ot Z87. 19 PERSONAL HISTORY OF OTHER DISEASES OF TH 01/16/2017 WENDY SARMIENTO MD, Ot Z95. 1 PRESENCE OF AORTOCORONARY BYPASS GRAFT 01/16/2017 WENDY SARMIENTO MD Ot Z95. 5 PRESENCE OF CORONARY ANGIOPLASTY IMPLANT 02/03/2017 JALIL DOUGHERTY, FAMILIA Pacheco Ot M79. 89 OTHER SPECIFIED SOFT TISSUE DISORDERS 02/06/2017 FAMILIA JIMENES MD Ot M79. 89 OTHER SPECIFIED SOFT TISSUE DISORDERS 02/06/2017 FAMILIA JIMENES MD Ot M79. 89 OTHER SPECIFIED SOFT TISSUE DISORDERS 02/07/2017 FAMILIA JIMENES MD Ot M79. 89 OTHER SPECIFIED SOFT TISSUE DISORDERS 02/09/2017 FAMILIA JIMENES MD Ot M79. 89 OTHER SPECIFIED SOFT TISSUE DISORDERS 02/19/2017 ROMAIN KNIGHT DO Ot E04.1 NONTOXIC SINGLE THYROID NODULE 02/19/2017 ROMAIN KNIGHT DO Ot E11.9 TYPE 2 DIABETES MELLITUS WITHOUT COMPLIC 02/19/2017 ROMAIN KNIGHT DO Ot F17.210 NICOTINE DEPENDENCE, CIGARETTES, UNCOMPL 02/19/2017 ROMAIN KNIGHT DO Ot G89.29 OTHER CHRONIC PAIN 02/19/2017 ROMAIN KNIGHT DO Ot I10 ESSENTIAL (PRIMARY) HYPERTENSION 02/19/2017 ROMAIN KNIGHT DO Ot I25.10 ATHSCL HEART DISEASE OF [place] CORONARY 02/19/2017 ROMAIN KNIGHT DO Ot I48.2 CHRONIC ATRIAL FIBRILLATION 02/19/2017 ROMAIN KNIGHT DO Ot M43.22 FUSION OF SPINE, CERVICAL REGION 02/19/2017 ROMAIN KNIGHT DO Ot M47.812 SPONDYLOSIS W/O MYELOPATHY OR RADICULOPA 02/19/2017 ROMAIN KNIGHT DO, Ot M47.814 SPONDYLOSIS W/O MYELOPATHY OR RADICULOPA 02/19/2017 ROMAIN KNIGHT DO Ot S19.9XX A UNSPECIFIED INJURY OF NECK, INITIAL ENCO 02/19/2017 ROMAIN KNIGHT DO Ot Z79.01 SKILLED NURSING (CURRENT) USE OF ANTICOAGULANT 02/19/2017 EUGENE RIVERA ROMAIN Suggs Ot Z79.82 SKILLED NURSING (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 02/19/2017 EUGENE DOGHANSHYAMGabe Suggs Ot Z79.899 OTHER SKILLED NURSING (CURRENT) DRUG THERAPY 02/19/2017 EUGENE RIVERA ROMAIN Suggs Ot 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 IMPLANT 03/18/2017 IRAJ HERRERA MD Ot M47.814 SPONDYLOSIS W/O MYELOPATHY OR RADICULOPA 03/18/2017 IRAJ HERRERA MD Ot M47.816 SPONDYLOSIS W/O MYELOPATHY OR RADICULOPA 03/18/2017 IRAJ HERRERA MD Ot M48.56XA COLLAPSED VERTEBRA, NEC, LUMBAR REGION, 03/18/2017 JENN CARBAJAL Ot E11.9 TYPE 2 DIABETES MELLITUS WITHOUT COMPLIC 03/18/2017 JENN CARBAJAL Ot F41.9 ANXIETY DISORDER, UNSPECIFIED 03/18/2017 JENN CARBAJAL Ot I 10 ESSENTIAL (PRIMARY) HYPERTENSION 03/18/2017 JENN CARBAJAL Ot I25.10 ATHSCL HEART DISEASE OF [place] CORONARY 03/18/2017 JENN CARBAJAL Ot I25.2 OLD MYOCARDIAL INFARCTION 03/18/2017 JENN CARBAJAL Ot I48.91 UNSPECIFIED ATRIAL FIBRILLATION 03/18/2017 JENN CARBAJAL Ot J44.9 CHRONIC OBSTRUCTIVE PULMONARY DISEASE, U 03/18/2017 JENN CARBAJAL Ot K21.9 GASTRO-ESOPHAGEAL REFLUX DISEASE WITHOUT 03/18/2017 JENN CARBAJAL Ot M47.9 SPONDYLOSIS, UNSPECIFIED 03/18/2017 JENN CARBAJAL Ot M54.6 PAIN IN THORACIC SPINE 03/18/2017 JENN CARBAJAL Ot S29.012A STRAIN OF MUSCLE AND TENDON OF BACK WALL 03/18/2017 JENN CARBAJAL Ot X58.XXXA EXPOSURE TO OTHER SPECIFIED FACTORS, INI 03/18/2017 JENN CARBAJAL Ot Z79.4 SKILLED NURSING (CURRENT) USE OF INSULIN 03/18/2017 JENN CARBAJAL Ot 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 03/18/2017 JENN CARBAJAL Ot Z86.73 PRSNL HX OF TIA (TIA), AND CEREB INFRC W 03/18/2017 JENN CARBAJAL Ot Z87.891 PERSONAL HISTORY OF NICOTINE DEPENDENCE 03/18/2017 JENN CARBAJAL Ot Z95.1 PRESENCE OF AORTOCORONARY BYPASS GRAFT 03/18/2017 JENN CARBAJAL Ot 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 IMPLANT 03/20/2017 JENN CARBAJAL Ot E11.9 TYPE 2 DIABETES MELLITUS WITHOUT COMPLIC 03/20/2017 JENN CARBAJAL Ot F41.9 ANXIETY DISORDER, UNSPECIFIED 03/20/2017 JENN CARBAJAL Ot I 10 ESSENTIAL (PRIMARY) HYPERTENSION 03/20/2017 JENN CARBAJAL Ot I25.10 ATHSCL HEART DISEASE OF [place] CORONARY 03/20/2017 JENN CARBAJAL Ot I25.2 OLD MYOCARDIAL INFARCTION 03/20/2017 JENN CARBAJAL Ot I48.91 UNSPECIFIED ATRIAL FIBRILLATION 03/20/2017 JENN CARBAJAL Ot J44.9 CHRONIC OBSTRUCTIVE PULMONARY DISEASE, U 03/20/2017 JENN CARBAJAL Ot K21.9 GASTRO-ESOPHAGEAL REFLUX DISEASE WITHOUT 03/20/2017 JENN CARBAJAL Ot M47.9 SPONDYLOSIS, UNSPECIFIED 03/20/2017 JENN CARBAJAL Ot M54.6 PAIN IN THORACIC SPINE 03/20/2017 JENN CARBAJAL Ot S29.012A STRAIN OF MUSCLE AND TENDON OF BACK WALL 03/20/2017 JENN CARBAJAL Ot X58.XXXA EXPOSURE TO OTHER SPECIFIED FACTORS, INI 03/20/2017 JENN CARBAJAL Ot Z79.4 SKILLED NURSING (CURRENT) USE OF INSULIN 03/20/2017 JENN CARBAJAL Ot Z79.82 SKILLED NURSING (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 03/20/2017 JENN CARBAJAL Ot Z86.73 PRSNL HX OF TIA (TIA), AND CEREB INFRC W 03/20/2017 JENN CARBAJAL Ot Z87.891 PERSONAL HISTORY OF NICOTINE DEPENDENCE 03/20/2017 JENN CARBAJAL Ot Z95.1 PRESENCE OF AORTOCORONARY BYPASS GRAFT 03/20/2017 JENN CARBAJAL Ot 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 IMPLANT 03/24/2017 JENN CARBAJAL Ot E11.9 TYPE 2 DIABETES MELLITUS WITHOUT COMPLIC 03/24/2017 JENN CARBAJAL Ot F41.9 ANXIETY DISORDER, UNSPECIFIED 03/24/2017 JENN CARBAJAL Ot I 10 ESSENTIAL (PRIMARY) HYPERTENSION 03/24/2017 JENN CARBAJAL Ot I25.10 ATHSCL HEART DISEASE OF [place] CORONARY 03/24/2017 JENN CARBAJAL Ot I25.2 OLD MYOCARDIAL INFARCTION 03/24/2017 JENN CARBAJAL Ot I48.91 UNSPECIFIED ATRIAL FIBRILLATION 03/24/2017 JENN CARBAJAL Ot J44.9 CHRONIC OBSTRUCTIVE PULMONARY DISEASE, U 03/24/2017 JENN CARBAJAL Ot K21.9 GASTRO-ESOPHAGEAL REFLUX DISEASE WITHOUT 03/24/2017 JENN CARBAJAL Ot M47.9 SPONDYLOSIS, UNSPECIFIED 03/24/2017 JENN CARBAJAL Ot M54.6 PAIN IN THORACIC SPINE 03/24/2017 JENN CARBAJAL Ot S29.012A STRAIN OF MUSCLE AND TENDON OF BACK WALL 03/24/2017 JENN CARBAJAL Ot X58.XXXA EXPOSURE TO OTHER SPECIFIED FACTORS, INI 03/24/2017 JENN CARBAJAL Ot Z79.4 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) USE OF INSULIN 03/24/2017 JENN CARBAJAL Ot 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 03/24/2017 JENN CARBAJAL Ot Z86.73 PRSNL HX OF TIA (TIA), AND CEREB INFRC W 03/24/2017 JENN CARBAJAL Ot Z87.891 PERSONAL HISTORY OF NICOTINE DEPENDENCE 03/24/2017 JENN CARBAJAL Ot Z95.1 PRESENCE OF AORTOCORONARY BYPASS GRAFT 03/24/2017 JENN CARBAJAL Ot 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 IMPLANT 04/03/2017 IRAJ HERRERA MD Ot M47.814 SPONDYLOSIS W/O MYELOPATHY OR RADICULOPA 04/03/2017 IRAJ HERRERA MD Ot M47.816 SPONDYLOSIS W/O MYELOPATHY OR RADICULOPA 04/03/2017 IRAJ HERRERA MD Ot M48.56XA COLLAPSED VERTEBRA, NEC, LUMBAR REGION, 2017 IRAJ HERRERA MD Ot M47.814 SPONDYLOSIS W/O MYELOPATHY OR RADICULOPA 2017 IRAJ HERRERA MD Ot M47.816 SPONDYLOSIS W/O MYELOPATHY OR RADICULOPA 2017 IRAJ HERRERA MD, Ot M48.56XA COLLAPSED VERTEBRA, NEC, LUMBAR REGION, 04/23/2017 WENDY SARMIENTO MD Ot E11. 9 TYPE 2 DIABETES MELLITUS WITHOUT COMPLIC 04/23/2017 WENDY SARMIENTO MD Ot E78. 00 PURE HYPERCHOLESTEROLEMIA, UNSPECIFIED 04/23/2017 WENDY SARMIENTO MD Ot F41. 9 ANXIETY DISORDER, UNSPECIFIED 04/23/2017 WENDY SARMIENTO MD Ot G47. 30 SLEEP APNEA, UNSPECIFIED 04/23/2017 WENDY SARMIENTO MD Ot I10 ESSENTIAL (PRIMARY) HYPERTENSION 04/23/2017 WENDY SARMIENTO MD Ot I25. 10 ATHSCL HEART DISEASE OF [place] CORONARY 04/23/2017 WENDY SARMIENTO MD Ot I25. 2 OLD MYOCARDIAL INFARCTION 04/23/2017 WENDY SARMIENTO MD Ot I48. 0 PAROXYSMAL ATRIAL FIBRILLATION 04/23/2017 WENDY SARMIENTO MD Ot I73. 9 PERIPHERAL VASCULAR DISEASE, UNSPECIFIED 04/23/2017 WENDY SARMIENTO MD Ot J44. 9 CHRONIC OBSTRUCTIVE PULMONARY DISEASE, U 04/23/2017 WENDY SARMIENTO MD Ot K21. 9 GASTRO-ESOPHAGEAL REFLUX DISEASE WITHOUT 04/23/2017 WENDY SARMIENTO MD Ot N40. 0 BENIGN PROSTATIC HYPERPLASIA WITHOUT LOW 04/23/2017 WENDY SARMIENTO MD Ot R03. 0 ELEVATED BLOOD-PRESSURE READING, W/O CASTRO 04/23/2017 WENDY SARMIENTO MD Ot Z79. 01 SKILLED NURSING (CURRENT) USE OF ANTICOAGULANT 04/23/2017 WENDY SARMIENTO MD Ot Z79. 4 SKILLED NURSING (CURRENT) USE OF INSULIN 04/23/2017 WENDY SARMIENTO MD Ot Z79. 82 SKILLED NURSING (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 04/23/2017 WENDY SARMIENTO MD Ot Z79.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 04/23/2017 WENDY SARMIENTO MD Ot Z82. 49 FAMILY HX OF ISCHEM HEART DIS AND OTH DI 04/23/2017 WENDY SARMIENTO MD Ot Z86.010 PERSONAL HISTORY OF COLONIC POLYPS 04/23/2017 WENDY SARMIENTO MD Ot Z86. 73 PRSNL HX OF TIA (TIA), AND CEREB INFRC W 04/23/2017 WENDY SARMIENTO MD Ot Z87. 19 PERSONAL HISTORY OF OTHER DISEASES OF TH 04/23/2017 WENDY SARMIENTO MD Ot Z87.891 PERSONAL HISTORY OF NICOTINE DEPENDENCE 04/23/2017 WENDY SARMIENTO MD Ot Z95. 1 PRESENCE OF AORTOCORONARY BYPASS GRAFT 04/23/2017 WENDY SARMIENTO MD Ot Z95. 5 PRESENCE OF CORONARY ANGIOPLASTY IMPLANT 04/30/2017 WENDY SARMIENTO MD Ot E11. 9 TYPE 2 DIABETES MELLITUS WITHOUT COMPLIC 04/30/2017 WENDY SARMIENTO MD Ot E78. 00 PURE HYPERCHOLESTEROLEMIA, UNSPECIFIED 04/30/2017 WENDY SARMIENTO MD Ot F41. 9 ANXIETY DISORDER, UNSPECIFIED 04/30/2017 WENDY SARMIENTO MD Ot G47. 30 SLEEP APNEA, UNSPECIFIED 04/30/2017 WENDY SARMIENTO MD Ot I10 ESSENTIAL (PRIMARY) HYPERTENSION 04/30/2017 WENDY SARMIENTO MD Ot I25. 10 ATHSCL HEART DISEASE OF [place] CORONARY 04/30/2017 WENDY SARMIENTO MD Ot I25. 2 OLD MYOCARDIAL INFARCTION 04/30/2017 WENDY SARMIENTO MD Ot I48. 0 PAROXYSMAL ATRIAL FIBRILLATION 04/30/2017 WENDY SARMIENTO MD Ot I73. 9 PERIPHERAL VASCULAR DISEASE, UNSPECIFIED 04/30/2017 WENDY SARMIENTO MD Ot J44. 9 CHRONIC OBSTRUCTIVE PULMONARY DISEASE, U 04/30/2017 WENDY SARMIENTO MD Ot K21. 9 GASTRO-ESOPHAGEAL REFLUX DISEASE WITHOUT 04/30/2017 WENDY SARMIENTO MD Ot N40. 0 BENIGN PROSTATIC HYPERPLASIA WITHOUT LOW 04/30/2017 WENDY SARMIENTO MD, Ot R03. 0 ELEVATED BLOOD-PRESSURE READING, W/O CASTRO 04/30/2017 WENDY SARMIENTO MD, Ot Z79. 01 SKILLED NURSING (CURRENT) USE OF ANTICOAGULANT 04/30/2017 WENDY SARMIENTO MD, Ot Z79. 4 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) USE OF INSULIN 04/30/2017 WENDY SARMIENTO MD, Ot Z79. 82 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 04/30/2017 WENDY SARMIENTO MD, Ot Z79.899 OTHER SKILLED NURSING (CURRENT) DRUG THERAPY 04/30/2017 WENDY SARMIENTO MD, Ot Z82. 49 FAMILY HX OF ISCHEM HEART DIS AND OTH DI 04/30/2017 WENDY SARMIENTO MD, Ot Z86.010 PERSONAL HISTORY OF COLONIC POLYPS 04/30/2017 WENDY SARMIENTO MD, Ot Z86. 73 PRSNL HX OF TIA (TIA), AND CEREB INFRC W 04/30/2017 WENDY SARMIENTO MD, Ot Z87. 19 PERSONAL HISTORY OF OTHER DISEASES OF TH 04/30/2017 WENDY SARMIENTO MD, Ot Z87.891 PERSONAL HISTORY OF NICOTINE DEPENDENCE 04/30/2017 WENDY SARMIENTO MD, Ot Z95. 1 PRESENCE OF AORTOCORONARY BYPASS GRAFT 04/30/2017 WENDY SARMIENTO MD, Ot Z95. 5 PRESENCE OF CORONARY ANGIOPLASTY IMPLANT 06/21/2017 RODOLFO CUELLO MD Ot E11.9 TYPE 2 DIABETES MELLITUS WITHOUT COMPLIC 06/21/2017 RODOLFO CUELLO MD, Ot F41.9 ANXIETY DISORDER, UNSPECIFIED 06/21/2017 RODOLFO CUELLO MD Ot G47.30 SLEEP APNEA, UNSPECIFIED 06/21/2017 RODOLFO CUELLO MD Ot I10 ESSENTIAL (PRIMARY) HYPERTENSION 06/21/2017 RODOLFO CUELLO MD, Ot I25.10 ATHSCL HEART DISEASE OF [place] CORONARY 06/21/2017 RODOLFO CUELLO MD, Ot I25.2 OLD MYOCARDIAL INFARCTION 06/21/2017 RODOLFO CUELLO MD, Ot I48.91 UNSPECIFIED ATRIAL FIBRILLATION 06/21/2017 RODOLFO CUELLO MD, Ot I73.9 PERIPHERAL VASCULAR DISEASE, UNSPECIFIED 06/21/2017 RODOLFO CUELLO MD, Ot J44.9 CHRONIC OBSTRUCTIVE PULMONARY DISEASE, U 06/21/2017 RODOLFO CUELLO MD, Ot K21.9 GASTRO-ESOPHAGEAL REFLUX DISEASE WITHOUT 06/21/2017 RODOLFO CUELLO MD, Ot M54.2 CERVICALGIA 06/21/2017 RODOLFO CUELLO MD, Ot N40.0 BENIGN PROSTATIC HYPERPLASIA WITHOUT LOW 06/21/2017 RODOLFO CUELLO MD, Ot S00.83XA CONTUSION OF OTHER PART OF HEAD, INITIAL 06/21/2017 RODOLFO CUELLO MD, Ot W01.198A FALL SAME LEV FROM SLIP/TRIP W STRIKE AG 06/21/2017 RODOLFO CUELLO MD, Ot Z77.22 CNTCT W AND EXPSR TO ENVIRON TOBACCO SMO 06/21/2017 RODOLFO CUELLO MD, Ot 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 06/21/2017 RODOLFO CUELLO MD, Ot Z79.4 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) USE OF INSULIN 06/21/2017 RODOLFO CUELLO MD, Ot Z79.52 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) USE OF SYSTEMIC STER 06/21/2017 RODOLFO CUELLO MD, Ot Z82.49 FAMILY HX OF ISCHEM HEART DIS AND OTH DI 06/21/2017 RODOLFO CUELLO MD, Ot Z86.010 PERSONAL HISTORY OF COLONIC POLYPS 06/21/2017 RODOLFO CUELLO MD, Ot Z86.73 PRSNL HX OF TIA (TIA), AND CEREB INFRC W 06/21/2017 RODOLFO CUELLO MD, Ot Z87.19 PERSONAL HISTORY OF OTHER DISEASES OF TH 06/21/2017 RODOLFO CUELLO MD, Ot Z88.0 ALLERGY STATUS TO PENICILLIN 06/21/2017 RODOLFO CUELLO MD, Ot Z88.1 ALLERGY STATUS TO OTHER ANTIBIOTIC AGENT 06/21/2017 RODOLFO CUELLO MD, Ot Z88.5 ALLERGY STATUS TO NARCOTIC AGENT STATUS 06/21/2017 RODOLFO CUELLO MD, Ot Z88.8 ALLERGY STATUS TO OTH DRUG/MEDS/BIOL SUB 06/21/2017 RODOLFO CUELLO MD, Ot Z95.1 PRESENCE OF AORTOCORONARY BYPASS GRAFT 06/21/2017 RODOLFO CUELLO MD, Ot 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 IMPLANT 06/25/2017 RODOLFO CUELLO MD Ot E11.9 TYPE 2 DIABETES MELLITUS WITHOUT COMPLIC 06/25/2017 RODOLFO CUELLO MD, Ot F41.9 ANXIETY DISORDER, UNSPECIFIED 06/25/2017 RODOLFO CUELLO MD, Ot G47.30 SLEEP APNEA, UNSPECIFIED 06/25/2017 RODOLFO CUELLO MD, Ot I10 ESSENTIAL (PRIMARY) HYPERTENSION 06/25/2017 RODOLFO CUELLO MD, Ot I25.10 ATHSCL HEART DISEASE OF [place] CORONARY 06/25/2017 RODOLFO CUELLO MD, Ot I25.2 OLD MYOCARDIAL INFARCTION 06/25/2017 RODOLFO CUELLO MD, Ot I48.91 UNSPECIFIED ATRIAL FIBRILLATION 06/25/2017 RODOLFO CUELLO MD, Ot I73.9 PERIPHERAL VASCULAR DISEASE, UNSPECIFIED 06/25/2017 RODOLFO CUELLO MD, Ot J44.9 CHRONIC OBSTRUCTIVE PULMONARY DISEASE, U 06/25/2017 RODOLFO CUELLO MD, Ot K21.9 GASTRO-ESOPHAGEAL REFLUX DISEASE WITHOUT 06/25/2017 RODOLFO CUELLO MD, Ot M54.2 CERVICALGIA 06/25/2017 RODOLFO CUELLO MD, Ot N40.0 BENIGN PROSTATIC HYPERPLASIA WITHOUT LOW 06/25/2017 RODOLFO CUELLO MD, Ot S00.83XA CONTUSION OF OTHER PART OF HEAD, INITIAL 06/25/2017 RODOLFO CUELLO MD, Ot W01.198A FALL SAME LEV FROM SLIP/TRIP W STRIKE AG 06/25/2017 RODOLFO CUELLO MD, Ot Z77.22 CNTCT W AND EXPSR TO ENVIRON TOBACCO SMO 06/25/2017 RODOLFO CUELLO MD, Ot Z79.01 SKILLED NURSING (CURRENT) USE OF ANTICOAGULANT 06/25/2017 RODOLFO CUELLO MD, Ot Z79.4 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) USE OF INSULIN 06/25/2017 RODOLFO CUELLO MD, Ot Z79.52 SKILLED NURSING (CURRENT) USE OF SYSTEMIC STER 06/25/2017 RODOLFO CUELLO MD Ot Z82.49 FAMILY HX OF ISCHEM HEART DIS AND OTH DI 06/25/2017 RODOLFO CUELLO MD, Ot Z86.010 PERSONAL HISTORY OF COLONIC POLYPS 06/25/2017 RODOLFO CUELLO MD, Ot Z86.73 PRSNL HX OF TIA (TIA), AND CEREB INFRC W 06/25/2017 RODOLFO CUELLO MD, Ot Z87.19 PERSONAL HISTORY OF OTHER DISEASES OF TH 06/25/2017 RODOLFO CUELLO MD Ot Z88.0 ALLERGY STATUS TO PENICILLIN 06/25/2017 RODOLFO CUELLO MD Ot Z88.1 ALLERGY STATUS TO OTHER ANTIBIOTIC AGENT 06/25/2017 RODOLFO CUELLO MD, Ot Z88.5 ALLERGY STATUS TO NARCOTIC AGENT STATUS 06/25/2017 RODOLFO CUELLO MD Ot Z88.8 ALLERGY STATUS TO [facility] DRUG/MEDS/BIOL SUB 06/25/2017 RODOLFO CUELLO MD Ot Z95.1 PRESENCE OF AORTOCORONARY BYPASS GRAFT 06/25/2017 RODOLFO CUELLO MD Ot 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 IMPLANT 06/27/2017 RODOLFO CUELLO MD Ot E11.9 TYPE 2 DIABETES MELLITUS WITHOUT COMPLIC 06/27/2017 RODOLFO CUELLO MD, Ot F41.9 ANXIETY DISORDER, UNSPECIFIED 06/27/2017 RODOLFO CUELLO MD Ot G47.30 SLEEP APNEA, UNSPECIFIED 06/27/2017 RODOLFO CUELLO MD Ot I10 ESSENTIAL (PRIMARY) HYPERTENSION 06/27/2017 RODOLFO CUELLO MD, Ot I25.10 ATHSCL HEART DISEASE OF [place] CORONARY 06/27/2017 RODOLFO CUELLO MD, Ot I25.2 OLD MYOCARDIAL INFARCTION 06/27/2017 RODOLFO CUELLO MD Ot I48.91 UNSPECIFIED ATRIAL FIBRILLATION 06/27/2017 RODOLFO CUELLO MD Ot I73.9 PERIPHERAL VASCULAR DISEASE, UNSPECIFIED 06/27/2017 RODOLFO CUELLO MD, Ot J44.9 CHRONIC OBSTRUCTIVE PULMONARY DISEASE, U 06/27/2017 RODOLFO CUELLO MD, Ot K21.9 GASTRO-ESOPHAGEAL REFLUX DISEASE WITHOUT 06/27/2017 RODOLFO CUELLO MD, Ot M54.2 CERVICALGIA 06/27/2017 RODOLFO CUELLO MD, Ot N40.0 BENIGN PROSTATIC HYPERPLASIA WITHOUT LOW 06/27/2017 RODOLFO CUELLO MD, Ot S00.83XA CONTUSION OF OTHER PART OF HEAD, INITIAL 06/27/2017 RODOLFO CUELLO MD, Ot W01.198A FALL SAME LEV FROM SLIP/TRIP W STRIKE AG 06/27/2017 RODOLFO CUELLO MD, Ot Z77.22 CNTCT W AND EXPSR TO ENVIRON TOBACCO SMO 06/27/2017 RODOLFO CUELLO MD, Ot 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 06/27/2017 RODOLFO CUELLO MD, Ot Z79.4 SKILLED NURSING (CURRENT) USE OF INSULIN 06/27/2017 RODOLFO CUELLO MD, Ot Z79.52 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) USE OF SYSTEMIC STER 06/27/2017 RODOLFO CUELLO MD, Ot Z82.49 FAMILY HX OF ISCHEM HEART DIS AND OTH DI 06/27/2017 RODOLFO CUELLO MD, Ot Z86.010 PERSONAL HISTORY OF COLONIC POLYPS 06/27/2017 RODOLFO CUELLO MD, Ot Z86.73 PRSNL HX OF TIA (TIA), AND CEREB INFRC W 06/27/2017 RODOLFO CUELLO MD, Ot Z87.19 PERSONAL HISTORY OF OTHER DISEASES OF TH 06/27/2017 RODOLFO CUELLO MD, Ot Z88.0 ALLERGY STATUS TO PENICILLIN 06/27/2017 RODOLFO CUELLO MD, Ot Z88.1 ALLERGY STATUS TO OTHER ANTIBIOTIC AGENT 06/27/2017 RODOLFO CUELLO MD, Ot Z88.5 ALLERGY STATUS TO NARCOTIC AGENT STATUS 06/27/2017 RODOLFO CUELLO MD, Ot Z88.8 ALLERGY STATUS TO OTH DRUG/MEDS/BIOL SUB 06/27/2017 KHUSHBOO DOUGHERTY, RODOLFO Mendieta Ot Z95.1 PRESENCE OF AORTOCORONARY BYPASS GRAFT 06/27/2017 KHUSHBOO DOUGHERTY, RODOLFO Mendieta Ot 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 IMPLANT 07/15/2017 MARY MENDEZP Ot 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 07/15/2017 MARY MENDEZP Ot E78.00 PURE HYPERCHOLESTEROLEMIA, UNSPECIFIED 07/15/2017 VANESSAMARY Spears THEATRE MANAGER Ot F41.9 ANXIETY DISORDER, UNSPECIFIED 07/15/2017 VANESSA, MARY THEATRE MANAGER Ot G47.30 SLEEP APNEA, UNSPECIFIED 07/15/2017 MARY MENDEZ THEATRE MANAGER Ot I10 ESSENTIAL (PRIMARY) HYPERTENSION 07/15/2017 MARY MENDEZ THEATRE MANAGER Ot I25.10 ATHSCL HEART DISEASE OF [place] CORONARY 07/15/2017 MARY MENDEZ THEATRE MANAGER Ot I25.2 OLD MYOCARDIAL INFARCTION 07/15/2017 MARY MENDEZ THEATRE MANAGER Ot I48.91 UNSPECIFIED ATRIAL FIBRILLATION 07/15/2017 MARY MENDEZ THEATRE MANAGER Ot I73.9 PERIPHERAL VASCULAR DISEASE, UNSPECIFIED 07/15/2017 VANESSA, MARY THEATRE MANAGER Ot J44.9 CHRONIC OBSTRUCTIVE PULMONARY DISEASE, U 07/15/2017 MARY MENDEZ THEATRE MANAGER Ot K21.9 GASTRO-ESOPHAGEAL REFLUX DISEASE WITHOUT 07/15/2017 VANESSA MARY THEATRE MANAGER Ot R05 COUGH 07/15/2017 VANESSA MARY THEATRE MANAGER Ot 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 07/15/2017 MARY MENDEZ THEATRE MANAGER Ot 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.4 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) USE OF 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 07/15/2017 MARY MENDEZ THEATRE MANAGER Ot Z79.52 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) USE OF SYSTEMIC STER 07/15/2017 MARY MENDEZ THEATRE MANAGER Ot Z82.49 FAMILY HX OF ISCHEM HEART DIS AND OTH DI 07/15/2017 MARY MENDEZ THEATRE MANAGER Ot Z86.010 PERSONAL HISTORY OF COLONIC POLYPS 07/15/2017 MARY MENDEZ THEATRE MANAGER Ot Z86.73 PRSNL HX OF TIA (TIA), AND CEREB INFRC W 07/15/2017 MARY MENDEZ THEATRE MANAGER Ot Z87.19 PERSONAL HISTORY OF OTHER DISEASES OF TH 07/15/2017 MARY MENDEZ THEATRE MANAGER Ot Z87.891 PERSONAL HISTORY OF NICOTINE DEPENDENCE 07/15/2017 VANESSAMARY SpearsP Ot Z88.0 ALLERGY STATUS TO PENICILLIN 07/15/2017 VANESSAMARY SpearsP Ot Z88.1 ALLERGY STATUS TO OTHER ANTIBIOTIC AGENT 07/15/2017 VANESSAMARY Spears THEATRE MANAGER Ot Z88.5 ALLERGY STATUS TO NARCOTIC AGENT STATUS 07/15/2017 VANESSAMARY Spears THEATRE MANAGER Ot Z88.8 ALLERGY STATUS TO OT DRUG/MEDS/BIOL SUB 07/15/2017 VANESSAMARY Spears THEATRE MANAGER Ot Z95.1 PRESENCE OF AORTOCORONARY BYPASS GRAFT 07/15/2017 VANESSAMARY SpearsP Ot 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 IMPLANT 07/17/2017 VANESSAMARY SpearsP Ot 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 07/17/2017 VANESSAMARY SpearsP Ot E78.00 PURE HYPERCHOLESTEROLEMIA, UNSPECIFIED 07/17/2017 VANESSAMARY Spears THEATRE MANAGER Ot F41.9 ANXIETY DISORDER, UNSPECIFIED 07/17/2017 VANESSAMARY Spears THEATRE MANAGER Ot G47.30 SLEEP APNEA, UNSPECIFIED 07/17/2017 VANESSAMARY Spears THEATRE MANAGER Ot I10 ESSENTIAL (PRIMARY) HYPERTENSION 07/17/2017 VANESSAMARY Spears THEATRE MANAGER Ot I25.10 ATHSCL HEART DISEASE OF [place] CORONARY 07/17/2017 VANESSAMARY Spears THEATRE MANAGER Ot I25.2 OLD MYOCARDIAL INFARCTION 07/17/2017 MARY MENDEZ THEATRE MANAGER Ot I48.91 UNSPECIFIED ATRIAL FIBRILLATION 07/17/2017 VANESSAMARY Spears THEATRE MANAGER Ot I73.9 PERIPHERAL VASCULAR DISEASE, UNSPECIFIED 07/17/2017 MARY MENDEZ THEATRE MANAGER Ot J44.9 CHRONIC OBSTRUCTIVE PULMONARY DISEASE, U 07/17/2017 VANESSAMARY Spears THEATRE MANAGER Ot K21.9 GASTRO-ESOPHAGEAL REFLUX DISEASE WITHOUT 07/17/2017 VANESSAMARY Spears THEATRE MANAGER Ot R05 COUGH 07/17/2017 VANESSAMARY Spears THEATRE MANAGER Ot Z79.01 SKILLED NURSING (CURRENT) USE OF ANTICOAGULANT 07/17/2017 MARY MENDEZP Ot Z79.4 SKILLED NURSING (CURRENT) USE OF INSULIN 07/17/2017 MARY MENDEZ THEATRE MANAGER Ot Z79.52 SKILLED NURSING (CURRENT) USE OF SYSTEMIC STER 07/17/2017 MARY MENDEZ THEATRE MANAGER Ot Z82.49 FAMILY HX OF ISCHEM HEART DIS AND OTH DI 07/17/2017 MARY MENDEZ THEATRE MANAGER Ot Z86.010 PERSONAL HISTORY OF COLONIC POLYPS 07/17/2017 VANESSAMARY Spears THEATRE MANAGER Ot Z86.73 PRSNL HX OF TIA (TIA), AND CEREB INFRC W 07/17/2017 VANESSAMARY SpearsP Ot Z87.19 PERSONAL HISTORY OF OTHER DISEASES OF TH 07/17/2017 VANESSAMARY Spears THEATRE MANAGER Ot Z87.891 PERSONAL HISTORY OF NICOTINE DEPENDENCE 07/17/2017 VANESSAMARY Spears THEATRE MANAGER Ot Z88.0 ALLERGY STATUS TO PENICILLIN 07/17/2017 VANESSA, MARY THEATRE MANAGER Ot Z88.1 ALLERGY STATUS TO OTHER ANTIBIOTIC AGENT 07/17/2017 VANESSA, MARY THEATRE MANAGER Ot Z88.5 ALLERGY STATUS TO NARCOTIC AGENT STATUS 07/17/2017 VANESSAMARY Spears THEATRE MANAGER Ot Z88.8 ALLERGY STATUS TO [facility] DRUG/MEDS/BIOL SUB 07/17/2017 VANESSAMARY Spears THEATRE MANAGER Ot Z95.1 PRESENCE OF AORTOCORONARY BYPASS GRAFT 07/17/2017 MARY MENDEZP Ot 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 IMPLANT 07/17/2017 MARY MENDEZ THEATRE MANAGER Ot 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 07/17/2017 VANESSA, MARY THEATRE MANAGER Ot E78.00 PURE HYPERCHOLESTEROLEMIA, UNSPECIFIED 07/17/2017 VANESSA MARY THEATRE MANAGER Ot F41.9 ANXIETY DISORDER, UNSPECIFIED 07/17/2017 VANESSA MARY THEATRE MANAGER Ot G47.30 SLEEP APNEA, UNSPECIFIED 07/17/2017 VANESSA MARY THEATRE MANAGER Ot I10 ESSENTIAL (PRIMARY) HYPERTENSION 07/17/2017 MARY MENDEZ THEATRE MANAGER Ot I25.10 ATHSCL HEART DISEASE OF [place] CORONARY 07/17/2017 MARY MENDEZ THEATRE MANAGER Ot I25.2 OLD MYOCARDIAL INFARCTION 07/17/2017 VANESSA MARY THEATRE MANAGER Ot I48.91 UNSPECIFIED ATRIAL FIBRILLATION 07/17/2017 VANESSA MARY THEATRE MANAGER Ot I73.9 PERIPHERAL VASCULAR DISEASE, UNSPECIFIED 07/17/2017 MARY MENDEZ THEATRE MANAGER Ot J44.9 CHRONIC OBSTRUCTIVE PULMONARY DISEASE, U 07/17/2017 MARY MENDEZ THEATRE MANAGER Ot K21.9 GASTRO-ESOPHAGEAL REFLUX DISEASE WITHOUT 07/17/2017 VANESSA MARY THEATRE MANAGER Ot R05 COUGH 07/17/2017 MARY MENDEZ THEATRE MANAGER Ot 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 07/17/2017 VANESSAMARY Spears THEATRE MANAGER Ot Z79.4 SKILLED NURSING (CURRENT) USE OF INSULIN 07/17/2017 VANESSAMARY SpearsP Ot Z79.52 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) USE OF SYSTEMIC STER 07/17/2017 VANESSAMARY Spears THEATRE MANAGER Ot Z82.49 FAMILY HX OF ISCHEM HEART DIS AND OTH DI 07/17/2017 VANESSAMARY SpearsP Ot Z86.010 PERSONAL HISTORY OF COLONIC POLYPS 07/17/2017 VANESSAMARY SpearsP Ot Z86.73 PRSNL HX OF TIA (TIA), AND CEREB INFRC W 07/17/2017 VANESSAMARY SpearsP Ot Z87.19 PERSONAL HISTORY OF OTHER DISEASES OF TH 07/17/2017 VANESSAMARY SpearsP Ot Z87.891 PERSONAL HISTORY OF NICOTINE DEPENDENCE 07/17/2017 VANESSAMARY Spears THEATRE MANAGER Ot Z88.0 ALLERGY STATUS TO PENICILLIN 07/17/2017 MARY MENDEZ THEATRE MANAGER Ot Z88.1 ALLERGY STATUS TO OTHER ANTIBIOTIC AGENT 07/17/2017 MAYR MENDEZP Ot Z88.5 ALLERGY STATUS TO NARCOTIC AGENT STATUS 07/17/2017 VANESSAMARY Spears THEATRE MANAGER Ot Z88.8 ALLERGY STATUS TO OT DRUG/MEDS/BIOL SUB 07/17/2017 VANESSAMARY SpearsP Ot Z95.1 PRESENCE OF AORTOCORONARY BYPASS GRAFT 07/17/2017 MARY MENDEZP Ot 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 IMPLANT 07/19/2017 EUGENE RIVERA ROMAIN K Ot E11.9 TYPE 2 DIABETES MELLITUS WITHOUT COMPLIC 07/19/2017 EUGENE RIVERA ROMAIN K Ot E78.00 PURE HYPERCHOLESTEROLEMIA, UNSPECIFIED 07/19/2017 EUGENE RIVERA ROMAIN K Ot F41.9 ANXIETY DISORDER, UNSPECIFIED 07/19/2017 EUGENE RIVERA ROMAIN K Ot G47.30 SLEEP APNEA, UNSPECIFIED 07/19/2017 EUGENE RIVERA ROMAIN K Ot I10 ESSENTIAL (PRIMARY) HYPERTENSION 07/19/2017 EUGENE RIVERA ROMAIN K Ot I25.10 ATHSCL HEART DISEASE OF [place] CORONARY 07/19/2017 EUGENE RIVERA ROMAIN K Ot I25.2 OLD MYOCARDIAL INFARCTION 07/19/2017 EUGENE RIVERA ROMAIN K Ot I48.91 UNSPECIFIED ATRIAL FIBRILLATION 07/19/2017 EUGENE RIVERA ROMAIN K Ot I73.9 PERIPHERAL VASCULAR DISEASE, UNSPECIFIED 07/19/2017 EUGENE ROMAIN Ot J44.9 CHRONIC OBSTRUCTIVE PULMONARY DISEASE, U 07/19/2017 ROMAIN KNIGHT DO Ot K21.9 GASTRO-ESOPHAGEAL REFLUX DISEASE WITHOUT 07/19/2017 ROMAIN KNIGHT DO Ot R07.89 OTHER CHEST PAIN 07/19/2017 ROMAIN KNIGHT DO Ot Z79.01 SKILLED NURSING (CURRENT) USE OF ANTICOAGULANT 07/19/2017 ROMAIN KNIGHT DO Ot 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.4 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) USE OF INSULIN 07/19/2017 ROMAIN KNIGHT DO Ot Z79.82 SKILLED NURSING (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 07/19/2017 ROMAIN KNIGHT DO Ot Z82.49 FAMILY HX OF ISCHEM HEART DIS AND OTH DI 07/19/2017 ROMAIN KNIGHT DO Ot Z86.010 PERSONAL HISTORY OF COLONIC POLYPS 07/19/2017 ROMAIN KNIGHT DO Ot Z86.73 PRSNL HX OF TIA (TIA), AND CEREB INFRC W 07/19/2017 EUGENE ROMAIN Ot Z87.19 PERSONAL HISTORY OF OTHER DISEASES OF TH 07/19/2017 EUGENE RIVERAROMAIN Ot Z87.891 PERSONAL HISTORY OF NICOTINE DEPENDENCE 07/19/2017 ROMAIN KNIGHT DO Ot Z88.0 ALLERGY STATUS TO PENICILLIN 07/19/2017 ROMAIN KNIGHT DO Ot Z88.1 ALLERGY STATUS TO OTHER ANTIBIOTIC AGENT 07/19/2017 ROMAIN KNIGHT DO Ot Z88.6 ALLERGY STATUS TO ANALGESIC AGENT STATUS 07/19/2017 ROMAIN KNIGHT DO Ot Z88.8 ALLERGY STATUS TO OT DRUG/MEDS/BIOL SUB 07/19/2017 ROMAIN KNIGHT DO Ot Z95.1 PRESENCE OF AORTOCORONARY BYPASS GRAFT 07/19/2017 ROMAIN KNIGHT DO Ot 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 IMPLANT 07/23/2017 ROMAIN KNIGHT DO Ot E11.9 TYPE 2 DIABETES MELLITUS WITHOUT COMPLIC 07/23/2017 ROMAIN KNIGHT DO Ot E78.00 PURE HYPERCHOLESTEROLEMIA, UNSPECIFIED 07/23/2017 ROMAIN KNIGHT DO Ot F41.9 ANXIETY DISORDER, UNSPECIFIED 07/23/2017 ROMAIN KNIGHT DO Ot G47.30 SLEEP APNEA, UNSPECIFIED 07/23/2017 EUGENE RIVERA ROMAIN K Ot I10 ESSENTIAL (PRIMARY) HYPERTENSION 07/23/2017 EUGENE RIVERA ROMAIN Suggs Ot I25.10 ATHSCL HEART DISEASE OF [place] CORONARY 07/23/2017 EUGENE RIVERA ROMAIN Suggs Ot I25.2 OLD MYOCARDIAL INFARCTION 07/23/2017 EUGENE ROMAIN Es Ot I48.91 UNSPECIFIED ATRIAL FIBRILLATION 07/23/2017 EUGENE RIVERA ROMAIN Es Ot I73.9 PERIPHERAL VASCULAR DISEASE, UNSPECIFIED 07/23/2017 EUGENE ROMAIN Es Ot J44.9 CHRONIC OBSTRUCTIVE PULMONARY DISEASE, U 07/23/2017 EUGENE RIVERA ROMAIN Suggs Ot K21.9 GASTRO-ESOPHAGEAL REFLUX DISEASE WITHOUT 07/23/2017 EUGENE RIVERA ROMAIN Es Ot R07.89 OTHER CHEST PAIN 07/23/2017 EUGENE ROMAIN Suggs Ot 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 07/23/2017 EUGENE ROMAIN Es Ot Z79.4 SKILLED NURSING (CURRENT) USE OF INSULIN 07/23/2017 EUGENE ROMAIN K Ot 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 07/23/2017 EUGENE ROMAIN Suggs Ot Z82.49 FAMILY HX OF ISCHEM HEART DIS AND OTH DI 07/23/2017 EUGENE RIVERA ROMAIN Es Ot Z86.010 PERSONAL HISTORY OF COLONIC POLYPS 07/23/2017 EUGENE RIVERA ROMAIN Es Ot Z86.73 PRSNL HX OF TIA (TIA), AND CEREB INFRC W 07/23/2017 EUGENE RIVERA ROMAIN Es Ot Z87.19 PERSONAL HISTORY OF OTHER DISEASES OF TH 07/23/2017 EUGENE RIVERA ROMAIN Es Ot Z87.891 PERSONAL HISTORY OF NICOTINE DEPENDENCE 07/23/2017 EUGENE ROMAIN Es Ot Z88.0 ALLERGY STATUS TO PENICILLIN 07/23/2017 EUGENE ROMAIN Ot Z88.1 ALLERGY STATUS TO OTHER ANTIBIOTIC AGENT 07/23/2017 EUGENE ROMAIN Ot Z88.6 ALLERGY STATUS TO ANALGESIC AGENT STATUS 07/23/2017 EUGENE ROMAIN Ot Z88.8 ALLERGY STATUS TO OTH DRUG/MEDS/BIOL SUB 07/23/2017 EUGENE ROMAIN Ot Z95.1 PRESENCE OF AORTOCORONARY BYPASS GRAFT 07/23/2017 ROMAIN KNIGHT DO Es Ot 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 IMPLANT 07/28/2017 LEONARDO SALGADO APRN Ot 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 07/28/2017 LEONARDO SALGADO APRN Ot E78.00 PURE HYPERCHOLESTEROLEMIA, UNSPECIFIED 07/28/2017 LEONARDO SALGADO APRN Ot F41 .9 ANXIETY DISORDER, UNSPECIFIED 07/28/2017 LEONARDO SALGADO APRN Ot G47.30 SLEEP APNEA, UNSPECIFIED 07/28/2017 LEONARDO SALGADO APRN Ot I10 ESSENTIAL (PRIMARY) HYPERTENSION 07/28/2017 LEONARDO SALGADO APRN Ot I25.10 ATHSCL HEART DISEASE OF [place] CORONARY 07/28/2017 LEONARDO SALGADO APRN Ot 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 07/28/2017 LEONARDO SALGADO APRN Ot I48.91 UNSPECIFIED ATRIAL FIBRILLATION 07/28/2017 LEONARDO SALGADO APRN Ot I73 .9 PERIPHERAL VASCULAR DISEASE, UNSPECIFIED 07/28/2017 LEONARDO SALGADO APRN Ot J44 .9 CHRONIC OBSTRUCTIVE PULMONARY DISEASE, U 07/28/2017 LEONARDO SALGADO APRN Ot K21 .9 GASTRO-ESOPHAGEAL REFLUX DISEASE WITHOUT 07/28/2017 LEONARDO SALGADO APRN Ot M54 .5 LOW BACK PAIN 07/28/2017 LEONARDO SALGADO APRN Ot S39.012A STRAIN OF MUSCLE, FASCIA AND TENDON OF L 07/28/2017 LEONARDO SALGADO APRN Ot X50.0XXA OVEREXERTION FROM STRENUOUS MOVEMENT OR 07/28/2017 LEONARDO SALGADO APRN Ot 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 07/28/2017 LEONARDO SALGADO APRN Ot Z79 .4 SKILLED NURSING (CURRENT) USE OF INSULIN 07/28/2017 LEONARDO SALGADO APRN Ot 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 07/28/2017 LEONARDO SALGADO APRN Ot Z82.49 FAMILY HX OF ISCHEM HEART DIS AND OTH DI 07/28/2017 LEONARDO SALGADO APRN Ot Z86.73 PRSNL HX OF TIA (TIA), AND CEREB INFRC W 07/28/2017 SALGADO, PETER J AUTOMOTIVE REFINISH TECHNICIAN Ot Z87.19 PERSONAL HISTORY OF OTHER DISEASES OF TH 07/28/2017 LEONARDO SALGADO AUTOMOTIVE REFINISH TECHNICIAN Ot Z87.891 PERSONAL HISTORY OF NICOTINE DEPENDENCE 07/28/2017 LEONARDO SALGADO AUTOMOTIVE REFINISH TECHNICIAN Ot Z88 .0 ALLERGY STATUS TO PENICILLIN 07/28/2017 LEONARDO SALGADO AUTOMOTIVE REFINISH TECHNICIAN Ot Z88 .1 ALLERGY STATUS TO OTHER ANTIBIOTIC AGENT 07/28/2017 LEONARDO SALGADO AUTOMOTIVE REFINISH TECHNICIAN Ot Z88 .6 ALLERGY STATUS TO ANALGESIC AGENT STATUS 07/28/2017 LEONARDO SALGADO AUTOMOTIVE REFINISH TECHNICIAN Ot Z88 .8 ALLERGY STATUS TO OTH DRUG/MEDS/BIOL SUB 07/28/2017 LEONARDO SALGADO AUTOMOTIVE REFINISH TECHNICIAN Ot 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 07/28/2017 LEONARDO SALGADO AUTOMOTIVE REFINISH TECHNICIAN Ot Z95 .5 PRESENCE OF CORONARY ANGIOPLASTY IMPLANT 07/29/2017 EUGENE DO, ROMAIN K Ot D64.9 ANEMIA, UNSPECIFIED 07/29/2017 EUGENE DO, ROMAIN K Ot 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 DIABETIC REPAIR CAMERAMAN 07/29/2017 EUGENE DO, ROMAIN K Ot E86.0 DEHYDRATION 07/29/2017 EUGENE DO, ROMAIN K Ot F41.9 ANXIETY DISORDER, UNSPECIFIED 07/29/2017 EUGENE DO, ROMAIN K Ot I12.9 HYPERTENSIVE CHRONIC KIDNEY DISEASE W ST 07/29/2017 EUGENE DO, ROMAIN K Ot I25.10 ATHSCL HEART DISEASE OF [place] CORONARY 07/29/2017 EUGENE DO, ROMAIN K Ot I25.2 OLD MYOCARDIAL INFARCTION 07/29/2017 EUGENE DO, ROMAIN K Ot I48.91 UNSPECIFIED ATRIAL FIBRILLATION 07/29/2017 EUGENE DO, ROMAIN K Ot I73.9 PERIPHERAL VASCULAR DISEASE, UNSPECIFIED 07/29/2017 EUGENE DO, ROMAIN K Ot I95.9 HYPOTENSION, UNSPECIFIED 07/29/2017 EUGENE DO, ROMAIN K Ot K21.9 GASTRO-ESOPHAGEAL REFLUX DISEASE WITHOUT 07/29/2017 EUGENE DO, ROMAIN K Ot N17.9 ACUTE KIDNEY FAILURE, UNSPECIFIED 07/29/2017 EUGENE DO, ROMAIN K Ot N18.9 CHRONIC KIDNEY DISEASE, UNSPECIFIED 07/29/2017 EUGENE DO, ROMAIN K Ot N40.1 BENIGN PROSTATIC HYPERPLASIA WITH LOWER 07/29/2017 EUGENE DO, ROMAIN K Ot R42 DIZZINESS AND GIDDINESS 07/29/2017 ROMAIN KNIGHT DO Ot R60.0 LOCALIZED EDEMA 07/29/2017 ROMAIN KNIGHT DO Ot 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 07/29/2017 ROMAIN KNIGHT DO Ot Z79.4 SKILLED NURSING (CURRENT) USE OF INSULIN 07/29/2017 ROMAIN KNIGHT DO Ot Z79.82 SKILLED NURSING (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 07/29/2017 ROMAIN KNIGHT DO Ot Z86.73 PRSNL HX OF TIA (TIA), AND CEREB INFRC W 07/29/2017 ROMAIN KNIGHT DO Ot Z87.891 PERSONAL HISTORY OF NICOTINE DEPENDENCE 07/29/2017 ROMAIN KNIGHT DO Ot Z88.0 ALLERGY STATUS TO PENICILLIN 07/29/2017 ROMAIN KNIGHT DO Ot Z88.1 ALLERGY STATUS TO OTHER ANTIBIOTIC AGENT 07/29/2017 ROMAIN KNIGHT DO Ot Z88.6 ALLERGY STATUS TO ANALGESIC AGENT STATUS 07/29/2017 ROMAIN KNIGHT DO Ot Z88.8 ALLERGY STATUS TO OTH DRUG/MEDS/BIOL SUB 07/29/2017 ROMAIN KNIGHT DO Ot Z90.49 ACQUIRED ABSENCE OF OTHER SPECIFIED PART 07/29/2017 ROMAIN KNIGHT DO Ot Z95.1 PRESENCE OF AORTOCORONARY BYPASS GRAFT 07/29/2017 ROMAIN KNIGHT DO Ot 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 IMPLANT 07/29/2017 ROMAIN KNIGHT DO Ot Z96.659 PRESENCE OF UNSPECIFIED ARTIFICIAL KNEE 07/29/2017 ROMAIN KNIGHT DO Ot Z98.890 OTHER SPECIFIED POSTPROCEDURAL STATES 07/31/2017 ROMAIN KNIGHT DO Ot D64.9 ANEMIA, UNSPECIFIED 07/31/2017 ROMAIN KNIGHT DO Ot 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 DIABETIC REPAIR CAMERAMAN 07/31/2017 ROMAIN KNIGHT DO Ot E86.0 DEHYDRATION 07/31/2017 ROMAIN KNIGHT DO Ot F41.9 ANXIETY DISORDER, UNSPECIFIED 07/31/2017 ROMAIN KNIGHT DO Ot I12.9 HYPERTENSIVE CHRONIC KIDNEY DISEASE W ST 07/31/2017 ROMAIN KNIGHT DO Ot I25.10 ATHSCL HEART DISEASE OF [place] CORONARY 07/31/2017 EUGENE ROMAIN K Ot I25.2 OLD MYOCARDIAL INFARCTION 07/31/2017 EUGENE DO, ROMAIN K Ot I48.91 UNSPECIFIED ATRIAL FIBRILLATION 07/31/2017 EUGENE DO, ROMAIN K Ot I73.9 PERIPHERAL VASCULAR DISEASE, UNSPECIFIED 07/31/2017 EUGENE DO, ROMAIN K Ot I95.9 HYPOTENSION, UNSPECIFIED 07/31/2017 EUGENE DO, ROMAIN K Ot K21.9 GASTRO-ESOPHAGEAL REFLUX DISEASE WITHOUT 07/31/2017 EUGENE DO, ROMAIN K Ot N17.9 ACUTE KIDNEY FAILURE, UNSPECIFIED 07/31/2017 EUGENE DO, ROMAIN K Ot N18.9 CHRONIC KIDNEY DISEASE, UNSPECIFIED 07/31/2017 EUGENE DO, ROMAIN K Ot N40.1 BENIGN PROSTATIC HYPERPLASIA WITH LOWER 07/31/2017 EUGENE DO ROMAIN K Ot R42 DIZZINESS AND GIDDINESS 07/31/2017 EUGENE DO ROMAIN K Ot R60.0 LOCALIZED EDEMA 07/31/2017 PAHRUMP DO ROMAIN K Ot Z79.01 SKILLED NURSING (CURRENT) USE OF ANTICOAGULANT 07/31/[address] [facility] ROMAIN K Ot Z79.4 SKILLED NURSING (CURRENT) USE OF INSULIN 07/31/[address] 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 [facility] K Ot Z86.73 PRSNL HX OF TIA (TIA), AND CEREB INFRC W 07/31/[address] [facility] K Ot Z87.891 PERSONAL HISTORY OF NICOTINE DEPENDENCE 07/31/[address] [facility] K Ot Z88.0 ALLERGY STATUS TO PENICILLIN 07/31/[address] [facility] ROMAIN K Ot Z88.1 ALLERGY STATUS TO OTHER ANTIBIOTIC AGENT 07/31/[address] [facility] ROMAIN K Ot Z88.6 ALLERGY STATUS TO ANALGESIC AGENT STATUS 07/31/[address] [facility] K Ot Z88.8 ALLERGY STATUS TO OTH DRUG/MEDS/BIOL SUB 07/31/2017 PAHRUMP GHANSHYAM RIVERAA K Ot Z90.49 ACQUIRED ABSENCE OF OTHER SPECIFIED PART 07/31/2017 EUGENE GHANSHYAM RIVERAA K Ot Z95.1 PRESENCE OF AORTOCORONARY BYPASS GRAFT 07/31/2017 ROMAIN KNIGHT DO Ot 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 IMPLANT 07/31/2017 ROMAIN KNIGHT DO Ot Z96.659 PRESENCE OF UNSPECIFIED ARTIFICIAL KNEE 07/31/2017 ROMAIN KNIGHT DO Ot Z98.890 OTHER SPECIFIED POSTPROCEDURAL STATES 08/31/2017 CHARO SCHNEIDER MD Ot E11.9 TYPE 2 DIABETES MELLITUS WITHOUT COMPLIC 08/31/2017 CHARO SCHNEIDER MD Ot E78.00 PURE HYPERCHOLESTEROLEMIA, UNSPECIFIED 08/31/2017 CHARO SCHNEIDER MD, Ot F41.9 ANXIETY DISORDER, UNSPECIFIED 08/31/2017 CHARO SCHNEIDER MD, Ot G47.30 SLEEP APNEA, UNSPECIFIED 08/31/2017 CHARO SCHNEIDER MD Ot I10 ESSENTIAL (PRIMARY) HYPERTENSION 08/31/2017 CHARO SCHNEIDER MD Ot I25.10 ATHSCL HEART DISEASE OF [place] CORONARY 08/31/2017 CHARO SCHNEIDER MD, Ot I25.2 OLD MYOCARDIAL INFARCTION 08/31/2017 CHARO SCHNEIDER MD Ot I48.91 UNSPECIFIED ATRIAL FIBRILLATION 08/31/2017 CHARO SCHNEIDER MD Ot I73.9 PERIPHERAL VASCULAR DISEASE, UNSPECIFIED 08/31/2017 CHARO SCHNEIDER MD, Ot J44.9 CHRONIC OBSTRUCTIVE PULMONARY DISEASE, U 08/31/2017 CHARO SCHNEIDER MD Ot K21.9 GASTRO-ESOPHAGEAL REFLUX DISEASE WITHOUT 08/31/2017 CHARO SCHNEIDER MD Ot N40.0 BENIGN PROSTATIC HYPERPLASIA WITHOUT LOW 08/31/2017 CHARO SCHNEIDER MD Ot N43.3 HYDROCELE, UNSPECIFIED 08/31/2017 CHARO SCHNEIDER MD Ot N50.3 CYST OF EPIDIDYMIS 08/31/2017 CHARO SCHNEIDER MD Ot N50.812 LEFT TESTICULAR PAIN 08/31/2017 CHARO SCHNEIDER MD Ot R60.0 LOCALIZED EDEMA 08/31/2017 CHARO SCHNEIDER MD Ot Z79.4 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) USE OF INSULIN 08/31/2017 CHARO SCHNEIDER MD Ot 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 08/31/2017 CHARO SCHNEIDER MD Ot Z82.49 FAMILY HX OF ISCHEM HEART DIS AND OTH DI 08/31/2017 CHARO SCHNEIDER MD Ot Z86.73 PRSNL HX OF TIA (TIA), AND CEREB INFRC W 08/31/2017 CHARO SCHNEIDER MD, Ot Z87.19 PERSONAL HISTORY OF OTHER DISEASES OF TH 08/31/2017 CHARO SCHNEIDER MD, Ot Z87.448 PERSONAL HISTORY OF OTHER DISEASES OF UR 08/31/2017 CHARO SCHNEIDER MD, Ot Z87.891 PERSONAL HISTORY OF NICOTINE DEPENDENCE 08/31/2017 CHARO SCHNEIDER MD Ot Z88.0 ALLERGY STATUS TO PENICILLIN 08/31/2017 CHARO SCHNEIDER MD, Ot Z88.1 ALLERGY STATUS TO OTHER ANTIBIOTIC AGENT 08/31/2017 CHARO SCHNEIDER MD, Ot Z88.6 ALLERGY STATUS TO ANALGESIC AGENT STATUS 08/31/2017 CHARO SCHNEIDER MD, Ot Z88.8 ALLERGY STATUS TO OTH DRUG/MEDS/BIOL SUB 08/31/2017 CHARO SCHNEIDER MD Ot Z95.1 PRESENCE OF AORTOCORONARY BYPASS GRAFT 08/31/2017 CHARO SCNHEIDER MD Ot 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 IMPLANT 08/31/2017 CHARO SCHNEIDER MD Ot Z98.890 OTHER SPECIFIED POSTPROCEDURAL STATES 09/06/2017 DEEDEE CUBA MD Ot E11 .9 TYPE 2 DIABETES MELLITUS WITHOUT COMPLIC 09/06/2017 DEEDEE CUBA MD Ot E78.00 PURE HYPERCHOLESTEROLEMIA, UNSPECIFIED 09/06/2017 DEEDEE CUBA MD Ot F41 .9 ANXIETY DISORDER, UNSPECIFIED 09/06/2017 DEEDEE CUBA MD Ot G47.30 SLEEP APNEA, UNSPECIFIED 09/06/2017 DEEDEE CUBA MD Ot I10 ESSENTIAL (PRIMARY) HYPERTENSION 09/06/2017 DEEDEE CUBA MD Ot I25.10 ATHSCL HEART DISEASE OF [place] CORONARY 09/06/2017 DEEDEE CUBA MD Ot 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 09/06/2017 DEEDEE CUBA MD Ot I48.91 UNSPECIFIED ATRIAL FIBRILLATION 09/06/2017 DEEDEE CUBA MD Ot I73 .9 PERIPHERAL VASCULAR DISEASE, UNSPECIFIED 09/06/2017 DEEDEE CUBA MD Ot J44 .9 CHRONIC OBSTRUCTIVE PULMONARY DISEASE, U 09/06/2017 DEEDEE CUBA MD, Ot K21 .9 GASTRO-ESOPHAGEAL REFLUX DISEASE WITHOUT 09/06/2017 DEEDEE CUBA MD, Ot K59.00 CONSTIPATION, UNSPECIFIED 09/06/2017 DEEDEE CUBA MD, Ot R10.13 EPIGASTRIC PAIN 09/06/2017 DEEDEE CUBA MD, Ot 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 09/06/2017 DEEDEE CUBA MD, Ot Z79 .4 SKILLED NURSING (CURRENT) USE OF INSULIN 09/06/2017 DEEDEE CUBA MD, Ot Z79.82 SKILLED NURSING (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 09/06/2017 DEEDEE CUBA MD, Ot Z82.49 FAMILY HX OF ISCHEM HEART DIS AND OTH DI 09/06/2017 DEEDEE CUBA MD, Ot Z86.010 PERSONAL HISTORY OF COLONIC POLYPS 09/06/2017 DEEDEE CUBA MD Ot Z86.73 PRSNL HX OF TIA (TIA), AND CEREB INFRC W 09/06/2017 DEEDEE CUBA MD Ot Z87.19 PERSONAL HISTORY OF OTHER DISEASES OF TH 09/06/2017 DEEDEE CUBA MD, Ot Z87.891 PERSONAL HISTORY OF NICOTINE DEPENDENCE 09/06/2017 DEEDEE CUBA MD, Ot Z88 .0 ALLERGY STATUS TO PENICILLIN 09/06/2017 DEEDEE CUBA MD Ot Z88 .6 ALLERGY STATUS TO ANALGESIC AGENT STATUS 09/06/2017 DEEDEE CUBA MD, Ot Z88 .8 ALLERGY STATUS TO OT DRUG/MEDS/BIOL SUB 09/06/2017 DEEDEE CUBA MD Ot 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 09/06/2017 DEEDEE CUBA MD Ot Z95 .5 PRESENCE OF CORONARY ANGIOPLASTY IMPLANT 09/08/2017 DEEDEE CUBA MD Ot E11 .9 TYPE 2 DIABETES MELLITUS WITHOUT COMPLIC 09/08/2017 DEEDEE CUBA MD Ot E78.00 PURE HYPERCHOLESTEROLEMIA, UNSPECIFIED 09/08/2017 DEEDEE CUBA MD Ot F41 .9 ANXIETY DISORDER, UNSPECIFIED 09/08/2017 DEEDEE CUBA MD Ot G47.30 SLEEP APNEA, UNSPECIFIED 09/08/2017 DEEDEE CUBA MD Ot I10 ESSENTIAL (PRIMARY) HYPERTENSION 09/08/2017 DEEDEE CUBA MD, Ot I25.10 ATHSCL HEART DISEASE OF [place] CORONARY 09/08/2017 DEEDEE CUBA MD, Ot 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 09/08/2017 DEEDEE CUBA MD Ot I48.91 UNSPECIFIED ATRIAL FIBRILLATION 09/08/2017 DEEDEE CUBA MD, Ot I73 .9 PERIPHERAL VASCULAR DISEASE, UNSPECIFIED 09/08/2017 DEEDEE CUBA MD, Ot J44 .9 CHRONIC OBSTRUCTIVE PULMONARY DISEASE, U 09/08/2017 DEEDEE CUBA MD, Ot K21 .9 GASTRO-ESOPHAGEAL REFLUX DISEASE WITHOUT 09/08/2017 DEEDEE CUBA MD, Ot K59.00 CONSTIPATION, UNSPECIFIED 09/08/2017 DEEDEE CUBA MD Ot R10.13 EPIGASTRIC PAIN 09/08/2017 DEEDEE CUBA MD, Ot Z79.01 SKILLED NURSING (CURRENT) USE OF ANTICOAGULANT 09/08/2017 DEEDEE CUBA MD, Ot 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 09/08/2017 DEEDEE CUBA MD, Ot Z79.82 SKILLED NURSING (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 09/08/2017 DEEDEE CUBA MD Ot Z82.49 FAMILY HX OF ISCHEM HEART DIS AND OTH DI 09/08/2017 DEEDEE CUBA MD, Ot Z86.010 PERSONAL HISTORY OF COLONIC POLYPS 09/08/2017 DEEDEE CUBA MD Ot Z86.73 PRSNL HX OF TIA (TIA), AND CEREB INFRC W 09/08/2017 DEEDEE CUBA MD Ot Z87.19 PERSONAL HISTORY OF OTHER DISEASES OF TH 09/08/2017 DEEDEE CUBA MD, Ot Z87.891 PERSONAL HISTORY OF NICOTINE DEPENDENCE 09/08/2017 DEEDEE CUBA MD Ot Z88 .0 ALLERGY STATUS TO PENICILLIN 09/08/2017 DEEDEE CUBA MD, Ot Z88 .6 ALLERGY STATUS TO ANALGESIC AGENT STATUS 09/08/2017 DEEDEE CUBA MD, Ot Z88 .8 ALLERGY STATUS TO OTH DRUG/MEDS/BIOL SUB 09/08/2017 DEEDEE CUBA MD Ot 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 09/08/2017 DEEDEE CUBA MD Ot Z95 .5 PRESENCE OF CORONARY ANGIOPLASTY IMPLANT 10/12/2017 LEONARDO SALGADO APRN Ot E11 .9 TYPE 2 DIABETES MELLITUS WITHOUT COMPLIC 10/12/2017 LEONARDO SALGADO APRN Ot E78.00 PURE HYPERCHOLESTEROLEMIA, UNSPECIFIED 10/12/2017 LEONARDO SALGADO APRN Ot F41 .9 ANXIETY DISORDER, UNSPECIFIED 10/12/2017 LEONARDO SALGADO APRN Ot G47.30 SLEEP APNEA, UNSPECIFIED 10/12/2017 LEONARDO SALGADO APRN Ot I10 ESSENTIAL (PRIMARY) HYPERTENSION 10/12/2017 LEONARDO SALGADO APRN Ot I25.10 ATHSCL HEART DISEASE OF [place] CORONARY 10/12/2017 LEONARDO SALGADO APRN Ot 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 10/12/2017 LEONARDO SALGADO APRN Ot I48.91 UNSPECIFIED ATRIAL FIBRILLATION 10/12/2017 LEONARDO SALGADO APRN Ot I73 .9 PERIPHERAL VASCULAR DISEASE, UNSPECIFIED 10/12/2017 LEONARDO SALGADO APRN Ot J44 .9 CHRONIC OBSTRUCTIVE PULMONARY DISEASE, U 10/12/2017 LEONARDO SALGADO APRN Ot K21 .9 GASTRO-ESOPHAGEAL REFLUX DISEASE WITHOUT 10/12/2017 LEONARDO SALGADO APRN Ot R10.13 EPIGASTRIC PAIN 10/12/2017 LEONARDO SALGADO APRN Ot 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 10/12/2017 LEONARDO SALGADO APRN Ot 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 10/12/2017 LEONARDO SALGADO APRN Ot Z79.82 SKILLED NURSING (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 10/12/2017 LEONARDO SALGADO APRN Ot Z82.49 FAMILY HX OF ISCHEM HEART DIS AND OTH DI 10/12/2017 LEONARDO SALGADO APRN Ot Z86.010 PERSONAL HISTORY OF COLONIC POLYPS 10/12/2017 LEONARDO SALGADO APRN Ot Z86.73 PRSNL HX OF TIA (TIA), AND CEREB INFRC W 10/12/2017 LEONARDO SALGADO APRN Ot Z87.19 PERSONAL HISTORY OF OTHER DISEASES OF TH 10/12/2017 LEONARDO SALGADO APRN Ot Z87.891 PERSONAL HISTORY OF NICOTINE DEPENDENCE 10/12/2017 LEONARDO SALGADO APRN Ot Z88 .0 ALLERGY STATUS TO PENICILLIN 10/12/2017 SALGADO, PETER J AUTOMOTIVE REFINISH TECHNICIAN Ot Z88 .1 ALLERGY STATUS TO OTHER ANTIBIOTIC AGENT 10/12/2017 LEONARDO SALGADO APRN Ot Z88 .8 ALLERGY STATUS TO OTH DRUG/MEDS/BIOL SUB 10/12/2017 LEONARDO SALGADO APRN Ot 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 10/12/2017 LEONARDO SALGADO APRN Ot Z95 .5 PRESENCE OF CORONARY ANGIOPLASTY IMPLANT 10/15/2017 LEONARDO SALGADO APRN Ot E11 .9 TYPE 2 DIABETES MELLITUS WITHOUT COMPLIC 10/15/2017 LEONARDO SALGADO APRN Ot E78.00 PURE HYPERCHOLESTEROLEMIA, UNSPECIFIED 10/15/2017 LEONARDO SALGADO APRN Ot F41 .9 ANXIETY DISORDER, UNSPECIFIED 10/15/2017 LEONARDO SALGADO APRN Ot G47.30 SLEEP APNEA, UNSPECIFIED 10/15/2017 LEONARDO SALGADO APRN Ot I10 ESSENTIAL (PRIMARY) HYPERTENSION 10/15/2017 LEONARDO SALGADO APRN Ot I25.10 ATHSCL HEART DISEASE OF [place] CORONARY 10/15/2017 LEONARDO SALGADO APRN Ot 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 10/15/2017 LEONARDO SALGADO APRN Ot I48.91 UNSPECIFIED ATRIAL FIBRILLATION 10/15/2017 LEONARDO SALGADO APRN Ot I73 .9 PERIPHERAL VASCULAR DISEASE, UNSPECIFIED 10/15/2017 LEONARDO SALGADO APRN Ot J44 .9 CHRONIC OBSTRUCTIVE PULMONARY DISEASE, U 10/15/2017 LEONARDO SALGADO APRN Ot K21 .9 GASTRO-ESOPHAGEAL REFLUX DISEASE WITHOUT 10/15/2017 LEONARDO SALGADO APRN Ot R10.13 EPIGASTRIC PAIN 10/15/2017 LEONARDO SALGADO APRN Ot Z79.01 SKILLED NURSING (CURRENT) USE OF ANTICOAGULANT 10/15/2017 LEONARDO SALGADO APRN Ot 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 10/15/2017 LEONARDO SALGADO APRN Ot Z79.82 SKILLED NURSING (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 10/15/2017 LEONARDO SALGADO APRN Ot Z82.49 FAMILY HX OF ISCHEM HEART DIS AND OTH DI 10/15/2017 LEONARDO SALGADO APRN Ot Z86.010 PERSONAL HISTORY OF COLONIC POLYPS 10/15/2017 LEONARDO SALGADO APRN Ot Z86.73 PRSNL HX OF TIA (TIA), AND CEREB INFRC W 10/15/2017 LEONARDO SALGADO APRN Ot Z87.19 PERSONAL HISTORY OF OTHER DISEASES OF TH 10/15/2017 LEONARDO SALGADO APRN Ot Z87.891 PERSONAL HISTORY OF NICOTINE DEPENDENCE 10/15/2017 LEONARDO SALGADO APRN Ot Z88 .0 ALLERGY STATUS TO PENICILLIN 10/15/2017 LEONARDO SALGADO APRN Ot Z88 .1 ALLERGY STATUS TO OTHER ANTIBIOTIC AGENT 10/15/2017 LEONARDO SALGADO APRN Ot Z88 .8 ALLERGY STATUS TO OT DRUG/MEDS/BIOL SUB 10/15/2017 LEONARDO SALGADO APRN Ot 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 10/15/2017 LEONARDO SALGADO APRN Ot Z95 .5 PRESENCE OF CORONARY ANGIOPLASTY IMPLANT 11/11/2017 LEONARDO SALGADO APRN Ot 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 11/11/2017 LEONARDO SALGADO APRN Ot E78.00 PURE HYPERCHOLESTEROLEMIA, UNSPECIFIED 11/11/2017 LEONARDO SALGADO APRN Ot F41 .9 ANXIETY DISORDER, UNSPECIFIED 11/11/2017 LEONARDO SALGADO APRN Ot G47.30 SLEEP APNEA, UNSPECIFIED 11/11/2017 LEONARDO SALGADO APRN Ot I10 ESSENTIAL (PRIMARY) HYPERTENSION 11/11/2017 LEONARDO SALGADO APRN Ot I25.10 ATHSCL HEART DISEASE OF [place] CORONARY 11/11/2017 LEONARDO SALGADO APRN Ot 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 11/11/2017 LEONARDO SALGADO APRN Ot I48.91 UNSPECIFIED ATRIAL FIBRILLATION 11/11/2017 LEONARDO SALGADO APRN Ot I73 .9 PERIPHERAL VASCULAR DISEASE, UNSPECIFIED 11/11/2017 LEONARDO SALGADO APRN Ot J06 .9 ACUTE UPPER RESPIRATORY INFECTION, UNSPE 11/11/2017 LEONARDO SALGADO APRN Ot J44 .9 CHRONIC OBSTRUCTIVE PULMONARY DISEASE, U 11/11/2017 LEONARDO SALGADO APRN Ot R05 COUGH 11/11/2017 LEONARDO SALGADO APRN Ot Z79.01 SKILLED NURSING (CURRENT) USE OF ANTICOAGULANT 11/11/2017 LEONARDO SALGADO APRN Ot 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 11/11/2017 LEONARDO SALGADO APRN Ot 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 11/11/2017 LEONARDO SALGADO APRN Ot Z82.49 FAMILY HX OF ISCHEM HEART DIS AND OTH DI 11/11/2017 LEONARDO SALGADO APRN Ot Z86.73 PRSNL HX OF TIA (TIA), AND CEREB INFRC W 11/11/2017 LEONARDO SALGADO APRN Ot Z87.448 PERSONAL HISTORY OF OTHER DISEASES OF UR 11/11/2017 LEONARDO SALGADO APRN Ot Z87.891 PERSONAL HISTORY OF NICOTINE DEPENDENCE 11/11/2017 LEONARDO SALGADO APRN Ot Z88 .0 ALLERGY STATUS TO PENICILLIN 11/11/2017 LEONARDO SALGADO APRN Ot Z88 .1 ALLERGY STATUS TO OTHER ANTIBIOTIC AGENT 11/11/2017 LEONARDO SALGADO APRN Ot Z88 .8 ALLERGY STATUS TO [facility] DRUG/MEDS/BIOL SUB 11/11/2017 LEONARDO SALGADO APRN Ot 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 11/11/2017 LEONARDO SALGADO APRN Ot Z95 .5 PRESENCE OF CORONARY ANGIOPLASTY IMPLANT 11/13/2017 LEONARDO SALGADO APRN Ot 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 11/13/2017 LEONARDO SALGADO APRN Ot E78.00 PURE HYPERCHOLESTEROLEMIA, UNSPECIFIED 11/13/2017 LEONARDO SALGADO APRN Ot F41 .9 ANXIETY DISORDER, UNSPECIFIED 11/13/2017 LEONARDO SALGADO APRN Ot G47.30 SLEEP APNEA, UNSPECIFIED 11/13/2017 LEONARDO SALGADO APRN Ot I10 ESSENTIAL (PRIMARY) HYPERTENSION 11/13/2017 LEONARDO SALGADO APRN Ot I25.10 ATHSCL HEART DISEASE OF [place] CORONARY 11/13/2017 LEONARDO SALGADO APRN Ot 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 11/13/2017 LEONARDO SALGADO APRN Ot I48.91 UNSPECIFIED ATRIAL FIBRILLATION 11/13/2017 LEONARDO SALGADO APRN Ot I73 .9 PERIPHERAL VASCULAR DISEASE, UNSPECIFIED 11/13/2017 LEONARDO SALGADO APRN Ot J06 .9 ACUTE UPPER RESPIRATORY INFECTION, UNSPE 11/13/2017 LEONARDO SALGADO APRN Ot J44 .9 CHRONIC OBSTRUCTIVE PULMONARY DISEASE, U 11/13/2017 LEONARDO SALGADO APRN Ot R05 COUGH 11/13/2017 LEONARDO SALGADO APRN Ot Z79.01 SKILLED NURSING (CURRENT) USE OF ANTICOAGULANT 11/13/2017 LEONARDO SALGADO APRN Ot 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 11/13/2017 LEONARDO SALGADO APRN Ot Z79.82 SKILLED NURSING (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 11/13/2017 LEONARDO SALGADO APRN Ot Z82.49 FAMILY HX OF ISCHEM HEART DIS AND OTH DI 11/13/2017 LEONARDO SALGADO APRN Ot Z86.73 PRSNL HX OF TIA (TIA), AND CEREB INFRC W 11/13/2017 LEONARDO SALGADO APRN Ot Z87.448 PERSONAL HISTORY OF OTHER DISEASES OF UR 11/13/2017 LEONARDO SALGADO APRN Ot Z87.891 PERSONAL HISTORY OF NICOTINE DEPENDENCE 11/13/2017 LEONARDO SALGADO APRN Ot Z88 .0 ALLERGY STATUS TO PENICILLIN 11/13/2017 LEONARDO SALGADO APRN Ot Z88 .1 ALLERGY STATUS TO OTHER ANTIBIOTIC AGENT 11/13/2017 LEONARDO SALGADO APRN Ot Z88 .8 ALLERGY STATUS TO OT DRUG/MEDS/BIOL SUB 11/13/2017 LEONARDO SALGADO APRN Ot 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 11/13/2017 LEONARDO SALGADO APRN Ot Z95 .5 PRESENCE OF CORONARY ANGIOPLASTY IMPLANT 11/17/2017 LEONARDO SALGADO APRN Ot 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 11/17/2017 LEONARDO SALGADO APRN Ot E78.00 PURE HYPERCHOLESTEROLEMIA, UNSPECIFIED 11/17/2017 LEONARDO SAGLADO APRN Ot F41 .9 ANXIETY DISORDER, UNSPECIFIED 11/17/2017 LEONARDO SALGADO APRN Ot G47.30 SLEEP APNEA, UNSPECIFIED 11/17/2017 LEONARDO SALGADO APRN Ot I10 ESSENTIAL (PRIMARY) HYPERTENSION 11/17/2017 LEONARDO SALGADO APRN Ot I25.10 ATHSCL HEART DISEASE OF [place] CORONARY 11/17/2017 LEONARDO SALGADO APRN Ot 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 11/17/2017 LEONARDO SALGADO APRN Ot I48.91 UNSPECIFIED ATRIAL FIBRILLATION 11/17/2017 LEONARDO SALGADO APRN Ot I73 .9 PERIPHERAL VASCULAR DISEASE, UNSPECIFIED 11/17/2017 LEONARDO SALGADO APRN Ot J06 .9 ACUTE UPPER RESPIRATORY INFECTION, UNSPE 11/17/2017 LEONARDO SALGADO APRN Ot J44 .9 CHRONIC OBSTRUCTIVE PULMONARY DISEASE, U 11/17/2017 LEONARDO SALGADO APRN Ot R05 COUGH 11/17/2017 LEONARDO SALGADO APRN Ot Z79.01 SKILLED NURSING (CURRENT) USE OF ANTICOAGULANT 11/17/2017 LEONARDO SALGADO APRN Ot Z79 .4 SKILLED NURSING (CURRENT) USE OF INSULIN 11/17/2017 LEONARDO SALGADO APRN Ot 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 11/17/2017 LEONARDO SALGADO APRN Ot Z82.49 FAMILY HX OF ISCHEM HEART DIS AND OTH DI 11/17/2017 LEONARDO SALGADO APRN Ot Z86.73 PRSNL HX OF TIA (TIA), AND CEREB INFRC W 11/17/2017 LEONARDO SALGADO APRN Ot Z87.448 PERSONAL HISTORY OF OTHER DISEASES OF UR 11/17/2017 LEONARDO SALGADO APRN Ot Z87.891 PERSONAL HISTORY OF NICOTINE DEPENDENCE 11/17/2017 LEONARDO SALGADO APRN Ot Z88 .0 ALLERGY STATUS TO PENICILLIN 11/17/2017 LEONARDO SALGADO APRN Ot Z88 .1 ALLERGY STATUS TO OTHER ANTIBIOTIC AGENT 11/17/2017 LEONARDO SALGADO APRN Ot Z88 .8 ALLERGY STATUS TO [facility] DRUG/MEDS/BIOL SUB 11/17/2017 LEONARDO SALGADO APRN Ot 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 11/17/2017 LEONARDO SALGADO APRN Ot Z95 .5 PRESENCE OF CORONARY ANGIOPLASTY IMPLANT 12/27/2017 Ot 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 12/27/2017 Ot E78.00 PUR E HYPERCHOLESTEROLEMIA, UNSPECIFIED 12/27/2017 Ot F41.9 ANXI ETY DISORDER, UNSPECIFIED 12/27/2017 Ot G47.30 SLE EP APNEA, UNSPECIFIED 12/27/2017 Ot I10 ESSENT IAL (PRIMARY) HYPERTENSION 12/27/2017 Ot I25.10 ATH SCL HEART DISEASE OF [place] CORONARY 12/27/2017 Ot I25.2 OLD MYOCARDIAL INFARCTION 12/27/2017 Ot I48.91 UNS PECIFIED ATRIAL FIBRILLATION 12/27/2017 Ot I73.9 RIO PHERAL VASCULAR DISEASE, UNSPECIFIED 12/27/2017 Ot J44.9 REPAIR CAMERAMAN RONEL OBSTRUCTIVE PULMONARY DISEASE, U 12/27/2017 Ot K21.9 ALEJA RO-ESOPHAGEAL REFLUX DISEASE WITHOUT 12/27/2017 Ot R07.89 OT ER CHEST PAIN 12/27/2017 Ot R10.11 RIG HT UPPER QUADRANT PAIN 12/27/2017 Ot Z79.01 CLAIRE G TERM (CURRENT) USE OF ANTICOAGULANT 12/27/2017 Ot Z79.4 SKILLED NURSING (CURRENT) USE OF INSULIN 12/27/2017 Ot Z79.82 CLAIRE G TERM (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 12/27/2017 Ot Z82.49 FAM HUBERT HX OF ISCHEM HEART DIS AND OTH DI 12/27/2017 Ot 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), AND CEREB INFRC W 12/27/2017 Ot Z87.19 PER RAMIN HISTORY OF OTHER DISEASES OF TH 12/27/2017 Ot Z87.891 PE RSONAL HISTORY OF NICOTINE DEPENDENCE 12/27/2017 Ot Z88.0 ROBBI RGY STATUS TO PENICILLIN 12/27/2017 Ot Z88.1 ROBBI RGY STATUS TO OTHER ANTIBIOTIC AGENT 12/27/2017 Ot Z88.8 ROBBI RGY STATUS TO [facility] DRUG/MEDS/BIOL SUB 12/27/2017 Ot Z95.1 PRES ENCE OF AORTOCORONARY BYPASS GRAFT 12/27/2017 Ot Z95.5 PRES ENCE OF CORONARY ANGIOPLASTY IMPLANT 12/27/2017 Ot Z98.61 COR ONARY ANGIOPLASTY STATUS 12/31/2017 Ot 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 12/31/2017 Ot E78.00 PUR E HYPERCHOLESTEROLEMIA, UNSPECIFIED 12/31/2017 Ot F41.9 ANXI ETY DISORDER, UNSPECIFIED 12/31/2017 Ot G47.30 SLE EP APNEA, UNSPECIFIED 12/31/2017 Ot I10 ESSENT IAL (PRIMARY) HYPERTENSION 12/31/2017 Ot I25.10 ATH SCL HEART DISEASE OF [place] CORONARY 12/31/2017 Ot I25.2 OLD MYOCARDIAL INFARCTION 12/31/2017 Ot I48.91 UNS PECIFIED ATRIAL FIBRILLATION 12/31/2017 Ot I73.9 RIO PHERAL VASCULAR DISEASE, UNSPECIFIED 12/31/2017 Ot J44.9 REPAIR CAMERAMAN RONEL OBSTRUCTIVE PULMONARY DISEASE, U 12/31/2017 Ot K21.9 ALEJA RO-ESOPHAGEAL REFLUX DISEASE WITHOUT 12/31/2017 Ot R07.89 OTH ER CHEST PAIN 12/31/2017 Ot R10.11 RIG HT UPPER QUADRANT PAIN 12/31/2017 Ot Z79.01 CLAIRE G TERM (CURRENT) USE OF ANTICOAGULANT 12/31/2017 Ot Z79.4 SKILLED NURSING (CURRENT) USE OF INSULIN 12/31/2017 Ot Z79.82 CLAIRE G TERM (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 12/31/2017 Ot Z82.49 FAM HUBERT HX OF ISCHEM HEART DIS AND OTH DI 12/31/2017 Ot 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), AND CEREB INFRC W 12/31/2017 Ot Z87.19 PER RAMIN HISTORY OF OTHER DISEASES OF TH 12/31/2017 Ot Z87.891 PE RSONAL HISTORY OF NICOTINE DEPENDENCE 12/31/2017 Ot Z88.0 ROBBI RGY STATUS TO PENICILLIN 12/31/2017 Ot Z88.1 ROBBI RGY STATUS TO OTHER ANTIBIOTIC AGENT 12/31/2017 Ot Z88.8 ROBBI RGY STATUS TO OT DRUG/MEDS/BIOL SUB 12/31/2017 Ot Z95.1 PRES ENCE OF AORTOCORONARY BYPASS GRAFT 12/31/2017 Ot Z95.5 PRES ENCE OF CORONARY ANGIOPLASTY IMPLANT 12/31/2017 Ot Z98.61 COR ONARY ANGIOPLASTY STATUS 01/02/2018 Ot 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 01/02/2018 Ot E78.00 PUR E HYPERCHOLESTEROLEMIA, UNSPECIFIED 01/02/2018 Ot F41.9 ANXI ETY DISORDER, UNSPECIFIED 01/02/2018 Ot G47.30 SLE EP APNEA, UNSPECIFIED 01/02/2018 Ot I10 ESSENT IAL (PRIMARY) HYPERTENSION 01/02/2018 Ot I25.10 ATH SCL HEART DISEASE OF [place] CORONARY 01/02/2018 Ot I25.2 OLD MYOCARDIAL INFARCTION 01/02/2018 Ot I48.91 UNS PECIFIED ATRIAL FIBRILLATION 01/02/2018 Ot I73.9 RIO PHERAL VASCULAR DISEASE, UNSPECIFIED 01/02/2018 Ot J44.9 REPAIR CAMERAMAN RONEL OBSTRUCTIVE PULMONARY DISEASE, U 01/02/2018 Ot K21.9 ALEJA RO-ESOPHAGEAL REFLUX DISEASE WITHOUT 01/02/2018 Ot R07.89 OT ER CHEST PAIN 01/02/2018 Ot R10.11 RIG HT UPPER QUADRANT PAIN 01/02/2018 Ot Z79.01 CLAIRE G TERM (CURRENT) USE OF ANTICOAGULANT 01/02/2018 Ot 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.4 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) 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 OF 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 01/02/2018 Ot Z79.82 CLAIRE G TERM (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 01/02/2018 Ot Z82.49 FAM HUBERT HX OF ISCHEM HEART DIS AND OTH DI 01/02/2018 Ot 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), AND CEREB INFRC W 01/02/2018 Ot Z87.19 PER RAMIN HISTORY OF OTHER DISEASES OF TH 01/02/2018 Ot Z87.891 PE RSONAL HISTORY OF NICOTINE DEPENDENCE 01/02/2018 Ot Z88.0 ROBBI RGY STATUS TO PENICILLIN 01/02/2018 Ot Z88.1 ROBBI RGY STATUS TO OTHER ANTIBIOTIC AGENT 01/02/2018 Ot Z88.8 ROBBI RGY STATUS TO OTH DRUG/MEDS/BIOL SUB 01/02/2018 Ot Z95.1 PRES ENCE OF AORTOCORONARY BYPASS GRAFT 01/02/2018 Ot Z95.5 PRES ENCE OF CORONARY ANGIOPLASTY IMPLANT 01/02/2018 Ot Z98.61 COR ONARY ANGIOPLASTY STATUS 01/13/2018 JOSEE REICH Ot E11.9 TYPE 2 DIABETES MELLITUS WITHOUT COMPLIC 01/13/2018 JORGE LUIS REICHIS Ot E78.00 PURE HYPERCHOLESTEROLEMIA, UNSPECIFIED 01/13/2018 JORGE LUIS REICHIS Ot F41.9 ANXIETY DISORDER, UNSPECIFIED 01/13/2018 JORGE LUIS REICHIS Ot G47.30 SLEEP APNEA, UNSPECIFIED 01/13/2018 JORGE LUIS REICHIS Ot I10 ESSENTIAL (PRIMARY) HYPERTENSION 01/13/2018 OJSEE REICH Ot I25.10 ATHSCL HEART DISEASE OF [place] CORONARY 01/13/2018 JOSEE REICH Ot I25.2 OLD MYOCARDIAL INFARCTION 01/13/2018 JORGE LUIS REICHIS Ot I48.91 UNSPECIFIED ATRIAL FIBRILLATION 01/13/2018 JORGE LUIS REICHIS Ot I73.9 PERIPHERAL VASCULAR DISEASE, UNSPECIFIED 01/13/2018 JORGE LUIS REICHIS Ot J44.9 CHRONIC OBSTRUCTIVE PULMONARY DISEASE, U 01/13/2018 JORGE LUIS REICHIS Ot K21.9 GASTRO-ESOPHAGEAL REFLUX DISEASE WITHOUT 01/13/2018 JORGE LUIS REICHIS Ot R05 COUGH 01/13/2018 BERNOT, JOSEE Ot 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 01/13/2018 JORGE LUIS REICHIS Ot Z79.4 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) USE OF INSULIN 01/13/2018 JORGE LUIS REICHIS Ot Z79.82 SKILLED NURSING (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 01/13/2018 DAMIR JOSEE Ot Z82.49 FAMILY HX OF ISCHEM HEART DIS AND OTH DI 01/13/2018 JOSEE REICH Ot Z86.010 PERSONAL HISTORY OF COLONIC POLYPS 01/13/2018 JORGE LUIS REICHIS Ot Z86.73 PRSNL HX OF TIA (TIA), AND CEREB INFRC W 01/13/2018 JORGE LUIS REICHIS Ot Z87.19 PERSONAL HISTORY OF OTHER DISEASES OF TH 01/13/2018 JOSEE REICH Ot Z87.891 PERSONAL HISTORY OF NICOTINE DEPENDENCE 01/13/2018 JORGE LUIS REICHIS Ot Z88.0 ALLERGY STATUS TO PENICILLIN 01/13/2018 JORGE LUIS REICHIS Ot Z88.8 ALLERGY STATUS TO OTH DRUG/MEDS/BIOL SUB 01/13/2018 JORGE LUIS REICHIS Ot Z95.1 PRESENCE OF AORTOCORONARY BYPASS GRAFT 01/13/2018 JORGE LUIS REICHIS Ot 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 IMPLANT 01/13/2018 JORGE LUIS REICHIS Ot Z98.61 CORONARY ANGIOPLASTY STATUS 01/15/2018 JORGE LUIS REICHIS Ot E11.9 TYPE 2 DIABETES MELLITUS WITHOUT COMPLIC 01/15/2018 DAMIR JOSEE Ot E78.00 PURE HYPERCHOLESTEROLEMIA, UNSPECIFIED 01/15/2018 JORGE LUIS REICHIS Ot F41.9 ANXIETY DISORDER, UNSPECIFIED 01/15/2018 JORGE LUIS REICHIS Ot G47.30 SLEEP APNEA, UNSPECIFIED 01/15/2018 DAMIR JOSEE Ot I10 ESSENTIAL (PRIMARY) HYPERTENSION 01/15/2018 DAMIR JOSEE Ot I25.10 ATHSCL HEART DISEASE OF [place] CORONARY 01/15/2018 JORGE LUIS REICHIS Ot I25.2 OLD MYOCARDIAL INFARCTION 01/15/2018 JORGE LUIS REICHIS Ot I48.91 UNSPECIFIED ATRIAL FIBRILLATION 01/15/2018 DAMIR JOSEE Ot I73.9 PERIPHERAL VASCULAR DISEASE, UNSPECIFIED 01/15/2018 JORGE LUIS REICHIS Ot J44.9 CHRONIC OBSTRUCTIVE PULMONARY DISEASE, U 01/15/2018 JORGE LUIS REICHIS Ot K21.9 GASTRO-ESOPHAGEAL REFLUX DISEASE WITHOUT 01/15/2018 JOSEE REICH Ot R05 COUGH 01/15/2018 JOSEE REICH Ot 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 01/15/2018 JOSEE REICH Ot Z79.4 SKILLED NURSING (CURRENT) USE OF INSULIN 01/15/2018 JOSEE REICH Ot 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 01/15/2018 JOSEE REICH Ot Z82.49 FAMILY HX OF ISCHEM HEART DIS AND OTH DI 01/15/2018 JOSEE REICH Ot Z86.010 PERSONAL HISTORY OF COLONIC POLYPS 01/15/2018 JOSEE REICH Ot Z86.73 PRSNL HX OF TIA (TIA), AND CEREB INFRC W 01/15/2018 JOSEE REICH Ot Z87.19 PERSONAL HISTORY OF OTHER DISEASES OF TH 01/15/2018 JOSEE REICH Ot Z87.891 PERSONAL HISTORY OF NICOTINE DEPENDENCE 01/15/2018 JOSEE REICH Ot Z88.0 ALLERGY STATUS TO PENICILLIN 01/15/2018 JORGE LUIS REICHIS Ot Z88.8 ALLERGY STATUS TO OTH DRUG/MEDS/BIOL SUB 01/15/2018 JOSEE REICH Ot Z95.1 PRESENCE OF AORTOCORONARY BYPASS GRAFT 01/15/2018 JOSEE REICH Ot 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 IMPLANT 01/15/2018 JOSEE REICH Ot Z98.61 CORONARY ANGIOPLASTY STATUS 01/24/2018 EUGENE RIVERA ROMAIN K Ot D64.9 ANEMIA, UNSPECIFIED 01/24/2018 EUGENE RIVERA ROMAIN K Ot 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 DIABETIC REPAIR CAMERAMAN 01/24/2018 EUGENE RIVERA ROMAIN K Ot E11.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 W DIABETIC PERIPHERAL AN 01/24/2018 EUGENE DO ROMAIN K Ot E78.00 PURE HYPERCHOLESTEROLEMIA, UNSPECIFIED 01/24/2018 EUGENECristina RIVERA ROMAIN K Ot F41.9 ANXIETY DISORDER, UNSPECIFIED 01/24/2018 EUGENE RIVERA ROMAIN K Ot G47.30 SLEEP APNEA, UNSPECIFIED 01/24/2018 EUGENE DO ROMAIN K Ot I12.9 HYPERTENSIVE CHRONIC KIDNEY DISEASE W ST 01/24/2018 EUGENE RIVERA ROMAIN K Ot I25.10 ATHSCL HEART DISEASE OF [place] CORONARY 01/24/2018 EUGENE RIVERA ROMAIN K Ot I25.2 OLD MYOCARDIAL INFARCTION 01/24/2018 EUGENE DO ROMAIN Es Ot I48.91 UNSPECIFIED ATRIAL FIBRILLATION 01/24/2018 EUGENE DO ROMAIN Es Ot I73.9 PERIPHERAL VASCULAR DISEASE, UNSPECIFIED 01/24/2018 EUGENE RIVERA ROMAIN Es Ot I95.1 ORTHOSTATIC HYPOTENSION 01/24/2018 EUGENE RIVERA ROMAIN Es Ot J44.9 CHRONIC OBSTRUCTIVE PULMONARY DISEASE, U 01/24/2018 EUGENE DO ROMAIN Es Ot N18.9 CHRONIC KIDNEY DISEASE, UNSPECIFIED 01/24/2018 EUGENE RIVERA ROMAIN Es Ot R03.1 NONSPECIFIC LOW BLOOD-PRESSURE READING 01/24/2018 EUGENE RIVERA ROMAIN Es Ot Z79.01 SKILLED NURSING (CURRENT) USE OF ANTICOAGULANT 01/24/2018 ROMAIN KNIGHT DO Ot Z79.4 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) USE OF INSULIN 01/24/2018 ROMAIN KNIGHT DO Ot Z79.52 SKILLED NURSING (CURRENT) USE OF SYSTEMIC STER 01/24/2018 ROMAIN KNIGHT DO Ot Z79.82 SKILLED NURSING (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 01/24/2018 EUGENE RIVERA ROMAIN Es Ot Z82.49 FAMILY HX OF ISCHEM HEART DIS AND OTH DI 01/24/2018 ROMAIN KNIGHT DO Ot Z86.010 PERSONAL HISTORY OF COLONIC POLYPS 01/24/2018 ROMAIN KNIGHT DO Ot Z86.73 PRSNL HX OF TIA (TIA), AND CEREB INFRC W 01/24/2018 ROMAIN KNIGHT DO Ot Z87.19 PERSONAL HISTORY OF OTHER DISEASES OF TH 01/24/2018 ROMAIN KNIGHT DO Ot Z87.891 PERSONAL HISTORY OF NICOTINE DEPENDENCE 01/24/2018 ROMAIN KNIGHT DO Ot Z88.0 ALLERGY STATUS TO PENICILLIN 01/24/2018 ROMAIN KNIGHT DO Ot Z88.6 ALLERGY STATUS TO ANALGESIC AGENT STATUS 01/24/2018 ROMAIN KNIGHT DO Ot Z88.8 ALLERGY STATUS TO OT DRUG/MEDS/BIOL SUB 01/24/2018 ROMAIN KNIGHT DO Ot Z91.19 PATIENT'S NONCOMPLIANCE W OT MEDICAL TR 01/24/2018 ROMAIN KNIGHT DO Ot Z95.1 PRESENCE OF AORTOCORONARY BYPASS GRAFT 01/24/2018 EUGENE DO, ROMAIN K Ot 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 IMPLANT 01/24/2018 EUGENE DO, ROMAIN K Ot Z98.890 OTHER SPECIFIED POSTPROCEDURAL STATES 01/25/2018 SHARON DOUGHERTY, IRAJ Law Ot D50. 8 OTHER IRON DEFICIENCY ANEMIAS 01/25/2018 SHARON DOUGHERTY, IRAJ Law Ot I95. 89 OTHER HYPOTENSION 01/25/2018 SHARON DOUGHERTY, IRAJ Law Ot R53. 83 OTHER FATIGUE 01/28/2018 EUGENE DO, ROMAIN K Ot D64.9 ANEMIA, UNSPECIFIED 01/28/2018 EUGENE DO, ROMAIN K Ot 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 DIABETIC REPAIR CAMERAMAN 01/28/2018 EUGENE DO, ROMAIN K Ot E11.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 W DIABETIC PERIPHERAL AN 01/28/2018 EUGENE DO, ROMAIN K Ot E78.00 PURE HYPERCHOLESTEROLEMIA, UNSPECIFIED 01/28/2018 EUGENE DO, RMOAIN K Ot F41.9 ANXIETY DISORDER, UNSPECIFIED 01/28/2018 EUGENE DO, ROMAIN K Ot G47.30 SLEEP APNEA, UNSPECIFIED 01/28/2018 EUGENE DO, ROMAIN K Ot I12.9 HYPERTENSIVE CHRONIC KIDNEY DISEASE W ST 01/28/2018 EUGENE DO, ROMAIN K Ot I25.10 ATHSCL HEART DISEASE OF [place] CORONARY 01/28/2018 EUGENE DO, ROMAIN K Ot I25.2 OLD MYOCARDIAL INFARCTION 01/28/2018 EUGENE DO, ROMAIN K Ot I48.91 UNSPECIFIED ATRIAL FIBRILLATION 01/28/2018 EUGENE DO, ROMAIN K Ot I73.9 PERIPHERAL VASCULAR DISEASE, UNSPECIFIED 01/28/2018 EUGENE DO, ROMAIN K Ot I95.1 ORTHOSTATIC HYPOTENSION 01/28/2018 EUGENE DO, ROMAIN K Ot J44.9 CHRONIC OBSTRUCTIVE PULMONARY DISEASE, U 01/28/2018 EUGENE DO, ROMAIN K Ot N18.9 CHRONIC KIDNEY DISEASE, UNSPECIFIED 01/28/2018 EUGENE DO, ROMAIN K Ot R03.1 NONSPECIFIC LOW BLOOD-PRESSURE READING 01/28/2018 EUGENE DO, ROMAIN K Ot 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 01/28/2018 EUGENE DO, ROMAIN K Ot Z79.4 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) USE OF INSULIN 01/28/2018 EUGENE DO, ROMAIN K Ot Z79.52 SKILLED NURSING (CURRENT) USE OF SYSTEMIC STER 01/28/2018 EUGENE RIVERA ROMAIN K Ot Z79.82 SKILLED NURSING (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 01/28/2018 EUGENE RIVERA ROMAIN K Ot Z82.49 FAMILY HX OF ISCHEM HEART DIS AND OTH DI 01/28/2018 EUGENE RIVERA ROMAIN Es Ot Z86.010 PERSONAL HISTORY OF COLONIC POLYPS 01/28/2018 EUGENE RIVERAROMAIN Ot Z86.73 PRSNL HX OF TIA (TIA), AND CEREB INFRC W 01/28/2018 EUGENE RIVERA ROMAIN K Ot Z87.19 PERSONAL HISTORY OF OTHER DISEASES OF TH 01/28/2018 EUGENE DOGHANSHYAMA Es Ot Z87.891 PERSONAL HISTORY OF NICOTINE DEPENDENCE 01/28/2018 EUGENE ROMAIN K Ot Z88.0 ALLERGY STATUS TO PENICILLIN 01/28/2018 EUGENE ROMAIN K Ot Z88.6 ALLERGY STATUS TO ANALGESIC AGENT STATUS 01/28/2018 EUGENE ROMAIN Ot Z88.8 ALLERGY STATUS TO OT DRUG/MEDS/BIOL SUB 01/28/2018 EUGENE RIVERA ROMAIN K Ot Z91.19 PATIENT'S NONCOMPLIANCE W OT MEDICAL TR 01/28/2018 EUGENE RIVERA ROMAIN K Ot Z95.1 PRESENCE OF AORTOCORONARY BYPASS GRAFT 01/28/2018 EUGENE ROMAIN Ot 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 IMPLANT 01/28/2018 EUGENE ROMAIN Ot Z98.890 OTHER SPECIFIED POSTPROCEDURAL STATES 01/31/2018 Ot R05 COUGH 02/05/2018 Ot R05 COUGH 02/15/2018 SHARON DOUGHERTY, IRAJ Law Ot M48. 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 9 DISORDER OF BONE, UNSPECIFIED 03/08/2018 JOSEE REICH Ot E11.9 TYPE 2 DIABETES MELLITUS WITHOUT COMPLIC 03/08/2018 JOSEE REICH Ot E78.00 PURE HYPERCHOLESTEROLEMIA, UNSPECIFIED 03/08/2018 JOSEE REICH Ot F41.9 ANXIETY DISORDER, UNSPECIFIED 03/08/2018 JOSEE REICH Ot G47.30 SLEEP APNEA, UNSPECIFIED 03/08/2018 JOSEE REICH Ot I10 ESSENTIAL (PRIMARY) HYPERTENSION 03/08/2018 JOSEE REICH Ot I25.10 ATHSCL HEART DISEASE OF [place] CORONARY 03/08/2018 JOSEE REICH Ot I25.2 OLD MYOCARDIAL INFARCTION 03/08/2018 JOSEE REICH Ot I48.91 UNSPECIFIED ATRIAL FIBRILLATION 03/08/2018 JOSEE REICH Ot I73.9 PERIPHERAL VASCULAR DISEASE, UNSPECIFIED 03/08/2018 JOSEE REICH Ot I95.1 ORTHOSTATIC HYPOTENSION 03/08/2018 JOSEE REICH Ot J44.9 CHRONIC OBSTRUCTIVE PULMONARY DISEASE, U 03/08/2018 JOSEE REICH Ot R03.1 NONSPECIFIC LOW BLOOD-PRESSURE READING 03/08/2018 JOSEE REICH Ot 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 03/08/2018 JOSEE REICH Ot Z79.4 SKILLED NURSING (CURRENT) USE OF INSULIN 03/08/2018 JOSEE REICH Ot 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 03/08/2018 JOSEE REICH Ot Z82.49 FAMILY HX OF ISCHEM HEART DIS AND OTH DI 03/08/2018 JOSEE REICH Ot Z86.010 PERSONAL HISTORY OF COLONIC POLYPS 03/08/2018 JOSEE REICH Ot Z86.73 PRSNL HX OF TIA (TIA), AND CEREB INFRC W 03/08/2018 JOSEE REICH Ot Z87.19 PERSONAL HISTORY OF OTHER DISEASES OF TH 03/08/2018 JOSEE RECIH Ot Z87.448 PERSONAL HISTORY OF OTHER DISEASES OF UR 03/08/2018 JOSEE REICH Ot Z87.891 PERSONAL HISTORY OF NICOTINE DEPENDENCE 03/08/2018 JOSEE REICH Ot Z88.0 ALLERGY STATUS TO PENICILLIN 03/08/2018 JORGE LUIS REICHIS Ot Z88.6 ALLERGY STATUS TO ANALGESIC AGENT STATUS 03/08/2018 JOSEE REICH Ot Z88.8 ALLERGY STATUS TO OTH DRUG/MEDS/BIOL SUB 03/08/2018 JOSEE REICH Ot Z95.1 PRESENCE OF AORTOCORONARY BYPASS GRAFT 03/08/2018 JOSEE REICH Ot 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 IMPLANT 03/08/2018 JOSEE REICH Ot Z98.890 OTHER SPECIFIED POSTPROCEDURAL STATES 03/12/2018 BERNOT, JOSEE Ot E11.9 TYPE 2 DIABETES MELLITUS WITHOUT COMPLIC 03/12/2018 BERNAYLA, JOSEE Ot E78.00 PURE HYPERCHOLESTEROLEMIA, UNSPECIFIED 03/12/2018 BERNAYLA, JOSEE Ot F41.9 ANXIETY DISORDER, UNSPECIFIED 03/12/2018 BERNOT, JOSEE Ot G47.30 SLEEP APNEA, UNSPECIFIED 03/12/2018 BERNAYLA, JOSEE Ot I10 ESSENTIAL (PRIMARY) HYPERTENSION 03/12/2018 BERNAYLA JOSEE Ot I25.10 ATHSCL HEART DISEASE OF [place] CORONARY 03/12/2018 BERNAYLA JOSEE Ot I25.2 OLD MYOCARDIAL INFARCTION 03/12/2018 BERNAYLA JOSEE Ot I48.91 UNSPECIFIED ATRIAL FIBRILLATION 03/12/2018 DAMIR JOSEE Ot I73.9 PERIPHERAL VASCULAR DISEASE, UNSPECIFIED 03/12/2018 DAMIR JOSEE Ot I95.1 ORTHOSTATIC HYPOTENSION 03/12/2018 DAMIR JOSEE Ot J44.9 CHRONIC OBSTRUCTIVE PULMONARY DISEASE, U 03/12/2018 DAMIR JOSEE Ot R03.1 NONSPECIFIC LOW BLOOD-PRESSURE READING 03/12/2018 DAMIR JOSEE Ot Z79.01 SKILLED NURSING (CURRENT) USE OF ANTICOAGULANT 03/12/2018 DAMIR JOSEE Ot Z79.4 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) USE OF INSULIN 03/12/2018 DAMIR JOSEE Ot Z79.82 SKILLED NURSING (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 03/12/2018 DAMIR JOSEE Ot Z82.49 FAMILY HX OF ISCHEM HEART DIS AND OTH DI 03/12/2018 DAMIR JOSEE Ot Z86.010 PERSONAL HISTORY OF COLONIC POLYPS 03/12/2018 DAMIR JOSEE Ot Z86.73 PRSNL HX OF TIA (TIA), AND CEREB INFRC W 03/12/2018 DAMIR JOSEE Ot Z87.19 PERSONAL HISTORY OF OTHER DISEASES OF TH 03/12/2018 DAMIR JOSEE Ot Z87.448 PERSONAL HISTORY OF OTHER DISEASES OF UR 03/12/2018 DAMIR JOSEE Ot Z87.891 PERSONAL HISTORY OF NICOTINE DEPENDENCE 03/12/2018 DAMIR JOSEE Ot Z88.0 ALLERGY STATUS TO PENICILLIN 03/12/2018 DAMIR JOSEE Ot Z88.6 ALLERGY STATUS TO ANALGESIC AGENT STATUS 03/12/2018 DAMIR JOSEE Ot Z88.8 ALLERGY STATUS TO OTH DRUG/MEDS/BIOL SUB 03/12/2018 JOSEE REICH Ot Z95.1 PRESENCE OF AORTOCORONARY BYPASS GRAFT 03/12/2018 JOSEE REICH Ot 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 IMPLANT 03/12/2018 JOSEE REICH Ot Z98.890 OTHER SPECIFIED POSTPROCEDURAL STATES 03/12/2018 IRAJ HERRERA MD Ot M48. 12 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], CER 03/12/2018 IRAJ HERRERA MD Ot M89. 9 DISORDER OF BONE, UNSPECIFIED 03/17/2018 LEONARDO SALGADO APRN Ot E11 .9 TYPE 2 DIABETES MELLITUS WITHOUT COMPLIC 03/17/2018 LEONARDO SALGADO APRN Ot E78.00 PURE HYPERCHOLESTEROLEMIA, UNSPECIFIED 03/17/2018 LEONARDO SALGADO APRN Ot F41 .9 ANXIETY DISORDER, UNSPECIFIED 03/17/2018 LEONARDO SALGADO APRN Ot I10 ESSENTIAL (PRIMARY) HYPERTENSION 03/17/2018 LEONARDO SALGADO APRN Ot I25.10 ATHSCL HEART DISEASE OF [place] CORONARY 03/17/2018 LEONARDO SALGADO APRN Ot 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 03/17/2018 LEONARDO SALGADO APRN Ot I48.91 UNSPECIFIED ATRIAL FIBRILLATION 03/17/2018 LEONARDO SALGADO APRN Ot I95 .1 ORTHOSTATIC HYPOTENSION 03/17/2018 LEONARDO SALGADO APRN Ot I95 .9 HYPOTENSION, UNSPECIFIED 03/17/2018 LEONARDO SALGADO APRN Ot J44 .9 CHRONIC OBSTRUCTIVE PULMONARY DISEASE, U 03/17/2018 LEONARDO SALGADO APRN Ot K21 .9 GASTRO-ESOPHAGEAL REFLUX DISEASE WITHOUT 03/17/2018 LEONARDO SALGADO APRN Ot N40 .1 BENIGN PROSTATIC HYPERPLASIA WITH LOWER 03/17/2018 LEONARDO SALGADO APRN Ot 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 03/17/2018 LEONARDO SALGADO APRN Ot Z86.73 PRSNL HX OF TIA (TIA), AND CEREB INFRC W 03/17/2018 LEONARDO SALGADO APRN Ot Z88 .0 ALLERGY STATUS TO PENICILLIN 03/17/2018 LEONARDO SALGADO APRN Ot Z88 .1 ALLERGY STATUS TO OTHER ANTIBIOTIC AGENT 03/17/2018 LEONARDO SALGADO APRN Ot Z88 .6 ALLERGY STATUS TO ANALGESIC AGENT STATUS 03/17/2018 LEONARDO SALGADO APRN Ot Z88 .8 ALLERGY STATUS TO OTH DRUG/MEDS/BIOL SUB 03/17/2018 LEONADRO SALGADO APRN Ot 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 03/19/2018 LEONARDO SALGADO APRN Ot E11 .9 TYPE 2 DIABETES MELLITUS WITHOUT COMPLIC 03/19/2018 LEONARDO SALGADO APRN Ot E78.00 PURE HYPERCHOLESTEROLEMIA, UNSPECIFIED 03/19/2018 LEONARDO SALGADO APRN Ot F41 .9 ANXIETY DISORDER, UNSPECIFIED 03/19/2018 LEONARDO SALGADO APRN Ot I10 ESSENTIAL (PRIMARY) HYPERTENSION 03/19/2018 LEONARDO SALAGDO APRN Ot I25.10 ATHSCL HEART DISEASE OF [place] CORONARY 03/19/2018 LEONARDO SALGADO APRN Ot 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 03/19/2018 LEONARDO SALGADO APRN Ot I48.91 UNSPECIFIED ATRIAL FIBRILLATION 03/19/2018 LEONARDO SALGADO APRN Ot I95 .1 ORTHOSTATIC HYPOTENSION 03/19/2018 LEONARDO SALGADO APRN Ot I95 .9 HYPOTENSION, UNSPECIFIED 03/19/2018 LEONARDO SALGADO APRN Ot J44 .9 CHRONIC OBSTRUCTIVE PULMONARY DISEASE, U 03/19/2018 LEONARDO SALGADO APRN Ot K21 .9 GASTRO-ESOPHAGEAL REFLUX DISEASE WITHOUT 03/19/2018 LEONARDO SALGADO APRN Ot N40 .1 BENIGN PROSTATIC HYPERPLASIA WITH LOWER 03/19/2018 LEONARDO SALGADO APRN Ot 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 03/19/2018 LEONARDO SALGADO APRN Ot Z86.73 PRSNL HX OF TIA (TIA), AND CEREB INFRC W 03/19/2018 LEONARDO SALGADO APRN Ot Z88 .0 ALLERGY STATUS TO PENICILLIN 03/19/2018 LEONARDO SALGADO APRN Ot Z88 .1 ALLERGY STATUS TO OTHER ANTIBIOTIC AGENT 03/19/2018 LEONARDO SALGADO APRN Ot Z88 .6 ALLERGY STATUS TO ANALGESIC AGENT STATUS 03/19/2018 LEONARDO SALGADO APRN Ot Z88 .8 ALLERGY STATUS TO OTH DRUG/MEDS/BIOL SUB 03/19/2018 LEONARDO SALGADO APRN Ot 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 05/21/2018 JONATHAN DOUGHERTY, MATTEO R Ot I12 .9 HYPERTENSIVE CHRONIC KIDNEY DISEASE W ST 05/21/2018 JONATHAN DOUGHERTY, MATTEO R Ot N18 .3 CHRONIC KIDNEY DISEASE, STAGE 3 (MODERAT 05/23/2018 SHARON DOUGHERTY, IRAJ Law Ot M47.814 SPONDYLOSIS W/O MYELOPATHY OR RADICULOPA 05/23/2018 SHARON DOUGHERTY, IRAJ Law Ot M47.816 SPONDYLOSIS W/O MYELOPATHY OR RADICULOPA 05/23/2018 SHARON DOUGHERTY, IRAJ Law Ot Z87. 81 PERSONAL HISTORY OF (HEALED) TRAUMATIC F 05/28/2018 SHARON DOUGHERTY, IRAJ Law Ot M47.814 SPONDYLOSIS W/O MYELOPATHY OR RADICULOPA 05/28/2018 IRAJ HERRERA MD Ot M47.816 SPONDYLOSIS W/O MYELOPATHY OR RADICULOPA 05/28/2018 SHARON DOUGHERTY, IRAJ Law Ot Z87. 81 PERSONAL HISTORY OF (HEALED) TRAUMATIC F 06/13/2018 JONATHAN DOUGHERTY, MATTEO R Ot I12 .9 HYPERTENSIVE CHRONIC KIDNEY DISEASE W ST 06/13/2018 JONATHAN DOUGHERTY, MATTEO R Ot N18 .3 CHRONIC KIDNEY DISEASE, STAGE 3 (MODERAT 06/13/2018 SHARON DOUGHERTY, IRAJ Law Ot M47.814 SPONDYLOSIS W/O MYELOPATHY OR RADICULOPA 06/13/2018 SHARON DOUGHERTY, IRAJ Law Ot M47.816 SPONDYLOSIS W/O MYELOPATHY OR RADICULOPA 06/13/2018 SHARON DOUGHERTY, IRAJ Law Ot Z87. 81 PERSONAL HISTORY OF (HEALED) TRAUMATIC F 06/23/2018 FAMILIA JIMENES MD Ot E11. 9 TYPE 2 DIABETES MELLITUS WITHOUT COMPLIC 06/23/2018 FAMILIA JIMENES MD Ot E78. 00 PURE HYPERCHOLESTEROLEMIA, UNSPECIFIED 06/23/2018 FAMILIA JIMENES MD Ot F41. 9 ANXIETY DISORDER, UNSPECIFIED 06/23/2018 FAMILIA JIMENES MD Ot G47. 30 SLEEP APNEA, UNSPECIFIED 06/23/2018 FAMILIA JIMENES MD Ot I10 ESSENTIAL (PRIMARY) HYPERTENSION 06/23/2018 FAMILIA JIMENES MD Ot I25. 10 ATHSCL HEART DISEASE OF [place] CORONARY 06/23/2018 FAMILIA JIMENES MD Ot I25. 2 OLD MYOCARDIAL INFARCTION 06/23/2018 JALIL DOUGHERTY, FAMILIA Pacheco Ot I48. 91 UNSPECIFIED ATRIAL FIBRILLATION 06/23/2018 JALIL DOUGHERTY, FAMILAI Pacheco Ot I73. 9 PERIPHERAL VASCULAR DISEASE, UNSPECIFIED 06/23/2018 FAMILIA JIMENES MD Ot J44. 9 CHRONIC OBSTRUCTIVE PULMONARY DISEASE, U 06/23/2018 FAMILIA JIMENES MD Ot K21. 9 GASTRO-ESOPHAGEAL REFLUX DISEASE WITHOUT 06/23/2018 FAMILIA JIMENES MD Ot R51 HEADACHE 06/23/2018 JALIL DOUGHERTY, FAMILIA Pacheco Ot Z79. 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 49 FAMILY HX OF ISCHEM HEART DIS AND OTH DI 06/23/2018 FAMILIA JIMENES MD Ot Z86.010 PERSONAL HISTORY OF COLONIC POLYPS 06/23/2018 FAMILIA JIMENES MD Ot Z86. 73 PRSNL HX OF TIA (TIA), AND CEREB INFRC W 06/23/2018 JALIL DOUGHERTY FAMILIA Junior Ot Z87.448 PERSONAL HISTORY OF OTHER DISEASES OF UR 06/23/2018 JALIL DOUGHERTY FAMILIA Junior Ot Z87.891 PERSONAL HISTORY OF NICOTINE DEPENDENCE 06/23/2018 FAMILIA JIMENES MD Ot Z88. 0 ALLERGY STATUS TO PENICILLIN 06/23/2018 FAMILIA JIMENES MD Ot Z88. 6 ALLERGY STATUS TO ANALGESIC AGENT STATUS 06/23/2018 FAMILIA JIMENES MD Ot Z88. 8 ALLERGY STATUS TO [facility] DRUG/MEDS/BIOL SUB 06/23/2018 FAMILIA JIMENES MD Ot Z95. 1 PRESENCE OF AORTOCORONARY BYPASS GRAFT 06/23/2018 FAMILIA JIMENES MD Ot Z95. 5 PRESENCE OF CORONARY ANGIOPLASTY IMPLANT 06/23/2018 FAMILIA JIMENES MD Ot Z98. 61 CORONARY ANGIOPLASTY STATUS 06/23/2018 FAMILIA JIMENES MD Ot Z98.890 OTHER SPECIFIED POSTPROCEDURAL STATES 06/25/2018 FAMILIA JIMENES MD Ot E11. 9 TYPE 2 DIABETES MELLITUS WITHOUT COMPLIC 06/25/2018 FAMILIA JIMENES MD Ot E78. 00 PURE HYPERCHOLESTEROLEMIA, UNSPECIFIED 06/25/2018 JALIL DOUGHERTY FAMILIA Pacheco Ot F41. 9 ANXIETY DISORDER, UNSPECIFIED 06/25/2018 JALIL DOUGHERTY, FAMILIA Pacheco Ot G47. 30 SLEEP APNEA, UNSPECIFIED 06/25/2018 JALIL DOUGHERTY, FAMILIA Pacheco Ot I10 ESSENTIAL (PRIMARY) HYPERTENSION 06/25/2018 JALIL DOUGHERTY, FAMILIA Pacheco Ot I25. 10 ATHSCL HEART DISEASE OF [place] CORONARY 06/25/2018 JALIL DOUGHERTY, FAMILIA Pacheco Ot I25. 2 OLD MYOCARDIAL INFARCTION 06/25/2018 JALIL DOUGHERTY, FAMILIA Pacheco Ot I48. 91 UNSPECIFIED ATRIAL FIBRILLATION 06/25/2018 JALIL DOUGHERTY, FAMILIA Pacheco Ot I73. 9 PERIPHERAL VASCULAR DISEASE, UNSPECIFIED 06/25/2018 JALIL DOUGHERTY, FAMILIA Pacheco Ot J44. 9 CHRONIC OBSTRUCTIVE PULMONARY DISEASE, U 06/25/2018 JALLI DOUGHERTY, FAMILIA Pacheco Ot K21. 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 4 SKILLED NURSING (CURRENT) USE OF INSULIN 06/25/2018 JALIL DOUGHERTY, FAMILIA Pacheco Ot Z82. 49 FAMILY HX OF [place]HE[place] HEART DIS AND OTH DI 06/25/2018 FAMILIA JIMENES MD Ot Z86.010 PERSONAL HISTORY OF COLONIC POLYPS 06/25/2018 FAMILIA JIMENES MD Ot Z86. 73 PRSNL HX OF TIA (TIA), AND CEREB INFRC W 06/25/2018 FAMILIA JIMENES MD Ot Z87.448 PERSONAL HISTORY OF OTHER DISEASES OF UR 06/25/2018 JALIL DOUGHERTY, FAMILIA Pacheco Ot Z87.891 PERSONAL HISTORY OF NICOTINE DEPENDENCE 06/25/2018 JALIL DOUGHERTY, FAMILIA Pacheco Ot Z88. 0 ALLERGY STATUS TO PENICILLIN 06/25/2018 FAMILIA JIMENES MD Ot Z88. 6 ALLERGY STATUS TO ANALGESIC AGENT STATUS 06/25/2018 FAMILIA JIMENES MD Ot Z88. 8 ALLERGY STATUS TO OT DRUG/MEDS/BIOL SUB 06/25/2018 FAMILIA JIMENES MD Ot Z95. 1 PRESENCE OF AORTOCORONARY BYPASS GRAFT 06/25/2018 FAMILIA JIMENES MD Ot Z95. 5 PRESENCE OF CORONARY ANGIOPLASTY IMPLANT 06/25/2018 JALIL DOUGHERTY, FAMILIA Pacheco Ot Z98. 61 CORONARY ANGIOPLASTY STATUS 06/25/2018 JALIL DOUGHERTY, FAMILIA Pacheco Ot Z98.890 OTHER SPECIFIED POSTPROCEDURAL STATES 07/05/2018 SHARON DOUGHERTY, IRAJ Law Ot D50. 8 OTHER IRON DEFICIENCY ANEMIAS 07/05/2018 SHARON DOUGHERTY, IRAJ Law Ot I95. 89 OTHER HYPOTENSION 07/05/2018 SHARON DOUGHERTY, IRAJ Law Ot R53. 83 OTHER FATIGUE 07/18/2018 BISI GARCIA MD Ot E78. 5 HYPERLIPIDEMIA, UNSPECIFIED 07/18/2018 BISI GARCIA MD Ot I07. 1 RHEUMATIC TRICUSPID INSUFFICIENCY 07/18/2018 BISI GARCIA MD Ot I25. 10 ATHSCL HEART DISEASE OF [place] CORONARY 07/18/2018 BISI GARCIA MD Ot I48. 0 PAROXYSMAL ATRIAL FIBRILLATION 07/18/2018 BISI GARCIA MD Ot I73. 9 PERIPHERAL VASCULAR DISEASE, UNSPECIFIED 07/18/2018 BISI GARCIA MD Ot K21. 9 GASTRO-ESOPHAGEAL REFLUX DISEASE WITHOUT 07/24/2018 RODOLFO CUELLO MD Ot E11.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 W DIABETIC PERIPHERAL AN 07/24/2018 RODOLFO CUELLO MD Ot E78.00 PURE HYPERCHOLESTEROLEMIA, UNSPECIFIED 07/24/2018 RODOLFO CUELLO MD Ot F41.9 ANXIETY DISORDER, UNSPECIFIED 07/24/2018 RODOLFO CUELLO MD Ot G47.30 SLEEP APNEA, UNSPECIFIED 07/24/2018 RODOLFO CUELLO MD Ot I10 ESSENTIAL (PRIMARY) HYPERTENSION 07/24/2018 RODOLFO CUELLO MD Ot I25.10 ATHSCL HEART DISEASE OF [place] CORONARY 07/24/2018 RODOLFO CUELLO MD Ot I25.2 OLD MYOCARDIAL INFARCTION 07/24/2018 RODOLFO CUELLO MD Ot I48.0 PAROXYSMAL ATRIAL FIBRILLATION 07/24/2018 RODOLFO CUELLO MD Ot I73.9 PERIPHERAL VASCULAR DISEASE, UNSPECIFIED 07/24/2018 RODOLFO CUELLO MD Ot J44.9 CHRONIC OBSTRUCTIVE PULMONARY DISEASE, U 07/24/2018 RODOLFO CUELLO MD, Ot K21.9 GASTRO-ESOPHAGEAL REFLUX DISEASE WITHOUT 07/24/2018 RODOLFO CUELLO MD, Ot R10.13 EPIGASTRIC PAIN 07/24/2018 RODOLFO CUELLO MD, Ot Z79.01 SKILLED NURSING (CURRENT) USE OF ANTICOAGULANT 07/24/2018 RODOLFO CUELLO MD, Ot Z79.4 SKILLED NURSING (CURRENT) USE OF INSULIN 07/24/2018 RODOLFO CUELLO MD, Ot Z80.3 FAMILY HISTORY OF MALIGNANT NEOPLASM OF 07/24/2018 RODOLFO CUELLO MD, Ot Z82.49 FAMILY HX OF ISCHEM HEART DIS AND OTH DI 07/24/2018 RODOLFO CUELLO MD, Ot Z86.010 PERSONAL HISTORY OF COLONIC POLYPS 07/24/2018 RODOLFO CUELLO MD, Ot Z86.73 PRSNL HX OF TIA (TIA), AND CEREB INFRC W 07/24/2018 RODOLFO CUELLO MD, Ot Z87.19 PERSONAL HISTORY OF OTHER DISEASES OF TH 07/24/2018 RODOLFO CUELLO MD, Ot Z87.448 PERSONAL HISTORY OF OTHER DISEASES OF UR 07/24/2018 RODOLFO CUELLO MD, Ot Z87.891 PERSONAL HISTORY OF NICOTINE DEPENDENCE 07/24/2018 RODOLFO CUELLO MD, Ot Z88.0 ALLERGY STATUS TO PENICILLIN 07/24/2018 RODOLFO CUELLO MD, Ot Z88.8 ALLERGY STATUS TO OT DRUG/MEDS/BIOL SUB 07/24/2018 RODOLFO CUELLO MD, Ot Z95.1 PRESENCE OF AORTOCORONARY BYPASS GRAFT 07/24/2018 RODOLFO CUELLO MD, Ot 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 IMPLANT 07/24/2018 RODOLFO CUELLO MD, Ot Z98.890 OTHER SPECIFIED POSTPROCEDURAL STATES 07/26/2018 RODOLFO CUELLO MD, Ot E11.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 W DIABETIC PERIPHERAL AN 07/26/2018 RODOLFO CUELLO MD, Ot E78.00 PURE HYPERCHOLESTEROLEMIA, UNSPECIFIED 07/26/2018 BRUEGGEMANN MD, RODOLFO T Ot F41.9 ANXIETY DISORDER, UNSPECIFIED 07/26/2018 RODOLFO CUELLO MD Ot G47.30 SLEEP APNEA, UNSPECIFIED 07/26/2018 RODOLFO CUELLO MD Ot I10 ESSENTIAL (PRIMARY) HYPERTENSION 07/26/2018 RODOLFO CUELLO MD Ot I25.10 ATHSCL HEART DISEASE OF [place] CORONARY 07/26/2018 RODOLFO CUELLO MD, Ot I25.2 OLD MYOCARDIAL INFARCTION 07/26/2018 RODOLFO CUELLO MD Ot I48.0 PAROXYSMAL ATRIAL FIBRILLATION 07/26/2018 RODOLFO CUELLO MD Ot I73.9 PERIPHERAL VASCULAR DISEASE, UNSPECIFIED 07/26/2018 RODOLFO CUELLO MD, Ot J44.9 CHRONIC OBSTRUCTIVE PULMONARY DISEASE, U 07/26/2018 RODOLFO CUELLO MD, Ot K21.9 GASTRO-ESOPHAGEAL REFLUX DISEASE WITHOUT 07/26/2018 RODOLFO CUELLO MD Ot R10.13 EPIGASTRIC PAIN 07/26/2018 RODOLFO CUELLO MD, Ot Z79.01 SKILLED NURSING (CURRENT) USE OF ANTICOAGULANT 07/26/2018 RODOLFO CUELLO MD, Ot Z79.4 SKILLED NURSING (CURRENT) USE OF INSULIN 07/26/2018 RODOLFO CUELLO MD, Ot Z80.3 FAMILY HISTORY OF MALIGNANT NEOPLASM OF 07/26/2018 RODOLFO CUELLO MD Ot Z82.49 FAMILY HX OF [place]HE[place] HEART DIS AND OTH DI 07/26/2018 RODOLFO CUELLO MD Ot Z86.010 PERSONAL HISTORY OF COLONIC POLYPS 07/26/2018 RODOLFO CUELLO MD, Ot Z86.73 PRSNL HX OF TIA (TIA), AND CEREB INFRC W 07/26/2018 RODOLFO CUELLO MD, Ot Z87.19 PERSONAL HISTORY OF OTHER DISEASES OF TH 07/26/2018 RODOLFO CUELLO MD, Ot Z87.448 PERSONAL HISTORY OF OTHER DISEASES OF UR 07/26/2018 RODOLFO CUELLO MD Ot Z87.891 PERSONAL HISTORY OF NICOTINE DEPENDENCE 07/26/2018 BRUEGGEMANN MD, RODOLFO T Ot Z88.0 ALLERGY STATUS TO PENICILLIN 07/26/2018 KHUSHBOO DOUGHERTY, RODOLFO Mendieta Ot Z88.8 ALLERGY STATUS TO OTH DRUG/MEDS/BIOL SUB 07/26/2018 KHUSHBOO DOUGHERTY, RODOLFO Mendieta Ot Z95.1 PRESENCE OF AORTOCORONARY BYPASS GRAFT 07/26/2018 KHUSHBOO DOUGHERTY, RODOLFO Mendieta Ot 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 IMPLANT 07/26/2018 KHUSHBOO DOUGHERTY, RODOLFO Mendieta Ot Z98.890 OTHER SPECIFIED POSTPROCEDURAL STATES 07/31/2018 EUGENE DO, ROMAIN K Ot E11.43 TYPE 2 DIABETES W DIABETIC AUTONOMIC (PO 07/31/2018 EUGENE DO, ROMAIN K Ot E11.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 W DIABETIC PERIPHERAL AN 07/31/2018 EUGENE DO, ROMAIN K Ot E78.00 PURE HYPERCHOLESTEROLEMIA, UNSPECIFIED 07/31/2018 EUGENE DO, ROMAIN K Ot F41.9 ANXIETY DISORDER, UNSPECIFIED 07/31/2018 EUGENE DO, ROMAIN K Ot G47.30 SLEEP APNEA, UNSPECIFIED 07/31/2018 EUGENE DO, ROMAIN K Ot I10 ESSENTIAL (PRIMARY) HYPERTENSION 07/31/2018 EUGENE DO, ROMAIN K Ot I25.10 ATHSCL HEART DISEASE OF [place] CORONARY 07/31/2018 EUGENE DO, ROMAIN K Ot I25.2 OLD MYOCARDIAL INFARCTION 07/31/2018 EUGENE DO, ROMAIN K Ot I48.91 UNSPECIFIED ATRIAL FIBRILLATION 07/31/2018 EUGENE DO, ROMAIN K Ot I73.9 PERIPHERAL VASCULAR DISEASE, UNSPECIFIED 07/31/2018 EUGENE DO, ROMAIN K Ot J44.9 CHRONIC OBSTRUCTIVE PULMONARY DISEASE, U 07/31/2018 EUGENE DO, ROMAIN K Ot K21.9 GASTRO-ESOPHAGEAL REFLUX DISEASE WITHOUT 07/31/2018 EUGENE DO, ROMAIN K Ot K31.84 GASTROPARESIS 07/31/2018 EUGENE DO, ROMAIN K Ot K31.89 OTHER DISEASES OF STOMACH AND DUODENUM 07/31/2018 EUGENE DO, ROMAIN K Ot R10.9 UNSPECIFIED ABDOMINAL PAIN 07/31/2018 EUGENE DO, ROMAIN K Ot 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 07/31/2018 EUGENE DO, ROMAIN K Ot Z79.4 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) USE OF INSULIN 07/31/2018 ROMAIN KNIGHT DO Ot Z82.49 FAMILY HX OF I[place]HEM HEART DIS AND OTH DI 07/31/2018 ROMAIN KNIGHT DO Ot Z86.010 PERSONAL HISTORY OF COLONIC POLYPS 07/31/2018 ROMAIN KNIGHT DO Ot Z86.73 PRSNL HX OF TIA (TIA), AND CEREB INFRC W 07/31/2018 ROMAIN KNIGHT DO Ot Z87.19 PERSONAL HISTORY OF OTHER DISEASES OF TH 07/31/2018 ROMAIN KNIGHT DO Ot Z87.448 PERSONAL HISTORY OF OTHER DISEASES OF UR 07/31/2018 ROMAIN KNIGHT DO Ot Z87.891 PERSONAL HISTORY OF NICOTINE DEPENDENCE 07/31/2018 ROMAIN KNIGHT DO Ot Z88.0 ALLERGY STATUS TO PENICILLIN 07/31/2018 ROMAIN KNIGHT DO Ot Z88.1 ALLERGY STATUS TO OTHER ANTIBIOTIC AGENT 07/31/2018 ROMAIN KNIGHT DO Ot Z88.8 ALLERGY STATUS TO OTH DRUG/MEDS/BIOL SUB 07/31/2018 ROMAIN KNIGHT DO Ot Z95.1 PRESENCE OF AORTOCORONARY BYPASS GRAFT 07/31/2018 ROMAIN KNIGHT DO Ot 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 IMPLANT 07/31/2018 ROMAIN KNIGHT DO Ot Z98.890 OTHER SPECIFIED POSTPROCEDURAL STATES 08/03/2018 ROMAIN KNIGHT DO Ot E11.43 TYPE 2 DIABETES W DIABETIC AUTONOMIC (PO 08/03/2018 ROMAIN KNIGHT DO Ot E11.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 W DIABETIC PERIPHERAL AN 08/03/2018 ROMAIN KNIGHT DO Ot E78.00 PURE HYPERCHOLESTEROLEMIA, UNSPECIFIED 08/03/2018 ROMAIN KNIGHT DO Ot F41.9 ANXIETY DISORDER, UNSPECIFIED 08/03/2018 ROMAIN KNIGHT DO Ot G47.30 SLEEP APNEA, UNSPECIFIED 08/03/2018 ROMAIN KNIGHT DO Ot I10 ESSENTIAL (PRIMARY) HYPERTENSION 08/03/2018 ROMAIN KNIGHT DO Ot I25.10 ATHSCL HEART DISEASE OF [place] CORONARY 08/03/2018 ROMAIN KNIGHT DO Ot I25.2 OLD MYOCARDIAL INFARCTION 08/03/2018 ROMAIN KNIGHT DO Ot I48.91 UNSPECIFIED ATRIAL FIBRILLATION 08/03/2018 EUGENE RIVERA ROMAIN K Ot I73.9 PERIPHERAL VASCULAR DISEASE, UNSPECIFIED 08/03/2018 EUGENE RIVERAROMAIN Ot J44.9 CHRONIC OBSTRUCTIVE PULMONARY DISEASE, U 08/03/2018 EUGENE RIVERAROMAIN Ot K21.9 GASTRO-ESOPHAGEAL REFLUX DISEASE WITHOUT 08/03/2018 EUGENE RIVERA ROMAIN K Ot K31.84 GASTROPARESIS 08/03/2018 EUGENE RIVERA ROMAIN K Ot K31.89 OTHER DISEASES OF STOMACH AND DUODENUM 08/03/2018 EUGENE RIVERAROMAIN Ot R10.9 UNSPECIFIED ABDOMINAL PAIN 08/03/2018 EUGENE RIVERA ROMAIN K Ot 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 08/03/2018 EUGENE DOROMAIN Ot Z79.4 SKILLED NURSING (CURRENT) USE OF INSULIN 08/03/2018 EUGENE RIVERAROMAIN Ot Z82.49 FAMILY HX OF ISCHEM HEART DIS AND OTH DI 08/03/2018 EUGENE DOROMAIN Ot Z86.010 PERSONAL HISTORY OF COLONIC POLYPS 08/03/2018 EUGENE DOROMAIN Ot Z86.73 PRSNL HX OF TIA (TIA), AND CEREB INFRC W 08/03/2018 EUGENE RIVERAROMAIN Ot Z87.19 PERSONAL HISTORY OF OTHER DISEASES OF TH 08/03/2018 EUGENE DOROMAIN Ot Z87.448 PERSONAL HISTORY OF OTHER DISEASES OF UR 08/03/2018 EUGENE RIVERAROMAIN Ot Z87.891 PERSONAL HISTORY OF NICOTINE DEPENDENCE 08/03/2018 EUGENE DOROMAIN Ot Z88.0 ALLERGY STATUS TO PENICILLIN 08/03/2018 ROMAIN KNIGHT DO Ot Z88.1 ALLERGY STATUS TO OTHER ANTIBIOTIC AGENT 08/03/2018 EUGENE ROMAIN RIVERA Ot Z88.8 ALLERGY STATUS TO OTH DRUG/MEDS/BIOL SUB 08/03/2018 ROMAIN KNIGHT DO Ot Z95.1 PRESENCE OF AORTOCORONARY BYPASS GRAFT 08/03/2018 ROMAIN KNIGHT DO Ot 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 IMPLANT 08/03/2018 ROMAIN KNIGHT DO Ot Z98.890 OTHER SPECIFIED POSTPROCEDURAL STATES 08/07/2018 JOSE DOUGHERTY, BISI Colon Ot E78. 5 HYPERLIPIDEMIA, UNSPECIFIED 08/07/2018 BISI GARCIA MD Ot I07. 1 RHEUMATIC TRICUSPID INSUFFICIENCY 08/07/2018 BISI GARCIA MD Ot I25. 10 ATHSCL HEART DISEASE OF [place] CORONARY 08/07/2018 BISI GARCIA MD Ot I48. 0 PAROXYSMAL ATRIAL FIBRILLATION 08/07/2018 BISI GARCIA MD Ot I73. 9 PERIPHERAL VASCULAR DISEASE, UNSPECIFIED 08/07/2018 BISI GARCIA MD Ot K21. 9 GASTRO-ESOPHAGEAL REFLUX DISEASE WITHOUT 08/13/2018 CHARO SCHNEIDER MD Ot E11.43 TYPE 2 DIABETES W DIABETIC AUTONOMIC (PO 08/13/2018 CHARO SCHNEIDER MD Ot E78.00 PURE HYPERCHOLESTEROLEMIA, UNSPECIFIED 08/13/2018 CHARO SCHNEIDER MD, Ot F41.9 ANXIETY DISORDER, UNSPECIFIED 08/13/2018 CHARO SCHNEIDER MD Ot G47.30 SLEEP APNEA, UNSPECIFIED 08/13/2018 CHARO SCHNEIDER MD Ot I10 ESSENTIAL (PRIMARY) HYPERTENSION 08/13/2018 CHARO SCHNEIDER MD, Ot I25.10 ATHSCL HEART DISEASE OF [place] CORONARY 08/13/2018 CHARO SCHNEIDER MD Ot I25.2 OLD MYOCARDIAL INFARCTION 08/13/2018 CHARO SCHNEIDER MD Ot I48.91 UNSPECIFIED ATRIAL FIBRILLATION 08/13/2018 CHARO SCHNEIDER MD Ot I73.9 PERIPHERAL VASCULAR DISEASE, UNSPECIFIED 08/13/2018 CHARO SCHNEIDER MD, Ot J44.9 CHRONIC OBSTRUCTIVE PULMONARY DISEASE, U 08/13/2018 CHARO SCHNEIDER MD Ot K21.9 GASTRO-ESOPHAGEAL REFLUX DISEASE WITHOUT 08/13/2018 CHARO SCHNEIDER MD Ot K31.84 GASTROPARESIS 08/13/2018 CHARO SCHNEIDER MD Ot R03.1 NONSPECIFIC LOW BLOOD-PRESSURE READING 08/13/2018 CHARO SCHNEIDER MD Ot 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 08/13/2018 CHARO SCHNEIDER MD Ot Z79.4 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) USE OF INSULIN 08/13/2018 CHARO SCHNEIDER MD Ot Z82.49 FAMILY HX OF ISCHEM HEART DIS AND OTH DI 08/13/2018 CHARO SCHNEIDER MD, Ot Z86.010 PERSONAL HISTORY OF COLONIC POLYPS 08/13/2018 CHARO SCHNEIDER MD Ot Z86.73 PRSNL HX OF TIA (TIA), AND CEREB INFRC W 08/13/2018 CHARO SCHNEIDER MD Ot Z87.19 PERSONAL HISTORY OF OTHER DISEASES OF TH 08/13/2018 CHARO SCHNEIDER MD Ot Z87.448 PERSONAL HISTORY OF OTHER DISEASES OF UR 08/13/2018 CHARO SCHNEIDER MD Ot Z87.891 PERSONAL HISTORY OF NICOTINE DEPENDENCE 08/13/2018 CHARO SCHNEIDER MD Ot Z88.0 ALLERGY STATUS TO PENICILLIN 08/13/2018 CHARO SCHNEIDER MD, Ot Z88.1 ALLERGY STATUS TO OTHER ANTIBIOTIC AGENT 08/13/2018 CHARO SCHNEIDER MD, Ot Z88.8 ALLERGY STATUS TO OTH DRUG/MEDS/BIOL SUB 08/13/2018 CHARO SCHNEIDER MD Ot Z95.1 PRESENCE OF AORTOCORONARY BYPASS GRAFT 08/13/2018 CHARO SCHNEIDER MD Ot 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 IMPLANT 08/13/2018 CHARO SCHNEIDER MD Ot Z98.1 ARTHRODESIS STATUS 08/13/2018 CHARO SCHNEIDER MD Ot Z98.890 OTHER SPECIFIED POSTPROCEDURAL STATES 08/19/2018 CHARO SCHNEIDER MD Ot E11.43 TYPE 2 DIABETES W DIABETIC AUTONOMIC (PO 08/19/2018 CHARO SCHNEIDER MD Ot E78.00 PURE HYPERCHOLESTEROLEMIA, UNSPECIFIED 08/19/2018 CHARO SCHNEIDER MD Ot F41.9 ANXIETY DISORDER, UNSPECIFIED 08/19/2018 CHARO SCHNEIDER MD Ot G47.30 SLEEP APNEA, UNSPECIFIED 08/19/2018 CHARO SCHNEIDER MD Ot I10 ESSENTIAL (PRIMARY) HYPERTENSION 08/19/2018 CHARO SCHNEIDER MD Ot I25.10 ATHSCL HEART DISEASE OF [place] CORONARY 08/19/2018 CHARO SCHNEIDER MD Ot 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 MYOCARDIAL INFARCTION 08/19/2018 CHARO SCHNEIDER MD Ot I48.91 UNSPECIFIED ATRIAL FIBRILLATION 08/19/2018 CHARO SCHNEIDER MD Ot I73.9 PERIPHERAL VASCULAR DISEASE, UNSPECIFIED 08/19/2018 CHARO SCHNEIDER MD, Ot J44.9 CHRONIC OBSTRUCTIVE PULMONARY DISEASE, U 08/19/2018 CHARO SCHNEIDER MD, Ot K21.9 GASTRO-ESOPHAGEAL REFLUX DISEASE WITHOUT 08/19/2018 CHARO SCHNEIDER MD, Ot K31.84 GASTROPARESIS 08/19/2018 CHARO SCHNEIDER MD, Ot R03.1 NONSPECIFIC LOW BLOOD-PRESSURE READING 08/19/2018 CHARO SCHNEIDER MD, Ot Z79.01 SKILLED NURSING (CURRENT) USE OF ANTICOAGULANT 08/19/2018 CHARO SCHNEIDER MD, Ot Z79.4 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) USE OF INSULIN 08/19/2018 CHARO SCHNEIDER MD, Ot Z82.49 FAMILY HX OF ISCHEM HEART DIS AND OTH DI 08/19/2018 CHARO SCHNEIDER MD, Ot Z86.010 PERSONAL HISTORY OF COLONIC POLYPS 08/19/2018 CHARO SCHNEIDER MD, Ot Z86.73 PRSNL HX OF TIA (TIA), AND CEREB INFRC W 08/19/2018 CHARO SCHNEIDER MD, Ot Z87.19 PERSONAL HISTORY OF OTHER DISEASES OF TH 08/19/2018 CHARO SCHNEIDER MD, Ot Z87.448 PERSONAL HISTORY OF OTHER DISEASES OF UR 08/19/2018 CHARO SCHNEIDER MD, Ot Z87.891 PERSONAL HISTORY OF NICOTINE DEPENDENCE 08/19/2018 CHARO SCHNEIDER MD Ot Z88.0 ALLERGY STATUS TO PENICILLIN 08/19/2018 CHARO SCHNEIDER MD, Ot Z88.1 ALLERGY STATUS TO OTHER ANTIBIOTIC AGENT 08/19/2018 CHARO SCHNEIDER MD, Ot Z88.8 ALLERGY STATUS TO [facility] DRUG/MEDS/BIOL SUB 08/19/2018 CHARO SCHNEIDER MD Ot Z95.1 PRESENCE OF AORTOCORONARY BYPASS GRAFT 08/19/2018 CHARO SCHNEIDER MD Ot 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 IMPLANT 08/19/2018 CHARO SCHNEIDER MD, Ot Z98.1 ARTHRODESIS STATUS 08/19/2018 CHARO SCHNEIDER MD, Ot Z98.890 OTHER SPECIFIED POSTPROCEDURAL STATES 08/22/2018 SHARON DOUGHERTY, IRAJ Law Ot D50. 8 OTHER IRON DEFICIENCY ANEMIAS 08/22/2018 IRAJ HERRERA MD Ot I95. 89 OTHER HYPOTENSION 08/22/2018 IRAJ HERRERA MD Ot R53. 83 OTHER FATIGUE 08/23/2018 IRAJ HERRERA MD Ot D50. 8 OTHER IRON DEFICIENCY ANEMIAS 08/23/2018 IRAJ HERRERA MD Ot I95. 89 OTHER HYPOTENSION 08/23/2018 IRAJ HERRERA MD Ot R53. 83 OTHER FATIGUE 09/21/2018 JENNIE DOUGHERTY, CHARO Fletcher Ot R69 ILLNESS, UNSPECIFIED 09/24/2018 JENNIE DOUGHERTY, CHARO Fletcher Ot R69 ILLNESS, UNSPECIFIED 10/27/2018 MARY MENDEZ THEATRE MANAGER Ot E11.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 W DIABETIC PERIPHERAL AN 10/27/2018 VANESSA MARY THEATRE MANAGER Ot E11.65 TYPE 2 DIABETES MELLITUS WITH HYPERGLYCE 10/27/2018 VANESSA MARY THEATRE MANAGER Ot E78.00 PURE HYPERCHOLESTEROLEMIA, UNSPECIFIED 10/27/2018 VANESSA, MARY THEATRE MANAGER Ot F41.9 ANXIETY DISORDER, UNSPECIFIED 10/27/2018 VANESSA MARY THEATRE MANAGER Ot G47.30 SLEEP APNEA, UNSPECIFIED 10/27/2018 VANESSA MARY THEATRE MANAGER Ot I10 ESSENTIAL (PRIMARY) HYPERTENSION 10/27/2018 VANESSA MARY THEATRE MANAGER Ot I20.8 OTHER FORMS OF ANGINA PECTORIS 10/27/2018 VANESSA MARY THEATRE MANAGER Ot I25.10 ATHSCL HEART DISEASE OF [place] CORONARY 10/27/2018 VANESSA MARY THEATRE MANAGER Ot I25.2 OLD MYOCARDIAL INFARCTION 10/27/2018 VANESSA MARY THEATRE MANAGER Ot I48.91 UNSPECIFIED ATRIAL FIBRILLATION 10/27/2018 VANESSA MARY THEATRE MANAGER Ot I73.9 PERIPHERAL VASCULAR DISEASE, UNSPECIFIED 10/27/2018 VANESSA MARY THEATRE MANAGER Ot J44.9 CHRONIC OBSTRUCTIVE PULMONARY DISEASE, U 10/27/2018 VANESSA MARY THEATRE MANAGER Ot K21.9 GASTRO-ESOPHAGEAL REFLUX DISEASE WITHOUT 10/27/2018 MARY MENDEZ THEATRE MANAGER Ot R07.2 PRECORDIAL PAIN 10/27/2018 MARY MENDEZ THEATRE MANAGER Ot 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 10/27/2018 MARY MENDEZ THEATRE MANAGER Ot Z79.4 SKILLED NURSING (CURRENT) USE OF INSULIN 10/27/2018 MARY MENDEZ THEATRE MANAGER Ot Z82.49 FAMILY HX OF ISCHEM HEART DIS AND OTH DI 10/27/2018 VANESSAMARY SpearsP Ot Z86.010 PERSONAL HISTORY OF COLONIC POLYPS 10/27/2018 VANESSAMARY Spears THEATRE MANAGER Ot Z86.73 PRSNL HX OF TIA (TIA), AND CEREB INFRC W 10/27/2018 MARY MENDEZ THEATRE MANAGER Ot Z87.448 PERSONAL HISTORY OF OTHER DISEASES OF UR 10/27/2018 VANESSAMARY Spears THEATRE MANAGER Ot Z87.891 PERSONAL HISTORY OF NICOTINE DEPENDENCE 10/27/2018 VANESSAMARY Spears THEATRE MANAGER Ot Z88.0 ALLERGY STATUS TO PENICILLIN 10/27/2018 VANESSA, MARY THEATRE MANAGER Ot Z88.1 ALLERGY STATUS TO OTHER ANTIBIOTIC AGENT 10/27/2018 VANESSAMARY Spears THEATRE MANAGER Ot Z88.8 ALLERGY STATUS TO [facility] DRUG/MEDS/BIOL SUB 10/27/2018 VANESSAMARY SpearsP Ot Z95.1 PRESENCE OF AORTOCORONARY BYPASS GRAFT 10/27/2018 MARY MENDEZ THEATRE MANAGER Ot 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 IMPLANT 10/27/2018 MARY MENDEZP Ot Z98.1 ARTHRODESIS STATUS 10/27/2018 MARY MENDEZ THEATRE MANAGER Ot Z98.890 OTHER SPECIFIED POSTPROCEDURAL STATES 10/30/2018 MARY MENDEZ THEATRE MANAGER Ot E11.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 W DIABETIC PERIPHERAL AN 10/30/2018 VANESSA MARY THEATRE MANAGER Ot E11.65 TYPE 2 DIABETES MELLITUS WITH HYPERGLYCE 10/30/2018 VANESSA MARY THEATRE MANAGER Ot E78.00 PURE HYPERCHOLESTEROLEMIA, UNSPECIFIED 10/30/2018 VANESSA MARY THEATRE MANAGER Ot F41.9 ANXIETY DISORDER, UNSPECIFIED 10/30/2018 VANESSA MARY THEATRE MANAGER Ot G47.30 SLEEP APNEA, UNSPECIFIED 10/30/2018 VANESSA MARY THEATRE MANAGER Ot I10 ESSENTIAL (PRIMARY) HYPERTENSION 10/30/2018 VANESSA MARY THEATRE MANAGER Ot I20.8 OTHER FORMS OF ANGINA PECTORIS 10/30/2018 MARY MENDEZ THEATRE MANAGER Ot I25.10 ATHSCL HEART DISEASE OF [place] CORONARY 10/30/2018 VANESSA MARY THEATRE MANAGER Ot I25.2 OLD MYOCARDIAL INFARCTION 10/30/2018 MARY MENDEZ THEATRE MANAGER Ot I48.91 UNSPECIFIED ATRIAL FIBRILLATION 10/30/2018 MARY MENDEZ THEATRE MANAGER Ot I73.9 PERIPHERAL VASCULAR DISEASE, UNSPECIFIED 10/30/2018 VANESSA, MARY THEATRE MANAGER Ot J44.9 CHRONIC OBSTRUCTIVE PULMONARY DISEASE, U 10/30/2018 VANESSAMARY SpearsP Ot K21.9 GASTRO-ESOPHAGEAL REFLUX DISEASE WITHOUT 10/30/2018 MARY MENDEZP Ot R07.2 PRECORDIAL PAIN 10/30/2018 VANESSAMARY Spears Ot Z79.01 SKILLED NURSING (CURRENT) USE OF ANTICOAGULANT 10/30/2018 MARY MENDEZP Ot Z79.4 SKILLED NURSING (CURRENT) USE OF INSULIN 10/30/2018 VANESSAMARY SpearsP Ot Z82.49 FAMILY HX OF [place] HEART DIS AND OTH DI 10/30/2018 VANESSAMARY SpearsP Ot Z86.010 PERSONAL HISTORY OF COLONIC POLYPS 10/30/2018 MARY MENDEZP Ot Z86.73 PRSNL HX OF TIA (TIA), AND CEREB INFRC W 10/30/2018 MARY MENDEZP Ot Z87.448 PERSONAL HISTORY OF OTHER DISEASES OF UR 10/30/2018 MARY MENDEZP Ot Z87.891 PERSONAL HISTORY OF NICOTINE DEPENDENCE 10/30/2018 VANESSAMARY SpearsP Ot Z88.0 ALLERGY STATUS TO PENICILLIN 10/30/2018 MARY MENDEZP Ot Z88.1 ALLERGY STATUS TO OTHER ANTIBIOTIC AGENT 10/30/2018 MARY MENDZEP Ot Z88.8 ALLERGY STATUS TO [facility] DRUG/MEDS/BIOL SUB 10/30/2018 MARY MENDEZP Ot Z95.1 PRESENCE OF AORTOCORONARY BYPASS GRAFT 10/30/2018 MARY MENDEZP Ot 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 IMPLANT 10/30/2018 MARY MENDEZP Ot Z98.1 ARTHRODESIS STATUS 10/30/2018 MARY MENDEZP Ot Z98.890 OTHER SPECIFIED POSTPROCEDURAL STATES 11/05/2018 KHUSHBOO DOUGHERTY, RODOLFO Mendieta Ot E11.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 W DIABETIC PERIPHERAL AN 11/05/2018 KHUSHBOO DOUGHERTY, RODOLFO Mendieta Ot E78.00 PURE HYPERCHOLESTEROLEMIA, UNSPECIFIED 11/05/2018 RODOLFO CUELLO MD, Ot F41.9 ANXIETY DISORDER, UNSPECIFIED 11/05/2018 RODOLFO CUELLO MD Ot G47.30 SLEEP APNEA, UNSPECIFIED 11/05/2018 RODOLFO CUELLO MD Ot I10 ESSENTIAL (PRIMARY) HYPERTENSION 11/05/2018 RODOLFO CUELLO MD, Ot I25.10 ATHSCL HEART DISEASE OF [place] CORONARY 11/05/2018 RODOLFO CUELLO MD, Ot I25.2 OLD MYOCARDIAL INFARCTION 11/05/2018 RODOLFO CUELLO MD, Ot I48.91 UNSPECIFIED ATRIAL FIBRILLATION 11/05/2018 RODOLFO CUELLO MD, Ot J44.9 CHRONIC OBSTRUCTIVE PULMONARY DISEASE, U 11/05/2018 RODOLFO CUELLO MD, Ot N40.0 BENIGN PROSTATIC HYPERPLASIA WITHOUT LOW 11/05/2018 RODOLFO CUELLO MD, Ot R00.0 TACHYCARDIA, UNSPECIFIED 11/05/2018 RODOLFO CUELLO MD, Ot R19.7 DIARRHEA, UNSPECIFIED 11/05/2018 RODOLFO CUELLO MD, Ot 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.4 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) USE OF 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 11/05/2018 RODOLFO CUELLO MD, Ot Z82.49 FAMILY HX OF [place] HEART DIS AND OTH DI 11/05/2018 RODOLFO CUELLO MD, Ot Z86.73 PRSNL HX OF TIA (TIA), AND CEREB INFRC W 11/05/2018 RODOLFO CUELLO MD, Ot Z87.19 PERSONAL HISTORY OF OTHER DISEASES OF TH 11/05/2018 RODOLFO CUELLO MD, Ot Z87.891 PERSONAL HISTORY OF NICOTINE DEPENDENCE 11/05/2018 RODOLFO CUELLO MD, Ot Z88.0 ALLERGY STATUS TO PENICILLIN 11/05/2018 RODOLFO CUELLO MD, Ot Z88.1 ALLERGY STATUS TO OTHER ANTIBIOTIC AGENT 11/05/2018 RODOLFO CUELLO MD, Ot Z88.5 ALLERGY STATUS TO NARCOTIC AGENT STATUS 11/05/2018 RODOLFO CUELLO MD, Ot Z88.8 ALLERGY STATUS TO OT DRUG/MEDS/BIOL SUB 11/05/2018 RODOLFO CUELLO MD, Ot Z95.1 PRESENCE OF AORTOCORONARY BYPASS GRAFT 11/08/2018 RODOLFO CUELLO MD, Ot E11.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 W DIABETIC PERIPHERAL AN 11/08/2018 RODOLFO CUELLO MD Ot E78.00 PURE HYPERCHOLESTEROLEMIA, UNSPECIFIED 11/08/2018 RODOLFO CUELLO MD Ot F41.9 ANXIETY DISORDER, UNSPECIFIED 11/08/2018 RODOLFO CUELLO MD Ot G47.30 SLEEP APNEA, UNSPECIFIED 11/08/2018 RODOLFO CUELLO MD Ot I10 ESSENTIAL (PRIMARY) HYPERTENSION 11/08/2018 RODOLFO CUELLO MD Ot I25.10 ATHSCL HEART DISEASE OF [place] CORONARY 11/08/2018 RODOLFO CUELLO MD Ot I25.2 OLD MYOCARDIAL INFARCTION 11/08/2018 RODOLFO CUELLO MD Ot I48.91 UNSPECIFIED ATRIAL FIBRILLATION 11/08/2018 RODOLFO CUELLO MD, Ot J44.9 CHRONIC OBSTRUCTIVE PULMONARY DISEASE, U 11/08/2018 RODOLFO CUELLO MD Ot N40.0 BENIGN PROSTATIC HYPERPLASIA WITHOUT LOW 11/08/2018 RODOLFO CUELLO MD Ot R00.0 TACHYCARDIA, UNSPECIFIED 11/08/2018 RODOLFO CUELLO MD, Ot R19.7 DIARRHEA, UNSPECIFIED 11/08/2018 RODOLFO CUELLO MD Ot Z79.4 SKILLED NURSING (CURRENT) USE OF INSULIN 11/08/2018 RODOLFO CUELLO MD Ot Z82.49 FAMILY HX OF [place] HEART DIS AND OTH DI 11/08/2018 RODOLFO CUELLO MD, Ot Z86.73 PRSNL HX OF TIA (TIA), AND CEREB INFRC W 11/08/2018 RODOLFO CUELLO MD, Ot Z87.19 PERSONAL HISTORY OF OTHER DISEASES OF TH 11/08/2018 RODOLFO CUELLO MD Ot Z87.891 PERSONAL HISTORY OF NICOTINE DEPENDENCE 11/08/2018 RODOLFO CUELLO MD Ot Z88.0 ALLERGY STATUS TO PENICILLIN 11/08/2018 RODOLFO CUELLO MD Ot Z88.1 ALLERGY STATUS TO OTHER ANTIBIOTIC AGENT 11/08/2018 RODOLFO CUELLO MD Ot Z88.5 ALLERGY STATUS TO NARCOTIC AGENT STATUS 11/08/2018 RODOLFO CUELLO MD Ot Z88.8 ALLERGY STATUS TO OT DRUG/MEDS/BIOL SUB 11/08/2018 RODOLFO CUELLO MD, Ot Z95.1 PRESENCE OF AORTOCORONARY BYPASS GRAFT 11/08/2018 RODOLFO CUELLO MD Ot E11.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 W DIABETIC PERIPHERAL AN 11/08/2018 RODOLFO CUELLO MD Ot E78.00 PURE HYPERCHOLESTEROLEMIA, UNSPECIFIED 11/08/2018 RODOLFO CUELLO MD, Ot F41.9 ANXIETY DISORDER, UNSPECIFIED 11/08/2018 RODOLFO CUELLO MD, Ot G47.30 SLEEP APNEA, UNSPECIFIED 11/08/2018 RODOLFO CUELLO MD, Ot I10 ESSENTIAL (PRIMARY) HYPERTENSION 11/08/2018 RODOLFO CUELLO MD, Ot I25.10 ATHSCL HEART DISEASE OF [place] CORONARY 11/08/2018 RODOLFO CUELLO MD, Ot I25.2 OLD MYOCARDIAL INFARCTION 11/08/2018 RODOLFO CUELLO MD Ot I48.91 UNSPECIFIED ATRIAL FIBRILLATION 11/08/2018 RODOLFO CUELLO MD, Ot J44.9 CHRONIC OBSTRUCTIVE PULMONARY DISEASE, U 11/08/2018 RODOLFO CUELLO MD, Ot N40.0 BENIGN PROSTATIC HYPERPLASIA WITHOUT LOW 11/08/2018 RODOLFO CUELLO MD, Ot R00.0 TACHYCARDIA, UNSPECIFIED 11/08/2018 RODOLFO CUELLO MD, Ot R19.7 DIARRHEA, UNSPECIFIED 11/08/2018 RODOLFO CUELLO MD, Ot Z79.4 SKILLED NURSING (CURRENT) USE OF INSULIN 11/08/2018 RODOLFO CUELLO MD, Ot Z82.49 FAMILY HX OF [place] HEART DIS AND OTH DI 11/08/2018 RODOLFO CUELLO MD, Ot Z86.73 PRSNL HX OF TIA (TIA), AND CEREB INFRC W 11/08/2018 RODOLFO CUELLO MD, Ot Z87.19 PERSONAL HISTORY OF OTHER DISEASES OF TH 11/08/2018 RODOLFO CUELLO MD, Ot Z87.891 PERSONAL HISTORY OF NICOTINE DEPENDENCE 11/08/2018 RODOLFO CUELLO MD Ot Z88.0 ALLERGY STATUS TO PENICILLIN 11/08/2018 RODOLFO CUELLO MD Ot Z88.1 ALLERGY STATUS TO OTHER ANTIBIOTIC AGENT 11/08/2018 RODOLFO CUELLO MD Ot Z88.5 ALLERGY STATUS TO NARCOTIC AGENT STATUS 11/08/2018 RODOLFO CUELLO MD Ot Z88.8 ALLERGY STATUS TO OTH DRUG/MEDS/BIOL SUB 11/08/2018 RODOLFO CUELLO MD Ot Z95.1 PRESENCE OF AORTOCORONARY BYPASS GRAFT 11/08/2018 CHARO SCHNEIDER MD Ot E11.43 TYPE 2 DIABETES W DIABETIC AUTONOMIC (PO 11/08/2018 CHARO SCHNEIDER MD, Ot E11.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 W DIABETIC PERIPHERAL AN 11/08/2018 CHARO SCHNEIDER MD, Ot E78.00 PURE HYPERCHOLESTEROLEMIA, UNSPECIFIED 11/08/2018 CHARO SCHNEIDER MD Ot F41.9 ANXIETY DISORDER, UNSPECIFIED 11/08/2018 CHARO SCHNEIDER MD Ot G47.30 SLEEP APNEA, UNSPECIFIED 11/08/2018 CHARO SCHNEIDER MD Ot I10 ESSENTIAL (PRIMARY) HYPERTENSION 11/08/2018 CHARO SCHNEIDER MD, Ot I25.10 ATHSCL HEART DISEASE OF [place] CORONARY 11/08/2018 CHARO SCHNEIDER MD Ot I25.2 OLD MYOCARDIAL INFARCTION 11/08/2018 CHARO SCHNEIDER MD Ot I48.91 UNSPECIFIED ATRIAL FIBRILLATION 11/08/2018 CHARO SCHNEIDER MD Ot J44.9 CHRONIC OBSTRUCTIVE PULMONARY DISEASE, U 11/08/2018 CHARO SCHNEIDER MD Ot K21.9 GASTRO-ESOPHAGEAL REFLUX DISEASE WITHOUT 11/08/2018 HCARO SCHNEIDER MD Ot K31.84 GASTROPARESIS 11/08/2018 CHARO SCHNEIDER MD Ot N40.0 BENIGN PROSTATIC HYPERPLASIA WITHOUT LOW 11/08/2018 CHARO SCHNEIDER MD Ot R00.2 PALPITATIONS 11/08/2018 CHRAO SCHNEIDER MD Ot 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.4 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) 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 OF 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 11/08/2018 CHARO SCHNEIDER MD Ot Z82.49 FAMILY HX OF [place] HEART DIS AND OTH DI 11/08/2018 CHARO SCHNEIDER MD, Ot Z86.010 PERSONAL HISTORY OF COLONIC POLYPS 11/08/2018 CHARO SCHNEIDER MD, Ot Z86.73 PRSNL HX OF TIA (TIA), AND CEREB INFRC W 11/08/2018 CHARO SCHNEIDER MD, Ot Z87.19 PERSONAL HISTORY OF OTHER DISEASES OF TH 11/08/2018 CHARO SCHNEIDER MD, Ot Z87.891 PERSONAL HISTORY OF NICOTINE DEPENDENCE 11/08/2018 CHARO SCHNEIDER MD, Ot Z88.0 ALLERGY STATUS TO PENICILLIN 11/08/2018 CHARO SCHNEIDER MD, Ot Z88.5 ALLERGY STATUS TO NARCOTIC AGENT STATUS 11/08/2018 CHARO SCHNEIDER MD, Ot Z88.8 ALLERGY STATUS TO OTH DRUG/MEDS/BIOL SUB 11/08/2018 CHARO SCHNEIDER MD, Ot Z95.1 PRESENCE OF AORTOCORONARY BYPASS GRAFT 11/08/2018 CHARO SCHNEIDER MD, Ot 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 IMPLANT 11/09/2018 SHARON DOUGHERTY, IRAJ Law Ot D50. 8 OTHER IRON DEFICIENCY ANEMIAS 11/09/2018 IRAJ HERRERA MD Ot I95. 89 OTHER HYPOTENSION 11/09/2018 SHARON DOUGHERTY, IRAJ Law Ot R53. 83 OTHER FATIGUE 11/09/2018 ROMAIN KNIGHT DO Ot E11.43 TYPE 2 DIABETES W DIABETIC AUTONOMIC (PO 11/09/2018 ROMAIN KNIGHT DO Ot E11.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 W DIABETIC PERIPHERAL AN 11/09/2018 ROMAIN KNIGHT DO Ot E11.649 TYPE 2 DIABETES MELLITUS WITH HYPOGLYCEM 11/09/2018 GHANSHYAM KNIGHT DOA K Ot E78.00 PURE HYPERCHOLESTEROLEMIA, UNSPECIFIED 11/09/2018 GHANSHYAM KNIGHT DOA K Ot F41.9 ANXIETY DISORDER, UNSPECIFIED 11/09/2018 ROMAIN KNIGHT DO Ot G47.30 SLEEP APNEA, UNSPECIFIED 11/09/2018 GHANSHYAM KNIGHT DOA Es Ot I10 ESSENTIAL (PRIMARY) HYPERTENSION 11/09/2018 GHANSHYAM KNIGHT DOA Es Ot I25.119 ATHSCL HEART DISEASE OF [place] COR ART W 11/09/2018 ROMAIN KNIGHT DO Ot I25.2 OLD MYOCARDIAL INFARCTION 11/09/2018 ROMAIN KNIGHT DO K Ot J44.9 CHRONIC OBSTRUCTIVE PULMONARY DISEASE, U 11/09/2018 EUGENE RIVERA ROMAIN Suggs Ot K21.9 GASTRO-ESOPHAGEAL REFLUX DISEASE WITHOUT 11/09/2018 EUGENE RIVERA ROMAIN Es Ot K31.84 GASTROPARESIS 11/09/2018 EUGENE RIVERA ROMAIN Es Ot N40.0 BENIGN PROSTATIC HYPERPLASIA WITHOUT LOW 11/09/2018 EUGENE RIVERA ROMAIN Es Ot R06.02 SHORTNESS OF BREATH 11/09/2018 EUGENE RIVERA ROMAIN Es Ot Z79.4 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) USE OF INSULIN 11/09/2018 EUGENE RIVERA ROMAIN Es Ot Z82.49 FAMILY HX OF [place] HEART DIS AND OTH DI 11/09/2018 EUGENE RIVERA ROMAIN Es Ot Z86.010 PERSONAL HISTORY OF COLONIC POLYPS 11/09/2018 EUGENE RIVERA ROMAIN Es Ot Z86.73 PRSNL HX OF TIA (TIA), AND CEREB INFRC W 11/09/2018 EUGENE RIVERA ROMAIN Es Ot Z87.19 PERSONAL HISTORY OF OTHER DISEASES OF TH 11/09/2018 EUGENE RIVERA ROMAIN Suggs Ot Z87.891 PERSONAL HISTORY OF NICOTINE DEPENDENCE 11/09/2018 EUGENE RIVERA ROMAIN Suggs Ot Z88.0 ALLERGY STATUS TO PENICILLIN 11/09/2018 EUGENE RIVERA ROMAIN Es Ot Z88.1 ALLERGY STATUS TO OTHER ANTIBIOTIC AGENT 11/09/2018 EUGENE RIVERA ROMAIN Es Ot Z88.5 ALLERGY STATUS TO NARCOTIC AGENT STATUS 11/09/2018 EUGENE DO ROMAIN Es Ot Z88.8 ALLERGY STATUS TO OT DRUG/MEDS/BIOL SUB 11/09/2018 EUGENE RIVERA ROMAIN Es Ot Z95.1 PRESENCE OF AORTOCORONARY BYPASS GRAFT 11/09/2018 EUGENE DO ROMAIN Es Ot 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 IMPLANT 11/09/2018 EUGENE ROMAIN K Ot Z98.1 ARTHRODESIS STATUS 11/11/2018 JENNIE DOUGHERTY, CHARO Fletcher Ot E11.43 TYPE 2 DIABETES W DIABETIC AUTONOMIC (PO 11/11/2018 CHARO SCHNEIDER MD, Ot E11.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 W DIABETIC PERIPHERAL AN 11/11/2018 CHARO SCHNEIDER MD, Ot E78.00 PURE HYPERCHOLESTEROLEMIA, UNSPECIFIED 11/11/2018 CHARO SCHNEIDER MD Ot F41.9 ANXIETY DISORDER, UNSPECIFIED 11/11/2018 CHARO SCHNEIDER MD Ot G47.30 SLEEP APNEA, UNSPECIFIED 11/11/2018 CHARO SCHNEIDER MD Ot I10 ESSENTIAL (PRIMARY) HYPERTENSION 11/11/2018 CHARO SCHNEIDER MD Ot I25.10 ATHSCL HEART DISEASE OF [place] CORONARY 11/11/2018 CHARO SCHNEIDER MD Ot I25.2 OLD MYOCARDIAL INFARCTION 11/11/2018 CHARO SCHNEIDER MD Ot I48.91 UNSPECIFIED ATRIAL FIBRILLATION 11/11/2018 CHARO SCHNEIDER MD, Ot J44.9 CHRONIC OBSTRUCTIVE PULMONARY DISEASE, U 11/11/2018 CHARO SCHNEIDER MD, Ot K21.9 GASTRO-ESOPHAGEAL REFLUX DISEASE WITHOUT 11/11/2018 CHARO SCHNEIDER MD Ot K31.84 GASTROPARESIS 11/11/2018 CHARO SCHNEIDER MD Ot N40.0 BENIGN PROSTATIC HYPERPLASIA WITHOUT LOW 11/11/2018 CHARO SCHNEIDER MD Ot R00.2 PALPITATIONS 11/11/2018 CHARO SCHNEIDER MD Ot Z79.4 SKILLED NURSING (CURRENT) USE OF INSULIN 11/11/2018 CHARO SCHNEIDER MD Ot Z82.49 FAMILY HX OF [place] HEART DIS AND OTH DI 11/11/2018 CHARO SCHNEIDER MD Ot Z86.010 PERSONAL HISTORY OF COLONIC POLYPS 11/11/2018 CHARO SCHNEIDER MD Ot Z86.73 PRSNL HX OF TIA (TIA), AND CEREB INFRC W 11/11/2018 CHARO SCHNEIDER MD Ot Z87.19 PERSONAL HISTORY OF OTHER DISEASES OF TH 11/11/2018 CHARO SCHNEIDER MD Ot Z87.891 PERSONAL HISTORY OF NICOTINE DEPENDENCE 11/11/2018 CHARO SCHNEIDER MD Ot Z88.0 ALLERGY STATUS TO PENICILLIN 11/11/2018 CHARO SCHNEIDER MD Ot Z88.5 ALLERGY STATUS TO NARCOTIC AGENT STATUS 11/11/2018 CHARO SCHNEIDER MD Ot Z88.8 ALLERGY STATUS TO OT DRUG/MEDS/BIOL SUB 11/11/2018 CHARO SCHNEIDER MD Ot Z95.1 PRESENCE OF AORTOCORONARY BYPASS GRAFT 11/11/2018 JENNIE DOUGHERTY, CHARO Fletcher Ot 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 IMPLANT 11/12/2018 ROMAIN KNIGHT DO Ot E11.43 TYPE 2 DIABETES W DIABETIC AUTONOMIC (PO 11/12/2018 EUGENE RIVERA ROMAIN K Ot E11.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 W DIABETIC PERIPHERAL AN 11/12/2018 ROMAIN KNIGHT DO Ot E11.649 TYPE 2 DIABETES MELLITUS WITH HYPOGLYCEM 11/12/2018 GHANSHYAM KNIGHT DOA Es Ot E78.00 PURE HYPERCHOLESTEROLEMIA, UNSPECIFIED 11/12/2018 EUGENE DO ROMAIN K Ot F41.9 ANXIETY DISORDER, UNSPECIFIED 11/12/2018 EUGENE DO ROMAIN K Ot G47.30 SLEEP APNEA, UNSPECIFIED 11/12/2018 EUGENE RIVERA ROMAIN K Ot I10 ESSENTIAL (PRIMARY) HYPERTENSION 11/12/2018 GHANSHYAM KNIGHT DOA K Ot I25.119 ATHSCL HEART DISEASE OF [place] COR ART W 11/12/2018 ROMAIN KNIGHT DO Ot I25.2 OLD MYOCARDIAL INFARCTION 11/12/2018 GHANSHYAM KNIGHT DOA Es Ot J44.9 CHRONIC OBSTRUCTIVE PULMONARY DISEASE, U 11/12/2018 EUGENE GHANSHYAM RIVERAA K Ot K21.9 GASTRO-ESOPHAGEAL REFLUX DISEASE WITHOUT 11/12/2018 GHANSHYAM KNIGHT DOA K Ot K31.84 GASTROPARESIS 11/12/2018 EUGENE RIVERA ROMAIN K Ot N40.0 BENIGN PROSTATIC HYPERPLASIA WITHOUT LOW 11/12/2018 GHANSHYAM KNIGHT DOA K Ot R06.02 SHORTNESS OF BREATH 11/12/2018 GHANSHYAM KNIGHT DOA Es Ot Z79.4 SKILLED NURSING (CURRENT) USE OF INSULIN 11/12/2018 GHANSHYAM KNIGHT DOA K Ot Z82.49 FAMILY HX OF [place]HE[place] HEART DIS AND OTH DI 11/12/2018 GHANSHYAM KNIGHT DOA Es Ot Z86.010 PERSONAL HISTORY OF COLONIC POLYPS 11/12/2018 ROMAIN KNIGHT DO Ot Z86.73 PRSNL HX OF TIA (TIA), AND CEREB INFRC W 11/12/2018 GHANSHYAM KNIGHT DOA K Ot Z87.19 PERSONAL HISTORY OF OTHER DISEASES OF TH 11/12/2018 ROMAIN KNIGHT DO Ot Z87.891 PERSONAL HISTORY OF NICOTINE DEPENDENCE 11/12/2018 ROMAIN KNIGHT DO Ot Z88.0 ALLERGY STATUS TO PENICILLIN 11/12/2018 ROMAIN KNIGHT DO Ot Z88.1 ALLERGY STATUS TO OTHER ANTIBIOTIC AGENT 11/12/2018 ROMAIN KNIGHT DO Ot Z88.5 ALLERGY STATUS TO NARCOTIC AGENT STATUS 11/12/2018 ROMAIN KNIGHT DO Ot Z88.8 ALLERGY STATUS TO OTH DRUG/MEDS/BIOL SUB 11/12/2018 ROMAIN KNIGHT DO Ot Z95.1 PRESENCE OF AORTOCORONARY BYPASS GRAFT 11/12/2018 EUGENE RIVERA ROMAIN Suggs Ot 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 IMPLANT 11/12/2018 EUGENE RIVERA ROMAIN K Ot Z98.1 ARTHRODESIS STATUS 11/19/2018 CHARO SCHNEIDER MD Ot E11.43 TYPE 2 DIABETES W DIABETIC AUTONOMIC (PO 11/19/2018 CHARO SCHNEIDER MD Ot E11.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 W DIABETIC PERIPHERAL AN 11/19/2018 CHARO SCHNEIDER MD Ot E78.00 PURE HYPERCHOLESTEROLEMIA, UNSPECIFIED 11/19/2018 CHARO SCHNEIDER MD Ot F41.9 ANXIETY DISORDER, UNSPECIFIED 11/19/2018 CHARO SCHNEIDER MD Ot G47.30 SLEEP APNEA, UNSPECIFIED 11/19/2018 CHARO SCHNEIDER MD Ot I10 ESSENTIAL (PRIMARY) HYPERTENSION 11/19/2018 CHARO SCHNEIDER MD Ot I25.10 ATHSCL HEART DISEASE OF [place] CORONARY 11/19/2018 CHARO SCHNEIDER MD Ot I25.2 OLD MYOCARDIAL INFARCTION 11/19/2018 CHARO SCHNEIDER MD Ot I48.91 UNSPECIFIED ATRIAL FIBRILLATION 11/19/2018 CHARO SCHNEIDER MD Ot J44.9 CHRONIC OBSTRUCTIVE PULMONARY DISEASE, U 11/19/2018 CHARO SCHNEIDER MD Ot K21.9 GASTRO-ESOPHAGEAL REFLUX DISEASE WITHOUT 11/19/2018 CHARO SCHNEIDER MD Ot K31.84 GASTROPARESIS 11/19/2018 CHARO SCHNEIDER MD Ot N40.0 BENIGN PROSTATIC HYPERPLASIA WITHOUT LOW 11/19/2018 CHARO SCHNEIDER MD Ot R00.2 PALPITATIONS 11/19/2018 CHARO SCHNEIDER MD Ot Z79.4 SKILLED NURSING (CURRENT) USE OF INSULIN 11/19/2018 CHARO SCHNEIDER MD Ot Z82.49 FAMILY HX OF I[place]HE[place] HEART DIS AND OTH DI 11/19/2018 CHARO SCHNEIDER MD Ot Z86.010 PERSONAL HISTORY OF COLONIC POLYPS 11/19/2018 CHARO SCHNEIDER MD Ot Z86.73 PRSNL HX OF TIA (TIA), AND CEREB INFRC W 11/19/2018 CHARO SCHNEIDER MD Ot Z87.19 PERSONAL HISTORY OF OTHER DISEASES OF TH 11/19/2018 CHARO SCHNEIDER MD, Ot Z87.891 PERSONAL HISTORY OF NICOTINE DEPENDENCE 11/19/2018 CHARO SCHNEIDER MD, Ot Z88.0 ALLERGY STATUS TO PENICILLIN 11/19/2018 CHARO SCHNEIDER MD, Ot Z88.5 ALLERGY STATUS TO NARCOTIC AGENT STATUS 11/19/2018 CHARO SCHNEIDER MD, Ot Z88.8 ALLERGY STATUS TO OT DRUG/MEDS/BIOL SUB 11/19/2018 CHARO SCHNEIDER MD Ot Z95.1 PRESENCE OF AORTOCORONARY BYPASS GRAFT 11/19/2018 CHARO SCHNEIDER MD Ot 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 IMPLANT 11/21/2018 CHARO SCHNEIDER MD Ot E11.43 TYPE 2 DIABETES W DIABETIC AUTONOMIC (PO 11/21/2018 CHARO SCHNEIDER MD Ot E11.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 W DIABETIC PERIPHERAL AN 11/21/2018 CHARO SCHNEIDER MD Ot E78.00 PURE HYPERCHOLESTEROLEMIA, UNSPECIFIED 11/21/2018 CHARO SCHNEIDER MD Ot F41.9 ANXIETY DISORDER, UNSPECIFIED 11/21/2018 CHARO SCHNEIDER MD Ot G47.30 SLEEP APNEA, UNSPECIFIED 11/21/2018 CHARO SCHNEIDER MD Ot I10 ESSENTIAL (PRIMARY) HYPERTENSION 11/21/2018 CHARO SCHNEIDER MD Ot I25.10 ATHSCL HEART DISEASE OF [place] CORONARY 11/21/2018 CHARO SCHENIDER MD Ot I25.2 OLD MYOCARDIAL INFARCTION 11/21/2018 CHARO SCHNEIDER MD Ot I48.91 UNSPECIFIED ATRIAL FIBRILLATION 11/21/2018 CHARO SCHNEIDER MD Ot J44.9 CHRONIC OBSTRUCTIVE PULMONARY DISEASE, U 11/21/2018 CHARO SCHNEIDER MD, Ot K21.9 GASTRO-ESOPHAGEAL REFLUX DISEASE WITHOUT 11/21/2018 CHARO SCHNEIDER MD, Ot K31.84 GASTROPARESIS 11/21/2018 CHARO SCHNEIDER MD, Ot N40.0 BENIGN PROSTATIC HYPERPLASIA WITHOUT LOW 11/21/2018 CHARO SCHNEIDER MD, Ot R00.2 PALPITATIONS 11/21/2018 CHARO SCHNEIDER MD, Ot Z79.4 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) USE OF INSULIN 11/21/2018 CHARO SCHNEIDER MD, Ot Z82.49 FAMILY HX OF ISCHEM HEART DIS AND OTH DI 11/21/2018 CHARO SCHNEIDER MD, Ot Z86.010 PERSONAL HISTORY OF COLONIC POLYPS 11/21/2018 CHARO SCHNEIDER MD, Ot Z86.73 PRSNL HX OF TIA (TIA), AND CEREB INFRC W 11/21/2018 CHARO SCHNEIDER MD, Ot Z87.19 PERSONAL HISTORY OF OTHER DISEASES OF TH 11/21/2018 CHARO SCHNEIDER MD, Ot Z87.891 PERSONAL HISTORY OF NICOTINE DEPENDENCE 11/21/2018 CHARO SCHNEIDER MD, Ot Z88.0 ALLERGY STATUS TO PENICILLIN 11/21/2018 CHARO SCHNEIDER MD, Ot Z88.5 ALLERGY STATUS TO NARCOTIC AGENT STATUS 11/21/2018 CHARO SCHNEIDER MD, Ot Z88.8 ALLERGY STATUS TO [facility] DRUG/MEDS/BIOL SUB 11/21/2018 CHARO SCHNEIDER MD Ot Z95.1 PRESENCE OF AORTOCORONARY BYPASS GRAFT 11/21/2018 CHARO SCHNEIDER MD Ot 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 IMPLANT 12/21/2018 MEGHNA MCCORMACK MD Ot E11.9 TYPE 2 DIABETES MELLITUS WITHOUT COMPLIC 12/21/2018 MEGHNA MCCORMACK MD Ot E78.00 PURE HYPERCHOLESTEROLEMIA, UNSPECIFIED 12/21/2018 MEGHNA MCCORMACK MD Ot I10 ESSENTIAL (PRIMARY) HYPERTENSION 12/21/2018 MEGHNA MCCORMACK MD, Ot I25.10 ATHSCL HEART DISEASE OF [place] CORONARY 12/21/2018 MEGHNA MCCORMACK MD, Ot I25.2 OLD MYOCARDIAL INFARCTION 12/21/2018 SANDNESS MD, MEGHNA M Ot I48.0 PAROXYSMAL ATRIAL FIBRILLATION 12/21/2018 MEGHNA MCCORMACK MD Ot I49.5 SICK SINUS SYNDROME 12/21/2018 MEGHNA MCCORMACK MD Ot I65.29 OCCLUSION AND STENOSIS OF UNSPECIFIED CA 12/21/2018 MEGHNA MCCORMACK MD Ot I73.9 PERIPHERAL VASCULAR DISEASE, UNSPECIFIED 12/21/2018 MEGHNA MCCORMACK MD Ot J44.9 CHRONIC OBSTRUCTIVE PULMONARY DISEASE, U 12/21/2018 MEGHNA MCCORMACK MD Ot K21.9 GASTRO-ESOPHAGEAL REFLUX DISEASE WITHOUT 12/21/2018 MEGHNA MCCORMACK MD Ot K52.9 NONINFECTIVE GASTROENTERITIS AND COLITIS 12/21/2018 MEGHNA MCCORMACK MD Ot K59.09 OTHER CONSTIPATION 12/21/2018 MEGHNA MCCORMACK MD Ot M19.91 PRIMARY OSTEOARTHRITIS, UNSPECIFIED SITE 12/21/2018 MEGHNA MCCORMACK MD Ot M54.2 CERVICALGIA 12/21/2018 MEGHNA MCCORMACK MD Ot N18.9 CHRONIC KIDNEY DISEASE, UNSPECIFIED 12/21/2018 MEGHNA MCCORMACK MD Ot N40.0 BENIGN PROSTATIC HYPERPLASIA WITHOUT LOW 12/21/2018 MEGHNA MCCORMACK MD Ot 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 12/21/2018 MEGHNA MCCORMACK MD Ot Z79.4 SKILLED NURSING (CURRENT) USE OF INSULIN 12/21/2018 MEGHNA MCCORMACK MD Ot Z79.899 OTHER SKILLED NURSING (CURRENT) DRUG THERAPY 12/21/2018 MEGHNA MCCORMACK MD Ot Z86.010 PERSONAL HISTORY OF COLONIC POLYPS 12/21/2018 MEGHNA MCCORMACK MD Ot Z87.19 PERSONAL HISTORY OF OTHER DISEASES OF TH 12/21/2018 MEGHNA MCCORMACK MD Ot Z87.891 PERSONAL HISTORY OF NICOTINE DEPENDENCE 12/21/2018 MEGHNA MCCORMACK MD Ot Z88.0 ALLERGY STATUS TO PENICILLIN 12/21/2018 MEGHNA MCCORMACK MD Ot Z88.1 ALLERGY STATUS TO OTHER ANTIBIOTIC AGENT 12/21/2018 MEGHNA MCCORMACK MD Ot 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 IMPLANT 12/21/2018 MEGHNA MCCORMACK MD Ot Z96.9 PRESENCE OF FUNCTIONAL IMPLANT, UNSPECIF 12/30/2018 LEONARDO SALGADO APRN Ot E11.43 TYPE 2 DIABETES W DIABETIC AUTONOMIC (PO 12/30/2018 LEONARDO SALGADO APRN Ot E11.65 TYPE 2 DIABETES MELLITUS WITH HYPERGLYCE 12/30/2018 LEONARDO SALGADO APRN Ot E78.00 PURE HYPERCHOLESTEROLEMIA, UNSPECIFIED 12/30/2018 LEONARDO SALGADO APRN Ot F41 .9 ANXIETY DISORDER, UNSPECIFIED 12/30/2018 LEONARDO SALGADO APRN Ot G47.30 SLEEP APNEA, UNSPECIFIED 12/30/2018 LEONARDO SALGADO APRN Ot I10 ESSENTIAL (PRIMARY) HYPERTENSION 12/30/2018 LEONARDO SALGADO APRN Ot I25.10 ATHSCL HEART DISEASE OF [place] CORONARY 12/30/2018 LEONARDO SALGADO APRN Ot 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 12/30/2018 LEONARDO SALGADO APRN Ot I48.91 UNSPECIFIED ATRIAL FIBRILLATION 12/30/2018 LEONARDO SALGADO APRN Ot J44 .9 CHRONIC OBSTRUCTIVE PULMONARY DISEASE, U 12/30/2018 LEONARDO SALGADO APRN Ot K21 .9 GASTRO-ESOPHAGEAL REFLUX DISEASE WITHOUT 12/30/2018 LEONARDO SALGADO APRN Ot K31.84 GASTROPARESIS 12/30/2018 LEONARDO SALGADO APRN Ot N40 .0 BENIGN PROSTATIC HYPERPLASIA WITHOUT LOW 12/30/2018 LEONARDO SALGADO APRN Ot R07.89 OTHER CHEST PAIN 12/30/2018 LEONARDO SALGADO APRN Ot R07 .9 CHEST PAIN, UNSPECIFIED 12/30/2018 LEONARDO SALGADO APRN Ot Z79 .4 SKILLED NURSING (CURRENT) USE OF INSULIN 12/30/2018 LEONARDO SALGADO APRN Ot Z82.49 FAMILY HX OF ISCHEM HEART DIS AND OTH DI 12/30/2018 LEONARDO SALGADO APRN Ot Z86.010 PERSONAL HISTORY OF COLONIC POLYPS 12/30/2018 LEONARDO SALGADO APRN Ot Z86.73 PRSNL HX OF TIA (TIA), AND CEREB INFRC W 12/30/2018 LEONARDO SALGADO APRN Ot Z87.19 PERSONAL HISTORY OF OTHER DISEASES OF TH 12/30/2018 LEONARDO SALGADO APRN Ot Z87.891 PERSONAL HISTORY OF NICOTINE DEPENDENCE 12/30/2018 LEONARDO SALGADO APRN Ot Z88 .0 ALLERGY STATUS TO PENICILLIN 12/30/2018 LEONARDO SALGADO APRN Ot Z88 .1 ALLERGY STATUS TO OTHER ANTIBIOTIC AGENT 12/30/2018 LEONARDO SALGADO APRN Ot Z88 .5 ALLERGY STATUS TO NARCOTIC AGENT STATUS 12/30/2018 LEONARDO SALGADO APRN Ot Z88 .8 ALLERGY STATUS TO OTH DRUG/MEDS/BIOL SUB 12/30/2018 LEONARDO SALGADO APRN Ot 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 12/30/2018 LEONARDO SALGADO APRN Ot Z95 .5 PRESENCE OF CORONARY ANGIOPLASTY IMPLANT 01/05/2019 LEONARDO SALGADO APRN Ot E11.43 TYPE 2 DIABETES W DIABETIC AUTONOMIC (PO 01/05/2019 LEONARDO SALGADO APRN Ot E11.65 TYPE 2 DIABETES MELLITUS WITH HYPERGLYCE 01/05/2019 LEONARDO SALGADO APRN Ot E78.00 PURE HYPERCHOLESTEROLEMIA, UNSPECIFIED 01/05/2019 LEONARDO SALGADO APRN Ot F41 .9 ANXIETY DISORDER, UNSPECIFIED 01/05/2019 LEONARDO SALGADO APRN Ot G47.30 SLEEP APNEA, UNSPECIFIED 01/05/2019 LEONARDO SALGADO APRN Ot I10 ESSENTIAL (PRIMARY) HYPERTENSION 01/05/2019 LEONARDO SALGADO APRN Ot I25.10 ATHSCL HEART DISEASE OF [place] CORONARY 01/05/2019 LEONARDO SALGADO APRN Ot 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 01/05/2019 LEONARDO SALGADO APRN Ot I48.91 UNSPECIFIED ATRIAL FIBRILLATION 01/05/2019 LEONARDO SALGADO APRN Ot J44 .9 CHRONIC OBSTRUCTIVE PULMONARY DISEASE, U 01/05/2019 LEONARDO SALGADO APRN Ot K21 .9 GASTRO-ESOPHAGEAL REFLUX DISEASE WITHOUT 01/05/2019 LEONARDO SALGADO APRN Ot K31.84 GASTROPARESIS 01/05/2019 LEONARDO SALGADO APRN Ot N40 .0 BENIGN PROSTATIC HYPERPLASIA WITHOUT LOW 01/05/2019 LEONARDO SALGADO APRN Ot R07.89 OTHER CHEST PAIN 01/05/2019 LEONARDO SALGADO APRN Ot R07 .9 CHEST PAIN, UNSPECIFIED 01/05/2019 LEONARDO SALGADO APRN Ot 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 01/05/2019 LEONARDO SALGADO APRN Ot Z82.49 FAMILY HX OF ISCHEM HEART DIS AND OTH DI 01/05/2019 LEONARDO SALGADO APRN Ot Z86.010 PERSONAL HISTORY OF COLONIC POLYPS 01/05/2019 LEONARDO SALGADO APRN Ot Z86.73 PRSNL HX OF TIA (TIA), AND CEREB INFRC W 01/05/2019 LEONARDO SALGADO APRN Ot Z87.19 PERSONAL HISTORY OF OTHER DISEASES OF TH 01/05/2019 LEONARDO SALGADO APRN Ot Z87.891 PERSONAL HISTORY OF NICOTINE DEPENDENCE 01/05/2019 LEONARDO SALGADO APRN Ot Z88 .0 ALLERGY STATUS TO PENICILLIN 01/05/2019 LEONARDO SALGADO APRN Ot Z88 .1 ALLERGY STATUS TO OTHER ANTIBIOTIC AGENT 01/05/2019 LEONARDO SALGADO APRN Ot Z88 .5 ALLERGY STATUS TO NARCOTIC AGENT STATUS 01/05/2019 LEONARDO SALGADO APRN Ot Z88 .8 ALLERGY STATUS TO OT DRUG/MEDS/BIOL SUB 01/05/2019 LEONARDO SALGADO APRN Ot 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 01/05/2019 LEONARDO SALGADO APRN Ot Z95 .5 PRESENCE OF CORONARY ANGIOPLASTY IMPLANT 01/12/2019 LEONARDO SALGADO APRN Ot E11.43 TYPE 2 DIABETES W DIABETIC AUTONOMIC (PO 01/12/2019 LEONARDO SALGADO APRN Ot E11.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 W DIABETIC PERIPHERAL AN 01/12/2019 LEONARDO SALGADO APRN Ot E78.00 PURE HYPERCHOLESTEROLEMIA, UNSPECIFIED 01/12/2019 LEONARDO SALGADO APRN Ot F41 .9 ANXIETY DISORDER, UNSPECIFIED 01/12/2019 LEONARDO SALGADO APRN Ot G47.30 SLEEP APNEA, UNSPECIFIED 01/12/2019 LEONARDO SALGADO APRN Ot I10 ESSENTIAL (PRIMARY) HYPERTENSION 01/12/2019 LEONARDO SALGADO APRN Ot I25.10 ATHSCL HEART DISEASE OF [place] CORONARY 01/12/2019 LEONARDO SALGADO APRN Ot 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 01/12/2019 LEONARDO SALGADO APRN Ot I48.91 UNSPECIFIED ATRIAL FIBRILLATION 01/12/2019 LEONARDO SALGADO APRN Ot I48.92 UNSPECIFIED ATRIAL FLUTTER 01/12/2019 LEONARDO SALGADO APRN, Ot J44 .9 CHRONIC OBSTRUCTIVE PULMONARY DISEASE, U 01/12/2019 LEONARDO SALGADO APRN Ot K21 .9 GASTRO-ESOPHAGEAL REFLUX DISEASE WITHOUT 01/12/2019 LEONARDO SALGADO APRN Ot K31.84 GASTROPARESIS 01/12/2019 LEONARDO SALGADO APRN Ot N40 .0 BENIGN PROSTATIC HYPERPLASIA WITHOUT LOW 01/12/2019 LEONARDO SALGADO APRN Ot Z79.01 SKILLED NURSING (CURRENT) USE OF ANTICOAGULANT 01/12/2019 LEONARDO SALGADO APRN Ot 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 01/12/2019 LEONARDO SALGADO APRN Ot Z82.49 FAMILY HX OF ISCHEM HEART DIS AND OTH DI 01/12/2019 LEONARDO SALGADO APRN Ot Z86.010 PERSONAL HISTORY OF COLONIC POLYPS 01/12/2019 LEONARDO SALGADO APRN Ot Z86.73 PRSNL HX OF TIA (TIA), AND CEREB INFRC W 01/12/2019 LEONARDO SALGADO APRN Ot Z87.19 PERSONAL HISTORY OF OTHER DISEASES OF TH 01/12/2019 LEONARDO SALGADO APRN Ot Z88 .0 ALLERGY STATUS TO PENICILLIN 01/12/2019 LEONARDO SALGADO APRN Ot Z88 .1 ALLERGY STATUS TO OTHER ANTIBIOTIC AGENT 01/12/2019 LEONARDO SALGADO APRN Ot Z88 .5 ALLERGY STATUS TO NARCOTIC AGENT STATUS 01/12/2019 LEONARDO SALGADO APRN Ot 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 01/12/2019 LEONARDO SALGADO APRN Ot Z95 .5 PRESENCE OF CORONARY ANGIOPLASTY IMPLANT 01/15/2019 LEONARDO SALGADO APRN Ot E11.43 TYPE 2 DIABETES W DIABETIC AUTONOMIC (PO 01/15/2019 LEONARDO SALGADO APRN Ot E11.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 W DIABETIC PERIPHERAL AN 01/15/2019 LEONARDO SALGADO APRN Ot E78.00 PURE HYPERCHOLESTEROLEMIA, UNSPECIFIED 01/15/2019 LEONARDO SALGADO APRN Ot F41 .9 ANXIETY DISORDER, UNSPECIFIED 01/15/2019 LEONARDO SALGADO APRN Ot G47.30 SLEEP APNEA, UNSPECIFIED 01/15/2019 LEONARDO SALGADO APRN Ot I10 ESSENTIAL (PRIMARY) HYPERTENSION 01/15/2019 LEONARDO SALGADO APRN Ot I25.10 ATHSCL HEART DISEASE OF [place] CORONARY 01/15/2019 LEONARDO SALGADO APRN Ot 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 01/15/2019 LEONARDO SALGADO APRN Ot I48.91 UNSPECIFIED ATRIAL FIBRILLATION 01/15/2019 LEONARDO SALGADO APRN Ot I48.92 UNSPECIFIED ATRIAL FLUTTER 01/15/2019 LEONARDO SALGADO APRN Ot J44 .9 CHRONIC OBSTRUCTIVE PULMONARY DISEASE, U 01/15/2019 LEONARDO SALGADO APRN Ot K21 .9 GASTRO-ESOPHAGEAL REFLUX DISEASE WITHOUT 01/15/2019 LEONARDO SALGADO APRN Ot K31.84 GASTROPARESIS 01/15/2019 LEONARDO SALGADO APRN Ot N40 .0 BENIGN PROSTATIC HYPERPLASIA WITHOUT LOW 01/15/2019 LEONARDO SALGADO APRN Ot Z79.01 SKILLED NURSING (CURRENT) USE OF ANTICOAGULANT 01/15/2019 LEONARDO SALGADO APRN Ot Z79 .4 SKILLED NURSING (CURRENT) USE OF INSULIN 01/15/2019 LEONARDO SALGADO APRN Ot Z82.49 FAMILY HX OF ISCHEM HEART DIS AND OTH DI 01/15/2019 LEONARDO SALGADO APRN Ot Z86.010 PERSONAL HISTORY OF COLONIC POLYPS 01/15/2019 LEONARDO SALGADO APRN Ot Z86.73 PRSNL HX OF TIA (TIA), AND CEREB INFRC W 01/15/2019 LEONARDO SALGADO APRN Ot Z87.19 PERSONAL HISTORY OF OTHER DISEASES OF TH 01/15/2019 LEONARDO SALGADO APRN Ot Z88 .0 ALLERGY STATUS TO PENICILLIN 01/15/2019 LEONARDO SALGADO APRN Ot Z88 .1 ALLERGY STATUS TO OTHER ANTIBIOTIC AGENT 01/15/2019 LEONARDO SALGADO APRN Ot Z88 .5 ALLERGY STATUS TO NARCOTIC AGENT STATUS 01/15/2019 LEONARDO SALGADO APRN Ot 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 01/15/2019 LEONARDO SALGADO APRN Ot Z95 .5 PRESENCE OF CORONARY ANGIOPLASTY IMPLANT 01/23/2019 KHUSHBOO DOUGHERTY, RODOLFO Mendieta Ot E11.43 TYPE 2 DIABETES W DIABETIC AUTONOMIC (PO 01/23/2019 RODOLFO CUELLO MD Ot E11.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 W DIABETIC PERIPHERAL AN 01/23/2019 RODOLFO CUELLO MD Ot E78.00 PURE HYPERCHOLESTEROLEMIA, UNSPECIFIED 01/23/2019 RODOLFO CUELLO MD, Ot F41.9 ANXIETY DISORDER, UNSPECIFIED 01/23/2019 RODOLFO CUELLO MD Ot G47.30 SLEEP APNEA, UNSPECIFIED 01/23/2019 RODOLFO CUELLO MD Ot I10 ESSENTIAL (PRIMARY) HYPERTENSION 01/23/2019 RODOLFO CUELLO MD Ot I25.10 ATHSCL HEART DISEASE OF [place] CORONARY 01/23/2019 RODOLFO CUELLO MD Ot I25.2 OLD MYOCARDIAL INFARCTION 01/23/2019 RODOLFO CUELLO MD Ot I48.91 UNSPECIFIED ATRIAL FIBRILLATION 01/23/2019 RODOLFO CUELLO MD Ot 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 01/23/2019 RODOLFO CUELLO MD, Ot J44.9 CHRONIC OBSTRUCTIVE PULMONARY DISEASE, U 01/23/2019 RODOLFO CUELLO MD Ot K21.9 GASTRO-ESOPHAGEAL REFLUX DISEASE WITHOUT 01/23/2019 RODOLFO CUELLO MD Ot K31.84 GASTROPARESIS 01/23/2019 RODOLFO CUELLO MD, Ot M54.2 CERVICALGIA 01/23/2019 RODOLFO CUELLO MD Ot N40.0 BENIGN PROSTATIC HYPERPLASIA WITHOUT LOW 01/23/2019 RODOLFO CUELLO MD Ot R13.10 DYSPHAGIA, UNSPECIFIED 01/23/2019 RODOLFO CUELLO MD, Ot R41.82 ALTERED MENTAL STATUS, UNSPECIFIED 01/23/2019 RODOLFO CUELLO MD Ot Z79.4 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) USE OF 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 01/23/2019 RODOLFO CUELLO MD, Ot Z82.49 FAMILY HX OF ISCHEM HEART DIS AND OTH DI 01/23/2019 RODOLFO CUELLO MD, Ot Z86.010 PERSONAL HISTORY OF COLONIC POLYPS 01/23/2019 RODOLFO CUELLO MD, Ot Z86.73 PRSNL HX OF TIA (TIA), AND CEREB INFRC W 01/23/2019 RODOLFO CUELLO MD, Ot Z87.19 PERSONAL HISTORY OF OTHER DISEASES OF TH 01/23/2019 RODOLFO CUELLO MD, Ot Z87.891 PERSONAL HISTORY OF NICOTINE DEPENDENCE 01/23/2019 RODOLFO CUELLO MD Ot Z88.0 ALLERGY STATUS TO PENICILLIN 01/23/2019 RODOLFO CUELLO MD Ot Z88.1 ALLERGY STATUS TO OTHER ANTIBIOTIC AGENT 01/23/2019 RODOLFO CUELLO MD Ot Z88.5 ALLERGY STATUS TO NARCOTIC AGENT STATUS 01/23/2019 RODOLFO CUELLO MD Ot Z88.8 ALLERGY STATUS TO OTH DRUG/MEDS/BIOL SUB 01/23/2019 RODOLFO CUELLO MD Ot Z95.1 PRESENCE OF AORTOCORONARY BYPASS GRAFT 01/23/2019 RODOLFO CUELLO MD Ot 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 IMPLANT 01/28/2019 SHARON DOUGHERTY, IRAJ Law Ot D50. 8 OTHER IRON DEFICIENCY ANEMIAS 01/28/2019 IRAJ HERRERA MD Ot I95. 89 OTHER HYPOTENSION 01/28/2019 IRAJ HERRERA MD Ot R53. 83 OTHER FATIGUE 01/28/2019 SARAH CALLAWAY MD, Ot Z01.81 8 ENCOUNTER FOR OTHER PREPROCEDURAL EXAMIN 01/29/2019 SARAH CALLAWAY MD Ot E11.9 TYPE 2 DIABETES MELLITUS WITHOUT COMPLIC 01/29/2019 SARAH CALLAWAY MD, Ot E78.00 PURE HYPERCHOLESTEROLEMIA, UNSPECIFIED 01/29/2019 SARAH CALLAWAY MD, Ot I10 ESSENTIAL (PRIMARY) HYPERTENSION 01/29/2019 SARAH CALLAWAY MD, Ot I25.10 ATHSCL HEART DISEASE OF [place] CORONARY 01/29/2019 SARAH CALLAWAY MD, Ot I25.2 OLD MYOCARDIAL INFARCTION 01/29/2019 SARAH CALLAWAY MD, Ot I48.91 UNSPECIFIED ATRIAL FIBRILLATION 01/29/2019 SARAH CALLAWAY MD, Ot K21.0 GASTRO-ESOPHAGEAL REFLUX DISEASE WITH ES 01/29/2019 SARAH CALLAWAY MD, Ot K22.2 ESOPHAGEAL OBSTRUCTION 01/29/2019 SARAH CALLAWAY MD, Ot K29.50 UNSPECIFIED CHRONIC GASTRITIS WITHOUT BL 01/29/2019 SARAH CALLAWAY MD, Ot K44.9 DIAPHRAGMATIC HERNIA WITHOUT OBSTRUCTION 01/29/2019 SARAH CALLAWAY MD, Ot N40.0 BENIGN PROSTATIC HYPERPLASIA WITHOUT LOW 01/29/2019 SARAH CALLAWAY MD, Ot Z79.01 SKILLED NURSING (CURRENT) USE OF ANTICOAGULANT 01/29/2019 SARAH CALLAWAY MD, Ot Z79.84 SKILLED NURSING (CURRENT) USE OF ORAL HYPOGLYC 01/29/2019 SARAH CALLAWAY MD, Ot Z79.89 9 OTHER 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) DRUG THERAPY 01/29/2019 SARAH CALLAWAY MD, Ot Z82.3 FAMILY HISTORY OF STROKE 01/29/2019 SARAH CALLAWAY MD, Ot Z82.49 FAMILY HX OF ISCHEM HEART DIS AND OTH DI 01/29/2019 SARAH CALLAWAY MD, Ot Z83.3 FAMILY HISTORY OF DIABETES MELLITUS 01/29/2019 SARAH CALLAWAY MD, Ot Z87.11 PERSONAL HISTORY OF PEPTIC ULCER DISEASE 01/29/2019 SARAH CALLAWAY MD, Ot Z88.0 ALLERGY STATUS TO PENICILLIN 01/29/2019 SARAH CALLAWAY MD, Ot Z88.1 ALLERGY STATUS TO OTHER ANTIBIOTIC AGENT 01/29/2019 SARAH CALLAWAY MD, Ot Z88.5 ALLERGY STATUS TO NARCOTIC AGENT STATUS 01/29/2019 SARAH CALLAWAY MD, Ot Z88.8 ALLERGY STATUS TO OT DRUG/MEDS/BIOL SUB 01/29/2019 SARAH CALLAWAY MD, Ot Z90.49 ACQUIRED ABSENCE OF OTHER SPECIFIED PART 01/29/2019 SARAH CALLAWAY MD, Ot Z95.1 PRESENCE OF AORTOCORONARY BYPASS GRAFT 01/29/2019 SARAH CALLAWAY MD, Ot 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 01/29/2019 SARAH CALLAWAY MD Ot Z01.81 8 ENCOUNTER FOR OTHER PREPROCEDURAL EXAMIN 01/29/2019 SARAH CALLAWAY MD Ot Z01.81 8 ENCOUNTER FOR OTHER PREPROCEDURAL EXAMIN 02/03/2019 SARAH CALLAWAY MD, Ot Z01.81 8 ENCOUNTER FOR OTHER PREPROCEDURAL EXAMIN 02/12/2019 SARAH CALLAWAY MD, Ot E11.9 TYPE 2 DIABETES MELLITUS WITHOUT COMPLIC 02/12/2019 SARAH CALLAWAY MD, Ot E78.00 PURE HYPERCHOLESTEROLEMIA, UNSPECIFIED 02/12/2019 SARAH CALLAWAY MD, Ot I10 ESSENTIAL (PRIMARY) HYPERTENSION 02/12/2019 SARAH CALLAWAY MD, Ot I25.10 ATHSCL HEART DISEASE OF [place] CORONARY 02/12/2019 SARAH CALLAWAY MD, Ot I25.2 OLD MYOCARDIAL INFARCTION 02/12/2019 SARAH CALLAWAY MD, Ot I48.91 UNSPECIFIED ATRIAL FIBRILLATION 02/12/2019 SARAH CALLAWAY MD, Ot K21.0 GASTRO-ESOPHAGEAL REFLUX DISEASE WITH ES 02/12/2019 SARAH CALLAWAY MD, Ot K22.2 ESOPHAGEAL OBSTRUCTION 02/12/2019 SARAH CALLAWAY MD, Ot K29.50 UNSPECIFIED CHRONIC GASTRITIS WITHOUT BL 02/12/2019 SARAH CALLAWAY MD, Ot K44.9 DIAPHRAGMATIC HERNIA WITHOUT OBSTRUCTION 02/12/2019 SARAH CALLAWAY MD, Ot N40.0 BENIGN PROSTATIC HYPERPLASIA WITHOUT LOW 02/12/2019 SARAH CALLAWAY MD, Ot Z79.01 SKILLED NURSING (CURRENT) USE OF ANTICOAGULANT 02/12/2019 SARAH CALLAWAY MD, Ot Z79.84 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) USE OF ORAL HYPOGLYC 02/12/2019 SARAH CALLAWAY MD, Ot Z79.89 9 OTHER 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) DRUG THERAPY 02/12/2019 SARAH CALLAWAY MD, Ot Z82.3 FAMILY HISTORY OF STROKE 02/12/2019 SARAH CALLAWAY MD, Ot Z82.49 FAMILY HX OF ISCHEM HEART DIS AND OTH DI 02/12/2019 SARAH CALLAWAY MD, Ot Z83.3 FAMILY HISTORY OF DIABETES MELLITUS 02/12/2019 SARAH CALLAWAY MD, Ot Z87.11 PERSONAL HISTORY OF PEPTIC ULCER DISEASE 02/12/2019 SARAH CALLAWAY MD, Ot Z88.0 ALLERGY STATUS TO PENICILLIN 02/12/2019 SARAH CALLAWAY MD, Ot Z88.1 ALLERGY STATUS TO OTHER ANTIBIOTIC AGENT 02/12/2019 SARAH CALLAWAY MD, Ot Z88.5 ALLERGY STATUS TO NARCOTIC AGENT STATUS 02/12/2019 SARAH CALLAWAY MD, Ot Z88.8 ALLERGY STATUS TO OTH DRUG/MEDS/BIOL SUB 02/12/2019 SARAH CALLAWAY MD, Ot Z90.49 ACQUIRED ABSENCE OF OTHER SPECIFIED PART 02/12/2019 SARAH CALLAWAY MD, Ot Z95.1 PRESENCE OF AORTOCORONARY BYPASS GRAFT 02/12/2019 SARAH CALLAWAY MD, Ot 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 02/18/2019 WENDY SARMIENTO MD Ot A08. 4 VIRAL INTESTINAL INFECTION, UNSPECIFIED 02/18/2019 WENDY SARMIENTO MD Ot E11. 43 TYPE 2 DIABETES W DIABETIC AUTONOMIC (PO 02/18/2019 WENDY SARMIENTO MD Ot E11. 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 W DIABETIC PERIPHERAL AN 02/18/2019 WENDY SARMIENTO MD Ot E78. 00 PURE HYPERCHOLESTEROLEMIA, UNSPECIFIED 02/18/2019 WENDY SARMIENTO MD Ot E86. 0 DEHYDRATION 02/18/2019 WENDY SARMIENTO MD Ot F41. 9 ANXIETY DISORDER, UNSPECIFIED 02/18/2019 WENDY SARMIENTO MD Ot G47. 30 SLEEP APNEA, UNSPECIFIED 02/18/2019 WENDY SARMIENTO MD Ot I10 ESSENTIAL (PRIMARY) HYPERTENSION 02/18/2019 WENDY SARMIENTO MD Ot I25. 10 ATHSCL HEART DISEASE OF [place] CORONARY 02/18/2019 WENDY SARMIENTO MD Ot I25. 2 OLD MYOCARDIAL INFARCTION 02/18/2019 WENDY SARMIENTO MD Ot I48. 91 UNSPECIFIED ATRIAL FIBRILLATION 02/18/2019 WENDY SARMIENTO MD Ot J44. 9 CHRONIC OBSTRUCTIVE PULMONARY DISEASE, U 02/18/2019 WENDY SARMIENTO MD Ot K21. 9 GASTRO-ESOPHAGEAL REFLUX DISEASE WITHOUT 02/18/2019 WENDY SARMIENTO MD Ot K31. 84 GASTROPARESIS 02/18/2019 WENDY SARMIENTO MD Ot N40. 0 BENIGN PROSTATIC HYPERPLASIA WITHOUT LOW 02/18/2019 WENDY SARMIENTO MD Ot R11. 2 NAUSEA WITH VOMITING, UNSPECIFIED 02/18/2019 WENDY SARMIENTO MD Ot Z79. 4 SKILLED NURSING (CURRENT) USE OF INSULIN 02/18/2019 WENDY SARMIENTO MD Ot Z82. 49 FAMILY HX OF ISCHEM HEART DIS AND OTH DI 02/18/2019 WENDY SARMIENTO MD Ot Z86.010 PERSONAL HISTORY OF COLONIC POLYPS 02/18/2019 WENDY SARMIENTO MD Ot Z86. 73 PRSNL HX OF TIA (TIA), AND CEREB INFRC W 02/18/2019 WENDY SARMIENTO MD Ot Z87.891 PERSONAL HISTORY OF NICOTINE DEPENDENCE 02/18/2019 WENDY SARMIENTO MD Ot Z88. 0 ALLERGY STATUS TO PENICILLIN 02/18/2019 WENDY SARMIENTO MD Ot Z88. 5 ALLERGY STATUS TO NARCOTIC AGENT STATUS 02/18/2019 WENDY SARMIENTO MD Ot Z88. 6 ALLERGY STATUS TO ANALGESIC AGENT STATUS 02/18/2019 WENDY SARMIENTO MD Ot Z95. 1 PRESENCE OF AORTOCORONARY BYPASS GRAFT 02/18/2019 WENDY SARMIENTO MD Ot Z95. 5 PRESENCE OF CORONARY ANGIOPLASTY IMPLANT 02/18/2019 WENDY SARMIENTO MD Ot Z96.653 PRESENCE OF ARTIFICIAL KNEE JOINT, BILAT 02/24/2019 WENDY SARMIENTO MD Ot A08. 4 VIRAL INTESTINAL INFECTION, UNSPECIFIED 02/24/2019 WENDY SARMIENTO MD Ot E11. 43 TYPE 2 DIABETES W DIABETIC AUTONOMIC (PO 02/24/2019 WENDY SARMIENTO MD Ot E11. 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 W DIABETIC PERIPHERAL AN 02/24/2019 WENDY SARMIENTO MD Ot E78. 00 PURE HYPERCHOLESTEROLEMIA, UNSPECIFIED 02/24/2019 WENDY SARMIENTO MD Ot E86. 0 DEHYDRATION 02/24/2019 WENDY SARMIENTO MD Ot F41. 9 ANXIETY DISORDER, UNSPECIFIED 02/24/2019 WENDY SARMIENTO MD Ot G47. 30 SLEEP APNEA, UNSPECIFIED 02/24/2019 WENDY SARMIENTO MD Ot I10 ESSENTIAL (PRIMARY) HYPERTENSION 02/24/2019 WENDY SARMIENTO MD Ot I25. 10 ATHSCL HEART DISEASE OF [place] CORONARY 02/24/2019 WENDY SARMIENTO MD Ot I25. 2 OLD MYOCARDIAL INFARCTION 02/24/2019 WENDY SARMIENTO MD Ot I48. 91 UNSPECIFIED ATRIAL FIBRILLATION 02/24/2019 WENDY SARMIENTO MD Ot J44. 9 CHRONIC OBSTRUCTIVE PULMONARY DISEASE, U 02/24/2019 WENDY SARMIENTO MD Ot K21. 9 GASTRO-ESOPHAGEAL REFLUX DISEASE WITHOUT 02/24/2019 WENDY SARMIENTO MD Ot K31. 84 GASTROPARESIS 02/24/2019 WENDY SARMIENTO MD Ot N40. 0 BENIGN PROSTATIC HYPERPLASIA WITHOUT LOW 02/24/2019 WENDY SARMIENTO MD Ot R11. 2 NAUSEA WITH VOMITING, UNSPECIFIED 02/24/2019 WENDY SARMIENTO MD Ot Z79. 4 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) USE OF INSULIN 02/24/2019 WENDY SARMIENTO MD, Ot Z82. 49 FAMILY HX OF ISCHEM HEART DIS AND OTH DI 02/24/2019 WENDY SARMIENTO MD, Ot Z86.010 PERSONAL HISTORY OF COLONIC POLYPS 02/24/2019 WENDY SARMIENTO MD, Ot Z86. 73 PRSNL HX OF TIA (TIA), AND CEREB INFRC W 02/24/2019 WENDY SARMIENTO MD, Ot Z87.891 PERSONAL HISTORY OF NICOTINE DEPENDENCE 02/24/2019 WENDY SARMIENTO MD, Ot Z88. 0 ALLERGY STATUS TO PENICILLIN 02/24/2019 WENDY SARMIENTO MD, Ot Z88. 5 ALLERGY STATUS TO NARCOTIC AGENT STATUS 02/24/2019 WENDY SARMIENTO MD, Ot Z88. 6 ALLERGY STATUS TO ANALGESIC AGENT STATUS 02/24/2019 WENDY SARMIENTO MD, Ot Z95. 1 PRESENCE OF AORTOCORONARY BYPASS GRAFT 02/24/2019 WENDY SARMIENTO MD, Ot Z95. 5 PRESENCE OF CORONARY ANGIOPLASTY IMPLANT 02/24/2019 WENDY SARMIENTO MD Ot Z96.653 PRESENCE OF ARTIFICIAL KNEE JOINT, BILAT 03/15/2019 RODOLFO CUELLO MD Ot E11.9 TYPE 2 DIABETES MELLITUS WITHOUT COMPLIC 03/15/2019 RODOLFO CUELLO MD, Ot E78.00 PURE HYPERCHOLESTEROLEMIA, UNSPECIFIED 03/15/2019 RODOLFO CUELLO MD, Ot F41.9 ANXIETY DISORDER, UNSPECIFIED 03/15/2019 RODOLFO CUELLO MD Ot I10 ESSENTIAL (PRIMARY) HYPERTENSION 03/15/2019 RODOLFO CUELLO MD, Ot I25.10 ATHSCL HEART DISEASE OF [place] CORONARY 03/15/2019 RODOLFO CUELLO MD, Ot I25.2 OLD MYOCARDIAL INFARCTION 03/15/2019 RODOLFO CUELLO MD, Ot I48.91 UNSPECIFIED ATRIAL FIBRILLATION 03/15/2019 RODOLFO CUELLO MD, Ot I48.92 UNSPECIFIED ATRIAL FLUTTER 03/15/2019 RODOLFO CUELLO MD, Ot J44.9 CHRONIC OBSTRUCTIVE PULMONARY DISEASE, U 03/15/2019 RODOLFO CUELLO MD, Ot K21.9 GASTRO-ESOPHAGEAL REFLUX DISEASE WITHOUT 03/15/2019 RODOLFO CUELLO MD, Ot Z79.01 SKILLED NURSING (CURRENT) USE OF ANTICOAGULANT 03/15/2019 RODOLFO CUELLO MD, Ot Z79.4 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) USE OF INSULIN 03/15/2019 RODOLFO CUELLO MD, Ot Z82.49 FAMILY HX OF ISCHEM HEART DIS AND OTH DI 03/15/2019 RODOLFO CUELLO MD, Ot Z86.73 PRSNL HX OF TIA (TIA), AND CEREB INFRC W 03/15/2019 RODOLFO CUELLO MD, Ot Z87.891 PERSONAL HISTORY OF NICOTINE DEPENDENCE 03/15/2019 RODOLFO CUELLO MD, Ot Z88.0 ALLERGY STATUS TO PENICILLIN 03/15/2019 RODOLFO CUELLO MD, Ot Z88.6 ALLERGY STATUS TO ANALGESIC AGENT STATUS 03/15/2019 RODOLFO CUELLO MD, Ot Z88.8 ALLERGY STATUS TO OTH DRUG/MEDS/BIOL SUB 03/15/2019 RODOLFO CUELLO MD Ot Z95.1 PRESENCE OF AORTOCORONARY BYPASS GRAFT 03/15/2019 RODOLFO CUELLO MD Ot 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 IMPLANT 03/15/2019 RODOLFO CUELLO MD Ot Z96.653 PRESENCE OF ARTIFICIAL KNEE JOINT, BILAT 03/18/2019 RODOLFO CUELLO MD Ot E11.9 TYPE 2 DIABETES MELLITUS WITHOUT COMPLIC 03/18/2019 RODOLFO CUELLO MD Ot E78.00 PURE HYPERCHOLESTEROLEMIA, UNSPECIFIED 03/18/2019 RODOLFO CUELLO MD Ot F41.9 ANXIETY DISORDER, UNSPECIFIED 03/18/2019 RODOLFO CUELLO MD Ot I10 ESSENTIAL (PRIMARY) HYPERTENSION 03/18/2019 RODOLFO CUELLO MD, Ot I25.10 ATHSCL HEART DISEASE OF [place] CORONARY 03/18/2019 RODOLFO CUELLO MD, Ot I25.2 OLD MYOCARDIAL INFARCTION 03/18/2019 RODOLFO CUELLO MD Ot I48.91 UNSPECIFIED ATRIAL FIBRILLATION 03/18/2019 RODOLFO CUELLO MD, Ot I48.92 UNSPECIFIED ATRIAL FLUTTER 03/18/2019 RODOLFO CUELLO MD, Ot J44.9 CHRONIC OBSTRUCTIVE PULMONARY DISEASE, U 03/18/2019 RODOLFO CUELLO MD, Ot K21.9 GASTRO-ESOPHAGEAL REFLUX DISEASE WITHOUT 03/18/2019 RODOLFO CUELLO MD, Ot 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 03/18/2019 RODOLFO CUELLO MD, Ot Z79.4 SKILLED NURSING (CURRENT) USE OF INSULIN 03/18/2019 RODOLFO CUELLO MD, Ot Z82.49 FAMILY HX OF ISCHEM HEART DIS AND OTH DI 03/18/2019 RODOLFO CUELLO MD, Ot Z86.73 PRSNL HX OF TIA (TIA), AND CEREB INFRC W 03/18/2019 RODOLFO CUELLO MD, Ot Z87.891 PERSONAL HISTORY OF NICOTINE DEPENDENCE 03/18/2019 RODOLFO CUELLO MD, Ot Z88.0 ALLERGY STATUS TO PENICILLIN 03/18/2019 RODOLFO CUELLO MD, Ot Z88.6 ALLERGY STATUS TO ANALGESIC AGENT STATUS 03/18/2019 RODOLFO CUELLO MD, Ot Z88.8 ALLERGY STATUS TO OT DRUG/MEDS/BIOL SUB 03/18/2019 RODOLFO CUELLO MD, Ot Z95.1 PRESENCE OF AORTOCORONARY BYPASS GRAFT 03/18/2019 RODOLFO CUELLO MD, Ot 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 IMPLANT 03/18/2019 RODOLFO CUELLO MD, Ot Z96.653 PRESENCE OF ARTIFICIAL KNEE JOINT, BILAT 03/22/2019 RODOLFO CUELLO MD, Ot E11.9 TYPE 2 DIABETES MELLITUS WITHOUT COMPLIC 03/22/2019 RODOLFO CUELLO MD, Ot E78.00 PURE HYPERCHOLESTEROLEMIA, UNSPECIFIED 03/22/2019 RODOLFO CUELLO MD, Ot F41.9 ANXIETY DISORDER, UNSPECIFIED 03/22/2019 RODOLFO CUELLO MD, Ot I10 ESSENTIAL (PRIMARY) HYPERTENSION 03/22/2019 RODOLFO CUELLO MD, Ot I25.10 ATHSCL HEART DISEASE OF [place] CORONARY 03/22/2019 RODOLFO CUELLO MD, Ot I25.2 OLD MYOCARDIAL INFARCTION 03/22/2019 RODOLFO CUELLO MD, Ot I48.91 UNSPECIFIED ATRIAL FIBRILLATION 03/22/2019 RODOLFO CUELLO MD, Ot I48.92 UNSPECIFIED ATRIAL FLUTTER 03/22/2019 RODOLFO CUELLO MD, Ot J44.9 CHRONIC OBSTRUCTIVE PULMONARY DISEASE, U 03/22/2019 RODOLFO CUELLO MD, Ot K21.9 GASTRO-ESOPHAGEAL REFLUX DISEASE WITHOUT 03/22/2019 RODOLFO CUELLO MD, Ot Z79.01 SKILLED NURSING (CURRENT) USE OF ANTICOAGULANT 03/22/2019 RODOLFO CUELLO MD, Ot Z79.4 SKILLED NURSING (CURRENT) USE OF INSULIN 03/22/2019 RODOLFO CUELLO MD, Ot Z82.49 FAMILY HX OF ISCHEM HEART DIS AND OTH DI 03/22/2019 RODOLFO CUELLO MD, Ot Z86.73 PRSNL HX OF TIA (TIA), AND CEREB INFRC W 03/22/2019 RODOLFO CUELLO MD, Ot Z87.891 PERSONAL HISTORY OF NICOTINE DEPENDENCE 03/22/2019 RODOLFO CUELLO MD, Ot Z88.0 ALLERGY STATUS TO PENICILLIN 03/22/2019 RODOLFO CUELLO MD, Ot Z88.6 ALLERGY STATUS TO ANALGESIC AGENT STATUS 03/22/2019 RODOLFO CUELLO MD, Ot Z88.8 ALLERGY STATUS TO OT DRUG/MEDS/BIOL SUB 03/22/2019 RODOLFO CUELLO MD, Ot Z95.1 PRESENCE OF AORTOCORONARY BYPASS GRAFT 03/22/2019 RODOLFO CUELLO MD, Ot 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 IMPLANT 03/22/2019 RODOLFO CUELLO MD, Ot Z96.653 PRESENCE OF ARTIFICIAL KNEE JOINT, BILAT 03/26/2019 RODOLFO CUELLO MD, Ot E11.9 TYPE 2 DIABETES MELLITUS WITHOUT COMPLIC 03/26/2019 RODOLFO CUELLO MD, Ot E78.00 PURE HYPERCHOLESTEROLEMIA, UNSPECIFIED 03/26/2019 BRUEGGEMANN MD, RODOLFO T Ot F41.9 ANXIETY DISORDER, UNSPECIFIED 03/26/2019 RODOLFO CUELLO MD, Ot I10 ESSENTIAL (PRIMARY) HYPERTENSION 03/26/2019 RODOLFO CUELLO MD, Ot I25.10 ATHSCL HEART DISEASE OF [place] CORONARY 03/26/2019 RODOLFO CUELLO MD, Ot I25.2 OLD MYOCARDIAL INFARCTION 03/26/2019 RODOLFO CUELLO MD Ot I48.91 UNSPECIFIED ATRIAL FIBRILLATION 03/26/2019 RODOLFO CUELLO MD, Ot I48.92 UNSPECIFIED ATRIAL FLUTTER 03/26/2019 RODOLFO CUELLO MD, Ot J44.9 CHRONIC OBSTRUCTIVE PULMONARY DISEASE, U 03/26/2019 RODOLFO CUELLO MD, Ot K21.9 GASTRO-ESOPHAGEAL REFLUX DISEASE WITHOUT 03/26/2019 RODOLFO CUELLO MD, Ot 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 03/26/2019 RODOLFO CUELLO MD, Ot Z79.4 SKILLED NURSING (CURRENT) USE OF INSULIN 03/26/2019 RODOLFO CUELLO MD Ot Z82.49 FAMILY HX OF ISCHEM HEART DIS AND OTH DI 03/26/2019 RODOLFO CUELLO MD, Ot Z86.73 PRSNL HX OF TIA (TIA), AND CEREB INFRC W 03/26/2019 RODOLFO CUELLO MD, Ot Z87.891 PERSONAL HISTORY OF NICOTINE DEPENDENCE 03/26/2019 RODOLFO CUELLO MD Ot Z88.0 ALLERGY STATUS TO PENICILLIN 03/26/2019 RODOLFO CUELLO MD Ot Z88.6 ALLERGY STATUS TO ANALGESIC AGENT STATUS 03/26/2019 RODOLFO CUELLO MD Ot Z88.8 ALLERGY STATUS TO OT DRUG/MEDS/BIOL SUB 03/26/2019 RODOLFO CUELLO MD Ot Z95.1 PRESENCE OF AORTOCORONARY BYPASS GRAFT 03/26/2019 RODOLFO CUELLO MD Ot 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 IMPLANT 03/26/2019 RODOLFO CUELLO MD Ot Z96.653 PRESENCE OF ARTIFICIAL KNEE JOINT, BILAT 03/28/2019 RODOLFO CUELLO MD, Ot E11.9 TYPE 2 DIABETES MELLITUS WITHOUT COMPLIC 03/28/2019 RODOLFO CUELLO MD, Ot E78.00 PURE HYPERCHOLESTEROLEMIA, UNSPECIFIED 03/28/2019 RODOLFO CUELLO MD, Ot F41.9 ANXIETY DISORDER, UNSPECIFIED 03/28/2019 RODOLFO CUELLO MD, Ot I10 ESSENTIAL (PRIMARY) HYPERTENSION 03/28/2019 RODOLFO CUELLO MD, Ot I25.10 ATHSCL HEART DISEASE OF [place] CORONARY 03/28/2019 RODOLFO CUELLO MD, Ot I25.2 OLD MYOCARDIAL INFARCTION 03/28/2019 RODOLFO CUELLO MD, Ot I48.91 UNSPECIFIED ATRIAL FIBRILLATION 03/28/2019 RODOLFO CUELLO MD, Ot I48.92 UNSPECIFIED ATRIAL FLUTTER 03/28/2019 RODOLFO CUELLO MD, Ot J44.9 CHRONIC OBSTRUCTIVE PULMONARY DISEASE, U 03/28/2019 RODOLFO CUELLO MD, Ot K21.9 GASTRO-ESOPHAGEAL REFLUX DISEASE WITHOUT 03/28/2019 RODOLFO CUELLO MD, Ot Z79.01 SKILLED NURSING (CURRENT) USE OF ANTICOAGULANT 03/28/2019 RODOLFO CUELLO MD, Ot Z79.4 SKILLED NURSING (CURRENT) USE OF INSULIN 03/28/2019 RODOLFO CUELLO MD, Ot Z82.49 FAMILY HX OF ISCHEM HEART DIS AND OTH DI 03/28/2019 RODOLFO CUELLO MD, Ot Z86.73 PRSNL HX OF TIA (TIA), AND CEREB INFRC W 03/28/2019 RODOLFO CUELLO MD, Ot Z87.891 PERSONAL HISTORY OF NICOTINE DEPENDENCE 03/28/2019 RODOLFO CUELLO MD, Ot Z88.0 ALLERGY STATUS TO PENICILLIN 03/28/2019 RODOLFO CUELLO MD, Ot Z88.6 ALLERGY STATUS TO ANALGESIC AGENT STATUS 03/28/2019 RODOLFO CUELLO MD, Ot Z88.8 ALLERGY STATUS TO OTH DRUG/MEDS/BIOL SUB 03/28/2019 RODOLFO CUELLO MD, Ot Z95.1 PRESENCE OF AORTOCORONARY BYPASS GRAFT 03/28/2019 KHUSHBOO DOUGHERTY, RODOLFO Mendieta Ot 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 IMPLANT 03/28/2019 KHUSHBOO DOUGHERTY, RODOLFO Mendieta Ot Z96.653 PRESENCE OF ARTIFICIAL KNEE JOINT, BILAT 04/06/2019 LEONARDO SALGADO APRN Ot E11.43 TYPE 2 DIABETES W DIABETIC AUTONOMIC (PO 04/06/2019 LEONARDO SALGADO APRN Ot E78.00 PURE HYPERCHOLESTEROLEMIA, UNSPECIFIED 04/06/2019 LEONARDO SALGADO APRN Ot F41 .9 ANXIETY DISORDER, UNSPECIFIED 04/06/2019 LEONARDO SALGADO APRN Ot I10 ESSENTIAL (PRIMARY) HYPERTENSION 04/06/2019 LEONARDO SALGADO APRN Ot I25.10 ATHSCL HEART DISEASE OF [place] CORONARY 04/06/2019 LEONARDO SALGADO APRN Ot 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 04/06/2019 LEONARDO SALGADO APRN Ot I48.91 UNSPECIFIED ATRIAL FIBRILLATION 04/06/2019 LEONARDO SALGADO APRN, Ot J44 .9 CHRONIC OBSTRUCTIVE PULMONARY DISEASE, U 04/06/2019 LEONARDO SALGADO APRN Ot K21 .9 GASTRO-ESOPHAGEAL REFLUX DISEASE WITHOUT 04/06/2019 LEONARDO SALGADO APRN Ot K31.84 GASTROPARESIS 04/06/2019 LEONARDO SALGADO APRN Ot M54.16 RADICULOPATHY, LUMBAR REGION 04/06/2019 LEONARDO SALGADO APRN Ot M54 .9 DORSALGIA, UNSPECIFIED 04/06/2019 LEONARDO SALGADO APRN Ot 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 04/06/2019 LEONARDO SALGADO APRN Ot 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 04/06/2019 LEONARDO SALGADO APRN Ot Z82.49 FAMILY HX OF ISCHEM HEART DIS AND OTH DI 04/06/2019 LEONARDO SALGADO APRN Ot Z86.73 PRSNL HX OF TIA (TIA), AND CEREB INFRC W 04/06/2019 LEONARDO SALGADO APRN Ot Z87.891 PERSONAL HISTORY OF NICOTINE DEPENDENCE 04/06/2019 LEONARDO SALGADO APRN Ot Z88 .0 ALLERGY STATUS TO PENICILLIN 04/06/2019 LEONARDO SALGADO APRN Ot Z88 .6 ALLERGY STATUS TO ANALGESIC AGENT STATUS 04/06/2019 LEONARDO SALGADO APRN Ot Z88 .8 ALLERGY STATUS TO OT DRUG/MEDS/BIOL SUB 04/06/2019 LEONARDO SALGADO APRN Ot 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 04/06/2019 LEONARDO SALGADO APRN Ot Z95 .5 PRESENCE OF CORONARY ANGIOPLASTY IMPLANT 04/09/2019 LEONARDO SALGADO APRN Ot E11.43 TYPE 2 DIABETES W DIABETIC AUTONOMIC (PO 04/09/2019 LEONARDO SALGADO APRN Ot E78.00 PURE HYPERCHOLESTEROLEMIA, UNSPECIFIED 04/09/2019 LEONARDO SALGADO APRN Ot F41 .9 ANXIETY DISORDER, UNSPECIFIED 04/09/2019 LEONARDO SALGADO APRN Ot I10 ESSENTIAL (PRIMARY) HYPERTENSION 04/09/2019 LEONARDO SALGADO APRN Ot I25.10 ATHSCL HEART DISEASE OF [place] CORONARY 04/09/2019 LEONARDO SALGADO APRN Ot 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 04/09/2019 LEONARDO SALGADO APRN Ot I48.91 UNSPECIFIED ATRIAL FIBRILLATION 04/09/2019 LEONARDO SALGADO APRN Ot J44 .9 CHRONIC OBSTRUCTIVE PULMONARY DISEASE, U 04/09/2019 LEONARDO SALGADO APRN Ot K21 .9 GASTRO-ESOPHAGEAL REFLUX DISEASE WITHOUT 04/09/2019 LEONARDO SALGADO APRN Ot K31.84 GASTROPARESIS 04/09/2019 LEONARDO SALGADO APRN Ot M54.16 RADICULOPATHY, LUMBAR REGION 04/09/2019 LEONARDO SALGADO APRN Ot M54 .9 DORSALGIA, UNSPECIFIED 04/09/2019 LEONARDO SALGADO APRN Ot Z79.01 SKILLED NURSING (CURRENT) USE OF ANTICOAGULANT 04/09/2019 LEONARDO SALGADO APRN Ot Z79 .4 SKILLED NURSING (CURRENT) USE OF INSULIN 04/09/2019 LEONARDO SALGADO APRN Ot Z82.49 FAMILY HX OF ISCHEM HEART DIS AND OTH DI 04/09/2019 LEONARDO SALGADO APRN Ot Z86.73 PRSNL HX OF TIA (TIA), AND CEREB INFRC W 04/09/2019 LEONARDO SALGADO APRN Ot Z87.891 PERSONAL HISTORY OF NICOTINE DEPENDENCE 04/09/2019 LEONARDO SALGADO APRN Ot Z88 .0 ALLERGY STATUS TO PENICILLIN 04/09/2019 SALGADO, PETER J AUTOMOTIVE REFINISH TECHNICIAN Ot Z88 .6 ALLERGY STATUS TO ANALGESIC AGENT STATUS 04/09/2019 LEONARDO SALGADO AUTOMOTIVE REFINISH TECHNICIAN Ot Z88 .8 ALLERGY STATUS TO OTH DRUG/MEDS/BIOL SUB 04/09/2019 LEONARDO SALGADO AUTOMOTIVE REFINISH TECHNICIAN Ot 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 04/09/2019 LEONARDO SALGADO AUTOMOTIVE REFINISH TECHNICIAN Ot Z95 .5 PRESENCE OF CORONARY ANGIOPLASTY IMPLANT 05/29/2019 GELLENDER DO, LLUVIA Bernal Ot 272.4 HYPERLIPIDEMIA NEC/NOS 05/29/2019 GELLENDER DO, LLUVIA Bernal Ot 789.00 ABDOMINAL PAIN, UNSPECIFIED SITE 05/29/2019 RONAL DO, ELENI F Ot 715.36 LOC OSTEOARTH NOS-L/LEG 05/29/2019 RONAL DO, ELENI F Ot 717.3 DERANG MED MENISCUS NEC 05/29/2019 RONAL DO, ELENI F Ot 719.06 JOINT EFFUSION-L/LEG 05/29/2019 RONAL DO, ELENI F Ot 726.65 PREPATELLAR BURSITIS 05/29/2019 RONAL DO, ELENI F Ot 715.36 LOC OSTEOARTH NOS-L/LEG 05/29/2019 RONAL DO, ELENI F Ot 717.3 DERANG MED MENISCUS NEC 05/29/2019 JOSE DOUGHERTY, BISI Colon Ot E78. 2 MIXED HYPERLIPIDEMIA 05/29/2019 JOSE DOUGHERTY, BISI Colon Ot I10 ESSENTIAL (PRIMARY) HYPERTENSION 05/29/2019 JOSE DOUGHERTY, BISI Colon Ot I25. 10 ATHSCL HEART DISEASE OF [place] CORONARY 05/29/2019 JOSE DOUGHERTY, BISI Colon Ot I65. 23 OCCLUSION AND STENOSIS OF BILATERAL [place] 05/29/2019 NIESHA DOUGHERTY, LEN Sanchez Ot R13.10 DYSPHAGIA, UNSPECIFIED 05/29/2019 NIESHA DOUGHERTY, LEN Sanchez Ot Z01.818 ENCOUNTER FOR OTHER PREPROCEDURAL EXAMIN 05/29/2019 NIESHA DOUGHERTY, LEN Sanchez Ot K29.80 DUODENITIS WITHOUT BLEEDING 05/29/2019 GELLENDER DO, LLUVIA Bernal Ot M54.5 LOW BACK PAIN 05/29/2019 GELLENDER DO, LLUVIA Bernal Ot R14.0 ABDOMINAL DISTENSION (GASEOUS) 05/29/2019 GELLENDER DO, LLUVIA Bernal Ot R10.9 UNSPECIFIED ABDOMINAL PAIN 05/29/2019 LLUVIA ROUSE DO Ot K29.80 DUODENITIS WITHOUT BLEEDING 05/29/2019 LLUVIA ROUSE DO Ot K85.90 ACUTE PANCREATITIS WITHOUT NECROSIS OR I 05/29/2019 IRAJ HERRERA MD, Ot M47.814 SPONDYLOSIS W/O MYELOPATHY OR RADICULOPA 05/29/2019 IRAJ HERRERA MD, Ot M47.816 SPONDYLOSIS W/O MYELOPATHY OR RADICULOPA 05/29/2019 IRAJ HERRERA MD, Ot M48.56XA COLLAPSED VERTEBRA, NEC, LUMBAR REGION, 05/29/2019 Ot R05 COUGH 05/29/2019 IRAJ HERRERA MD, Ot M48. 12 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], CER 05/29/2019 IRAJ HERRERA MD, Ot M89. 9 DISORDER OF BONE, UNSPECIFIED 05/29/2019 MATTEO CASTILLO MD Ot I12 .9 HYPERTENSIVE CHRONIC KIDNEY DISEASE W ST 05/29/2019 MATTEO CASTILLO MD Ot N18 .3 CHRONIC KIDNEY DISEASE, STAGE 3 (MODERAT 05/29/2019 IRAJ HERRERA MD, Ot M47.814 SPONDYLOSIS W/O MYELOPATHY OR RADICULOPA 05/29/2019 IRAJ HERRERA MD, Ot M47.816 SPONDYLOSIS W/O MYELOPATHY OR RADICULOPA 05/29/2019 IRAJ HERRERA MD, Ot Z87. 81 PERSONAL HISTORY OF (HEALED) TRAUMATIC F 05/29/2019 BISI GARCIA MD Ot E78. 5 HYPERLIPIDEMIA, UNSPECIFIED 05/29/2019 BISI GARCIA MD Ot I07. 1 RHEUMATIC TRICUSPID INSUFFICIENCY 05/29/2019 BISI GARCIA MD Ot I25. 10 ATHSCL HEART DISEASE OF [place] CORONARY 05/29/2019 BISI GARCIA MD Ot I48. 0 PAROXYSMAL ATRIAL FIBRILLATION 05/29/2019 BISI GARCIA MD Ot I73. 9 PERIPHERAL VASCULAR DISEASE, UNSPECIFIED 05/29/2019 BISI GARCIA MD Ot K21. 9 GASTRO-ESOPHAGEAL REFLUX DISEASE WITHOUT 05/29/2019 IRAJ HERRERA MD Ot D50. 8 OTHER IRON DEFICIENCY ANEMIAS 05/29/2019 IRAJ HERRERA MD Ot I95. 89 OTHER HYPOTENSION 05/29/2019 IRAJ HERRERA MD Ot R53. 83 OTHER FATIGUE 06/03/2019 GELLENDER DO, LLUVIA Bernal Ot 272.4 HYPERLIPIDEMIA NEC/NOS 06/03/2019 GELLENDER DO, LLUVIA Bernal Ot 789.00 ABDOMINAL PAIN, UNSPECIFIED SITE 06/03/2019 RONAL DO, ELENI F Ot 715.36 LOC OSTEOARTH NOS-L/LEG 06/03/2019 RONAL DO, ELENI F Ot 717.3 DERANG MED MENISCUS NEC 06/03/2019 RONAL DO, ELENI F Ot 719.06 JOINT EFFUSION-L/LEG 06/03/2019 RONAL DO, ELENI F Ot 726.65 PREPATELLAR BURSITIS 06/03/2019 RONAL DO, ELENI F Ot 715.36 LOC OSTEOARTH NOS-L/LEG 06/03/2019 RONAL DO, ELENI F Ot 717.3 DERANG MED MENISCUS NEC 06/03/2019 JOSE DOUGHERTY, BISI Colon Ot E78. 2 MIXED HYPERLIPIDEMIA 06/03/2019 JOSE DOUGHERTY, BISI oClon Ot I10 ESSENTIAL (PRIMARY) HYPERTENSION 06/03/2019 JOSE DOUGHERTY, BISI Colon Ot I25. 10 ATHSCL HEART DISEASE OF [place] CORONARY 06/03/2019 JOSE DOUGHERTY, BISI Colon Ot I65. 23 OCCLUSION AND STENOSIS OF BILATERAL [place] 06/03/2019 NIESHA DOUGHERTY, LEN Sanchez Ot R13.10 DYSPHAGIA, UNSPECIFIED 06/03/2019 NIESHA DOUGHERTY, LEN Sanchez Ot Z01.818 ENCOUNTER FOR OTHER PREPROCEDURAL EXAMIN 06/03/2019 NIESHA DOUGHERTY, LEN Sanchez Ot K29.80 DUODENITIS WITHOUT BLEEDING 06/03/2019 GELLENDER DO, LLUVIA Bernal Ot M54.5 LOW BACK PAIN 06/03/2019 GELLENDER DO, LLUVIA Bernal Ot R14.0 ABDOMINAL DISTENSION (GASEOUS) 06/03/2019 GELLENDER DO, LLUVIA Bernal Ot R10.9 UNSPECIFIED ABDOMINAL PAIN 06/03/2019 GELLENDER DO, LLUVIA Bernal Ot K29.80 DUODENITIS WITHOUT BLEEDING 06/03/2019 GELLENDER DO, LLUVIA Bernal Ot K85.90 ACUTE PANCREATITIS WITHOUT NECROSIS OR I 06/03/2019 SHARON DOUGHERTY, IRAJ Law Ot M47.814 SPONDYLOSIS W/O MYELOPATHY OR RADICULOPA 06/03/2019 IRAJ HERRERA MD Ot M47.816 SPONDYLOSIS W/O MYELOPATHY OR RADICULOPA 06/03/2019 SHARON DOUGHERTY, IRAJ Law Ot M48.56XA COLLAPSED VERTEBRA, NEC, LUMBAR REGION, 06/03/2019 Ot R05 COUGH 06/03/2019 IRAJ HERRERA MD, Ot M48. 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 9 DISORDER OF BONE, UNSPECIFIED 06/03/2019 MATTEO CASTILLO MD Ot I12 .9 HYPERTENSIVE CHRONIC KIDNEY DISEASE W ST 06/03/2019 MATTEO CASTILLO MD Ot N18 .3 CHRONIC KIDNEY DISEASE, STAGE 3 (MODERAT 06/03/2019 SHARON DOUGHERTY, IRAJ Law Ot M47.814 SPONDYLOSIS W/O MYELOPATHY OR RADICULOPA 06/03/2019 IRAJ HERRERA MD, Ot M47.816 SPONDYLOSIS W/O MYELOPATHY OR RADICULOPA 06/03/2019 IRAJ HERRERA MD, Ot Z87. 81 PERSONAL HISTORY OF (HEALED) TRAUMATIC F 06/03/2019 BISI GARCIA MD Ot E78. 5 HYPERLIPIDEMIA, UNSPECIFIED 06/03/2019 BISI GARCIA MD Ot I07. 1 RHEUMATIC TRICUSPID INSUFFICIENCY 06/03/2019 BISI GARCIA MD Ot I25. 10 ATHSCL HEART DISEASE OF [place] CORONARY 06/03/2019 BISI GARCIA MD Ot I48. 0 PAROXYSMAL ATRIAL FIBRILLATION 06/03/2019 BISI GARCIA MD Ot I73. 9 PERIPHERAL VASCULAR DISEASE, UNSPECIFIED 06/03/2019 BISI GARCIA MD Ot K21. 9 GASTRO-ESOPHAGEAL REFLUX DISEASE WITHOUT 06/03/2019 IRAJ HERRERA MD Ot D50. 8 OTHER IRON DEFICIENCY ANEMIAS 06/03/2019 IRAJ HERRERA MD Ot I95. 89 OTHER HYPOTENSION 06/03/2019 IRAJ HERRERA MD Ot R53. 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 10 ATHSCL HEART DISEASE OF [place] CORONARY 06/03/2019 JOSE DOUGHERTY, BISI Colon Ot I65. 23 OCCLUSION AND STENOSIS OF [place]ILATERAL [place] 06/03/2019 NIESHA DOUGHERTY, LEN Sanchez Ot R13.10 DYSPHAGIA, UNSPECIFIED 06/03/2019 NIESHA DOUGHERTY, LEN Sanchez Ot Z01.818 ENCOUNTER FOR OTHER PREPROCEDURAL EXAMIN 06/03/2019 NIESHA DOUGHERTY, LEN Sanchez Ot K29.80 DUODENITIS WITHOUT BLEEDING 06/03/2019 GELLENDER DO, LLUVIA Bernal Ot M54.5 LOW BACK PAIN 06/03/2019 GELLENDER DO, LLUVIA Bernal Ot R14.0 ABDOMINAL DISTENSION (GASEOUS) 06/03/2019 GELLENDER DO, LLUVIA Bernal Ot R10.9 UNSPECIFIED ABDOMINAL PAIN 06/03/2019 GELLENDER DO, LLUVIA Bernal Ot K29.80 DUODENITIS WITHOUT BLEEDING 06/03/2019 GELLENDER DO, LLUVIA Bernal Ot K85.90 ACUTE PANCREATITIS WITHOUT NECROSIS OR I 06/03/2019 SHARON DOUGHERTY, IRAJ Law Ot M47.814 SPONDYLOSIS W/O MYELOPATHY OR RADICULOPA 06/03/2019 IRAJ HERRERA MD, Ot M47.816 SPONDYLOSIS W/O MYELOPATHY OR RADICULOPA 06/03/2019 SHARON DOUGHERTY, IRAJ Law Ot M48.56XA COLLAPSED VERTEBRA, NEC, LUMBAR REGION, 06/03/2019 Ot R05 COUGH 06/03/2019 IRAJ HERRERA MD, Ot M48. 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 9 DISORDER OF BONE, UNSPECIFIED 06/03/2019 MATTEO CASTILLO MD Ot I12 .9 HYPERTENSIVE CHRONIC KIDNEY DISEASE W ST 06/03/2019 MATTEO CASTILLO MD Ot N18 .3 CHRONIC KIDNEY DISEASE, STAGE 3 (MODERAT 06/03/2019 IRAJ HERRERA MD Ot M47.814 SPONDYLOSIS W/O MYELOPATHY OR RADICULOPA 06/03/2019 IRAJ HERRERA MD, Ot M47.816 SPONDYLOSIS W/O MYELOPATHY OR RADICULOPA 06/03/2019 IRAJ HERRERA MD Ot Z87. 81 PERSONAL HISTORY OF (HEALED) TRAUMATIC F 06/03/2019 BISI GARCIA MD Ot E78. 5 HYPERLIPIDEMIA, UNSPECIFIED 06/03/2019 BISI GARCIA MD Ot I07. 1 RHEUMATIC TRICUSPID INSUFFICIENCY 06/03/2019 BISI GARCIA MD Ot I25. 10 ATHSCL HEART DISEASE OF [place] CORONARY 06/03/2019 BISI GARCIA MD Ot I48. 0 PAROXYSMAL ATRIAL FIBRILLATION 06/03/2019 BISI GARCIA MD Ot I73. 9 PERIPHERAL VASCULAR DISEASE, UNSPECIFIED 06/03/2019 BISI GARCIA MD Ot K21. 9 GASTRO-ESOPHAGEAL REFLUX DISEASE WITHOUT 06/03/2019 IRAJ HERRERA MD Ot D50. 8 OTHER IRON DEFICIENCY ANEMIAS 06/03/2019 IRAJ HERRERA MD Ot I95. 89 OTHER HYPOTENSION 06/03/2019 IRAJ HERRERA MD Ot R53. 83 OTHER FATIGUE 06/16/2019 Jamin Muller 784.7 EPISTAXIS 06/16/2019 Jamin Muller 802.7 ORBITAL FLOOR (BLOW-OUT) OPEN FRACTURE 06/16/2019 Jamin Muller 802.8 OTHER FACIAL BONES CLOSED FRACTURE 06/16/2019 Jamin Muller 910.0 ABRASION OR FRICTION BURN OF FACE, NECK, AND SCALP EXCEPT EYE, WITHOUT MENTION OF INFECTION 06/16/2019 Jamin Muller R04.0 EPISTAXIS 06/16/2019 Jamin Muller S00.81XA ABRASION OF OTHER PART OF HEAD, INITIAL ENCOUNTER 06/16/2019 Jamin Muller S02.31XA FRACTURE OF ORBITAL FLOOR, RIGHT SIDE, INIT 06/16/2019 Jamin Muller S02.841A FRACTURE OF LATERAL ORBITAL WALL, RIGHT SIDE, INIT 06/19/2019 LEISURE, JASPER W 784.7 EPISTAXIS 06/19/2019 LEISURE, JASPER W R04.0 EPISTAXIS 07/18/2019 GELLENDER DO, LLUVIA Bernal Ot 272.4 HYPERLIPIDEMIA NEC/NOS 07/18/2019 GELLENDER DO, LLUVIA Bernal Ot 789.00 ABDOMINAL PAIN, UNSPECIFIED SITE 07/18/2019 RONAL DO, ELENI F Ot 715.36 LOC OSTEOARTH NOS-L/LEG 07/18/2019 RONAL DO, ELENI F Ot 717.3 DERANG MED MENISCUS NEC 07/18/2019 RONAL DO, ELENI F Ot 719.06 JOINT EFFUSION-L/LEG 07/18/2019 RONAL DO, ELENI F Ot 726.65 PREPATELLAR BURSITIS 07/18/2019 RONAL DO, ELENI F Ot 715.36 LOC OSTEOARTH NOS-L/LEG 07/18/2019 RONAL DO, ELENI F Ot 717.3 DERANG MED MENISCUS NEC 07/18/2019 JOSE DOUGHERTY, BISI Colon Ot E78. 2 MIXED HYPERLIPIDEMIA 07/18/2019 JOSE DOUGHERTY, BISI Colon Ot I10 ESSENTIAL (PRIMARY) HYPERTENSION 07/18/2019 JOSE DOUGHERTY, BISI Colon Ot I25. 10 ATHSCL HEART DISEASE OF [place] CORONARY 07/18/2019 JOSE DOUGHERTY, BISI Colon Ot I65. 23 OCCLUSION AND STENOSIS OF BILATERAL [place] 07/18/2019 NIESHA DOUGHERTY, LEN Sanchez Ot R13.10 DYSPHAGIA, UNSPECIFIED 07/18/2019 NIESHA DOUGHERTY, LEN Sanchez Ot Z01.818 ENCOUNTER FOR OTHER PREPROCEDURAL EXAMIN 07/18/2019 NIESHA DOUGHERTY, LEN Sanchez Ot K29.80 DUODENITIS WITHOUT BLEEDING 07/18/2019 GELLENDER DO, LLUVIA Bernal Ot M54.5 LOW BACK PAIN 07/18/2019 GELLENDER DO, LLUVIA Bernal Ot R14.0 ABDOMINAL DISTENSION (GASEOUS) 07/18/2019 GELLENDER DO, LLUVIA Bernal Ot R10.9 UNSPECIFIED ABDOMINAL PAIN 07/18/2019 GELLENDER DO, LLUVIA Bernal Ot K29.80 DUODENITIS WITHOUT BLEEDING 07/18/2019 GELLENDER DO, LLUVIA Bernal Ot K85.90 ACUTE PANCREATITIS WITHOUT NECROSIS OR I 07/18/2019 SHARON DOUGHERTY, IRAJ Law Ot M47.814 SPONDYLOSIS W/O MYELOPATHY OR RADICULOPA 07/18/2019 IRAJ HERRERA MD, Ot M47.816 SPONDYLOSIS W/O MYELOPATHY OR RADICULOPA 07/18/2019 IRAJ HERRERA MD, Ot M48.56XA COLLAPSED VERTEBRA, NEC, LUMBAR REGION, 07/18/2019 Ot R05 COUGH 07/18/2019 IRAJ HERRERA MD, Ot M48. 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 9 DISORDER OF BONE, UNSPECIFIED 07/18/2019 MATTEO CASTILLO MD Ot I12 .9 HYPERTENSIVE CHRONIC KIDNEY DISEASE W ST 07/18/2019 MATTEO CASTILLO MD Ot N18 .3 CHRONIC KIDNEY DISEASE, STAGE 3 (MODERAT 07/18/2019 IRAJ HERRERA MD, Ot M47.814 SPONDYLOSIS W/O MYELOPATHY OR RADICULOPA 07/18/2019 IRAJ HRERERA MD, Ot M47.816 SPONDYLOSIS W/O MYELOPATHY OR RADICULOPA 07/18/2019 IRAJ HERRERA MD, Ot Z87. 81 PERSONAL HISTORY OF (HEALED) TRAUMATIC F 07/18/2019 BISI GARCIA MD Ot E78. 5 HYPERLIPIDEMIA, UNSPECIFIED 07/18/2019 BISI GARCIA MD Ot I07. 1 RHEUMATIC TRICUSPID INSUFFICIENCY 07/18/2019 BISI GARCIA MD Ot I25. 10 ATHSCL HEART DISEASE OF [place] CORONARY 07/18/2019 BISI GARCIA MD Ot I48. 0 PAROXYSMAL ATRIAL FIBRILLATION 07/18/2019 BISI GARCIA MD Ot I73. 9 PERIPHERAL VASCULAR DISEASE, UNSPECIFIED 07/18/2019 BISI GARCIA MD Ot K21. 9 GASTRO-ESOPHAGEAL REFLUX DISEASE WITHOUT 07/18/2019 IRAJ HERRERA MD, Ot D50. 8 OTHER IRON DEFICIENCY ANEMIAS 07/18/2019 IRAJ HERRERA MD Ot I95. 89 OTHER HYPOTENSION 07/18/2019 IRAJ HERRERA MD Ot R53. 83 OTHER FATIGUE 07/18/2019 GELLENJULIO DOLLUVIA Ot 272.4 HYPERLIPIDEMIA NEC/NOS 07/18/2019 GELLENDER LLUVIA RIVERA Ot 789.00 ABDOMINAL PAIN, UNSPECIFIED SITE 07/18/2019 ELENI VILLEDA DO Ot 715.36 LOC OSTEOARTH NOS-L/LEG 07/18/2019 RONAL DO, ELENI F Ot 717.3 DERANG MED MENISCUS NEC 07/18/2019 RONAL DO, ELENI F Ot 719.06 JOINT EFFUSION-L/LEG 07/18/2019 RONAL DO, ELENI F Ot 726.65 PREPATELLAR BURSITIS 07/18/2019 RONAL DO, ELENI F Ot 715.36 LOC OSTEOARTH NOS-L/LEG 07/18/2019 RONAL DO, ELENI F Ot 717.3 DERANG MED MENISCUS NEC 07/18/2019 JOSE DOUGHERTY, BISI Colon Ot E78. 2 MIXED HYPERLIPIDEMIA 07/18/2019 BISI GARCIA MD Ot I10 ESSENTIAL (PRIMARY) HYPERTENSION 07/18/2019 BISI GARCIA MD Ot I25. 10 ATHSCL HEART DISEASE OF [place] CORONARY 07/18/2019 JOSE DOUGHERTY, BISI Colon Ot I65. 23 OCCLUSION AND STENOSIS OF BILATERAL [place] 07/18/2019 NIESHA DOUGHERTY, LEN Sanchez Ot R13.10 DYSPHAGIA, UNSPECIFIED 07/18/2019 NIESHA DOUGHERTY, LEN Sanchez Ot Z01.818 ENCOUNTER FOR OTHER PREPROCEDURAL EXAMIN 07/18/2019 NIESHA DOUGHERTY, LEN Sanchez Ot K29.80 DUODENITIS WITHOUT BLEEDING 07/18/2019 GELLENDER DO, LLUVIA Bernal Ot M54.5 LOW BACK PAIN 07/18/2019 GELLENDER DO, LLUVIA Bernal Ot R14.0 ABDOMINAL DISTENSION (GASEOUS) 07/18/2019 GELLENDER DO, LLUVIA Bernal Ot R10.9 UNSPECIFIED ABDOMINAL PAIN 07/18/2019 GELLENDER DO, LLUVIA Bernal Ot K29.80 DUODENITIS WITHOUT BLEEDING 07/18/2019 GELLENDER DO, LLUVIA Bernal Ot K85.90 ACUTE PANCREATITIS WITHOUT NECROSIS OR I 07/18/2019 SHARON DOUGHERTY, IRAJ Law Ot M47.814 SPONDYLOSIS W/O MYELOPATHY OR RADICULOPA 07/18/2019 IRAJ HERRERA MD Ot M47.816 SPONDYLOSIS W/O MYELOPATHY OR RADICULOPA 07/18/2019 SHARON DOUGHERTY, IRAJ Law Ot M48.56XA COLLAPSED VERTEBRA, NEC, LUMBAR REGION, 07/18/2019 Ot R05 COUGH 07/18/2019 SHARON DOUGHERTY, IRAJ Law Ot M48. 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 9 DISORDER OF BONE, UNSPECIFIED 07/18/2019 MATTEO CASTILLO MD, Ot I12 .9 HYPERTENSIVE CHRONIC KIDNEY DISEASE W ST 07/18/2019 MATTEO CASTILLO MD, Ot N18 .3 CHRONIC KIDNEY DISEASE, STAGE 3 (MODERAT 07/18/2019 IRAJ HERRERA MD, Ot M47.814 SPONDYLOSIS W/O MYELOPATHY OR RADICULOPA 07/18/2019 IRAJ HERRERA MD, Ot M47.816 SPONDYLOSIS W/O MYELOPATHY OR RADICULOPA 07/18/2019 IRAJ HERRERA MD, Ot Z87. 81 PERSONAL HISTORY OF (HEALED) TRAUMATIC F 07/18/2019 BISI GARCIA MD, Ot E78. 5 HYPERLIPIDEMIA, UNSPECIFIED 07/18/2019 BISI GARCIA MD, Ot I07. 1 RHEUMATIC TRICUSPID INSUFFICIENCY 07/18/2019 BISI GARCIA MD, Ot I25. 10 ATHSCL HEART DISEASE OF [place] CORONARY 07/18/2019 BISI GARCIA MD Ot I48. 0 PAROXYSMAL ATRIAL FIBRILLATION 07/18/2019 BISI GARCIA MD, Ot I73. 9 PERIPHERAL VASCULAR DISEASE, UNSPECIFIED 07/18/2019 BISI GARCIA MD, Ot K21. 9 GASTRO-ESOPHAGEAL REFLUX DISEASE WITHOUT 07/18/2019 IRAJ HERRERA MD, Ot D50. 8 OTHER IRON DEFICIENCY ANEMIAS 07/18/2019 IRAJ HERRERA MD, Ot I95. 89 OTHER HYPOTENSION 07/18/2019 IRAJ HERRERA MD, Ot R53. 83 OTHER FATIGUE Procedures Code Description Performed By Per formed On 00.40 04/18/2012 00.45 04/18/2012 00.66 04/18/2012 36.06 04/18/2012 37.22 04/18/2012 88.53 04/18/2012 88.56 04/18/2012 99.10 04/18/2012 [id number] IN SERT OF MONITOR DEV INTO CHEST SUBCU/F 03/22/2016 Results Test Result Range Complete urinalysis with reflex to cultu re - 03/01/16 07:45 Urine color determination YELLOW NRG Urine clarity determination CLEAR NR G Urine pH measurement by test strip 6 5-9 Specific gravity of urine by test strip 1.015 1.016-1.022 Urine protein assay by test strip, semi-quantitative NEGATIVE NEGATIVE Urine glucose detection by automated test strip NE GATIVE NEGATIVE Erythrocytes detection in urine sediment by light micr oscopy NEGATIVE NEGATIVE Urine ketones detection by automated test strip NE GATIVE NEGATIVE Urine nitrite detection by test strip NEGATIVE NEGATIVE Urine total bilirubin detection by test strip NEGA TIVE NEGATIVE Urine urobilinogen measurement by automated test strip (mass/volume) NORMAL NORMAL Urine leukocyte esterase detection by dipstick 1+ NEGATIVE Automated urine sediment erythrocyte cou nt by microscopy (number/high power field) NONE NRG Automated urine sediment leukocyte count by microscopy (number/high power field) [HPF] NRG Bacteria detection in urine sediment by light microsco py NEGATIVE NRG Squamous epithelial cells detection in u rine sediment by light microscopy RARE NRG Crystals detection in urine sediment by light microsco py NONE NRG Casts detection in urine sediment by light microscopy NONE NRG Mucus detection in urine sediment by light microscopy NEGATIVE NRG Complete urinalysis with reflex to culture NO NRG Automated blood complete blood count (he mogram) panel - 03/01/16 08:04 Blood leukocytes automated count (number/volume) 6.9 10*3/uL 4.3-11.0 Blood erythrocytes automated count (number/volume) 4.77 10*6/uL 4.35-5.85 Venous blood hemoglobin measurement (mass/volume) 14.4 g/dL 13.3-17.7 Blood hematocrit (volume fraction) 43 % 40-54 Automated erythrocyte mean corpuscular volume 90 [ foz_us] 80-99 Automated erythrocyte mean corpuscular h emoglobin (mass per erythrocyte) 30 pg 25-34 Automated erythrocyte mean corpuscular h emoglobin concentration measurement (mass/volume) 34 g/dL 32-36 Automated erythrocyte distribution width ratio 13. 8 % 10.0- 14.5 Automated blood platelet count (count/volume) 193 10*3/uL 130-400 Automated blood platelet mean volume measurement 11.1 [foz_us] 7.4-10.4 PT panel in platelet poor plasma by coag ulation assay - 03/01/16 08:04 Prothrombin time (PT) in platelet poor plasma by coagu lation assay 13.5 s 12.2-14.7 INR in platelet poor plasma or blood by coagulation as say 1.1 0.8-1.4 Activated partial thromboplastin time (a PTT) in platelet poor plasma bycoagulation assay - 03/01/16 08:04 Activated partial thromboplastin time (a PTT) in platelet poor plasma bycoagulation assay 27 s 24-35 Comprehensive metabolic panel - 03/01/16 08:04 Serum or plasma sodium measurement (moles/volume) 141 mmol/L 135-145 Serum or plasma potassium measurement (moles/volume) 4.3 mmol/L 3.6-5.0 Serum or plasma chloride measurement (moles/volume) 108 mmol/L 98-107 Carbon dioxide 26 mmol/L 21-32 Serum or plasma anion gap determination (moles/volume) 7 mmol/L 5-14 Serum or plasma urea nitrogen measurement (mass/volume ) 24 mg/dL 7-18 Serum or plasma creatinine measurement (mass/volume) 1.76 mg/dL 0.60-1.30 Serum or plasma urea nitrogen/creatinine mass ratio 14 NRG Serum or plasma creatinine measurement w ith calculation of estimated glomerular filtration rate 38 NRG Serum or plasma glucose measurement (mass/volume) 179 mg/dL 70-105 Serum or plasma calcium measurement (mass/volume) 9.9 mg/dL 8.5-10.1 Serum or plasma total bilirubin measurement (mass/volu me) 0.4 mg/dL 0.1-1.0 Serum or plasma alkaline phosphatase rafat surement (enzymatic activity/volume) 60 U/L 40-136 Serum or plasma aspartate aminotransfera se measurement (enzymatic activity/volume) 23 U/L 5-34 Serum or plasma alanine aminotransferase measurement (enzymatic activity/volume) 26 U/L 0-55 Serum or plasma protein measurement (mass/volume) 7.3 g/dL 6.4-8.2 Serum or plasma albumin measurement (mass/volume) 4.3 g/dL 3.2-4.5 Lipid 1996 panel - 03/01/16 08:04 Serum or plasma triglyceride measurement (mass/volume) 213 mg/dL <150 Serum or plasma cholesterol measurement (mass/volume) 141 mg/dL < 200 Serum or plasma cholesterol in HDL measurement (mass/v olume) 28 mg/dL 40-60 Cholesterol in LDL [mass/volume] in serum or plasma by direct assay 86 mg/dL 1-129 Serum or plasma cholesterol in VLDL measurement (mass/ volume) 43 mg/dL 5-40 Methicillin resistant Staphylococcus aur eus (MRSA) screening culture - 03/01/16 08:04 Methicillin resistant Staphylococcus aureus (MRSA) scr eening culture NEG NRG Capillary blood glucose measurement by g lucometer (mass/volume) - 03/01/16 19:40 Capillary blood glucose measurement by glucometer (mas s/volume) 234 mg/dL 70-110 Whole blood basic metabolic panel - 02/12 03:49 Serum or plasma sodium measurement (moles/volume) 141 mmol/L 135-145 Serum or plasma potassium measurement (moles/volume) 3.9 mmol/L 3.6-5.0 Serum or plasma chloride measurement (moles/volume) 111 mmol/L 98-107 Carbon dioxide 21 mmol/L 21-32 Serum or plasma anion gap determination (moles/volume) 9 mmol/L 5-14 Serum or plasma urea nitrogen measurement (mass/volume ) 20 mg/dL 7-18 Serum or plasma creatinine measurement (mass/volume) 1.32 mg/dL 0.60-1.30 Serum or plasma urea nitrogen/creatinine mass ratio 15 NRG Serum or plasma creatinine measurement w ith calculation of estimated glomerular filtration rate 53 NRG Serum or plasma glucose measurement (mass/volume) 94 mg/dL 70-105 Serum or plasma calcium measurement (mass/volume) 9.1 mg/dL 8.5-10.1 Complete blood count (CBC) with automate d white blood cell (WBC) differential - 03/04/16 21:30 Blood leukocytes automated count (number/volume) 8.3 10*3/uL 4.3-11.0 Blood erythrocytes automated count (number/volume) 4.50 10*6/uL 4.35-5.85 Venous blood hemoglobin measurement (mass/volume) 13.6 g/dL 13.3-17.7 Blood hematocrit (volume fraction) 40 % 40-54 Automated erythrocyte mean corpuscular volume 89 [ foz_us] 80-99 Automated erythrocyte mean corpuscular h emoglobin (mass per erythrocyte) 30 pg 25-34 Automated erythrocyte mean corpuscular h emoglobin concentration measurement (mass/volume) 34 g/dL 32-36 Automated erythrocyte distribution width ratio 13. 8 % 10.0- 14.5 Automated blood platelet count (count/volume) 217 10*3/uL 130-400 Automated blood platelet mean volume measurement 10.7 [foz_us] 7.4-10.4 Automated blood neutrophils/100 leukocytes 72 % 42-75 Automated blood lymphocytes/100 leukocytes 19 % 12-44 Blood monocytes/100 leukocytes 6 % 0-12 Automated blood eosinophils/100 leukocytes 2 % 0-10 Automated blood basophils/100 leukocytes 0 % 0-10 Blood neutrophils automated count (number/volume) 6.0 10*3 1.8-7.8 Blood lymphocytes automated count (number/volume) 1.6 10*3 1.0-4.0 Blood monocytes automated count (number/volume) 0. 5 10*3 0.0-1.0 Automated eosinophil count 0.2 10*3/uL 0 .0-0.3 Automated blood basophil count (count/volume) 0.0 10*3/uL 0.0-0.1 Comprehensive metabolic panel - 03/04/16 21:30 Serum or plasma sodium measurement (moles/volume) 139 mmol/L 135-145 Serum or plasma potassium measurement (moles/volume) 3.9 mmol/L 3.6-5.0 Serum or plasma chloride measurement (moles/volume) 105 mmol/L 98-107 Carbon dioxide 23 mmol/L 21-32 Serum or plasma anion gap determination (moles/volume) 11 mmol/L 5-14 Serum or plasma urea nitrogen measurement (mass/volume ) 19 mg/dL 7-18 Serum or plasma creatinine measurement (mass/volume) 1.63 mg/dL 0.60-1.30 Serum or plasma urea nitrogen/creatinine mass ratio 12 NRG Serum or plasma creatinine measurement w ith calculation of estimated glomerular filtration rate 42 NRG Serum or plasma glucose measurement (mass/volume) 228 mg/dL 70-105 Serum or plasma calcium measurement (mass/volume) 9.8 mg/dL 8.5-10.1 Serum or plasma total bilirubin measurement (mass/volu me) 0.5 mg/dL 0.1-1.0 Serum or plasma alkaline phosphatase rafat surement (enzymatic activity/volume) 67 U/L 40-136 Serum or plasma aspartate aminotransfera se measurement (enzymatic activity/volume) 19 U/L 5-34 Serum or plasma alanine aminotransferase measurement (enzymatic activity/volume) 23 U/L 0-55 Serum or plasma protein measurement (mass/volume) 7.1 g/dL 6.4-8.2 Serum or plasma albumin measurement (mass/volume) 4.2 g/dL 3.2-4.5 Serum or plasma troponin i.cardiac measu rement (mass/volume) - 03/04/16 21:30 Serum or plasma troponin i.cardiac measurement (mass/v olume) < ng/mL <0.30 Lipase - 03/04/16 21:30 Lipase 60 U/L 8-78 Complete blood count (CBC) with automate d white blood cell (WBC) differential - 03/09/16 17:10 Blood leukocytes automated count (number/volume) 7.0 10*3/uL 4.3-11.0 Blood erythrocytes automated count (number/volume) 4.36 10*6/uL 4.35-5.85 Venous blood hemoglobin measurement (mass/volume) 13.2 g/dL 13.3-17.7 Blood hematocrit (volume fraction) 39 % 40-54 Automated erythrocyte mean corpuscular volume 89 [ foz_us] 80-99 Automated erythrocyte mean corpuscular h emoglobin (mass per erythrocyte) 30 pg 25-34 Automated erythrocyte mean corpuscular h emoglobin concentration measurement (mass/volume) 34 g/dL 32-36 Automated erythrocyte distribution width ratio 13. 6 % 10.0- 14.5 Automated blood platelet count (count/volume) 223 10*3/uL 130-400 Automated blood platelet mean volume measurement 10.7 [foz_us] 7.4-10.4 Automated blood neutrophils/100 leukocytes 73 % 42-75 Automated blood lymphocytes/100 leukocytes 17 % 12-44 Blood monocytes/100 leukocytes 8 % 0-12 Automated blood eosinophils/100 leukocytes 2 % 0-10 Automated blood basophils/100 leukocytes 0 % 0-10 Blood neutrophils automated count (number/volume) 5.1 10*3 1.8-7.8 Blood lymphocytes automated count (number/volume) 1.2 10*3 1.0-4.0 Blood monocytes automated count (number/volume) 0. 5 10*3 0.0-1.0 Automated eosinophil count 0.2 10*3/uL 0 .0-0.3 Automated blood basophil count (count/volume) 0.0 10*3/uL 0.0-0.1 Comprehensive metabolic panel - 03/09/16 17:10 Serum or plasma sodium measurement (moles/volume) 135 mmol/L 135-145 Serum or plasma potassium measurement (moles/volume) 4.4 mmol/L 3.6-5.0 Serum or plasma chloride measurement (moles/volume) 104 mmol/L 98-107 Carbon dioxide 26 mmol/L 21-32 Serum or plasma anion gap determination (moles/volume) 5 mmol/L 5-14 Serum or plasma urea nitrogen measurement (mass/volume ) 21 mg/dL 7-18 Serum or plasma creatinine measurement (mass/volume) 1.92 mg/dL 0.60-1.30 Serum or plasma urea nitrogen/creatinine mass ratio 11 NRG Serum or plasma creatinine measurement w ith calculation of estimated glomerular filtration rate 35 NRG Serum or plasma glucose measurement (mass/volume) 348 mg/dL 70-105 Serum or plasma calcium measurement (mass/volume) 9.6 mg/dL 8.5-10.1 Serum or plasma total bilirubin measurement (mass/volu me) 0.6 mg/dL 0.1-1.0 Serum or plasma alkaline phosphatase rafat surement (enzymatic activity/volume) 58 U/L 40-136 Serum or plasma aspartate aminotransfera se measurement (enzymatic activity/volume) 28 U/L 5-34 Serum or plasma alanine aminotransferase measurement (enzymatic activity/volume) 38 U/L 0-55 Serum or plasma protein measurement (mass/volume) 6.9 g/dL 6.4-8.2 Serum or plasma albumin measurement (mass/volume) 4.1 g/dL 3.2-4.5 Serum or plasma troponin i.cardiac measu rement (mass/volume) - 03/09/16 17:10 Serum or plasma troponin i.cardiac measurement (mass/v olume) < ng/mL <0.30 Complete blood count (CBC) with automate d white blood cell (WBC) differential - 03/21/16 18:00 Blood leukocytes automated count (number/volume) 7.9 10*3/uL 4.3-11.0 Blood erythrocytes automated count (number/volume) 4.54 10*6/uL 4.35-5.85 Venous blood hemoglobin measurement (mass/volume) 13.5 g/dL 13.3-17.7 Blood hematocrit (volume fraction) 40 % 40-54 Automated erythrocyte mean corpuscular volume 88 [ foz_us] 80-99 Automated erythrocyte mean corpuscular h emoglobin (mass per erythrocyte) 30 pg 25-34 Automated erythrocyte mean corpuscular h emoglobin concentration measurement (mass/volume) 34 g/dL 32-36 Automated erythrocyte distribution width ratio 13. 7 % 10.0- 14.5 Automated blood platelet count (count/volume) 246 10*3/uL 130-400 Automated blood platelet mean volume measurement 10.6 [foz_us] 7.4-10.4 Automated blood neutrophils/100 leukocytes 65 % 42-75 Automated blood lymphocytes/100 leukocytes 24 % 12-44 Blood monocytes/100 leukocytes 8 % 0-12 Automated blood eosinophils/100 leukocytes 3 % 0-10 Automated blood basophils/100 leukocytes 1 % 0-10 Blood neutrophils automated count (number/volume) 5.1 10*3 1.8-7.8 Blood lymphocytes automated count (number/volume) 1.9 10*3 1.0-4.0 Blood monocytes automated count (number/volume) 0. 6 10*3 0.0-1.0 Automated eosinophil count 0.2 10*3/uL 0 .0-0.3 Automated blood basophil count (count/volume) 0.0 10*3/uL 0.0-0.1 Serum or plasma troponin i.cardiac measu rement (mass/volume) - 03/21/16 18:00 Serum or plasma troponin i.cardiac measurement (mass/v olume) < ng/mL <0.30 PT panel in platelet poor plasma by coag ulation assay - 03/21/16 18:00 Prothrombin time (PT) in platelet poor plasma by coagu lation assay 13.2 s 12.2-14.7 INR in platelet poor plasma or blood by coagulation as say 1.0 0.8-1.4 Fibrin D-dimer FEU measurement in platel et poor plasma (mass/volume) - 03/21/16 18:00 Fibrin D-dimer FEU measurement in platelet poor plasma (mass/volume) 0.42 ug/mL 0.00-0.49 Comprehensive metabolic panel - 03/21/16 18:00 Serum or plasma sodium measurement (moles/volume) 137 mmol/L 135-145 Serum or plasma potassium measurement (moles/volume) 4.6 mmol/L 3.6-5.0 Serum or plasma chloride measurement (moles/volume) 106 mmol/L 98-107 Carbon dioxide 20 mmol/L 21-32 Serum or plasma anion gap determination (moles/volume) 11 mmol/L 5-14 Serum or plasma urea nitrogen measurement (mass/volume ) 19 mg/dL 7-18 Serum or plasma creatinine measurement (mass/volume) 1.83 mg/dL 0.60-1.30 Serum or plasma urea nitrogen/creatinine mass ratio 10 NRG Serum or plasma creatinine measurement w ith calculation of estimated glomerular filtration rate 36 NRG Serum or plasma glucose measurement (mass/volume) 316 mg/dL 70-105 Serum or plasma calcium measurement (mass/volume) 9.6 mg/dL 8.5-10.1 Serum or plasma total bilirubin measurement (mass/volu me) 0.4 mg/dL 0.1-1.0 Serum or plasma alkaline phosphatase rafat surement (enzymatic activity/volume) 63 U/L 40-136 Serum or plasma aspartate aminotransfera se measurement (enzymatic activity/volume) 18 U/L 5-34 Serum or plasma alanine aminotransferase measurement (enzymatic activity/volume) 30 U/L 0-55 Serum or plasma protein measurement (mass/volume) 6.9 g/dL 6.4-8.2 Serum or plasma albumin measurement (mass/volume) 4.2 g/dL 3.2-4.5 Magnesium - 03/21/16 18:00 Magnesium 1.9 mg/dL 1.8-2.4 Lipase - 03/21/16 18:00 Lipase 84 U/L 8-78 Methicillin resistant Staphylococcus aur eus (MRSA) screening culture - 03/21/16 21:30 Methicillin resistant Staphylococcus aureus (MRSA) scr eening culture NEG NRG Blood lactic acid measurement (moles/vol ume) - 05/30/16 00:07 Blood lactic acid measurement (moles/volume) 0.8 m mol/L 0.5- 2.0 Complete blood count (CBC) with automate d white blood cell (WBC) differential - 05/30/16 20:34 Blood leukocytes automated count (number/volume) 13.2 10*3/uL 4.3-11.0 Blood erythrocytes automated count (number/volume) 5.10 10*6/uL 4.35-5.85 Venous blood hemoglobin measurement (mass/volume) 15.2 g/dL 13.3-17.7 Blood hematocrit (volume fraction) 45 % 40-54 Automated erythrocyte mean corpuscular volume 89 [ foz_us] 80-99 Automated erythrocyte mean corpuscular h emoglobin (mass per erythrocyte) 30 pg 25-34 Automated erythrocyte mean corpuscular h emoglobin concentration measurement (mass/volume) 34 g/dL 32-36 Automated erythrocyte distribution width ratio 13. 5 % 10.0- 14.5 Automated blood platelet count (count/volume) 257 10*3/uL 130-400 Automated blood platelet mean volume measurement 10.4 [foz_us] 7.4-10.4 Automated blood neutrophils/100 leukocytes 83 % 42-75 Automated blood lymphocytes/100 leukocytes 10 % 12-44 Blood monocytes/100 leukocytes 6 % 0-12 Automated blood eosinophils/100 leukocytes 1 % 0-10 Automated blood basophils/100 leukocytes 0 % 0-10 Blood neutrophils automated count (number/volume) 11.0 10*3 1.8-7.8 Blood lymphocytes automated count (number/volume) 1.4 10*3 1.0-4.0 Blood monocytes automated count (number/volume) 0. 8 10*3 0.0-1.0 Automated eosinophil count 0.1 10*3/uL 0 .0-0.3 Automated blood basophil count (count/volume) 0.0 10*3/uL 0.0-0.1 PT panel in platelet poor plasma by coag ulation assay - 05/30/16 20:34 Prothrombin time (PT) in platelet poor plasma by coagu lation assay 13.6 s 12.2-14.7 INR in platelet poor plasma or blood by coagulation as say 1.1 0.8-1.4 Activated partial thromboplastin time (a PTT) in platelet poor plasma bycoagulation assay - 05/30/16 20:34 Activated partial thromboplastin time (a PTT) in platelet poor plasma bycoagulation assay 26 s 24-35 Comprehensive metabolic panel - 05/30/16 20:34 Serum or plasma sodium measurement (moles/volume) 135 mmol/L 135-145 Serum or plasma potassium measurement (moles/volume) 4.8 mmol/L 3.6-5.0 Serum or plasma chloride measurement (moles/volume) 108 mmol/L 98-107 Carbon dioxide 16 mmol/L 21-32 Serum or plasma anion gap determination (moles/volume) 11 mmol/L 5-14 Serum or plasma urea nitrogen measurement (mass/volume ) 24 mg/dL 7-18 Serum or plasma creatinine measurement (mass/volume) 2.43 mg/dL 0.60-1.30 Serum or plasma urea nitrogen/creatinine mass ratio 10 NRG Serum or plasma creatinine measurement w ith calculation of estimated glomerular filtration rate 26 NRG Serum or plasma glucose measurement (mass/volume) 486 mg/dL 70-105 Serum or plasma calcium measurement (mass/volume) 9.5 mg/dL 8.5-10.1 Serum or plasma total bilirubin measurement (mass/volu me) 0.6 mg/dL 0.1-1.0 Serum or plasma alkaline phosphatase rafat surement (enzymatic activity/volume) 64 U/L 40-136 Serum or plasma aspartate aminotransfera se measurement (enzymatic activity/volume) 17 U/L 5-34 Serum or plasma alanine aminotransferase measurement (enzymatic activity/volume) 20 U/L 0-55 Serum or plasma protein measurement (mass/volume) 7.0 g/dL 6.4-8.2 Serum or plasma albumin measurement (mass/volume) 4.1 g/dL 3.2-4.5 Magnesium - 05/30/16 20:34 Magnesium 1.8 mg/dL 1.8-2.4 Serum or plasma creatine kinase measurem ent (enzymatic activity/volume) - 05/30/16 20:34 Serum or plasma creatine kinase measurem ent (enzymatic activity/volume) 125 U/L 30-200 Serum or plasma creatine kinase MB measu rement (enzymatic activity/volume) - 05/30/16 20:34 Serum or plasma creatine kinase MB measu rement (enzymatic activity/volume) 3.7 ng/mL <6.6 Serum or plasma troponin i.cardiac measu rement (mass/volume) - 05/30/16 20:34 Serum or plasma troponin i.cardiac measurement (mass/v olume) < ng/mL <0.30 Serum or plasma amylase measurement (enz ymatic activity/volume) - 05/30/16 20:34 Serum or plasma amylase measurement (enzymatic activit y/volume) 100 U/L 25-125 Lipase - 05/30/16 20:34 Lipase 162 U/L 8-78 Serum or plasma lithium measurement (mol es/volume) - 05/30/16 20:34 BNP level 26.2 pg/mL <100.0 Arterial blood gas measurement - 7 21:20 Blood pCO2 34 mm[Hg] 35-45 Blood pO2 79 mm[Hg] 79-93 Arterial blood bicarbonate measurement (moles/volume) 18 mmol/L 23-27 Arterial blood base excess by calculation -6.9 mmo l/L -2.5-2.5 Arterial blood oxygen saturation measurement 96 % 94-100 * Inhaled oxygen flow rate ROOM AIR NRG Arterial blood pH measurement with patient temperature correction 7.34 7.37-7.43 Arterial blood carbon dioxide, total measurement (mole s/volume) 19.1 mmol/L 21.0-31.0 Body site LT RAD NRG Assessment of wrist artery patency prior to arterial p uncture YES-POS NRG Setting of ventilation mode NO NR G Measurement of body temperature 97.8 NRG Capillary blood glucose measurement by g lucometer (mass/volume) - 05/30/16 22:38 Capillary blood glucose measurement by glucometer (mas s/volume) 275 mg/dL 70-110 Methicillin resistant Staphylococcus aur eus (MRSA) screening culture - 05/30/16 23:05 Methicillin resistant Staphylococcus aureus (MRSA) scr eening culture NEG NRG Whole blood basic metabolic panel - 05/14 11/27 23:10 Serum or plasma sodium measurement (moles/volume) 138 mmol/L 135-145 Serum or plasma potassium measurement (moles/volume) 4.5 mmol/L 3.6-5.0 Serum or plasma chloride measurement (moles/volume) 110 mmol/L 98-107 Carbon dioxide 19 mmol/L 21-32 Serum or plasma anion gap determination (moles/volume) 9 mmol/L 5-14 Serum or plasma urea nitrogen measurement (mass/volume ) 24 mg/dL 7-18 Serum or plasma creatinine measurement (mass/volume) 2.05 mg/dL 0.60-1.30 Serum or plasma urea nitrogen/creatinine mass ratio 12 NRG Serum or plasma creatinine measurement w ith calculation of estimated glomerular filtration rate 32 NRG Serum or plasma glucose measurement (mass/volume) 231 mg/dL 70-105 Serum or plasma calcium measurement (mass/volume) 8.9 mg/dL 8.5-10.1 Capillary blood glucose measurement by g lucometer (mass/volume) - 05/31/16 00:12 Capillary blood glucose measurement by glucometer (mas s/volume) 184 mg/dL 70-110 Complete urinalysis with reflex to cultu re - 05/31/16 00:47 Urine color determination YELLOW NRG Urine clarity determination CLEAR NR G Urine pH measurement by test strip 5 5-9 Specific gravity of urine by test strip 1.015 1.016-1.022 Urine protein assay by test strip, semi-quantitative NEGATIVE NEGATIVE Urine glucose detection by automated test strip 4+ NEGATIVE Erythrocytes detection in urine sediment by light micr oscopy NEGATIVE NEGATIVE Urine ketones detection by automated test strip NE GATIVE NEGATIVE Urine nitrite detection by test strip NEGATIVE NEGATIVE Urine total bilirubin detection by test strip NEGA TIVE NEGATIVE Urine urobilinogen measurement by automated test strip (mass/volume) NORMAL NORMAL Urine leukocyte esterase detection by dipstick NEG ATIVE NEGATIVE Automated urine sediment erythrocyte cou nt by microscopy (number/high power field) NONE NRG Automated urine sediment leukocyte count by microscopy (number/high power field) NONE NRG Bacteria detection in urine sediment by light microsco py NEGATIVE NRG Squamous epithelial cells detection in u rine sediment by light microscopy 2-5 NRG Crystals detection in urine sediment by light microsco py NONE NRG Casts detection in urine sediment by light microscopy PRESENT NRG Mucus detection in urine sediment by light microscopy NEGATIVE NRG Complete urinalysis with reflex to culture NO NRG Hyaline casts detection in urine sediment by light carlos roscopy 5-10 NRG Capillary blood glucose measurement by g lucometer (mass/volume) - 05/31/16 01:13 Capillary blood glucose measurement by glucometer (mas s/volume) 170 mg/dL 70-110 Complete blood count (CBC) with automate d white blood cell (WBC) differential - 05/31/16 02:18 Blood leukocytes automated count (number/volume) 8.7 10*3/uL 4.3-11.0 Blood erythrocytes automated count (number/volume) 4.47 10*6/uL 4.35-5.85 Venous blood hemoglobin measurement (mass/volume) 13.3 g/dL 13.3-17.7 Blood hematocrit (volume fraction) 40 % 40-54 Automated erythrocyte mean corpuscular volume 90 [ foz_us] 80-99 Automated erythrocyte mean corpuscular h emoglobin (mass per erythrocyte) 30 pg 25-34 Automated erythrocyte mean corpuscular h emoglobin concentration measurement (mass/volume) 33 g/dL 32-36 Automated erythrocyte distribution width ratio 13. 4 % 10.0- 14.5 Automated blood platelet count (count/volume) 217 10*3/uL 130-400 Automated blood platelet mean volume measurement 10.2 [foz_us] 7.4-10.4 Automated blood neutrophils/100 leukocytes 68 % 42-75 Automated blood lymphocytes/100 leukocytes 21 % 12-44 Blood monocytes/100 leukocytes 9 % 0-12 Automated blood eosinophils/100 leukocytes 2 % 0-10 Automated blood basophils/100 leukocytes 0 % 0-10 Blood neutrophils automated count (number/volume) 5.9 10*3 1.8-7.8 Blood lymphocytes automated count (number/volume) 1.8 10*3 1.0-4.0 Blood monocytes automated count (number/volume) 0. 8 10*3 0.0-1.0 Automated eosinophil count 0.2 10*3/uL 0 .0-0.3 Automated blood basophil count (count/volume) 0.0 10*3/uL 0.0-0.1 Comprehensive metabolic panel - 05/31/16 02:18 Serum or plasma sodium measurement (moles/volume) 139 mmol/L 135-145 Serum or plasma potassium measurement (moles/volume) 5.0 mmol/L 3.6-5.0 Serum or plasma chloride measurement (moles/volume) 113 mmol/L 98-107 Carbon dioxide 18 mmol/L 21-32 Serum or plasma anion gap determination (moles/volume) 8 mmol/L 5-14 Serum or plasma urea nitrogen measurement (mass/volume ) 22 mg/dL 7-18 Serum or plasma creatinine measurement (mass/volume) 1.97 mg/dL 0.60-1.30 Serum or plasma urea nitrogen/creatinine mass ratio 11 NRG Serum or plasma creatinine measurement w ith calculation of estimated glomerular filtration rate 33 NRG Serum or plasma glucose measurement (mass/volume) 180 mg/dL 70-105 Serum or plasma calcium measurement (mass/volume) 8.5 mg/dL 8.5-10.1 Serum or plasma total bilirubin measurement (mass/volu me) 0.4 mg/dL 0.1-1.0 Serum or plasma alkaline phosphatase rafat surement (enzymatic activity/volume) 53 U/L 40-136 Serum or plasma aspartate aminotransfera se measurement (enzymatic activity/volume) 15 U/L 5-34 Serum or plasma alanine aminotransferase measurement (enzymatic activity/volume) 15 U/L 0-55 Serum or plasma protein measurement (mass/volume) 5.8 g/dL 6.4-8.2 Serum or plasma albumin measurement (mass/volume) 3.5 g/dL 3.2-4.5 Serum or plasma phosphate measurement (m ass/volume) - 05/31/16 02:18 Serum or plasma phosphate measurement (mass/volume) 2.5 mg/dL 2.3-4.7 Magnesium - 05/31/16 02:18 Magnesium 1.7 mg/dL 1.8-2.4 Lipid 1996 panel - 05/31/16 02:18 Serum or plasma triglyceride measurement (mass/volume) 126 mg/dL <150 Serum or plasma cholesterol measurement (mass/volume) 103 mg/dL < 200 Serum or plasma cholesterol in HDL measurement (mass/v olume) 26 mg/dL 40-60 Cholesterol in LDL [mass/volume] in serum or plasma by direct assay 62 mg/dL 1-129 Serum or plasma cholesterol in VLDL measurement (mass/ volume) 25 mg/dL 5-40 Serum or plasma amylase measurement (enz ymatic activity/volume) - 05/31/16 02:18 Serum or plasma amylase measurement (enzymatic activit y/volume) 65 U/L 25-125 Lipase - 05/31/16 02:18 Lipase 77 U/L 8-78 Serum or plasma troponin i.cardiac measu rement (mass/volume) - 05/31/16 02:18 Serum or plasma troponin i.cardiac measurement (mass/v olume) < ng/mL <0.30 Myoglobin, serum - 05/31/16 02:18 Myoglobin, serum 155.6 ng/mL 10.0-92.0 Capillary blood glucose measurement by g lucometer (mass/volume) - 05/31/16 02:19 Capillary blood glucose measurement by glucometer (mas s/volume) 157 mg/dL 70-110 Capillary blood glucose measurement by g lucometer (mass/volume) - 05/31/16 03:45 Capillary blood glucose measurement by glucometer (mas s/volume) 139 mg/dL 70-110 Capillary blood glucose measurement by g lucometer (mass/volume) - 05/31/16 04:41 Capillary blood glucose measurement by glucometer (mas s/volume) 123 mg/dL 70-110 Capillary blood glucose measurement by g lucometer (mass/volume) - 05/31/16 06:24 Capillary blood glucose measurement by glucometer (mas s/volume) 124 mg/dL 70-110 Capillary blood glucose measurement by g lucometer (mass/volume) - 05/31/16 08:40 Capillary blood glucose measurement by glucometer (mas s/volume) 95 mg/dL 70-110 Capillary blood glucose measurement by g lucometer (mass/volume) - 05/31/16 11:51 Capillary blood glucose measurement by glucometer (mas s/volume) 92 mg/dL 70-110 Whole blood basic metabolic panel - 05/14 12/28 12:34 Serum or plasma sodium measurement (moles/volume) 140 mmol/L 135-145 Serum or plasma potassium measurement (moles/volume) 5.2 mmol/L 3.6-5.0 Serum or plasma chloride measurement (moles/volume) 113 mmol/L 98-107 Carbon dioxide 20 mmol/L 21-32 Serum or plasma anion gap determination (moles/volume) 7 mmol/L 5-14 Serum or plasma urea nitrogen measurement (mass/volume ) 16 mg/dL 7-18 Serum or plasma creatinine measurement (mass/volume) 1.64 mg/dL 0.60-1.30 Serum or plasma urea nitrogen/creatinine mass ratio 10 NRG Serum or plasma creatinine measurement w ith calculation of estimated glomerular filtration rate 41 NRG Serum or plasma glucose measurement (mass/volume) 104 mg/dL 70-105 Serum or plasma calcium measurement (mass/volume) 8.7 mg/dL 8.5-10.1 Digoxin - 05/31/16 12:34 Digoxin 0.41 ng/mL 0.80-2.00 Capillary blood glucose measurement by g lucometer (mass/volume) - 05/31/16 16:51 Capillary blood glucose measurement by glucometer (mas s/volume) 109 mg/dL 70-110 Capillary blood glucose measurement by g lucometer (mass/volume) - 05/31/16 20:41 Capillary blood glucose measurement by glucometer (mas s/volume) 140 mg/dL 70-110 Capillary blood glucose measurement by g lucometer (mass/volume) - 06/01/16 03:35 Capillary blood glucose measurement by glucometer (mas s/volume) 78 mg/dL 70-110 Capillary blood glucose measurement by g lucometer (mass/volume) - 06/01/16 04:10 Capillary blood glucose measurement by glucometer (mas s/volume) 101 mg/dL 70-110 Capillary blood glucose measurement by g lucometer (mass/volume) - 06/01/16 06:00 Capillary blood glucose measurement by glucometer (mas s/volume) 191 mg/dL 70-110 Automated blood complete blood count (he mogram) panel - 06/01/16 08:15 Blood leukocytes automated count (number/volume) 6.4 10*3/uL 4.3-11.0 Blood erythrocytes automated count (number/volume) 4.36 10*6/uL 4.35-5.85 Venous blood hemoglobin measurement (mass/volume) 13.0 g/dL 13.3-17.7 Blood hematocrit (volume fraction) 39 % 40-54 Automated erythrocyte mean corpuscular volume 90 [ foz_us] 80-99 Automated erythrocyte mean corpuscular h emoglobin (mass per erythrocyte) 30 pg 25-34 Automated erythrocyte mean corpuscular h emoglobin concentration measurement (mass/volume) 33 g/dL 32-36 Automated erythrocyte distribution width ratio 13. 4 % 10.0- 14.5 Automated blood platelet count (count/volume) 214 10*3/uL 130-400 Automated blood platelet mean volume measurement 10.3 [foz_us] 7.4-10.4 Whole blood basic metabolic panel - 05/14 01/28 08:15 Serum or plasma sodium measurement (moles/volume) 141 mmol/L 135-145 Serum or plasma potassium measurement (moles/volume) 4.3 mmol/L 3.6-5.0 Serum or plasma chloride measurement (moles/volume) 112 mmol/L 98-107 Carbon dioxide 19 mmol/L 21-32 Serum or plasma anion gap determination (moles/volume) 10 mmol/L 5-14 Serum or plasma urea nitrogen measurement (mass/volume ) 14 mg/dL 7-18 Serum or plasma creatinine measurement (mass/volume) 1.55 mg/dL 0.60-1.30 Serum or plasma urea nitrogen/creatinine mass ratio 9 NRG Serum or plasma creatinine measurement w ith calculation of estimated glomerular filtration rate 44 NRG Serum or plasma glucose measurement (mass/volume) 210 mg/dL 70-105 Serum or plasma calcium measurement (mass/volume) 9.3 mg/dL 8.5-10.1 Capillary blood glucose measurement by g lucometer (mass/volume) - 06/01/16 11:17 Capillary blood glucose measurement by glucometer (mas s/volume) 171 mg/dL 70-110 Complete urinalysis with reflex to cultu re - 06/05/16 12:11 Urine color determination YELLOW NRG Urine clarity determination CLEAR NR G Urine pH measurement by test strip 6 5-9 Specific gravity of urine by test strip 1.010 1.016-1.022 Urine protein assay by test strip, semi-quantitative NEGATIVE NEGATIVE Urine glucose detection by automated test strip 1+ NEGATIVE Erythrocytes detection in urine sediment by light micr oscopy NEGATIVE NEGATIVE Urine ketones detection by automated test strip NE GATIVE NEGATIVE Urine nitrite detection by test strip NEGATIVE NEGATIVE Urine total bilirubin detection by test strip NEGA TIVE NEGATIVE Urine urobilinogen measurement by automated test strip (mass/volume) NORMAL NORMAL Urine leukocyte esterase detection by dipstick NEG ATIVE NEGATIVE Automated urine sediment erythrocyte cou nt by microscopy (number/high power field) NONE NRG Automated urine sediment leukocyte count by microscopy (number/high power field) NONE NRG Bacteria detection in urine sediment by light microsco py NEGATIVE NRG Squamous epithelial cells detection in u rine sediment by light microscopy 5-10 NRG Crystals detection in urine sediment by light microsco py NONE NRG Casts detection in urine sediment by light microscopy NONE NRG Mucus detection in urine sediment by light microscopy NEGATIVE NRG Complete urinalysis with reflex to culture NO NRG Complete blood count (CBC) with automate d white blood cell (WBC) differential - 06/05/16 12:21 Blood leukocytes automated count (number/volume) 8.9 10*3/uL 4.3-11.0 Blood erythrocytes automated count (number/volume) 5.20 10*6/uL 4.35-5.85 Venous blood hemoglobin measurement (mass/volume) 15.5 g/dL 13.3-17.7 Blood hematocrit (volume fraction) 46 % 40-54 Automated erythrocyte mean corpuscular volume 88 [ foz_us] 80-99 Automated erythrocyte mean corpuscular h emoglobin (mass per erythrocyte) 30 pg 25-34 Automated erythrocyte mean corpuscular h emoglobin concentration measurement (mass/volume) 34 g/dL 32-36 Automated erythrocyte distribution width ratio 13. 4 % 10.0- 14.5 Automated blood platelet count (count/volume) 279 10*3/uL 130-400 Automated blood platelet mean volume measurement 10.1 [foz_us] 7.4-10.4 Automated blood neutrophils/100 leukocytes 65 % 42-75 Automated blood lymphocytes/100 leukocytes 23 % 12-44 Blood monocytes/100 leukocytes 8 % 0-12 Automated blood eosinophils/100 leukocytes 3 % 0-10 Automated blood basophils/100 leukocytes 0 % 0-10 Blood neutrophils automated count (number/volume) 5.8 10*3 1.8-7.8 Blood lymphocytes automated count (number/volume) 2.1 10*3 1.0-4.0 Blood monocytes automated count (number/volume) 0. 7 10*3 0.0-1.0 Automated eosinophil count 0.3 10*3/uL 0 .0-0.3 Automated blood basophil count (count/volume) 0.0 10*3/uL 0.0-0.1 Whole blood basic metabolic panel - 05/15 07/28 12:21 Serum or plasma sodium measurement (moles/volume) 133 mmol/L 135-145 Serum or plasma potassium measurement (moles/volume) 4.3 mmol/L 3.6-5.0 Serum or plasma chloride measurement (moles/volume) 103 mmol/L 98-107 Carbon dioxide 21 mmol/L 21-32 Serum or plasma anion gap determination (moles/volume) 9 mmol/L 5-14 Serum or plasma urea nitrogen measurement (mass/volume ) 16 mg/dL 7-18 Serum or plasma creatinine measurement (mass/volume) 1.59 mg/dL 0.60-1.30 Serum or plasma urea nitrogen/creatinine mass ratio 10 NRG Serum or plasma creatinine measurement w ith calculation of estimated glomerular filtration rate 43 NRG Serum or plasma glucose measurement (mass/volume) 204 mg/dL 70-105 Serum or plasma calcium measurement (mass/volume) 10.2 mg/dL 8.5-10.1 Complete blood count (CBC) with automate d white blood cell (WBC) differential - 07/02/16 00:10 Blood leukocytes automated count (number/volume) 7.9 10*3/uL 4.3-11.0 Blood erythrocytes automated count (number/volume) 4.49 10*6/uL 4.35-5.85 Venous blood hemoglobin measurement (mass/volume) 13.1 g/dL 13.3-17.7 Blood hematocrit (volume fraction) 39 % 40-54 Automated erythrocyte mean corpuscular volume 87 [ foz_us] 80-99 Automated erythrocyte mean corpuscular h emoglobin (mass per erythrocyte) 29 pg 25-34 Automated erythrocyte mean corpuscular h emoglobin concentration measurement (mass/volume) 34 g/dL 32-36 Automated erythrocyte distribution width ratio 13. 3 % 10.0- 14.5 Automated blood platelet count (count/volume) 226 10*3/uL 130-400 Automated blood platelet mean volume measurement 11.0 [foz_us] 7.4-10.4 Automated blood neutrophils/100 leukocytes 57 % 42-75 Automated blood lymphocytes/100 leukocytes 29 % 12-44 Blood monocytes/100 leukocytes 9 % 0-12 Automated blood eosinophils/100 leukocytes 5 % 0-10 Automated blood basophils/100 leukocytes 1 % 0-10 Blood neutrophils automated count (number/volume) 4.5 10*3 1.8-7.8 Blood lymphocytes automated count (number/volume) 2.3 10*3 1.0-4.0 Blood monocytes automated count (number/volume) 0. 7 10*3 0.0-1.0 Automated eosinophil count 0.4 10*3/uL 0 .0-0.3 Automated blood basophil count (count/volume) 0.0 10*3/uL 0.0-0.1 Comprehensive metabolic panel - 07/02/16 00:10 Serum or plasma sodium measurement (moles/volume) 138 mmol/L 135-145 Serum or plasma potassium measurement (moles/volume) 4.0 mmol/L 3.6-5.0 Serum or plasma chloride measurement (moles/volume) 106 mmol/L 98-107 Carbon dioxide 21 mmol/L 21-32 Serum or plasma anion gap determination (moles/volume) 11 mmol/L 5-14 Serum or plasma urea nitrogen measurement (mass/volume ) 21 mg/dL 7-18 Serum or plasma creatinine measurement (mass/volume) 2.05 mg/dL 0.60-1.30 Serum or plasma urea nitrogen/creatinine mass ratio 10 NRG Serum or plasma creatinine measurement w ith calculation of estimated glomerular filtration rate 32 NRG Serum or plasma glucose measurement (mass/volume) 357 mg/dL 70-105 Serum or plasma calcium measurement (mass/volume) 9.6 mg/dL 8.5-10.1 Serum or plasma total bilirubin measurement (mass/volu me) 0.3 mg/dL 0.1-1.0 Serum or plasma alkaline phosphatase rafat surement (enzymatic activity/volume) 60 U/L 40-136 Serum or plasma aspartate aminotransfera se measurement (enzymatic activity/volume) 18 U/L 5-34 Serum or plasma alanine aminotransferase measurement (enzymatic activity/volume) 19 U/L 0-55 Serum or plasma protein measurement (mass/volume) 6.7 g/dL 6.4-8.2 Serum or plasma albumin measurement (mass/volume) 3.9 g/dL 3.2-4.5 Serum or plasma troponin i.cardiac measu rement (mass/volume) - 07/02/16 00:10 Serum or plasma troponin i.cardiac measurement (mass/v olume) < ng/mL <0.30 Digoxin - 07/02/16 00:10 Digoxin 0.62 ng/mL 0.80-2.00 Capillary blood glucose measurement by g lucometer (mass/volume) - 07/02/16 01:19 Capillary blood glucose measurement by glucometer (mas s/volume) 297 mg/dL 70-110 Complete urinalysis with reflex to cultu re - 07/02/16 01:55 Urine color determination YELLOW NRG Urine clarity determination CLEAR NR G Urine pH measurement by test strip 5 5-9 Specific gravity of urine by test strip 1.015 1.016-1.022 Urine protein assay by test strip, semi-quantitative 1+ NEGATIVE Urine glucose detection by automated test strip 4+ NEGATIVE Erythrocytes detection in urine sediment by light micr oscopy NEGATIVE NEGATIVE Urine ketones detection by automated test strip NE GATIVE NEGATIVE Urine nitrite detection by test strip NEGATIVE NEGATIVE Urine total bilirubin detection by test strip NEGA TIVE NEGATIVE Urine urobilinogen measurement by automated test strip (mass/volume) NORMAL NORMAL Urine leukocyte esterase detection by dipstick NEG ATIVE NEGATIVE Automated urine sediment erythrocyte cou nt by microscopy (number/high power field) RARE NRG Automated urine sediment leukocyte count by microscopy (number/high power field) [HPF] NRG Bacteria detection in urine sediment by light microsco py TRACE NRG Squamous epithelial cells detection in u rine sediment by light microscopy RARE NRG Crystals detection in urine sediment by light microsco py PRESENT NRG Casts detection in urine sediment by light microscopy PRESENT NRG Mucus detection in urine sediment by light microscopy SMALL NRG Complete urinalysis with reflex to culture NO NRG Amorphous sediment detection in urine sediment by ligh t microscopy FEW DEYVI URATES NRG Hyaline casts detection in urine sediment by light carlos roscopy 0-2 NRG Granular casts detection in urine sediment by light mi croscopy 2-5 NRG Complete urinalysis with reflex to cultu re - 07/23/16 19:00 Urine color determination YELLOW NRG Urine clarity determination CLEAR NR G Urine pH measurement by test strip 6 5-9 Specific gravity of urine by test strip 1.020 1.016-1.022 Urine protein assay by test strip, semi-quantitative 2+ NEGATIVE Urine glucose detection by automated test strip 4+ NEGATIVE Erythrocytes detection in urine sediment by light micr oscopy NEGATIVE NEGATIVE Urine ketones detection by automated test strip NE GATIVE NEGATIVE Urine nitrite detection by test strip NEGATIVE NEGATIVE Urine total bilirubin detection by test strip NEGA TIVE NEGATIVE Urine urobilinogen measurement by automated test strip (mass/volume) NORMAL NORMAL Urine leukocyte esterase detection by dipstick NEG ATIVE NEGATIVE Automated urine sediment erythrocyte cou nt by microscopy (number/high power field) NONE NRG Automated urine sediment leukocyte count by microscopy (number/high power field) [HPF] NRG Bacteria detection in urine sediment by light microsco py NEGATIVE NRG Squamous epithelial cells detection in u rine sediment by light microscopy 2-5 NRG Crystals detection in urine sediment by light microsco py NONE NRG Casts detection in urine sediment by light microscopy NONE NRG Mucus detection in urine sediment by light microscopy NEGATIVE NRG Complete urinalysis with reflex to culture NO NRG Complete blood count (CBC) with automate d white blood cell (WBC) differential - 07/23/16 19:00 Blood leukocytes automated count (number/volume) 8.1 10*3/uL 4.3-11.0 Blood erythrocytes automated count (number/volume) 4.93 10*6/uL 4.35-5.85 Venous blood hemoglobin measurement (mass/volume) 14.4 g/dL 13.3-17.7 Blood hematocrit (volume fraction) 42 % 40-54 Automated erythrocyte mean corpuscular volume 86 [ foz_us] 80-99 Automated erythrocyte mean corpuscular h emoglobin (mass per erythrocyte) 29 pg 25-34 Automated erythrocyte mean corpuscular h emoglobin concentration measurement (mass/volume) 34 g/dL 32-36 Automated erythrocyte distribution width ratio 13. 8 % 10.0- 14.5 Automated blood platelet count (count/volume) 249 10*3/uL 130-400 Automated blood platelet mean volume measurement 10.6 [foz_us] 7.4-10.4 Automated blood neutrophils/100 leukocytes 70 % 42-75 Automated blood lymphocytes/100 leukocytes 22 % 12-44 Blood monocytes/100 leukocytes 6 % 0-12 Automated blood eosinophils/100 leukocytes 2 % 0-10 Automated blood basophils/100 leukocytes 1 % 0-10 Blood neutrophils automated count (number/volume) 5.6 10*3 1.8-7.8 Blood lymphocytes automated count (number/volume) 1.8 10*3 1.0-4.0 Blood monocytes automated count (number/volume) 0. 5 10*3 0.0-1.0 Automated eosinophil count 0.2 10*3/uL 0 .0-0.3 Automated blood basophil count (count/volume) 0.0 10*3/uL 0.0-0.1 Comprehensive metabolic panel - 07/23/16 19:00 Serum or plasma sodium measurement (moles/volume) 136 mmol/L 135-145 Serum or plasma potassium measurement (moles/volume) 4.9 mmol/L 3.6-5.0 Serum or plasma chloride measurement (moles/volume) 103 mmol/L 98-107 Carbon dioxide 20 mmol/L 21-32 Serum or plasma anion gap determination (moles/volume) 13 mmol/L 5-14 Serum or plasma urea nitrogen measurement (mass/volume ) 22 mg/dL 7-18 Serum or plasma creatinine measurement (mass/volume) 2.29 mg/dL 0.60-1.30 Serum or plasma urea nitrogen/creatinine mass ratio 10 NRG Serum or plasma creatinine measurement w ith calculation of estimated glomerular filtration rate 28 NRG Serum or plasma glucose measurement (mass/volume) 379 mg/dL 70-105 Serum or plasma calcium measurement (mass/volume) 9.8 mg/dL 8.5-10.1 Serum or plasma total bilirubin measurement (mass/volu me) 0.5 mg/dL 0.1-1.0 Serum or plasma alkaline phosphatase rafat surement (enzymatic activity/volume) 64 U/L 40-136 Serum or plasma aspartate aminotransfera se measurement (enzymatic activity/volume) 26 U/L 5-34 Serum or plasma alanine aminotransferase measurement (enzymatic activity/volume) 27 U/L 0-55 Serum or plasma protein measurement (mass/volume) 7.4 g/dL 6.4-8.2 Serum or plasma albumin measurement (mass/volume) 4.3 g/dL 3.2-4.5 Serum or plasma amylase measurement (enz ymatic activity/volume) - 08/30/16 16:19 Serum or plasma amylase measurement (enzymatic activit y/volume) 77 U/L 25-125 Lipase - 08/30/16 16:19 Lipase 110 U/L 8-78 Complete blood count (CBC) with automate d white blood cell (WBC) differential - 09/05/16 16:55 Blood leukocytes automated count (number/volume) 7.8 10*3/uL 4.3-11.0 Blood erythrocytes automated count (number/volume) 4.32 10*6/uL 4.35-5.85 Venous blood hemoglobin measurement (mass/volume) 12.7 g/dL 13.3-17.7 Blood hematocrit (volume fraction) 38 % 40-54 Automated erythrocyte mean corpuscular volume 88 [ foz_us] 80-99 Automated erythrocyte mean corpuscular h emoglobin (mass per erythrocyte) 29 pg 25-34 Automated erythrocyte mean corpuscular h emoglobin concentration measurement (mass/volume) 33 g/dL 32-36 Automated erythrocyte distribution width ratio 14. 6 % 10.0- 14.5 Automated blood platelet count (count/volume) 253 10*3/uL 130-400 Automated blood platelet mean volume measurement 10.0 [foz_us] 7.4-10.4 Automated blood neutrophils/100 leukocytes 66 % 42-75 Automated blood lymphocytes/100 leukocytes 24 % 12-44 Blood monocytes/100 leukocytes 8 % 0-12 Automated blood eosinophils/100 leukocytes 2 % 0-10 Automated blood basophils/100 leukocytes 1 % 0-10 Blood neutrophils automated count (number/volume) 5.2 10*3 1.8-7.8 Blood lymphocytes automated count (number/volume) 1.8 10*3 1.0-4.0 Blood monocytes automated count (number/volume) 0. 6 10*3 0.0-1.0 Automated eosinophil count 0.2 10*3/uL 0 .0-0.3 Automated blood basophil count (count/volume) 0.0 10*3/uL 0.0-0.1 Comprehensive metabolic panel - 09/05/16 16:55 Serum or plasma sodium measurement (moles/volume) 137 mmol/L 135-145 Serum or plasma potassium measurement (moles/volume) 4.2 mmol/L 3.6-5.0 Serum or plasma chloride measurement (moles/volume) 105 mmol/L 98-107 Carbon dioxide 22 mmol/L 21-32 Serum or plasma anion gap determination (moles/volume) 10 mmol/L 5-14 Serum or plasma urea nitrogen measurement (mass/volume ) 17 mg/dL 7-18 Serum or plasma creatinine measurement (mass/volume) 1.83 mg/dL 0.60-1.30 Serum or plasma urea nitrogen/creatinine mass ratio 9 NRG Serum or plasma creatinine measurement w ith calculation of estimated glomerular filtration rate 36 NRG Serum or plasma glucose measurement (mass/volume) 235 mg/dL 70-105 Serum or plasma calcium measurement (mass/volume) 9.7 mg/dL 8.5-10.1 Serum or plasma total bilirubin measurement (mass/volu me) 0.3 mg/dL 0.1-1.0 Serum or plasma alkaline phosphatase rafat surement (enzymatic activity/volume) 51 U/L 40-136 Serum or plasma aspartate aminotransfera se measurement (enzymatic activity/volume) 17 U/L 5-34 Serum or plasma alanine aminotransferase measurement (enzymatic activity/volume) 18 U/L 0-55 Serum or plasma protein measurement (mass/volume) 6.5 g/dL 6.4-8.2 Serum or plasma albumin measurement (mass/volume) 3.9 g/dL 3.2-4.5 Magnesium - 09/05/16 16:55 Magnesium 1.7 mg/dL 1.8-2.4 Digoxin - 09/05/16 16:55 Digoxin 0.49 ng/mL 0.80-2.00 Serum or plasma lithium measurement (mol es/volume) - 09/05/16 16:55 BNP level 24.1 pg/mL <100.0 Complete urinalysis with reflex to cultu re - 09/05/16 17:50 Urine color determination YELLOW NRG Urine clarity determination CLEAR NR G Urine pH measurement by test strip 5 5-9 Specific gravity of urine by test strip 1.020 1.016-1.022 Urine protein assay by test strip, semi-quantitative NEGATIVE NEGATIVE Urine glucose detection by automated test strip 2+ NEGATIVE Erythrocytes detection in urine sediment by light micr oscopy NEGATIVE NEGATIVE Urine ketones detection by automated test strip NE GATIVE NEGATIVE Urine nitrite detection by test strip NEGATIVE NEGATIVE Urine total bilirubin detection by test strip NEGA TIVE NEGATIVE Urine urobilinogen measurement by automated test strip (mass/volume) NORMAL NORMAL Urine leukocyte esterase detection by dipstick 1+ NEGATIVE Automated urine sediment erythrocyte cou nt by microscopy (number/high power field) NONE NRG Automated urine sediment leukocyte count by microscopy (number/high power field) [HPF] NRG Bacteria detection in urine sediment by light microsco py NONE NRG Squamous epithelial cells detection in u rine sediment by light microscopy 10-25 NRG Crystals detection in urine sediment by light microsco py PRESENT NRG Casts detection in urine sediment by light microscopy NONE NRG Mucus detection in urine sediment by light microscopy NEGATIVE NRG Complete urinalysis with reflex to culture NO NRG Amorphous sediment detection in urine sediment by ligh t microscopy FEW DEYVI URATES NRG Methicillin resistant Staphylococcus aur eus (MRSA) screening culture - 09/19/16 00:00 Methicillin resistant Staphylococcus aureus (MRSA) scr eening culture NEG NRG Complete blood count (CBC) with automate d white blood cell (WBC) differential - 09/19/16 21:08 Blood leukocytes automated count (number/volume) 8.2 10*3/uL 4.3-11.0 Blood erythrocytes automated count (number/volume) 4.41 10*6/uL 4.35-5.85 Venous blood hemoglobin measurement (mass/volume) 12.9 g/dL 13.3-17.7 Blood hematocrit (volume fraction) 39 % 40-54 Automated erythrocyte mean corpuscular volume 89 [ foz_us] 80-99 Automated erythrocyte mean corpuscular h emoglobin (mass per erythrocyte) 29 pg 25-34 Automated erythrocyte mean corpuscular h emoglobin concentration measurement (mass/volume) 33 g/dL 32-36 Automated erythrocyte distribution width ratio 14. 4 % 10.0- 14.5 Automated blood platelet count (count/volume) 264 10*3/uL 130-400 Automated blood platelet mean volume measurement 10.4 [foz_us] 7.4-10.4 Automated blood neutrophils/100 leukocytes 69 % 42-75 Automated blood lymphocytes/100 leukocytes 21 % 12-44 Blood monocytes/100 leukocytes 8 % 0-12 Automated blood eosinophils/100 leukocytes 2 % 0-10 Automated blood basophils/100 leukocytes 1 % 0-10 Blood neutrophils automated count (number/volume) 5.7 10*3 1.8-7.8 Blood lymphocytes automated count (number/volume) 1.7 10*3 1.0-4.0 Blood monocytes automated count (number/volume) 0. 7 10*3 0.0-1.0 Automated eosinophil count 0.1 10*3/uL 0 .0-0.3 Automated blood basophil count (count/volume) 0.0 10*3/uL 0.0-0.1 PT panel in platelet poor plasma by coag ulation assay - 09/19/16 21:08 Prothrombin time (PT) in platelet poor plasma by coagu lation assay 17.2 s 12.2-14.7 INR in platelet poor plasma or blood by coagulation as say 1.4 0.8-1.4 Activated partial thromboplastin time (a PTT) in platelet poor plasma bycoagulation assay - 09/19/16 21:08 Activated partial thromboplastin time (a PTT) in platelet poor plasma bycoagulation assay 31 s 24-35 Comprehensive metabolic panel - 09/19/16 21:08 Serum or plasma sodium measurement (moles/volume) 137 mmol/L 135-145 Serum or plasma potassium measurement (moles/volume) 3.8 mmol/L 3.6-5.0 Serum or plasma chloride measurement (moles/volume) 104 mmol/L 98-107 Carbon dioxide 21 mmol/L 21-32 Serum or plasma anion gap determination (moles/volume) 12 mmol/L 5-14 Serum or plasma urea nitrogen measurement (mass/volume ) 22 mg/dL 7-18 Serum or plasma creatinine measurement (mass/volume) 1.94 mg/dL 0.60-1.30 Serum or plasma urea nitrogen/creatinine mass ratio 11 NRG Serum or plasma creatinine measurement w ith calculation of estimated glomerular filtration rate 34 NRG Serum or plasma glucose measurement (mass/volume) 345 mg/dL 70-105 Serum or plasma calcium measurement (mass/volume) 9.8 mg/dL 8.5-10.1 Serum or plasma total bilirubin measurement (mass/volu me) 0.4 mg/dL 0.1-1.0 Serum or plasma alkaline phosphatase rafat surement (enzymatic activity/volume) 57 U/L 40-136 Serum or plasma aspartate aminotransfera se measurement (enzymatic activity/volume) 16 U/L 5-34 Serum or plasma alanine aminotransferase measurement (enzymatic activity/volume) 19 U/L 0-55 Serum or plasma protein measurement (mass/volume) 7.1 g/dL 6.4-8.2 Serum or plasma albumin measurement (mass/volume) 4.2 g/dL 3.2-4.5 Magnesium - 09/19/16 21:08 Magnesium 2.0 mg/dL 1.8-2.4 Serum or plasma troponin i.cardiac measu rement (mass/volume) - 09/19/16 21:08 Serum or plasma troponin i.cardiac measurement (mass/v olume) < ng/mL <0.30 Myoglobin, serum - 09/19/16 21:08 Myoglobin, serum 79.4 ng/mL 10.0-92.0 Digoxin - 09/19/16 21:08 Digoxin 0.49 ng/mL 0.80-2.00 Capillary blood glucose measurement by g lucometer (mass/volume) - 09/19/16 21:12 Capillary blood glucose measurement by glucometer (mas s/volume) 314 mg/dL 70-110 Complete blood count (CBC) with automate d white blood cell (WBC) differential - 09/20/16 03:50 Blood leukocytes automated count (number/volume) 7.6 10*3/uL 4.3-11.0 Blood erythrocytes automated count (number/volume) 4.12 10*6/uL 4.35-5.85 Venous blood hemoglobin measurement (mass/volume) 12.2 g/dL 13.3-17.7 Blood hematocrit (volume fraction) 37 % 40-54 Automated erythrocyte mean corpuscular volume 89 [ foz_us] 80-99 Automated erythrocyte mean corpuscular h emoglobin (mass per erythrocyte) 30 pg 25-34 Automated erythrocyte mean corpuscular h emoglobin concentration measurement (mass/volume) 33 g/dL 32-36 Automated erythrocyte distribution width ratio 14. 4 % 10.0- 14.5 Automated blood platelet count (count/volume) 250 10*3/uL 130-400 Automated blood platelet mean volume measurement 10.6 [foz_us] 7.4-10.4 Automated blood neutrophils/100 leukocytes 65 % 42-75 Automated blood lymphocytes/100 leukocytes 25 % 12-44 Blood monocytes/100 leukocytes 8 % 0-12 Automated blood eosinophils/100 leukocytes 2 % 0-10 Automated blood basophils/100 leukocytes 0 % 0-10 Blood neutrophils automated count (number/volume) 4.9 10*3 1.8-7.8 Blood lymphocytes automated count (number/volume) 1.9 10*3 1.0-4.0 Blood monocytes automated count (number/volume) 0. 6 10*3 0.0-1.0 Automated eosinophil count 0.2 10*3/uL 0 .0-0.3 Automated blood basophil count (count/volume) 0.0 10*3/uL 0.0-0.1 Comprehensive metabolic panel - 09/20/16 03:50 Serum or plasma sodium measurement (moles/volume) 139 mmol/L 135-145 Serum or plasma potassium measurement (moles/volume) 3.8 mmol/L 3.6-5.0 Serum or plasma chloride measurement (moles/volume) 109 mmol/L 98-107 Carbon dioxide 21 mmol/L 21-32 Serum or plasma anion gap determination (moles/volume) 9 mmol/L 5-14 Serum or plasma urea nitrogen measurement (mass/volume ) 19 mg/dL 7-18 Serum or plasma creatinine measurement (mass/volume) 1.58 mg/dL 0.60-1.30 Serum or plasma urea nitrogen/creatinine mass ratio 12 NRG Serum or plasma creatinine measurement w ith calculation of estimated glomerular filtration rate 43 NRG Serum or plasma glucose measurement (mass/volume) 174 mg/dL 70-105 Serum or plasma calcium measurement (mass/volume) 9.0 mg/dL 8.5-10.1 Serum or plasma total bilirubin measurement (mass/volu me) 0.4 mg/dL 0.1-1.0 Serum or plasma alkaline phosphatase rafat surement (enzymatic activity/volume) 50 U/L 40-136 Serum or plasma aspartate aminotransfera se measurement (enzymatic activity/volume) 12 U/L 5-34 Serum or plasma alanine aminotransferase measurement (enzymatic activity/volume) 15 U/L 0-55 Serum or plasma protein measurement (mass/volume) 6.1 g/dL 6.4-8.2 Serum or plasma albumin measurement (mass/volume) 3.7 g/dL 3.2-4.5 Lipid 1996 panel - 09/20/16 03:50 Serum or plasma triglyceride measurement (mass/volume) 90 mg/dL <150 Serum or plasma cholesterol measurement (mass/volume) 107 mg/dL < 200 Serum or plasma cholesterol in HDL measurement (mass/v olume) 32 mg/dL 40-60 Cholesterol in LDL [mass/volume] in serum or plasma by direct assay 58 mg/dL 1-129 Serum or plasma cholesterol in VLDL measurement (mass/ volume) 18 mg/dL 5-40 Complete blood count (CBC) with automate d white blood cell (WBC) differential - 09/22/16 05:20 Blood leukocytes automated count (number/volume) 8.1 10*3/uL 4.3-11.0 Blood erythrocytes automated count (number/volume) 4.58 10*6/uL 4.35-5.85 Venous blood hemoglobin measurement (mass/volume) 13.4 g/dL 13.3-17.7 Blood hematocrit (volume fraction) 41 % 40-54 Automated erythrocyte mean corpuscular volume 88 [ foz_us] 80-99 Automated erythrocyte mean corpuscular h emoglobin (mass per erythrocyte) 29 pg 25-34 Automated erythrocyte mean corpuscular h emoglobin concentration measurement (mass/volume) 33 g/dL 32-36 Automated erythrocyte distribution width ratio 14. 3 % 10.0- 14.5 Automated blood platelet count (count/volume) 273 10*3/uL 130-400 Automated blood platelet mean volume measurement 10.4 [foz_us] 7.4-10.4 Automated blood neutrophils/100 leukocytes 53 % 42-75 Automated blood lymphocytes/100 leukocytes 34 % 12-44 Blood monocytes/100 leukocytes 10 % 0-12 Automated blood eosinophils/100 leukocytes 3 % 0-10 Automated blood basophils/100 leukocytes 0 % 0-10 Blood neutrophils automated count (number/volume) 4.3 10*3 1.8-7.8 Blood lymphocytes automated count (number/volume) 2.8 10*3 1.0-4.0 Blood monocytes automated count (number/volume) 0. 8 10*3 0.0-1.0 Automated eosinophil count 0.2 10*3/uL 0 .0-0.3 Automated blood basophil count (count/volume) 0.0 10*3/uL 0.0-0.1 PT panel in platelet poor plasma by coag ulation assay - 09/22/16 05:20 Prothrombin time (PT) in platelet poor plasma by coagu lation assay 14.4 s 12.2-14.7 INR in platelet poor plasma or blood by coagulation as say 1.2 0.8-1.4 Activated partial thromboplastin time (a PTT) in platelet poor plasma bycoagulation assay - 09/22/16 05:20 Activated partial thromboplastin time (a PTT) in platelet poor plasma bycoagulation assay 30 s 24-35 Comprehensive metabolic panel - 09/22/16 05:20 Serum or plasma sodium measurement (moles/volume) 138 mmol/L 135-145 Serum or plasma potassium measurement (moles/volume) 3.7 mmol/L 3.6-5.0 Serum or plasma chloride measurement (moles/volume) 105 mmol/L 98-107 Carbon dioxide 23 mmol/L 21-32 Serum or plasma anion gap determination (moles/volume) 10 mmol/L 5-14 Serum or plasma urea nitrogen measurement (mass/volume ) 18 mg/dL 7-18 Serum or plasma creatinine measurement (mass/volume) 1.67 mg/dL 0.60-1.30 Serum or plasma urea nitrogen/creatinine mass ratio 11 NRG Serum or plasma creatinine measurement w ith calculation of estimated glomerular filtration rate 40 NRG Serum or plasma glucose measurement (mass/volume) 209 mg/dL 70-105 Serum or plasma calcium measurement (mass/volume) 10.2 mg/dL 8.5-10.1 Serum or plasma total bilirubin measurement (mass/volu me) 0.4 mg/dL 0.1-1.0 Serum or plasma alkaline phosphatase rafat surement (enzymatic activity/volume) 59 U/L 40-136 Serum or plasma aspartate aminotransfera se measurement (enzymatic activity/volume) 14 U/L 5-34 Serum or plasma alanine aminotransferase measurement (enzymatic activity/volume) 17 U/L 0-55 Serum or plasma protein measurement (mass/volume) 7.0 g/dL 6.4-8.2 Serum or plasma albumin measurement (mass/volume) 4.1 g/dL 3.2-4.5 Magnesium - 09/22/16 05:20 Magnesium 1.9 mg/dL 1.8-2.4 Serum or plasma troponin i.cardiac measu rement (mass/volume) - 09/22/16 05:20 Serum or plasma troponin i.cardiac measurement (mass/v olume) < ng/mL <0.30 Myoglobin, serum - 09/22/16 05:20 Myoglobin, serum 57.0 ng/mL 10.0-92.0 Serum or plasma troponin i.cardiac measu rement (mass/volume) - 09/22/16 09:39 Serum or plasma troponin i.cardiac measurement (mass/v olume) < ng/mL <0.30 Capillary blood glucose measurement by g lucometer (mass/volume) - 09/22/16 13:25 Capillary blood glucose measurement by glucometer (mas s/volume) 154 mg/dL 70-110 Serum or plasma troponin i.cardiac measu rement (mass/volume) - 09/22/16 19:20 Serum or plasma troponin i.cardiac measurement (mass/v olume) < ng/mL <0.30 Capillary blood glucose measurement by g lucometer (mass/volume) - 09/22/16 22:50 Capillary blood glucose measurement by glucometer (mas s/volume) 161 mg/dL 70-110 Automated blood complete blood count (he mogram) panel - 09/23/16 03:40 Blood leukocytes automated count (number/volume) 7.8 10*3/uL 4.3-11.0 Blood erythrocytes automated count (number/volume) 4.39 10*6/uL 4.35-5.85 Venous blood hemoglobin measurement (mass/volume) 13.0 g/dL 13.3-17.7 Blood hematocrit (volume fraction) 39 % 40-54 Automated erythrocyte mean corpuscular volume 88 [ foz_us] 80-99 Automated erythrocyte mean corpuscular h emoglobin (mass per erythrocyte) 30 pg 25-34 Automated erythrocyte mean corpuscular h emoglobin concentration measurement (mass/volume) 34 g/dL 32-36 Automated erythrocyte distribution width ratio 14. 6 % 10.0- 14.5 Automated blood platelet count (count/volume) 283 10*3/uL 130-400 Automated blood platelet mean volume measurement 10.5 [foz_us] 7.4-10.4 Lipid 1996 panel - 09/23/16 03:40 Serum or plasma triglyceride measurement (mass/volume) 139 mg/dL <150 Serum or plasma cholesterol measurement (mass/volume) 112 mg/dL < 200 Serum or plasma cholesterol in HDL measurement (mass/v olume) 28 mg/dL 40-60 Cholesterol in LDL [mass/volume] in serum or plasma by direct assay 62 mg/dL 1-129 Serum or plasma cholesterol in VLDL measurement (mass/ volume) 28 mg/dL 5-40 Whole blood basic metabolic panel - 09/11 07/28 03:40 Serum or plasma sodium measurement (moles/volume) 141 mmol/L 135-145 Serum or plasma potassium measurement (moles/volume) 3.8 mmol/L 3.6-5.0 Serum or plasma chloride measurement (moles/volume) 108 mmol/L 98-107 Carbon dioxide 21 mmol/L 21-32 Serum or plasma anion gap determination (moles/volume) 12 mmol/L 5-14 Serum or plasma urea nitrogen measurement (mass/volume ) 16 mg/dL 7-18 Serum or plasma creatinine measurement (mass/volume) 1.43 mg/dL 0.60-1.30 Serum or plasma urea nitrogen/creatinine mass ratio 11 NRG Serum or plasma creatinine measurement w ith calculation of estimated glomerular filtration rate 48 NRG Serum or plasma glucose measurement (mass/volume) 102 mg/dL 70-105 Serum or plasma calcium measurement (mass/volume) 9.3 mg/dL 8.5-10.1 Complete blood count (CBC) with automate d white blood cell (WBC) differential - 11/27/16 18:10 Blood leukocytes automated count (number/volume) 8.7 10*3/uL 4.3-11.0 Blood erythrocytes automated count (number/volume) 4.58 10*6/uL 4.35-5.85 Venous blood hemoglobin measurement (mass/volume) 13.6 g/dL 13.3-17.7 Blood hematocrit (volume fraction) 41 % 40-54 Automated erythrocyte mean corpuscular volume 89 [ foz_us] 80-99 Automated erythrocyte mean corpuscular h emoglobin (mass per erythrocyte) 30 pg 25-34 Automated erythrocyte mean corpuscular h emoglobin concentration measurement (mass/volume) 34 g/dL 32-36 Automated erythrocyte distribution width ratio 13. 4 % 10.0- 14.5 Automated blood platelet count (count/volume) 300 10*3/uL 130-400 Automated blood platelet mean volume measurement 10.2 [foz_us] 7.4-10.4 Automated blood neutrophils/100 leukocytes 65 % 42-75 Automated blood lymphocytes/100 leukocytes 25 % 12-44 Blood monocytes/100 leukocytes 8 % 0-12 Automated blood eosinophils/100 leukocytes 2 % 0-10 Automated blood basophils/100 leukocytes 0 % 0-10 Blood neutrophils automated count (number/volume) 5.6 10*3 1.8-7.8 Blood lymphocytes automated count (number/volume) 2.2 10*3 1.0-4.0 Blood monocytes automated count (number/volume) 0. 7 10*3 0.0-1.0 Automated eosinophil count 0.2 10*3/uL 0 .0-0.3 Automated blood basophil count (count/volume) 0.0 10*3/uL 0.0-0.1 Comprehensive metabolic panel - 11/27/16 18:10 Serum or plasma sodium measurement (moles/volume) 133 mmol/L 135-145 Serum or plasma potassium measurement (moles/volume) 4.5 mmol/L 3.6-5.0 Serum or plasma chloride measurement (moles/volume) 103 mmol/L 98-107 Carbon dioxide 22 mmol/L 21-32 Serum or plasma anion gap determination (moles/volume) 8 mmol/L 5-14 Serum or plasma urea nitrogen measurement (mass/volume ) 14 mg/dL 7-18 Serum or plasma creatinine measurement (mass/volume) 2.11 mg/dL 0.60-1.30 Serum or plasma urea nitrogen/creatinine mass ratio 7 NRG Serum or plasma creatinine measurement w ith calculation of estimated glomerular filtration rate 31 NRG Serum or plasma glucose measurement (mass/volume) 192 mg/dL 70-105 Serum or plasma calcium measurement (mass/volume) 9.8 mg/dL 8.5-10.1 Serum or plasma total bilirubin measurement (mass/volu me) 0.6 mg/dL 0.1-1.0 Serum or plasma alkaline phosphatase rafat surement (enzymatic activity/volume) 58 U/L 40-136 Serum or plasma aspartate aminotransfera se measurement (enzymatic activity/volume) 15 U/L 5-34 Serum or plasma alanine aminotransferase measurement (enzymatic activity/volume) 18 U/L 0-55 Serum or plasma protein measurement (mass/volume) 7.5 g/dL 6.4-8.2 Serum or plasma albumin measurement (mass/volume) 4.3 g/dL 3.2-4.5 Magnesium - 11/27/16 18:10 Magnesium 1.7 mg/dL 1.8-2.4 Serum or plasma troponin i.cardiac measu rement (mass/volume) - 11/27/16 18:10 Serum or plasma troponin i.cardiac measurement (mass/v olume) < ng/mL <0.30 Serum or plasma lithium measurement (mol es/volume) - 11/27/16 18:10 BNP level 22.0 pg/mL <100.0 Complete urinalysis with reflex to cultu re - 11/27/16 18:32 Urine color determination YELLOW NRG Urine clarity determination CLEAR NR G Urine pH measurement by test strip 5 5-9 Specific gravity of urine by test strip 1.020 1.016-1.022 Urine protein assay by test strip, semi-quantitative 1+ NEGATIVE Urine glucose detection by automated test strip 3+ NEGATIVE Erythrocytes detection in urine sediment by light micr oscopy NEGATIVE NEGATIVE Urine ketones detection by automated test strip NE GATIVE NEGATIVE Urine nitrite detection by test strip NEGATIVE NEGATIVE Urine total bilirubin detection by test strip NEGA TIVE NEGATIVE Urine urobilinogen measurement by automated test strip (mass/volume) NORMAL NORMAL Urine leukocyte esterase detection by dipstick NEG ATIVE NEGATIVE Automated urine sediment erythrocyte cou nt by microscopy (number/high power field) NONE NRG Automated urine sediment leukocyte count by microscopy (number/high power field) NONE NRG Bacteria detection in urine sediment by light microsco py NONE NRG Crystals detection in urine sediment by light microsco py NONE NRG Casts detection in urine sediment by light microscopy PRESENT NRG Mucus detection in urine sediment by light microscopy NEGATIVE NRG Complete urinalysis with reflex to culture NO NRG Hyaline casts detection in urine sediment by light carlos roscopy 5-10 NRG Granular casts detection in urine sediment by light mi croscopy 0-2 NRG Complete blood count (CBC) with automate d white blood cell (WBC) differential - 12/05/16 03:46 Blood leukocytes automated count (number/volume) 6.7 10*3/uL 4.3-11.0 Blood erythrocytes automated count (number/volume) 4.24 10*6/uL 4.35-5.85 Venous blood hemoglobin measurement (mass/volume) 12.4 g/dL 13.3-17.7 Blood hematocrit (volume fraction) 37 % 40-54 Automated erythrocyte mean corpuscular volume 88 [ foz_us] 80-99 Automated erythrocyte mean corpuscular h emoglobin (mass per erythrocyte) 29 pg 25-34 Automated erythrocyte mean corpuscular h emoglobin concentration measurement (mass/volume) 33 g/dL 32-36 Automated erythrocyte distribution width ratio 13. 5 % 10.0- 14.5 Automated blood platelet count (count/volume) 256 10*3/uL 130-400 Automated blood platelet mean volume measurement 10.1 [foz_us] 7.4-10.4 Automated blood neutrophils/100 leukocytes 57 % 42-75 Automated blood lymphocytes/100 leukocytes 31 % 12-44 Blood monocytes/100 leukocytes 10 % 0-12 Automated blood eosinophils/100 leukocytes 2 % 0-10 Automated blood basophils/100 leukocytes 0 % 0-10 Blood neutrophils automated count (number/volume) 3.8 10*3 1.8-7.8 Blood lymphocytes automated count (number/volume) 2.1 10*3 1.0-4.0 Blood monocytes automated count (number/volume) 0. 7 10*3 0.0-1.0 Automated eosinophil count 0.2 10*3/uL 0 .0-0.3 Automated blood basophil count (count/volume) 0.0 10*3/uL 0.0-0.1 PT panel in platelet poor plasma by coag ulation assay - 12/05/16 03:46 Prothrombin time (PT) in platelet poor plasma by coagu lation assay 15.6 s 12.2-14.7 INR in platelet poor plasma or blood by coagulation as say 1.3 0.8-1.4 Activated partial thromboplastin time (a PTT) in platelet poor plasma bycoagulation assay - 12/05/16 03:46 Activated partial thromboplastin time (a PTT) in platelet poor plasma bycoagulation assay 30 s 24-35 Comprehensive metabolic panel - 12/05/16 03:46 Serum or plasma sodium measurement (moles/volume) 141 mmol/L 135-145 Serum or plasma potassium measurement (moles/volume) 3.6 mmol/L 3.6-5.0 Serum or plasma chloride measurement (moles/volume) 105 mmol/L 98-107 Carbon dioxide 23 mmol/L 21-32 Serum or plasma anion gap determination (moles/volume) 13 mmol/L 5-14 Serum or plasma urea nitrogen measurement (mass/volume ) 12 mg/dL 7-18 Serum or plasma creatinine measurement (mass/volume) 1.54 mg/dL 0.60-1.30 Serum or plasma urea nitrogen/creatinine mass ratio 8 NRG Serum or plasma creatinine measurement w ith calculation of estimated glomerular filtration rate 44 NRG Serum or plasma glucose measurement (mass/volume) 161 mg/dL 70-105 Serum or plasma calcium measurement (mass/volume) 9.4 mg/dL 8.5-10.1 Serum or plasma total bilirubin measurement (mass/volu me) 0.4 mg/dL 0.1-1.0 Serum or plasma alkaline phosphatase rafat surement (enzymatic activity/volume) 53 U/L 40-136 Serum or plasma aspartate aminotransfera se measurement (enzymatic activity/volume) 14 U/L 5-34 Serum or plasma alanine aminotransferase measurement (enzymatic activity/volume) 18 U/L 0-55 Serum or plasma protein measurement (mass/volume) 6.8 g/dL 6.4-8.2 Serum or plasma albumin measurement (mass/volume) 3.9 g/dL 3.2-4.5 Magnesium - 12/05/16 03:46 Magnesium 2.2 mg/dL 1.8-2.4 Serum or plasma troponin i.cardiac measu rement (mass/volume) - 12/05/16 03:46 Serum or plasma troponin i.cardiac measurement (mass/v olume) < ng/mL <0.30 Serum or plasma lithium measurement (mol es/volume) - 12/05/16 03:46 BNP level 19.1 pg/mL <100.0 Myoglobin, serum - 12/05/16 03:46 Myoglobin, serum 56.1 ng/mL 10.0-92.0 Serum or plasma amylase measurement (enz ymatic activity/volume) - 12/05/16 03:46 Serum or plasma amylase measurement (enzymatic activit y/volume) 188 U/L 25-125 Serum or plasma amylase measurement (enz ymatic activity/volume) - 12/05/16 03:46 Serum or plasma amylase measurement (enzymatic activit y/volume) 188 U/L 25-125 Lipase - 12/05/16 03:46 Lipase 535 U/L 8-78 Serum or plasma troponin i.cardiac measu rement (mass/volume) - 12/05/16 09:40 Serum or plasma troponin i.cardiac measurement (mass/v olume) < ng/mL <0.30 Serum or plasma troponin i.cardiac measu rement (mass/volume) - 12/05/16 15:35 Serum or plasma troponin i.cardiac measurement (mass/v olume) < ng/mL <0.30 Complete blood count (CBC) with automate d white blood cell (WBC) differential - 12/16/16 17:26 Blood leukocytes automated count (number/volume) 7.7 10*3/uL 4.3-11.0 Blood erythrocytes automated count (number/volume) 4.90 10*6/uL 4.35-5.85 Venous blood hemoglobin measurement (mass/volume) 14.3 g/dL 13.3-17.7 Blood hematocrit (volume fraction) 43 % 40-54 Automated erythrocyte mean corpuscular volume 88 [ foz_us] 80-99 Automated erythrocyte mean corpuscular h emoglobin (mass per erythrocyte) 29 pg 25-34 Automated erythrocyte mean corpuscular h emoglobin concentration measurement (mass/volume) 33 g/dL 32-36 Automated erythrocyte distribution width ratio 13. 7 % 10.0- 14.5 Automated blood platelet count (count/volume) 303 10*3/uL 130-400 Automated blood platelet mean volume measurement 9.8 [foz_us] 7.4-10.4 Automated blood neutrophils/100 leukocytes 57 % 42-75 Automated blood lymphocytes/100 leukocytes 32 % 12-44 Blood monocytes/100 leukocytes 9 % 0-12 Automated blood eosinophils/100 leukocytes 2 % 0-10 Automated blood basophils/100 leukocytes 0 % 0-10 Blood neutrophils automated count (number/volume) 4.4 10*3 1.8-7.8 Blood lymphocytes automated count (number/volume) 2.4 10*3 1.0-4.0 Blood monocytes automated count (number/volume) 0. 7 10*3 0.0-1.0 Automated eosinophil count 0.1 10*3/uL 0 .0-0.3 Automated blood basophil count (count/volume) 0.0 10*3/uL 0.0-0.1 Comprehensive metabolic panel - 12/16/16 17:26 Serum or plasma sodium measurement (moles/volume) 139 mmol/L 135-145 Serum or plasma potassium measurement (moles/volume) 4.1 mmol/L 3.6-5.0 Serum or plasma chloride measurement (moles/volume) 108 mmol/L 98-107 Carbon dioxide 21 mmol/L 21-32 Serum or plasma anion gap determination (moles/volume) 10 mmol/L 5-14 Serum or plasma urea nitrogen measurement (mass/volume ) 15 mg/dL 7-18 Serum or plasma creatinine measurement (mass/volume) 1.47 mg/dL 0.60-1.30 Serum or plasma urea nitrogen/creatinine mass ratio 10 NRG Serum or plasma creatinine measurement w ith calculation of estimated glomerular filtration rate 47 NRG Serum or plasma glucose measurement (mass/volume) 83 mg/dL 70-105 Serum or plasma calcium measurement (mass/volume) 10.1 mg/dL 8.5-10.1 Serum or plasma total bilirubin measurement (mass/volu me) 0.6 mg/dL 0.1-1.0 Serum or plasma alkaline phosphatase rafat surement (enzymatic activity/volume) 73 U/L 40-136 Serum or plasma aspartate aminotransfera se measurement (enzymatic activity/volume) 19 U/L 5-34 Serum or plasma alanine aminotransferase measurement (enzymatic activity/volume) 20 U/L 0-55 Serum or plasma protein measurement (mass/volume) 7.8 g/dL 6.4-8.2 Serum or plasma albumin measurement (mass/volume) 4.4 g/dL 3.2-4.5 Magnesium - 12/16/16 17:26 Magnesium 2.0 mg/dL 1.8-2.4 Serum or plasma troponin i.cardiac measu rement (mass/volume) - 12/16/16 17:26 Serum or plasma troponin i.cardiac measurement (mass/v olume) < ng/mL <0.30 Lipase - 12/16/16 17:26 Lipase 114 U/L 8-78 Digoxin - 12/16/16 17:26 Digoxin 0.55 ng/mL 0.80-2.00 Complete urinalysis with reflex to cultu re - 12/16/16 17:41 Urine color determination YELLOW NRG Urine clarity determination CLEAR NR G Urine pH measurement by test strip 6 5-9 Specific gravity of urine by test strip 1.015 1.016-1.022 Urine protein assay by test strip, semi-quantitative 1+ NEGATIVE Urine glucose detection by automated test strip 2+ NEGATIVE Erythrocytes detection in urine sediment by light micr oscopy NEGATIVE NEGATIVE Urine ketones detection by automated test strip NE GATIVE NEGATIVE Urine nitrite detection by test strip NEGATIVE NEGATIVE Urine total bilirubin detection by test strip NEGA TIVE NEGATIVE Urine urobilinogen measurement by automated test strip (mass/volume) NORMAL NORMAL Urine leukocyte esterase detection by dipstick NEG ATIVE NEGATIVE Automated urine sediment erythrocyte cou nt by microscopy (number/high power field) NONE NRG Automated urine sediment leukocyte count by microscopy (number/high power field) NONE NRG Bacteria detection in urine sediment by light microsco py NEGATIVE NRG Squamous epithelial cells detection in u rine sediment by light microscopy NONE NRG Crystals detection in urine sediment by light microsco py NONE NRG Casts detection in urine sediment by light microscopy NONE NRG Mucus detection in urine sediment by light microscopy NEGATIVE NRG Complete urinalysis with reflex to culture NO NRG Capillary blood glucose measurement by g lucometer (mass/volume) - 12/16/16 18:05 Capillary blood glucose measurement by glucometer (mas s/volume) 60 mg/dL 70-110 Complete blood count (CBC) with automate d white blood cell (WBC) differential - 01/14/17 01:25 Blood leukocytes automated count (number/volume) 12.3 10*3/uL 4.3-11.0 Blood erythrocytes automated count (number/volume) 4.44 10*6/uL 4.35-5.85 Venous blood hemoglobin measurement (mass/volume) 12.8 g/dL 13.3-17.7 Blood hematocrit (volume fraction) 40 % 40-54 Automated erythrocyte mean corpuscular volume 89 [ foz_us] 80-99 Automated erythrocyte mean corpuscular h emoglobin (mass per erythrocyte) 29 pg 25-34 Automated erythrocyte mean corpuscular h emoglobin concentration measurement (mass/volume) 32 g/dL 32-36 Automated erythrocyte distribution width ratio 14. 0 % 10.0- 14.5 Automated blood platelet count (count/volume) 305 10*3/uL 130-400 Automated blood platelet mean volume measurement 10.2 [foz_us] 7.4-10.4 Automated blood neutrophils/100 leukocytes 86 % 42-75 Automated blood lymphocytes/100 leukocytes 4 % 12-44 Blood monocytes/100 leukocytes 8 % 0-12 Automated blood eosinophils/100 leukocytes 2 % 0-10 Automated blood basophils/100 leukocytes 0 % 0-10 Blood neutrophils automated count (number/volume) 10.6 10*3 1.8-7.8 Blood lymphocytes automated count (number/volume) 0.5 10*3 1.0-4.0 Blood monocytes automated count (number/volume) 0. 9 10*3 0.0-1.0 Automated eosinophil count 0.2 10*3/uL 0 .0-0.3 Automated blood basophil count (count/volume) 0.0 10*3/uL 0.0-0.1 Blood manual differential performed dete ction - 01/14/17 01:25 Blood monocytes/100 leukocytes 6 % NRG Manual blood segmented neutrophils/100 leukocytes 91 % NRG Blood band neutrophils/100 leukocytes 0 % NRG Manual blood lymphocytes/100 leukocytes 3 % NRG Manual eosinophils/100 leukocytes in nose 0 % NRG Manual blood basophils/100 leukocytes 0 % NRG Blood anisocytosis detection by light microscopy S LIGHT NR Comprehensive metabolic panel - 01/14/17 01:25 Serum or plasma sodium measurement (moles/volume) 141 mmol/L 135-145 Serum or plasma potassium measurement (moles/volume) 4.2 mmol/L 3.6-5.0 Serum or plasma chloride measurement (moles/volume) 104 mmol/L 98-107 Carbon dioxide 23 mmol/L 21-32 Serum or plasma anion gap determination (moles/volume) 14 mmol/L 5-14 Serum or plasma urea nitrogen measurement (mass/volume ) 18 mg/dL 7-18 Serum or plasma creatinine measurement (mass/volume) 1.64 mg/dL 0.60-1.30 Serum or plasma urea nitrogen/creatinine mass ratio 11 NRG Serum or plasma creatinine measurement w ith calculation of estimated glomerular filtration rate 41 NRG Serum or plasma glucose measurement (mass/volume) 93 mg/dL 70-105 Serum or plasma calcium measurement (mass/volume) 10.0 mg/dL 8.5-10.1 Serum or plasma total bilirubin measurement (mass/volu me) 0.5 mg/dL 0.1-1.0 Serum or plasma alkaline phosphatase rafat surement (enzymatic activity/volume) 68 U/L 40-136 Serum or plasma aspartate aminotransfera se measurement (enzymatic activity/volume) 24 U/L 5-34 Serum or plasma alanine aminotransferase measurement (enzymatic activity/volume) 20 U/L 0-55 Serum or plasma protein measurement (mass/volume) 7.8 g/dL 6.4-8.2 Serum or plasma albumin measurement (mass/volume) 4.2 g/dL 3.2-4.5 Serum or plasma lithium measurement (mol es/volume) - 01/14/17 01:25 BNP level 35.1 pg/mL <100.0 Complete urinalysis with reflex to cultu re - 01/14/17 01:55 Urine color determination YELLOW NRG Urine clarity determination CLEAR NR G Urine pH measurement by test strip 7 5-9 Specific gravity of urine by test strip 1.010 1.016-1.022 Urine protein assay by test strip, semi-quantitative NEGATIVE NEGATIVE Urine glucose detection by automated test strip NE GATIVE NEGATIVE Erythrocytes detection in urine sediment by light micr oscopy NEGATIVE NEGATIVE Urine ketones detection by automated test strip NE GATIVE NEGATIVE Urine nitrite detection by test strip NEGATIVE NEGATIVE Urine total bilirubin detection by test strip NEGA TIVE NEGATIVE Urine urobilinogen measurement by automated test strip (mass/volume) NORMAL NORMAL Urine leukocyte esterase detection by dipstick 1+ NEGATIVE Automated urine sediment erythrocyte cou nt by microscopy (number/high power field) NONE NRG Automated urine sediment leukocyte count by microscopy (number/high power field) RARE NRG Bacteria detection in urine sediment by light microsco py NEGATIVE NRG Squamous epithelial cells detection in u rine sediment by light microscopy RARE NRG Crystals detection in urine sediment by light microsco py NONE NRG Casts detection in urine sediment by light microscopy PRESENT NRG Mucus detection in urine sediment by light microscopy NEGATIVE NRG Complete urinalysis with reflex to culture NO NRG Hyaline casts detection in urine sediment by light carlos roscopy RARE NRG Serum or plasma troponin i.cardiac measu rement (mass/volume) - 04/22/17 21:20 Serum or plasma troponin i.cardiac measurement (mass/v olume) < ng/mL <0.30 Digoxin - 04/22/17 21:20 Digoxin 0.46 ng/mL 0.80-2.00 Complete blood count (CBC) with automate d white blood cell (WBC) differential - 04/22/17 21:20 Blood leukocytes automated count (number/volume) 6.6 10*3/uL 4.3-11.0 Blood erythrocytes automated count (number/volume) 4.75 10*6/uL 4.35-5.85 Venous blood hemoglobin measurement (mass/volume) 13.8 g/dL 13.3-17.7 Blood hematocrit (volume fraction) 41 % 40-54 Automated erythrocyte mean corpuscular volume 86 [ foz_us] 80-99 Automated erythrocyte mean corpuscular h emoglobin (mass per erythrocyte) 29 pg 25-34 Automated erythrocyte mean corpuscular h emoglobin concentration measurement (mass/volume) 34 g/dL 32-36 Automated erythrocyte distribution width ratio 14. 6 % 10.0- 14.5 Automated blood platelet count (count/volume) 254 10*3/uL 130-400 Automated blood platelet mean volume measurement 10.8 [foz_us] 7.4-10.4 Automated blood neutrophils/100 leukocytes 59 % 42-75 Automated blood lymphocytes/100 leukocytes 30 % 12-44 Blood monocytes/100 leukocytes 8 % 0-12 Automated blood eosinophils/100 leukocytes 2 % 0-10 Automated blood basophils/100 leukocytes 1 % 0-10 Blood neutrophils automated count (number/volume) 3.9 10*3 1.8-7.8 Blood lymphocytes automated count (number/volume) 2.0 10*3 1.0-4.0 Blood monocytes automated count (number/volume) 0. 5 10*3 0.0-1.0 Automated eosinophil count 0.2 10*3/uL 0 .0-0.3 Automated blood basophil count (count/volume) 0.0 10*3/uL 0.0-0.1 Comprehensive metabolic panel - 04/22/17 21:20 Serum or plasma sodium measurement (moles/volume) 138 mmol/L 135-145 Serum or plasma potassium measurement (moles/volume) 4.5 mmol/L 3.6-5.0 Serum or plasma chloride measurement (moles/volume) 105 mmol/L 98-107 Carbon dioxide 21 mmol/L 21-32 Serum or plasma anion gap determination (moles/volume) 12 mmol/L 5-14 Serum or plasma urea nitrogen measurement (mass/volume ) 16 mg/dL 7-18 Serum or plasma creatinine measurement (mass/volume) 1.42 mg/dL 0.60-1.30 Serum or plasma urea nitrogen/creatinine mass ratio 11 NRG Serum or plasma creatinine measurement w ith calculation of estimated glomerular filtration rate 49 NRG Serum or plasma glucose measurement (mass/volume) 310 mg/dL 70-105 Serum or plasma calcium measurement (mass/volume) 9.7 mg/dL 8.5-10.1 Serum or plasma total bilirubin measurement (mass/volu me) 0.3 mg/dL 0.1-1.0 Serum or plasma alkaline phosphatase rafat surement (enzymatic activity/volume) 66 U/L 40-136 Serum or plasma aspartate aminotransfera se measurement (enzymatic activity/volume) 18 U/L 5-34 Serum or plasma alanine aminotransferase measurement (enzymatic activity/volume) 19 U/L 0-55 Serum or plasma protein measurement (mass/volume) 7.5 g/dL 6.4-8.2 Serum or plasma albumin measurement (mass/volume) 4.2 g/dL 3.2-4.5 Complete blood count (CBC) with automate d white blood cell (WBC) differential - 07/19/17 03:50 Blood leukocytes automated count (number/volume) 6.2 10*3/uL 4.3-11.0 Blood erythrocytes automated count (number/volume) 3.91 10*6/uL 4.35-5.85 Venous blood hemoglobin measurement (mass/volume) 10.7 g/dL 13.3-17.7 Blood hematocrit (volume fraction) 33 % 40-54 Automated erythrocyte mean corpuscular volume 85 [ foz_us] 80-99 Automated erythrocyte mean corpuscular h emoglobin (mass per erythrocyte) 27 pg 25-34 Automated erythrocyte mean corpuscular h emoglobin concentration measurement (mass/volume) 32 g/dL 32-36 Automated erythrocyte distribution width ratio 14. 0 % 10.0- 14.5 Automated blood platelet count (count/volume) 279 10*3/uL 130-400 Automated blood platelet mean volume measurement 10.8 [foz_us] 7.4-10.4 Automated blood neutrophils/100 leukocytes 58 % 42-75 Automated blood lymphocytes/100 leukocytes 30 % 12-44 Blood monocytes/100 leukocytes 9 % 0-12 Automated blood eosinophils/100 leukocytes 2 % 0-10 Automated blood basophils/100 leukocytes 1 % 0-10 Blood neutrophils automated count (number/volume) 3.6 10*3 1.8-7.8 Blood lymphocytes automated count (number/volume) 1.9 10*3 1.0-4.0 Blood monocytes automated count (number/volume) 0. 6 10*3 0.0-1.0 Automated eosinophil count 0.1 10*3/uL 0 .0-0.3 Automated blood basophil count (count/volume) 0.0 10*3/uL 0.0-0.1 PT panel in platelet poor plasma by coag ulation assay - 07/19/17 03:50 Prothrombin time (PT) in platelet poor plasma by coagu lation assay 15.6 s 12.2-14.7 INR in platelet poor plasma or blood by coagulation as say 1.2 0.8-1.4 Activated partial thromboplastin time (a PTT) in platelet poor plasma bycoagulation assay - 07/19/17 03:50 Activated partial thromboplastin time (a PTT) in platelet poor plasma bycoagulation assay 31 s 24-35 Comprehensive metabolic panel - 07/19/17 03:50 Serum or plasma sodium measurement (moles/volume) 138 mmol/L 135-145 Serum or plasma potassium measurement (moles/volume) 3.9 mmol/L 3.6-5.0 Serum or plasma chloride measurement (moles/volume) 102 mmol/L 98-107 Carbon dioxide 26 mmol/L 21-32 Serum or plasma anion gap determination (moles/volume) 10 mmol/L 5-14 Serum or plasma urea nitrogen measurement (mass/volume ) 20 mg/dL 7-18 Serum or plasma creatinine measurement (mass/volume) 1.87 mg/dL 0.60-1.30 Serum or plasma urea nitrogen/creatinine mass ratio 11 NRG Serum or plasma creatinine measurement w ith calculation of estimated glomerular filtration rate 35 NRG Serum or plasma glucose measurement (mass/volume) 252 mg/dL 70-105 Serum or plasma calcium measurement (mass/volume) 9.6 mg/dL 8.5-10.1 Serum or plasma total bilirubin measurement (mass/volu me) 0.3 mg/dL 0.1-1.0 Serum or plasma alkaline phosphatase rafat surement (enzymatic activity/volume) 53 U/L 40-136 Serum or plasma aspartate aminotransfera se measurement (enzymatic activity/volume) 17 U/L 5-34 Serum or plasma alanine aminotransferase measurement (enzymatic activity/volume) 16 U/L 0-55 Serum or plasma protein measurement (mass/volume) 7.0 g/dL 6.4-8.2 Serum or plasma albumin measurement (mass/volume) 3.9 g/dL 3.2-4.5 Magnesium - 07/19/17 03:50 Magnesium 2.4 mg/dL 1.8-2.4 Serum or plasma creatine kinase measurem ent (enzymatic activity/volume) - 07/19/17 03:50 Serum or plasma creatine kinase measurem ent (enzymatic activity/volume) 188 U/L 30-200 Serum or plasma creatine kinase MB measu rement (enzymatic activity/volume) - 07/19/17 03:50 Serum or plasma creatine kinase MB measu rement (enzymatic activity/volume) 1.2 ng/mL <6.6 Serum or plasma troponin i.cardiac measu rement (mass/volume) - 07/19/17 03:50 Serum or plasma troponin i.cardiac measurement (mass/v olume) < ng/mL <0.30 Serum or plasma amylase measurement (enz ymatic activity/volume) - 07/19/17 03:50 Serum or plasma amylase measurement (enzymatic activit y/volume) 70 U/L 25-125 Lipase - 07/19/17 03:50 Lipase 87 U/L 8-78 Serum or plasma lithium measurement (mol es/volume) - 07/19/17 03:50 BNP level 37.9 pg/mL <100.0 Digoxin - 07/19/17 03:50 Digoxin 0.43 ng/mL 0.80-2.00 Serum or plasma troponin i.cardiac measu rement (mass/volume) - 07/19/17 06:34 Serum or plasma troponin i.cardiac measurement (mass/v olume) < ng/mL <0.30 Complete blood count (CBC) with automate d white blood cell (WBC) differential - 07/29/17 01:15 Blood leukocytes automated count (number/volume) 6.9 10*3/uL 4.3-11.0 Blood erythrocytes automated count (number/volume) 3.75 10*6/uL 4.35-5.85 Venous blood hemoglobin measurement (mass/volume) 10.2 g/dL 13.3-17.7 Blood hematocrit (volume fraction) 30 % 40-54 Automated erythrocyte mean corpuscular volume 81 [ foz_us] 80-99 Automated erythrocyte mean corpuscular h emoglobin (mass per erythrocyte) 27 pg 25-34 Automated erythrocyte mean corpuscular h emoglobin concentration measurement (mass/volume) 34 g/dL 32-36 Automated erythrocyte distribution width ratio 14. 1 % 10.0- 14.5 Automated blood platelet count (count/volume) 245 10*3/uL 130-400 Automated blood platelet mean volume measurement 9.7 [foz_us] 7.4-10.4 Automated blood neutrophils/100 leukocytes 59 % 42-75 Automated blood lymphocytes/100 leukocytes 28 % 12-44 Blood monocytes/100 leukocytes 10 % 0-12 Automated blood eosinophils/100 leukocytes 2 % 0-10 Automated blood basophils/100 leukocytes 1 % 0-10 Blood neutrophils automated count (number/volume) 4.1 10*3 1.8-7.8 Blood lymphocytes automated count (number/volume) 2.0 10*3 1.0-4.0 Blood monocytes automated count (number/volume) 0. 7 10*3 0.0-1.0 Automated eosinophil count 0.1 10*3/uL 0 .0-0.3 Automated blood basophil count (count/volume) 0.0 10*3/uL 0.0-0.1 PT panel in platelet poor plasma by coag ulation assay - 07/29/17 01:15 Prothrombin time (PT) in platelet poor plasma by coagu lation assay 18.9 s 12.2-14.7 INR in platelet poor plasma or blood by coagulation as say 1.6 0.8-1.4 Activated partial thromboplastin time (a PTT) in platelet poor plasma bycoagulation assay - 07/29/17 01:15 Activated partial thromboplastin time (a PTT) in platelet poor plasma bycoagulation assay 32 s 24-35 Comprehensive metabolic panel - 07/29/17 01:15 Serum or plasma sodium measurement (moles/volume) 138 mmol/L 135-145 Serum or plasma potassium measurement (moles/volume) 4.0 mmol/L 3.6-5.0 Serum or plasma chloride measurement (moles/volume) 106 mmol/L 98-107 Carbon dioxide 21 mmol/L 21-32 Serum or plasma anion gap determination (moles/volume) 11 mmol/L 5-14 Serum or plasma urea nitrogen measurement (mass/volume ) 29 mg/dL 7-18 Serum or plasma creatinine measurement (mass/volume) 2.67 mg/dL 0.60-1.30 Serum or plasma urea nitrogen/creatinine mass ratio 11 NRG Serum or plasma creatinine measurement w ith calculation of estimated glomerular filtration rate 23 NRG Serum or plasma glucose measurement (mass/volume) 209 mg/dL 70-105 Serum or plasma calcium measurement (mass/volume) 9.5 mg/dL 8.5-10.1 Serum or plasma total bilirubin measurement (mass/volu me) 0.2 mg/dL 0.1-1.0 Serum or plasma alkaline phosphatase rafat surement (enzymatic activity/volume) 53 U/L 40-136 Serum or plasma aspartate aminotransfera se measurement (enzymatic activity/volume) 32 U/L 5-34 Serum or plasma alanine aminotransferase measurement (enzymatic activity/volume) 20 U/L 0-55 Serum or plasma protein measurement (mass/volume) 6.3 g/dL 6.4-8.2 Serum or plasma albumin measurement (mass/volume) 3.8 g/dL 3.2-4.5 Magnesium - 07/29/17 01:15 Magnesium 1.8 mg/dL 1.8-2.4 Serum or plasma troponin i.cardiac measu rement (mass/volume) - 07/29/17 01:15 Serum or plasma troponin i.cardiac measurement (mass/v olume) < ng/mL <0.30 Digoxin - 07/29/17 01:15 Digoxin 0.41 ng/mL 0.80-2.00 Complete urinalysis with reflex to cultu re - 07/29/17 03:00 Urine color determination YELLOW NRG Urine clarity determination CLEAR NR G Urine pH measurement by test strip 5 5-9 Specific gravity of urine by test strip 1.020 1.016-1.022 Urine protein assay by test strip, semi-quantitative NEGATIVE NEGATIVE Urine glucose detection by automated test strip NE GATIVE NEGATIVE Erythrocytes detection in urine sediment by light micr oscopy NEGATIVE NEGATIVE Urine ketones detection by automated test strip NE GATIVE NEGATIVE Urine nitrite detection by test strip NEGATIVE NEGATIVE Urine total bilirubin detection by test strip NEGA TIVE NEGATIVE Urine urobilinogen measurement by automated test strip (mass/volume) NORMAL NORMAL Urine leukocyte esterase detection by dipstick 1+ NEGATIVE Automated urine sediment erythrocyte cou nt by microscopy (number/high power field) NONE NRG Automated urine sediment leukocyte count by microscopy (number/high power field) RARE NRG Bacteria detection in urine sediment by light microsco py NEGATIVE NRG Squamous epithelial cells detection in u rine sediment by light microscopy 0-2 NRG Crystals detection in urine sediment by light microsco py NONE NRG Casts detection in urine sediment by light microscopy PRESENT NRG Mucus detection in urine sediment by light microscopy NEGATIVE NRG Complete urinalysis with reflex to culture NO NRG Hyaline casts detection in urine sediment by light carlos roscopy 10-25 NRG Complete urinalysis with reflex to cultu re - 08/31/17 15:50 Urine color determination YELLOW NRG Urine clarity determination CLEAR NR G Urine pH measurement by test strip 7 5-9 Specific gravity of urine by test strip 1.010 1.016-1.022 Urine protein assay by test strip, semi-quantitative 1+ NEGATIVE Urine glucose detection by automated test strip 4+ NEGATIVE Erythrocytes detection in urine sediment by light micr oscopy NEGATIVE NEGATIVE Urine ketones detection by automated test strip NE GATIVE NEGATIVE Urine nitrite detection by test strip NEGATIVE NEGATIVE Urine total bilirubin detection by test strip NEGA TIVE NEGATIVE Urine urobilinogen measurement by automated test strip (mass/volume) NORMAL NORMAL Urine leukocyte esterase detection by dipstick NEG ATIVE NEGATIVE Automated urine sediment erythrocyte cou nt by microscopy (number/high power field) NONE NRG Automated urine sediment leukocyte count by microscopy (number/high power field) RARE NRG Bacteria detection in urine sediment by light microsco py NEGATIVE NRG Crystals detection in urine sediment by light microsco py NONE NRG Casts detection in urine sediment by light microscopy NONE NRG Mucus detection in urine sediment by light microscopy NEGATIVE NRG Complete urinalysis with reflex to culture NO NRG Complete blood count (CBC) with automate d white blood cell (WBC) differential - 09/06/17 15:00 Blood leukocytes automated count (number/volume) 5.3 10*3/uL 4.3-11.0 Blood erythrocytes automated count (number/volume) 4.87 10*6/uL 4.35-5.85 Venous blood hemoglobin measurement (mass/volume) 12.9 g/dL 13.3-17.7 Blood hematocrit (volume fraction) 40 % 40-54 Automated erythrocyte mean corpuscular volume 82 [ foz_us] 80-99 Automated erythrocyte mean corpuscular h emoglobin (mass per erythrocyte) 26 pg 25-34 Automated erythrocyte mean corpuscular h emoglobin concentration measurement (mass/volume) 32 g/dL 32-36 Automated erythrocyte distribution width ratio 15. 7 % 10.0- 14.5 Automated blood platelet count (count/volume) 321 10*3/uL 130-400 Automated blood platelet mean volume measurement 9.6 [foz_us] 7.4-10.4 Automated blood neutrophils/100 leukocytes 68 % 42-75 Automated blood lymphocytes/100 leukocytes 23 % 12-44 Blood monocytes/100 leukocytes 8 % 0-12 Automated blood eosinophils/100 leukocytes 1 % 0-10 Automated blood basophils/100 leukocytes 0 % 0-10 Blood neutrophils automated count (number/volume) 3.6 10*3 1.8-7.8 Blood lymphocytes automated count (number/volume) 1.2 10*3 1.0-4.0 Blood monocytes automated count (number/volume) 0. 4 10*3 0.0-1.0 Automated eosinophil count 0.1 10*3/uL 0 .0-0.3 Automated blood basophil count (count/volume) 0.0 10*3/uL 0.0-0.1 Comprehensive metabolic panel - 09/06/17 15:00 Serum or plasma sodium measurement (moles/volume) 138 mmol/L 135-145 Serum or plasma potassium measurement (moles/volume) 4.1 mmol/L 3.6-5.0 Serum or plasma chloride measurement (moles/volume) 105 mmol/L 98-107 Carbon dioxide 26 mmol/L 21-32 Serum or plasma anion gap determination (moles/volume) 7 mmol/L 5-14 Serum or plasma urea nitrogen measurement (mass/volume ) 15 mg/dL 7-18 Serum or plasma creatinine measurement (mass/volume) 1.56 mg/dL 0.60-1.30 Serum or plasma urea nitrogen/creatinine mass ratio 10 NRG Serum or plasma creatinine measurement w ith calculation of estimated glomerular filtration rate 44 NRG Serum or plasma glucose measurement (mass/volume) 191 mg/dL 70-105 Serum or plasma calcium measurement (mass/volume) 10.5 mg/dL 8.5-10.1 Serum or plasma total bilirubin measurement (mass/volu me) 0.5 mg/dL 0.1-1.0 Serum or plasma alkaline phosphatase rafat surement (enzymatic activity/volume) 59 U/L 40-136 Serum or plasma aspartate aminotransfera se measurement (enzymatic activity/volume) 35 U/L 5-34 Serum or plasma alanine aminotransferase measurement (enzymatic activity/volume) 36 U/L 0-55 Serum or plasma protein measurement (mass/volume) 8.4 g/dL 6.4-8.2 Serum or plasma albumin measurement (mass/volume) 4.6 g/dL 3.2-4.5 Lipase - 09/06/17 15:00 Lipase 68 U/L 8-78 Complete urinalysis with reflex to cultu re - 09/06/17 15:48 Urine color determination YELLOW NRG Urine clarity determination CLEAR NR G Urine pH measurement by test strip 6 5-9 Specific gravity of urine by test strip 1.015 1.016-1.022 Urine protein assay by test strip, semi-quantitative 2+ NEGATIVE Urine glucose detection by automated test strip NE GATIVE NEGATIVE Erythrocytes detection in urine sediment by light micr oscopy 2+ NEGATIVE Urine ketones detection by automated test strip NE GATIVE NEGATIVE Urine nitrite detection by test strip NEGATIVE NEGATIVE Urine total bilirubin detection by test strip NEGA TIVE NEGATIVE Urine urobilinogen measurement by automated test strip (mass/volume) NORMAL NORMAL Urine leukocyte esterase detection by dipstick NEG ATIVE NEGATIVE Automated urine sediment erythrocyte cou nt by microscopy (number/high power field) [HPF] NRG Automated urine sediment leukocyte count by microscopy (number/high power field) RARE NRG Bacteria detection in urine sediment by light microsco py NEGATIVE NRG Crystals detection in urine sediment by light microsco py NONE NRG Casts detection in urine sediment by light microscopy NONE NRG Mucus detection in urine sediment by light microscopy NEGATIVE NRG Complete urinalysis with reflex to culture NO NRG Complete blood count (CBC) with automate d white blood cell (WBC) differential - 10/12/17 15:15 Blood leukocytes automated count (number/volume) 4.7 10*3/uL 4.3-11.0 Blood erythrocytes automated count (number/volume) 4.12 10*6/uL 4.35-5.85 Venous blood hemoglobin measurement (mass/volume) 11.0 g/dL 13.3-17.7 Blood hematocrit (volume fraction) 35 % 40-54 Automated erythrocyte mean corpuscular volume 85 [ foz_us] 80-99 Automated erythrocyte mean corpuscular h emoglobin (mass per erythrocyte) 27 pg 25-34 Automated erythrocyte mean corpuscular h emoglobin concentration measurement (mass/volume) 32 g/dL 32-36 Automated erythrocyte distribution width ratio 16. 3 % 10.0- 14.5 Automated blood platelet count (count/volume) 255 10*3/uL 130-400 Automated blood platelet mean volume measurement 10.2 [foz_us] 7.4-10.4 Automated blood neutrophils/100 leukocytes 61 % 42-75 Automated blood lymphocytes/100 leukocytes 30 % 12-44 Blood monocytes/100 leukocytes 8 % 0-12 Automated blood eosinophils/100 leukocytes 2 % 0-10 Automated blood basophils/100 leukocytes 0 % 0-10 Blood neutrophils automated count (number/volume) 2.9 10*3 1.8-7.8 Blood lymphocytes automated count (number/volume) 1.4 10*3 1.0-4.0 Blood monocytes automated count (number/volume) 0. 4 10*3 0.0-1.0 Automated eosinophil count 0.1 10*3/uL 0 .0-0.3 Automated blood basophil count (count/volume) 0.0 10*3/uL 0.0-0.1 Complete urinalysis with reflex to cultu re - 10/12/17 15:15 Urine color determination YELLOW NRG Urine clarity determination SLIGHTLY CLOUDY NRG Urine pH measurement by test strip 8 5-9 Specific gravity of urine by test strip 1.010 1.016-1.022 Urine protein assay by test strip, semi-quantitative 1+ NEGATIVE Urine glucose detection by automated test strip 2+ NEGATIVE Erythrocytes detection in urine sediment by light micr oscopy NEGATIVE NEGATIVE Urine ketones detection by automated test strip NE GATIVE NEGATIVE Urine nitrite detection by test strip NEGATIVE NEGATIVE Urine total bilirubin detection by test strip NEGA TIVE NEGATIVE Urine urobilinogen measurement by automated test strip (mass/volume) NORMAL NORMAL Urine leukocyte esterase detection by dipstick 1+ NEGATIVE Automated urine sediment erythrocyte cou nt by microscopy (number/high power field) NONE NRG Automated urine sediment leukocyte count by microscopy (number/high power field) [HPF] NRG Bacteria detection in urine sediment by light microsco py NEGATIVE NRG Squamous epithelial cells detection in u rine sediment by light microscopy 0-2 NRG Crystals detection in urine sediment by light microsco py PRESENT NRG Casts detection in urine sediment by light microscopy NONE NRG Mucus detection in urine sediment by light microscopy SMALL NRG Complete urinalysis with reflex to culture NO NRG Amorphous sediment detection in urine sediment by ligh t microscopy LARGE DEYVI PHOSPHATE NRG Comprehensive metabolic panel - 10/12/17 15:15 Serum or plasma sodium measurement (moles/volume) 142 mmol/L 135-145 Serum or plasma potassium measurement (moles/volume) 4.5 mmol/L 3.6-5.0 Serum or plasma chloride measurement (moles/volume) 110 mmol/L 98-107 Carbon dioxide 24 mmol/L 21-32 Serum or plasma anion gap determination (moles/volume) 8 mmol/L 5-14 Serum or plasma urea nitrogen measurement (mass/volume ) 9 mg/dL 7-18 Serum or plasma creatinine measurement (mass/volume) 1.41 mg/dL 0.60-1.30 Serum or plasma urea nitrogen/creatinine mass ratio 6 NRG Serum or plasma creatinine measurement w ith calculation of estimated glomerular filtration rate 49 NRG Serum or plasma glucose measurement (mass/volume) 133 mg/dL 70-105 Serum or plasma calcium measurement (mass/volume) 9.4 mg/dL 8.5-10.1 Serum or plasma total bilirubin measurement (mass/volu me) 0.4 mg/dL 0.1-1.0 Serum or plasma alkaline phosphatase rafat surement (enzymatic activity/volume) 45 U/L 40-136 Serum or plasma aspartate aminotransfera se measurement (enzymatic activity/volume) 30 U/L 5-34 Serum or plasma alanine aminotransferase measurement (enzymatic activity/volume) 30 U/L 0-55 Serum or plasma protein measurement (mass/volume) 6.7 g/dL 6.4-8.2 Serum or plasma albumin measurement (mass/volume) 4.0 g/dL 3.2-4.5 Lipase - 10/12/17 15:15 Lipase 60 U/L 8-78 Sputum Gram stain - 01/13/18 22:39 Sputum Gram stain relevant, interpret with caution . NRG Bacterial sputum culture - 01/13/18 22:3 9 QUANTITY OF GROWTH . NRG Bacterial sputum culture USUAL RESP NRG Complete blood count (CBC) with automate d white blood cell (WBC) differential - 01/13/18 22:49 Blood leukocytes automated count (number/volume) 6.9 10*3/uL 4.3-11.0 Blood erythrocytes automated count (number/volume) 3.89 10*6/uL 4.35-5.85 Venous blood hemoglobin measurement (mass/volume) 10.9 g/dL 13.3-17.7 Blood hematocrit (volume fraction) 33 % 40-54 Automated erythrocyte mean corpuscular volume 85 [ foz_us] 80-99 Automated erythrocyte mean corpuscular h emoglobin (mass per erythrocyte) 28 pg 25-34 Automated erythrocyte mean corpuscular h emoglobin concentration measurement (mass/volume) 33 g/dL 32-36 Automated erythrocyte distribution width ratio 14. 2 % 10.0- 14.5 Automated blood platelet count (count/volume) 336 10*3/uL 130-400 Automated blood platelet mean volume measurement 9.2 [foz_us] 7.4-10.4 Automated blood neutrophils/100 leukocytes 62 % 42-75 Automated blood lymphocytes/100 leukocytes 29 % 12-44 Blood monocytes/100 leukocytes 8 % 0-12 Automated blood eosinophils/100 leukocytes 1 % 0-10 Automated blood basophils/100 leukocytes 0 % 0-10 Blood neutrophils automated count (number/volume) 4.2 10*3 1.8-7.8 Blood lymphocytes automated count (number/volume) 2.0 10*3 1.0-4.0 Blood monocytes automated count (number/volume) 0. 5 10*3 0.0-1.0 Automated eosinophil count 0.1 10*3/uL 0 .0-0.3 Automated blood basophil count (count/volume) 0.0 10*3/uL 0.0-0.1 Comprehensive metabolic panel - 01/13/18 22:49 Serum or plasma sodium measurement (moles/volume) 141 mmol/L 135-145 Serum or plasma potassium measurement (moles/volume) 3.9 mmol/L 3.6-5.0 Serum or plasma chloride measurement (moles/volume) 108 mmol/L 98-107 Carbon dioxide 21 mmol/L 21-32 Serum or plasma anion gap determination (moles/volume) 12 mmol/L 5-14 Serum or plasma urea nitrogen measurement (mass/volume ) 12 mg/dL 7-18 Serum or plasma creatinine measurement (mass/volume) 1.92 mg/dL 0.60-1.30 Serum or plasma urea nitrogen/creatinine mass ratio 6 NRG Serum or plasma creatinine measurement w ith calculation of estimated glomerular filtration rate 34 NRG Serum or plasma glucose measurement (mass/volume) 74 mg/dL 70-105 Serum or plasma calcium measurement (mass/volume) 10.3 mg/dL 8.5-10.1 Serum or plasma total bilirubin measurement (mass/volu me) 0.3 mg/dL 0.1-1.0 Serum or plasma alkaline phosphatase rafat surement (enzymatic activity/volume) 54 U/L 40-136 Serum or plasma aspartate aminotransfera se measurement (enzymatic activity/volume) 24 U/L 5-34 Serum or plasma alanine aminotransferase measurement (enzymatic activity/volume) 21 U/L 0-55 Serum or plasma protein measurement (mass/volume) 7.5 g/dL 6.4-8.2 Serum or plasma albumin measurement (mass/volume) 4.5 g/dL 3.2-4.5 CALCIUM CORRECTED 9.9 mg/dL 8.5-10.1 Complete blood count (CBC) with automate d white blood cell (WBC) differential - 01/24/18 17:42 Blood leukocytes automated count (number/volume) 5.9 10*3/uL 4.3-11.0 Blood erythrocytes automated count (number/volume) 3.90 10*6/uL 4.35-5.85 Venous blood hemoglobin measurement (mass/volume) 10.8 g/dL 13.3-17.7 Blood hematocrit (volume fraction) 33 % 40-54 Automated erythrocyte mean corpuscular volume 85 [ foz_us] 80-99 Automated erythrocyte mean corpuscular h emoglobin (mass per erythrocyte) 28 pg 25-34 Automated erythrocyte mean corpuscular h emoglobin concentration measurement (mass/volume) 32 g/dL 32-36 Automated erythrocyte distribution width ratio 14. 2 % 10.0- 14.5 Automated blood platelet count (count/volume) 346 10*3/uL 130-400 Automated blood platelet mean volume measurement 9.6 [foz_us] 7.4-10.4 Automated blood neutrophils/100 leukocytes 65 % 42-75 Automated blood lymphocytes/100 leukocytes 25 % 12-44 Blood monocytes/100 leukocytes 9 % 0-12 Automated blood eosinophils/100 leukocytes 1 % 0-10 Automated blood basophils/100 leukocytes 1 % 0-10 Blood neutrophils automated count (number/volume) 3.8 10*3 1.8-7.8 Blood lymphocytes automated count (number/volume) 1.4 10*3 1.0-4.0 Blood monocytes automated count (number/volume) 0. 5 10*3 0.0-1.0 Automated eosinophil count 0.1 10*3/uL 0 .0-0.3 Automated blood basophil count (count/volume) 0.0 10*3/uL 0.0-0.1 Comprehensive metabolic panel - 01/24/18 17:42 Serum or plasma sodium measurement (moles/volume) 135 mmol/L 135-145 Serum or plasma potassium measurement (moles/volume) 3.9 mmol/L 3.6-5.0 Serum or plasma chloride measurement (moles/volume) 106 mmol/L 98-107 Carbon dioxide 19 mmol/L 21-32 Serum or plasma anion gap determination (moles/volume) 10 mmol/L 5-14 Serum or plasma urea nitrogen measurement (mass/volume ) 15 mg/dL 7-18 Serum or plasma creatinine measurement (mass/volume) 1.95 mg/dL 0.60-1.30 Serum or plasma urea nitrogen/creatinine mass ratio 8 NRG Serum or plasma creatinine measurement w ith calculation of estimated glomerular filtration rate 34 NRG Serum or plasma glucose measurement (mass/volume) 149 mg/dL 70-105 Serum or plasma calcium measurement (mass/volume) 9.8 mg/dL 8.5-10.1 Serum or plasma total bilirubin measurement (mass/volu me) 0.5 mg/dL 0.1-1.0 Serum or plasma alkaline phosphatase rafat surement (enzymatic activity/volume) 50 U/L 40-136 Serum or plasma aspartate aminotransfera se measurement (enzymatic activity/volume) 40 U/L 5-34 Serum or plasma alanine aminotransferase measurement (enzymatic activity/volume) 26 U/L 0-55 Serum or plasma protein measurement (mass/volume) 7.0 g/dL 6.4-8.2 Serum or plasma albumin measurement (mass/volume) 4.3 g/dL 3.2-4.5 CALCIUM CORRECTED 9.6 mg/dL 8.5-10.1 Magnesium - 01/24/18 17:42 Magnesium 2.2 mg/dL 1.8-2.4 PT panel in platelet poor plasma by coag ulation assay - 01/24/18 17:42 Prothrombin time (PT) in platelet poor plasma by coagu lation assay 17.9 s 12.2-14.7 INR in platelet poor plasma or blood by coagulation as say 1.5 0.8-1.4 Activated partial thromboplastin time (a PTT) in platelet poor plasma bycoagulation assay - 01/24/18 17:42 Activated partial thromboplastin time (a PTT) in platelet poor plasma bycoagulation assay 34 s 24-35 Serum or plasma troponin i.cardiac measu rement (mass/volume) - 01/24/18 17:42 Serum or plasma troponin i.cardiac measurement (mass/v olume) < ng/mL <0.30 Serum or plasma thyrotropin measurement by detection limit <=0.05 miu/l (units/volume) - 01/24/18 17:42 Serum or plasma thyrotropin measurement by detection limit <=0.05 miu/l (units/volume) 3.22 u[iU]/mL 0.35-4.94 Digoxin - 01/24/18 17:42 Digoxin 1.13 ng/mL 0.80-2.00 Complete urinalysis with reflex to cultu re - 01/24/18 18:44 Urine color determination YELLOW NRG Urine clarity determination CLEAR NR G Urine pH measurement by test strip 6 5-9 Specific gravity of urine by test strip 1.010 1.016-1.022 Urine protein assay by test strip, semi-quantitative NEGATIVE NEGATIVE Urine glucose detection by automated test strip NE GATIVE NEGATIVE Erythrocytes detection in urine sediment by light micr oscopy NEGATIVE NEGATIVE Urine ketones detection by automated test strip NE GATIVE NEGATIVE Urine nitrite detection by test strip NEGATIVE NEGATIVE Urine total bilirubin detection by test strip NEGA TIVE NEGATIVE Urine urobilinogen measurement by automated test strip (mass/volume) NORMAL NORMAL Urine leukocyte esterase detection by dipstick 1+ NEGATIVE Automated urine sediment erythrocyte cou nt by microscopy (number/high power field) NONE NRG Automated urine sediment leukocyte count by microscopy (number/high power field) [HPF] NRG Bacteria detection in urine sediment by light microsco py TRACE NRG Crystals detection in urine sediment by light microsco py NONE NRG Casts detection in urine sediment by light microscopy NONE NRG Mucus detection in urine sediment by light microscopy NEGATIVE NRG Complete urinalysis with reflex to culture NO NRG Complete blood count (CBC) with automate d white blood cell (WBC) differential - 03/08/18 20:45 Blood leukocytes automated count (number/volume) 6.0 10*3/uL 4.3-11.0 Blood erythrocytes automated count (number/volume) 4.18 10*6/uL 4.35-5.85 Venous blood hemoglobin measurement (mass/volume) 11.1 g/dL 13.3-17.7 Blood hematocrit (volume fraction) 35 % 40-54 Automated erythrocyte mean corpuscular volume 84 [ foz_us] 80-99 Automated erythrocyte mean corpuscular h emoglobin (mass per erythrocyte) 27 pg 25-34 Automated erythrocyte mean corpuscular h emoglobin concentration measurement (mass/volume) 32 g/dL 32-36 Automated erythrocyte distribution width ratio 14. 8 % 10.0- 14.5 Automated blood platelet count (count/volume) 358 10*3/uL 130-400 Automated blood platelet mean volume measurement 9.1 [foz_us] 7.4-10.4 Automated blood neutrophils/100 leukocytes 67 % 42-75 Automated blood lymphocytes/100 leukocytes 24 % 12-44 Blood monocytes/100 leukocytes 7 % 0-12 Automated blood eosinophils/100 leukocytes 2 % 0-10 Automated blood basophils/100 leukocytes 1 % 0-10 Blood neutrophils automated count (number/volume) 4.0 10*3 1.8-7.8 Blood lymphocytes automated count (number/volume) 1.5 10*3 1.0-4.0 Blood monocytes automated count (number/volume) 0. 4 10*3 0.0-1.0 Automated eosinophil count 0.1 10*3/uL 0 .0-0.3 Automated blood basophil count (count/volume) 0.0 10*3/uL 0.0-0.1 Comprehensive metabolic panel - 03/08/18 20:45 Serum or plasma sodium measurement (moles/volume) 137 mmol/L 135-145 Serum or plasma potassium measurement (moles/volume) 4.1 mmol/L 3.6-5.0 Serum or plasma chloride measurement (moles/volume) 108 mmol/L 98-107 Carbon dioxide 17 mmol/L 21-32 Serum or plasma anion gap determination (moles/volume) 12 mmol/L 5-14 Serum or plasma urea nitrogen measurement (mass/volume ) 12 mg/dL 7-18 Serum or plasma creatinine measurement (mass/volume) 1.90 mg/dL 0.60-1.30 Serum or plasma urea nitrogen/creatinine mass ratio 6 NRG Serum or plasma creatinine measurement w ith calculation of estimated glomerular filtration rate 35 NRG Serum or plasma glucose measurement (mass/volume) 313 mg/dL 70-105 Serum or plasma calcium measurement (mass/volume) 9.7 mg/dL 8.5-10.1 Serum or plasma total bilirubin measurement (mass/volu me) 0.3 mg/dL 0.1-1.0 Serum or plasma alkaline phosphatase rafat surement (enzymatic activity/volume) 62 U/L 40-136 Serum or plasma aspartate aminotransfera se measurement (enzymatic activity/volume) 19 U/L 5-34 Serum or plasma alanine aminotransferase measurement (enzymatic activity/volume) 15 U/L 0-55 Serum or plasma protein measurement (mass/volume) 7.8 g/dL 6.4-8.2 Serum or plasma albumin measurement (mass/volume) 4.5 g/dL 3.2-4.5 CALCIUM CORRECTED 9.3 mg/dL 8.5-10.1 Serum or plasma troponin i.cardiac measu rement (mass/volume) - 03/08/18 20:50 Serum or plasma troponin i.cardiac measurement (mass/v olume) < ng/mL <0.30 Complete blood count (CBC) with automate d white blood cell (WBC) differential - 03/17/18 19:54 Blood leukocytes automated count (number/volume) 4.8 10*3/uL 4.3-11.0 Blood erythrocytes automated count (number/volume) 3.74 10*6/uL 4.35-5.85 Venous blood hemoglobin measurement (mass/volume) 9.8 g/dL 13.3-17.7 Blood hematocrit (volume fraction) 31 % 40-54 Automated erythrocyte mean corpuscular volume 84 [ foz_us] 80-99 Automated erythrocyte mean corpuscular h emoglobin (mass per erythrocyte) 26 pg 25-34 Automated erythrocyte mean corpuscular h emoglobin concentration measurement (mass/volume) 31 g/dL 32-36 Automated erythrocyte distribution width ratio 14. 3 % 10.0- 14.5 Automated blood platelet count (count/volume) 295 10*3/uL 130-400 Automated blood platelet mean volume measurement 9.4 [foz_us] 7.4-10.4 Automated blood neutrophils/100 leukocytes 58 % 42-75 Automated blood lymphocytes/100 leukocytes 29 % 12-44 Blood monocytes/100 leukocytes 11 % 0-12 Automated blood eosinophils/100 leukocytes 3 % 0-10 Automated blood basophils/100 leukocytes 1 % 0-10 Blood neutrophils automated count (number/volume) 2.8 10*3 1.8-7.8 Blood lymphocytes automated count (number/volume) 1.4 10*3 1.0-4.0 Blood monocytes automated count (number/volume) 0. 5 10*3 0.0-1.0 Automated eosinophil count 0.1 10*3/uL 0 .0-0.3 Automated blood basophil count (count/volume) 0.0 10*3/uL 0.0-0.1 Comprehensive metabolic panel - 03/17/18 19:54 Serum or plasma sodium measurement (moles/volume) 139 mmol/L 135-145 Serum or plasma potassium measurement (moles/volume) 3.6 mmol/L 3.6-5.0 Serum or plasma chloride measurement (moles/volume) 110 mmol/L 98-107 Carbon dioxide 19 mmol/L 21-32 Serum or plasma anion gap determination (moles/volume) 10 mmol/L 5-14 Serum or plasma urea nitrogen measurement (mass/volume ) 13 mg/dL 7-18 Serum or plasma creatinine measurement (mass/volume) 1.67 mg/dL 0.60-1.30 Serum or plasma urea nitrogen/creatinine mass ratio 8 NRG Serum or plasma creatinine measurement w ith calculation of estimated glomerular filtration rate 40 NRG Serum or plasma glucose measurement (mass/volume) 251 mg/dL 70-105 Serum or plasma calcium measurement (mass/volume) 9.3 mg/dL 8.5-10.1 Serum or plasma total bilirubin measurement (mass/volu me) 0.3 mg/dL 0.1-1.0 Serum or plasma alkaline phosphatase rafat surement (enzymatic activity/volume) 58 U/L 40-136 Serum or plasma aspartate aminotransfera se measurement (enzymatic activity/volume) 17 U/L 5-34 Serum or plasma alanine aminotransferase measurement (enzymatic activity/volume) 10 U/L 0-55 Serum or plasma protein measurement (mass/volume) 6.6 g/dL 6.4-8.2 Serum or plasma albumin measurement (mass/volume) 3.9 g/dL 3.2-4.5 CALCIUM CORRECTED 9.4 mg/dL 8.5-10.1 Serum or plasma lithium measurement (mol es/volume) - 03/17/18 19:54 BNP level 13.1 pg/mL <100.0 Serum or plasma troponin i.cardiac measu rement (mass/volume) - 03/17/18 19:54 Serum or plasma troponin i.cardiac measurement (mass/v olume) < ng/mL <0.30 Comprehensive metabolic panel - 06/23/18 09:40 Serum or plasma sodium measurement (moles/volume) 141 mmol/L 135-145 Serum or plasma potassium measurement (moles/volume) 3.7 mmol/L 3.6-5.0 Serum or plasma chloride measurement (moles/volume) 109 mmol/L 98-107 Carbon dioxide 24 mmol/L 21-32 Serum or plasma anion gap determination (moles/volume) 8 mmol/L 5-14 Serum or plasma urea nitrogen measurement (mass/volume ) 10 mg/dL 7-18 Serum or plasma creatinine measurement (mass/volume) 1.50 mg/dL 0.60-1.30 Serum or plasma urea nitrogen/creatinine mass ratio 7 NRG Serum or plasma creatinine measurement w ith calculation of estimated glomerular filtration rate 46 NRG Serum or plasma glucose measurement (mass/volume) 129 mg/dL 70-105 Serum or plasma calcium measurement (mass/volume) 9.9 mg/dL 8.5-10.1 Serum or plasma total bilirubin measurement (mass/volu me) 0.4 mg/dL 0.1-1.0 Serum or plasma alkaline phosphatase rafat surement (enzymatic activity/volume) 64 U/L 40-136 Serum or plasma aspartate aminotransfera se measurement (enzymatic activity/volume) 21 U/L 5-34 Serum or plasma alanine aminotransferase measurement (enzymatic activity/volume) 16 U/L 0-55 Serum or plasma protein measurement (mass/volume) 7.1 g/dL 6.4-8.2 Serum or plasma albumin measurement (mass/volume) 4.1 g/dL 3.2-4.5 CALCIUM CORRECTED 9.8 mg/dL 8.5-10.1 Serum or plasma troponin i.cardiac measu rement (mass/volume) - 06/23/18 09:40 Serum or plasma troponin i.cardiac measurement (mass/v olume) < ng/mL <0.028 Serum or plasma lithium measurement (mol es/volume) - 06/23/18 09:40 BNP level 21.8 pg/mL <100.0 Complete blood count (CBC) with automate d white blood cell (WBC) differential - 07/24/18 17:16 Blood leukocytes automated count (number/volume) 6.9 10*3/uL 4.3-11.0 Blood erythrocytes automated count (number/volume) 4.44 10*6/uL 4.35-5.85 Venous blood hemoglobin measurement (mass/volume) 11.7 g/dL 13.3-17.7 Blood hematocrit (volume fraction) 36 % 40-54 Automated erythrocyte mean corpuscular volume 82 [ foz_us] 80-99 Automated erythrocyte mean corpuscular h emoglobin (mass per erythrocyte) 26 pg 25-34 Automated erythrocyte mean corpuscular h emoglobin concentration measurement (mass/volume) 32 g/dL 32-36 Automated erythrocyte distribution width ratio 18. 2 % 10.0- 14.5 Automated blood platelet count (count/volume) 264 10*3/uL 130-400 Automated blood platelet mean volume measurement 10.5 [foz_us] 7.4-10.4 Automated blood neutrophils/100 leukocytes 67 % 42-75 Automated blood lymphocytes/100 leukocytes 24 % 12-44 Blood monocytes/100 leukocytes 8 % 0-12 Automated blood eosinophils/100 leukocytes 2 % 0-10 Automated blood basophils/100 leukocytes 0 % 0-10 Blood neutrophils automated count (number/volume) 4.6 10*3 1.8-7.8 Blood lymphocytes automated count (number/volume) 1.7 10*3 1.0-4.0 Blood monocytes automated count (number/volume) 0. 5 10*3 0.0-1.0 Automated eosinophil count 0.1 10*3/uL 0 .0-0.3 Automated blood basophil count (count/volume) 0.0 10*3/uL 0.0-0.1 Comprehensive metabolic panel - 07/24/18 17:16 Serum or plasma sodium measurement (moles/volume) 139 mmol/L 135-145 Serum or plasma potassium measurement (moles/volume) 3.8 mmol/L 3.6-5.0 Serum or plasma chloride measurement (moles/volume) 108 mmol/L 98-107 Carbon dioxide 24 mmol/L 21-32 Serum or plasma anion gap determination (moles/volume) 7 mmol/L 5-14 Serum or plasma urea nitrogen measurement (mass/volume ) 9 mg/dL 7-18 Serum or plasma creatinine measurement (mass/volume) 1.37 mg/dL 0.60-1.30 Serum or plasma urea nitrogen/creatinine mass ratio 7 NRG Serum or plasma creatinine measurement w ith calculation of estimated glomerular filtration rate 51 NRG Serum or plasma glucose measurement (mass/volume) 212 mg/dL 70-105 Serum or plasma calcium measurement (mass/volume) 9.5 mg/dL 8.5-10.1 Serum or plasma total bilirubin measurement (mass/volu me) 0.4 mg/dL 0.1-1.0 Serum or plasma alkaline phosphatase rafat surement (enzymatic activity/volume) 64 U/L 40-136 Serum or plasma aspartate aminotransfera se measurement (enzymatic activity/volume) 19 U/L 5-34 Serum or plasma alanine aminotransferase measurement (enzymatic activity/volume) 12 U/L 0-55 Serum or plasma protein measurement (mass/volume) 6.9 g/dL 6.4-8.2 Serum or plasma albumin measurement (mass/volume) 4.1 g/dL 3.2-4.5 CALCIUM CORRECTED 9.4 mg/dL 8.5-10.1 Magnesium - 07/24/18 17:16 Magnesium 1.7 mg/dL 1.8-2.4 Lipase - 07/24/18 17:16 Lipase 64 U/L 8-78 DIGOXIN - 07/24/18 17:16 DIGOXIN 0.53 ng/mL 0.80-2.00 Complete blood count (CBC) with automate d white blood cell (WBC) differential - 07/31/18 00:45 Blood leukocytes automated count (number/volume) 7.4 10*3/uL 4.3-11.0 Blood erythrocytes automated count (number/volume) 4.24 10*6/uL 4.35-5.85 Venous blood hemoglobin measurement (mass/volume) 11.2 g/dL 13.3-17.7 Blood hematocrit (volume fraction) 35 % 40-54 Automated erythrocyte mean corpuscular volume 83 [ foz_us] 80-99 Automated erythrocyte mean corpuscular h emoglobin (mass per erythrocyte) 26 pg 25-34 Automated erythrocyte mean corpuscular h emoglobin concentration measurement (mass/volume) 32 g/dL 32-36 Automated erythrocyte distribution width ratio 17. 0 % 10.0- 14.5 Automated blood platelet count (count/volume) 296 10*3/uL 130-400 Automated blood platelet mean volume measurement 9.9 [foz_us] 7.4-10.4 Automated blood neutrophils/100 leukocytes 54 % 42-75 Automated blood lymphocytes/100 leukocytes 36 % 12-44 Blood monocytes/100 leukocytes 8 % 0-12 Automated blood eosinophils/100 leukocytes 2 % 0-10 Automated blood basophils/100 leukocytes 0 % 0-10 Blood neutrophils automated count (number/volume) 4.0 10*3 1.8-7.8 Blood lymphocytes automated count (number/volume) 2.6 10*3 1.0-4.0 Blood monocytes automated count (number/volume) 0. 6 10*3 0.0-1.0 Automated eosinophil count 0.2 10*3/uL 0 .0-0.3 Automated blood basophil count (count/volume) 0.0 10*3/uL 0.0-0.1 PT panel in platelet poor plasma by coag ulation assay - 07/31/18 00:45 Prothrombin time (PT) in platelet poor plasma by coagu lation assay 16.0 s 12.2-14.7 INR in platelet poor plasma or blood by coagulation as say 1.3 0.8-1.4 Activated partial thromboplastin time (a PTT) in platelet poor plasma bycoagulation assay - 07/31/18 00:45 Activated partial thromboplastin time (a PTT) in platelet poor plasma bycoagulation assay 34 s 24-35 Comprehensive metabolic panel - 07/31/18 00:45 Serum or plasma sodium measurement (moles/volume) 143 mmol/L 135-145 Serum or plasma potassium measurement (moles/volume) 3.3 mmol/L 3.6-5.0 Serum or plasma chloride measurement (moles/volume) 106 mmol/L 98-107 Carbon dioxide 24 mmol/L 21-32 Serum or plasma anion gap determination (moles/volume) 13 mmol/L 5-14 Serum or plasma urea nitrogen measurement (mass/volume ) 11 mg/dL 7-18 Serum or plasma creatinine measurement (mass/volume) 1.61 mg/dL 0.60-1.30 Serum or plasma urea nitrogen/creatinine mass ratio 7 NRG Serum or plasma creatinine measurement w ith calculation of estimated glomerular filtration rate 42 NRG Serum or plasma glucose measurement (mass/volume) 153 mg/dL 70-105 Serum or plasma calcium measurement (mass/volume) 9.6 mg/dL 8.5-10.1 Serum or plasma total bilirubin measurement (mass/volu me) 0.3 mg/dL 0.1-1.0 Serum or plasma alkaline phosphatase rafat surement (enzymatic activity/volume) 65 U/L 40-136 Serum or plasma aspartate aminotransfera se measurement (enzymatic activity/volume) 14 U/L 5-34 Serum or plasma alanine aminotransferase measurement (enzymatic activity/volume) 9 U/L 0-55 Serum or plasma protein measurement (mass/volume) 7.0 g/dL 6.4-8.2 Serum or plasma albumin measurement (mass/volume) 4.1 g/dL 3.2-4.5 CALCIUM CORRECTED 9.5 mg/dL 8.5-10.1 Serum or plasma amylase measurement (enz ymatic activity/volume) - 07/31/18 00:45 Serum or plasma amylase measurement (enzymatic activit y/volume) 52 U/L 25-125 Lipase - 07/31/18 00:45 Lipase 55 U/L 8-78 Complete urinalysis with reflex to cultu re - 07/31/18 02:17 Urine color determination YELLOW NRG Urine clarity determination CLEAR NR G Urine pH measurement by test strip 7 5-9 Specific gravity of urine by test strip 1.010 1.016-1.022 Urine protein assay by test strip, semi-quantitative 1+ NEGATIVE Urine glucose detection by automated test strip NE GATIVE NEGATIVE Erythrocytes detection in urine sediment by light micr oscopy 5+ NEGATIVE Urine ketones detection by automated test strip NE GATIVE NEGATIVE Urine nitrite detection by test strip NEGATIVE NEGATIVE Urine total bilirubin detection by test strip NEGA TIVE NEGATIVE Urine urobilinogen measurement by automated test strip (mass/volume) NORMAL NORMAL Urine leukocyte esterase detection by dipstick NEG ATIVE NEGATIVE Automated urine sediment erythrocyte cou nt by microscopy (number/high power field) [HPF] NRG Automated urine sediment leukocyte count by microscopy (number/high power field) NONE NRG Bacteria detection in urine sediment by light microsco py TRACE NRG Squamous epithelial cells detection in u rine sediment by light microscopy RARE NRG Crystals detection in urine sediment by light microsco py PRESENT NRG Casts detection in urine sediment by light microscopy NONE NRG Mucus detection in urine sediment by light microscopy NEGATIVE NRG Complete urinalysis with reflex to culture NO NRG Amorphous sediment detection in urine sediment by ligh t microscopy FEW DEYVI PHOSPHATE NRG Complete blood count (CBC) with automate d white blood cell (WBC) differential - 10/27/18 20:52 Blood leukocytes automated count (number/volume) 6.3 10*3/uL 4.3-11.0 Blood erythrocytes automated count (number/volume) 4.33 10*6/uL 4.35-5.85 Venous blood hemoglobin measurement (mass/volume) 11.4 g/dL 13.3-17.7 Blood hematocrit (volume fraction) 36 % 40-54 Automated erythrocyte mean corpuscular volume 82 [ foz_us] 80-99 Automated erythrocyte mean corpuscular h emoglobin (mass per erythrocyte) 26 pg 25-34 Automated erythrocyte mean corpuscular h emoglobin concentration measurement (mass/volume) 32 g/dL 32-36 Automated erythrocyte distribution width ratio 15. 1 % 10.0- 14.5 Automated blood platelet count (count/volume) 284 10*3/uL 130-400 Automated blood platelet mean volume measurement 10.2 [foz_us] 7.4-10.4 Automated blood neutrophils/100 leukocytes 61 % 42-75 Automated blood lymphocytes/100 leukocytes 27 % 12-44 Blood monocytes/100 leukocytes 9 % 0-12 Automated blood eosinophils/100 leukocytes 2 % 0-10 Automated blood basophils/100 leukocytes 1 % 0-10 Blood neutrophils automated count (number/volume) 3.9 10*3 1.8-7.8 Blood lymphocytes automated count (number/volume) 1.7 10*3 1.0-4.0 Blood monocytes automated count (number/volume) 0. 6 10*3 0.0-1.0 Automated eosinophil count 0.1 10*3/uL 0 .0-0.3 Automated blood basophil count (count/volume) 0.0 10*3/uL 0.0-0.1 PT panel in platelet poor plasma by coag ulation assay - 10/27/18 20:52 Prothrombin time (PT) in platelet poor plasma by coagu lation assay 15.3 s 12.2-14.7 INR in platelet poor plasma or blood by coagulation as say 1.2 0.8-1.4 Activated partial thromboplastin time (a PTT) in platelet poor plasma bycoagulation assay - 10/27/18 20:52 Activated partial thromboplastin time (a PTT) in platelet poor plasma bycoagulation assay 36 s 24-35 Comprehensive metabolic panel - 10/27/18 20:52 Serum or plasma sodium measurement (moles/volume) 138 mmol/L 135-145 Serum or plasma potassium measurement (moles/volume) 4.0 mmol/L 3.6-5.0 Serum or plasma chloride measurement (moles/volume) 111 mmol/L 98-107 Carbon dioxide 15 mmol/L 21-32 Serum or plasma anion gap determination (moles/volume) 12 mmol/L 5-14 Serum or plasma urea nitrogen measurement (mass/volume ) 11 mg/dL 7-18 Serum or plasma creatinine measurement (mass/volume) 1.55 mg/dL 0.60-1.30 Serum or plasma urea nitrogen/creatinine mass ratio 7 NRG Serum or plasma creatinine measurement w ith calculation of estimated glomerular filtration rate 44 NRG Serum or plasma glucose measurement (mass/volume) 312 mg/dL 70-105 Serum or plasma calcium measurement (mass/volume) 9.1 mg/dL 8.5-10.1 Serum or plasma total bilirubin measurement (mass/volu me) 0.2 mg/dL 0.1-1.0 Serum or plasma alkaline phosphatase rafat surement (enzymatic activity/volume) 63 U/L 40-136 Serum or plasma aspartate aminotransfera se measurement (enzymatic activity/volume) 18 U/L 5-34 Serum or plasma alanine aminotransferase measurement (enzymatic activity/volume) 14 U/L 0-55 Serum or plasma protein measurement (mass/volume) 6.7 g/dL 6.4-8.2 Serum or plasma albumin measurement (mass/volume) 3.8 g/dL 3.2-4.5 CALCIUM CORRECTED 9.3 mg/dL 8.5-10.1 Magnesium - 10/27/18 20:52 Magnesium 2.0 mg/dL 1.8-2.4 Serum or plasma troponin i.cardiac measu rement (mass/volume) - 10/27/18 20:52 Serum or plasma troponin i.cardiac measurement (mass/v olume) < ng/mL <0.028 Myoglobin, serum - 10/27/18 20:52 Myoglobin, serum 53.6 ng/mL 10.0-92.0 Complete blood count (CBC) with automate d white blood cell (WBC) differential - 11/05/18 18:17 Blood leukocytes automated count (number/volume) 5.5 10*3/uL 4.3-11.0 Blood erythrocytes automated count (number/volume) 4.65 10*6/uL 4.35-5.85 Venous blood hemoglobin measurement (mass/volume) 12.0 g/dL 13.3-17.7 Blood hematocrit (volume fraction) 38 % 40-54 Automated erythrocyte mean corpuscular volume 82 [ foz_us] 80-99 Automated erythrocyte mean corpuscular h emoglobin (mass per erythrocyte) 26 pg 25-34 Automated erythrocyte mean corpuscular h emoglobin concentration measurement (mass/volume) 32 g/dL 32-36 Automated erythrocyte distribution width ratio 15. 5 % 10.0- 14.5 Automated blood platelet count (count/volume) 287 10*3/uL 130-400 Automated blood platelet mean volume measurement 9.5 [foz_us] 7.4-10.4 Automated blood neutrophils/100 leukocytes 67 % 42-75 Automated blood lymphocytes/100 leukocytes 24 % 12-44 Blood monocytes/100 leukocytes 8 % 0-12 Automated blood eosinophils/100 leukocytes 1 % 0-10 Automated blood basophils/100 leukocytes 1 % 0-10 Blood neutrophils automated count (number/volume) 3.7 10*3 1.8-7.8 Blood lymphocytes automated count (number/volume) 1.3 10*3 1.0-4.0 Blood monocytes automated count (number/volume) 0. 4 10*3 0.0-1.0 Automated eosinophil count 0.0 10*3/uL 0 .0-0.3 Automated blood basophil count (count/volume) 0.0 10*3/uL 0.0-0.1 Comprehensive metabolic panel - 11/05/18 18:17 Serum or plasma sodium measurement (moles/volume) 141 mmol/L 135-145 Serum or plasma potassium measurement (moles/volume) 3.7 mmol/L 3.6-5.0 Serum or plasma chloride measurement (moles/volume) 112 mmol/L 98-107 Carbon dioxide 17 mmol/L 21-32 Serum or plasma anion gap determination (moles/volume) 12 mmol/L 5-14 Serum or plasma urea nitrogen measurement (mass/volume ) 16 mg/dL 7-18 Serum or plasma creatinine measurement (mass/volume) 1.55 mg/dL 0.60-1.30 Serum or plasma urea nitrogen/creatinine mass ratio 10 NRG Serum or plasma creatinine measurement w ith calculation of estimated glomerular filtration rate 44 NRG Serum or plasma glucose measurement (mass/volume) 239 mg/dL 70-105 Serum or plasma calcium measurement (mass/volume) 9.5 mg/dL 8.5-10.1 Serum or plasma total bilirubin measurement (mass/volu me) 0.4 mg/dL 0.1-1.0 Serum or plasma alkaline phosphatase rafat surement (enzymatic activity/volume) 68 U/L 40-136 Serum or plasma aspartate aminotransfera se measurement (enzymatic activity/volume) 11 U/L 5-34 Serum or plasma alanine aminotransferase measurement (enzymatic activity/volume) 12 U/L 0-55 Serum or plasma protein measurement (mass/volume) 7.3 g/dL 6.4-8.2 Serum or plasma albumin measurement (mass/volume) 4.2 g/dL 3.2-4.5 CALCIUM CORRECTED 9.3 mg/dL 8.5-10.1 Magnesium - 11/05/18 18:17 Magnesium 2.0 mg/dL 1.8-2.4 DIGOXIN - 11/05/18 18:17 DIGOXIN < 0.30 0.80-2.00 Complete blood count (CBC) with automate d white blood cell (WBC) differential - 11/08/18 14:53 Blood leukocytes automated count (number/volume) 5.8 10*3/uL 4.3-11.0 Blood erythrocytes automated count (number/volume) 4.57 10*6/uL 4.35-5.85 Venous blood hemoglobin measurement (mass/volume) 11.8 g/dL 13.3-17.7 Blood hematocrit (volume fraction) 37 % 40-54 Automated erythrocyte mean corpuscular volume 81 [ foz_us] 80-99 Automated erythrocyte mean corpuscular h emoglobin (mass per erythrocyte) 26 pg 25-34 Automated erythrocyte mean corpuscular h emoglobin concentration measurement (mass/volume) 32 g/dL 32-36 Automated erythrocyte distribution width ratio 15. 4 % 10.0- 14.5 Automated blood platelet count (count/volume) 313 10*3/uL 130-400 Automated blood platelet mean volume measurement 9.8 [foz_us] 7.4-10.4 Automated blood neutrophils/100 leukocytes 68 % 42-75 Automated blood lymphocytes/100 leukocytes 25 % 12-44 Blood monocytes/100 leukocytes 6 % 0-12 Automated blood eosinophils/100 leukocytes 1 % 0-10 Automated blood basophils/100 leukocytes 1 % 0-10 Blood neutrophils automated count (number/volume) 3.9 10*3 1.8-7.8 Blood lymphocytes automated count (number/volume) 1.4 10*3 1.0-4.0 Blood monocytes automated count (number/volume) 0. 4 10*3 0.0-1.0 Automated eosinophil count 0.1 10*3/uL 0 .0-0.3 Automated blood basophil count (count/volume) 0.0 10*3/uL 0.0-0.1 Comprehensive metabolic panel - 11/08/18 14:53 Serum or plasma sodium measurement (moles/volume) 142 mmol/L 135-145 Serum or plasma potassium measurement (moles/volume) 3.9 mmol/L 3.6-5.0 Serum or plasma chloride measurement (moles/volume) 114 mmol/L 98-107 Carbon dioxide 21 mmol/L 21-32 Serum or plasma anion gap determination (moles/volume) 7 mmol/L 5-14 Serum or plasma urea nitrogen measurement (mass/volume ) 12 mg/dL 7-18 Serum or plasma creatinine measurement (mass/volume) 1.55 mg/dL 0.60-1.30 Serum or plasma urea nitrogen/creatinine mass ratio 8 NRG Serum or plasma creatinine measurement w ith calculation of estimated glomerular filtration rate 44 NRG Serum or plasma glucose measurement (mass/volume) 183 mg/dL 70-105 Serum or plasma calcium measurement (mass/volume) 9.9 mg/dL 8.5-10.1 Serum or plasma total bilirubin measurement (mass/volu me) 0.4 mg/dL 0.1-1.0 Serum or plasma alkaline phosphatase rafat surement (enzymatic activity/volume) 76 U/L 40-136 Serum or plasma aspartate aminotransfera se measurement (enzymatic activity/volume) 10 U/L 5-34 Serum or plasma alanine aminotransferase measurement (enzymatic activity/volume) 12 U/L 0-55 Serum or plasma protein measurement (mass/volume) 7.3 g/dL 6.4-8.2 Serum or plasma albumin measurement (mass/volume) 4.3 g/dL 3.2-4.5 CALCIUM CORRECTED 9.7 mg/dL 8.5-10.1 Serum or plasma troponin i.cardiac measu rement (mass/volume) - 11/08/18 14:53 Serum or plasma troponin i.cardiac measurement (mass/v olume) < ng/mL <0.028 DIGOXIN - 11/08/18 14:53 DIGOXIN 0.37 ng/mL 0.80-2.00 Complete blood count (CBC) with automate d white blood cell (WBC) differential - 11/09/18 05:02 Blood leukocytes automated count (number/volume) 6.3 10*3/uL 4.3-11.0 Blood erythrocytes automated count (number/volume) 4.34 10*6/uL 4.35-5.85 Venous blood hemoglobin measurement (mass/volume) 11.4 g/dL 13.3-17.7 Blood hematocrit (volume fraction) 36 % 40-54 Automated erythrocyte mean corpuscular volume 82 [ foz_us] 80-99 Automated erythrocyte mean corpuscular h emoglobin (mass per erythrocyte) 26 pg 25-34 Automated erythrocyte mean corpuscular h emoglobin concentration measurement (mass/volume) 32 g/dL 32-36 Automated erythrocyte distribution width ratio 15. 3 % 10.0- 14.5 Automated blood platelet count (count/volume) 299 10*3/uL 130-400 Automated blood platelet mean volume measurement 9.9 [foz_us] 7.4-10.4 Automated blood neutrophils/100 leukocytes 63 % 42-75 Automated blood lymphocytes/100 leukocytes 25 % 12-44 Blood monocytes/100 leukocytes 9 % 0-12 Automated blood eosinophils/100 leukocytes 2 % 0-10 Automated blood basophils/100 leukocytes 1 % 0-10 Blood neutrophils automated count (number/volume) 4.0 10*3 1.8-7.8 Blood lymphocytes automated count (number/volume) 1.6 10*3 1.0-4.0 Blood monocytes automated count (number/volume) 0. 6 10*3 0.0-1.0 Automated eosinophil count 0.2 10*3/uL 0 .0-0.3 Automated blood basophil count (count/volume) 0.0 10*3/uL 0.0-0.1 PT panel in platelet poor plasma by coag ulation assay - 11/09/18 05:02 Prothrombin time (PT) in platelet poor plasma by coagu lation assay 15.8 s 12.2-14.7 INR in platelet poor plasma or blood by coagulation as say 1.2 0.8-1.4 Activated partial thromboplastin time (a PTT) in platelet poor plasma bycoagulation assay - 11/09/18 05:02 Activated partial thromboplastin time (a PTT) in platelet poor plasma bycoagulation assay 35 s 24-35 Comprehensive metabolic panel - 11/09/18 05:02 Serum or plasma sodium measurement (moles/volume) 139 mmol/L 135-145 Serum or plasma potassium measurement (moles/volume) 3.6 mmol/L 3.6-5.0 Serum or plasma chloride measurement (moles/volume) 110 mmol/L 98-107 Carbon dioxide 20 mmol/L 21-32 Serum or plasma anion gap determination (moles/volume) 9 mmol/L 5-14 Serum or plasma urea nitrogen measurement (mass/volume ) 11 mg/dL 7-18 Serum or plasma creatinine measurement (mass/volume) 1.50 mg/dL 0.60-1.30 Serum or plasma urea nitrogen/creatinine mass ratio 7 NRG Serum or plasma creatinine measurement w ith calculation of estimated glomerular filtration rate 46 NRG Serum or plasma glucose measurement (mass/volume) 213 mg/dL 70-105 Serum or plasma calcium measurement (mass/volume) 9.8 mg/dL 8.5-10.1 Serum or plasma total bilirubin measurement (mass/volu me) 0.2 mg/dL 0.1-1.0 Serum or plasma alkaline phosphatase rafat surement (enzymatic activity/volume) 73 U/L 40-136 Serum or plasma aspartate aminotransfera se measurement (enzymatic activity/volume) 12 U/L 5-34 Serum or plasma alanine aminotransferase measurement (enzymatic activity/volume) 11 U/L 0-55 Serum or plasma protein measurement (mass/volume) 7.2 g/dL 6.4-8.2 Serum or plasma albumin measurement (mass/volume) 4.2 g/dL 3.2-4.5 CALCIUM CORRECTED 9.6 mg/dL 8.5-10.1 Magnesium - 11/09/18 05:02 Magnesium 2.0 mg/dL 1.8-2.4 Serum or plasma troponin i.cardiac measu rement (mass/volume) - 11/09/18 05:02 Serum or plasma troponin i.cardiac measurement (mass/v olume) < ng/mL <0.028 Myoglobin, serum - 11/09/18 05:02 Myoglobin, serum 119.2 ng/mL 10.0-92.0 Serum or plasma lithium measurement (mol es/volume) - 11/09/18 05:02 BNP PT 28.4 pg/mL <100.0 Serum or plasma amylase measurement (enz ymatic activity/volume) - 11/09/18 05:02 Serum or plasma amylase measurement (enzymatic activit y/volume) 71 U/L 25-125 Lipase - 11/09/18 05:02 Lipase 107 U/L 8-78 DIGOXIN - 11/09/18 05:02 DIGOXIN < 0.30 0.80-2.00 Capillary blood glucose measurement by g lucometer (mass/volume) - 11/09/18 05:04 Capillary blood glucose measurement by glucometer (mas s/volume) 209 mg/dL 70-110 Complete urinalysis with reflex to cultu re - 11/09/18 05:32 Urine color determination YELLOW NRG Urine clarity determination CLEAR NR G Urine pH measurement by test strip 6.5 5-9 Specific gravity of urine by test strip 1.010 1.016-1.022 Urine protein assay by test strip, semi-quantitative NEGATIVE NEGATIVE Urine glucose detection by automated test strip 2+ NEGATIVE Erythrocytes detection in urine sediment by light micr oscopy NEGATIVE NEGATIVE Urine ketones detection by automated test strip NE GATIVE NEGATIVE Urine nitrite detection by test strip NEGATIVE NEGATIVE Urine total bilirubin detection by test strip NEGA TIVE NEGATIVE Urine urobilinogen measurement by automated test strip (mass/volume) NORMAL NORMAL Urine leukocyte esterase detection by dipstick NEG ATIVE NEGATIVE Automated urine sediment erythrocyte cou nt by microscopy (number/high power field) NONE NRG Automated urine sediment leukocyte count by microscopy (number/high power field) NONE NRG Bacteria detection in urine sediment by light microsco py NEGATIVE NRG Squamous epithelial cells detection in u rine sediment by light microscopy 2-5 NRG Crystals detection in urine sediment by light microsco py NONE NRG Casts detection in urine sediment by light microscopy NONE NRG Mucus detection in urine sediment by light microscopy SMALL NRG Complete urinalysis with reflex to culture NO NRG Capillary blood glucose measurement by g lucometer (mass/volume) - 11/09/18 05:58 Capillary blood glucose measurement by glucometer (mas s/volume) 189 mg/dL 70-110 Complete blood count (CBC) with automate d white blood cell (WBC) differential - 12/20/18 20:40 Blood leukocytes automated count (number/volume) 8.0 10*3/uL 4.3-11.0 Blood erythrocytes automated count (number/volume) 4.60 10*6/uL 4.35-5.85 Venous blood hemoglobin measurement (mass/volume) 12.0 g/dL 13.3-17.7 Blood hematocrit (volume fraction) 37 % 40-54 Automated erythrocyte mean corpuscular volume 81 [ foz_us] 80-99 Automated erythrocyte mean corpuscular h emoglobin (mass per erythrocyte) 26 pg 25-34 Automated erythrocyte mean corpuscular h emoglobin concentration measurement (mass/volume) 32 g/dL 32-36 Automated erythrocyte distribution width ratio 15. 5 % 10.0- 14.5 Automated blood platelet count (count/volume) 312 10*3/uL 130-400 Automated blood platelet mean volume measurement 10.4 [foz_us] 7.4-10.4 Automated blood neutrophils/100 leukocytes 60 % 42-75 Automated blood lymphocytes/100 leukocytes 31 % 12-44 Blood monocytes/100 leukocytes 7 % 0-12 Automated blood eosinophils/100 leukocytes 2 % 0-10 Automated blood basophils/100 leukocytes 0 % 0-10 Blood neutrophils automated count (number/volume) 4.8 10*3 1.8-7.8 Blood lymphocytes automated count (number/volume) 2.5 10*3 1.0-4.0 Blood monocytes automated count (number/volume) 0. 5 10*3 0.0-1.0 Automated eosinophil count 0.1 10*3/uL 0 .0-0.3 Automated blood basophil count (count/volume) 0.0 10*3/uL 0.0-0.1 PT panel in platelet poor plasma by coag ulation assay - 12/20/18 20:40 Prothrombin time (PT) in platelet poor plasma by coagu lation assay 15.5 s 12.2-14.7 INR in platelet poor plasma or blood by coagulation as say 1.2 0.8-1.4 Activated partial thromboplastin time (a PTT) in platelet poor plasma bycoagulation assay - 12/20/18 20:40 Activated partial thromboplastin time (a PTT) in platelet poor plasma bycoagulation assay 33 s 24-35 Blood lactic acid measurement (moles/vol ume) - 12/20/18 20:40 Blood lactic acid measurement (moles/volume) 1.38 mmol/L 0.50-2.00 Comprehensive metabolic panel - 12/20/18 20:40 Serum or plasma sodium measurement (moles/volume) 140 mmol/L 135-145 Serum or plasma potassium measurement (moles/volume) 4.0 mmol/L 3.6-5.0 Serum or plasma chloride measurement (moles/volume) 109 mmol/L 98-107 Carbon dioxide 19 mmol/L 21-32 Serum or plasma anion gap determination (moles/volume) 12 mmol/L 5-14 Serum or plasma urea nitrogen measurement (mass/volume ) 11 mg/dL 7-18 Serum or plasma creatinine measurement (mass/volume) 1.66 mg/dL 0.60-1.30 Serum or plasma urea nitrogen/creatinine mass ratio 7 NRG Serum or plasma creatinine measurement w ith calculation of estimated glomerular filtration rate 40 NRG Serum or plasma glucose measurement (mass/volume) 210 mg/dL 70-105 Serum or plasma calcium measurement (mass/volume) 10.3 mg/dL 8.5-10.1 Serum or plasma total bilirubin measurement (mass/volu me) 0.4 mg/dL 0.1-1.0 Serum or plasma alkaline phosphatase rafat surement (enzymatic activity/volume) 75 U/L 40-136 Serum or plasma aspartate aminotransfera se measurement (enzymatic activity/volume) 14 U/L 5-34 Serum or plasma alanine aminotransferase measurement (enzymatic activity/volume) 17 U/L 0-55 Serum or plasma protein measurement (mass/volume) 7.8 g/dL 6.4-8.2 Serum or plasma albumin measurement (mass/volume) 4.4 g/dL 3.2-4.5 CALCIUM CORRECTED 10.0 mg/dL 8.5-10.1 Magnesium - 12/20/18 20:40 Magnesium 1.8 mg/dL 1.8-2.4 Lipase - 12/20/18 20:40 Lipase 53 U/L 8-78 Serum or plasma troponin i.cardiac measu rement (mass/volume) - 12/20/18 20:40 Serum or plasma troponin i.cardiac measurement (mass/v olume) < ng/mL <0.028 Myoglobin, serum - 12/20/18 20:40 Myoglobin, serum 110.9 ng/mL 10.0-92.0 Serum or plasma lithium measurement (mol es/volume) - 12/20/18 20:40 BNP PT 32.2 pg/mL <100.0 Bacterial blood culture - 12/20/18 20:40 Bacterial blood culture NG NRG Bacterial blood culture - 12/20/18 20:56 Bacterial blood culture NG NRG Complete urinalysis with reflex to cultu re - 12/20/18 22:13 Urine color determination YELLOW NRG Urine clarity determination CLEAR NR G Urine pH measurement by test strip 7 5-9 Specific gravity of urine by test strip 1.005 1.016-1.022 Urine protein assay by test strip, semi-quantitative NEGATIVE NEGATIVE Urine glucose detection by automated test strip NE GATIVE NEGATIVE Erythrocytes detection in urine sediment by light micr oscopy NEGATIVE NEGATIVE Urine ketones detection by automated test strip NE GATIVE NEGATIVE Urine nitrite detection by test strip NEGATIVE NEGATIVE Urine total bilirubin detection by test strip NEGA TIVE NEGATIVE Urine urobilinogen measurement by automated test strip (mass/volume) NORMAL NORMAL Urine leukocyte esterase detection by dipstick NEG ATIVE NEGATIVE Automated urine sediment erythrocyte cou nt by microscopy (number/high power field) NONE NRG Automated urine sediment leukocyte count by microscopy (number/high power field) NONE NRG Bacteria detection in urine sediment by light microsco py NEGATIVE NRG Squamous epithelial cells detection in u rine sediment by light microscopy 0-2 NRG Crystals detection in urine sediment by light microsco py NONE NRG Casts detection in urine sediment by light microscopy NONE NRG Mucus detection in urine sediment by light microscopy NEGATIVE NRG Complete urinalysis with reflex to culture NO NRG Bacterial urine culture - 12/20/18 22:13 Bacterial urine culture NG NRG Methicillin resistant Staphylococcus aur eus (MRSA) screening culture - 12/20/18 22:47 Methicillin resistant Staphylococcus aureus (MRSA) scr eening culture NEG NRG Capillary blood glucose measurement by g lucometer (mass/volume) - 12/20/18 22:54 Capillary blood glucose measurement by glucometer (mas s/volume) 141 mg/dL 70-110 Complete blood count (CBC) with automate d white blood cell (WBC) differential - 12/21/18 04:01 Blood leukocytes automated count (number/volume) 6.3 10*3/uL 4.3-11.0 Blood erythrocytes automated count (number/volume) 4.35 10*6/uL 4.35-5.85 Venous blood hemoglobin measurement (mass/volume) 11.3 g/dL 13.3-17.7 Blood hematocrit (volume fraction) 36 % 40-54 Automated erythrocyte mean corpuscular volume 82 [ foz_us] 80-99 Automated erythrocyte mean corpuscular h emoglobin (mass per erythrocyte) 26 pg 25-34 Automated erythrocyte mean corpuscular h emoglobin concentration measurement (mass/volume) 32 g/dL 32-36 Automated erythrocyte distribution width ratio 15. 6 % 10.0- 14.5 Automated blood platelet count (count/volume) 279 10*3/uL 130-400 Automated blood platelet mean volume measurement 10.1 [foz_us] 7.4-10.4 Automated blood neutrophils/100 leukocytes 59 % 42-75 Automated blood lymphocytes/100 leukocytes 32 % 12-44 Blood monocytes/100 leukocytes 8 % 0-12 Automated blood eosinophils/100 leukocytes 2 % 0-10 Automated blood basophils/100 leukocytes 1 % 0-10 Blood neutrophils automated count (number/volume) 3.7 10*3 1.8-7.8 Blood lymphocytes automated count (number/volume) 2.0 10*3 1.0-4.0 Blood monocytes automated count (number/volume) 0. 5 10*3 0.0-1.0 Automated eosinophil count 0.1 10*3/uL 0 .0-0.3 Automated blood basophil count (count/volume) 0.0 10*3/uL 0.0-0.1 Comprehensive metabolic panel - 12/21/18 04:01 Serum or plasma sodium measurement (moles/volume) 140 mmol/L 135-145 Serum or plasma potassium measurement (moles/volume) 3.7 mmol/L 3.6-5.0 Serum or plasma chloride measurement (moles/volume) 110 mmol/L 98-107 Carbon dioxide 20 mmol/L 21-32 Serum or plasma anion gap determination (moles/volume) 10 mmol/L 5-14 Serum or plasma urea nitrogen measurement (mass/volume ) 10 mg/dL 7-18 Serum or plasma creatinine measurement (mass/volume) 1.41 mg/dL 0.60-1.30 Serum or plasma urea nitrogen/creatinine mass ratio 7 NRG Serum or plasma creatinine measurement w ith calculation of estimated glomerular filtration rate 49 NRG Serum or plasma glucose measurement (mass/volume) 178 mg/dL 70-105 Serum or plasma calcium measurement (mass/volume) 9.8 mg/dL 8.5-10.1 Serum or plasma total bilirubin measurement (mass/volu me) 0.4 mg/dL 0.1-1.0 Serum or plasma alkaline phosphatase rafat surement (enzymatic activity/volume) 68 U/L 40-136 Serum or plasma aspartate aminotransfera se measurement (enzymatic activity/volume) 13 U/L 5-34 Serum or plasma alanine aminotransferase measurement (enzymatic activity/volume) 15 U/L 0-55 Serum or plasma protein measurement (mass/volume) 7.2 g/dL 6.4-8.2 Serum or plasma albumin measurement (mass/volume) 4.1 g/dL 3.2-4.5 CALCIUM CORRECTED 9.7 mg/dL 8.5-10.1 Serum or plasma phosphate measurement (m ass/volume) - 12/21/18 04:01 Serum or plasma phosphate measurement (mass/volume) 2.4 mg/dL 2.3-4.7 Magnesium - 12/21/18 04:01 Magnesium 1.7 mg/dL 1.8-2.4 Serum or plasma troponin i.cardiac measu rement (mass/volume) - 12/21/18 04:01 Serum or plasma troponin i.cardiac measurement (mass/v olume) < ng/mL <0.028 Lipid 1996 panel - 12/21/18 04:01 Serum or plasma triglyceride measurement (mass/volume) 132 mg/dL <150 Serum or plasma cholesterol measurement (mass/volume) 151 mg/dL < 200 Serum or plasma cholesterol in HDL measurement (mass/v olume) 34 mg/dL 40-60 Cholesterol in LDL [mass/volume] in serum or plasma by direct assay 109 mg/dL 1-129 Serum or plasma cholesterol in VLDL measurement (mass/ volume) 26 mg/dL 5-40 Capillary blood glucose measurement by g lucometer (mass/volume) - 12/21/18 05:08 Capillary blood glucose measurement by glucometer (mas s/volume) 156 mg/dL 70-110 Complete blood count (CBC) with automate d white blood cell (WBC) differential - 12/30/18 20:51 Blood leukocytes automated count (number/volume) 5.7 10*3/uL 4.3-11.0 Blood erythrocytes automated count (number/volume) 4.24 10*6/uL 4.35-5.85 Venous blood hemoglobin measurement (mass/volume) 11.0 g/dL 13.3-17.7 Blood hematocrit (volume fraction) 35 % 40-54 Automated erythrocyte mean corpuscular volume 82 [ foz_us] 80-99 Automated erythrocyte mean corpuscular h emoglobin (mass per erythrocyte) 26 pg 25-34 Automated erythrocyte mean corpuscular h emoglobin concentration measurement (mass/volume) 32 g/dL 32-36 Automated erythrocyte distribution width ratio 15. 0 % 10.0- 14.5 Automated blood platelet count (count/volume) 297 10*3/uL 130-400 Automated blood platelet mean volume measurement 9.8 [foz_us] 7.4-10.4 Automated blood neutrophils/100 leukocytes 61 % 42-75 Automated blood lymphocytes/100 leukocytes 31 % 12-44 Blood monocytes/100 leukocytes 6 % 0-12 Automated blood eosinophils/100 leukocytes 1 % 0-10 Automated blood basophils/100 leukocytes 0 % 0-10 Blood neutrophils automated count (number/volume) 3.5 10*3 1.8-7.8 Blood lymphocytes automated count (number/volume) 1.8 10*3 1.0-4.0 Blood monocytes automated count (number/volume) 0. 4 10*3 0.0-1.0 Automated eosinophil count 0.1 10*3/uL 0 .0-0.3 Automated blood basophil count (count/volume) 0.0 10*3/uL 0.0-0.1 PT panel in platelet poor plasma by coag ulation assay - 12/30/18 20:51 Prothrombin time (PT) in platelet poor plasma by coagu lation assay 17.0 s 12.2-14.7 INR in platelet poor plasma or blood by coagulation as say 1.3 0.8-1.4 Activated partial thromboplastin time (a PTT) in platelet poor plasma bycoagulation assay - 12/30/18 20:51 Activated partial thromboplastin time (a PTT) in platelet poor plasma bycoagulation assay 32 s 24-35 Comprehensive metabolic panel - 12/30/18 20:51 Serum or plasma sodium measurement (moles/volume) 141 mmol/L 135-145 Serum or plasma potassium measurement (moles/volume) 3.7 mmol/L 3.6-5.0 Serum or plasma chloride measurement (moles/volume) 110 mmol/L 98-107 Carbon dioxide 21 mmol/L 21-32 Serum or plasma anion gap determination (moles/volume) 10 mmol/L 5-14 Serum or plasma urea nitrogen measurement (mass/volume ) 11 mg/dL 7-18 Serum or plasma creatinine measurement (mass/volume) 1.40 mg/dL 0.60-1.30 Serum or plasma urea nitrogen/creatinine mass ratio 8 NRG Serum or plasma creatinine measurement w ith calculation of estimated glomerular filtration rate 49 NRG Serum or plasma glucose measurement (mass/volume) 144 mg/dL 70-105 Serum or plasma calcium measurement (mass/volume) 9.6 mg/dL 8.5-10.1 Serum or plasma total bilirubin measurement (mass/volu me) 0.5 mg/dL 0.1-1.0 Serum or plasma alkaline phosphatase rafat surement (enzymatic activity/volume) 75 U/L 40-136 Serum or plasma aspartate aminotransfera se measurement (enzymatic activity/volume) 19 U/L 5-34 Serum or plasma alanine aminotransferase measurement (enzymatic activity/volume) 13 U/L 0-55 Serum or plasma protein measurement (mass/volume) 7.4 g/dL 6.4-8.2 Serum or plasma albumin measurement (mass/volume) 4.2 g/dL 3.2-4.5 CALCIUM CORRECTED 9.4 mg/dL 8.5-10.1 Magnesium - 12/30/18 20:51 Magnesium 2.0 mg/dL 1.6-2.4 Serum or plasma troponin i.cardiac measu rement (mass/volume) - 12/30/18 20:51 Serum or plasma troponin i.cardiac measurement (mass/v olume) < ng/mL <0.028 Myoglobin, serum - 12/30/18 20:51 Myoglobin, serum 117.4 ng/mL 10.0-92.0 Lipase - 12/30/18 20:51 Lipase 39 U/L 8-78 Serum or plasma lithium measurement (mol es/volume) - 12/30/18 20:51 BNP PT 46.3 pg/mL <100.0 Complete blood count (CBC) with automate d white blood cell (WBC) differential - 01/12/19 16:58 Blood leukocytes automated count (number/volume) 6.8 10*3/uL 4.3-11.0 Blood erythrocytes automated count (number/volume) 4.38 10*6/uL 4.35-5.85 Venous blood hemoglobin measurement (mass/volume) 11.1 g/dL 13.3-17.7 Blood hematocrit (volume fraction) 36 % 40-54 Automated erythrocyte mean corpuscular volume 81 [ foz_us] 80-99 Automated erythrocyte mean corpuscular h emoglobin (mass per erythrocyte) 25 pg 25-34 Automated erythrocyte mean corpuscular h emoglobin concentration measurement (mass/volume) 31 g/dL 32-36 Automated erythrocyte distribution width ratio 15. 1 % 10.0- 14.5 Automated blood platelet count (count/volume) 343 10*3/uL 130-400 Automated blood platelet mean volume measurement 9.8 [foz_us] 7.4-10.4 Automated blood neutrophils/100 leukocytes 62 % 42-75 Automated blood lymphocytes/100 leukocytes 27 % 12-44 Blood monocytes/100 leukocytes 8 % 0-12 Automated blood eosinophils/100 leukocytes 2 % 0-10 Automated blood basophils/100 leukocytes 1 % 0-10 Blood neutrophils automated count (number/volume) 4.2 10*3 1.8-7.8 Blood lymphocytes automated count (number/volume) 1.9 10*3 1.0-4.0 Blood monocytes automated count (number/volume) 0. 5 10*3 0.0-1.0 Automated eosinophil count 0.1 10*3/uL 0 .0-0.3 Automated blood basophil count (count/volume) 0.0 10*3/uL 0.0-0.1 PT panel in platelet poor plasma by coag ulation assay - 01/12/19 16:58 Prothrombin time (PT) in platelet poor plasma by coagu lation assay 16.5 s 12.2-14.7 INR in platelet poor plasma or blood by coagulation as say 1.3 0.8-1.4 Activated partial thromboplastin time (a PTT) in platelet poor plasma bycoagulation assay - 01/12/19 16:58 Activated partial thromboplastin time (a PTT) in platelet poor plasma bycoagulation assay 33 s 24-35 Comprehensive metabolic panel - 01/12/19 16:58 Serum or plasma sodium measurement (moles/volume) 141 mmol/L 135-145 Serum or plasma potassium measurement (moles/volume) 4.0 mmol/L 3.6-5.0 Serum or plasma chloride measurement (moles/volume) 111 mmol/L 98-107 Carbon dioxide 20 mmol/L 21-32 Serum or plasma anion gap determination (moles/volume) 10 mmol/L 5-14 Serum or plasma urea nitrogen measurement (mass/volume ) 11 mg/dL 7-18 Serum or plasma creatinine measurement (mass/volume) 1.35 mg/dL 0.60-1.30 Serum or plasma urea nitrogen/creatinine mass ratio 8 NRG Serum or plasma creatinine measurement w ith calculation of estimated glomerular filtration rate 51 NRG Serum or plasma glucose measurement (mass/volume) 147 mg/dL 70-105 Serum or plasma calcium measurement (mass/volume) 9.7 mg/dL 8.5-10.1 Serum or plasma total bilirubin measurement (mass/volu me) 0.4 mg/dL 0.1-1.0 Serum or plasma alkaline phosphatase rafat surement (enzymatic activity/volume) 70 U/L 40-136 Serum or plasma aspartate aminotransfera se measurement (enzymatic activity/volume) 11 U/L 5-34 Serum or plasma alanine aminotransferase measurement (enzymatic activity/volume) 10 U/L 0-55 Serum or plasma protein measurement (mass/volume) 7.1 g/dL 6.4-8.2 Serum or plasma albumin measurement (mass/volume) 4.2 g/dL 3.2-4.5 CALCIUM CORRECTED 9.5 mg/dL 8.5-10.1 Magnesium - 01/12/19 16:58 Magnesium 1.8 mg/dL 1.6-2.4 Serum or plasma troponin i.cardiac measu rement (mass/volume) - 01/12/19 16:58 Serum or plasma troponin i.cardiac measurement (mass/v olume) < ng/mL <0.028 Myoglobin, serum - 01/12/19 16:58 Myoglobin, serum 88.3 ng/mL 10.0-92.0 [id number] - 01/12/19 16:58 [id number] 0.48 ng/mL 0.80-2.00 Complete blood count (CBC) with automate d white blood cell (WBC) differential - 01/23/19 08:59 Blood leukocytes automated count (number/volume) 5.4 10*3/uL 4.3-11.0 Blood erythrocytes automated count (number/volume) 3.98 10*6/uL 4.35-5.85 Venous blood hemoglobin measurement (mass/volume) 10.3 g/dL 13.3-17.7 Blood hematocrit (volume fraction) 32 % 40-54 Automated erythrocyte mean corpuscular volume 81 [ foz_us] 80-99 Automated erythrocyte mean corpuscular h emoglobin (mass per erythrocyte) 26 pg 25-34 Automated erythrocyte mean corpuscular h emoglobin concentration measurement (mass/volume) 32 g/dL 32-36 Automated erythrocyte distribution width ratio 15. 2 % 10.0- 14.5 Automated blood platelet count (count/volume) 351 10*3/uL 130-400 Automated blood platelet mean volume measurement 9.7 [foz_us] 7.4-10.4 Automated blood neutrophils/100 leukocytes 59 % 42-75 Automated blood lymphocytes/100 leukocytes 29 % 12-44 Blood monocytes/100 leukocytes 8 % 0-12 Automated blood eosinophils/100 leukocytes 3 % 0-10 Automated blood basophils/100 leukocytes 1 % 0-10 Blood neutrophils automated count (number/volume) 3.2 10*3 1.8-7.8 Blood lymphocytes automated count (number/volume) 1.6 10*3 1.0-4.0 Blood monocytes automated count (number/volume) 0. 4 10*3 0.0-1.0 Automated eosinophil count 0.1 10*3/uL 0 .0-0.3 Automated blood basophil count (count/volume) 0.0 10*3/uL 0.0-0.1 Comprehensive metabolic panel - 01/23/19 08:59 Serum or plasma sodium measurement (moles/volume) 139 mmol/L 135-145 Serum or plasma potassium measurement (moles/volume) 3.8 mmol/L 3.6-5.0 Serum or plasma chloride measurement (moles/volume) 110 mmol/L 98-107 Carbon dioxide 22 mmol/L 21-32 Serum or plasma anion gap determination (moles/volume) 7 mmol/L 5-14 Serum or plasma urea nitrogen measurement (mass/volume ) 10 mg/dL 7-18 Serum or plasma creatinine measurement (mass/volume) 1.42 mg/dL 0.60-1.30 Serum or plasma urea nitrogen/creatinine mass ratio 7 NRG Serum or plasma creatinine measurement w ith calculation of estimated glomerular filtration rate 48 NRG Serum or plasma glucose measurement (mass/volume) 166 mg/dL 70-105 Serum or plasma calcium measurement (mass/volume) 10.0 mg/dL 8.5-10.1 Serum or plasma total bilirubin measurement (mass/volu me) 0.5 mg/dL 0.1-1.0 Serum or plasma alkaline phosphatase rafat surement (enzymatic activity/volume) 76 U/L 40-136 Serum or plasma aspartate aminotransfera se measurement (enzymatic activity/volume) 14 U/L 5-34 Serum or plasma alanine aminotransferase measurement (enzymatic activity/volume) 9 U/L 0-55 Serum or plasma protein measurement (mass/volume) 7.2 g/dL 6.4-8.2 Serum or plasma albumin measurement (mass/volume) 4.2 g/dL 3.2-4.5 CALCIUM CORRECTED 9.8 mg/dL 8.5-10.1 Magnesium - 01/23/19 08:59 Magnesium 1.8 mg/dL 1.6-2.4 [id number] - 01/23/19 08:59 [id number] 0.90 ng/mL 0.80-2.00 Complete urinalysis with reflex to cultu re - 01/23/19 10:59 Urine color determination YELLOW NRG Urine clarity determination CLEAR NR G Urine pH measurement by test strip 8 5-9 Specific gravity of urine by test strip 1.010 1.016-1.022 Urine protein assay by test strip, semi-quantitative 1+ NEGATIVE Urine glucose detection by automated test strip NE GATIVE NEGATIVE Erythrocytes detection in urine sediment by light micr oscopy NEGATIVE NEGATIVE Urine ketones detection by automated test strip NE GATIVE NEGATIVE Urine nitrite detection by test strip NEGATIVE NEGATIVE Urine total bilirubin detection by test strip NEGA TIVE NEGATIVE Urine urobilinogen measurement by automated test strip (mass/volume) NORMAL NORMAL Urine leukocyte esterase detection by dipstick NEG ATIVE NEGATIVE Automated urine sediment erythrocyte cou nt by microscopy (number/high power field) NONE NRG Automated urine sediment leukocyte count by microscopy (number/high power field) NONE NRG Bacteria detection in urine sediment by light microsco py NEGATIVE NRG Crystals detection in urine sediment by light microsco py NONE NRG Casts detection in urine sediment by light microscopy NONE NRG Mucus detection in urine sediment by light microscopy NEGATIVE NRG Complete urinalysis with reflex to culture NO NRG Capillary blood glucose measurement by g lucometer (mass/volume) - 01/29/19 09:27 Capillary blood glucose measurement by glucometer (mas s/volume) 256 mg/dL 70-110 Capillary blood glucose measurement by g lucometer (mass/volume) - 02/18/19 12:10 Capillary blood glucose measurement by glucometer (mas s/volume) 209 mg/dL 70-110 Complete blood count (CBC) with automate d white blood cell (WBC) differential - 02/18/19 12:30 Blood leukocytes automated count (number/volume) 9.5 10*3/uL 4.3-11.0 Blood erythrocytes automated count (number/volume) 4.39 10*6/uL 4.35-5.85 Venous blood hemoglobin measurement (mass/volume) 10.9 g/dL 13.3-17.7 Blood hematocrit (volume fraction) 35 % 40-54 Automated erythrocyte mean corpuscular volume 80 [ foz_us] 80-99 Automated erythrocyte mean corpuscular h emoglobin (mass per erythrocyte) 25 pg 25-34 Automated erythrocyte mean corpuscular h emoglobin concentration measurement (mass/volume) 31 g/dL 32-36 Automated erythrocyte distribution width ratio 14. 9 % 10.0- 14.5 Automated blood platelet count (count/volume) 378 10*3/uL 130-400 Automated blood platelet mean volume measurement 9.6 [foz_us] 7.4-10.4 Automated blood neutrophils/100 leukocytes 86 % 42-75 Automated blood lymphocytes/100 leukocytes 7 % 12-44 Blood monocytes/100 leukocytes 5 % 0-12 Automated blood eosinophils/100 leukocytes 2 % 0-10 Automated blood basophils/100 leukocytes 0 % 0-10 Blood neutrophils automated count (number/volume) 8.2 10*3 1.8-7.8 Blood lymphocytes automated count (number/volume) 0.7 10*3 1.0-4.0 Blood monocytes automated count (number/volume) 0. 5 10*3 0.0-1.0 Automated eosinophil count 0.1 10*3/uL 0 .0-0.3 Automated blood basophil count (count/volume) 0.0 10*3/uL 0.0-0.1 Comprehensive metabolic panel - 02/18/19 12:30 Serum or plasma sodium measurement (moles/volume) 139 mmol/L 135-145 Serum or plasma potassium measurement (moles/volume) 3.8 mmol/L 3.6-5.0 Serum or plasma chloride measurement (moles/volume) 107 mmol/L 98-107 Carbon dioxide 21 mmol/L 21-32 Serum or plasma anion gap determination (moles/volume) 11 mmol/L 5-14 Serum or plasma urea nitrogen measurement (mass/volume ) 14 mg/dL 7-18 Serum or plasma creatinine measurement (mass/volume) 1.47 mg/dL 0.60-1.30 Serum or plasma urea nitrogen/creatinine mass ratio 10 NRG Serum or plasma creatinine measurement w ith calculation of estimated glomerular filtration rate 47 NRG Serum or plasma glucose measurement (mass/volume) 213 mg/dL 70-105 Serum or plasma calcium measurement (mass/volume) 9.6 mg/dL 8.5-10.1 Serum or plasma total bilirubin measurement (mass/volu me) 0.4 mg/dL 0.1-1.0 Serum or plasma alkaline phosphatase rafat surement (enzymatic activity/volume) 74 U/L 40-136 Serum or plasma aspartate aminotransfera se measurement (enzymatic activity/volume) 12 U/L 5-34 Serum or plasma alanine aminotransferase measurement (enzymatic activity/volume) 13 U/L 0-55 Serum or plasma protein measurement (mass/volume) 7.3 g/dL 6.4-8.2 Serum or plasma albumin measurement (mass/volume) 4.2 g/dL 3.2-4.5 CALCIUM CORRECTED 9.4 mg/dL 8.5-10.1 Serum or plasma C reactive protein measu rement (mass/volume) - 02/18/19 12:30 Serum or plasma C reactive protein measurement (mass/v olume) 0.47 mg/dL 0.00-0.50 Manual absolute plasma cell count - 12/30 12:30 Blood monocytes/100 leukocytes 4 % NRG Manual blood segmented neutrophils/100 leukocytes 89 % NRG Blood band neutrophils/100 leukocytes 0 % NRG Manual blood lymphocytes/100 leukocytes 6 % NRG Manual eosinophils/100 leukocytes in nose 1 % NRG Manual blood basophils/100 leukocytes 0 % NRG Blood erythrocyte morphology finding identification NORMAL NRG Complete blood count (CBC) with automate d white blood cell (WBC) differential - 03/15/19 04:33 Blood leukocytes automated count (number/volume) 7.3 10*3/uL 4.3-11.0 Blood erythrocytes automated count (number/volume) 4.41 10*6/uL 4.35-5.85 Venous blood hemoglobin measurement (mass/volume) 10.8 g/dL 13.3-17.7 Blood hematocrit (volume fraction) 35 % 40-54 Automated erythrocyte mean corpuscular volume 78 [ foz_us] 80-99 Automated erythrocyte mean corpuscular h emoglobin (mass per erythrocyte) 25 pg 25-34 Automated erythrocyte mean corpuscular h emoglobin concentration measurement (mass/volume) 31 g/dL 32-36 Automated erythrocyte distribution width ratio 14. 6 % 10.0- 14.5 Automated blood platelet count (count/volume) 342 10*3/uL 130-400 Automated blood platelet mean volume measurement 9.6 [foz_us] 7.4-10.4 Automated blood neutrophils/100 leukocytes 63 % 42-75 Automated blood lymphocytes/100 leukocytes 24 % 12-44 Blood monocytes/100 leukocytes 10 % 0-12 Automated blood eosinophils/100 leukocytes 3 % 0-10 Automated blood basophils/100 leukocytes 1 % 0-10 Blood neutrophils automated count (number/volume) 4.6 10*3 1.8-7.8 Blood lymphocytes automated count (number/volume) 1.8 10*3 1.0-4.0 Blood monocytes automated count (number/volume) 0. 7 10*3 0.0-1.0 Automated eosinophil count 0.2 10*3/uL 0 .0-0.3 Automated blood basophil count (count/volume) 0.0 10*3/uL 0.0-0.1 PT panel in platelet poor plasma by coag ulation assay - 03/15/19 04:33 Prothrombin time (PT) in platelet poor plasma by coagu lation assay 15.3 s 12.2-14.7 INR in platelet poor plasma or blood by coagulation as say 1.2 0.8-1.4 Activated partial thromboplastin time (a PTT) in platelet poor plasma bycoagulation assay - 03/15/19 04:33 Activated partial thromboplastin time (a PTT) in platelet poor plasma bycoagulation assay 33 s 24-35 Comprehensive metabolic panel - 03/15/19 04:33 Serum or plasma sodium measurement (moles/volume) 141 mmol/L 135-145 Serum or plasma potassium measurement (moles/volume) 3.6 mmol/L 3.6-5.0 Serum or plasma chloride measurement (moles/volume) 108 mmol/L 98-107 Carbon dioxide 22 mmol/L 21-32 Serum or plasma anion gap determination (moles/volume) 11 mmol/L 5-14 Serum or plasma urea nitrogen measurement (mass/volume ) 16 mg/dL 7-18 Serum or plasma creatinine measurement (mass/volume) 1.57 mg/dL 0.60-1.30 Serum or plasma urea nitrogen/creatinine mass ratio 10 NRG Serum or plasma creatinine measurement w ith calculation of estimated glomerular filtration rate 43 NRG Serum or plasma glucose measurement (mass/volume) 180 mg/dL 70-105 Serum or plasma calcium measurement (mass/volume) 9.9 mg/dL 8.5-10.1 Serum or plasma total bilirubin measurement (mass/volu me) 0.2 mg/dL 0.1-1.0 Serum or plasma alkaline phosphatase rafat surement (enzymatic activity/volume) 71 U/L 40-136 Serum or plasma aspartate aminotransfera se measurement (enzymatic activity/volume) 15 U/L 5-34 Serum or plasma alanine aminotransferase measurement (enzymatic activity/volume) 9 U/L 0-55 Serum or plasma protein measurement (mass/volume) 7.5 g/dL 6.4-8.2 Serum or plasma albumin measurement (mass/volume) 4.2 g/dL 3.2-4.5 CALCIUM CORRECTED 9.7 mg/dL 8.5-10.1 Magnesium - 03/15/19 04:33 Magnesium 2.2 mg/dL 1.6-2.4 Serum or plasma troponin i.cardiac measu rement (mass/volume) - 03/15/19 04:33 Serum or plasma troponin i.cardiac measurement (mass/v olume) < ng/mL <0.028 Myoglobin, serum - 03/15/19 04:33 Myoglobin, serum 94.6 ng/mL 10.0-92.0 Capillary blood glucose measurement by g lucometer (mass/volume) - 03/15/19 04:58 Capillary blood glucose measurement by glucometer (mas s/volume) 174 mg/dL 70-110 VIT B-12 - 06/24/19 11:33 Vitamin B12 160.00 pg/mL 213.00-816.00 PSA Yearly Screen - 07/01/19 14:07 PSA TOTAL 1.0 ng/mL 0.0-4.0 Encounters ACCT No. Visit Date/Time Discharge Status Pt. Type Provider Facility Loc./Unit Complaint [id number] 07/14/2019 16:16:00 07/14/2019 23:59 :00 DIS Outpatient ISRAEL AVALOS [id number] 07/01/2019 15:18:00 07/01/2019 23:59 :00 DIS Outpatient ISRAEL AVALOS [id number] 07/01/2019 14:05:00 07/01/2019 23:59 :00 DIS Outpatient ISRAEL AVALOS [id number] 06/24/2019 14:22:00 06/24/2019 23:59 :00 DIS Outpatient ISRAEL AVALOS [id number] 06/24/2019 11:47:00 06/24/2019 23:59 :00 DIS Outpatient ISRAEL AVALOS [id number] 06/19/2019 14:53:00 06/19/2019 15:25 :00 DIS Outpatient JASPER ROSA [id number] 06/16/2019 13:51:00 06/16/2019 15:28 :00 DIS Outpatient [facility] ER [id number] 06/16/2019 15:13:07 Document Registration [id number] 07/18/2019 15:10:00 020 16:09:00 DIS Emergency LEONARDO SALGADO APRN [facility] ER BACK PAIN [id number] 06/04/2019 08:15:00 23:59:59 CLS Preadmit NORTH CRUZ, RADHA Suggs [facility] CARD CAD [id number] 04/06/2019 15:51:00 16:30:00 DIS Emergency LEONARDO SALGADO APRN [facility] ER L LEG HEAVINESS/PAIN [id number] 03/15/2019 04:13:00 06:25:00 DIS Emergency KHUSHBOO DOUGHERTY, RODOLFO Mendieta [facility] ER A-FIB [id number] 02/18/2019 12:03:00 13:48:00 DIS Emergency WENDY SARMIENTO MD [facility] ER DIARRHEA HIGH BLOOD SUG AR [id number] 01/29/2019 09:06:00 12:55:00 DIS Outpatient SARAH CALLAWAY MD [facility] ENDO DYSPHAGIA [id number] 01/28/2019 11:30:00 14:17:00 DIS Outpatient SARAH CALLAWAY MD [facility] PREOP EGD [id number] 01/23/2019 08:45:00 11:24:00 DIS Emergency RODOLFO CUELLO MD [facility] ER WEAKNESS;NECK P AIN [id number] 01/12/2019 16:41:00 18:45:00 DIS Emergency LEONARDO SALGADO APRN [facility] ER FEELS LIKE IN A-FIB AGA IN/HEART RACING [id number] 12/30/2018 20:36:00 22:12:00 DIS Emergency LEONARDO SALGADO APRN [facility] ER CHEST PAIN [id number] 12/20/2018 21:30:00 09:30:00 DIS Inpatient MEGHNA MCCORMACK MD [facility] ICU VIRAL GASTROENT ERITIS,AFIB w/ RVR [id number] 11/09/2018 04:56:00 06:27:00 DIS Emergency ROMAIN KNIGHT DO [facility] ER CP SOB [id number] 11/08/2018 14:48:00 17:13:00 DIS Emergency CHARO SCHNEIDER MD [facility] ER A-FIB [id number] 11/05/2018 17:36:00 20:48:00 DIS Emergency RODOLFO CUELLO MD [facility] ER DIARRHEA,HYPOTE NSION [id number] 10/30/2018 14:15:00 23:59:59 CLS Preadmit RADHA BASILIO [facility] CARD CAD [id number] 10/27/2018 20:42:00 21:59:00 DIS 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 [id number] 09/21/2018 20:57:00 21:15:00 DIS Emergency CHARO SCHNEIDER MD [facility] ER NOT FEELING WEL L [id number] 08/23/2018 00:16:00 23:59:59 CLS Preadmit IRAJ HERRERA MD [facility] D50.8,R53.83,I95.89 [id number] 06/07/2018 12:43:00 00:01:00 DIS Outpatient IRAJ HERRERA MD [facility] D50.8,R53.83,I95.89 [id number] 08/13/2018 14:43:00 16:03:00 DIS Emergency CHARO SCHNEIDER MD [facility] ER LOW BP [id number] 07/31/2018 00:41:00 04:25:00 DIS Emergency ROMAIN KNIGHT DO a [facility] ER SEVERE ABD PAIN [id number] 07/24/2018 16:38:00 18:54:00 DIS Emergency KHUSHBOO DOUGHERTY, RODOLFO Mendieta [facility] ER ABD PAIN,BLOOD PRESSURE HIGH [id number] 07/17/2018 12:42:00 23:59:59 CLS Outpatient JOSE DOUGHERTY, BISI Colon [facility] CARD CAD,CAROTID ARTERY STEN OSIS [id number] 06/23/2018 09:31:00 12:12:00 DIS Emergency JALIL DOUGHERTY, FAMILIA Pacheco [facility] ER HIGH BLOOD PRESSURE, SO A [id number] 05/22/2018 16:09:00 23:59:59 CLS Outpatient IRAJ HERRERA MD [facility] RAD LOW BACK PAIN [id number] 05/20/2018 08:53:00 23:59:59 CLS Outpatient JONATHAN DOUGHERTY, MATTEO Jsoeph [facility] RAD CHRONIC KIDNEY DISEASE STAGE 3 [id number] 03/17/2018 19:44:00 21:13:00 DIS Emergency LEONARDO SALGADO APRN [facility] ER LOW B/P [id number] 03/08/2018 20:25:00 22:05:00 DIS Emergency JOSEE REICH [facility] ER BACK PAIN [id number] 02/14/2018 12:15:00 23:59:59 CLS Outpatient IRAJ HERRERA MD [facility] RAD NECK PAIN,HEADACHE [id number] 01/25/2018 14:26:00 23:59:59 CLS Out[facility] D[facility]8,R53.83,I95.89 [id number] 01/24/2018 17:01:00 20:09:00 DIS Emergency ROMAIN KNIGHT DO [facility] ER BP LOW [id number] 01/13/2018 21:53:00 018 23:37:00 DIS Emergency JOSEE REICH [facility] ER UPPER ABD PAIN [id number] 11/11/2017 14:44:00 018 17:10:00 DIS Emergency LEONARDO SALGADO APRN [facility] ER CHEST CONGESTION,COUGH, FEVER [id number] 10/12/2017 14:56:00 018 16:40:00 DIS Emergency LEONARDO SALGADO APRN [facility] ER ABD PAIN [id number] 09/06/2017 14:48:00 018 17:37:00 DIS Emergency DEEDEE CUBA MD [facility] ER ABD PAIN [id number] 08/31/2017 14:59:00 018 16:39:00 DIS Emergency CHARO SCHNEIDER MD [facility] ER PAIN IN SCROTUM [id number] 07/29/2017 01:04:00 018 03:55:00 DIS Emergency ROMAIN KNIGHT DO [facility] ER DIZZY [id number] 07/28/2017 14:13:00 018 15:46:00 DIS Emergency LEONARDO SALGADO APRN [facility] ER BACK PAIN [id number] 07/19/2017 03:47:00 018 07:23:00 DIS Emergency ROMAIN KNIGHT DO [facility] ER CP [id number] 07/15/2017 12:44:00 018 14:25:00 DIS Emergency MARY MENDEZ [facility] ER COLD SYMPTOMS/CHEST CON GESTION [id number] 06/21/2017 20:51:00 018 22:50:00 DIS Emergency RODOLFO CUELLO MD [facility] ER FALL - HIT HEAD ON BLOOD THINNERS [id number] 04/22/2017 21:20:00 017 01:21:00 DIS Emergency WENDY SARMIENTO MD [facility] ER BLOOD PRESSURE [id number] 03/18/2017 17:54:00 017 19:36:00 DIS Emergency JENN CARBAJAL [facility] ER RT SIDE PAIN [id number] 03/12/2017 14:34:00 23:59:59 CLS Outpatient IRAJ HERRERA MD [facility] RAD M54.6 M54.9 [id number] 02/03/2017 13:40:00 017 16:04:00 DIS Emergency JALIL DOUGHERTY, FAMILIA S [facility] ER PULLED MUSCLE L SIDE [id number] 01/14/2017 01:26:00 017 02:28:00 DIS Emergency WENDY SARMIENTO MD [facility] ER N/D/ FLU [id number] 12/16/2016 16:40:00 017 18:53:00 DIS Emergency JUSTINE TABARES DO [facility] ER STOMACH PAIN [id number] 12/05/2016 05:30:00 017 17:35:00 DIS Inpatient LLUVIA ROUSE DO [facility] ICU CHEST PAIN R/O ACS,PANCREATITIS [id number] 11/27/2016 17:44:00 017 21:06:00 DIS Emergency WENDY SARMIENTO MD [facility] ER LOW BLOOD PRESSURE [id number] 09/27/2016 15:42:00 017 17:02:00 DIS Emergency ROMAIN KNIGHT DO Vi a [facility] ER LOW BLOOD PRESSURE [id number] 09/22/2016 07:10:00 017 11:50:00 DIS Outpatient Daniel CASTILLO MD Via [facility] CATH CHEST PAIN,AFIB [id number] 09/19/2016 22:45:00 017 12:02:00 DIS Inpatient LLUVIA ROUSE DO Via [facility] ICU A-FLUTTER W/RVR ,RENAL INSUFFICIENCY [id number] 09/17/2016 21:29:00 017 22:47:00 DIS Emergency CHARO SCHNEIDER MD Via [facility] ER STOMACH ISSUES [id number] 09/05/2016 16:03:00 017 18:08:00 DIS Emergency JUSTINE TABARES DO Via [facility] ER LOW BP [id number] 08/30/2016 16:01:00 017 23:59:59 CLS Outpatient LLUVIA ROUSE DO Via [facility] LAB PANCREATITIS,DE ODENITIS [id number] 08/29/2016 12:45:00 017 23:59:59 CLS [facility] LLUVIA RIVERA Via [facility] RAD PAIN IN RIGHT F LANK [id number] 08/09/2016 04:34:00 017 06:11:00 DIS Emergency ROMAIN KNIGHT DO [facility] ER FELL OUT OF CHAIR,NECK PAIN [id number] 07/23/2016 18:30:00 017 20:07:00 DIS Emergency TRELL STARKEY MD Via [facility] ER LOW BP [id number] 07/01/2016 23:36:00 017 02:32:00 DIS Emergency RODOLFO CUELLO MD Via [facility] ER HIGH BP DIZZY [id number] 06/20/2016 14:43:00 017 16:45:00 DIS Emergency JENN CARBAJAL Via [facility] ER LEFT ARM LAC [id number] 06/05/2016 11:41:00 017 13:24:00 DIS Emergency LEONARDO SALGADO APRN Via [facility] ER RIGHT SIDE PAIN/UNABLE TO URINATE [id number] 05/30/2016 21:15:00 017 12:30:00 DIS Inpatient LLUVIA ROUSE DO Via [facility] 4TH CHEST PAIN, DEH YDRATION W/ ACUTE ON CHRONIC RENAL [id number] 03/21/2016 19:47:00 13:45:00 DIS Inpatient LLUVIA ROUSE DO Via [facility] ICU A-FLUTTER RVR [id number] 03/09/2016 16:19:00 18:19:00 DIS Emergency CHARO SCHNEIDER MD Via [facility] ER SOA [id number] 03/06/2016 15:48:00 23:59:59 CLS Outpatient LLUVIA ROUSE DO Via [facility] RAD ABD DIST [id number] 03/04/2016 20:52:00 23:05:00 DIS Emergency KHUSHBOO DOUGHERTY, RODOLFO Mendieta Via [facility] ER STOMACH PAIN [id number] 03/01/2016 07:22:00 09:45:00 DIS Outpatient JOSE DOUGHERTY, BISI Colon Via [facility] CATH CP,DYSPNEA,CAD,PVD,MANDEEP DICATION [id number] 11/29/2015 15:30:00 23:59:59 CLS Outpatient LLUVIA ROUSE DO Via [facility] RAD BACK PAIN 1 MON TH [id number] 11/08/2015 20:08:00 21:08:00 DIS Emergency JUSTINE TABARES DO Via [facility] ER ELEVATED BLOOD SUGAR [id number] 09/24/2015 18:07:00 21:00:00 DIS Emergency CHARO SCHENIDER MD Via [facility] ER DIZZINESS [id number] 09/14/2015 09:09:00 23:59:59 CLS Outpatient LEN SCHERER MD Via [facility] CARD GASTROPARESIS [id number] 09/08/2015 07:00:00 09:05:00 DIS Outpatient LEN SCHERER MD Via [facility] SDC DYSPHAGIA, GERD, UPPER GASTRIC PAIN [id number] 09/07/2015 05:43:00 016 23:59:59 CLS Outpatient NIESHA DOUGHERTY, LEN Sanchez Via [facility] PREOP DYSPHAGIA, GERD, UPPER GASTRIC PAIN [id number] 09/02/2015 18:42:00 19:17:00 DIS Emergency JENNIE DOUGHERTY, CHARO Fletcher Via [facility] ER STOMACH PROBLEM S [id number] 07/30/2015 23:18:00 23:52:00 DIS Emergency CHARO SCHNEIDER MD Via [facility] ER ABD PAIN,GASSY [id number] 06/30/2015 10:52:00 12:37:00 DIS Emergency CHARO SCHNEIDER MD Via [facility] ER CHEST PAIN [id number] 06/24/2015 12:53:00 23:59:59 CLS Outpatient JOSE DOUGHERTY, BISI Colon Via [facility] CARD CAD,GABI,HTN,HLP [id number] 04/02/2015 17:35:00 20:18:00 DIS Emergency JENN CARBAJAL Via [facility] ER ABD PAIN [id number] 01/12/2015 11:08:00 13:03:00 DIS Emergency CHARO SCHNEIDER MD Via [facility] ER ELEVATED BP, NA USEA [id number] 01/08/2015 18:17:00 21:39:00 DIS 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 FELL [id number] 01/01/2015 14:49:00 23:59:59 CLS Outpatient ELENI VILLEDA DO Via [facility] RAD DJD,PAIN [id number] 12/25/2014 07:00:00 07:00:00 CAN Preadmit NIESHA DOUGHERTY, LEN Sanchez Via [facility] CARD [id number] 12/21/2014 05:48:00 14:35:00 DIS Inpatient LLUVIA ROUSE DO Via [facility] CSD SMALL BOWEL OBS TRUCTION, CP [id number] 12/14/2014 16:14:00 16:37:00 DIS Emergency TRELL STARKEY MD Via [facility] ER ABD PAIN [id number] 06/11/2014 12:17:00 23:59:59 CLS Outpatient ELENI VILLEDA DO Via [facility] RAD RT KNEE DJD [id number] 05/13/2014 12:35:00 014 15:13:00 DIS Emergency JENN CARBAJAL Via [facility] ER RIGHT KNEE PAIN [id number] 03/19/2014 07:28:00 15:03:00 DIS Outpatient DMITRY MEZA MD Via [facility] CATH PAD,CAD,DIABETE S,HTN [id number] 03/12/2014 15:08:00 23:59:59 CLS Outpatient LLUVIA ROUSE DO Via [facility] LAB ABD PAIN ONSET ONE WEEK AGO [id number] 02/26/2014 06:52:00 14:02:00 DIS Outpatient DMITRY MEZA MD Via [facility] CATH PAD,CAD,DIABETE S,HTN [id number] 11/24/2013 10:07:00 014 13:20:00 DIS Outpatient [facility] H[facility] OF POLYPS [id number] 11/19/2013 07:30:00 23:59:59 CLS Outpatient LEN SCHERER MD Via [facility] PREOP HISTORY OF POLYPS [id number] 11/03/2013 07:17:00 08:45:00 DIS Inpatient SONIA TOLEDO MD Via [facility] 4TH ILEUS ATYPICAL CHEST PA IN N/V PANCREATITIS [id number] 09/28/2013 17:25:00 014 19:05:00 DIS Emergency JENN CARBAJAL Via [facility] ER RIGHT ELBOW PAIN [id number] 09/22/2013 12:53:00 23:59:59 CLS Outpatient BISI GARCIA MD Via [facility] CARD CAD [id number] 09/14/2013 16:46:00 20:10:00 DIS Emergency JENN CARBAJAL Via [facility] ER ABD PAIN [id number] 09/13/2013 19:21:00 20:35:00 DIS Emergency TRELL STARKEY MD Via [facility] ER CHEST PAIN [id number] 08/12/2013 11:35:00 16:15:00 DIS Outpatient ELENI VILLEDA DO Via [facility] OLECRANON SURSI TIS AND SPUR RIGHT ELBOW [id number] 08/05/2013 10:06:00 23:59:59 CLS Outpatient ELENI VILLEDA DO Via [facility] PREOP OLECRANON SURSI TIS AND SPUR RIGHT ELBOW [id number] 07/19/2013 13:03:00 014 16:03:00 DIS Emergency JENN CARBAJAL Via [facility] ER ABD PAIN [id number] 04/23/2013 08:19:00 013 13:25:00 DIS Outpatient SARAH CALLAWAY MD Via [facility] DYSPHAGIA [id number] 04/17/2013 07:26:00 013 23:59:59 CLS Outpatient SARAH CALLAWAY MD Via [facility] PREOP DYSPHAGIA [id number] 12/24/2012 12:05:00 013 17:25:00 DIS Outpatient ELENI VILLEDA DO Via [facility] RIGHT TORN ROTA TOR CUFF [id number] 12/18/2012 11:40:00 23:59:59 CLS Outpatient ELENI VILLEDA DO Via [facility] PREOP RIGHT TORN ROTA TOR CUFF [id number] 10/29/2012 10:02:00 013 23:59:59 CLS Outpatient RONAL RIVERA, ELENI Gonzalez Via [facility] RAD RT SHOULDER IMP INGMENT SYNDROME [id number] 10/26/2012 20:46:00 013 22:12:00 DIS Emergency TRELL STARKEY MD Via [facility] ER INDIGESTION [id number] 12/27/2017 17:41:00 Document Registration [id number] 12/21/2017 13:33:00 Document Registration [id number] 08/14/2015 11:24:00 Document Registration [id number] 12/21/2014 10:21:00 Document Registration [id number] 07/17/2014 10:49:00 Document Registration [id number] 04/16/2012 21:07:00 Document Registration [id number] 03/18/2012 06:44:00 Document Registration [id number] 03/14/2012 10:29:00 Document Registration [id number] 01/30/2012 06:19:00 Document Registration [id number] 01/29/2012 07:52:00 Document Registration [id number] 12/18/2011 05:25:00 Document Registration [id number] 11/29/2011 12:48:00 Document Registration [id number] 06/22/2011 10:47:00 Document Registration [id number] 06/03/2011 21:22:00 Document Registration [id number] 04/17/2011 11:44:00 Document Registration [id number] 03/14/2011 16:51:00 Document Registration [id number] 12/12/2010 14:47:00 Document Registration [id number] 11/12/2010 03:05:00 Document Registration [id number] 10/19/2010 13:21:00 Document Registration [id number] 08/26/2010 11:59:00 Document Registration [id number] 05/30/2010 12:31:00 Document Registration [id number] 05/27/2010 22:21:00 Document Registration [id number] 04/25/2010 05:48:00 Document Registration [id number] 03/08/2010 14:10:00 Document Registration [id number] 02/18/2010 07:02:00 Document Registration [id number] 02/16/2010 22:09:00 Document Registration
== END 2019-07-18 16:09 | disposition home or self-care (01) ==
LOC: EDUNIT# 15:09 → ER 15:10
DX: S39.012A Strain of muscle, fascia and tendon of lower back, initial encounter (principal); J44.9 Chronic obstructive pulmonary disease, unspecified; I10 Essential (primary) hypertension; E11.43 Type 2 diabetes mellitus with diabetic autonomic (poly)neuropathy; K31.84 Gastroparesis; I48.91 Unspecified atrial fibrillation; I25.10 Atherosclerotic heart disease of native coronary artery without angina pectoris; I25.2 Old myocardial infarction; K21.9 Gastro-esophageal reflux disease without esophagitis; E78.00 Pure hypercholesterolemia, unspecified; F41.9 Anxiety disorder, unspecified; Z86.73 Personal history of transient ischemic attack (TIA), and cerebral infarction without residual deficits; Z87.891 Personal history of nicotine dependence; Z95.1 Presence of aortocoronary bypass graft; Z88.0 Allergy status to penicillin; Z88.8 Allergy status to other drugs, medicaments and biological substances; Z88.6 Allergy status to analgesic agent; Z79.01 Long term (current) use of anticoagulants; Z79.4 Long term (current) use of insulin; Z79.52 Long term (current) use of systemic steroids; Z82.49 Family history of ischemic heart disease and other diseases of the circulatory system; Z96.653 Presence of artificial knee joint, bilateral; X58.XXXA Exposure to other specified factors, initial encounter
CPT/HCPCS: 72100

== ENCOUNTER 2019-10-10 08:05 | Outpatient (RCR) | payer MEDICARE, MEDICAID ==
[~2019-10-10] VITALS: Ht 182.9 cm; Wt 86.3 kg
[~2019-10-10 08:05] MED LIST changes: +FAMO-119 PO; +GABA300C PO; +SUCR1TAB36 PO; +ZOLP10TA PO
== END 2019-10-10 14:29 | disposition home or self-care (01) ==
LOC: PREOP 08:05
PROVIDERS: ATTEND Surgery
DX: Z01.812 Encounter for preprocedural laboratory examination (principal); Z11.59 Encounter for screening for other viral diseases; R13.10 Dysphagia, unspecified
CPT/HCPCS: 87635

== ENCOUNTER → 2019-11-17 | Outpatient (CLI) | payer MEDICARE, MEDICAID | LOC: LABNPT 06:59 | PROVIDERS: ATTEND Internal Medicine Cardiovascular Disease | DX: Z01.812 Encounter for preprocedural laboratory examination (principal); Z53.8 Procedure and treatment not carried out for other reasons ==

== ENCOUNTER 2019-12-23 09:05 | Emergency (ER) | payer MEDICARE, MEDICAID ==
[~2019-12-23] VITALS: Ht 182.8 cm; Wt 87.7 kg
--- OUTSIDE RECORDS SUMMARY | 2019-12-23 09:27 | XMS REPORT | Clinical Summary ---
Author Author [facility] Organization [facility] Address Unknown Phone Unavailable Care Team Providers Care Radiotelegraph Operator Name Role Phone Chance Ward PCP Source Comments Some departments are not documenting in the electronic medical record. If you d o not see the information that you expected, contact Release of Information in [facility] [place] Information Management department at [phone] for further assistan ce in locating additional records.[facility] Allergies Not on File Medications End Date [...] Problem Noted Date Coronary artery disease involving [place] coronary art tierney 10/24/2016 Overview: 2000 CABG x 4 02/17/12 PTCA BMS to vein graft to the O M 03/02/16 severe in-stent restenosis in the SVG to the OM with successful PCI, no residual stenosis, patent VG to RCA VG to the diag artery and AMANDA to the LAD occluded [place] vessels proximally, sma ll vessel disease distally 09/25/16 [facility] - severe [place] disease, p atent graft to RCA, diagonal [...] WELLNESS 1940 VISIT DTAP/TDAP VACCINES (1 - 1960 Tdap) HEPATITIS C SCREENING 1960 PHYSICAL (COMPREHENSIVE) 1960 EXAM SHINGLES RECOMBINANT 1992 VACCINE (1 of 2) PNEUMONIA (PPSV23) 2007 VACCINE (1 of 1 - PPSV23) INFLUENZA VACCINE 02/12/2020 Implants Device Identifier Shelf Expiration Date Model / Serial / L ot Implanted Type Area Manufactur er Loop Recorder Loop Recorder Results Not on filefrom Last 3 Months Insurance Type Payer Benefit Subscriber ID Effective Phone Address Plan / Dates Group Medicare MEDICARE MEDICARE xxxxxxxxxx 1995- PART A AND Present B [id number] Advance Directives Patient Health Information Director Explanation Type Date Recorded Advance Directive/DPOA
--- NOTE | 2019-12-23 09:31 | ED General ---
General Stated Complaint: BACK/NECK/SHOULDER PAIN AFTER FALL AT HOME History of Present Illness Date Seen by Provider: Dec 23, 2019 Time Seen by Provider: 09:29 Initial Comments 79-year-old male presents with bilateral shoulder pain upper back pain and lower neck pain following a fall. The fall happened 4 days ago. Reports that he just "can't take the pain anymore" he has an appointment with his primary care provider this afternoon. He denies any numbness tingling, deformities, focal pain. Patient reports he just fell backwards when it happened. Allergies and Home Medications Allergies Coded Allergies: celecoxib (Unverified Allergy, Mild, TAKES ASPIRIN AT HOME, 01/28/19) diclofenac (Unverified Allergy, Mild, TAKES ASPIRIN AT HOME, 01/28/19) naproxen (Unverified Allergy, Mild, TAKES ASPIRIN AT HOME, 01/28/19) rosuvastatin (Unverified Allergy, Mild, 01/28/19) Penicillins (Verified Allergy, Unknown, 01/28/19) amoxicillin (Verified Allergy, Unknown, 01/28/19) fenofibrate (Unverified Allergy, Unknown, 01/28/19) gemfibrozil (Unverified Allergy, Unknown, 10/15/19) simvastatin (Unverified Allergy, Unknown, 01/28/19) Home Medications Apixaban 5 Mg Tablet, 5 MG PO BID, (Reported) Baclofen 10 Mg Tablet, 10 MG PO TID PRN for MUSCLE SPASMS, (Reported) Digoxin 125 Mcg Tablet, 125 MCG PO DAILY, (Reported) Diltiazem HCl 240 Mg Cap.er.24h, 240 MG PO DAILY, (Reported) Famotidine 20 Mg Tablet, 20 MG PO DAILY, (Reported) Fenofibrate,Micronized 134 Mg Capsule, 134 MG PO DAILY, (Reported) Gabapentin 300 Mg Capsule, 300 MG PO TID, (Reported) Glipizide 10 Mg Tablet, 10 MG PO DAILY, (Reported) Insulin Detemir 100 Unit/1 Ml Insuln.pen, 30 UNIT SQ BID, (Reported) Montelukast Sodium 10 Mg Tablet, 10 MG PO HS, (Reported) Nitroglycerin 0.4 Mg Tab.subl, 0.4 MG SL UD PRN for CHEST PAIN, (Reported) MAX OF 3 TABS IN 15 MINUTES / CALL 911 IF PAIN REMAINS AFTER 5 MINUTES Pantoprazole Sodium 40 Mg Tablet.dr, 40 MG PO HS, (Reported) Pentoxifylline 400 Mg Tablet.er, 400 MG PO TID, (Reported) Sucralfate 1 Gm Tablet, 1 GM PO ACHS, (Reported) Tamsulosin HCl 0.4 Mg Cap, 0.4 MG PO DAILY, (Reported) Trazodone HCl 50 Mg Tablet, 50 MG PO HS, (Reported) Zolpidem Tartrate 10 Mg Tablet, 10 MG PO HS, (Reported) Patient Home Medication List Home Medication List Reviewed: Yes Review of Systems Review of Systems Constitutional: No chills, No fever EENTM: no symptoms reported Respiratory: no symptoms reported Cardiovascular: no symptoms reported Gastrointestinal: no symptoms reported Genitourinary: no symptoms reported Musculoskeletal: see HPI Skin: no symptoms reported Past Cnwafxk-Fapbig-Ktrmmc Hx Past Med/Social Hx: Reviewed Nursing Past Med/Soc Hx Patient Social History Alcohol Beverage of Choice: Beer Type Used: Cigarettes Former Smoker, Quit: Apr 12, 2000 2nd Hand Smoke Exposure: No Recent Hopitalizations: No Immunizations Up To Date Tetanus Booster (TDap): Less than 5yrs PED Vaccines UTD: No Date of Pneumonia Vaccine: May 22, 2017 Date of Influenza Vaccine: Mar 08, 2018 Seasonal Allergies Seasonal Allergies: No Past Medical History Surgeries: Yes (CORONARY BYPASS X4, BILAT TKR, STENTS IN LEGS) Abdominal, Angioplasty, Cardiac, CABG, Coronary Stent, Eye Surgery, Gallbladder, Joint Replacement, Open Heart Surgery, Orthopedic, Vascular Surgery Respiratory: Yes (CHRONIC DYSPNEA ON EXERTION) Sleep Apnea, COPD Currently Using CPAP: No Currently Using BIPAP: No Cardiac: Yes Atrial Fibrillation, Chronic Edema/Swelling, Coronary Artery Disease, Heart A ttack, High Cholesterol, Hypertension, Peripheral Vascular Neurological: Yes (POSSIBLE STROKE/ TIA) Stroke, TIA Reproductive Disorders: No Sexually Transmitted Disease: No HIV/AIDS: No Genitourinary: Yes (RENAL INSUFFICIENCY) Benign Prostatic Hyperpl, Prostate Problems, Renal Failure Gastrointestinal: Yes (GASTROPARESIS) Abdominal Hernia, Gastroesophageal Reflux, Chronic Constipation, Diverticulosis, Pancreatitis, Polyps, Gall Bladder Disease Musculoskeletal: Yes (OLECRANON BURSITIS, CHRONIC NECK PAIN, DISH SYNDROME) Degenerate Disk Disease, Arthritis, Chronic Back Pain Endocrine: Yes Diabetes, Insulin dep HEENT: Yes Cataract Loss of Vision: Denies Hearing Impairment: Denies Cancer: No Psychosocial: Yes Anxiety Integumentary: No Blood Disorders: No Adverse Reaction/Blood Tranf: No (N/A) Family Medical History Cancer G8 BROTHER Cataract 19 FATHER 19 MOTHER G8 BROTHER G8 BROTHER G8 SISTER Congestive heart failure 19 FATHER 19 MOTHER Family history: Arthritis 19 FATHER 19 MOTHER G8 BROTHER G8 BROTHER G8 SISTER G8 SISTER DAUGHTER SON Family history: Breast disease DAUGHTER Family history: Cardiovascular disease 19 FATHER Family history: Diabetes mellitus 19 FATHER G8 BROTHER G8 SISTER Family history: Hypertension 19 FATHER 19 MOTHER G8 BROTHER G8 BROTHER G8 SISTER G8 SISTER DAUGHTER SON Family history: Thyroid disorder DAUGHTER Heart disease 19 FATHER 19 MOTHER G8 BROTHER Hypercholesterolemia 19 FATHER 19 MOTHER G8 BROTHER G8 BROTHER G8 SISTER Myocardial infarction 19 FATHER 19 MOTHER G8 BROTHER No Family History of: Abdominal aortic aneurysm Latimer's disease Alcoholism Aphasia Cancer of colon Chest pain Congenital heart disease Cystic fibrosis Dementia Dysphagia Family history: Allergy Family history: Alzheimer's disease Family history: Asthma Family history: Coronary thrombosis Family history: Gastrointestinal disease Family history: Glaucoma Family history: Osteoporosis Headache Hearing loss Hereditary disease History of - anemia History of - disorder History of - respiratory disease History of drug abuse Human immunodeficiency virus (HIV) seropositivity Infertile Kidney disease Malignant neoplasm of lung Parkinson's disease Prostate cancer Psychotic disorder Seizure disorder Stroke Tuberculosis Visual impairment Physical Exam Vital Signs Vital Signs - First Documented 12/23/19 09:22 Temp 36.6 Pulse 79 Resp 18 B/P (MAP) 145/100 (115) Pulse Ox 98 O2 Delivery Room Air Capillary Refill : Height, Weight, BMI Height: 6'0" Weight: 180lbs. 4.0oz. 81.853366fx; 25.79 BMI Method:Stated General Appearance: No Apparent Distress HEENT: PERRL/EOMI Neck: Supple, Other (mild diffuse tenderness to the lower neck, no midline or vertebral tenderness) Respiratory: Lungs Clear, Normal Breath Sounds Cardiovascular: Regular Rate, Rhythm Back: No Vertebral Tenderness Extremity: Other (tenderness the posterior shoulders but no decreased range of motion obvious injury or deformity) Neurologic/Psychiatric: Alert, Oriented x3, campus police officer II-XII Norm as Tested Skin: Normal Color Progress/Results/Core Measures Suspected Sepsis SIRS Temperature: Pulse: Respiratory Rate: Blood Pressure / Mean: Results/Orders My Orders Orders - GASPAR,TABITHA L DO Chest 1 View, Ap/Pa Only (12/23/19 09:31) Cervical Spine 3 Views Or Less (12/23/19 09:31) Thoracic Spine, 2 Views Only (12/23/19 09:31) Shoulder, Bilateral, 3 Views (12/23/19 09:31) Morphine Injection (Morphine Injection (12/23/19 10:19) Orphenadrine Inj (Ed Only) (Norflex Inje (12/23/19 10:19) Vital Signs/I&O 12/23/19 09:22 Temp 36.6 Pulse 79 Resp 18 B/P (MAP) 145/100 (115) Pulse Ox 98 O2 Delivery Room Air Capillary Refill : Progress Note : Time: 11:31 Progress Note Patient with no acute findings on physical exam or x-ray. Patient does have significant arthritis.. He has an appointment with his primary care provider this afternoon which she should keep for further pain management. Patient is stable and will be discharged home. Diagnostic Imaging Diagonstic Imaging: Xray Comments [facility] [place] [place] NAME: NEREIDACASTRO [facility] REC#: [id number] PT STATUS: REG ER : 1940 PHYSICIAN: TABITHA GASPAR DO ADMIT DATE: 12/23/19/ER Draft Date of Exam:12/23/19 THORACIC SPINE, 2 VIEWS ONLY EXAM: THORACIC SPINE, 2 VIEWS ONLY INDICATION: Fall. Back pain. COMPARISON: 05/22/2018. FINDINGS: Normal alignment. Vertebral body heights appear preserved. Diffuse bridging anterior osteophytes are greatest in the midthoracic spine. Sternotomy with CABG. Mitral annular calcifications. Implanted loop recorder. IMPRESSION: 1. No acute radiographic findings in the thoracic spine. 2. Bridging anterior osteophytes are greatest in the thoracic spine consistent with DISH (diffuse idiopathic skeletal hyperostosis). [facility] [place] NAME: NEREIDACASTRO [facility] REC#: [id number] PT STATUS: REG ER : 1940 PHYSICIAN: TABITHA GASPAR DO ADMIT DATE: 12/23/19/ER Draft Date of Exam:12/23/19 CERVICAL SPINE 3 VIEWS OR LESS EXAM: CERVICAL SPINE 3 VIEWS OR LESS INDICATION: Fall. Neck and back pain. COMPARISON: CT neck 01/23/2019. FINDINGS: Again seen are the large anterior bridging osteophytes at C2-C7 consistent with DISH (diffuse idiopathic skeletal hyperostosis). Levels below C6 are not well seen due to overlapping tissues. Normal alignment. No fractures are identified. Sternotomy. Normal prevertebral soft tissues. IMPRESSION: 1. Bridging anterior osteophytes throughout the cervical spine consistent with DISH. 2. No acute radiographic findings. NAME: CASTRO PADRON [facility] REC#: [id number] PT STATUS: REG ER : 1940 PHYSICIAN: TABITHA GASPAR DO ADMIT DATE: 12/23/19/ER Signed Date of Exam:12/23/19 SHOULDER, BILATERAL, 3 VIEWS CLINICAL HISTORY: Fall. Bilateral shoulder pain. COMPARISON: None. TECHNIQUE: 6 views of the bilateral shoulders. FINDINGS: There is no acute fracture or dislocation of the bilateral shoulders. Alignment is anatomic. Degenerative changes are seen in the shoulders with marginal osteophytes and joint space narrowing. No large joint effusion is seen. The surrounding soft tissues are unremarkable. The included lungs are clear. IMPRESSION: 1. No acute fracture or dislocation in the bilateral shoulders. Departure Impression Primary Impression: Fall Qualified Codes: W19.XXXA - Unspecified fall, initial encounter Additional Impression: Contusion of back wall of thorax Qualified Codes: S20.229A - Contusion of unspecified back wall of thorax, initial encounter Disposition: 01 HOME, SELF-CARE Condition: Stable Departure-Patient Inst. Referrals: IRAJ HERRERA MD (PCP/Family) Primary Care Physician Patient Instructions: Getting Up From a Fall, Contusion (DC) Add. Discharge Instructions: Keep your appointment with her primary care provider this afternoon for further pain management Emergency department focuses on treating and ruling out life-threatening diseases. Whenever possible, a diagnosis is given. However, most patients are given an impression based on their history, physical exam, and workup during your brief time in the ER. Information about probable diagnosis and other educ ational material has been provided. Please take the time to read and understand this information. It is very important that you follow up with a physician as discussed during the visit today. Failure to adhere to your follow-up instructions may lead to severe disability, injury, or so please make sure to keep your appointments or obtain one as requested. Please keep in mind the emergency department is not designed to your primary care or "family doctor" and nonurgent issues are best evaluated by an outpatient physician TABITHA GASPAR DO Dec 23, 2019 09:31
--- OUTSIDE RECORDS SUMMARY | 2019-12-23 09:41 | XMS REPORT | Continuity of Care Document ---
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 PADMA RIVERALLUVIA Ot Z79.4 [facility] (CURRENT) USE OF INSULIN 05/31/2016 PADMA RIVERALLUVIA [...] RIVERALLUVIA Ot I25.10 ATHSCL HEART DISEASE OF [place] CORONARY 06/01/2016 PADMA RIVERALLUVIA Ot I25.2 OLD MYOCARDIAL INFARCTION 06/01/2016 MICHAELFRANKLYN [place] RIVERA Ot I48.91 UNSPECIFIED ATRIAL FIBRILLATION 06/01/2016 PADMA RIVERALLUVIA Ot I70.203 UNSP ATHSCL [place] ARTERIES OF EXTREMITI 06/01/2016 PADMA RIVERALLUVIA Ot J44.9 CHRONIC OBSTRUCTIVE PULMONARY DISEASE, U 06/01/2016 PADMA RIVERALLUVIA Ot K21.9 GASTRO-ESOPHAGEAL REFLUX DISEASE WITHOUT 06/01/2016 PADMA RIVERALLUVIA Ot K52.9 NONINFECTIVE GASTROENTERITIS AND COLITIS 06/01/2016 PADMA RIVERALLUVIA Ot N17.9 ACUTE KIDNEY FAILURE, UNSPECIFIED 06/01/2016 PADMA RIVERALLUVIA Ot N18.9 CHRONIC KIDNEY DISEASE, UNSPECIFIED 06/01/2016 PADMA RIVERALLUVIA Ot R07.9 CHEST PAIN, UNSPECIFIED 06/01/2016 PADMA RIVERALLUVIA Ot 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 06/01/2016 PADMA RIVERALLUVIA [...] PAIN 06/05/2016 LEONARDO SALGADO APRN Ot Z79.02 [facility] (CURRENT) USE OF ANTITHROMBOTI 06/05/2016 LEONARDO SALGADO APRN Ot 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 06/05/2016 LEONARDO SALGADO APRN Ot Z79.84 [facility] (CURRENT) USE OF ORAL HYPOGLYC 06/05/2016 LEONARDO SALGADO APRN Ot Z79.899 OTHER SENIOR STORAGE 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) DRUG THERAPY 06/05/2016 LEONARDO SALGADO APRN [...] PAIN 06/06/2016 LEONARDO SALGADO APRN Ot Z79.02 [facility] (CURRENT) USE OF ANTITHROMBOTI 06/06/2016 LEONARDO SALGADO APRN Ot 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 06/06/2016 LEONARDO SALGADO APRN Ot Z79.84 [facility] (CURRENT) USE OF ORAL HYPOGLYC 06/06/2016 LEONARDO SALGADO APRN Ot Z79.899 OTHER SENIOR STORAGE 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) DRUG THERAPY 06/06/2016 LEONARDO SALGADO APRN Ot 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 06/06/2016 LEONARDO SALGADO APRN Ot Z95 .5 PRESENCE OF CORONARY ANGIOPLASTY IMPLANT 06/20/2016 JENN CARBAJAL Ot E11.9 TYPE 2 DIABETES MELLITUS WITHOUT COMPLIC 06/20/2016 JENN CARBAJAL Ot I 10 ESSENTIAL (PRIMARY) HYPERTENSION 06/20/2016 JENN CARBAJAL Ot I48.2 CHRONIC ATRIAL FIBRILLATION 06/20/2016 JENN CARBAJAL Ot S41.112A LACERATION W/O FOREIGN BODY OF LEFT UPPE 06/20/2016 JENN CARBAJAL Ot W19.XXXA UNSPECIFIED FALL, INITIAL ENCOUNTER 06/20/2016 JENN CARBAJAL Ot Y99.8 OTHER EXTERNAL CAUSE STATUS 06/20/2016 JENN CARBAJAL Ot Z79.02 [facility] (CURRENT) USE OF ANTITHROMBOTI 06/20/2016 JENN CARBAJAL Ot Z79.4 [facility] (CURRENT) USE OF INSULIN 06/20/2016 MAURO PA, JENN L Ot Z79.82 [facility] (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 06/20/2016 JENN CARBAJAL Ot 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 06/20/2016 JENN CARBAJAL Ot Z79.899 OTHER SENIOR STORAGE 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) DRUG THERAPY 06/20/2016 JENN CARBAJAL Ot [...] CAUSE STATUS 06/21/2016 JENN CARBAJAL Ot Z79.02 [facility] (CURRENT) USE OF ANTITHROMBOTI 06/21/2016 JENN CARBAJAL Ot Z79.4 [facility] (CURRENT) USE OF INSULIN 06/21/2016 JENN CARBAJAL Ot 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 06/21/2016 JENN CARBAJAL Ot Z79.84 [facility] (CURRENT) USE OF ORAL HYPOGLYC 06/21/2016 JENN CARBAJAL Ot Z79.899 OTHER [facility] (CURRENT) DRUG THERAPY 06/21/2016 JENN CARBAJAL Ot Z95.1 PRESENCE OF AORTOCORONARY BYPASS GRAFT 06/21/2016 JENN CARBAJAL Ot 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 IMPLANT 07/02/2016 KHUSHBOO DOUGHERTY, RODOLFO Mendieta Ot E11.65 TYPE 2 DIABETES MELLITUS WITH HYPERGLYCE 07/02/2016 RODOLFO CUELLO MD Ot E86.1 HYPOVOLEMIA 07/02/2016 RODOLFO CUELLO MD Ot I10 ESSENTIAL (PRIMARY) HYPERTENSION 07/02/2016 RODOLFO CUELLO MD Ot I25.10 ATHSCL HEART DISEASE OF [place] CORONARY 07/02/2016 RODOLFO CUELLO MD Ot I48.2 CHRONIC ATRIAL FIBRILLATION 07/02/2016 RODOLFO CUELLO MD Ot I95.1 ORTHOSTATIC HYPOTENSION 07/02/2016 RODOLFO CUELLO MD, Ot R42 DIZZINESS AND GIDDINESS 07/02/2016 RODOLFO CUELLO MD Ot Z79.02 SENIOR 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 OF ANTITHROMBOTI 07/02/2016 RODOLFO CUELLO MD Ot 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 07/02/2016 RODOLFO CUELLO MD Ot Z79.82 [facility] (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 07/02/2016 RODOLFO CUELLO MD Ot 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 07/02/2016 RODOLFO CUELLO MD Ot Z79.899 OTHER SENIOR STORAGE 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) DRUG THERAPY 07/02/2016 RODOLFO CUELLO MD Ot Z87.891 PERSONAL HISTORY OF NICOTINE DEPENDENCE 07/02/2016 RODOLFO CUELLO MD Ot Z95.1 PRESENCE OF AORTOCORONARY BYPASS GRAFT 07/02/2016 RODOLFO CUELLO MD Ot 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 IMPLANT 07/23/2016 TRELL STARKEY MD Ot E11. 9 TYPE 2 DIABETES MELLITUS WITHOUT COMPLIC 07/23/2016 TRELL STARKEY MD Ot E86. 1 HYPOVOLEMIA 07/23/2016 TRELL STARKEY MD Ot I10 ESSENTIAL (PRIMARY) HYPERTENSION 07/23/2016 TRELL STARKEY MD Ot I25. 10 ATHSCL HEART DISEASE OF [place] CORONARY 07/23/2016 TRELL STARKEY MD Ot I48. 2 CHRONIC ATRIAL FIBRILLATION 07/23/2016 TRELL STARKEY MD Ot I95. 1 ORTHOSTATIC HYPOTENSION 07/23/2016 TRELL STARKEY MD Ot R42 DIZZINESS AND GIDDINESS 07/23/2016 TRELL STARKEY MD Ot Z79. 4 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 07/23/2016 TRELL STARKEY MD Ot Z79. 82 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 07/23/2016 TRELL STARKEY MD A Ot Z79. 84 [facility] (CURRENT) USE OF ORAL HYPOGLYC 07/23/2016 ANISHA STARKEY MDNT A Ot Z79.899 OTHER [facility] (CURRENT) DRUG THERAPY 07/23/2016 TRELL STARKEY MD A Ot Z95. 1 PRESENCE OF AORTOCORONARY BYPASS GRAFT 07/23/2016 TRELL STARKEY MD A Ot Z95. 5 PRESENCE OF CORONARY ANGIOPLASTY IMPLANT 07/25/2016 TRELL STARKEY MD Ot E11. 9 TYPE 2 DIABETES MELLITUS WITHOUT COMPLIC 07/25/2016 TRELL STARKEY MD Ot E86. 1 HYPOVOLEMIA 07/25/2016 TRELL STARKEY MD Ot I10 ESSENTIAL (PRIMARY) HYPERTENSION 07/25/2016 TRELL STARKEY MD Ot I25. 10 ATHSCL HEART DISEASE OF [place] CORONARY 07/25/2016 TRELL STARKEY MD Ot I48. 2 CHRONIC ATRIAL FIBRILLATION 07/25/2016 TRELL STARKEY MD Ot I95. 1 ORTHOSTATIC HYPOTENSION 07/25/2016 TRELL STARKEY MD A Ot R42 DIZZINESS AND GIDDINESS 07/25/2016 TRELL STARKEY MD A Ot Z79. 4 [facility] (CURRENT) USE OF INSULIN 07/25/2016 TRELL STARKEY MD A Ot Z79. 82 [facility] (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 07/25/2016 TRELL STARKEY MD A Ot Z79. 84 [facility] (CURRENT) USE OF ORAL HYPOGLYC 07/25/2016 TRELL STARKEY MD A Ot Z79.899 OTHER [facility] (CURRENT) DRUG THERAPY 07/25/2016 TRELL STARKEY MD A Ot Z95. 1 PRESENCE OF AORTOCORONARY BYPASS GRAFT 07/25/2016 TRELL STARKEY MD A Ot Z95. 5 PRESENCE OF CORONARY ANGIOPLASTY IMPLANT 08/09/2016 EUGENE DO ROMAIN K Ot E04.1 NONTOXIC SINGLE THYROID NODULE 08/09/2016 EUGENECristina RIVERA ROMAIN K Ot E11.9 TYPE 2 DIABETES MELLITUS WITHOUT COMPLIC 08/09/2016 EUGENE DO ROMAIN K Ot F17.210 NICOTINE DEPENDENCE, CIGARETTES, UNCOMPL 08/09/2016 EUGENE DO ROMAIN K Ot G89.29 OTHER CHRONIC PAIN 08/09/2016 EUGENE DO ROMAIN K Ot I10 ESSENTIAL (PRIMARY) HYPERTENSION 08/09/2016 ROMAIN KNIGHT DO Ot I25.10 ATHSCL HEART DISEASE OF [place] CORONARY 08/09/2016 ROMAIN KNIGHT DO Ot I48.2 CHRONIC ATRIAL FIBRILLATION 08/09/2016 ROMAIN KNIGHT DO Ot M43.22 FUSION OF SPINE, CERVICAL REGION 08/09/2016 ROMAIN KNIGHT DO Ot M47.812 SPONDYLOSIS W/O MYELOPATHY OR RADICULOPA 08/09/2016 ROMAIN KNIGHT DO Ot M47.814 SPONDYLOSIS W/O MYELOPATHY OR RADICULOPA 08/09/2016 ROMAIN KNIGHT DO Ot S19.9XX A UNSPECIFIED INJURY OF NECK, INITIAL ENCO 08/09/2016 ROMAIN KNIGHT DO Ot 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 08/09/2016 ROMAIN KNIGHT DO Ot 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 08/09/2016 ROMAIN KNIGHT DO Ot Z79.899 OTHER SENIOR STORAGE 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) DRUG THERAPY 08/09/2016 ROMAIN KNIGHT DO [...] DO Ot I25.10 ATHSCL HEART DISEASE OF [place] CORONARY 08/09/2016 ROMAIN KNIGHT DO Ot I48.2 CHRONIC ATRIAL FIBRILLATION 08/09/2016 ROMAIN KNIGHT DO Ot M43.22 FUSION OF SPINE, CERVICAL REGION 08/09/2016 ROMAIN KNIGHT DO Ot M47.812 SPONDYLOSIS W/O MYELOPATHY OR RADICULOPA 08/09/2016 ROMAIN KNIGHT DO Ot M47.814 SPONDYLOSIS W/O MYELOPATHY OR RADICULOPA 08/09/2016 ROMAIN KNIGHT DO Ot S19.9XX A UNSPECIFIED INJURY OF NECK, INITIAL ENCO 08/09/2016 EUGENE ROMAIN Es Ot Z79.01 [facility] (CURRENT) USE OF ANTICOAGULANT 08/09/2016 EUGENE ROMAIN RIVERA Ot 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 08/09/2016 EUGENE DO ROMAIN K Ot Z79.899 OTHER [facility] (CURRENT) DRUG THERAPY 08/09/2016 EUGENE ROMAIN RIVERA Ot 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 IMPLANT 08/11/2016 ROMAIN KNIGHT DO Ot E04.1 NONTOXIC SINGLE THYROID NODULE 08/11/2016 EUGENE GHANSHYAM RIVERAA Es Ot E11.9 TYPE 2 DIABETES MELLITUS WITHOUT COMPLIC 08/11/2016 ROMAIN KNIGHT DO Ot F17.210 NICOTINE DEPENDENCE, CIGARETTES, UNCOMPL 08/11/2016 ROMAIN KNIGHT DO Ot G89.29 OTHER CHRONIC PAIN 08/11/2016 ROMAIN KNIGHT DO Ot I10 ESSENTIAL (PRIMARY) HYPERTENSION 08/11/2016 EUGENE ROMAIN RIVERA Ot I25.10 ATHSCL HEART DISEASE OF [place] CORONARY 08/11/2016 ROMAIN KNIGHT DO Ot I48.2 CHRONIC ATRIAL FIBRILLATION 08/11/2016 ROMAIN KNIGHT DO Ot M43.22 FUSION OF SPINE, CERVICAL REGION 08/11/2016 EUGENE GHANSHYAM RIVERAA Es Ot M47.812 SPONDYLOSIS W/O MYELOPATHY OR RADICULOPA 08/11/2016 EUGENE GHANSHYAM RIVERAA Es Ot M47.814 SPONDYLOSIS W/O MYELOPATHY OR RADICULOPA 08/11/2016 EUGENE ROMAIN RIVERA Ot S19.9XX A UNSPECIFIED INJURY OF NECK, INITIAL ENCO 08/11/2016 EUGENE DO ROMAIN K Ot Z79.01 [facility] (CURRENT) USE OF ANTICOAGULANT 08/11/2016 GHANSHYAM KNIGHT DOA Es Ot Z79.82 [facility] (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 08/11/2016 EUGENE GHANSHYAM RIVERAA K Ot Z79.899 OTHER SENIOR STORAGE 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) DRUG THERAPY 08/11/2016 GHANSHYAM KNIGHT DOA K Ot 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 IMPLANT 08/31/2016 [place] ROUSE DO Ot K29.80 DUODENITIS WITHOUT BLEEDING 08/31/2016 [place] ROUSE DO Ot K85.90 ACUTE PANCREATITIS WITHOUT NECROSIS OR I 09/05/2016 [place] ROUSE DO Ot K29.80 DUODENITIS WITHOUT BLEEDING 09/05/2016 [place] ROUSE DO Ot K85.90 ACUTE PANCREATITIS WITHOUT NECROSIS OR I 09/05/2016 JUSTINE TABARES DO Ot E11.9 TYPE 2 DIABETES MELLITUS WITHOUT COMPLIC 09/05/2016 JUSTINE TABARES DO Ot E86.0 DEHYDRATION 09/05/2016 JUSTINE TABARES DO Ot I1 0 ESSENTIAL (PRIMARY) HYPERTENSION 09/05/2016 JUSTINE TABARES DO, Ot I25.10 ATHSCL HEART DISEASE OF [place] CORONARY 09/05/2016 JUSTINE TABARES DO, Ot I95.9 HYPOTENSION, UNSPECIFIED 09/05/2016 JUSTINE TABARES DO, Ot J44.9 CHRONIC OBSTRUCTIVE PULMONARY DISEASE, U 09/05/2016 JUSTINE TABARES DO, Ot Z79.84 [facility] (CURRENT) USE OF ORAL HYPOGLYC 09/05/2016 JUSTINE TABARES DO, Ot Z79.899 OTHER SENIOR STORAGE 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) DRUG THERAPY 09/05/2016 JUSTINE TABARES DO, Ot Z87.891 PERSONAL HISTORY OF NICOTINE DEPENDENCE 09/05/2016 JUSTINE TABARES DO, Ot Z95.1 PRESENCE OF AORTOCORONARY BYPASS GRAFT 09/05/2016 JUSTINE TABARES DO, Ot 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 IMPLANT 09/06/2016 JUSTINE TABARES DO, Ot E11.9 TYPE 2 DIABETES MELLITUS WITHOUT COMPLIC 09/06/2016 JUSTINE TABARES DO, Ot E86.0 DEHYDRATION 09/06/2016 JUSTINE TABARES DO, Ot I1 0 ESSENTIAL (PRIMARY) HYPERTENSION 09/06/2016 JUSTINE TABARES DO, Ot I25.10 ATHSCL HEART DISEASE OF [place] CORONARY 09/06/2016 JUSTINE TABARES DO, Ot I95.9 HYPOTENSION, UNSPECIFIED 09/06/2016 JUSTINE TABARES DO, Ot J44.9 CHRONIC OBSTRUCTIVE PULMONARY DISEASE, U 09/06/2016 JUSTINE TABARES DO, Ot Z79.84 [facility] (CURRENT) USE OF ORAL HYPOGLYC 09/06/2016 JUSTINE TABARES DO, Ot Z79.899 OTHER [facility] (CURRENT) DRUG THERAPY 09/06/2016 JUSTINE TABARES DO, Ot Z87.891 PERSONAL HISTORY OF NICOTINE DEPENDENCE 09/06/2016 JUSTINE TABARES DO Ot Z95.1 PRESENCE OF AORTOCORONARY BYPASS GRAFT 09/06/2016 JUSTINE TABARES DO Ot 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 IMPLANT 09/07/2016 JUSTINE TABARES DO Ot E11.9 TYPE 2 DIABETES MELLITUS WITHOUT COMPLIC 09/07/2016 JUSTINE TABARES DO Ot E86.0 DEHYDRATION 09/07/2016 JUSTINE TABARES DO Ot I1 0 ESSENTIAL (PRIMARY) HYPERTENSION 09/07/2016 JUSTINE TABARES DO Ot I25.10 ATHSCL HEART DISEASE OF [place] CORONARY 09/07/2016 JUSTINE TABARES DO Ot I95.9 HYPOTENSION, UNSPECIFIED 09/07/2016 JUSTINE TABARES DO, Ot J44.9 CHRONIC OBSTRUCTIVE PULMONARY DISEASE, U 09/07/2016 JUSTINE TABARES DO, Ot Z79.84 [facility] (CURRENT) USE OF ORAL HYPOGLYC 09/07/2016 JUSTINE TABARES DO, Ot Z79.899 OTHER SENIOR STORAGE 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) DRUG THERAPY 09/07/2016 JUSTINE TABARES DO, Ot Z87.891 PERSONAL HISTORY OF NICOTINE DEPENDENCE 09/07/2016 JUSTINE TABARES DO Ot Z95.1 PRESENCE OF AORTOCORONARY BYPASS GRAFT 09/07/2016 JUSTINE TABARES DO Ot 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 IMPLANT 09/17/2016 CHARO SCHNEIDER MD, Ot E11.9 TYPE 2 DIABETES MELLITUS WITHOUT COMPLIC 09/17/2016 CHARO SCHNEIDER MD Ot I10 ESSENTIAL (PRIMARY) HYPERTENSION 09/17/2016 CHARO SCHNEIDER MD, Ot I25.10 ATHSCL HEART DISEASE OF [place] CORONARY 09/17/2016 CHARO SCHNEIDER MD, Ot J44.9 CHRONIC OBSTRUCTIVE PULMONARY DISEASE, U 09/17/2016 CHARO SCHNEIDER MD Ot R10.13 EPIGASTRIC PAIN 09/17/2016 CHARO SCHNEIDER MD, Ot Z79.4 [facility] (CURRENT) USE OF INSULIN 09/17/2016 CHARO SCHNEIDER MD Ot Z79.82 [facility] (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 09/17/2016 CHARO SCHNEIDER MD, Ot 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 09/17/2016 CHARO SCHNEIDER MD, Ot Z79.899 OTHER [facility] (CURRENT) DRUG THERAPY 09/17/2016 CHARO SCHNEIDER MD, Ot Z95.1 PRESENCE OF AORTOCORONARY BYPASS GRAFT 09/17/2016 CHARO SCHNEIDER MD Ot 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 IMPLANT 09/20/2016 CHARO SCHNEIDER MD Ot E11.9 TYPE 2 DIABETES MELLITUS WITHOUT COMPLIC 09/20/2016 CHARO SCHNEIDER MD Ot I10 ESSENTIAL (PRIMARY) HYPERTENSION 09/20/2016 CHARO SCHNEIDER MD, Ot I25.10 ATHSCL HEART DISEASE OF [place] CORONARY 09/20/2016 CHARO SCHNEIDER MD, Ot J44.9 CHRONIC OBSTRUCTIVE PULMONARY DISEASE, U 09/20/2016 CHARO SCHNEIDER MD, Ot R10.13 EPIGASTRIC PAIN 09/20/2016 CHARO SCHNEIDER MD, Ot 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 09/20/2016 CHARO SCHNEIDER MD Ot 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 09/20/2016 CHARO SCHNEIDER MD, Ot 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 09/20/2016 CHARO SCHNEIDER MD, Ot Z79.899 OTHER [facility] (CURRENT) DRUG THERAPY 09/20/2016 CHARO SCHNEIDER MD Ot Z95.1 PRESENCE OF AORTOCORONARY BYPASS GRAFT 09/20/2016 CHARO SCHNEIDER MD Ot Z95.5 PRESENCE OF [...] DO Ot I25.10 ATHSCL HEART DISEASE OF [place] CORONARY 09/20/[address] 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, [place] Bernal Ot I48.0 PAROXYSMAL ATRIAL FIBRILLATION 09/20/[address] [facility], [place] Bernal Ot I48.92 UNSPECIFIED ATRIAL FLUTTER 09/20/[address] [facility], [place] Bernal Ot I73.9 PERIPHERAL VASCULAR DISEASE, UNSPECIFIED 09/20/[address] [facility], [place] Bernal Ot I77.9 DISORDER OF ARTERIES AND ARTERIOLES, UNS 09/20/2016, LLVUIA Bernal Ot I95.9 HYPOTENSION, UNSPECIFIED 09/20/2016LLUVIA Ot J44.9 CHRONIC OBSTRUCTIVE PULMONARY DISEASE, U 09/20/2016 [facility], [place] Bernal Ot K21.9 GASTRO-ESOPHAGEAL REFLUX DISEASE WITHOUT 09/20/2016 [facility] , [place] Bernal Ot M19.91 PRIMARY OSTEOARTHRITIS, UNSPECIFIED SITE 09/20/[address] 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 [facility] , [place] Bernal Ot Z86.73 PRSNL HX OF TIA (TIA), AND CEREB INFRC W 09/20/[address] [facility] [place] Ot Z87.891 PERSONAL HISTORY OF NICOTINE DEPENDENCE 09/20/[address] 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 09/23/2016 Daniel CASTILLO MD, Ot I25.110 ATHSCL HEART DISEASE OF [place] COR ART W 09/23/2016 Daniel CASTILLO MD, Ot 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 09/23/2016 Daniel CASTILLO MD Ot I48.91 UNSPECIFIED ATRIAL FIBRILLATION 09/23/2016 Daniel CASTILLO MD, Ot N18 .9 CHRONIC KIDNEY DISEASE, UNSPECIFIED 09/23/2016 Daniel CASTILLO MD, Ot T82.857D STENOSIS OF OTHER CARDIAC PROSTH DEV/GRF 09/23/2016 Daniel CASTILLO MD, Ot Z79.01 [facility] (CURRENT) USE OF ANTICOAGULANT 09/23/2016 Daniel CASTILLO MD, Ot 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 09/23/2016 Daniel CASTILLO MD, Ot Z79.899 OTHER SENIOR STORAGE 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) DRUG THERAPY 09/23/2016 Daniel CASTILLO MD, [...] TYPE 2 DIABETES MELLITUS WITHOUT COMPLIC 09/27/2016 ROMAIN KNIGHT DO K Ot I48.2 CHRONIC ATRIAL FIBRILLATION 09/27/2016 GHANSHYAM KNIGHT DOA K Ot I95.9 HYPOTENSION, UNSPECIFIED 09/27/2016 EUGENE GHANSHYAM RIVERAA K Ot J44.9 CHRONIC OBSTRUCTIVE PULMONARY DISEASE, U 09/27/2016 ROMAIN KNIGHT DO Ot Z79.01 [facility] (CURRENT) USE OF ANTICOAGULANT 09/27/2016 EUGENE RIVERAROMAIN Ot 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 09/27/2016 EUGENE DOGHANSHYAMA Es Ot Z79.82 [facility] (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 09/27/2016 EUGENE RIVERAGHANSHYAMA K Ot Z79.899 OTHER [facility] (CURRENT) DRUG THERAPY 09/27/2016 EUGENE RIVERA ROMAIN K Ot Z87.891 PERSONAL HISTORY OF NICOTINE DEPENDENCE 09/27/2016 EUGENE RIVERAGHANSHYAMA Es Ot Z95.1 PRESENCE OF AORTOCORONARY BYPASS GRAFT 09/27/2016 EUGENE DOROMAIN Ot 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 IMPLANT 09/27/2016 EUGENE RIVERAGHANSHYAMA Es Ot Z98.890 OTHER SPECIFIED POSTPROCEDURAL STATES 09/28/2016 Daniel CASTILLO MD Ot 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 09/28/2016 Daniel CASTILLO MD Ot I25.110 ATHSCL HEART DISEASE OF [place] COR ART W 09/28/2016 Daniel CASTILLO MD Ot 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 09/28/2016 Daniel CASTILLO MD Ot I48.91 UNSPECIFIED ATRIAL FIBRILLATION 09/28/2016 Daniel CASTILLO MD, Ot N18 .9 CHRONIC KIDNEY DISEASE, UNSPECIFIED 09/28/2016 Daniel CASTILLO MD, Ot T82.857D STENOSIS OF OTHER CARDIAC PROSTH DEV/GRF 09/28/2016 Daniel CASTILLO MD, Ot Z79.01 [facility] (CURRENT) USE OF ANTICOAGULANT 09/28/2016 Daniel CASTILLO MD Ot 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 09/28/2016 Daniel CASTILLO MD, Ot Z79.899 OTHER SENIOR STORAGE 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) DRUG THERAPY 09/28/2016 Daniel CASTILLO MD, Ot Z87.891 PERSONAL HISTORY OF NICOTINE DEPENDENCE 09/28/2016 Daniel CASTILLO MD Ot Z95 .5 PRESENCE OF CORONARY ANGIOPLASTY IMPLANT 09/30/2016 Daniel CASTILLO MD Ot 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 09/30/2016 Daniel CASTILLO MD Ot I25.110 ATHSCL HEART DISEASE OF [place] COR ART W 09/30/2016 Daniel CASTILLO MD, Ot 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 09/30/2016 Daniel CASTILLO MD Ot I48.91 UNSPECIFIED ATRIAL FIBRILLATION 09/30/2016 Daniel CASTILLO MD Ot N18 .9 CHRONIC KIDNEY DISEASE, UNSPECIFIED 09/30/2016 Daniel CASTILLO MD Ot T82.857D STENOSIS OF OTHER CARDIAC PROSTH DEV/GRF 09/30/2016 Daniel CASTILLO MD, Ot 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 09/30/2016 Daniel CASTILLO MD, Ot 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 09/30/2016 Daniel CASTILLO MD, Ot Z79.899 OTHER [facility] (CURRENT) DRUG THERAPY 09/30/2016 Daniel CASTILLO MD, Ot Z87.891 PERSONAL HISTORY OF NICOTINE DEPENDENCE 09/30/2016 Daniel CASTILLO MD Ot Z95 .5 PRESENCE OF CORONARY ANGIOPLASTY IMPLANT 10/02/2016 LLUVIA ROUSE DO Ot R10.9 UNSPECIFIED ABDOMINAL PAIN 10/17/2016 CHARO SCHNEIDER MD Ot E11.9 TYPE 2 DIABETES MELLITUS WITHOUT COMPLIC 10/17/2016 CHARO SCHNEIDER MD Ot I10 ESSENTIAL (PRIMARY) HYPERTENSION 10/17/2016 CHARO SCHNEIDER MD Ot I25.10 ATHSCL HEART DISEASE OF [place] CORONARY 10/17/2016 CHARO SCHNEIDER MD Ot J44.9 CHRONIC OBSTRUCTIVE PULMONARY DISEASE, U 10/17/2016 CHARO SCHNEIDER MD Ot R10.13 EPIGASTRIC PAIN 10/17/2016 CHARO SCHNEIDER MD Ot 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 10/17/2016 CHARO SCHNEIDER MD Ot Z79.82 [facility] (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 10/17/2016 CHARO SCHNEIDER MD Ot 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 10/17/2016 CHARO SCHNEIDER MD, Ot Z79.899 OTHER SENIOR STORAGE 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) DRUG THERAPY 10/17/2016 CHARO SCHNEIDER MD Ot Z95.1 PRESENCE OF AORTOCORONARY BYPASS GRAFT 10/17/2016 CHARO SCHNEIDER MD Ot 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 IMPLANT 10/23/2016 CHARO SCHNEIDER MD Ot E11.9 TYPE 2 DIABETES MELLITUS WITHOUT COMPLIC 10/23/2016 CHARO SCHNEIDER MD Ot I10 ESSENTIAL (PRIMARY) HYPERTENSION 10/23/2016 CHARO SCHNEIDER MD Ot I25.10 ATHSCL HEART DISEASE OF [place] CORONARY 10/23/2016 CHARO SCHNEIDER MD, Ot J44.9 CHRONIC OBSTRUCTIVE PULMONARY DISEASE, U 10/23/2016 CHARO SCHNEIDER MD Ot R10.13 EPIGASTRIC PAIN 10/23/2016 CHARO SCHNEIDER MD Ot Z79.4 [facility] (CURRENT) USE OF INSULIN 10/23/2016 CHARO SCHNEIDER MD, Ot 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 10 ATHSCL HEART DISEASE OF [place] CORONARY 11/27/2016 WENDY SRAMIENTO MD Ot I25. 2 OLD MYOCARDIAL INFARCTION [...] 11/27/2016 WENDY SARMIENTO MD Ot Z79. 4 [facility] (CURRENT) USE OF INSULIN 11/27/2016 WENDY SARMIENTO MD Ot Z79. 82 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 11/27/2016 WENDY SARMIENTO MD Ot Z79. 84 SENIOR 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 OF ORAL HYPOGLYC 11/27/2016 WENDY [...] Ot I25. 10 ATHSCL HEART DISEASE OF [place] CORONARY 11/29/2016 WENDY SARMIENTO MD Ot I25. [...] 11/29/2016 WENDY SARMIENTO MD Ot Z79. 4 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 11/29/2016 WENDY SARMIENTO MD Ot Z79. 82 [facility] (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 11/29/2016 WENDY SARMIENTO MD Ot Z79. 84 SENIOR 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 OF ORAL HYPOGLYC 11/29/2016 WENDY SARMIENTO MD Ot Z95. 1 PRESENCE OF AORTOCORONARY BYPASS GRAFT 11/29/2016 WENYD SARMIENTO MD Ot Z95. 5 PRESENCE OF [...] Ot I25. 10 ATHSCL HEART DISEASE OF [place] CORONARY 11/29/2016 WENDY SARMIENTO MD Ot I25. [...] 11/29/2016 WENDY SARMIENTO MD Ot Z79. 4 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 11/29/2016 WENDY SARMIENTO MD Ot Z79. 82 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 11/29/2016 WENDY SARMIENTO MD Ot Z79. 84 [facility] (CURRENT) USE OF ORAL HYPOGLYC 11/29/2016 WENDY SARIMENTO MD Ot Z95. 1 PRESENCE OF AORTOCORONARY BYPASS GRAFT 11/29/2016 WENDY SARMIENTO MD Ot Z95. 5 PRESENCE OF CORONARY ANGIOPLASTY IMPLANT 12/05/2016 LLUVIA ROUSE DO Ot E11.9 TYPE 2 DIABETES MELLITUS WITHOUT COMPLIC 12/05/2016 LLUVIA ROUSE DO Ot E78.5 HYPERLIPIDEMIA, UNSPECIFIED 12/05/2016 LLUVIA ROUSE DO Ot F17.210 NICOTINE DEPENDENCE, CIGARETTES, UNCOMPL 12/05/2016 LLUVIA ROUSE DO Ot I12.9 HYPERTENSIVE CHRONIC KIDNEY DISEASE W ST 12/05/2016 LLUVIA ROUSE DO Ot I25.10 ATHSCL HEART DISEASE OF [place] CORONARY 12/05/2016 LLUVIA ROUSE DO Ot I48.1 PERSISTENT ATRIAL FIBRILLATION 12/05/2016 LLUVIA ROUSE DO Ot J44.9 CHRONIC OBSTRUCTIVE PULMONARY DISEASE, U 12/05/2016 LLUVIA ROUSE DO Ot K85.90 ACUTE PANCREATITIS WITHOUT NECROSIS OR I 12/05/2016 LLUVIA ROUSE DO Ot N18.9 CHRONIC KIDNEY DISEASE, UNSPECIFIED 12/05/2016 LLUVIA ROUSE DO Ot R07.9 CHEST PAIN, UNSPECIFIED 12/05/2016 LLUVIA ROUSE DO Ot 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 12/05/2016 LLUVIA ROUSE DO Ot Z79.82 [facility] (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 12/05/2016 LLUVIA ROUSE DO Ot 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 12/05/2016 LLUVIA ROUSE DO Ot Z79.899 OTHER [facility] (CURRENT) DRUG THERAPY 12/05/2016 LLUVIA ROUSE DO Ot Z95.1 PRESENCE OF AORTOCORONARY BYPASS GRAFT 12/05/2016 LLUVIA ROUSE DO Ot 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 IMPLANT 12/16/2016 JUSTINE TABARES DO, Ot E11.9 TYPE 2 DIABETES MELLITUS WITHOUT COMPLIC 12/16/2016 JUSTINE TABARES DO, Ot E78.00 PURE HYPERCHOLESTEROLEMIA, UNSPECIFIED 12/16/2016 JUSTINE TABARES DO, Ot I1 0 ESSENTIAL (PRIMARY) HYPERTENSION 12/16/2016 JUSTINE TABARES DO, Ot I25.10 ATHSCL HEART DISEASE OF [place] CORONARY 12/16/2016 JUSTINE TABARES DO, Ot I25.2 OLD MYOCARDIAL INFARCTION 12/16/2016 JUSTINE TABARES DO, Ot I48.91 UNSPECIFIED ATRIAL FIBRILLATION 12/16/2016 JUSTINE [...] (GASEOUS) 12/16/2016 JUSTINE TABARES DO, Ot 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 12/16/2016 JUSTINE TABARES DO, Ot Z79.82 [facility] (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 12/16/2016 JUSTINE TABARES [...] DO, Ot I25.10 ATHSCL HEART DISEASE OF [place] CORONARY 12/18/2016 JUSTINE TABARES DO, Ot I25.2 [...] (GASEOUS) 12/18/2016 JUSTINE TABARES DO, Ot Z79.4 [facility] (CURRENT) USE OF INSULIN 12/18/2016 JUSTINE TABARES DO, Ot Z79.82 [facility] (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 12/18/2016 JUSTINE TABARES [...] DO, Ot I25.10 ATHSCL HEART DISEASE OF [place] CORONARY 12/22/2016 JUSTINE TABARES DO, Ot I25.2 [...] DO, Ot R14.0 ABDOMINAL DISTENSION (GASEOUS) 12/22/2016 JUSTINE TABARES DO, Ot Z79.4 [facility] (CURRENT) USE OF INSULIN 12/22/2016 JUSTINE TABARES DO, Ot Z79.82 [facility] (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 12/22/2016 JUSTINE TABARES [...] PRESENCE OF CORONARY ANGIOPLASTY IMPLANT 12/22/2016 JUSTINE TAABRES DO, Ot Z96.60 PRESENCE OF UNSPECIFIED ORTHOPEDIC JOINT 01/05/2017 JONATHAN DOUGHERTY, Daniel MONSALVE Ot 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 01/05/2017 Daniel CASTILLO MD Ot I25.110 ATHSCL HEART DISEASE OF [place] COR ART W 01/05/2017 Dainel CASTILLO MD Ot 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 01/05/2017 Daniel CASTILLO MD Ot I48.91 UNSPECIFIED ATRIAL FIBRILLATION 01/05/2017 Daniel CASTILLO MD Ot N18 .9 CHRONIC KIDNEY DISEASE, UNSPECIFIED 01/05/2017 Daniel CASTILLO MD Ot 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 4 VIRAL [...] Ot I25. 10 ATHSCL HEART DISEASE OF [place] CORONARY 01/14/2017 WENDY SARMIENTO MD Ot I25. [...] 01/14/2017 WENDY SARMIENTO MD Ot Z79. 4 [facility] (CURRENT) USE OF INSULIN 01/14/2017 WENDY SARMIENTO MD Ot Z79. 82 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 01/14/2017 WENDY SARMIENTO MD Ot Z79. 84 [facility] (CURRENT) USE OF ORAL HYPOGLYC 01/14/2017 WENDY SARMIENTO MD Ot Z82. 49 FAMILY HX OF ISCHEM HEART DIS AND OTH DI 01/14/2017 WENDY SARMIENTO MD Ot Z86.010 PERSONAL HISTORY OF COLONIC POLYPS 01/14/2017 WENDY SARMIENTO MD, Ot Z86. 73 PRSNL HX OF TIA (TIA), AND CEREB INFRC W 01/14/2017 WENDY SARMIENTO MD, Ot Z87. 19 PERSONAL [...] Ot I25. 10 ATHSCL HEART DISEASE OF [place] CORONARY 01/16/2017 WENDY SARMIENTO MD Ot I25. [...] R53. 83 OTHER [place] 01/16/2017 WENDY SARMIENTO MD, Ot Z79. 4 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 01/16/2017 WENDY SARMIENTO MD, Ot Z79. 82 [facility] (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 01/16/2017 WENDY SARMIENTO MD, Ot Z79. 84 SENIOR 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 OF ORAL HYPOGLYC 01/16/2017 WENDY SARMIENTO MD, Ot Z82. 49 FAMILY HX OF [place]HE[place] HEART DIS AND OTH DI 01/16/2017 WENDY SARMIENTO MD, Ot Z86.010 PERSONAL HISTORY OF COLONIC POLYPS 01/16/2017 WENDY SARMIENTO MD, Ot Z86. 73 PRSNL HX OF TIA (TIA), AND CEREB INFRC W 01/16/2017 WENDY SARMIENTO MD, Ot Z87. 19 PERSONAL [...] Ot I25. 10 ATHSCL HEART DISEASE OF [place] CORONARY 01/16/2017 WENDY SARMIENTO MD Ot I25. 2 OLD MYOCARDIAL INFARCTION 01/16/2017 WENDY SARMIENTO MD Ot I48. 91 UNSPECIFIED ATRIAL FIBRILLATION 01/16/2017 WENDY SARMIENTO MD Ot I73. 9 PERIPHERAL VASCULAR DISEASE, UNSPECIFIED 01/16/2017 WENDY SARMIENTO MD, Ot J44. 9 CHRONIC OBSTRUCTIVE PULMONARY DISEASE, U 01/16/2017 WENDY SARMIENTO MD, Ot K21. 9 GASTRO-ESOPHAGEAL REFLUX DISEASE WITHOUT 01/16/2017 WENDY SARMIENTO MD Ot N40. 0 BENIGN PROSTATIC HYPERPLASIA WITHOUT LOW 01/16/2017 WENDY SARMIENTO MD Ot R53. 83 OTHER [place] 01/16/2017 WENDY SARMIENTO MD, Ot Z79. 4 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 01/16/2017 WENDY SARMIENTO MD Ot Z79. 82 [facility] (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 01/16/2017 WENDY SARMIENTO MD Ot Z79. 84 SENIOR 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 OF ORAL HYPOGLYC 01/16/2017 WENDY SARMIENTO MD Ot Z82. 49 FAMILY HX OF [place] HEART DIS AND OTH DI 01/16/2017 WENDY SARMIENTO MD, Ot Z86.010 PERSONAL HISTORY OF COLONIC POLYPS 01/16/2017 WENDY SARMIENTO MD Ot Z86. 73 PRSNL HX OF TIA (TIA), AND CEREB INFRC W 01/16/2017 WENDY SARMIENTO MD, Ot Z87. 19 PERSONAL HISTORY OF OTHER DISEASES OF TH 01/16/2017 WENDY SARMIENTO MD Ot Z95. 1 PRESENCE OF AORTOCORONARY BYPASS GRAFT 01/16/2017 WENDY SARMIENTO MD Ot Z95. 5 PRESENCE OF CORONARY ANGIOPLASTY IMPLANT 02/03/2017 FAMILIA JIMENES MD Ot M79. 89 OTHER SPECIFIED SOFT TISSUE DISORDERS 02/06/2017 FAMILIA JIMENES MD Ot M79. 89 OTHER SPECIFIED SOFT TISSUE DISORDERS 02/06/2017 FAMILIA JIMENES MD Ot M79. 89 OTHER SPECIFIED SOFT TISSUE DISORDERS 02/07/2017 FAMILIA JIMENES MD Ot M79. 89 OTHER SPECIFIED SOFT TISSUE DISORDERS 02/09/2017 FAMILIA JIMENES MD, Ot M79. 89 OTHER SPECIFIED SOFT TISSUE DISORDERS 02/19/2017 ROMAIN KNIGHT DO Ot E04.1 NONTOXIC SINGLE THYROID NODULE 02/19/2017 ROMAIN KNIGHT DO Ot E11.9 TYPE 2 DIABETES MELLITUS WITHOUT COMPLIC 02/19/2017 EUGENE RIVERA ROMAIN Sgugs Ot F17.210 NICOTINE DEPENDENCE, CIGARETTES, UNCOMPL 02/19/2017 EUGENE DO ROMAIN Suggs Ot G89.29 OTHER CHRONIC PAIN 02/19/2017 EUGENE DO ROMAIN Es Ot I10 ESSENTIAL (PRIMARY) HYPERTENSION 02/19/2017 EUGENE RIVERA ROMAIN Es Ot I25.10 ATHSCL HEART DISEASE OF [place] CORONARY 02/19/2017 EUGENE DO ROMAIN Es Ot I48.2 CHRONIC ATRIAL FIBRILLATION 02/19/2017 EUGENE ROMAIN Es Ot M43.22 FUSION OF SPINE, CERVICAL REGION 02/19/2017 EUGENE ROMAIN K Ot M47.812 SPONDYLOSIS W/O MYELOPATHY OR RADICULOPA 02/19/2017 EUGENE RIVERA ROMAIN K Ot M47.814 SPONDYLOSIS W/O MYELOPATHY OR RADICULOPA 02/19/2017 EUGENE ROMAIN Es Ot S19.9XX A UNSPECIFIED INJURY OF NECK, INITIAL ENCO 02/19/2017 EUGENE GHANSHYAMA Es Ot Z79.01 [facility] (CURRENT) USE OF ANTICOAGULANT 02/19/2017 ROMAIN KNIGHT DO Ot Z79.82 [facility] (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 02/19/2017 ROMAIN KNIGHT DO Ot Z79.899 OTHER [facility] (CURRENT) DRUG THERAPY 02/19/2017 ROMAIN KNIGHT DO Ot Z95.5 PRESENCE OF [...] CARBAJAL Ot I25.10 ATHSCL HEART DISEASE OF [place] CORONARY 03/18/2017 JENN CARBAJAL Ot I25.2 OLD [...] FACTORS, INI 03/18/2017 JENN CARBAJAL Ot Z79.4 [facility] (CURRENT) USE OF INSULIN 03/18/2017 JENN CARBAJAL Ot 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 03/18/2017 JENN CARBAJAL [...] CARBAJAL Ot I25.10 ATHSCL HEART DISEASE OF [place] CORONARY 03/20/2017 JENN CARBAJAL Ot I25.2 OLD [...] FACTORS, INI 03/20/2017 JENN CARBAJAL Ot 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 10 ATHSCL HEART DISEASE OF [place] CORONARY 04/23/2017 WENDY SARMIENTO MD Ot I25. [...] 04/23/2017 WENDY SARMIENTO MD Ot Z79. 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 OF ANTICOAGULANT 04/23/2017 WENDY SARMIENTO MD Ot Z79. 4 [facility] (CURRENT) USE OF INSULIN 04/23/2017 WENDY SARMIENTO MD Ot Z79. 82 [facility] (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 04/23/2017 WENDY SARMIENTO MD Ot Z79.899 OTHER [facility] (CURRENT) DRUG THERAPY 04/23/2017 WENDY SARMIENTO MD [...] Ot I25. 10 ATHSCL HEART DISEASE OF [place] CORONARY 04/30/2017 WENDY SARMIENTO MD Ot I25. [...] PROSTATIC HYPERPLASIA WITHOUT LOW 04/30/2017 WENDY SARMIENTO MD Ot R03. 0 ELEVATED BLOOD-PRESSURE READING, W/O CASTRO 04/30/2017 WENDY SARMIENTO MD Ot Z79. 01 [facility] (CURRENT) USE OF ANTICOAGULANT 04/30/2017 WENDY SARMIENTO MD Ot Z79. 4 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 04/30/2017 WENDY SARMIENTO MD Ot Z79. 82 [facility] (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 04/30/2017 WENDY SARMIENTO MD Ot Z79.899 OTHER SENIOR STORAGE 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) DRUG THERAPY 04/30/2017 WENDY SARMIENTO MD Ot Z82. 49 FAMILY HX OF [place] HEART DIS AND OTH DI 04/30/2017 WENDY SARMIENTO MD Ot Z86.010 PERSONAL HISTORY OF COLONIC POLYPS 04/30/2017 WENDY SARMIENTO MD Ot Z86. 73 PRSNL HX OF TIA (TIA), AND CEREB INFRC W 04/30/2017 WENDY SARMIENTO MD Ot Z87. 19 PERSONAL HISTORY OF OTHER DISEASES OF TH 04/30/2017 WENDY SARMIENTO MD Ot Z87.891 PERSONAL HISTORY OF NICOTINE DEPENDENCE 04/30/2017 WENDY SARMIENTO MD Ot Z95. 1 PRESENCE OF AORTOCORONARY BYPASS GRAFT 04/30/2017 WENDY SARMIENTO MD Ot Z95. 5 PRESENCE OF CORONARY ANGIOPLASTY IMPLANT 06/21/2017 KHUSHBOO DOUGHERTY, RODOLFO Mendieta Ot E11.9 TYPE 2 DIABETES MELLITUS WITHOUT COMPLIC 06/21/2017 RODOLFO CUELLO MD, Ot F41.9 ANXIETY DISORDER, UNSPECIFIED 06/21/2017 RODOLFO CUELLO MD, Ot G47.30 SLEEP APNEA, UNSPECIFIED 06/21/2017 RODOLFO CUELLO MD Ot I10 ESSENTIAL (PRIMARY) HYPERTENSION 06/21/2017 RODOLFO CUELLO MD Ot I25.10 ATHSCL HEART DISEASE OF [place] CORONARY 06/21/2017 RODOLFO CUELLO MD, Ot I25.2 OLD MYOCARDIAL INFARCTION 06/21/2017 RODOLFO CUELLO MD Ot I48.91 UNSPECIFIED ATRIAL FIBRILLATION 06/21/2017 RODOLFO CUELLO MD, Ot I73.9 PERIPHERAL VASCULAR DISEASE, UNSPECIFIED 06/21/2017 RODOLFO CUELLO MD, Ot J44.9 CHRONIC OBSTRUCTIVE PULMONARY DISEASE, U 06/21/2017 RODOLFO CUELLO MD, Ot K21.9 GASTRO-ESOPHAGEAL REFLUX DISEASE WITHOUT 06/21/2017 RODOLFO CUELLO MD Ot M54.2 CERVICALGIA 06/21/2017 RODOLFO CUELLO MD, Ot N40.0 BENIGN PROSTATIC HYPERPLASIA WITHOUT LOW 06/21/2017 RODOLFO CUELLO MD Ot S00.83XA CONTUSION OF OTHER PART OF HEAD, INITIAL 06/21/2017 RODOLFO CUELLO MD, Ot W01.198A FALL SAME LEV FROM SLIP/TRIP W STRIKE AG 06/21/2017 RODOLFO CUELLO MD Ot Z77.22 CNTCT W AND EXPSR TO ENVIRON TOBACCO SMO 06/21/2017 RODOLFO CUELLO MD, Ot 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 06/21/2017 RODOLFO CUELLO MD Ot 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 06/21/2017 RODOLFO CUELLO MD Ot Z79.52 [facility] (CURRENT) USE OF SYSTEMIC STER 06/21/2017 RODOLFO [...] ALLERGY STATUS TO PENICILLIN 06/21/2017 RODOLFO CUELLO MD Ot Z88.1 ALLERGY STATUS [...] MD, Ot I25.10 ATHSCL HEART DISEASE OF [place] CORONARY 06/25/2017 RODOLFO CUELLO MD, Ot I25.2 [...] SMO 06/25/2017 RODOLFO CUELLO MD, Ot Z79.01 [facility] (CURRENT) USE OF ANTICOAGULANT 06/25/2017 RODOLFO CUELLO MD, Ot Z79.4 [facility] (CURRENT) USE OF INSULIN 06/25/2017 RODOLFO CUELLO MD, Ot 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 06/25/2017 RODOLFO CUELLO MD, Ot Z82.49 FAMILY HX OF ISCHEM HEART DIS AND OTH DI 06/25/2017 RODOLFO CUELLO MD, Ot Z86.010 PERSONAL HISTORY OF COLONIC POLYPS 06/25/2017 RODOLFO CUELLO MD, Ot Z86.73 PRSNL HX OF TIA (TIA), AND CEREB INFRC W 06/25/2017 RODOLFO CUELLO MD, Ot Z87.19 PERSONAL HISTORY OF OTHER DISEASES OF TH 06/25/2017 RODOLFO CUELLO MD, Ot Z88.0 ALLERGY STATUS TO PENICILLIN 06/25/2017 RODOLFO CUELLO MD, Ot Z88.1 ALLERGY STATUS TO OTHER ANTIBIOTIC AGENT 06/25/2017 RODOLFO CUELLO MD, Ot Z88.5 ALLERGY STATUS TO NARCOTIC AGENT STATUS 06/25/2017 RODOLFO CUELLO MD, Ot Z88.8 ALLERGY STATUS TO OTH DRUG/MEDS/BIOL SUB 06/25/2017 RODOLFO CUELLO MD, Ot Z95.1 PRESENCE OF AORTOCORONARY BYPASS GRAFT 06/25/2017 RODOLFO CUELLO MD, Ot 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 IMPLANT 06/27/2017 RODOLFO CUELLO MD, Ot E11.9 TYPE 2 DIABETES MELLITUS WITHOUT COMPLIC 06/27/2017 RODOLFO CUELLO MD, Ot F41.9 ANXIETY DISORDER, UNSPECIFIED 06/27/2017 RODOLFO CUELLO MD, Ot G47.30 SLEEP APNEA, UNSPECIFIED 06/27/2017 RODOLFO CUELLO MD, Ot I10 ESSENTIAL (PRIMARY) HYPERTENSION 06/27/2017 RODOLFO CUELLO MD, Ot I25.10 ATHSCL HEART DISEASE OF [place] CORONARY 06/27/2017 RODOLFO CUELLO MD, Ot I25.2 OLD MYOCARDIAL INFARCTION 06/27/2017 RODOLFO CUELLO MD, Ot I48.91 UNSPECIFIED ATRIAL FIBRILLATION 06/27/2017 RODOLFO CUELLO MD, Ot I73.9 PERIPHERAL VASCULAR DISEASE, UNSPECIFIED 06/27/2017 [...] SMO 06/27/2017 RODOLFO CUELLO MD, Ot 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 06/27/2017 RODOLFO CUELLO MD, Ot 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 06/27/2017 RODOLFO CUELLO MD, Ot 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 06/27/2017 RODOLFO CUELLO MD, Ot Z82.49 FAMILY HX OF ISCHEM HEART DIS AND OTH DI 06/27/2017 PETER CUELLO MDSHUA T Ot Z86.010 PERSONAL HISTORY OF COLONIC POLYPS 06/27/2017 KHUSHBOO DOUGHERTY, RODOLFO Mendieta Ot Z86.73 PRSNL HX OF TIA (TIA), AND CEREB INFRC W 06/27/2017 RODOLFO CUELLO MD, Ot Z87.19 PERSONAL HISTORY OF OTHER DISEASES OF TH 06/27/2017 RODOLFO CUELLO MD Ot Z88.0 ALLERGY STATUS TO PENICILLIN 06/27/2017 RODOLFO CUELLO MD Ot Z88.1 ALLERGY STATUS TO OTHER ANTIBIOTIC AGENT 06/27/2017 KHUSHBOO DOUGHERTY, RODOLFO Mendieta Ot Z88.5 ALLERGY STATUS TO NARCOTIC AGENT STATUS 06/27/2017 RODOLFO CUELLO MD Ot Z88.8 ALLERGY STATUS TO OT DRUG/MEDS/BIOL SUB 06/27/2017 KHUSHBOO DOUGHERTY, RODOLFO Mendieta Ot Z95.1 PRESENCE OF AORTOCORONARY BYPASS GRAFT 06/27/2017 KHUSHBOO DOUGHERTY, RODOLFO Mendieta Ot 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 IMPLANT 07/15/2017 MARY MENDEZP Ot 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 07/15/2017 MARY MENDEZP Ot E78.00 PURE HYPERCHOLESTEROLEMIA, UNSPECIFIED 07/15/2017 MARY MENDEZP Ot F41.9 ANXIETY DISORDER, UNSPECIFIED 07/15/2017 MARY MENDEZP Ot G47.30 SLEEP APNEA, UNSPECIFIED 07/15/2017 VANESSA MARY INSULATION BOARD BACK TENDER Ot I10 ESSENTIAL (PRIMARY) HYPERTENSION 07/15/2017 MARY MENDEZP Ot I25.10 ATHSCL HEART DISEASE OF [place] CORONARY 07/15/2017 MARY MENDEZP Ot I25.2 OLD MYOCARDIAL INFARCTION 07/15/2017 MARY MENDEZ INSULATION BOARD BACK TENDER Ot I48.91 UNSPECIFIED ATRIAL FIBRILLATION 07/15/2017 MARY MENDEZP Ot I73.9 PERIPHERAL VASCULAR DISEASE, UNSPECIFIED 07/15/2017 MARY MENDEZP Ot J44.9 CHRONIC OBSTRUCTIVE PULMONARY DISEASE, U 07/15/2017 MARY MENDEZ INSULATION BOARD BACK TENDER Ot K21.9 GASTRO-ESOPHAGEAL REFLUX DISEASE WITHOUT 07/15/2017 MARY MENDEZP Ot R05 COUGH 07/15/2017 MARY MENDEZP Ot 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 07/15/2017 MARY MENDEZP Ot 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 07/15/2017 MARY MENDEZP Ot Z79.52 [facility] (CURRENT) USE OF SYSTEMIC STER 07/15/2017 VANESSAMARY Spears INSULATION BOARD BACK TENDER Ot Z82.49 FAMILY HX OF ISCHEM HEART DIS AND OTH DI 07/15/2017 MARY MENDEZP Ot Z86.010 PERSONAL HISTORY OF COLONIC POLYPS 07/15/2017 VANESSAMARY Spears INSULATION BOARD BACK TENDER Ot Z86.73 PRSNL HX OF TIA (TIA), AND CEREB INFRC W 07/15/2017 MARY MENDEZ INSULATION BOARD BACK TENDER Ot Z87.19 PERSONAL HISTORY OF OTHER DISEASES OF TH 07/15/2017 MARY MENDEZP Ot Z87.891 PERSONAL HISTORY OF NICOTINE DEPENDENCE 07/15/2017 MARY MENDEZ INSULATION BOARD BACK TENDER Ot Z88.0 ALLERGY STATUS TO PENICILLIN 07/15/2017 MARY MENDEZ INSULATION BOARD BACK TENDER Ot Z88.1 ALLERGY STATUS TO OTHER ANTIBIOTIC AGENT 07/15/2017 MARY MENDEZ INSULATION BOARD BACK TENDER Ot Z88.5 ALLERGY STATUS TO NARCOTIC AGENT STATUS 07/15/2017 MARY MENDEZ INSULATION BOARD BACK TENDER Ot Z88.8 ALLERGY STATUS TO OT DRUG/MEDS/BIOL SUB 07/15/2017 MARY MENDEZ INSULATION BOARD BACK TENDER Ot Z95.1 PRESENCE OF AORTOCORONARY BYPASS GRAFT 07/15/2017 MARY MENDEZ INSULATION BOARD BACK TENDER Ot 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 IMPLANT 07/17/2017 MARY MENDEZ INSULATION BOARD BACK TENDER Ot 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 07/17/2017 MARY MENDEZ INSULATION BOARD BACK TENDER Ot E78.00 PURE HYPERCHOLESTEROLEMIA, UNSPECIFIED 07/17/2017 VANESSA MARY INSULATION BOARD BACK TENDER Ot F41.9 ANXIETY DISORDER, UNSPECIFIED 07/17/2017 VANESSA MARY INSULATION BOARD BACK TENDER Ot G47.30 SLEEP APNEA, UNSPECIFIED 07/17/2017 VANESSA MARY INSULATION BOARD BACK TENDER Ot I10 ESSENTIAL (PRIMARY) HYPERTENSION 07/17/2017 VANESSA MARY INSULATION BOARD BACK TENDER Ot I25.10 ATHSCL HEART DISEASE OF [place] CORONARY 07/17/2017 VANESSA MARY INSULATION BOARD BACK TENDER Ot I25.2 OLD MYOCARDIAL INFARCTION 07/17/2017 MARY MENDEZ INSULATION BOARD BACK TENDER Ot I48.91 UNSPECIFIED ATRIAL FIBRILLATION 07/17/2017 MARY MENDEZP Ot I73.9 PERIPHERAL VASCULAR DISEASE, UNSPECIFIED 07/17/2017 MARY MENDEZP Ot J44.9 CHRONIC OBSTRUCTIVE PULMONARY DISEASE, U 07/17/2017 MARY MENDEZP Ot K21.9 GASTRO-ESOPHAGEAL REFLUX DISEASE WITHOUT 07/17/2017 MARY MENDEZP Ot R05 COUGH 07/17/2017 MARY MENDEZP Ot Z79.01 [facility] (CURRENT) USE OF ANTICOAGULANT 07/17/2017 MARY MENDEZP Ot Z79.4 [facility] (CURRENT) USE OF INSULIN 07/17/2017 MARY MENDEZP Ot Z79.52 [facility] (CURRENT) USE OF SYSTEMIC STER 07/17/2017 MARY MENDEZP Ot Z82.49 FAMILY HX OF ISCHEM HEART DIS AND OTH DI 07/17/2017 MARY MENDEZP Ot Z86.010 PERSONAL HISTORY OF COLONIC POLYPS 07/17/2017 MARY MENDEZP Ot Z86.73 PRSNL HX OF TIA (TIA), AND CEREB INFRC W 07/17/2017 MARY MENDEZP Ot Z87.19 PERSONAL HISTORY OF OTHER DISEASES OF TH 07/17/2017 MARY MENDEZP Ot Z87.891 PERSONAL HISTORY OF NICOTINE DEPENDENCE 07/17/2017 MARY MENDEZP Ot Z88.0 ALLERGY STATUS TO PENICILLIN 07/17/2017 MARY MENDEZP Ot Z88.1 ALLERGY STATUS TO OTHER ANTIBIOTIC AGENT 07/17/2017 MARY MENDEZP Ot Z88.5 ALLERGY STATUS TO NARCOTIC AGENT STATUS 07/17/2017 MARY MENDEZP Ot Z88.8 ALLERGY STATUS TO [facility] DRUG/MEDS/BIOL SUB 07/17/2017 MARY MENDEZ INSULATION BOARD BACK TENDER Ot Z95.1 PRESENCE OF AORTOCORONARY BYPASS GRAFT 07/17/2017 MARY MENDEZ INSULATION BOARD BACK TENDER Ot 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 IMPLANT 07/17/2017 MARY MENDEZP Ot 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 07/17/2017 MARY MENDEZ INSULATION BOARD BACK TENDER Ot E78.00 PURE HYPERCHOLESTEROLEMIA, UNSPECIFIED 07/17/2017 MARY MENDEZ INSULATION BOARD BACK TENDER Ot F41.9 ANXIETY DISORDER, UNSPECIFIED 07/17/2017 MARY MENDEZ INSULATION BOARD BACK TENDER Ot G47.30 SLEEP APNEA, UNSPECIFIED 07/17/2017 VANESSAMARY SpearsP Ot I10 ESSENTIAL (PRIMARY) HYPERTENSION 07/17/2017 VANESSAMARY Spears INSULATION BOARD BACK TENDER Ot I25.10 ATHSCL HEART DISEASE OF [place] CORONARY 07/17/2017 VANESSAMARY SpearsP Ot I25.2 OLD MYOCARDIAL INFARCTION 07/17/2017 MARY MENDEZ INSULATION BOARD BACK TENDER Ot I48.91 UNSPECIFIED ATRIAL FIBRILLATION 07/17/2017 VANESSAMARY Spears INSULATION BOARD BACK TENDER Ot I73.9 PERIPHERAL VASCULAR DISEASE, UNSPECIFIED 07/17/2017 VANESSAMARY SpearsP Ot J44.9 CHRONIC OBSTRUCTIVE PULMONARY DISEASE, U 07/17/2017 VANESSAMARY SpearsP Ot K21.9 GASTRO-ESOPHAGEAL REFLUX DISEASE WITHOUT 07/17/2017 VANESSAAMRY SpearsP Ot R05 COUGH 07/17/2017 VANESSAMARY Spears INSULATION BOARD BACK TENDER Ot Z79.01 [facility] (CURRENT) USE OF ANTICOAGULANT 07/17/2017 MARY MENDEZP Ot 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 07/17/2017 MARY MENDEZP Ot 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 07/17/2017 VANESSAMARY Spears INSULATION BOARD BACK TENDER Ot Z82.49 FAMILY HX OF ISCHEM HEART DIS AND OTH DI 07/17/2017 VANESSAMARY pSears INSULATION BOARD BACK TENDER Ot Z86.010 PERSONAL HISTORY OF COLONIC POLYPS 07/17/2017 MARY MENDEZ INSULATION BOARD BACK TENDER Ot Z86.73 PRSNL HX OF TIA (TIA), AND CEREB INFRC W 07/17/2017 MARY MENDEZ INSULATION BOARD BACK TENDER Ot Z87.19 PERSONAL HISTORY OF OTHER DISEASES OF TH 07/17/2017 MARY MENDEZ INSULATION BOARD BACK TENDER Ot Z87.891 PERSONAL HISTORY OF NICOTINE DEPENDENCE 07/17/2017 MARY MENDEZ INSULATION BOARD BACK TENDER Ot Z88.0 ALLERGY STATUS TO PENICILLIN 07/17/2017 MARY MENDEZ INSULATION BOARD BACK TENDER Ot Z88.1 ALLERGY STATUS TO OTHER ANTIBIOTIC AGENT 07/17/2017 MARY MENDEZ INSULATION BOARD BACK TENDER Ot Z88.5 ALLERGY STATUS TO NARCOTIC AGENT STATUS 07/17/2017 MARY MENDEZ INSULATION BOARD BACK TENDER Ot Z88.8 ALLERGY STATUS TO OT DRUG/MEDS/BIOL SUB 07/17/2017 MARY MENDEZ INSULATION BOARD BACK TENDER Ot Z95.1 PRESENCE OF AORTOCORONARY BYPASS GRAFT 07/17/2017 MARY MENDEZ INSULATION BOARD BACK TENDER Ot 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 IMPLANT 07/19/2017 EUGENE DO, RMOAIN K Ot E11.9 TYPE 2 DIABETES MELLITUS WITHOUT COMPLIC 07/19/2017 EUGENE ROMAIN K Ot E78.00 PURE HYPERCHOLESTEROLEMIA, UNSPECIFIED 07/19/2017 EUGENE ROMAIN K Ot F41.9 ANXIETY DISORDER, UNSPECIFIED 07/19/2017 EUGENE ROMAIN K Ot G47.30 SLEEP APNEA, UNSPECIFIED 07/19/2017 EUGENE ROMAIN K Ot I10 ESSENTIAL (PRIMARY) HYPERTENSION 07/19/2017 EUGENE ROMAIN K Ot I25.10 ATHSCL HEART DISEASE OF [place] CORONARY 07/19/2017 EUGENE ROMAIN K Ot I25.2 OLD MYOCARDIAL INFARCTION 07/19/2017 EUGENE ROMAIN K Ot I48.91 UNSPECIFIED ATRIAL FIBRILLATION 07/19/2017 EUGENE ROMAIN K Ot I73.9 PERIPHERAL VASCULAR DISEASE, UNSPECIFIED 07/19/2017 EUGENE ROMAIN K Ot J44.9 CHRONIC OBSTRUCTIVE PULMONARY DISEASE, U 07/19/2017 EUGENE ROMAIN K Ot K21.9 GASTRO-ESOPHAGEAL REFLUX DISEASE WITHOUT 07/19/2017 EUGENE ROMAIN K Ot R07.89 OTHER CHEST PAIN 07/19/2017 EUGENE ROMAIN K Ot 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 07/19/2017 EUGENE GHANSHYAMA K Ot 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 07/19/2017 EUGENE GHANSHYAMA K Ot 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 07/19/2017 EUGENE DO ROMAIN Es Ot Z82.49 FAMILY HX OF ISCHEM HEART DIS AND OTH DI 07/19/2017 EUGENE ROMAIN K Ot Z86.010 PERSONAL HISTORY OF COLONIC POLYPS 07/19/2017 EUGENE ROMAIN K Ot Z86.73 PRSNL HX OF TIA (TIA), AND CEREB INFRC W 07/19/2017 EUGENE GHANSHYAMA K Ot Z87.19 PERSONAL HISTORY OF OTHER DISEASES OF TH 07/19/2017 EUGENE GHANSHYAMA K Ot Z87.891 PERSONAL HISTORY OF NICOTINE DEPENDENCE 07/19/2017 EUGENE GHANSHYAMA K Ot Z88.0 ALLERGY STATUS TO PENICILLIN 07/19/2017 EUGENE GHANSHYAMA K Ot Z88.1 ALLERGY STATUS TO OTHER ANTIBIOTIC AGENT 07/19/2017 EUGENE RIVERA ROMAIN Suggs Ot Z88.6 ALLERGY STATUS TO ANALGESIC AGENT STATUS 07/19/2017 EUGENE RIVERA ROMAIN Suggs Ot Z88.8 ALLERGY STATUS TO OTH DRUG/MEDS/BIOL SUB 07/19/2017 EUGENE RIVERA ROMAIN K Ot Z95.1 PRESENCE OF AORTOCORONARY BYPASS GRAFT 07/19/2017 EUGENE ROMAIN K Ot 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 IMPLANT 07/23/2017 EUGENE ROMAIN K Ot E11.9 TYPE 2 DIABETES MELLITUS WITHOUT COMPLIC 07/23/2017 EUGENE ROMAIN K Ot E78.00 PURE HYPERCHOLESTEROLEMIA, UNSPECIFIED 07/23/2017 EUGENE ROMAIN K Ot F41.9 ANXIETY DISORDER, UNSPECIFIED 07/23/2017 EUGENE ROMAIN K Ot G47.30 SLEEP APNEA, UNSPECIFIED 07/23/2017 EUGENE ROMAIN K Ot I10 ESSENTIAL (PRIMARY) HYPERTENSION 07/23/2017 EUGENE ROMAIN K Ot I25.10 ATHSCL HEART DISEASE OF [place] CORONARY 07/23/2017 EUGENE RIVERA ROMAIN K Ot I25.2 OLD MYOCARDIAL INFARCTION 07/23/2017 EUGENE RIVERA ROMAIN K Ot I48.91 UNSPECIFIED ATRIAL FIBRILLATION 07/23/2017 EUGENE RIVERA ROMAIN K Ot I73.9 PERIPHERAL VASCULAR DISEASE, UNSPECIFIED 07/23/2017 EUGENE ROMAIN K Ot J44.9 CHRONIC OBSTRUCTIVE PULMONARY DISEASE, U 07/23/2017 EUGENE RIVERA ROMAIN K Ot K21.9 GASTRO-ESOPHAGEAL REFLUX DISEASE WITHOUT 07/23/2017 EUGENE ROMAIN K Ot R07.89 OTHER CHEST PAIN 07/23/2017 EUGENE ROMAIN K Ot 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 07/23/2017 EUGENE ROMAIN K Ot 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 07/23/2017 EUGENE ROMAIN K Ot 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 07/23/2017 EUGENE ROMAIN K Ot Z82.49 FAMILY HX OF ISCHEM HEART DIS AND OTH DI 07/23/2017 EUGENE RIVERA ROMAIN K Ot Z86.010 PERSONAL HISTORY OF COLONIC POLYPS 07/23/2017 ROMAIN KNIGHT DO Ot Z86.73 PRSNL HX OF TIA (TIA), AND CEREB INFRC W 07/23/2017 ROMAIN KNIGHT DO Ot Z87.19 PERSONAL HISTORY OF OTHER DISEASES OF TH 07/23/2017 ROMAIN KNIGHT DO Ot Z87.891 PERSONAL HISTORY OF NICOTINE DEPENDENCE 07/23/2017 ROMAIN KNIGHT DO Ot Z88.0 ALLERGY STATUS TO PENICILLIN 07/23/2017 ROMAIN KNIGHT DO Ot Z88.1 ALLERGY STATUS TO OTHER ANTIBIOTIC AGENT 07/23/2017 ROMAIN KNIGHT DO Ot Z88.6 ALLERGY STATUS TO ANALGESIC AGENT STATUS 07/23/2017 ROMAIN KNIGHT DO Ot Z88.8 ALLERGY STATUS TO OTH DRUG/MEDS/BIOL SUB 07/23/2017 ROMAIN KNIGHT DO Ot Z95.1 PRESENCE OF AORTOCORONARY BYPASS GRAFT 07/23/2017 ROMAIN KNIGHT DO Ot 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 IMPLANT 07/28/2017 LEONARDO SALGADO APRN Ot 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 07/28/2017 LEONARDO SALGADO APRN Ot E78.00 PURE HYPERCHOLESTEROLEMIA, UNSPECIFIED 07/28/2017 LEONARDO SALGADO APRN Ot F41 .9 ANXIETY DISORDER, UNSPECIFIED 07/28/2017 LEONARDO SALGADO APRN Ot G47.30 SLEEP APNEA, UNSPECIFIED 07/28/2017 LOENARDO SALGADO APRN Ot I10 ESSENTIAL (PRIMARY) HYPERTENSION 07/28/2017 LEONARDO SALGADO APRN Ot I25.10 ATHSCL HEART DISEASE OF [place] CORONARY 07/28/2017 LEONARDO SALGADO APRN Ot I25 [...] OR 07/28/2017 LEONARDO SALGADO APRN Ot 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 07/28/2017 LEONARDO SALGADO APRN Ot Z79 .4 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 07/28/2017 LEONARDO SALGADO APRN Ot Z79.82 [facility] (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 07/28/2017 LEONARDO SALGADO APRN Ot Z82.49 FAMILY HX OF ISCHEM HEART DIS AND OTH DI 07/28/2017 LEONARDO SALGADO APRN Ot Z86.73 PRSNL HX OF TIA (TIA), AND CEREB INFRC W 07/28/2017 LEONARDO SALGADO APRN Ot Z87.19 PERSONAL HISTORY OF OTHER DISEASES OF TH 07/28/2017 LEONARDO SALGADO APRN Ot Z87.891 PERSONAL HISTORY OF NICOTINE DEPENDENCE 07/28/2017 LEONARDO SALGADO APRN Ot Z88 .0 ALLERGY STATUS TO PENICILLIN 07/28/2017 LEONARDO SALGADO APRN Ot Z88 .1 ALLERGY STATUS TO OTHER ANTIBIOTIC AGENT 07/28/2017 LEONARDO ASLGADO APRN Ot Z88 .6 ALLERGY STATUS TO ANALGESIC AGENT STATUS 07/28/2017 LEONARDO SALGADO APRN Ot Z88 .8 ALLERGY STATUS TO OT DRUG/MEDS/BIOL SUB 07/28/2017 LEONARDO SALGADO APRN Ot 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 07/28/2017 LEONARDO SALGADO APRN Ot Z95 .5 PRESENCE OF CORONARY ANGIOPLASTY IMPLANT 07/29/2017 EUGENE DO, ROMAIN K Ot D64.9 ANEMIA, UNSPECIFIED 07/29/2017 EUGENE DO, ROMAIN K Ot 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 07/29/2017 EUGENE DO, ROMAIN K Ot E86.0 DEHYDRATION 07/29/2017 EUGENE DO, ROMAIN K Ot F41.9 ANXIETY DISORDER, UNSPECIFIED 07/29/2017 EUGENE DO, ROMAIN K Ot I12.9 HYPERTENSIVE CHRONIC KIDNEY DISEASE W ST 07/29/2017 EUGENE DO, ROMAIN K Ot I25.10 ATHSCL HEART DISEASE OF [place] CORONARY 07/29/2017 EUGENE DO, ROMAIN K Ot [...] BENIGN PROSTATIC HYPERPLASIA WITH LOWER 07/29/2017 EUGENE DO ROMAIN K Ot R42 DIZZINESS AND GIDDINESS 07/29/2017 EUGENE DO, ROMAIN K Ot R60.0 LOCALIZED EDEMA 07/29/2017 EUGENE DO ROMAIN K Ot Z79.01 [facility] (CURRENT) USE OF ANTICOAGULANT 07/29/2017 EUGENE DO ROMAIN K Ot Z79.4 [facility] (CURRENT) USE OF INSULIN 07/29/2017 EUGENE DO ROMAIN K Ot 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 07/29/2017 EUGENE ROMAIN K Ot Z86.73 PRSNL HX OF TIA (TIA), AND CEREB INFRC W 07/29/2017 EUGENE ROMAIN K Ot Z87.891 PERSONAL HISTORY OF NICOTINE DEPENDENCE 07/29/2017 EUGENE ROMAIN K Ot Z88.0 ALLERGY STATUS TO PENICILLIN 07/29/2017 EUGENE DO ROMAIN K Ot Z88.1 ALLERGY STATUS TO OTHER ANTIBIOTIC AGENT 07/29/2017 EUGENE DO ROMAIN K Ot Z88.6 ALLERGY STATUS TO ANALGESIC AGENT STATUS 07/29/2017 EUGENE DO ROMAIN K Ot Z88.8 ALLERGY STATUS TO OTH DRUG/MEDS/BIOL SUB 07/29/2017 EUGENE ROMAIN K Ot Z90.49 ACQUIRED ABSENCE OF OTHER SPECIFIED PART 07/29/2017 EUGENE DO ROMAIN K Ot Z95.1 PRESENCE OF AORTOCORONARY BYPASS GRAFT 07/29/2017 EUGENE DO ROMAIN K Ot 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 IMPLANT 07/29/2017 EUGENE DO, ROMAIN K Ot Z96.659 PRESENCE OF UNSPECIFIED ARTIFICIAL KNEE 07/29/2017 EUGENE DO, ROMAIN K Ot Z98.890 OTHER SPECIFIED POSTPROCEDURAL STATES 07/31/2017 EUGENE DO, ROMAIN K Ot D64.9 ANEMIA, UNSPECIFIED 07/31/2017 EUGENE DO, ROMAIN K Ot 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 07/31/2017 EUGENE DO, ROMAIN K Ot E86.0 DEHYDRATION 07/31/2017 EUGENE DO, ROMAIN K Ot F41.9 ANXIETY DISORDER, UNSPECIFIED 07/31/2017 EUGENE DO, ROMAIN K Ot I12.9 HYPERTENSIVE CHRONIC KIDNEY DISEASE W ST 07/31/2017 EUGENE DO, ROMAIN K Ot I25.10 ATHSCL HEART DISEASE OF [place] CORONARY 07/31/2017 EUGENE DO, ROMAIN K Ot I25.2 OLD MYOCARDIAL INFARCTION 07/31/2017 EUGENE DO, ROMAIN K Ot I48.91 UNSPECIFIED ATRIAL FIBRILLATION 07/31/2017 EUGENE DO, ROMAIN K Ot I73.9 PERIPHERAL VASCULAR DISEASE, UNSPECIFIED 07/31/2017 EUEGNE DO, ROMAIN K Ot I95.9 HYPOTENSION, UNSPECIFIED 07/31/2017 EUGENE DO, ROMAIN K Ot K21.9 GASTRO-ESOPHAGEAL REFLUX DISEASE WITHOUT 07/31/2017 EUGENE DO, ROMAIN K Ot N17.9 ACUTE KIDNEY FAILURE, UNSPECIFIED 07/31/2017 EUGENE DO, ROMAIN K Ot N18.9 CHRONIC KIDNEY DISEASE, UNSPECIFIED 07/31/2017 EUGENE DO, ROMAIN K Ot N40.1 BENIGN PROSTATIC HYPERPLASIA WITH LOWER 07/31/2017 EUGENE DO, ROMAIN K Ot R42 DIZZINESS AND GIDDINESS 07/31/2017 EUGENE DO, ROMAIN K Ot R60.0 LOCALIZED EDEMA 07/31/2017 EUGENE DO, ROMAIN K Ot 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 07/31/2017 EUGENE DO, ROMAIN K Ot 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 07/31/2017 EUGENE DO, ROMAIN K Ot 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 07/31/2017 EUGENE DO, ROMAIN K Ot Z86.73 PRSNL HX OF TIA (TIA), AND CEREB INFRC W 07/31/2017 ROMAIN KNIGHT DO Ot Z87.891 PERSONAL HISTORY OF NICOTINE DEPENDENCE 07/31/2017 ROMAIN KNIGHT DO Ot Z88.0 ALLERGY STATUS TO PENICILLIN 07/31/2017 ROMAIN KNIGHT DO Ot Z88.1 ALLERGY STATUS TO OTHER ANTIBIOTIC AGENT 07/31/2017 ROMAIN KNIGHT DO Ot Z88.6 ALLERGY STATUS TO ANALGESIC AGENT STATUS 07/31/2017 ROMAIN KNIGHT DO Ot Z88.8 ALLERGY STATUS TO OTH DRUG/MEDS/BIOL SUB 07/31/2017 ROMAIN KNIGHT DO Ot Z90.49 ACQUIRED ABSENCE OF OTHER SPECIFIED PART 07/31/2017 UEGENE RIVERA ROMAIN Suggs Ot Z95.1 PRESENCE OF AORTOCORONARY BYPASS GRAFT 07/31/2017 EUGENE RIVERA ROMAIN Es Ot 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 IMPLANT 07/31/2017 EUGENE RIVERA ROMAIN Suggs Ot Z96.659 PRESENCE OF UNSPECIFIED ARTIFICIAL KNEE 07/31/2017 EUGENE RIVERA ROMAIN Suggs Ot Z98.890 OTHER SPECIFIED POSTPROCEDURAL STATES 08/31/2017 CHARO SCHNEIDER MD Ot E11.9 TYPE 2 DIABETES MELLITUS WITHOUT COMPLIC 08/31/2017 CHARO SCHNEIDER MD Ot E78.00 PURE HYPERCHOLESTEROLEMIA, UNSPECIFIED 08/31/2017 CHARO SCHNEIDER MD Ot F41.9 ANXIETY DISORDER, UNSPECIFIED 08/31/2017 CHARO SCHNEIDER MD Ot G47.30 SLEEP APNEA, UNSPECIFIED 08/31/2017 CHARO SCHNEIDER MD Ot I10 ESSENTIAL (PRIMARY) HYPERTENSION 08/31/2017 CHARO SCHNEIDER MD Ot I25.10 ATHSCL HEART DISEASE OF [place] CORONARY 08/31/2017 CHARO SCHNEIDER MD Ot I25.2 OLD MYOCARDIAL INFARCTION 08/31/2017 CHARO SCHNEIDER MD Ot I48.91 UNSPECIFIED ATRIAL FIBRILLATION 08/31/2017 CHARO SCHNEIDER MD Ot I73.9 PERIPHERAL VASCULAR DISEASE, UNSPECIFIED 08/31/2017 CHARO SCHNEIDER MD Ot J44.9 CHRONIC OBSTRUCTIVE PULMONARY DISEASE, U 08/31/2017 CHARO SCHNEIDER MD Ot K21.9 GASTRO-ESOPHAGEAL REFLUX DISEASE WITHOUT 08/31/2017 CHARO SCHNEIDER MD, Ot N40.0 BENIGN PROSTATIC HYPERPLASIA WITHOUT LOW 08/31/2017 CHARO SCHNEIDER MD, Ot N43.3 HYDROCELE, UNSPECIFIED 08/31/2017 CHARO SCHNEIDER MD, Ot N50.3 CYST OF EPIDIDYMIS 08/31/2017 CHARO SCHNEIDER MD, Ot N50.812 LEFT TESTICULAR PAIN 08/31/2017 CHARO SCHNEIDER MD, Ot R60.0 LOCALIZED EDEMA 08/31/2017 CHARO SCHNEIDER MD, Ot 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 08/31/2017 CHARO SCHNEIDER MD, Ot Z79.82 [facility] (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 08/31/2017 CHARO SCHNEIDER MD, Ot Z82.49 FAMILY HX OF ISCHEM HEART DIS AND OTH DI 08/31/2017 CHARO SCHNEIDER MD, Ot Z86.73 PRSNL HX OF TIA (TIA), AND CEREB INFRC W 08/31/2017 CHARO SCHNEIDER MD, Ot Z87.19 PERSONAL HISTORY OF OTHER DISEASES OF TH 08/31/2017 CHAOR SCHNEIDER MD, Ot Z87.448 PERSONAL HISTORY OF [...] Z88.8 ALLERGY STATUS TO OT DRUG/MEDS/BIOL SUB 08/31/2017 CHARO SCHNEIDER MD, Ot Z95.1 PRESENCE OF AORTOCORONARY BYPASS GRAFT 08/31/2017 CHARO SCHNEIDER MD Ot Z95.5 PRESENCE OF [...] MD Ot I25.10 ATHSCL HEART DISEASE OF [place] CORONARY 09/06/2017 DEEDEE CUBA MD Ot 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 09/06/2017 DEEDEE CUBA MD Ot I48.91 UNSPECIFIED ATRIAL FIBRILLATION 09/06/2017 DEEDEE CUBA MD Ot I73 .9 PERIPHERAL VASCULAR DISEASE, UNSPECIFIED 09/06/2017 DEEDEE CUBA MD Ot J44 .9 CHRONIC OBSTRUCTIVE PULMONARY DISEASE, U 09/06/2017 DEEDEE CUBA MD Ot K21 .9 GASTRO-ESOPHAGEAL REFLUX DISEASE WITHOUT 09/06/2017 DEEDEE CUBA MD Ot K59.00 CONSTIPATION, UNSPECIFIED 09/06/2017 DEEDEE CUBA MD Ot R10.13 EPIGASTRIC PAIN 09/06/2017 DEEDEE CUBA MD Ot 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 09/06/2017 DEEDEE CUBA MD Ot Z79 .4 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 09/06/2017 DEEDEE CUBA MD Ot Z79.82 [facility] (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 09/06/2017 DEEDEE CUBA MD Ot Z82.49 FAMILY HX OF ISCHEM HEART DIS AND OTH DI 09/06/2017 DEEDEE CUBA MD Ot Z86.010 PERSONAL HISTORY OF COLONIC POLYPS 09/06/2017 DEEDEE CUBA MD Ot Z86.73 PRSNL HX OF TIA (TIA), AND CEREB INFRC W 09/06/2017 DEEDEE CUBA MD Ot Z87.19 PERSONAL HISTORY OF OTHER DISEASES OF TH 09/06/2017 DEEDEE CUBA MD Ot Z87.891 PERSONAL HISTORY OF NICOTINE DEPENDENCE 09/06/2017 DEEDEE CUBA MD Ot Z88 .0 ALLERGY STATUS TO PENICILLIN 09/06/2017 DEEDEE CUBA MD Ot Z88 .6 ALLERGY STATUS TO ANALGESIC AGENT STATUS 09/06/2017 DEEDEE CUBA MD, Ot Z88 .8 ALLERGY STATUS TO OTH DRUG/MEDS/BIOL SUB 09/06/2017 DEEDEE CUBA MD, Ot Z95 .1 PRESENCE OF AORTOCORONARY BYPASS [...] I10 ESSENTIAL (PRIMARY) HYPERTENSION 09/08/2017 DEEDEE CUBA MD Ot I25.10 ATHSCL HEART DISEASE OF [place] CORONARY 09/08/2017 DEEDEE CUBA MD Ot 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 09/08/2017 DEEDEE CUBA MD Ot I48.91 UNSPECIFIED ATRIAL FIBRILLATION 09/08/2017 DEEDEE CUBA MD Ot I73 .9 PERIPHERAL VASCULAR DISEASE, UNSPECIFIED 09/08/2017 DEEDEE CUBA MD Ot J44 .9 CHRONIC OBSTRUCTIVE PULMONARY DISEASE, U 09/08/2017 DEEDEE CUBA MD Ot K21 .9 GASTRO-ESOPHAGEAL REFLUX DISEASE WITHOUT 09/08/2017 DEEDEE CUBA MD Ot K59.00 CONSTIPATION, UNSPECIFIED 09/08/2017 DEEDEE CUBA MD Ot R10.13 EPIGASTRIC PAIN 09/08/2017 DEEDEE CUBA MD Ot Z79.01 [facility] (CURRENT) USE OF ANTICOAGULANT 09/08/2017 DEEDEE CUBA MD Ot Z79 .4 [facility] (CURRENT) USE OF INSULIN 09/08/2017 DEEDEE CUBA MD Ot 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 09/08/2017 DEEDEE CUBA MD Ot Z82.49 FAMILY HX OF ISCHEM HEART DIS AND OTH DI 09/08/2017 DEEDEE CUBA MD Ot Z86.010 PERSONAL HISTORY OF COLONIC POLYPS 09/08/2017 DEEDEE CUBA MD Ot Z86.73 PRSNL HX OF TIA (TIA), AND CEREB INFRC W 09/08/2017 DEEDEE CUBA MD Ot Z87.19 PERSONAL HISTORY OF OTHER DISEASES OF TH 09/08/2017 DEEDEE CUBA MD Ot Z87.891 PERSONAL HISTORY OF NICOTINE DEPENDENCE 09/08/2017 DEEDEE CUBA MD Ot Z88 .0 ALLERGY STATUS TO PENICILLIN 09/08/2017 DEEDEE CUBA MD, Ot Z88 .6 ALLERGY STATUS TO ANALGESIC AGENT STATUS 09/08/2017 DEEDEE CUBA MD Ot Z88 .8 ALLERGY STATUS TO OTH [...] APRN Ot I25.10 ATHSCL HEART DISEASE OF [place] CORONARY 10/12/2017 LEONARDO SALGADO APRN Ot I25 [...] PAIN 10/12/2017 LEONARDO SALGADO APRN Ot Z79.01 [facility] (CURRENT) USE OF ANTICOAGULANT 10/12/2017 LEONARDO SALGADO APRN Ot Z79 .4 [facility] (CURRENT) USE OF INSULIN 10/12/2017 LEONARDO SALGADO APRN Ot Z79.82 [facility] (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 10/12/2017 LEONARDO SALGADO [...] Z88 .0 ALLERGY STATUS TO PENICILLIN 10/12/2017 LEONARDO SALGADO APRN Ot Z88 .1 ALLERGY STATUS TO OTHER ANTIBIOTIC AGENT 10/12/2017 LEONARDO SALGADO APRN Ot Z88 .8 ALLERGY STATUS TO [facility] DRUG/MEDS/BIOL SUB 10/12/2017 LEONARDO SALGADO APRN Ot [...] APRN Ot I25.10 ATHSCL HEART DISEASE OF [place] CORONARY 10/15/2017 LEONARDO SALGADO APRN Ot I25 [...] PAIN 10/15/2017 LEONARDO SALGADO APRN Ot 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 10/15/2017 LEONARDO SALGADO APRN Ot Z79 .4 [facility] (CURRENT) USE OF INSULIN 10/15/2017 LEONARDO SALGADO APRN Ot Z79.82 [facility] (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 10/15/2017 LEONARDO SALGADO [...] APRN Ot I25.10 ATHSCL HEART DISEASE OF [place] CORONARY 11/11/2017 LEONARDO SALGADO APRN Ot I25 [...] COUGH 11/11/2017 LEONARDO SALGADO APRN Ot Z79.01 [facility] (CURRENT) USE OF ANTICOAGULANT 11/11/2017 LEONARDO SALGADO APRN Ot Z79 .4 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 11/11/2017 LEONARDO SALGADO APRN Ot Z79.82 [facility] (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 11/11/2017 LEONARDO SALGADO [...] .8 ALLERGY STATUS TO OT DRUG/MEDS/BIOL SUB 11/11/2017 LEONARDO SALGADO APRN Ot [...] APRN Ot I25.10 ATHSCL HEART DISEASE OF [place] CORONARY 11/13/2017 LEONARDO SALGADO APRN Ot I25 [...] COUGH 11/13/2017 LEONARDO SALGADO APRN Ot Z79.01 [facility] (CURRENT) USE OF ANTICOAGULANT 11/13/2017 LEONARDO SALGADO APRN Ot Z79 .4 [facility] (CURRENT) USE OF INSULIN 11/13/2017 LEONARDO SALGADO APRN Ot Z79.82 [facility] (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 11/13/2017 LEONARDO SALGADO [...] APRN Ot Z88 .8 ALLERGY STATUS TO [facility] DRUG/MEDS/BIOL SUB 11/13/2017 LEONARDO SALGADO APRN Ot 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 11/13/2017 LEONARDO SALGADO APRN Ot Z95 .5 PRESENCE OF CORONARY ANGIOPLASTY IMPLANT 11/17/2017 LEONARDO SALGADO APRN Ot 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 11/17/2017 LEONARDO SALGADO APRN Ot E78.00 PURE HYPERCHOLESTEROLEMIA, UNSPECIFIED 11/17/2017 LEONARDO SALGADO APRN Ot F41 .9 ANXIETY DISORDER, UNSPECIFIED 11/17/2017 LEONARDO SALGADO APRN Ot G47.30 SLEEP APNEA, UNSPECIFIED 11/17/2017 LEONARDO SALGADO APRN Ot I10 ESSENTIAL (PRIMARY) HYPERTENSION 11/17/2017 LEONARDO SALGADO APRN Ot I25.10 ATHSCL HEART DISEASE OF [place] CORONARY 11/17/2017 LEONARDO SALGADO APRN Ot I25 [...] COUGH 11/17/2017 LEONARDO SALGADO APRN Ot Z79.01 [facility] (CURRENT) USE OF ANTICOAGULANT 11/17/2017 LEONARDO SALGADO APRN Ot Z79 .4 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 11/17/2017 LEONARDO SALGADO APRN Ot Z79.82 [facility] (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 11/17/2017 LEONARDO SALGADO [...] .8 ALLERGY STATUS TO OT DRUG/MEDS/BIOL SUB 11/17/2017 LEONARDO SALGADO MECHANIC RECOVERY Ot 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 11/17/2017 LEONARDO SALGADO MECHANIC RECOVERY Ot Z95 .5 PRESENCE OF CORONARY ANGIOPLASTY IMPLANT 12/27/2017 Ot 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 12/27/2017 Ot E78.00 PUR E HYPERCHOLESTEROLEMIA, UNSPECIFIED 12/27/2017 Ot F41.9 ANXI ETY DISORDER, UNSPECIFIED 12/27/2017 Ot G47.30 SLE EP APNEA, UNSPECIFIED 12/27/2017 Ot I10 ESSENT IAL (PRIMARY) HYPERTENSION 12/27/2017 Ot I25.10 ATH SCL HEART DISEASE OF [place] CORONARY 12/27/2017 Ot I25.2 OLD MYOCARDIAL INFARCTION 12/27/2017 Ot I48.91 UNS PECIFIED ATRIAL FIBRILLATION 12/27/2017 Ot I73.9 RIO PHERAL VASCULAR DISEASE, UNSPECIFIED 12/27/2017 Ot J44.9 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 RONEL OBSTRUCTIVE PULMONARY DISEASE, U 12/27/2017 Ot K21.9 ALEJA RO-ESOPHAGEAL REFLUX DISEASE WITHOUT 12/27/2017 Ot R07.89 OTH ER CHEST PAIN 12/27/2017 Ot R10.11 RIG HT UPPER QUADRANT PAIN 12/27/2017 Ot Z79.01 CLAIRE G TERM (CURRENT) USE OF ANTICOAGULANT 12/27/2017 Ot 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 12/27/2017 Ot Z79.82 [...] 12/27/2017 Ot Z88.8 ROBBI RGY STATUS TO OTH DRUG/MEDS/BIOL SUB 12/27/2017 Ot Z95.1 PRES ENCE [...] Ot I25.10 ATH SCL HEART DISEASE OF [place] CORONARY 12/31/2017 Ot I25.2 OLD MYOCARDIAL INFARCTION 12/31/2017 Ot I48.91 UNS PECIFIED ATRIAL FIBRILLATION 12/31/2017 Ot I73.9 RIO PHERAL VASCULAR DISEASE, UNSPECIFIED 12/31/2017 Ot J44.9 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 RONEL OBSTRUCTIVE PULMONARY DISEASE, U 12/31/2017 Ot K21.9 ALEJA RO-ESOPHAGEAL REFLUX DISEASE WITHOUT 12/31/2017 Ot R07.89 OTH ER CHEST PAIN 12/31/2017 Ot R10.11 RIG HT UPPER QUADRANT PAIN 12/31/2017 Ot Z79.01 CLAIRE G TERM (CURRENT) USE OF ANTICOAGULANT 12/31/2017 Ot 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 12/31/2017 Ot Z79.82 [...] Ot I25.10 ATH SCL HEART DISEASE OF [place] CORONARY 01/02/2018 Ot I25.2 OLD MYOCARDIAL INFARCTION 01/02/2018 Ot I48.91 UNS PECIFIED ATRIAL FIBRILLATION 01/02/2018 Ot I73.9 RIO PHERAL VASCULAR DISEASE, UNSPECIFIED 01/02/2018 Ot J44.9 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 RONEL OBSTRUCTIVE PULMONARY DISEASE, U 01/02/2018 Ot K21.9 ALEJA RO-ESOPHAGEAL REFLUX DISEASE WITHOUT 01/02/2018 Ot R07.89 OT ER CHEST PAIN 01/02/2018 Ot R10.11 RIG HT UPPER QUADRANT PAIN 01/02/2018 Ot Z79.01 CLAIRE G TERM (CURRENT) USE OF ANTICOAGULANT 01/02/2018 Ot 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 01/02/2018 Ot Z79.82 [...] 01/02/2018 Ot Z88.8 ROBBI RGY STATUS TO [facility] DRUG/MEDS/BIOL SUB 01/02/2018 Ot Z95.1 PRES ENCE OF AORTOCORONARY BYPASS GRAFT 01/02/2018 Ot Z95.5 PRES ENCE OF CORONARY ANGIOPLASTY IMPLANT 01/02/2018 Ot Z98.61 COR ONARY ANGIOPLASTY STATUS 01/13/2018 JOSEE REICH Ot E11.9 TYPE 2 DIABETES MELLITUS WITHOUT COMPLIC 01/13/2018 JOSEE REICH Ot E78.00 PURE HYPERCHOLESTEROLEMIA, UNSPECIFIED 01/13/2018 JOSEE REICH Ot F41.9 ANXIETY DISORDER, UNSPECIFIED 01/13/2018 JOSEE REICH Ot G47.30 SLEEP APNEA, UNSPECIFIED 01/13/2018 JORGE LUIS REICHIS Ot I10 ESSENTIAL (PRIMARY) HYPERTENSION 01/13/2018 JORGE LUIS REICHIS Ot I25.10 ATHSCL HEART DISEASE OF [place] CORONARY 01/13/2018 JORGE LUIS REICHIS Ot I25.2 OLD MYOCARDIAL INFARCTION 01/13/2018 JOSEE RIECH Ot I48.91 UNSPECIFIED ATRIAL FIBRILLATION 01/13/2018 JOSEE REICH Ot I73.9 PERIPHERAL VASCULAR DISEASE, UNSPECIFIED 01/13/2018 JOSEE REICH Ot J44.9 CHRONIC OBSTRUCTIVE PULMONARY DISEASE, U 01/13/2018 JOSEE REICH Ot K21.9 GASTRO-ESOPHAGEAL REFLUX DISEASE WITHOUT 01/13/2018 JOSEE REICH Ot R05 COUGH 01/13/2018 JOSEE REICH Ot 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 01/13/2018 JOSEE REICH Ot 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 01/13/2018 JORGE LUIS REICHIS Ot 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 01/13/2018 JORGE LUIS REICHIS Ot Z82.49 FAMILY HX OF ISCHEM HEART DIS AND OTH DI 01/13/2018 JOSEE REICH Ot Z86.010 PERSONAL HISTORY OF COLONIC POLYPS 01/13/2018 JOSEE REICH Ot Z86.73 PRSNL HX OF TIA (TIA), AND CEREB INFRC W 01/13/2018 JORGE LUIS REICHIS Ot Z87.19 PERSONAL HISTORY OF OTHER DISEASES OF TH 01/13/2018 JOSEE REICH Ot Z87.891 PERSONAL HISTORY OF NICOTINE DEPENDENCE 01/13/2018 JOSEE REICH Ot Z88.0 ALLERGY STATUS TO PENICILLIN 01/13/2018 JORGE LUIS REICHIS Ot Z88.8 ALLERGY STATUS TO OTH DRUG/MEDS/BIOL SUB 01/13/2018 JOSEE REICH Ot Z95.1 PRESENCE OF AORTOCORONARY BYPASS GRAFT 01/13/2018 JORGE LUIS REICHIS Ot 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 IMPLANT 01/13/2018 JOSEE REICH Ot Z98.61 CORONARY ANGIOPLASTY STATUS 01/15/2018 JOSEE REICH Ot E11.9 TYPE 2 DIABETES MELLITUS WITHOUT COMPLIC 01/15/2018 JOSEE REICH Ot E78.00 PURE HYPERCHOLESTEROLEMIA, UNSPECIFIED 01/15/2018 JOSEE REICH Ot F41.9 ANXIETY DISORDER, UNSPECIFIED 01/15/2018 JOSEE REICH Ot G47.30 SLEEP APNEA, UNSPECIFIED 01/15/2018 JOSEE REICH Ot I10 ESSENTIAL (PRIMARY) HYPERTENSION 01/15/2018 JORGE LUIS REICHIS Ot I25.10 ATHSCL HEART DISEASE OF [place] CORONARY 01/15/2018 JOSEE REICH Ot I25.2 OLD MYOCARDIAL INFARCTION 01/15/2018 JOSEE REICH Ot I48.91 UNSPECIFIED ATRIAL FIBRILLATION 01/15/2018 JORGE LUIS REICHIS Ot I73.9 PERIPHERAL VASCULAR DISEASE, UNSPECIFIED 01/15/2018 JOSEE REICH Ot J44.9 CHRONIC OBSTRUCTIVE PULMONARY DISEASE, U 01/15/2018 JOSEE REICH Ot K21.9 GASTRO-ESOPHAGEAL REFLUX DISEASE WITHOUT 01/15/2018 JOSEE REICH Ot R05 COUGH 01/15/2018 JOSEE REICH Ot Z79.01 [facility] (CURRENT) USE OF ANTICOAGULANT 01/15/2018 JOSEE REICH Ot Z79.4 [facility] (CURRENT) USE OF INSULIN 01/15/2018 JORGE LUIS REICHIS Ot Z79.82 [facility] (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 01/15/2018 JORGE LUIS REICHIS Ot Z82.49 FAMILY HX OF [place] HEART [...] Ot Z88.0 ALLERGY STATUS TO PENICILLIN 01/15/2018 JOSEE REICH Ot Z88.8 ALLERGY STATUS TO OTH DRUG/MEDS/BIOL SUB 01/15/2018 JOSEE REICH Ot Z95.1 PRESENCE OF AORTOCORONARY BYPASS GRAFT 01/15/2018 JOSEE REICH Ot 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 IMPLANT 01/15/2018 JOSEE REICH Ot Z98.61 CORONARY ANGIOPLASTY STATUS 01/24/2018 EUGENE DO, ROMAIN K Ot D64.9 ANEMIA, UNSPECIFIED 01/24/2018 EUGENE DO, ROMAIN K Ot 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 01/24/2018 EUGENE DO, ROMAIN K Ot E11.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 W DIABETIC PERIPHERAL AN 01/24/2018 EUGENE DO, ROMAIN K Ot E78.00 PURE HYPERCHOLESTEROLEMIA, UNSPECIFIED 01/24/2018 EUGENE DO, ROMAIN K Ot F41.9 ANXIETY DISORDER, UNSPECIFIED 01/24/2018 EUGENE DO, ROMAIN K Ot G47.30 SLEEP APNEA, UNSPECIFIED 01/24/2018 EUGENE DO, ROMAIN K Ot I12.9 HYPERTENSIVE CHRONIC KIDNEY DISEASE W ST 01/24/2018 EUGENE DO, ROMAIN K Ot I25.10 ATHSCL HEART DISEASE OF [place] CORONARY 01/24/2018 EUGENE DO, ROMAIN K Ot I25.2 OLD MYOCARDIAL INFARCTION 01/24/2018 EUGENE DO, ROMAIN K Ot I48.91 UNSPECIFIED ATRIAL FIBRILLATION 01/24/2018 EUGENE DO, ROMAIN K Ot I73.9 PERIPHERAL VASCULAR DISEASE, UNSPECIFIED 01/24/2018 EUGENE DO, ROMAIN K Ot I95.1 ORTHOSTATIC HYPOTENSION 01/24/2018 EUGENE DO, ROMAIN K Ot J44.9 CHRONIC OBSTRUCTIVE PULMONARY DISEASE, U 01/24/2018 EUGENE DO, ROMAIN K Ot N18.9 CHRONIC KIDNEY DISEASE, UNSPECIFIED 01/24/2018 EUGENE DO, ROMAIN K Ot R03.1 NONSPECIFIC LOW BLOOD-PRESSURE READING 01/24/2018 EUGENE DO, ROMAIN K Ot Z79.01 [facility] (CURRENT) USE OF ANTICOAGULANT 01/24/2018 EUGENE DO, ROMAIN K Ot Z79.4 [facility] (CURRENT) USE OF INSULIN 01/24/2018 EUGENE DO, ROMAIN K Ot Z79.52 [facility] (CURRENT) USE OF SYSTEMIC STER 01/24/2018 EUGENE DO, ROMAIN K Ot Z79.82 [facility] (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 01/24/2018 EUGENE DO, ROMAIN K Ot Z82.49 FAMILY HX OF [place] HEART DIS AND OTH DI 01/24/2018 EUGENE DO, ROMAIN K Ot Z86.010 PERSONAL HISTORY OF COLONIC POLYPS 01/24/2018 EUGENE DO, ROMAIN K Ot Z86.73 PRSNL HX OF TIA (TIA), AND CEREB INFRC W 01/24/2018 EUGENE RIVERA ROMAIN K Ot Z87.19 PERSONAL HISTORY OF OTHER DISEASES OF TH 01/24/2018 EUGENE RIVERA ROMAIN Es Ot Z87.891 PERSONAL HISTORY OF NICOTINE DEPENDENCE 01/24/2018 EUGENE ROMANI K Ot Z88.0 ALLERGY STATUS TO PENICILLIN 01/24/2018 EUGENE GHANSHYAMA K Ot Z88.6 ALLERGY STATUS TO ANALGESIC AGENT STATUS 01/24/2018 EUGENE GHANSHYAMA Es Ot Z88.8 ALLERGY STATUS TO OTH DRUG/MEDS/BIOL SUB 01/24/2018 EUGENE RIVERA ROMAIN K Ot Z91.19 PATIENT'S NONCOMPLIANCE W OT MEDICAL TR 01/24/2018 EUGENE GHANSHYAMA Es Ot Z95.1 PRESENCE OF AORTOCORONARY BYPASS GRAFT 01/24/2018 ROMAIN KNIGHT DO Ot 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 IMPLANT 01/24/2018 ROMAIN KNIGHT DO Ot Z98.890 OTHER SPECIFIED POSTPROCEDURAL STATES 01/25/2018 SHARON DOUGHERTY, IRAJ C Ot D50. 8 OTHER IRON DEFICIENCY ANEMIAS 01/25/2018 SHARON DOUGHERTY, IRAJ Law Ot I95. 89 OTHER HYPOTENSION 01/25/2018 SHARON DOUGHERTY, IRAJ C Ot R53. 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 01/28/2018 GHANSHYAM KNIGHT DOA K Ot E11.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 W DIABETIC PERIPHERAL AN 01/28/2018 EUGENE RIVERA ROMAIN K Ot E78.00 PURE HYPERCHOLESTEROLEMIA, UNSPECIFIED 01/28/2018 EUGENE DO ROMAIN K Ot F41.9 ANXIETY DISORDER, UNSPECIFIED 01/28/2018 EUGENE DO ROMAIN K Ot G47.30 SLEEP APNEA, UNSPECIFIED 01/28/2018 EUGENE RIVERA ROMAIN K Ot I12.9 HYPERTENSIVE CHRONIC KIDNEY DISEASE W ST 01/28/2018 EUGENE DO ROMAIN K Ot I25.10 ATHSCL HEART DISEASE OF [place] CORONARY 01/28/2018 GHANSHYAM KNIGHT DOA K Ot I25.2 OLD MYOCARDIAL INFARCTION 01/28/2018 EUGENE DO, ROMAIN K Ot I48.91 UNSPECIFIED ATRIAL FIBRILLATION 01/28/2018 EUGENE RIVERAROMAIN Ot I73.9 PERIPHERAL VASCULAR DISEASE, UNSPECIFIED 01/28/2018 ROMAIN KNIGHT DO Ot I95.1 ORTHOSTATIC HYPOTENSION 01/28/2018 EUGENECristina RIVERA ROMAIN Es Ot J44.9 CHRONIC OBSTRUCTIVE PULMONARY DISEASE, U 01/28/2018 EUGENE RIVERA ROMAIN K Ot N18.9 CHRONIC KIDNEY DISEASE, UNSPECIFIED 01/28/2018 EUGENE RIVERA ROMAIN K Ot R03.1 NONSPECIFIC LOW BLOOD-PRESSURE READING 01/28/2018 ROMAIN KNIGHT DO Ot Z79.01 [facility] (CURRENT) USE OF ANTICOAGULANT 01/28/2018 ROMAIN KNIGHT DO Ot 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 01/28/2018 ROMAIN KNIGHT DO Ot 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 01/28/2018 EUGENE ROMAIN Ot Z79.82 [facility] (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 01/28/2018 ROMAIN KNIGHT DO Ot Z82.49 FAMILY HX OF ISCHEM HEART DIS AND OTH DI 01/28/2018 ROMAIN KNIGHT DO Ot Z86.010 PERSONAL HISTORY OF COLONIC POLYPS 01/28/2018 ROMAIN KNIGHT DO Ot Z86.73 PRSNL HX OF TIA (TIA), AND CEREB INFRC W 01/28/2018 ROMAIN KNIGHT DO Ot Z87.19 PERSONAL HISTORY OF OTHER DISEASES OF TH 01/28/2018 ROMAIN KNIGHT DO Ot Z87.891 PERSONAL HISTORY OF NICOTINE DEPENDENCE 01/28/2018 ROMAIN KNIGHT DO Ot Z88.0 ALLERGY STATUS TO PENICILLIN 01/28/2018 ROMAIN KNIGHT DO Ot Z88.6 ALLERGY STATUS TO ANALGESIC AGENT STATUS 01/28/2018 ROMAIN KNIGHT DO Ot Z88.8 ALLERGY STATUS TO OT DRUG/MEDS/BIOL SUB 01/28/2018 ROMAIN KNIGHT DO Ot Z91.19 PATIENT'S NONCOMPLIANCE W OT MEDICAL TR 01/28/2018 ROMAIN KNIGHT DO Ot Z95.1 PRESENCE OF AORTOCORONARY BYPASS GRAFT 01/28/2018 ROMAIN KNIGHT DO Ot 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 IMPLANT 01/28/2018 ROMAIN KNIGHT DO Ot Z98.890 OTHER SPECIFIED POSTPROCEDURAL STATES 01/31/2018 Ot R05 COUGH 02/05/2018 Ot R05 COUGH 02/15/2018 IRAJ HERRERA MD Ot M48. 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 9 DISORDER OF BONE, UNSPECIFIED 03/08/2018 BERNJOSEE AGUILA Ot E11.9 TYPE 2 DIABETES MELLITUS WITHOUT COMPLIC 03/08/2018 BERNJORGE LUIS AGUILAIS Ot E78.00 PURE HYPERCHOLESTEROLEMIA, UNSPECIFIED 03/08/2018 BERNJORGE LUIS AGUILAIS Ot F41.9 ANXIETY DISORDER, UNSPECIFIED 03/08/2018 BERNJORGE LUIS AGUILAIS Ot G47.30 SLEEP APNEA, UNSPECIFIED 03/08/2018 BERNJORGE LUIS AGUILAIS Ot I10 ESSENTIAL (PRIMARY) HYPERTENSION 03/08/2018 JORGE LUIS REICHIS Ot I25.10 ATHSCL HEART DISEASE OF [place] CORONARY 03/08/2018 JORGE LUIS REICHIS Ot I25.2 OLD MYOCARDIAL INFARCTION 03/08/2018 JORGE LUIS REICHIS Ot I48.91 UNSPECIFIED ATRIAL FIBRILLATION 03/08/2018 JORGE LUIS REICHIS Ot I73.9 PERIPHERAL VASCULAR DISEASE, UNSPECIFIED 03/08/2018 JORGE LUIS REICHIS Ot I95.1 ORTHOSTATIC HYPOTENSION 03/08/2018 OJSEE RIECH Ot J44.9 CHRONIC OBSTRUCTIVE PULMONARY DISEASE, U 03/08/2018 JORGE LUIS REICHIS Ot R03.1 NONSPECIFIC LOW BLOOD-PRESSURE READING 03/08/2018 JOSEE REICH Ot 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 03/08/2018 JORGE LUIS REICHIS Ot Z79.4 [facility] (CURRENT) USE OF INSULIN 03/08/2018 JORGE LUIS REICHIS Ot Z79.82 [facility] (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 03/08/2018 JORGE LUIS REICHIS Ot Z82.49 FAMILY HX OF ISCHE[place] HEART DIS AND OTH DI 03/08/2018 JORGE LUIS REICHIS Ot Z86.010 PERSONAL HISTORY OF COLONIC POLYPS 03/08/2018 JORGE LUIS REICHIS Ot Z86.73 PRSNL HX OF TIA (TIA), AND CEREB INFRC W 03/08/2018 JORGE LUIS REICHIS Ot Z87.19 PERSONAL HISTORY OF OTHER DISEASES OF TH 03/08/2018 JOSEE REICH Ot Z87.448 PERSONAL HISTORY OF OTHER DISEASES OF UR 03/08/2018 JORGE LUIS REICHIS Ot Z87.891 PERSONAL HISTORY OF NICOTINE DEPENDENCE 03/08/2018 JORGE LUIS REICHIS Ot Z88.0 ALLERGY STATUS TO PENICILLIN 03/08/2018 DAMIR JOSEE Ot Z88.6 ALLERGY STATUS TO ANALGESIC AGENT STATUS 03/08/2018 JORGE LUIS REICHIS Ot Z88.8 ALLERGY STATUS TO OTH DRUG/MEDS/BIOL SUB 03/08/2018 JORGE LUIS REICHIS Ot Z95.1 PRESENCE OF AORTOCORONARY BYPASS GRAFT 03/08/2018 JORGE LUIS REICHIS Ot 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 IMPLANT 03/08/2018 JORGE LUIS REICHIS Ot Z98.890 OTHER SPECIFIED POSTPROCEDURAL STATES 03/12/2018 JORGE LUIS REICHIS Ot E11.9 TYPE 2 DIABETES MELLITUS WITHOUT COMPLIC 03/12/2018 DAMIR JOSEE Ot E78.00 PURE HYPERCHOLESTEROLEMIA, UNSPECIFIED 03/12/2018 JORGE LUIS REICHIS Ot F41.9 ANXIETY DISORDER, UNSPECIFIED 03/12/2018 DAMIR JOSEE Ot G47.30 SLEEP APNEA, UNSPECIFIED 03/12/2018 DAMIR JOSEE Ot I10 ESSENTIAL (PRIMARY) HYPERTENSION 03/12/2018 DAMIR JOSEE Ot I25.10 ATHSCL HEART DISEASE OF [place] CORONARY 03/12/2018 DAMIR JOSEE Ot I25.2 OLD MYOCARDIAL INFARCTION 03/12/2018 DAMIR JOSEE Ot I48.91 UNSPECIFIED ATRIAL FIBRILLATION 03/12/2018 JORGE LUIS REICHIS Ot I73.9 PERIPHERAL VASCULAR DISEASE, UNSPECIFIED 03/12/2018 JORGE LUIS REICHIS Ot I95.1 ORTHOSTATIC HYPOTENSION 03/12/2018 DAMIR JOSEE Ot J44.9 CHRONIC OBSTRUCTIVE PULMONARY DISEASE, U 03/12/2018 JORGE LUIS REICHIS Ot R03.1 NONSPECIFIC LOW BLOOD-PRESSURE READING 03/12/2018 DAMIR JOSEE Ot 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 03/12/2018 DAMIR JOSEE Ot Z79.4 [facility] (CURRENT) USE OF INSULIN 03/12/2018 DAMIR JOSEE Ot 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 03/12/2018 DAMIR JOSEE Ot Z82.49 FAMILY HX OF ISCHE[place] HEART DIS AND OTH DI 03/12/2018 JORGE LUIS REICHIS Ot Z86.010 PERSONAL HISTORY OF COLONIC POLYPS 03/12/2018 JORGE LUIS REICHIS Ot Z86.73 PRSNL HX OF TIA (TIA), AND CEREB INFRC W 03/12/2018 JORGE LUIS REICHIS Ot Z87.19 PERSONAL HISTORY OF OTHER DISEASES OF TH 03/12/2018 JORGE LUIS REICHIS Ot Z87.448 PERSONAL HISTORY OF OTHER DISEASES OF UR 03/12/2018 JORGE LUIS REICHIS Ot Z87.891 PERSONAL HISTORY OF NICOTINE DEPENDENCE 03/12/2018 BERNJORGE LUIS AGUILAIS Ot Z88.0 ALLERGY STATUS TO PENICILLIN 03/12/2018 BERNAYLAJORGE LUISIS Ot Z88.6 ALLERGY STATUS TO ANALGESIC AGENT STATUS 03/12/2018 DERECKAYLAJORGE LUISIS Ot Z88.8 ALLERGY STATUS TO OTH DRUG/MEDS/BIOL SUB 03/12/2018 JORGE LUIS REICHIS Ot Z95.1 PRESENCE OF AORTOCORONARY BYPASS GRAFT 03/12/2018 JORGE LUIS REICHIS Ot 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 IMPLANT 03/12/2018 DAMIR JOSEE Ot Z98.890 OTHER SPECIFIED POSTPROCEDURAL STATES 03/12/2018 [...] APRN Ot I25.10 ATHSCL HEART DISEASE OF [place] CORONARY 03/17/2018 LEONARDO SALGADO APRN Ot I25 [...] 03/17/2018 LEONARDO SALGADO APRN Ot Z79 .4 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 03/17/2018 LEONARDO SALGADO [...] ALLERGY STATUS TO OTH DRUG/MEDS/BIOL SUB 03/17/2018 LEONARDO SALGADO APRN Ot 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 03/19/2018 LEONARDO SALGADO APRN Ot E11 .9 TYPE 2 DIABETES MELLITUS WITHOUT COMPLIC 03/19/2018 LEONARDO SALGADO APRN Ot E78.00 PURE HYPERCHOLESTEROLEMIA, UNSPECIFIED 03/19/2018 LEONARDO SALGADO APRN Ot F41 .9 ANXIETY DISORDER, UNSPECIFIED 03/19/2018 LEONARDO SALGADO APRN Ot I10 ESSENTIAL (PRIMARY) HYPERTENSION 03/19/2018 LEONARDO SALGADO APRN Ot I25.10 ATHSCL HEART DISEASE OF [place] CORONARY 03/19/2018 LEONARDO SALGADO APRN Ot I25 [...] PROSTATIC HYPERPLASIA WITH LOWER 03/19/2018 LEONARDO SALGADO MECHANIC RECOVERY Ot Z79 .4 [facility] (CURRENT) USE OF INSULIN 03/19/2018 LEONARDO SALGADO [...] .1 PRESENCE OF AORTOCORONARY BYPASS GRAFT 05/21/2018 MATTEO CASTILLO MD Ot I12 .9 HYPERTENSIVE CHRONIC KIDNEY DISEASE W ST 05/21/2018 MATTEO CASTILLO MD Ot N18 .3 CHRONIC KIDNEY DISEASE, STAGE 3 (MODERAT 05/23/2018 IRAJ HERRERA MD Ot M47.814 SPONDYLOSIS W/O MYELOPATHY OR RADICULOPA 05/23/2018 IRAJ HERRERA MD, Ot M47.816 SPONDYLOSIS W/O MYELOPATHY OR RADICULOPA 05/23/2018 IRAJ HERRERA MD Ot Z87. 81 PERSONAL HISTORY OF (HEALED) TRAUMATIC F 05/28/2018 IRAJ HERRERA MD Ot M47.814 SPONDYLOSIS W/O MYELOPATHY OR RADICULOPA 05/28/2018 IRAJ HERRERA MD Ot M47.816 SPONDYLOSIS W/O MYELOPATHY OR RADICULOPA 05/28/2018 IRAJ HERRERA MD Ot Z87. 81 PERSONAL HISTORY OF (HEALED) TRAUMATIC F 06/13/2018 MATTEO CASTILLO MD Ot I12 .9 HYPERTENSIVE CHRONIC KIDNEY DISEASE W ST 06/13/2018 MATTEO CASTILLO MD Ot N18 .3 CHRONIC KIDNEY DISEASE, STAGE 3 (MODERAT 06/13/2018 IRAJ HERRERA MD, Ot M47.814 SPONDYLOSIS W/O MYELOPATHY OR RADICULOPA 06/13/2018 IRAJ HERRERA MD Ot M47.816 SPONDYLOSIS W/O MYELOPATHY OR RADICULOPA 06/13/2018 SHARON DOUGHERTY, IRAJ Law Ot Z87. 81 PERSONAL HISTORY OF (HEALED) TRAUMATIC F 06/23/2018 JALIL DOUGHERTY, FAMILIA Pacheco Ot E11. 9 TYPE 2 DIABETES MELLITUS WITHOUT COMPLIC 06/23/2018 JALIL DOUGHERTY, FAMILIA Pacheco Ot E78. 00 PURE HYPERCHOLESTEROLEMIA, UNSPECIFIED 06/23/2018 JALIL DOUGHERTY, FAMILIA Pacheco Ot F41. 9 ANXIETY DISORDER, UNSPECIFIED 06/23/2018 JALIL DOUGHERTY, FAMILIA Pacheco Ot G47. 30 SLEEP APNEA, UNSPECIFIED 06/23/2018 JALIL DOUGHERTY, FAMILIA Pacheco Ot I10 ESSENTIAL (PRIMARY) HYPERTENSION 06/23/2018 JALIL DOUGHERTY, FAMILIA Pacheco Ot I25. 10 ATHSCL HEART DISEASE OF [place] CORONARY 06/23/2018 JALIL DOUGHERTY, FAMILIA Pacheco Ot I25. 2 OLD MYOCARDIAL INFARCTION 06/23/2018 JALIL DOUGHERTY, FAMILIA Pacheco Ot I48. 91 UNSPECIFIED ATRIAL FIBRILLATION 06/23/2018 JALIL DOUGHERTY, FAMILIA Pacheco Ot I73. 9 PERIPHERAL VASCULAR DISEASE, UNSPECIFIED 06/23/2018 JALIL DOUGHERTY, FAMILIA Pacheco Ot J44. 9 CHRONIC OBSTRUCTIVE PULMONARY DISEASE, U 06/23/2018 JALIL DOUGHERTY, FAMILIA Pacheco Ot K21. 9 GASTRO-ESOPHAGEAL REFLUX DISEASE WITHOUT 06/23/2018 JALIL DOUGHERTY, FAMILIA Pacheco Ot R51 HEADACHE 06/23/2018 JALIL DOUGHERTY, FAMILIA Pacheco Ot Z79. 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 4 [facility] (CURRENT) USE OF INSULIN 06/23/2018 FAMILIA JIMENES MD Ot Z82. 49 FAMILY HX OF ISCHEM HEART DIS AND OTH DI 06/23/2018 FAMILIA JIMENES MD Ot Z86.010 PERSONAL HISTORY OF COLONIC POLYPS 06/23/2018 JALIL DOUGHERTY, FAMILIA Pacheco Ot Z86. 73 PRSNL HX OF TIA (TIA), AND CEREB INFRC W 06/23/2018 FAMILIA JIMENES MD Ot Z87.448 PERSONAL HISTORY OF OTHER DISEASES OF UR 06/23/2018 FAMILIA JIMENES MD Ot Z87.891 PERSONAL HISTORY OF NICOTINE DEPENDENCE 06/23/2018 FAMILIA JIMENES MD Ot Z88. 0 ALLERGY STATUS TO PENICILLIN 06/23/2018 FAMILIA JIMENES MD Ot Z88. 6 ALLERGY STATUS TO ANALGESIC AGENT STATUS 06/23/2018 JALIL DOUGHERTY, FAMILIA Pacheco Ot Z88. 8 ALLERGY STATUS TO OT DRUG/MEDS/BIOL SUB 06/23/2018 JALIL DOUGHERTY, FAMILIA Pacheco Ot Z95. 1 PRESENCE OF AORTOCORONARY BYPASS GRAFT 06/23/2018 JALIL DOUGHERTY, FAMILIA Pacheco Ot Z95. 5 PRESENCE OF CORONARY ANGIOPLASTY IMPLANT 06/23/2018 JALIL DOUGHERTY, FAMILIA Pacheco Ot Z98. 61 CORONARY ANGIOPLASTY STATUS 06/23/2018 JALIL DOUGHERTY, FAMILIA Pacheco Ot Z98.890 OTHER SPECIFIED POSTPROCEDURAL STATES 06/25/2018 JALIL DOUGHERTY, FAMILIA Pacheco Ot E11. 9 TYPE 2 DIABETES MELLITUS WITHOUT COMPLIC 06/25/2018 JALIL DOUGHERTY, FAMILIA Pacheco Ot E78. 00 PURE HYPERCHOLESTEROLEMIA, UNSPECIFIED 06/25/2018 JALIL DOUGHERTY, FAMILIA Pacheco Ot F41. 9 ANXIETY DISORDER, UNSPECIFIED 06/25/2018 JALIL DOUGHERTY, FAMILIA Pacheco Ot G47. 30 SLEEP APNEA, UNSPECIFIED 06/25/2018 JALIL DOUGHERTY, FAMILIA Pacheco Ot I10 ESSENTIAL (PRIMARY) HYPERTENSION 06/25/2018 JALIL DOUGHERTY, FAMILIA Pacheco Ot I25. 10 ATHSCL HEART DISEASE OF [place] CORONARY 06/25/2018 JALIL DOUGHERTY, FAMILIA Pacheco Ot I25. 2 OLD MYOCARDIAL INFARCTION 06/25/2018 JALIL DOUGHERTY, FAMILIA Pacheco Ot I48. 91 UNSPECIFIED ATRIAL FIBRILLATION 06/25/2018 JALIL DOUGHERTY, FAMILIA Pacheco Ot I73. 9 PERIPHERAL VASCULAR DISEASE, UNSPECIFIED 06/25/2018 FAMILIA JIMENES MD Ot J44. 9 CHRONIC OBSTRUCTIVE PULMONARY DISEASE, U 06/25/2018 JALIL DOUGHERTY, FAMILIA Pacheco Ot K21. 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 4 [facility] (CURRENT) USE OF INSULIN 06/25/2018 JALIL DOUGHERTY, FAMILIA Pacheco Ot Z82. 49 FAMILY HX OF ISCHEM HEART DIS AND OTH DI 06/25/2018 FAMILIA JIMENES MD Ot Z86.010 PERSONAL HISTORY OF COLONIC POLYPS 06/25/2018 FAMILIA JIMENES MD Ot Z86. 73 PRSNL HX OF TIA (TIA), AND CEREB INFRC W 06/25/2018 FAMILIA JIMENES MD Ot Z87.448 PERSONAL HISTORY OF OTHER DISEASES OF UR 06/25/2018 FAMILIA JIMENES MD Ot Z87.891 PERSONAL HISTORY OF NICOTINE DEPENDENCE 06/25/2018 FAMILIA JIMENES MD Ot Z88. 0 ALLERGY STATUS TO PENICILLIN 06/25/2018 FAMILIA JIMENES MD Ot Z88. 6 ALLERGY STATUS TO ANALGESIC AGENT STATUS 06/25/2018 FAMILIA JIMENES MD Ot Z88. 8 ALLERGY STATUS TO OTH DRUG/MEDS/BIOL SUB 06/25/2018 FAMILIA JIMENES MD Ot Z95. 1 PRESENCE OF AORTOCORONARY BYPASS GRAFT 06/25/2018 FAMILIA JIMENES MD Ot Z95. 5 PRESENCE OF CORONARY ANGIOPLASTY IMPLANT 06/25/2018 FAMILIA JIMENES MD Ot Z98. 61 CORONARY ANGIOPLASTY STATUS 06/25/2018 FAMILIA JIMENES MD Ot Z98.890 OTHER SPECIFIED POSTPROCEDURAL STATES 07/05/2018 SHARON DOUGHERTY, IRAJ Law Ot D50. 8 OTHER IRON DEFICIENCY ANEMIAS 07/05/2018 IRAJ HERRERA MD Ot I95. 89 OTHER HYPOTENSION 07/05/2018 IRAJ HERRERA MD Ot R53. 83 OTHER FATIGUE 07/18/2018 BISI GARCIA MD Ot E78. 5 HYPERLIPIDEMIA, UNSPECIFIED 07/18/2018 BISI GARCIA MD Ot I07. 1 RHEUMATIC TRICUSPID INSUFFICIENCY 07/18/2018 BISI GARCIA MD Ot I25. 10 ATHSCL HEART DISEASE OF [place] CORONARY 07/18/2018 BISI GARCIA MD Ot I48. 0 PAROXYSMAL ATRIAL FIBRILLATION 07/18/2018 BISI GARCIA MD Ot I73. 9 PERIPHERAL VASCULAR DISEASE, UNSPECIFIED 07/18/2018 BISI GARCIA MD Ot K21. 9 GASTRO-ESOPHAGEAL REFLUX DISEASE WITHOUT 07/24/2018 RODOLFO CUELLO MD Ot E11.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 W DIABETIC PERIPHERAL AN 07/24/2018 KHUSHBOO DOUGHERTY, RODOLFO Mendieta Ot E78.00 PURE HYPERCHOLESTEROLEMIA, UNSPECIFIED 07/24/2018 RODOLFO CUELLO MD Ot F41.9 ANXIETY DISORDER, UNSPECIFIED 07/24/2018 RODOLFO CUELLO MD, Ot G47.30 SLEEP APNEA, UNSPECIFIED 07/24/2018 RODOLFO CUELLO MD Ot I10 ESSENTIAL (PRIMARY) HYPERTENSION 07/24/2018 RODOLFO CUELLO MD Ot I25.10 ATHSCL HEART DISEASE OF [place] CORONARY 07/24/2018 RODOLFO CUELLO MD, Ot I25.2 OLD MYOCARDIAL INFARCTION 07/24/2018 RODOLFO CUELLO MD Ot I48.0 PAROXYSMAL ATRIAL FIBRILLATION 07/24/2018 RODOLFO CUELLO MD, Ot I73.9 PERIPHERAL VASCULAR DISEASE, UNSPECIFIED 07/24/2018 RODOLFO CUELLO MD, Ot J44.9 CHRONIC OBSTRUCTIVE PULMONARY DISEASE, U 07/24/2018 RODOLFO CUELLO MD, Ot K21.9 GASTRO-ESOPHAGEAL REFLUX DISEASE WITHOUT 07/24/2018 RODOLFO CUELLO MD, Ot R10.13 EPIGASTRIC PAIN 07/24/2018 RODOLFO CUELLO MD, Ot Z79.01 [facility] (CURRENT) USE OF ANTICOAGULANT 07/24/2018 RODOLFO CUELLO MD, Ot 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 07/24/2018 RODOLFO CUELLO MD, Ot Z80.3 FAMILY HISTORY OF MALIGNANT NEOPLASM OF 07/24/2018 RODOLFO CUELLO MD, Ot Z82.49 FAMILY HX OF ISCHEM HEART DIS AND OTH DI 07/24/2018 RODOLFO CUELLO MD, Ot Z86.010 PERSONAL HISTORY OF COLONIC POLYPS 07/24/2018 RODOLFO CUELLO MD Ot Z86.73 PRSNL HX OF TIA (TIA), AND CEREB INFRC W 07/24/2018 RODOLFO CUELLO MD, Ot Z87.19 PERSONAL HISTORY OF OTHER DISEASES OF TH 07/24/2018 RODOLFO CUELLO MD Ot Z87.448 PERSONAL HISTORY OF OTHER DISEASES OF UR 07/24/2018 RODOLFO CUELLO MD Ot Z87.891 PERSONAL HISTORY OF NICOTINE DEPENDENCE 07/24/2018 RODOLFO CUELLO MD Ot Z88.0 ALLERGY STATUS TO PENICILLIN 07/24/2018 RODOLFO CUELLO MD, Ot Z88.8 ALLERGY STATUS TO [facility] DRUG/MEDS/BIOL SUB 07/24/2018 RODOLFO CUELLO MD, Ot Z95.1 PRESENCE OF AORTOCORONARY BYPASS GRAFT 07/24/2018 RODOLFO CUELLO MD, Ot 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 IMPLANT 07/24/2018 RODOLFO CUELLO MD, Ot Z98.890 OTHER SPECIFIED POSTPROCEDURAL STATES 07/26/2018 RODOLFO CUELLO MD Ot E11.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 W DIABETIC PERIPHERAL AN 07/26/2018 RODOLFO CUELLO MD Ot E78.00 PURE HYPERCHOLESTEROLEMIA, UNSPECIFIED 07/26/2018 RODOLFO CUELLO MD, Ot F41.9 ANXIETY DISORDER, UNSPECIFIED 07/26/2018 RODOLFO CUELLO MD, Ot G47.30 SLEEP APNEA, UNSPECIFIED 07/26/2018 RODOLFO CUELLO MD Ot I10 ESSENTIAL (PRIMARY) HYPERTENSION 07/26/2018 RODOLFO CUELLO MD, Ot I25.10 ATHSCL HEART DISEASE OF [place] CORONARY 07/26/2018 RODOLFO CUELLO MD, Ot I25.2 OLD MYOCARDIAL INFARCTION 07/26/2018 RODOLFO CUELLO MD, Ot I48.0 PAROXYSMAL ATRIAL FIBRILLATION 07/26/2018 RODOLFO CUELLO MD, Ot I73.9 PERIPHERAL VASCULAR DISEASE, UNSPECIFIED 07/26/2018 RODOLFO CUELLO MD, Ot J44.9 CHRONIC OBSTRUCTIVE PULMONARY DISEASE, U 07/26/2018 RODOLFO CUELLO MD, Ot K21.9 GASTRO-ESOPHAGEAL REFLUX DISEASE WITHOUT 07/26/2018 RODOLFO CUELLO MD Ot R10.13 EPIGASTRIC PAIN 07/26/2018 RODOLFO CUELLO MD, Ot Z79.01 [facility] (CURRENT) USE OF ANTICOAGULANT 07/26/2018 RODOLFO CUELLO MD, Ot Z79.4 [facility] (CURRENT) USE OF INSULIN 07/26/2018 RODOLFO CUELLO MD, Ot Z80.3 FAMILY HISTORY OF MALIGNANT NEOPLASM OF 07/26/2018 RODOLFO CUELLO MD Ot Z82.49 FAMILY HX OF ISCHEM HEART DIS AND OTH DI 07/26/2018 RODOLFO CUELLO MD, Ot Z86.010 PERSONAL HISTORY OF COLONIC POLYPS 07/26/2018 RODOLFO CUELLO MD Ot Z86.73 PRSNL HX OF TIA (TIA), AND CEREB INFRC W 07/26/2018 RODOLFO CUELLO MD, Ot Z87.19 PERSONAL HISTORY OF OTHER DISEASES OF TH 07/26/2018 RODOLFO CUELLO MD Ot Z87.448 PERSONAL HISTORY OF OTHER DISEASES OF UR 07/26/2018 RODOLFO CUELLO MD, Ot Z87.891 PERSONAL HISTORY OF NICOTINE DEPENDENCE 07/26/2018 RODOLFO CUELLO MD, Ot Z88.0 ALLERGY STATUS TO PENICILLIN 07/26/2018 RODOLFO CUELLO MD Ot Z88.8 ALLERGY STATUS TO OTH DRUG/MEDS/BIOL SUB 07/26/2018 RODOLFO CUELLO MD Ot Z95.1 PRESENCE OF AORTOCORONARY BYPASS GRAFT 07/26/2018 RODOLFO CUELLO MD Ot 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 IMPLANT 07/26/2018 RODOLFO CUELLO MD Ot Z98.890 OTHER SPECIFIED POSTPROCEDURAL STATES 07/31/2018 GHANSHYAM KNIGHT DOA K Ot E11.43 TYPE 2 DIABETES W DIABETIC AUTONOMIC (PO 07/31/2018 GHANSHYAM KNIGHT DOA K Ot E11.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 W DIABETIC PERIPHERAL AN 07/31/2018 ROMAIN KNIGHT DO K Ot E78.00 PURE HYPERCHOLESTEROLEMIA, UNSPECIFIED 07/31/2018 GHANSHYAM KNIGHT DOA K Ot F41.9 ANXIETY DISORDER, UNSPECIFIED 07/31/2018 GHANSHYAM KNIGHT DOA K Ot G47.30 SLEEP APNEA, UNSPECIFIED 07/31/2018 EUGENE RIVERA ROMAIN K Ot I10 ESSENTIAL (PRIMARY) HYPERTENSION 07/31/2018 EUGENE RIVERA ROMAIN K Ot I25.10 ATHSCL HEART DISEASE OF [place] CORONARY 07/31/2018 GHANSHYAM KNIGHT DOA K Ot I25.2 OLD MYOCARDIAL INFARCTION 07/31/2018 ROMAIN KNIGHT DO K Ot I48.91 UNSPECIFIED ATRIAL FIBRILLATION 07/31/2018 EUGENE RIVERAROMAIN Ot I73.9 PERIPHERAL VASCULAR DISEASE, UNSPECIFIED 07/31/2018 EUGENE ROMAIN RIVERA Ot J44.9 CHRONIC OBSTRUCTIVE PULMONARY DISEASE, U 07/31/2018 EUGENE ROMAIN RIVERA Ot K21.9 GASTRO-ESOPHAGEAL REFLUX DISEASE WITHOUT 07/31/2018 EUGENE ROMAIN RIVERA Ot K31.84 GASTROPARESIS 07/31/2018 EUGENE ROMAIN RIVERA Ot K31.89 OTHER DISEASES OF STOMACH AND DUODENUM 07/31/2018 EUGENE ROMAIN Ot R10.9 UNSPECIFIED ABDOMINAL PAIN 07/31/2018 EUGENE ROMAIN Ot 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 07/31/2018 EUGENE ROMAIN RIVERA Ot Z79.4 [facility] (CURRENT) USE OF INSULIN 07/31/2018 EUGENE ROMAIN RIVERA Ot Z82.49 FAMILY HX OF ISCHEM HEART DIS AND OTH DI 07/31/2018 ROMAIN KINGHT DO Ot Z86.010 PERSONAL HISTORY OF COLONIC POLYPS 07/31/2018 EUGENE ROMAIN RIVERA Ot Z86.73 PRSNL HX OF TIA (TIA), AND CEREB INFRC W 07/31/2018 ROMAIN KNIGHT DO Ot Z87.19 PERSONAL HISTORY OF OTHER DISEASES OF TH 07/31/2018 EUGENE ROMAIN RIVERA Ot Z87.448 PERSONAL HISTORY OF OTHER DISEASES OF UR 07/31/2018 EUGENE ROMAIN RIVERA Ot Z87.891 PERSONAL HISTORY OF NICOTINE DEPENDENCE 07/31/2018 EUGENE ROMAIN RIVERA Ot Z88.0 ALLERGY STATUS TO PENICILLIN 07/31/2018 EUGENE ROMAIN RIVERA Ot Z88.1 ALLERGY STATUS TO OTHER ANTIBIOTIC AGENT 07/31/2018 EUGENE ROMAIN RIVERA Ot Z88.8 ALLERGY STATUS TO OTH DRUG/MEDS/BIOL SUB 07/31/2018 ROMAIN KNIGHT DO Ot Z95.1 PRESENCE OF AORTOCORONARY BYPASS GRAFT 07/31/2018 ROMAIN KNIGHT DO Ot 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 IMPLANT 07/31/2018 EUGENE ROMAIN RIVERA Ot Z98.890 OTHER SPECIFIED POSTPROCEDURAL STATES 08/03/2018 ROMAIN KNIGHT DO Ot E11.43 TYPE 2 DIABETES W DIABETIC AUTONOMIC (PO 08/03/2018 EUGENE DO ROMAIN K Ot E11.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 W DIABETIC PERIPHERAL AN 08/03/2018 EUGENE DOGHANSHYAMA K Ot E78.00 PURE HYPERCHOLESTEROLEMIA, UNSPECIFIED 08/03/2018 EUGENE DO, ROMAIN K Ot F41.9 ANXIETY DISORDER, UNSPECIFIED 08/03/2018 EUGENE DO ROMAIN K Ot G47.30 SLEEP APNEA, UNSPECIFIED 08/03/2018 EUGENE DO ROMAIN K Ot I10 ESSENTIAL (PRIMARY) HYPERTENSION 08/03/2018 EUGENE DO ROMAIN K Ot I25.10 ATHSCL HEART DISEASE OF [place] CORONARY 08/03/2018 EUGENE DO ROMAIN K Ot I25.2 OLD MYOCARDIAL INFARCTION 08/03/2018 EUGENE DO ROMAIN K Ot I48.91 UNSPECIFIED ATRIAL FIBRILLATION 08/03/2018 EUGENE DO ROMAIN K Ot I73.9 PERIPHERAL VASCULAR DISEASE, UNSPECIFIED 08/03/2018 EUGENE DOGHANSHYAMA K Ot J44.9 CHRONIC OBSTRUCTIVE PULMONARY DISEASE, U 08/03/2018 EUGENE DOGHANSHYAMA K Ot K21.9 GASTRO-ESOPHAGEAL REFLUX DISEASE WITHOUT 08/03/2018 EUGENE DO ROMAIN K Ot K31.84 GASTROPARESIS 08/03/2018 EUGENE DO ROMAIN K Ot K31.89 OTHER DISEASES OF STOMACH AND DUODENUM 08/03/2018 EUGENE DO ROMAIN K Ot R10.9 UNSPECIFIED ABDOMINAL PAIN 08/03/2018 EUGENE DO ROMAIN K Ot 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 08/03/2018 EUGENE DO ROMAIN K Ot Z79.4 [facility] (CURRENT) USE OF INSULIN 08/03/2018 EUGENE DO ROMAIN K Ot Z82.49 FAMILY HX OF ISCHEM HEART DIS AND OTH DI 08/03/2018 EUGENE DO ROMAIN K Ot Z86.010 PERSONAL HISTORY OF COLONIC POLYPS 08/03/2018 EUGENE GHANSHYAM RIVERAA K Ot Z86.73 PRSNL HX OF TIA (TIA), AND CEREB INFRC W 08/03/2018 EUGENE GHANSHYAM RIVERAA K Ot Z87.19 PERSONAL HISTORY OF OTHER DISEASES OF TH 08/03/2018 EUGENE ROMAIN RIVERA K Ot Z87.448 PERSONAL HISTORY OF OTHER DISEASES OF UR 08/03/2018 EUGENEROMAIN Evans DO Ot Z87.891 PERSONAL HISTORY OF NICOTINE DEPENDENCE 08/03/2018 ROMAIN KNIGHT DO Ot Z88.0 ALLERGY STATUS TO PENICILLIN 08/03/2018 ROMAIN KNIGHT DO Ot Z88.1 ALLERGY STATUS TO OTHER ANTIBIOTIC AGENT 08/03/2018 ROMAIN KNIGHT DO Ot Z88.8 ALLERGY STATUS TO OTH DRUG/MEDS/BIOL SUB 08/03/2018 ROMAIN KNIGHT DO Ot Z95.1 PRESENCE OF AORTOCORONARY BYPASS GRAFT 08/03/2018 ROMAIN KNIGHT DO Ot 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 IMPLANT 08/03/2018 ROMAIN KNIGHT DO Ot Z98.890 OTHER SPECIFIED POSTPROCEDURAL STATES 08/07/2018 BISI GARCIA MD Ot E78. 5 HYPERLIPIDEMIA, UNSPECIFIED 08/07/2018 BISI GARCIA MD Ot I07. 1 RHEUMATIC TRICUSPID INSUFFICIENCY 08/07/2018 BISI GARCIA MD Ot I25. 10 ATHSCL HEART DISEASE OF [place] CORONARY 08/07/2018 BISI GARCIA MD Ot I48. 0 PAROXYSMAL ATRIAL FIBRILLATION 08/07/2018 BISI GARCIA MD Ot I73. 9 PERIPHERAL VASCULAR DISEASE, UNSPECIFIED 08/07/2018 BISI GARCIA MD Ot K21. 9 GASTRO-ESOPHAGEAL REFLUX DISEASE WITHOUT 08/13/2018 CHARO SCHNEIDER MD Ot E11.43 TYPE 2 DIABETES W DIABETIC AUTONOMIC (PO 08/13/2018 CHARO SCHNEIDER MD Ot E78.00 PURE HYPERCHOLESTEROLEMIA, UNSPECIFIED 08/13/2018 CHARO SCHNEIDER MD Ot F41.9 ANXIETY DISORDER, UNSPECIFIED 08/13/2018 CHARO SCHNEIDER MD Ot G47.30 SLEEP APNEA, UNSPECIFIED 08/13/2018 CHARO SCHNEIDER MD Ot I10 ESSENTIAL (PRIMARY) HYPERTENSION 08/13/2018 CHARO SCHNEIDER MD Ot I25.10 ATHSCL HEART DISEASE OF [place] CORONARY 08/13/2018 CHARO SCHNEIDER MD Ot I25.2 OLD MYOCARDIAL INFARCTION 08/13/2018 CHARO SCHNEIDER MD Ot I48.91 UNSPECIFIED ATRIAL FIBRILLATION 08/13/2018 CHARO SCHNEIDER MD Ot I73.9 PERIPHERAL VASCULAR DISEASE, UNSPECIFIED 08/13/2018 CHARO SCHNEIDER MD, Ot J44.9 CHRONIC OBSTRUCTIVE PULMONARY DISEASE, U 08/13/2018 CHARO SCHNEIDER MD, Ot K21.9 GASTRO-ESOPHAGEAL REFLUX DISEASE WITHOUT 08/13/2018 CHARO SCHNEIDER MD, Ot K31.84 GASTROPARESIS 08/13/2018 CHARO SCHNEIDER MD, Ot R03.1 NONSPECIFIC LOW BLOOD-PRESSURE READING 08/13/2018 CHARO SCHNEIDER MD, Ot 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 08/13/2018 CHARO SCHNEIDER MD, Ot 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 08/13/2018 CHARO SCHNEIDER MD, Ot Z82.49 FAMILY HX OF ISCHEM HEART DIS AND OTH DI 08/13/2018 CHARO SCHNEIDER MD, Ot Z86.010 PERSONAL HISTORY OF COLONIC POLYPS 08/13/2018 CHARO SCHNEIDER MD, Ot Z86.73 PRSNL HX OF TIA (TIA), AND CEREB INFRC W 08/13/2018 CHARO SCHNEIDER MD, Ot Z87.19 PERSONAL HISTORY OF OTHER DISEASES OF TH 08/13/2018 CHARO SCHNEIDER MD, Ot Z87.448 PERSONAL HISTORY OF OTHER DISEASES OF UR 08/13/2018 CHARO SCHNEIDER MD, Ot Z87.891 PERSONAL HISTORY OF NICOTINE DEPENDENCE 08/13/2018 CHARO SCHNEIDER MD, Ot Z88.0 ALLERGY STATUS TO PENICILLIN 08/13/2018 CHARO SCHNEIDER MD, Ot Z88.1 ALLERGY STATUS TO OTHER ANTIBIOTIC AGENT 08/13/2018 CHARO SCHNEIDER MD, Ot Z88.8 ALLERGY STATUS TO [facility] DRUG/MEDS/BIOL SUB 08/13/2018 CHARO SCHNEIDER MD, Ot Z95.1 PRESENCE OF AORTOCORONARY BYPASS GRAFT 08/13/2018 CHARO SCHNEIDER MD, Ot 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 IMPLANT 08/13/2018 CHARO SCHNEIDER MD, Ot Z98.1 ARTHRODESIS STATUS 08/13/2018 CHARO SCHNEIDER MD, Ot Z98.890 OTHER SPECIFIED POSTPROCEDURAL STATES 08/19/2018 [...] MD Ot I25.10 ATHSCL HEART DISEASE OF [place] CORONARY 08/19/2018 CHARO SCHNEIDER MD Ot I25.2 OLD MYOCARDIAL INFARCTION 08/19/2018 CHARO SCHNEIDER MD Ot I48.91 UNSPECIFIED ATRIAL FIBRILLATION 08/19/2018 CHARO SCHNEIDER MD Ot I73.9 PERIPHERAL VASCULAR DISEASE, UNSPECIFIED 08/19/2018 CHARO SCHNEIDER MD, Ot J44.9 CHRONIC OBSTRUCTIVE PULMONARY DISEASE, U 08/19/2018 CHARO SCHNEIDER MD Ot K21.9 GASTRO-ESOPHAGEAL REFLUX DISEASE WITHOUT 08/19/2018 CHARO SCHNEIDER MD Ot K31.84 GASTROPARESIS 08/19/2018 CHARO SCHNEIDER MD Ot R03.1 NONSPECIFIC LOW BLOOD-PRESSURE READING 08/19/2018 CHARO SCHNEIDER MD Ot Z79.01 [facility] (CURRENT) USE OF ANTICOAGULANT 08/19/2018 CHARO SCHNEIDER MD Ot 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 08/19/2018 CHARO SCHNEIDER MD Ot Z82.49 FAMILY HX OF [place] HEART DIS AND OTH DI 08/19/2018 CHARO SCHNEIDER MD Ot Z86.010 PERSONAL HISTORY OF COLONIC POLYPS 08/19/2018 CHARO SCHNEIDER MD Ot Z86.73 PRSNL HX OF TIA (TIA), AND CEREB INFRC W 08/19/2018 CHARO SCHNEIDER MD Ot Z87.19 PERSONAL HISTORY OF OTHER DISEASES OF TH 08/19/2018 CHARO SCHNEIDER MD Ot Z87.448 PERSONAL HISTORY OF OTHER DISEASES OF UR 08/19/2018 CHARO SCHNEIDER MD Ot Z87.891 PERSONAL HISTORY OF NICOTINE DEPENDENCE 08/19/2018 CHARO SCHNEIDER MD Ot Z88.0 ALLERGY STATUS TO PENICILLIN 08/19/2018 CHARO SCHNEIDER MD, Ot Z88.1 ALLERGY STATUS TO OTHER ANTIBIOTIC AGENT 08/19/2018 CHARO SCHNEIDER MD, Ot Z88.8 ALLERGY STATUS TO [facility] DRUG/MEDS/BIOL SUB 08/19/2018 CHARO SCHNEIDER MD, Ot Z95.1 PRESENCE OF AORTOCORONARY BYPASS GRAFT 08/19/2018 CHARO SCHNEIDER MD, Ot 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 IMPLANT 08/19/2018 CHARO SCHNEIDER MD, Ot Z98.1 ARTHRODESIS STATUS 08/19/2018 CHARO SCHNEIDER MD, Ot Z98.890 OTHER SPECIFIED POSTPROCEDURAL STATES 08/22/2018 IRAJ HERRERA MD Ot D50. 8 OTHER IRON DEFICIENCY ANEMIAS 08/22/2018 IRAJ HERRERA MD Ot I95. 89 OTHER HYPOTENSION 08/22/2018 IRAJ HERRERA MD C Ot R53. 83 OTHER FATIGUE 08/23/2018 IRAJ HERRERA MD Ot D50. 8 OTHER IRON DEFICIENCY ANEMIAS 08/23/2018 IRAJ HERRERA MD C Ot I95. 89 OTHER HYPOTENSION 08/23/2018 IRAJ HERRERA MD C Ot R53. 83 OTHER FATIGUE 09/21/2018 CHARO SCHNEIDER MD, Ot R69 ILLNESS, UNSPECIFIED 09/24/2018 CHARO SCHNEIDER MD, Ot R69 ILLNESS, UNSPECIFIED 10/27/2018 MARY MENDEZP Ot E11.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 W DIABETIC PERIPHERAL AN 10/27/2018 MARY MENDEZP Ot E11.65 TYPE 2 DIABETES MELLITUS WITH HYPERGLYCE 10/27/2018 MARY MENDEZ INSULATION BOARD BACK TENDER Ot E78.00 PURE HYPERCHOLESTEROLEMIA, UNSPECIFIED 10/27/2018 VANESSA MARY INSULATION BOARD BACK TENDER Ot F41.9 ANXIETY DISORDER, UNSPECIFIED 10/27/2018 MARY MENDEZ INSULATION BOARD BACK TENDER Ot G47.30 SLEEP APNEA, UNSPECIFIED 10/27/2018 VANESSA MARY INSULATION BOARD BACK TENDER Ot I10 ESSENTIAL (PRIMARY) HYPERTENSION 10/27/2018 VANESSA MARY INSULATION BOARD BACK TENDER Ot I20.8 OTHER FORMS OF ANGINA PECTORIS 10/27/2018 MARY MENDEZ INSULATION BOARD BACK TENDER Ot I25.10 ATHSCL HEART DISEASE OF [place] CORONARY 10/27/2018 MARY MENDEZ INSULATION BOARD BACK TENDER Ot I25.2 OLD MYOCARDIAL INFARCTION 10/27/2018 MARY MENDEZP Ot I48.91 UNSPECIFIED ATRIAL FIBRILLATION 10/27/2018 MARY MENDEZP Ot I73.9 PERIPHERAL VASCULAR DISEASE, UNSPECIFIED 10/27/2018 MARY MENDEZP Ot J44.9 CHRONIC OBSTRUCTIVE PULMONARY DISEASE, U 10/27/2018 MARY MENDEZP Ot K21.9 GASTRO-ESOPHAGEAL REFLUX DISEASE WITHOUT 10/27/2018 MARY MENDEZP Ot R07.2 PRECORDIAL PAIN 10/27/2018 MARY MENDEZP Ot Z79.01 [facility] (CURRENT) USE OF ANTICOAGULANT 10/27/2018 MARY MENDEZP Ot 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 10/27/2018 MARY MENDEZP Ot Z82.49 FAMILY HX OF [place] HEART DIS AND OTH DI 10/27/2018 MARY MENDEZP Ot Z86.010 PERSONAL HISTORY OF COLONIC POLYPS 10/27/2018 MARY MENDEZP Ot Z86.73 PRSNL HX OF TIA (TIA), AND CEREB INFRC W 10/27/2018 MARY MENDEZ INSULATION BOARD BACK TENDER Ot Z87.448 PERSONAL HISTORY OF OTHER DISEASES OF UR 10/27/2018 MARY MENDEZ INSULATION BOARD BACK TENDER Ot Z87.891 PERSONAL HISTORY OF NICOTINE DEPENDENCE 10/27/2018 MARY MENDEZ INSULATION BOARD BACK TENDER Ot Z88.0 ALLERGY STATUS TO PENICILLIN 10/27/2018 MARY MENDEZ INSULATION BOARD BACK TENDER Ot Z88.1 ALLERGY STATUS TO OTHER ANTIBIOTIC AGENT 10/27/2018 MARY MENDEZ INSULATION BOARD BACK TENDER Ot Z88.8 ALLERGY STATUS TO [facility] DRUG/MEDS/BIOL SUB 10/27/2018 MARY MENDEZP Ot Z95.1 PRESENCE OF AORTOCORONARY BYPASS GRAFT 10/27/2018 MARY MENDEZP Ot 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 IMPLANT 10/27/2018 MARY MENDEZP Ot Z98.1 ARTHRODESIS STATUS 10/27/2018 MARY MENDEZ INSULATION BOARD BACK TENDER Ot Z98.890 OTHER SPECIFIED POSTPROCEDURAL STATES 10/30/2018 MARY MENDEZP Ot E11.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 W DIABETIC PERIPHERAL AN 10/30/2018 MARY MENDEZ INSULATION BOARD BACK TENDER Ot E11.65 TYPE 2 DIABETES MELLITUS WITH HYPERGLYCE 10/30/2018 MARY MENDEZP Ot E78.00 PURE HYPERCHOLESTEROLEMIA, UNSPECIFIED 10/30/2018 VANESSAMARY Spears INSULATION BOARD BACK TENDER Ot F41.9 ANXIETY DISORDER, UNSPECIFIED 10/30/2018 VANESSAMARY Spears INSULATION BOARD BACK TENDER Ot G47.30 SLEEP APNEA, UNSPECIFIED 10/30/2018 VANESSA, MARY INSULATION BOARD BACK TENDER Ot I10 ESSENTIAL (PRIMARY) HYPERTENSION 10/30/2018 VANESSAMARY Spears INSULATION BOARD BACK TENDER Ot I20.8 OTHER FORMS OF ANGINA PECTORIS 10/30/2018 VANESSAMARY SpearsP Ot I25.10 ATHSCL HEART DISEASE OF [place] CORONARY 10/30/2018 VANESSAMARY Spears INSULATION BOARD BACK TENDER Ot I25.2 OLD MYOCARDIAL INFARCTION 10/30/2018 VANESSAMARY Spears INSULATION BOARD BACK TENDER Ot I48.91 UNSPECIFIED ATRIAL FIBRILLATION 10/30/2018 VANESSAMARY SpearsP Ot I73.9 PERIPHERAL VASCULAR DISEASE, UNSPECIFIED 10/30/2018 VANESSAMARY SpearsP Ot J44.9 CHRONIC OBSTRUCTIVE PULMONARY DISEASE, U 10/30/2018 VANESSAMARY SpearsP Ot K21.9 GASTRO-ESOPHAGEAL REFLUX DISEASE WITHOUT 10/30/2018 MARY MENDEZP Ot R07.2 PRECORDIAL PAIN 10/30/2018 MARY MENDEZ INSULATION BOARD BACK TENDER Ot 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 10/30/2018 MARY MENDEZ INSULATION BOARD BACK TENDER Ot 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 10/30/2018 MARY MENDEZ INSULATION BOARD BACK TENDER Ot Z82.49 FAMILY HX OF [place] HEART DIS AND OTH DI 10/30/2018 MARY MENDEZP Ot Z86.010 PERSONAL HISTORY OF COLONIC POLYPS 10/30/2018 MARY MENDEZP Ot Z86.73 PRSNL HX OF TIA (TIA), AND CEREB INFRC W 10/30/2018 MARY MENDEZ INSULATION BOARD BACK TENDER Ot Z87.448 PERSONAL HISTORY OF OTHER DISEASES OF UR 10/30/2018 MARY MENDEZ INSULATION BOARD BACK TENDER Ot Z87.891 PERSONAL HISTORY OF NICOTINE DEPENDENCE 10/30/2018 MARY MENDEZ INSULATION BOARD BACK TENDER Ot Z88.0 ALLERGY STATUS TO PENICILLIN 10/30/2018 MARY MENDEZ INSULATION BOARD BACK TENDER Ot Z88.1 ALLERGY STATUS TO OTHER ANTIBIOTIC AGENT 10/30/2018 MARY MENDEZ INSULATION BOARD BACK TENDER Ot Z88.8 ALLERGY STATUS TO [facility] DRUG/MEDS/BIOL SUB 10/30/2018 MARY MENDEZ INSULATION BOARD BACK TENDER Ot Z95.1 PRESENCE OF AORTOCORONARY BYPASS GRAFT 10/30/2018 MARY MENDEZ Ot 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 IMPLANT 10/30/2018 MARY MENDEZ Ot Z98.1 ARTHRODESIS STATUS 10/30/2018 MARY MENDEZ Ot Z98.890 OTHER SPECIFIED POSTPROCEDURAL STATES 11/05/2018 RODOLFO CUELLO MD Ot E11.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 W DIABETIC PERIPHERAL AN 11/05/2018 RODOLFO CUELLO MD Ot E78.00 PURE HYPERCHOLESTEROLEMIA, UNSPECIFIED 11/05/2018 RODOLFO CUELLO MD Ot F41.9 ANXIETY DISORDER, UNSPECIFIED 11/05/2018 RODOLFO CUELLO MD Ot G47.30 SLEEP APNEA, UNSPECIFIED 11/05/2018 RODOLFO CUELLO MD Ot I10 ESSENTIAL (PRIMARY) HYPERTENSION 11/05/2018 RODOLFO CUELLO MD Ot I25.10 ATHSCL HEART DISEASE OF [place] CORONARY 11/05/2018 RODOLFO CUELLO MD Ot I25.2 OLD MYOCARDIAL INFARCTION 11/05/2018 RODOLFO CUELLO MD Ot I48.91 UNSPECIFIED ATRIAL FIBRILLATION 11/05/2018 RODOLFO CUELLO MD Ot J44.9 CHRONIC OBSTRUCTIVE PULMONARY DISEASE, U 11/05/2018 RODOLFO CUELLO MD Ot N40.0 BENIGN PROSTATIC HYPERPLASIA WITHOUT LOW 11/05/2018 RODOLFO CUELLO MD Ot R00.0 TACHYCARDIA, UNSPECIFIED 11/05/2018 RODOLFO CUELLO MD Ot R19.7 DIARRHEA, UNSPECIFIED 11/05/2018 RODOLFO CUELLO MD Ot 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 11/05/2018 RODOLFO CUELLO MD Ot Z82.49 FAMILY HX OF [place] HEART DIS AND OTH DI 11/05/2018 RODOLFO CUELLO MD, Ot Z86.73 PRSNL HX OF TIA (TIA), AND CEREB INFRC W 11/05/2018 RODOLFO CUELLO MD, Ot Z87.19 PERSONAL HISTORY OF OTHER DISEASES OF TH 11/05/2018 RODOLFO CUELLO MD, Ot Z87.891 PERSONAL HISTORY OF NICOTINE DEPENDENCE 11/05/2018 RODOLFO CUELLO MD Ot Z88.0 ALLERGY STATUS TO PENICILLIN 11/05/2018 ORDOLFO CUELLO MD Ot Z88.1 ALLERGY STATUS TO OTHER ANTIBIOTIC AGENT 11/05/2018 RODOLFO CUELLO MD, Ot Z88.5 ALLERGY STATUS TO NARCOTIC AGENT STATUS 11/05/2018 RODOLFO CUELLO MD, Ot Z88.8 ALLERGY STATUS TO OT DRUG/MEDS/BIOL SUB 11/05/2018 RODOLFO CUELLO MD Ot Z95.1 PRESENCE OF [...] MD, Ot I25.10 ATHSCL HEART DISEASE OF [place] CORONARY 11/08/2018 RODOLFO CUELLO MD, Ot I25.2 OLD MYOCARDIAL INFARCTION 11/08/2018 RODOLFO CUELLO MD Ot I48.91 UNSPECIFIED ATRIAL FIBRILLATION 11/08/2018 RODOLFO CUELLO MD Ot J44.9 CHRONIC OBSTRUCTIVE PULMONARY DISEASE, U 11/08/2018 RODOLFO CUELLO MD Ot N40.0 BENIGN PROSTATIC HYPERPLASIA WITHOUT LOW 11/08/2018 RODOLFO CUELLO MD Ot R00.0 TACHYCARDIA, UNSPECIFIED 11/08/2018 RODOLFO CUELLO MD, Ot R19.7 DIARRHEA, UNSPECIFIED 11/08/2018 RODOLFO CUELLO MD Ot 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 11/08/2018 RODOLFO CUELLO MD Ot Z82.49 FAMILY HX OF [place] HEART DIS AND OTH DI 11/08/2018 RODOLFO CUELLO MD, Ot Z86.73 PRSNL HX OF TIA (TIA), AND CEREB INFRC W 11/08/2018 RODOLFO CUELLO MD, Ot Z87.19 PERSONAL HISTORY OF OTHER DISEASES OF TH 11/08/2018 RODOLFO CUELLO MD, Ot Z87.891 PERSONAL HISTORY OF NICOTINE DEPENDENCE 11/08/2018 RODOLFO CUELLO MD, Ot Z88.0 ALLERGY STATUS TO PENICILLIN 11/08/2018 RODOLFO CUELLO MD, Ot Z88.1 ALLERGY STATUS TO OTHER ANTIBIOTIC AGENT 11/08/2018 RODOLFO CUELLO MD, Ot Z88.5 ALLERGY STATUS TO NARCOTIC AGENT STATUS 11/08/2018 RODOLFO CUELLO MD, Ot Z88.8 ALLERGY STATUS TO OT DRUG/MEDS/BIOL SUB 11/08/2018 RODOLFO CUELLO MD, Ot Z95.1 PRESENCE OF AORTOCORONARY BYPASS GRAFT 11/08/2018 RODOLFO CUELLO MD Ot E11.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 W DIABETIC PERIPHERAL AN 11/08/2018 RODOLFO CUELLO MD, Ot E78.00 PURE HYPERCHOLESTEROLEMIA, UNSPECIFIED 11/08/2018 RODOLFO CUELLO MD, Ot F41.9 ANXIETY DISORDER, UNSPECIFIED 11/08/2018 RODOLFO CUELLO MD, Ot G47.30 SLEEP APNEA, UNSPECIFIED 11/08/2018 RODOLFO CUELLO MD, Ot I10 ESSENTIAL (PRIMARY) HYPERTENSION 11/08/2018 RODOLFO CUELLO MD, Ot I25.10 ATHSCL HEART DISEASE OF [place] CORONARY 11/08/2018 RODOLFO CUELLO MD, Ot I25.2 OLD MYOCARDIAL INFARCTION 11/08/2018 RODOLFO CUELLO MD, Ot I48.91 UNSPECIFIED ATRIAL FIBRILLATION 11/08/2018 RODOLFO CUELLO MD, Ot J44.9 CHRONIC OBSTRUCTIVE PULMONARY DISEASE, U 11/08/2018 RODOLFO CUELLO MD, Ot N40.0 BENIGN PROSTATIC HYPERPLASIA WITHOUT LOW 11/08/2018 RODOLFO CUELLO MD, Ot R00.0 TACHYCARDIA, UNSPECIFIED 11/08/2018 RODOLFO CUELLO MD Ot R19.7 DIARRHEA, UNSPECIFIED 11/08/2018 RODOLFO CUELLO MD, Ot 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 11/08/2018 RODOLFO CUELLO MD, Ot Z82.49 FAMILY HX OF [place]HE[place] HEART DIS AND OTH DI 11/08/2018 RODOLFO CUELLO MD, Ot Z86.73 PRSNL HX OF TIA (TIA), AND CEREB INFRC W 11/08/2018 RODOLFO CUELLO MD, Ot Z87.19 PERSONAL HISTORY OF OTHER DISEASES OF TH 11/08/2018 RODOLFO CUELLO MD, Ot Z87.891 PERSONAL HISTORY OF NICOTINE DEPENDENCE 11/08/2018 RODOLFO CUELLO MD, Ot Z88.0 ALLERGY STATUS TO PENICILLIN 11/08/2018 RODOLFO CUELLO MD Ot Z88.1 ALLERGY STATUS TO OTHER ANTIBIOTIC AGENT 11/08/2018 RODOLFO CUELLO MD, Ot Z88.5 ALLERGY STATUS TO NARCOTIC AGENT STATUS 11/08/2018 RODOLFO CUELLO MD, Ot Z88.8 ALLERGY STATUS TO OTH DRUG/MEDS/BIOL SUB 11/08/2018 RODOLFO CUELLO MD, Ot Z95.1 PRESENCE OF AORTOCORONARY BYPASS GRAFT 11/08/2018 CHARO SCHNEIDER MD Ot E11.43 TYPE 2 DIABETES W DIABETIC AUTONOMIC (PO 11/08/2018 CHARO SCHNEIDER MD, Ot E11.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 W DIABETIC PERIPHERAL AN 11/08/2018 CHARO SCHNEIDER MD, Ot E78.00 PURE HYPERCHOLESTEROLEMIA, UNSPECIFIED 11/08/2018 CHARO SCHNEIDER MD, Ot F41.9 ANXIETY DISORDER, UNSPECIFIED 11/08/2018 CHARO SCHNEIDER MD, Ot G47.30 SLEEP APNEA, UNSPECIFIED 11/08/2018 CHARO SCHNEIDER MD, Ot I10 ESSENTIAL (PRIMARY) HYPERTENSION 11/08/2018 CHARO SCHNEIDER MD Ot I25.10 ATHSCL HEART DISEASE OF [place] CORONARY 11/08/2018 CHARO SCHNEIDER MD, Ot I25.2 OLD MYOCARDIAL INFARCTION 11/08/2018 CHARO SCHNEIDER MD, Ot I48.91 UNSPECIFIED ATRIAL FIBRILLATION 11/08/2018 CHARO SCHNEIDER MD, Ot J44.9 CHRONIC OBSTRUCTIVE PULMONARY DISEASE, U 11/08/2018 CHARO SCHNEIDER MD, Ot K21.9 GASTRO-ESOPHAGEAL REFLUX DISEASE WITHOUT 11/08/2018 CHARO SCHNEIDER MD, Ot K31.84 GASTROPARESIS 11/08/2018 CHARO SCHNEIDER MD, Ot N40.0 BENIGN PROSTATIC HYPERPLASIA WITHOUT LOW 11/08/2018 CHARO SCHNEIDER MD, Ot R00.2 PALPITATIONS 11/08/2018 CHARO SCHNEIDER MD, Ot 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 8 OTHER IRON DEFICIENCY ANEMIAS 11/09/2018 IRAJ HERRERA MD Ot I95. 89 OTHER HYPOTENSION 11/09/2018 IRAJ HERRERA MD Ot R53. 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 W 11/09/2018 ROMAIN KNIGHT DO Ot I25.2 OLD MYOCARDIAL INFARCTION 11/09/2018 ROMAIN KNIGHT DO Ot J44.9 CHRONIC OBSTRUCTIVE PULMONARY DISEASE, U 11/09/2018 ROMAIN KNIGHT DO Ot K21.9 GASTRO-ESOPHAGEAL REFLUX DISEASE WITHOUT 11/09/2018 GHANSHYAM KNIGHT DOA Es Ot K31.84 GASTROPARESIS 11/09/2018 EUGENE ROMAIN RIVERA Ot N40.0 BENIGN PROSTATIC HYPERPLASIA WITHOUT LOW 11/09/2018 ROMAIN KNIGHT DO Ot R06.02 SHORTNESS OF BREATH 11/09/2018 ROMAIN KNIGHT DO Ot 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 11/09/2018 EUGENE ROMAIN RIVERA Ot Z82.49 FAMILY HX OF [place]HE[place] HEART DIS AND OTH DI 11/09/2018 ROMAIN KNIGHT DO Ot Z86.010 PERSONAL HISTORY OF COLONIC POLYPS 11/09/2018 ROMAIN KNIGHT DO Ot Z86.73 PRSNL HX OF TIA (TIA), AND CEREB INFRC W 11/09/2018 ROMAIN KNIGHT DO Ot Z87.19 PERSONAL HISTORY OF OTHER DISEASES OF TH 11/09/2018 ROMAIN KNIGHT DO Ot Z87.891 PERSONAL HISTORY OF NICOTINE DEPENDENCE 11/09/2018 GHANSHYAM KNGIHT DOA K Ot Z88.0 ALLERGY STATUS TO PENICILLIN 11/09/2018 GHANSHYAM KNIGHT DOA Es Ot Z88.1 ALLERGY STATUS TO OTHER ANTIBIOTIC AGENT 11/09/2018 EUGENE ROMAIN RIVERA Ot Z88.5 ALLERGY STATUS TO NARCOTIC AGENT STATUS 11/09/2018 ROMAIN KNIGHT DO Ot Z88.8 ALLERGY STATUS TO OTH DRUG/MEDS/BIOL SUB 11/09/2018 ROMAIN KNIGHT DO Es Ot Z95.1 PRESENCE OF AORTOCORONARY BYPASS GRAFT 11/09/2018 EUGENE DOROMAIN Ot 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 IMPLANT 11/09/2018 EUGENE RIVERA ROMAIN K Ot Z98.1 ARTHRODESIS STATUS 11/11/2018 CHARO SCHNEIDER MD Ot E11.43 TYPE 2 DIABETES W DIABETIC AUTONOMIC (PO 11/11/2018 CHARO SCHNEIDER MD, Ot E11.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 W DIABETIC PERIPHERAL AN 11/11/2018 CHARO SCHNEIDER MD Ot E78.00 PURE HYPERCHOLESTEROLEMIA, UNSPECIFIED 11/11/2018 CHARO SCHNEIDER MD Ot F41.9 ANXIETY DISORDER, UNSPECIFIED 11/11/2018 CHARO SCHNEIDER MD Ot G47.30 SLEEP APNEA, UNSPECIFIED 11/11/2018 CHARO SCHNEIDER MD Ot I10 ESSENTIAL (PRIMARY) HYPERTENSION 11/11/2018 CHARO SCHNEIDER MD, Ot I25.10 ATHSCL HEART DISEASE OF [place] CORONARY 11/11/2018 CHARO SCHNEIDER MD Ot I25.2 OLD MYOCARDIAL INFARCTION 11/11/2018 CHARO SCHNEIDER MD Ot I48.91 UNSPECIFIED ATRIAL FIBRILLATION 11/11/2018 CHARO SCHNEIDER MD Ot J44.9 CHRONIC OBSTRUCTIVE PULMONARY DISEASE, U 11/11/2018 CHARO SCHNEIDER MD Ot K21.9 GASTRO-ESOPHAGEAL REFLUX DISEASE WITHOUT 11/11/2018 CHARO SCHNEIDER MD Ot K31.84 GASTROPARESIS 11/11/2018 CHARO SCHNEIDER MD Ot N40.0 BENIGN PROSTATIC HYPERPLASIA WITHOUT LOW 11/11/2018 CHARO SCHNEIDER MD Ot R00.2 PALPITATIONS 11/11/2018 CHARO SCHNEIDER MD Ot Z79.4 [facility] (CURRENT) USE OF INSULIN 11/11/2018 CHARO SCHNEIDER MD Ot Z82.49 FAMILY HX OF I[place]HEM HEART DIS AND OTH DI 11/11/2018 CHARO SCHNEIDER MD, Ot Z86.010 PERSONAL HISTORY OF COLONIC POLYPS 11/11/2018 CHARO SCHNEIDER MD, Ot Z86.73 PRSNL HX OF TIA (TIA), AND CEREB INFRC W 11/11/2018 CHARO SCHNEIDER MD, Ot Z87.19 PERSONAL HISTORY OF OTHER DISEASES OF TH 11/11/2018 CHARO SCHNEIDER MD, Ot Z87.891 PERSONAL HISTORY OF NICOTINE DEPENDENCE 11/11/2018 CHARO SCHNEIDER MD, Ot Z88.0 ALLERGY STATUS TO PENICILLIN 11/11/2018 CHARO SCHNEIDER MD, Ot Z88.5 ALLERGY STATUS TO NARCOTIC AGENT STATUS 11/11/2018 CHARO SCHNEIDER MD, Ot Z88.8 ALLERGY STATUS TO OTH DRUG/MEDS/BIOL SUB 11/11/2018 CHARO SCHNEIDER MD, Ot Z95.1 PRESENCE OF AORTOCORONARY BYPASS GRAFT 11/11/2018 CHARO SCHNEIDER MD, Ot 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 IMPLANT 11/12/2018 ROMAIN KNIGHT DO Ot E11.43 TYPE 2 DIABETES W DIABETIC AUTONOMIC (PO 11/12/2018 ROMAIN KNIGHT DO Ot E11.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 W DIABETIC PERIPHERAL AN 11/12/2018 ROMAIN KNIGHT DO Ot E11.649 TYPE 2 DIABETES MELLITUS WITH HYPOGLYCEM 11/12/2018 ROMAIN KNIGHT DO K Ot E78.00 PURE HYPERCHOLESTEROLEMIA, UNSPECIFIED 11/12/2018 GHANSHYAM KNIGHT DOA K Ot F41.9 ANXIETY DISORDER, UNSPECIFIED 11/12/2018 ROMAIN KNIGHT DO K Ot G47.30 SLEEP APNEA, UNSPECIFIED 11/12/2018 ROMAIN KNIGHT DO K Ot I10 ESSENTIAL (PRIMARY) HYPERTENSION 11/12/2018 GHANSHYAM KNIGHT DOA K Ot I25.119 ATHSCL HEART DISEASE OF [place] COR ART W 11/12/2018 ROMAIN KNIGHT DO Ot I25.2 OLD MYOCARDIAL INFARCTION 11/12/2018 ROMAIN KNIGHT DO Ot J44.9 CHRONIC OBSTRUCTIVE PULMONARY DISEASE, U 11/12/2018 ROMAIN KNIGHT DO K Ot K21.9 GASTRO-ESOPHAGEAL REFLUX DISEASE WITHOUT 11/12/2018 GHANSHYAM KNIGHT DOA K Ot K31.84 GASTROPARESIS 11/12/2018 ROMAIN KNIGHT DO K Ot N40.0 BENIGN PROSTATIC HYPERPLASIA WITHOUT LOW 11/12/2018 EUGENE RIVERA ROMAIN Suggs Ot R06.02 SHORTNESS OF BREATH 11/12/2018 EUGENE RIVERA ROMAIN Es Ot 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 11/12/2018 EUGENE RIVERA ROMAIN Es Ot Z82.49 FAMILY HX OF ISCHEM HEART DIS AND OTH DI 11/12/2018 EUGENE RIVERA ROMAIN Es Ot Z86.010 PERSONAL HISTORY OF COLONIC POLYPS 11/12/2018 EUGENE DO ROMAIN Es Ot Z86.73 PRSNL HX OF TIA (TIA), AND CEREB INFRC W 11/12/2018 EUGENE RIVERA ROMAIN K Ot Z87.19 PERSONAL HISTORY OF OTHER DISEASES OF TH 11/12/2018 EUGENE RIVERA ROMAIN Es Ot Z87.891 PERSONAL HISTORY OF NICOTINE DEPENDENCE 11/12/2018 EUGENE RIVERA ROMAIN Es Ot Z88.0 ALLERGY STATUS TO PENICILLIN 11/12/2018 EUGENE ROMAIN K Ot Z88.1 ALLERGY STATUS TO OTHER ANTIBIOTIC AGENT 11/12/2018 EUGENE DOROMAIN Ot Z88.5 ALLERGY STATUS TO NARCOTIC AGENT STATUS 11/12/2018 EUGENE DO ROMAIN Es Ot Z88.8 ALLERGY STATUS TO OTH DRUG/MEDS/BIOL SUB 11/12/2018 EUGENE RIVERA ROMAIN Es Ot Z95.1 PRESENCE OF AORTOCORONARY BYPASS GRAFT 11/12/2018 EUGENE ROMAIN Ot 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 IMPLANT 11/12/2018 EUGENE ROMAIN Ot Z98.1 ARTHRODESIS STATUS 11/19/2018 CHARO SCHNEIDER [...] MD Ot I25.10 ATHSCL HEART DISEASE OF [place] CORONARY 11/19/2018 CHARO SCHNEIDER MD, Ot I25.2 OLD MYOCARDIAL INFARCTION 11/19/2018 CHARO SCHNEIDER MD, Ot I48.91 UNSPECIFIED ATRIAL FIBRILLATION 11/19/2018 CHARO SCHNEIDER MD, Ot J44.9 CHRONIC OBSTRUCTIVE PULMONARY DISEASE, U 11/19/2018 CHARO SCHNEIDER MD, Ot K21.9 GASTRO-ESOPHAGEAL REFLUX DISEASE WITHOUT 11/19/2018 CHARO SCHNEIDER MD, Ot K31.84 GASTROPARESIS 11/19/2018 CHARO SCHNEIDER MD, Ot N40.0 BENIGN PROSTATIC HYPERPLASIA WITHOUT LOW 11/19/2018 CHARO SCHNEIDER MD, Ot R00.2 PALPITATIONS 11/19/2018 CHARO SCHNEIDER MD, Ot Z79.4 [facility] (CURRENT) USE OF INSULIN 11/19/2018 CHARO SCHNEIDER MD, Ot Z82.49 FAMILY HX OF [place] HEART DIS AND OTH DI 11/19/2018 CHARO SCHNEIDER MD, Ot Z86.010 PERSONAL HISTORY OF COLONIC POLYPS 11/19/2018 CHARO SCHNEIDER MD Ot Z86.73 PRSNL HX OF TIA (TIA), AND CEREB INFRC W 11/19/2018 CHARO SCHNEIDER MD, Ot Z87.19 PERSONAL HISTORY OF OTHER DISEASES OF TH 11/19/2018 CHARO SCHNEIDER MD Ot Z87.891 PERSONAL HISTORY OF NICOTINE DEPENDENCE 11/19/2018 CHARO SCHNEIDER MD Ot Z88.0 ALLERGY STATUS TO PENICILLIN 11/19/2018 CHARO SCHNEIDER MD, Ot Z88.5 ALLERGY STATUS TO NARCOTIC AGENT STATUS 11/19/2018 CHARO SCHNEIDER MD, Ot Z88.8 ALLERGY STATUS TO OT DRUG/MEDS/BIOL SUB 11/19/2018 CHARO SCHNEIDER MD, Ot Z95.1 PRESENCE OF AORTOCORONARY BYPASS GRAFT 11/19/2018 CHARO SCHNEIDER MD Ot 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 IMPLANT 11/21/2018 CHARO SCHNEIDER MD Ot E11.43 TYPE 2 DIABETES W DIABETIC AUTONOMIC (PO 11/21/2018 CHARO SCHNEIDER MD, Ot E11.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 W DIABETIC PERIPHERAL AN 11/21/2018 CHARO SCHNEIDER MD Ot E78.00 PURE HYPERCHOLESTEROLEMIA, UNSPECIFIED 11/21/2018 CHARO SCHNEIDER MD Ot F41.9 ANXIETY DISORDER, UNSPECIFIED 11/21/2018 CHARO SCHNEIDER MD Ot G47.30 SLEEP APNEA, UNSPECIFIED 11/21/2018 CHARO SCHNEIDER MD Ot I10 ESSENTIAL (PRIMARY) HYPERTENSION 11/21/2018 CHARO SCHNEIDER MD Ot I25.10 ATHSCL HEART DISEASE OF [place] CORONARY 11/21/2018 CHARO SCHNEIDER MD Ot I25.2 OLD MYOCARDIAL INFARCTION 11/21/2018 CHARO SCHNEIDER MD Ot I48.91 UNSPECIFIED ATRIAL FIBRILLATION 11/21/2018 CHARO SCHNEIDER MD, Ot J44.9 CHRONIC OBSTRUCTIVE PULMONARY DISEASE, U 11/21/2018 CHARO SCHNEIDER MD Ot K21.9 GASTRO-ESOPHAGEAL REFLUX DISEASE WITHOUT 11/21/2018 CHARO SCHNEIDER MD Ot K31.84 GASTROPARESIS 11/21/2018 CHARO SCHNEIDER MD Ot N40.0 BENIGN PROSTATIC HYPERPLASIA WITHOUT LOW 11/21/2018 CHARO SCHNEIDER MD Ot R00.2 PALPITATIONS 11/21/2018 CHARO SCHNEIDER MD Ot 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 11/21/2018 CHARO SCHNEIDER MD Ot Z82.49 FAMILY HX OF [place] HEART DIS AND OTH DI 11/21/2018 CHARO SCHNEIDER MD Ot Z86.010 PERSONAL HISTORY OF COLONIC POLYPS 11/21/2018 CHARO SCHNEIDER MD Ot Z86.73 PRSNL HX OF TIA (TIA), AND CEREB INFRC W 11/21/2018 CHARO SCHNEIDER MD Ot Z87.19 PERSONAL HISTORY OF OTHER DISEASES OF TH 11/21/2018 CHARO SCHNEIDER MD Ot Z87.891 PERSONAL HISTORY OF NICOTINE DEPENDENCE 11/21/2018 CHARO SCHNEIDER MD Ot Z88.0 ALLERGY STATUS TO PENICILLIN 11/21/2018 CHARO SCHNEIDER MD Ot Z88.5 ALLERGY STATUS TO NARCOTIC AGENT STATUS 11/21/2018 CHARO SCHNEIDER MD Ot Z88.8 ALLERGY STATUS TO OT DRUG/MEDS/BIOL SUB 11/21/2018 CHARO SCHNEIDER MD Ot [...] MD, Ot I25.10 ATHSCL HEART DISEASE OF [place] CORONARY 12/21/2018 MEGHNA MCCORMACK MD Ot I25.2 OLD MYOCARDIAL INFARCTION 12/21/2018 MEGHNA MCCORMACK MD Ot I48.0 PAROXYSMAL ATRIAL FIBRILLATION 12/21/2018 MEGHNA [...] LOW 12/21/2018 MEGHNA MCCORMACK MD Ot 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 12/21/2018 MEGHNA MCCORMACK MD Ot Z79.4 [facility] (CURRENT) USE OF INSULIN 12/21/2018 MEGHNA MCCORMACK MD, Ot Z79.899 OTHER [facility] (CURRENT) DRUG THERAPY 12/21/2018 MEGHNA MCCORMACK MD Ot Z86.010 PERSONAL HISTORY OF COLONIC POLYPS 12/21/2018 MEGHNA MCCORAMCK MD Ot Z87.19 PERSONAL HISTORY OF OTHER DISEASES OF TH 12/21/2018 MEGHNA MCCORMACK MD, Ot Z87.891 PERSONAL HISTORY OF NICOTINE [...] APRN Ot I25.10 ATHSCL HEART DISEASE OF [place] CORONARY 12/30/2018 LEONARDO SALGADO APRN Ot I25 [...] 12/30/2018 LEONARDO SALGADO APRN Ot Z79 .4 [facility] (CURRENT) USE OF INSULIN 12/30/2018 LEONARDO SALGADO [...] .8 ALLERGY STATUS TO OT DRUG/MEDS/BIOL SUB 12/30/2018 LEONARDO SALGADO APRN Ot [...] APRN Ot I25.10 ATHSCL HEART DISEASE OF [place] CORONARY 01/05/2019 LEONARDO SALGADO APRN Ot I25 [...] 01/05/2019 LEONARDO SALGADO APRN Ot Z79 .4 [facility] (CURRENT) USE OF INSULIN 01/05/2019 LEONARDO SALGADO [...] APRN Ot I25.10 ATHSCL HEART DISEASE OF [place] CORONARY 01/12/2019 LEONARDO SALGADO APRN Ot 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 01/12/2019 LEONARDO SALGADO APRN Ot I48.91 UNSPECIFIED ATRIAL FIBRILLATION 01/12/2019 LEONARDO SALGADO APRN Ot I48.92 UNSPECIFIED ATRIAL FLUTTER 01/12/2019 LEONARDO SALGADO APRN Ot J44 .9 CHRONIC OBSTRUCTIVE PULMONARY DISEASE, U 01/12/2019 LEONARDO SALGADO APRN Ot K21 .9 GASTRO-ESOPHAGEAL REFLUX DISEASE WITHOUT 01/12/2019 LEONARDO SALGADO APRN Ot K31.84 GASTROPARESIS 01/12/2019 LEONARDO SALGADO APRN Ot N40 .0 BENIGN PROSTATIC HYPERPLASIA WITHOUT LOW 01/12/2019 LEONARDO SALGADO APRN Ot 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 01/12/2019 LEONARDO SALGADO APRN Ot Z79 .4 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 01/12/2019 LEONARDO SALGADO [...] APRN Ot I25.10 ATHSCL HEART DISEASE OF [place] CORONARY 01/15/2019 LEONARDO SALGADO APRN Ot 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 01/15/2019 LEONARDO SALGADO APRN Ot I48.91 UNSPECIFIED ATRIAL FIBRILLATION 01/15/2019 LEONARDO SALGADO APRN Ot I48.92 UNSPECIFIED ATRIAL FLUTTER 01/15/2019 LEONARDO SALGADO APRN Ot J44 .9 CHRONIC OBSTRUCTIVE PULMONARY DISEASE, U 01/15/2019 LEONARDO SALGADO APRN Ot K21 .9 GASTRO-ESOPHAGEAL REFLUX DISEASE WITHOUT 01/15/2019 LOENARDO SALGADO APRN Ot K31.84 GASTROPARESIS 01/15/2019 LEONARDO SALGADO APRN Ot N40 .0 BENIGN PROSTATIC HYPERPLASIA WITHOUT LOW 01/15/2019 LEONARDO SALGADO APRN Ot 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 01/15/2019 LEONARDO SALGADO APRN Ot Z79 .4 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 01/15/2019 LEONARDO SALGADO [...] E78.00 PURE HYPERCHOLESTEROLEMIA, UNSPECIFIED 01/23/2019 RODOLFO CUELLO MD Ot F41.9 ANXIETY DISORDER, UNSPECIFIED 01/23/2019 RODOLFO CUELLO MD Ot G47.30 SLEEP APNEA, UNSPECIFIED 01/23/2019 RODOLFO CUELLO MD Ot I10 ESSENTIAL (PRIMARY) HYPERTENSION 01/23/2019 RODOLFO CUELLO MD Ot I25.10 ATHSCL HEART DISEASE OF [place] CORONARY 01/23/2019 RODOLFO CUELLO MD Ot I25.2 OLD MYOCARDIAL INFARCTION 01/23/2019 RODOLFO CUELLO MD Ot I48.91 UNSPECIFIED ATRIAL FIBRILLATION 01/23/2019 RODOLFO CUELLO MD Ot 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 01/23/2019 RODOLFO CUELLO MD Ot J44.9 CHRONIC OBSTRUCTIVE PULMONARY DISEASE, U 01/23/2019 RODOLFO CUELLO MD Ot K21.9 GASTRO-ESOPHAGEAL REFLUX DISEASE WITHOUT 01/23/2019 RODOLFO CUELLO MD Ot K31.84 GASTROPARESIS 01/23/2019 RODOLFO CUELLO MD Ot M54.2 CERVICALGIA 01/23/2019 RODOLFO CUELLO MD Ot N40.0 BENIGN PROSTATIC HYPERPLASIA WITHOUT LOW 01/23/2019 RODOLFO CUELLO MD Ot R13.10 DYSPHAGIA, UNSPECIFIED 01/23/2019 RODOLFO CUELLO MD, Ot R41.82 ALTERED MENTAL STATUS, UNSPECIFIED 01/23/2019 RODOLFO CUELLO MD, Ot 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 01/23/2019 RODOLFO CUELLO MD Ot Z82.49 FAMILY HX OF ISCHEM HEART DIS AND OTH DI 01/23/2019 RODOLFO CUELLO MD Ot Z86.010 PERSONAL HISTORY OF COLONIC POLYPS 01/23/2019 RODOLFO CUELLO MD Ot Z86.73 PRSNL HX OF TIA (TIA), AND CEREB INFRC W 01/23/2019 RODOLFO CUELLO MD, Ot Z87.19 PERSONAL HISTORY OF OTHER DISEASES OF TH 01/23/2019 RODOLFO CUELLO MD Ot Z87.891 PERSONAL HISTORY OF NICOTINE DEPENDENCE 01/23/2019 RODOLFO CUELLO MD Ot Z88.0 ALLERGY STATUS TO PENICILLIN 01/23/2019 RODOLFO CUELLO MD Ot Z88.1 ALLERGY STATUS TO OTHER ANTIBIOTIC AGENT 01/23/2019 RODOLFO CUELLO MD, Ot Z88.5 ALLERGY STATUS TO NARCOTIC AGENT STATUS 01/23/2019 RODOLFO CUELLO MD Ot Z88.8 ALLERGY STATUS TO OTH DRUG/MEDS/BIOL SUB 01/23/2019 RODOLFO CUELLO MD Ot Z95.1 PRESENCE OF AORTOCORONARY BYPASS GRAFT 01/23/2019 RODOLFO CUELLO MD Ot 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 IMPLANT 01/28/2019 IRAJ HERRERA MD Ot D50. 8 OTHER IRON DEFICIENCY ANEMIAS 01/28/2019 IRAJ HERRERA MD Ot I95. 89 OTHER HYPOTENSION 01/28/2019 IRAJ HERRERA MD Ot R53. 83 OTHER FATIGUE 01/28/2019 SARAH CALLAWAY MD Ot Z01.81 8 ENCOUNTER FOR OTHER PREPROCEDURAL EXAMIN 01/29/2019 SARAH CALLAWAY MD Ot E11.9 TYPE 2 DIABETES MELLITUS WITHOUT COMPLIC 01/29/2019 SARAH CALLAWAY MD Ot E78.00 PURE HYPERCHOLESTEROLEMIA, UNSPECIFIED 01/29/2019 SARAH CALLAWAY MD Ot I10 ESSENTIAL (PRIMARY) HYPERTENSION 01/29/2019 SARAH CALLAWAY MD, Ot I25.10 ATHSCL HEART DISEASE OF [place] CORONARY 01/29/2019 SARAH CALLAWAY MD, Ot I25.2 [...] LOW 01/29/2019 SARAH CALLAWAY MD, Ot 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 01/29/2019 SARAH CALLAWAY MD, Ot Z79.84 [facility] (CURRENT) USE OF ORAL HYPOGLYC 01/29/2019 SARAH CALLAWAY MD, Ot Z79.89 9 OTHER SENIOR STORAGE 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) DRUG THERAPY 01/29/2019 SARAH CALLAWAY MD, [...] Z88.8 ALLERGY STATUS TO OTH DRUG/MEDS/BIOL SUB 01/29/2019 SARAH CALLAWAY MD, Ot Z90.49 ACQUIRED ABSENCE OF OTHER SPECIFIED PART 01/29/2019 SARAH CALLAWAY MD, Ot Z95.1 PRESENCE OF AORTOCORONARY BYPASS GRAFT 01/29/2019 SARAH CALLAWAY MD, Ot 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 01/29/2019 SARAH CALLAWAY MD, Ot Z01.81 8 ENCOUNTER FOR OTHER PREPROCEDURAL EXAMIN 01/29/2019 SARAH CALLAWAY MD, Ot Z01.81 8 ENCOUNTER FOR OTHER PREPROCEDURAL EXAMIN 02/03/2019 SARAH CALLAWAY MD, Ot Z01.81 8 ENCOUNTER FOR OTHER PREPROCEDURAL EXAMIN 02/12/2019 SARAH CALLAWAY MD, Ot E11.9 TYPE 2 DIABETES MELLITUS WITHOUT COMPLIC 02/12/2019 SARAH CALLAWAY MD, Ot E78.00 PURE HYPERCHOLESTEROLEMIA, UNSPECIFIED 02/12/2019 SARAH CALLAWAY MD, Ot I10 ESSENTIAL (PRIMARY) HYPERTENSION 02/12/2019 SARAH CALLAWAY MD, Ot I25.10 ATHSCL HEART DISEASE OF [place] CORONARY 02/12/2019 SARAH CALLAWAY MD, Ot I25.2 [...] LOW 02/12/2019 SARAH CALLAWAY MD, Ot Z79.01 [facility] (CURRENT) USE OF ANTICOAGULANT 02/12/2019 SARAH CALLAWAY MD, Ot 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 02/12/2019 SARAH CALLAWAY MD, Ot Z79.89 9 OTHER SENIOR STORAGE 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) DRUG THERAPY 02/12/2019 SARAH CALLAWAY MD, [...] Ot I25. 10 ATHSCL HEART DISEASE OF [place] CORONARY 02/18/2019 WENDY SARMIENTO MD Ot I25. [...] 02/18/2019 WENDY SARMIENTO MD Ot Z79. 4 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 02/18/2019 WENDY SARMIENTO [...] Ot I25. 10 ATHSCL HEART DISEASE OF [place] CORONARY 02/24/2019 WENDY SARMIENTO MD Ot I25. 2 OLD MYOCARDIAL INFARCTION 02/24/2019 WENDY SARMIENTO MD Ot I48. 91 UNSPECIFIED ATRIAL FIBRILLATION 02/24/2019 WENDY SARMIENTO MD, Ot J44. 9 CHRONIC OBSTRUCTIVE PULMONARY DISEASE, U 02/24/2019 WENDY SARMIENTO MD Ot K21. 9 GASTRO-ESOPHAGEAL REFLUX DISEASE WITHOUT 02/24/2019 WENDY SARMIENTO MD Ot K31. 84 GASTROPARESIS 02/24/2019 WENDY SARMIENTO MD Ot N40. 0 BENIGN PROSTATIC HYPERPLASIA WITHOUT LOW 02/24/2019 WENDY SARMIENTO MD Ot R11. 2 NAUSEA WITH VOMITING, UNSPECIFIED 02/24/2019 WENDY SARMIENTO MD Ot Z79. 4 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 02/24/2019 WENDY SARMIENTO MD Ot Z82. 49 FAMILY HX OF [place] HEART DIS AND OTH DI 02/24/2019 WENDY SARMIENTO MD Ot Z86.010 PERSONAL HISTORY OF COLONIC POLYPS 02/24/2019 WENDY SARMIENTO MD Ot Z86. 73 PRSNL HX OF TIA (TIA), AND CEREB INFRC W 02/24/2019 WENDY SARMIENTO MD Ot Z87.891 PERSONAL HISTORY OF NICOTINE DEPENDENCE 02/24/2019 WENDY SARMIENTO MD Ot Z88. 0 ALLERGY STATUS TO PENICILLIN 02/24/2019 WENDY SARMIENTO MD Ot Z88. 5 ALLERGY STATUS TO NARCOTIC AGENT STATUS 02/24/2019 WENDY SARMIENTO MD Ot Z88. 6 ALLERGY STATUS TO ANALGESIC AGENT STATUS 02/24/2019 WENDY SARMIENTO MD Ot Z95. 1 PRESENCE OF AORTOCORONARY BYPASS GRAFT 02/24/2019 WENDY SARMIENTO MD Ot Z95. 5 PRESENCE OF CORONARY ANGIOPLASTY IMPLANT 02/24/2019 WENDY SARMIENTO MD Ot Z96.653 PRESENCE OF ARTIFICIAL KNEE JOINT, BILAT 03/15/2019 RODOLFO CUELLO MD Ot E11.9 TYPE 2 DIABETES MELLITUS WITHOUT COMPLIC 03/15/2019 RODOLFO CUELLO MD Ot E78.00 PURE HYPERCHOLESTEROLEMIA, UNSPECIFIED 03/15/2019 RODOLFO CUELLO MD Ot F41.9 ANXIETY DISORDER, UNSPECIFIED 03/15/2019 RODOLFO CUELLO MD, Ot I10 ESSENTIAL (PRIMARY) HYPERTENSION 03/15/2019 RODOLFO CUELLO MD, Ot I25.10 ATHSCL HEART DISEASE OF [place] CORONARY 03/15/2019 RODOLFO CUELLO MD, Ot I25.2 OLD MYOCARDIAL INFARCTION 03/15/2019 RODOLFO CUELLO MD, Ot I48.91 UNSPECIFIED ATRIAL FIBRILLATION 03/15/2019 RODOLFO CUELLO MD, Ot I48.92 UNSPECIFIED ATRIAL FLUTTER 03/15/2019 RODOLFO CUELLO MD, Ot J44.9 CHRONIC OBSTRUCTIVE PULMONARY DISEASE, U 03/15/2019 RODOLFO CUELLO MD, Ot K21.9 GASTRO-ESOPHAGEAL REFLUX DISEASE WITHOUT 03/15/2019 RODOLFO CUELLO MD, Ot 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 03/15/2019 RODOLFO CUELLO MD, Ot 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 03/15/2019 RODOLFO CUELLO [...] Z88.8 ALLERGY STATUS TO OT DRUG/MEDS/BIOL SUB 03/15/2019 RODOLFO CUELLO MD, Ot Z95.1 PRESENCE OF AORTOCORONARY BYPASS GRAFT 03/15/2019 RODOLFO CUELLO MD, Ot 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 IMPLANT 03/15/2019 RODOLFO CUELLO MD, Ot Z96.653 PRESENCE OF ARTIFICIAL KNEE JOINT, BILAT 03/18/2019 RODOLFO CUELLO MD, Ot E11.9 TYPE 2 DIABETES MELLITUS WITHOUT COMPLIC 03/18/2019 RODOLFO CUELLO MD, Ot E78.00 PURE HYPERCHOLESTEROLEMIA, UNSPECIFIED 03/18/2019 RODOLFO CUELLO MD, Ot F41.9 ANXIETY DISORDER, UNSPECIFIED 03/18/2019 RODOLFO CUELLO MD, Ot I10 ESSENTIAL (PRIMARY) HYPERTENSION 03/18/2019 RODOLFO CUELLO MD, Ot I25.10 ATHSCL HEART DISEASE OF [place] CORONARY 03/18/2019 RODOLFO CUELLO MD, Ot I25.2 OLD MYOCARDIAL INFARCTION 03/18/2019 RODOLFO CUELLO MD, Ot I48.91 UNSPECIFIED ATRIAL FIBRILLATION 03/18/2019 RODOLFO CUELLO MD, Ot I48.92 UNSPECIFIED ATRIAL FLUTTER 03/18/2019 RODOLFO CUELLO MD, Ot J44.9 CHRONIC OBSTRUCTIVE PULMONARY DISEASE, U 03/18/2019 RODOLFO CUELLO MD, Ot K21.9 GASTRO-ESOPHAGEAL REFLUX DISEASE WITHOUT 03/18/2019 RODOLFO CUELLO MD, Ot Z79.01 [facility] (CURRENT) USE OF ANTICOAGULANT 03/18/2019 RODOLFO CUELLO MD, Ot Z79.4 [facility] (CURRENT) USE OF INSULIN 03/18/2019 RODOLFO CUELLO [...] Z88.8 ALLERGY STATUS TO OTH DRUG/MEDS/BIOL SUB 03/18/2019 RODOLFO CUELLO MD, Ot [...] MD, Ot I25.10 ATHSCL HEART DISEASE OF [place] CORONARY 03/22/2019 RODOLFO CUELLO MD, Ot I25.2 OLD MYOCARDIAL INFARCTION 03/22/2019 RODOLFO CUELLO MD, Ot I48.91 UNSPECIFIED ATRIAL FIBRILLATION 03/22/2019 RODOLFO CUELLO MD, Ot I48.92 UNSPECIFIED ATRIAL FLUTTER 03/22/2019 RODOLFO CUELLO MD, Ot J44.9 CHRONIC OBSTRUCTIVE PULMONARY DISEASE, U 03/22/2019 RODOLFO CUELLO MD, Ot K21.9 GASTRO-ESOPHAGEAL REFLUX DISEASE WITHOUT 03/22/2019 RODOLFO CUELLO MD, Ot 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 03/22/2019 RODOLFO CUELLO MD, Ot 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 03/22/2019 RODOLFO CUELLO [...] CUELLO MD, Ot Z88.8 ALLERGY STATUS TO [facility] DRUG/MEDS/BIOL SUB 03/22/2019 RODOLFO CUELLO MD, Ot Z95.1 PRESENCE OF AORTOCORONARY BYPASS GRAFT 03/22/2019 RODOLFO CUELLO MD, Ot 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 IMPLANT 03/22/2019 RODOLFO CUELLO MD, Ot Z96.653 PRESENCE OF ARTIFICIAL KNEE JOINT, BILAT 03/26/2019 RODOLFO CUELLO MD, Ot E11.9 TYPE 2 DIABETES MELLITUS WITHOUT COMPLIC 03/26/2019 RODOLFO CUELLO MD, Ot E78.00 PURE HYPERCHOLESTEROLEMIA, UNSPECIFIED 03/26/2019 RODOLFO CUELLO MD, Ot F41.9 ANXIETY DISORDER, UNSPECIFIED 03/26/2019 RODOLFO CUELLO MD, Ot I10 ESSENTIAL (PRIMARY) HYPERTENSION 03/26/2019 RODOLFO CUELLO MD, Ot I25.10 ATHSCL HEART DISEASE OF [place] CORONARY 03/26/2019 RODOLFO CUELLO MD, Ot I25.2 OLD MYOCARDIAL INFARCTION 03/26/2019 RODOLFO CUELLO MD, Ot I48.91 UNSPECIFIED ATRIAL FIBRILLATION 03/26/2019 RODOLFO CUELLO MD, Ot I48.92 UNSPECIFIED ATRIAL FLUTTER 03/26/2019 RODOLFO CUELLO MD, Ot J44.9 CHRONIC OBSTRUCTIVE PULMONARY DISEASE, U 03/26/2019 ORDOLFO CUELLO MD, Ot K21.9 GASTRO-ESOPHAGEAL REFLUX DISEASE WITHOUT 03/26/2019 RODOLFO CUELLO MD, Ot Z79.01 [facility] (CURRENT) USE OF ANTICOAGULANT 03/26/2019 ORDOLFO CUELLO MD, Ot 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 03/26/2019 RODOLFO CUELLO MD, Ot Z82.49 FAMILY HX [...] TO ANALGESIC AGENT STATUS 03/26/2019 RODOLFO CUELLO MD, Ot Z88.8 ALLERGY STATUS TO OTH DRUG/MEDS/BIOL SUB 03/26/2019 RODOLFO CUELLO MD Ot Z95.1 PRESENCE OF AORTOCORONARY BYPASS GRAFT 03/26/2019 RODOLFO CUELLO MD Ot 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 IMPLANT 03/26/2019 RODOLFO CUELLO MD Ot Z96.653 PRESENCE OF ARTIFICIAL KNEE JOINT, BILAT 03/28/2019 RODOLFO CUELLO MD Ot E11.9 TYPE 2 DIABETES MELLITUS WITHOUT COMPLIC 03/28/2019 RODOLFO CUELLO MD Ot E78.00 PURE HYPERCHOLESTEROLEMIA, UNSPECIFIED 03/28/2019 RODOLFO CUELLO MD Ot F41.9 ANXIETY DISORDER, UNSPECIFIED 03/28/2019 RODOLFO CUELLO MD Ot I10 ESSENTIAL (PRIMARY) HYPERTENSION 03/28/2019 RODOLFO CUELLO MD, Ot I25.10 ATHSCL HEART DISEASE OF [place] CORONARY 03/28/2019 RODOLFO CUELLO MD, Ot I25.2 OLD MYOCARDIAL INFARCTION 03/28/2019 RODOLFO CUELLO MD Ot I48.91 UNSPECIFIED ATRIAL FIBRILLATION 03/28/2019 RODOLFO CUELLO MD Ot I48.92 UNSPECIFIED ATRIAL FLUTTER 03/28/2019 RODOLFO CUELLO MD, Ot J44.9 CHRONIC OBSTRUCTIVE PULMONARY DISEASE, U 03/28/2019 RODOLFO CUELLO MD Ot K21.9 GASTRO-ESOPHAGEAL REFLUX DISEASE WITHOUT 03/28/2019 RODOLFO CUELLO MD Ot Z79.01 [facility] (CURRENT) USE OF ANTICOAGULANT 03/28/2019 RODOLFO CUELLO MD Ot Z79.4 [facility] (CURRENT) USE OF INSULIN 03/28/2019 RODOLFO CUELLO MD Ot Z82.49 FAMILY HX OF ISCHEM HEART DIS AND OTH DI 03/28/2019 KHUSHBOO DOUGHERTY, RODOLFO Mendieta Ot Z86.73 PRSNL HX OF TIA (TIA), AND CEREB INFRC W 03/28/2019 KHUSHBOO DOUGHERTY, RODOLFO Mendieta Ot Z87.891 PERSONAL HISTORY OF NICOTINE DEPENDENCE 03/28/2019 KHUSHBOO DOUGHERTY, RODOLFO Mendieta Ot Z88.0 ALLERGY STATUS TO PENICILLIN 03/28/2019 RODOLFO CUELLO MD Ot Z88.6 ALLERGY STATUS TO ANALGESIC AGENT STATUS 03/28/2019 RODOLFO CUELLO MD, Ot Z88.8 ALLERGY STATUS TO OTH DRUG/MEDS/BIOL SUB 03/28/2019 RODOLFO CUELLO MD, Ot Z95.1 PRESENCE OF AORTOCORONARY BYPASS GRAFT 03/28/2019 RODOLFO CUELLO MD Ot 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 IMPLANT 03/28/2019 RODOLFO CUELLO MD Ot Z96.653 PRESENCE OF ARTIFICIAL KNEE JOINT, BILAT 04/06/2019 LEONARDO SALGADO APRN Ot E11.43 TYPE 2 DIABETES W DIABETIC AUTONOMIC (PO 04/06/2019 LEONARDO SALGADO APRN Ot E78.00 PURE HYPERCHOLESTEROLEMIA, UNSPECIFIED 04/06/2019 LEONARDO SALGADO APRN Ot F41 .9 ANXIETY DISORDER, UNSPECIFIED 04/06/2019 LEONARDO SALGADO APRN Ot I10 ESSENTIAL (PRIMARY) HYPERTENSION 04/06/2019 LEONARDO SALGADO APRN Ot I25.10 ATHSCL HEART DISEASE OF [place] CORONARY 04/06/2019 LEONARDO SALGADO APRN Ot 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 04/06/2019 LEONARDO SALGADO APRN Ot I48.91 UNSPECIFIED ATRIAL FIBRILLATION 04/06/2019 LEONARDO SALGADO APRN Ot J44 .9 CHRONIC OBSTRUCTIVE PULMONARY DISEASE, U 04/06/2019 LEONARDO SALGADO APRN Ot K21 .9 GASTRO-ESOPHAGEAL REFLUX DISEASE WITHOUT 04/06/2019 LEONARDO SALGADO APRN Ot K31.84 GASTROPARESIS 04/06/2019 LEONARDO SALGADO APRN Ot M54.16 RADICULOPATHY, LUMBAR REGION 04/06/2019 LEONARDO SALGADO APRN Ot M54 .9 DORSALGIA, UNSPECIFIED 04/06/2019 LEONARDO SALGADO APRN Ot 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 04/06/2019 LEONARDO SALGADO APRN Ot Z79 .4 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 04/06/2019 LEONARDO SALGADO [...] .8 ALLERGY STATUS TO OTH DRUG/MEDS/BIOL SUB 04/06/2019 LEONARDO SALGADO APRN Ot [...] APRN Ot I25.10 ATHSCL HEART DISEASE OF [place] CORONARY 04/09/2019 LEONARDO SALGADO APRN Ot I25 [...] UNSPECIFIED 04/09/2019 LEONARDO SALGADO APRN Ot Z79.01 [facility] (CURRENT) USE OF ANTICOAGULANT 04/09/2019 LEONARDO SALGADO APRN Ot Z79 .4 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 04/09/2019 LEONARDO SALGADO APRN Ot Z82.49 FAMILY HX OF ISCHEM HEART DIS AND OTH DI 04/09/2019 LEONARDO SALGADO APRN Ot Z86.73 PRSNL HX OF TIA (TIA), AND CEREB INFRC W 04/09/2019 LEONARDO SALGADO APRN Ot Z87.891 PERSONAL HISTORY OF NICOTINE DEPENDENCE 04/09/2019 LEONARDO SALGADO APRN Ot Z88 .0 ALLERGY STATUS TO PENICILLIN 04/09/2019 LEONARDO SALGADO APRN Ot Z88 .6 ALLERGY STATUS TO ANALGESIC AGENT STATUS 04/09/2019 LEONARDO SALGADO APRN Ot Z88 .8 ALLERGY STATUS TO OT DRUG/MEDS/BIOL SUB 04/09/2019 LEONARDO SALGADO APRN Ot 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 04/09/2019 LEONARDO SALGADO APRN Ot Z95 .5 PRESENCE OF CORONARY ANGIOPLASTY IMPLANT 05/29/2019 LLUVIA ROUSE DO Ot 272.4 HYPERLIPIDEMIA NEC/NOS 05/29/2019 LLUVIA ROUSE DO Ot 789.00 ABDOMINAL PAIN, UNSPECIFIED SITE 05/29/2019 BOCA RATON DO, ELENI Gonzalez Ot 715.36 LOC OSTEOARTH NOS-L/LEG 05/29/2019 BOCA RATON DO, ELENI Carlos Ot 717.3 DERANG MED MENISCUS NEC 05/29/2019 BOCA RATON DO, ELENI Carlos Ot 719.06 JOINT EFFUSION-L/LEG 05/29/2019 BOCA RATON DO, ELENI Carlos Ot 726.65 PREPATELLAR BURSITIS 05/29/2019 [facility], ELENI Gonzalez Ot 715.36 LOC OSTEOARTH NOS-L/LEG 05/29/2019 [facility], ELENI Gonzalez Ot 717.3 DERANG MED MENISCUS NEC 05/29/2019 JOSE DOUGHERTY, BISI Colon Ot E78. 2 MIXED HYPERLIPIDEMIA 05/29/2019 JOSE DOUGHERTY, BISI Colon Ot I10 ESSENTIAL (PRIMARY) HYPERTENSION 05/29/2019 BISI GARCIA MD Ot I25. 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 05/29/2019 NIESHA DOUGHERTY, LEN Sanchez Ot R13.10 DYSPHAGIA, UNSPECIFIED 05/29/2019 NIESHA DOUGHERTY, LEN Sanchez Ot Z01.818 ENCOUNTER FOR OTHER PREPROCEDURAL EXAMIN 05/29/2019 NIESHA DOUGHERTY, LEN Sanchez Ot K29.80 DUODENITIS WITHOUT BLEEDING 05/29/2019 GELLENDER DO, LLUVIA Bernal Ot M54.5 LOW BACK PAIN 05/29/2019 GELLENDER DO, LLUVIA A Ot R14.0 ABDOMINAL DISTENSION (GASEOUS) 05/29/2019 GELLENDER DO, LLUVIA A Ot R10.9 UNSPECIFIED ABDOMINAL PAIN 05/29/2019 GELLENDER DO, LLUVIA A Ot K29.80 DUODENITIS WITHOUT BLEEDING 05/29/2019 GELLENDER DO, LLUVIA A Ot K85.90 ACUTE PANCREATITIS WITHOUT NECROSIS OR I 05/29/2019 SHARON DOUGHERTY, IRAJ Law Ot M47.814 SPONDYLOSIS W/O MYELOPATHY OR RADICULOPA 05/29/2019 IRAJ HERRERA MD Ot M47.816 SPONDYLOSIS W/O MYELOPATHY OR RADICULOPA 05/29/2019 IRAJ HERRERA MD Ot M48.56XA COLLAPSED VERTEBRA, NEC, LUMBAR REGION, 05/29/2019 Ot R05 COUGH 05/29/2019 IRAJ HERRERA MD Ot 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 81 PERSONAL HISTORY OF (HEALED) TRAUMATIC F 05/29/2019 BISI GARCIA MD Ot E78. 5 HYPERLIPIDEMIA, UNSPECIFIED 05/29/2019 BISI GARCIA MD Ot I07. 1 RHEUMATIC TRICUSPID INSUFFICIENCY 05/29/2019 BISI GARCIA MD Ot I25. 10 ATHSCL HEART DISEASE OF [place] CORONARY 05/29/2019 BISI GARCIA MD Ot I48. 0 PAROXYSMAL ATRIAL FIBRILLATION 05/29/2019 BISI GARCIA MD Ot I73. 9 PERIPHERAL VASCULAR DISEASE, UNSPECIFIED 05/29/2019 BISI GARCIA MD Ot K21. 9 GASTRO-ESOPHAGEAL REFLUX DISEASE WITHOUT 05/29/2019 SHARON DOUGHERTY, IRAJ Law Ot D50. 8 [...] Ot 717.3 DERANG MED MENISCUS NEC 06/03/2019 BISI GARCIA MD Ot E78. 2 MIXED HYPERLIPIDEMIA 06/03/2019 BISI GARCIA MD Ot I10 ESSENTIAL (PRIMARY) HYPERTENSION 06/03/2019 BISI GARCIA MD Ot I25. 10 ATHSCL HEART DISEASE OF [place] CORONARY 06/03/2019 BISI GARCIA MD Ot I65. 23 OCCLUSION AND STENOSIS OF [place] 06/03/2019 NIESHA DOUGHERTY, LEN Sanchez Ot R13.10 DYSPHAGIA, UNSPECIFIED 06/03/2019 LEN SCHERER MD Ot Z01.818 ENCOUNTER FOR OTHER PREPROCEDURAL EXAMIN 06/03/2019 SCHERER MD, LEN M Ot K29.80 DUODENITIS WITHOUT BLEEDING 06/03/2019 GELLENDER DO, LLUVIA Bernal Ot M54.5 LOW BACK PAIN 06/03/2019 GELLENDER DO, LLUVIA Bernal Ot R14.0 ABDOMINAL DISTENSION (GASEOUS) 06/03/2019 GELLENDER DO, LLUVIA Bernal Ot R10.9 UNSPECIFIED ABDOMINAL PAIN 06/03/2019 GELLENDER DO, LLUVIA Bernal Ot K29.80 DUODENITIS WITHOUT BLEEDING 06/03/2019 [facility] LLUVIA Bernal Ot K85.90 ACUTE PANCREATITIS WITHOUT NECROSIS OR I 06/03/2019 SHARON DOUGHERTY, IRAJ Law Ot 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 10 ATHSCL HEART DISEASE OF [place] CORONARY 06/03/2019 BISI GARCIA MD Ot I48. 0 PAROXYSMAL ATRIAL FIBRILLATION 06/03/2019 BISI GARCIA MD Ot I73. 9 PERIPHERAL VASCULAR DISEASE, UNSPECIFIED 06/03/2019 JOSE DOUGHERTY, BISI Colon Ot K21. 9 GASTRO-ESOPHAGEAL REFLUX DISEASE WITHOUT 06/03/2019 SHARON DOUGHERTY, IRAJ Law Ot D50. 8 OTHER IRON DEFICIENCY ANEMIAS 06/03/2019 SHARON DOUGHERTY, IRAJ Law Ot I95. 89 OTHER HYPOTENSION 06/03/2019 SHARON DOUGHERTY, IRAJ Law Ot R53. 83 OTHER FATIGUE 06/03/2019 GELLENDER [...] Colon Ot I10 ESSENTIAL (PRIMARY) HYPERTENSION 06/03/2019 JOSE DOUGHERTY, BISI Colon Ot I25. 10 ATHSCL HEART DISEASE OF [place] CORONARY 06/03/2019 JOSE DOUGHERTY, BISI Colon Ot [...] Bernal Ot K29.80 DUODENITIS WITHOUT BLEEDING 06/03/2019 PADMA RIVERA LLUVIA Gabe Ot K85.90 ACUTE PANCREATITIS WITHOUT NECROSIS OR I 06/03/2019 IRAJ HERRERA MD, Ot 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 10 ATHSCL HEART DISEASE OF [place] CORONARY 06/03/2019 BISI GARCIA MD Ot I48. 0 PAROXYSMAL ATRIAL FIBRILLATION 06/03/2019 BISI GARCIA MD Ot I73. 9 PERIPHERAL VASCULAR DISEASE, UNSPECIFIED 06/03/2019 BISI GARCIA MD Ot K21. 9 GASTRO-ESOPHAGEAL REFLUX DISEASE WITHOUT 06/03/2019 IRAJ HERRERA MD, Ot D50. 8 OTHER IRON DEFICIENCY ANEMIAS 06/03/2019 IRAJ HERRERA MD, Ot I95. 89 OTHER HYPOTENSION 06/03/2019 IRAJ HERRERA MD Ot R53. 83 OTHER FATIGUE 06/16/2019 Jamin Muller W 784.7 EPISTAXIS 06/16/2019 YohanaJamin W 802.7 ORBITAL FLOOR (BLOW-OUT) OPEN FRACTURE 06/16/2019 Jamin Muller W 802.8 OTHER FACIAL BONES CLOSED FRACTURE 06/16/2019 MargieJamin banda W 910.0 ABRASION OR FRICTION BURN OF FACE, NECK, AND SCALP EXCEPT EYE, WITHOUT MENTION OF INFECTION 06/16/2019 Jamin Muller W R04.0 EPISTAXIS 06/16/2019 Jamin Muller S00.81XA ABRASION OF OTHER PART OF HEAD, INITIAL ENCOUNTER 06/16/2019 Jamin Muller S02.31XA FRACTURE OF ORBITAL FLOOR, RIGHT SIDE, INIT 06/16/2019 Jamin Muller S02.841A FRACTURE OF LATERAL ORBITAL WALL, RIGHT SIDE, INIT 06/19/2019 LEISURE, BENCOCOGabe Faith 784.7 EPISTAXIS 06/19/2019 LEISURE, JASPER Faith R04.0 EPISTAXIS 07/18/2019 GELLENDER DO, LLUVIA Bernal [...] Ot I25. 10 ATHSCL HEART DISEASE OF [place] CORONARY 07/18/2019 BISI GARCIA MD Ot I65. 23 OCCLUSION [...] DUODENITIS WITHOUT BLEEDING 07/18/2019 GELLENDER DO, LLUVIA Gabe Ot K85.90 ACUTE PANCREATITIS WITHOUT NECROSIS OR I 07/18/2019 SHARON DOUGHERTY, IRAJ Law Ot M47.814 SPONDYLOSIS W/O MYELOPATHY OR RADICULOPA 07/18/2019 IRAJ HERRERA MD, Ot M47.816 SPONDYLOSIS W/O MYELOPATHY OR RADICULOPA 07/18/2019 IRAJ HERRERA MD, Ot M48.56XA COLLAPSED VERTEBRA, NEC, LUMBAR REGION, 07/18/2019 Ot R05 COUGH 07/18/2019 SHARON DOUGHERTY, IRAJ Law Ot M48. 12 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], CER 07/18/2019 RIAJ HERRERA MD, Ot M89. 9 DISORDER OF BONE, UNSPECIFIED 07/18/2019 JONATHAN DOUGHERTY, MATTEO Joseph Ot I12 .9 HYPERTENSIVE CHRONIC KIDNEY DISEASE W ST 07/18/2019 MATTEO CASTILLO MD Ot N18 .3 CHRONIC KIDNEY DISEASE, STAGE 3 (MODERAT 07/18/2019 IRAJ HERRERA MD, Ot M47.814 SPONDYLOSIS W/O MYELOPATHY OR RADICULOPA 07/18/2019 IRAJ HERRERA MD, Ot M47.816 SPONDYLOSIS W/O MYELOPATHY OR RADICULOPA 07/18/2019 IRAJ HERRERA MD, Ot Z87. 81 PERSONAL HISTORY OF (HEALED) TRAUMATIC F 07/18/2019 JOSE DOUGHERTY, BISI Colon Ot E78. 5 HYPERLIPIDEMIA, UNSPECIFIED 07/18/2019 JOSE DOUGHERTY, BISI Colon Ot I07. 1 RHEUMATIC TRICUSPID INSUFFICIENCY 07/18/2019 BISI GARCIA MD Ot I25. 10 ATHSCL HEART DISEASE OF [place] CORONARY 07/18/2019 BISI GARCIA MD Ot I48. 0 PAROXYSMAL ATRIAL FIBRILLATION 07/18/2019 BISI GARCIA MD Ot I73. 9 PERIPHERAL VASCULAR DISEASE, UNSPECIFIED 07/18/2019 BISI GARCIA MD Ot K21. 9 GASTRO-ESOPHAGEAL REFLUX DISEASE WITHOUT 07/18/2019 IRAJ HERRERA MD Ot D50. 8 OTHER IRON DEFICIENCY ANEMIAS 07/18/2019 IRAJ HERRERA MD Ot I95. 89 OTHER HYPOTENSION 07/18/2019 IRAJ HERRERA MD C Ot R53. 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 07/18/2019 LEONARDO SALGADO APRN Ot I48.91 UNSPECIFIED ATRIAL FIBRILLATION 07/18/2019 LEONARDO SALGADO APRN, Ot J44 .9 CHRONIC OBSTRUCTIVE PULMONARY DISEASE, U 07/18/2019 LEONARDO SALGADO APRN Ot K21 .9 GASTRO-ESOPHAGEAL REFLUX DISEASE WITHOUT 07/18/2019 LEONARDO SALGADO APRN Ot K31.84 GASTROPARESIS 07/18/2019 LEONARDO SALGADO APRN Ot M54 .9 DORSALGIA, UNSPECIFIED 07/18/2019 LEONARDO SALGADO APRN Ot S39.012A STRAIN OF MUSCLE, FASCIA AND TENDON OF L 07/18/2019 LEONARDO SALGADO APRN Ot X58.XXXA EXPOSURE TO OTHER SPECIFIED FACTORS, INI 07/18/2019 LEONARDO SALGADO APRN Ot Z79.01 [facility] (CURRENT) USE OF ANTICOAGULANT 07/18/2019 LEONARDO SALGADO APRN Ot Z79 .4 [facility] (CURRENT) USE OF INSULIN 07/18/2019 LEONARDO SALGADO APRN Ot 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 07/18/2019 SALGADO, PETER J MECHANIC RECOVERY Ot Z82.49 FAMILY HX OF ISCHEM HEART DIS AND OTH DI 07/18/2019 LEONARDO SALGADO APRN Ot Z86.73 PRSNL HX OF TIA (TIA), AND CEREB INFRC W 07/18/2019 LEONARDO SALGADO APRN Ot Z87.891 PERSONAL HISTORY OF NICOTINE DEPENDENCE 07/18/2019 LEONARDO SALGADO APRN Ot Z88 .0 ALLERGY STATUS TO PENICILLIN 07/18/2019 LEONARDO SALGADO APRN Ot Z88 .6 ALLERGY STATUS TO ANALGESIC AGENT STATUS 07/18/2019 LEONARDO SALGADO APRN Ot Z88 .8 ALLERGY STATUS TO OTH DRUG/MEDS/BIOL SUB 07/18/2019 LEONARDO SALGADO APRN Ot 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 DUODENITIS WITHOUT BLEEDING 11/07/2019 GELLENDER DO, LLUVIA Bernal Ot M54.5 LOW BACK PAIN 11/07/2019 GELLENDER DO, LLUVIA Bernal Ot R14.0 ABDOMINAL DISTENSION (GASEOUS) 11/07/2019 GELLENDER DO, LLUVIA Bernal Ot R10.9 UNSPECIFIED ABDOMINAL PAIN 11/07/2019 GELLENDER DO, LLUVIA Bernal Ot K29.80 DUODENITIS WITHOUT BLEEDING 11/07/2019 GELLENDER DO, LLUVIA Gabe Ot K85.90 ACUTE PANCREATITIS WITHOUT NECROSIS OR I 11/07/2019 SHARON DOUGHERTY, IRAJ Law Ot M47.814 SPONDYLOSIS W/O MYELOPATHY OR RADICULOPA 11/07/2019 IRAJ HERRERA MD, Ot M47.816 SPONDYLOSIS W/O MYELOPATHY OR RADICULOPA 11/07/2019 SHARON DOUGHERTY, IRAJ Law Ot M48.56XA COLLAPSED VERTEBRA, NEC, LUMBAR REGION, 11/07/2019 Ot R05 COUGH 11/07/2019 SHARON DOUGHERTY, IRAJ Law Ot M48. 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 9 DISORDER OF BONE, UNSPECIFIED 11/07/2019 JONATHAN DOUGHERTY, MATTEO Joseph Ot I12 .9 HYPERTENSIVE CHRONIC KIDNEY DISEASE W ST 11/07/2019 MATTEO CASTILLO MD R Ot N18 .3 CHRONIC KIDNEY DISEASE, STAGE 3 (MODERAT 11/07/2019 SHARON DOUGHERTY, IRAJ Law Ot M47.814 SPONDYLOSIS W/O MYELOPATHY OR RADICULOPA 11/07/2019 IRAJ HERRERA MD Ot M47.816 SPONDYLOSIS W/O MYELOPATHY OR RADICULOPA 11/07/2019 IRAJ HERRERA MD Ot Z87. 81 PERSONAL HISTORY OF (HEALED) TRAUMATIC F 11/07/2019 JOSE DOUGHERTY, BISI Colon Ot E78. 5 HYPERLIPIDEMIA, UNSPECIFIED 11/07/2019 JOSE DOUGHERTY, BISI Colon Ot I07. 1 RHEUMATIC TRICUSPID INSUFFICIENCY 11/07/2019 BISI GARCIA MD Ot I25. 10 ATHSCL HEART DISEASE OF [place] CORONARY 11/07/2019 JOSE DOUGHERTY, BISI Colon Ot I48. 0 PAROXYSMAL ATRIAL FIBRILLATION 11/07/2019 JOSE DOUGHERTY, BISI Colon Ot I73. 9 PERIPHERAL VASCULAR DISEASE, UNSPECIFIED 11/07/2019 BISI GARCIA MD Ot K21. 9 GASTRO-ESOPHAGEAL REFLUX DISEASE WITHOUT 11/07/2019 SHARON DOUGHERTY, IRAJ Law Ot D50. 8 OTHER IRON DEFICIENCY ANEMIAS 11/07/2019 SHARON DOUGHERTY, IRAJ Law Ot I95. 89 OTHER HYPOTENSION 11/07/2019 SHARON DOUGHERTY, IRAJ Law Ot R53. 83 OTHER FATIGUE 11/17/2019 RONAL DO, ELENI F Ot 715.36 LOC [place] NOS-L/LEG 11/17/2019 RONAL DO, ELENI F Ot 717.3 DERANG MED MENISCUS NEC 11/17/2019 RONAL DO, ELENI F Ot 719.06 JOINT EFFUSION-L/LEG 11/17/2019 RONAL DO, ELENI F Ot 726.65 PREPATELLAR BURSITIS 11/17/2019 RONAL DO, ELENI F Ot 715.36 LOC OSTEO[place]TH NOS-L/LEG 11/17/2019 RONAL DO, ELENI F Ot 717.3 DERANG MED MENISCUS NEC 11/17/2019 JOSE DOUGHERTY, BISI Colon Ot E78. 2 MIXED HYPERLIPIDEMIA 11/17/2019 JOSE DOUGHERTY, BISI Colon Ot I10 ESSENTIAL (PRIMARY) HYPERTENSION 11/17/2019 JOSE DOUGHERTY, BISI Colon Ot I25. 10 ATHSCL HEART DISEASE OF [place] CORONARY 11/17/2019 BISI GARCIA MD Ot I65. 23 OCCLUSION AND STENOSIS OF [place] 11/17/2019 NIESHA DOUGHERTY, LEN Sanchez Ot R13.10 DYSPHAGIA, UNSPECIFIED 11/17/2019 NIESHA DOUGHERTY, LEN Sanchez Ot Z01.818 ENCOUNTER FOR OTHER PREPROCEDURAL EXAMIN 11/17/2019 NIESHA DOUGHERTY, LEN Sanchez Ot K29.80 DUODENITIS WITHOUT BLEEDING 11/17/2019 GELLENDER DO, LLUVIA Bernal Ot M54.5 LOW BACK PAIN 11/17/2019 GELLENDER DO, LLUVIA Bernal Ot R14.0 ABDOMINAL DISTENSION (GASEOUS) 11/17/2019 GELLENDER DO, LLUVIA Bernal Ot R10.9 UNSPECIFIED ABDOMINAL PAIN 11/17/2019 GELLENDER DO, LLUVIA Bernal Ot K29.80 DUODENITIS WITHOUT BLEEDING 11/17/2019 LLUVIA ROUSE DO Ot K85.90 ACUTE PANCREATITIS WITHOUT NECROSIS OR I 11/17/2019 IRAJ HERRERA MD, Ot M47.814 SPONDYLOSIS W/O MYELOPATHY OR RADICULOPA 11/17/2019 IRAJ HERRERA MD, Ot M47.816 SPONDYLOSIS W/O MYELOPATHY OR RADICULOPA 11/17/2019 IRAJ HERRERA MD, Ot M48.56XA COLLAPSED VERTEBRA, NEC, LUMBAR REGION, 11/17/2019 Ot R05 COUGH 11/17/2019 IRAJ HERRERA MD, Ot M48. 12 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], CER 11/17/2019 IRAJ HERRERA MD, Ot M89. 9 DISORDER OF BONE, UNSPECIFIED 11/17/2019 MATTEO CASTILLO MD, Ot I12 .9 HYPERTENSIVE CHRONIC KIDNEY DISEASE W ST 11/17/2019 MATTEO CASTILLO MD, Ot N18 .3 CHRONIC KIDNEY DISEASE, STAGE 3 (MODERAT 11/17/2019 IRAJ HERRERA MD, Ot M47.814 SPONDYLOSIS W/O MYELOPATHY OR RADICULOPA 11/17/2019 IRAJ HERRERA MD, Ot M47.816 SPONDYLOSIS W/O MYELOPATHY OR RADICULOPA 11/17/2019 IRAJ HERRERA MD, Ot Z87. 81 PERSONAL HISTORY OF (HEALED) TRAUMATIC F 11/17/2019 BISI GARCIA MD, Ot E78. 5 HYPERLIPIDEMIA, UNSPECIFIED 11/17/2019 BISI GARCIA MD Ot I07. 1 RHEUMATIC TRICUSPID INSUFFICIENCY 11/17/2019 BISI GARCIA MD, Ot I25. 10 ATHSCL HEART DISEASE OF [place] CORONARY 11/17/2019 BISI GARCIA MD, Ot I48. 0 PAROXYSMAL ATRIAL FIBRILLATION 11/17/2019 BISI GARCIA MD Ot I73. 9 PERIPHERAL VASCULAR DISEASE, UNSPECIFIED 11/17/2019 BISI GARCIA MD Ot K21. 9 GASTRO-ESOPHAGEAL REFLUX DISEASE WITHOUT 11/17/2019 IRAJ HERRERA MD, Ot D50. 8 OTHER IRON DEFICIENCY ANEMIAS 11/17/2019 IRAJ HERRERA MD, Ot I95. 89 OTHER HYPOTENSION 11/17/2019 IRAJ HERRERA MD, Ot R53. 83 OTHER FATIGUE 11/18/2019 BISI GARCIA MD, Ot Z01.812 ENCOUNTER FOR PREPROCEDURAL LABORATORY E 11/18/2019 JOSE DOUGHERTY, BISI Colon Ot Z20.828 CONTACT W AND EXPOSURE TO OTH VIRAL COMM 11/18/2019 JOSE DOUGHERTY, BISI Colon Ot Z53. 8 PROCEDURE AND TREATMENT NOT CARRIED OUT 12/01/2019 RONAL DO, ELENI F Ot 715.36 LOC OSTEO[place]TH NOS-L/LEG 12/01/2019 RONAL DO, ELENI F Ot 717.3 DERANG MED MENISCUS NEC 12/01/2019 RONAL DO, ELENI F Ot 719.06 JOINT EFFUSION-L/LEG 12/01/2019 RONAL DO, ELENI F Ot 726.65 PREPATELLAR BURSITIS 12/01/2019 RONAL DO, ELENI F Ot 715.36 LOC OSTEO[place]TH NOS-L/LEG 12/01/2019 RONAL DO, ELENI F Ot 717.3 DERANG MED MENISCUS NEC 12/01/2019 JOSE DOUGHERTY, BISI Colon Ot E78. 2 MIXED HYPERLIPIDEMIA 12/01/2019 JOSE DOUGHERTY, BISI Colon Ot I10 ESSENTIAL (PRIMARY) HYPERTENSION 12/01/2019 JOSE DOUGHERTY, BISI Colon Ot I25. 10 ATHSCL HEART DISEASE OF [place] CORONARY 12/01/2019 JOSE DOUGHERTY, BISI Colon Ot I65. 23 OCCLUSION AND STENOSIS OF [place] 12/01/2019 NIESHA DOUGHERTY, LEN Sanchez Ot R13.10 DYSPHAGIA, UNSPECIFIED 12/01/2019 NIESHA DOUGHERTY, LEN Sanchez Ot Z01.818 ENCOUNTER FOR OTHER PREPROCEDURAL EXAMIN 12/01/2019 NIESHA DOUGHERTY, LEN Sanchez Ot K29.80 DUODENITIS WITHOUT BLEEDING 12/01/2019 GELLENDER DO, LLUVIA Bernal Ot M54.5 LOW BACK PAIN 12/01/2019 GELLENDER DO, LLUVIA Bernal Ot R14.0 ABDOMINAL DISTENSION (GASEOUS) 12/01/2019 GELLENDER DO, LLUVIA Bernal Ot R10.9 UNSPECIFIED ABDOMINAL PAIN 12/01/2019 GELLENDER DO, LLUVIA Bernal Ot K29.80 DUODENITIS WITHOUT BLEEDING 12/01/2019 GELLENDER DO, LLUVIA Bernal Ot K85.90 ACUTE PANCREATITIS WITHOUT NECROSIS OR I 12/01/2019 SHARON DOUGHERTY, IRAJ Law Ot M47.814 SPONDYLOSIS W/O MYELOPATHY OR RADICULOPA 12/01/2019 IRAJ HERRERA MD Ot M47.816 SPONDYLOSIS W/O MYELOPATHY OR RADICULOPA 12/01/2019 SHARON DOUGHERTY, IRAJ Law Ot M48.56XA COLLAPSED VERTEBRA, NEC, LUMBAR REGION, 12/01/2019 Ot R05 COUGH 12/01/2019 SHARON DOUGHERTY, IRAJ Law Ot M48. 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 9 DISORDER OF BONE, UNSPECIFIED 12/01/2019 JONATHAN DOUGHERTY, MATTEO Joseph Ot I12 .9 HYPERTENSIVE CHRONIC KIDNEY DISEASE W ST 12/01/2019 MATTEO CASTILLO MD Ot N18 .3 CHRONIC KIDNEY DISEASE, STAGE 3 (MODERAT 12/01/2019 SHARON DOUGHERTY, IRAJ Law Ot M47.814 SPONDYLOSIS W/O MYELOPATHY OR RADICULOPA 12/01/2019 IRAJ HERRERA MD, Ot M47.816 SPONDYLOSIS W/O MYELOPATHY OR RADICULOPA 12/01/2019 IRAJ HERRERA MD, Ot Z87. 81 PERSONAL HISTORY OF (HEALED) TRAUMATIC F 12/01/2019 BISI GARCIA MD Ot E78. 5 HYPERLIPIDEMIA, UNSPECIFIED 12/01/2019 BISI GARCIA MD, Ot I07. 1 RHEUMATIC TRICUSPID INSUFFICIENCY 12/01/2019 BISI GARCIA MD, Ot I25. 10 ATHSCL HEART DISEASE OF [place] CORONARY 12/01/2019 BISI GARCIA MD, Ot I48. 0 PAROXYSMAL ATRIAL FIBRILLATION 12/01/2019 BISI GARCIA MD Ot I73. 9 PERIPHERAL VASCULAR DISEASE, UNSPECIFIED 12/01/2019 BISI GARCIA MD Ot K21. 9 GASTRO-ESOPHAGEAL REFLUX DISEASE WITHOUT 12/01/2019 IRAJ HERRERA MD, Ot D50. 8 OTHER IRON DEFICIENCY ANEMIAS 12/01/2019 IRAJ HERRERA MD Ot I95. 89 OTHER HYPOTENSION 12/01/2019 IRAJ HERRERA MD, Ot R53. 83 OTHER FATIGUE 12/01/2019 BISI GARCIA MD, Ot Z01.812 ENCOUNTER FOR PREPROCEDURAL LABORATORY E 12/01/2019 BISI GARCIA MD, Ot Z53. 8 PROCEDURE AND TREATMENT NOT CARRIED OUT Procedures Code Description Performed By Per formed On 00.40 04/18/2012 00.45 04/18/2012 00.66 04/18/2012 36.06 04/18/2012 37.22 04/18/2012 88.53 04/18/2012 88.56 04/18/2012 99.10 04/18/2012 [id number] IN SERT OF MONITOR DEV INTO CHEST [...] Whole blood basic metabolic panel - 02/12 0 03:49 Serum or plasma sodium measurement (moles/volume) [...] anisocytosis detection by light microscopy S LIGHT NRG Comprehensive metabolic panel - 01/14/17 01:25 Serum [...] 01/12/19 16:58 Myoglobin, serum 88.3 ng/mL 10.0-92.0 [id number] - 01/12/19 16:58 [id number] 0.48 ng/mL 0.80-2.00 Complete blood count (CBC) [...] - 01/23/19 08:59 Magnesium 1.8 mg/dL 1.6-2.4 [id number] - 01/23/19 08:59 [id number] 0.90 ng/mL 0.80-2.00 Complete urinalysis with reflex [...] NRG Blood erythrocyte morphology finding identification NORMAL NR Complete blood count (CBC) with automate d [...] 07/01/19 14:07 PSA TOTAL 1.0 ng/mL 0.0-4.0 VIT B-12 - 09/09/19 15:17 Vitamin B12 480.00 pg/mL 213.00-816.00 Comprehensive Metabolic Panel - 10/01/19 20:39 Albumin 4.4 g/dL 3.6-5.1 ALP 68 U/L 35-130 ALT 16 U/L 6-45 Anion Gap 14 6-14 AST 20 U/L 2-40 BUN 16 mg/dL 5-25 Calcium 9.8 mg/dL 8.3-10.4 Chloride 107 mmol/L 95-114 CO2 22 mEq/L 22-33 Creat 1.46 mg/dL 0.50-1.50 eGFR 47 mL/min/1.73m2 >59 Globulin 3.0 g/dL 2.3-3.5 Glucose 100 mg/dL 70-110 Osmo 288 280-295 Potassium 4.1 mmol/L 3.5-5.3 Sodium 139 mmol/L 134-148 TBil 0.3 mg/dL 0.2-1.2 TP 7.4 g/dL 6.0-8.3 Lipase - 10/01/19 20:39 Lipase 58 U/L 7-59 IFOBT Occult Blood - 10/01/19 21:31 IFOBT Occult Blood NEGATIVE Negative Coronavirus SARS-CoV-2 SO 2019 - 0 13:24 Coronavirus Ab [Units/volume] in Serum Negative Negative Capillary blood glucose measurement by g lucometer (mass/volume) - 10/15/19 11:38 Capillary blood glucose measurement by glucometer (mas s/volume) 214 mg/dL 70-110 Folate - 10/29/19 09:02 Folate 12.90 ng/mL 7.00-31.40 Digoxin - 10/29/19 09:02 Digoxin 0.9 ng/mL 0.5-1.5 Thyroid Stimulating Hormone - 11/25/19 1 6:48 TSH 1.51 mIU/mL 0.32-5.00 Encounters ACCT No. Visit Date/Time Discharge Status Pt. Type Provider Facility Loc./Unit Complaint [id number] 12/17/2019 12:51:00 12/17/2019 23:59 :00 DIS Outpatient ISRAEL AVALOS [id number] 12/16/2019 08:53:00 12/16/2019 23:59 :00 DIS Outpatient ISRAEL AVALOS [id number] 12/03/2019 11:57:00 12/03/2019 23:59 :00 DIS Outpatient ISRAEL AVALOS [id number] 12/02/2019 14:26:00 12/02/2019 23:59 :00 DIS Outpatient ISRAEL AVALOS [id number] 11/25/2019 16:39:00 11/25/2019 23:59 :00 DIS Outpatient Yoselyn Holland [id number] 11/25/2019 14:37:00 11/25/2019 23:59 :00 DIS Outpatient ISRAEL AVALOS [id number] 11/18/2019 14:47:00 11/18/2019 23:59 :00 DIS Outpatient Yoselyn Holland [id number] 10/29/2019 08:57:00 10/29/2019 23:59 :00 DIS Outpatient AVALOS, ISRAEL [id number] 10/28/2019 16:13:00 10/28/2019 23:59 :00 DIS Outpatient AVALOS, ISRAEL [id number] 10/10/2019 21:28:00 10/10/2019 22:20 :00 [id number] 10/07/2019 14:25:00 10/07/2019 23:59 :00 DIS Outpatient AVALOSISRAEL [id number] 10/01/2019 20:29:00 10/01/2019 22:25 :00 DIS Outpatient BATTAG[facility] ER [id number] 09/30/2019 08:38:00 09/30/2019 23:59 :00 DIS Outpatient AVALOS, ISRAEL [id number] 09/10/2019 09:31:00 09/10/2019 23:59 :00 DIS Outpatient Holland, Yoselyn [id number] 09/09/2019 17:30:00 09/09/2019 23:59 :00 DIS Outpatient Holland, Yoselyn [id number] 07/23/2019 08:47:00 07/23/2019 23:59 :00 DIS Outpatient AVALOS, ISRAEL [id number] 07/14/2019 16:16:00 07/14/2019 23:59 :00 DIS Outpatient AVALOS, ISRAEL [id number] 07/01/2019 15:18:00 07/01/2019 23:59 :00 DIS Outpatient AVALOS, ISRAEL [id number] 07/01/2019 14:05:00 07/01/2019 23:59 :00 DIS Outpatient AVALOS, ISRAEL [id number] 06/24/2019 14:22:00 06/24/2019 23:59 :00 DIS Outpatient AVALOS, ISRAEL [id number] 06/24/2019 11:47:00 06/24/2019 23:59 :00 DIS Outpatient AVALOS, ISRAEL [id number] 06/19/2019 14:53:00 06/19/2019 15:25 :00 DIS Outpatient LEISURE, JASPER [id number] 06/16/2019 13:51:00 06/16/2019 15:28 :00 DIS Outpatient Yohana [facility] ER [id number] 06/16/2019 15:13:07 Document Registration [id number] 12/17/2019 11:00:00 23:59:59 CLS Preadmit BISI GARCIA MD Via [facility] [address] CATH CP,CAD,HTN,HLP [id number] 11/19/2019 09:00:00 23:59:59 CLS Preadmit BISI GARCIA MD Via [facility] [address] CATH CP,CAD,HTN,HLP [id number] 11/17/2019 06:59:00 23:59:59 CLS Outpatient BISI GARCIA MD Via [facility] [address] LABNPT [id number] 10/15/2019 11:09:00 16:00:00 DIS Outpatient SARAH CALLAWAY MD Via [facility] [address] ENDO DYSPHAGIA [id number] 10/10/2019 08:05:00 14:29:00 DIS Outpatient SARAH CALLAWAY MD Via [facility] [address] PREOP EGD [id number] 08/11/2019 08:00:00 23:59:59 CLS Preadmit BISI GARCIA MD Via [facility] [address] CARD DYSPNEA,HTN,HYPERLIPIDE JODY [id number] 07/18/2019 15:10:00 16:09:00 DIS Emergency LEONARDO SALGADO APRN Via [facility] [address] ER BACK PAIN [id number] 06/04/2019 08:15:00 23:59:59 CLS Preadmit RADHA BASILIO Via [facility] [address] CARD CAD [id number] 04/06/2019 15:51:00 16:30:00 DIS Emergency LEONARDO SALGADO MECHANIC RECOVERY Via [facility] [address] ER L LEG HEAVINESS/PAIN [id number] 03/15/2019 04:13:00 06:25:00 DIS Emergency RODOLFO CUELLO MD Via [facility] [address] ER A-FIB [id number] 02/18/2019 12:03:00 13:48:00 DIS Emergency TORSTEN DOUGHERTY, WENDY Colon Via [facility] [address] ER DIARRHEA HIGH BLOOD SUG AR [id number] 01/29/2019 09:06:00 12:55:00 DIS Outpatient SARAH CALLAWAY MD Via [facility] [address] ENDO DYSPHAGIA [id number] 01/28/2019 11:30:00 14:17:00 DIS Outpatient SARAH CALLAWAY MD Via [facility] [address] PREOP EGD [id number] 01/23/2019 08:45:00 11:24:00 DIS Emergency KHUSHBOO DOUGHERTY, RODOLFO Mendieta Via [facility] [address] ER WEAKNESS;NECK P AIN [id number] 01/12/2019 16:41:00 18:45:00 DIS Emergency LEONARDO SALGADO APRN Via [facility] [address] ER FEELS LIKE IN A-FIB AGA IN/HEART RACING [id number] 12/30/2018 20:36:00 22:12:00 DIS Emergency LEONARDO SALGADO APRN Via [facility] [address] ER CHEST PAIN [id number] 12/20/2018 21:30:00 09:30:00 DIS Inpatient EASTON DOUGHERTY, MEGHNA Sanchez Via [facility] [address] ICU VIRAL GASTROENT ERITIS,AFIB w/ RVR [id number] 11/09/2018 04:56:00 06:27:00 DIS Emergency ROMAIN KNIGHT DO a [facility] [address] ER CP SOB [id number] 11/08/2018 14:48:00 17:13:00 DIS Emergency CHARO SCHNEIDER MD Via [facility] [address] ER A-FIB [id number] 11/05/2018 17:36:00 20:48:00 DIS Emergency ROODLFO CUELLO MD Via [facility] [address] ER DIARRHEA,HYPOTE NSION [id number] 10/30/2018 14:15:00 23:59:59 CLS Preadmit RADHA BASILIO Via [facility] [address] CARD CAD [id number] 10/27/2018 20:42:00 21:59:00 DIS Emergency MARY MENDEZ Via [facility] [address] ER CHEST PAIN [id number] 09/21/2018 20:57:00 21:15:00 DIS Emergency CHARO SCHNEIDER MD Via [facility] [address] ER NOT FEELING WEL L [id number] 08/23/2018 00:16:00 23:59:59 CLS Preadmit IRAJ HERRERA MD Via [facility] D50.8,R53.83,I95.89 [id number] 06/07/2018 12:43:00 00:01:00 DIS Outpatient IRAJ HERRERA MD Via [facility] D50.8,R53.83,I95.89 [id number] 08/13/2018 14:43:00 16:03:00 DIS Emergency CHARO SCHNEIDER MD Via [facility] [address] ER LOW BP [id number] 07/31/2018 00:41:00 04:25:00 DIS Emergency EUGENE DO, ROMAIN K Vi a [facility] [address] ER SEVERE ABD PAIN [id number] 07/24/2018 16:38:00 18:54:00 DIS Emergency RODOLFO CUELLO MD Via [facility] [address] ER ABD PAIN,BLOOD PRESSURE HIGH [id number] 07/17/2018 12:42:00 23:59:59 CLS Outpatient BISI GARCIA MD Via [facility] [address] CARD CAD,CAROTID ARTERY STEN OSIS [id number] 06/23/2018 09:31:00 12:12:00 DIS Emergency JALIL DOUGHERTY, FAMILIA Pacheco Via [facility] [address] ER HIGH BLOOD PRESSURE, SO A [id number] 05/22/2018 16:09:00 23:59:59 CLS Outpatient IRAJ HERRERA MD Via [facility] [address] RAD LOW BACK PAIN [id number] 05/20/2018 08:53:00 23:59:59 CLS Outpatient MATTEO CASTILLO MD Via [facility] RAD CHRONIC KIDNEY DISEASE STAGE 3 [id number] 03/17/2018 19:44:00 21:13:00 DIS Emergency LEONARDO SALGADO MECHANIC RECOVERY Via [facility] [address] ER LOW B/P [id number] 03/08/2018 20:25:00 22:05:00 DIS Emergency JOSEE REICH Via [facility] [address] ER BACK PAIN [id number] 02/14/2018 12:15:00 23:59:59 CLS Outpatient IRAJ HERRERA MD Via [facility] [address] RAD NECK PAIN,HEADACHE [id number] 01/25/2018 14:26:00 23:59:59 CLS Outpatient IRAJ HERRERA MD Via [facility] [address] SDC D50.8,R53.83,I95.89 [id number] 01/24/2018 17:01:00 20:09:00 DIS Emergency ROMAIN KNIGHT DO a [facility] [address] ER BP LOW [id number] 01/13/2018 21:53:00 23:37:00 DIS Emergency JOSEE REICH Via [facility] [address] ER UPPER ABD PAIN [id number] 11/11/2017 14:44:00 17:10:00 DIS Emergency LEONARDO SALGADO APRN Via [facility] [address] ER CHEST CONGESTION,COUGH, FEVER [id number] 10/12/2017 14:56:00 16:40:00 DIS Emergency LEONARDO SALGADO APRN Via [facility] [address] ER ABD PAIN [id number] 09/06/2017 14:48:00 17:37:00 DIS Emergency DEEDEE CUBA MD Via [facility] [address] ER ABD PAIN [id number] 08/31/2017 14:59:00 018 16:39:00 DIS Emergency CHARO SCHNEIDER MD Via [facility] [address] ER PAIN IN SCROTUM [id number] 07/29/2017 01:04:00 018 03:55:00 DIS Emergency EUGENE ROMAIN RIVERA [facility] [address] ER DIZZY [id number] 07/28/2017 14:13:00 018 15:46:00 DIS Emergency SALGADOLEONARDO BRAUN MECHANIC RECOVERY Via [facility] [address] ER BACK PAIN [id number] 07/19/2017 03:47:00 018 07:23:00 DIS Emergency EUGENE ROMAIN RIVERA [facility] [address] ER CP [id number] 07/15/2017 12:44:00 018 14:25:00 DIS Emergency MARY MENDEZ [facility] [address] ER COLD SYMPTOMS/CHEST CON GESTION [id number] 06/21/2017 20:51:00 018 22:50:00 DIS Emergency RODOLFO CUELLO MD Via [facility] [address] ER FALL - HIT HEAD ON BLOOD THINNERS [id number] 04/22/2017 21:20:00 017 01:21:00 DIS Emergency WENDY SARMIENTO MD [facility] [address] ER BLOOD PRESSURE [id number] 03/18/2017 17:54:00 017 19:36:00 DIS Emergency JENN CARBAJAL [facility] [address] ER RT SIDE PAIN [id number] 03/12/2017 14:34:00 017 23:59:59 CLS Outpatient SHARON DOUGHERTY, IRAJ Law [facility] [address] RAD M54.6 M54.9 [id number] 02/03/2017 13:40:00 017 16:04:00 DIS Emergency JALIL DOUGHERTY, FAMILIA Pacheco [facility] [address] ER PULLED MUSCLE L SIDE [id number] 01/14/2017 01:26:00 017 02:28:00 DIS Emergency WENDY SARMIENTO MD [facility] [address] ER N/D/ FLU [id number] 12/16/2016 16:40:00 017 18:53:00 DIS Emergency JUSTINE TABARES DO Via [facility] [address] ER STOMACH PAIN [id number] 12/05/2016 05:30:00 017 17:35:00 DIS Inpatient LLUVIA ROUSE DO Via [facility] [address] ICU CHEST PAIN R/O ACS,PANCREATITIS [id number] 11/27/2016 17:44:00 017 21:06:00 DIS Emergency WENDY SARMIENTO MD Via [facility] [address] ER LOW BLOOD PRESSURE [id number] 09/27/2016 15:42:00 017 17:02:00 DIS Emergency ROMAIN KNIGHT DO [facility] [address] ER LOW BLOOD PRESSURE [id number] 09/22/2016 07:10:00 017 11:50:00 DIS Outpatient Daniel CASTILLO MD Via [facility] [address] CATH CHEST PAIN,AFIB [id number] 09/19/2016 22:45:00 017 12:02:00 DIS Inpatient LLUVIA ROUSE DO [facility] [address] ICU A-FLUTTER W/RVR ,RENAL INSUFFICIENCY [id number] 09/17/2016 21:29:00 017 22:47:00 DIS Emergency CHARO SCHNEIDER MD Via [facility] [address] ER STOMACH ISSUES [id number] 09/05/2016 16:03:00 017 18:08:00 DIS Emergency JUSTINE TABARES DO [facility] [address] ER LOW BP [id number] 08/30/2016 16:01:00 017 23:59:59 CLS Outpatient LLUVIA ROUSE DO [facility] [address] LAB PANCREATITIS,DE ODENITIS [id number] 08/29/2016 12:45:00 04/18/2 017 23:59:59 CLS Outpatient LLUVIA ROUSE DO [facility] [address] RAD PAIN IN RIGHT F LANK [id number] 08/09/2016 04:34:00 017 06:11:00 DIS Emergency ROMAIN KNIGHT DO [facility] [address] ER FELL OUT OF CHAIR,NECK PAIN [id number] 07/23/2016 18:30:00 017 20:07:00 DIS Emergency TRELL STARKEY MD [facility] [address] ER LOW BP [id number] 07/01/2016 23:36:00 017 02:32:00 DIS Emergency KHUSHBOO DOUGHERTY, RODOLFO Mendieta [facility] [address] ER HIGH BP DIZZY [id number] 06/20/2016 14:43:00 017 16:45:00 DIS Emergency JENN CARBAJAL [facility] [address] ER LEFT ARM LAC [id number] 06/05/2016 11:41:00 017 13:24:00 DIS Emergency LEONARDO SALGADO APRN [facility] [address] ER RIGHT SIDE PAIN/UNABLE TO URINATE [id number] 05/30/2016 21:15:00 017 12:30:00 DIS Inpatient LLUVIA ROUSE DO [facility] [address] 4TH CHEST PAIN, DEH YDRATION W/ ACUTE ON CHRONIC RENAL [id number] 03/21/2016 19:47:00 13:45:00 DIS Inpatient PADMA RIVERA LLUVIA Gabe [facility] [address] ICU A-FLUTTER RVR [id number] 03/09/2016 16:19:00 18:19:00 DIS Emergency CHARO SCHNEIDER MD [facility] [address] ER SOA [id number] 03/06/2016 15:48:00 23:59:59 CLS Outpatient LLUVIA ROUSE DO Gabe [facility] [address] RAD ABD DIST [id number] 03/04/2016 20:52:00 23:05:00 DIS Emergency KHUSHBOO DOUGHERTY, RODOLFO Mendieta [facility] [address] ER STOMACH PAIN [id number] 03/01/2016 07:22:00 09:45:00 DIS Outpatient BISI GARCIA MD [facility] [address] CATH CP,DYSPNEA,CAD,PVD,MANDEEP DICATION [id number] 11/29/2015 15:30:00 23:59:59 CLS Outpatient HERONJULIO LLUVIA [facility] [address] RAD BACK PAIN 1 MON TH [id number] 11/08/2015 20:08:00 21:08:00 DIS Emergency JUSTINE TABARES DO [facility] [address] ER ELEVATED BLOOD SUGAR [id number] 09/24/2015 18:07:00 21:00:00 DIS Emergency CHARO SCHNEIDER MD [facility] [address] ER DIZZINESS [id number] 09/14/2015 09:09:00 23:59:59 CLS Outpatient LEN SCHERER MD [facility] [address] CARD GASTROPARESIS [id number] 09/08/2015 07:00:00 09:05:00 DIS Outpatient LEN SCHERER MD [facility] [address] SDC DYSPHAGIA, GERD, UPPER GASTRIC PAIN [id number] 09/07/2015 05:43:00 23:59:59 CLS Outpatient LEN SCHERER MD [facility] [address] PREOP DYSPHAGIA, GERD, UPPER GASTRIC PAIN [id number] 09/02/2015 18:42:00 Christine 19:17:00 DIS Emergency CHARO SCHNEIDER MD [facility] [address] ER STOMACH PROBLEM S [id number] 07/30/2015 23:18:00 Christine 23:52:00 DIS Emergency CHARO SCHNEIDER MD [facility] [address] ER ABD PAIN,GASSY [id number] 06/30/2015 10:52:00 Christine 12:37:00 DIS Emergency CHARO SCHNEIDER MD [facility] [address] ER CHEST PAIN [id number] 06/24/2015 12:53:00 016 23:59:59 CLS Outpatient JOSE DOUGHERTY, BISI Colon [facility] [address] CARD CAD,GABI,HTN,HLP [id number] 04/02/2015 17:35:00 015 20:18:00 DIS Emergency JENN CARBAJAL [facility] [address] ER ABD PAIN [id number] 01/12/2015 11:08:00 015 13:03:00 DIS Emergency JENNIE DOUGHERTY, CHARO Fletcher [facility] [address] ER ELEVATED BP, NA USEA [id number] 01/08/2015 18:17:00 015 21:39:00 DIS Emergency LEONARDO SALGADO APRN [facility] [address] ER FELL [id number] 01/01/2015 14:49:00 015 23:59:59 CLS Outpatient ELENI VILLEDA DO [facility] [address] RAD DJD,PAIN [id number] 12/25/2014 07:00:00 015 07:00:00 CAN Preadmit NIESHA DOUGHERTY, LEN Sanchez [facility] [address] CARD [id number] 12/21/2014 05:48:00 015 14:35:00 DIS Inpatient LLUVIA ROUSE DO [facility] [address] CSD SMALL BOWEL OBS TRUCTION, CP [id number] 12/14/2014 16:14:00 015 16:37:00 DIS Emergency TRELL STARKEY MD [facility] [address] ER ABD PAIN [id number] 06/11/2014 12:17:00 015 23:59:59 CLS Outpatient ELENI VILLEDA DO [facility] [address] RAD RT KNEE DJD [id number] 05/13/2014 12:35:00 014 15:13:00 DIS Emergency JENN CARBAJAL [facility] [address] ER RIGHT KNEE PAIN [id number] 03/19/2014 07:28:00 15:03:00 DIS Outpatient DMITRY MEZA MD [facility] [address] CATH PAD,CAD,DIABETE S,HTN [id number] 03/12/2014 15:08:00 23:59:59 CLS Outpatient LLUVIA ROUSE DO [facility] [address] LAB ABD PAIN ONSET ONE WEEK AGO [id number] 02/26/2014 06:52:00 14:02:00 DIS Outpatient DMITRY MEZA MD [facility] [address] CATH PAD,CAD,DIABETE S,HTN [id number] 11/24/2013 10:07:00 13:20:00 DIS Outpatient LEN SCHERER MD [facility] HISTORY OF POLYPS [id number] 11/19/2013 07:30:00 23:59:59 CLS Outpatient LEN SCHERER MD [facility] [address] PREOP HISTORY OF POLYPS [id number] 11/03/2013 07:17:00 08:45:00 DIS Inpatient PARIS DOUGHERTY, SONIA R [facility] [address] 4TH ILEUS ATYPICAL CHEST PA IN N/V PANCREATITIS [id number] 09/28/2013 17:25:00 19:05:00 DIS Emergency JENN CARBAJAL [facility] [address] ER RIGHT ELBOW PAIN [id number] 09/22/2013 12:53:00 23:59:59 CLS Outpatient BISI GARCIA MD [facility] [address] CARD CAD [id number] 09/14/2013 16:46:00 20:10:00 DIS Emergency JENN CARBAJAL [facility] [address] ER ABD PAIN [id number] 09/13/2013 19:21:00 20:35:00 DIS Emergency TRELL STARKEY MD [facility] [address] ER CHEST PAIN [id number] 08/12/2013 11:35:00 16:15:00 DIS Outpatient ELENI VILLEDA DO [facility] OLECRANON SURSI TIS AND SPUR RIGHT ELBOW [id number] 08/05/2013 10:06:00 014 23:59:59 CLS Outpatient ELENI VILLEDA DO [facility] [address] PREOP OLECRANON SURSI TIS AND SPUR RIGHT ELBOW [id number] 07/19/2013 13:03:00 014 16:03:00 DIS Emergency JENN CARBAJAL [facility] [address] ER ABD PAIN [id number] 04/23/2013 08:19:00 013 13:25:00 DIS Outpatient SARAH CALLAWAY MD [facility] DYSPHAGIA [id number] 04/17/2013 07:26:00 23:59:59 CLS Outpatient SARAH CALLAWAY MD [facility] [address] PREOP DYSPHAGIA [id number] 12/24/2012 12:05:00 17:25:00 DIS Outpatient ELENI VILLEDA DO [facility] RIGHT TORN ROTA TOR CUFF [id number] 12/18/2012 11:40:00 23:59:59 CLS Outpatient ELENI VILLEDA DO [facility] [address] PREOP RIGHT TORN ROTA TOR CUFF [id number] 10/29/2012 10:02:00 23:59:59 CLS Outpatient RONAL ELENI RIVERA [facility] [address] RAD RT SHOULDER IMP INGMENT SYNDROME [id number] 10/26/2012 20:46:00 22:12:00 DIS Emergency TRELL STARKEY MD [facility] [address] ER INDIGESTION [id number] 12/27/2017 17:41:00 Document Registration [id number] 12/21/2017 13:33:00 Document Registration [id number] 08/14/2015 11:24:00 Document Registration [id number] 12/21/2014 10:21:00 Document Registration [id number] 07/17/2014 10:49:00 Document Registration [id number] 04/16/2012 21:07:00 Document Registration [id number] 03/18/2012 06:44:00 Document Registration [id number] 03/14/2012 10:29:00 Document Registration [id number] 01/30/2012 06:19:00 Document Registration [id number] 01/29/2012 07:52:00 Document Registration [id number] 12/18/2011 05:25:00 Document Registration [id number] 11/29/2011 12:48:00 Document Registration [id number] 06/22/2011 10:47:00 Document Registration [id number] 06/03/2011 21:22:00 Document Registration [id number] 04/17/2011 11:44:00 Document Registration [id number] 03/14/2011 16:51:00 Document Registration [id number] 12/12/2010 14:47:00 Document Registration [id number] 11/12/2010 03:05:00 Document Registration [id number] 10/19/2010 13:21:00 Document Registration [id number] 08/26/2010 11:59:00 Document Registration [id number] 05/30/2010 12:31:00 Document Registration [id number] 05/27/2010 22:21:00 Document Registration [id number] 04/25/2010 05:48:00 Document Registration [id number] 03/08/2010 14:10:00 Document Registration [id number] 02/18/2010 07:02:00 Document Registration [id number] 02/16/2010 22:09:00 Document Registration [id number] 01/12/2015 11:08:59 ACT Document Registration
[2019-12-23] MEDS ORDERED: ORPHENADRINE 60 MG/2 ML (NORFLEX) AMP (ED ONLY) IM STA (10:19)
[2019-12-23] MEDS ORDERED: morphine INJ 10 MG/ML 1ML (SYR OR VIAL) IM STA (10:19)
--- NOTE | 2019-12-23 10:54 | NUR ---
PATIENT REPORTS TRIED TO CALL AND GIVE UPDATE BUT HER PHONE MUST BE OFF.
--- NOTE | 2019-12-23 11:26 | Diagnostic Imaging Report ---
CLINICAL HISTORY: Fall. Bilateral shoulder pain. COMPARISON: None. TECHNIQUE: 6 views of the bilateral shoulders. FINDINGS: There is no acute fracture or dislocation of the bilateral shoulders. Alignment is anatomic. Degenerative changes are seen in the shoulders with marginal osteophytes and joint space narrowing. No large joint effusion is seen. The surrounding soft tissues are unremarkable. The included lungs are clear. IMPRESSION: 1. No acute fracture or dislocation in the bilateral shoulders. Dictated by: Dictated on workstation # [id number]
--- NOTE | 2019-12-23 11:33 | Diagnostic Imaging Report ---
EXAMINATION: Chest 1 view HISTORY: Fall. Pain all over. COMPARISON: Chest radiograph on 03/15/2019. FINDINGS: The lung volumes are normal. No focal consolidation is seen. No large pleural effusion or pneumothorax is seen. The cardiomediastinal silhouette is normal in size and contour. Post-CABG changes are noted. A loop recorder is seen overlying the left hemithorax. No acute osseous abnormality is seen. IMPRESSION: 1. No acute pleuroparenchymal process. Dictated by: Dictated on workstation # [id number]
--- NOTE | 2019-12-23 11:34 | Diagnostic Imaging Report ---
EXAM: CERVICAL SPINE 3 VIEWS OR LESS INDICATION: Fall. Neck and back pain. COMPARISON: CT neck 01/23/2019. FINDINGS: Again seen are the large anterior bridging osteophytes at C2-C7 consistent with DISH (diffuse idiopathic skeletal hyperostosis). Levels below C6 are not well seen due to overlapping tissues. Normal alignment. No fractures are identified. Sternotomy. Normal prevertebral soft tissues. IMPRESSION: 1. Bridging anterior osteophytes throughout the cervical spine consistent with DISH. 2. No acute radiographic findings. Dictated by: Dictated on workstation # [id number]
--- NOTE | 2019-12-23 11:36 | Diagnostic Imaging Report ---
EXAM: THORACIC SPINE, 2 VIEWS ONLY INDICATION: Fall. Back pain. COMPARISON: 05/22/2018. FINDINGS: Normal alignment. Vertebral body heights appear preserved. Diffuse bridging anterior osteophytes are greatest in the midthoracic spine. Sternotomy with CABG. Mitral annular calcifications. Implanted loop recorder. IMPRESSION: 1. No acute radiographic findings in the thoracic spine. 2. Bridging anterior osteophytes are greatest in the thoracic spine consistent with DISH (diffuse idiopathic skeletal hyperostosis). Dictated by: Dictated on workstation # [id number]
[2019-12-23 11:50] VITALS: BP 123/78
== END 2019-12-23 11:51 | disposition home or self-care (01) ==
LOC: EDUNIT# 09:05 → ER 09:13
DX: S20.229A Contusion of unspecified back wall of thorax, initial encounter (principal); I10 Essential (primary) hypertension; E11.9 Type 2 diabetes mellitus without complications; I48.91 Unspecified atrial fibrillation; I25.10 Atherosclerotic heart disease of native coronary artery without angina pectoris; I25.2 Old myocardial infarction; J44.9 Chronic obstructive pulmonary disease, unspecified; E78.00 Pure hypercholesterolemia, unspecified; F41.9 Anxiety disorder, unspecified; K21.9 Gastro-esophageal reflux disease without esophagitis; N40.0 Benign prostatic hyperplasia without lower urinary tract symptoms; Z88.6 Allergy status to analgesic agent; Z88.8 Allergy status to other drugs, medicaments and biological substances; Z88.0 Allergy status to penicillin; Z86.73 Personal history of transient ischemic attack (TIA), and cerebral infarction without residual deficits; Z79.01 Long term (current) use of anticoagulants; Z79.4 Long term (current) use of insulin; Z87.891 Personal history of nicotine dependence; Z95.5 Presence of coronary angioplasty implant and graft; Z95.1 Presence of aortocoronary bypass graft; Z82.49 Family history of ischemic heart disease and other diseases of the circulatory system; W19.XXXA Unspecified fall, initial encounter; Y92.009 Unspecified place in unspecified non-institutional (private) residence as the place of occurrence of the external cause
CPT/HCPCS: 71045; 72040; 72070

== ENCOUNTER 2020-03-03 13:43 | Day surgery (SDC) | payer MEDICARE, MEDICAID ==
[~2020-03-03] VITALS: Ht 182 cm; Wt 87.5 kg
[~2020-03-03 13:43] MED LIST changes: -ENAL10TA PO; +ENAL10TA16 PO; -PANT40TA3; -PANT40TA3 PO; +PANT40TA52; +PANT40TA52 PO
[2020-03-03] MEDS ORDERED: ASPIRIN 81 MG CHEW (CHILDREN'S ASA) PO ONE (14:00)
--- NOTE | 2020-03-03 14:04 | ED Chest Pain ---
General Chief Complaint: Cardiac/General Problems Stated Complaint: AFIB Source: patient Exam Limitations: no limitations History of Present Illness Date Seen by Provider: Mar 03, 2020 Time Seen by Provider: 13:40 Initial Comments Patient presents to ER by EMS from home with chief complaint about half hour prior to arrival he began to have some chest pain substernal nonradiating reminiscent of previous cardiac chest pains. He took a single dose of nitroglycerin after EMS arrived and the pain went away but his blood pressure dipped down so they started a liter of fluids which she received about 400 cc. He has a history of quadruple bypass and follows with Dr. Stiles, cardiology. He follows with Dr. Delgado at [facility]. He's not having any shortness of breath fever chills cough or exposure to sick people. He says he spends most of his t jennifer at home. He denies a history of COPD. He quit smoking decades ago. He does not drink alcohol or use recreational drugs. He's not having nausea vomiting loss of sense of taste or smell, pain or swelling in his extremities. He says he has no symptoms at this time. He does not routinely take aspirin because he is on Eliquis for atrial fibrillation. He does have some history of GERD on pantoprazole. He has hyperlipidemia, hypertension, coronary artery disease. Allergies and Home Medications Allergies Coded Allergies: celecoxib (Unverified Allergy, Mild, TAKES ASPIRIN AT HOME, 01/28/19) diclofenac (Unverified Allergy, Mild, TAKES ASPIRIN AT HOME, 01/28/19) naproxen (Unverified Allergy, Mild, TAKES ASPIRIN AT HOME, 01/28/19) rosuvastatin (Unverified Allergy, Mild, 01/28/19) Penicillins (Verified Allergy, Unknown, 01/28/19) amoxicillin (Verified Allergy, Unknown, 01/28/19) fenofibrate (Unverified Allergy, Unknown, 01/28/19) gemfibrozil (Unverified Allergy, Unknown, 10/15/19) simvastatin (Unverified Allergy, Unknown, 01/28/19) Home Medications Apixaban 5 Mg Tablet, 5 MG PO BID, (Reported) Baclofen 10 Mg Tablet, 10 MG PO TID PRN for MUSCLE SPASMS, (Reported) Digoxin 125 Mcg Tablet, 125 MCG PO DAILY, (Reported) Diltiazem HCl 240 Mg Cap.er.24h, 240 MG PO DAILY, (Reported) Famotidine 20 Mg Tablet, 20 MG PO DAILY, (Reported) Fenofibrate,Micronized 134 Mg Capsule, 134 MG PO DAILY, (Reported) Gabapentin 300 Mg Capsule, 300 MG PO TID, (Reported) Glipizide 10 Mg Tablet, 10 MG PO DAILY, (Reported) Insulin Detemir 100 Unit/1 Ml Insuln.pen, 30 UNIT SQ BID, (Reported) Montelukast Sodium 10 Mg Tablet, 10 MG PO HS, (Reported) Nitroglycerin 0.4 Mg Tab.subl, 0.4 MG SL UD PRN for CHEST PAIN, (Reported) MAX OF 3 TABS IN 15 MINUTES / CALL 911 IF PAIN REMAINS AFTER 5 MINUTES Pantoprazole Sodium 40 Mg Tablet.dr, 40 MG PO HS, (Reported) Pentoxifylline 400 Mg Tablet.er, 400 MG PO TID, (Reported) Sucralfate 1 Gm Tablet, 1 GM PO ACHS, (Reported) Tamsulosin HCl 0.4 Mg Cap, 0.4 MG PO DAILY, (Reported) Trazodone HCl 50 Mg Tablet, 50 MG PO HS, (Reported) Zolpidem Tartrate 10 Mg Tablet, 10 MG PO HS, (Reported) Patient Home Medication List Home Medication List Reviewed: Yes Review of Systems Review of Systems Constitutional: No chills, No diaphoresis EENTM: No Blurred Vision, No Double Vision Respiratory: Denies Cough, Denies Shortness of Air Cardiovascular: See HPI, Chest Pain; Denies Edema; Irregular Heart Rate; Denies Lightheadedness Gastrointestinal: Denies Constipated, Denies Diarrhea Musculoskeletal: No back pain, No joint pain Skin: No pruritus, No rash Psychiatric/Neurological: Denies Headache, Denies Numbness, Denies Paresthesia All Other Systems Reviewed Negative Unless Noted: Yes Past Upqrqrk-Awloqw-Lenmcv Hx Patient Social History Alcohol Use: Denies Use Number of Drinks Today: AA Alcohol Beverage of Choice: Beer Recreational Drug Use: No Smoking Status: Former Smoker Type Used: Cigarettes Former Smoker, Quit: Apr 12, 2000 2nd Hand Smoke Exposure: No Recent Hopitalizations: No Physical Abuse: No Sexual Abuse: No Mistreated: No Fear: No Immunizations Up To Date Tetanus Booster (TDap): Less than 5yrs PED Vaccines UTD: No Date of Pneumonia Vaccine: May 22, 2017 Date of Influenza Vaccine: Mar 08, 2018 Seasonal Allergies Seasonal Allergies: No Past Medical History Surgeries: Yes (CORONARY BYPASS X4, BILAT TKR, STENTS IN LEGS) Abdominal, Angioplasty, Cardiac, CABG, Coronary Stent, Eye Surgery, Gallbladder, Joint Replacement, Open Heart Surgery, Orthopedic, Vascular Surgery Respiratory: Yes (CHRONIC DYSPNEA ON EXERTION) Sleep Apnea, COPD Currently Using CPAP: No Currently Using BIPAP: No Cardiac: Yes Atrial Fibrillation, Chronic Edema/Swelling, Coronary Artery Disease, Heart Attack, High Cholesterol, Hypertension, Peripheral Vascular Neurological: Yes (POSSIBLE STROKE/ TIA) Stroke, TIA Reproductive Disorders: No Sexually Transmitted Disease: No HIV/AIDS: No Genitourinary: Yes (RENAL INSUFFICIENCY) Benign Prostatic Hyperpl, Prostate Problems, Renal Failure Gastrointestinal: Yes (GASTROPARESIS) Abdominal Hernia, Gastroesophageal Reflux, Chronic Constipation, Diverticulosis, Pancreatitis, Polyps, Gall Bladder Disease Musculoskeletal: Yes (OLECRANON BURSITIS, CHRONIC NECK PAIN, DISH SYNDROME) Degenerate Disk Disease, Arthritis, Chronic Back Pain Endocrine: Yes Diabetes, Insulin dep HEENT: Yes Cataract Loss of Vision: Denies Hearing Impairment: Denies Cancer: No Psychosocial: Yes Anxiety Integumentary: No Blood Disorders: No Adverse Reaction/Blood Tranf: No (N/A) Family Medical History Cancer G8 BROTHER Cataract 19 FATHER 19 MOTHER G8 BROTHER G8 BROTHER G8 SISTER Congestive heart failure 19 FATHER 19 MOTHER Family history: Arthritis 19 FATHER 19 MOTHER G8 BROTHER G8 BROTHER G8 SISTER G8 SISTER DAUGHTER SON Family history: Breast disease DAUGHTER Family history: Cardiovascular disease 19 FATHER Family history: Diabetes mellitus 19 FATHER G8 BROTHER G8 SISTER Family history: Hypertension 19 FATHER 19 MOTHER G8 BROTHER G8 BROTHER G8 SISTER G8 SISTER DAUGHTER SON Family history: Thyroid disorder DAUGHTER Heart disease 19 FATHER 19 MOTHER G8 BROTHER Hypercholesterolemia 19 FATHER 19 MOTHER G8 BROTHER G8 BROTHER G8 SISTER Myocardial infarction 19 FATHER 19 MOTHER G8 BROTHER No Family History of: Abdominal aortic aneurysm Robel's disease Alcoholism Aphasia Cancer of colon Chest pain Congenital heart disease Cystic fibrosis Dementia Dysphagia Family history: Allergy Family history: Alzheimer's disease Family history: Asthma Family history: Coronary thrombosis Family history: Gastrointestinal disease Family history: Glaucoma Family history: Osteoporosis Headache Hearing loss Hereditary disease History of - anemia History of - disorder History of - respiratory disease History of drug abuse Human immunodeficiency virus (HIV) seropositivity Infertile Kidney disease Malignant neoplasm of lung Parkinson's disease Prostate cancer Psychotic disorder Seizure disorder Stroke Tuberculosis Visual impairment Physical Exam Vital Signs Vital Signs - First Documented 03/03/20 13:49 Temp 36.8 Pulse 72 Resp 16 B/P (MAP) 143/91 (108) Pulse Ox 98 Capillary Refill : Height, Weight, BMI Height: 6'0" Weight: 180lbs. 4.0oz. 81.325174kg; 26.00 BMI Method:Stated General Appearance: No Apparent Distress, WD/WN HEENT: PERRL/EOMI, Pharynx Normal, Moist Mucous Membranes Neck: Full Range of Motion, Normal Inspection, Non Tender, Supple Respiratory: Chest Non Tender, Lungs Clear, Normal Breath Sounds, No Accessory Muscle Use, No Respiratory Distress Cardiovascular: Regular Rate, Rhythm, No Edema, Normal Peripheral Pulses Gastrointestinal: Normal Bowel Sounds, No Organomegaly Extremity: Normal Capillary Refill, Normal Inspection, No Pedal Edema Neurologic/Psychiatric: Alert, Oriented x3, No Motor/Sensory Deficits Skin: Normal Color, Warm/Dry Progress/Results/Core Measures Results/Orders Lab Results Laboratory Tests Test 03/03/20 14:05 03/03/20 14:06 03/03/20 15:24 Range/Units White Blood Count 5.8 4.3-11.0 10^3/uL Red Blood Count 4.73 4.30-5.52 10^6/uL Hemoglobin 13.1 L 13.3-17.7 g/dL Hematocrit 40 40-54 % Mean Corpuscular Volume 85 80-99 fL Mean Corpuscular Hemoglobin 28 25-34 pg Mean Corpuscular Hemoglobin Concent 33 32-36 g/dL Red Cell Distribution Width 15.3 H 10.0-14.5 % Platelet Count 262 130-400 10^3/uL Mean Platelet Volume 10.9 9.0-12.2 fL Immature Granulocyte % (Auto) 0 % Neutrophils (%) (Auto) 68 42-75 % Lymphocytes (%) (Auto) 21 12-44 % Monocytes (%) (Auto) 8 0-12 % Eosinophils (%) (Auto) 2 0-10 % Basophils (%) (Auto) 1 0-10 % Neutrophils # (Auto) 3.9 1.8-7.8 10^3/uL Lymphocytes # (Auto) 1.2 1.0-4.0 10^3/uL Monocytes # (Auto) 0.5 0.0-1.0 10^3/uL Eosinophils # (Auto) 0.1 0.0-0.3 10^3/uL Basophils # (Auto) 0.1 0.0-0.1 10^3/uL Immature Granulocyte # (Auto) 0.0 0.0-0.1 10^3/uL Prothrombin Time 15.7 H 12.2-14.7 SEC INR Comment 1.2 0.8-1.4 Activated Partial Thromboplast Time 27 24-35 SEC Sodium Level 137 135-145 MMOL/L Potassium Level 4.0 3.6-5.0 MMOL/L Chloride Level 103 98-107 MMOL/L Carbon Dioxide Level 21 21-32 MMOL/L Anion Gap 13 5-14 MMOL/L Blood Urea Nitrogen 12 7-18 MG/DL Creatinine 1.38 H 0.60-1.30 MG/DL Estimat Glomerular Filtration Rate 50 BUN/Creatinine Ratio 9 Glucose Level 285 H 70-105 MG/DL Calcium Level 9.4 8.5-10.1 MG/DL Corrected Calcium 9.5 8.5-10.1 MG/DL Magnesium Level 1.6 1.6-2.4 MG/DL Total Bilirubin 0.4 0.1-1.0 MG/DL Aspartate Amino Transf (AST/SGOT) 16 5-34 U/L Alanine Aminotransferase (ALT/SGPT) 18 0-55 U/L Alkaline Phosphatase 81 40-136 U/L Myoglobin 47.3 10.0-92.0 NG/ML Troponin I < 0.028 <0.028 NG/ML B-Type Natriuretic Peptide 122.7 H <100.0 PG/ML Total Protein 7.1 6.4-8.2 GM/DL Albumin 3.9 3.2-4.5 GM/DL Lipase 60 8-78 U/L Glucometer 270 H 217 H 70-110 MG/DL My Orders Orders - WENDY SARMIENTO Cbc With Automated Diff (03/03/20 13:56) Magnesium (03/03/20 13:56) Chest 1 View, Ap/Pa Only (03/03/20 13:56) Ekg Tracing (03/03/20 13:56) Comprehensive Metabolic Panel (03/03/20 13:56) Myoglobin Serum (03/03/20 13:56) Protime With Inr (03/03/20 13:56) Partial Thromboplastin Time (03/03/20 13:56) O2 (03/03/20 13:56) Monitor-Rhythm Ecg Trace Only (03/03/20 13:56) Lipid Panel (03/04/20 06:00) Ed Iv/Invasive Line Start (03/03/20 13:56) Lipase (03/03/20 13:56) BNP (03/03/20 13:56) Troponin I (03/03/20 13:56) Aspirin Chewable Tablet (Baby Aspirin Ch (03/03/20 14:00) Insulin (Regular) Human (Novolin R (Per (03/03/20 14:15) Troponin I (03/03/20 16:00) Medications Given in ED Current Medications Medications Dose Ordered Sig/Alka Route Start Time Stop Time Status Last Admin Dose Admin Aspirin 81 mg ONCE ONCE PO 03/03/20 14:00 03/03/20 14:01 DC 03/03/20 14:19 81 MG Insulin Human Regular 5 unit ONCE ONCE SC 03/03/20 14:15 03/03/20 14:16 DC 03/03/20 14:20 5 UNIT Vital Signs/I&O 03/03/20 13:49 Temp 36.8 Pulse 72 Resp 16 B/P (MAP) 143/91 (108) Pulse Ox 98 Progress Progress Note : Time: 14:02 Progress Note Patient takes Levemir twice a day so we're going give him 5 units of regular insulin for his 270 blood sugar. We'll check some labs and a chest x-ray. Initial EKG shows no ST changes. Sounds like stable angina so far but we'll keep him on the monitor. We'll confer with cardiology. Plan to let him finish the liter of normal saline initiated by EMS. Initial ECG Impression Date: Mar 03, 2020 Initial ECG Impression Time: 13:44 Initial ECG Rate: 90 Initial ECG Rhythm: A Fib/Flutter Initial ECG Intervals: QT Initial ECG Impression: Normal, Nonspecific Changes Comment Atrial fibrillation without rapid ventricular response. No clinically relevant ST elevation or depression. Diagnostic Imaging Diagonstic Imaging: Xray Plain Films/CT/US/NM/MRI: chest Comments NAME: CASTRO PADRON REC#: [id number] PT STATUS: REG ER : 1940 PHYSICIAN: WENDY SARMIENTO MD ADMIT DATE: 03/03/20/ER Draft Date of Exam:03/03/20 CHEST 1 VIEW, AP/PA ONLY INDICATION: Chest pain. COMPARISON: 12/23/2019. FINDINGS: Lungs are clear. No failure pattern, effusion, or pneumothorax. Sternal wires are midline. IMPRESSION: No acute-appearing abnormality. Dictated on workstation # [id number] Dict: 03/03/20 1443 Trans: 03/03/20 1445 [facility] [id number] Interpreted by: PRINCESS YOUNG Electronically signed by: Reviewed: Reviewed by Me Consults : Consulting Physician: BISI STILES MD Consults Notes After discussing the case with Dr. Stiles he wishes to take the patient straight to catheter lab. He says outpatient he's been trying to get him to get a catheter done but the patient keeps missing appointments. He feels that it is warranted to do this and if the patient's catheter is normal he could let him go home later tonight. Departure Communication (Admissions) Time/Spoke to Admitting Phy: 15:[address] Stiles, cardiology straight to catheter lab. Impression Primary Impression: Angina pectoris Disposition: ADMITTED INPATIENT Condition: Stable Admissions Decision to Admit Reason: Admit from ER (General) Decision to Admit/Date: Mar 03, 2020 Time/Decision to Admit Time: 15:40 Departure-Patient Inst. Referrals: ISRAEL DELGADO MD (PCP) Primary Care Physician IRAJ HERRERA MD (Family) Primary Care Physician WENDY SARMIENTO Mar 03, 2020 14:03
[2020-03-03 14:12] LABS: BASOPHILS # (AUTO) 0.1 10^3/uL (0.0-0.1); BASOPHILS % (AUTO) 1 % (0-10); EOSINOPHILS # (AUTO) 0.1 10^3/uL (0.0-0.3); EOSINOPHILS % (AUTO) 2 % (0-10); HEMATOCRIT 40 % (40-54); HEMOGLOBIN 13.1 g/dL (13.3-17.7); LYMPHOCYTES # (AUTO) 1.2 10^3/uL (1.0-4.0); LYMPHOCYTES % (AUTO) 21 % (12-44); MEAN CORPUSCULAR HEMOGLOBIN 28 pg (25-34); MEAN CORPUSCULAR HGB CONC 33 g/dL (32-36); MEAN CORPUSCULAR VOLUME 85 fL (80-99); MEAN PLATELET VOLUME 10.9 fL (9.0-12.2); MONOCYTES # (AUTO) 0.5 10^3/uL (0.0-1.0); MONOCYTES % (AUTO) 8 % (0-12); NEUTROPHILS # (AUTO) 3.9 10^3/uL (1.8-7.8); NEUTROPHILS % (AUTO) 68 % (42-75); PLATELET COUNT 262 10^3/uL (130-400); WHITE BLOOD COUNT 5.8 10^3/uL (4.3-11.0)
[2020-03-03] MEDS ORDERED: inSUlin (REGULAR) HUMAN 1 UNIT/0.01 ML (CHARGE PER UNIT) SC ONE (14:15)
[2020-03-03 14:22] LABS: ALBUMIN 3.9 GM/DL (3.2-4.5)
[2020-03-03 14:23] LABS: CALCIUM 9.4 MG/DL (8.5-10.1)
[2020-03-03 14:25] LABS: TOTAL PROTEIN 7.1 GM/DL (6.4-8.2)
[2020-03-03 14:26] LABS: BILIRUBIN,TOTAL 0.4 MG/DL (0.1-1.0); INR 1.2 (0.8-1.4); PROTHROMBIN TIME PATIENT 15.7 SEC (12.2-14.7)
[2020-03-03 14:28] LABS: CREATININE SERUM 1.38 MG/DL (0.60-1.30)
[2020-03-03 14:31] LABS: MAGNESIUM 1.6 MG/DL (1.6-2.4)
--- NOTE | 2020-03-03 14:45 | Diagnostic Imaging Report ---
INDICATION: Chest pain. COMPARISON: 12/23/2019. FINDINGS: Lungs are clear. No failure pattern, effusion, or pneumothorax. Sternal wires are midline. IMPRESSION: No acute-appearing abnormality. Dictated by: Dictated on workstation # [id number]
--- NOTE | 2020-03-03 15:48 | Cardiology History & Physical ---
HPI-Cardiology Cardiology Consultation Date of Consultation 03/03/20 Date of Admission Time Seen by Provider: 15:43 Indication: Chest pain HPI Patient is a 79 y/o male with history of CAD, PAF. Presented to the ER with complaints of chest pain. CP was relieved with SL nitroglycerin. Has extensive CAD, was planning for C in October 2019, however, patient cancelled. Associated dyspnea at times. Denies any dizziness or lightheadedness. No other complaints at this time. 79 years old gentleman with history of coronary artery disease, CABG, paroxysmal atrial fibrillation, has been having accelerating angina, was scheduled for cardiac catheterization in the past few months and canceled that. Has been doing well until this morning when he started to have chest pain described as dull in nature in the retrosternal area, came into the emergency room and took sublingual nitroglycerin reported relief of his chest pain with nitroglycerin. No active pain. Due to his extensive history was discussed management recommended cardiac catheterization possible PTCA. PMH-Cardiology Immunizations Up To Date Tetanus Booster (DTap): Less than 5yrs Date of Pneumonia Vaccine: May 22, 2017 Date of Influenza Vaccine: Mar 08, 2018 Seasonal Allergies Seasonal Allergies: No Surgeries Yes (CORONARY BYPASS X4, BILAT TKR, STENTS IN LEGS) Gall Bladder, Angioplasty, Cardiac, CABG, Coronary Stent, Orthopedic Respiratory Yes (CHRONIC DYSPNEA ON EXERTION) COPD Cardiovascular Yes Irregular Heartbeat, Angina, Atrial Fibrillation, Heart Attack, High Cholesterol, Hypertension, Coronary Artery Disease Neurological Yes (POSSIBLE STROKE/ TIA) Stroke, TIA Reproductive System Hx Reproductive Disorders: No Sexually Transmitted Disease: No HIV/AIDS: No Genitourinary Yes (RENAL INSUFFICIENCY) Benign Prostatic Hyperpl, Prostate Problems, Renal Failure Gastrointestinal Yes (GASTROPARESIS) Abdominal Hernia, Gastroesophageal Reflux, Chronic Constipation, Diverticulosis, Pancreatitis, Polyps, Gall Bladder Disease Musculoskeletal Yes (OLECRANON BURSITIS, CHRONIC NECK PAIN, DISH SYNDROME) Degenerate Disk Disease, Arthritis, Chronic Back Pain Endocrine Yes Diabetes, Insulin dep HEENT Yes Cataract Loss of Vision: Denies Hearing Impairment: Denies Cancer No Psychosocial Yes Anxiety Integumentary No Blood Transfusions No Adverse Rxn to Transfusion: No (N/A) Social History Patient Social History Marrital Status: Employed/Student: retired Alcohol Use: Denies Use Recreational Drug Use: No Dip or chew tobacco?: No Recent Foreign Travel: No Contact w/other who traveled: No Recent Infectious Disease Expo: No Family Hx Significant Family History: CAD Over 55 Years Old Family History: 19 FATHER Cataract Congestive heart failure Family history: Arthritis Family history: Cardiovascular disease Family history: Diabetes mellitus Family history: Hypertension Heart disease Hypercholesterolemia Myocardial infarction 19 MOTHER Cataract Congestive heart failure Family history: Arthritis Family history: Hypertension Heart disease Hypercholesterolemia Myocardial infarction G8 BROTHER Cataract Family history: Arthritis Family history: Hypertension Heart disease Hypercholesterolemia Myocardial infarction G8 BROTHER Cancer Cataract Family history: Arthritis Family history: Diabetes mellitus Family history: Hypertension Hypercholesterolemia G8 SISTER Cataract Family history: Arthritis Family history: Diabetes mellitus Family history: Hypertension Hypercholesterolemia G8 SISTER Family history: Arthritis Family history: Hypertension DAUGHTER Family history: Arthritis Family history: Breast disease Family history: Hypertension Family history: Thyroid disorder SON Family history: Arthritis Family history: Hypertension ROS-Cardiology Review of Systems General: No Night Sweats, No Fatigue, No Malaise HEENT: No Visual Changes, No Dysphasia Pulmonary: No Dyspnea, No Cough Cardiovascular: Chest Pain, Edema (RLE); No: Palpitations Gastrointestinal: No: Nausea, Vomiting, Abdominal Pain Genitourinary: No Dysuria, No Frequency Musculoskeletal: No: neck pain, back pain Neurological: No: Weakness, Numbness, Change in speech, Confusion Home Medications & Allergies Allergies: Coded Allergies: celecoxib (Unverified Allergy, Mild, TAKES ASPIRIN AT HOME, 01/28/19) diclofenac (Unverified Allergy, Mild, TAKES ASPIRIN AT HOME, 01/28/19) naproxen (Unverified Allergy, Mild, TAKES ASPIRIN AT HOME, 01/28/19) rosuvastatin (Unverified Allergy, Mild, 01/28/19) Penicillins (Verified Allergy, Unknown, 01/28/19) amoxicillin (Verified Allergy, Unknown, 01/28/19) fenofibrate (Unverified Allergy, Unknown, 01/28/19) gemfibrozil (Unverified Allergy, Unknown, 10/15/19) simvastatin (Unverified Allergy, Unknown, 01/28/19) Home Medication List Reviewed: Yes Exam-Cardiology Vital Signs Vital Signs Date Time Temp Pulse Resp B/P (MAP) Pulse Ox O2 Delivery O2 Flow Rate FiO2 03/03/20 13:49 36.8 72 16 143/91 (108) 98 Exam General Appearance: Alert, Oriented X3, Cooperative, No Acute Distress HEENT: Atraumatic, PERRLA Respiratory: Clear to Auscultation, Normal Air Movement Cardiovascular: Regular Rate, Normal S1, Normal S2, No Murmurs Abdominal: Normal Bowel Sounds, Soft, No Tenderness, No Hepatosplenomegaly, No Masses Extremities: No Clubbing, No Cyanosis, No Edema, Normal Pulses, No Tenderness/Swelling Skin: No Rashes, No Breakdown, No Significant Lesion Neuro: Normal Speech, Cranial Nerves 3-12 NL Psych/Mental Status: Mental Status NL, Mood NL Results Labs Labs Laboratory Tests 03/03/20 14:05: White Blood Count 5.8, Red Blood Count 4.73, Hemoglobin 13.1L, Hematocrit 40, Mean Corpuscular Volume 85, Mean Corpuscular Hemoglobin 28, Mean Corpuscular Hemoglobin Concent 33, Red Cell Distribution Width 15.3H, Platelet Count 262, Mean Platelet Volume 10.9, Immature Granulocyte % (Auto) 0, Neutrophils (%) (Auto) 68, Lymphocytes (%) (Auto) 21, Monocytes (%) (Auto) 8, Eosinophils (%) (Auto) 2, Basophils (%) (Auto) 1, Neutrophils # (Auto) 3.9, Lymphocytes # (Auto) 1.2, Monocytes # (Auto) 0.5, Eosinophils # (Auto) 0.1, Basophils # (Auto) 0.1, Immature Granulocyte # (Auto) 0.0, Prothrombin Time 15.7H, INR Comment 1.2, Activated Partial Thromboplast Time 27, Sodium Level 137, Potassium Level 4.0, Chloride Level 103, Carbon Dioxide Level 21, Anion Gap 13, Blood Urea Nitrogen 12, Creatinine 1.38H, Estimat Glomerular Filtration Rate 50, BUN/Creatinine Ratio 9, Glucose Level 285H, Calcium Level 9.4, Corrected Calcium 9.5, Magnesium Level 1.6, Total Bilirubin 0.4, Aspartate Amino Transf (AST/SGOT) 16, Alanine Aminotransferase (ALT/SGPT) 18, Alkaline Phosphatase 81, Myoglobin 47.3, Troponin I < 0.028, B-Type Natriuretic Peptide 122.7H, Total Protein 7.1, Albumin 3.9, Lipase 60 03/03/20 14:06: Glucometer 270H 03/03/20 15:24: Glucometer 217H A/P-Cardiology Admission Diagnosis Chest pain CAD PAF HTN Admission Status: Observation Assessment/Plan Chest pain, resembling accelerating angina. Planning for [facility] for further evaluation. Coronary artery disease-2001 history of CABG x4. 04/18/2012 PTCA and stent placement using bare-metal stent 4.0 x 18 mm integrity to the vein graft to the OM. 03/01/2016 cardiac catheterization showing severe instent restenosis in the vein graft to the obtuse marginal branch successful balloon angioplasty using 4.020 mm M or balloon expanded to 4.35 with excellent results. Patent vein graft to the right coronary artery, vein graft to the diagonal artery, AMANDA to the LAD with occluded [place] vessel proximally. Underwent repeat cardiac catheterization on September 22, 2016 after having unstable angina, revealing severe [place] disease, patent graft to the RCA, diagonal, LAD, occluded vein graft to the obtuse marginal branch. Has been having increased episodes of chest pain recently, planning for left heart catheterization History of intolerance to Brilinta causing increased dyspnea. Paroxysmal atrial flutter-status post Linq implantation. Maintained on digoxin, Eliquis. Was seen once in the past by Dr. Grover who discussed medical management versus ablation. Patient opted for medical management. We had long discussion discussing possible need for ablation in future, patient requested to continue with medical management. History of intolerance to amiodarone, seen by Dr. Tilley. Intolerant to Multaq secondary to diarrhea. Battery on Linq has reached end-of-life, planning for extraction of loop recorder during left heart catheterization Sick sinus syndrome, asymptomatic, intolerant to amiodarone and metoprolol. Continue to monitor [id number] score of 5, yearly risk of stroke without oral anticoagulation is 6.7 percent. Maintained on Eliquis Hypertension, controlled, continue to monitor. Hyperlipidemia, I will evaluate lipid profile and metabolic profile Peripheral vascular disease- intervention in March [address] Mckeon, Angiogram in February 2016 showed total occlusion of the posterior tibial artery and peroneal artery at the trifurcation level reconstructed by collateral down at the ankle with occlusion of the anterior tibial artery at the ankle level, moderate peripheral arterial disease on the left lower extremity down to the trifurcation. He was seen by heart and vascular care, repeated LISA on March 15, 2017 and reported to be abnormal but no change from baseline. Follows with heart and vascular Mild bilateral carotid stenosis, nonobstructive disease, follows with heart and vascular Chronic renal insufficiency, seen by Dr. Tilley, last checkup on my record from February 2018 showing creatinine 1.6, GFR 47. Continue to monitor Renal ultrasound was done in May 2018 reported normal kidney sizes bilaterally. History of pancreatitis, another admission in November 2016. Currently feeling better. Continue to monitor Degenerative joint disease Diabetes mellitus, followed and managed by primary care physician This is Varsha Guerrero PA-C, as a scribe for Dr. Stiles. Patient was seen and evaluated with Varsha, examination performed, management plan was discussed, agree with the current scribed note, I made few changes to the note using Italic font 79 years old gentleman with history of coronary artery disease, CABG, paroxysmal atrial fibrillation, has been having accelerating angina, was scheduled for cardiac catheterization in the past few months and canceled that. Has been doing well until this morning when he started to have chest pain described as dull in nature in the retrosternal area, came into the emergency room and took sublingual nitroglycerin reported relief of his chest pain with nitroglycerin. No active pain. Due to his extensive history was discussed management recommended cardiac catheterization possible PTCA. VARSHA KAT Mar 03, 2020 15:48 BISI STILES MD Mar 03, 2020 16:13
[2020-03-03] MEDS ORDERED: LIDOCAINE 1% INJ 20 ML 20 ML VIAL ONE (16:14)
[2020-03-03] MEDS ORDERED: HEParin (CATH LAB) 2,000 ML IV ONE (16:14)
[2020-03-03] MEDS ORDERED: MIDAZOLAM 5 MG/5 ML (VERSED) VIAL ONE (16:17)
[2020-03-03] MEDS ORDERED: fentaNYL INJECTION 100 MCG/2 ML AMP ONE (16:17)
[2020-03-03] MEDS ORDERED: NS IV 1000 ML 1,000 ML ONE (16:26)
[2020-03-03] MEDS ORDERED: NS IV 1000 ML 1,000 ML IV SCH (16:57)
--- NOTE | 2020-03-03 16:59 | Discharge Inst-Post CATH ---
Discharge Inst-CATH/EP Problems Reviewed?: Yes Post Cardiac Cath/EP D/C Inst Follow Up/Plan Appointment with Dr. GARCIA's office in 4 weeks <b>CARDIAC CATH/EP PROCEDURE DISCHARGE INSTRUCTIONS</b> ACTIVITY * Go Home directly and rest. * Limit activity of the leg (or wrist if it was used) for 7 days including aerobics, swimming, jogging, bicycling, etc. * Restrict stair-climbing for 7 days if possible, if not, climb up with your non-cath leg, then bring together on the same step. * Avoid lifting, pushing, pulling or excessive movement of the affected extremity for 7 days. * Customary sexual activity may be resumed after 2 days-use caution not to use a position that strains or causes pain to the affected extremity. * No driving for 24 hours. * NO SMOKING. * Avoid straining for bowel movements for 7 days. * Gentle walking on level ground is allowed. * Returning to work will depend on the type of procedure and the results. Your doctor will discuss this with you. CALL YOUR DOCTOR FOR ANY OF THE FOLLOWING: *If bleeding from the puncture site occurs- Apply gentle pressure to site with clean cloth and call your doctor or EMS. * If a knot or lump forms under the skin, increases in size, or causes pain. * If bruising appears to be worsening or moving further down your leg instead of disappearing. * Temperature above 101 F. CARE OF YOUR GROIN INCISION; * Bruising or purple discoloration of the skin near the puncture site is common. * You may shower only, no bathtub bathing for 5 days. Be careful to avoid slipping as your leg may feel stiff. * If a closure device was used on your femoral artery, please see the attached guide regarding care of the device and your leg. * Leave dressing on FOR 24 hours. CARE OF YOUR WRIST INCISION; * Bruising or purple discoloration of the skin near the puncture site is common. * You may shower. * DO NOT submerge wrist. * Leave dressing on FOR 24 hours. BISI GARCIA MD Mar 03, 2020 4:59 pm
[2020-03-03] MEDS ORDERED: PATIENT MAY USE OWN MEDS, ALL PO SCH (17:00)
--- NOTE | 2020-03-03 17:04 | Cardiac Cath Report ---
Cardiac Cath Report Physician (s)/Office Rep (s) Physician BISI GARCIA MD Pre-Procedure Diagnosis Pre-Procedure Diagnosis: Chest pain, coronary artery disease Post-Procedure Note Procedure Start Date: Mar 03, 2020 Name of Procedure: Left heart catheterization Left ventriculogram Vein graft angiogram AMANDA angiogram Findings/Procedure Note PROCEDURE NOTE: 79 years old gentleman with history of coronary artery disease, CABG, history of stent to the vein graft to the obtuse marginal branch in 2011. Has been having accelerating angina, admitted through the emergency room with acute chest pain responded to nitroglycerin, patient has canceled an outpatient cardiac catheterization. After explaining the procedure to the patient, all pros and cons were explained, all questions were answered. The patient signed the consent and then he was placed on the cardiac catheterization laboratory. Groin was prepped SL fashion local anesthesia was used. Sheath placed in the artery. Paz right and left catheter were used to access the coronary system.Vein Graft evaluated. AMANDA evaluated. Pigtail was used to access the left ventricular cavity. Left ventriculogram was done At the end of the procedure the sheath was removed. Closure device was used FINDINGS: Hemodynamics LV 103/13, end-diastolic pressure of 13 Aorta 103/67 mean of 64 ANATOMY: Left Main is occluded Left Anterior Descending is occluded proximally, AMANDA to LAD and vein graft to diagonal artery are patent filling the distal artery well Left Circumflex is occluded proximally, vein graft to the obtuse marginal branch is patent with excellent flow Right Coronory Artery is occluded proximally, vein graft to the right coronary artery is patent with good flow distally AMANDA to LAD is tortuous with good flow in the distal LAD Vein Graft evaluation showed 3 vein grafts Vein graft to obtuse marginal branch has patent stent proximally with good flow distally nonobstructive disease Vein graft to the diagonal artery has some ectasia proximally with 40-50 percent stenosis at the midportion slow flow, no significant obstructive disease Vein graft to the right coronary artery is patent with good flow distally LV Gram was done showing normal LV size and function, EF 60 percent CONCLUSION: 1. Severe [place] coronary artery disease corrected with the patent 4 bypass grafts. 2. Patent stent in the proximal vein graft to the obtuse marginal branch with good flow distally 3. Patent vein graft to the diagonal artery, vein graft to the right coronary artery and AMANDA to LAD with excellent flow distally 4. Normal left ventricular size and systolic function estimated ejection fraction 60 percent DISCUSSION AND RECOMMENDATION: Medical therapy is recommended no intervention is needed Anesthesia Type: Conscious Sedation Estimated blood loss (mL): 25 ml Contrast Amount: 60 ml Total Radiation Dose: 388 mGy Post-Procedure Diagnosis Post-operative diagnosis: Chest pain Coronary artery disease Hypertension Hyperlipidemia Diabetes mellitus BISI GARCIA MD Mar 03, 2020 5:04 pm
[2020-03-03 17:15] VITALS: BP 118/66
[2020-03-03 17:30] VITALS: BP 122/67
[2020-03-03 17:45] VITALS: BP 120/78
[2020-03-03 18:00] VITALS: BP 104/65
[2020-03-03 18:30] VITALS: BP 116/74
[2020-03-03 19:33] VITALS: BP 125/81
--- NOTE | 2020-03-03 21:06 | NUR ---
VSS. IV removed. entire discharge packet discussed with patient. patient denies having any further questions. patient up ad el, no difficulties. Patients son is his ride home. [id number] patient leaving ICU floor via wheel chair. Brigida MALDONADO took patient to ED entrance via wheel chair where they met patients son, who is his ride home. patient leaving via private vehicle.
[2020-03-04] MEDS ORDERED: ASPIRIN E.C. 81 MG (ECOTRIN) TAB PO SCH (09:00)
== END 2020-03-03 21:06 ==
LOC: EDUNIT# 13:49 → ER 13:50 → CATH 15:43 → CSD 17:10 → CATH 21:06
PROVIDERS: ATTEND Internal Medicine Cardiovascular Disease
DX: I25.119 Atherosclerotic heart disease of native coronary artery with unspecified angina pectoris (principal); E78.00 Pure hypercholesterolemia, unspecified; E78.5 Hyperlipidemia, unspecified; J44.9 Chronic obstructive pulmonary disease, unspecified; E11.51 Type 2 diabetes mellitus with diabetic peripheral angiopathy without gangrene; I48.91 Unspecified atrial fibrillation; I12.0 Hypertensive chronic kidney disease with stage 5 chronic kidney disease or end stage renal disease; N18.9 Chronic kidney disease, unspecified; K21.9 Gastro-esophageal reflux disease without esophagitis; K57.90 Diverticulosis of intestine, part unspecified, without perforation or abscess without bleeding; G89.29 Other chronic pain; F41.9 Anxiety disorder, unspecified; N40.0 Benign prostatic hyperplasia without lower urinary tract symptoms; Z79.01 Long term (current) use of anticoagulants; Z79.82 Long term (current) use of aspirin; Z79.899 Other long term (current) drug therapy; Z79.4 Long term (current) use of insulin; Z95.1 Presence of aortocoronary bypass graft; Z95.5 Presence of coronary angioplasty implant and graft; Z87.891 Personal history of nicotine dependence; Z86.73 Personal history of transient ischemic attack (TIA), and cerebral infarction without residual deficits; Z80.9 Family history of malignant neoplasm, unspecified
CPT/HCPCS: 71045; 80053; 82962; 83690; 83735; 83874; 83880; 84484; 85025; 85610; 85730; 93005; 93041; 93459; 99285; C1760; C1894; 36415

== ENCOUNTER 2020-05-16 19:15 | Emergency (ER) | payer MEDICARE, MEDICAID ==
[~2020-05-16] VITALS: Ht 182.9 cm; Wt 86.2 kg
[~2020-05-16 19:15] MED LIST changes: -AMIO200T4 PO; +AMIO200T6 PO; +CLN.1T PO; -CLON0.1T PO; -MONT10TA26 PO; +MONT10TA97 PO
[2020-05-16] MEDS ORDERED: hydrOXYzine (VISTARIL/ATARAX) 25 MG capsule/tablet PO ONE (19:30)
[2020-05-16 19:37] LABS: BASOPHILS % (AUTO) 0 % (0-10); EOSINOPHILS # (AUTO) 0.1 10^3/uL (0.0-0.3); EOSINOPHILS % (AUTO) 1 % (0-10); HEMATOCRIT 44 % (40-54); HEMOGLOBIN 14.3 g/dL (13.3-17.7); LYMPHOCYTES # (AUTO) 2.2 10^3/uL (1.0-4.0); LYMPHOCYTES % (AUTO) 25 % (12-44); MEAN CORPUSCULAR HEMOGLOBIN 28 pg (25-34); MEAN CORPUSCULAR HGB CONC 32 g/dL (32-36); MEAN CORPUSCULAR VOLUME 87 fL (80-99); MONOCYTES # (AUTO) 0.6 10^3/uL (0.0-1.0); MONOCYTES % (AUTO) 7 % (0-12); NEUTROPHILS % (AUTO) 68 % (42-75); PLATELET COUNT 326 10^3/uL (130-400); WHITE BLOOD COUNT 8.9 10^3/uL (4.3-11.0)
--- NOTE | 2020-05-16 19:42 | ED General ---
General Chief Complaint: Psych/Social Disorder Stated Complaint: GENERAL BODY PAIN Nursing Triage Note: PT TO ROOM #5 [facility]IA [facility] CART FROM HOME WITH C/O ANXIETY. PRIOR TO ARRIVAL EMS ACCESSED 20G IV TO L AC. UPON ARRIVAL PT REPORTS HIS RECENTLY LEFT HIM ET HE IS FEELING ANXIOUS. PT STATES, "MY NERVES ARE SHOT, I NEED SOMETHING TO SETTLE DOWN." PT DENIES SUICIDAL IDEATION OR SELF HARM ATTEMPT. A&OX4. Nursing Sepsis Screen: No Definite Risk Source of Information: Patient, EMS, Old Records History of Present Illness Date Seen by Provider: May 16, 2020 Time Seen by Provider: 19:18 Initial Comments PT ARRIVES VIA EMS FROM HOME POLICE WERE AT [facility] [place] PT STATES HIS DAUGHTER CALLED EMS AND POLICE PT STATES "MY NERVES ARE SHOT" "I NEED SOMETHING TO CALM ME DOWN" STATES HIS LEFT HIM IN THE LAST FEW DAYS, AND SHE CAME BY TODAY TO TEACHER ASST THE DOG, AND PT APPARENTLY GOT UPSET AND RAN OUT OF THE HOUSE, AND POLICE AND EMS WERE CALLED FOR AGITATION PT DENIES ANY SUICIDAL OR HOMICIDAL THOUGHTS/GESTURES PT STATES HE HAS NOT EATEN IN THE LAST 3 DAYS--"JUST WASN'T HUNGRY" DUE TO STRESS. NO LOSS OF TASTE OR SMELL PT HAS BEEN DRINKING FLUIDS WELL NO GI SYMPTOMS NO CHEST PAIN NO SHORTNESS OF BREATH NO PALPITATIONS STATES BLOOD SUGAR WAS 189 EARLIER TODAY TOOK AM MEDICATIONS BUT NO EVENING MEDICATIONS--PT UNABLE TO STATE WHAT ANY OF HIS MEDICATIONS ARE OR WHAT HE TAKES THEM FOR PT WITH HISTORY OF CAD AND HAS HAD CABG AND STENTS TO HEART AND LEGS. ALSO HAS HISTORY OF ATRIAL FIB/RVR PT WITH IDDM. PT DENIES ANY COVID-19 SYMPTOMS OR KNOWN EXPOSURE TO COVID-19 PT WITH A MULTITUDE OF VISITS, FOR VARIOUS COMPLAINTS. PCP: DR. AVALOS, [facility]--STATES HE SAW HIM 1 1/2 WEEKS AGO FOR ROUTINE FOLLOW UP. STATES HE CHANGED SOME OF HIS MEDICATIONS, BUT HAS NO IDEA WHAT MEDICATIONS WERE CHANGED OR HOW THEY WERE CHANGED EXERCISE EQUIPMENT SPECIALIST: DR. GARCIA--HAS NOT SEEN RECENTLY Allergies and Home Medications Allergies Coded Allergies: celecoxib (Unverified Allergy, Mild, TAKES ASPIRIN AT HOME, 01/28/19) diclofenac (Unverified Allergy, Mild, TAKES ASPIRIN AT HOME, 01/28/19) naproxen (Unverified Allergy, Mild, TAKES ASPIRIN AT HOME, 01/28/19) rosuvastatin (Unverified Allergy, Mild, 01/28/19) Penicillins (Verified Allergy, Unknown, 01/28/19) amoxicillin (Verified Allergy, Unknown, 01/28/19) fenofibrate (Unverified Allergy, Unknown, 01/28/19) gemfibrozil (Unverified Allergy, Unknown, 10/15/19) simvastatin (Unverified Allergy, Unknown, 01/28/19) Home Medications Apixaban 5 Mg Tablet, 5 MG PO BID, (Reported) Baclofen 10 Mg Tablet, 10 MG PO TID PRN for MUSCLE SPASMS, (Reported) Digoxin 125 Mcg Tablet, 125 MCG PO DAILY, (Reported) Diltiazem HCl 240 Mg Cap.er.24h, 240 MG PO DAILY, (Reported) Famotidine 20 Mg Tablet, 20 MG PO DAILY, (Reported) Fenofibrate,Micronized 134 Mg Capsule, 134 MG PO DAILY, (Reported) Gabapentin 300 Mg Capsule, 300 MG PO TID, (Reported) Glipizide 10 Mg Tablet, 10 MG PO DAILY, (Reported) Hydroxyzine Pamoate 50 Mg Capsule, 50 MG PO Q6H PRN for ANXIETY Prescribed by: ROMAIN KNIGHT on 05/16/202020 Insulin Detemir 100 Unit/1 Ml Insuln.pen, 30 UNIT SQ BID, (Reported) Montelukast Sodium 10 Mg Tablet, 10 MG PO HS, (Reported) Nitroglycerin 0.4 Mg Tab.subl, 0.4 MG SL UD PRN for CHEST PAIN, (Reported) MAX OF 3 TABS IN 15 MINUTES / CALL 911 IF PAIN REMAINS AFTER 5 MINUTES Pantoprazole Sodium 40 Mg Tablet.dr, 40 MG PO HS, (Reported) Pentoxifylline 400 Mg Tablet.er, 400 MG PO TID, (Reported) Sucralfate 1 Gm Tablet, 1 GM PO ACHS, (Reported) Tamsulosin HCl 0.4 Mg Cap, 0.4 MG PO DAILY, (Reported) Trazodone HCl 50 Mg Tablet, 50 MG PO HS, (Reported) Zolpidem Tartrate 10 Mg Tablet, 10 MG PO HS, (Reported) Patient Home Medication List Home Medication List Reviewed: Yes Review of Systems Review of Systems Constitutional: no symptoms reported, other (NO FEVER OR RECENT ILLNESS. NO COVID-19 SYMPTOMS OR KNOWN EXPOSURE TO COVID) EENTM: no symptoms reported Respiratory: no symptoms reported Cardiovascular: no symptoms reported Gastrointestinal: see HPI; No constipation, No diarrhea; loss of appetite; No nausea, No vomiting Genitourinary: no symptoms reported Musculoskeletal: no symptoms reported Skin: no symptoms reported Psychiatric/Neurological: See HPI, Anxiety, Depressed Hematologic/Lymphatic: No Symptoms Reported Immunological/Allergic: no symptoms reported Past Txzouze-Uhqqlb-Sycbno Hx Past Med/Social Hx: Reviewed and Corrections made Patient Social History Alcohol Use: Rarely Uses Number of Drinks Today: AA Alcohol Beverage of Choice: Beer Recreational Drug Use: No Smoking Status: Former Smoker Type Used: Cigarettes Former Smoker, Quit: Apr 12, 2000 2nd Hand Smoke Exposure: No Recent Foreign Travel: No Contact w/Someone Who Travel: No Recent Infectious Disease Expo: No Recent Hopitalizations: No Physical Abuse: No Sexual Abuse: No Immunizations Up To Date Tetanus Booster (TDap): Less than 5yrs PED Vaccines UTD: No Date of Pneumonia Vaccine: May 22, 2017 Date of Influenza Vaccine: Mar 08, 2018 Seasonal Allergies Seasonal Allergies: No Past Medical History Surgeries: Yes (CORONARY BYPASS X4;LINQ; BILAT TKR;STENTS IN LEGS;LUMBAR LAMINECTOMY) Abdominal, Angioplasty, Cardiac, CABG, Coronary Stent, Eye Surgery, Gallbladder, Joint Replacement, Open Heart Surgery, Orthopedic, Vascular Surgery Respiratory: Yes (CHRONIC DYSPNEA ON EXERTION) Sleep Apnea, COPD Currently Using CPAP: No Currently Using BIPAP: No Cardiac: Yes (LINQ DEVICE IN PLACE; S/P CABG; CARDIAC AND LEG STENTS;) Atrial Fibrillation, Chronic Edema/Swelling, Coronary Artery Disease, Heart Attack, High Cholesterol, Hypertension, Peripheral Vascular Neurological: Yes (POSSIBLE STROKE/ TIA) Stroke, TIA Reproductive Disorders: No Sexually Transmitted Disease: No HIV/AIDS: No Genitourinary: Yes (RENAL INSUFFICIENCY) Benign Prostatic Hyperpl, Prostate Problems, Renal Failure Gastrointestinal: Yes (GASTROPARESIS;ESOPHAGEAL STRICTURES) Abdominal Hernia, Gastroesophageal Reflux, Chronic Constipation, Diverticulosis, Pancreatitis, Polyps, Esophagitis, Hiatal Hernia, Gall Bladder Disease Musculoskeletal: Yes (OLECRANON BURSITIS, CHRONIC NECK PAIN, DISH SYNDROME;BILAT TKR) Degenerate Disk Disease, Arthritis, Chronic Back Pain Endocrine: Yes Diabetes, Insulin dep HEENT: Yes Cataract Loss of Vision: Denies Hearing Impairment: Denies Cancer: No Psychosocial: Yes Anxiety Integumentary: No Blood Disorders: No Adverse Reaction/Blood Tranf: No (N/A) Family Medical History Cancer G8 BROTHER Cataract 19 FATHER 19 MOTHER G8 BROTHER G8 BROTHER G8 SISTER Congestive heart failure 19 FATHER 19 MOTHER Family history: Arthritis 19 FATHER 19 MOTHER G8 BROTHER G8 BROTHER G8 SISTER G8 SISTER DAUGHTER SON Family history: Breast disease DAUGHTER Family history: Cardiovascular disease 19 FATHER Family history: Diabetes mellitus 19 FATHER G8 BROTHER G8 SISTER Family history: Hypertension 19 FATHER 19 MOTHER G8 BROTHER G8 BROTHER G8 SISTER G8 SISTER DAUGHTER SON Family history: Thyroid disorder DAUGHTER Heart disease 19 FATHER 19 MOTHER G8 BROTHER Hypercholesterolemia 19 FATHER 19 MOTHER G8 BROTHER G8 BROTHER G8 SISTER Myocardial infarction 19 FATHER 19 MOTHER G8 BROTHER No Family History of: Abdominal aortic aneurysm Robel's disease Alcoholism Aphasia Cancer of colon Chest pain Congenital heart disease Cystic fibrosis Dementia Dysphagia Family history: Allergy Family history: Alzheimer's disease Family history: Asthma Family history: Coronary thrombosis Family history: Gastrointestinal disease Family history: Glaucoma Family history: Osteoporosis Headache Hearing loss Hereditary disease History of - anemia History of - disorder History of - respiratory disease History of drug abuse Human immunodeficiency virus (HIV) seropositivity Infertile Kidney disease Malignant neoplasm of lung Parkinson's disease Prostate cancer Psychotic disorder Seizure disorder Stroke Tuberculosis Visual impairment CAD Over 55 Years Old PAST SURGICAL HISTORY: -CARDIAC CATHS--STENTS IN HEART AND IN LEGS. LAST CARDIAC CATH 03/03/20--PATENT STENTS/GRAFTS, NO INTERVENTION -CABG -LINQ DEVICE IMPLANTED -LUMBAR LAMINECTOMY -BILATERAL TOTAL KNEE REPLACEMENTS -EGD'S WITH DILATIONS--LAST ONE 10/2019. -HIATAL HERNIA REPAIR/MAURISIO FUNDOPLICATION 2004 - Physical Exam Vital Signs Vital Signs - First Documented 05/16/20 19:19 Temp 35.9 Pulse 76 Resp 18 B/P (MAP) 158/97 (117) Pulse Ox 97 O2 Delivery Room Air Capillary Refill : Less Than 3 Seconds Height, Weight, BMI Height: 6'0" Weight: 180lbs. 4.0oz. [id number]; 25.00 BMI Method:Stated General Appearance: No Apparent Distress, WD/WN, Anxious Neck: Full Range of Motion, Normal Inspection, Non Tender, Supple Respiratory: Normal Breath Sounds, No Accessory Muscle Use, No Respiratory Distress Cardiovascular: Regular Rate, Rhythm, No Edema, No JVD, No Murmur, Normal Peripheral Pulses Gastrointestinal: Normal Bowel Sounds, No Organomegaly, No Pulsatile Mass, Non Tender, Soft Back: Normal Inspection, No CVA Tenderness Extremity: Normal Capillary Refill, Normal Inspection, Normal Range of Motion, Non Tender, No Calf Tenderness, No Pedal Edema Neurologic/Psychiatric: Alert, Oriented x3, No Motor/Sensory Deficits, mechanical maintenance II- XII Norm as Tested, Other (ANXOIUS) Skin: Normal Color, Warm/Dry, Tattoos/Piercings (TATTOOS) Progress/Results/Core Measures Suspected Sepsis Recent Fever Within 48 Hours: No Infection Criteria Present: None New/Unexplained Altered Menta: No Sepsis Screen: No Definite Risk SIRS Temperature: Pulse: 76 Respiratory Rate: 18 Laboratory Tests 05/16/20 19:20: White Blood Count 8.9 Blood Pressure 158 /97 Mean: 117 Laboratory Tests 05/16/20 19:20: Creatinine 1.49H, INR Comment 1.2, Platelet Count 326, Total Bilirubin 0.5 Results/Orders Lab Results Laboratory Tests Test 05/16/20 19:20 05/16/20 19:40 Range/Units White Blood Count 8.9 4.3-11.0 10^3/uL Red Blood Count 5.07 4.30-5.52 10^6/uL Hemoglobin 14.3 13.3-17.7 g/dL Hematocrit 44 40-54 % Mean Corpuscular Volume 87 80-99 fL Mean Corpuscular Hemoglobin 28 25-34 pg Mean Corpuscular Hemoglobin Concent 32 32-36 g/dL Red Cell Distribution Width 14.6 H 10.0-14.5 % Platelet Count 326 130-400 10^3/uL Mean Platelet Volume 10.0 9.0-12.2 fL Immature Granulocyte % (Auto) 0 % Neutrophils (%) (Auto) 68 42-75 % Lymphocytes (%) (Auto) 25 12-44 % Monocytes (%) (Auto) 7 0-12 % Eosinophils (%) (Auto) 1 0-10 % Basophils (%) (Auto) 0 0-10 % Neutrophils # (Auto) 6.0 1.8-7.8 10^3/uL Lymphocytes # (Auto) 2.2 1.0-4.0 10^3/uL Monocytes # (Auto) 0.6 0.0-1.0 10^3/uL Eosinophils # (Auto) 0.1 0.0-0.3 10^3/uL Basophils # (Auto) 0.0 0.0-0.1 10^3/uL Immature Granulocyte # (Auto) 0.0 0.0-0.1 10^3/uL Prothrombin Time 15.1 H 12.2-14.7 SEC INR Comment 1.2 0.8-1.4 Activated Partial Thromboplast Time 29 24-35 SEC Sodium Level 137 135-145 MMOL/L Potassium Level 3.6 3.6-5.0 MMOL/L Chloride Level 103 98-107 MMOL/L Carbon Dioxide Level 22 21-32 MMOL/L Anion Gap 12 5-14 MMOL/L Blood Urea Nitrogen 11 7-18 MG/DL Creatinine 1.49 H 0.60-1.30 MG/DL Estimat Glomerular Filtration Rate 46 BUN/Creatinine Ratio 7 Glucose Level 164 H 70-105 MG/DL Calcium Level 9.7 8.5-10.1 MG/DL Corrected Calcium 9.4 8.5-10.1 MG/DL Magnesium Level 1.8 1.6-2.4 MG/DL Total Bilirubin 0.5 0.1-1.0 MG/DL Aspartate Amino Transf (AST/SGOT) 35 H 5-34 U/L Alanine Aminotransferase (ALT/SGPT) 26 0-55 U/L Alkaline Phosphatase 75 40-136 U/L Troponin I < 0.028 <0.028 NG/ML B-Type Natriuretic Peptide 21.9 <100.0 PG/ML Total Protein 7.8 6.4-8.2 GM/DL Albumin 4.4 3.2-4.5 GM/DL TSH [place] Testing 1.60 0.35-4.94 UIU/ML Serum Alcohol < 10 <10 MG/DL Urine Color YELLOW Urine Clarity CLEAR Urine pH 6.0 5-9 Urine Specific [place] <=1.005 1.016-1.022 Urine Protein NEGATIVE NEGATIVE Urine Glucose (UA) NEGATIVE NEGATIVE Urine Ketones NEGATIVE NEGATIVE Urine Nitrite NEGATIVE NEGATIVE Urine Bilirubin NEGATIVE NEGATIVE Urine Urobilinogen 0.2 < = 1.0 MG/DL Urine Leukocyte Esterase NEGATIVE NEGATIVE Urine RBC (Auto) NEGATIVE NEGATIVE Urine RBC NONE /HPF Urine WBC NONE /HPF Urine Squamous Epithelial Cells 0-2 /HPF Urine Crystals NONE /LPF Urine Bacteria NEGATIVE /HPF Urine Casts NONE /LPF Urine Mucus NEGATIVE /LPF Urine Culture Indicated NO Urine Opiates Screen NEGATIVE NEGATIVE Urine Oxycodone Screen NEGATIVE NEGATIVE Urine Methadone Screen NEGATIVE NEGATIVE Urine Propoxyphene Screen NEGATIVE NEGATIVE Urine Barbiturates Screen NEGATIVE NEGATIVE Ur Tricyclic Antidepressants Screen NEGATIVE NEGATIVE Urine Phencyclidine Screen NEGATIVE NEGATIVE Urine Amphetamines Screen NEGATIVE NEGATIVE Urine Methamphetamines Screen NEGATIVE NEGATIVE Urine Benzodiazepines Screen NEGATIVE NEGATIVE Urine Cocaine Screen NEGATIVE NEGATIVE Urine Cannabinoids Screen NEGATIVE NEGATIVE My Orders Orders - ROMAIN KNIGHT DO Ed Iv/Invasive Line Start (05/16/20 19:22) Ekg Tracing (05/16/20 19:22) Monitor-Rhythm Ecg Trace Only (05/16/20 19:22) Alcohol (05/16/20 19:22) BNP (05/16/20 19:22) Cbc With Automated Diff (05/16/20 19:22) Comprehensive Metabolic Panel (05/16/20 19:22) Drug Screen Stat (Urine) (05/16/20 19:22) Magnesium (05/16/20 19:22) Protime With Inr (05/16/20 19:22) Partial Thromboplastin Time (05/16/20 19:22) Thyroid Analyzer (05/16/20 19:22) Ua Culture If Indicated (05/16/20 19:22) Troponin I (05/16/20 19:22) Hydroxyzine Cap/Tab (Vistaril) (05/16/20 19:30) Medications Given in ED Current Medications Medications Dose Ordered Sig/Alka Route Start Time Stop Time Status Last Admin Dose Admin Hydroxyzine Pamoate 50 mg ONCE ONCE PO 05/16/20 19:30 05/16/20 19:33 DC 05/16/20 19:40 50 MG Vital Signs/I&O 05/16/20 05/16/20 19:19 20:37 Temp 35.9 35.9 Pulse 76 79 Resp 18 17 B/P (MAP) 158/97 (117) 165/106 (117) Pulse Ox 97 98 O2 Delivery Room Air Room Air Capillary Refill : Less Than 3 Seconds 2 Blood Pressure Mean: 117 Progress Note : Progress Note GIVEN HYDROXYZINE FOR ANXIETY UNEVENTFUL ER STAY ECG Initial ECG Impression Date: May 16, 2020 Initial ECG Impression Time: 19:29 Initial ECG Rate: 75 Initial ECG Rhythm: Normal Sinus Departure Impression Primary Impression: Anxiety Disposition: 01 HOME, SELF-CARE Condition: Stable Departure-Patient Inst. Referrals: ISRAEL AVALOS MD (PCP) Primary Care Physician IRAJ HERRERA MD (Family) Primary Care Physician Patient Instructions: Anxiety, Adult (DC) Add. Discharge Instructions: HOME, REST TAKE YOUR MEDICATIONS PRESCRIBED FOLLOW UP WITH YOUR DR THIS WEEK FOR FURTHER CARE All discharge instructions reviewed with patient and/or family. Voiced understanding. Scripts Hydroxyzine Pamoate (Hydroxyzine Pamoate) 50 Mg Capsule 50 MG PO Q6H PRN for ANXIETY, #15 CAP Prov: ROMAIN KNGIHT DO 05/16/20 ROMAIN KNIGHT DO May 16, 2020 19:42
[2020-05-16 19:48] LABS: ALBUMIN 4.4 GM/DL (3.2-4.5); CHLORIDE 103 MMOL/L (98-107); POTASSIUM 3.6 MMOL/L (3.6-5.0); SODIUM 137 MMOL/L (135-145)
[2020-05-16 19:49] LABS: BILIRUBIN,URINE NEGATIVE (NEGATIVE); CLARITY,URINE CLEAR; COLOR,URINE YELLOW; GLUCOSE, URINE (UA) NEGATIVE (NEGATIVE); KETONES,URINE NEGATIVE (NEGATIVE); LEUKOCYTE ESTERASE ,URINE NEGATIVE (NEGATIVE); NITRITE,URINE NEGATIVE (NEGATIVE); PROTEIN,URINE NEGATIVE (NEGATIVE)
[2020-05-16 19:49] LABS: CALCIUM 9.7 MG/DL (8.5-10.1); INR 1.2 (0.8-1.4); PROTHROMBIN TIME PATIENT 15.1 SEC (12.2-14.7)
[2020-05-16 19:50] LABS: GLUCOSE 164 MG/DL (70-105); TOTAL PROTEIN 7.8 GM/DL (6.4-8.2)
[2020-05-16 19:51] LABS: CARBON DIOXIDE 22 MMOL/L (21-32)
[2020-05-16 19:52] LABS: BILIRUBIN,TOTAL 0.5 MG/DL (0.1-1.0)
[2020-05-16 19:54] LABS: ALKALINE PHOSPHATASE 75 U/L (40-136); CREATININE SERUM 1.49 MG/DL (0.60-1.30); GFR ESTIMATED 46
[2020-05-16 19:55] LABS: BUN/CREATININE RATIO 7
[2020-05-16 19:56] LABS: BACTERIA,URINE NEGATIVE /HPF; SQUAMOUS EPITHELIAL CELL,UR 0-2 /HPF
[2020-05-16 19:57] LABS: ALANINE AMINOTRANSFERASE 26 U/L (0-55); MAGNESIUM 1.8 MG/DL (1.6-2.4)
[2020-05-16 20:05] LABS: AMPHETAMINE SCREEN, URINE NEGATIVE (NEGATIVE); BARBITURATE SCREEN URINE NEGATIVE (NEGATIVE); BENZODIAZEPINES SCREEN URINE NEGATIVE (NEGATIVE); CANNABINOID SCREEN, URINE NEGATIVE (NEGATIVE); COCAINE SCREEN URINE NEGATIVE (NEGATIVE); METHADONE STAT NEGATIVE (NEGATIVE); METHAMPHETAMINE SCREEN URINE S NEGATIVE (NEGATIVE); OPIATE SCREEN URINE NEGATIVE (NEGATIVE); OXYCODONE STAT NEGATIVE (NEGATIVE); PROPOXYPHENE STAT NEGATIVE (NEGATIVE); TRICYCLIC ANTIDEPRESSANTS SCRE NEGATIVE (NEGATIVE)
[2020-05-16] MEDS ORDERED: HYDR50CA3 PO (20:21)
--- NOTE | 2020-05-16 20:25 | NUR ---
PER PT REQUEST, SPOKE WITH DAUGHTER, HARRIS, REGARDING DISCHARGE INSTRUCTIONS. HARRIS VOICES NO FURTHER QUESTIONS OR CONCERNS.
[2020-05-16 20:37] VITALS: BP 165/106
== END 2020-05-16 20:38 | disposition home or self-care (01) ==
LOC: EDUNIT# 19:15 → ER 19:17
DX: F41.9 Anxiety disorder, unspecified (principal); K21.9 Gastro-esophageal reflux disease without esophagitis; I25.2 Old myocardial infarction; I48.91 Unspecified atrial fibrillation; E11.9 Type 2 diabetes mellitus without complications; I10 Essential (primary) hypertension; E78.00 Pure hypercholesterolemia, unspecified; Z88.0 Allergy status to penicillin; Z88.1 Allergy status to other antibiotic agents; Z88.6 Allergy status to analgesic agent; Z88.8 Allergy status to other drugs, medicaments and biological substances; Z87.891 Personal history of nicotine dependence; Z95.1 Presence of aortocoronary bypass graft; Z95.5 Presence of coronary angioplasty implant and graft; Z82.61 Family history of arthritis; Z83.3 Family history of diabetes mellitus; Z82.49 Family history of ischemic heart disease and other diseases of the circulatory system; Z80.9 Family history of malignant neoplasm, unspecified; Z79.01 Long term (current) use of anticoagulants; Z79.4 Long term (current) use of insulin
CPT/HCPCS: 80053; 80306; 81000; 83735; 83880; 84443; 84484; 85025; 85610; 85730; 93005; 93041; 99284; G0480; 36415; 80320

== ENCOUNTER 2020-08-06 20:22 | Emergency (ER) | payer MEDICARE, MEDICAID ==
[~2020-08-06] VITALS: Ht 183 cm; Wt 86.0 kg
[~2020-08-06 20:22] MED LIST changes: +HYDR50CA3 PO; +MONT10TA32 PO; -MONT10TA97 PO; +NAPR-1088 PO; -NAPR250T6 PO
[2020-08-06] MEDS ORDERED: NS IV 1000 ML 1,000 ML IV SCH (20:45)
--- NOTE | 2020-08-06 20:47 | ED General ---
General Stated Complaint: DIZZINESS/WEAKNESS Source of Information: Patient Exam Limitations: No Limitations History of Present Illness Date Seen by Provider: Aug 06, 2020 Time Seen by Provider: 20:42 Initial Comments Patient is a 80-year-old male who presents to the emergency department today with a chief complaint of generalized weakness, dizziness and a little shortness of breath. Patient states that he was working on his truck outside at around 3:00 this afternoon when he became dizzy. He states at that time he was also a little short of breath. Patient states his feelings of generalized weakness per sisted and he was concerned that he might be having a "heart issue". He presented to the emergency department for further investigation of this complaint. Patient has no recent illnesses such as fevers, chills, productive cough. He is not having chest pain, nausea, urinary problems or diarrhea. No recent sick contacts. He is not currently feeling dizzy. At the bedside I did do some quick orthostatic vital signs and noted that the patient dropped from a systolic blood pressure of 124 while lying in the bed to a systolic blood pressure of 79 when standing at the bedside. Patient states that he was not really symptomatic when he stood up. All other review of systems reviewed and negative except as stated above. Timing/Duration: 4-6 Hours Severity: Mild Associated Systoms: Shortness of Air, Weakness Allergies and Home Medications Allergies Coded Allergies: celecoxib (Unverified Allergy, Mild, TAKES ASPIRIN AT HOME, 01/28/19) diclofenac (Unverified Allergy, Mild, TAKES ASPIRIN AT HOME, 01/28/19) naproxen (Unverified Allergy, Mild, TAKES ASPIRIN AT HOME, 01/28/19) rosuvastatin (Unverified Allergy, Mild, 01/28/19) Penicillins (Verified Allergy, Unknown, 01/28/19) amoxicillin (Verified Allergy, Unknown, 01/28/19) fenofibrate (Unverified Allergy, Unknown, 01/28/19) gemfibrozil (Unverified Allergy, Unknown, 10/15/19) simvastatin (Unverified Allergy, Unknown, 01/28/19) Home Medications Apixaban 5 Mg Tablet, 5 MG PO BID, (Reported) Baclofen 10 Mg Tablet, 10 MG PO TID PRN for MUSCLE SPASMS, (Reported) Digoxin 125 Mcg Tablet, 125 MCG PO DAILY, (Reported) Diltiazem HCl 240 Mg Cap.er.24h, 240 MG PO DAILY, (Reported) Famotidine 20 Mg Tablet, 20 MG PO DAILY, (Reported) Fenofibrate,Micronized 134 Mg Capsule, 134 MG PO DAILY, (Reported) Gabapentin 300 Mg Capsule, 300 MG PO TID, (Reported) Glipizide 10 Mg Tablet, 10 MG PO DAILY, (Reported) Hydroxyzine Pamoate 50 Mg Capsule, 50 MG PO Q6H PRN for ANXIETY Prescribed by: ROMAIN KNIGHT on 05/16/202020 Insulin Detemir 100 Unit/1 Ml Insuln.pen, 30 UNIT SQ BID, (Reported) Montelukast Sodium 10 Mg Tablet, 10 MG PO HS, (Reported) Nitroglycerin 0.4 Mg Tab.subl, 0.4 MG SL UD PRN for CHEST PAIN, (Reported) MAX OF 3 TABS IN 15 MINUTES / CALL 911 IF PAIN REMAINS AFTER 5 MINUTES Pantoprazole Sodium 40 Mg Tablet.dr, 40 MG PO HS, (Reported) Pentoxifylline 400 Mg Tablet.er, 400 MG PO TID, (Reported) Sucralfate 1 Gm Tablet, 1 GM PO ACHS, (Reported) Tamsulosin HCl 0.4 Mg Cap, 0.4 MG PO DAILY, (Reported) Trazodone HCl 50 Mg Tablet, 50 MG PO HS, (Reported) Zolpidem Tartrate 10 Mg Tablet, 10 MG PO HS, (Reported) Patient Home Medication List Home Medication List Reviewed: Yes Review of Systems Review of Systems Constitutional: see HPI EENTM: no symptoms reported Respiratory: No cough; short of breath Cardiovascular: no symptoms reported; No chest pain Gastrointestinal: no symptoms reported Genitourinary: no symptoms reported Musculoskeletal: no symptoms reported Skin: no symptoms reported Psychiatric/Neurological: Other (dizziness and mild generalized weakness) All Other Systems Reviewed Negative Unless Noted: Yes Past Wxceflw-Ruodtp-Gmntuq Hx Patient Social History Alcohol Beverage of Choice: Beer Type Used: Cigarettes Former Smoker, Quit: Apr 12, 2000 2nd Hand Smoke Exposure: No Recent Hopitalizations: No Immunizations Up To Date Tetanus Booster (TDap): Less than 5yrs PED Vaccines UTD: No Date of Pneumonia Vaccine: May 22, 2017 Date of Influenza Vaccine: Mar 08, 2018 Seasonal Allergies Seasonal Allergies: No Past Medical History Surgeries: Yes (CORONARY BYPASS X4;LINQ; BILAT TKR;STENTS IN LEGS;LUMBAR LAMINECTOMY) Abdominal, Angioplasty, Cardiac, CABG, Coronary Stent, Eye Surgery, Gallbladder, Joint Replacement, Open Heart Surgery, Orthopedic, Vascular Surgery Respiratory: Yes (CHRONIC DYSPNEA ON EXERTION) Sleep Apnea, COPD Currently Using CPAP: No Currently Using BIPAP: No Cardiac: Yes (LINQ DEVICE IN PLACE; S/P CABG; CARDIAC AND LEG STENTS;) Atrial Fibrillation, Chronic Edema/Swelling, Coronary Artery Disease, Heart Attack, High Cholesterol, Hypertension, Peripheral Vascular Neurological: Yes (POSSIBLE STROKE/ TIA) Stroke, TIA Reproductive Disorders: No Sexually Transmitted Disease: No HIV/AIDS: No Genitourinary: Yes (RENAL INSUFFICIENCY) Benign Prostatic Hyperpl, Prostate Problems, Renal Failure Gastrointestinal: Yes (GASTROPARESIS;ESOPHAGEAL STRICTURES) Abdominal Hernia, Gastroesophageal Reflux, Chronic Constipation, Diverticulosis, Pancreatitis, Polyps, Esophagitis, Hiatal Hernia, Gall Bladder Disease Musculoskeletal: Yes (OLECRANON BURSITIS, CHRONIC NECK PAIN, DISH SYNDROME;BILAT TKR) Degenerate Disk Disease, Arthritis, Chronic Back Pain Endocrine: Yes Diabetes, Insulin dep HEENT: Yes Cataract Loss of Vision: Denies Hearing Impairment: Denies Cancer: No Psychosocial: Yes Anxiety Integumentary: No Blood Disorders: No Adverse Reaction/Blood Tranf: No (N/A) Family Medical History Cancer G8 BROTHER Cataract 19 FATHER 19 MOTHER G8 BROTHER G8 BROTHER G8 SISTER Congestive heart failure 19 FATHER 19 MOTHER Family history: Arthritis 19 FATHER 19 MOTHER G8 BROTHER G8 BROTHER G8 SISTER G8 SISTER DAUGHTER SON Family history: Breast disease DAUGHTER Family history: Cardiovascular disease 19 FATHER Family history: Diabetes mellitus 19 FATHER G8 BROTHER G8 SISTER Family history: Hypertension 19 FATHER 19 MOTHER G8 BROTHER G8 BROTHER G8 SISTER G8 SISTER DAUGHTER SON Family history: Thyroid disorder DAUGHTER Heart disease 19 FATHER 19 MOTHER G8 BROTHER Hypercholesterolemia 19 FATHER 19 MOTHER G8 BROTHER G8 BROTHER G8 SISTER Myocardial infarction 19 FATHER 19 MOTHER G8 BROTHER No Family History of: Abdominal aortic aneurysm [place]'s disease Alcoholism Aphasia Cancer of colon Chest pain Congenital heart disease Cystic fibrosis Dementia Dysphagia Family history: Allergy Family history: Alzheimer's disease Family history: Asthma Family history: Coronary thrombosis Family history: Gastrointestinal disease Family history: Glaucoma Family history: Osteoporosis Headache Hearing loss Hereditary disease History of - anemia History of - disorder History of - respiratory disease History of drug abuse Human immunodeficiency virus (HIV) seropositivity Infertile Kidney disease Malignant neoplasm of lung Parkinson's disease Prostate cancer Psychotic disorder Seizure disorder Stroke Tuberculosis Visual impairment CAD Over 55 Years Old PAST SURGICAL HISTORY: -CARDIAC CATHS--STENTS IN HEART AND IN LEGS. LAST CARDIAC CATH 03/03/20--PATENT STENTS/GRAFTS, NO INTERVENTION -CABG -LINQ DEVICE IMPLANTED -LUMBAR LAMINECTOMY -BILATERAL TOTAL KNEE REPLACEMENTS -EGD'S WITH DILATIONS--LAST ONE 10/2019. -HIATAL HERNIA REPAIR/MAURISIO FUNDOPLICATION 2004 - Physical Exam Vital Signs Vital Signs - First Documented 08/06/20 20:29 Temp 36.7 Pulse 75 Resp 18 B/P (MAP) 124/79 (94) Pulse Ox 99 O2 Delivery Room Air Capillary Refill : Height, Weight, BMI Height: 6'0" Weight: 180lbs. 4.0oz. [id number]; 25.00 BMI Method:Stated General Appearance: No Apparent Distress, WD/WN Eyes: Bilateral Eye Normal Inspection, Bilateral Eye PERRL, Bilateral Eye EOMI HEENT: PERRL/EOMI, TMs Normal Neck: Full Range of Motion, Supple Respiratory: Lungs Clear, Normal Breath Sounds, No Accessory Muscle Use, No Respiratory Distress Cardiovascular: Regular Rate, Rhythm Gastrointestinal: Normal Bowel Sounds, Non Tender, Soft Extremity: Normal Inspection, Normal Range of Motion, Non Tender, No Pedal Edema Neurologic/Psychiatric: Alert, Oriented x3, No Motor/Sensory Deficits, Normal Mood/Affect, supervisor drying and winding II-XII Norm as Tested Skin: Normal Color, Warm/Dry Progress/Results/Core Measures Suspected Sepsis SIRS Temperature: Pulse: Respiratory Rate: Blood Pressure / Mean: Laboratory Tests 08/06/20 20:44: Creatinine 1.65H Results/Orders Lab Results Laboratory Tests Test 08/06/20 20:44 Range/Units Sodium Level 137 135-145 MMOL/L Potassium Level 4.2 3.6-5.0 MMOL/L Chloride Level 105 98-107 MMOL/L Carbon Dioxide Level 19 L 21-32 MMOL/L Anion Gap 13 5-14 MMOL/L Blood Urea Nitrogen 12 7-18 MG/DL Creatinine 1.65 H 0.60-1.30 MG/DL Estimat Glomerular Filtration Rate 41 BUN/Creatinine Ratio 7 Glucose Level 166 H 70-105 MG/DL Calcium Level 9.5 8.5-10.1 MG/DL My Orders Orders - RITA ISSA MD Ed Iv/Invasive Line Start (08/06/20 20:39) Basic Metabolic Panel (08/06/20 20:39) Ns Iv 1000 Ml (Sodium Chloride 0.9%) (08/06/20 20:45) Vital Signs/I&O 08/06/20 20:29 Temp 36.7 Pulse 75 Resp 18 B/P (MAP) 124/79 (94) Pulse Ox 99 O2 Delivery Room Air Capillary Refill : Progress Note : Time: 21:40 Progress Note patient reassessed and feels improved. Treated in the ED with 1 liter of NS. BM P reviewed and reassuring. Creatinine slightly higher than previous labs. will have the patient follow up with his primary care doctor. He verbalizes understanding. All questions are sought and answered. Patient is stable for discharge. Departure Impression Primary Impression: Generalized weakness Additional Impression: Orthostatic hypotension Disposition: 01 HOME, SELF-CARE Condition: Stable Departure-Patient Inst. Decision time for Depature: 21:43 Referrals: ISRAEL AVALOS MD (PCP) Primary Care Physician IRAJ HERRERA MD (Family) Primary Care Physician Patient Instructions: Generalized Weakness Add. Discharge Instructions: Please follow-up with your primary care provider. Drink plenty of fluids to stay well-hydrated. Return to the emergency department for any new, worsening symptoms or any other emergent concerns. RITA ISSA MD Aug 06, 2020 20:46
[2020-08-06 21:07] LABS: POTASSIUM 4.2 MMOL/L (3.6-5.0)
[2020-08-06 21:08] LABS: CALCIUM 9.5 MG/DL (8.5-10.1)
[2020-08-06 21:13] LABS: CREATININE SERUM 1.65 MG/DL (0.60-1.30)
[2020-08-06 21:48] VITALS: BP 138/78
== END 2020-08-06 21:48 | disposition home or self-care (01) ==
LOC: EDUNIT# 20:22 → ER 20:23
DX: R53.1 Weakness (principal); I95.1 Orthostatic hypotension; K21.9 Gastro-esophageal reflux disease without esophagitis; E11.9 Type 2 diabetes mellitus without complications; I25.2 Old myocardial infarction; I10 Essential (primary) hypertension; F41.9 Anxiety disorder, unspecified; E78.00 Pure hypercholesterolemia, unspecified; I48.91 Unspecified atrial fibrillation; N40.0 Benign prostatic hyperplasia without lower urinary tract symptoms; Z86.73 Personal history of transient ischemic attack (TIA), and cerebral infarction without residual deficits; Z87.891 Personal history of nicotine dependence; Z95.5 Presence of coronary angioplasty implant and graft; Z88.0 Allergy status to penicillin; Z88.1 Allergy status to other antibiotic agents; Z88.6 Allergy status to analgesic agent; Z88.8 Allergy status to other drugs, medicaments and biological substances; Z82.61 Family history of arthritis; Z80.9 Family history of malignant neoplasm, unspecified; Z95.1 Presence of aortocoronary bypass graft; Z79.01 Long term (current) use of anticoagulants; Z79.4 Long term (current) use of insulin
CPT/HCPCS: 36415; 80048

== ENCOUNTER 2020-09-13 21:07 | Emergency (ER) | payer MEDICARE, MEDICAID ==
[~2020-09-13] VITALS: Ht 182.9 cm; Wt 86.0 kg
[~2020-09-13 21:07] MED LIST changes: -DRON400T2; -DRON400T2 PO; +DRON400T6; +DRON400T6 PO
[2020-09-13 21:35] VITALS: BP 158/86
--- NOTE | 2020-09-13 22:13 | ED Integumentary General ---
General Chief Complaint: Skin/Wound Problems Stated Complaint: R LEG SWOLLEN TICK BITE History of Present Illness Date Seen by Provider: September 13, 2020 Time Seen by Provider: 21:55 Initial Comments Patient is a 80-year-old male who presents to the emergency department today with concern for a tick bite on his right lower leg. Patient states that he pulled a bunch of ticks off of them yesterday and then this evening noticed some itching and some discomfort on his right lower leg. Patient states that he lo oked down and noted a tick that was burrowed down "pretty deep" in his leg. He was able to pull it off in its entirety. He complains of some redness to the area. He is a diabetic no recent fevers or chills or other complaints of illness or injury. All other review of systems reviewed and negative except as stated above. Timing/Duration: this evening Severity: mild Location: extremities (Right lower leg) Possible Cause: insect bite (Tick bite) Associated Symptoms: denies symptoms Allergies and Home Medications Allergies Coded Allergies: celecoxib (Unverified Allergy, Mild, TAKES ASPIRIN AT HOME, 01/28/19) diclofenac (Unverified Allergy, Mild, TAKES ASPIRIN AT HOME, 01/28/19) naproxen (Unverified Allergy, Mild, TAKES ASPIRIN AT HOME, 01/28/19) rosuvastatin (Unverified Allergy, Mild, 01/28/19) Penicillins (Verified Allergy, Unknown, 01/28/19) amoxicillin (Verified Allergy, Unknown, 01/28/19) fenofibrate (Unverified Allergy, Unknown, 01/28/19) gemfibrozil (Unverified Allergy, Unknown, 10/15/19) simvastatin (Unverified Allergy, Unknown, 01/28/19) Home Medications Apixaban 5 Mg Tablet, 5 MG PO BID, (Reported) Baclofen 10 Mg Tablet, 10 MG PO TID PRN for MUSCLE SPASMS, (Reported) Digoxin 125 Mcg Tablet, 125 MCG PO DAILY, (Reported) Diltiazem HCl 240 Mg Cap.er.24h, 240 MG PO DAILY, (Reported) Famotidine 20 Mg Tablet, 20 MG PO DAILY, (Reported) Fenofibrate,Micronized 134 Mg Capsule, 134 MG PO DAILY, (Reported) Gabapentin 300 Mg Capsule, 300 MG PO TID, (Reported) Glipizide 10 Mg Tablet, 10 MG PO DAILY, (Reported) Hydroxyzine Pamoate 50 Mg Capsule, 50 MG PO Q6H PRN for ANXIETY Prescribed by: ROMAIN KNIGHT on 05/16/202020 Insulin Detemir 100 Unit/1 Ml Insuln.pen, 30 UNIT SQ BID, (Reported) Montelukast Sodium 10 Mg Tablet, 10 MG PO HS, (Reported) Nitroglycerin 0.4 Mg Tab.subl, 0.4 MG SL UD PRN for CHEST PAIN, (Reported) MAX OF 3 TABS IN 15 MINUTES / CALL 911 IF PAIN REMAINS AFTER 5 MINUTES Pantoprazole Sodium 40 Mg Tablet.dr, 40 MG PO HS, (Reported) Pentoxifylline 400 Mg Tablet.er, 400 MG PO TID, (Reported) Sucralfate 1 Gm Tablet, 1 GM PO ACHS, (Reported) Tamsulosin HCl 0.4 Mg Cap, 0.4 MG PO DAILY, (Reported) Trazodone HCl 50 Mg Tablet, 50 MG PO HS, (Reported) Zolpidem Tartrate 10 Mg Tablet, 10 MG PO HS, (Reported) Patient Home Medication List Home Medication List Reviewed: Yes Review of Systems Review of Systems Constitutional: see HPI EENTM: no symptoms reported Respiratory: no symptoms reported Cardiovascular: no symptoms reported Gastrointestinal: no symptoms reported Genitourinary: no symptoms reported Musculoskeletal: no symptoms reported Skin: other (Area of redness right lower anterior leg) All Other Systems Reviewed Negative Unless Noted: Yes Past Kxhthpp-Pidmdh-Gsamgl Hx Patient Social History Alcohol Use: Regular Use Number of Drinks Today: 0 Alcohol Beverage of Choice: Beer Smoking Status: Former Smoker Type Used: Cigarettes Former Smoker, Quit: Apr 12, 2000 2nd Hand Smoke Exposure: No Recent Hopitalizations: No Immunizations Up To Date Tetanus Booster (TDap): Less than 5yrs PED Vaccines UTD: No Date of Pneumonia Vaccine: May 22, 2017 Date of Influenza Vaccine: Mar 08, 2018 Seasonal Allergies Seasonal Allergies: No Past Medical History Surgeries: Yes (CORONARY BYPASS X4;LINQ; BILAT TKR;STENTS IN LEGS;LUMBAR LAMINECTOMY) Abdominal, Angioplasty, Cardiac, CABG, Coronary Stent, Eye Surgery, Gallbladder, Joint Replacement, Open Heart Surgery, Orthopedic, Vascular Surgery Respiratory: Yes (CHRONIC DYSPNEA ON EXERTION) Sleep Apnea, COPD Currently Using CPAP: No Currently Using BIPAP: No Cardiac: Yes (LINQ DEVICE IN PLACE; S/P CABG; CARDIAC AND LEG STENTS;) Atrial Fibrillation, Chronic Edema/Swelling, Coronary Artery Disease, Heart Attack, High Cholesterol, Hypertension, Peripheral Vascular Neurological: Yes (POSSIBLE STROKE/ TIA) Stroke, TIA Reproductive Disorders: No Sexually Transmitted Disease: No HIV/AIDS: No Genitourinary: Yes (RENAL INSUFFICIENCY) Benign Prostatic Hyperpl, Prostate Problems, Renal Failure Gastrointestinal: Yes (GASTROPARESIS;ESOPHAGEAL STRICTURES) Abdominal Hernia, Gastroesophageal Reflux, Chronic Constipation, Diverticulosis, Pancreatitis, Polyps, Esophagitis, Hiatal Hernia, Gall Bladder Disease Musculoskeletal: Yes (OLECRANON BURSITIS, CHRONIC NECK PAIN, DISH SYNDROME;BILAT TKR) Degenerate Disk Disease, Arthritis, Chronic Back Pain Endocrine: Yes Diabetes, Insulin dep HEENT: Yes Cataract Loss of Vision: Denies Hearing Impairment: Denies Cancer: No Psychosocial: Yes Anxiety Integumentary: No Blood Disorders: No Adverse Reaction/Blood Tranf: No (N/A) Family Medical History Cancer G8 BROTHER Cataract 19 FATHER 19 MOTHER G8 BROTHER G8 BROTHER G8 SISTER Congestive heart failure 19 FATHER 19 MOTHER Family history: Arthritis 19 FATHER 19 MOTHER G8 BROTHER G8 BROTHER G8 SISTER G8 SISTER DAUGHTER SON Family history: Breast disease DAUGHTER Family history: Cardiovascular disease 19 FATHER Family history: Diabetes mellitus 19 FATHER G8 BROTHER G8 SISTER Family history: Hypertension 19 FATHER 19 MOTHER G8 BROTHER G8 BROTHER G8 SISTER G8 SISTER DAUGHTER SON Family history: Thyroid disorder DAUGHTER Heart disease 19 FATHER 19 MOTHER G8 BROTHER Hypercholesterolemia 19 FATHER 19 MOTHER G8 BROTHER G8 BROTHER G8 SISTER Myocardial infarction 19 FATHER 19 MOTHER G8 BROTHER No Family History of: Abdominal aortic aneurysm [place]'s disease Alcoholism Aphasia Cancer of colon Chest pain Congenital heart disease Cystic fibrosis Dementia Dysphagia Family history: Allergy Family history: Alzheimer's disease Family history: Asthma Family history: Coronary thrombosis Family history: Gastrointestinal disease Family history: Glaucoma Family history: Osteoporosis Headache Hearing loss Hereditary disease History of - anemia History of - disorder History of - respiratory disease History of drug abuse Human immunodeficiency virus (HIV) seropositivity Infertile Kidney disease Malignant neoplasm of lung Parkinson's disease Prostate cancer Psychotic disorder Seizure disorder Stroke Tuberculosis Visual impairment CAD Over 55 Years Old PAST SURGICAL HISTORY: -CARDIAC CATHS--STENTS IN HEART AND IN LEGS. LAST CARDIAC CATH 03/03/20--PATENT STENTS/GRAFTS, NO INTERVENTION -CABG -LINQ DEVICE IMPLANTED -LUMBAR LAMINECTOMY -BILATERAL TOTAL KNEE REPLACEMENTS -EGD'S WITH DILATIONS--LAST ONE 10/2019. -HIATAL HERNIA REPAIR/MAURISIO FUNDOPLICATION 2004 - Physical Exam Vital Signs Capillary Refill : General Appearance: WD/WN, no apparent distress HEENT: PERRL/EOMI Cardiovascular: regular rate, rhythm Respiratory: lungs clear, normal breath sounds, no respiratory distress, no accessory muscle use Extremities: non-tender, normal inspection Neurologic/Psychiatric: alert, normal mood/affect, oriented x 3 Skin: normal color, warm/dry, other (2 cm area of erythema noted in the distal right lower leg. Central area of "bite". This area is nonfluctuant no active drainage. It is nontender and it is minimally swollen.) Departure Impression Primary Impression: Tick bite of right lower leg Qualified Codes: S80.861A - Insect bite (nonvenomous), right lower leg, initial encounter; W57.XXXA - Bitten or stung by nonvenomous insect and other nonvenomous arthropods, initial encounter Disposition: HOME, SELF-CARE Condition: Stable Departure-Patient Inst. Decision time for Depature: 22:12 Referrals: ISRAEL AVALOS MD (PCP/Family) Primary Care Physician Patient Instructions: Insect Bites and Stings ED Add. Discharge Instructions: Watch the area closely for increasing redness, pain, drainage. If you have fever or other worsening symptoms please come back to the emergency department for reevaluation. RITA ISSA MD September 13, 2020 22:13
== END 2020-09-13 22:17 | disposition home or self-care (01) ==
LOC: EDUNIT# 21:07 → ER 21:08
DX: S80.861A Insect bite (nonvenomous), right lower leg, initial encounter (principal); J44.9 Chronic obstructive pulmonary disease, unspecified; I25.2 Old myocardial infarction; I10 Essential (primary) hypertension; K21.9 Gastro-esophageal reflux disease without esophagitis; I48.91 Unspecified atrial fibrillation; E11.9 Type 2 diabetes mellitus without complications; F41.9 Anxiety disorder, unspecified; N40.0 Benign prostatic hyperplasia without lower urinary tract symptoms; Z88.0 Allergy status to penicillin; Z88.1 Allergy status to other antibiotic agents; Z88.8 Allergy status to other drugs, medicaments and biological substances; Z86.73 Personal history of transient ischemic attack (TIA), and cerebral infarction without residual deficits; Z87.891 Personal history of nicotine dependence; Z79.01 Long term (current) use of anticoagulants; Z79.4 Long term (current) use of insulin; W57.XXXA Bitten or stung by nonvenomous insect and other nonvenomous arthropods, initial encounter
CPT/HCPCS: 99282

== ENCOUNTER 2020-09-28 12:58 | Emergency (ER) | payer MEDICARE, MEDICAID ==
[~2020-09-28] VITALS: Ht 182.8 cm; Wt 86.2 kg
--- NOTE | 2020-09-28 13:01 | ED Abdominal Pain ---
General Stated Complaint: ABD PAIN Source of Information: Patient Exam Limitations: No Limitations History of Present Illness Date Seen by Provider: September 28, 2020 Time Seen by Provider: 13:00 Initial Comments This is a 80 yo male who presented to the ER via EMS for complaints of epigastric pain that started around midnight last night. States pain is 9/10, sharp, constant, localized to the epigastric region. Has not taken anything for pain prior to arrival. Denies fever, chills, cough, shortness of breath, nausea, vomiting. Reports tobacco use, denies alcohol intake, illicit drug use. Allergies and Home Medications Allergies Coded Allergies: celecoxib (Unverified Allergy, Mild, TAKES ASPIRIN AT HOME, 01/28/19) diclofenac (Unverified Allergy, Mild, TAKES ASPIRIN AT HOME, 01/28/19) naproxen (Unverified Allergy, Mild, TAKES ASPIRIN AT HOME, 01/28/19) rosuvastatin (Unverified Allergy, Mild, 01/28/19) Penicillins (Verified Allergy, Unknown, 01/28/19) amoxicillin (Verified Allergy, Unknown, 01/28/19) fenofibrate (Unverified Allergy, Unknown, 01/28/19) gemfibrozil (Unverified Allergy, Unknown, 10/15/19) simvastatin (Unverified Allergy, Unknown, 01/28/19) Home Medications Apixaban 5 Mg Tablet, 5 MG PO BID, (Reported) Baclofen 10 Mg Tablet, 10 MG PO TID PRN for MUSCLE SPASMS, (Reported) Digoxin 125 Mcg Tablet, 125 MCG PO DAILY, (Reported) Diltiazem HCl 240 Mg Cap.er.24h, 240 MG PO DAILY, (Reported) Famotidine 20 Mg Tablet, 20 MG PO DAILY, (Reported) Fenofibrate,Micronized 134 Mg Capsule, 134 MG PO DAILY, (Reported) Gabapentin 300 Mg Capsule, 300 MG PO TID, (Reported) Glipizide 10 Mg Tablet, 10 MG PO DAILY, (Reported) Hydroxyzine Pamoate 50 Mg Capsule, 50 MG PO Q6H PRN for ANXIETY Prescribed by: ROMAIN KNIGHT on 05/16/202020 Insulin Detemir 100 Unit/1 Ml Insuln.pen, 30 UNIT SQ BID, (Reported) Montelukast Sodium 10 Mg Tablet, 10 MG PO HS, (Reported) Nitroglycerin 0.4 Mg Tab.subl, 0.4 MG SL UD PRN for CHEST PAIN, (Reported) MAX OF 3 TABS IN 15 MINUTES / CALL 911 IF PAIN REMAINS AFTER 5 MINUTES Pantoprazole Sodium 40 Mg Tablet.dr, 40 MG PO HS, (Reported) Pentoxifylline 400 Mg Tablet.er, 400 MG PO TID, (Reported) Sucralfate 1 Gm Tablet, 1 GM PO ACHS, (Reported) Tamsulosin HCl 0.4 Mg Cap, 0.4 MG PO DAILY, (Reported) Trazodone HCl 50 Mg Tablet, 50 MG PO HS, (Reported) Zolpidem Tartrate 10 Mg Tablet, 10 MG PO HS, (Reported) Patient Home Medication List Home Medication List Reviewed: Yes Review of Systems Review of Systems Constitutional: no symptoms reported EENTM: No Symptoms Reported Respiratory: No Symptoms Reported Cardiovascular: No Symptoms Reported Gastrointestinal: See HPI Genitourinary: No Symptoms Reported Musculoskeletal: no symptoms reported Skin: no symptoms reported Psychiatric/Neurological: No Symptoms Reported Endocrine: No Symptoms Reported Hematologic/Lymphatic: No Symptoms Reported Past Yckflnq-Pzektn-Xgfunj Hx Patient Social History Alcohol Beverage of Choice: Beer Type Used: Cigarettes Former Smoker, Quit: Apr 12, 2000 2nd Hand Smoke Exposure: No Recent Hopitalizations: No Immunizations Up To Date Tetanus Booster (TDap): Less than 5yrs PED Vaccines UTD: No Date of Pneumonia Vaccine: May 22, 2017 Date of Influenza Vaccine: Mar 08, 2018 Seasonal Allergies Seasonal Allergies: No Past Medical History Surgeries: Yes (CORONARY BYPASS X4;LINQ; BILAT TKR;STENTS IN LEGS;LUMBAR LAMINECTOMY) Abdominal, Angioplasty, Cardiac, CABG, Coronary Stent, Eye Surgery, Gallbladder, Joint Replacement, Open Heart Surgery, Orthopedic, Vascular Surgery Respiratory: Yes (CHRONIC DYSPNEA ON EXERTION) Sleep Apnea, COPD Currently Using CPAP: No Currently Using BIPAP: No Cardiac: Yes (LINQ DEVICE IN PLACE; S/P CABG; CARDIAC AND LEG STENTS;) Atrial Fibrillation, Chronic Edema/Swelling, Coronary Artery Disease, Heart Attack, High Cholesterol, Hypertension, Peripheral Vascular Neurological: Yes (POSSIBLE STROKE/ TIA) Stroke, TIA Reproductive Disorders: No Sexually Transmitted Disease: No HIV/AIDS: No Genitourinary: Yes (RENAL INSUFFICIENCY) Benign Prostatic Hyperpl, Prostate Problems, Renal Failure Gastrointestinal: Yes (GASTROPARESIS;ESOPHAGEAL STRICTURES) Abdominal Hernia, Gastroesophageal Reflux, Chronic Constipation, Diverticulosis, Pancreatitis, Polyps, Esophagitis, Hiatal Hernia, Gall Bladder Disease Musculoskeletal: Yes (OLECRANON BURSITIS, CHRONIC NECK PAIN, DISH SYNDROME;NELIDA AT TKR) Degenerate Disk Disease, Arthritis, Chronic Back Pain Endocrine: Yes Diabetes, Insulin dep HEENT: Yes Cataract Loss of Vision: Denies Hearing Impairment: Denies Cancer: No Psychosocial: Yes Anxiety Integumentary: No Blood Disorders: No Adverse Reaction/Blood Tranf: No (N/A) Family Medical History Cancer G8 BROTHER Cataract 19 FATHER 19 MOTHER G8 BROTHER G8 BROTHER G8 SISTER Congestive heart failure 19 FATHER 19 MOTHER Family history: Arthritis 19 FATHER 19 MOTHER G8 BROTHER G8 BROTHER G8 SISTER G8 SISTER DAUGHTER SON Family history: Breast disease DAUGHTER Family history: Cardiovascular disease 19 FATHER Family history: Diabetes mellitus 19 FATHER G8 BROTHER G8 SISTER Family history: Hypertension 19 FATHER 19 MOTHER G8 BROTHER G8 BROTHER G8 SISTER G8 SISTER DAUGHTER SON Family history: Thyroid disorder DAUGHTER Heart disease 19 FATHER 19 MOTHER G8 BROTHER Hypercholesterolemia 19 FATHER 19 MOTHER G8 BROTHER G8 BROTHER G8 SISTER Myocardial infarction 19 FATHER 19 MOTHER G8 BROTHER No Family History of: Abdominal aortic aneurysm Robel's disease Alcoholism Aphasia Cancer of colon Chest pain Congenital heart disease Cystic fibrosis Dementia Dysphagia Family history: Allergy Family history: Alzheimer's disease Family history: Asthma Family history: Coronary thrombosis Family history: Gastrointestinal disease Family history: Glaucoma Family history: Osteoporosis Headache Hearing loss Hereditary disease History of - anemia History of - disorder History of - respiratory disease History of drug abuse Human immunodeficiency virus (HIV) seropositivity Infertile Kidney disease Malignant neoplasm of lung Parkinson's disease Prostate cancer Psychotic disorder Seizure disorder Stroke Tuberculosis Visual impairment CAD Over 55 Years Old PAST SURGICAL HISTORY: -CARDIAC CATHS--STENTS IN HEART AND IN LEGS. LAST CARDIAC CATH 03/03/20--PATENT STENTS/GRAFTS, NO INTERVENTION -CABG -LINQ DEVICE IMPLANTED -LUMBAR LAMINECTOMY -BILATERAL TOTAL KNEE REPLACEMENTS -EGD'S WITH DILATIONS--LAST ONE 10/2019. -HIATAL HERNIA REPAIR/MAURISIO FUNDOPLICATION 2004 - Physical Exam Vital Signs Vital Signs - First Documented 09/28/20 12:58 Pulse 98 Resp 16 B/P (MAP) 145/82 (103) Pulse Ox 98 O2 Delivery Room Air Capillary Refill : Height/Weight/BMI Height: 6'0" Weight: 180lbs. 4.0oz. 81.810184nr; 25.00 BMI Method:Stated General Appearance: WD/WN, no apparent distress HEENT: PERRL/EOMI Neck: full range of motion, normal inspection Respiratory: lungs clear, normal breath sounds Cardiovascular: regular rate, rhythm, no edema Gastrointestinal: normal bowel sounds, soft, tenderness (Epigastric); No hernia, No mass Extremities: normal range of motion, non-tender, normal inspection Neurologic/Psychiatric: no motor/sensory deficits, alert, normal mood/affect, oriented x 3 Skin: normal color, warm/dry Progress/Results/Core Measures Results/Orders Lab Results Laboratory Tests Test 09/28/20 13:03 09/28/20 15:27 Range/Units White Blood Count 6.7 4.3-11.0 10^3/uL Red Blood Count 5.25 4.30-5.52 10^6/uL Hemoglobin 15.5 13.3-17.7 g/dL Hematocrit 47 40-54 % Mean Corpuscular Volume 90 80-99 fL Mean Corpuscular Hemoglobin 30 25-34 pg Mean Corpuscular Hemoglobin Concent 33 32-36 g/dL Red Cell Distribution Width 13.3 10.0-14.5 % Platelet Count 323 130-400 10^3/uL Mean Platelet Volume 10.4 9.0-12.2 fL Immature Granulocyte % (Auto) 0 % Neutrophils (%) (Auto) 64 42-75 % Lymphocytes (%) (Auto) 25 12-44 % Monocytes (%) (Auto) 7 0-12 % Eosinophils (%) (Auto) 3 0-10 % Basophils (%) (Auto) 1 0-10 % Neutrophils # (Auto) 4.3 1.8-7.8 10^3/uL Lymphocytes # (Auto) 1.7 1.0-4.0 10^3/uL Monocytes # (Auto) 0.5 0.0-1.0 10^3/uL Eosinophils # (Auto) 0.2 0.0-0.3 10^3/uL Basophils # (Auto) 0.1 0.0-0.1 10^3/uL Immature Granulocyte # (Auto) 0.0 0.0-0.1 10^3/uL Sodium Level 136 135-145 MMOL/L Potassium Level 4.5 3.6-5.0 MMOL/L Chloride Level 104 98-107 MMOL/L Carbon Dioxide Level 22 21-32 MMOL/L Anion Gap 10 5-14 MMOL/L Blood Urea Nitrogen 10 7-18 MG/DL Creatinine 1.52 H 0.60-1.30 MG/DL Estimat Glomerular Filtration Rate 45 BUN/Creatinine Ratio 7 Glucose Level 198 H 70-105 MG/DL Calcium Level 10.0 8.5-10.1 MG/DL Corrected Calcium 9.8 8.5-10.1 MG/DL Total Bilirubin 0.5 0.1-1.0 MG/DL Aspartate Amino Transf (AST/SGOT) 25 5-34 U/L Alanine Aminotransferase (ALT/SGPT) 20 0-55 U/L Alkaline Phosphatase 64 40-136 U/L Total Protein 7.9 6.4-8.2 GM/DL Albumin 4.3 3.2-4.5 GM/DL Lipase 135 H 8-78 U/L Urine Color YELLOW Urine Clarity CLEAR Urine pH 6.0 5-9 Urine Specific [place] 1.010 L 1.016-1.022 Urine Protein NEGATIVE NEGATIVE Urine Glucose (UA) TRACE H NEGATIVE Urine Ketones NEGATIVE NEGATIVE Urine Nitrite NEGATIVE NEGATIVE Urine Bilirubin NEGATIVE NEGATIVE Urine Urobilinogen 0.2 < = 1.0 MG/DL Urine Leukocyte Esterase NEGATIVE NEGATIVE Urine RBC (Auto) NEGATIVE NEGATIVE Urine RBC NONE /HPF Urine WBC NONE /HPF Urine Squamous Epithelial Cells RARE /HPF Urine Crystals NONE /LPF Urine Bacteria NEGATIVE /HPF Urine Casts NONE /LPF Urine Mucus NEGATIVE /LPF Urine Culture Indicated NO My Orders Orders - MAUREEN FLYNN APRN Chest 1 View, Ap/Pa Only (09/28/20 13:06) Ekg Tracing (09/28/20 13:06) Ed Iv/Invasive Line Start (09/28/20 13:06) Monitor-Rhythm Ecg Trace Only (09/28/20 13:06) Cbc With Automated Diff (09/28/20 13:06) Comprehensive Metabolic Panel (09/28/20 13:06) Lipase (09/28/20 13:06) Ua Culture If Indicated (09/28/20 13:06) Fentanyl Inj (Sublimaze Injection) (09/28/20 13:15) Lactated Ringers (Lr 1000 Ml Iv Solution (09/28/20 14:15) Ct Abdomen/Pelvis Wo (09/28/20 14:21) Medications Given in ED Vital Signs/I&O 09/28/20 09/28/20 12:58 15:41 Pulse 98 91 Resp 16 16 B/P (MAP) 145/82 (103) 138/95 Pulse Ox 98 97 O2 Delivery Room Air Room Air Progress Progress Note : Progress Note Patient examined and in no acute distress. Basic labs, EKG, and lipase ordered. Fentanyl ordered for pain. Labs reviewed and are unremarkable, creat. at baseline. Slightly elevated lipase. CXR neg for acute pathology. CT abd/pelvis w/o neg for acute pathology. He reports feeling improved pain after Fentanyl. Discussed that this could also be related to his history of GERD and gastritis although he is not having his typical symptoms. Discussed sticking to clear liquids today and advancing diet slowly. He is to continue his home Pantoprazole and advance his diet slowly as tolerated. Follow up with PCP if symptoms persist. Return for any new, worsening, or concerning symptoms. Verbalized understanding. Initial ECG Impression Date: September 28, 2020 Initial ECG Impression Time: 13:08 Initial ECG Rate: 96 Initial ECG Rhythm: Normal Sinus Initial ECG Impression: Nonspecific Changes Diagnostic Imaging Diagonstic Imaging: Xray Plain Films/CT/US/NM/MRI: chest Comments [facility] [place], [place] NAME: CASTRO PADRON [facility] REC#: [id number] PT STATUS: DEP ER : 1940 PHYSICIAN: MAUREEN FLYNN APRN ADMIT DATE: 09/28/20/ER Signed Date of Exam:09/28/20 CHEST 1 VIEW, AP/PA ONLY INDICATION: Chest pain Portable chest 1:30 PM There is a loop recorder projecting over the left lower chest. There are postoperative changes from a median sternotomy. Heart size and pulmonary vascularity are normal. Lungs are clear. There are no effusions or pneumothoraces. IMPRESSION: No acute abnormalities in the chest. Dictated by: Dictated on workstation # [id number] Dict: 09/28/20 1332 Trans: 09/28/20 1545 [facility] [id number] Interpreted by: CHARO SOTO MD Electronically signed by: CHARO SOTO MD 09/28/20 1545 Reviewed: Reviewed by Me Diagonstic Imaging: CT Plain Films/CT/US/NM/MRI: abdomen, pelvis Comments [facility] [place] NAME: CASTRO PADRON [facility] REC#: [id number] PT STATUS: DEP ER : 1940 PHYSICIAN: MAUREEN FLYNN [employer] ADMIT DATE: 09/28/20/ER Signed Date of Exam:09/28/20 CT ABDOMEN/PELVIS WO PROCEDURE: CT abdomen and pelvis without contrast. TECHNIQUE: Multiple contiguous axial images were obtained through the abdomen and pelvis without the use of intravenous contrast. Auto Exposure Controls were utilized during the CT exam to meet ALARA standards for radiation dose reduction. INDICATION: Elevated lipase, pain. The uninfused pancreas appeared unremarkable. There is no pseudocyst or other acute fluid collection. No pancreatic gas or parenchymal fluid collection. There is no ascites. Stomach is nondilated. There is no evidence for small or large bowel obstruction or regional ileus. No perienteric or pericolonic edema. There is diverticular disease of the sigmoid without features of acute diverticulitis. The air-containing appendix is visualized in the right lower quadrant and is normal. The atherosclerotic aorta is nonaneurysmal. Spleen and adrenals are negative. The liver is unremarkable. Gallbladder is surgically absent. No pathological distention of the bile ducts. No ascites, abscess, hematoma or other acute fluid collection. Prostate, seminal vesicles and urinary bladder appeared nonacute. The bony structures are unremarkable aside from degenerative changes and prior lumbar decompression. Unobstructed kidneys appeared nonfocal. There is no mesenteric or retroperitoneal adenopathy. The lung bases are nonacute. IMPRESSION: No obstructive features, inflammatory process, ascites or acute fluid collections. Dictated by: Dictated on workstation # [id number] Dict: 09/28/20 1434 Trans: 09/28/[address] [facility] [id number] Interpreted by: PRINCESS YOUNG Electronically signed by: PRINCESS YOUNG 09/28/20 1644 Reviewed: Reviewed by Me Departure Impression Primary Impression: Abdominal pain Disposition: HOME, SELF-CARE Condition: Improved Departure-Patient Inst. Decision time for Depature: 15:11 Referrals: ISRAEL AVALOS MD (PCP/Family) Primary Care Physician Patient Instructions: Acute Pain, Adult Add. Discharge Instructions: Plan: 1. Discharge home. Continue clear liquids today and advance diet as tolerated. 2. May take Tylenol as needed for pain per package. 3. Follow up with your primary care provider if symptoms persist. 4. Return for any new or worsening symptoms. MAUREEN FLYNN [employer] SERVER September 28, 2020 13:01
[2020-09-28] MEDS ORDERED: fentaNYL INJ 100 MCG/2 ML AMP IVP PRN (13:15)
[2020-09-28 13:17] LABS: BASOPHILS # (AUTO) 0.1 10^3/uL (0.0-0.1); BASOPHILS % (AUTO) 1 % (0-10); EOSINOPHILS # (AUTO) 0.2 10^3/uL (0.0-0.3); EOSINOPHILS % (AUTO) 3 % (0-10); HEMATOCRIT 47 % (40-54); HEMOGLOBIN 15.5 g/dL (13.3-17.7); LYMPHOCYTES # (AUTO) 1.7 10^3/uL (1.0-4.0); LYMPHOCYTES % (AUTO) 25 % (12-44); MEAN CORPUSCULAR HEMOGLOBIN 30 pg (25-34); MEAN CORPUSCULAR HGB CONC 33 g/dL (32-36); MEAN CORPUSCULAR VOLUME 90 fL (80-99); MEAN PLATELET VOLUME 10.4 fL (9.0-12.2); MONOCYTES # (AUTO) 0.5 10^3/uL (0.0-1.0); MONOCYTES % (AUTO) 7 % (0-12); NEUTROPHILS # (AUTO) 4.3 10^3/uL (1.8-7.8); NEUTROPHILS % (AUTO) 64 % (42-75); PLATELET COUNT 323 10^3/uL (130-400); WHITE BLOOD COUNT 6.7 10^3/uL (4.3-11.0)
--- NOTE | 2020-09-28 13:42 | Diagnostic Imaging Report ---
INDICATION: Chest pain Portable chest 1:30 PM There is a loop recorder projecting over the left lower chest. There are postoperative changes from a median sternotomy. Heart size and pulmonary vascularity are normal. Lungs are clear. There are no effusions or pneumothoraces. IMPRESSION: No acute abnormalities in the chest. Dictated by: Dictated on workstation # [id number]
[2020-09-28 13:43] LABS: ALBUMIN 4.3 GM/DL (3.2-4.5); POTASSIUM 4.5 MMOL/L (3.6-5.0)
[2020-09-28 13:45] LABS: TOTAL PROTEIN 7.9 GM/DL (6.4-8.2)
[2020-09-28 13:47] LABS: BILIRUBIN,TOTAL 0.5 MG/DL (0.1-1.0)
[2020-09-28 13:49] LABS: CREATININE SERUM 1.52 MG/DL (0.60-1.30)
[2020-09-28] MEDS ORDERED: LACTATED RINGERS 1,000 ML IV ONE (14:15)
--- NOTE | 2020-09-28 14:51 | Diagnostic Imaging Report ---
PROCEDURE: CT abdomen and pelvis without contrast. TECHNIQUE: Multiple contiguous axial images were obtained through the abdomen and pelvis without the use of intravenous contrast. Auto Exposure Controls were utilized during the CT exam to meet ALARA standards for radiation dose reduction. INDICATION: Elevated lipase, pain. The uninfused pancreas appeared unremarkable. There is no pseudocyst or other acute fluid collection. No pancreatic gas or parenchymal fluid collection. There is no ascites. Stomach is nondilated. There is no evidence for small or large bowel obstruction or regional ileus. No perienteric or pericolonic edema. There is diverticular disease of the sigmoid without features of acute diverticulitis. The air-containing appendix is visualized in the right lower quadrant and is normal. The atherosclerotic aorta is nonaneurysmal. Spleen and adrenals are negative. The liver is unremarkable. Gallbladder is surgically absent. No pathological distention of the bile ducts. No ascites, abscess, hematoma or other acute fluid collection. Prostate, seminal vesicles and urinary bladder appeared nonacute. The bony structures are unremarkable aside from degenerative changes and prior lumbar decompression. Unobstructed kidneys appeared nonfocal. There is no mesenteric or retroperitoneal adenopathy. The lung bases are nonacute. IMPRESSION: No obstructive features, inflammatory process, ascites or acute fluid collections. Dictated by: Dictated on workstation # [id number]
[2020-09-28 15:32] LABS: BILIRUBIN,URINE NEGATIVE (NEGATIVE); CLARITY,URINE CLEAR; COLOR,URINE YELLOW; GLUCOSE, URINE (UA) TRACE (NEGATIVE); KETONES,URINE NEGATIVE (NEGATIVE); LEUKOCYTE ESTERASE ,URINE NEGATIVE (NEGATIVE); NITRITE,URINE NEGATIVE (NEGATIVE); PROTEIN,URINE NEGATIVE (NEGATIVE)
[2020-09-28 15:38] LABS: BACTERIA,URINE NEGATIVE /HPF; SQUAMOUS EPITHELIAL CELL,UR RARE /HPF
[2020-09-28 15:41] VITALS: BP 138/95
== END 2020-09-28 15:41 | disposition home or self-care (01) ==
LOC: EDUNIT# 12:58 → ER 12:59
DX: R10.13 Epigastric pain (principal); J44.9 Chronic obstructive pulmonary disease, unspecified; I11.0 Hypertensive heart disease with heart failure; I50.9 Heart failure, unspecified; I25.10 Atherosclerotic heart disease of native coronary artery without angina pectoris; I48.91 Unspecified atrial fibrillation; E11.9 Type 2 diabetes mellitus without complications; E78.00 Pure hypercholesterolemia, unspecified; N40.0 Benign prostatic hyperplasia without lower urinary tract symptoms; K21.9 Gastro-esophageal reflux disease without esophagitis; F41.9 Anxiety disorder, unspecified; Z95.1 Presence of aortocoronary bypass graft; Z87.19 Personal history of other diseases of the digestive system; Z95.5 Presence of coronary angioplasty implant and graft; Z87.891 Personal history of nicotine dependence; Z88.1 Allergy status to other antibiotic agents; Z88.6 Allergy status to analgesic agent; Z88.8 Allergy status to other drugs, medicaments and biological substances; Z88.0 Allergy status to penicillin; Z79.01 Long term (current) use of anticoagulants; Z79.4 Long term (current) use of insulin; Z79.899 Other long term (current) drug therapy
CPT/HCPCS: 36415; 71045; 74176; 80053; 81000; 83690; 85025; 93005; 93041

== ENCOUNTER 2020-11-12 13:59 | Emergency (ER) | payer OTHER, MEDICARE, MEDICAID ==
[~2020-11-12] VITALS: Ht 177 cm; Wt 86.2 kg
[2020-11-12 14:24] LABS: HEMATOCRIT 42 % (40-54); HEMOGLOBIN 13.8 g/dL (13.3-17.7); MEAN CORPUSCULAR HEMOGLOBIN 30 pg (25-34); MEAN CORPUSCULAR HGB CONC 33 g/dL (32-36); MEAN CORPUSCULAR VOLUME 92 fL (80-99); MEAN PLATELET VOLUME 10.5 fL (9.0-12.2); PLATELET COUNT 251 10^3/uL (130-400); WHITE BLOOD COUNT 7.3 10^3/uL (4.3-11.0)
[2020-11-12 14:39] LABS: ALBUMIN 3.8 GM/DL (3.2-4.5); CHLORIDE 105 MMOL/L (98-107); SODIUM 137 MMOL/L (135-145)
[2020-11-12 14:40] LABS: CALCIUM 9.4 MG/DL (8.5-10.1)
[2020-11-12 14:42] LABS: GLUCOSE 278 MG/DL (70-105); TOTAL PROTEIN 6.6 GM/DL (6.4-8.2)
[2020-11-12 14:43] LABS: BILIRUBIN,TOTAL 0.4 MG/DL (0.1-1.0); CARBON DIOXIDE 20 MMOL/L (21-32)
[2020-11-12 14:45] LABS: ALKALINE PHOSPHATASE 56 U/L (40-136); CREATININE SERUM 1.57 MG/DL (0.60-1.30); GFR ESTIMATED 43
[2020-11-12 14:46] LABS: BUN/CREATININE RATIO 7
[2020-11-12 14:47] LABS: BILIRUBIN,DIRECT 0.2 MG/DL (0.0-0.3); BILIRUBIN,INDIRECT 0.2 MG/DL
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
[2020-11-12 14:48] LABS: ALANINE AMINOTRANSFERASE 15 U/L (0-55)
[2020-11-12] MEDS ORDERED: fentaNYL INJ 100 MCG/2 ML AMP IVP ONE ×3 (15:15→17:45)
[2020-11-12 15:21] LABS: BILIRUBIN,URINE NEGATIVE (NEGATIVE); CLARITY,URINE CLEAR; COLOR,URINE YELLOW; GLUCOSE, URINE (UA) NEGATIVE (NEGATIVE); KETONES,URINE NEGATIVE (NEGATIVE); LEUKOCYTE ESTERASE ,URINE NEGATIVE (NEGATIVE); NITRITE,URINE NEGATIVE (NEGATIVE); PROTEIN,URINE 1+ (NEGATIVE)
[2020-11-12 15:32] LABS: BACTERIA,URINE TRACE /HPF; SQUAMOUS EPITHELIAL CELL,UR RARE /HPF
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
[2020-11-12] MEDS ORDERED: HOLD METFORMIN - RECEIVED CONTRAST 20 ML VIAL IV SCH (16:15)
[2020-11-12] MEDS ORDERED: NS 100 ML (IVPB) BAG IV ONE (16:15)
[2020-11-12] MEDS ORDERED: IOHEXOL 350 MG/ML 100 ML (OMNIPAQUE 350) VIAL IV ONE (16:15)
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
[2020-11-12] MEDS ORDERED: ORPHENADRINE 60 MG/2 ML (NORFLEX) AMP (ED ONLY) IV ONE (16:45)
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
[2020-11-12] MEDS ORDERED: KETOROLAC 30 MG/ML VIAL ONE (17:11)
[2020-11-12] MEDS ORDERED: METH-732 PO (17:17)
[2020-11-12 17:40] VITALS: BP 135/76
[2020-11-12] MEDS ORDERED: KETOROLAC 30 MG/ML VIAL IVP ONE (17:45)
== END 2020-11-12 17:40 | disposition home or self-care (01) ==
LOC: EDUNIT# 13:59 → ER 14:00
DX: S00.81XA Abrasion of other part of head, initial encounter (principal); M54.2 Cervicalgia; J44.9 Chronic obstructive pulmonary disease, unspecified; I25.2 Old myocardial infarction; I10 Essential (primary) hypertension; G47.30 Sleep apnea, unspecified; I48.91 Unspecified atrial fibrillation; K21.9 Gastro-esophageal reflux disease without esophagitis; F41.9 Anxiety disorder, unspecified; E78.00 Pure hypercholesterolemia, unspecified; E11.9 Type 2 diabetes mellitus without complications; N40.0 Benign prostatic hyperplasia without lower urinary tract symptoms; Z86.73 Personal history of transient ischemic attack (TIA), and cerebral infarction without residual deficits; Z79.01 Long term (current) use of anticoagulants; Z79.899 Other long term (current) drug therapy; Z79.4 Long term (current) use of insulin; V89.2XXA Person injured in unspecified motor-vehicle accident, traffic, initial encounter
CPT/HCPCS: 70450; 71045; 71260; 72125; 74177; 80048; 80076; 81000; 85027; 86850; 86900; 86901; 93005; 93041; 99284; G0480; 36415; 80320

== ENCOUNTER 2021-01-13 14:14 | Observation (INO) | payer MEDICARE, MEDICAID ==
[~2021-01-13] VITALS: Ht 182 cm; Wt 83.6 kg
[~2021-01-13 14:14] MED LIST changes: +METH-732 PO
[2021-01-13 14:41] LABS: BASOPHILS # (AUTO) 0.1 10^3/uL (0.0-0.1); BASOPHILS % (AUTO) 1 % (0-10); EOSINOPHILS # (AUTO) 0.1 10^3/uL (0.0-0.3); EOSINOPHILS % (AUTO) 2 % (0-10); HEMATOCRIT 46 % (40-54); HEMOGLOBIN 14.8 g/dL (13.3-17.7); LYMPHOCYTES # (AUTO) 1.7 10^3/uL (1.0-4.0); LYMPHOCYTES % (AUTO) 23 % (12-44); MEAN CORPUSCULAR HEMOGLOBIN 30 pg (25-34); MEAN CORPUSCULAR HGB CONC 32 g/dL (32-36); MEAN CORPUSCULAR VOLUME 93 fL (80-99); MEAN PLATELET VOLUME 10.2 fL (9.0-12.2); MONOCYTES # (AUTO) 0.6 10^3/uL (0.0-1.0); MONOCYTES % (AUTO) 8 % (0-12); NEUTROPHILS # (AUTO) 4.9 10^3/uL (1.8-7.8); NEUTROPHILS % (AUTO) 67 % (42-75); PLATELET COUNT 303 10^3/uL (130-400); WHITE BLOOD COUNT 7.4 10^3/uL (4.3-11.0)
--- NOTE | 2021-01-13 14:44 | ED Cardiac General ---
History of Present Illness General Chief Complaint: Cardiac/General Problems Stated Complaint: AFIB Source: patient Exam Limitations: no limitations History of Present Illness Date Seen by Provider: Jan 13, 2021 Time Seen by Provider: 14:21 Initial Comments Here with acute onset of fast heart rate that he noted at 5 AM. Answers morning medicines and waited about an effort to wait and see if it would go away. It continued so he presented. Denies chest pain but does report palpitations. Denies weakness or breathing problems. Does take his home medicines as prescribed and that does include Eliquis. Does have history of atrial fibrillation. Follows with Dr. Stiles. Denies Covid symptoms and has not been vaccinated for Covid but is thinking about it. 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 Allergies and Home Medications Allergies Coded Allergies: celecoxib (Unverified Allergy, Mild, TAKES ASPIRIN AT HOME, 01/28/19) diclofenac (Unverified Allergy, Mild, TAKES ASPIRIN AT HOME, 01/28/19) naproxen (Unverified Allergy, Mild, TAKES ASPIRIN AT HOME, 01/28/19) rosuvastatin (Unverified Allergy, Mild, 01/28/19) Penicillins (Verified Allergy, Unknown, 01/28/19) amoxicillin (Verified Allergy, Unknown, 01/28/19) fenofibrate (Unverified Allergy, Unknown, 01/28/19) gemfibrozil (Unverified Allergy, Unknown, 10/15/19) simvastatin (Unverified Allergy, Unknown, 01/28/19) Patient Home Medication List Home Medication List Reviewed: Yes Review of Systems Review of Systems Constitutional: No chills, No fever EENTM: No Nose Pain, No Throat Pain Respiratory: Denies Cough, Denies SOA at Rest Cardiovascular: Irregular Heart Rate, Palpitations Gastrointestinal: Denies Nausea, Denies Vomiting Genitourinary: No Symptoms Reported Musculoskeletal: no symptoms reported All Other Systems Reviewed Negative Unless Noted: Yes Past Oqnkrca-Resazi-Pztoob Hx Patient Social History Tobacco Use?: No Substance use?: No Alcohol Use?: No Immunizations Up To Date Tetanus Booster (TDap): Less than 5yrs PED Vaccines UTD: No Seasonal Allergies Seasonal Allergies: No Past Medical History Surgeries: Yes (CORONARY BYPASS X4;LINQ; BILAT TKR;STENTS IN LEGS;LUMBAR LAMINECTOMY) Abdominal, Angioplasty, Cardiac, CABG, Coronary Stent, Eye Surgery, Gallbladder, Joint Replacement, Open Heart Surgery, Orthopedic, Vascular Surgery Respiratory: Yes (CHRONIC DYSPNEA ON EXERTION) Sleep Apnea, COPD Currently Using CPAP: No Currently Using BIPAP: No Cardiac: Yes (LINQ DEVICE IN PLACE; S/P CABG; CARDIAC AND LEG STENTS;) Atrial Fibrillation, Chronic Edema/Swelling, Coronary Artery Disease, Heart Attack, High Cholesterol, Hypertension, Peripheral Vascular Neurological: Yes (POSSIBLE STROKE/ TIA) Stroke, TIA Reproductive Disorders: No Sexually Transmitted Disease: No HIV/AIDS: No Genitourinary: Yes (RENAL INSUFFICIENCY) Benign Prostatic Hyperpl, Prostate Problems, Renal Failure Gastrointestinal: Yes (GASTROPARESIS;ESOPHAGEAL STRICTURES) Abdominal Hernia, Gastroesophageal Reflux, Chronic Constipation, Diverticulosis, Pancreatitis, Polyps, Esophagitis, Hiatal Hernia, Gall Bladder Disease Musculoskeletal: Yes (OLECRANON BURSITIS, CHRONIC NECK PAIN, DISH SYNDROME;BILAT TKR) Degenerate Disk Disease, Arthritis, Chronic Back Pain Endocrine: Yes Diabetes, Insulin dep HEENT: Yes Cataract Loss of Vision: Denies Hearing Impairment: Denies Cancer: No Psychosocial: Yes Anxiety Integumentary: No Blood Disorders: No Adverse Reaction/Blood Tranf: No (N/A) Family Medical History Reviewed Nursing Family Hx Cancer G8 BROTHER Cataract 19 FATHER 19 MOTHER G8 BROTHER G8 BROTHER G8 SISTER Congestive heart failure 19 FATHER 19 MOTHER Family history: Arthritis 19 FATHER 19 MOTHER G8 BROTHER G8 BROTHER G8 SISTER G8 SISTER DAUGHTER SON Family history: Breast disease DAUGHTER Family history: Cardiovascular disease 19 FATHER Family history: Diabetes mellitus 19 FATHER G8 BROTHER G8 SISTER Family history: Hypertension 19 FATHER 19 MOTHER G8 BROTHER G8 BROTHER G8 SISTER G8 SISTER DAUGHTER SON Family history: Thyroid disorder DAUGHTER Heart disease 19 FATHER 19 MOTHER G8 BROTHER Hypercholesterolemia 19 FATHER 19 MOTHER G8 BROTHER G8 BROTHER G8 SISTER Myocardial infarction 19 FATHER 19 MOTHER G8 BROTHER CAD Over 55 Years Old PAST SURGICAL HISTORY: -CARDIAC CATHS--STENTS IN HEART AND IN LEGS. LAST CARDIAC CATH 03/03/20--PATENT STENTS/GRAFTS, NO INTERVENTION -CABG -LINQ DEVICE IMPLANTED -LUMBAR LAMINECTOMY -BILATERAL TOTAL KNEE REPLACEMENTS -EGD'S WITH DILATIONS--LAST ONE 10/2019. -HIATAL HERNIA REPAIR/MAURISIO FUNDOPLICATION 2004 - Physical Exam Vital Signs Vital Signs - First Documented 01/13/21 14:20 Temp 36.8 Pulse 147 Resp 22 B/P (MAP) 133/103 (113) Pulse Ox 97 O2 Delivery Room Air Capillary Refill : Height, Weight, BMI Height: 6'0" Weight: 180lbs. 4.0oz. 81.177142le; 27.00 BMI Method:Stated General Appearance: No Apparent Distress, WD/WN HEENT: PERRL/EOMI, TMs Normal, Pharynx Normal Neck: Non Tender, Supple Respiratory: Lungs Clear, Normal Breath Sounds Cardiovascular: Irregularly Irregular, Tachycardia Gastrointestinal: Non Tender, Soft Extremity: Normal Range of Motion, Non Tender, No Calf Tenderness, No Pedal Edema Neurologic/Psychiatric: Alert, Oriented x3 Skin: Normal Color, Warm/Dry Progress/Results/Core Measures Results/Orders Lab Results Laboratory Tests Test 01/13/21 14:25 Range/Units White Blood Count 7.4 4.3-11.0 10^3/uL Red Blood Count 4.98 4.30-5.52 10^6/uL Hemoglobin 14.8 13.3-17.7 g/dL Hematocrit 46 40-54 % Mean Corpuscular Volume 93 80-99 fL Mean Corpuscular Hemoglobin 30 25-34 pg Mean Corpuscular Hemoglobin Concent 32 32-36 g/dL Red Cell Distribution Width 13.8 10.0-14.5 % Platelet Count 303 130-400 10^3/uL Mean Platelet Volume 10.2 9.0-12.2 fL Immature Granulocyte % (Auto) 0 % Neutrophils (%) (Auto) 67 42-75 % Lymphocytes (%) (Auto) 23 12-44 % Monocytes (%) (Auto) 8 0-12 % Eosinophils (%) (Auto) 2 0-10 % Basophils (%) (Auto) 1 0-10 % Neutrophils # (Auto) 4.9 1.8-7.8 10^3/uL Lymphocytes # (Auto) 1.7 1.0-4.0 10^3/uL Monocytes # (Auto) 0.6 0.0-1.0 10^3/uL Eosinophils # (Auto) 0.1 0.0-0.3 10^3/uL Basophils # (Auto) 0.1 0.0-0.1 10^3/uL Immature Granulocyte # (Auto) 0.0 0.0-0.1 10^3/uL Prothrombin Time 15.9 H 12.2-14.7 SEC INR Comment 1.2 0.8-1.4 Activated Partial Thromboplast Time 30 24-35 SEC Sodium Level 138 135-145 MMOL/L Potassium Level 4.3 3.6-5.0 MMOL/L Chloride Level 104 98-107 MMOL/L Carbon Dioxide Level 23 21-32 MMOL/L Anion Gap 11 5-14 MMOL/L Blood Urea Nitrogen 14 7-18 MG/DL Creatinine 1.36 H 0.60-1.30 MG/DL Estimat Glomerular Filtration Rate 51 BUN/Creatinine Ratio 10 Glucose Level 241 H 70-105 MG/DL Calcium Level 10.4 H 8.5-10.1 MG/DL Corrected Calcium 10.2 H 8.5-10.1 MG/DL Magnesium Level 1.7 1.6-2.4 MG/DL Total Bilirubin 0.6 0.1-1.0 MG/DL Aspartate Amino Transf (AST/SGOT) 15 5-34 U/L Alanine Aminotransferase (ALT/SGPT) 19 0-55 U/L Alkaline Phosphatase 72 40-136 U/L Myoglobin 54.5 10.0-92.0 NG/ML Troponin I < 0.028 <0.028 NG/ML Total Protein 7.7 6.4-8.2 GM/DL Albumin 4.3 3.2-4.5 GM/DL Digoxin Level 0.72 L 0.80-2.00 NG/ML My Orders Orders - CHARO SCHNEIDER MD Cbc With Automated Diff (01/13/21 14:33) Magnesium (01/13/21 14:33) Chest 1 View, Ap/Pa Only (01/13/21 14:33) Ekg Tracing (01/13/21 14:33) Comprehensive Metabolic Panel (01/13/21 14:33) Myoglobin Serum (01/13/21 14:33) Protime With Inr (01/13/21 14:33) Partial Thromboplastin Time (01/13/21 14:33) Monitor-Rhythm Ecg Trace Only (01/13/21 14:33) Lipid Panel (01/14/21 06:00) Ed Iv/Invasive Line Start (01/13/21 14:33) Troponin I (01/13/21 14:33) Ed Iv/Invasive Line Start (01/13/21 14:33) Ns Iv 500 Ml (Sodium Chloride 0.9%) (01/13/21 14:45) Diltiazem Drip Pre-Mix (Cardizem Drip Pr (01/13/21 14:45) Diltiazem Injection (Cardizem Injection) (01/13/21 14:45) Digoxin (01/13/21 15:00) Medications Given in ED Current Medications Medications Dose Ordered Sig/Alka Route Start Time Stop Time Status Last Admin Dose Admin Diltiazem HCl 20 mg ONCE ONCE IVP 01/13/21 14:45 01/13/21 14:46 DC 01/13/21 14:45 20 MG Sodium Chloride 500 ml @ 0 mls/hr Q0M ONCE IV 01/13/21 14:45 01/13/21 14:46 DC 01/13/21 14:45 0 MLS/HR Vital Signs/I&O 01/13/21 01/13/21 01/13/21 14:20 15:02 16:01 Temp 36.8 Pulse 147 81 81 Resp 22 18 18 B/P (MAP) 133/103 (113) 124/92 129/81 Pulse Ox 97 98 O2 Delivery Room Air Room Air Room Air Progress Progress Note : Progress Note Seen and evaluated. IV, labs, EKG and chest x-ray ordered. No aspirin indicated as patient is not having chest pain. He is on Eliquis and reports taking that as directed. He does have tachycardia noted on monitor. EKG does show A. fib with RVR versus and more likely, atrial flutter at a rate of 150. We will initiate Cardizem 20 mg IV bolus followed by 10 mg/h IV infusion. Normal saline 500 mL bolus. Patient does not want to stay in the hospital and would like to go home if possible. We did discuss his tachycardia and will try to get control of rate. Monitor patient. 1500: Patient's heart rate improved after bolus of Cardizem. I did discuss the case with Dr. Stiles. We will go ahead and continue Cardizem at 10 mg/h for continued rate control. Patient is currently in atrial flutter. Patient needs admission. He will see the patient in consult. 1558: I did discuss the case with Dr. Joseph and he accepts patient for admission, observation status to the ICU. 1616: Patient is being seen by Dr. Stiles now. Initial ECG Impression Date: Jan 13, 2021 Initial ECG Impression Time: 14:23 Initial ECG Rate: 150 Initial ECG Rhythm: A Fib/Flutter Initial ECG Impression: Atrial Fibrillation w/RVR Initial ECG Comparisson: Changed (11/12/20) Comment Atrial fibrillation/flutter with rapid ventricular response and rate of 150. Left axis deviation. No evidence of ST elevation [place]. Interpreted by me. Diagnostic Imaging Diagonstic Imaging: Xray Plain Films/CT/US/NM/MRI: chest Comments [facility] [place], [place] NAME: CASTRO PADRON [facility] REC#: [id number] PT STATUS: REG ER : 1940 PHYSICIAN: CHARO SCHNEIDER MD ADMIT DATE: 01/13/21/ER Draft Date of Exam:01/13/21 CHEST 1 VIEW, AP/PA ONLY INDICATION: Chest pain. AP view of the chest obtained with comparison made to study of 11/12/2020. Heart size and pulmonary vascularity are within normal limits. There is no evidence of pneumothorax or consolidation. Surgical findings are again noted in the mediastinum. There is no evidence of pneumothorax or pleural fluid. IMPRESSION: No acute abnormality or adverse change. Dictated on workstation # [id number] Dict: 01/13/21 1535 Trans: 01/13/[address] [facility] [id number] Interpreted by: PRINCESS CARRERA MD Electronically signed by: Departure Communication (Admissions) Time/Spoke to Admitting Phy: 15:58 Time/Spoke to Consulting Phy: 15:00 Impression Primary Impression: Paroxysmal atrial flutter Disposition: ADMITTED INPATIENT Condition: Stable Admissions Decision to Admit Reason: Admit from ER (General) Decision to Admit/Date: Jan 13, 2021 Time/Decision to Admit Time: 14:58 Departure-Patient Inst. Referrals: ISRAEL AVALOS MD (PCP/Family) Primary Care Physician CHARO SHCNEIDER MD Jan 13, 2021 14:44
[2021-01-13] MEDS ORDERED: NS IV 500 ML 500 ML IV ONE (14:45)
[2021-01-13] MEDS: dilTIAZem DRIP PRE-MIX 125 ML IV SCH (14:45)
[2021-01-13 14:47] LABS: INR 1.2 (0.8-1.4); PROTHROMBIN TIME PATIENT 15.9 SEC (12.2-14.7)
[2021-01-13 14:48] LABS: ALBUMIN 4.3 GM/DL (3.2-4.5); POTASSIUM 4.3 MMOL/L (3.6-5.0)
[2021-01-13 14:49] LABS: CALCIUM 10.4 MG/DL (8.5-10.1)
[2021-01-13 14:50] LABS: TOTAL PROTEIN 7.7 GM/DL (6.4-8.2)
[2021-01-13 14:52] LABS: BILIRUBIN,TOTAL 0.6 MG/DL (0.1-1.0)
[2021-01-13 14:54] LABS: CREATININE SERUM 1.36 MG/DL (0.60-1.30)
[2021-01-13 14:57] LABS: MAGNESIUM 1.7 MG/DL (1.6-2.4)
--- NOTE | 2021-01-13 15:37 | Diagnostic Imaging Report ---
INDICATION: Chest pain. AP view of the chest obtained with comparison made to study of 11/12/2020. Heart size and pulmonary vascularity are within normal limits. There is no evidence of pneumothorax or consolidation. Surgical findings are again noted in the mediastinum. There is no evidence of pneumothorax or pleural fluid. IMPRESSION: No acute abnormality or adverse change. Dictated by: Dictated on workstation # [id number]
[2021-01-13 16:26] VITALS: BP 132/93
--- NOTE | 2021-01-13 16:30 | Consultation-Cardiology ---
HPI-Cardiology Cardiology Consultation Date of Consultation 01/13/21 Date of Admission Time Seen by Provider: 16:25 Indication: Palpitation HPI 80-year-old gentleman with history of paroxysmal atrial fibrillation/flutter, has been doing well for the past year. Started to have palpitation last night, came into the emergency room and noted to have atrial flutter with a heart rate 150, improved slightly with a heart rate after starting Cardizem, then degenerated to atrial fibrillation. On my evaluation he was in atrial fibrillation right heart rate in the 80s. Denied any chest pain. No syncope or near syncopal episodes. Home Medications & Allergies Allergies: Coded Allergies: celecoxib (Unverified Allergy, Mild, TAKES ASPIRIN AT HOME, 01/28/19) diclofenac (Unverified Allergy, Mild, TAKES ASPIRIN AT HOME, 01/28/19) naproxen (Unverified Allergy, Mild, TAKES ASPIRIN AT HOME, 01/28/19) rosuvastatin (Unverified Allergy, Mild, 01/28/19) Penicillins (Verified Allergy, Unknown, 01/28/19) amoxicillin (Verified Allergy, Unknown, 01/28/19) fenofibrate (Unverified Allergy, Unknown, 01/28/19) gemfibrozil (Unverified Allergy, Unknown, 10/15/19) simvastatin (Unverified Allergy, Unknown, 01/28/19) Home Medication List Reviewed: Yes YWV-Gmqwsu-Auqbee Hx Patient Social History Marital Status: Employed/Student: retired Former smoker/When Quit: May 31, 1999 Type Used: Cigarettes 2nd Hand Smoke Exposure: No Recent Hopitalizations: No Have you traveled recently?: No Alcohol Use?: No Immunizations Up To Date Tetanus Booster (TDap): Less than 5yrs Date of Pneumonia Vaccine: May 22, 2017 Date of Influenza Vaccine: Mar 08, 2018 Past Medical History Discussed below Family Medical History Significant Family History: CAD Over 55 Years Old Family History: Cancer G8 BROTHER Cataract 19 FATHER 19 MOTHER G8 BROTHER G8 BROTHER G8 SISTER Congestive heart failure 19 FATHER 19 MOTHER Family history: Arthritis 19 FATHER 19 MOTHER G8 BROTHER G8 BROTHER G8 SISTER G8 SISTER DAUGHTER SON Family history: Breast disease DAUGHTER Family history: Cardiovascular disease 19 FATHER Family history: Diabetes mellitus 19 FATHER G8 BROTHER G8 SISTER Family history: Hypertension 19 FATHER 19 MOTHER G8 BROTHER G8 BROTHER G8 SISTER G8 SISTER DAUGHTER SON Family history: Thyroid disorder DAUGHTER Heart disease 19 FATHER 19 MOTHER G8 BROTHER Hypercholesterolemia 19 FATHER 19 MOTHER G8 BROTHER G8 BROTHER G8 SISTER Myocardial infarction 19 FATHER 19 MOTHER G8 BROTHER No Family History of: Abdominal aortic aneurysm [place]'s disease Alcoholism Aphasia Cancer of colon Chest pain Congenital heart disease Cystic fibrosis Dementia Dysphagia Family history: Allergy Family history: Alzheimer's disease Family history: Asthma Family history: Coronary thrombosis Family history: Gastrointestinal disease Family history: Glaucoma Family history: Osteoporosis Headache Hearing loss Hereditary disease History of - anemia History of - disorder History of - respiratory disease History of drug abuse Human immunodeficiency virus (HIV) seropositivity Infertile Kidney disease Malignant neoplasm of lung Parkinson's disease Prostate cancer Psychotic disorder Seizure disorder Stroke Tuberculosis Visual impairment Review of Systems-General Review of Systems Constitutional: No chills, No fever EENTM: see HPI, no symptoms reported Respiratory: no symptoms reported, see HPI Cardiovascular: see HPI; No chest pain, No edema, No Hx of Intervention; palpitations; No syncope, No vascular heart diseas, No other Gastrointestinal: no symptoms reported, see HPI Genitourinary: no symptoms reported, see HPI Musculoskeletal: no symptoms reported Skin: no symptoms reported, see HPI Psychiatric/Neurological: No Symptoms Reported, See HPI All Other Systems Reviewed Negative Unless Noted: Yes Reviewed Test Results Reviewed Test Results Lab Laboratory Tests Test 01/13/21 14:25 Range/Units White Blood Count 7.4 4.3-11.0 10^3/uL Red Blood Count 4.98 4.30-5.52 10^6/uL Hemoglobin 14.8 13.3-17.7 g/dL Hematocrit 46 40-54 % Mean Corpuscular Volume 93 80-99 fL Mean Corpuscular Hemoglobin 30 25-34 pg Mean Corpuscular Hemoglobin Concent 32 32-36 g/dL Red Cell Distribution Width 13.8 10.0-14.5 % Platelet Count 303 130-400 10^3/uL Mean Platelet Volume 10.2 9.0-12.2 fL Immature Granulocyte % (Auto) 0 % Neutrophils (%) (Auto) 67 42-75 % Lymphocytes (%) (Auto) 23 12-44 % Monocytes (%) (Auto) 8 0-12 % Eosinophils (%) (Auto) 2 0-10 % Basophils (%) (Auto) 1 0-10 % Neutrophils # (Auto) 4.9 1.8-7.8 10^3/uL Lymphocytes # (Auto) 1.7 1.0-4.0 10^3/uL Monocytes # (Auto) 0.6 0.0-1.0 10^3/uL Eosinophils # (Auto) 0.1 0.0-0.3 10^3/uL Basophils # (Auto) 0.1 0.0-0.1 10^3/uL Immature Granulocyte # (Auto) 0.0 0.0-0.1 10^3/uL Prothrombin Time 15.9 H 12.2-14.7 SEC INR Comment 1.2 0.8-1.4 Activated Partial Thromboplast Time 30 24-35 SEC Sodium Level 138 135-145 MMOL/L Potassium Level 4.3 3.6-5.0 MMOL/L Chloride Level 104 98-107 MMOL/L Carbon Dioxide Level 23 21-32 MMOL/L Anion Gap 11 5-14 MMOL/L Blood Urea Nitrogen 14 7-18 MG/DL Creatinine 1.36 H 0.60-1.30 MG/DL Estimat Glomerular Filtration Rate 51 BUN/Creatinine Ratio 10 Glucose Level 241 H 70-105 MG/DL Calcium Level 10.4 H 8.5-10.1 MG/DL Corrected Calcium 10.2 H 8.5-10.1 MG/DL Magnesium Level 1.7 1.6-2.4 MG/DL Total Bilirubin 0.6 0.1-1.0 MG/DL Aspartate Amino Transf (AST/SGOT) 15 5-34 U/L Alanine Aminotransferase (ALT/SGPT) 19 0-55 U/L Alkaline Phosphatase 72 40-136 U/L Myoglobin 54.5 10.0-92.0 NG/ML Troponin I < 0.028 <0.028 NG/ML Total Protein 7.7 6.4-8.2 GM/DL Albumin 4.3 3.2-4.5 GM/DL Digoxin Level 0.72 L 0.80-2.00 NG/ML Physical Exam Physical Exam Vital Signs Vital Signs - First Documented 01/13/21 14:20 Temp 36.8 Pulse 147 Resp 22 B/P (MAP) 133/103 (113) Pulse Ox 97 O2 Delivery Room Air Capillary Refill : Less Than 3 Seconds Height, Weight, BMI Height: 6'0" Weight: 180lbs. 4.0oz. 81.519396bp; 26.00 BMI Method:Stated General Appearance: No Apparent Distress, WD/WN HEENT: PERRL/EOMI, TMs Normal, Pharynx Normal Neck: Non Tender, Supple Respiratory: Lungs Clear, Normal Breath Sounds Cardiovascular: Irregularly Irregular, Tachycardia Gastrointestinal: Non Tender, Soft Extremity: Normal Range of Motion, Non Tender, No Calf Tenderness, No Pedal Edema Neurologic/Psychiatric: Alert, Oriented x3 Skin: Normal Color, Warm/Dry A/P-Cardiology Admission Diagnosis Paroxysmal atrial flutter Chest pain Coronary artery disease Hypertension Assessment/Plan Paroxysmal atrial flutter, degenerated to atrial fibrillation. Has been maintained on digoxin and Cardizem, came into the emergency room with a heart rate 150. Patient has history of multiple breakthrough with atrial flutter, he has seen Dr. Clayton and Dr. Tilley in the past. Intolerant to amiodarone, un able to take class Ic antiarrhythmic medication due to recurrent angina, we discussed in the past the use of sotalol and does not want to stay in the hospital for loading dose. Started on Cardizem drip and Lovenox. Has been on Eliquis as an outpatient. I referred him to EP in the past for possible ablation and patient did not go. Will consider VAN and cardioversion in the morning History of chest pain, he was scheduled for stress test multiple times and did not show up. I did not see him for the past year but he reported that he has been feeling better and no chest pain was reported Coronary artery disease, multiple cardiac catheterization in the past, last cardiac catheterization September 2016 showing severe makah disease with patent vein graft to the right coronary artery, diagonal artery, LAD and occluded vein graft to the obtuse marginal branch which is probably the reason of his chest pain. Medical therapy is recommended Intolerance to Brilinta causing increased dyspnea Sinus node dysfunction with episode of bradycardia. Intolerant to beta blockers, intolerant to amiodarone. History of mild carotid stenosis Hypertension with episode of hypotension and dizziness and syncope. Monitor blood pressure Hyperlipidemia, monitor lipids Peripheral arterial disease Degenerative joint disease Diabetes mellitus History of pancreatitis Clinical Quality Measures AMI/AHF: ASA po Prior to arrival: BISI Cummings MD Jan 13, 2021 16:30
[2021-01-13] MEDS ORDERED: dilTIAZem DRIP PRE-MIX 125 ML IV SCH (17:00)
[2021-01-13] MEDS: ENOXAPARIN 100 MG/1 ML (LOVENOX) SYR SC SCH (17:04)
--- NOTE | 2021-01-13 17:25 | Tele-ICU Progress Note ---
Progress Note Video assessment done , Hemodynamically stable Available charting reviewed, discussed with RN NO TELE-ICU CONSULT REQUESTED CONTINUE TO MONITOR PER USUAL TELE-ICU PROTOCOL No need for Tele-ICU interventions Plans as delineated by bedside physicians / consultants A/P -PAF RVR- ( COOK CHILI on digoxin and Cardizem ,Intolerant to amiodarone, Intolerant to beta blockers- sinus pauses , on Eliquis - on Cardizem drip and Lovenox - seen by cards: VAN and cardioversion in the morning CAD, extensive - as per cards Focused Exam Height, Weight, BMI Height: 6'0" Weight: 180lbs. 4.0oz. 81.040900kc; 26.20 BMI Method:Stated JE MARTINEZ MD Jan 13, 2021 17:25
[2021-01-13] MEDS ORDERED: APIXABAN 5 MG (ELIQUIS) TABLET PO SCH (21:00)
[2021-01-14] MEDS: dilTIAZem DRIP PRE-MIX 125 ML IV SCH (00:31)
[2021-01-14] MEDS: ENOXAPARIN 100 MG/1 ML (LOVENOX) SYR SC SCH (04:58)
[2021-01-14] MEDS ORDERED: KCL 20 MEQ TAB (K-DUR) PO SCH (06:00)
[2021-01-14] MEDS ORDERED: POTASSIUM CL 10MEQ/50ML IVPB 50 ML IV SCH (06:00)
[2021-01-14] MEDS ORDERED: MAGNESIUM 1 GM/100 ML IVPB 100 ML IV SCH (06:00)
[2021-01-14 06:05] LABS: BASOPHILS # (AUTO) 0.1 10^3/uL (0.0-0.1); BASOPHILS % (AUTO) 1 % (0-10); EOSINOPHILS # (AUTO) 0.1 10^3/uL (0.0-0.3); EOSINOPHILS % (AUTO) 2 % (0-10); HEMATOCRIT 42 % (40-54); HEMOGLOBIN 13.4 g/dL (13.3-17.7); LYMPHOCYTES # (AUTO) 2.4 10^3/uL (1.0-4.0); LYMPHOCYTES % (AUTO) 32 % (12-44); MEAN CORPUSCULAR HEMOGLOBIN 30 pg (25-34); MEAN CORPUSCULAR HGB CONC 32 g/dL (32-36); MEAN CORPUSCULAR VOLUME 93 fL (80-99); MEAN PLATELET VOLUME 10.6 fL (9.0-12.2); MONOCYTES # (AUTO) 0.6 10^3/uL (0.0-1.0); MONOCYTES % (AUTO) 8 % (0-12); NEUTROPHILS # (AUTO) 4.3 10^3/uL (1.8-7.8); NEUTROPHILS % (AUTO) 57 % (42-75); PLATELET COUNT 269 10^3/uL (130-400); WHITE BLOOD COUNT 7.4 10^3/uL (4.3-11.0)
[2021-01-14 06:12] LABS: POTASSIUM 3.5 MMOL/L (3.6-5.0)
[2021-01-14 06:13] LABS: ALBUMIN 3.8 GM/DL (3.2-4.5)
[2021-01-14 06:14] LABS: CALCIUM 9.6 MG/DL (8.5-10.1)
[2021-01-14 06:15] LABS: TOTAL PROTEIN 6.8 GM/DL (6.4-8.2)
[2021-01-14 06:17] LABS: BILIRUBIN,TOTAL 0.5 MG/DL (0.1-1.0)
[2021-01-14 06:18] LABS: PHOSPHORUS 2.4 MG/DL (2.3-4.7)
[2021-01-14 06:19] LABS: CREATININE SERUM 1.23 MG/DL (0.60-1.30)
[2021-01-14 06:22] LABS: MAGNESIUM 1.7 MG/DL (1.6-2.4)
[2021-01-14] MEDS: MAGNESIUM 1 GM/100 ML IVPB 100 ML IV SCH ×2 (07:25→08:38)
[2021-01-14] MEDS: POTASSIUM CL 10MEQ/50ML IVPB 50 ML IV SCH ×2 (07:25→08:37)
[2021-01-14] MEDS ORDERED: CITA20TA9 PO (09:08)
[2021-01-14] MEDS ORDERED: CHOL20003 PO (09:08)
[2021-01-14] MEDS ORDERED: LORA-405 PO (09:08)
[2021-01-14] MEDS ORDERED: CLN.1T PO (09:21)
[2021-01-14] MEDS ORDERED: FENO135C4 PO (09:21)
--- NOTE | 2021-01-14 10:02 | Progress Note - Cardiology ---
Cardiology SOAP Progress Note Subjective: No cp or palp or syncope or shortness of breath Some gen malaise present, but improved No n/v/d Wishes to go home Objective: I&O/Vital Signs 01/13/21 01/13/21 01/13/21 01/13/21 22:00 22:07 23:00 23:27 Temp 36.8 Pulse 66 75 B/P (MAP) 107/68 141/82 Pulse Ox 96 98 96 O2 Delivery Room Air Room Air Room Air 01/14/21 01/14/21 01/14/21 01/14/21 00:00 00:00 01:00 01:00 Pulse 63 64 64 Resp 19 B/P (MAP) 119/73 131/70 Pulse Ox 97 96 95 O2 Delivery Room Air Room Air Room Air 01/14/21 01/14/21 01/14/21 01/14/21 02:00 03:00 04:00 04:00 Pulse 73 74 75 Resp 16 16 16 B/P (MAP) 114/70 138/87 128/78 Pulse Ox 94 96 97 97 O2 Delivery Room Air Room Air Room Air Room Air 01/14/21 01/14/21 01/14/21 01/14/21 04:58 05:00 06:00 07:00 Temp 36.9 Pulse 69 76 65 Resp 15 16 7 B/P (MAP) 102/67 111/87 115/71 Pulse Ox 95 95 96 O2 Delivery Room Air Room Air Room Air 01/14/21 01/14/21 01/14/21 01/14/21 07:00 07:44 08:00 08:48 Temp 35.5 Pulse 62 55 Resp 10 B/P (MAP) 116/82 Pulse Ox 97 O2 Delivery Room Air Room Air 01/14/21 09:00 Pulse 73 Resp 23 B/P (MAP) 129/77 Pulse Ox 96 O2 Delivery Room Air 01/14/21 00:00 Intake Total 1000 ml Output Total 675 ml Balance 325 ml Weight (Pounds): 180 Weight (Ounces): 4.0 Weight (Calculated Kilograms): 81.688818 Constitutional: AAO x 3, well-developed, well-nourished Respiratory: No accessory muscle use; other (fair to good, bilateral air entry) Cardiovascular: regular rate-rhythm, S1 and S2, systolic murmur (soft VANESSA at card base) Gastrointestional: No tender; soft; No guarding, No rebound; audible bowel sounds Extremities: No clubbing, No cyanosis, No significant edema Neurologic/Psychiatric: oriented x 3, other (moves all limbs equally) Skin: No rash on exposed areas, No ulcerations on exposed areas Results/Procedures: Labs Laboratory Tests 01/13/21 14:25: White Blood Count 7.4, Red Blood Count 4.98, Hemoglobin 14.8, Hematocrit 46, Mean Corpuscular Volume 93, Mean Corpuscular Hemoglobin 30, Mean Corpuscular Hemoglobin Concent 32, Red Cell Distribution Width 13.8, Platelet Count 303, Mean Platelet Volume 10.2, Immature Granulocyte % (Auto) 0, Neutrophils (%) (Auto) 67, Lymphocytes (%) (Auto) 23, Monocytes (%) (Auto) 8, Eosinophils (%) (Auto) 2, Basophils (%) (Auto) 1, Neutrophils # (Auto) 4.9, Lymphocytes # (Auto) 1.7, Monocytes # (Auto) 0.6, Eosinophils # (Auto) 0.1, Basophils # (Auto) 0.1, Immature Granulocyte # (Auto) 0.0, Prothrombin Time 15.9H, INR Comment 1.2, Activated Partial Thromboplast Time 30, Sodium Level 138, Potassium Level 4.3, Chloride Level 104, Carbon Dioxide Level 23, Anion Gap 11, Blood Urea Nitrogen 14, Creatinine 1.36H, Estimat Glomerular Filtration Rate 51, BUN/Creatinine Ratio 10, Glucose Level 241H, Calcium Level 10.4H, Corrected Calcium 10.2H, Magnesium Level 1.7, Total Bilirubin 0.6, Aspartate Amino Transf (AST/SGOT) 15, Alanine Aminotransferase (ALT/SGPT) 19, Alkaline Phosphatase 72, Myoglobin 54.5, Troponin I < 0.028, Total Protein 7.7, Albumin 4.3, Digoxin Level 0.72L 01/14/21 05:05: White Blood Count 7.4, Red Blood Count 4.50, Hemoglobin 13.4, Hematocrit 42, Mean Corpuscular Volume 93, Mean Corpuscular Hemoglobin 30, Mean Corpuscular Hemoglobin Concent 32, Red Cell Distribution Width 13.8, Platelet Count 269, Mean Platelet Volume 10.6, Immature Granulocyte % (Auto) 1, Neutrophils (%) (Auto) 57, Lymphocytes (%) (Auto) 32, Monocytes (%) (Auto) 8, Eosinophils (%) (Auto) 2, Basophils (%) (Auto) 1, Neutrophils # (Auto) 4.3, Lymphocytes # (Auto) 2.4, Monocytes # (Auto) 0.6, Eosinophils # (Auto) 0.1, Basophils # (Auto) 0.1, Immature Granulocyte # (Auto) 0.0, Sodium Level 140, Potassium Level 3.5L, Chloride Level 107, Carbon Dioxide Level 21, Anion Gap 12, Blood Urea Nitrogen 11, Creatinine 1.23, Estimat Glomerular Filtration Rate 57, BUN/Creatinine Ratio 9, Glucose Level 126H, Calcium Level 9.6, Corrected Calcium 9.8, Magnesium Level 1.7, Total Bilirubin 0.5, Aspartate Amino Transf (AST/SGOT) 15, Alanine Aminotransferase (ALT/SGPT) 18, Alkaline Phosphatase 62, Total Protein 6.8, Albumin 3.8, Phosphorus Level 2.4, Triglycerides Level 198H, Cholesterol Level 149, LDL Cholesterol Direct 105, VLDL Cholesterol 40, HDL Cholesterol 28L Laboratory Tests 01/13/21 14:25 01/14/21 05:05 Physician Assessment Physician Assessment PAF, admitted on 01/13/21 with RVR. He has seen Dr. Grover and Dr. Tilley in the past. Intolerant to amiodarone and beta-dennis, unable to take class Ic antiarrhythmic medication due to CAD, has not agreed to stay in the hospital for sotalol loading. Has been on Eliquis as an outpatient. Placed on iv diltiazem yesterday. In NSR at time of my exam this am. Oral long-acting dilt initiated. Eliquis is being continued. Outpt f/u advised with dr Stiles Coronary artery disease, multiple cardiac catheterization in the past, last cardiac catheterization September 2016 showing severe tuscarora disease with patent vein graft to the right coronary artery, diagonal artery, LAD and occluded vein graft to the obtuse marginal branch which is probably the reason of his chest pain. Medical therapy is recommended Intolerance to Brilinta (causing increased dyspnea) History of mild carotid stenosis H/o labile hypertension, currently stable Hyperlipidemia, monitor lipids Peripheral arterial disease Degenerative joint disease Diabetes mellitus, managed by pcp History of pancreatitis, managed by pcp Clinical Quality Measures AMI/AHF: ASA po Prior to arrival: ISIDRO Hill MD FACP FAC CCDS Jan 14, 2021 10:02 am
[2021-01-14] MEDS ORDERED: DILT240C53 PO (10:38)
== END 2021-01-14 11:55 | disposition home or self-care (01) ==
LOC: EDUNIT# 14:14 → ER 14:17 → ICU 16:01
PROVIDERS: ADMIT Internal Medicine; ATTEND Internal Medicine
DX: I48.0 Paroxysmal atrial fibrillation (principal); I65.9 Occlusion and stenosis of unspecified precerebral artery; I10 Essential (primary) hypertension; I73.9 Peripheral vascular disease, unspecified; I25.10 Atherosclerotic heart disease of native coronary artery without angina pectoris; I25.2 Old myocardial infarction; J44.9 Chronic obstructive pulmonary disease, unspecified; G47.30 Sleep apnea, unspecified; E78.00 Pure hypercholesterolemia, unspecified; K21.9 Gastro-esophageal reflux disease without esophagitis; K59.00 Constipation, unspecified; M19.90 Unspecified osteoarthritis, unspecified site; G89.29 Other chronic pain; M54.9 Dorsalgia, unspecified; E11.9 Type 2 diabetes mellitus without complications; E78.5 Hyperlipidemia, unspecified; F41.9 Anxiety disorder, unspecified; Z95.1 Presence of aortocoronary bypass graft; Z86.73 Personal history of transient ischemic attack (TIA), and cerebral infarction without residual deficits; Z79.4 Long term (current) use of insulin; Z80.9 Family history of malignant neoplasm, unspecified; Z80.3 Family history of malignant neoplasm of breast
CPT/HCPCS: 71045; 80053 ×2; 80061; 80162; 83735 ×2; 83874; 84100; 84484; 85025 ×2; 85610; 85730; 87081; 93005; 93041; 99285; G0378; 36415; 96361; 96374

== ENCOUNTER 2021-01-29 20:45 | Emergency (ER) | payer MEDICARE, MEDICAID ==
[~2021-01-29] VITALS: Ht 182 cm; Wt 83.6 kg
[~2021-01-29 20:45] MED LIST changes: +CHOL20003 PO; +CITA20TA9 PO; +FENO135C4 PO; +LORA-405 PO
[2021-01-29] MEDS ORDERED: NS IV 1000 ML 1,000 ML ONE (21:00)
[2021-01-29] MEDS ORDERED: NS IV 1000 ML 1,000 ML IV SCH ×2 (21:00→21:45)
[2021-01-29] MEDS ORDERED: dilTIAZem DRIP PRE-MIX 125 ML IV SCH (21:00)
[2021-01-29] MEDS ORDERED: dilTIAZem DRIP PRE-MIX 125 ML IV ONE (21:00)
[2021-01-29 21:07] LABS: BASOPHILS # (AUTO) 0.1 10^3/uL (0.0-0.1); BASOPHILS % (AUTO) 1 % (0-10); EOSINOPHILS # (AUTO) 0.1 10^3/uL (0.0-0.3); EOSINOPHILS % (AUTO) 2 % (0-10); HEMATOCRIT 43 % (40-54); LYMPHOCYTES # (AUTO) 2.1 10^3/uL (1.0-4.0); LYMPHOCYTES % (AUTO) 30 % (12-44); MEAN CORPUSCULAR HEMOGLOBIN 30 pg (25-34); MEAN CORPUSCULAR HGB CONC 33 g/dL (32-36); MEAN CORPUSCULAR VOLUME 91 fL (80-99); MEAN PLATELET VOLUME 10.6 fL (9.0-12.2); MONOCYTES # (AUTO) 0.4 10^3/uL (0.0-1.0); MONOCYTES % (AUTO) 6 % (0-12); NEUTROPHILS # (AUTO) 4.4 10^3/uL (1.8-7.8); NEUTROPHILS % (AUTO) 62 % (42-75); PLATELET COUNT 294 10^3/uL (130-400)
[2021-01-29] MEDS ORDERED: ENOXAPARIN 100 MG/1 ML (LOVENOX) SYR ONE (21:12)
[2021-01-29 21:15] LABS: INR 1.2 (0.8-1.4); PROTHROMBIN TIME PATIENT 15.3 SEC (12.2-14.7)
[2021-01-29] MEDS ORDERED: ENOXAPARIN 100 MG/1 ML (LOVENOX) SYR SC ONE (21:15)
[2021-01-29 21:25] LABS: ALANINE AMINOTRANSFERASE 15 U/L (0-55); ALBUMIN 3.8 GM/DL (3.2-4.5); ALKALINE PHOSPHATASE 65 U/L (40-136); BILIRUBIN,TOTAL 0.3 MG/DL (0.1-1.0); BUN/CREATININE RATIO 8; CALCIUM 9.7 MG/DL (8.5-10.1); CARBON DIOXIDE 20 MMOL/L (21-32); CHLORIDE 107 MMOL/L (98-107); CREATINE KINASE 94 U/L (30-200); CREATININE SERUM 1.71 MG/DL (0.60-1.30); GFR ESTIMATED 39; MAGNESIUM 1.8 MG/DL (1.6-2.4); POTASSIUM 4.4 MMOL/L (3.6-5.0); SODIUM 139 MMOL/L (135-145); TOTAL PROTEIN 6.9 GM/DL (6.4-8.2)
[2021-01-29 21:28] LABS: GLUCOSE 463 MG/DL (70-105)
--- NOTE | 2021-01-29 21:29 | ED Cardiac General ---
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 ), old records History of Present Illness Date Seen by Provider: Jan 29, 2021 Time Seen by Provider: 20:53 Initial Comments PT ARRIVES VIA POV FROM HOME PT STATES "JUST DON'T FEEL GOOD TODAY" --UNABLE TO ELABORATE SPECIFIC SYMPTOMS TO HOW HE "DOESN'T FEEL GOOD' PT STATES "HAD AFIB THIS MORNING THEN IT WENT AWAY, THEN MY BLOOD PRESSURE STARTED GOING DOWN" STATES HE FELT LIKE HE WAS IN AFIB AROUND 0900 THIS AM, AND LASTED A COUPLE OF HOURS STATES AROUND 1800 TONIGHT, HIS BLOOD PRESSURE WAS 88/65. PT DOES NOT KNOW WHAT HIS HEART RATE HAS BEEN AT ANY TIME TODAY, AND DOES NOT KNOW WHAT HIS BLOOD PRESSURE WAS EARLIER IN THE DAY--DID NOT CHECK IT PT HAS HAD LONGSTANDING HISTORY ATRIAL FIBRILLATION AND ATRIAL FLUTTER HAS BEEN MAINTAINED ON ELIQUIS, DIGOXIN .125, CARTIA XT 240 MG, CLONIDINE 0.1 MG, PENTOXIFYLLINE PT STATES HE TOOK HIS MORNING MEDICATIONS BUT HAS NOT TAKEN ANY OF HIS EVENING MEDICATIONS, AND DENIES ANY MISSED DOSES OF MEDICATIONS OR ANY RECENT MEDICATION CHANGES PT ADMITTED 01/13-01/14/21 FOR SAME, WAS GIVEN CARDIZEM IV BOLUS AND PLACED IN A DRIP, AND GIVEN A DOSE OF DIGOXIN, AND CONVERTED TO NSR. PT HAS NOT FOLLOWED UP WITH DOG LICENSER--STATES HE "HAD TO GO TO [place] INSTEAD" AND JUST GOT BACK YESTERDAY, AND HAS NOT ATTEMPTED TO RESCHEDULE HIS APPOINTMENT PT DENIES ANY CHEST PAIN C/O SLIGHT SHORTNESS OF BREATH C/O SLIGHT DIZZINESS NO SYNCOPE NO NAUSEA/VOMITING NO SWEATS STATES HE HAS HAD A LITTLE SWELLING IN HIS LEGS THE LAST COUPLE OF WEEKS, BUT NOT NOW. PT IS DIABETIC, BUT HAS NOT CHECKED HIS BLOOD SUGAR TONIGHT--CLAIMS IT WAS "200 SOMETHING" THIS MORNING. HAS NOT TAKEN HIS DIABETIC MEDICATION TONIGHT, CLAIMS HE TOOK HIS MEDICATION THIS MORNING. PT HAS HISTORY OF NON-COMPLIANCE IN ALL ASPECTS OF CARE PT HAS BEEN REFERRED TO EP FOR CARDIAC ABLATION, AND PT NEVER KEPT APPOINTMENT PT HAS REPEATEDLY FAILED TO SHOW UP FOR MULTIPLE SCHEDULED STRESS TESTS PT HAS REPEATEDLY FAILED TO SHOW UP FOR MULTIPLE CARDIOLOGY VISITS WITH DR. GARCIA PT WITH A MULTITUDE OF VISITS FOR VARIOUS COMPLAINTS NO FEVER OR RECENT ILLNESS PT HAS NOT HAD COVID-19 VACCINE PCP: DR. AVALOS--HAS NOT SEEN RECENTLY DOG LICENSER: DR. GARCIA--HAS NOT FOLLOWED UP IN OFFICE IN A LONG TIME Allergies and Home Medications Allergies Coded Allergies: celecoxib (Unverified Allergy, Mild, TAKES ASPIRIN AT HOME, 01/28/19) diclofenac (Unverified Allergy, Mild, TAKES ASPIRIN AT HOME, 01/28/19) naproxen (Unverified Allergy, Mild, TAKES ASPIRIN AT HOME, 01/28/19) rosuvastatin (Unverified Allergy, Mild, 01/28/19) Penicillins (Verified Allergy, Unknown, 01/28/19) amoxicillin (Verified Allergy, Unknown, 01/28/19) fenofibrate (Unverified Allergy, Unknown, 01/28/19) gemfibrozil (Unverified Allergy, Unknown, 10/15/19) simvastatin (Unverified Allergy, Unknown, 01/28/19) Patient Home Medication List Home Medication List Reviewed: Yes Apixaban (Eliquis) 5 Mg Tablet, 5 MG PO BID, (Reported) Entered as Reported by: CASTRO BURLESON on 07/23/16 1855 Cholecalciferol (Vitamin D3) (Vitamin D3) 50 Mcg Capsule, 50 MCG PO DAILY, (Reported) Entered as Reported by: JHON PAZ on 01/14/21 0908 Citalopram Hydrobromide (Citalopram HBr) 20 Mg Tablet, 20 MG PO DAILY, (Reported) Entered as Reported by: JHON PAZ on 01/14/21 0908 Clonidine HCl (Clonidine HCl) 0.1 Mg Tablet, 0.1 MG PO DAILY, (Reported) Entered as Reported by: JHON PAZ on 01/14/21 0921 Digoxin (Digoxin) 125 Mcg Tablet, 125 MCG PO DAILY, (Reported) Entered as Reported by: DANYA LIM on 03/01/16 0925 Diltiazem HCl (Cartia Xt) 240 Mg Cap.er.24h, 240 MG PO DAILY Prescribed by: GURDEEP LOPEZ on 01/14/21 1038 Fenofibric Acid (Choline) (Fenofibric Acid) 135 Mg Capsule.dr, 135 MG PO DAILY, (Reported) Entered as Reported by: JHON PAZ on 01/14/21 0921 Gabapentin (Neurontin) 300 Mg Capsule, 300 MG PO TID, (Reported) Entered as Reported by: ARTIS GONSALES on 10/09/19 1536 Glipizide (Glipizide) 10 Mg Tablet, 10 MG PO DAILY, (Reported) Entered as Reported by: ARTIS GONSALES on 10/09/19 1537 Insulin Detemir (Levemir Flextouch) 100 Unit/1 Ml Insuln.pen, 35 UNITS SQ BID, (Reported) Entered as Reported by: CASTRO BURLESON on 12/21/14 0459 Lorazepam (Ativan) 1 Mg Tablet, 1 MG PO TID PRN for ANXIETY, (Reported) Entered as Reported by: JHON PAZ on 01/14/21 0908 Nitroglycerin (Nitrostat) 0.4 Mg Tab.subl, 0.4 MG SL UD PRN for CHEST PAIN, (Reported) Entered as Reported by: ADIA GOTTLIEB on 03/22/16 0830 Pentoxifylline (Pentoxifylline) 400 Mg Tablet.er, 400 MG PO TID, (Reported) Entered as Reported by: DANYA LIM on 05/31/16 1333 Tamsulosin HCl (Flomax) 0.4 Mg Cap, 0.4 MG PO DAILY, (Reported) Entered as Reported by: GEOVANY PEDROZA on 01/28/19 1155 Review of Systems Review of Systems Constitutional: see HPI; No diaphoresis; dizziness Respiratory: See HPI, Shortness of Air Cardiovascular: See HPI; Denies Chest Pain; Edema, Irregular Heart Rate, Lightheadedness, Palpitations; Denies Syncope Gastrointestinal: No Symptoms Reported Genitourinary: No Symptoms Reported Musculoskeletal: no symptoms reported Skin: no symptoms reported Psychiatric/Neurological: No Symptoms Reported Endocrine: No Symptoms Reported Hematologic/Lymphatic: No Symptoms Reported Past Apibuqd-Pmtflf-Jwoblr Hx Patient Social History Tobacco Use?: Yes Tobacco type used: Cigarettes Smoking Status: Former Smoker Substance use?: No Alcohol Use?: Yes Alcohol Frequency: Rarely Pt feels they are or have been: No Immunizations Up To Date Tetanus Booster (TDap): Less than 5yrs PED Vaccines UTD: No Seasonal Allergies Seasonal Allergies: No Past Medical History Surgery/Hospitalization HX: CARDIAC CATHS-WITH STENT PLACEMENT--LAST CATH 03/03/[address] GARCIA: CONCLUSION: 1. Severe robinson coronary artery disease corrected with the patent 4 bypass grafts. 2. Patent stent in the proximal vein graft to the obtuse marginal branch with good flow distally 3. Patent vein graft to the diagonal artery, vein graft to the right coronary artery and AMANDA to LAD with excellent flow distally 4. Normal left ventricular size and systolic function estimated ejection fraction 60 percent DISCUSSION AND RECOMMENDATION: Medical therapy is recommended no intervention is needed CABG X 4 VESSEL LINQ DEVICE PLACED PERIPHERAL CATHS WITH STENTS IN LEGS BILATERAL TOTAL KNEE REPLACEMENTS LUMBAR LAMINECTOMY CHOLESYCTECTOMY CATARACT SURGERY EGD'S WITH ESOPHAGEAL DILATIONS--LAST ONE 10/[address] CESIA BURTON MAURISIO FUNDOPLICATION/HIATAL HERNIA REPAIR 2004 CAD,HTN,COPD, TIA, BPH, RENAL INSUFF, IDDM, ARTHRITIS, ANX. LONG HISTORY OF NON-COMPLIANCE Surgeries: Yes (CORONARY BYPASS X4;LINQ; BILAT TKR;STENTS IN LEGS;LUMBAR LAMINECTOMY) Abdominal, Angioplasty, Cardiac, CABG, Coronary Stent, Eye Surgery, Gallbladder, Joint Replacement, Open Heart Surgery, Orthopedic, Vascular Surgery Respiratory: Yes (CHRONIC DYSPNEA ON EXERTION) Sleep Apnea, COPD Currently Using CPAP: No Currently Using BIPAP: No Cardiac: Yes (LINQ DEVICE IN PLACE; S/P CABG; CARDIAC AND LEG STENTS;AFIB/FLUTTER) Atrial Fibrillation, Chronic Edema/Swelling, Coronary Artery Disease, Heart Attack, High Cholesterol, Hypertension, Peripheral Vascular Neurological: Yes (POSSIBLE STROKE/ TIA) Neuropathy (?), Stroke, TIA Reproductive Disorders: No Sexually Transmitted Disease: No HIV/AIDS: No Genitourinary: Yes (RENAL INSUFFICIENCY-NO DIALYSIS) Benign Prostatic Hyperpl, Prostate Problems, Renal Failure Gastrointestinal: Yes (GASTROPARESIS;ESOPHAGEAL STRICTURES) Abdominal Hernia, Gastroesophageal Reflux, Chronic Constipation, Diverticulosis, Pancreatitis, Polyps, Esophagitis, Hiatal Hernia, Gall Bladder Disease Musculoskeletal: Yes (OLECRANON BURSITIS, CHRONIC NECK PAIN, DISH SYNDROME;BILAT TKR) Degenerate Disk Disease, Arthritis, Chronic Back Pain Endocrine: Yes Diabetes, Insulin dep HEENT: Yes Cataract Loss of Vision: Denies Hearing Impairment: Denies Cancer: No Psychosocial: Yes Anxiety, Depression Integumentary: No Blood Disorders: No Adverse Reaction/Blood Tranf: No (N/A) Family Medical History Cancer G8 BROTHER Cataract 19 FATHER 19 MOTHER G8 BROTHER G8 BROTHER G8 SISTER Congestive heart failure 19 FATHER 19 MOTHER Family history: Arthritis 19 FATHER 19 MOTHER G8 BROTHER G8 BROTHER G8 SISTER G8 SISTER DAUGHTER SON Family history: Breast disease DAUGHTER Family history: Cardiovascular disease 19 FATHER Family history: Diabetes mellitus 19 FATHER G8 BROTHER G8 SISTER Family history: Hypertension 19 FATHER 19 MOTHER G8 BROTHER G8 BROTHER G8 SISTER G8 SISTER DAUGHTER SON Family history: Thyroid disorder DAUGHTER Heart disease 19 FATHER 19 MOTHER G8 BROTHER Hypercholesterolemia 19 FATHER 19 MOTHER G8 BROTHER G8 BROTHER G8 SISTER Myocardial infarction 19 FATHER 19 MOTHER G8 BROTHER No Family History of: Abdominal aortic aneurysm Robel's disease Alcoholism Aphasia Cancer of colon Chest pain Congenital heart disease Cystic fibrosis Dementia Dysphagia Family history: Allergy Family history: Alzheimer's disease Family history: Asthma Family history: Coronary thrombosis Family history: Gastrointestinal disease Family history: Glaucoma Family history: Osteoporosis Headache Hearing loss Hereditary disease History of - anemia History of - disorder History of - respiratory disease History of drug abuse Human immunodeficiency virus (HIV) seropositivity Infertile Kidney disease Malignant neoplasm of lung Parkinson's disease Prostate cancer Psychotic disorder Seizure disorder Stroke Tuberculosis Visual impairment CAD Over 55 Years Old PAST SURGICAL HISTORY: -CARDIAC CATHS--STENTS IN HEART AND IN LEGS. LAST CARDIAC CATH 03/03/20--PATENT STENTS/GRAFTS, NO INTERVENTION -CABG -LINQ DEVICE IMPLANTED -LUMBAR LAMINECTOMY -BILATERAL TOTAL KNEE REPLACEMENTS -EGD'S WITH DILATIONS--LAST ONE 10/2019. -HIATAL HERNIA REPAIR/MAURISIO FUNDOPLICATION 2004 - Physical Exam Vital Signs Vital Signs - First Documented 01/29/21 20:53 Temp 36.3 Pulse 141 Resp 16 B/P (MAP) 142/105 (117) Pulse Ox 98 O2 Delivery Room Air Capillary Refill : Less Than 3 Seconds Height, Weight, BMI Height: 6'0" Weight: 180lbs. 4.0oz. [id number]; 25.00 BMI Method:Stated General Appearance: No Apparent Distress, WD/WN, Other (UNKEMPT) Respiratory: Normal Breath Sounds, No Accessory Muscle Use, No Respiratory Distress Cardiovascular: No JVD, No Murmur, Normal Peripheral Pulses, Irregularly Irregular, Tachycardia Gastrointestinal: Non Tender, Soft Extremity: Normal Inspection, Non Tender, No Pedal Edema Neurologic/Psychiatric: Alert, Oriented x3, No Motor/Sensory Deficits, Normal Mood/Affect, bean sprout grower II-XII Norm as Tested Skin: Normal Color, Warm/Dry Progress/Results/Core Measures Results/Orders Lab Results Laboratory Tests Test 01/29/21 20:55 01/29/21 21:46 01/29/21 22:20 01/29/21 23:50 Range/Units White Blood Count 7.0 4.3-11.0 10^3/uL Red Blood Count 4.66 4.30-5.52 10^6/uL Hemoglobin 14.0 13.3-17.7 g/dL Hematocrit 43 40-54 % Mean Corpuscular Volume 91 80-99 fL Mean Corpuscular Hemoglobin 30 25-34 pg Mean Corpuscular Hemoglobin Concent 33 32-36 g/dL Red Cell Distribution Width 13.4 10.0-14.5 % Platelet Count 294 130-400 10^3/uL Mean Platelet Volume 10.6 9.0-12.2 fL Immature Granulocyte % (Auto) 0 % Neutrophils (%) (Auto) 62 42-75 % Lymphocytes (%) (Auto) 30 12-44 % Monocytes (%) (Auto) 6 0-12 % Eosinophils (%) (Auto) 2 0-10 % Basophils (%) (Auto) 1 0-10 % Neutrophils # (Auto) 4.4 1.8-7.8 10^3/uL Lymphocytes # (Auto) 2.1 1.0-4.0 10^3/uL Monocytes # (Auto) 0.4 0.0-1.0 10^3/uL Eosinophils # (Auto) 0.1 0.0-0.3 10^3/uL Basophils # (Auto) 0.1 0.0-0.1 10^3/uL Immature Granulocyte # (Auto) 0.0 0.0-0.1 10^3/uL Prothrombin Time 15.3 H 12.2-14.7 SEC INR Comment 1.2 0.8-1.4 Activated Partial Thromboplast Time 29 24-35 SEC Sodium Level 139 144 135-145 MMOL/L Potassium Level 4.4 4.0 3.6-5.0 MMOL/L Chloride Level 107 112 H 98-107 MMOL/L Carbon Dioxide Level 20 L 21 21-32 MMOL/L Anion Gap 12 11 5-14 MMOL/L Blood Urea Nitrogen 14 12 7-18 MG/DL Creatinine 1.71 H 1.31 H 0.60-1.30 MG/DL Estimat Glomerular Filtration Rate 39 53 BUN/Creatinine Ratio 8 9 Glucose Level 463 *H 68 L 70-105 MG/DL Calcium Level 9.7 9.6 8.5-10.1 MG/DL Corrected Calcium 9.9 8.5-10.1 MG/DL Magnesium Level 1.8 1.9 1.6-2.4 MG/DL Total Bilirubin 0.3 0.1-1.0 MG/DL Aspartate Amino Transf (AST/SGOT) 15 5-34 U/L Alanine Aminotransferase (ALT/SGPT) 15 0-55 U/L Alkaline Phosphatase 65 40-136 U/L Total Creatine Kinase 94 30-200 U/L Creatine Kinase MB 1.7 <6.6 NG/ML Troponin I < 0.028 < 0.028 <0.028 NG/ML B-Type Natriuretic Peptide 224.9 H <100.0 PG/ML Total Protein 6.9 6.4-8.2 GM/DL Albumin 3.8 3.2-4.5 GM/DL Beta-Hydroxybutyrate (Chem panel) 0.12 0.00-0.27 MMOL/L TSH [place] Testing 2.34 0.35-4.94 UIU/ML Digoxin Level 0.47 L 1.58 0.80-2.00 NG/ML Urine Color YELLOW Urine Clarity CLEAR Urine pH 6.5 5-9 Urine Specific [place] 1.015 L 1.016-1.022 Urine Protein NEGATIVE NEGATIVE Urine Glucose (UA) 3+ H NEGATIVE Urine Ketones NEGATIVE NEGATIVE Urine Nitrite NEGATIVE NEGATIVE Urine Bilirubin NEGATIVE NEGATIVE Urine Urobilinogen 0.2 < = 1.0 MG/DL Urine Leukocyte Esterase NEGATIVE NEGATIVE Urine RBC (Auto) NEGATIVE NEGATIVE Urine RBC NONE /HPF Urine WBC NONE /HPF Urine Squamous Epithelial Cells NONE /HPF Urine Crystals NONE /LPF Urine Bacteria NEGATIVE /HPF Urine Casts PRESENT /LPF Urine Hyaline Casts RARE /LPF Urine Mucus NEGATIVE /LPF Urine Culture Indicated NO Glucometer 247 H 70-110 MG/DL Test 01/30/21 01:12 Range/Units Glucometer 112 H 70-110 MG/DL My Orders Orders - ROMAIN KNIGHT DO Ed Iv/Invasive Line Start (01/29/21 20:53) Ekg Tracing (01/29/21 20:53) Monitor-Rhythm Ecg Trace Only (01/29/21 20:53) Diltiazem Injection (Cardizem Injection) (01/29/21 21:00) Diltiazem Drip Pre-Mix (Cardizem Drip Pr (01/29/21 21:00) BNP (01/29/21 20:59) Cbc With Automated Diff (01/29/21:59) Comprehensive Metabolic Panel (01/29/21 20:59) Creatine Kinase (01/29/21 20:59) Creatine Kinase Mb (01/29/21 20:59) Magnesium (01/29/21:59) Protime With Inr (01/29/21:59) Partial Thromboplastin Time (01/29/21 20:59) Thyroid Analyzer (01/29/21 20:59) Troponin I (01/29/21 20:59) Ed Iv/Invasive Line Start (01/29/21 20:59) Ed Iv/Invasive Line Start (01/29/21 20:59) Ns Iv 1000 Ml (Sodium Chloride 0.9%) (01/29/21 21:00) Ns Iv 1000 Ml (Sodium Chloride 0.9%) (01/29/21 21:00) Diltiazem Drip Pre-Mix (Cardizem Drip Pr (01/29/21 21:00) Diltiazem Injection (Cardizem Injection) (01/29/21 21:00) Digoxin (01/29/21 21:05) Chest 1 View, Ap/Pa Only (01/29/21 21:06) Ekg Tracing (01/29/21 21:10) Enoxaparin Injection (Lovenox Injection) (01/29/21 21:15) Enoxaparin Injection (Lovenox Injection) (01/29/21 21:12) Insulin (Regular) Human (Novolin R (Per (01/29/21 21:30) Beta Hydroxybutyrate (01/29/21 21:29) Ua Culture If Indicated (01/29/21 21:29) Ed Iv/Invasive Line Start (01/29/21 21:32) Ns Iv 1000 Ml (Sodium Chloride 0.9%) (01/29/21 21:45) Digoxin Injection (Lanoxin Injection) (01/29/21 21:45) Accucheck Stat ONCE (01/29/21 22:12) Ekg Tracing (01/29/21 23:45) Basic Metabolic Panel (01/29/21 23:45) Digoxin (01/29/21 23:45) Troponin I (01/29/21 23:45) Magnesium (01/29/21 23:45) Ekg Tracing (01/29/21 23:58) Diltiazem Cd 24 Hr Capsule (Cardizem Cd (01/30/21 00:15) D50w (Emergency) Syringe (Dextrose 50% 5 (01/30/21 00:15) Accucheck Stat ONCE (01/30/21 01:01) Medications Given in ED Current Medications Medications Dose Ordered Sig/Alka Route Start Time Stop Time Status Last Admin Dose Admin Dextrose 25 ml ONCE ONCE IV 01/30/21 00:15 01/30/21 00:16 DC 01/30/21 00:26 25 ML Digoxin 0.5 mg ONCE ONCE IV 01/29/21 21:45 01/29/21 21:46 DC 01/29/21 21:45 0.5 MG Diltiazem HCl 20 mg ONCE ONCE IVP 01/29/21 21:00 01/29/21 21:01 DC 01/29/21 21:03 20 MG Diltiazem HCl 240 mg ONCE ONCE PO 01/30/21 00:15 01/30/21 00:16 DC 01/30/21 00:26 240 MG Enoxaparin Sodium 100 mg ONCE ONCE SC 01/29/21 21:15 01/29/21 21:16 DC 01/29/21 21:13 100 MG Insulin Human Regular 15 unit ONCE ONCE IV 01/29/21 21:30 01/29/21 21:31 DC 01/29/21 21:36 15 UNIT Vital Signs/I&O 01/29/21 01/30/21 20:53 02:03 Temp 36.3 36.3 Pulse 141 58 Resp 16 16 B/P (MAP) 142/105 (117) 131/78 Pulse Ox 98 98 O2 Delivery Room Air Room Air 01/30/21 00:00 Intake Total 1000 ml Balance 1000 ml Blood Pressure Mean: 117 Progress Progress Note : Progress Note PT NOTED TO BE IN ATRIAL FIB/FLUTTER ON ARRIVAL WITH HR IN 140'S, BP 140'S/100'S GIVEN CARDIZEM BOLUS AND PLACED ON A DRIP--RATE DOWN TO 90'S, BUT HAS PERSISTENT ATRIAL FLUTTER GAVE DOSE OF DIGOXIN AND PT NOW IN ATRIAL FIBRILLATION, WITH RATE IN 80'S BP REMAINS STABLE AT 120'S/70'S GIVEN LOVENOX HE HAS NOT HAD HIS PM DOSE OF ELIQUIS TODAY GAVE IV FLUIDS / SALINE AND REGULAR INSULIN 15 UNITS FOR BLOOD GLUCOSE OF 463 REPEAT BLOOD GLUCOSE 247 AT 2220 REPEAT BLOOD GLUCOSE DRAWN AT 2350--68; 1/2 AMP D50 GIVEN TO PT REPEAT GLUCOSE 112 AT 0112 THERE ARE NO BEDS AVAILABLE HERE, WILL MONITOR/OBSERVE IN ER, PT HAS CONVERTED WITH THE ABOVE MEASURES IN THE PAST, INCLUDING ON HIS ADMIT 01/13/21 2357--PT CONVERTED TO NORMAL SINUS RHYTHM PT GIVEN PO CARDIZEM AND WEANED OFF CARDIZEM DRIP. PT REMAINED IN SINUS RHYTHM AFTER CARDIZEM DRIP WAS STOPPED. REPEAT LAB DONE CREATININE DOWN, GLUCOSE DOWN, TROPONIN UNCHANGED/NEGATIVE, DIGOXIN UP TO THERAPEUTIC LEVEL. PT HAD NO COMPLAINTS DURING ENTIRE ER STAY HR IN 60'S, BP 130/70, O2 SATS IN UPPER 90'S ON ROOM AIR AT DISMISSAL PT IS ASYMPTOMATIC AT DISMISSAL, AND FEELS COMFORTABLE GOING HOME. Initial ECG Impression Date: Jan 29, 2021 Initial ECG Impression Time: 20:55 Initial ECG Rate: 136 Initial ECG Rhythm: A Fib/Flutter (ATRIAL FLUTTER) Initial ECG Impression: Nonspecific Changes EKG : EKG Time: 21:07 Rate: 98 Rhythm: A Fib/Flutter (ATRIAL FLUTTER) Comment EKG #3 AT 2348, RATE 79, ATRIAL FIBRILLATION, NO ACUTE CHANGES. EKG #4 AT 0000--RATE 65, NSR, NO ST SEGMENT ABNORMALITIES. Diagnostic Imaging Comments CXR--NO ACUTE PROCESS, PER RADIOLOGIST REPORT AT 2137 Reviewed: Reviewed by Me Departure Communication (Admissions) 2199/2204--DISCUSSED WITH TRANSLATION DIRECTOR AND DR. PETERSON---NO BEDS AVAILABLE HERE OR AT [facility]. Impression Primary Impression: CHRONIC PAROXYSMAL ATRIAL FIBRILLATION/ATRIAL FLUTTER WITH RVR Additional Impressions: Diabetes mellitus, insulin dependent (IDDM), uncontrolled HX OF CAD WITH CABG AND STENT HX OF PAD WITH STENT HTN (hypertension) SUBTHERAPEUTIC DIGOXIN LEVEL Non-compliance Disposition: HOME, SELF-CARE Condition: Improved Departure-Patient Inst. Decision time for Depature: 02:00 Referrals: ISRAEL AVALOS MD (PCP) Primary Care Physician BISI GARCIA MD Patient Instructions: Atrial Fibrillation (DC), Diabetes and Diet, How to Prevent High Blood Sugar Emergencies in Diabetes Add. Discharge Instructions: TAKE ALL OF YOUR MEDICATIONS EXACTLY PRESCRIBED--DO NOT MISS ANY DOSES OF YOUR MEDICATIONS CHECK YOUR BLOOD SUGAR AT LEAST 4 TIMES A DAY--BEFORE EACH MEAL AND AT BEDTIME FOLLOW UP WITH DR. GARCIA ON SUNDAY--CALL FIRST THING SUNDAY MORNING TO SCHEDULE APPOINTMENT RETURN TO ER IF SYMPTOMS RETURN OR WORSEN All discharge instructions reviewed with patient and/or family. Voiced understanding. ROMAIN KNIGHT DO Jan 29, 2021 21:29
[2021-01-29] MEDS ORDERED: inSUlin (REGULAR) HUMAN 1 UNIT/0.01 ML (CHARGE PER UNIT) IV ONE (21:30)
--- NOTE | 2021-01-29 21:36 | Diagnostic Imaging Report ---
INDICATION: Cardiac dysrhythmia. EXAMINATION: AP view of the chest was obtained. COMPARISON: Study of 01/13/2021. FINDINGS: Heart size and pulmonary vascularity are within normal limits. There is air trapping, bilaterally. Surgical findings are noted in the mediastinum. No pneumothorax, consolidation or significant pleural fluid is identified. IMPRESSION: Background emphysema without evidence of acute abnormality. Dictated by: Dictated on workstation # [id number]
[2021-01-29 21:45] LABS: CREATINE KINASE MB 1.7 NG/ML (<6.6); TSH (THYROID ANALYZER) 2.34 UIU/ML (0.35-4.94)
[2021-01-29] MEDS ORDERED: DIGOXIN 0.25 MG/ML (LANOXIN) 2 ML AMP IV ONE (21:45)
[2021-01-29 21:53] LABS: BILIRUBIN,URINE NEGATIVE (NEGATIVE); CLARITY,URINE CLEAR; COLOR,URINE YELLOW; GLUCOSE, URINE (UA) 3+ (NEGATIVE); KETONES,URINE NEGATIVE (NEGATIVE); LEUKOCYTE ESTERASE ,URINE NEGATIVE (NEGATIVE); NITRITE,URINE NEGATIVE (NEGATIVE); PH,URINE 6.5 (5-9); PROTEIN,URINE NEGATIVE (NEGATIVE)
[2021-01-29 22:00] LABS: BACTERIA,URINE NEGATIVE /HPF; HYALINE CASTS, URINE RARE /LPF
[2021-01-30 00:10] LABS: CHLORIDE 112 MMOL/L (98-107); SODIUM 144 MMOL/L (135-145)
[2021-01-30 00:11] LABS: CALCIUM 9.6 MG/DL (8.5-10.1)
[2021-01-30 00:12] LABS: GLUCOSE 68 MG/DL (70-105)
[2021-01-30 00:13] LABS: CARBON DIOXIDE 21 MMOL/L (21-32)
[2021-01-30 00:15] LABS: CREATININE SERUM 1.31 MG/DL (0.60-1.30); GFR ESTIMATED 53
[2021-01-30] MEDS ORDERED: DEXTROSE 50% 50 ML (IMS) SYR IV ONE (00:15)
[2021-01-30 00:16] LABS: BUN/CREATININE RATIO 9
[2021-01-30 00:18] LABS: MAGNESIUM 1.9 MG/DL (1.6-2.4)
[2021-01-30 02:03] VITALS: BP 131/78
== END 2021-01-30 02:06 | disposition home or self-care (01) ==
LOC: EDUNIT# 20:45 → ER 20:49
DX: I48.0 Paroxysmal atrial fibrillation (principal); I48.92 Unspecified atrial flutter; E11.9 Type 2 diabetes mellitus without complications; I10 Essential (primary) hypertension; R79.1 Abnormal coagulation profile; I25.10 Atherosclerotic heart disease of native coronary artery without angina pectoris; I73.9 Peripheral vascular disease, unspecified; I25.2 Old myocardial infarction; E78.00 Pure hypercholesterolemia, unspecified; N40.0 Benign prostatic hyperplasia without lower urinary tract symptoms; F41.9 Anxiety disorder, unspecified; F32.9 Major depressive disorder, single episode, unspecified; Z87.891 Personal history of nicotine dependence; Z95.1 Presence of aortocoronary bypass graft; Z95.5 Presence of coronary angioplasty implant and graft; Z91.19 Patient's noncompliance with other medical treatment and regimen; Z79.01 Long term (current) use of anticoagulants; Z79.4 Long term (current) use of insulin; Z79.899 Other long term (current) drug therapy
CPT/HCPCS: 36415; 71045; 80048; 80053; 80162; 81000; 82010; 82550; 82553; 82947; 83735; 83880; 84443; 84484; 85025; 85610; 85730; 93005; 93041

== ENCOUNTER 2022-02-26 16:26 | Emergency (ER) | payer MEDICARE, MEDICAID ==
[~2022-02-26] VITALS: Ht 182.8 cm; Wt 80.0 kg
[~2022-02-26 16:26] MED LIST changes: -AMIO200T6 PO; +AMIO200T65 PO; +CYCL10TA25 PO; -CYCL10TA9 PO; -DOXY100C2; +DOXY100C5; +FENO134C21 PO; +MONT-40 PO; -MONT10TA32 PO
[2022-02-26 17:54] LABS: BILIRUBIN,URINE NEGATIVE (NEGATIVE); CLARITY,URINE CLEAR; COLOR,URINE YELLOW; GLUCOSE, URINE (UA) TRACE (NEGATIVE); KETONES,URINE NEGATIVE (NEGATIVE); LEUKOCYTE ESTERASE ,URINE 1+ (NEGATIVE); NITRITE,URINE NEGATIVE (NEGATIVE); PROTEIN,URINE NEGATIVE (NEGATIVE)
[2022-02-26 17:54] LABS: ALBUMIN 3.8 GM/DL (3.2-4.5); CHLORIDE 107 MMOL/L (98-107); POTASSIUM 4.3 MMOL/L (3.6-5.0); SODIUM 138 MMOL/L (135-145)
[2022-02-26 17:56] LABS: CALCIUM 9.4 MG/DL (8.5-10.1)
[2022-02-26 17:57] LABS: BASOPHILS # (AUTO) 0.1 10^3/uL (0.0-0.1); BASOPHILS % (AUTO) 1 % (0-10); EOSINOPHILS # (AUTO) 0.1 10^3/uL (0.0-0.3); EOSINOPHILS % (AUTO) 2 % (0-10); GLUCOSE 211 MG/DL (70-105); HEMATOCRIT 45 % (40-54); HEMOGLOBIN 14.8 g/dL (13.3-17.7); LYMPHOCYTES # (AUTO) 1.8 10^3/uL (1.0-4.0); LYMPHOCYTES % (AUTO) 23 % (12-44); MEAN CORPUSCULAR HEMOGLOBIN 29 pg (25-34); MEAN CORPUSCULAR HGB CONC 33 g/dL (32-36); MEAN CORPUSCULAR VOLUME 88 fL (80-99); MEAN PLATELET VOLUME 10.7 fL (9.0-12.2); MONOCYTES # (AUTO) 0.6 10^3/uL (0.0-1.0); MONOCYTES % (AUTO) 8 % (0-12); NEUTROPHILS # (AUTO) 5.1 10^3/uL (1.8-7.8); NEUTROPHILS % (AUTO) 67 % (42-75); PLATELET COUNT 276 10^3/uL (130-400); TOTAL PROTEIN 6.7 GM/DL (6.4-8.2); WHITE BLOOD COUNT 7.7 10^3/uL (4.3-11.0)
[2022-02-26 17:58] LABS: CARBON DIOXIDE 19 MMOL/L (21-32)
[2022-02-26 17:59] LABS: BILIRUBIN,TOTAL 0.4 MG/DL (0.1-1.0)
[2022-02-26 18:00] LABS: ALKALINE PHOSPHATASE 79 U/L (40-136); CREATININE SERUM 1.32 MG/DL (0.60-1.30); GFR ESTIMATED 55
[2022-02-26 18:01] LABS: BUN/CREATININE RATIO 9
[2022-02-26 18:03] LABS: ALANINE AMINOTRANSFERASE 12 U/L (0-55)
[2022-02-26 18:04] LABS: BACTERIA,URINE NEGATIVE /HPF; SQUAMOUS EPITHELIAL CELL,UR 0-2 /HPF; WBC,URINE 0-2 /HPF
[2022-02-26 18:08] LABS: FIBRIN DEGRADATION PRODUCTS 0.39 UG/ML (0.00-0.49); INR 1.3 (0.8-1.4); PROTHROMBIN TIME PATIENT 16.8 SEC (12.2-14.7)
--- NOTE | 2022-02-26 18:11 | ED Neurological Problem ---
General Chief Complaint: Neuro-Stroke Like Symptoms Stated Complaint: L ARM NUMBNESS Nursing Triage Note: ems called for transport to ED d/t left hand numbness, last night whole arm since 0200 am. family stated to ems he was just not acting himself. Dizziness also reported today. states he is having some shortness of breath different than usual. Source: patient Exam Limitations: no limitations (RODOLFO CUELLO MD) History of Present Illness Date Seen by Provider: Feb 26, 2022 Time Seen by Provider: 17:26 Initial Comments This 81-year-old gentleman presents to the emergency room with complaints of neurologic symptoms that started last night. He complains of upper and lower bilateral lip numbness, left hand numbness and weakness, left arm numbness and weakness, left leg weakness, some "wavy" vision, and some wobbly ambulation. Last known well time was when he came in from working in the yard yesterday evening at 1700. He reports his blood sugars have been high recently. He reported a left-sided visual field deficit, but that was not appreciated on exam. Patient denies any history of prior CVA. (RODOLFO CUELLO MD) Allergies and Home Medications Allergies Coded Allergies: celecoxib (Unverified Allergy, Mild, TAKES ASPIRIN AT HOME, 01/28/19) diclofenac (Unverified Allergy, Mild, TAKES ASPIRIN AT HOME, 01/28/19) naproxen (Unverified Allergy, Mild, TAKES ASPIRIN AT HOME, 01/28/19) rosuvastatin (Unverified Allergy, Mild, 01/28/19) Penicillins (Verified Allergy, Unknown, 01/28/19) amoxicillin (Verified Allergy, Unknown, 01/28/19) fenofibrate (Unverified Allergy, Unknown, 01/28/19) gemfibrozil (Unverified Allergy, Unknown, 10/15/19) simvastatin (Unverified Allergy, Unknown, 01/28/19) Patient Home Medication List Home Medication List Reviewed: Yes (RODOLFO CUELLO MD) Apixaban (Eliquis) 5 Mg Tablet, 5 MG PO BID, (Reported) Entered as Reported by: CASTRO BURLESON on 07/23/16 6032 Cholecalciferol (Vitamin D3) (Vitamin D3) 50 Mcg Capsule, 50 MCG PO DAILY, (Reported) Entered as Reported by: JHON PAZ on 01/14/21 09 Citalopram Hydrobromide (Citalopram HBr) 20 Mg Tablet, 20 MG PO DAILY, (Reported) Entered as Reported by: JHON PAZ on 01/14/21 09 Clonidine HCl (Clonidine HCl) 0.1 Mg Tablet, 0.1 MG PO DAILY, (Reported) Entered as Reported by: JHON PAZ on 01/14/21 09 Digoxin (Digoxin) 125 Mcg Tablet, 125 MCG PO DAILY, (Reported) Entered as Reported by: DANYA LIM on 03/01/16 0925 Diltiazem HCl (Cartia Xt) 240 Mg Cap.er.24h, 240 MG PO DAILY Prescribed by: GURDEEP LOPEZ on 01/14/21 1038 Fenofibric Acid (Choline) (Fenofibric Acid) 135 Mg Capsule.dr, 135 MG PO DAILY, (Reported) Entered as Reported by: JHON PAZ on 01/14/21 09 Gabapentin (Neurontin) 300 Mg Capsule, 300 MG PO TID, (Reported) Entered as Reported by: ARTIS GONSALES on 10/09/19 1536 Glipizide (Glipizide) 10 Mg Tablet, 10 MG PO DAILY, (Reported) Entered as Reported by: ARTIS GONSALES on 10/09/19 1537 Insulin Detemir (Levemir Flextouch) 100 Unit/1 Ml Insuln.pen, 35 UNITS SQ BID, (Reported) Entered as Reported by: CASTRO BURLESON on 12/21/14 0459 Lorazepam (Ativan) 1 Mg Tablet, 1 MG PO TID PRN for ANXIETY, (Reported) Entered as Reported by: JHON PAZ on 01/14/21 09 Nitroglycerin (Nitrostat) 0.4 Mg Tab.subl, 0.4 MG SL UD PRN for CHEST PAIN, (Reported) Entered as Reported by: ADIA GOTTLIEB on 03/22/16 0830 Pentoxifylline (Pentoxifylline) 400 Mg Tablet.er, 400 MG PO TID, (Reported) Entered as Reported by: DANYA LIM on 05/31/16 1333 Tamsulosin HCl (Flomax) 0.4 Mg Cap, 0.4 MG PO DAILY, (Reported) Entered as Reported by: GEOVANY PEDROZA on 01/28/19 3783 Review of Systems Review of Systems Constitutional: no symptoms reported Eyes: See HPI Ears, Nose, Mouth, Throat: no symptoms reported Respiratory: no symptoms reported Cardiovascular: no symptoms reported Gastrointestinal: no symptoms reported Genitourinary: no symptoms reported Musculoskeletal: no symptoms reported Skin: no symptoms reported Psychiatric/Neurological: See HPI Endocrine: No Symptoms Reported (RODOLFO CUELLO MD) Past Fyikqpo-Cdcqmv-Ucicmh Hx Patient Social History Tobacco Use?: No Use of E-Cig and/or Vaping dev: No Substance use?: No Alcohol Use?: No Pt feels they are or have been: No (RODOLFO CUELLO MD) Immunizations Up To Date Tetanus Booster (TDap): Less than 5yrs PED Vaccines UTD: No Influenza Vaccine Up-to-Date: No; Not Current First/Initial COVID19 Vaccinat: 2020 (RODOLFO CUELLO MD) Seasonal Allergies Seasonal Allergies: No (RODOLFO CUELLO MD) Past Medical History Surgery/Hospitalization HX: CARDIAC CATHS-WITH STENT PLACEMENT--LAST CATH 03/03/[address] GARCIA: CONCLUSION: 1. Severe [place] coronary artery disease corrected with the patent 4 bypass grafts. 2. Patent stent in the proximal vein graft to the obtuse marginal branch with good flow distally 3. Patent vein graft to the diagonal artery, vein graft to the right coronary artery and AMANDA to LAD with excellent flow distally 4. Normal left ventricular size and systolic function estimated ejection fraction 60 percent DISCUSSION AND RECOMMENDATION: Medical therapy is recommended no intervention is needed CABG X 4 VESSEL LINQ DEVICE PLACED PERIPHERAL CATHS WITH STENTS IN LEGS BILATERAL TOTAL KNEE REPLACEMENTS LUMBAR LAMINECTOMY CHOLESYCTECTOMY CATARACT SURGERY EGD'S WITH ESOPHAGEAL DILATIONS--LAST ONE 10/[address] CESIA BURTON MAURISIO FUNDOPLICATION/HIATAL HERNIA REPAIR 2004 CAD,HTN,COPD, TIA, BPH, RENAL INSUFF, IDDM, ARTHRITIS, ANX. LONG HISTORY OF NON-COMPLIANCE Surgeries: Yes (CORONARY BYPASS X4;LINQ; BILAT TKR;STENTS IN LEGS;LUMBAR LAMINECTOMY) Abdominal, Angioplasty, Cardiac, CABG, Coronary Stent, Eye Surgery, Gallbladder, Joint Replacement, Open Heart Surgery, Orthopedic, Vascular Surgery Respiratory: Yes (CHRONIC DYSPNEA ON EXERTION) Sleep Apnea, COPD Currently Using CPAP: No Currently Using BIPAP: No Cardiac: Yes (LINQ DEVICE IN PLACE; S/P CABG; CARDIAC AND LEG STENTS;AFIB/FLUTTER) Atrial Fibrillation, Chronic Edema/Swelling, Coronary Artery Disease, Heart Attack, High Cholesterol, Hypertension, Peripheral Vascular Neurological: Yes (POSSIBLE STROKE/ TIA) Neuropathy, Stroke, TIA Reproductive Disorders: No Sexually Transmitted Disease: No HIV/AIDS: No Genitourinary: Yes (RENAL INSUFFICIENCY-NO DIALYSIS) Benign Prostatic Hyperpl, Prostate Problems, Renal Failure Gastrointestinal: Yes (GASTROPARESIS;ESOPHAGEAL STRICTURES) Abdominal Hernia, Gastroesophageal Reflux, Chronic Constipation, Diverticulosis, Pancreatitis, Polyps, Esophagitis, Hiatal Hernia, Gall Bladder Disease Musculoskeletal: Yes (OLECRANON BURSITIS, CHRONIC NECK PAIN, DISH SYNDROME;BILAT TKR) Degenerate Disk Disease, Arthritis, Chronic Back Pain Endocrine: Yes Diabetes, Insulin dep HEENT: Yes Cataract Loss of Vision: Denies Hearing Impairment: Denies Cancer: No Psychosocial: Yes Anxiety, Depression Integumentary: No Blood Disorders: No Adverse Reaction/Blood Tranf: No (N/A) (RODOLFO CUELLO MD) Family Medical History Cancer G8 BROTHER Cataract 19 FATHER 19 MOTHER G8 BROTHER G8 BROTHER G8 SISTER Congestive heart failure 19 FATHER 19 MOTHER Family history: Arthritis 19 FATHER 19 MOTHER G8 BROTHER G8 BROTHER G8 SISTER G8 SISTER DAUGHTER SON Family history: Breast disease DAUGHTER Family history: Cardiovascular disease 19 FATHER Family history: Diabetes mellitus 19 FATHER G8 BROTHER G8 SISTER Family history: Hypertension 19 FATHER 19 MOTHER G8 BROTHER G8 BROTHER G8 SISTER G8 SISTER DAUGHTER SON Family history: Thyroid disorder DAUGHTER Heart disease 19 FATHER 19 MOTHER G8 BROTHER Hypercholesterolemia 19 FATHER 19 MOTHER G8 BROTHER G8 BROTHER G8 SISTER Myocardial infarction 19 FATHER 19 MOTHER G8 BROTHER No Family History of: Abdominal aortic aneurysm [place]'s disease Alcoholism Aphasia Cancer of colon Chest pain Congenital heart disease Cystic fibrosis Dementia Dysphagia Family history: Allergy Family history: Alzheimer's disease Family history: Asthma Family history: Coronary thrombosis Family history: Gastrointestinal disease Family history: Glaucoma Family history: Osteoporosis Headache Hearing loss Hereditary disease History of - anemia History of - disorder History of - respiratory disease History of drug abuse Human immunodeficiency virus (HIV) seropositivity Infertile Kidney disease Malignant neoplasm of lung Parkinson's disease Prostate cancer Psychotic disorder Seizure disorder Stroke Tuberculosis Visual impairment CAD Over 55 Years Old PAST SURGICAL HISTORY: -CARDIAC CATHS--STENTS IN HEART AND IN LEGS. LAST CARDIAC CATH 03/03/20--PATENT STENTS/GRAFTS, NO INTERVENTION -CABG -LINQ DEVICE IMPLANTED -LUMBAR LAMINECTOMY -BILATERAL TOTAL KNEE REPLACEMENTS -EGD'S WITH DILATIONS--LAST ONE 10/2019. -HIATAL HERNIA REPAIR/MAURISIO FUNDOPLICATION 2004 - (RODOLFO CUELLO MD) Physical Exam Vital Signs Vital Signs - First Documented 02/26/22 16:29 Temp 36.2 Pulse 79 Resp 20 B/P (MAP) 140/85 (103) Pulse Ox 97 O2 Delivery Room Air (EUGENE,ROMAIN K DO) Vital Signs Capillary Refill : Less Than 3 Seconds (RODOLFO CUELLO MD) Height, Weight, BMI Height: 6'0" Weight: 180lbs. 4.0oz. 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, alert, normal mood/affect, oriented x 3, motor weakness (Left arm and leg) Crainal Nerves: normal hearing, PERRL, abnormal speech (Deficit of reading only) Coordination/Gait: ABN nose to finger (L) Motor/Sensory: no sensory deficit, weak motor strength LUE, weak motor strength LLE Skin: normal color, warm/dry (RODOLFO CUELLO MD) Stroke NIH Stroke Scale Assessment Level of Consciousness: 0=Alert (0), Level of Consciousness-Questions: 0=Answers both month/age (0), LOC Commands: 0=Performs both tasks (0), Visual Barrios: 0=No visual loss (0), Facial Movement (Facial Paresis): 0=Normal symmetrical mnt (0), Motor Function-Arms Right: 0=No drift (0), Motor Function-Arms Left: 1=Drift (1), Motor Function-Legs Right: 0=No drift (0), Motor Function-Legs Left: 1=Drift (1), Limb Ataxia: 1=Present in one limb (1), Sensory: 0=Normal:no loss (0), Best Language: 1=Mild to moderat aphasia (1), Dysarthria: 0=Normal (0), Extinction & Inattention: 0=No abnormality (0), Total: 4 Progress/Results/Core Measures Results/Orders Lab Results Laboratory Tests Test 02/26/22 16:30 02/26/22 17:27 Range/Units White Blood Count 7.7 4.3-11.0 10^3/uL Red Blood Count 5.14 4.30-5.52 10^6/uL Hemoglobin 14.8 13.3-17.7 g/dL Hematocrit 45 40-54 % Mean Corpuscular Volume 88 80-99 fL Mean Corpuscular Hemoglobin 29 25-34 pg Mean Corpuscular Hemoglobin Concent 33 32-36 g/dL Red Cell Distribution Width 13.5 10.0-14.5 % Platelet Count 276 130-400 10^3/uL Mean Platelet Volume 10.7 9.0-12.2 fL Immature Granulocyte % (Auto) 0 % Neutrophils (%) (Auto) 67 42-75 % Lymphocytes (%) (Auto) 23 12-44 % Monocytes (%) (Auto) 8 0-12 % Eosinophils (%) (Auto) 2 0-10 % Basophils (%) (Auto) 1 0-10 % Neutrophils # (Auto) 5.1 1.8-7.8 10^3/uL Lymphocytes # (Auto) 1.8 1.0-4.0 10^3/uL Monocytes # (Auto) 0.6 0.0-1.0 10^3/uL Eosinophils # (Auto) 0.1 0.0-0.3 10^3/uL Basophils # (Auto) 0.1 0.0-0.1 10^3/uL Immature Granulocyte # (Auto) 0.0 0.0-0.1 10^3/uL Prothrombin Time 16.8 H 12.2-14.7 SEC INR Comment 1.3 0.8-1.4 Activated Partial Thromboplast Time 33 24-35 SEC D-Dimer 0.39 0.00-0.49 UG/ML Sodium Level 138 135-145 MMOL/L Potassium Level 4.3 3.6-5.0 MMOL/L Chloride Level 107 98-107 MMOL/L Carbon Dioxide Level 19 L 21-32 MMOL/L Anion Gap 12 5-14 MMOL/L Blood Urea Nitrogen 12 7-18 MG/DL Creatinine 1.32 H 0.60-1.30 MG/DL Estimat Glomerular Filtration Rate 55 BUN/Creatinine Ratio 9 Glucose Level 211 H 70-105 MG/DL Calcium Level 9.4 8.5-10.1 MG/DL Corrected Calcium 9.6 8.5-10.1 MG/DL Total Bilirubin 0.4 0.1-1.0 MG/DL Aspartate Amino Transf (AST/SGOT) 19 5-34 U/L Alanine Aminotransferase (ALT/SGPT) 12 0-55 U/L Alkaline Phosphatase 79 40-136 U/L Troponin I < 0.028 <0.028 NG/ML Total Protein 6.7 6.4-8.2 GM/DL Albumin 3.8 3.2-4.5 GM/DL Urine Color YELLOW Urine Clarity CLEAR Urine pH 6.0 5-9 Urine Specific [place] 1.020 1.016-1.022 Urine Protein NEGATIVE NEGATIVE Urine Glucose (UA) TRACE H NEGATIVE Urine Ketones NEGATIVE NEGATIVE Urine Nitrite NEGATIVE NEGATIVE Urine Bilirubin NEGATIVE NEGATIVE Urine Urobilinogen 0.2 < = 1.0 MG/DL Urine Leukocyte Esterase 1+ H NEGATIVE Urine RBC (Auto) NEGATIVE NEGATIVE Urine RBC NONE /HPF Urine WBC 0-2 /HPF Urine Squamous Epithelial Cells 0-2 /HPF Urine Crystals NONE /LPF Urine Bacteria NEGATIVE /HPF Urine Casts NONE /LPF Urine Mucus NEGATIVE /LPF Urine Culture Indicated NO (ROMAIN FAIRCHILD DO) Vital Signs/I&O 02/26/22 16:29 Temp 36.2 Pulse 79 Resp 20 B/P (MAP) 140/85 (103) Pulse Ox 97 O2 Delivery Room Air (ROMAIN FAIRCHILD DO) Blood Pressure Mean: 103 Progress Progress Note : Time: 18:10 Progress Note Last known well time was approximately 24 hours prior to arrival. Symptoms were known to be present yesterday evening. Stroke activation was not paged but work-up was pursued. Portions of work-up are still pending and care is being transitioned to Dr. Fairchild. (RODOLFO CUELLO MD) Initial ECG Impression Date: Feb 26, 2022 Initial ECG Impression Time: 17:56 Initial ECG Rate: 66 Initial ECG Rhythm: Normal Sinus Initial ECG Intervals: Normal Initial ECG Impression: Normal Comment Normal sinus rhythm with no ST elevation or depression. No definite axis deviation. Moderate intraventricular conduction delay by automated read. (RODOLFO CUELLO MD) Diagnostic Imaging Diagonstic Imaging: Xray Plain Films/CT/US/NM/MRI: chest Comments NAME: CASTRO PADRON [facility] REC#: [id number] PT STATUS: REG ER : 1940 PHYSICIAN: RODOLFO CUELLO MD ADMIT DATE: 02/26/22/ER Draft Date of Exam:02/26/22 CHEST 1 VIEW, AP/PA ONLY EXAMINATION: Chest 1 view. HISTORY: Left sided weakness. COMPARISON: 01/29/2021. FINDINGS: The lungs are clear without edema or pneumonia. No pleural effusion or pneumothorax. Heart size is normal. Loop recorder is present. Median sternotomy wires are aligned. There are coronary artery bypass graft markers. IMPRESSION: Clear lungs. Dictated on workstation # [id number] Dict: 02/26/22 1806 Trans: 02/26/22 1813 [facility] [id number] Interpreted by: JESS GARCÍA MD Reviewed: Reviewed by Me Diagonstic Imaging: CT Plain Films/CT/US/NM/MRI: head Comments NAME: CASTRO PADRON [facility] REC#: [id number] PT STATUS: REG ER : 1940 PHYSICIAN: RODOLFO CUELLO MD ADMIT DATE: 02/26/22/ER Draft Date of Exam:02/26/22 CT HEAD WO-R/O STROKE EXAMINATION: CT head without contrast. TECHNIQUE: Multiple contiguous axial images were obtained through the brain without the use of intravenous contrast. All CT scans use one or more of the following dose optimizing techniques: automated exposure control, MA and/or KvP adjustment based on patient size and exam type or iterative reconstruction. HISTORY: Neurologic deficit. COMPARISON: 11/12/2020. FINDINGS: The rogers-white matter differentiation is normal. No mass effect or midline shift. There is age related cerebral atrophy with ex vacuo dilation of the ventricles. Periventricular white matter hypoattenuation is in keeping with chronic small vessel ischemic changes. Basilar cisterns are patent. There is no intra-axial or extra-axial fluid collection. There is no intracranial hemorrhage. The orbits are normal. Paranasal sinuses are normal. Mastoid air cells are clear. No soft tissue abnormality is seen. No osseus lesion or fracture is seen. IMPRESSION: No acute intracranial abnormality. Dictated on workstation # [id number] Dict: 02/26/22 1804 Trans: 02/26/221810 P[facility] [id number] Interpreted by: JESS GARCÍA MD Reviewed: Reviewed by Me (RODOLFO CUELLO MD) Comments CT ANGIOGRAM HEAD/NECK--VERBAL REPORT FROM RADIOLOGIST AT 1849 Reviewed: Discussed w/Radiologist, Reviewed/Discussed (ROMAIN FAIRCHILD DO) Departure Communication (Admissions) 1901--CALLED [facility]. 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 Decision time for Depature: 19:18 (ROMAIN FAIRCHILD DO) Referrals: ISRAEL AVALOS MD (PCP) Primary Care Physician BISI GARCIA MD Patient Instructions: Stroke (DC) Add. Discharge Instructions: HOME, REST CONTINUE YOUR REGULAR MEDICATIONS PRESCRIBED FOLLOW UP WITH DR. GARCIA TOMORROW IN THE OFFICE, -CALL FIRST THING IN THE [facility] TO SCHEDULE APPOINTMENT All discharge instructions reviewed with patient and/or family. Voiced understanding. Copy Copies To 1: BISI GARCIA MD, JOSHUA T MD Feb 26, 2022 18:11 ROMAIN FAIRCHILD DO Feb 26, 2022 18:50
[2022-02-26] MEDS ORDERED: NS IV 1000 ML 1,000 ML IV SCH (18:15)
[2022-02-26] MEDS ORDERED: HOLD METFORMIN - RECEIVED CONTRAST 20 ML VIAL IV SCH (18:30)
[2022-02-26] MEDS ORDERED: NS 100 ML (IVPB) BAG IV ONE (18:30)
[2022-02-26] MEDS ORDERED: IOHEXOL 350 MG/ML 100 ML (OMNIPAQUE 350) VIAL IV ONE (18:30)
--- NOTE | 2022-02-26 18:58 | Diagnostic Imaging Report ---
EXAMINATION: CT angiography head and neck with and without contrast. TECHNIQUE: After intravenous administration of contrast, thin section axial CT angiography of the head and neck was performed. Source data was reformatted into 3D MIP projections. All CT scans use one or more of the following dose optimizing techniques: automated exposure control, MA and/or KvP adjustment based on a patient size and exam type, or iterative reconstruction. Any measurements of internal carotid artery stenosis are provided according to NASCET criteria. CT angiogram was post-processed using AI detection software to include quantitative measurements of cerebral blood flow and automated results notification to the stroke and/or neurointerventional team. HISTORY: Left sided weakness. COMPARISON: None available. FINDINGS: There is moderate stenosis of both internal carotid arteries. Vertebral arteries are normal without stenosis. Intracranial internal carotid arteries are normal. The middle cerebral arteries are normal. There is focal occlusion or severe stenosis of the right P1. The anterior cerebral arteries are normal. There is no large vessel occlusion. No aneurysm or vascular malformation is seen. The rogers-white matter differentiation is normal. No mass effect or midline shift. The ventricles are normal in size and configuration. Basilar cisterns are patent. There is no intra-axial or extra-axial fluid collection. There is no intracranial hemorrhage. The orbits are normal. Paranasal sinuses are normal. Mastoid air cells are clear. No soft tissue abnormality is seen. No osseus lesion or fracture is seen. No lymphadenopathy is seen in the neck. The muscles of the neck are normal. Fascial planes are preserved and the deep spaces of the neck are normal. Limited views of the superior thorax are unremarkable. There is no suspicious osseous lesion. IMPRESSION: 1. Occlusion versus severe stenosis of the right P1. Other intracranial vessels are intact. 2. Moderate stenosis of both internal carotid arteries. Findings called to Dr. Fairchild by Dr. Guerrero on 02/26/2022 at 6:50 PM Dictated by: Dictated on workstation # [id number]
[2022-02-26 19:55] VITALS: BP 175/92
[2022-02-27] MEDS ORDERED: CYCL5TAB PO (11:42)
[2022-02-27] MEDS ORDERED: RT-ALBUINH INH (11:42)
[2022-02-27] MEDS ORDERED: DILT240C53 PO (11:42)
[2022-02-27] MEDS ORDERED: PANT40TA2 PO (11:42)
[2022-02-27] MEDS ORDERED: TMSL.4C PO (11:42)
[2022-02-27] MEDS ORDERED: BUDE10.2 INH (11:42)
[2022-02-27] MEDS ORDERED: FEXO-338 PO (11:42)
[2022-02-27] MEDS ORDERED: IPRA3AMP31 NEB (11:43)
== END 2022-02-26 19:57 | disposition home or self-care (01) ==
LOC: EDUNIT# 16:26 → ER 16:27
DX: I63.9 Cerebral infarction, unspecified (principal); R47.01 Aphasia; F81.0 Specific reading disorder; E11.40 Type 2 diabetes mellitus with diabetic neuropathy, unspecified; Z28.311 Partially vaccinated for COVID-19; Z79.4 Long term (current) use of insulin
CPT/HCPCS: 36415; 70450; 70496; 70498; 71045; 80053; 81000; 84484; 85025; 85379; 85610; 85730; 93005; 93041

== ENCOUNTER 2022-02-27 04:02 | Inpatient (IN) | payer MEDICARE, MEDICAID ==
[2022-02-27] VITALS (8 sets, daily range): BP systolic 159–188; BP diastolic 77–96
[~2022-02-27] VITALS: Ht 182.8 cm; Wt 72.7 kg
[2022-02-27 04:27] LABS: BASOPHILS % (AUTO) 1 % (0-10); EOSINOPHILS # (AUTO) 0.2 10^3/uL (0.0-0.3); EOSINOPHILS % (AUTO) 2 % (0-10); HEMATOCRIT 43 % (40-54); HEMOGLOBIN 14.2 g/dL (13.3-17.7); LYMPHOCYTES # (AUTO) 2.2 10^3/uL (1.0-4.0); LYMPHOCYTES % (AUTO) 25 % (12-44); MEAN CORPUSCULAR HEMOGLOBIN 29 pg (25-34); MEAN CORPUSCULAR HGB CONC 33 g/dL (32-36); MEAN CORPUSCULAR VOLUME 87 fL (80-99); MEAN PLATELET VOLUME 9.9 fL (9.0-12.2); MONOCYTES # (AUTO) 0.6 10^3/uL (0.0-1.0); MONOCYTES % (AUTO) 7 % (0-12); NEUTROPHILS # (AUTO) 5.8 10^3/uL (1.8-7.8); NEUTROPHILS % (AUTO) 66 % (42-75); PLATELET COUNT 317 10^3/uL (130-400); WHITE BLOOD COUNT 8.7 10^3/uL (4.3-11.0)
[2022-02-27 04:39] LABS: ALBUMIN 3.9 GM/DL (3.2-4.5); CHLORIDE 107 MMOL/L (98-107); POTASSIUM 3.3 MMOL/L (3.6-5.0); SODIUM 139 MMOL/L (135-145)
[2022-02-27 04:40] LABS: CALCIUM 9.3 MG/DL (8.5-10.1)
[2022-02-27 04:41] LABS: GLUCOSE 86 MG/DL (70-105); INR 1.3 (0.8-1.4); PROTHROMBIN TIME PATIENT 17.1 SEC (12.2-14.7); TOTAL PROTEIN 6.9 GM/DL (6.4-8.2)
[2022-02-27 04:42] LABS: CARBON DIOXIDE 22 MMOL/L (21-32)
[2022-02-27 04:43] LABS: BILIRUBIN,TOTAL 0.4 MG/DL (0.1-1.0)
[2022-02-27 04:45] LABS: ALKALINE PHOSPHATASE 88 U/L (40-136); CREATININE SERUM 1.23 MG/DL (0.60-1.30); GFR ESTIMATED 60
[2022-02-27 04:46] LABS: BUN/CREATININE RATIO 8
[2022-02-27 04:48] LABS: ALANINE AMINOTRANSFERASE 11 U/L (0-55); MAGNESIUM 1.9 MG/DL (1.6-2.4)
--- NOTE | 2022-02-27 05:01 | ED Neurological Problem ---
General Chief Complaint: Neurological Problems Stated Complaint: HAVING STROKE SYMPTOMS Nursing Triage Note: Pt presents with c/o increased weakness and blurred vision. PT was evaluated in ER yesterday for similar symptoms, but left because he didn't want to be admitted. Pt reports he had worsening symptoms and returned to ER Source: patient, EMS, old records History of Present Illness Date Seen by Provider: Feb 27, 2022 Time Seen by Provider: 04:05 Initial Comments PT ARRIVES VIA EMS FROM HOME PT WAS SEEN IN ER EARLIER THIS EVENING FOR STROKE SYMPTOMS THOSE SYMPTOMS BEGAN SOMETIME AFTER 5 PM ON SUNDAY NIGHT. HE PRESENTED TO ER 24 HOURS LATER. C/O LEFT SIDE WEAKNESS--ARM AND LEG C/O BLURRY VISION IN BOTH EYES C/O LIPS NUMB AND TINGLY--BOTH UPPER AND LOWER LIPS AND BOTH SIDES OF LIPS C/O UNSTEADY ON HIS FEET PT HAD A FULL WORK UP INCLUDING CT ANGIOGRAM OF HEAD AND NECK, AND WAS FOUND TO HAVE OCCLUSION/SEVERE STENOSIS OF THE RIGHT P1, AND MODERATE BILATERAL CAROTID STENOSIS. KU STROKE NEUROLOGIST WAS CONTACTED, AND ADVISED THAT PT WAS NOT A CANDIDATE FOR ANY INTERVENTION DUE TO AREA OF OCCLUSION, IN ADDITION TO TIME FRAME FROM ONSET OF SYMPTOMS, AND RECOMMENDED ROUTINE ANTICOAGULATION. PT IS ALREADY ON ELIQUIS FOR CHRONIC PAROXYSMAL ATRIAL FIBRILLATION. IT WAS STRONGLY ADVISED THAT PT BE ADMITTED TO THE HOSPITAL FOR FURTHER EVAL UATION INCLUDING MRI, ETC., IN ADDITION TO PHYSICAL THERAPY/SPEECH THERAPY, OCCUPATIONAL THERAPY AND POSSIBLY REHAB. PT ADAMANTLY REFUSED ADMIT. HAD STATED THAT HE WAS FINE AND COULD GET AROUND AT HOME. DR. GARCIA WAS CONTACTED REGARDING THIS, AND HE HAD ADVISED TO HAVE PT SEE HIM IN THE OFFICE THIS MORNING ( Sunday) PT REFUSED A WALKER AT DISMISSAL WELL. PT LIVES WITH HIS DAUGHTER PT RETURNS NOW, STATING THAT HIS VISION IS BLURRY AND HIS LIPS ARE TINGLY AND HE IS "[place] UNSTEADY" WHEN HE WALKS. PT STATES THESE WERE ALL PRESENT WHEN HE WAS HERE EARLIER, BUT MAYBE HAVE GOTTEN A LITTLE WORSE SINCE HE GOT HOME--HE ISN'T SURE IF THEY ARE WORSE OR NOT, BUT AREN'T ANY BETTER. PT STATES HE HAS NOT HAD ANYTHING TO EAT OR DRINK SINCE HE GOT HOME. PT STATES HE NOW WANTS TO BE ADMITTED TO THE HOSPITAL. PCP: MARÍA OLIVEIRA Allergies and Home Medications Allergies Coded Allergies: celecoxib (Unverified Allergy, Mild, TAKES ASPIRIN AT HOME, 9/17/19) diclofenac (Unverified Allergy, Mild, TAKES ASPIRIN AT HOME, 01/28/19) naproxen (Unverified Allergy, Mild, TAKES ASPIRIN AT HOME, 01/28/19) rosuvastatin (Unverified Allergy, Mild, 01/28/19) Penicillins (Verified Allergy, Unknown, 01/28/19) amoxicillin (Verified Allergy, Unknown, 01/28/19) fenofibrate (Unverified Allergy, Unknown, 01/28/19) gemfibrozil (Unverified Allergy, Unknown, 10/15/19) simvastatin (Unverified Allergy, Unknown, 01/28/19) Patient Home Medication List Apixaban (Eliquis) 5 Mg Tablet, 5 MG PO BID, (Reported) Entered as Reported by: CASTRO BURLESON on 07/23/16 1855 Cholecalciferol (Vitamin D3) (Vitamin D3) 50 Mcg Capsule, 50 MCG PO DAILY, (Reported) Entered as Reported by: JHON PAZ on 01/14/21 09 Citalopram Hydrobromide (Citalopram HBr) 20 Mg Tablet, 20 MG PO DAILY, (Reported) Entered as Reported by: JHON PAZ on 01/14/21 09 Clonidine HCl (Clonidine HCl) 0.1 Mg Tablet, 0.1 MG PO DAILY, (Reported) Entered as Reported by: JHON PAZ on 01/14/21 09 Digoxin (Digoxin) 125 Mcg Tablet, 125 MCG PO DAILY, (Reported) Entered as Reported by: DANYA LIM on 03/01/16 0925 Diltiazem HCl (Cartia Xt) 240 Mg Cap.er.24h, 240 MG PO DAILY Prescribed by: GURDEEP LOPEZ on 01/14/21 1038 Fenofibric Acid (Choline) (Fenofibric Acid) 135 Mg Capsule.dr, 135 MG PO DAILY, (Reported) Entered as Reported by: JHON PAZ on 01/14/21 09 Gabapentin (Neurontin) 300 Mg Capsule, 300 MG PO TID, (Reported) Entered as Reported by: ARTIS GONSALES on 10/09/19 1536 Glipizide (Glipizide) 10 Mg Tablet, 10 MG PO DAILY, (Reported) Entered as Reported by: ARTIS GONSALES on 10/09/19 1537 Insulin Detemir (Levemir Flextouch) 100 Unit/1 Ml Insuln.pen, 35 UNITS SQ BID, (Reported) Entered as Reported by: CASTRO BURLESON on 12/21/14 0459 Lorazepam (Ativan) 1 Mg Tablet, 1 MG PO TID PRN for ANXIETY, (Reported) Entered as Reported by: JHON PAZ on 01/14/21 0908 Nitroglycerin (Nitrostat) 0.4 Mg Tab.subl, 0.4 MG SL UD PRN for CHEST PAIN, (Reported) Entered as Reported by: ADIA GOTTLIEB on 03/22/16 0830 Pentoxifylline (Pentoxifylline) 400 Mg Tablet.er, 400 MG PO TID, (Reported) Entered as Reported by: DANYA LIM on 05/31/16 1333 Tamsulosin HCl (Flomax) 0.4 Mg Cap, 0.4 MG PO DAILY, (Reported) Entered as Reported by: GEOVANY PEDROZA on 01/28/19 1155 Review of Systems Review of Systems Constitutional: no symptoms reported; No dizziness Eyes: See HPI, Blurred Vision Ears, Nose, Mouth, Throat: see HPI Respiratory: no symptoms reported; No short of breath Cardiovascular: no symptoms reported; No chest pain, No palpitations Gastrointestinal: no symptoms reported; No nausea Genitourinary: no symptoms reported Musculoskeletal: see HPI Skin: no symptoms reported Psychiatric/Neurological: See HPI Past Alshfnp-Itbxpt-Uynhnn Hx Immunizations Up To Date Tetanus Booster (TDap): Less than 5yrs PED Vaccines UTD: No First/Initial COVID19 Vaccinat: 2020 Second COVID19 Vaccination Danilo: 2020 Third COVID19 Vaccination Date: 2020 Seasonal Allergies Seasonal Allergies: No Past Medical History Surgery/Hospitalization HX: CARDIAC CATHS-WITH STENT PLACEMENT--LAST CATH 03/03/[address] GARCIA: CONCLUSION: 1. Severe [place] coronary artery disease corrected with the patent 4 bypass grafts. 2. Patent stent in the proximal vein graft to the obtuse marginal branch with good flow distally 3. Patent vein graft to the diagonal artery, vein graft to the right coronary artery and AMANDA to LAD with excellent flow distally 4. Normal left ventricular size and systolic function estimated ejection fraction 60 percent DISCUSSION AND RECOMMENDATION: Medical therapy is recommended no intervention is needed CABG X 4 VESSEL LINQ DEVICE PLACED PERIPHERAL CATHS WITH STENTS IN LEGS BILATERAL TOTAL KNEE REPLACEMENTS LUMBAR LAMINECTOMY CHOLESYCTECTOMY CATARACT SURGERY EGD'S WITH ESOPHAGEAL DILATIONS--LAST ONE 10/[address] CESIA FORDE FUNDOPLICATION/HIATAL HERNIA REPAIR 2004 CAD,HTN,COPD, TIA, BPH, RENAL INSUFF, IDDM, ARTHRITIS, ANX. LONG HISTORY OF NON-COMPLIANCE Surgeries: Yes (CORONARY BYPASS X4;LINQ; BILAT TKR;STENTS IN LEGS;LUMBAR LAMINECTOMY) Abdominal, Angioplasty, Cardiac, CABG, Coronary Stent, Eye Surgery, Gallbladder, Joint Replacement, Open Heart Surgery, Orthopedic, Vascular Surgery Respiratory: Yes (CHRONIC DYSPNEA ON EXERTION) Sleep Apnea, COPD Currently Using CPAP: No Currently Using BIPAP: No Cardiac: Yes (LINQ DEVICE IN PLACE; S/P CABG; CARDIAC AND LEG STENTS;AFIB/FLU TTER) Atrial Fibrillation, Chronic Edema/Swelling, Coronary Artery Disease, Heart Attack, High Cholesterol, Hypertension, Peripheral Vascular Neurological: Yes (POSSIBLE STROKE/ TIA) Neuropathy, Stroke, TIA Reproductive Disorders: No Sexually Transmitted Disease: No HIV/AIDS: No Genitourinary: Yes (RENAL INSUFFICIENCY-NO DIALYSIS) Benign Prostatic Hyperpl, Prostate Problems, Renal Failure Gastrointestinal: Yes (GASTROPARESIS;ESOPHAGEAL STRICTURES) Abdominal Hernia, Gastroesophageal Reflux, Chronic Constipation, Diverticulosis, Pancreatitis, Polyps, Esophagitis, Hiatal Hernia, Gall Bladder Disease Musculoskeletal: Yes (OLECRANON BURSITIS, CHRONIC NECK PAIN, DISH SYNDROME;BILAT TKR) Degenerate Disk Disease, Arthritis, Chronic Back Pain Endocrine: Yes Diabetes, Insulin dep HEENT: Yes Cataract Loss of Vision: Denies Hearing Impairment: Denies Cancer: No Psychosocial: Yes Anxiety, Depression Integumentary: No Blood Disorders: No Adverse Reaction/Blood Tranf: No (N/A) Family Medical History Cancer G8 BROTHER Cataract 19 FATHER 19 MOTHER G8 BROTHER G8 BROTHER G8 SISTER Congestive heart failure 19 FATHER 19 MOTHER Family history: Arthritis 19 FATHER 19 MOTHER G8 BROTHER G8 BROTHER G8 SISTER G8 SISTER DAUGHTER SON Family history: Breast disease DAUGHTER Family history: Cardiovascular disease 19 FATHER Family history: Diabetes mellitus 19 FATHER G8 BROTHER G8 SISTER Family history: Hypertension 19 FATHER 19 MOTHER G8 BROTHER G8 BROTHER G8 SISTER G8 SISTER DAUGHTER SON Family history: Thyroid disorder DAUGHTER Heart disease 19 FATHER 19 MOTHER G8 BROTHER Hypercholesterolemia 19 FATHER 19 MOTHER G8 BROTHER G8 BROTHER G8 SISTER Myocardial infarction 19 FATHER 19 MOTHER G8 BROTHER No Family History of: Abdominal aortic aneurysm Globe's disease Alcoholism Aphasia Cancer of colon Chest pain Congenital heart disease Cystic fibrosis Dementia Dysphagia Family history: Allergy Family history: Alzheimer's disease Family history: Asthma Family history: Coronary thrombosis Family history: Gastrointestinal disease Family history: Glaucoma Family history: Osteoporosis Headache Hearing loss Hereditary disease History of - anemia History of - disorder History of - respiratory disease History of drug abuse Human immunodeficiency virus (HIV) seropositivity Infertile Kidney disease Malignant neoplasm of lung Parkinson's disease Prostate cancer Psychotic disorder Seizure disorder Stroke Tuberculosis Visual impairment CAD Over 55 Years Old PAST SURGICAL HISTORY: -CARDIAC CATHS--STENTS IN HEART AND IN LEGS. LAST CARDIAC CATH 03/03/20--PATENT STENTS/GRAFTS, NO INTERVENTION -CABG -LINQ DEVICE IMPLANTED -LUMBAR LAMINECTOMY -BILATERAL TOTAL KNEE REPLACEMENTS -EGD'S WITH DILATIONS--LAST ONE 10/2019. -HIATAL HERNIA REPAIR/MAURISIO FUNDOPLICATION 2004 - Physical Exam Vital Signs Vital Signs - First Documented 02/27/22 04:13 Temp 36.5 Pulse 68 Resp 18 B/P (MAP) 186/96 (126) Capillary Refill : Less Than 3 Seconds Height, Weight, BMI Height: 6'0" Weight: 180lbs. 4.0oz. 81.428503af; 23.00 BMI Method:Stated General Appearance: WD/WN, no apparent distress HEENT: PERRL/EOMI, normal ENT inspection, other (EDENTULOUS) Neck: normal inspection Respiratory: normal breath sounds, no respiratory distress, no accessory muscle use Cardiovascular: normal peripheral pulses, regular rate, rhythm, no edema, no JVD, no murmur Gastrointestinal: non tender, soft Extremities: normal range of motion, non-tender, no pedal edema, no calf tende rness, normal capillary refill, other (FREELY USING LEFT ARM AND HAND--PT IS ABLE TO HOLD EMS TABLET IN THE AIR WITH LEFT HAND AND WRITE WITH HIS RIGHT HAND--HOLDING IT IN THE AIR WELL. 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 NO PRONATOR DRIFT ON LEFT. MILD WEAKNESS ON LEFT LEG RAISING. DOES HAVE SOME COORDINATION PROBLEMS WITH [id number] WITH BOTH ARMS EQUALLY, AND THE SAME PROBLEMS WITH [id number] WITH BOTH LEGS EQUALLY. ) Crainal Nerves: normal speech, PERRL; No facial droop, No facial paresthesias, No facial weakness, No gaze palsy, No tongue deviation to R, No tongue deviation to L; other (HARD OF HEARING. ) Motor/Sensory: No sensory deficit Skin: normal color, warm/dry Stroke Onset of Symptoms Date of Onset of Symptoms: Feb 25, 2022 Time of Symptom Onset: 17:00 NIH Stroke Scale Assessment Select: Initial Level of Consciousness: 0=Alert (0), Level of Consciousness- Questions: 0=Answers both month/age (0), LOC Commands: 0=Performs both tasks (0), Gaze: Normal (0), Visual Barrios: 0=No visual loss (0), Facial Movement (Facial Paresis): 0=Normal symmetrical mnt (0), Motor Function-Arms Right: 0=No drift (0), Motor Function-Arms Left: 1=Drift (1), Motor Function-Legs Right: 0=No drift (0), Motor Function-Legs Left: 1=Drift (1), Limb Ataxia: 2=Present in two limbs (2), Sensory: 0=Normal:no loss (0), Best Language: 0=No aphasia (0), Dysarthria: 0=Normal (0), Extinction & Inattention: 0=No abnormality (0), Total: 4 Stroke Thrombolytic Exclusion Age 18 or Over: Yes Acute intenal hemorrhage: No History of CVA: No Uncontrolled Coagulation Defec: No Intracranial Hemorrhage: No Severe Hypertension: No GI or Bleed: No Subarachnoid Hemorrhage: No Intracranial Neoplasm/Aneurysm: No Oral Anticoagulants: Yes Surgery or Trauma: No Puncture of Non-Compressible V: No Recent CPR: No Diabetic Hemorrhagic Retinopat: No Organ Biopsy: No Recent Obstetric Delivery: No Glucose: No Significant Hepatic Dysfunctio: No NIH Stoke Scale >22: No Bacterial Endocarditis: No Pericarditis: No Improving Symptoms: No Platelets: No TPA Contraindication: No IV - TPa Received IV - TPa Procedure Performed?: No (ONSET NOW > 36 HOURS) Progress/Results/Core Measures Results/Orders Lab Results Laboratory Tests Test 02/27/22 04:15 Range/Units White Blood Count 8.7 4.3-11.0 10^3/uL Red Blood Count 4.96 4.30-5.52 10^6/uL Hemoglobin 14.2 13.3-17.7 g/dL Hematocrit 43 40-54 % Mean Corpuscular Volume 87 80-99 fL Mean Corpuscular Hemoglobin 29 25-34 pg Mean Corpuscular Hemoglobin Concent 33 32-36 g/dL Red Cell Distribution Width 13.6 10.0-14.5 % Platelet Count 317 130-400 10^3/uL Mean Platelet Volume 9.9 9.0-12.2 fL Immature Granulocyte % (Auto) 0 % Neutrophils (%) (Auto) 66 42-75 % Lymphocytes (%) (Auto) 25 12-44 % Monocytes (%) (Auto) 7 0-12 % Eosinophils (%) (Auto) 2 0-10 % Basophils (%) (Auto) 1 0-10 % Neutrophils # (Auto) 5.8 1.8-7.8 10^3/uL Lymphocytes # (Auto) 2.2 1.0-4.0 10^3/uL Monocytes # (Auto) 0.6 0.0-1.0 10^3/uL Eosinophils # (Auto) 0.2 0.0-0.3 10^3/uL Basophils # (Auto) 0.0 0.0-0.1 10^3/uL Immature Granulocyte # (Auto) 0.0 0.0-0.1 10^3/uL Prothrombin Time 17.1 H 12.2-14.7 SEC INR Comment 1.3 0.8-1.4 Activated Partial Thromboplast Time 35 24-35 SEC Sodium Level 139 135-145 MMOL/L Potassium Level 3.3 L 3.6-5.0 MMOL/L Chloride Level 107 98-107 MMOL/L Carbon Dioxide Level 22 21-32 MMOL/L Anion Gap 10 5-14 MMOL/L Blood Urea Nitrogen 10 7-18 MG/DL Creatinine 1.23 0.60-1.30 MG/DL Estimat Glomerular Filtration Rate 60 BUN/Creatinine Ratio 8 Glucose Level 86 70-105 MG/DL Calcium Level 9.3 8.5-10.1 MG/DL Corrected Calcium 9.4 8.5-10.1 MG/DL Magnesium Level 1.9 1.6-2.4 MG/DL Total Bilirubin 0.4 0.1-1.0 MG/DL Aspartate Amino Transf (AST/SGOT) 13 5-34 U/L Alanine Aminotransferase (ALT/SGPT) 11 0-55 U/L Alkaline Phosphatase 88 40-136 U/L Troponin I < 0.028 <0.028 NG/ML Total Protein 6.9 6.4-8.2 GM/DL Albumin 3.9 3.2-4.5 GM/DL Digoxin Level 0.63 L 0.80-2.00 NG/ML Serum Alcohol < 10 <10 MG/DL My Orders Vital Signs/I&O 02/27/22 04:13 Temp 36.5 Pulse 68 Resp 18 B/P (MAP) 186/96 (126) Blood Pressure Mean: 126 Initial ECG Impression Date: Feb 27, 2022 Initial ECG Impression Time: 04:29 Initial ECG Rate: 69 Initial ECG Rhythm: Normal Sinus Initial ECG Impression: Nonspecific Changes, 1st Degree AV Block Departure Communication (Admissions) 0417--SPOKE WITH DR. LOPEZ, HOSPITALIST, ACCEPTS PT FOR ADMIT. Impression Primary Impression: CVA WITH LEFT SIDE WEAKNESS Additional Impressions: HTN (hypertension) IDDM (insulin dependent diabetes mellitus) Paroxysmal atrial fibrillation HX OF CAD WITH CABG AND STENTS Disposition: ADMITTED INPATIENT Condition: Stable Admissions Decision to Admit Reason: Admit from ER (General) Decision to Admit/Date: Feb 27, 2022 Time/Decision to Admit Time: 04:20 Departure-Patient Inst. Referrals: ISRAEL AVALOS MD (PCP/Family) Primary Care Physician ROMAIN KNIGHT DO Feb 27, 2022 05:01
[2022-02-27 05:11] LABS: BILIRUBIN,URINE NEGATIVE (NEGATIVE); CLARITY,URINE CLEAR; COLOR,URINE YELLOW; GLUCOSE, URINE (UA) NEGATIVE (NEGATIVE); KETONES,URINE NEGATIVE (NEGATIVE); LEUKOCYTE ESTERASE ,URINE TRACE (NEGATIVE); NITRITE,URINE NEGATIVE (NEGATIVE); PH,URINE 6.5 (5-9); PROTEIN,URINE NEGATIVE (NEGATIVE)
[2022-02-27 05:19] LABS: BACTERIA,URINE NEGATIVE /HPF; RBC,URINE RARE /HPF; WBC,URINE RARE /HPF
[2022-02-27 05:21] LABS: AMPHETAMINE SCREEN, URINE NEGATIVE (NEGATIVE); BARBITURATE SCREEN URINE NEGATIVE (NEGATIVE); BENZODIAZEPINES SCREEN URINE NEGATIVE (NEGATIVE); CANNABINOID SCREEN, URINE NEGATIVE (NEGATIVE); COCAINE SCREEN URINE NEGATIVE (NEGATIVE); METHADONE STAT NEGATIVE (NEGATIVE); OPIATE SCREEN URINE NEGATIVE (NEGATIVE); OXYCODONE STAT NEGATIVE (NEGATIVE); PROPOXYPHENE STAT NEGATIVE (NEGATIVE); TRICYCLIC ANTIDEPRESSANTS SCRE NEGATIVE (NEGATIVE)
[2022-02-27] MEDS ORDERED: CATHETER FLUSH 10 ML SYR IVP PRN (05:30)
[2022-02-27] MEDS: CATHETER FLUSH 10 ML SYR IVP SCH ×3 (06:20→21:19)
[2022-02-27] MEDS: inSUlin ASPART (NovoLOG) 1 UNIT/0.01 ML (CHARGE PER UNIT) SC SCH ×5 (06:21→21:19)
[2022-02-27] MEDS ORDERED: FLU QUAD HIGH DOSE 240 MCG/0.7 ML 2022-23 (FLUZONE) IM ONE (07:00)
--- NOTE | 2022-02-27 08:31 | Consultation-Cardiology ---
HPI-Cardiology Cardiology Consultation Date of Consultation 02/27/22 Date of Admission Time Seen by Provider: 09:00 Indication: CVA HPI Patient is a 81 y/o male with history of CAD, PAF. Presented to the ER yesterday with complaints of left sided weakness, numbness/tingling in lips. Initially left the ER, refusing admission. Presented back to ER earlier today with complaints of ongoing weakness. Home Medications & Allergies Allergies: Coded Allergies: celecoxib (Unverified Allergy, Mild, TAKES ASPIRIN AT HOME, 01/28/19) diclofenac (Unverified Allergy, Mild, TAKES ASPIRIN AT HOME, 01/28/19) naproxen (Unverified Allergy, Mild, TAKES ASPIRIN AT HOME, 01/28/19) rosuvastatin (Unverified Allergy, Mild, 01/28/19) Penicillins (Verified Allergy, Unknown, 01/28/19) amoxicillin (Verified Allergy, Unknown, 01/28/19) fenofibrate (Unverified Allergy, Unknown, 01/28/19) gemfibrozil (Unverified Allergy, Unknown, 10/15/19) simvastatin (Unverified Allergy, Unknown, 01/28/19) Home Medication List Reviewed: Yes [id number]-[id number] Hx Patient Social History Marital Status: Former smoker/When Quit: May 31, 1999 Type Used: Cigarettes 2nd Hand Smoke Exposure: No Recent Hopitalizations: No Have you traveled recently?: No Alcohol Use?: No Immunizations Up To Date Tetanus Booster (TDap): Less than 5yrs Date of Pneumonia Vaccine: May 22, 2017 Date of Influenza Vaccine: Mar 08, 2018 Past Medical History CAD PAF Family Medical History Significant Family History: CAD Over 55 Years Old Family History: Cancer G8 BROTHER Cataract 19 FATHER 19 MOTHER G8 BROTHER G8 BROTHER G8 SISTER Congestive heart failure 19 FATHER 19 MOTHER Family history: Arthritis 19 FATHER 19 MOTHER G8 BROTHER G8 BROTHER G8 SISTER G8 SISTER DAUGHTER SON Family history: Breast disease DAUGHTER Family history: Cardiovascular disease 19 FATHER Family history: Diabetes mellitus 19 FATHER G8 BROTHER G8 SISTER Family history: Hypertension 19 FATHER 19 MOTHER G8 BROTHER G8 BROTHER G8 SISTER G8 SISTER DAUGHTER SON Family history: Thyroid disorder DAUGHTER Heart disease 19 FATHER 19 MOTHER G8 BROTHER Hypercholesterolemia 19 FATHER 19 MOTHER G8 BROTHER G8 BROTHER G8 SISTER Myocardial infarction 19 FATHER 19 MOTHER G8 BROTHER No Family History of: Abdominal aortic aneurysm Robel's disease Alcoholism Aphasia Cancer of colon Chest pain Congenital heart disease Cystic fibrosis Dementia Dysphagia Family history: Allergy Family history: Alzheimer's disease Family history: Asthma Family history: Coronary thrombosis Family history: Gastrointestinal disease Family history: Glaucoma Family history: Osteoporosis Headache Hearing loss Hereditary disease History of - anemia History of - disorder History of - respiratory disease History of drug abuse Human immunodeficiency virus (HIV) seropositivity Infertile Kidney disease Malignant neoplasm of lung Parkinson's disease Prostate cancer Psychotic disorder Seizure disorder Stroke Tuberculosis Visual impairment Review of Systems-General Review of Systems Constitutional: no symptoms reported; No dizziness Respiratory: no symptoms reported; No short of breath Cardiovascular: no symptoms reported; No chest pain, No palpitations Gastrointestinal: no symptoms reported; No nausea Genitourinary: no symptoms reported Musculoskeletal: see HPI Skin: no symptoms reported Reviewed Test Results Reviewed Test Results Lab Laboratory Tests 02/27/22 04:15: White Blood Count 8.7, Red Blood Count 4.96, Hemoglobin 14.2, Hematocrit 43, Mean Corpuscular Volume 87, Mean Corpuscular Hemoglobin 29, Mean Corpuscular Hemoglobin Concent 33, Red Cell Distribution Width 13.6, Platelet Count 317, Mean Platelet Volume 9.9, Immature Granulocyte % (Auto) 0, Neutrophils (%) (Auto) 66, Lymphocytes (%) (Auto) 25, Monocytes (%) (Auto) 7, Eosinophils (%) (Auto) 2, Basophils (%) (Auto) 1, Neutrophils # (Auto) 5.8, Lymphocytes # (Auto) 2.2, Monocytes # (Auto) 0.6, Eosinophils # (Auto) 0.2, Basophils # (Auto) 0.0, Immature Granulocyte # (Auto) 0.0, Prothrombin Time 17.1H, INR Comment 1.3, Activated Partial Thromboplast Time 35, Sodium Level 139, Potassium Level 3.3L, Chloride Level 107, Carbon Dioxide Level 22, Anion Gap 10, Blood Urea Nitrogen 10, Creatinine 1.23, Estimat Glomerular Filtration Rate 60, BUN/Creatinine Ratio 8, Glucose Level 86, Calcium Level 9.3, Corrected Calcium 9.4, Magnesium Level 1.9, Total Bilirubin 0.4, Aspartate Amino Transf (AST/SGOT) 13, Alanine Aminotransferase (ALT/SGPT) 11, Alkaline Phosphatase 88, Troponin I < 0.028, Total Protein 6.9, Albumin 3.9, Triglycerides Level 187H, Cholesterol Level 131, LDL Cholesterol Direct 90, VLDL Cholesterol 37, HDL Cholesterol 29L, Digoxin Level 0.63L, Serum Alcohol < 10 02/27/22 05:03: Urine Color YELLOW, Urine Clarity CLEAR, Urine pH 6.5, Urine Specific [place] <=1.005, Urine Protein NEGATIVE, Urine Glucose (UA) NEGATIVE, Urine Ketones NEGATIVE, Urine Nitrite NEGATIVE, Urine Bilirubin NEGATIVE, Urine Urobilinogen 0.2, Urine Leukocyte Esterase TRACEH, Urine RBC (Auto) TRACE-IH, Urine RBC RARE, Urine WBC RARE, Urine Crystals NONE, Urine Bacteria NEGATIVE, Urine Casts NONE, Urine Mucus NEGATIVE, Urine Culture Indicated NO, Urine Opiates Screen NEGATIVE, Urine Oxycodone Screen NEGATIVE, Urine Methadone Screen NEGATIVE, Urine Propoxyphene Screen NEGATIVE, Urine Barbiturates Screen NEGATIVE, Ur Tricyclic Antidepressants Screen NEGATIVE, Urine Phencyclidine Screen NEGATIVE, Urine Amphetamines Screen NEGATIVE, Urine Methamphetamines Screen NEGATIVE, Urine Benzodiazepines Screen NEGATIVE, Urine Cocaine Screen NEGATIVE, Urine Cannabinoids Screen NEGATIVE ECG Impression ECG Initial ECG Rhythm: Normal Sinus Physical Exam Physical Exam Vital Signs Vital Signs - First Documented 02/27/22 02/27/22 02/27/22 04:13 05:15 10:48 Temp 36.5 Pulse 68 Resp 18 B/P (MAP) 186/96 (126) Pulse Ox 98 O2 Delivery Room Air FiO2 21 Capillary Refill : Less Than 3 Seconds Height, Weight, BMI Height: 6'0" Weight: 180lbs. 4.0oz. [id number]; 23.58 BMI Method:Stated General Appearance: No Apparent Distress, WD/WN HEENT: Normal ENT Inspection Neck: Non Tender, Supple Respiratory: Chest Non Tender, Lungs Clear Cardiovascular: Regular Rate, Rhythm, No Edema, No Gallop Gastrointestinal: Non Tender, Soft A/P-Cardiology Admission Diagnosis CVA PAF CAD HTN Assessment/Plan CVA, presented to ER with c/o left sided weakness, tingling to lips, onset of symptoms 02/25/22. 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 No intervention warranted per [facility] stroke neurology. Patient has been maintained on Eliquis as outpatient, reports compliance with medications. Paroxysmal atrial fibrillation/flutter. Has been maintained on digoxin and Cardizem as outpatient. Patient has history of multiple breakthrough with atrial flutter, he has seen Dr. Grover and Dr. Tilley in the past. Intolerant to amiodarone, unable to take class Ic antiarrhythmic medication due to recurrent angina. Has been on Eliquis as an outpatient. I referred him to EP in the past for possible ablation and patient did not go. Currently in SR. History of chest pain, he was scheduled for stress test multiple times and did not show up. I did not see him for the past year but he reported that he has been feeling better and no chest pain was reported Coronary artery disease, history of CABG, multiple cardiac catheterization in the past, last cardiac catheterization September 2016 showing severe [place]-apache disease with patent vein graft to the right coronary artery, diagonal artery, LAD and occluded vein graft to the obtuse marginal branch which is probably the reason of his chest pain. Medical therapy is recommended Intolerance to Brilinta causing increased dyspnea Sinus node dysfunction with episode of bradycardia. Intolerant to beta blockers in the past, intolerant to amiodarone. Hypertension, restart home medications and continue to monitor. Hyperlipidemia, monitor lipids Peripheral arterial disease Degenerative joint disease Diabetes mellitus History of pancreatitis Thank you for allowing us to participate in the management of Mr. Tolentino. This is Varsha Guerrero PA-C, as a scribe for Dr. Stiles Patient was seen and evaluated with Varsha, I examined and interviewed the patient, discussed the management plan, agree with the current scribed note Patient presented with CVA with mild residual weakness. Has been on Eliquis. Has history of recurrent angina and chest pain Patient reported that he has been compliant with his medication. I will evaluate 2D echo, add aspirin daily, restart home medication and monitor. Clinical Quality Measures Stroke: Date of last known well: Feb 25, 2022 Time of last known well: 17:00 VARSHA KAT Feb 27, 2022 08:31 BISI STILES MD Feb 27, 2022 11:57
--- NOTE | 2022-02-27 10:11 | History & Physical-Hospitalist ---
History of Present Illness HPI/Chief Complaint Patient is a 81-year-old male with past medical history of hypertension, insulin-dependent diabetes, paroxysmal A. fib who presented to the emergency department due to left-sided weakness. 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 stroke neurology was contacted and stated he was not a candidate for intervention. They did recommend inpatient admission for anticoagulation and further therapy. He elected to leave AMA from that visit. He went home and thought that he was more unsteady and that his vision was somewhat blurry. He decided to return to the emergency department for further evaluation and was then agreeable to admission. This morning he reports that his symptoms are much improved. He is scheduled for MRI. His only complaint is that he is hungry. Source: patient Date Seen 02/27/22 Time Seen by a Provider: 10:02 Attending Physician Janes Delgado MD PCP Admitting Physician: Camelia Joseph MD Attending Physician: Camelia Joseph MD Referring Physician Date of Admission Feb 27, 2022 at 04:20 Home Medications & Allergies Home Medications Reviewed patient Home Medication Reconciliation performed by pharmacy medication reconciliations manufacturing maintenance technician and/or nursing. Patients Allergies have been reviewed. Allergies Allergies Coded Allergies celecoxib (Unverified Allergy, Mild, TAKES ASPIRIN AT HOME, 01/28/19) diclofenac (Unverified Allergy, Mild, TAKES ASPIRIN AT HOME, 01/28/19) naproxen (Unverified Allergy, Mild, TAKES ASPIRIN AT HOME, 01/28/19) rosuvastatin (Unverified Allergy, Mild, 01/28/19) Penicillins (Verified Allergy, Unknown, 01/28/19) amoxicillin (Verified Allergy, Unknown, 01/28/19) fenofibrate (Unverified Allergy, Unknown, 01/28/19) gemfibrozil (Unverified Allergy, Unknown, 10/15/19) simvastatin (Unverified Allergy, Unknown, 01/28/19) Past Ewhxhhn-Avniqi-Isoihu Hx Patient Social History Tobacco Use?: No Use of E-Cig and/or Vaping dev: No Substance use?: No Alcohol Use?: No Pt feels they are or have been: No Immunizations Up To Date Date of Influenza Vaccine: Mar 08, 2018 First/Initial COVID19 Vaccinat: 2020 Second COVID19 Vaccination Danilo: 2020 Tetanus Booster (TDap): Less Than 5 Years Hepatitis A: No Hepatitis B: No PED Vaccines UTD: No Date of Pneumonia Vaccine: May 22, 2017 Seasonal Allergies Seasonal Allergies: No Current Status Advance Directives: No Communicates: Verbally Primary Language: Tanzanian Preferred Spoken Language: Tanzanian Is interpretation needed?: No Sensory deficits: Vision impairment Implanted or Applied Medical D: Stents Past Medical History Surgeries: Abdominal, Angioplasty, Cardiac, CABG, Coronary Stent, Eye Surgery, Gallbladder, Joint Replacement, Open Heart Surgery, Orthopedic, Vascular Surgery Sleep Apnea, COPD Currently Using CPAP: No Currently Using BIPAP: No Atrial Fibrillation, Chronic Edema/Swelling, Coronary Artery Disease, Heart Attack, High Cholesterol, Hypertension, Peripheral Vascular Neuropathy, Stroke, TIA Sexually Transmitted Disease: No HIV/AIDS: No Benign Prostatic Hyperpl, Prostate Problems, Renal Failure Abdominal Hernia, Gastroesophageal Reflux, Chronic Constipation, Diverticulosis, Pancreatitis, Polyps, Esophagitis, Hiatal Hernia, Gall Bladder Disease Degenerate Disk Disease, Arthritis, Chronic Back Pain Diabetes, Insulin dep Cataract Loss of Vision: Denies Hearing Impairment: Denies Anxiety, Depression Blood Disorders: No Adverse Reaction/Blood Tranf: No (N/A) Family Medical History Cancer G8 BROTHER Cataract 19 FATHER 19 MOTHER G8 BROTHER G8 BROTHER G8 SISTER Congestive heart failure 19 FATHER 19 MOTHER Family history: Arthritis 19 FATHER 19 MOTHER G8 BROTHER G8 BROTHER G8 SISTER G8 SISTER DAUGHTER SON Family history: Breast disease DAUGHTER Family history: Cardiovascular disease 19 FATHER Family history: Diabetes mellitus 19 FATHER G8 BROTHER G8 SISTER Family history: Hypertension 19 FATHER 19 MOTHER G8 BROTHER G8 BROTHER G8 SISTER G8 SISTER DAUGHTER SON Family history: Thyroid disorder DAUGHTER Heart disease 19 FATHER 19 MOTHER G8 BROTHER Hypercholesterolemia 19 FATHER 19 MOTHER G8 BROTHER G8 BROTHER G8 SISTER Myocardial infarction 19 FATHER 19 MOTHER G8 BROTHER No Family History of: Abdominal aortic aneurysm [place]'s disease Alcoholism Aphasia Cancer of colon Chest pain Congenital heart disease Cystic fibrosis Dementia Dysphagia Family history: Allergy Family history: Alzheimer's disease Family history: Asthma Family history: Coronary thrombosis Family history: Gastrointestinal disease Family history: Glaucoma Family history: Osteoporosis Headache Hearing loss Hereditary disease History of - anemia History of - disorder History of - respiratory disease History of drug abuse Human immunodeficiency virus (HIV) seropositivity Infertile Kidney disease Malignant neoplasm of lung Parkinson's disease Prostate cancer Psychotic disorder Seizure disorder Stroke Tuberculosis Visual impairment CAD Over 55 Years Old PAST SURGICAL HISTORY: -CARDIAC CATHS--STENTS IN HEART AND IN LEGS. LAST CARDIAC CATH 03/03/20--PATENT STENTS/GRAFTS, NO INTERVENTION -CABG -LINQ DEVICE IMPLANTED -LUMBAR LAMINECTOMY -BILATERAL TOTAL KNEE REPLACEMENTS -EGD'S WITH DILATIONS--LAST ONE 10/2019. -HIATAL HERNIA REPAIR/MAURISIO FUNDOPLICATION 2004 - Review of Systems Constitutional: No see HPI, No fever EENTM: no symptoms reported Respiratory: No cough, No short of breath Cardiovascular: No chest pain, No edema; Hx of Intervention; No palpitations, No syncope Gastrointestinal: no symptoms reported Genitourinary: no symptoms reported Musculoskeletal: see HPI Skin: no symptoms reported Psychiatric/Neurological: See HPI Physical Exam Physical Exam Vital Signs Vital Signs - First Documented 02/27/22 02/27/22 02/27/22 04:13 05:15 10:48 Temp 36.5 Pulse 68 Resp 18 B/P (MAP) 186/96 (126) Pulse Ox 98 O2 Delivery Room Air FiO2 21 Capillary Refill : Less Than 3 Seconds Height, Weight, BMI Height: 6'0" Weight: 180lbs. 4.0oz. 81.175330pe; 23.58 BMI Method:Stated General Appearance: No Apparent Distress, WD/WN HEENT: PERRL/EOMI, Moist Mucous Membranes Neck: Normal Inspection, Supple Respiratory: Lungs Clear, No Accessory Muscle Use, No Respiratory Distress Cardiovascular: Regular Rate, Rhythm, No Murmur Gastrointestinal: Normal Bowel Sounds, Non Tender, Soft Neurologic/Psychiatric: Alert, Oriented x3, Normal Mood/Affect; No Aphasia; Motor Weakness (left upper 4/5 and left lower extremity 4+/5, right WNL) Skin: Normal Color, Warm/Dry Results Results/Procedures Labs Laboratory Tests 02/27/22 04:15 02/28/22 05:15 Patient resulted labs reviewed. Imaging: Reviewed Imaging Report Imaging [facility], [place] NAME: CASTRO PADRON [facility] REC#: [id number] PT STATUS: REG ER : 1940 PHYSICIAN: RODOLFO CUELLO MD ADMIT DATE: 02/26/22/ER Signed Date of Exam:02/26/22 CT HEAD WO-R/O STROKE EXAMINATION: CT head without contrast. TECHNIQUE: Multiple contiguous axial images were obtained through the brain without the use of intravenous contrast. All CT scans use one or more of the following dose optimizing techniques: automated exposure control, MA and/or KvP adjustment based on patient size and exam type or iterative reconstruction. HISTORY: Neurologic deficit. COMPARISON: 11/12/2020. FINDINGS: The rogers-white matter differentiation is normal. No mass effect or midline shift. There is age related cerebral atrophy with ex vacuo dilation of the ventricles. Periventricular white matter hypoattenuation is in keeping with chronic small vessel ischemic changes. Basilar cisterns are patent. There is no intra-axial or extra-axial fluid collection. There is no intracranial hemorrhage. The orbits are normal. Paranasal sinuses are normal. Mastoid air cells are clear. No soft tissue abnormality is seen. No osseus lesion or fracture is seen. IMPRESSION: No acute intracranial abnormality. Dictated by: Dictated on workstation # [id number] Dict: 02/26/221803 Trans: 02/26/221940 [facility] [id number] Interpreted by: JESS GARCÍA MD Electronically signed by: JESS GARCÍA MD 02/26/221940 [facility], [place] NAME: CASTRO PADRON [facility] REC#: [id number] PT STATUS: REG ER : 1940 PHYSICIAN: RODOLFO CUELLO MD ADMIT DATE: 02/26/22/ER Signed Date of Exam:02/26/22 CT ANGIO HEAD/NECK EXAMINATION: CT angiography head and neck with and without contrast. TECHNIQUE: After intravenous administration of contrast, thin section axial CT angiography of the head and neck was performed. Source data was reformatted into 3D MIP projections. All CT scans use one or more of the following dose optimizing techniques: automated exposure control, MA and/or KvP adjustment based on a patient size and exam type, or iterative reconstruction. Any measurements of internal carotid artery stenosis are provided according to NASCET criteria. CT angiogram was post-processed using AI detection software to include quantitative measurements of cerebral blood flow and automated results notification to the stroke and/or neurointerventional team. HISTORY: Left sided weakness. COMPARISON: None available. FINDINGS: There is moderate stenosis of both internal carotid arteries. Vertebral arteries are normal without stenosis. Intracranial internal carotid arteries are normal. The middle cerebral arteries are normal. There is focal occlusion or severe stenosis of the right P1. The anterior cerebral arteries are normal. There is no large vessel occlusion. No aneurysm or vascular malformation is seen. The rogers-white matter differentiation is normal. No mass effect or midline shift. The ventricles are normal in size and configuration. Basilar cisterns are patent. There is no intra-axial or extra-axial fluid collection. There is no intracranial hemorrhage. The orbits are normal. Paranasal sinuses are normal. Mastoid air cells are clear. No soft tissue abnormality is seen. No osseus lesion or fracture is seen. No lymphadenopathy is seen in the neck. The muscles of the neck are normal. Fascial planes are preserved and the deep spaces of the neck are normal. Limited views of the superior thorax are unremarkable. There is no suspicious osseous lesion. IMPRESSION: 1. Occlusion versus severe stenosis of the right P1. Other intracranial vessels are intact. 2. Moderate stenosis of both internal carotid arteries. Findings called to Dr. Fairchild by Dr. García on 02/26/2022 at 6:50 PM Dictated by: Dictated on workstation # [id number] Dict: 02/26/221842 Trans: 02/26/221940 [facility] [id number] Interpreted by: JESS GARCÍA MD Electronically signed by: JESS GARCÍA MD 02/26/221940 Assessment/Plan Admission Diagnosis stroke Admission Status: Inpatient Order (span 2 midnights) Reason for Inpatient Admission: see below Assessment and Plan stroke stroke orderset used CTA with occlusion very severe stenosis of right P1 No intervention warranted per [facility] stroke neurology, just anticoagulation has statin allergy so unable to give statin, also unable to give ASA due to allergies Already on anticoagulation MRI ordered PT/OT/ST pAF CAD HTN HLD Cardiology consulted, appreciate recs On Cardizem and digoxin at home Currently in sinus rhythm telemetry IDDMII Continue home meds when med rec done BPH Flomax Clinical Quality Measures Stroke: Date of last known well: Feb 25, 2022 Time of last known well: 17:00 BARBARA HILLS MD Feb 27, 2022 10:11
[2022-02-27] MEDS ORDERED: ACETAMINOPHEN 325 MG TABLET PO PRN (10:15)
--- NOTE | 2022-02-27 10:22 | Speech Therapy Progress Note ---
Therapy Progress Note Speech pathology received stroke orders on the patient, reviewed the medical chart, and follow up with the patient's RN. Per stroke protocol, the patient will undergo a RN Dysphagia Screening. Per RN, the Dysphagia Screening has not been completed at this time. The RN stated he will complete the Dysphagia Screening and provide documentation in the patient's chart with the results. The speech pathologist will follow up with the patient's RN in the near future. GEOVANY COYNE Feb 27, 2022 10:22
[2022-02-27 10:40] LABS: CHOLESTEROL 131 MG/DL (< 200); HDL CHOLESTEROL 29 MG/DL (40-60); TRIGLYCERIDES 187 MG/DL (<150); VLDL CHOLESTEROL 37 MG/DL (5-40)
--- NOTE | 2022-02-27 10:53 | Physical Therapy Evaluation ---
PT Evaluation-General Medical Diagnosis Admission Date Feb 27, 2022 at 04:20 Medical Diagnosis: CVA Onset Date: Feb 27, 2022 Therapy Diagnosis Therapy Diagnosis: impaired mobility, coordination Height/Weight Height (Feet): 6 Height (Inches): 0 Weight (Pounds): 180 Weight (Ounces): 4.0 Precautions Precautions/Isolations: Fall Prevention, Standard Precautions Referral Physician: Opal Reason for Referral: Evaluation/Treatment Medical History Additional Medical History Past Medical History Surgeries: Abdominal, Angioplasty, Cardiac, CABG, Coronary Stent, Eye Surgery, Gallbladder, Joint Replacement, Open Heart Surgery, Orthopedic, Vascular Surgery Sleep Apnea, COPD Currently Using CPAP: No Currently Using BIPAP: No Atrial Fibrillation, Chronic Edema/Swelling, Coronary Artery Disease, Heart Attack, High Cholesterol, Hypertension, Peripheral Vascular Neuropathy, Stroke, TIA Sexually Transmitted Disease: No HIV/AIDS: No Benign Prostatic Hyperpl, Prostate Problems, Renal Failure Abdominal Hernia, Gastroesophageal Reflux, Chronic Constipation, Diverticulosis, Pancreatitis, Polyps, Esophagitis, Hiatal Hernia, Gall Bladder Disease Degenerate Disk Disease, Arthritis, Chronic Back Pain Diabetes, Insulin dep Cataract Loss of Vision: Denies Hearing Impairment: Denies Anxiety, Depression Blood Disorders: No Adverse Reaction/Blood Tranf: No (N/A) Reviewed History: Yes Social History Home: Single Level Current Living Status: Children (lives with daughter) Entry Into Home: Stairs Without Railing PT Steps Into Home: 3 Prior Prior Level of Function SCALE: Activities may be completed with or without assistive devices. 0-Qigjkpadli-ivyvbck completes the activity by him/herself with no assistance from a helper. 5-Set-up or Clean-up Assistance-helper sets up or cleans up; patient completes activity. [place] assists only prior to or following the activity. 4-Supervision or Touching Assistance-helper provides verbal cues and/or touching/steadying and/or contact guard assistance as patient completes activity. Assistance may be provided throughout the activity or intermittently. 3-Partial/Moderate Assistance-helper does LESS THAN HALF the effort. [place] lifts, holds or supports trunk or limbs, but provides less than half the effort. 2-Substantial/Maximal Assistance-helper does MORE THAN HALF the effort. [place] lifts or holds trunk or limbs and provides more than half the effort. 5-Kkjrqzqlf-covfhg does ALL the effort. Patient does none of the effort to complete the activity. Or, the assistance of 2 or more helpers is required for the patient to complete the activity. If activity was not attempted, code reason: 7-Patient Refused. 9-Not Applicable-not attempted and the patient did not perform the activity b efore the current illness, exacerbation or injury. 10-Not Attempted due to Environmental Limitations-(lack of equipment, weather restraints, etc.). 88-Not Attempted due to Medical Conditions or Safety Concerns. Bed Mobility: 6 Transfers (B,C,W/C): 6 Gait: 6 Stairs: 6 Indoor Mobility (Ambulation): Independent Stairs: Independent used a SPC PT Evaluation-Current Subjective Patient in bed pre tx, agrees to PT, has no complaints of pain but does state he has a slight headache. Pt/Family Goals to be independent at home Objective Patient Orientation: Person, Place, Situation Attachments: SCD's ROM/Strength ROM Lower Extremities WNL Strength Lower Extremities LLE (hip flexion 4/5, knee flexion 4+/5, knee extension 5/5, dorsiflexion 5/5), RLE (hip flexion 4/5, knee flexion 4+/5, knee extension 5/5, dorsiflexion 5/5) Neuromuscular (Tone, Coordination, Reflexes) Patient had poor visual tracking on both side, impaired peripheral vision on the left side and possibly on the right side too, patient has decreased coordination tested with touch nose/finger Sensory Vision: Sensation Right Lower Extremit: Impaired Sensation Left Lower Extremity: Intact Transfers Roll Left to Right (QC): 6 Sit to Lying (QC): 6 Lying to Sitting/Side of Bed(Q: 6 Sit to Stand (QC): 4 Chair/Fkf-ik-Himzq Xfer(QC): 4 CGA for sit to stand and transfers Gait Does the Patient Walk?: Yes Mode of Locomotion: Walk Anticipated Mode of Locomotion: Walk Walk 10 feet (QC): 4 Walk 50 ft with 2 Turns(QC): 4 Walk 150 ft (QC): 4 Distance: 200' Gait Assistive Device: FWW Comments/Gait Description CGA, slightly unsteady when turning, no LOB but steadying assist Balance Sitting Static: Normal Sitting Dynamic: Normal Standing Static: Fair Standing Dynamic: Fair Treatment Patient also used the restroom, didn't need assist with pants, washed hands on his own Assessment/Needs Patient in recliner post tx with nurse call, phone, tray, all needs met, patient cued to use nurse call if he needs to get up due to unsteadiness. Patient has impaired mobility, balance, however just CGA with transfers and ambulation Rehab Potential: Fair PT Vault Custodian Goals Vault Custodian Goals PT Vault Custodian Goals Time Frame: Mar 06, 2022 Roll Left & Right (QC): 6 Sit to Lying (QC): 6 Lying-Sitting on Side/Bed(QC): 6 Sit to Stand (QC): 6 Chair/Rel-uq-Eqnku Xfer(QC): 6 Walk 10 feet (QC): 6 Walk 50ft with 2 Turns (QC): 6 Walk 150 ft (QC): 6 PT Plan Problem List Problem List: Activity Tolerance, Functional Strength, Safety, Balance, Gait, Transfer, ROM Treatment/Plan Treatment Plan: Continue Plan of Care Treatment Plan: Bed Mobility, Education, Functional Activity Lisseth, Functional Strength, Gait, Safety, Therapeutic Exercise, Transfers Treatment Duration: Mar 06, 2022 Frequency: 6 times per week Estimated Hrs Per Day: .25 hour per day Patient and/or Family Agrees t: Yes Safety Risks/Education Patient Education: Gait Training, Transfer Techniques, Correct Positioning, Safety Issues Teaching Recipient: Patient Teaching Methods: Demonstration, Discussion Response to Teaching: Reinforcement Needed Discharge Recommendations Plan Patient will perform bed mobility and transfer training, balance and endurance training, functional strengthening, stair training, gait training, and education, to improve functional mobility and independence at home. Therapy Discharge Recommendati: Home & Family, Post Acute PT Time/GCodes Time In: 1020 Time Out: 1034 Total Billed Treatment Time: 14 Total Billed Treatment 1 visit REN BOSWELL PT Feb 27, 2022 10:53
[2022-02-27] MEDS ORDERED: RT-ALBUTEROL/IPRATROPIUM 3 ML (DUONEB) VIAL INH PRN (11:00)
--- NOTE | 2022-02-27 11:15 | Occupational Therapy Eval ---
OT Evaluation-General/PLF Medical Diagnosis Admission Date Feb 27, 2022 at 04:20 Medical Diagnosis: CVA Onset Date: Feb 27, 2022 Therapy Diagnosis Therapy Diagnosis: Reduced ADL status Height/Weight Height (Feet): 6 Height (Inches): 0 Weight (Pounds): 180 Weight (Ounces): 4.0 Precautions Precautions/Isolations: Fall Prevention, Standard Precautions Referral Physician: Opal Referral Reason: Evaluation/Treatment Medical History Pertinent Medical History: Atrial Fib, Arthritis, CAD, DM, HTN Current History Pt came to ER with signs of a stroke with blurry vision and weakness. Pt lives with daughter and reported being independent with all ADLs/IADLs. He was further questioned about if his daughter assists him with anything and he reported no. He uses a cane at home and has a walker at home that he does not use. He stands to shower and reports not having a shower chair. Reviewed History: Yes Social History Home: Single Level Current Living Status: Children (lives with daughter) Entry Into Home: Stairs Without Railing Steps Into Home: 3 ADL-Prior Level of Function SCALE: Activities may be completed with or without assistive devices. 5-Rvsmkjsdli-iqzutoj completes the activity by him/herself with no assistance from a helper. 5-Set-up or Clean-up Assistance-helper sets up or cleans up; patient completes activity. [place] assists only prior to or following the activity. 4-Supervision or Touching Assistance-helper provides verbal cues and/or touching/steadying and/or contact guard assistance as patient completes activity. Assistance may be provided throughout the activity or intermittently. 3-Partial/Moderate Assistance-helper does LESS THAN HALF the effort. [place]ishers lifts, holds or supports trunk or limbs, but provides less than half the effort. 2-Substantial/Maximal Assistance-helper does MORE THAN HALF the effort. [place]ishers lifts or holds trunk or limbs and provides more than half the effort. 3-Bqjbhqsrp-cksrzh does ALL the effort. Patient does none of the effort to complete the activity. Or, the assistance of 2 or more helpers is required for the patient to complete the activity. If activity was not attempted, code reason: 7-Patient Refused. 9-Not Applicable-not attempted and the patient did not perform the activity before the current illness, exacerbation or injury. 10-Not Attempted due to Environmental Limitations-(lack of equipment, weather restraints, etc.). 88-Not Attempted due to Medical Conditions or Safety Concerns. Self Care: Independent Functional Cognition: Independent DME/Equipment: Tub/Shower Drive Self: Yes OT Current Status Subjective Pt sitting EOB upon arrival. He agrees to therapy eval. Appearance Pt was left sitting in recliner with instructions given to use call light for safety. All needs within reach. Mental Status/Objective Patient Orientation: Person, Place, Time, Situation Attachments: IV, Telemetry Current Glasses/Contacts: Yes Hand Dominance: Right Upper Extremity ROM WNL at shoulders Upper Extremity Coordination Pt has decreased coordination with finger to nose test Fair dysdiadochokinesia. 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 PT conducted visual testing and pt showed poor visual tracking to R and L and impaired peripheral vision on the left side and possibly on the right side too ADL-Treatment On/Off Footwear (QC): 6 Toileting Hygiene (QC): 6 Sit<>stand: SBA for safety. Pt shows slight LOB during ambulation and transfers due to pt's fast nature of movements and impulsivity. Pt able to doff/don socks by reaching down to floor with independence. He does c/o of some LE weakness but is able to perform all ADLs with independence and reported feeling fine with "everything". Pt ambulated to bathroom with FWW and completed all steps of transfer, toileting hygiene and washing of hands with independence. Pt is impulsive with movements, unsteady on feet, and does not appear to want to use walker with ambulation, due to often leaving it to the side. Pt would benefit from short term skilled OT services for balance training and increased education about safety during functional transfers and ADLs to ensure safety for return home. Education OT Patient Education: Correct positioning, Energy conservation, Modified ADL techniques, Progress toward Goal/Update tx plan, Purpose of tx/functional activities, Reviewed precautions, Rehab process, Safety issues Teaching Recipient: Patient Teaching Methods: Demonstration, Discussion Response to Teaching: Verbalize Understanding, Return Demonstration, Reinforcement Needed OT Jail Goals Jail Goals Time Frame: Mar 06, 2022 Oral Hygiene (QC): 6 Upper Body Dressing (QC): 6 Lower Body Dressing (QC): 6 Additional Goals: 1-Demonstrate ADL Tasks, 2-Verbalize Understanding, 3- ImproveStrength/Lisseth 1=Demonstrate adherence to instructed precautions during ADL tasks. 2=Patient will verbalize/demonstrate understanding of assistive devices/modifications for ADL. 3=Patient will improve strength/tolerance for activity to enable patient to perform ADL's. OT Education/Plan Problem List/Assessment Assessment: Decreased Safety Aware, Impaired Coordination, Impaired Funct Balance, Impaired I ADL's, Impaired Self-Care Skills Discharge Recommendations Plan/Recommendations: Continue POC Therapy Discharge Recommendati: Bath Aide, Homemaker Support, Home & Family Equpiment Recommendations-D/C: Bath Chair Treatment Plan/Plan of Care Treatment,Training & Education: Yes Patient would benefit from OT for education, treatment and training to promote independence in ADL's, mobility, safety and/or upper extremity function for ADL's. Plan of Care: ADL Retraining, Caregiver Training, Functional Mobility, Group Exercise/Act as Ind, UE Funct Exercise/Act Treatment Duration: Mar 06, 2022 Frequency: 3 times per week (3-5x/week) Estimated Hrs Per Day: .25 hour per day Agreement: Yes Rehab Potential: Fair Time/GCodes Start Time: 10:24 Stop Time: 10:36 Total Time Billed (hr/min): 12 Billed Treatment Time 1 visit Abida Avitia OT Feb 27, 2022 11:15
[2022-02-27] MEDS: RT-ALBUTEROL/IPRATROPIUM 3 ML (DUONEB) VIAL INH SCH ×3 (11:32→21:43)
[2022-02-27] MEDS ORDERED: FEXO-338 PO (11:42)
[2022-02-27] MEDS ORDERED: DILT240C53 PO (11:42)
[2022-02-27] MEDS ORDERED: RT-ALBUINH INH (11:42)
[2022-02-27] MEDS ORDERED: CYCL5TAB PO (11:42)
[2022-02-27] MEDS ORDERED: BUDE10.2 INH (11:42)
[2022-02-27] MEDS ORDERED: PANT40TA2 PO (11:42)
[2022-02-27] MEDS ORDERED: TMSL.4C PO (11:42)
[2022-02-27] MEDS ORDERED: IPRA3AMP31 NEB (11:43)
[2022-02-27] MEDS: ENOXAPARIN 80 MG/0.8 ML (LOVENOX) SYR SC SCH ×2 (13:01→22:56)
[2022-02-27] MEDS: ASPIRIN E.C. 81 MG (ECOTRIN) TAB PO SCH (13:01)
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
--- NOTE | 2022-02-27 13:57 | Diagnostic Imaging Report ---
CLINICAL INDICATION: Patient with left-sided weakness/CVA. EXAM: MRI of the brain performed without IV contrast. Sequences include sagittal T1, axial T2, axial FLAIR, axial gradient echo, DWI, ADC map, and axial T1. COMPARISON: CT angiogram of the head/neck dated 02/26/2022. FINDINGS: There is a small patchy area of diffusion restriction involving the right occipital lobe. There are small patchy areas of diffusion restriction involving the medial posterior right temporal lobe, posterior right thalamus, and a small focal area involving the posterior left frontal lobe [place] radiata region. There is a small amount of increased T2 signal in the region. There is brain parenchymal volume loss. There are multiple focal, patchy, and confluent areas of high T2 signal white matter changes involving both cerebral hemispheres and periventricular regions, likely representing chronic small vessel ischemic disease and leukoaraiosis. There is no hydrocephalus. Basal cisterns are unremarkable. The right WEIGHER AND CRUSHER flow void is not seen, which correlates to occlusion seen on comparison CT angiogram of the head/neck. There is no evidence of intracranial hemorrhage. There is no brain herniation or midline shift. The extracranial soft tissue, skull, and orbits are unremarkable. Paranasal sinuses and mastoid air cells are clear. IMPRESSION: 1: There are small patchy areas of acute cerebral infarct involving the right occipital lobe and medial right temporal lobe region. There are small areas of infarct involving the posterior aspect of the right thalamus. There is a small amount of increased T2 signal in the region. There is no intraparenchymal hemorrhage. 2: There is a small focal area of infarct involving the posterior left frontal lobe cov[place] radiata region. 3: Patient has known occlusion of the right P1 WEIGHER AND CRUSHER region. 4: Chronic small vessel ischemic disease and leukoaraiosis. Dictated by: Dictated on workstation # [id number]
[2022-02-28 03:50] VITALS: BP 173/95
[2022-02-28] MEDS: inSUlin ASPART (NovoLOG) 1 UNIT/0.01 ML (CHARGE PER UNIT) SC SCH ×4 (05:32→21:00)
[2022-02-28] MEDS: CATHETER FLUSH 10 ML SYR IVP SCH ×3 (05:32→21:20)
[2022-02-28 05:56] LABS: BASOPHILS % (AUTO) 1 % (0-10); EOSINOPHILS # (AUTO) 0.1 10^3/uL (0.0-0.3); EOSINOPHILS % (AUTO) 2 % (0-10); HEMATOCRIT 41 % (40-54); HEMOGLOBIN 13.6 g/dL (13.3-17.7); LYMPHOCYTES # (AUTO) 2.3 10^3/uL (1.0-4.0); LYMPHOCYTES % (AUTO) 32 % (12-44); MEAN CORPUSCULAR HEMOGLOBIN 28 pg (25-34); MEAN CORPUSCULAR HGB CONC 33 g/dL (32-36); MEAN CORPUSCULAR VOLUME 86 fL (80-99); MEAN PLATELET VOLUME 10.3 fL (9.0-12.2); MONOCYTES # (AUTO) 0.5 10^3/uL (0.0-1.0); MONOCYTES % (AUTO) 7 % (0-12); NEUTROPHILS # (AUTO) 4.2 10^3/uL (1.8-7.8); NEUTROPHILS % (AUTO) 58 % (42-75); PLATELET COUNT 308 10^3/uL (130-400); WHITE BLOOD COUNT 7.2 10^3/uL (4.3-11.0)
[2022-02-28 06:12] LABS: ALBUMIN 3.8 GM/DL (3.2-4.5); POTASSIUM 3.4 MMOL/L (3.6-5.0)
[2022-02-28 06:14] LABS: CALCIUM 9.3 MG/DL (8.5-10.1)
[2022-02-28 06:15] LABS: TOTAL PROTEIN 6.6 GM/DL (6.4-8.2)
[2022-02-28 06:17] LABS: BILIRUBIN,TOTAL 0.5 MG/DL (0.1-1.0)
[2022-02-28 06:18] LABS: CREATININE SERUM 1.13 MG/DL (0.60-1.30)
[2022-02-28] MEDS: RT-ALBUTEROL/IPRATROPIUM 3 ML (DUONEB) VIAL INH SCH ×4 (06:57→19:12)
[2022-02-28] MEDS ORDERED: RT-ALBUTEROL SULF 2.5 MG/3 ML PRE-MIX VIAL INH PRN (07:45)
[2022-02-28] MEDS ORDERED: NON-FORMULARY MEDICATION 1 EA EA (Budesonide/Formoterol Fumarate (Symbicort 160-4.5 Mcg In INH PRN (07:45)
[2022-02-28] MEDS ORDERED: RT--FLUTICASONE/SALMETEROL 232-14 (AIRDUO RespiCLICK) IH PRN (08:00)
[2022-02-28] MEDS: APIXABAN 5 MG (ELIQUIS) TABLET PO SCH ×2 (08:14→20:59)
[2022-02-28] MEDS: ASPIRIN E.C. 81 MG (ECOTRIN) TAB PO SCH (08:14)
[2022-02-28] MEDS: PANTOPRAZOLE 40 MG (PROTONIX) TAB PO SCH (08:14)
[2022-02-28 08:20] VITALS: BP 157/95
--- NOTE | 2022-02-28 08:36 | Cardiology Progress Note ---
Subjective Date Seen by Provider: Feb 28, 2022 Time Seen by Provider: 08:32 Subjective/Events-last exam Patient is sitting up in bed, currently in Aflutter with rate in 140s. Denies any chest pain Objective-Cardiology Exam Last Set of Vital Signs Vital Signs 02/27/22 02/28/22 02/28/22 10:48 08:20 08:59 Temp 36.4 Pulse 95 Resp 18 B/P (MAP) 173/84 Pulse Ox 98 O2 Delivery Room Air FiO2 21 I&O Intake and Output 02/28/22 00:00 Intake Total 1120 ml Balance 1120 ml Intake Oral 1120 ml # Voids 5 Daily Weight Change Yes, 2-13 lbs General: Alert, Oriented X3 HEENT: Atraumatic Neck: Supple, No JVD Lungs: Clear to Auscultation, Normal Air Movement Heart: Normal S1, Normal S2, Other (irregular) Abdomen: Normal Bowel Sounds, Soft Extremities: No Clubbing, No Cyanosis, No Edema Skin: No Rashes, No Significant Lesion Neuro: Normal Gait, Normal Speech Psych/Mental Status: Mental Status NL, Mood NL Results Lab Laboratory Tests 02/28/22 05:15 A/P-Cardiology Admission Diagnosis CVA PAF CAD HTN Assessment/Plan CVA, presented to ER with c/o left sided weakness, tingling to lips, onset of symptoms 02/25/22. 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 No intervention warranted per [facility] stroke neurology. Patient has been maintained on Eliquis as outpatient, reports compliance with medications. Paroxysmal atrial fibrillation/flutter. Has been maintained on digoxin and Cardizem as outpatient. Patient has history of multiple breakthrough with atrial flutter, he has seen Dr. Grover and Dr. Tilley in the past. Unable to take class Ic antiarrhythmic medication due to recurrent angina. Has been on Eliquis as an outpatient. I referred him to EP in the past for possible ablation and patient did not go. Currently in aflutter with rate in 140s. I will start on Amio drip. Transferred to ICU History of chest pain, he was scheduled for stress test multiple times and did not show up. I did not see him for the past year but he reported that he has been feeling better and no chest pain was reported Coronary artery disease, history of CABG, multiple cardiac catheterization in the past, last cardiac catheterization September 2016 showing severe [place] disease with patent vein graft to the right coronary artery, diagonal artery, LAD and occluded vein graft to the obtuse marginal branch which is probably the reason of his chest pain. Medical therapy is recommended Intolerance to Brilinta causing increased dyspnea Sinus node dysfunction with episode of bradycardia. Intolerant to beta blockers in the past, intolerant to amiodarone. Hypertension, restart home medications and continue to monitor. Hyperlipidemia, monitor lipids Peripheral arterial disease Degenerative joint disease Diabetes mellitus History of pancreatitis Supervisory-Addendum Brief Supervisory Addendum Participated in pt care: history, MDM, physical Personally performed: exam, history, MDM Care discussed with: NANCY Results interpretation: Verified all documentation Notes: Patient was seen and evaluated with Radha, examination performed, management plan was discussed, agree with the current scribed note, I made few changes to the note using Italic font Patient was seen at bedside, sitting comfortably, noted to be in atrial flutter with rapid ventricular response He was transferred to ICU and started on amiodarone bolus and a drip I will continue with oral amiodarone, continue on oral anticoagulation and add aspirin RADHA KAT Feb 28, 2022 08:36 BISI GARCIA MD Feb 28, 2022 09:12
--- NOTE | 2022-02-28 08:53 | Progress Note - Hospitalist ---
Subjective HPI/CC On Admission Date Seen by Provider: Feb 28, 2022 Patient is a 81-year-old male with past medical history of hypertension, insulin-dependent diabetes, paroxysmal A. fib who presented to the emergency department due to left-sided weakness. 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 stroke neurology was contacted and stated he was not a candidate for intervention. The y did recommend inpatient admission for anticoagulation and further therapy. He elected to leave AMA from that visit. He went home and thought that he was more unsteady and that his vision was somewhat blurry. He decided to return to the emergency department for further evaluation and was then agreeable to admission. This morning he reports that his symptoms are much improved. He is scheduled for MRI. His only complaint is that he is hungry. Subjective/Events-last exam Pt reports doing well. No complaints. Shortly after my visit he went to a flutter with RVR. Dr Stiles transferring to ICU. Objective Exam Vital Signs Vital Signs Date Time Temp Pulse Resp B/P (MAP) Pulse Ox O2 Delivery O2 Flow Rate FiO2 02/28/22 08:34 90 02/28/22 08:20 36.4 18 157/95 (115) 98 Room Air 02/27/22 10:48 21 Capillary Refill : Less Than 3 Seconds General Appearance: No Apparent Distress, WD/WN Respiratory: Lungs Clear, No Respiratory Distress Cardiovascular: Regular Rate, Rhythm, No Murmur Extremity: Normal Capillary Refill, No Calf Tenderness Neurologic/Psychiatric: Alert, Oriented x3 Results/Procedures Lab Laboratory Tests 02/28/22 05:15 Patient resulted labs reviewed. Imaging: Reviewed Imaging Report Assessment/Plan Assessment and Plan Assess & Plan/Chief Complaint Acute CVA CTA with occlusion very severe stenosis of right P1 No intervention warranted per [facility] stroke neurology, just anticoagulation has statin allergy so unable to give statin, also unable to give ASA due to allergies MRI confirmed acute CVA Continue anticoagulation PT/OT/ST pAF CAD HTN HLD Cardiology consulted, appreciate recs Transferring to ICU for a flutter with RVR IDDMII Hold home insulin as BS well controlled BPH Flomax DVT ppx: already on anticoagulation Clinical Quality Measures Stroke: Date of last known well: Feb 25, 2022 Time of last known well: 17:00 BARBARA HILLS MD Feb 28, 2022 08:53
--- NOTE | 2022-02-28 08:57 | Physical Therapy Progress Note ---
Therapy Progress Note Patient transferred to ICU. PT will require new orders to resume. NOEL SIDHU PT Feb 28, 2022 08:57
[2022-02-28] MEDS ORDERED: AMIODARONE FOR BOLUS 150 MG in NS (IVPB) 100 ML IV ONE (09:00)
[2022-02-28] MEDS ORDERED: DIGOXIN 0.125 MG (LANOXIN) TAB PO SCH (09:00)
[2022-02-28] MEDS ORDERED: FENOFIBRIC ACID 135 MG PO SCH (09:00)
--- NOTE | 2022-02-28 09:07 | Occ Therapy Progress Note ---
Therapy Progress Note Patient transferred to ICU. OT will require new orders to resume. ANIYAH CHUNG Feb 28, 2022 09:07
--- NOTE | 2022-02-28 10:07 | Speech Therapy Progress Note ---
Therapy Progress Note The patient transferred to ICU (a higher level of care) and ST will require new orders for evaluation and treatment (if warranted). GEOVANY COYNE Feb 28, 2022 10:07
[2022-02-28] MEDS: AMIODARONE INJECTION 450 MG in NORMAL SALINE 250 ML IV SCH ×2 (10:41→17:39)
--- NOTE | 2022-02-28 12:20 | Tele-ICU Consult ---
History of Present Illness History of Present Illness Date Seen by Provider: Feb 28, 2022 Time Seen by Provider: 12:19 Date of Admission . (Tele-ICU Physician , consultation) Available chart/ vitals / labs / Images reviewed H&P is from ER notes Patient's information available about PMH, Shx, Fhx allergy reviewed inEMR. ROS as per chart and RN report Now in ICU, hemodynamically stable Video assessment done using teleICU camera, rest of exam as per RN Discussed with RN. Consultants: Hospital course: A/P CVA, presented to ER with c/o left sided weakness, onset of symptoms 02/25/22. -CTA with occlusion very severe stenosis of right P1. -No intervention warranted per [facility] stroke neurology. - on Eliquis as outpatient, reports compliance with medications- ? FAILED ELIQUIS - with CVA > 48 h ago will not aim for permissive HTN now SBP 170 yesterday PAF /flutter. - aflatter 140 -RVR today --> transfer to IICU - on amio gtt as per cards -on digoxin and Cardizem as outpatient. -on Eliquis (as per chart : chronic , hard to control was referred to EP in the past fo ablation and patient did not go.) as per chart - Sinus node dysfunction with episode of bradycardia. Intolerant to beta blockers in the past, intolerant to amiodarone.) CADm h/o CABG, - as per cards PAD DM II - as per PCP Lines : peripg , (Central Line Necessity Reviewed) Menjivar: OG: Nutrition: Analgesia: Anxiety/ delirium VTE Prophylaxis: eliquis Stress Ulcer Prophylaxis: na Plans in collaboration with bedside consultants and IM MDs. Discussed with RN to reach out if any questions or concerns A total of 20 minutes of critical care time was devoted to this patient today, required to treat and/or prevent further deterioration of critical care condition ( as above ) . I am remotely monitoring this patient from another state. I am unable to do the bedside exam, and history/physical and pertinent information is taken from other notes in the computer and bedside staff. I cannot take responsibility for the accuracy of this information. . Reason for Visit: CVA Allergies and Home Medications Allergies Coded Allergies: celecoxib (Unverified Allergy, Mild, TAKES ASPIRIN AT HOME, 01/28/19) diclofenac (Unverified Allergy, Mild, TAKES ASPIRIN AT HOME, 01/28/19) naproxen (Unverified Allergy, Mild, TAKES ASPIRIN AT HOME, 01/28/19) rosuvastatin (Unverified Allergy, Mild, 01/28/19) Penicillins (Verified Allergy, Unknown, 01/28/19) amoxicillin (Verified Allergy, Unknown, 01/28/19) fenofibrate (Unverified Allergy, Unknown, 01/28/19) gemfibrozil (Unverified Allergy, Unknown, 10/15/19) simvastatin (Unverified Allergy, Unknown, 01/28/19) Home Medications Albuterol Sulfate 6.7 Gm Hfa.aer.ad, 2 PUFF INH Q6H PRN for SHORTNESS OF BREATH, (Reported) Apixaban 5 Mg Tablet, 5 MG PO BID, (Reported) Budesonide/Formoterol Fumarate 160 Mcg-4.5 Mcg/Actuation Hfa.aer.ad, 2 PUFF INH BID PRN for SHORTNESS OF BREATH, (Reported) Clonidine HCl 0.1 Mg Tablet, 0.1 MG PO DAILY PRN for BP OVER 150/90, (Reported) Cyclobenzaprine HCl 5 Mg Tablet, 5-10 MG PO TID PRN for MUSCLE CRAMPS, (Reported) TAKES 1 TO 2 (5MG) TABS Digoxin 125 Mcg Tablet, 125 MCG PO DAILY, (Reported) Diltiazem HCl 240 Mg Cap.er.24h, 240 MG PO DAILY, (Reported) Fenofibric Acid (Choline) 135 Mg Capsule.dr, 135 MG PO DAILY, (Reported) Fexofenadine HCl 60 Mg Tablet, 60 MG PO BID PRN for ALLERGY SYMPTOMS, (Reported) Glipizide 10 Mg Tablet, 10 MG PO DAILY, (Reported) Insulin Detemir 100 Unit/1 Ml Insuln.pen, 35 UNITS SQ BID, (Reported) Ipratropium/Albuterol Sulfate 0.5 Mg-3 Mg (2.5 Mg Base)/3 Ml Ampul.neb, 3 ML NEB Q6H PRN for SHORTNESS OF BREATH, (Reported) Pantoprazole Sodium 40 Mg Tablet.dr, 40 MG PO DAILY, (Reported) Tamsulosin HCl 0.4 Mg Cap, 0.4 MG PO HS, (Reported) Past Medical/Social/Family Hx Patient Social History Marrital Status: Tobacco Use?: No Use of E-Cig and/or Vaping dev: No Substance use?: No Alcohol Use?: No Pt stated abuse/neglect: No Immunizations Up To Date Influenza Vaccine Up-to-Date: No; Not Current First/Initial COVID19 Vaccinat: 2020 Second COVID19 Vaccination Danilo: 2020 Tetanus Booster (TDap): Less Than 5 Years Hepatitis A: No Hepatitis B: No TB Skin Test: None Date of Pneumonia Vaccine: May 22, 2017 Current Status Advance Directives: No Communicates: Verbally Primary Language: Omani Preferred Spoken Language: Omani Is interpretation needed?: No Sensory deficits: Vision impairment Implanted or Applied Medical D: Stents Family Medical History Family Hx: PAST SURGICAL HISTORY: -CARDIAC CATHS--STENTS IN HEART AND IN LEGS. LAST CARDIAC CATH 03/03/20--PATENT STENTS/GRAFTS, NO INTERVENTION -CABG -LINQ DEVICE IMPLANTED -LUMBAR LAMINECTOMY -BILATERAL TOTAL KNEE REPLACEMENTS -EGD'S WITH DILATIONS--LAST ONE 10/2019. -HIATAL HERNIA REPAIR/MAURISIO FUNDOPLICATION 2004 - Review of Systems Constitutional: see HPI Focused Exam Height, Weight, BMI Height: 6'0" Weight: 180lbs. 4.0oz. 81.183803wz; 23.58 BMI Method:Stated Exam Exam Patient acknowledged, consented, and participated in this virtual visit which was conducted using real time audio/video Vital Signs Date Time Temp Pulse Resp B/P (MAP) Pulse Ox O2 Delivery O2 Flow Rate FiO2 02/28/22 11:00 93 160/98 (118) 100 Room Air 02/28/22 10:57 99 Room Air 02/28/22 10:45 100 8 159/70 (99) 98 Room Air 02/28/22 10:30 95 15 146/96 (113) 97 Room Air 02/28/22 10:15 96 14 162/98 (119) 97 Room Air 02/28/22 10:00 105 27 171/99 (123) 98 Room Air 02/28/22 09:45 93 10 172/98 (122) 98 Room Air 02/28/22 09:30 85 13 142/81 (101) 99 Room Air 02/28/22 09:15 90 12 169/94 (119) 99 Room Air 02/28/22 08:59 95 173/84 02/28/22 08:45 105 15 154/102 (119) 99 Room Air 02/28/22 08:34 90 02/28/22 08:30 92 15 178/106 (130) 99 Room Air 02/28/22 08:27 91 02/28/22 08:20 36.4 128 18 157/95 (115) 98 Room Air 02/28/22 08:10 157 02/28/22 08:00 98 Room Air 02/28/22 06:58 95 Room Air 02/28/22 06:58 100 02/28/22 06:24 95 02/28/22 03:57 121 02/28/22 03:50 37.1 81 16 173/95 (121) 99 Room Air 02/28/22 01:00 91 02/27/22 23:44 37.0 77 16 159/77 (104) 99 Room Air 02/27/22 21:43 96 Room Air 02/27/22 20:14 Room Air 02/27/22 20:00 36.7 81 16 179/88 (118) 98 Room Air 02/27/22 19:01 85 02/27/22 15:56 36.6 83 14 177/93 (121) 99 Room Air 02/27/22 15:15 98 Room Air I & O0 02/28/22 07:00 Intake Total 1520 ml Balance 1520 ml Height & Weight Height: 6'0" Weight: 180lbs. 4.0oz. 81.980404ag; 23.58 BMI Method:Stated General Appearance: No Apparent Distress, WD/WN HEENT: PERRL/EOMI, Moist Mucous Membranes Neck: Normal Inspection, Supple Respiratory: Lungs Clear, No Accessory Muscle Use, No Respiratory Distress Cardiovascular: Regular Rate, Rhythm, No Murmur Capillary Refill: Less Than 3 Seconds Gastrointestinal: non tender, soft Extremity: Normal Capillary Refill, No Calf Tenderness Neurologic/Psychiatric: Alert, Oriented x3, Normal Mood/Affect; No Aphasia; Motor Weakness (left upper 4/5 and left lower extremity 4+/5, right WNL) Skin: Normal Color, Warm/Dry Results Lab Laboratory Tests 02/27/22 04:15 02/28/22 05:15 Assessment/Plan Assessment/Plan 1 JE MARTINEZ MD Feb 28, 2022 12:20
[2022-02-28] MEDS: TAMSULOSIN 0.4 MG (FLOMAX) CAP PO SCH (20:59)
[2022-02-28] MEDS ORDERED: NS IV 500 ML 500 ML IV PRN (22:15)
[2022-03-01 05:25] LABS: BASOPHILS % (AUTO) 1 % (0-10); EOSINOPHILS # (AUTO) 0.3 10^3/uL (0.0-0.3); EOSINOPHILS % (AUTO) 3 % (0-10); HEMATOCRIT 42 % (40-54); HEMOGLOBIN 13.6 g/dL (13.3-17.7); LYMPHOCYTES # (AUTO) 2.2 10^3/uL (1.0-4.0); LYMPHOCYTES % (AUTO) 26 % (12-44); MEAN CORPUSCULAR HEMOGLOBIN 29 pg (25-34); MEAN CORPUSCULAR HGB CONC 32 g/dL (32-36); MEAN CORPUSCULAR VOLUME 88 fL (80-99); MEAN PLATELET VOLUME 10.3 fL (9.0-12.2); MONOCYTES # (AUTO) 0.7 10^3/uL (0.0-1.0); MONOCYTES % (AUTO) 8 % (0-12); NEUTROPHILS # (AUTO) 5.3 10^3/uL (1.8-7.8); NEUTROPHILS % (AUTO) 63 % (42-75); PLATELET COUNT 292 10^3/uL (130-400); WHITE BLOOD COUNT 8.4 10^3/uL (4.3-11.0)
[2022-03-01] MEDS: CATHETER FLUSH 10 ML SYR IVP SCH ×3 (05:49→21:45)
[2022-03-01 05:51] LABS: CREATININE SERUM 1.44 MG/DL (0.60-1.30); MAGNESIUM 1.7 MG/DL (1.6-2.4); PHOSPHORUS 2.9 MG/DL (2.3-4.7); POTASSIUM 3.8 MMOL/L (3.6-5.0)
[2022-03-01] MEDS: POTASSIUM CL 10MEQ/50ML IVPB 50 ML IV SCH (05:58)
[2022-03-01] MEDS: KCL 20 MEQ TAB (K-DUR) PO SCH (05:58)
[2022-03-01] MEDS: MAGNESIUM 1 GM/100 ML IVPB 100 ML IV SCH ×3 (05:59→06:20)
[2022-03-01] MEDS: inSUlin ASPART (NovoLOG) 1 UNIT/0.01 ML (CHARGE PER UNIT) SC SCH ×4 (06:19→21:39)
[2022-03-01] MEDS: RT-ALBUTEROL/IPRATROPIUM 3 ML (DUONEB) VIAL INH SCH ×4 (06:29→17:29)
--- NOTE | 2022-03-01 08:47 | Physical Therapy Progress Note ---
Therapy Progress Note Patient transferred to ICU. PT will require new orders to resume. REN DOCKERY PT Mar 01, 2022 08:47
--- NOTE | 2022-03-01 08:48 | Progress Note - Hospitalist ---
Subjective HPI/CC On Admission Date Seen by Provider: Mar 01, 2022 Patient is a 81-year-old male with past medical history of hypertension, insulin-dependent diabetes, paroxysmal A. fib who presented to the emergency department due to left-sided weakness. 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 stroke neurology was contacted and stated he was not a candidate for intervention. The y did recommend inpatient admission for anticoagulation and further therapy. He elected to leave AMA from that visit. He went home and thought that he was more unsteady and that his vision was somewhat blurry. He decided to return to the emergency department for further evaluation and was then agreeable to admission. This morning he reports that his symptoms are much improved. He is scheduled for MRI. His only complaint is that he is hungry. Subjective/Events-last exam Pt reports doing well. No complaints. Still on amiodarone but converted back to sinus rhythm early yesterday. Plan to send back to med surg today. Objective Exam Vital Signs Vital Signs Date Time Temp Pulse Resp B/P (MAP) Pulse Ox O2 Delivery O2 Flow Rate FiO2 03/01/22 07:51 36.0 03/01/22 06:29 99 Room Air 03/01/22 06:00 67 170/89 (114) 02/28/22 20:00 13 02/27/22 10:48 21 Capillary Refill : Less Than 3 Seconds General Appearance: No Apparent Distress, WD/WN Respiratory: Lungs Clear, No Respiratory Distress Cardiovascular: Regular Rate, Rhythm, No Murmur Neurologic/Psychiatric: Alert, Oriented x3 Results/Procedures Lab Laboratory Tests 03/01/22 04:40 Patient resulted labs reviewed. Imaging: Reviewed Imaging Report Assessment/Plan Assessment and Plan Assess & Plan/Chief Complaint Acute CVA CTA with occlusion, severe stenosis of right P1 No intervention warranted per [facility] stroke neurology, just anticoagulation has statin allergy so unable to give statin, also unable to give ASA due to allergies MRI confirmed acute CVA Continue anticoagulation with Eliquis PT/OT/ST pAF CAD HTN HLD Cardiology consulted, appreciate recs Now back in sinus rhythm Continue amiodarone but switch to oral- discussed with Varsha CRUZ for Dr Stiles Continue Eliquis ANA Creatinine up to 1.44 from 1.13 Likely from contrast and RVR Trend IDDMII BS trended back up today Resume glipizide from home Continue to hold home levemir but if BS continues to increase will resume at a lower dose BPH Flomax DVT ppx: already on anticoagulation Clinical Quality Measures Stroke: Date of last known well: Feb 25, 2022 Time of last known well: 17:00 BARBARA HILLS MD Mar 01, 2022 08:48
--- NOTE | 2022-03-01 08:51 | Cardiology Progress Note ---
Subjective Date Seen by Provider: Mar 01, 2022 Time Seen by Provider: 08:50 Subjective/Events-last exam Patient was seen at bedside, laying down comfortably, feeling better. No new complaint, back to sinus rhythm Review of Systems General: No Chills, No Night Sweats, No Fatigue, No Malaise, No Appetite, No Other HEENT: No Head Aches, No Visual Changes, No Eye Pain, No Ear Pain, No Dysphasia, No Sinus Congestion, No Post Nasal Drip, No Sore Throat, No Other Pulmonary: No Dyspnea, No Cough, No Pleuritic Chest Pain, No Other Cardiovascular: No: Chest Pain, Palpitations, Orthopnea, Paroxysmal Noc. Dyspnea, Edema, Lt Headedness, Other Objective-Cardiology Exam Last Set of Vital Signs Vital Signs 02/27/22 03/01/22 03/01/22 03/01/22 10:48 06:00 06:29 07:51 Temp 36.0 Pulse 67 B/P (MAP) 170/89 (114) Pulse Ox 99 O2 Delivery Room Air FiO2 21 I&O Intake and Output 03/01/22 00:00 Intake Total 2705 ml Output Total 1050 ml Balance 1655 ml Intake Oral 2705 ml Output Urine Total 1050 ml # Voids 10 # Bowel Movements 3 General: Alert, Oriented X3 HEENT: Atraumatic Neck: Supple, No JVD Lungs: Clear to Auscultation, Normal Air Movement Heart: Regular Rate, Normal S1, Normal S2 Abdomen: Normal Bowel Sounds, Soft Extremities: No Clubbing, No Cyanosis, No Edema Skin: No Rashes, No Significant Lesion Neuro: Normal Gait, Normal Speech Psych/Mental Status: Mental Status NL, Mood NL Results Lab Laboratory Tests 03/01/22 04:40 A/P-Cardiology Admission Diagnosis CVA PAF CAD HTN Assessment/Plan CVA, presented to ER with c/o left sided weakness, tingling to lips, onset of symptoms 02/25/22. 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 No intervention warranted per [facility] stroke neurology. Patient has been maintained on Eliquis as outpatient, reports compliance with medications. Paroxysmal atrial fibrillation/flutter. Has been maintained on digoxin and Cardizem as outpatient. Patient has history of multiple breakthrough with atrial flutter, he has seen Dr. Grover and Dr. Khalid in the past. Unable to take class Ic antiarrhythmic medication due to recurrent angina. Has been on Eliquis as an outpatient. I referred him to EP in the past for possible ablation and patient did not go. Patient went back to atrial flutter with rapid ventricular response during this admission, he was started on amiodarone drip and he converted to sinus rhythm I will continue with oral Multaq, discontinue digoxin [id number] score 6, maintained on Eliquis and educated on compliance History of chest pain, he was scheduled for stress test multiple times and did not show up. I did not see him for the past year but he reported that he has been feeling better and no chest pain was reported Coronary artery disease, history of CABG, multiple cardiac catheterization in the past, last cardiac catheterization September 2016 showing severe jamul disease with patent vein graft to the right coronary artery, diagonal artery, LAD and occluded vein graft to the obtuse marginal branch which is probably the reason of his chest pain. Medical therapy is recommended Intolerance to Brilinta causing increased dyspnea Sinus node dysfunction with episode of bradycardia. Intolerant to beta blockers in the past, intolerant to amiodarone. Hypertension, monitor blood pressure, add lisinopril Hyperlipidemia, LDL 95, I will add Lipitor 10 mg daily Peripheral arterial disease Degenerative joint disease Diabetes mellitus History of pancreatitis BISI GARCIA MD Mar 01, 2022 08:51
[2022-03-01] MEDS ORDERED: AMIODARONE 200 MG (CORDARONE) TAB PO SCH (09:00)
[2022-03-01] MEDS: PANTOPRAZOLE 40 MG (PROTONIX) TAB PO SCH (09:02)
[2022-03-01] MEDS: ASPIRIN E.C. 81 MG (ECOTRIN) TAB PO SCH (09:03)
[2022-03-01] MEDS: glipiZIDE 5 MG (GLUCOTROL) TAB PO SCH (09:03)
[2022-03-01] MEDS: APIXABAN 5 MG (ELIQUIS) TABLET PO SCH ×2 (09:04→21:39)
[2022-03-01] MEDS: DRONEDARONE 400 MG TABLET PO SCH ×2 (09:38→21:39)
[2022-03-01] MEDS: lisINopril 10 MG (PRINIVIL) TABLET PO SCH (09:38)
--- NOTE | 2022-03-01 10:15 | Tele-ICU Progress Note ---
Subjective Date Seen by a Provider: Mar 01, 2022 Time Seen by a Provider: 10:14 Subjective/Events-last exam Available chart/ vitals / labs / Images reviewed Video assessment done using teleICU camera, rest of exam as per RN Discussed with RN Events overnight : Afebrile hemodynamically stable Respiratory - RA I/O = ++ Drips: Pressors- no Consultants: Hospital course: Consultants: Hospital course: 02-28: Neg Sepsis Not Covid Tested 81 y/o M - CVA - UTI - A Flutter. Cardizem Drip. Not a candidate for any intervention - Out of window. 03/01 converted to sinus . Loli A/P CVA, presented to ER with c/o left sided weakness, onset of symptoms 02/25/22. -CTA with occlusion very severe stenosis of right P1. -No intervention warranted per [facility] stroke neurology. - on Eliquis as outpatient, reports compliance with medications- ? FAILED ELIQUIS - with CVA > 48 h ago will not aim for permissive HTN now SBP 170 yesterday PAF /flutter. - aflatter 140 -RVR today --> transfer to IICU - on amio gtt as per cards - CONVERTED 02/28 to dinus -on Eliquis (as per chart : chronic , hard to control was referred to EP in the past fo ablation and patient did not go.) as per chart - Sinus node dysfunction with episode of bradycardia. Intolerant to beta blockers in the past, intolerant to amiodarone.) LOLI - will give NS 1 l anf follew CADm h/o CABG, - as per cards PAD DM II - as per PCP nick ndiaye - follow recom PT Lines : peripg , (Central Line Necessity Reviewed) Menjivar: void OG: Nutrition: Analgesia: Anxiety/ delirium VTE Prophylaxis: eliquis Stress Ulcer Prophylaxis: na Plans in collaboration with bedside consultants and IM MDs. Discussed with RN to reach out if any questions or concerns A total of 31 minutes of critical care time was devoted to this patient today, required to treat and/or prevent further deterioration of critical care condition ( as above ) . I am remotely monitoring this patient from another state. I am unable to do the bedside exam, and history/physical and pertinent information is taken from other notes in the computer and bedside staff. I cannot take responsibility for the accuracy of this information. Sepsis Event Evaluation Height, Weight, BMI Height: 6'0" Weight: 180lbs. 4.0oz. 81.428694ww; 24.68 BMI Method:Stated Exam Exam Patient acknowledged, consented, and participated in this virtual visit which was conducted using real time audio/video Vital Signs Date Time Temp Pulse Resp B/P (MAP) Pulse Ox O2 Delivery O2 Flow Rate FiO2 03/01/22 07:51 36.0 03/01/22 07:19 62 03/01/22 06:29 99 Room Air 03/01/22 06:00 67 170/89 (114) 99 Room Air 03/01/22 05:00 64 160/89 (112) 99 Room Air 03/01/22 04:00 58 146/84 (104) 99 Room Air 03/01/22 03:40 98 Room Air 03/01/22 03:00 66 120/58 (78) 99 Room Air 03/01/22 02:00 68 121/59 (79) 98 Room Air 03/01/22 01:00 71 132/72 (92) 98 Room Air 03/01/22 01:00 71 03/01/22 00:15 73 142/95 (111) 98 Room Air 02/28/22 23:53 98 Room Air 02/28/22 23:49 37.3 02/28/22 23:00 62 115/60 (78) 99 Room Air 02/28/22 22:00 85 158/93 (114) 98 Room Air 02/28/22 21:00 74 136/94 (108) 98 Room Air 02/28/22 20:00 79 13 157/84 (108) 97 Room Air 02/28/22 20:00 98 Room Air 02/28/22 19:28 36.6 02/28/22 19:04 98 Room Air 02/28/22 19:00 67 02/28/22 19:00 67 13 153/91 (111) 97 Room Air 02/28/22 18:00 64 17 160/92 (114) 100 Room Air 02/28/22 17:00 68 15 139/107 (118) 99 Room Air 02/28/22 16:00 105 25 148/99 (115) 98 Room Air 02/28/22 16:00 98 Room Air 02/28/22 16:00 36.4 02/28/22 15:00 75 127/71 (89) 99 Room Air 02/28/22 14:00 92 136/91 (106) 99 Room Air 02/28/22 13:16 90 02/28/22 13:00 89 131/85 (100) 96 Room Air 02/28/22 12:00 36.4 02/28/22 12:00 93 152/90 (110) 98 Room Air 02/28/22 12:00 98 Room Air 02/28/22 11:00 93 160/98 (118) 100 Room Air 02/28/22 10:57 99 Room Air 02/28/22 10:45 100 8 159/70 (99) 98 Room Air 02/28/22 10:30 95 15 146/96 (113) 97 Room Air 02/28/22 10:15 96 14 162/98 (119) 97 Room Air I & O 03/01/22 07:00 Intake Total 3215 ml Output Total 1600 ml Balance 1615 ml Height & Weight Height: 6'0" Weight: 180lbs. 4.0oz. 81.223437fz; 24.68 BMI Method:Stated General Appearance: No Apparent Distress, WD/WN HEENT: PERRL/EOMI, Moist Mucous Membranes Neck: Normal Inspection, Supple Respiratory: Lungs Clear, No Respiratory Distress Cardiovascular: Regular Rate, Rhythm, No Murmur Capillary Refill: Less Than 3 Seconds Gastrointestinal: non tender, soft Extremity: Normal Capillary Refill, No Calf Tenderness Neurologic/Psychiatric: Alert, Oriented x3 Skin: Normal Color, Warm/Dry Results Lab Laboratory Tests 02/28/22 05:15 03/01/22 04:40 Assessment/Plan Assessment/Plan 1 JE MARTINEZ MD Mar 01, 2022 10:15
--- NOTE | 2022-03-01 10:46 | Physical Therapy Evaluation ---
PT Evaluation-General Medical Diagnosis Admission Date Feb 27, 2022 at 04:20 Medical Diagnosis: CVA, afib Onset Date: Feb 27, 2022 Therapy Diagnosis Therapy Diagnosis: impaired mobility, balance Height/Weight Height (Feet): 6 Height (Inches): 0 Weight (Pounds): 180 Weight (Ounces): 4.0 Precautions Precautions/Isolations: Fall Prevention, Standard Precautions Referral Physician: Rama Reason for Referral: Evaluation/Treatment Medical History Pertinent Medical History: Atrial Fib, Arthritis, CAD, DM, HTN Additional Medical History Past Medical History Surgeries: Abdominal, Angioplasty, Cardiac, CABG, Coronary Stent, Eye Surgery, Gallbladder, Joint Replacement, Open Heart Surgery, Orthopedic, Vascular Surgery Sleep Apnea, COPD Currently Using CPAP: No Currently Using BIPAP: No Atrial Fibrillation, Chronic Edema/Swelling, Coronary Artery Disease, Heart Attack, High Cholesterol, Hypertension, Peripheral Vascular Neuropathy, Stroke, TIA Sexually Transmitted Disease: No HIV/AIDS: No Benign Prostatic Hyperpl, Prostate Problems, Renal Failure Abdominal Hernia, Gastroesophageal Reflux, Chronic Constipation, Diverticulosis, Pancreatitis, Polyps, Esophagitis, Hiatal Hernia, Gall Bladder Disease Degenerate Disk Disease, Arthritis, Chronic Back Pain Diabetes, Insulin dep Cataract Loss of Vision: Denies Hearing Impairment: Denies Anxiety, Depression Blood Disorders: No Adverse Reaction/Blood Tranf: No (N/A) Reviewed History: Yes Social History Home: Single Level Current Living Status: Children (lives with daughter) Entry Into Home: Stairs Without Railing PT Steps Into Home: 3 Prior Prior Level of Function SCALE: Activities may be completed with or without assistive devices. 7-Bsofmqrobi-pseejdo completes the activity by him/herself with no assistance from a helper. 5-Set-up or Clean-up Assistance-helper sets up or cleans up; patient completes activity. [place] assists only prior to or following the activity. 4-Supervision or Touching Assistance-helper provides verbal cues and/or touching/steadying and/or contact guard assistance as patient completes activit y. Assistance may be provided throughout the activity or intermittently. 3-Partial/Moderate Assistance-helper does LESS THAN HALF the effort. [place] lifts, holds or supports trunk or limbs, but provides less than half the effort. 2-Substantial/Maximal Assistance-helper does MORE THAN HALF the effort. [place] lifts or holds trunk or limbs and provides more than half the effort. 7-Ihdfnbrgo-eixcpf does ALL the effort. Patient does none of the effort to complete the activity. Or, the assistance of 2 or more helpers is required for the patient to complete the activity. If activity was not attempted, code reason: 7-Patient Refused. 9-Not Applicable-not attempted and the patient did not perform the activity before the current illness, exacerbation or injury. 10-Not Attempted due to Environmental Limitations-(lack of equipment, weather restraints, etc.). 88-Not Attempted due to Medical Conditions or Safety Concerns. Bed Mobility: 6 Transfers (B,C,W/C): 6 Gait: 6 Stairs: 6 Indoor Mobility (Ambulation): Independent Stairs: Independent used a SPC PT Evaluation-Current Subjective Patient in bed pre tx, agrees to PT, has no complaints of pain. Patient states he needs to use the commode. Pt/Family Goals to be independent at home Objective Patient Orientation: Person, Place, Situation ROM/Strength ROM Lower Extremities WNL Strength Lower Extremities LLE (hip flexion 4/5, knee flexion 5/5, knee extension 5/5, dorsiflexion 5/5), RLE (hip flexion 4/5, knee flexion 5/5, knee extension 5/5, dorsiflexion 5/5) Sensory Vision: Hearing: Functional Hand Dominance: Right Sensation Right Lower Extremit: Impaired Sensation Left Lower Extremity: Intact Transfers Roll Left to Right (QC): 6 Lying to Sitting/Side of Bed(Q: 6 Sit to Stand (QC): 4 Chair/Hzh-dj-Egsyu Xfer(QC): 4 CGA for sit to stand and transfers. Patient initially states he doesn't need a gait belt and impulsively stands and immediately loses his balance, patient seems to realize his mistake. Gait belt donned and patient transfers to commode. Patient is unsuccessful on commode and he ambulates. Gait Does the Patient Walk?: Yes Mode of Locomotion: Walk Anticipated Mode of Locomotion: Walk Walk 10 feet (QC): 4 Walk 50 ft with 2 Turns(QC): 4 Distance: 80' Gait Assistive Device: FWW Comments/Gait Description CGA, brisk ambulation, slightly unsteady when turning Balance Sitting Static: Normal Sitting Dynamic: Normal Standing Static: Fair Standing Dynamic: Fair Assessment/Needs Patient in recliner post tx with nurse call, phone, tray, all needs met. Patient has impaired mobility, balance. Patient instructed to call nurse if he needs to get up due to impaired balance. Rehab Potential: Fair PT Truck Driver Helper Goals Truck Driver Helper Goals PT Care Home Goals Time Frame: Mar 08, 2022 Roll Left & Right (QC): 6 Sit to Lying (QC): 6 Lying-Sitting on Side/Bed(QC): 6 Sit to Stand (QC): 6 Chair/Kjk-op-Tqpwm Xfer(QC): 6 Walk 10 feet (QC): 6 Walk 50ft with 2 Turns (QC): 6 Walk 150 ft (QC): 6 PT Plan Problem List Problem List: Activity Tolerance, Functional Strength, Safety, Balance, Gait, Transfer, ROM Treatment/Plan Treatment Plan: Continue Plan of Care Treatment Plan: Education, Functional Activity Lisseth, Functional Strength, Gait, Safety, Therapeutic Exercise, Transfers Treatment Duration: Mar 06, 2022 Frequency: 6 times per week Estimated Hrs Per Day: .25 hour per day Patient and/or Family Agrees t: Yes Safety Risks/Education Patient Education: Gait Training, Transfer Techniques, Correct Positioning, Safety Issues Teaching Recipient: Patient Teaching Methods: Demonstration, Discussion Response to Teaching: Reinforcement Needed Discharge Recommendations Plan Patient will perform bed mobility and transfer training, balance and endurance training, functional strengthening, stair training, gait training, and education, to improve functional mobility and independence at home. Therapy Discharge Recommendati: Scheduled Assistance, Home & Family, Post Acute PT Time/GCodes Time In: 1015 Time Out: 1032 Total Billed Treatment Time: 17 Total Billed Treatment 1 visit REN NGUYEN PT Mar 01, 2022 10:46
[2022-03-01] MEDS: NS IV 1000 ML 1,000 ML IV SCH ×2 (12:17→21:47)
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
[2022-03-01 15:38] VITALS: BP 111/63
[2022-03-01 17:11] VITALS: BP 111/63
[2022-03-01 19:11] VITALS: BP 163/81
[2022-03-01] MEDS: TAMSULOSIN 0.4 MG (FLOMAX) CAP PO SCH (21:39)
[2022-03-01] MEDS: AtorvaSTATin TABLET 10 MG TABLET PO SCH (21:39)
[2022-03-02 00:03] VITALS: BP 172/83
[2022-03-02 04:03] VITALS: BP 150/82
[2022-03-02] MEDS: inSUlin ASPART (NovoLOG) 1 UNIT/0.01 ML (CHARGE PER UNIT) SC SCH ×4 (05:47→20:35)
[2022-03-02 06:11] LABS: MAGNESIUM 1.8 MG/DL (1.6-2.4); POTASSIUM 3.6 MMOL/L (3.6-5.0)
[2022-03-02] MEDS: MAGNESIUM 1 GM/100 ML IVPB 100 ML IV SCH (06:28)
[2022-03-02] MEDS: POTASSIUM CL 10MEQ/50ML IVPB 50 ML IV SCH (06:29)
[2022-03-02] MEDS: KCL 20 MEQ TAB (K-DUR) PO SCH (06:32)
[2022-03-02] MEDS: CATHETER FLUSH 10 ML SYR IVP SCH ×3 (06:40→20:29)
[2022-03-02] MEDS: RT-ALBUTEROL/IPRATROPIUM 3 ML (DUONEB) VIAL INH SCH ×3 (06:57→18:41)
[2022-03-02 07:36] VITALS: BP 117/66
--- NOTE | 2022-03-02 08:25 | Cardiology Progress Note ---
Subjective Date Seen by Provider: Mar 02, 2022 Time Seen by Provider: 08:24 Subjective/Events-last exam Patient is in bed, continues to have left arm weakness, denies any chest pain. Objective-Cardiology Exam Last Set of Vital Signs Vital Signs 02/27/22 03/02/22 03/02/22 10:48 07:36 07:41 Temp 37.2 Pulse 78 Resp 18 B/P (MAP) 117/66 (83) Pulse Ox 95 O2 Delivery Room Air FiO2 21 I&O Intake and Output 03/02/22 00:00 Intake Total 3046 ml Output Total 1700 ml Balance 1346 ml Intake Oral 1846 ml IV Total 1200 ml Output Urine Total 1700 ml General: Alert, Oriented X3 HEENT: Atraumatic Neck: Supple, No JVD Lungs: Clear to Auscultation, Normal Air Movement Heart: Regular Rate, Normal S1, Normal S2 Abdomen: Normal Bowel Sounds, Soft Extremities: No Clubbing, No Cyanosis, No Edema Skin: No Rashes, No Significant Lesion Neuro: Normal Gait, Normal Speech Psych/Mental Status: Mental Status NL, Mood NL Results Lab Laboratory Tests 03/02/22 05:40 A/P-Cardiology Admission Diagnosis CVA PAF CAD HTN Assessment/Plan CVA, presented to ER with c/o left sided weakness, tingling to lips, onset of symptoms 02/25/22. 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 No intervention warranted per [facility] stroke neurology. Patient has been maintained on Eliquis as outpatient, reports compliance with medications. Paroxysmal atrial fibrillation/flutter. Has been maintained on digoxin and Cardizem as outpatient. Patient has history of multiple breakthrough with atrial flutter, he has seen Dr. Grover and Dr. Tilley in the past. Unable to take class Ic antiarrhythmic medication due to recurrent angina. Has been on Eliquis as an outpatient. I referred him to EP in the past for possible ablation and patient did not go. Patient went back to atrial flutter with rapid ventricular response during this admission, he was started on amiodarone drip and he converted to sinus rhythm I will continue with oral Multaq [id number] score 6, maintained on Eliquis and educated on compliance History of chest pain, he was scheduled for stress test multiple times and did not show up. I did not see him for the past year but he reported that he has been feeling better and no chest pain was reported Coronary artery disease, history of CABG, multiple cardiac catheterization in the past, last cardiac catheterization September 2016 showing severe [place] disease with patent vein graft to the right coronary artery, diagonal artery, LAD and occluded vein graft to the obtuse marginal branch which is probably the reason of his chest pain. Medical therapy is recommended Intolerance to Brilinta causing increased dyspnea Sinus node dysfunction with episode of bradycardia. Intolerant to beta blockers in the past, intolerant to amiodarone. Hypertension, monitor blood pressure, add lisinopril Hyperlipidemia, LDL 95, I will add Lipitor 10 mg daily Peripheral arterial disease Degenerative joint disease Diabetes mellitus History of pancreatitis Supervisory-Addendum Brief Supervisory Addendum Participated in pt care: history, MDM, physical Personally performed: exam, history, MDM Care discussed with: NANCY Results interpretation: Verified all documentation Notes: Patient was seen and evaluated with Radha, examination performed, management plan was discussed, agree with the current scribed note, I made few changes to the note using Italic font Patient was seen at bedside, laying down comfortably Discussed the management plan, continue on Multaq Continue with physical therapy RADHA KAT Mar 02, 2022 08:25 BISI GARCIA MD Mar 02, 2022 10:13
[2022-03-02] MEDS: DRONEDARONE 400 MG TABLET PO SCH ×2 (08:38→20:29)
[2022-03-02] MEDS: PANTOPRAZOLE 40 MG (PROTONIX) TAB PO SCH (08:38)
[2022-03-02] MEDS: lisINopril 10 MG (PRINIVIL) TABLET PO SCH (08:38)
[2022-03-02] MEDS: ASPIRIN E.C. 81 MG (ECOTRIN) TAB PO SCH (08:38)
[2022-03-02] MEDS: APIXABAN 5 MG (ELIQUIS) TABLET PO SCH ×2 (08:38→20:29)
[2022-03-02] MEDS: glipiZIDE 5 MG (GLUCOTROL) TAB PO SCH (08:38)
[2022-03-02] MEDS ORDERED: KCL 20 MEQ TAB (K-DUR) PO ONE (09:00)
--- NOTE | 2022-03-02 10:13 | Physical Therapy Daily Note ---
PT Daily Note-Current Subjective Patient agrees to PT. Pain Section J - Health Conditions 1. Rarely or not at all 2. Occasionally 3. Frequently 4. Almost constantly 8. Unable to answer Pain Effect on Sleep: 1 Pain Interference with Therapy: 1 Pain Interference w/Day-to-Day: 1 Mental Status Patient Orientation: Person, Time, Situation Transfers SCALE: Activities may be completed with or without assistive devices. 7-Rjrhibtygw-cpjkdna completes the activity by him/herself with no assistance from a helper. 5-Set-up or Clean-up Assistance-helper sets up or cleans up; patient completes activity. [place] assists only prior to or following the activity. 4-Supervision or Touching Assistance-helper provides verbal cues and/or touching/steadying and/or contact guard assistance as patient completes activity. Assistance may be provided throughout the activity or intermittently. 3-Partial/Moderate Assistance-helper does LESS THAN HALF the effort. [place] lifts, holds or supports trunk or limbs, but provides less than half the effort. 2-Substantial/Maximal Assistance-helper does MORE THAN HALF the effort. [place] lifts or holds trunk or limbs and provides more than half the effort. 1-Vdixzloxs-qvcedf does ALL the effort. Patient does none of the effort to complete the activity. Or, the assistance of 2 or more helpers is required for the patient to complete the activity. If activity was not attempted, code reason: 7-Patient Refused. 9-Not Applicable-not attempted and the patient did not perform the activity before the current illness, exacerbation or injury. 10-Not Attempted due to Environmental Limitations-(lack of equipment, weather restraints, etc.). 88-Not Attempted due to Medical Conditions or Safety Concerns. Lying to Sitting/Side of Bed(Q: 6 Sit to Stand (QC): 4 Chair/Kyf-zi-Klzog Xfer(QC): 4 Gait Training Distance: 300' Walk 10 feet (QC): 4 Walk 50 ft with 2 Turns(QC): 4 Walk 150 ft (QC): 4 Gait Assistive Device: FWW VC's for body placement in FWW/functional gait sequence Assessment Patient is very impulsive and unaware of safety concerns. Patient tolerated treatment well. Patient is up in recliner with chair alarm activated. Plan dismissal this week per physician. PT Magnetic Prospecting Operator Goals Mcfp Goals PT Mcfp Goals Time Frame: Mar 08, 2022 Roll Left & Right (QC): 6 Sit to Lying (QC): 6 Lying-Sitting on Side/Bed(QC): 6 Sit to Stand (QC): 6 Chair/Akg-dn-Wstcy Xfer(QC): 6 Walk 10 feet (QC): 6 Walk 50ft with 2 Turns (QC): 6 Walk 150 ft (QC): 6 PT Plan Treatment/Plan Treatment Plan: Continue Plan of Care Treatment Plan: Education, Functional Activity Lisseth, Functional Strength, Gait , Safety, Therapeutic Exercise, Transfers Treatment Duration: Mar 06, 2022 Frequency: 6 times per week Estimated Hrs Per Day: .25 hour per day Patient and/or Family Agrees t: Yes Time/GCodes Time In: 930 Time Out: 941 Total Billed Treatment Time: 11 Total Billed Treatment 1 visit FA 11 min NOEL SIDHU PT Mar 02, 2022 10:13
[2022-03-02 11:30] VITALS: BP 134/74
--- NOTE | 2022-03-02 13:51 | Progress Note - Hospitalist ---
Subjective HPI/CC On Admission Date Seen by Provider: Mar 02, 2022 Patient is a 81-year-old male with past medical history of hypertension, insulin-dependent diabetes, paroxysmal A. fib who presented to the emergency department due to left-sided weakness. 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 stroke neurology was contacted and stated he was not a candidate for intervention. The y did recommend inpatient admission for anticoagulation and further therapy. He elected to leave AMA from that visit. He went home and thought that he was more unsteady and that his vision was somewhat blurry. He decided to return to the emergency department for further evaluation and was then agreeable to admission. This morning he reports that his symptoms are much improved. He is scheduled for MRI. His only complaint is that he is hungry. Subjective/Events-last exam Pt reports doign well. Had some weakness in his left arm this morning. Is currently at baseline strength from admission. Ambulating with PT. He does state he doesn't feel as well today though. Discussed safe discharge plan and hopeful DC date tomorrow. Objective Exam Vital Signs Vital Signs Date Time Temp Pulse Resp B/P (MAP) Pulse Ox O2 Delivery O2 Flow Rate FiO2 03/02/22 11:30 37.2 82 18 134/74 (94) 97 Room Air 02/27/22 10:48 21 Capillary Refill : Less Than 3 Seconds General Appearance: No Apparent Distress, WD/WN, Thin Respiratory: Lungs Clear, No Respiratory Distress Cardiovascular: Regular Rate, Rhythm, No Murmur Neurologic/Psychiatric: Alert, Oriented x3 Results/Procedures Lab Laboratory Tests 03/02/22 05:40 Patient resulted labs reviewed. Imaging: Reviewed Imaging Report Assessment/Plan Assessment and Plan Assess & Plan/Chief Complaint Acute CVA CTA with occlusion, severe stenosis of right P1 No intervention warranted per [facility] stroke neurology, just anticoagulation has statin allergy so unable to give statin, also unable to give ASA due to allergies MRI confirmed acute CVA Continue anticoagulation with Eliquis PT/OT/ST had apparent worsening of LUE weakness this morning but resolved without incident pAF CAD HTN HLD Cardiology consulted, appreciate recs Remains in sinus rhythm Multaq Continue Eliquis ANA Creatinine pending Likely from contrast and RVR Trend IDDMII BS improved with glipizide Continue to hold home levemir but if BS continues to increase will resume at a lower dose BPH Flomax DVT ppx: already on anticoagulation Clinical Quality Measures Stroke: Date of last known well: Feb 25, 2022 Time of last known well: 17:00 BARBARA HILLS MD Mar 02, 2022 13:51
[2022-03-02 13:57] LABS: POTASSIUM 3.7 MMOL/L (3.6-5.0)
[2022-03-02 13:59] LABS: CALCIUM 9.3 MG/DL (8.5-10.1)
[2022-03-02 14:03] LABS: CREATININE SERUM 1.26 MG/DL (0.60-1.30)
[2022-03-02 15:30] VITALS: BP 106/61
[2022-03-02 19:48] VITALS: BP 133/67
[2022-03-02] MEDS: AtorvaSTATin TABLET 10 MG TABLET PO SCH (20:29)
[2022-03-02] MEDS: TAMSULOSIN 0.4 MG (FLOMAX) CAP PO SCH (20:29)
[2022-03-03] VITALS: BP 131/77
[2022-03-03 03:56] VITALS: BP 131/66
[2022-03-03] MEDS: inSUlin ASPART (NovoLOG) 1 UNIT/0.01 ML (CHARGE PER UNIT) SC SCH ×4 (05:21→20:24)
[2022-03-03 06:05] LABS: POTASSIUM 3.7 MMOL/L (3.6-5.0)
[2022-03-03 06:07] LABS: CALCIUM 9.3 MG/DL (8.5-10.1)
[2022-03-03 06:11] LABS: CREATININE SERUM 1.27 MG/DL (0.60-1.30)
[2022-03-03 06:13] LABS: MAGNESIUM 1.9 MG/DL (1.6-2.4)
[2022-03-03] MEDS: MAGNESIUM 1 GM/100 ML IVPB 100 ML IV SCH (06:27)
[2022-03-03] MEDS: POTASSIUM CL 10MEQ/50ML IVPB 50 ML IV SCH (06:27)
[2022-03-03] MEDS: CATHETER FLUSH 10 ML SYR IVP SCH ×3 (06:27→20:11)
[2022-03-03] MEDS: KCL 20 MEQ TAB (K-DUR) PO SCH (06:28)
[2022-03-03 07:36] VITALS: BP 105/55
[2022-03-03] MEDS: RT-ALBUTEROL/IPRATROPIUM 3 ML (DUONEB) VIAL INH SCH ×3 (07:44→21:20)
[2022-03-03] MEDS: lisINopril 10 MG (PRINIVIL) TABLET PO SCH (09:03)
[2022-03-03] MEDS: ASPIRIN E.C. 81 MG (ECOTRIN) TAB PO SCH (09:03)
[2022-03-03] MEDS: APIXABAN 5 MG (ELIQUIS) TABLET PO SCH ×2 (09:03→20:00)
[2022-03-03] MEDS: PANTOPRAZOLE 40 MG (PROTONIX) TAB PO SCH (09:03)
[2022-03-03] MEDS: DRONEDARONE 400 MG TABLET PO SCH ×2 (09:03→19:59)
[2022-03-03] MEDS: glipiZIDE 5 MG (GLUCOTROL) TAB PO SCH (09:03)
--- NOTE | 2022-03-03 10:22 | Diagnostic Imaging Report ---
PROCEDURE: CT head wo r/o stroke. TECHNIQUE: Multiple contiguous axial images were obtained through the brain without the use of intravenous contrast. Auto Exposure Controls were utilized during the CT exam to meet ALARA standards for radiation dose reduction. INDICATION: Left-sided weakness, head pain, visual disturbance. CORRELATED with MR brain 02/27, CT angiogram head and neck 02/26/2022. There is no intracerebral hemorrhage and no hydrocephalus. We now note a few subtle areas of diminished parenchymal density in the inferomedial right occipital lobe corresponding to the sites of known acute ischemia demonstrated better at recent brain MRI. Interval visualization is an expected interval evolutionary change. No adverse or unexpected development is found. No findings to suggest a new ischemic insult. There is no evidence for hemorrhagic transformation. 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 No new or unexpected finding revealed at this study, no hydrocephalus, shift or herniation. Dictated by: Dictated on workstation # [id number]
--- NOTE | 2022-03-03 10:33 | Cardiology Progress Note ---
Subjective Date Seen by Provider: Mar 03, 2022 Time Seen by Provider: 10:32 Subjective/Events-last exam Patient had some deterioration in condition, became slightly weaker. Appears to be having orthostatic hypotension Review of Systems General: No Chills, No Night Sweats; Fatigue; No Malaise, No Appetite, No Other HEENT: No Head Aches, No Visual Changes, No Eye Pain, No Ear Pain, No Dysphasia, No Sinus Congestion, No Post Nasal Drip, No Sore Throat, No Other Pulmonary: No Dyspnea, No Cough, No Pleuritic Chest Pain, No Other Cardiovascular: No: Chest Pain, Palpitations, Orthopnea, Paroxysmal Noc. Dyspnea, Edema, Lt Headedness, Other Objective-Cardiology Exam Last Set of Vital Signs Vital Signs 02/27/22 03/03/22 03/03/22 10:48 07:36 08:00 Temp 37.0 Pulse 80 Resp 18 B/P (MAP) 105/55 (72) Pulse Ox 92 O2 Delivery Room Air FiO2 21 I&O Intake and Output 03/03/22 00:00 Intake Total 2120 ml Output Total 1400 ml Balance 720 ml Intake Oral 2120 ml Output Urine Total 1400 ml # Voids 2 # Bowel Movements 1 General: Alert, Oriented X3 HEENT: Atraumatic Neck: Supple, No JVD Lungs: Clear to Auscultation, Normal Air Movement Heart: Regular Rate, Normal S1, Normal S2 Abdomen: Normal Bowel Sounds, Soft Extremities: No Clubbing, No Cyanosis, No Edema Skin: No Rashes, No Significant Lesion Neuro: Normal Gait, Normal Speech Psych/Mental Status: Mental Status NL, Mood NL Results Lab Laboratory Tests 03/03/22 05:10 A/P-Cardiology Admission Diagnosis CVA PAF CAD HTN Assessment/Plan CVA, presented to ER with c/o left sided weakness, tingling to lips, onset of symptoms 02/25/22. 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 No intervention warranted per [facility] stroke neurology. Patient has been maintained on Eliquis as outpatient, reports compliance with medications. Paroxysmal atrial fibrillation/flutter. Has been maintained on digoxin and Cardizem as outpatient. Patient has history of multiple breakthrough with atrial flutter, he has seen Dr. Grover and Dr. Tilley in the past. Unable to take class Ic antiarrhythmic medication due to recurrent angina. Has been on Eliquis as an outpatient. I referred him to EP in the past for possible ablation and patient did not go. Patient went back to atrial flutter with rapid ventricular response during this admission, he was started on amiodarone drip and he converted to sinus rhythm I will continue with oral Multaq [id number] score 6, maintained on Eliquis and educated on compliance History of chest pain, he was scheduled for stress test multiple times and did not show up. I did not see him for the past year but he reported that he has been feeling better and no chest pain was reported Coronary artery disease, history of CABG, multiple cardiac catheterization in the past, last cardiac catheterization September 2016 showing severe [place] disease with patent vein graft to the right coronary artery, diagonal artery, LAD and occluded vein graft to the obtuse marginal branch which is probably the reason of his chest pain. Medical therapy is recommended Intolerance to Brilinta causing increased dyspnea Sinus node dysfunction with episode of bradycardia. Intolerant to beta blockers in the past, intolerant to amiodarone. Hypertension, having orthostatic hypotension. I will stop lisinopril and continue on Cardizem CD 240. I will consider decreasing the dose if patient continues to have orthostatic hypotension. Hyperlipidemia, LDL 95, I will add Lipitor 10 mg daily Peripheral arterial disease Degenerative joint disease Diabetes mellitus History of pancreatitis BISI GARCIA MD Mar 03, 2022 10:33
--- NOTE | 2022-03-03 10:45 | Physical Therapy Daily Note ---
PT Daily Note-Current Subjective Per DrEddie request, PT in to assess patient due to possible change in status. Pain Section J - Health Conditions 1. Rarely or not at all 2. Occasionally 3. Frequently 4. Almost constantly 8. Unable to answer Pain Effect on Sleep: 1 Pain Interference with Therapy: 1 Pain Interference w/Day-to-Day: 1 Mental Status Patient Orientation: Confused, Listless Transfers SCALE: Activities may be completed with or without assistive devices. 7-Wawaqejozf-ieamrxu completes the activity by him/herself with no assistance from a helper. 5-Set-up or Clean-up Assistance-helper sets up or cleans up; patient completes activity. [place] assists only prior to or following the activity. 4-Supervision or Touching Assistance-helper provides verbal cues and/or touching/steadying and/or contact guard assistance as patient completes activity. Assistance may be provided throughout the activity or intermittently. 3-Partial/Moderate Assistance-helper does LESS THAN HALF the effort. [place] lifts, holds or supports trunk or limbs, but provides less than half the effort. 2-Substantial/Maximal Assistance-helper does MORE THAN HALF the effort. [place] lifts or holds trunk or limbs and provides more than half the effort. 6-Xctkepgda-vkibfx does ALL the effort. Patient does none of the effort to complete the activity. Or, the assistance of 2 or more helpers is required for the patient to complete the activity. If activity was not attempted, code reason: 7-Patient Refused. 9-Not Applicable-not attempted and the patient did not perform the activity before the current illness, exacerbation or injury. 10-Not Attempted due to Environmental Limitations-(lack of equipment, weather restraints, etc.). 88-Not Attempted due to Medical Conditions or Safety Concerns. Sit to Lying (QC): 3 Lying to Sitting/Side of Bed(Q: 3 Sit to Stand (QC): 3 Assessment PT assessed patient with orthostatic testing as well. Patient is very lethargic and c/o OCHOA. Noted left UE and LE diminished coordination and left neglect. Patient does presents with dizziness and seated LOB to left with PT assist to correct. Patient returned to bed side lying right with 4 rails up and nursing present. Dr. Ontiveros notified and stroke team activated per physician request.. Noted decrease in BP (refer to nursing notes for accurate reading). PT Director Of Sustainability Goals Group Home Goals PT Director Of Sustainability Goals Time Frame: Mar 08, 2022 Roll Left & Right (QC): 6 Sit to Lying (QC): 6 Lying-Sitting on Side/Bed(QC): 6 Sit to Stand (QC): 6 Chair/Tos-aa-Hkzcp Xfer(QC): 6 Walk 10 feet (QC): 6 Walk 50ft with 2 Turns (QC): 6 Walk 150 ft (QC): 6 PT Plan Treatment/Plan Treatment Plan: Continue Plan of Care Treatment Plan: Education, Functional Activity Lisseth, Functional Strength, Gait, Safety, Therapeutic Exercise, Transfers Treatment Duration: Mar 06, 2022 Frequency: 6 times per week Estimated Hrs Per Day: .25 hour per day Patient and/or Family Agrees t: Yes Time/GCodes Time In: 930 Time Out: 946 Total Billed Treatment Time: 16 Total Billed Treatment 1 visit FA 16 min NOEL SIDHU PT Mar 03, 2022 10:45
[2022-03-03] MEDS: NS IV 500 ML 500 ML IV SCH (10:55)
[2022-03-03 11:31] VITALS: BP 186/88
--- NOTE | 2022-03-03 15:11 | Progress Note - Hospitalist ---
Subjective HPI/CC On Admission Date Seen by Provider: Mar 03, 2022 Patient is a 81-year-old male with past medical history of hypertension, insulin-dependent diabetes, paroxysmal A. fib who presented to the emergency department due to left-sided weakness. 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 stroke neurology was contacted and stated he was not a candidate for intervention. The y did recommend inpatient admission for anticoagulation and further therapy. He elected to leave AMA from that visit. He went home and thought that he was more unsteady and that his vision was somewhat blurry. He decided to return to the emergency department for further evaluation and was then agreeable to admission. This morning he reports that his symptoms are much improved. He is scheduled for MRI. His only complaint is that he is hungry. Subjective/Events-last exam Pt had some increasing left hand discoordination. Confirmed changed with RN. I asked PT to see and evaluated as well. He had some left sided drift as well. CODE Stroke activated. Stat CT Head ordered. Objective Exam Vital Signs Vital Signs Date Time Temp Pulse Resp B/P (MAP) Pulse Ox O2 Delivery O2 Flow Rate FiO2 03/03/22 15:47 36.8 81 17 98/61 (73) 96 Room Air 02/27/22 10:48 21 Capillary Refill : Less Than 3 Seconds General Appearance: No Apparent Distress, WD/WN, Chronically ill, Thin Respiratory: Lungs Clear, No Respiratory Distress Cardiovascular: Regular Rate, Rhythm, No Murmur Neurologic/Psychiatric: Alert, Oriented x3, Other (left upper extremity discoordination, apparently visual deficit of left side, slight slouch to left when up in bed) Results/Procedures Lab Laboratory Tests 03/03/22 05:10 Patient resulted labs reviewed. Imaging: Reviewed Imaging Report Assessment/Plan Assessment and Plan Assess & Plan/Chief Complaint Acute CVA CTA with occlusion, severe stenosis of right P1 No intervention warranted per [facility] stroke neurology on admission, just anticoagulation has statin allergy so unable to give statin, also unable to give ASA due to allergies MRI confirmed acute CVA Continue anticoagulation with Eliquis PT/OT/ST Again had worsening of symptoms so CODE stroke activated and repeat imaging, not a candidate for TPA given on anticoagulation I called and spoke with [facility] again to update and confirm not a candidate for intervention, Reviewed exam and imaging and neurologist confirms patient is not a candidate for intervention and expectant management as we are doing, I asked specifically regarding referral for vascular surgery due to known stenosis and she states not urgent but to follow up quickly upon discharge pAF CAD HTN HLD Cardiology consulted, appreciate recs Remains in sinus rhythm Multaq Continue Eliquis ANA-resolved Creatinine improved Trend IDDMII BS improved with glipizide Continue to hold home levemir but if BS continues to increase will resume at a lower dose BPH Flomax DVT ppx: already on anticoagulation Clinical Quality Measures Stroke: Date of last known well: Feb 25, 2022 Time of last known well: 17:00 BARBARA HILLS MD Mar 03, 2022 15:11
[2022-03-03 15:47] VITALS: BP 98/61
[2022-03-03] MEDS: AtorvaSTATin TABLET 10 MG TABLET PO SCH (20:00)
[2022-03-03] MEDS: TAMSULOSIN 0.4 MG (FLOMAX) CAP PO SCH (20:00)
[2022-03-03 20:09] VITALS: BP 113/59
[2022-03-04] VITALS (8 sets, daily range): BP systolic 94–146; BP diastolic 53–88
[2022-03-04] MEDS: NS IV 500 ML 500 ML IV SCH ×2 (02:57→20:21)
[2022-03-04] MEDS: inSUlin ASPART (NovoLOG) 1 UNIT/0.01 ML (CHARGE PER UNIT) SC SCH ×4 (05:33→21:00)
[2022-03-04 05:58] LABS: HEMATOCRIT 41 % (40-54); HEMOGLOBIN 13.3 g/dL (13.3-17.7); MEAN CORPUSCULAR HEMOGLOBIN 29 pg (25-34); MEAN CORPUSCULAR HGB CONC 32 g/dL (32-36); MEAN CORPUSCULAR VOLUME 88 fL (80-99); MEAN PLATELET VOLUME 10.1 fL (9.0-12.2); PLATELET COUNT 316 10^3/uL (130-400); WHITE BLOOD COUNT 8.7 10^3/uL (4.3-11.0)
[2022-03-04 06:05] LABS: POTASSIUM 3.9 MMOL/L (3.6-5.0)
[2022-03-04 06:06] LABS: CALCIUM 9.4 MG/DL (8.5-10.1)
[2022-03-04 06:11] LABS: CREATININE SERUM 1.4 MG/DL (0.60-1.30)
[2022-03-04] MEDS: POTASSIUM CL 10MEQ/50ML IVPB 50 ML IV SCH (06:11)
[2022-03-04] MEDS: KCL 20 MEQ TAB (K-DUR) PO SCH (06:11)
[2022-03-04 06:13] LABS: MAGNESIUM 1.9 MG/DL (1.6-2.4)
[2022-03-04] MEDS: CATHETER FLUSH 10 ML SYR IVP SCH ×3 (06:17→20:21)
[2022-03-04] MEDS: MAGNESIUM 1 GM/100 ML IVPB 100 ML IV SCH (06:17)
[2022-03-04] MEDS: DRONEDARONE 400 MG TABLET PO SCH ×2 (08:31→20:21)
[2022-03-04] MEDS: PANTOPRAZOLE 40 MG (PROTONIX) TAB PO SCH (08:31)
[2022-03-04] MEDS: APIXABAN 5 MG (ELIQUIS) TABLET PO SCH ×2 (08:31→20:21)
[2022-03-04] MEDS: ASPIRIN E.C. 81 MG (ECOTRIN) TAB PO SCH (08:32)
[2022-03-04] MEDS: glipiZIDE 5 MG (GLUCOTROL) TAB PO SCH (08:32)
--- NOTE | 2022-03-04 10:08 | Physical Therapy Daily Note ---
PT Daily Note-Current Subjective Patient sitting in the recliner upon PT arrival, agreeable to treatment. Reports 0/10 pain currently. SPECIAL EDUCATOR reports patient had a shower a little while ago. Pain Section J - Health Conditions 1. Rarely or not at all 2. Occasionally 3. Frequently 4. Almost constantly 8. Unable to answer Pain Effect on Sleep: 0 Pain Interference with Therapy: 0 Pain Interference w/Day-to-Day: 0 Mental Status Patient Orientation: Person Transfers SCALE: Activities may be completed with or without assistive devices. 9-Qoejrzwvrr-snjhhdk completes the activity by him/herself with no assistance from a helper. 5-Set-up or Clean-up Assistance-helper sets up or cleans up; patient completes a ctivity. [place] assists only prior to or following the activity. 4-Supervision or Touching Assistance-helper provides verbal cues and/or touching/steadying and/or contact guard assistance as patient completes activity. Assistance may be provided throughout the activity or intermittently. 3-Partial/Moderate Assistance-helper does LESS THAN HALF the effort. [place] lifts, holds or supports trunk or limbs, but provides less than half the effort. 2-Substantial/Maximal Assistance-helper does MORE THAN HALF the effort. [place] lifts or holds trunk or limbs and provides more than half the effort. 7-Xiutxjuse-wmbmvi does ALL the effort. Patient does none of the effort to complete the activity. Or, the assistance of 2 or more helpers is required for the patient to complete the activity. If activity was not attempted, code reason: 7-Patient Refused. 9-Not Applicable-not attempted and the patient did not perform the activity before the current illness, exacerbation or injury. 10-Not Attempted due to Environmental Limitations-(lack of equipment, weather restraints, etc.). 88-Not Attempted due to Medical Conditions or Safety Concerns. Sit to Stand (QC): 3 Chair/Ajg-us-Szmtf Xfer(QC): 3 Gait Training Does the Patient Walk?: Yes Distance: 120 Walk 10 feet (QC): 3 Walk 50 ft with 2 Turns(QC): 2 Gait Persons Needed: 2 Gait Assistive Device: FWW Patient ambulates 120 feet however upon returning to room began to not follow commands and lost his balance with the FWW. SPECIAL EDUCATOR was able to get recliner so that patient could sit down. Assessment Current Status: Poor Progress Patient performs all observed transfers with mod/max A. Patient ambulates 120 feet with FWW, with mod/max A and verbal cues for safety, progression, posture and correct usage of the FWW. Patient ambulates 120 feet however upon returning to room began to not follow commands and lost his balance with the FWW. SPECIAL EDUCATOR was able to get recliner so that patient could sit down. Prior to needing the recliner, patient forcefully put his right hand into a flexed position that only allowed him to support himself on the FWW with his left thumb. PT manually corrected this ~ 5 times, however patient would immediately return to the described position. He also had difficulty controlling the FWW and his own posture. Patient in recliner post treatment with all needs met, nursing notified, call light in hand, and chair alarm activated. PT Field Services Director Goals Assisted Goals PT Field Services Director Goals Time Frame: Mar 08, 2022 Roll Left & Right (QC): 6 Sit to Lying (QC): 6 Lying-Sitting on Side/Bed(QC): 6 Sit to Stand (QC): 6 Chair/Gap-mh-Yakni Xfer(QC): 6 Walk 10 feet (QC): 6 Walk 50ft with 2 Turns (QC): 6 Walk 150 ft (QC): 6 PT Plan Treatment/Plan Treatment Plan: Continue Plan of Care Treatment Plan: Education, Functional Activity Lisseth, Functional Strength, Gait, Safety, Therapeutic Exercise, Transfers Treatment Duration: Mar 06, 2022 Frequency: 6 times per week Estimated Hrs Per Day: .25 hour per day Patient and/or Family Agrees t: Yes Safety Risks/Education Patient Education: Gait Training, Transfer Techniques Teaching Recipient: Patient Teaching Methods: Demonstration, Discussion Response to Teaching: Reinforcement Needed Time/GCodes Time In: 950 Time Out: 1002 Total Billed Treatment Time: 12 Total Billed Treatment Visit, Gait JESS BRODERICK PT Mar 04, 2022 10:07
--- NOTE | 2022-03-04 11:01 | Progress Note - Hospitalist ---
Subjective HPI/CC On Admission Date Seen by Provider: Mar 04, 2022 Patient is a 81-year-old male with past medical history of hypertension, insulin-dependent diabetes, paroxysmal A. fib who presented to the emergency department due to left-sided weakness. 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 stroke neurology was contacted and stated he was not a candidate for intervention. The y did recommend inpatient admission for anticoagulation and further therapy. He elected to leave AMA from that visit. He went home and thought that he was more unsteady and that his vision was somewhat blurry. He decided to return to the emergency department for further evaluation and was then agreeable to admission. This morning he reports that his symptoms are much improved. He is scheduled for MRI. His only complaint is that he is hungry. Subjective/Events-last exam Pt reports doing well. Coordination much improved today. Denies any complaints. RN Reports he is doing much better as well. Objective Exam Vital Signs Vital Signs Date Time Temp Pulse Resp B/P (MAP) Pulse Ox O2 Delivery O2 Flow Rate FiO2 03/04/22 08:56 36.9 82 95 03/04/22 08:00 Room Air 03/04/22 07:32 18 133/88 (103) 02/27/22 10:48 21 Capillary Refill : Less Than 3 Seconds General Appearance: No Apparent Distress, WD/WN Respiratory: Lungs Clear, No Respiratory Distress Cardiovascular: Regular Rate, Rhythm, No Murmur Gastrointestinal: Normal Bowel Sounds, Non Tender, Soft Neurologic/Psychiatric: Alert, Oriented x3; No Aphasia; Motor Weakness (very mild left upper extremity weakness) Skin: Warm/Dry Results/Procedures Lab Laboratory Tests 03/04/22 05:12 Patient resulted labs reviewed. Imaging: Reviewed Imaging Report Assessment/Plan Assessment and Plan Assess & Plan/Chief Complaint Acute CVA CTA with occlusion, severe stenosis of right P1 No intervention warranted per [facility] stroke neurology on admission, just anticoagulation has statin allergy so unable to give statin, also unable to give ASA due to allergies MRI confirmed acute CVA Continue anticoagulation with Eliquis PT/OT/ST Again had worsening of symptoms so CODE stroke activated and repeat imaging, not a candidate for TPA given on anticoagulation I called and spoke with [facility] on 03/03 to confirm not a candidate for intervention, Reviewed exam and imaging and neurologist confirms patient is not a candidate for intervention and expectant management as we are doing, I asked specifically regarding referral for vascular surgery due to known stenosis and she states not urgent but to follow up quickly upon discharge Much improved today, continue to monitor pAF CAD HTN HLD Cardiology consulted, appreciate recs Remains in sinus rhythm Multaq Continue Eliquis ANA-resolved Creatinine hovering from 1.2- 1.4 Trend IDDMII BS improved with glipizide Continue to hold home levemir but if BS continues to increase will resume at a lower dose BPH Flomax DVT ppx: already on anticoagulation Clinical Quality Measures Stroke: Date of last known well: Feb 25, 2022 Time of last known well: 17:00 BARBARA HILLS MD Mar 04, 2022 11:01
--- NOTE | 2022-03-04 12:58 | Progress Note - Cardiology ---
Cardiology SOAP Progress Note Subjective: Does not indicate chest pain, palp, shortness of breath, n/v/d Objective: I&O/Vital Signs 03/04/22 03/04/22 03/04/22 03/04/22 01:00 03:48 07:00 07:32 Temp 36.9 36.9 Pulse 83 83 83 82 Resp 16 18 B/P (MAP) 103/60 (74) 133/88 (103) Pulse Ox 97 95 O2 Delivery Room Air Room Air 03/04/22 03/04/22 03/04/22 08:00 08:56 11:32 Temp 36.9 36.8 Pulse 82 92 Resp 18 B/P (MAP) 135/78 (97) Pulse Ox 95 94 O2 Delivery Room Air Room Air 03/04/22 00:00 Intake Total 1517 ml Output Total 1120 ml Balance 397 ml Weight (Pounds): 180 Weight (Ounces): 4.0 Weight (Calculated Kilograms): [id number] Constitutional: well-developed, other (answers questions in monsyllable, appears oriented and comfortable) Respiratory: No accessory muscle use; other (good, bilateral air entry) Cardiovascular: regular rate-rhythm, S1 and S2, systolic murmur (soft VANESSA at card base) Gastrointestional: No tender; soft; No guarding, No rebound; audible bowel sounds Extremities: No clubbing, No cyanosis; significant edema Neurologic/Psychiatric: other (L arm weakness) Skin: normal color, warm/dry; No rash on exposed areas, No ulcerations on exposed areas Results/Procedures: Labs Laboratory Tests 03/03/22 15:08: Glucometer 141H 03/03/22 20:08: Glucometer 201H 03/04/22 05:12: White Blood Count 8.7, Red Blood Count 4.65, Hemoglobin 13.3, Hematocrit 41, Mean Corpuscular Volume 88, Mean Corpuscular Hemoglobin 29, Mean Corpuscular Hemoglobin Concent 32, Red Cell Distribution Width 13.8, Platelet Count 316, Mean Platelet Volume 10.1, Sodium Level 141, Potassium Level 3.9, Chloride Level 111H, Carbon Dioxide Level 19L, Anion Gap 11, Blood Urea Nitrogen 14, Creatinine 1.40H, Estimat Glomerular Filtration Rate 51, BUN/Creatinine Ratio 10, Glucose Level 139H, Calcium Level 9.4, Magnesium Level 1.9 03/04/22 05:31: Glucometer 130H 03/04/22 11:22: Glucometer 221H A/P: Assessment: CVA: left sided weakness, tingling to lips, onset of symptoms 02/25/22. - MRI of head on 02/27/22: There are small patchy areas of acute cerebral infarct involving the right occipital lobe and medial right temporal lobe region. There are small areas of infarct involving the posterior aspect of the right thalamus. There is a small amount of increased T2 signal in the region.There is no intra parenchymal hemorrhage. There is a small focal area of infarct involving the posterior left frontal lobe [place] radiata region. Patient has known occlusion of the right P1 [employer] region. Chronic small vessel ischemic disease and leukoaraiosis. Paroxysmal atrial fibrillation/flutter. Has been maintained on digoxin and Cardizem as outpatient. Patient has history of multiple breakthrough with atrial flutter, he has seen Dr. Grover and Dr. Tilley in the past. - Unable to take class Ic antiarrhythmic medication due to recurrent angina. - Chronically on Eliquis as an outpatient - on Multaq and currently NSR Coronary artery disease, history of CABG, multiple cardiac catheterization in the past, last cardiac catheterization September 2016 showing severe [place] disease with patent vein graft to the right coronary artery, diagonal artery, LAD and occluded vein graft to the obtuse marginal branch - Intolerance to Brilinta causing increased dyspnea Sinus node dysfunction with episode of bradycardia. Intolerant to beta blockers in the past, intolerant to amiodarone. H/o hypertension and h/o orthostatic hypotension Hyperlipidemia - treated with atorvastatin Peripheral arterial disease Degenerative joint disease Diabetes mellitus History of pancreatitis Plan: * I spoke with the patient, examined him and reviewed his records * Is reported to have intolerance to amiodarone (bradycardia) but currently taking dronedarone w/o difficulty and maintaining NSR * On apixaban for stroke prophylaxis * Monitor labs Clinical Quality Measures Stroke: Date of last known well: Feb 25, 2022 Time of last known well: 17:00 ISIDRO HOANG MD FACP FAC CCDS Mar 04, 2022 12:58
[2022-03-04] MEDS: AtorvaSTATin TABLET 10 MG TABLET PO SCH (20:21)
[2022-03-04] MEDS: TAMSULOSIN 0.4 MG (FLOMAX) CAP PO SCH (20:21)
[2022-03-05 03:31] VITALS: BP 113/71
[2022-03-05] MEDS: inSUlin ASPART (NovoLOG) 1 UNIT/0.01 ML (CHARGE PER UNIT) SC SCH ×4 (05:25→20:20)
[2022-03-05 05:39] LABS: HEMATOCRIT 41 % (40-54); HEMOGLOBIN 13.3 g/dL (13.3-17.7); MEAN CORPUSCULAR HEMOGLOBIN 29 pg (25-34); MEAN CORPUSCULAR HGB CONC 32 g/dL (32-36); MEAN CORPUSCULAR VOLUME 89 fL (80-99); MEAN PLATELET VOLUME 10.2 fL (9.0-12.2); PLATELET COUNT 327 10^3/uL (130-400); WHITE BLOOD COUNT 8.5 10^3/uL (4.3-11.0)
[2022-03-05 05:55] LABS: POTASSIUM 3.8 MMOL/L (3.6-5.0)
[2022-03-05 05:56] LABS: CALCIUM 9.4 MG/DL (8.5-10.1)
[2022-03-05] MEDS: KCL 20 MEQ TAB (K-DUR) PO SCH (05:59)
[2022-03-05] MEDS: CATHETER FLUSH 10 ML SYR IVP SCH ×3 (06:00→20:21)
[2022-03-05] MEDS: POTASSIUM CL 10MEQ/50ML IVPB 50 ML IV SCH (06:00)
[2022-03-05] MEDS: MAGNESIUM 1 GM/100 ML IVPB 100 ML IV SCH (06:00)
[2022-03-05 06:01] LABS: CREATININE SERUM 1.28 MG/DL (0.60-1.30)
[2022-03-05 06:03] LABS: MAGNESIUM 1.9 MG/DL (1.6-2.4)
[2022-03-05 07:22] VITALS: BP 104/68
[2022-03-05] MEDS: PANTOPRAZOLE 40 MG (PROTONIX) TAB PO SCH (09:45)
[2022-03-05] MEDS: glipiZIDE 5 MG (GLUCOTROL) TAB PO SCH (09:45)
[2022-03-05] MEDS: DRONEDARONE 400 MG TABLET PO SCH ×2 (09:45→20:20)
[2022-03-05] MEDS: ASPIRIN E.C. 81 MG (ECOTRIN) TAB PO SCH (09:45)
[2022-03-05] MEDS: APIXABAN 5 MG (ELIQUIS) TABLET PO SCH ×2 (09:46→20:20)
--- NOTE | 2022-03-05 10:15 | Progress Note - Hospitalist ---
Subjective HPI/CC On Admission Date Seen by Provider: Mar 05, 2022 Patient is a 81-year-old male with past medical history of hypertension, insulin-dependent diabetes, paroxysmal A. fib who presented to the emergency department due to left-sided weakness. 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 stroke neurology was contacted and stated he was not a candidate for intervention. The y did recommend inpatient admission for anticoagulation and further therapy. He elected to leave AMA from that visit. He went home and thought that he was more unsteady and that his vision was somewhat blurry. He decided to return to the emergency department for further evaluation and was then agreeable to admission. This morning he reports that his symptoms are much improved. He is scheduled for MRI. His only complaint is that he is hungry. Subjective/Events-last exam Pt reports doing well. No complaints. Left sided deficits nearly resolved. Objective Exam Vital Signs Vital Signs Date Time Temp Pulse Resp B/P (MAP) Pulse Ox O2 Delivery O2 Flow Rate FiO2 03/05/22 08:23 Room Air 03/05/22 07:22 37.0 80 16 104/68 (80) 98 02/27/22 10:48 21 Capillary Refill : Less Than 3 Seconds General Appearance: No Apparent Distress, WD/WN Respiratory: Lungs Clear, No Respiratory Distress Cardiovascular: Regular Rate, Rhythm, No Murmur Gastrointestinal: Normal Bowel Sounds, Soft Neurologic/Psychiatric: Alert, Oriented x3, Motor Weakness Results/Procedures Lab Laboratory Tests 03/05/22 05:10 Patient resulted labs reviewed. Imaging: Reviewed Imaging Report Assessment/Plan Assessment and Plan Assess & Plan/Chief Complaint Acute CVA CTA with occlusion, severe stenosis of right P1 No intervention warranted per [facility] stroke neurology on admission, just anticoagulation has statin allergy so unable to give statin, also unable to give ASA due to allergies MRI confirmed acute CVA Continue anticoagulation with Eliquis PT/OT/ST Again had worsening of symptoms so CODE stroke activated and repeat imaging, not a candidate for TPA given on anticoagulation I called and spoke with [facility] on 03/03 to confirm not a candidate for intervention, Reviewed exam and imaging and neurologist confirms patient is not a candidate for intervention and expectant management as we are doing, I asked specifically regarding referral for vascular surgery due to known stenosis and she states not urgent but to follow up quickly upon discharge Appears to be at baseline Hopeful to DC tomorrow with Home Health and vascular surgery follow up pAF CAD HTN HLD Cardiology consulted, appreciate recs Remains in sinus rhythm Multaq Continue Eliquis ANA-resolved Creatinine hovering from 1.2- 1.4 Trend IDDMII BS improved with glipizide Continue to hold home levemir but if BS continues to increase will resume at a lower dose BPH Flomax DVT ppx: already on anticoagulation Clinical Quality Measures Stroke: Date of last known well: Feb 25, 2022 Time of last known well: 17:00 BARBARA HILLS MD Mar 05, 2022 10:15
[2022-03-05 11:05] VITALS: BP 120/57
[2022-03-05] MEDS: NS IV 500 ML 500 ML IV SCH (12:29)
--- NOTE | 2022-03-05 15:14 | Progress Note - Cardiology ---
Cardiology SOAP Progress Note Subjective: No cp or palp or syncope No shortness of breath at rest Gen weakness and malaise are improving No n/v/d Objective: I&O/Vital Signs 03/05/22 03/05/22 03/05/22 03/05/22 03:31 07:00 07:22 08:23 Temp 37.0 37.0 Pulse 77 75 80 Resp 16 16 B/P (MAP) 113/71 (85) 104/68 (80) Pulse Ox 97 98 O2 Delivery Room Air Room Air Room Air 03/05/22 03/05/22 11:05 13:00 Temp 37.2 Pulse 72 79 Resp 20 B/P (MAP) 120/57 (78) Pulse Ox 97 O2 Delivery Room Air 03/05/22 00:00 Intake Total 890 ml Output Total 650 ml Balance 240 ml Weight (Pounds): 180 Weight (Ounces): 4.0 Weight (Calculated Kilograms): 81.251168 Constitutional: well-developed, other (answers questions in monsyllable, appears oriented and comfortable) Respiratory: No accessory muscle use; other (good, bilateral air entry) Cardiovascular: regular rate-rhythm, S1 and S2, systolic murmur (soft VANESSA at card base) Gastrointestional: No tender; soft; No guarding, No rebound; audible bowel sounds Extremities: No clubbing, No cyanosis; significant edema Neurologic/Psychiatric: other (L arm weakness) Skin: normal color, warm/dry; No rash on exposed areas, No ulcerations on exposed areas Results/Procedures: Labs Laboratory Tests 03/04/22 15:31: Glucometer 129H 03/04/22 20:05: Glucometer 142H 03/05/22 05:10: White Blood Count 8.5, Red Blood Count 4.64, Hemoglobin 13.3, Hematocrit 41, Mean Corpuscular Volume 89, Mean Corpuscular Hemoglobin 29, Mean Corpuscular Hemoglobin Concent 32, Red Cell Distribution Width 13.6, Platelet Count 327, Mean Platelet Volume 10.2, Sodium Level 139, Potassium Level 3.8, Chloride Level 110H, Carbon Dioxide Level 19L, Anion Gap 10, Blood Urea Nitrogen 12, Creatinine 1.28, Estimat Glomerular Filtration Rate 57, BUN/Creatinine Ratio 9, Glucose Level 102, Calcium Level 9.4, Magnesium Level 1.9 03/05/22 05:21: Glucometer 103 03/05/22 10:50: Glucometer 184H Laboratory Tests 03/04/22 05:12 03/05/22 05:10 A/P: Assessment: CVA: left-sided weakness, tingling to lips, onset of symptoms 02/25/22. - MRI of head on 02/27/22: There are small patchy areas of acute cerebral infarct involving the right occipital lobe and medial right temporal lobe region. There are small areas of infarct involving the posterior aspect of the right thalamus. There is a small amount of increased T2 signal in the region.There is no intra parenchymal hemorrhage. There is a small focal area of infarct involving the posterior left frontal lobe [place] radiata region. Patient has known occlusion of the right P1 B[place] [employer]VASSER region. Chronic small vessel ischemic disease and leukoaraiosis. Paroxysmal atrial fibrillation/flutter. Has been maintained on digoxin and Cardizem as outpatient. Patient has history of multiple breakthrough with atrial flutter, he has seen Dr. Grover and Dr. Tilley in the past. - Unable to take class Ic antiarrhythmic medication due to recurrent angina. - Chronically on Eliquis as an outpatient - on Multaq and currently NSR Coronary artery disease, history of CABG, multiple cardiac catheterization in past, last cardiac catheterization September 2016 showing severe rincon disease with patent vein graft to the right coronary artery, diagonal artery, LAD and occluded vein graft to the obtuse marginal branch - Intolerance to Brilinta causing increased dyspnea Sinus node dysfunction with episode of bradycardia. Intolerant to beta blockers in the past, intolerant to amiodarone. H/o hypertension and h/o orthostatic hypotension Hyperlipidemia - treated with atorvastatin Peripheral arterial disease Degenerative joint disease Diabetes mellitus History of pancreatitis Plan: * I spoke with the patient, examined him and reviewed his records * Is reported to have intolerance to amiodarone (bradycardia) but currently taking dronedarone w/o difficulty and maintaining NSR * On apixaban for stroke prophylaxis * Monitor labs Clinical Quality Measures Stroke: Date of last known well: Feb 25, 2022 Time of last known well: 17:00 ISIDRO HOANG MD [facility] Mar 05, 2022 15:13
[2022-03-05 15:55] VITALS: BP 109/68
[2022-03-05 19:21] VITALS: BP 151/80
[2022-03-05] MEDS: TAMSULOSIN 0.4 MG (FLOMAX) CAP PO SCH (20:20)
[2022-03-05] MEDS: AtorvaSTATin TABLET 10 MG TABLET PO SCH (20:20)
[2022-03-06] VITALS: BP 151/87
[2022-03-06 04:00] VITALS: BP 131/87
[2022-03-06] MEDS: inSUlin ASPART (NovoLOG) 1 UNIT/0.01 ML (CHARGE PER UNIT) SC SCH ×2 (05:06→12:19)
[2022-03-06] MEDS: NS IV 500 ML 500 ML IV SCH (05:07)
[2022-03-06] MEDS: CATHETER FLUSH 10 ML SYR IVP SCH ×2 (05:07→14:15)
[2022-03-06] MEDS: POTASSIUM CL 10MEQ/50ML IVPB 50 ML IV SCH (06:00)
[2022-03-06] MEDS: KCL 20 MEQ TAB (K-DUR) PO SCH (06:00)
[2022-03-06] MEDS: MAGNESIUM 1 GM/100 ML IVPB 100 ML IV SCH (06:00)
[2022-03-06 06:31] LABS: POTASSIUM 4.1 MMOL/L (3.6-5.0)
[2022-03-06 06:38] LABS: MAGNESIUM 1.9 MG/DL (1.6-2.4)
[2022-03-06 07:42] VITALS: BP 133/76
[2022-03-06] MEDS: DRONEDARONE 400 MG TABLET PO SCH (08:26)
[2022-03-06] MEDS: ASPIRIN E.C. 81 MG (ECOTRIN) TAB PO SCH (08:26)
[2022-03-06] MEDS: APIXABAN 5 MG (ELIQUIS) TABLET PO SCH (08:26)
[2022-03-06] MEDS: PANTOPRAZOLE 40 MG (PROTONIX) TAB PO SCH (08:26)
[2022-03-06] MEDS: glipiZIDE 5 MG (GLUCOTROL) TAB PO SCH (08:26)
--- NOTE | 2022-03-06 09:11 | Cardiology Progress Note ---
Subjective Date Seen by Provider: Mar 06, 2022 Time Seen by Provider: 08:30 Subjective/Events-last exam Patient sitting up in chair, no new complaints Objective-Cardiology Exam Last Set of Vital Signs Vital Signs 03/06/22 03/06/22 07:42 08:00 Temp 36.6 Pulse 74 Resp 18 B/P (MAP) 133/76 (95) Pulse Ox 95 O2 Delivery Room Air I&O Intake and Output 03/06/22 00:00 Intake Total 2490 ml Output Total 2245 ml Balance 245 ml Intake Oral 1990 ml IV Total 500 ml Output Urine Total 2245 ml General: Alert, Oriented X3 HEENT: Atraumatic Neck: Supple, No JVD Lungs: Clear to Auscultation, Normal Air Movement Heart: Regular Rate, Normal S1, Normal S2 Abdomen: Normal Bowel Sounds, Soft Extremities: No Clubbing, No Cyanosis, No Edema Skin: No Rashes, No Significant Lesion Neuro: Normal Gait, Normal Speech Psych/Mental Status: Mental Status NL, Mood NL Results Lab Laboratory Tests 03/06/22 06:00 A/P-Cardiology Admission Diagnosis CVA PAF CAD HTN Assessment/Plan CVA, presented to ER with c/o left sided weakness, tingling to lips, onset of symptoms 02/25/22. 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 No intervention warranted per [facility] stroke neurology. Patient has been maintained on Eliquis as outpatient, reports compliance with medications. Paroxysmal atrial fibrillation/flutter. Has been maintained on digoxin and Cardizem as outpatient. Patient has history of multiple breakthrough with atrial flutter, he has seen Dr. Grover and Dr. Tilley in the past. Unable to take class Ic antiarrhythmic medication due to recurrent angina. Has been on Eliquis as an outpatient. I referred him to EP in the past for possible ablation and patient did not go. Patient went back to atrial flutter with rapid ventricular response during this admission, he was started on amiodarone drip and he converted to sinus rhythm I will continue with oral Multaq [id number] score 6, maintained on Eliquis and educated on compliance History of chest pain, he was scheduled for stress test multiple times and did not show up. I did not see him for the past year but he reported that he has been feeling better and no chest pain was reported Coronary artery disease, history of CABG, multiple cardiac catheterization in the past, last cardiac catheterization September 2016 showing severe [place] disease with patent vein graft to the right coronary artery, diagonal artery, LAD and occluded vein graft to the obtuse marginal branch which is probably the reason of his chest pain. Medical therapy is recommended Intolerance to Brilinta causing increased dyspnea Sinus node dysfunction with episode of bradycardia. Intolerant to beta blockers in the past, intolerant to amiodarone. Hypertension, controlled, maintained on Cardizem CD 240. I will consider decreasing the dose if patient continues to have orthostatic hypotension. Hyperlipidemia, LDL 95, started on Lipitor, continue to monitor. Peripheral arterial disease Degenerative joint disease Diabetes mellitus History of pancreatitis Supervisory-Addendum Brief Supervisory Addendum Participated in pt care: history, MDM, physical Personally performed: exam, history, MDM Care discussed with: NANCY Results interpretation: Verified all documentation Notes: Patient was seen and evaluated with Radha, examination performed, management plan was discussed, agree with the current scribed note, I made few changes to the note using Italic font Patient was seen at bedside, sitting comfortably, feeling better No new complaint Continue on current medication continue with physical therapy. RADHA KAT Mar 06, 2022 09:11 BISI GARCIA MD Mar 06, 2022 09:46
--- NOTE | 2022-03-06 09:52 | Physical Therapy Daily Note ---
PT Daily Note-Current Subjective Patient agrees to PT. Pain Section J - Health Conditions 1. Rarely or not at all 2. Occasionally 3. Frequently 4. Almost constantly 8. Unable to answer Pain Effect on Sleep: 8 Pain Interference with Therapy: 8 Pain Interference w/Day-to-Day: 8 Mental Status Patient Orientation: Person Transfers SCALE: Activities may be completed with or without assistive devices. 6-Jujrrxfhjb-xtcnkep completes the activity by him/herself with no assistance from a helper. 5-Set-up or Clean-up Assistance-helper sets up or cleans up; patient completes activity. [place] assists only prior to or following the activity. 4-Supervision or Touching Assistance-helper provides verbal cues and/or touching/steadying and/or contact guard assistance as patient completes activity. Assistance may be provided throughout the activity or intermittently. 3-Partial/Moderate Assistance-helper does LESS THAN HALF the effort. [place] lifts, holds or supports trunk or limbs, but provides less than half the effort. 2-Substantial/Maximal Assistance-helper does MORE THAN HALF the effort. [place] lifts or holds trunk or limbs and provides more than half the effort. 0-Muqkibkro-lmsfjw does ALL the effort. Patient does none of the effort to complete the activity. Or, the assistance of 2 or more helpers is required for the patient to complete the activity. If activity was not attempted, code reason: 7-Patient Refused. 9-Not Applicable-not attempted and the patient did not perform the activity before the current illness, exacerbation or injury. 10-Not Attempted due to Environmental Limitations-(lack of equipment, weather restraints, etc.). 88-Not Attempted due to Medical Conditions or Safety Concerns. Lying to Sitting/Side of Bed(Q: 6 Sit to Stand (QC): 4 Chair/Smj-pm-Davme Xfer(QC): 4 Gait Training Distance: 275' Walk 10 feet (QC): 4 Walk 50 ft with 2 Turns(QC): 4 Walk 150 ft (QC): 4 Gait Assistive Device: FWW much improved gait sequence and left hand placement with FWW use. Exercises Supine Ex: Ankle pumps, Heel Slides, Straight leg raise Supine Reps: 12 Seated Therapy Exercises: Long arc quads Seated Reps: 15 Assessment Patient improved on this date and is up in recliner with chair alarm activated. Patient remains mildly confused but more alert and able to safely participate with skilled therapy. PT Longterm Goals Longterm Goals PT Longterm Goals Time Frame: Mar 08, 2022 Roll Left & Right (QC): 6 Sit to Lying (QC): 6 Lying-Sitting on Side/Bed(QC): 6 Sit to Stand (QC): 6 Chair/Gqb-fj-Binzz Xfer(QC): 6 Walk 10 feet (QC): 6 Walk 50ft with 2 Turns (QC): 6 Walk 150 ft (QC): 6 PT Plan Treatment/Plan Treatment Plan: Continue Plan of Care Treatment Plan: Education, Functional Activity Lisseth, Functional Strength, Gait, Safety, Therapeutic Exercise, Transfers Treatment Duration: Mar 06, 2022 Frequency: 6 times per week Estimated Hrs Per Day: .25 hour per day Patient and/or Family Agrees t: Yes Time/GCodes Time In: 755 Time Out: 818 Total Billed Treatment Time: 23 Total Billed Treatment 1 visit EX 10 min GT 13 min NOEL SIDHU PT Mar 06, 2022 09:52
[2022-03-06 11:53] VITALS: BP 143/80
[2022-03-06] MEDS ORDERED: ATOR10TA66 PO (12:38)
[2022-03-06] MEDS ORDERED: DRON400T6 PO (12:38)
[2022-03-06] MEDS ORDERED: ASPI-1238 PO (12:38)
--- NOTE | 2022-03-06 12:44 | D/C HH Face to Face Order ---
D/C Face to Face Orders Reconcile Patient Problems Problems Reviewed?: Yes Instructions for Patient [facility], Patient Instructions/FollowUp: Take medications as prescribed. Follow up with your PCP, Cardiology, and Vascular Surgery as scheduled. Return with worsening vision changes, weakness, or if you feel like you are getting worse. Physician to follow Patient: Delgado Discharge Diet for Home: Low Sodium Diet Patient Data-Allergies,Ht & Wt Patient Allergies: Coded Allergies: celecoxib (Unverified Allergy, Mild, TAKES ASPIRIN AT HOME, 01/28/19) diclofenac (Unverified Allergy, Mild, TAKES ASPIRIN AT HOME, 01/28/19) naproxen (Unverified Allergy, Mild, TAKES ASPIRIN AT HOME, 01/28/19) rosuvastatin (Unverified Allergy, Mild, 01/28/19) Penicillins (Verified Allergy, Unknown, 01/28/19) amoxicillin (Verified Allergy, Unknown, 01/28/19) fenofibrate (Unverified Allergy, Unknown, 01/28/19) gemfibrozil (Unverified Allergy, Unknown, 10/15/19) simvastatin (Unverified Allergy, Unknown, 01/28/19) Height (Feet): 6 Height (Inches): 0 Weight (Pounds): 180 Weight (Ounces): 4.0 Home Health Need/Face to Face Date of Face to Face: Mar 06, 2022 Clinical Findings: Generalized weakness and fatigue, Instability, Muscle weakness I have seen Pt [id number]: Yes Discharged To: Home Diagnosis/Conditions: Stroke AFib Diabetes HTN HLD CAD BPH Problems/Diagnosis/Condition: (1) Stroke (2) Paroxysmal atrial fibrillation (3) HTN (hypertension) (4) IDDM (insulin dependent diabetes mellitus) (5) Blurry vision Patient is Homebound due to: Raimundo fall risk due to instabilty, Muscle weakness Homebound Status Due to the above stated illness, injury or surgical procedure (medical condition or diagnosis) and associated clinical findings, the patient is homebound because of his/her inability to leave home except with aid of a supportive device and/or person AND leaving the home requires a considerable and taxing effort or is medically contraindicated. Pt req the following assistanc: Aid of another person Home Health Nursing Orders Home Health Services Order: Nursing Services, Blind Slat Stapling Machine Operator-Evaluate & Treat, Physical Therapy-Evaluate & Treat Home Health Infusion Therapy Line Start Date: Feb 27, 2022 Therapy Orders Therapy Orders: OT (must have SN or PT order), Physical Therapy Therapy Specific Orders: Eval assistive deivces, Teach enviro modifications/safety, Gait training, Increase strength/endurance Certify Stmt I certify that this patient is under my care and that I, a nurse practitioner or a physician; a rn first assistant working with me, had a face to face encounter that - meets the physician face to face encounter requirements with this patient as dated. GURDEEP LOPEZ MD Mar 06, 2022 12:44
[2022-03-06 14:52] VITALS: BP 143/80
== END 2022-03-06 14:54 | disposition home health service (06) | DRG 65 ==
LOC: EDUNIT# 04:02 → ER 04:03 → 4TH 04:20 → ICU 02-28 08:31 → 4TH 03-01 14:58
PROVIDERS: ADMIT Internal Medicine; ATTEND Internal Medicine
DX: I63.29 Cerebral infarction due to unspecified occlusion or stenosis of other precerebral arteries (principal); G81.94 Hemiplegia, unspecified affecting left nondominant side; I48.92 Unspecified atrial flutter; N17.9 Acute kidney failure, unspecified; I10 Essential (primary) hypertension; E11.9 Type 2 diabetes mellitus without complications; I48.0 Paroxysmal atrial fibrillation; I25.10 Atherosclerotic heart disease of native coronary artery without angina pectoris; Z95.1 Presence of aortocoronary bypass graft; Z95.5 Presence of coronary angioplasty implant and graft; R29.704 NIHSS score 4; Z96.653 Presence of artificial knee joint, bilateral; F41.9 Anxiety disorder, unspecified; F32.A Depression, unspecified; M19.90 Unspecified osteoarthritis, unspecified site; G89.29 Other chronic pain; M54.9 Dorsalgia, unspecified; K21.9 Gastro-esophageal reflux disease without esophagitis; K57.90 Diverticulosis of intestine, part unspecified, without perforation or abscess without bleeding; E11.43 Type 2 diabetes mellitus with diabetic autonomic (poly)neuropathy; K31.84 Gastroparesis; N40.0 Benign prostatic hyperplasia without lower urinary tract symptoms; E11.40 Type 2 diabetes mellitus with diabetic neuropathy, unspecified; I25.2 Old myocardial infarction; E78.00 Pure hypercholesterolemia, unspecified; J44.9 Chronic obstructive pulmonary disease, unspecified; Z79.01 Long term (current) use of anticoagulants; Z79.4 Long term (current) use of insulin; Z79.899 Other long term (current) drug therapy; Z91.199 Patient's noncompliance with other medical treatment and regimen due to unspecified reason; I49.5 Sick sinus syndrome; E11.51 Type 2 diabetes mellitus with diabetic peripheral angiopathy without gangrene
CPT/HCPCS: 36415; 70450; 70551; 80048; 80053; 80061; 80162; 80306; 80320; 81000; 82947; 83735; 84100; 84132; 84484; 85025; 85027; 85610; 85730; 90662; 93005; 93041; 93306; 94640; 94664; 94760

== ENCOUNTER 2022-03-14 20:08 | Emergency (ER) | payer MEDICARE, MEDICAID ==
[~2022-03-14 20:08] MED LIST changes: +ALBU8.5H6 IH; +ASPI-1238 PO; +BUDE10.2 INH; +FEXO-338 PO; +IPRA3AMP31 NEB; -RT-ALBUINH IH; +RT-ALBUINH INH
--- NOTE | 2022-03-14 20:26 | ED General ---
General Chief Complaint: Dizziness/Syncope Stated Complaint: DIZZY Nursing Triage Note: PT ARRIVAL TO ER [facility]IA [facility] FROM HOME WITH COMPLAINT OF DIZZINESS SINCE 1400 THIS AFTERNOON. PT DENIES OTHER COMPLAINTS. PT STATES THAT HE HAD DIZZINESS TWO WEEKS AGO BEFORE HIS STROKE, SO HE WAS WORRIED AND WANTED TO BE CHECKED OUT. Source of Information: Patient Exam Limitations: No Limitations History of Present Illness Date Seen by Provider: Mar 14, 2022 Time Seen by Provider: 20:08 Initial Comments 81-year-old male presents from home via EMS for dizziness. He states symptoms started about 11:00 this afternoon. He was recently discharged from our hospital for similar symptoms related to an acute stroke. 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 He complains of some left leg weakness, numbness of his lips as well as dizziness. These are similar symptoms to his prior presentation. He states he did not really get better upon di scharge from the hospital previously. He has been taking his medications as prescribed. He was not a candidate for tPA or endovascular therapy according to stroke neurology at his last visit. He was supposed to follow-up with neurovascular specialist upon discharge. This has not yet happened. Allergies and Home Medications Allergies Coded Allergies: celecoxib (Unverified Allergy, Mild, TAKES ASPIRIN AT HOME, 01/28/19) diclofenac (Unverified Allergy, Mild, TAKES ASPIRIN AT HOME, 01/28/19) naproxen (Unverified Allergy, Mild, TAKES ASPIRIN AT HOME, 01/28/19) rosuvastatin (Unverified Allergy, Mild, 01/28/19) Penicillins (Verified Allergy, Unknown, 01/28/19) amoxicillin (Verified Allergy, Unknown, 01/28/19) fenofibrate (Unverified Allergy, Unknown, 01/28/19) gemfibrozil (Unverified Allergy, Unknown, 10/15/19) simvastatin (Unverified Allergy, Unknown, 01/28/19) Patient Home Medication List Home Medication List Reviewed: Yes Albuterol Sulfate (Proventil Hfa) 6.7 Gm Hfa.aer.ad, 2 PUFF INH Q6H PRN for SHORTNESS OF BREATH, (Reported) Entered as Reported by: JHON PAZ on 02/27/22 1142 Apixaban (Eliquis) 5 Mg Tablet, 5 MG PO BID, (Reported) Entered as Reported by: CASTRO BURLESON on 07/23/16 1855 Aspirin (Aspirin EC) 81 Mg Tablet.dr, 81 MG PO DAILY Prescribed by: GURDEEP LOPEZ on 03/06/22 1238 Atorvastatin Calcium (Atorvastatin Calcium) 10 Mg Tablet, 10 MG PO HS Prescribed by: GURDEEP LOPEZ on 03/06/22 1238 Budesonide/Formoterol Fumarate (Symbicort 160-4.5 Mcg Inhaler) 160 Mcg-4.5 Mc g/Actuation Hfa.aer.ad, 2 PUFF INH BID PRN for SHORTNESS OF BREATH, (Reported) Entered as Reported by: JHON PAZ on 02/27/22 1142 Cyclobenzaprine HCl (Cyclobenzaprine HCl) 5 Mg Tablet, 5-10 MG PO TID PRN for MUSCLE CRAMPS, (Reported) Entered as Reported by: JHON PAZ on 02/27/22 1142 Diltiazem HCl (Cartia Xt) 240 Mg Cap.er.24h, 240 MG PO DAILY, (Reported) Entered as Reported by: JHON PAZ on 02/27/22 1142 Dronedarone HCl (Multaq) 400 Mg Tablet, 400 MG PO BID Prescribed by: GURDEEP LOPEZ on 03/06/22 1238 Fexofenadine HCl (Fexofenadine HCl) 60 Mg Tablet, 60 MG PO BID PRN for ALLERGY SYMPTOMS, (Reported) Entered as Reported by: JHON PAZ on 02/27/22 1142 Glipizide (Glipizide) 10 Mg Tablet, 10 MG PO DAILY, (Reported) Entered as Reported by: ARTIS GONSALES on 10/09/19 1537 Insulin Detemir (Levemir Flextouch) 100 Unit/1 Ml Insuln.pen, 35 UNITS SQ BID, (Reported) Entered as Reported by: CASTRO BURLESON on 12/21/14 0459 Ipratropium/Albuterol Sulfate (Iprat-Albut 0.5-3(2.5) mg/3 ml) 0.5 Mg-3 Mg (2.5 Mg Base)/3 Ml Ampul.neb, 3 ML NEB Q6H PRN for SHORTNESS OF BREATH, (Reported) Entered as Reported by: JHON PAZ on 02/27/22 1143 Pantoprazole Sodium (Protonix) 40 Mg Tablet., 40 MG PO DAILY, (Reported) Entered as Reported by: JHON PAZ on 02/27/22 1142 Tamsulosin HCl (Flomax) 0.4 Mg Cap, 0.4 MG PO HS, (Reported) Entered as Reported by: JHON PAZ on 02/27/22 1142 Review of Systems Review of Systems Constitutional: dizziness EENTM: no symptoms reported Respiratory: no symptoms reported Cardiovascular: no symptoms reported Gastrointestinal: no symptoms reported Genitourinary: no symptoms reported Musculoskeletal: no symptoms reported Skin: no symptoms reported Psychiatric/Neurological: No Symptoms Reported Hematologic/Lymphatic: No Symptoms Reported Immunological/Allergic: no symptoms reported Past Wlribld-Isuces-Xzaprn Hx Patient Social History Tobacco Use?: No Use of E-Cig and/or Vaping dev: No Substance use?: No Alcohol Use?: No Pt feels they are or have been: No Immunizations Up To Date Tetanus Booster (TDap): Less than 5yrs PED Vaccines UTD: No Influenza Vaccine Up-to-Date: Yes; Up-to-Date First/Initial COVID19 Vaccinat: 2020 Second COVID19 Vaccination Danilo: 2020 Third COVID19 Vaccination Date: 2020 COVID19 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 GARCIA: CONCLUSION: 1. Severe tribe coronary artery disease corrected with the patent 4 bypass grafts. 2. Patent stent in the proximal vein graft to the obtuse marginal branch with good flow distally 3. Patent vein graft to the diagonal artery, vein graft to the right coronary artery and AMANDA to LAD with excellent flow distally 4. Normal left ventricular size and systolic function estimated ejection fraction 60 percent DISCUSSION AND RECOMMENDATION: Medical therapy is recommended no intervention is needed CABG X 4 VESSEL LINQ DEVICE PLACED PERIPHERAL CATHS WITH STENTS IN LEGS BILATERAL TOTAL KNEE REPLACEMENTS LUMBAR LAMINECTOMY CHOLESYCTECTOMY CATARACT SURGERY EGD'S WITH ESOPHAGEAL DILATIONS--LAST ONE 10/[address] CESIA BURTON MAURISIO FUNDOPLICATION/HIATAL HERNIA REPAIR 2004 CAD,HTN,COPD, TIA, BPH, RENAL INSUFF, IDDM, ARTHRITIS, ANX. LONG HISTORY OF NON-COMPLIANCE Surgeries: Yes (CORONARY BYPASS X4;LINQ; BILAT TKR;STENTS IN LEGS;LUMBAR LAMINECTOMY) Abdominal, Angioplasty, Cardiac, CABG, Coronary Stent, Eye Surgery, Gallbladder, Joint Replacement, Open Heart Surgery, Orthopedic, Vascular Surgery Respiratory: Yes (CHRONIC DYSPNEA ON EXERTION) Sleep Apnea, COPD Currently Using CPAP: No Currently Using BIPAP: No Cardiac: Yes (LINQ DEVICE IN PLACE; S/P CABG; CARDIAC AND LEG STENTS;AFIB/FLUTTER) Atrial Fibrillation, Chronic Edema/Swelling, Coronary Artery Disease, Heart Attack, High Cholesterol, Hypertension, Peripheral Vascular Neurological: Yes (POSSIBLE STROKE/ TIA) Neuropathy, Stroke, TIA Reproductive Disorders: No Sexually Transmitted Disease: No HIV/AIDS: No Genitourinary: Yes (RENAL INSUFFICIENCY-NO DIALYSIS) Benign Prostatic Hyperpl, Prostate Problems, Renal Failure Gastrointestinal: Yes (GASTROPARESIS;ESOPHAGEAL STRICTURES) Abdominal Hernia, Gastroesophageal Reflux, Chronic Constipation, Diverticulosis, Pancreatitis, Polyps, Esophagitis, Hiatal Hernia, Gall Bladder Disease Musculoskeletal: Yes (OLECRANON BURSITIS, CHRONIC NECK PAIN, DISH SYNDROME;BILAT TKR) Degenerate Disk Disease, Arthritis, Chronic Back Pain Endocrine: Yes Diabetes, Insulin dep HEENT: Yes Cataract Loss of Vision: Denies Hearing Impairment: Denies Cancer: No Psychosocial: Yes Anxiety, Depression Integumentary: No Blood Disorders: No Adverse Reaction/Blood Tranf: No (N/A) Family Medical History Cancer G8 BROTHER Cataract 19 FATHER 19 MOTHER G8 BROTHER G8 BROTHER G8 SISTER Congestive heart failure 19 FATHER 19 MOTHER Family history: Arthritis 19 FATHER 19 MOTHER G8 BROTHER G8 BROTHER G8 SISTER G8 SISTER DAUGHTER SON Family history: Breast disease DAUGHTER Family history: Cardiovascular disease 19 FATHER Family history: Diabetes mellitus 19 FATHER G8 BROTHER G8 SISTER Family history: Hypertension 19 FATHER 19 MOTHER G8 BROTHER G8 BROTHER G8 SISTER G8 SISTER DAUGHTER SON Family history: Thyroid disorder DAUGHTER Heart disease 19 FATHER 19 MOTHER G8 BROTHER Hypercholesterolemia 19 FATHER 19 MOTHER G8 BROTHER G8 BROTHER G8 SISTER Myocardial infarction 19 FATHER 19 MOTHER G8 BROTHER No Family History of: Abdominal aortic aneurysm Robel's disease Alcoholism Aphasia Cancer of colon Chest pain Congenital heart disease Cystic fibrosis Dementia Dysphagia Family history: Allergy Family history: Alzheimer's disease Family history: Asthma Family history: Coronary thrombosis Family history: Gastrointestinal disease Family history: Glaucoma Family history: Osteoporosis Headache Hearing loss Hereditary disease History of - anemia History of - disorder History of - respiratory disease History of drug abuse Human immunodeficiency virus (HIV) seropositivity Infertile Kidney disease Malignant neoplasm of lung Parkinson's disease Prostate cancer Psychotic disorder Seizure disorder Stroke Tuberculosis Visual impairment CAD Over 55 Years Old PAST SURGICAL HISTORY: -CARDIAC CATHS--STENTS IN HEART AND IN LEGS. LAST CARDIAC CATH 03/03/20--PATENT STENTS/GRAFTS, NO INTERVENTION -CABG -LINQ DEVICE IMPLANTED -LUMBAR LAMINECTOMY -BILATERAL TOTAL KNEE REPLACEMENTS -EGD'S WITH DILATIONS--LAST ONE 10/2019. -HIATAL HERNIA REPAIR/MAURISIO FUNDOPLICATION 2004 - Physical Exam Vital Signs Vital Signs - First Documented 03/14/22 20:08 Temp 35.2 Pulse 64 Resp 16 B/P (MAP) 153/74 (100) Pulse Ox 99 O2 Delivery Room Air Capillary Refill : Less Than 3 Seconds Height, Weight, BMI Height: 6'0" Weight: 180lbs. 4.0oz. 81.798913ei; 21.75 BMI Method:Stated General Appearance: No Apparent Distress, WD/WN HEENT: PERRL/EOMI, TMs Normal, Normal ENT Inspection, Pharynx Normal Neck: Full Range of Motion, Normal Inspection, Non Tender, Supple Respiratory: Chest Non Tender, Lungs Clear, Normal Breath Sounds, No Accessory Muscle Use, No Respiratory Distress Cardiovascular: Regular Rate, Rhythm, No Edema, No Gallop, No JVD, No Murmur, Normal Peripheral Pulses Gastrointestinal: Normal Bowel Sounds, No Organomegaly, No Pulsatile Mass Neurologic/Psychiatric: Alert, Oriented x3, Normal Mood/Affect, Other (Mild weakness of the left lower extremity.) Skin: Normal Color, Warm/Dry Lymphatic: No Adenopathy Progress/Results/Core Measures Suspected Sepsis SIRS Temperature: Pulse: 64 Respiratory Rate: 16 Laboratory Tests 03/14/22 20:20: White Blood Count 8.4 Blood Pressure 153 /74 Mean: 100 Laboratory Tests 03/14/22 20:20: Creatinine 1.39H, INR Comment 1.5H, Platelet Count 403H, Total Bilirubin 0.4 Results/Orders Lab Results Laboratory Tests Test 03/14/22 20:20 Range/Units White Blood Count 8.4 4.3-11.0 10^3/uL Red Blood Count 4.91 4.30-5.52 10^6/uL Hemoglobin 14.1 13.3-17.7 g/dL Hematocrit 44 40-54 % Mean Corpuscular Volume 89 80-99 fL Mean Corpuscular Hemoglobin 29 25-34 pg Mean Corpuscular Hemoglobin Concent 32 32-36 g/dL Red Cell Distribution Width 13.8 10.0-14.5 % Platelet Count 403 H 130-400 10^3/uL Mean Platelet Volume 9.8 9.0-12.2 fL Immature Granulocyte % (Auto) 0 % Neutrophils (%) (Auto) 71 42-75 % Lymphocytes (%) (Auto) 21 12-44 % Monocytes (%) (Auto) 5 0-12 % Eosinophils (%) (Auto) 2 0-10 % Basophils (%) (Auto) 1 0-10 % Neutrophils # (Auto) 6.0 1.8-7.8 10^3/uL Lymphocytes # (Auto) 1.7 1.0-4.0 10^3/uL Monocytes # (Auto) 0.5 0.0-1.0 10^3/uL Eosinophils # (Auto) 0.2 0.0-0.3 10^3/uL Basophils # (Auto) 0.0 0.0-0.1 10^3/uL Immature Granulocyte # (Auto) 0.0 0.0-0.1 10^3/uL Prothrombin Time 18.8 H 12.2-14.7 SEC INR Comment 1.5 H 0.8-1.4 Sodium Level 140 135-145 MMOL/L Potassium Level 3.7 3.6-5.0 MMOL/L Chloride Level 105 98-107 MMOL/L Carbon Dioxide Level 24 21-32 MMOL/L Anion Gap 11 5-14 MMOL/L Blood Urea Nitrogen 11 7-18 MG/DL Creatinine 1.39 H 0.60-1.30 MG/DL Estimat Glomerular Filtration Rate 52 BUN/Creatinine Ratio 8 Glucose Level 68 L 70-105 MG/DL Calcium Level 10.0 8.5-10.1 MG/DL Corrected Calcium 9.9 8.5-10.1 MG/DL Total Bilirubin 0.4 0.1-1.0 MG/DL Aspartate Amino Transf (AST/SGOT) 16 5-34 U/L Alkaline Phosphatase 80 40-136 U/L Total Protein 7.5 6.4-8.2 GM/DL Albumin 4.1 3.2-4.5 GM/DL My Orders Orders - JESUSITAANGELIC DO Comprehensive Metabolic Panel (03/14/22 20:20) Protime With Inr (03/14/22 20:20) Ct Head Wo (03/14/22 20:20) Cbc With Automated Diff (03/14/22 20:20) Ekg Tracing (03/14/22 20:20) Vital Signs/I&O 03/14/22 20:08 Temp 35.2 Pulse 64 Resp 16 B/P (MAP) 153/74 (100) Pulse Ox 99 O2 Delivery Room Air Capillary Refill : Less Than 3 Seconds Blood Pressure Mean: 100 ECG EKG : Comment Sinus rhythm with a first-degree AV block. Prolonged QT interval. Left axis deviation. No ST or T wave abnormalities. Few scattered premature atrial complexes. No STEMI. Diagnostic Imaging Comments [facility] [place] [place] NAME: CASTRO PADRON [facility] REC#: [id number] PT STATUS: ADM IN : 1940 PHYSICIAN: GURDEEP LOPEZ MD ADMIT DATE: 02/27/22 Signed Date of Exam:02/27/22 MRI BRAIN W/O CONTRAST CLINICAL INDICATION: Patient with left-sided weakness/CVA. EXAM: MRI of the brain performed without IV contrast. Sequences include sagittal T1, axial T2, axial FLAIR, axial gradient echo, DWI, ADC map, and axial T1. COMPARISON: CT angiogram of the head/neck dated 02/26/2022. FINDINGS: There is a small patchy area of diffusion restriction involving the right occipital lobe. There are small patchy areas of diffusion restriction involving the medial posterior right temporal lobe, posterior right thalamus, and a small focal area involving the posterior left frontal lobe cov[place] radiata region. There is a small amount of increased T2 signal in the region. There is brain parenchymal volume loss. There are multiple focal, patchy, and confluent areas of high T2 signal white matter changes involving both cerebral hemispheres and periventricular regions, likely representing chronic small vessel ischemic disease and leukoaraiosis. There is no hydrocephalus. Basal cisterns are unremarkable. The right NURSERY LABORER flow void is not seen, which correlates to occlusion seen on comparison CT angiogram of the head/neck. There is no evidence of intracranial hemorrhage. There is no brain herniation or midline shift. The extracranial soft tissue, skull, and orbits are unremarkable. Paranasal sinuses and mastoid air cells are clear. IMPRESSION: 1: There are small patchy areas of acute cerebral infarct involving the right occipital lobe and medial right temporal lobe region. There are small areas of infarct involving the posterior aspect of the right thalamus. There is a small amount of increased T2 signal in the region. There is no intraparenchymal hemorrhage. 2: There is a small focal area of infarct involving the posterior left frontal lobe covington radiata region. 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 4: Chronic small vessel ischemic disease and leukoaraiosis. Dictated by: Dictated on workstation # [id number] Dict: 02/27/22 1254 Trans: 02/27/221716 [id number] Interpreted by: IESHA GAMBINO MD Electronically signed by: IESHA GAMBINO MD 02/27/221716 Departure Communication (Admissions) By record review and the patient's own admission these are the exact symptoms that he was discharged from the hospital with and he has no new symptoms today. I spoke with the hospitalist on-call, Dr. Sunshine who does not believe the patient needs admission to the hospital at this time as there is likely no further intervention required. He does have scheduled follow-up with endovascular neurology at [facility] upcoming. He does have a cane at home and has been able to get around safely per his report. No believe there is indication for admission to the hospital. I did do a CT scan to ensure there is no hemorrhagic conversion of his previous stroke or other acute findings. The patient is discharged home in stable condition with close follow-up Impression Primary Impression: Left-sided weakness Additional Impressions: Dizziness Stroke Qualified Codes: I63.531 - Cerebral infarction due to unspecified occlusion or stenosis of right posterior cerebral artery Disposition: 01 HOME, SELF-CARE Condition: Stable Departure-Patient Inst. Referrals: ISRAEL AVALOS MD (PCP/Family) Primary Care Physician Add. Discharge Instructions: Keep your appointment at [facility] with the stroke specialist. Continue home medications as previously prescribed. Use your cane at home for ambulation. Return to the emergency department for any severe concerns. Follow-up department doctor in the next 3 to 4 days for further evaluation and treatment recommendations All discharge instructions reviewed with patient and/or family. Voiced understanding. ANGELIC MC DO Mar 14, 2022 20:26
[2022-03-14 20:28] LABS: BASOPHILS % (AUTO) 1 % (0-10); EOSINOPHILS # (AUTO) 0.2 10^3/uL (0.0-0.3); EOSINOPHILS % (AUTO) 2 % (0-10); HEMATOCRIT 44 % (40-54); HEMOGLOBIN 14.1 g/dL (13.3-17.7); LYMPHOCYTES # (AUTO) 1.7 10^3/uL (1.0-4.0); LYMPHOCYTES % (AUTO) 21 % (12-44); MEAN CORPUSCULAR HEMOGLOBIN 29 pg (25-34); MEAN CORPUSCULAR HGB CONC 32 g/dL (32-36); MEAN CORPUSCULAR VOLUME 89 fL (80-99); MEAN PLATELET VOLUME 9.8 fL (9.0-12.2); MONOCYTES # (AUTO) 0.5 10^3/uL (0.0-1.0); MONOCYTES % (AUTO) 5 % (0-12); NEUTROPHILS % (AUTO) 71 % (42-75); PLATELET COUNT 403 10^3/uL (130-400); WHITE BLOOD COUNT 8.4 10^3/uL (4.3-11.0)
[2022-03-14 20:44] LABS: INR 1.5 (0.8-1.4); PROTHROMBIN TIME PATIENT 18.8 SEC (12.2-14.7)
[2022-03-14 20:49] LABS: ALBUMIN 4.1 GM/DL (3.2-4.5); POTASSIUM 3.7 MMOL/L (3.6-5.0)
[2022-03-14 20:51] LABS: TOTAL PROTEIN 7.5 GM/DL (6.4-8.2)
[2022-03-14 20:53] LABS: BILIRUBIN,TOTAL 0.4 MG/DL (0.1-1.0)
[2022-03-14 20:55] LABS: CREATININE SERUM 1.39 MG/DL (0.60-1.30)
--- NOTE | 2022-03-14 21:07 | Diagnostic Imaging Report ---
INDICATION: dizziness, recent stroke TECHNIQUE: Routine non contrast-enhanced axial images were obtained from the skull base to the vertex. Auto Exposure Controls were utilized during the CT exam to meet ALARA standards for radiation dose reduction COMPARISON: 03/03/2022 FINDINGS: The ventricles and cortical sulci are diffusely prominent, compatible with age-related volume loss. There are confluent areas of abnormal, low attenuation in the periventricular white matter. This is consistent with chronic small vessel ischemic changes. Old small lacunar infarct of the left basal ganglia is also noted.. There is no midline shift or mass-effect. No acute intra-axial hemorrhage is seen. There are no abnormal areas of increased or decreased density to suggest acute hemorrhage or edema. No extra-axial masses or collections are present. The bony calvarium is intact. The visualized paranasal sinuses are unremarkable. The mastoid air cells are clear. IMPRESSION: 1. No acute intracranial abnormality. No CT evidence of mass, acute infarct or intracranial hemorrhage. 2. Old small lacunar infarct of left basal ganglia and background chronic small vessel ischemic changes in the deep white matter. Dictated by: Dictated on workstation # [id number]
[2022-03-14 21:30] VITALS: BP 123/76
== END 2022-03-14 21:30 | disposition home or self-care (01) ==
LOC: EDUNIT# 20:08 → ER 20:09
DX: I63.9 Cerebral infarction, unspecified (principal); E11.9 Type 2 diabetes mellitus without complications; Z79.4 Long term (current) use of insulin
CPT/HCPCS: 36415; 70450; 80053; 85025; 85610; 93005

== ENCOUNTER 2022-05-08 21:45 | Emergency (ER) | payer MEDICARE, MEDICAID ==
[~2022-05-08] VITALS: Ht 182.9 cm; Wt 79.0 kg
[~2022-05-08 21:45] MED LIST changes: -CILO100T PO; +CLOP-31 PO; -CLOP75TA69 PO; +NF-PLET100 PO
[2022-05-08 22:08] LABS: BASOPHILS # (AUTO) 0.1 10^3/uL (0.0-0.1); BASOPHILS % (AUTO) 1 % (0-10); EOSINOPHILS # (AUTO) 0.2 10^3/uL (0.0-0.3); EOSINOPHILS % (AUTO) 1 % (0-10); HEMATOCRIT 41 % (40-54); HEMOGLOBIN 12.8 g/dL (13.3-17.7); LYMPHOCYTES % (AUTO) 28 % (12-44); MEAN CORPUSCULAR HEMOGLOBIN 28 pg (25-34); MEAN CORPUSCULAR HGB CONC 31 g/dL (32-36); MEAN CORPUSCULAR VOLUME 90 fL (80-99); MEAN PLATELET VOLUME 9.8 fL (9.0-12.2); MONOCYTES # (AUTO) 0.7 10^3/uL (0.0-1.0); MONOCYTES % (AUTO) 6 % (0-12); NEUTROPHILS # (AUTO) 6.9 10^3/uL (1.8-7.8); NEUTROPHILS % (AUTO) 63 % (42-75); PLATELET COUNT 420 10^3/uL (130-400); WHITE BLOOD COUNT 10.8 10^3/uL (4.3-11.0)
[2022-05-08 22:13] LABS: INR 1.4 (0.8-1.4); PROTHROMBIN TIME PATIENT 17.4 SEC (12.2-14.7)
[2022-05-08 22:21] LABS: ALBUMIN 4.3 GM/DL (3.2-4.5); BILIRUBIN,TOTAL 0.6 MG/DL (0.1-1.0); CALCIUM 9.6 MG/DL (8.5-10.1); CREATININE SERUM 1.47 MG/DL (0.60-1.30); POTASSIUM 3.2 MMOL/L (3.6-5.0); TOTAL PROTEIN 7.9 GM/DL (6.4-8.2)
--- NOTE | 2022-05-08 22:23 | ED Fall/Injury ---
General Chief Complaint: Trauma-Non Activation Stated Complaint: BROKEN LEG Nursing Triage Note: R THIGH PAIN Source: patient Exam Limitations: no limitations History of Present Illness Date Seen by Provider: May 08, 2022 Time Seen by Provider: 21:51 Initial Comments This 82-year-old gentleman presents to the emergency room via EMS with injuries to the right thigh from a fall at home. He was carrying groceries into the house and tripped over a stool. He has gross deformity of the mid/distal right thigh consistent with femur fracture. Hip exam seems unremarkable. He retains a distal sensation in the foot and movement of the toes. Dorsal and posterior pedal pulses are audible with Doppler. Pulses are not palpable on either foot. Patient denies injury to any other part of his body. He denies striking his head or injuring his neck. He reports this to be purely a mechanical fall and denies any prodrome such as lightheadedness, chest pain, shortness of breath, or acute illness. He is anticoagulated on Eliquis due to history of atrial fibrillation. His last dose of Eliquis was this morning. Pain was controlled with fentanyl 100 mcg by EMS in route and morphine 4 mg on arrival. He is alert and oriented. Allergies and Home Medications Allergies Coded Allergies: celecoxib (Unverified Allergy, Mild, TAKES ASPIRIN AT HOME, 01/28/19) diclofenac (Unverified Allergy, Mild, TAKES ASPIRIN AT HOME, 01/28/19) naproxen (Unverified Allergy, Mild, TAKES ASPIRIN AT HOME, 01/28/19) rosuvastatin (Unverified Allergy, Mild, 01/28/19) Penicillins (Verified Allergy, Unknown, 01/28/19) amoxicillin (Verified Allergy, Unknown, 01/28/19) fenofibrate (Unverified Allergy, Unknown, 01/28/19) gemfibrozil (Unverified Allergy, Unknown, 10/15/19) simvastatin (Unverified Allergy, Unknown, 01/28/19) Patient Home Medication List Home Medication List Reviewed: Yes Albuterol Sulfate (Proventil Hfa) 6.7 Gm Hfa.aer.ad, 2 PUFF INH Q6H PRN for SHORTNESS OF BREATH, (Reported) Entered as Reported by: JHON PAZ on 02/27/22 1142 Apixaban (Eliquis) 5 Mg Tablet, 5 MG PO BID, (Reported) Entered as Reported by: CASTRO BURLESON on 07/23/16 1855 Aspirin (Aspirin EC) 81 Mg Tablet.dr, 81 MG PO DAILY Prescribed by: GURDEEP LOPEZ on 03/06/22 1238 Atorvastatin Calcium (Atorvastatin Calcium) 10 Mg Tablet, 10 MG PO HS Prescribed by: GURDEEP LOPEZ on 03/06/22 1238 Budesonide/Formoterol Fumarate (Symbicort 160-4.5 Mcg Inhaler) 160 Mcg-4.5 Mcg/Actuation Hfa.aer.ad, 2 PUFF INH BID PRN for SHORTNESS OF BREATH, (Reported) Entered as Reported by: JHON PAZ on 02/27/22 1142 Cyclobenzaprine HCl (Cyclobenzaprine HCl) 5 Mg Tablet, 5-10 MG PO TID PRN for MUSCLE CRAMPS, (Reported) Entered as Reported by: JHON PAZ on 02/27/22 1142 Diltiazem HCl (Cartia Xt) 240 Mg Cap.er.24h, 240 MG PO DAILY, (Reported) Entered as Reported by: JHON PAZ on 02/27/22 1142 Dronedarone HCl (Multaq) 400 Mg Tablet, 400 MG PO BID Prescribed by: GURDEEP LOPEZ on 03/06/22 1238 Fexofenadine HCl (Fexofenadine HCl) 60 Mg Tablet, 60 MG PO BID PRN for ALLERGY SYMPTOMS, (Reported) Entered as Reported by: JHON PAZ on 02/27/22 1142 Glipizide (Glipizide) 10 Mg Tablet, 10 MG PO DAILY, (Reported) Entered as Reported by: ARTIS GONSALES on 10/09/19 1537 Insulin Detemir (Levemir Flextouch) 100 Unit/1 Ml Insuln.pen, 35 UNITS SQ BID, (Reported) Entered as Reported by: CASTRO BURLESON on 12/21/14 0459 Ipratropium/Albuterol Sulfate (Iprat-Albut 0.5-3(2.5) mg/3 ml) 0.5 Mg-3 Mg (2.5 Mg Base)/3 Ml Ampul.neb, 3 ML NEB Q6H PRN for SHORTNESS OF BREATH, (Reported) Entered as Reported by: JHON PAZ on 02/27/22 1143 Pantoprazole Sodium (Protonix) 40 Mg Tablet.dr, 40 MG PO DAILY, (Reported) Entered as Reported by: JHON PAZ on 02/27/22 1142 Tamsulosin HCl (Flomax) 0.4 Mg Cap, 0.4 MG PO HS, (Reported) Entered as Reported by: JHON PAZ on 02/27/22 1142 Review of Systems Review of Systems Constitutional: no symptoms reported Eyes: No Symptoms Reported Ears, Nose, Mouth, Throat: no symptoms reported Respiratory: no symptoms reported Cardiovascular: see HPI Gastrointestinal: no symptoms reported Genitourinary: no symptoms reported Musculoskeletal: see HPI Skin: no symptoms reported Psychiatric/Neurological: No Symptoms Reported Past Rozknbd-Ckyzjx-Lsemlp Hx Patient Social History Tobacco Use?: No Smoking Status: Former Smoker Use of E-Cig and/or Vaping dev: No Substance use?: No Alcohol Use?: No Pt feels they are or have been: No Immunizations Up To Date Tetanus Booster (TDap): Less than 5yrs PED Vaccines UTD: No Influenza Vaccine Up-to-Date: Yes; Up-to-Date First/Initial COVID19 Vaccinat: 2020 Second COVID19 Vaccination Danilo: 2020 Third COVID19 Vaccination Date: 2020 Seasonal Allergies Seasonal Allergies: No Past Medical History Surgery/Hospitalization HX: CARDIAC CATHS-WITH STENT PLACEMENT--LAST CATH 03/03/[address] GARCIA: CONCLUSION: 1. Severe [place] coronary artery disease corrected with the patent 4 bypass grafts. 2. Patent stent in the proximal vein graft to the obtuse marginal branch with good flow distally 3. Patent vein graft to the diagonal artery, vein graft to the right coronary artery and AMANDA to LAD with excellent flow distally 4. Normal left ventricular size and systolic function estimated ejection fraction 60 percent DISCUSSION AND RECOMMENDATION: Medical therapy is recommended no intervention is needed CABG X 4 VESSEL LINQ DEVICE PLACED PERIPHERAL CATHS WITH STENTS IN LEGS BILATERAL TOTAL KNEE REPLACEMENTS LUMBAR LAMINECTOMY CHOLESYCTECTOMY CATARACT SURGERY EGD'S WITH ESOPHAGEAL DILATIONS--LAST ONE 10/[address] CESIA BURTON MAURISIO FUNDOPLICATION/HIATAL HERNIA REPAIR 2004 CAD,HTN,COPD, TIA, BPH, RENAL INSUFF, IDDM, ARTHRITIS, ANX. LONG HISTORY OF NON-COMPLIANCE Surgeries: Yes (CORONARY BYPASS X4;LINQ; BILAT TKR;STENTS IN LEGS;LUMBAR LAMINECTOMY) Abdominal, Angioplasty, Cardiac, CABG, Coronary Stent, Eye Surgery, Gallbladder, Joint Replacement, Open Heart Surgery, Orthopedic, Vascular Surgery Respiratory: Yes (CHRONIC DYSPNEA ON EXERTION) Sleep Apnea, COPD Currently Using CPAP: No Currently Using BIPAP: No Cardiac: Yes (LINQ DEVICE IN PLACE; S/P CABG; CARDIAC AND LEG STENTS;A FIB/FLUTTER) Atrial Fibrillation, Chronic Edema/Swelling, Coronary Artery Disease, Heart Attack, High Cholesterol, Hypertension, Peripheral Vascular Neurological: Yes (POSSIBLE STROKE/ TIA) Neuropathy, Stroke, TIA Reproductive Disorders: No Sexually Transmitted Disease: No HIV/AIDS: No Genitourinary: Yes (RENAL INSUFFICIENCY-NO DIALYSIS) Benign Prostatic Hyperpl, Prostate Problems, Renal Failure Gastrointestinal: Yes (GASTROPARESIS;ESOPHAGEAL STRICTURES) Abdominal Hernia, Gastroesophageal Reflux, Chronic Constipation, Diverticulosis, Pancreatitis, Polyps, Esophagitis, Hiatal Hernia, Gall Bladder Disease Musculoskeletal: Yes (OLECRANON BURSITIS, CHRONIC NECK PAIN, DISH SYNDROME;BILAT TKR) Degenerate Disk Disease, Arthritis, Chronic Back Pain Endocrine: Yes Diabetes, Insulin dep HEENT: Yes Cataract Loss of Vision: Denies Hearing Impairment: Denies Cancer: No Psychosocial: Yes Anxiety, Depression Integumentary: No Blood Disorders: Yes (Anemia) Adverse Reaction/Blood Tranf: No (N/A) Family Medical History Cancer G8 BROTHER Cataract 19 FATHER 19 MOTHER G8 BROTHER G8 BROTHER G8 SISTER Congestive heart failure 19 FATHER 19 MOTHER Family history: Arthritis 19 FATHER 19 MOTHER G8 BROTHER G8 BROTHER G8 SISTER G8 SISTER DAUGHTER SON Family history: Breast disease DAUGHTER Family history: Cardiovascular disease 19 FATHER Family history: Diabetes mellitus 19 FATHER G8 BROTHER G8 SISTER Family history: Hypertension 19 FATHER 19 MOTHER G8 BROTHER G8 BROTHER G8 SISTER G8 SISTER DAUGHTER SON Family history: Thyroid disorder DAUGHTER Heart disease 19 FATHER 19 MOTHER G8 BROTHER Hypercholesterolemia 19 FATHER 19 MOTHER G8 BROTHER G8 BROTHER G8 SISTER Myocardial infarction 19 FATHER 19 MOTHER G8 BROTHER No Family History of: Abdominal aortic aneurysm Robel's disease Alcoholism Aphasia Cancer of colon Chest pain Congenital heart disease Cystic fibrosis Dementia Dysphagia Family history: Allergy Family history: Alzheimer's disease Family history: Asthma Family history: Coronary thrombosis Family history: Gastrointestinal disease Family history: Glaucoma Family history: Osteoporosis Headache Hearing loss Hereditary disease History of - anemia History of - disorder History of - respiratory disease History of drug abuse Human immunodeficiency virus (HIV) seropositivity Infertile Kidney disease Malignant neoplasm of lung Parkinson's disease Prostate cancer Psychotic disorder Seizure disorder Stroke Tuberculosis Visual impairment CAD Over 55 Years Old PAST SURGICAL HISTORY: -CARDIAC CATHS--STENTS IN HEART AND IN LEGS. LAST CARDIAC CATH 03/03/20--PATENT STENTS/GRAFTS, NO INTERVENTION -CABG -LINQ DEVICE IMPLANTED -LUMBAR LAMINECTOMY -BILATERAL TOTAL KNEE REPLACEMENTS -EGD'S WITH DILATIONS--LAST ONE 10/2019. -HIATAL HERNIA REPAIR/MAURISIO FUNDOPLICATION 2004 - Physical Exam Vital Signs Vital Signs - First Documented 05/08/22 21:45 Temp 37.0 Pulse 88 Resp 16 B/P (MAP) 136/104 (115) Pulse Ox 98 O2 Delivery Room Air Capillary Refill : Height, Weight, BMI Height: 6'0" Weight: 180lbs. 4.0oz. 81.431592di; 23.00 BMI Method:Stated General Appearance: WD/WN, no apparent distress HEENT: PERRL/EOMI, normal ENT inspection Neck: normal inspection Cardiovascular: regular rate, rhythm, no edema, no murmur Respiratory: lungs clear, normal breath sounds, no respiratory distress Gastrointestinal: normal bowel sounds, non tender, soft Extremities: no pedal edema, other (Disfigurement of the right mid distal thigh consistent with femur fracture. Local edema present. Posterior and dorsal pedal pulses not palpable on either foot but are located easily with Doppler on the right foot in both the dorsal and posterior locations. Sensation intact and movement present in the toes. 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 A Ortho-Glass splint was fashioned posteriorly from the proximal thigh down past the knee to the upper ankle. Patient remained neurovascularly intact. He had sensation and movement of the toes. Dorsal and posterior pedal pulses remained detectable with Doppler. Hand-Made Type: orthoglass Splint Application: Short Leg Progress/Results/Core Measures Results/Orders Lab Results Laboratory Tests Test 05/08/22 21:48 Range/Units White Blood Count 10.8 4.3-11.0 10^3/uL Red Blood Count 4.55 4.30-5.52 10^6/uL Hemoglobin 12.8 L 13.3-17.7 g/dL Hematocrit 41 40-54 % Mean Corpuscular Volume 90 80-99 fL Mean Corpuscular Hemoglobin 28 25-34 pg Mean Corpuscular Hemoglobin Concent 31 L 32-36 g/dL Red Cell Distribution Width 14.0 10.0-14.5 % Platelet Count 420 H 130-400 10^3/uL Mean Platelet Volume 9.8 9.0-12.2 fL Immature Granulocyte % (Auto) 0 % Neutrophils (%) (Auto) 63 42-75 % Lymphocytes (%) (Auto) 28 12-44 % Monocytes (%) (Auto) 6 0-12 % Eosinophils (%) (Auto) 1 0-10 % Basophils (%) (Auto) 1 0-10 % Neutrophils # (Auto) 6.9 1.8-7.8 10^3/uL Lymphocytes # (Auto) 3.0 1.0-4.0 10^3/uL Monocytes # (Auto) 0.7 0.0-1.0 10^3/uL Eosinophils # (Auto) 0.2 0.0-0.3 10^3/uL Basophils # (Auto) 0.1 0.0-0.1 10^3/uL Immature Granulocyte # (Auto) 0.0 0.0-0.1 10^3/uL Prothrombin Time 17.4 H 12.2-14.7 SEC INR Comment 1.4 0.8-1.4 Activated Partial Thromboplast Time 36 H 24-35 SEC Sodium Level 138 135-145 MMOL/L Potassium Level 3.2 L 3.6-5.0 MMOL/L Chloride Level 101 98-107 MMOL/L Carbon Dioxide Level 20 L 21-32 MMOL/L Anion Gap 17 H 5-14 MMOL/L Blood Urea Nitrogen 17 7-18 MG/DL Creatinine 1.47 H 0.60-1.30 MG/DL Estimat Glomerular Filtration Rate 48 BUN/Creatinine Ratio 12 Glucose Level 292 H 70-105 MG/DL Calcium Level 9.6 8.5-10.1 MG/DL Corrected Calcium 9.4 8.5-10.1 MG/DL Total Bilirubin 0.6 0.1-1.0 MG/DL Aspartate Amino Transf (AST/SGOT) 14 5-34 U/L Alanine Aminotransferase (ALT/SGPT) 15 0-55 U/L Alkaline Phosphatase 91 40-136 U/L Total Protein 7.9 6.4-8.2 GM/DL Albumin 4.3 3.2-4.5 GM/DL My Orders Orders - RODOLFO CUELLO MD Cbc With Automated Diff (05/08/22 22:) Comprehensive Metabolic Panel (05/08/22:) Protime With Inr (05/08/22:) Partial Thromboplastin Time (05/08/22:) Chest 1 View, Ap/Pa Only (05/08/22 22:) Femur, Right, 2 Views (05/08/22:) Pelvis 1 To 2 Views (05/08/22 22:) Morphine Injection (Morphine Injection (05/08/22:) Morphine Injection (Morphine Injection (05/09/22 00:06) Medications Given in ED Current Medications Medications Dose Ordered Sig/Alka Route Start Time Stop Time Status Last Admin Dose Admin Morphine Sulfate 10 mg STK-MED ONCE .ROUTE 05/09/22 00:06 05/09/22 00:09 DC 05/09/22 00:10 10 MG Vital Signs/I&O 05/08/22 05/09/22 21:45 00:20 Temp 37.0 Pulse 88 90 Resp 16 16 B/P (MAP) 136/104 (115) 122/80 Pulse Ox 98 98 O2 Delivery Room Air Room Air Blood Pressure Mean: 115 Progress Progress Note #1: Time: 22:55 Progress Note Patient was found to have an isolated injury of comminuted distal right femur fracture with fracture line extending to the prosthetic knee. This will require referral to a traumatologist. I have contacted both [facility] who have stated this injury is beyond their scope of practice. Dr. Muniz at [facility] in [place] recommended attempting transfer to [facility] in [place] or [facility] in [place]. Both of these facilities are on transfer diversion and cannot accommodate this patient. I am now in conversation with the transfer center at [facility]. Patient's pain has been controlled with fentanyl and morphine. He is neurovascularly intact with easily located pulses in the right foot with Doppler. Sensation and movement in the foot are intact. Since patient is neurovascularly intact and pain is controlled, I have not attempted to reduce this complex fracture. Progress Note #2: Time: 23:33 Progress Note Patient was ultimately accepted for transfer to [facility], Dr. Kumar. More local transfer to [place] or [place] was not possible. Diagnostic Imaging Diagonstic Imaging: Xray Plain Films/CT/US/NM/MRI: leg (Right femur) Comments Right femur x-rays reviewed by me. Reports not yet available. There is a displaced comminuted fracture of the distal femur extending to the prosthetic knee. Diagonstic Imaging: Xray Plain Films/CT/US/NM/MRI: pelvis Comments Pelvis x-ray viewed by me. Report not yet available. Quality of film is poor but no acute fractures are identified. Diagonstic Imaging: Xray Plain Films/CT/US/NM/MRI: chest Comments Chest x-ray reviewed by me. Report not yet available. No acute changes when compared with prior were appreciated. Departure Impression Primary Impression: Closed right femoral fracture Qualified Codes: S72.351A - Displaced comminuted fracture of shaft of right femur, initial encounter for closed fracture Additional Impressions: Fall on same level Qualified Codes: W18.30XA - Fall on same level, unspecified, initial encounter Anticoagulated Disposition: 02 XFER SHT-TRM HOSP Condition: Stable Transfer Transfer Reason: Exceeds level of care Time Spoke to Accepting Phy: 23:15 Transfer Progress Notes Transfer accepted by Dr. Kumar to the trauma service. Transfer Time: 00:20 Transfer Facility: [facility] Method of Transfer: EMS Departure-Patient Inst. Referrals: ISRAEL AVALOS MD (PCP/Family) Primary Care Physician RODOLFO CUELLO MD May 08, 2022 22:23
[2022-05-08] MEDS ORDERED: morphine INJ 10 MG/ML 1ML (SYR OR VIAL) IVP STA (22:26)
[2022-05-09] MEDS ORDERED: morphine INJ 10 MG/ML 1ML (SYR OR VIAL) ONE (00:06)
[2022-05-09 00:20] VITALS: BP 122/80
--- NOTE | 2022-05-09 07:48 | Diagnostic Imaging Report ---
CHEST 1 VIEW, AP/PA ONLY Indication: Preoperative clearance for right femoral fracture Comparison: 02/26/2022 Findings: No focal airspace disease in the visualized lungs. No pleural effusion or pneumothorax. Normal cardiomediastinal silhouette. Stable changes of CABG. Impression: 1. No acute cardiopulmonary process by portable radiography. Dictated by: Dictated on workstation # [id number]
--- NOTE | 2022-05-09 07:58 | Diagnostic Imaging Report ---
FEMUR, RIGHT, 2 VIEWS INDICATION: Right lower leg pain COMPARISON: None available. TECHNIQUE: 2 views of right femur FINDINGS: There is an acute segmental type spiral fracture in the distal femoral shaft. The distal fracture fragment is significantly displaced anteriorly and has at least 30 degrees of lateral angulation. Extensive vascular calcifications are present. Total knee arthroplasty with patellar resurfacing has been performed. Proximal femurs are intact. IMPRESSION: 1. Significantly displaced and angulated distal femoral shaft fracture. 2. The fracture does not appear to involve the bone-prosthesis interface of the total knee arthroplasty. Dictated by: Dictated on workstation # [id number]
--- NOTE | 2022-05-09 07:58 | Diagnostic Imaging Report ---
PELVIS 1 TO 2 VIEWS INDICATION: Right femoral fracture COMPARISON: Right femur radiographs performed concurrently TECHNIQUE: Single AP view the pelvis FINDINGS: No displaced fracture in the proximal femurs. No diastases of the symphysis pubis or SI joints. Moderate to severe degenerative arthritis of both hips. IMPRESSION: No acute displaced fracture in the proximal femurs or pelvis. Dictated by: Dictated on workstation # [id number]
== END 2022-05-09 00:20 | disposition short-term general hospital (02) ==
LOC: EDUNIT# 21:45 → ER 21:46
DX: S72.401A Unspecified fracture of lower end of right femur, initial encounter for closed fracture (principal); I48.91 Unspecified atrial fibrillation; Z79.01 Long term (current) use of anticoagulants; Z87.891 Personal history of nicotine dependence; W01.0XXA Fall on same level from slipping, tripping and stumbling without subsequent striking against object, initial encounter; Y92.009 Unspecified place in unspecified non-institutional (private) residence as the place of occurrence of the external cause
CPT/HCPCS: 29505; 36415; 71045; 72170; 73552; 80053; 85025; 85610; 85730

== ENCOUNTER 2022-08-09 14:16 | Emergency (ER) | payer MEDICARE, MEDICAID ==
[~2022-08-09] VITALS: Ht 182.8 cm; Wt 75.0 kg
[~2022-08-09 14:16] MED LIST changes: +DIGO-16 PO; -DIGO-8 PO; +ENAL-66; +ENAL-66 PO; -ENLP5T
[2022-08-09 14:41] LABS: BASOPHILS % (AUTO) 1 % (0-10); EOSINOPHILS # (AUTO) 0.1 10^3/uL (0.0-0.3); EOSINOPHILS % (AUTO) 2 % (0-10); HEMATOCRIT 45 % (40-54); LYMPHOCYTES # (AUTO) 1.9 10^3/uL (1.0-4.0); LYMPHOCYTES % (AUTO) 27 % (12-44); MEAN CORPUSCULAR HEMOGLOBIN 29 pg (25-34); MEAN CORPUSCULAR HGB CONC 33 g/dL (32-36); MEAN CORPUSCULAR VOLUME 88 fL (80-99); MEAN PLATELET VOLUME 9.7 fL (9.0-12.2); MONOCYTES # (AUTO) 0.4 10^3/uL (0.0-1.0); MONOCYTES % (AUTO) 6 % (0-12); NEUTROPHILS # (AUTO) 4.3 10^3/uL (1.8-7.8); NEUTROPHILS % (AUTO) 64 % (42-75); PLATELET COUNT 290 10^3/uL (130-400); WHITE BLOOD COUNT 6.8 10^3/uL (4.3-11.0)
--- NOTE | 2022-08-09 14:45 | ED Cardiac General ---
History of Present Illness General Chief Complaint: Cardiac/General Problems Stated Complaint: AFIB Nursing Triage Note: PT AMB TO [facility] 6 WITH CANE WITH C/O BEING IN AFIB AND NOTICED IT THIS MORNING. PT DENIES CHEST PAIN Source: patient Exam Limitations: no limitations History of Present Illness Date Seen by Provider: Aug 09, 2022 Time Seen by Provider: 14:28 Initial Comments Patient is an 82yo male and presents to the ER with a concern for being in Afib. He has a history of afib and states he was checking his pulse ox earlier and his HR read 160. He denies any symptoms currently - no palpitations, no SOB no CP. Not feeling lightheaded or dizzy. Denies recent illnesses. States that he is compliant with his daily medications. Noted to be NSR currently rate 94. He is a diabetic and a smoker. Anticoagulated on eliquis. No other complaints. Timing/Duration: 1 hour Activities at Onset: none Prior CP/Workup: other (h/o afib) NTG SL FINANCIAL SERVICES AGENT: No ASA po FINANCIAL SERVICES AGENT: No Associated Systoms: Denies Symptoms Allergies and Home Medications Allergies Coded Allergies: celecoxib (Unverified Allergy, Mild, TAKES ASPIRIN AT HOME, 01/28/19) diclofenac (Unverified Allergy, Mild, TAKES ASPIRIN AT HOME, 01/28/19) naproxen (Unverified Allergy, Mild, TAKES ASPIRIN AT HOME, 01/28/19) rosuvastatin (Unverified Allergy, Mild, 01/28/19) Penicillins (Verified Allergy, Unknown, 01/28/19) amoxicillin (Verified Allergy, Unknown, 01/28/19) fenofibrate (Unverified Allergy, Unknown, 01/28/19) gemfibrozil (Unverified Allergy, Unknown, 10/15/19) simvastatin (Unverified Allergy, Unknown, 01/28/19) Patient Home Medication List Home Medication List Reviewed: Yes Albuterol Sulfate (Proventil Hfa) 6.7 Gm Hfa.aer.ad, 2 PUFF INH Q6H PRN for SHORTNESS OF BREATH, (Reported) Entered as Reported by: JHON PAZ on 02/27/22 1142 Apixaban (Eliquis) 5 Mg Tablet, 5 MG PO BID, (Reported) Entered as Reported by: CASTRO BURLESON on 07/23/16 1855 Aspirin (Aspirin EC) 81 Mg Tablet.dr, 81 MG PO DAILY Prescribed by: GURDEEP LOPEZ on 03/06/22 1238 Atorvastatin Calcium (Atorvastatin Calcium) 10 Mg Tablet, 10 MG PO HS Prescribed by: GURDEEP LOPEZ on 03/06/22 1238 Budesonide/Formoterol Fumarate (Symbicort 160-4.5 Mcg Inhaler) 160 Mcg-4.5 Mcg/Actuation Hfa.aer.ad, 2 PUFF INH BID PRN for SHORTNESS OF BREATH, (Reported) Entered as Reported by: JHON PAZ on 02/27/22 1142 Cyclobenzaprine HCl (Cyclobenzaprine HCl) 5 Mg Tablet, 5-10 MG PO TID PRN for MUSCLE CRAMPS, (Reported) Entered as Reported by: JHON PAZ on 02/27/22 1142 Diltiazem HCl (Cartia Xt) 240 Mg Cap.er.24h, 240 MG PO DAILY, (Reported) Entered as Reported by: JHON PAZ on 02/27/22 1142 Dronedarone HCl (Multaq) 400 Mg Tablet, 400 MG PO BID Prescribed by: GURDEEP LOPEZ on 03/06/22 1238 Fexofenadine HCl (Fexofenadine HCl) 60 Mg Tablet, 60 MG PO BID PRN for ALLERGY SYMPTOMS, (Reported) Entered as Reported by: JHON PAZ on 02/27/22 1142 Glipizide (Glipizide) 10 Mg Tablet, 10 MG PO DAILY, (Reported) Entered as Reported by: ARTIS GONSALES on 10/09/19 1537 Insulin Detemir (Levemir Flextouch) 100 Unit/1 Ml Insuln.pen, 35 UNITS SQ BID, (Reported) Entered as Reported by: CASTRO BURLESON on 12/21/14 0459 Ipratropium/Albuterol Sulfate (Iprat-Albut 0.5-3(2.5) mg/3 ml) 0.5 Mg-3 Mg (2.5 Mg Base)/3 Ml Ampul.neb, 3 ML NEB Q6H PRN for SHORTNESS OF BREATH, (Reported) Entered as Reported by: JHON PAZ on 02/27/22 1143 Pantoprazole Sodium (Protonix) 40 Mg Tablet.dr, 40 MG PO DAILY, (Reported) Entered as Reported by: JHON PAZ on 02/27/22 1142 Tamsulosin HCl (Flomax) 0.4 Mg Cap, 0.4 MG PO HS, (Reported) Entered as Reported by: JHON PAZ on 02/27/22 1142 Review of Systems Review of Systems Constitutional: see HPI EENTM: No Symptoms Reported Respiratory: No Symptoms Reported Cardiovascular: Irregular Heart Rate, Palpitations Gastrointestinal: No Symptoms Reported Genitourinary: No Symptoms Reported Musculoskeletal: no symptoms reported Skin: no symptoms reported Psychiatric/Neurological: No Symptoms Reported All Other Systems Reviewed Negative Unless Noted: Yes Past Rgeztma-Gjanld-Szrypq Hx Patient Social History Tobacco Use?: No Use of E-Cig and/or Vaping dev: No Substance use?: No Alcohol Use?: No Pt feels they are or have been: No Immunizations Up To Date Tetanus Booster (TDap): Less than 5yrs PED Vaccines UTD: No Influenza Vaccine Up-to-Date: Yes; Up-to-Date First/Initial COVID19 Vaccinat: 2020 Second COVID19 Vaccination Danilo: 2020 Third COVID19 Vaccination Date: 2020 Seasonal Allergies Seasonal Allergies: No Past Medical History Surgery/Hospitalization HX: CARDIAC CATHS-WITH STENT PLACEMENT--LAST CATH 03/03/[address] GARCIA: CONCLUSION: 1. Severe [place] coronary artery disease corrected with the patent 4 bypass grafts. 2. Patent stent in the proximal vein graft to the obtuse marginal branch with good flow distally 3. Patent vein graft to the diagonal artery, vein graft to the right coronary artery and AMANDA to LAD with excellent flow distally 4. Normal left ventricular size and systolic function estimated ejection fraction 60 percent DISCUSSION AND RECOMMENDATION: Medical therapy is recommended no intervention is needed CABG X 4 VESSEL LINQ DEVICE PLACED PERIPHERAL CATHS WITH STENTS IN LEGS BILATERAL TOTAL KNEE REPLACEMENTS LUMBAR LAMINECTOMY CHOLESYCTECTOMY CATARACT SURGERY EGD'S WITH ESOPHAGEAL DILATIONS--LAST ONE 10/[address] CESIA BURTON MAURISIO FUNDOPLICATION/HIATAL HERNIA REPAIR 2004 CAD,HTN,COPD, TIA, BPH, RENAL INSUFF, IDDM, ARTHRITIS, ANX. LONG HISTORY OF NON-COMPLIANCE Surgeries: Yes (CORONARY BYPASS X4;LINQ; BILAT TKR;STENTS IN LEGS;LUMBAR LAMINECTOMY) Abdominal, Angioplasty, Cardiac, CABG, Coronary Stent, Eye Surgery, Gallbladder, Joint Replacement, Open Heart Surgery, Orthopedic, Vascular Surgery Respiratory: Yes (CHRONIC DYSPNEA ON EXERTION) Sleep Apnea, COPD Currently Using CPAP: No Currently Using BIPAP: No Cardiac: Yes (LINQ DEVICE IN PLACE; S/P CABG; CARDIAC AND LEG STENTS;AFIB/FLUTTER) Atrial Fibrillation, Chronic Edema/Swelling, Coronary Artery Disease, Heart Attack, High Cholesterol, Hypertension, Peripheral Vascular Neurological: Yes (POSSIBLE STROKE/ TIA) Neuropathy, Stroke, TIA Reproductive Disorders: No Sexually Transmitted Disease: No HIV/AIDS: No Genitourinary: Yes (RENAL INSUFFICIENCY-NO DIALYSIS) Benign Prostatic Hyperpl, Prostate Problems, Renal Failure Gastrointestinal: Yes (GASTROPARESIS;ESOPHAGEAL STRICTURES) Abdominal Hernia, Gastroesophageal Reflux, Chronic Constipation, Diverticulosis, Pancreatitis, Polyps, Esophagitis, Hiatal Hernia, Gall Bladder Disease Musculoskeletal: Yes (OLECRANON BURSITIS, CHRONIC NECK PAIN, DISH SYNDROME;BILAT TKR) Degenerate Disk Disease, Arthritis, Chronic Back Pain Endocrine: Yes Diabetes, Insulin dep HEENT: Yes Cataract Loss of Vision: Denies Hearing Impairment: Denies Cancer: No Psychosocial: Yes Anxiety, Depression Integumentary: No Blood Disorders: Yes (Anemia) Adverse Reaction/Blood Tranf: No (N/A) Family Medical History Cancer G8 BROTHER Cataract 19 FATHER 19 MOTHER G8 BROTHER G8 BROTHER G8 SISTER Congestive heart failure 19 FATHER 19 MOTHER Family history: Arthritis 19 FATHER 19 MOTHER G8 BROTHER G8 BROTHER G8 SISTER G8 SISTER DAUGHTER SON Family history: Breast disease DAUGHTER Family history: Cardiovascular disease 19 FATHER Family history: Diabetes mellitus 19 FATHER G8 BROTHER G8 SISTER Family history: Hypertension 19 FATHER 19 MOTHER G8 BROTHER G8 BROTHER G8 SISTER G8 SISTER DAUGHTER SON Family history: Thyroid disorder DAUGHTER Heart disease 19 FATHER 19 MOTHER G8 BROTHER Hypercholesterolemia 19 FATHER 19 MOTHER G8 BROTHER G8 BROTHER G8 SISTER Myocardial infarction 19 FATHER 19 MOTHER G8 BROTHER No Family History of: Abdominal aortic aneurysm [place]'s disease Alcoholism Aphasia Cancer of colon Chest pain Congenital heart disease Cystic fibrosis Dementia Dysphagia Family history: Allergy Family history: Alzheimer's disease Family history: Asthma Family history: Coronary thrombosis Family history: Gastrointestinal disease Family history: Glaucoma Family history: Osteoporosis Headache Hearing loss Hereditary disease History of - anemia History of - disorder History of - respiratory disease History of drug abuse Human immunodeficiency virus (HIV) seropositivity Infertile Kidney disease Malignant neoplasm of lung Parkinson's disease Prostate cancer Psychotic disorder Seizure disorder Stroke Tuberculosis Visual impairment CAD Over 55 Years Old PAST SURGICAL HISTORY: -CARDIAC CATHS--STENTS IN HEART AND IN LEGS. LAST CARDIAC CATH 03/03/20--PATENT STENTS/GRAFTS, NO INTERVENTION -CABG -LINQ DEVICE IMPLANTED -LUMBAR LAMINECTOMY -BILATERAL TOTAL KNEE REPLACEMENTS -EGD'S WITH DILATIONS--LAST ONE 10/2019. -HIATAL HERNIA REPAIR/MAURISIO FUNDOPLICATION 2004 - Physical Exam Vital Signs Vital Signs - First Documented 08/09/22 14:26 Temp 35.7 Pulse 98 Resp 18 B/P (MAP) 136/94 (108) Pulse Ox 97 O2 Delivery Room Air Capillary Refill : Height, Weight, BMI Height: 6'0" Weight: 180lbs. 4.0oz. 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 Norm as Tested Skin: Normal Color, Warm/Dry Progress/Results/Core Measures Results/Orders Lab Results Laboratory Tests Test 08/09/22 14:30 Range/Units White Blood Count 6.8 4.3-11.0 10^3/uL Red Blood Count 5.16 4.30-5.52 10^6/uL Hemoglobin 15.0 13.3-17.7 g/dL Hematocrit 45 40-54 % Mean Corpuscular Volume 88 80-99 fL Mean Corpuscular Hemoglobin 29 25-34 pg Mean Corpuscular Hemoglobin Concent 33 32-36 g/dL Red Cell Distribution Width 13.5 10.0-14.5 % Platelet Count 290 130-400 10^3/uL Mean Platelet Volume 9.7 9.0-12.2 fL Immature Granulocyte % (Auto) 0 % Neutrophils (%) (Auto) 64 42-75 % Lymphocytes (%) (Auto) 27 12-44 % Monocytes (%) (Auto) 6 0-12 % Eosinophils (%) (Auto) 2 0-10 % Basophils (%) (Auto) 1 0-10 % Neutrophils # (Auto) 4.3 1.8-7.8 10^3/uL Lymphocytes # (Auto) 1.9 1.0-4.0 10^3/uL Monocytes # (Auto) 0.4 0.0-1.0 10^3/uL Eosinophils # (Auto) 0.1 0.0-0.3 10^3/uL Basophils # (Auto) 0.0 0.0-0.1 10^3/uL Immature Granulocyte # (Auto) 0.0 0.0-0.1 10^3/uL Sodium Level 140 135-145 MMOL/L Potassium Level 3.7 3.6-5.0 MMOL/L Chloride Level 105 98-107 MMOL/L Carbon Dioxide Level 26 21-32 MMOL/L Anion Gap 9 5-14 MMOL/L Blood Urea Nitrogen 9 7-18 MG/DL Creatinine 0.98 0.60-1.30 MG/DL Estimat Glomerular Filtration Rate 78 BUN/Creatinine Ratio 9 Glucose Level 297 H 70-105 MG/DL Calcium Level 9.9 8.5-10.1 MG/DL Magnesium Level 1.7 1.6-2.4 MG/DL My Orders Orders - RITA ISSA MD Ekg Tracing (08/09/22 14:28) Ed Iv/Invasive Line Start (08/09/22 14:36) Cbc With Automated Diff (08/09/22 14:36) Basic Metabolic Panel (08/09/22 14:36) Magnesium (08/09/22 14:36) Vital Signs/I&O 08/09/22 08/09/22 14:26 15:30 Temp 35.7 Pulse 98 77 Resp 18 B/P (MAP) 136/94 (108) 141/86 Pulse Ox 97 O2 Delivery Room Air Room Air Blood Pressure Mean: 108 Progress Progress Note : Time: 14:58 Progress Note Patient seen and evaluated by me. Evaluation today includes physical exam, EKG, CBC, basic metabolic panel and magnesium level. Pertinent physical exam findings include 82-year-old gentleman in no acute distress. Vital signs are stable heart rate in the 90s. Blood pressure is good oxygen saturations are 97 on room air. No increased work of breathing or respiratory distress. Abdomen is soft, nontender. Legs are supple no calf tenderness or edema. No focal neurologic deficits. Differential diagnosis includes atrial fibrillation, intermittent/rapid ventricular response. Electrolyte imbalance. Dehydration. Labs reviewed, CBC is normal, basic metabolic panel shows hyperglycemia consistent with his diabetes. Magnesium is within normal limits. EKG normal sinus rhythm at 94 bpm. Patient is not currently in A-fib or A-fib with RVR. Vital signs are stable. He is in no acute distress and has no other concomitant symptoms. Reassurance is provided. 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 No clinical or objective findings to warrant further studies from the emergency department. Chest x-ray considered however history and physical do not support the need at this time. Patient given strict return precautions. He verbalized understanding. All questions were sought and answered. Patient stable for discharge. Initial ECG Impression Date: Aug 09, 2022 Initial ECG Impression Time: 14:31 Initial ECG Rate: 94 Initial ECG Rhythm: Normal Sinus Initial ECG Intervals MA 179 QRS 100 QTc 417 Initial ECG Impression: Normal, Nonspecific Changes Departure Impression Primary Impression: Intermittent atrial fibrillation Disposition: 01 HOME, SELF-CARE Condition: Stable Departure-Patient Inst. Decision time for Depature: 14:57 Referrals: ZACKERY MARTINEZ MD (PCP) Primary Care Physician BISI GARCIA MD Patient Instructions: Atrial Fibrillation and Atrial Flutter ED Add. Discharge Instructions: Continue your daily medications as prescribed Drink plenty of fluids to stay well-hydrated If you have a recurrence of your atrial fibrillation especially with chest pain, shortness of breath, nausea or vomiting please return to the emergency room for reevaluation. Please keep all of your follow-up appointments as scheduled. RITA ISSA MD Aug 09, 2022 14:45
[2022-08-09 14:46] LABS: POTASSIUM 3.7 MMOL/L (3.6-5.0)
[2022-08-09 14:47] LABS: CALCIUM 9.9 MG/DL (8.5-10.1)
[2022-08-09 14:52] LABS: CREATININE SERUM 0.98 MG/DL (0.60-1.30)
[2022-08-09 14:54] LABS: MAGNESIUM 1.7 MG/DL (1.6-2.4)
[2022-08-09 15:30] VITALS: BP 141/86
== END 2022-08-09 15:30 | disposition home or self-care (01) ==
LOC: EDUNIT# 14:16 → ER 14:19
DX: I48.91 Unspecified atrial fibrillation (principal); E11.65 Type 2 diabetes mellitus with hyperglycemia; N19 Unspecified kidney failure; F17.200 Nicotine dependence, unspecified, uncomplicated; Z79.01 Long term (current) use of anticoagulants; Z91.A4 Caregiver's other noncompliance with patient's medication regimen; Z79.4 Long term (current) use of insulin
CPT/HCPCS: 36415; 80048; 83735; 85025; 93005

== ENCOUNTER 2022-12-27 02:08 | Emergency (ER) | payer MEDICARE, MEDICAID ==
[~2022-12-27] VITALS: Ht 180 cm; Wt 75.0 kg
[~2022-12-27 02:08] MED LIST changes: -ENAL10TA16 PO; +ENLP10T PO; -INSU100I29 SQ; +INSU100I30 SQ
--- NOTE | 2022-12-27 02:22 | ED Lower Extremity ---
General Chief Complaint: Lower Extremity Stated Complaint: LEFT KNEE PAIN Nursing Triage Note: PATIENT ARRIVED VIA EMS WITH COMPLAINT OF LEFT KNEE PAIN. PATIENT STATES WHEN HE GOT UP HE FELT OF POP IN HIS LEFT KNEE. HX OF RT KNEE REPLACEMENT. PATIENT AMBULATED WITH ASSISTANCE TO EMS COT. Source: patient, EMS Exam Limitations: no limitations History of Present Illness Date Seen by Provider: Dec 27, 2022 Time Seen by Provider: 02:10 Initial Comments Patient is an 82-year-old male who presents to the emergency room by ambulance chief complaint of left knee pain. Patient states that he was at home and getting up off the toilet when he felt and heard a loud pop in his left knee. Patient states that he fell to the ground on his right knee. He has had a previous right knee replacement and recent surgery to the right femur for fracture up at . Patient does have a history of cardiovascular disease with chronic anticoagulation. He states that his knee on the left hurts tonight around the knee. He denies numbness tingling or weakness in the left leg. EMS reported that he did need assistance with ambulation to the cot. He did not take anything for pain after the onset. He cannot recall what pain medications he is used in the past. Onset: just prior to arrival Severity: severe Pain/Injury Location: left knee Method of Injury: other (standing up from the toilet) Modifying Factors: Improves With Immobilization; Worse With Movement Allergies and Home Medications Allergies Coded Allergies: celecoxib (Unverified Allergy, Mild, TAKES ASPIRIN AT HOME, 01/28/19) diclofenac (Unverified Allergy, Mild, TAKES ASPIRIN AT HOME, 01/28/19) naproxen (Unverified Allergy, Mild, TAKES ASPIRIN AT HOME, 01/28/19) rosuvastatin (Unverified Allergy, Mild, 01/28/19) Penicillins (Verified Allergy, Unknown, 01/28/19) amoxicillin (Verified Allergy, Unknown, 01/28/19) fenofibrate (Unverified Allergy, Unknown, 01/28/19) gemfibrozil (Unverified Allergy, Unknown, 10/15/19) simvastatin (Unverified Allergy, Unknown, 01/28/19) Patient Home Medication List Home Medication List Reviewed: Yes Albuterol Sulfate (Proventil Hfa) 6.7 Gm Hfa.aer.ad, 2 PUFF INH Q6H PRN for SHORTNESS OF BREATH, (Reported) Entered as Reported by: JHON PAZ on 02/27/22 1142 Apixaban (Eliquis) 5 Mg Tablet, 5 MG PO BID, (Reported) Entered as Reported by: CASTRO BURLESON on 07/23/16 1855 Aspirin (Aspirin EC) 81 Mg Tablet.dr, 81 MG PO DAILY Prescribed by: GURDEEP LOPEZ on 03/06/22 1238 Atorvastatin Calcium (Atorvastatin Calcium) 10 Mg Tablet, 10 MG PO HS Prescribed by: GURDEEP LOPEZ on 03/06/22 1238 Budesonide/Formoterol Fumarate (Symbicort 160-4.5 Mcg Inhaler) 160 Mcg-4.5 Mcg/Actuation Hfa.aer.ad, 2 PUFF INH BID PRN for SHORTNESS OF BREATH, (Reported) Entered as Reported by: JHON PAZ on 02/27/22 1142 Cyclobenzaprine HCl (Cyclobenzaprine HCl) 5 Mg Tablet, 5-10 MG PO TID PRN for MUSCLE CRAMPS, (Reported) Entered as Reported by: JHON PAZ on 02/27/22 1142 Diltiazem HCl (Cartia Xt) 240 Mg Cap.er.24h, 240 MG PO DAILY, (Reported) Entered as Reported by: JHON PAZ on 02/27/22 1142 Dronedarone HCl (Multaq) 400 Mg Tablet, 400 MG PO BID Prescribed by: GURDEEP LOPEZ on 03/06/22 1238 Fexofenadine HCl (Fexofenadine HCl) 60 Mg Tablet, 60 MG PO BID PRN for ALLERGY SYMPTOMS, (Reported) Entered as Reported by: JHON PAZ on 02/27/22 1142 Glipizide (Glipizide) 10 Mg Tablet, 10 MG PO DAILY, (Reported) Entered as Reported by: ARTIS GONSALES on 10/09/19 1537 Insulin Detemir (Levemir Flextouch) 100 Unit/1 Ml Insuln.pen, 35 UNITS SQ BID, (Reported) Entered as Reported by: CASTRO BURLESON on 12/21/14 0459 Ipratropium/Albuterol Sulfate (Iprat-Albut 0.5-3(2.5) mg/3 ml) 0.5 Mg-3 Mg (2.5 Mg Base)/3 Ml Ampul.neb, 3 ML NEB Q6H PRN for SHORTNESS OF BREATH, (Reported) Entered as Reported by: JHON PAZ on 02/27/22 1143 Pantoprazole Sodium (Protonix) 40 Mg Tablet.dr, 40 MG PO DAILY, (Reported) Entered as Reported by: JHON PAZ on 02/27/22 1142 Tamsulosin HCl (Flomax) 0.4 Mg Cap, 0.4 MG PO HS, (Reported) Entered as Reported by: JHON PAZ on 02/27/22 1142 Review of Systems Constitutional: see HPI Respiratory: no symptoms reported Cardiovascular: no symptoms reported Gastrointestinal: no symptoms reported Genitourinary: no symptoms reported Musculoskeletal: joint pain (left knee) Skin: no symptoms reported Psychiatric/Neurological: No Symptoms Reported; Denies Numbness, Denies Paresthesia, Denies Weakness Past Oqpvxei-Fovpce-Zljekj Hx Immunizations Up To Date Tetanus Booster (TDap): Less than 5yrs PED Vaccines UTD: No First/Initial COVID19 Vaccinat: 2020 Second COVID19 Vaccination Danilo: 2020 Third COVID19 Vaccination Date: 2020 Seasonal Allergies Seasonal Allergies: No Past Medical History Surgery/Hospitalization HX: CARDIAC CATHS-WITH STENT PLACEMENT--LAST CATH 03/03/[address] GARCIA: CONCLUSION: 1. Severe [place] coronary artery disease corrected with the patent 4 bypass grafts. 2. Patent stent in the proximal vein graft to the obtuse marginal branch with good flow distally 3. Patent vein graft to the diagonal artery, vein graft to the right coronary artery and AMANDA to LAD with excellent flow distally 4. Normal left ventricular size and systolic function estimated ejection fraction 60 percent DISCUSSION AND RECOMMENDATION: Medical therapy is recommended no intervention is needed CABG X 4 VESSEL LINQ DEVICE PLACED PERIPHERAL CATHS WITH STENTS IN LEGS BILATERAL TOTAL KNEE REPLACEMENTS LUMBAR LAMINECTOMY CHOLESYCTECTOMY CATARACT SURGERY EGD'S WITH ESOPHAGEAL DILATIONS--LAST ONE 10/[address] CESIA BURTON MAURISIO FUNDOPLICATION/HIATAL HERNIA REPAIR 2004 CAD,HTN,COPD, TIA, BPH, RENAL INSUFF, IDDM, ARTHRITIS, ANX. LONG HISTORY OF NON-COMPLIANCE Surgeries: Yes (CORONARY BYPASS X4;LINQ; BILAT TKR;STENTS IN LEGS;LUMBAR LAMINECTOMY) Abdominal, Angioplasty, Cardiac, CABG, Coronary Stent, Eye Surgery, Gallbladder, Joint Replacement, Open Heart Surgery, Orthopedic, Vascular Surgery Respiratory: Yes (CHRONIC DYSPNEA ON EXERTION) Sleep Apnea, COPD Currently Using CPAP: No Currently Using BIPAP: No Cardiac: Yes (LINQ DEVICE IN PLACE; S/P CABG; CARDIAC AND LEG STENTS;AFIB/F LUTTER) Atrial Fibrillation, Chronic Edema/Swelling, Coronary Artery Disease, Heart Attack, High Cholesterol, Hypertension, Peripheral Vascular Neurological: Yes (POSSIBLE STROKE/ TIA) Neuropathy, Stroke, TIA Reproductive Disorders: No Sexually Transmitted Disease: No HIV/AIDS: No Genitourinary: Yes (RENAL INSUFFICIENCY-NO DIALYSIS) Benign Prostatic Hyperpl, Prostate Problems, Renal Failure Gastrointestinal: Yes (GASTROPARESIS;ESOPHAGEAL STRICTURES) Abdominal Hernia, Gastroesophageal Reflux, Chronic Constipation, Diverticulosis, Pancreatitis, Polyps, Esophagitis, Hiatal Hernia, Gall Bladder Disease Musculoskeletal: Yes (OLECRANON BURSITIS, CHRONIC NECK PAIN, DISH SYNDROME;BILAT TKR) Degenerate Disk Disease, Arthritis, Chronic Back Pain Endocrine: Yes Diabetes, Insulin dep HEENT: Yes Cataract Loss of Vision: Denies Hearing Impairment: Denies Cancer: No Psychosocial: Yes Anxiety, Depression Integumentary: No Blood Disorders: Yes (Anemia) Adverse Reaction/Blood Tranf: No (N/A) Family Medical History Cancer G8 BROTHER Cataract 19 FATHER 19 MOTHER G8 BROTHER G8 BROTHER G8 SISTER Congestive heart failure 19 FATHER 19 MOTHER Family history: Arthritis 19 FATHER 19 MOTHER G8 BROTHER G8 BROTHER G8 SISTER G8 SISTER DAUGHTER SON Family history: Breast disease DAUGHTER Family history: Cardiovascular disease 19 FATHER Family history: Diabetes mellitus 19 FATHER G8 BROTHER G8 SISTER Family history: Hypertension 19 FATHER 19 MOTHER G8 BROTHER G8 BROTHER G8 SISTER G8 SISTER DAUGHTER SON Family history: Thyroid disorder DAUGHTER Heart disease 19 FATHER 19 MOTHER G8 BROTHER Hypercholesterolemia 19 FATHER 19 MOTHER G8 BROTHER G8 BROTHER G8 SISTER Myocardial infarction 19 FATHER 19 MOTHER G8 BROTHER No Family History of: Abdominal aortic aneurysm Bacon's disease Alcoholism Aphasia Cancer of colon Chest pain Congenital heart disease Cystic fibrosis Dementia Dysphagia Family history: Allergy Family history: Alzheimer's disease Family history: Asthma Family history: Coronary thrombosis Family history: Gastrointestinal disease Family history: Glaucoma Family history: Osteoporosis Headache Hearing loss Hereditary disease History of - anemia History of - disorder History of - respiratory disease History of drug abuse Human immunodeficiency virus (HIV) seropositivity Infertile Kidney disease Malignant neoplasm of lung Parkinson's disease Prostate cancer Psychotic disorder Seizure disorder Stroke Tuberculosis Visual impairment CAD Over 55 Years Old PAST SURGICAL HISTORY: -CARDIAC CATHS--STENTS IN HEART AND IN LEGS. LAST CARDIAC CATH 03/03/20--PATENT STENTS/GRAFTS, NO INTERVENTION -CABG -LINQ DEVICE IMPLANTED -LUMBAR LAMINECTOMY -BILATERAL TOTAL KNEE REPLACEMENTS -EGD'S WITH DILATIONS--LAST ONE 10/2019. -HIATAL HERNIA REPAIR/MAURISIO FUNDOPLICATION 2004 - Physical Exam Vital Signs Vital Signs - First Documented 12/27/22 02:11 Temp 36.3 Pulse 64 Resp 18 B/P (MAP) 140/81 (100) O2 Delivery Room Air Capillary Refill : Less Than 3 Seconds Height, Weight, BMI Height: 6'0" Weight: 180lbs. 4.0oz. 81.865282wk; 23.00 BMI Method:Stated General Appearance: WD/WN, no apparent distress HEENT: PERRL/EOMI Respiratory: lungs clear, normal breath sounds, no respiratory distress, no accessory muscle use Gastrointestinal: normal bowel sounds, non tender, soft Hips: bilateral hip non-tender, bilateral hip normal inspection, bilateral hip normal range of motion, bilateral hip no evidence of injury Legs: bilateral leg non-tender, bilateral leg normal inspection, bilateral leg normal range of motion, bilateral leg no evidence of injury Knees: left knee other (no effusion or instability. no patella apprehension. mild medial joint line tenderness. no popliteal tenderness/masses; patient resists passive ROM quite strongly.) Ankles: bilateral ankle non-tender, bilateral ankle normal inspection, bilateral ankle normal range of motion, bilateral ankle no evidence of injury Feet: bilateral foot non-tender, bilateral foot normal inspection, bilateral foot normal range of motion, bilateral foot no evidence of injury Neurologic/Psychiatric: no motor/sensory deficits, alert, normal mood/affect, oriented x 3 Skin: normal color, warm/dry Progress/Results/Core Measures Results/Orders My Orders Orders - RITA ISSA MD Knee, Left, 3 Views (12/27/22 02:18) Tramadol Tablet (Ultram Tablet) (12/27/22 03:15) Vital Signs/I&O 12/27/22 02:11 Temp 36.3 Pulse 64 Resp 18 B/P (MAP) 140/81 (100) O2 Delivery Room Air Blood Pressure Mean: 100 Diagnostic Imaging Diagonstic Imaging: Xray Comments 3 views of the left knee independently reviewed and interpreted by me. No obvious bony fractures or dislocations. He does have a small effusion in the left knee joint. Departure Impression Primary Impression: Knee pain, left Qualified Codes: M25.562 - Pain in left knee Disposition: 01 HOME, SELF-CARE Condition: Stable Departure-Patient Inst. Decision time for Depature: 03:11 Referrals: ZACKERY MARTINEZ MD (PCP/Family) Primary Care Physician SACHA CHATTERJEE MD Patient Instructions: Knee Pain ED Add. Discharge Instructions: You can use an ice pack as needed to the left knee for discomfort. Take jvyt-ruc-[id number] extra strength Tylenol 2 tablets every 6 hours as needed for pain. You should call your orthopedic surgeon for a follow-up appointment regarding your pain. I have also given you contact information for our local orthopedic doctor, Dr. CHATTERJEE. Ambulate with your walker and cane as needed. Can also use [id number] Biofreeze or IcyHot for discomfort around the knee. Return to the emergency department for any new, concerning or emergent complaints. All discharge instructions reviewed with patient and/or family. Voiced understanding. Copy Copies To 1: ZACKERY MARTINEZ MD; SACHA CHATTERJEE MD, KATHRYN M MD Dec 27, 2022 02:22
[2022-12-27 03:19] VITALS: BP 136/83
--- NOTE | 2022-12-27 07:33 | Diagnostic Imaging Report ---
EXAMINATION: Left knee radiograph TECHNIQUE: AP, oblique, lateral views of the left knee obtained. HISTORY: pain in left knee with a "pop" when standing up from the toilet COMPARISON: None available. FINDINGS: Severe vascular calcifications. No acute fracture or dislocation of the left knee. Normal joint spaces. No joint effusion. No unexpected radiopaque foreign body. IMPRESSION: No acute fracture or dislocation of the left knee. Severe vascular calcification. Dictated by: Dictated on workstation # [id number]
== END 2022-12-27 03:19 | disposition home or self-care (01) ==
LOC: EDUNIT# 02:08 → ER 02:10
DX: M25.462 Effusion, left knee (principal); E11.40 Type 2 diabetes mellitus with diabetic neuropathy, unspecified; Z79.01 Long term (current) use of anticoagulants; Z96.653 Presence of artificial knee joint, bilateral; Z79.4 Long term (current) use of insulin
CPT/HCPCS: 73562

== ENCOUNTER 2023-01-21 12:07 | Emergency (ER) | payer MEDICARE, MEDICAID ==
[~2023-01-21] VITALS: Ht 180 cm; Wt 68.0 kg
[2023-01-21 12:46] LABS: BASOPHILS # (AUTO) 0.1 10^3/uL (0.0-0.1); BASOPHILS % (AUTO) 1 % (0-10); EOSINOPHILS # (AUTO) 0.2 10^3/uL (0.0-0.3); EOSINOPHILS % (AUTO) 2 % (0-10); HEMATOCRIT 42 % (40-54); HEMOGLOBIN 13.7 g/dL (13.3-17.7); LYMPHOCYTES % (AUTO) 21 % (12-44); MEAN CORPUSCULAR HEMOGLOBIN 30 pg (25-34); MEAN CORPUSCULAR HGB CONC 33 g/dL (32-36); MEAN CORPUSCULAR VOLUME 90 fL (80-99); MEAN PLATELET VOLUME 10.4 fL (9.0-12.2); MONOCYTES # (AUTO) 0.7 10^3/uL (0.0-1.0); MONOCYTES % (AUTO) 7 % (0-12); NEUTROPHILS # (AUTO) 6.5 10^3/uL (1.8-7.8); NEUTROPHILS % (AUTO) 69 % (42-75); PLATELET COUNT 298 10^3/uL (130-400); WHITE BLOOD COUNT 9.3 10^3/uL (4.3-11.0)
--- NOTE | 2023-01-21 12:48 | ED General ---
General Chief Complaint: General Problems/Pain Stated Complaint: WEAKNESS Nursing Triage Note: PT PRESENTS TO ED VIA EMS FROM HOME WITH COMPLAINTS OF MALAISE, GENERALIZED WEAKNESS, NAUSEA, AND LIGHT HEADEDNESS WHILE OUT WORKING ON HIS CAR AROUND 1100 TODAY. PT STATES HE FELT UNWELL WHEN HE WOKE UP THIS AM BUT WORSE WHEN STANDING OR EXERTING HIMSELF. PT DENIES V/D. Source of Information: Patient Exam Limitations: No Limitations (JAKY SIMMONS) History of Present Illness Date Seen by Provider: Jan 21, 2023 Time Seen by Provider: 12:41 Initial Comments 82yo M with PMH cardiac bypass surgery, CA, HTN, and NIDDM presents to the ED with c/o new onset weakness and dizziness/lightheadedness that started 1 hr prior to arrival. Pt states that he was working on his car outside when he suddenly started to feel weak, lightheaded, dizzy, and nauseous. Pt states that he also felt like heart was racing during this time. Pt states that he did not eat today and had only a bottle of water this morning. Pt notes that he had not been "feeling well" prior to this but felt well yesterday. In room, pt states that he still is feeling generalized weakness, lightheaded, and dizzy. States lightheadedness and dizziness is worse when sitting up and better when sitting/laying down. Nausea and palpitations have resolved. Pt took all prescribed medications this morning. LBM was yesterday and was normal. Admits to some midline abd pain but states it's chronic. Denies vomiting, current nausea, fevers, diaphoresis, cough, CP, SOB, worsening abd pain, changes in BM and voiding, and taking any medication for symptoms prior to arrival. Takes Eliquis daily. Timing/Duration: 1 Hour Severity: Mild Modifying Factors: improves with Movement Associated Systoms: No Chest Pain, No Cough, No Diaphoresis, No Fever/Chills, No Headaches; Nausea/Vomiting (nausea-resolved); No Shortness of Air; Weakness (generalized) (JAKY SIMMONS) Allergies and Home Medications Allergies Coded Allergies: celecoxib (Unverified Allergy, Mild, TAKES ASPIRIN AT HOME, 01/28/19) diclofenac (Unverified Allergy, Mild, TAKES ASPIRIN AT HOME, 01/28/19) naproxen (Unverified Allergy, Mild, TAKES ASPIRIN AT HOME, 01/28/19) rosuvastatin (Unverified Allergy, Mild, 01/28/19) Penicillins (Verified Allergy, Unknown, 01/28/19) amoxicillin (Verified Allergy, Unknown, 01/28/19) fenofibrate (Unverified Allergy, Unknown, 01/28/19) gemfibrozil (Unverified Allergy, Unknown, 10/15/19) simvastatin (Unverified Allergy, Unknown, 01/28/19) Patient Home Medication List Home Medication List Reviewed: Yes (JAKY SIMMONS) Home Medication List Reviewed: Yes (RITA ISSA MD) Albuterol Sulfate (Proventil Hfa) 6.7 Gm Hfa.aer.ad, 2 PUFF INH Q6H PRN for SHORTNESS OF BREATH, (Reported) Entered as Reported by: JHON PAZ on 02/27/22 1142 Apixaban (Eliquis) 5 Mg Tablet, 5 MG PO BID, (Reported) Entered as Reported by: CASTRO BURLESON on 07/23/16 1855 Aspirin (Aspirin EC) 81 Mg Tablet.dr, 81 MG PO DAILY Prescribed by: GURDEEP LOPEZ on 03/06/22 1238 Atorvastatin Calcium (Atorvastatin Calcium) 10 Mg Tablet, 10 MG PO HS Prescribed by: GURDEEP LOPEZ on 03/06/22 1238 Budesonide/Formoterol Fumarate (Symbicort 160-4.5 Mcg Inhaler) 160 Mcg-4.5 Mcg/Actuation Hfa.aer.ad, 2 PUFF INH BID PRN for SHORTNESS OF BREATH, (Reported) Entered as Reported by: JHON PAZ on 02/27/22 1142 Cyclobenzaprine HCl (Cyclobenzaprine HCl) 5 Mg Tablet, 5-10 MG PO TID PRN for MUSCLE CRAMPS, (Reported) Entered as Reported by: JHON PAZ on 02/27/22 1142 Diltiazem HCl (Cartia Xt) 240 Mg Cap.er.24h, 240 MG PO DAILY, (Reported) Entered as Reported by: JHON PAZ on 02/27/22 1142 Dronedarone HCl (Multaq) 400 Mg Tablet, 400 MG PO BID Prescribed by: GURDEEP LOPEZ on 03/06/22 1238 Fexofenadine HCl (Fexofenadine HCl) 60 Mg Tablet, 60 MG PO BID PRN for ALLERGY SYMPTOMS, (Reported) Entered as Reported by: JHON PAZ on 02/27/22 1142 Glipizide (Glipizide) 10 Mg Tablet, 10 MG PO DAILY, (Reported) Entered as Reported by: ARTIS GONSALES on 10/09/19 1537 Insulin Detemir (Levemir Flextouch) 100 Unit/1 Ml Insuln.pen, 35 UNITS SQ BID, (Reported) Entered as Reported by: CASTRO BURLESON on 12/21/14 0459 Ipratropium/Albuterol Sulfate (Iprat-Albut 0.5-3(2.5) mg/3 ml) 0.5 Mg-3 Mg (2.5 Mg Base)/3 Ml Ampul.neb, 3 ML NEB Q6H PRN for SHORTNESS OF BREATH, (Reported) Entered as Reported by: HJON PAZ on 02/27/22 1143 Pantoprazole Sodium (Protonix) 40 Mg Tablet.dr, 40 MG PO DAILY, (Reported) Entered as Reported by: JHON PAZ on 02/27/22 1142 Tamsulosin HCl (Flomax) 0.4 Mg Cap, 0.4 MG PO HS, (Reported) Entered as Reported by: JHON PAZ on 02/27/22 1142 Review of Systems Review of Systems Constitutional: No diaphoresis; dizziness; No fever; weakness EENTM: no symptoms reported Respiratory: no symptoms reported; No cough, No short of breath Cardiovascular: No chest pain; palpitations (resolved) Gastrointestinal: abdominal pain (chronic); No constipation, No diarrhea; nausea (resolved); No vomiting Genitourinary: no symptoms reported Musculoskeletal: no symptoms reported Skin: no symptoms reported Psychiatric/Neurological: No Symptoms Reported Hematologic/Lymphatic: No Symptoms Reported Immunological/Allergic: no symptoms reported (JAKY SIMMONS) All Other Systems Reviewed Negative Unless Noted: Yes (JAKY ISMMONS) Past Tugxusk-Tarill-Bgtcqy Hx Patient Social History Tobacco Use?: No Smoking Status: Former Smoker Substance use?: No Alcohol Use?: No Pt feels they are or have been: No (JAKY SIMMONS) Immunizations Up To Date Tetanus Booster (TDap): Less than 5yrs PED Vaccines UTD: No First/Initial COVID19 Vaccinat: 2020 Second COVID19 Vaccination Danilo: 2020 Third COVID19 Vaccination Date: 2020 (JAKY SIMMONS) Seasonal Allergies Seasonal Allergies: No (JAKY SIMMONS) Past Medical History Surgery/Hospitalization HX: CARDIAC CATHS-WITH STENT PLACEMENT--LAST CATH 03/03/[address] GARCIA: CONCLUSION: 1. Severe [place] coronary artery disease corrected with the patent 4 bypass grafts. 2. Patent stent in the proximal vein graft to the obtuse marginal branch with good flow distally 3. Patent vein graft to the diagonal artery, vein graft to the right coronary artery and AMANDA to LAD with excellent flow distally 4. Normal left ventricular size and systolic function estimated ejection fraction 60 percent DISCUSSION AND RECOMMENDATION: Medical therapy is recommended no intervention is needed CABG X 4 VESSEL LINQ DEVICE PLACED PERIPHERAL CATHS WITH STENTS IN LEGS BILATERAL TOTAL KNEE REPLACEMENTS LUMBAR LAMINECTOMY CHOLESYCTECTOMY CATARACT SURGERY EGD'S WITH ESOPHAGEAL DILATIONS--LAST ONE 10/[address] CESIA BURTON MAURISIO FUNDOPLICATION/HIATAL HERNIA REPAIR 2004 CAD,HTN,COPD, TIA, BPH, RENAL INSUFF, IDDM, ARTHRITIS, ANX. LONG HISTORY OF NON-COMPLIANCE Surgeries: Yes (CORONARY BYPASS X4;LINQ; BILAT TKR;STENTS IN LEGS;LUMBAR LAMINECTOMY) Abdominal, Angioplasty, Cardiac, CABG, Coronary Stent, Eye Surgery, Gallbladder, Joint Replacement, Open Heart Surgery, Orthopedic, Vascular Surgery Respiratory: Yes (CHRONIC DYSPNEA ON EXERTION) Sleep Apnea, COPD Currently Using CPAP: No Currently Using BIPAP: No Cardiac: Yes (LINQ DEVICE IN PLACE; S/P CABG; CARDIAC AND LEG STENTS;AFIB /FLUTTER) Atrial Fibrillation, Chronic Edema/Swelling, Coronary Artery Disease, Heart Attack, High Cholesterol, Hypertension, Peripheral Vascular Neurological: Yes (POSSIBLE STROKE/ TIA) Neuropathy, Stroke, TIA Reproductive Disorders: No Sexually Transmitted Disease: No HIV/AIDS: No Genitourinary: Yes (RENAL INSUFFICIENCY-NO DIALYSIS) Benign Prostatic Hyperpl, Prostate Problems, Renal Failure Gastrointestinal: Yes (GASTROPARESIS;ESOPHAGEAL STRICTURES) Abdominal Hernia, Gastroesophageal Reflux, Chronic Constipation, Diverticulosis, Pancreatitis, Polyps, Esophagitis, Hiatal Hernia, Gall Bladder Disease Musculoskeletal: Yes (OLECRANON BURSITIS, CHRONIC NECK PAIN, DISH SYNDROME;BILAT TKR) Degenerate Disk Disease, Arthritis, Chronic Back Pain Endocrine: Yes Diabetes, Insulin dep HEENT: Yes Cataract Loss of Vision: Denies Hearing Impairment: Denies Cancer: No Psychosocial: Yes Anxiety, Depression Integumentary: No Blood Disorders: Yes (Anemia) Adverse Reaction/Blood Tranf: No (N/A) (JAKY SIMMONS) Family Medical History Cancer G8 BROTHER Cataract 19 FATHER 19 MOTHER G8 BROTHER G8 BROTHER G8 SISTER Congestive heart failure 19 FATHER 19 MOTHER Family history: Arthritis 19 FATHER 19 MOTHER G8 BROTHER G8 BROTHER G8 SISTER G8 SISTER DAUGHTER SON Family history: Breast disease DAUGHTER Family history: Cardiovascular disease 19 FATHER Family history: Diabetes mellitus 19 FATHER G8 BROTHER G8 SISTER Family history: Hypertension 19 FATHER 19 MOTHER G8 BROTHER G8 BROTHER G8 SISTER G8 SISTER DAUGHTER SON Family history: Thyroid disorder DAUGHTER Heart disease 19 FATHER 19 MOTHER G8 BROTHER Hypercholesterolemia 19 FATHER 19 MOTHER G8 BROTHER G8 BROTHER G8 SISTER Myocardial infarction 19 FATHER 19 MOTHER G8 BROTHER No Family History of: Abdominal aortic aneurysm Gage's disease Alcoholism Aphasia Cancer of colon Chest pain Congenital heart disease Cystic fibrosis Dementia Dysphagia Family history: Allergy Family history: Alzheimer's disease Family history: Asthma Family history: Coronary thrombosis Family history: Gastrointestinal disease Family history: Glaucoma Family history: Osteoporosis Headache Hearing loss Hereditary disease History of - anemia History of - disorder History of - respiratory disease History of drug abuse Human immunodeficiency virus (HIV) seropositivity Infertile Kidney disease Malignant neoplasm of lung Parkinson's disease Prostate cancer Psychotic disorder Seizure disorder Stroke Tuberculosis Visual impairment CAD Over 55 Years Old PAST SURGICAL HISTORY: -CARDIAC CATHS--STENTS IN HEART AND IN LEGS. LAST CARDIAC CATH 03/03/20--PATENT STENTS/GRAFTS, NO INTERVENTION -CABG -LINQ DEVICE IMPLANTED -LUMBAR LAMINECTOMY -BILATERAL TOTAL KNEE REPLACEMENTS -EGD'S WITH DILATIONS--LAST ONE 10/2019. -HIATAL HERNIA REPAIR/MAURISIO FUNDOPLICATION 2004 - (JAKY SIMMONS) Physical Exam Vital Signs Vital Signs - First Documented 01/21/23 01/21/23 12:15 13:50 Pulse 63 Resp 24 B/P (MAP) 110/70 (83) 92/58 (69) 78/48 (58) Pulse Ox 98 (RITA ISSA MD) Vital Signs Capillary Refill : Less Than 3 Seconds (JAKY SIMMONS) Height, Weight, BMI Height: 6'0" Weight: 180lbs. 4.0oz. [id number]; 20.00 BMI Method:Stated General Appearance: No Apparent Distress, WD/WN HEENT: PERRL/EOMI Respiratory: Lungs Clear, Normal Breath Sounds, No Accessory Muscle Use, No Respiratory Distress Cardiovascular: Regular Rate, Rhythm, No Murmur Gastrointestinal: Non Tender, Soft, Other (diastasis recti) Neurologic/Psychiatric: Alert, Oriented x3, Normal Mood/Affect Skin: Normal Color, Warm/Dry Lymphatic: No Adenopathy (JAKY SIMMONS) Progress/Results/Core Measures Suspected Sepsis SIRS Temperature: Pulse: 63 Respiratory Rate: 24 Blood Pressure / Mean: (JAKY SIMMONS) Results/Orders Lab Results Laboratory Tests Test 01/21/23 12:12 01/21/23 12:54 Range/Units White Blood Count 9.3 4.3-11.0 10^3/uL Red Blood Count 4.62 4.30-5.52 10^6/uL Hemoglobin 13.7 13.3-17.7 g/dL Hematocrit 42 40-54 % Mean Corpuscular Volume 90 80-99 fL Mean Corpuscular Hemoglobin 30 25-34 pg Mean Corpuscular Hemoglobin Concent 33 32-36 g/dL Red Cell Distribution Width 13.2 10.0-14.5 % Platelet Count 298 130-400 10^3/uL Mean Platelet Volume 10.4 9.0-12.2 fL Immature Granulocyte % (Auto) 0 % Neutrophils (%) (Auto) 69 42-75 % Lymphocytes (%) (Auto) 21 12-44 % Monocytes (%) (Auto) 7 0-12 % Eosinophils (%) (Auto) 2 0-10 % Basophils (%) (Auto) 1 0-10 % Neutrophils # (Auto) 6.5 1.8-7.8 10^3/uL Lymphocytes # (Auto) 2.0 1.0-4.0 10^3/uL Monocytes # (Auto) 0.7 0.0-1.0 10^3/uL Eosinophils # (Auto) 0.2 0.0-0.3 10^3/uL Basophils # (Auto) 0.1 0.0-0.1 10^3/uL Immature Granulocyte # (Auto) 0.0 0.0-0.1 10^3/uL Sodium Level 134 L 135-145 MMOL/L Potassium Level 4.3 3.6-5.0 MMOL/L Chloride Level 100 98-107 MMOL/L Carbon Dioxide Level 20 L 21-32 MMOL/L Anion Gap 14 5-14 MMOL/L Blood Urea Nitrogen 17 7-18 MG/DL Creatinine 1.30 0.60-1.30 MG/DL Estimat Glomerular Filtration Rate 56 BUN/Creatinine Ratio 13 Glucose Level 305 H 70-105 MG/DL Calcium Level 9.7 8.5-10.1 MG/DL SARS-CoV-2 RNA (RT-PCR) Not Detected Not Detecte (RITA ISSA MD) My Orders Orders - RITA ISSA MD Ekg Tracing (01/21/23 12:14) Ed Iv/Invasive Line Start (01/21/23 12:37) Covid 19 Inhouse Test (01/21/23 12:37) Cbc With Automated Diff (01/21/23 12:38) Basic Metabolic Panel (01/21/23 12:38) Hydrocodone/Apap 5/325 Tablet (Hydrocod (01/21/23 13:15) Ns Iv 1000 Ml (Ns Iv 1000 Ml) (01/21/23 13:14) Orthostatic Vital Signs (Adult (01/21/23 13:42) (RITA ISSA MD) Medications Given in ED (RITA ISSA MD) Vital Signs/I&O 01/21/23 01/21/23 01/21/23 12:15 13:50 14:50 Pulse 63 64 70 66 71 Resp 24 24 B/P (MAP) 110/70 (83) 137/80 92/58 (69) 78/48 (58) Pulse Ox 98 98 (RITA ISSA MD) Vital Signs/I&O Capillary Refill : Less Than 3 Seconds (JAKY SIMMONS) Progress Note : Time: 14:33 Progress Note Patient seen and evaluated by me. I have reviewed the medical student's documentation and agree. My evaluation today includes physical exam, CBC, BMP, EKG, covid test and orthostatic VS. Pertinent physical exam findings - elderly gentleman in NAD, pleasant, affable in NAD. Heart is regular and lungs are clear. No focal neuro deficits. No unilateral weakness. No nystagmus. Essentially normal physical exam. ddx based on H&P - BPPV, dehydration, viral syndrome Labs, EKG independently reviewed and interpreted by me - CBC is normal, his BMP significant only for an elevated glucose of 305. HIs EKG reveals A flutter that is regular with a 3:1 conduction pattern. Orthostatics are completes and pos itive - on standing, his BP drops into the 70's systolic. Patient completed a liter of fluids and his BP was improved on standing and he was no longer symptomatic. I suspect dehydration to be a significant contributing factor as he responded so well to fluids. He had not yet eaten today prior to the ED visit. I encouraged him to drink his fluids and be very careful with position changes. No concerning findings for admsision or further work up from the ED. Patient advised to f/u with his PCP. is comfortable with the plan of care. (RITA ISSA MD) ECG Initial ECG Impression Date: Jan 21, 2023 Initial ECG Impression Time: 12:30 Initial ECG Rate: 62 Initial ECG Rhythm: A Fib/Flutter Comment Aflutter 3:1; no ST segment change (RITA ISSA MD) Departure Impression Primary Impression: Dehydration Additional Impression: Dizziness Disposition: 01 HOME, SELF-CARE Condition: Improved Departure-Patient Inst. Decision time for Depature: 14:33 (RITA ISSA MD) Referrals: ZACKERY MARTINEZ MD (PCP/Family) Primary Care Physician Patient Instructions: Dehydration, Adult ED Add. Discharge Instructions: Drink lots of fluids to stay well hydrated. This will help keep your blood pressure up when you stand. Take your time when changing positions - going fro laying to sitting and sitting to standing. Continue your home daily medications as prescribed. If you develop any worsening symptoms, especially with headache or fever - please return to the Emergency Department for re-evaluation. Verification and Attestation of Medical Student E/M Service A medical student performed and documented this service in my presence. I reviewed and verified all information documented by the medical student and made modifications to such information, when appropriate. I personally performed the physical exam and medical decision making. Rita Issa, Jan 21, 2023,14:37 (RITA ISSA MD) Copy Copies To 1: ZACKERY MARTINEZ MD, TAYLOR Jan 21, 2023 12:48 RITA SISA MD Jan 21, 2023 14:37
[2023-01-21 12:56] LABS: CALCIUM 9.7 MG/DL (8.5-10.1); CREATININE SERUM 1.3 MG/DL (0.60-1.30); POTASSIUM 4.3 MMOL/L (3.6-5.0)
[2023-01-21] MEDS ORDERED: NS IV 1000 ML 1,000 ML IV STA (13:14)
[2023-01-21] MEDS ORDERED: HYDROcodone/ACETAMINOPHEN 5 MG/325 MG TABLET PO ONE (13:15)
[2023-01-21 13:50] VITALS: BP_SYST 110; BP_SYST 78; BP_SYST 92; BP_DIAS 48; BP_DIAS 58; BP_DIAS 70
[2023-01-21 14:50] VITALS: BP 137/80
== END 2023-01-21 14:50 | disposition home or self-care (01) ==
LOC: EDUNIT# 12:07 → ER 12:08
DX: R42 Dizziness and giddiness (principal); E86.0 Dehydration; E11.40 Type 2 diabetes mellitus with diabetic neuropathy, unspecified; Z79.4 Long term (current) use of insulin; Z87.891 Personal history of nicotine dependence; Z20.822 Contact with and (suspected) exposure to COVID-19; Z79.01 Long term (current) use of anticoagulants
CPT/HCPCS: 36415; 80048; 85025; 87636; 93005